=== PATIENT | male | born 1945 | race Caucasian/White ===

== ENCOUNTER 2018-03-27 16:01 | Emergency (ER) | payer MEDICARE ==
[~2018-03-27] VITALS: Ht 177.8 cm; Wt 109.8 kg
[~2018-03-27 16:01] MED LIST: ALDACTONE25 MG PO; CLINDAMYCIN HC300 MG PO; CYCLOBENZAPRINE10 MG PO; FLONASE ALLERG9.9 ML NS; FLUTICASONE PRO15 GM TOP; LEVAQUIN500 MG PO; LEVOTHYROXINE25 MCG PO; LEVOTHYROXINE88 MCG PO; LISINOPRIL10 MG PO; LISINOPRIL5 MG PO; LORATADINE10 MG PO; METOPROLOL SUCC25 MG PO; MULTI VITAMIN1 EACH PO; NORCO 5-325 TA1 EACH PO; PREDNISONE20 MG PO; PROVENTIL HFA6.7 GM INH; SPIRIVA18 MCG INH; ST JOSEPH ASPIR81 MG PO; VITAMIN D5000 UNIT PO; ZITHROMAX500 MG PO
[2018-03-27] MEDS ORDERED: ENTRESTO 24 MG1 EACH PO (16:15)
--- NOTE | 2018-03-28 12:41 | EKG ---
[facility] [address] [place] [address] Signed Atrial-sensed ventricular-paced rhythm Abnormal ECG When compared with ECG of 20-JAN-2017 20:02, Vent. rate has decreased BY 8 BPM Confirmed by HAYDEN COTTON MD ([id number]) on 03/28/2018 12:40:53 PM Electronically Signed By: HAYDEN COTTON MD 03/28/18 1241 PATIENT NAME: EBERFRANCI MICHAEL Electrocardiogram DATE OF : 49 PHYSICIAN: HAYDEN COTTON MD REPORT #: [id number] REPORT IS CONFIDENTIAL AND NOT TO BE RELEASED WITHOUT AUTHORIZATION
== END 2018-03-27 19:14 | disposition home or self-care (01) ==
LOC: ED 16:01
DX: I95.2 Hypotension due to drugs (principal); T50.905A Adverse effect of unspecified drugs, medicaments and biological substances, initial encounter; I10 Essential (primary) hypertension; Z88.5 Allergy status to narcotic agent; Z88.8 Allergy status to other drugs, medicaments and biological substances; Z88.0 Allergy status to penicillin; Z79.899 Other long term (current) drug therapy; Z79.82 Long term (current) use of aspirin
CPT/HCPCS: 71046; 80053; 81001; 84484; 85025; 93005; 93010; 96360; 99285; J7030

== ENCOUNTER 2018-05-13 16:47 | Emergency (ER) | payer MEDICARE, OTHER ==
[~2018-05-13] VITALS: Ht 177.8 cm; Wt 108.5 kg
--- OUTSIDE RECORDS SUMMARY | ~2018-05-13 | XMS | Encounter Summary ---
Demographics + + + | Address | [address] | | | [place] [address] | + + + | Home Phone | | + + + | Preferred Language | Unknown | + + + | Marital Status | | + + + | Hindu Affiliation | Unknown | + + + | Race | Unknown | + + + | Ethnic Group | Unknown | + + + Author + + + | Author | [facility] | + + + | Organization | [facility] | + + + | Address | Unknown | + + + | Phone | Unavailable | + + + Support + + +---------+ + | Name | Relationship | Address | Phone | + + +---------+ + | Champ Abraham | ECON | Unknown | | + + +---------+ + Care Team Providers + +------+ + | Care Test Fixture Designer Name | Role | Phone | + +------+ + | Carla Juarez PA-C | PCP | | + +------+ + Encounter Details +--------+ + + + + | Date | Type | Department | Care Team | Description | +--------+ + + + + | 04/29/ | Documentati | [facility] | Indira Aamro, | | | 2018 | on Only | Neuro[facility] | MD Snatos Patel | | | | | [address] | [place] | | | | | [place] | [address] | | | | | [address] | | | | | | [phone] | | | +--------+ + + + [...] + + + as of this encounter Progress Notes Eugene Susanne N - 04/29/2018 3:30 PM PDTAnna referral- [facility] this enc ounter Plan of Treatment +--------+ + + + + | Date | Type | Specialty | Care Team | Description | +--------+ + + + + | 05/15/ | Documentati | Cardiology | | | | 2017 | on Only | | | | +--------+ + + + + | 05/15/ | Office | Cardiology | Gretchen Joy, | | | 2017 | Visit | | MD Santos [address]zo | | | | | | Dr [address], | | | | | | [place] [address] | | | | | | [phone] | | | | | | | | +--------+ + + + + | 06/05/ | Office | Pulmonology | Khalif Chambers | | | 2017 | Visit | | Joshua Boyle MD [address] | | | [address] | | | | | | [place] [address] | | | | | | [phone] | | | | | | | | +--------+ + + + + | 09/05/ | Office | Neurology | Indira Amaro, | | | 2018 | Visit | | [address] | | | | | | [place] | | | | | | [address] | | | | | | | | +--------+ + + + + as of this encounter Visit Diagnoses Not on filein this encounter"
--- OUTSIDE RECORDS SUMMARY | ~2018-05-13 | XMS | Encounter Summary ---
Demographics + + + | Address | [address] | | | [place] [address] | + + + | Home Phone | | + + + | Preferred Language | Unknown | + + + | Marital Status | | + + + | Spiritism Affiliation | Unknown | + + + | Race | Unknown | + + + | Ethnic Group | Unknown | + + + Author + + + | Author | [facility] | + + + | Organization | [facility] | + + + | Address | Unknown | + + + | Phone | Unavailable | + + + Support + + +---------+ + | Name | Relationship | Address | Phone | + + +---------+ + | Champ Abraham | ECON | Unknown | | + + +---------+ + Care Team Providers + +------+ + | Care Diabetes Clinical Manager Name | Role | Phone | + +------+ + | Carla Juarez PA-C | PCP | | + +------+ + Reason for Visit + + + | Reason | Comments | + + + | Cardiac | remote | | Resynchronization | | | Therapy - | | | Defibrillator | | + + + Encounter Details +--------+ + + + + | Date | Type | Department | Care Team | Description | +--------+ + + + + | 03/06/ | Documentati | [facility] | Fransisca Shoemaker Tamar | Cardiac | | 2018 | on Only | Cardiology [place] | | Resynchronization | | | | [address] | | Therapy - | | | | [place], [place] | | Defibrillator | | | | [address] | | (remote) | | | | [phone] | | | +--------+ + + + [...] + + as of this encounter Progress Fransisca Choi - 03/06/2018 8:00 AM PDTFormatting of this note may be different from tonya graham. ICD REMOTE INTERROGATION REPORT Name: Jared Abraham PCP: Carla Juarez : 1945 Primary cardiology provider: Gretchen Joy Primary electrophysiology provider: Constantin Chavez Device painter helper: [employer] Device type: Biventricular Battery Longevity: 5.5 yrs 2.98V RV Pacin.5% BiV Pacin.9% INTERROGATION RESULTS: Please see the full interrogation report attached Known history of atrial flutter or atrial fibrillation: No Current antithrombotic therapy including: N/A Mode switches: None. VT/VF Detections: None. Lead function: Lead impedance and threshold value trends have been reviewed and are stable. CHF: Congestive heart failure parameters and trends have been reviewed and slight increase, CHF nurse notified. Follow up: The next scheduled interrogation will be in 5 weeks via remote transmission. Additional comments: None. IMPRESSION: 1. Normal ICD function. 2. ATRIAL DEVICE FINDINGS: No atrial fibrillation/flutter noted. 3. No VT/VF therapies have been given since the last interrogation. Testing reviewed by: rough rice grader Fransisca Shoemaker , [facility] Cardiology Associated attestation - Mary Tipton NP - 03/11/2018 9:59 AM PDTAgree with interpretatio MORRO Alcantara in this encounter Plan of Treatment +--------+ [...] 2017 | Visit | | MD Santos Patel | | | | | | Dr [address], | | | | | | [place] [address] | | | | | | [phone] | | | | | | | | +--------+ + + + + | 06/05/ | Office | Pulmonology | Khalif Chambers | | | 2017 | Visit | | Joshua Boyle MD [address] | | | [address] | | | | | | [place] [address] | | | | | | [phone] | | | | | | | | +--------+ + + + + | 09/05/ | Office | Neurology | Indira Amaro, | | | 2018 | Visit | | MD Santos Patel | | | | | | [address] [place] [place] | | | | | | [address] | | | | | | | | +--------+ + + + + as of this encounter Visit Diagnoses + + | Diagnosis | + + | Non-ischemic cardiomyopathy - Primary | + + | Other primary cardiomyopathies | + +"
--- OUTSIDE RECORDS SUMMARY | ~2018-05-13 | XMS | Clinical Summary ---
Demographics + + + | Address | [address] | | | [place] [address] | + + + | Home Phone | | + + + | Preferred Language | Unknown | + + + | Marital Status | | + + + | Quaker Affiliation | Unknown | + + + | Race | Unknown | + + + | Ethnic Group | Unknown | + + + Author + + + | Author | [facility] | | | and [place] | + + + | Organization | [facility] | | | and [place] | + + + | Address | Unknown | + + + | Phone | Unavailable | + + + Support + + +---------+ + | Name | Relationship | Address | Phone | + + +---------+ + | Champ Velázquez | ECON | Unknown | | + + +---------+ + | JaradRadha | ECON | Unknown | | + + +---------+ + Care Team Providers + +------+ + | Care Call Center Supervisor Name | Role | Phone | + +------+ + | Carla Juarez | PP | | | Ondina JARVIS | | | + +------+ + Allergies [...] + + + Current Medications + + +---------+---------+------+------+-------+ | Prescription | Sig. | Disp. | Refills | Star | End | Statu | | | | | | t | Date | s | | | | | | Date | | | + + +---------+---------+------+------+-------+ | fluticasone | 1 spray by Nasal | | | | | Activ | | (FLONASE) 50 | route Daily. | | | | | e | | mcg/nasal spray | | | | | | | + + +---------+---------+------+------+-------+ | spironolactone | Take 25 mg by mouth | | | | | Activ | | (ALDACTONE) 25 mg | Daily. 1/2 tab daily | | | | | e | | tablet | | | | | | | + + +---------+---------+------+------+-------+ | metoprolol | Take 25 mg by mouth | | | | | Activ | | tartrate (LOPRESSOR) | Daily. | | | | | e | | 25 mg tablet | | | | | | | + + +---------+---------+------+------+-------+ | aspirin 81 mg EC | Take 81 mg by mouth | | | | | Activ | | tablet | Daily. | | | | | e | + + +---------+---------+------+------+-------+ | levothyroxine | Take one tablet | | | 02/1 | | Activ | | (SYNTHROID, | daily | | | 5/20 | | e | | LEVOTHROID) 75 MCG | | | | 16 | | | | tablet | | | | | | | + + +---------+---------+------+------+-------+ | tiotropium | Inhale contents of | 30 | 5 | 03/0 | | Activ | | (SPIRIVA HANDIHALER) | one capsule once | capsule | | 4/20 | | e | | 18 mcg inhalation | daily (do not | | | 16 | | | | capsule | swallow capsules) | | | | | | + + +---------+---------+------+------+-------+ | cetirizine | Take one tablet | | | | | Activ | | (ZYRTEC) 10 mg | daily | | | | | e | | tablet | | | | | | | + + +---------+---------+------+------+-------+ | albuterol 90 | Inhale 2 puffs into | | | | | Activ | | mcg/puff inhaler | the lungs every 6 | | | | | e | | | hours as needed for | | | | | | | | Wheezing. | | | | | | + + +---------+---------+------+------+-------+ Active Problems + + + | Problem [...] + + + +---+ | Non-ischemic cardiomyopathy (HCC) | | + +---+ + + | [...] | + + +------+ + | Ulcer Disease | Mother | | | + + [...] | | | | | (#1) | 8 | | | + + + + + Results Not on filefrom Last 3 Months Insurance + +--------+ +--------+ +---------+ | Payer | Benefi | Subscriber | Type | Phone | Address | | | t Plan | ID | | | | | | / | | | | | | | Group | | | | | + +--------+ +--------+ +---------+ | MEDICARE | MEDICA | [id number] | Medica | [phone] | | | RE | | re | [phone] | | | | PART A | | | | | | | AND B | | | | | + +--------+ +--------+ +---------+ | [employer] | TRANSA | [id number] | Indemn | | | | INSURANCE | MERICA | | ity | | | | | LIFE | | | | | | | MS | | | | | + +--------+ +--------+ +---------+ + +--------+ +--------+ + + | Guarantor Name | Accoun | Relation to | Date | Phone | Billing Address | | | t Type | Patient | of | | | | | | | | | | + +--------+ +--------+ + + | FRANCI VELÁQZUEZ | Person | Self [birth year] | Home: | [address] | | MICHAEL | al/Fam | | 1945 | [phone] [place] [address] | | | chas | | | 1964 | | + +--------+ +--------+ + +
--- OUTSIDE RECORDS SUMMARY | ~2018-05-13 | XMS | Clinical Summary ---
Demographics + + + | Address | [address] | | | [place] [address] | + + + | Home Phone | | + + + | Preferred Language | Unknown | + + + | Marital Status | | + + + | Christianity Affiliation | Unknown | + + + | Race | Unknown | + + + | Ethnic Group | Unknown | + + + Author + + + | Author | Bernarda FST21 | + + + | Organization | [facility] | + + + | Address | Unknown | + + + | Phone | Unavailable | + + + Support + + +---------+ + | Name | Relationship | Address | Phone | + + +---------+ + | Champ Velázquez | ECON | Unknown | | + + +---------+ + Care Team Providers + +------+ + | Care Cancer Program Consultant Name | Role | Phone | + +------+ + | Carla Juarez PA-C | PP | | + +------+ + Allergies + + + + + + | Active Allergy | Reactions | Severity | Noted | Comments | | | | | Date | | + + + + + + | Codeine | Anaphylaxis, Other | High | 11/12/19 | Heart stops | | | (See Comments) | | 14 | | + + + + + + | Meperidine | Other (See | High | 11/12/19 | Heart stops | | | Comments), | | 14 | | | | Angioedema | | | | + + + + + + | Nitroglycerin | Other (See Comments) | Medium | 11/12/19 | Liquid nitro Heart | | | | | 14 | stops | + + + + + + | Orphenadrine | Anaphylaxis, Other | High | 11/12/19 | Heart stops | | | (See Comments) | | 14 | | + + + + + + | Penicillins | Rash | Medium | 11/12/19 | | | | | | 14 | | + + + + + + | Oxycodone-Aspirin | Other (See Comments) | High | 09/17/19 | Heart Stops | | | | | 15 | | + + + + + [...] | | | Activ | | (SYNTHROID) 75 MCG | every morning | | | | | e | | tablet | before breakfast. Pt | | | | | | | | taking 88 mcg daily | | | | | | + + +--------+---------+------+------+-------+ | fluticasone | 1 spray by Each Nare | | | | | Activ | | (FLONASE) 50 MCG/ACT | route daily. | | | | | e | | nasal | | | | | | | + + +--------+---------+------+------+-------+ | Cholecalciferol | Take 5,000 Int'l | | | | | Activ | | (VITAMIN D3) [id number] | Units by mouth | | | | | e | | UNITS | daily. | | | | | | | CAPSIndications: | | | | | | | | once a week | | | | | | | + + +--------+---------+------+------+-------+ | loratadine | Take 10 mg by mouth | | | | | Activ | | (CLARITIN) 10 MG | daily. | | | | | e | | tablet | | | | | | | + + +--------+---------+------+------+-------+ | meloxicam (MOBIC) | Take 15 mg by mouth | | | | | Activ | | 15 MG tablet | daily. | | | | | e | + + +--------+---------+------+------+-------+ | lisinopril | TAKE TWO TABLETS BY | 60 | 2 | 04/3 | | Activ | | (ZESTRIL) 2.5 MG | MOUTH ONCE DAILY | tablet | | 0/20 | | e | | tablet | (HOLD FOR 2 | | | 18 | | | | | DAYS-START IF BLOOD | | | | | | | | PRESSURE STABLE | | | | | | | | AFTER THAT) | | | | | | + + +--------+---------+------+------+-------+ | metFORMIN | Take 500 mg by mouth | | | | | Activ | | (GLUCOPHAGE) 500 MG | daily. | | | | | e | | tablet | | | | | | | + + +--------+---------+------+------+-------+ | | Take 1 tablet by | 60 | 3 | 05/1 | | Activ | | sacubitril-valsartan | mouth 2 (two) times | tablet | | 6/20 | | e | | (ENTRESTO) 24-26 MG | daily. | | | 18 | | | | per tablet | | | | | | | + + +--------+---------+------+------+-------+ | metoprolol | TAKE ONE TABLET BY | 60 | 1 | 05/2 | | Activ | | (TOPROL-XL) 25 MG 24 | MOUTH ONCE DAILY | tablet | | 05/09 | | e | | hr tablet | | | | 18 | | | + + +--------+---------+------+------+-------+ | furosemide (LASIX) | TAKE ONE TABLET BY | 60 | 2 | / | | Activ | | 20 MG tablet | MOUTH ONCE DAILY | tablet | | 01/06 | | e | | | NEEDED | | | 18 | | | + + +--------+---------+------+------+-------+ Active Problems + + + | Problem | Noted Date | + + + | Morbid obesity (HCC) | 07/10/2017 | + + + + + | Overview: Weight loss was strongly encouraged. He needs to | | get involved in an exercise program. 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 Chiang in January | | 2009.Generator change by Dr. Delarosa in 2014 viva xt PICKER MACHINE OPERATOR D MDT | | number [id number].Patient has a 5076 atrial lead Medtronic. 6947 | | Sprint Quattro Medtronic RV lead and 4195 Starfix Medtronic LV | | lead. All leads were implanted in January 2010. Excellent chronic | | pacing and sensing thresholds were seen in all leads. | | Nonsustained VT was seen lasting for one second at 207 bpm and 3 | | atrial high rate episodes were also seen. Nothing sustained. | | Appropriate device function was seen. | + + + + + | Non-sustained ventricular tachycardia | 01/21/2017 | + + + | MOISÉS (obstructive [...] concentrator. Definitely needs to lose | | weight. | + + + + + | Nocturnal hypoxemia | 03/24/2016 | + + + | Dyspnea on exertion | 03/24/2016 | + + + | Allergic rhinitis | 03/24/2016 | + + + | Non-ischemic cardiomyopathy | 05/27/2015 | + + + + + | Overview: A cardiac catheterization in October 2008 revealed no | | significant coronary disease and the ejection fraction on the | | left ventriculogram was 15-20%. He had a left bundle branch | | block with a QRS duration of over 160 ms. A PICKER MACHINE OPERATOR defibrillator | | was subsequently placed by Dr. Chiang in 2009.Did not tolerate | | carvedilol because of hypotension. Have recommended increasing | | metoprolol succinate to 50 mg per day. The ejection fraction was | | 35% in April 2015. | + + + + + | S/P AAA repair | 09/24/2014 | + + + Resolved Problems + + + + | Problem | Noted | Resolved | | | Date | Date | + + + + | Hypotension | 01/22/20 | | | | 17 | 8 | + + + + + + | Overview: Has not tolerated much afterload reduction. | + + + + + + | AAA (abdominal aortic aneurysm) | 09/24/19 | | | | 15 | 8 | + + + + Encounters +--------+ + + + + | Date | Type | Specialty | Care Team | Description | +--------+ + + + + | 04/29/ | Documentati | | Indira Amaro, | | | 2017 | on Only | | MD | | +--------+ + + + + | 04/16/ | Ancillary | | Leanne Penaloza MD | Transient cerebral | | 2018 | Orders | | | ischemia, | | | | | | unspecified type | +--------+ + + + + | 04/10/ | Documentati | | Emely Simpson | Cardiac | | 2017 | on Only | | | Resynchronization | | | | | | Therapy - | | | | | | Defibrillator | +--------+ + + + + | 03/26/ | Telephone | | Sydeny Verma | | | 2017 | | | SANCHEZ Torrez | | +--------+ + + + + | 03/13/ | Refill | | Gretchen Joy, | Medication Refill | | 2017 | | | MD | | +--------+ + + + + | 03/13/ | Telephone | | Noreen Cohen | | | 2018 | | | ONI Hooks | | +--------+ + + + + | 03/06/ | Documentati | | Fransisca Shoemaker | Cardiac | | 2018 | on Only | | | Resynchronization | | | | | | Therapy - | | | | | | Defibrillator | | | | | | (remote) | +--------+ + + + + from Last 3 Months Family History + + +------+ + | [...] + | Blood Pressure | 102/50 | 01/02/2018 3:14 PM PDT | + + + + | Pulse | 103 | 01/02/2018 3:14 PM PDT | + + + + | Temperature | 36.4 C (97.6 F) | 06/13/2017 2:57 PM PDT | + + + + | Respiratory Rate | 18 | 03/16/2017 12:22 PM PDT | + + + + | Oxygen Saturation | 92% | 01/02/2018 3:14 PM PDT | + + + + | Inhaled Oxygen | - | - | | Concentration | | | + + + + | Weight | 114.2 kg (251 lb | 01/02/2018 3:14 PM PDT | | | 12.8 oz) | | + + + + | Height | 177.8 cm (5' 10") | 01/02/2018 3:14 PM PDT | + + + + | Body Mass Index | 36.13 | 01/02/2018 3:14 PM PDT | + + + + Plan of Treatment +--------+ + + + + | Date | Type | Specialty | Care Team | Description | +--------+ + + + + | 05/15/ | Documentati | | | | | 2017 | on Only | | | | +--------+ + + + + | 05/15/ | Office | | Gretchen Joy, | | | 2017 | Visit | | [address] | | | | | | Dr [place], | | | | | | [place] [address] | | | | | | [phone] | | | | | | | | +--------+ + + + + | 06/05/ | Office | | Khalif Chambers | | | 2017 | Visit | | Joshua Boyle MD [address] | | | | | | [address] | | | | | | [place] [address] | | | | | | [phone] | | | | | | | | +--------+ + + + + | 09/05/ | Office | | Indira Amaro, | | | 2018 | Visit | | [address] | | | | | | [place] | | | | | | [address] | | | | | | | [...] / Lot | + +--------+------+ +--------+--------+--------+ | Bomb Technician-D-05/17/2015Implanted: | Cardia | | MEDTRONIC - | | | | | 05/17/2015 by Uvaldo Delarosa | norm | | MEDT | | | /[id number] [...] | [id number] / | + +--------+------+ +--------+--------+--------+ Procedures + +--------+ + + + | Procedure Name | Priori | Date/Time | Associated Diagnosis | Comments | | | ty | | | | + +--------+ + + + | ECHO OUTSIDE | Routin | 04/16/2018 | Transient cerebral | Results for this | | INTERPRETATION | e | 8:10 AM | ischemia, | procedure are in the | | STANDARD | | PDT | unspecified type | results section. | + +--------+ + + + from Last 3 Months Results ECHO outside interpretation standard (04/16/2018 8:10 AM) + + + | Impressions | Performed At | + + + | 1. Overall left ventricular systolic function is moderately impaired | [facility] | | with, an EF between 35 - 40%. 2. The diastolic filling pattern | RADIOLOGY | | indicates impaired relaxation consistent with [...] to the previous echocardiographic study, done 09/25/17, there | | | are minor changes noted, as detailed below. | | + + + + + + | Narrative | Performed At | + + + | Patient Name: FRANCI VELÁZQUEZ Date of : 1945 | [facility] | | Performing Physician: LIZBET LYNN, | RADIOLOGY | | MD | | | INDICATIONS tia CONCLUSIONS 1. [...] done 09/25/17, there are minor changes noted, | | | as detailed below. FINDINGS -------- ECG rhythm: Sinus rhythm. | | | ECG rhythm: Ventricularly paced rhythm. Study: A 2-dimensional | | | transthoracic echocardiogram with m-mode, spectral and color flow | | | Doppler was perfomed. Study: This was a technically adequate study. | | | Left Ventricle: Overall left ventricular systolic function is | | | moderately impaired with, an EF between 35 - 40%, not significantly | | | changed from an EF of 30 - 35% on the prior study. Left Ventricle: | | | The left ventricle cavity size is normal, decreased in size (it was | | | mildly enlarged, measured at 6.3 cm at end-diastole) compared to the | | | previous exam. Left Ventricle: Left ventricular wall thickness is | | | normal. Left Ventricle: There is moderate global hypokinesis of LV | | | contractility. Left Ventricle: The diastolic filling pattern | | | indicates impaired relaxation consistent with mild dysfunction (Grade | | | I). Right Ventricle: The RV was not well visualized, but on limited | | | views, it appears to be normal in size, with normal systolic function. | | | Right Ventricle: Pacer/ICD wire seen. Left Atrium: The left atrium | | | is moderately dilated. This is slightly increased in size (4.5 cm, | | | LA volume index 37.88) compared to the previous exam. Right Atrium: | | | The right atrium is moderately enlarged, increased from mild RA | | | enlargement (although no measurements were reported on the prior | | | study). Right Atrium: Pacemaker wire seen in the right atrial | | | cavity. Aortic Valve: The aortic valve is not fully visualized, but | | | on limited views appears to most likely be trileaflet and structurally | | | normal. Aortic Valve: There is no evidence of aortic regurgitation | | | (there was trace AI on the prior study). Aortic Valve: There is no | | | evidence of aortic stenosis. Mitral Valve: The mitral valve is | | | normal. Mitral Valve: No mitral regurgitation (there was trace MR on | | | the prior study). Mitral Valve: No evidence of MVP. Tricuspid | | | Valve: The tricuspid valve appears structurally normal. Tricuspid | | | Valve: Trace tricuspid regurgitation present. Tricuspid Valve: | | | Pulmonary artery systolic pressure could not be assessed due to the | | | absence of adequate TR jet. Pulmonic Valve: The pulmonic valve was | | | not well visualized. Pulmonic Valve: Mild pulmonic regurgitation is | | | present, slightly increased from trace PI on the prior study. | | | Pericardium: There is no pericardial effusion. IVC/Hepatic Veins: The | | | IVC is normal size (1.5-2.5cm) and collapses >50% with sniff, | | | consistent with central venous pressures of 5-10mmHg. Aorta: The | | | aortic root and ascending aorta are normal. The aortic arch was not | | | well visualized. Mass: No mass visualized Thrombus: No clot | | | visualized Thrombus: No vegetation visualized. Septum: No [...] 4.65 cm LA/Ao: 1.21 TAPSE: 2.41 cm | | | AV maxP.90 mmHg AV meanP.40 mmHg AV Vmax: 1.21 | | | m/s AV Vmean: 0.87 m/s AV VTI: 23.83 cm GOPAL Vmax: 3.69 | | | cm2 GOPAL (VTI): 3.60 cm2 AVAI Vmax: 0.00 cm2/m2 AVAI | | | (VTI): 0.00 cm2/m2 LVOT maxP.10 mmHg LVOT meanPG: | | | 1.59 mmHg LVSI Dopp: 37.97 ml/m2 LVSV Dopp: 85.81 ml LVOT | | | Vmax: 0.88 m/s LVOT Vmean: 0.59 m/s LVOT VTI: 16.83 cm | | | MV A Frank: 0.65 m/s MV DecT: 257.92 ms MV E Frank: 0.47 m/s | | | MV E/A Ratio: 0.73 MV PHT: 74.79 ms MVA By PHT: 2.94 | | | cm2 Septal e': 0.04 m/s Septal E/e': 11.67 Lateral e': | | | 0.04 m/s Lateral E/e': 10.11 PV maxP.92 mmHg PV | | | Vmax: 0.99 m/s Button Sawyer: Authenticated by: LIZBET | | | MD SHANE Report Date/Time: -- 94_[id number]_[id number]:9:34 | | + + + + + | Procedure Note | + + | Mike, Rad Results In - 04/16/2018 7:10 PM PDT Patient Name: Silvia VELÁZQUEZ | | of : 1945ccession: [id number] Physician: LIZBET LYNN MD | | INDICATIONS tia | | CONCLUSIONS 1. Overall left ventricular systolic function [...] there are minor changes noted, as detailed below.FINDINGS--------ECG | | rhythm: Sinus rhythm. ECG rhythm: Ventricularly paced rhythm.Study: A 2-dimensional | | transthoracic echocardiogram with m-mode, spectral and color flow Doppler was perfomed. | | Study: This was a technically adequate study.Left Ventricle: Overall left ventricular | | systolic function is moderately impaired with, an EF between 35 - 40%, not significantly | | changed from an EF of 30 - 35% on the prior study. Left Ventricle: The left ventricle | | cavity size is normal, decreased in size (it was mildly enlarged, measured at 6.3 cm at | | end-diastole) compared to the previous exam. Left Ventricle: Left ventricular wall | | thickness is normal. Left Ventricle: There is moderate global hypokinesis of LV | | contractility. Left Ventricle: The diastolic filling pattern indicates impaired | | relaxation consistent with mild dysfunction (Grade I).Right Ventricle: The RV was not | | well visualized, but on limited views, it appears to be normal in size, with normal | | systolic function. Right Ventricle: Pacer/ICD wire seen.Left Atrium: The left atrium is | | moderately dilated. This is slightly increased in size (4.5 cm, LA volume index 37.88) | | compared to the previous exam.Right Atrium: The right atrium is moderately enlarged, | | increased from mild RA enlargement (although no measurements were reported on the prior | | study). Right Atrium: Pacemaker wire seen in the right atrial cavity.Aortic Valve: The | | aortic valve is not fully visualized, but on limited views appears to most likely be | | trileaflet and structurally normal. Aortic Valve: There is no evidence of aortic | | regurgitation (there was trace AI on the prior study). Aortic Valve: There is no | | evidence of aortic stenosis.Mitral Valve: The mitral valve is normal. Mitral Valve: No | | mitral regurgitation (there was trace MR on the prior study). Mitral Valve: No evidence | | of MVP.Tricuspid Valve: The tricuspid valve appears structurally normal. Tricuspid | | Valve: Trace tricuspid regurgitation present. Tricuspid Valve: Pulmonary artery systolic | | pressure could not be assessed due to the absence of adequate TR jet.Pulmonic Valve: | | The pulmonic valve was not well visualized. Pulmonic Valve: Mild pulmonic regurgitation | | is present, slightly increased from trace PI on the prior study.Pericardium: There is no | | pericardial effusion.IVC/Hepatic Veins: The IVC is normal size (1.5-2.5cm) and | | collapses >50% with sniff, consistent with central venous pressures of 5-10mmHg.Aorta: | | The aortic root and ascending aorta are normal. The aortic arch was not well | | visualized.Mass: No mass visualizedThrombus: No clot visualized Thrombus: No vegetation | | visualized.Septum: No ASD observed. Septum: No VSD observed.MEASUREMENTS Ao | | asc: 3.27 cmIVC: 2.44 cmEDV(Teich): 129.10 mlIVSd: 1.16 cmLVIDd: 5.19 cmLVPWd: | | 1.13 cmLVOT Area: 5.09 [id number] Diam: 2.54 cm%FS: 1.72 %EF(Teich): 3.94 | | %ESV(Teich): 124.01 mlLVIDs: 5.10 cmSV(Teich): 5.08 mlLVEF MOD A2C: 36.30 %SV | | MOD A2C: 106.51 mlLVEF MOD A4C: 36.62 %SV MOD A4C: 92.77 mlEF Biplane: 37.21 | | %LVEDV MOD BP: 274.16 mlLVESV MOD BP: 172.13 mlLVEDV MOD A2C: 293.38 mlLVLd A2C: | | 9.16 cmLVEDV MOD A4C: 253.33 mlLVLd A4C: 9.31 cmLVESV MOD A2C: 186.87 mlLVLs A2C: | | 8.32 cmLVESV MOD A4C: 160.55 mlLVLs A4C: 8.32 cmLAESV(A-L): 101.76 mlLAESV | | Index (A-L): 45.03 ml/m2LAAs A2C: 31.66 [id number] A-L A2C: 147.72 mlLALs A2C: | | 5.75 cmLAAs A4C: 21.81 [id number] A-L A4C: 68.38 mlLALs A4C: 5.90 cmRAAs: 25.43 | | [id number] A-L: 100.41 mlRAESV MOD: 92.04 mlRALs: 5.46 cmAo Diam: 3.82 cmLA Diam: | | 4.65 cmLA/Ao: 1.21 TAPSE: 2.41 cmAV maxP.90 mmHgAV meanP.40 mmHgAV | | Vmax: 1.21 m/Fabricio Vmean: 0.87 m/Fabricio VTI: 23.83 cmAVA Vmax: 3.69 cm2AVA (VTI): | | 3.60 [id number] Vmax: 0.00 cm2/m2AVAI (VTI): 0.00 cm2/m2LVOT maxP.10 mmHgLVOT | | meanP.59 mmHgLVSI Dopp: 37.97 ml/m2LVSV Dopp: 85.81 mlLVOT Vmax: 0.88 | | m/sLVOT Vmean: 0.59 m/sLVOT VTI: 16.83 cmMV A Frank: 0.65 m/sMV DecT: 257.92 msMV | | E Frank: 0.47 m/sMV E/A Ratio: 0.73 MV PHT: 74.79 msMVA By PHT: 2.94 [id number] e': | | 0.04 m/sSeptal E/e': 11.67 Lateral e': 0.04 m/sLateral E/e': 10.11 PV maxPG: | | 3.92 mmHgPV Vmax: 0.99 m/sSonographer: Authenticated by: Devan LEE | | Date/Time: -44_[id number]:9:34IMPRESSION:1. Overall left ventricular systolic | | function is moderately impaired with, an EF between 35 - 40%.2. The diastolic filling | | pattern indicates impaired relaxation consistent with mild dysfunction (Grade I).3. The | | RV was not well visualized, but on limited views, it appears to be normal in size, with | | normal systolic function.4. There is moderate bi-atrial enlargement. [...] |PV Vmax: 0.99 m/s | | | |Button Sawyer: | |Authenticated by: LIZBET LYNN MD | |Report Date/Time: -- 81_08-8-8102_97:9:34 | | | |IMPRESSION: | |1. Overall [...] n oted. 7. In comparison to the | |previous echocardiographic study, done 09/25/17, there are minor changes noted, as detailed b tu. | + + + + + + + | Performing | Address | City/State/Zipcode | Phone Number | | Organization | | | | + + + + + | [facility] | [address] | [place] [address] | | + + + + + from Last 3 Months Insurance + +--------+ +------+-------+ + | Payer | Benefi | Subscriber | Type | Phone | Address | | | t Plan | ID | | | | | | / | | | | | | | Group | | | | | + +--------+ +------+-------+ + | MEDICARE | MEDICA | [id number] | | | [address] | | | RE | | | | [place] [phone] | | | IP-OP | | | | | + +--------+ +------+-------+ + | COMMERCIAL OTHER | TRANSA | [id number] | | | | | | MERICA [...] Home: | [address] | | | brinda/Serjio | | 1945 | [phone] | [place] | | | chas | | | 1964 | [phone] | + +--------+ +--------+ + +
--- OUTSIDE RECORDS SUMMARY | ~2018-05-13 | XMS | Clinical Summary ---
Demographics + + + | Address | [address] | | | [place] [address] | + + + | Home Phone | | + + + | Preferred Language | Unknown | + + + | Marital Status | | + + + | Amish Affiliation | Unknown | + + + | Race | Unknown | + + + | Ethnic Group | Unknown | + + + Author + + + | Author | Bernarda Cashsquare | + + + | Organization | [facility] | + + + | Address | Unknown | + + + | Phone | Unavailable | + + + Support + + +---------+ + | Name | Relationship | Address | Phone | + + +---------+ + | Champ Velázquez | ECON | Unknown | | + + +---------+ + Care Team Providers + +------+ + | Care Cashier Credit Name | Role | Phone | + [...] | | Activ | | (VITAMIN D3) [id number] | Units by mouth | | | [...] pickleball, 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 Chiang in January | | 2009.Generator change by Dr. Delarosa in 2014 viva xt RADIOLOGICAL TECHNOLOGIST D MDT | | number [id number].Patient has a 5076 atrial lead Medtronic. 6947 [...] QRS duration of over 160 ms. A RADIOLOGICAL TECHNOLOGIST defibrillator | | was subsequently placed by [...] + | 03/26/ | Telephone | | Sydney Verma | | | 2017 | | [...] [place], | | | | | | [place] [address] | | | | | | [phone] | | | | | | | | +--------+ + + + + | 06/05/ | Office | | Khalif Chambers | | | 2017 | Visit | | Joshua Boyle MD [address] | | | | | | [address] | | | | | | [place] [address] | | | | | | [phone] | | | | | | | | +--------+ + + + + | 09/05/ | Office | | Indira Amaro, | | | 2018 | Visit | | [address] | | | | | | [place] | | | | | | [address] | | | | | | | [...] / Lot | + +--------+------+ +--------+--------+--------+ | Rag Washer-D-05/17/2015Implanted: | Cardia | | MEDTRONIC - | [...] FRANCI VELÁZQUEZ Date of : 1945 | [facility] | | Performing Physician: LIZBET LYNN, [...] PV | | | Vmax: 0.99 m/s Member Certification Manager: Authenticated by: LIZBET | | | MD SHANE Report Date/Time: -- 19_[id number]_37:9:34 | | + + + + + | Procedure Note | + + | Mike, Rad Results In - 04/16/2018 7:10 PM PDT Patient Name: Silvia VELÁZQUEZ | | of : 1945ccession: [id number] Physician: LIZBET LYNN MD | | INDICATIONS [...] cmLVPWd: | | 1.13 cmLVOT Area: 5.09 [id number] Diam: 2.54 cm%FS: 1.72 %EF(Teich): 3.94 | [...] | Index (A-L): 45.03 ml/m2LAAs A2C: 31.66 [id number] A-L A2C: 147.72 mlLALs A2C: | | 5.75 cmLAAs A4C: 21.81 [id number] A-L A4C: 68.38 mlLALs A4C: 5.90 cmRAAs: 25.43 | | [id number] A-L: 100.41 mlRAESV MOD: 92.04 mlRALs: 5.46 cmAo Diam: 3.82 cmLA Diam: | | 4.65 cmLA/Ao: 1.21 TAPSE: 2.41 cmAV maxP.90 mmHgAV meanP.40 mmHgAV | | Vmax: 1.21 m/Fabricio Vmean: 0.87 m/Fabricio VTI: 23.83 cmAVA Vmax: 3.69 cm2AVA (VTI): | | 3.60 [id number] Vmax: 0.00 cm2/m2AVAI (VTI): 0.00 cm2/m2LVOT maxP.10 mmHgLVOT | | meanP.59 mmHgLVSI Dopp: 37.97 ml/m2LVSV Dopp: 85.81 mlLVOT Vmax: 0.88 | | m/sLVOT Vmean: 0.59 m/sLVOT VTI: 16.83 cmMV A Frank: 0.65 m/sMV DecT: 257.92 msMV | | E Frank: 0.47 m/sMV E/A Ratio: 0.73 MV PHT: 74.79 msMVA By PHT: 2.94 [id number] e': | | 0.04 m/sSeptal E/e': 11.67 Lateral e': 0.04 m/sLateral E/e': 10.11 PV maxPG: | | 3.92 mmHgPV Vmax: 0.99 m/sSonographer: Authenticated by: Devan LEE | | Date/Time: -25_[id number]_[id number]:9:34IMPRESSION:1. Overall left ventricular systolic | | function [...] m/s | |AV VTI: 23.83 cm | |GOPLA Vmax: 3.69 cm2 | |GOPAL (VTI): 3.60 [...] |PV Vmax: 0.99 m/s | | | |Member Certification Manager: | |Authenticated by: LIZBET LYNN MD | |Report Date/Time: -- 22_17-8-0621_17:9:34 | | | |IMPRESSION: | |1. Overall [...] [facility] | [address] | [place] [address] | | + + + + + [...] +------+-------+ + | MEDICARE | MEDICA | [id number] | | | [address] | | | RE | | | | [place] [address] | | | IP-OP | | | | | + +--------+ +------+-------+ + | COMMERCIAL OTHER | TRANSA | [id number] | | | | | | MERICA [...] | chas | | | 1964 | [phone] | + +--------+ +--------+ + +
--- OUTSIDE RECORDS SUMMARY | ~2018-05-13 | XMS | Encounter Summary ---
Demographics + + + | Address | [address] | | | [place] [address] | + + + | Home Phone | | + + + | Preferred Language | Unknown | + + + | Marital Status | | + + + | Judaism Affiliation | Unknown | + + + | Race | Unknown | + + + | Ethnic Group | Unknown | + + + Author + + + | Author | [facility] [employer] [facility] | + + + | Organization | [facility] | + + + | Address | Unknown | + + + | Phone | Unavailable | + + + Support + + +---------+ + | Name | Relationship | Address | Phone | + + +---------+ + | Champ Abraham | ECON | Unknown | | + + +---------+ + Care Team Providers + +------+ + | Care Contact Person Name | Role | Phone | + +------+ + | Carla Juarez PA-C | PCP | | + +------+ + Reason for Visit + + + | Reason | Comments | + + + | Cardiac | | | Resynchronization | | | Therapy - | | | Defibrillator | | + + + Encounter Details +--------+ + + + + | Date | Type | Department | Care Team | Description | +--------+ + + + + | 04/10/ | Documentati | [facility] | Emely Simpson | Cardiac | | 2018 | on Only | Cardiology [place] | | Resynchronization | | | | [address] | | Therapy - | | | | [place], [place] | | Defibrillator | | | | [address] | | | | | | [phone] | | | +--------+ + + + [...] [place], | | | | | | [place] [address] | | | | | | [phone] | | | | | | | | +--------+ + + + + | 06/05/ | Office | Pulmonology | Khalif Chambers | | | 2017 | Visit | | MD Santos Mendoza | | | | | | [address] | | | | | | [place] [address] | | | | | | [phone] | | | | | | | | +--------+ + + + + | 09/05/ | Office | Neurology | Indira Amaro, | | | 2018 | Visit | | MD Santos Patel | | | | | | [place] | | | | | | [address] | | | | | | | | +--------+ + + + + as of this encounter Visit Diagnoses + + | Diagnosis | + + | Non-ischemic cardiomyopathy - Primary | + + | Other primary cardiomyopathies | + +"
--- OUTSIDE RECORDS SUMMARY | ~2018-05-13 | XMS | Encounter Summary ---
Demographics + + + | Address | [address] | | | [place] [address] | + + + | Home Phone | | + + + | Preferred Language | Unknown | + + + | Marital Status | | + + + | Islam Affiliation | Unknown | + + + | Race | Unknown | + + + | Ethnic Group | Unknown | + + + Author + + + | Author | [facility] [employer] | + + + | Organization | [facility] | + + + | Address | Unknown | + + + | Phone | Unavailable | + + + Support + + +---------+ + | Name | Relationship | Address | Phone | + + +---------+ + | Champ Abraham | ECON | Unknown | | + + +---------+ + Care Team Providers + +------+ + | Care Sql Tech Name | Role | Phone | + +------+ + | Carla Juarez PA-C | PCP | | + +------+ + Encounter Details +--------+ + + + + | Date | Type | Department | Care Team | Description | +--------+ + + + + | 03/13/ | Telephone | [facility] | Noreen Cohen | | | 2017 | | Cardiology [place] | ONI [facility]s | | | | | [address] | | | | | | [place] | | | | | | [address] | | | | | | [phone] | | | +--------+ + + + [...] Cardiology | Gretchen Joy, | | | 2018 | Visit | | MD Santos Patel | | | | | | Dr [place], | | | | | | [place] [address] | | | | | | [phone] | | | | | | | | +--------+ + + + + | 06/05/ | Office | Pulmonology | Khalif Chambers | | | 2017 | Visit | | MD Santos Mendoza | | | | | | [address] | | | | | | [place] [address] | | | | | | [phone] | | | | | | | | +--------+ + + + + | 09/05/ | Office | Neurology | Indira Amaro, | | | 2018 | Visit | | MD Santos Patel | | | | | | [place] | | | | | | [address] | | | | | | | | +--------+ + + + + as of this encounter Visit Diagnoses Not on filein this encounter"
--- OUTSIDE RECORDS SUMMARY | ~2018-05-13 | XMS | Encounter Summary ---
Demographics + + + | Address | [address] | | | [place] [address] | + + + | Home Phone | | + + + | Preferred Language | Unknown | + + + | Marital Status | | + + + | Yazdanism Affiliation | Unknown | + + + | Race | Unknown | + + + | Ethnic Group | Unknown | + + + Author + + + | Author | [facility] [employer] | + + + | Organization | [facility] | + + + | Address | Unknown | + + + | Phone | Unavailable | + + + Support + + +---------+ + | Name | Relationship | Address | Phone | + + +---------+ + | Champ Abraham | ECON | Unknown | | + + +---------+ + Care Team Providers + +------+ + | Care Director Clinical Research Name | Role | Phone | + +------+ + | Carla Juarez PA-C | PCP | | + +------+ + Encounter Details +--------+ + + + + | Date | Type | Department | Care Team | Description | +--------+ + + + + | 04/29/ | Documentati | [facility] | Indira Amaro, | | | 2018 | on Only | Neuroscience Center | MD Santos Patel | | | | | [address] | [place] | | | | | [place] | [address] | | | | | [address] | | | | | | [phone] | | | +--------+ + + + [...] as of this encounter Progress Notes Eugene Ssuanne N - 04/29/2018 3:30 PM PDTAnna referral- [facility] this enc ounter Plan of [...] [place], | | | | | | [place] [address] | | | | | | [phone] | | | | | | | | +--------+ + + + + | 06/05/ | Office | Pulmonology | Khalif Chambers | | | 2017 | Visit | | Joshua Boyle MD [address] | | | | | | [address] | | | | | | [place] [address] | | | | | | [phone] | | | | | | | | +--------+ + + + + | 09/05/ | Office | Neurology | Indira Amaro, | | | 2018 | Visit | | [address] | | | | | | [place] | | | | | | [address] | | | | | | | | +--------+ + + + + as of this encounter Visit Diagnoses Not on filein this encounter"
--- OUTSIDE RECORDS SUMMARY | ~2018-05-13 | XMS | Encounter Summary ---
Demographics + + + | Address | [address] | | | [place] [address] | + + + | Home Phone | | + + + | Preferred Language | Unknown | + + + | Marital Status | | + + + | Yazidi Affiliation | Unknown | + + + | Race | Unknown | + + + | Ethnic Group | Unknown | + + + Author + + + | Author | [facility] [employer] | + + + | Organization | [facility] | + + + | Address | Unknown | + + + | Phone | Unavailable | + + + Support + + +---------+ + | Name | Relationship | Address | Phone | + + +---------+ + | Champ Velázquez | ECON | Unknown | | + + +---------+ + Care Team Providers + +------+ + | Care Sheet Metal Roofer Name | Role | Phone | + +------+ + | Carla Juarez PA-C | PCP | | + +------+ + Encounter Details +--------+ + + + + | Date | Type | Department | Care Team | Description | +--------+ + + + + | 04/16/ | Ancillary | [facility] | Leanne Penaloza MD | Transient cerebral | | 2018 | Orders | ECHO | [address] | ischemia, | | | | | [place], [place] | unspecified type | | | | | [id number] | | | | | | | [...] 2017 | Visit | | MD Santos [address]arezethals | | | | | | Dr [place], | | | | | | [place] [address] | | | | | | [phone] | | | | | | | | +--------+ + + + + | 06/05/ | Office | Pulmonology | Khalif Chambers | | | 2017 | Visit | | Joshua Boyle MD [address] | | | | | | [address] [place] | | | | | | [place] [address] | | | | | | [phone] | | | | | | | | +--------+ + + + + | 09/05/ | Office | Neurology | Indira Amrao, | | | 2018 | Visit | | [address] | | | | | | [place] | | | | | | [address] | | | | | | | | +--------+ + + + + as of this encounter Results ECHO outside interpretation standard (04/16/2018 8:10 [...] FRANCI VELÁZQUEZ Date of : 1945 | [facility] | | Performing Physician: LIZBET LYNN, | RADIOLOGY | | | | | INDICATIONS tia [...] PV | | | Vmax: 0.99 m/s Haulpak Driver: Authenticated by: LIZBET | | | MD SHANE Report Date/Time: 20_[id number]:9:34 | | + + + + + | Procedure Note | + + | David Mckeon In - 04/16/2018 7:10 PM PDT Patient Name: Silvia VELÁZQUEZ | | of : 7Accession: [id number] Physician: LIZBET LYNN MD | | INDICATIONS [...] cmLVPWd: | | 1.13 cmLVOT Area: 5.09 ux2HZSE Diam: 2.54 cm%FS: 1.72 %EF(Teich): 3.94 | [...] | Index (A-L): 45.03 ml/m2LAAs A2C: 31.66 gg5TTKPC A-L A2C: 147.72 mlLALs A2C: | | 5.75 cmLAAs A4C: 21.81 lk3LAPKN A-L A4C: 68.38 mlLALs A4C: 5.90 cmRAAs: 25.43 | | vl2OITQY A-L: 100.41 mlRAESV MOD: 92.04 mlRALs: 5.46 cmAo Diam: 3.82 cmLA Diam: | | 4.65 cmLA/Ao: 1.21 TAPSE: 2.41 cmAV maxP.90 mmHgAV meanP.40 mmHgAV | | Vmax: 1.21 m/Fabricio Vmean: 0.87 m/Fabricio VTI: 23.83 cmAVA Vmax: 3.69 cm2AVA (VTI): | | 3.60 kf2BFPN Vmax: 0.00 cm2/m2AVAI (VTI): 0.00 cm2/m2LVOT maxP.10 mmHgLVOT | | meanP.59 mmHgLVSI Dopp: 37.97 ml/m2LVSV Dopp: 85.81 mlLVOT Vmax: 0.88 | | m/sLVOT Vmean: 0.59 m/sLVOT VTI: 16.83 cmMV A Frank: 0.65 m/sMV DecT: 257.92 msMV | | E Frank: 0.47 m/sMV E/A Ratio: 0.73 MV PHT: 74.79 msMVA By PHT: 2.94 nl8Qkbxze e': | | 0.04 m/sSeptal E/e': 11.67 Lateral e': 0.04 m/sLateral E/e': 10.11 PV maxPG: | | 3.92 mmHgPV Vmax: 0.99 m/sSonographer: Authenticated by: Devan LEE | | Date/Time: -- 62_[id number]:9:34IMPRESSION:1. Overall left ventricular systolic | | function [...] |PV Vmax: 0.99 m/s | | | |Haulpak Driver: | |Authenticated by: LIZBET LYNN MD | |Report Date/Time: 81_28-7-2019_81:9:34 | | | |IMPRESSION: | |1. Overall [...] | + + + + + | [facility] | [address] | [place] [address] | | + + + + + in this encounter Visit Diagnoses + + | Diagnosis | + + | Transient cerebral ischemia, unspecified type | + +"
--- OUTSIDE RECORDS SUMMARY | ~2018-05-13 | XMS | Encounter Summary ---
Demographics + + + | Address | [address] | | | [place] [address] | + + + | Home Phone | | + + + | Preferred Language | Unknown | + + + | Marital Status | | + + + | Adventism Affiliation | Unknown | + + + | Race | Unknown | + + + | Ethnic Group | Unknown | + + + Author + + + | Author | [facility] [employer] | + + + | Organization | [facility] | + + + | Address | Unknown | + + + | Phone | Unavailable | + + + Support + + +---------+ + | Name | Relationship | Address | Phone | + + +---------+ + | Champ Abraham | ECON | Unknown | | + + +---------+ + Care Team Providers + +------+ + | Care Railways Assistant Name | Role | Phone | [...] [place] | | | | | | [address] | | | | | | [phone] | | | +--------+ + + + [...] | | | | | | [place] [address] | | | | | | [phone] | | | | | | | | +--------+ + + + + | 06/05/ | Office | Pulmonology | Khalif Chambers | | | 2017 | Visit | | MD Santos Mendoza | | | | | | [address] | | | | | | [place] [address] | | | | | | [phone] | | | | | | | | +--------+ + + + + | 09/05/ | Office | Neurology | Indira Amaro, | | | 2018 | Visit | | MD Santos Patel | | | | | | [place] | | | | | | [address] | | | | | | | | +--------+ + + + + as of this encounter Visit Diagnoses Not on filein this encounter"
--- OUTSIDE RECORDS SUMMARY | ~2018-05-13 | XMS | Clinical Summary ---
Demographics + + + | Address | [address] | | | [place] [address] | + + + | Home Phone | | + + + | Preferred Language | Unknown | + + + | Marital Status | | + + + | Methodist Affiliation | Unknown | + + + | Race | Unknown | + + + | Ethnic Group | Unknown | + + + Author + + + | Author | [facility] | | | and [place] | + + + | Organization | [facility] | | | and [place] | [...] Providers + +------+ + | Care Director Payment Name | Role | Phone | + [...] +--------+ +---------+ | MEDICARE | MEDICA | [id number] | Medica | [phone] | | | RE | | re | [phone] | | | | PART A | | | | | | | AND B | | | | | + +--------+ +--------+ +---------+ | [employer] | TRANSA | [id number] | Indemn | | | | INSURANCE [...] MICHAEL | al/Fam | | 1945 | [phone] | [place] [address] | | | chas | | | 1964 | | + +--------+ +--------+ + +
--- OUTSIDE RECORDS SUMMARY | ~2018-05-13 | XMS | Encounter Summary ---
Demographics + + + | Address | [address] | | | [place] [address] | + + + | Home Phone | | + + + | Preferred Language | Unknown | + + + | Marital Status | | + + + | Methodist Affiliation | Unknown | + + + | Race | Unknown | + + + | Ethnic Group | Unknown | + + + Author + + + | Author | [facility] [employer] | + + + | Organization | [facility] | + + + | Address | Unknown | + + + | Phone | Unavailable | + + + Support + + +---------+ + | Name | Relationship | Address | Phone | + + +---------+ + | Champ Abraham | ECON | Unknown | | + + +---------+ + Care Team Providers + +------+ + | Care Car Repairer Apprentice Name | Role | Phone | + +------+ + | Carla Juarez PA-C | PCP | | + +------+ + Reason for Visit + + + | Reason | Comments | + + + | Medication Refill | | + + + Encounter Details +--------+--------+ + + + | Date | Type | Department | Care Team | Description | +--------+--------+ + + + | 03/13/ | Refill | [facility] | Gretchen Joy, | Medication Refill | | 2018 | | Cardiology [place] | MD [address] | | | | | [address] | [address] [place], | | | | | [facility] [address] | [place] [address] | | | | | [place] [address] | [phone] | | | | | [phone] | | | +--------+--------+ + + + [...] | | | | | | [place] [address] | | | | | | [phone] | | | | | | | | +--------+ + + + + | 06/05/ | Office | Pulmonology | Khalif Chambers | | | 2017 | Visit | | Joshua Boyle MD [address] | | | | | | [address] | | | | | | [place] [address] | | | | | | [phone] | | | | | | | | +--------+ + + + + | 09/05/ | Office | Neurology | Indira Amaro, | | | 2018 | Visit | | MD Santos Patel | | | | | | [place] | | | | | | [address] | | | | | | | | +--------+ + + + + as of this encounter Visit Diagnoses Not on filein this encounter"
--- OUTSIDE RECORDS SUMMARY | ~2018-05-13 | XMS | Encounter Summary ---
Demographics + + + | Address | [address] | | | [place] [address] | + + + | Home Phone | | + + + | Preferred Language | Unknown | + + + | Marital Status | | + + + | Quaker Affiliation | Unknown | + + + | Race | Unknown | + + + | Ethnic Group | Unknown | + + + Author + + + | Author | [facility] [employer] | + + + | Organization | [facility] | + + + | Address | Unknown | + + + | Phone | Unavailable | + + + Support + + +---------+ + | Name | Relationship | Address | Phone | + + +---------+ + | Champ Abraham | ECON | Unknown | | + + +---------+ + Care Team Providers + +------+ + | Care Molasses Coloring Operator Name | Role | Phone | [...] | 2018 | on Only | Cardiology [place] | | Resynchronization | | | | [address] | | Therapy - | | | | [place], [place] | | Defibrillator | | | | [address] | | | | | | [phone] | | | +--------+ + + + [...] | | | | | | [place] [address] | | | | | | [phone] | | | | | | | | +--------+ + + + + | 06/05/ | Office | Pulmonology | Khalif Chambers | | | 2017 | Visit | | MD Santos Mendoza | | | | | | [address] | | | | | | [place] [address] | | | | | | [phone] | | | | | | | | +--------+ + + + + | 09/05/ | Office | Neurology | Indira Amaro, | | | 2018 | Visit | | MD Santos Patel | | | | | | [place] | | | | | | [address] | | | | | | | | +--------+ + + + + as of this encounter Visit Diagnoses + + | Diagnosis | + + | Non-ischemic cardiomyopathy - Primary | + + | Other primary cardiomyopathies | + +"
--- OUTSIDE RECORDS SUMMARY | ~2018-05-13 | XMS | Encounter Summary ---
Demographics + + + | Address | [address] | | | [place] [address] | + + + | Home Phone | | + + + | Preferred Language | Unknown | + + + | Marital Status | | + + + | Episcopal Affiliation | Unknown | + + + | Race | Unknown | + + + | Ethnic Group | Unknown | + + + Author + + + | Author | [facility] [employer] | + + + | Organization | [facility] | + + + | Address | Unknown | + + + | Phone | Unavailable | + + + Support + + +---------+ + | Name | Relationship | Address | Phone | + + +---------+ + | Champ Abraham | ECON | Unknown | | + + +---------+ + Care Team Providers + +------+ + | Care Landfill Gas Collection System Operator Name | Role | Phone | [...] | 2018 | on Only | Cardiology [place] | | Resynchronization | | | | [address] | | Therapy - | | | | [place], [place] | | Defibrillator | | | | [address] | | (remote) | | | | [phone] | | | +--------+ + + + [...] Joy Primary electrophysiology provider: Constantin Chavez Device can pusher: Medtronic Device type: Biventricular Battery Longevity: 5.5 [...] since the last interrogation. Testing reviewed by: aircraft ordnance systems mechanic Fransisca Shoemaker , [facility] Associated attestation - Mary Tipton NP [...] [place], | | | | | | [place] [address] | | | | | | [phone] | | | | | | | | +--------+ + + + + | 06/05/ | Office | Pulmonology | Khalif Chambers | | | 2017 | Visit | | Joshua Boyle MD [address] | | | | | | [address] | | | | | | [place] [address] | | | | | | [phone] | | | | | | | | +--------+ + + + + | 09/05/ | Office | Neurology | Indira Amaro, | | | 2018 | Visit | | MD Santos Patel | | | | | | [place] | | | | | | [address] | | | | | | | | +--------+ + + + + as of this encounter Visit Diagnoses + + | Diagnosis | + + | Non-ischemic cardiomyopathy - Primary | + + | Other primary cardiomyopathies | + +"
--- OUTSIDE RECORDS SUMMARY | ~2018-05-13 | XMS | Encounter Summary ---
Demographics + + + | Address | [address] | | | [place] [address] | + + + | Home Phone | | + + + | Preferred Language | Unknown | + + + | Marital Status | | + + + | Christian Affiliation | Unknown | + + + | Race | Unknown | + + + | Ethnic Group | Unknown | + + + Author + + + | Author | [facility] [facility] | + + + | Organization | [facility] | + + + | Address | Unknown | + + + | Phone | Unavailable | + + + Support + + +---------+ + | Name | Relationship | Address | Phone | + + +---------+ + | Champ Abraham | ECON | Unknown | | + + +---------+ + Care Team Providers + +------+ + | Care Cargo Agent Name | Role | Phone | [...] [place], | | | | | [facility] [address] | [place] [address] | | | | | [place] [address] | [phone] | | | | | [phone] | | | +--------+--------+ + + + [...] | | | | | | [place] [address] | | | | | | [phone] | | | | | | | | +--------+ + + + + | 06/05/ | Office | Pulmonology | Khalif Chambers | | | 2017 | Visit | | Joshua Boyle MD [address] | | | | | | [address] | | | | | | [place] [address] | | | | | | [phone] | | | | | | | | +--------+ + + + + | 09/05/ | Office | Neurology | Indira Amaro, | | | 2018 | Visit | | MD Santos Patel | | | | | | [place] | | | | | | [address] | | | | | | | | +--------+ + + + + as of this encounter Visit Diagnoses Not on filein this encounter"
--- OUTSIDE RECORDS SUMMARY | ~2018-05-13 | XMS | Encounter Summary ---
Demographics + + + | Address | [address] | | | [place] [address] | + + + | Home Phone | | + + + | Preferred Language | Unknown | + + + | Marital Status | | + + + | Spiritism Affiliation | Unknown | + + + | Race | Unknown | + + + | Ethnic Group | Unknown | + + + Author + + + | Author | [facility] [employer] | + + + | Organization | [facility] | + + + | Address | Unknown | + + + | Phone | Unavailable | + + + Support + + +---------+ + | Name | Relationship | Address | Phone | + + +---------+ + | Champ Velázquez | ECON | Unknown | | + + +---------+ + Care Team Providers + +------+ + | Care Marksmanship Instructor Name | Role | Phone | [...] unspecified type | | | | | [id number] | | | | | | | [...] [place], | | | | | | [place] [address] | | | | | | [phone] | | | | | | | | +--------+ + + + + | 06/05/ | Office | Pulmonology | Khalif Chambers | | | 2017 | Visit | | Joshua Boyle MD [address] | | | | | | [address] [place] | | | | | | [place] [address] | | | | | | [phone] | | | | | | | | +--------+ + + + + | 09/05/ | Office | Neurology | Indira Amaro, | | | 2018 | Visit | | [address] | | | | | | [place] | | | | | | [address] | | | | | | | [...] FRANCI VELÁZQUEZ Date of : 1945 | [facility] | | Performing Physician: LIZBET [...] PV | | | Vmax: 0.99 m/s Steel Plate Printer: Authenticated by: LIZBET | | | MD SHANE Report Date/Time: [id number]:9:34 | | + + + + + | Procedure Note | + + | David Mckeon In - 04/16/2018 7:10 PM PDT Patient Name: Silvia VELÁZQUEZ | | of : 7Accession: [id number] Physician: LIZBET LYNN MD | | INDICATIONS [...] cmLVPWd: | | 1.13 cmLVOT Area: 5.09 xt7CDEL Diam: 2.54 cm%FS: 1.72 %EF(Teich): 3.94 | [...] | Index (A-L): 45.03 ml/m2LAAs A2C: 31.66 yr0LJOWZ A-L A2C: 147.72 mlLALs A2C: | | 5.75 cmLAAs A4C: 21.81 aj9QWPQA A-L A4C: 68.38 mlLALs A4C: 5.90 cmRAAs: 25.43 | | gi1DXVJQ A-L: 100.41 mlRAESV MOD: 92.04 mlRALs: 5.46 cmAo Diam: 3.82 cmLA Diam: | | 4.65 cmLA/Ao: 1.21 TAPSE: 2.41 cmAV maxP.90 mmHgAV meanP.40 mmHgAV | | Vmax: 1.21 m/Fabricio Vmean: 0.87 m/Fabricio VTI: 23.83 cmAVA Vmax: 3.69 cm2AVA (VTI): | | 3.60 nl3RRAR Vmax: 0.00 cm2/m2AVAI (VTI): 0.00 cm2/m2LVOT maxP.10 mmHgLVOT | | meanP.59 mmHgLVSI Dopp: 37.97 ml/m2LVSV Dopp: 85.81 mlLVOT Vmax: 0.88 | | m/sLVOT Vmean: 0.59 m/sLVOT VTI: 16.83 cmMV A Frank: 0.65 m/sMV DecT: 257.92 msMV | | E Frank: 0.47 m/sMV E/A Ratio: 0.73 MV PHT: 74.79 msMVA By PHT: 2.94 vj2Miqmme e': | | 0.04 m/sSeptal E/e': 11.67 Lateral e': 0.04 m/sLateral E/e': 10.11 PV maxPG: | | 3.92 mmHgPV Vmax: 0.99 m/sSonographer: Authenticated by: Devan LEE | | Date/Time: -- 08_72-2-8703_85:9:34IMPRESSION:1. Overall left ventricular systolic | | function [...] |PV Vmax: 0.99 m/s | | | |Steel Plate Printer: | |Authenticated by: LIZBET LYNN MD | |Report Date/Time: [id number]:9:34 | | | |IMPRESSION: | |1. Overall [...] | [address] | [place] [address] | | + + + + + in this encounter Visit Diagnoses + + | Diagnosis | + + | Transient cerebral ischemia, unspecified type | + +"
--- OUTSIDE RECORDS SUMMARY | ~2018-05-13 | XMS | Encounter Summary ---
Demographics + + + | Address | [address] | | | [place] [address] | + + + | Home Phone | | + + + | Preferred Language | Unknown | + + + | Marital Status | | + + + | Church Affiliation | Unknown | + + + | Race | Unknown | + + + | Ethnic Group | Unknown | + + + Author + + + | Author | [facility] [employer] | + + + | Organization | [facility] | + + + | Address | Unknown | + + + | Phone | Unavailable | + + + Support + + +---------+ + | Name | Relationship | Address | Phone | + + +---------+ + | Champ Abraham | ECON | Unknown | | + + +---------+ + Care Team Providers + +------+ + | Care Winding Inspector And Tester Name | Role | Phone | + +------+ + | Carla Juarez PA-C | PCP | | + +------+ + Encounter Details +--------+ + + + + | Date | Type | Department | Care Team | Description | +--------+ + + + + | 03/26/ | Telephone | [facility] | Sydney Verma | | | 2017 | | Cardiology Jessika Torrez CMA | | | | | [address] | | | | | | [place] | | | | | | [address] | | | | | | [phone] | | | +--------+ + + + [...] | | | | | | [place] [address] | | | | | | [phone] | | | | | | | | +--------+ + + + + | 06/05/ | Office | Pulmonology | Khalif Chambers | | | 2017 | Visit | | MD Santos Mendoza | | | | | | [address] | | | | | | [place] [address] | | | | | | [phone] | | | | | | | | +--------+ + + + + | 09/05/ | Office | Neurology | Indira Amaro, | | | 2018 | Visit | | MD Santos Patel | | | | | | [place] | | | | | | [address] | | | | | | | | +--------+ + + + + as of this encounter Visit Diagnoses Not on filein this encounter"
--- OUTSIDE RECORDS SUMMARY | ~2018-05-13 | XMS | Encounter Summary ---
Demographics + + + | Address | [address] | | | [place] [address] | + + + | Home Phone | | + + + | Preferred Language | Unknown | + + + | Marital Status | | + + + | Samaritan Affiliation | Unknown | + + + | Race | Unknown | + + + | Ethnic Group | Unknown | + + + Author + + + | Author | [employer] | + + + | Organization | [facility] | + + + | Address | Unknown | + + + | Phone | Unavailable | + + + Support + + +---------+ + | Name | Relationship | Address | Phone | + + +---------+ + | Champ Abraham | ECON | Unknown | | + + +---------+ + Care Team Providers + +------+ + | Care Solutions Sales Consultant Name | Role | Phone [...] [place] | | | | | | [address] | | | | | | [phone] | | | +--------+ + + + [...] | | | | | | [place] [address] | | | | | | [phone] | | | | | | | | +--------+ + + + + | 06/05/ | Office | Pulmonology | Khalif Chambers | | | 2017 | Visit | | MD Santos Mendoza | | | | | | [address] | | | | | | [place] [address] | | | | | | [phone] | | | | | | | | +--------+ + + + + | 09/05/ | Office | Neurology | Indira Amaro, | | | 2018 | Visit | | MD Santos Patel | | | | | | [place] | | | | | | [address] | | | | | | | | +--------+ + + + + as of this encounter Visit Diagnoses Not on filein this encounter"
[~2018-05-13 16:47] MED LIST changes: +ENTRESTO 24 MG1 EACH PO; +GLUCOPHAGE500 MG PO; +LASIX20 MG PO; +LIPITOR20 MG PO; +MAGNESIUM500 MG PO; +PLAVIX75 MG PO; +ZESTRIL2.5 MG PO
--- OUTSIDE RECORDS SUMMARY | 2018-05-13 16:52 | XMS ---
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 Josie VISIT COUNT (12 MO.) 3 [facility] TOTAL 3 NOTE: Visits indicate total known visits. ED/UCC VISIT TRACKING (12 MO.) 05/13/2018 16:48 [facility] TYPE: Emergency COMPLAINT: - HEADACHE/SWALLOWING PROBLEM/SPEECH PROBLEM 04/15/2018 16:25 [facility] [place] TYPE: Emergency COMPLAINT: - HEADACHE 03/27/2018 16:01 [facility] [place] TYPE: Emergency COMPLAINT: - BP PROBLEM DIAGNOSES: - Allergy status to narcotic agent status - Other superintendent container terminal (current) drug therapy - termination clerk (current) use of aspirin - Adverse effect of unspecified drugs, medicaments and biological substances, initial encounter - Hypotension due to drugs - Dizziness and giddiness - Allergy status to other drugs, medicaments and biological substances status - Essential (primary) hypertension - Allergy status to penicillin INPATIENT VISIT TRACKING (12 MO.) No inpatient visits to display in this time frame [id number]
--- NOTE | 2018-05-13 21:01 | EKG ---
[facility] [address] [facility] [place] [address] Signed Atrial-sensed ventricular-paced rhythm with frequent premature ventricular complexes Abnormal ECG When compared with ECG of 15-APR-2018 20:36, premature ventricular complexes are now present Vent. rate has increased BY 11 BPM Confirmed by HAYDEN COTTON MD ([id number]) on 05/13/2018 9:01:29 PM Electronically Signed By: HAYDEN COTTON MD 05/13/182100 PATIENT NAME: FRANCI VELÁZQUEZ Electrocardiogram DATE OF : 49 PHYSICIAN: HAYDEN COTTON MD REPORT #: [id number] REPORT IS CONFIDENTIAL AND NOT TO BE RELEASED WITHOUT AUTHORIZATION
== END 2018-05-13 18:30 | disposition home or self-care (01) ==
LOC: ED 16:47
DX: G45.9 Transient cerebral ischemic attack, unspecified (principal); I95.9 Hypotension, unspecified; I10 Essential (primary) hypertension; Z88.5 Allergy status to narcotic agent; Z88.8 Allergy status to other drugs, medicaments and biological substances; Z88.0 Allergy status to penicillin; Z79.01 Long term (current) use of anticoagulants; Z79.899 Other long term (current) drug therapy; Z79.84 Long term (current) use of oral hypoglycemic drugs; Z79.82 Long term (current) use of aspirin
CPT/HCPCS: 70450; 71045; 80053; 85025; 85610; 93005; 93010; 96360; 99285; J7030

== ENCOUNTER 2018-08-17 17:03 | Emergency (ER) | payer MEDICARE, OTHER ==
[~2018-08-17] VITALS: Ht 177.8 cm; Wt 108.5 kg
[2018-08-17] MEDS ORDERED: DIGITEK250 MCG PO (17:22)
--- OUTSIDE RECORDS SUMMARY | 2018-08-17 19:49 | XMS ---
PreManage Notification: FRANCI VELÁZQUEZ Security Remediation Consultant Events No recent Security Events currently on file CRITERIA MET - Group Notification [facility] Physician 04/16/2018-Current PHONE: [phone] [place] has no Care Guidelines for this patient. ETina VISIT COUNT (12 MO.) 4 RANJAN Colin TOTAL 4 NOTE: Visits indicate total known visits. ED/UCC VISIT TRACKING (12 MO.) 08/17/2018 17:04 [facility] [place] TYPE: Emergency COMPLAINT: - CHEST PAINS 05/13/2018 16:48 [facility] [place] TYPE: Emergency COMPLAINT: - STROKE LIKE SYMPTOMS DIAGNOSES: - Slurred speech - termite technician (current) use of anticoagulants - Allergy status to narcotic agent status - Allergy status to penicillin - assisted (current) use of aspirin - termite technician (current) use of oral hypoglycemic drugs - Allergy status to other drugs, medicaments and biological substances status - Transient cerebral ischemic attack, unspecified - Other intermediate (current) drug therapy - Essential (primary) hypertension - Hypotension, unspecified 04/15/2018 16:25 [facility] [place] TYPE: Emergency COMPLAINT: - HEADACHE 03/27/2018 16:01 [facility] [place] TYPE: Emergency COMPLAINT: - BP PROBLEM DIAGNOSES: - Allergy status to narcotic agent status - Other intermediate (current) drug therapy - termite technician (current) use of aspirin - Adverse effect of unspecified drugs, medicaments and biological substances, initial encounter - Hypotension due to drugs - Dizziness and giddiness - Allergy status to other drugs, medicaments and biological substances status - Essential (primary) hypertension - Allergy status to penicillin INPATIENT VISIT TRACKING (12 MO.) No inpatient visits to display in this time frame [email or web address]
--- NOTE | 2018-08-18 06:00 | EKG ---
[facility] [address] [place] [address] Signed Suspect unspecified pacemaker failure Atrial-sensed ventricular-paced rhythm Abnormal ECG When compared with ECG of 13-MAY-2018 17:06, premature ventricular complexes are no longer present Vent. rate has decreased BY 13 BPM Confirmed by KATRIN DELA CRUZ MD ([id number]) on 08/18/2018 6:00:26 AM Electronically Signed By: KATRIN DELA CRUZ MD 08/18/18 0600 PATIENT NAME: FRANCI VELÁZQUEZ Electrocardiogram DATE OF : 49 PHYSICIAN: KATRIN DELA CRUZ MD REPORT #: [id number] REPORT IS CONFIDENTIAL AND NOT TO BE RELEASED WITHOUT AUTHORIZATION
== END 2018-08-17 21:09 | disposition short-term general hospital (02) ==
LOC: ED 17:03
DX: R07.9 Chest pain, unspecified (principal); R55 Syncope and collapse; Z95.0 Presence of cardiac pacemaker; Z88.5 Allergy status to narcotic agent; Z88.0 Allergy status to penicillin; Z88.8 Allergy status to other drugs, medicaments and biological substances; Z79.899 Other long term (current) drug therapy
CPT/HCPCS: 36415; 71045; 80053; 80162; 83690; 83880; 84484; 85025; 85610; 93005; 93010; 96374; 99285-25; J2270

== ENCOUNTER 2019-01-20 03:59 | Emergency (ER) | payer MEDICARE, OTHER ==
[~2019-01-20] VITALS: Ht 177.8 cm; Wt 108.8 kg
--- OUTSIDE RECORDS SUMMARY | ~2019-01-20 | XMS | Encounter Summary ---
Demographics + + + | Address | [address] | | | [place] [address] | + + + | Home Phone | | + + + | Preferred Language | Unknown | + + + | Marital Status | | + + + | Evangelical Affiliation | Unknown | + + + | Race | Unknown | + + + | Ethnic Group | Unknown | + + + Author + + + | Author | [facility] | + + + | Organization | [facility] | + + + | Address | Unknown | + + + | Phone | Unavailable | + + + Support + + +---------+ + | Name | Relationship | Address | Phone | + + +---------+ + | Champ Abraham | ECON | Unknown | | + + +---------+ + Care Team Providers + +------+ + | Care Assistant Finance Director Name | Role | Phone | + +------+ + | Carla Murphy PA-C | PCP | | + +------+ + Reason for Visit + + + | Reason | Comments | + + + | Labs Only | [facility] 11/28/2018 | + + + Encounter Details +--------+ + + + + | Date | Type | Department | Care Team | Description | +--------+ + + + + | 12/03/ | Documentati | KATHLEEN Aranaand | Jessica Spangler MA | Labs Only ([facility] | | 2019 | on Only | Cardiology [place] | | Labs 11/28/2018) | | | | [address] [facility] [address] | [address] | | | | | | [place] [address] | | | | | | [phone] | | | +--------+ + + + [...] + +---------+ + | Alcohol Use | Drinks/We | oz/Week | Comments | | | ek | | | + + +---------+ + | No | | | very rare | + + +---------+ + + + + | Sex Assigned at | Date Recorded | | | | + + + | Not on file | | + + + as of this encounter Plan of Treatment +--------+ + + + + | Date | Type | Specialty | Care Team | Description | +--------+ + + + + | 01/28/ | Documentati | Cardiology | | | | 2018 | on Only | | | | +--------+ + + + + | 01/28/ | Office | Cardiology | Mary Tipton NP | | | 2018 | Visit | | [address] | | | | | | [place] | | | | | | [address] | | | | | | | | +--------+ + + + + | 06/04/ | Office | Cardiology | Nav Foley, | | | 2019 | Visit | | MD [address] | | | | | | [place] [address] | | | | | | [phone] | | | | | | | | +--------+ + + + + as of this encounter Visit Diagnoses Not on filein this encounter"
--- OUTSIDE RECORDS SUMMARY | ~2019-01-20 | XMS | Encounter Summary ---
Demographics + + + | Address | [address] | | | [place] [address] | + + + | Home Phone | | + + + | Preferred Language | Unknown | + + + | Marital Status | | + + + | Jehovah'S Witness Affiliation | Unknown | + + + | Race | Unknown | + + + | Ethnic Group | Unknown | + + + Author + + + | Author | [facility] | + + + | Organization | [facility] | + + + | Address | Unknown | + + + | Phone | Unavailable | + + + Support + + +---------+ + | Name | Relationship | Address | Phone | + + +---------+ + | Champ Abraham | ECON | Unknown | | + + +---------+ + Care Team Providers + +------+ + | Care Core Extruder Name | Role | Phone | + +------+ + | Carla Murphy PA-C | PCP | | + +------+ + Reason for Visit + + + | Reason | Comments | + + + | Labs Only | [facility] 10/22/18 | + + + Encounter Details +--------+ + + + + | Date | Type | Department | Care Team | Description | +--------+ + + + + | 12/12/ | Documentati | KATHLEEN Aranaand | Jessica Spangler MA | Labs Only ([facility] | | 2019 | on Only | Cardiology [place] | | Labs 10/22/18) | | | | [address] | | | [address] | | | | | | [place] [address] | | | | | | [phone] | | | +--------+ + + + [...] Documentati | Cardiology | | | | 2019 | on Only | | | | +--------+ + + + + | 01/28/ | Office | Cardiology | Mary Tipton NP | | | 2018 | Visit | | [address] | | | | | | [place] | | | | | | [address] | | | | | | | | +--------+ + + + + | 06/04/ | Office | Cardiology | Nav Foley, | | | 2018 | Visit | | MD [address] | | | | | | [place] [address] | | | | | | [phone] | | | | | | | | +--------+ + + + + as of this encounter Visit Diagnoses Not on filein this encounter"
--- OUTSIDE RECORDS SUMMARY | ~2019-01-20 | XMS | Encounter Summary ---
Demographics + + + | Address | [address] | | | [place] [address] | + + + | Home Phone | | + + + | Preferred Language | Unknown | + + + | Marital Status | | + + + | Hinduism Affiliation | Unknown | + + + | Race | Unknown | + + + | Ethnic Group | Unknown | + + + Author + + + | Author | [facility] | + + + | Organization | [facility] | + + + | Address | Unknown | + + + | Phone | Unavailable | + + + Support + + +---------+ + | Name | Relationship | Address | Phone | + + +---------+ + | Champ Abraham | ECON | Unknown | | + + +---------+ + Care Team Providers + +------+ + | Care Completion Manager Name | Role | Phone | + +------+ + | Carla Murphy PA-C | PCP | | + +------+ + Reason for Visit + + + | Reason | Comments | + + + | Follow-up | 2 week | + + + Encounter Details +--------+---------+ + + + | Date | Type | Department | Care Team | Description | +--------+---------+ + + + | 10/28/ | Office | [facility] | Poppy Rodriguez | Non-ischemic | | 2019 | Visit | Cardiology [place] | [address] | cardiomyopathy | | | | [address] | [address] | (Primary Dx); | | | | [facility] [address] | [place] [address] | Cardiac | | | | [place] [address] | [phone] | resynchronization | | | | [phone] | | therapy | | | | | | defibrillator | | | | | | (OCEAN FISHING GUIDE-D) in place; | | | | | | Non-sustained | | | | | | ventricular | | | | | | tachycardia; History | | | | | | of ventricular | | | | | | tachycardia; | | | | | | Essential | | | | | | hypertension; | | | | | | Nocturnal hypoxemia; | | | | | | MOISÉS (obstructive | | | | | | sleep apnea); S/P | | | | | | AAA repair; | | | | | | Controlled type 2 | | | | | | diabetes mellitus | | | | | | without | | | | | | complication, | | | | | | without long-term | | | | | | current use of | | | | | | insulin (HCC); | | | | | | Encounter for | | | | | | monitoring diuretic | | | | | | therapy | +--------+---------+ + + + Social History [...] + + + as of this encounter Last Filed Vital Signs + + + + | Vital Sign | Reading | Time Taken | + + + + | Blood Pressure | 98/58 | 10/28/2018 12:31 PM PDT | + + + + | Pulse | 90 | 10/28/2018 12:31 PM PDT | + + + + | Temperature | - | - | + + + + | Respiratory Rate | 18 | 10/28/2018 12:31 PM PDT | + + + + | Oxygen Saturation | 93% | 10/28/2018 12:31 PM PDT | + + + + | Inhaled Oxygen | - | - | | Concentration | | | + + + + | Weight | 108.5 kg (239 lb 3.2 | 10/28/2018 12:31 PM PDT | | | oz) | | + + + + | Height | 177.8 cm (5' 10") | 10/28/2018 12:31 PM PDT | + + + + | Body Mass Index | 34.32 | 10/28/2018 12:31 PM PDT | + + + + in this encounter Instructions Patient Instructions - Poppy Rodriguez ARNP - 10/28/2018 12:30 PM PDTI have increased your furosemide to 40 mg daily as I think you are still fluid overloaded Continue to watch sodium, and about 2000 mg Sodium per day, no more than 700 mg per servi ng , 32-48 0z of water fluid daily. I have ordered a non Fasting labs to done the week before you see Dr. Foley You will follow up with Dr. Foley as scheduled in Novemberin this encounter Progress Notes Poppy Rodriguez ARNP - 10/28/2018 12:30 PM PDTFormatting of this note may be differen t from the original. Date of visit: 10/28/2018 Primary Care Physician: Carla Murphy CHIEF COMPLAINT: Chief Complaint Patient presents with Follow-up 2 week HISTORY OF PRESENT ILLNESS: Mr. Jared Abraham , who goes by [employer], is a 73 year old man who is here today to fol low up on Response to increased diuretic which I had ordered when I saw him last for fluid overload. He has previously been seen by Dr. Reynolds and Dr. Foley and last seen by Dr. Reynolds i n March 2018, and was consulted by Dr. Roldan during his hospital admission on July. He was scheduled to follow-up with Dr. Foley 3 weeks ago, but appointment had to be canceled due to severe weather conditions. He will be seeing Dr. Foley again Today, I reviewed all previous documentation available to me in electronic medical [address] and from external sources. He has a history of Ischemic cardiomyopathy with angiogram performed in October 2008 showin g normal coronaries, history of ventricular tachycardia with insertion of OCEAN FISHING GUIDE-D in January 2010 and most recent generator change in April 2015, hypertension, hyperlipidemia, history o f abdominal aortic aneurysm repair in September 2014, COPD, and obstructive sleep apnea and i ntolerant of CPAP, and uses nocturnal oxygen. He has previously been intolerant of spironolactone, and lisinopril, and carvedilol, and recently amiodarone His current and previous testing and procedures are detailed below He was admitted on August 17, 2018 after an episode of syncope, and his EKG showed frequ ent PVCs, and his ICD had shown one episode of sustained ventricular tachycardia lasting for 27 seconds, and no therapy was delivered. Dr. Roldan switched him to metoprolol succinate 25 mg once daily, stopped his to digoxin, started him on amiodarone 400 mg bid for one week which he then decrease to 400 mg daily and felt there is no need to repeat an echo or stres s test. Since that time he had at least 3 events that I can see of fluid overload per Opti vol monitoring with his OCEAN FISHING GUIDE-D device, on August 30, September 06, September 24, and most recently October 07. When I saw him last light increased his furosemide to 20 mg daily, as he had only been ta pablo furosemide 20 mg every other day, and he was reluctant to be too aggressive with diures is, due to previous problems with hypotension. Today he reports he tolerated furosemide 20 mg daily well, but not much different in his weight, which is still fluctuating 3-5 pounds up and down. He has less pedal edema today, b ut his weight is actually more than one I saw him last. He reports he has been compliant wi th sodium and fluid restriction and drinking about 30-40 ounces of fluid daily. He denies any dizziness or lightheadedness, syncope, chest pain, dyspnea, or signs or sym ptoms of stroke or transient ischemic attack He notices that he still runs out of energy quickly and uses a cane for ambulation due to his poor activity tolerance. He notices palpitations 1-2 times per day. He reports his last sleep study and attempted CPAP was in 2016, and he did try desensitiz ing exercises by wearing CPAP in the day to help get over his claustrophobia, but he was nev er successful. He reports he has had some relief wearing oxygen at night, but still wakes u p gasping and short of breath on occasion. He seems quite knowledgeable about sodium restrictions and fluid restrictions and reports he drinks approximately 32-40 ounces of fluid daily, and has stopped drinking soda on a neno ly basis, and only drinks diet Pepsi very occasionally. He reports he drinks no caffeine, a nd also denies any history of smoking, and denies any use of alcohol, or recreational or ill icit drugs. He was diagnosed with type II diabetes last year 09/2017,, and has made considerable effo rt to improve his diet, lose weight, and his A1c has decreased 5.5 on his recent hospital ad mission and he has maintained a weight loss of 40 pounds as he previously weighed 269 pounds in August 2017. He brought his medication bottles to the clinic today, and personally reviewed by me. REVIEW OF SYSTEMS: Negative except for pertinent items noted in HPI. Constitutional: Denies fatigue or unexplained weight loss. Appetite is good. Intentional weight loss of over 40 pounds, previously weighed 260 pounds 08/2017 Denies night sweats f heber or chills HENT: Denies nosebleeds. Denies hearing problems. Denies dysphagia Eyes: Denies visual disturbance or double vision. Respiratory/Sleep:: Denies cough and shortness of breath. Denies hemoptysis or excessive s putum production. Positive for sleep apnea, intolerant to CPAP, uses nocturnal oxygen.Mervin es orthopnea, occasional PND. Cardiovascular: mild pedal edema, palpitations 1-2 times per day Denies chest pain.Denies history of rheumatic fever. Denies claudication . Gastrointestinal: Denies history of gastroesophageal reflux disease . Denies nausea, vomi ting, abdominal pain and blood in stool. Genitourinary: Denies hematuria. Musculoskeletal: reports left hip pain, uses cane Denies myalgias, back pain Skin: Denies color change. Denies rash or lesions Neurological: Denies history of stroke/Transient ischemic attack.Denies history of seizures . Denies dizziness, syncope and numbness. Hematological/Oncology . [...] due to poor activity tolerance. Lives in [place]. , lost his fiancee in 2001 when she in a car crash after being hit by distracted driver operator on a cell phone Outpatient Medications Prior to Visit Medication Sig Dispense Refill aspirin 81 MG EC tablet Take 81 mg by mouth daily. atorvastatin (LIPITOR) 20 MG tablet Take 20 mg by mouth nightly. Cholecalciferol (VITAMIN D3) 80321 UNITS CAPS Take 5,000 Int'l Units by mouth daily. clopidogrel (PLAVIX) 75 MG tablet Take 75 mg by mouth daily. levothyroxine (SYNTHROID) 88 MCG tablet Take 88 mcg by mouth every morning before break fast. Pt taking 88 mcg daily loratadine (CLARITIN) 10 MG tablet Take 10 mg by mouth daily. Magnesium 250 MG TABS tablet Take 250 mg by mouth daily. metoprolol (TOPROL-XL) 25 MG 24 hr tablet Take 1 tablet by mouth daily for 30 days. 30 tablet 0 furosemide (LASIX) 20 MG tablet Take 1 tablet by mouth daily. 30 tablet 11 metFORMIN (GLUCOPHAGE) 500 MG tablet Take 500 mg by mouth daily. No facility-administered medications prior to visit. PHYSICAL EXAM: Wt Readings from Last 3 Encounters: 10/28/18 108.5 kg (239 lb 3.2 oz) 10/10/18 107.7 kg (237 lb 8 oz) 08/18/18 104.4 kg (230 lb 2.6 oz) Temp Readings from Last 3 Encounters: 08/19/18 97.7 F (36.5 C) (Oral) 06/05/18 97.8 F (36.6 C) (Oral) 06/13/17 97.6 F (36.4 C) (Temporal) BP Readings from Last 3 Encounters: 10/28/18 98/58 10/10/18 106/60 08/19/18 109/60 Pulse Readings from Last 3 Encounters: 10/28/18 90 10/10/18 84 08/19/18 71 GENERAL: Well developed, well nourished, in no distress. Appears approximately stated age . HEENT: Normocephalic, atraumatic. EYES: PERRL, EOM normal. MOUTH: Oral mucosae moist, dentition adequate, no lesions noted NECK: No JVD, lymphadenopathy, thyromegaly, bruits. Carotid pulses are 2+ bilaterally LUNGS/CHEST: Clear bilaterally, with no rales, rhonchi or wheezing noted, respirations unl abored HEART: OCEAN FISHING GUIDE-D site to CHIKA, stable to palpation, well healed. Nondisplaced PMI, regular rate and rhythm all extrasystole , S1, S2 normal. No murmurs, rubs or gallops noted. ABDOMEN: Soft, nontender, no organomegaly, masses or bruits. Bowel sounds are normal in a ll 4 quadrants. The abdominal aortic pulsation is not palpable. EXTREMITIES: No pedal edema. Radial pulses 2+ bilaterally. Femoral pulses are 2+ bilate rally without bruits. DP and PT pulses are 2+ bilaterally. No clubbing. SKIN: Warm and dry, capillary refill is normal, no lesions. NEUROLOGIC: Awake, alert and oriented x 3. No focal motor or sensory deficits. PSYCHIATRIC: Appropriate, affect appears normal DATA: Blood tests: Lab Results Component Value Date WBC 10.67 08/18/2018 RBC 4.27 08/18/2018 HGB 13.0 (L) 08/18/2018 HCT 38.3 (L) 08/18/2018 PLT 160 08/18/2018 Lab Results Component Value Date NA 141 08/18/2018 K 3.9 08/18/2018 CL 101 08/18/2018 CO2 31 08/18/2018 ANIONGAP 13 08/18/2018 GLUF 136 (H) 08/18/2018 BUN 16 08/18/2018 CREATININE 0.9 08/18/2018 BCR 18 08/18/2018 CA 8.2 (L) 08/18/2018 EGFR >60 08/18/2018 Lab Results Component Value Date CHOL 76 08/18/2018 TRIG 102 08/18/2018 LDL 27 08/18/2018 GLUF 136 (H) 08/18/2018 HGBA1C 5.5 08/18/2018 Lab Results Component Value Date BNP 113 (H) 01/21/2017 CKTOTAL 32 (L) 08/18/2018 TSH 2.040 08/18/2018 No results found for: METF, NMETFX, TFNMFX, NHYWSDF14PGF, IVTKPX14LMC, TOTEPI CARDIAC PROCEDURES/IMAGING last angiogram: 11/05/2008: Normal coronaries, consistent with nonischemic cardiomyopathy EF 15-20 percent.. VASCULAR TESTING AND PROCEDURES OCEAN FISHING GUIDE-D Implant : MDT OCEAN FISHING GUIDE-D by Dr. Martinez. in January 2010., Generator change by Dr. Delarosa in viva xt OCEAN FISHING GUIDE D MDT number [id number].Patient has a 5076 atrial lead Medtronic. 6947 Sprin t Quattro Medtronic RV lead and 4195 Starfix Medtronic LV lead. All leads were implanted in January 2010. Last OCEAN FISHING GUIDE-D interrogation: 09/23/2018: Battery longevity( 3.7-5.9y) 4.8 years/2.97V.BLUE LEATHER SETTER 2.73 V RA pacing 30.79 percent, RV pacing 99.04 percent, OCEAN FISHING GUIDE pacing 98.92 percent. Lead impeda nce WNL. Settings DDDR 60-140. Increased fluid noted as well in February 2018, and August 30- 2018 Patient activity 1.3 hours per day. Events since 09/04/2018: Time in 18/AF less than 0.1 hours per day, <0.1 percent . no VT in 167-1 88 bpm range. No VT-and asked greate r than 4 beats, greater than 188 bpm range. No supraventricular tachycardia. No ventricula r oversensing. No pace or shock terminated episode. No shocks. No aborted charges. OCEAN FISHING GUIDE-D interrogation: 09/04/2018: Battery longevity 4.9 years/2.98 V ( BLUE LEATHER SETTER 2.73V) . Lead impe ndence WNL. Thresholds WNL. RA Pacing: <46.3% RV Pacin.6% BiV Pacin.9% ( VSR pace: <0.1%) Events. Mode switches: <0.1% of time in AT/AF.VT/VF Detections: during 018 admission, 1 episode of sustained ventricular tachycardia lasting for 27 seconds, no the rapy delivered. Device settings are ventricular fibrillation zone of 188, treated with 35 J shocks 6, VT zone monitored, no therapy CHF: Congestive heart failure parameters and tren ds have been reviewed and are stable- note 10/07/2018: HF nurse notified he gained 3 pounds o apurva a 24-hour period OCEAN FISHING GUIDE-D Quick Look: 08/17/2018: ( [facility] admission for syncope) : Longevity of 5 years. Sett ings 60-140 18/AF burden <0.1 hours/day, <0.1 percent. Patient activity 1.2 hours per day. EGM's. Dr. Roldan noted settings were ventricular fibrillation zone of 188, treated with 35 J shocks 6, VT zone monitored, no therapy. One episode of sustained ventricular tachy cardia lasting for 27 seconds, no therapy delivered. ECHO Echo: 09/25/2017 ([facility]): Technically adequate study. EF 30-35 percent. Mild LV dilation. M ild septal hypertrophy, septal thickness 13-50 mm. Paradoxical septal motion consistent wit h paced rhythm. RV normal in size and function. Mild biatrial enlargement. Aortic valve t rileaflet, trace AI, no aortic stenosis. Normal mitral valve, trace MR. Normal tricuspid v alve, trace TR. Normal pulmonic valve, trace PI. No pericardial or pleural effusion. IVC WNL, normal CVP. Aortic root, ascending aorta, and [...] valve normal, trace TR. No pericardial effusion. EKG/EVENT MONITOR EK01/21/2017: Dual-chamber atrially sensing pacemaker, PVCs. Rate 87 bpm, QRS 160 ms, QTC 524 ms and tracing personally reviewed by me EK08/18/2018: Sinus rhythm with frequent AV paced complexes him a PVCs. Rate 72 bpm, WA 112 ms, QRS 150 ms, QTC 494 ms tracing personally reviewed by me EK10/10/2018: Atrially paced rhythm, occasional PVC. Rate 84 bpm, WA 178 ms, QRS 174 ms, QTC 531 ms him a tracing personally reviewed by me, and improved rate and less frequent PVC s and EKG performed 07/2018 LABS labs: 08/17/2018: CMP: Sodium 140, potassium [...] 188, BUN 15, creatinine 0.96, GFR 77 ASSESSMENT & PLAN: Lizbeth was here today to follow-up on response to taking furosemide 20 mg daily for fluid o verload. He has problems as detailed below. He did not tolerate furosemide 20 mg daily, but still seems to be somewhat fluid overload ed, though pedal edema has resolved, and otherwise asymptomatic. His BMP performed last we ek showed normal renal function and is detailed above He thinks his stride baseline weight is around 220-224 pounds, and weighs 239 pounds today. I discussed with him today that I thought he would benefit from more aggressive diuresis, and had suggested torsemide 10 mg daily for at least 2 weeks, but he was reluctant to do th is, so we compromised on furosemide 40 mg daily. He has been compliant with fluid and sodium,and lipids have been well controlled on c urrent medications . I have increased his furosemide to 40 mg daily from 20 mg daily and no changes to his cardiac medications otherwise and he should continue Plavix 75 mg daily, metoprolol XL 25 mg daily, magnesium oxide 250 mg daily, atorvastatin 20 mg qhs for hyperlipidemia, and aspirin 81 mg daily . He has previously been intolerant of spironolactone, and lisinopril, and carvedilol, and also had a lot of side effects with amiodarone , feels he is very sensitive to medications. We discussed today that with his cardiomyopathy he would have a lower blood pressure then o ther patients without cardiomyopathy, and as long as he was asymptomatic that okay if blood pressure in the high 90's or low 100's. I was concerned that his episode of syncope could be related to either AICD malfunction, or a possible shock, though not recorded, as Dr. Roldan had noted that he had one episode of sustained ventricular tachycardia lasting for 27 seconds prior to his admission for sync ope on August 17, 2018, and evaluated by Dr. Chavez, who feels he has appropriate device fu nction, but will follow-up with him again in January. He will follow-up with Dr. Foley next on December 04, 2018, and will have a device interrogat ion prior to seeing him. I have ordered a BMP to be done in 3 weeks prior to seeing Dr. Franco john to evaluate his renal function with increased diuretic. 1. Non-ischemic cardiomyopathy 2. Cardiac resynchronization therapy defibrillator (OCEAN FISHING GUIDE-D) in place 3. Non-sustained ventricular tachycardia 4. History of ventricular tachycardia 5. Essential hypertension 6. Nocturnal hypoxemia 7. MOISÉS (obstructive sleep apnea) 8. S/P AAA repair 9. Controlled type 2 diabetes mellitus without complication, without long-term current use of insulin ([facility]) 10. Encounter for monitoring diuretic therapy Orders Placed This Encounter Procedures Basic metabolic panel The following portions of the patient's history [...] social history, past surgical history. Problem list. M[facility] Cardiology 10/28/2018in this encounter Plan of Treatment +--------+ + + + + | Date | Type | Specialty | Care Team | Description | +--------+ + + + + | 01/28/ | Documentati | Cardiology | | | | 2018 | on Only | | | | +--------+ + + + + | 01/28/ | Office | Cardiology | Mary Tipton, INSURANCE COUNSELOR | | | 2018 | Visit | | [address] | | | | | | [facility] [place] | | | | | | [address] | | | | | | | | +--------+ + + + + | 06/04/ | Office | Cardiology | Nav Foley, | | | 2018 | Visit | | MD [address] | | | | | | [place] [address] | | | | | | [phone] | | | | | | | | +--------+ + + + + + +--------+ + + | Name | Priori | Associated Diagnoses | Order Schedule | | | ty | | | + +--------+ + + | Basic metabolic panel | Routin | Controlled type 2 | Expected: | | | e | diabetes mellitus | 11/11/2018, Expires: | | | | without | 10/29/2019 | | | | complication, | | | | | without long-term | | | | | current use of | | | | | insulin (HCC) | | | | | Encounter for | | | | | monitoring diuretic | | | | | therapy | | + +--------+ + + as of this encounter Visit Diagnoses + + | Diagnosis | + + | Non-ischemic cardiomyopathy - Primary | + + | Other primary cardiomyopathies | + + | Cardiac resynchronization therapy defibrillator (OCEAN FISHING GUIDE-D) in place | + + | Non-sustained ventricular tachycardia | + + | Paroxysmal ventricular tachycardia | + + | History of ventricular tachycardia | + + | Personal history of other diseases of circulatory system | + + | Essential hypertension | + + | Unspecified essential hypertension | + + | Nocturnal hypoxemia | + + | Hypoxemia | + + | MOISÉS (obstructive sleep apnea) | + + | Obstructive sleep apnea (adult) (pediatric) | + + | S/P AAA repair | + + | Controlled type 2 diabetes mellitus without complication, without long-term current | | use of insulin (HCC) | + + | Encounter for monitoring diuretic therapy | + + | Encounter for therapeutic drug monitoring | + +
--- OUTSIDE RECORDS SUMMARY | ~2019-01-20 | XMS | Clinical Summary ---
Demographics + + + | Address | [address] | | | [place] [address] | + + + | Home Phone [...] Team Providers + +------+ + | Care Knot Saw Operator Name | Role | Phone | + +------+ + | Carla Murphy | PP | | | PA-C | | | + +------+ + Allergies + + + + + + | Active Allergy | Reactions | Severity | Noted | Comments | | | | | Date | | + + + + + + | Codeine | Anaphylaxis | High | 10/19/19 | | | | | | 16 | | + + + + + + | Meperidine | Anaphylaxis | High | 10/19/19 | [...] Noted Date | + + + | Emphysema of lung | 10/24/2015 | + + + | Elevated left diaphragm | 10/24/2015 | + + + | Dyspnea on exertion | 10/24/2015 | + + + | History of abdominal aortic aneurysm repair | 09/24/2014 | + + + | MOISÉS (obstructive sleep apnea) | | + + + + + | Overview: not formally diagnosed | + + + +---+ | Non-ischemic [...] leukemia | + +------+ + + | Father | | | | + +------+ + + | Mother | | | valvular heart disease, bleeding ulcer | | | | (Age | | | | | 60) | | + +------+ + + | [...] | No | 0 | 0.0 | | | | Standard | | | [...] + | Blood Pressure | 110/74 | 12/14/20151511 PDT | + + + + | Pulse | 92 | 12/14/20151511 PDT | + + + + | Temperature | - | - | + + + + | Respiratory Rate | - | - | + + + + | Oxygen Saturation | 94% | 12/14/20151511 PDT | + + + + | Inhaled Oxygen | - | - | | Concentration | | | + + + + | Weight | 125.1 kg (275 lb | 12/14/20151511 PDT | | | 11.2 oz) | | + + + + | Height | 177.8 cm (5' 10") | 12/14/20151511 PDT | + + + + | Body Mass Index | 39.56 | 12/14/20151511 PDT | + + + + Plan of Treatment + + + + + | Health [...] Vaccine: Influenza | | | | | (Season Ended) | 9 | | | + + [...] +--------+ +---------+--------+ | MEDICARE | [employer] | [id number] | 10/19/19 | [phone] | | Medica | | | RE | | 13-Pre | 5 | | re | | | PART A | | sent | | | | | | AND B | | | | | | + +--------+ +--------+ +---------+--------+ | [employer] | TRANSA | [id number] | 10/19/19 | | | Indemn | [...] [address] | | [place] | al/Serjio | | 1945 | [phone] | [place] | | | chas | | | [address] ([place]) | [phone] | + +--------+ +--------+ + + Advance Directives Patient has advance care planning documents on file. For more information, please contact:[place] [address]
--- OUTSIDE RECORDS SUMMARY | ~2019-01-20 | XMS | Clinical Summary ---
Demographics + + + | Address | [address] | | | [place] [address] | + + + | Home Phone | | + + + | Preferred Language | Unknown | + + + | Marital Status | | + + + | Yarsani Affiliation | Unknown | + + + | Race | Unknown | + + + | Ethnic Group | Unknown | + + + Author + + + | Author | [facility] | | | and [place] | + + + | Organization | [facility] | | [...] Team Providers + +------+ + | Care Food Production Worker Name | Role | Phone | [...] +--------+ +---------+--------+ | MEDICARE | [employer] | [id number] | 10/19/19 | [phone] | | Medica | | | RE | | 13-Pre | 5 | | re | | | PART A | | sent | | | | | | AND B | | | | | | + +--------+ +--------+ +---------+--------+ | [employer] | TRANSA | [id number] | 10/19/19 | | | Indemn | [...] | | chas | | | [address] ([place]) | [phone] | + +--------+ +--------+ + + Advance Directives Patient has advance care planning documents on file. For more information, please contact:[facility] [place] [address]
--- OUTSIDE RECORDS SUMMARY | ~2019-01-20 | XMS | Clinical Summary ---
Demographics + + + | Address | [address] | | | [place] [address] | + + + | Home Phone | | + + + | Preferred Language | Unknown | + + + | Marital Status | | + + + | Lutheran Affiliation | Unknown | + + + | Race | Unknown | + + + | Ethnic Group | Unknown | + + + Author + + + | Author | [facility] | + + + | Organization | [facility] | + + + | Address | Unknown | + + + | Phone | Unavailable | + + + Support + + +---------+ + | Name | Relationship | Address | Phone | + + +---------+ + | Champ Velázquez | ECON | Unknown | | + + +---------+ + Care Team Providers + +------+ + | Care Crackling Press Operator Name | Role | Phone [...] | | Activ | | (VITAMIN D3) 55426 | Units by mouth | | | [...] tablets by | 60 | 11 | 03/1 | | Activ | | 20 MG tablet | mouth daily. 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 Chiang in January | | 2009.Generator change by Dr. Delarosa in 2014 viva xt REGULATORY ANALYST D MDT | | number [id number].Patient has a 5076 atrial lead Medtronic. 6947 | | Sprint Quattro Medtronic RV lead and 4195 Starfix Medtronic LV | | lead. All leads were implanted in January 2010. 07/30/18: | | Appropriate device function seen. The pacing threshold was 0.625 | | V at 0.4 ms in the atrium, 0.5 V at 0.4 ms in the RV, and 0.625 V | | at 0.4 ms in the LV. P waves were 3.4 mV. R waves were 4.6 mV. | | Pacing has occurred in the ventricles 97-99% of time and in the | | atrium 6.1% of the time. Ventricular sensed response has occurred | | 2% of the time. The PAV was changed from 130-150 ms and WAQAS was | | changed from 100-120 ms. The LV offset was changed from -40 ms to | | -30 ms. Four episodes of nonsustained VT seen and 3 other | | episodes of rapid atrial driven rhythm seen, lasting for up to 2 | | seconds with heart rates up to 214 bpm. | + + + + + | Non-sustained ventricular tachycardia | 01/21/2017 | + + + + + | Overview: Increase the beta magda. | + + + + + | [...] QRS duration of over 160 ms. A REGULATORY ANALYST defibrillator | | was subsequently placed by [...] complaining of exertional fatigue and shortness of breath. | + + + + + | [...] | +--------+ + + + + | 01/16/ | Telephone | | Ebony Stein, | | | 2018 | | | MA | | +--------+ + + + + | 12/12/ | Documentati | | Jessica Spangler MA | Labs Only ([facility] | | 2018 | on Only | | | Labs 10/22/18) | +--------+ + + + + | 12/04/ | Office | | Nav Foley, | Non-ischemic | | 2018 | Visit | | MD | cardiomyopathy | | | | | | (Primary Dx) | +--------+ + + + + | 12/03/ | Documentati | | Jessica Spangler MA | Labs Only ([facility] | | 2018 | on Only | | | Labs 11/28/2018) | +--------+ + + + + | 11/13/ | Documentati | | Fransisca Shoemaker | Cardiac | | 2018 | on Only | | | Resynchronization | | | | | | Therapy - | | | | | | Defibrillator | | | | | | (remote) | +--------+ + + + + | 10/28/ | Office | | Poppy Rodriguez | Non-ischemic | | 2019 | Visit | | MORRO Beltran | cardiomyopathy | | | | | | (Primary Dx); | | | | | | Cardiac | | | | | | resynchronization | | | | | | therapy | | | | | | defibrillator | | | | | | (REGULATORY ANALYST-D) in place; | | | | | [...] | | | | | therapy | +--------+ + + + + from [...] + + + | Blood Pressure | 94/60 | 12/04/2018 3:03 PM PDT | + + + + | Pulse | 85 | 12/04/2018 3:03 PM PDT | + + + + | Temperature | 36.5 C (97.7 F) | 08/19/2018 11:24 AM PST | + + + + | Respiratory Rate | 18 | 10/28/2018 12:31 PM PDT | + + + + | Oxygen Saturation | 96% | 12/04/2018 3:03 PM PDT | + + + + | Inhaled Oxygen | - | - | | Concentration | | | + + + + | Weight | 107 kg (236 lb) | 12/04/2018 3:03 PM PDT | + + + + | Height | 177.8 cm (5' 10") | 12/04/2018 3:03 PM PDT | + + + + | Body Mass Index | 33.86 | 12/04/2018 3:03 PM PDT | + + + + Plan of Treatment +--------+ + + + + | Date | Type | Specialty | Care Team | Description | +--------+ + + + + | 01/28/ | Documentati | | | | | 2018 | on Only | | | | +--------+ + + + + | 01/28/ | Office | | Mary Tipton NP | | | 2018 | Visit | | [address] | | | | | | [place], [place] | | | | | | [address] | | | | | | | | +--------+ + + + + | 06/04/ | Office | | Nav Foley, | | | 2018 | Visit | | MD [address] | | | | | | [place] [address] | | | | | | [phone] | | | | | | | [...] / Lot | + +--------+------+ +--------+--------+--------+ | Banker Mason-D-05/17/2015Implanted: | Cardia | | MEDTRONIC - | [...] +------+-------+ + | MEDICARE | MEDICA | [id number] | | | [address] | | | RE | | | | YE, [place] [address] | | | IP-OP | | | | | + +--------+ +------+-------+ + | COMMERCIAL OTHER | TRANSA | [id number] | | | | | | MERICA [...] [address] | | MICHAEL | al/Serjio | | 1945 | [phone] [place] | | | chas | | | 1964 | [phone] | + +--------+ +--------+ + +
--- OUTSIDE RECORDS SUMMARY | ~2019-01-20 | XMS | Encounter Summary ---
Demographics + + + | Address | [address] | | | [place] [address] | + + + | Home Phone | | + + + | Preferred Language | Unknown | + + + | Marital Status | | + + + | Jainism Affiliation | Unknown | + + + | Race | Unknown | + + + | Ethnic Group | Unknown | + + + Author + + + | Author | [facility] | + + + | Organization | [facility] | + + + | Address | Unknown | + + + | Phone | Unavailable | + + + Support + + +---------+ + | Name | Relationship | Address | Phone | + + +---------+ + | Champ Abraham | ECON | Unknown | | + + +---------+ + Care Team Providers + +------+ + | Care Child Welfare Manager Name | Role | Phone | + +------+ + | Carla Murphy PA-C | PCP | | + +------+ + Encounter Details +--------+ + + + + | Date | Type | Department | Care Team | Description | +--------+ + + + + | 01/16/ | Telephone | KATHLEEN Andrews | Ebony Stein, | | | 2018 | | Cardiology Jessika | ONI | | | | | [address] | | | | | | [place] | | | | | | [address] | | | | | | [phone] | | | +--------+ + + + [...] [place] | | | | | | [address] | | | | | | | | +--------+ + + + + | 06/04/ | Office | Cardiology | Nav Foley, | | | 2019 | Visit | | MD [address] | | | | | | [place] [address] | | | | | | [phone] | | | | | | | | +--------+ + + + + as of this encounter Visit Diagnoses Not on filein this encounter"
--- OUTSIDE RECORDS SUMMARY | ~2019-01-20 | XMS | Encounter Summary ---
Demographics + + + | Address | [address] | | | [place] [address] | + + + | Home Phone | | + + + | Preferred Language | Unknown | + + + | Marital Status | | + + + | Zoroastrianism Affiliation | Unknown | + + + | Race | Unknown | + + + | Ethnic Group | Unknown | + + + Author + + + | Author | [facility] | + + + | Organization | [facility] | + + + | Address | Unknown | + + + | Phone | Unavailable | + + + Support + + +---------+ + | Name | Relationship | Address | Phone | + + +---------+ + | Champ Abraham | ECON | Unknown | | + + +---------+ + Care Team Providers + +------+ + | Care Rubber Printing Machine Operator Name | Role | Phone | + +------+ + | Carla Murphy PA-C | PCP | | + +------+ + Reason for Visit + + + | Reason | Comments | + + + | Follow-up | 2 month | + + + Encounter Details +--------+---------+ + + + | Date | Type | Department | Care Team | Description | +--------+---------+ + + + | 12/04/ | Office | KATHLEEN Juliana | Nav Foley, | Non-ischemic | | 2019 | Visit | Cardiology Shannon | [address] | cardiomyopathy | | | | [address] | [place] [address] | (Primary Dx) | | | | [place], [place] | [phone] | | | | | [address] | | | | | | [phone] | | | +--------+---------+ + + + [...] + + + + in this encounter Progress Notes Nav Foley MD - 12/04/2018 3:00 PM PDTFormatting of this note may be different from the original. FOLLOW UP : 1945 DATE OF SERVICE: 12/04/2018 PROVIDER: NAV FOLEY MD PRIMARY CARE: Carla Murphy CHIEF COMPLAINT: Chief Complaint Patient presents with Follow-up 2 month HPI: I am seeing him for the first time since 02/2017. He has also seen Dr. Joy and Oswaldo Gaspar. Main complaint is dyspnea on exertion and poor energy during the day. He do es have untreated sleep apnea. He has been unable to adjust to the CPAP device. His blood pressure tends to run chronically low. HE HAS BEEN INTOLERANT TO ENTRESTO, DIGOXIN, AND AMI ODARONE. He is not having chest pain, orthopnea, or PND. No symptoms of arrhythmia, claudi cation, or TIA-type symptoms. PMH, SH, FH, and meds were reviewed in the chart. CURRENT MEDICATIONS: Outpatient Encounter Prescriptions as of 12/04/2018 Medication Sig Dispense Refill aspirin 81 MG EC tablet Take 81 mg by mouth daily. atorvastatin (LIPITOR) 20 MG tablet Take 20 mg by mouth nightly. Cholecalciferol (VITAMIN D3) 12833 UNITS CAPS Take 5,000 Int'l Units by [...] Systems Constitutional: Positive for fatigue. Negative for chills, fever and unexpected weight thornton ge. HENT: Negative for nosebleeds and trouble swallowing. Eyes: Negative for redness and visual disturbance. Respiratory: Positive for shortness of breath. Negative for cough, chest tightness and whee zing. Cardiovascular: Negative for chest pain, palpitations and leg swelling. Gastrointestinal: Negative for blood in stool, diarrhea, nausea and vomiting. Endocrine: Negative for cold intolerance and heat intolerance. Genitourinary: Negative for dysuria, frequency and hematuria. Musculoskeletal: Negative for gait problem and joint swelling. Skin: Negative for rash and wound. Neurological: Negative for dizziness, tremors, syncope, facial asymmetry, speech difficulty , light-headedness, numbness and headaches. Hematological: Does not bruise/bleed easily. Psychiatric/Behavioral: Positive for sleep disturbance. Negative for dysphoric mood. All other systems reviewed [...] CARDIOVASCULAR - No JVD, no carotid bruit, Carotid upstroke normal bilaterally. Regular rat e and rhythm. No rub. No murmur. No [...] - No pallor, no jaundice, no cyanosis. Prior notes reviewed. IMPRESSION 1. Nonischemic cardiomyopathy. Ejection fraction 30-35% 2. PRINCIPAL EXAMINER in situ. 3. Normal coronary anatomy. 4. Intolerance to carvedilol and doses of lisinopril greater than 5 mg per day. ALSO INTOLE RANT TO ENTRESTO, DIGOXIN, AND AMIODARONE. 5. Obstructive sleep apnea, untreated 6. Obesity. 7. Restrictive lung disease. PLAN He does not appear to be fluid overload, so will take a drug holiday from furosemide. If h is O2 sats drop, his ankles become more swollen, he becomes short of breath, or he gains josr ght steadily, he will restart that drug. I have asked him to get back with his sleep doctor to look at alternatives to his current CPAP device which I think is the main issue. I susp ected his daytime fatigue is in large part related to his sleep apnea, however, would like t o see an improvement in his blood pressure as well. We will see in 6 months or sooner if pr oblems. Continue with the EP service. . Cardiac Medications: Continue as prescribed. Nav Foley MD FACC, FACP, FASNC FOLLOW UP : 1945 DATE OF SERVICE: 12/04/2018 PROVIDER: NAV FOLEY MD PRIMARY CARE: Carla Murphy CHIEF COMPLAINT: Chief Complaint Patient presents with Follow-up 2 month HPI: He was finally tested for sleep apnea and he in fact has it, however he has not been able t o tolerate the CPAP mask. He is looking at alternative treatments for his sleep apnea. He caceres s some shortness of breath and fatigue, but no symptoms of angina, other symptoms of heart f ailure, arrhythmia, claudication, or TIA type symptoms. He is compliant with medicines. PMH, SH, FH, and meds were reviewed in the chart. CURRENT MEDICATIONS: Outpatient Encounter Prescriptions as of 12/04/2018 Medication Sig Dispense Refill aspirin 81 MG EC tablet Take 81 mg by mouth daily. atorvastatin (LIPITOR) 20 MG tablet Take 20 mg by mouth nightly. Cholecalciferol (VITAMIN D3) 14765 UNITS CAPS Take 5,000 Int'l Units by [...] Negative for redness and visual disturbance. Respiratory: Positive for shortness of breath. Negative for cough, chest tightness and whee zing. Cardiovascular: Negative for chest pain, palpitations and [...] - No pallor, no jaundice, no cyanosis. IMPRESSION 1. Nonischemic cardiomyopathy, ejection fraction 35% to 40%. Class II to III symptoms. 2. AICD in situ. 3. Normal coronary anatomy. 4. Intolerance to carvedilol. 5. Strong suspicion for sleep apnea. 6. Obesity. 7. Restrictive lung disease with elevated left hemidiaphragm. PLAN Will stop metoprolol and spirolactone. Will try again carvedilol at 3.125 mg b.i.d. with li sinopril 5 mg once a day between doses. If he again does not tolerate carvedilol, will have to go back to metoprolol. Continue aspirin. Will see in 3 months, or sooner if problems. Cardiac Medications: Continue as prescribed. Nav Foley MD FACC, FACP, EL in this encounter Plan of Treatment +--------+ [...] 2018 | Visit | | [address] | | | | | | [place] | | | | | | [address] | | | | | | | | +--------+ + + + + | 06/04/ | Office | Cardiology | Nav Foley, | | | 2018 | Visit | | MD [address] | | | | | | [place] [address] | | | | | | [phone] | | | | | | | | +--------+ + + + + as of this encounter Visit Diagnoses + + | Diagnosis | + + | Non-ischemic cardiomyopathy - Primary | + + | Other primary cardiomyopathies | + +
--- OUTSIDE RECORDS SUMMARY | ~2019-01-20 | XMS | Encounter Summary ---
Demographics + + + | Address | [address] | | | [place] [address] | + + + | Home Phone | | + + + | Preferred Language | Unknown | + + + | Marital Status | | + + + | Anabaptism Affiliation | Unknown | + + + | Race | Unknown | + + + | Ethnic Group | Unknown | + + + Author + + + | Author | [facility] | + + + | Organization | [facility] | + + + | Address | Unknown | + + + | Phone | Unavailable | + + + Support + + +---------+ + | Name | Relationship | Address | Phone | + + +---------+ + | Champ Abraham | ECON | Unknown | | + + +---------+ + Care Team Providers + +------+ + | Care Light Rail Vehicle Operator Name | Role | Phone | [...] + + | 11/13/ | Documentati | KATHLEEN Andrews | Fransisca Shoemaker | Cardiac | | 2019 | on Only | Cardiology Jessika | | Resynchronization | | | | [address] | | Therapy - | | | | [place], [place] | | Defibrillator | | | | [address] | | (remote) | | | | [phone] | | | +--------+ + + + [...] of this encounter Progress Fransisca Choi - 11/13/2018 8:00 AM PDTFormatting of this note may be different from tonya graham. ICD REMOTE INTERROGATION REPORT Name: Jared Abraham PCP: Carla Murphy : 1945 Primary cardiology provider: Poppy Rodriguez Primary electrophysiology provider: Constantin Chavez Device cager operator: Medtronic Device type: Biventricular Battery Longevity: 4.7 yrs RV Pacin.5% BiV Pacin.9% (1.4% VSR) INTERROGATION RESULTS: Please see the full interrogation report attached Known history of atrial flutter or atrial fibrillation: No Current antithrombotic therapy including: N/A Mode switches: 17 AT/AF episodes <1min. VT/VF Detections: 1 VT NS lasting 3 sec 234 bpm. Lead function: Lead impedance and threshold value trends have been reviewed and are accepta ble based on most recent evaluation. CHF: Congestive heart failure parameters and trends have been reviewed and are stable Follow up: The next scheduled interrogation will be in 5 weeks via remote transmission. Additional comments: None. IMPRESSION: 1. Normal ICD function. 2. AT/AF noted as above. 3. No VT/VF therapies have been given since the last interrogation. Testing reviewed by: Fransisca Shoemaker [facility] Cardiology Associated attestation - Mary Tipton NP - 11/14/2018 12:07 PM PDTAppropriate device funct ion MORRO Lin in this encounter Plan of Treatment +--------+ [...] [place] | | | | | | [address] | | | | | | | | +--------+ + + + + | 06/04/ | Office | Cardiology | Nav Foley, | | | 2018 | Visit | | MD [address] | | | | | | [place] [address] | | | | | | [phone] | | | | | | | | +--------+ + + + + as of this encounter Visit Diagnoses + + | Diagnosis | + + | Non-ischemic cardiomyopathy - Primary | + + | Other primary cardiomyopathies | + + | History of ventricular tachycardia | + + | Personal history of other diseases of circulatory system | + + | Syncope and collapse | + +"
--- OUTSIDE RECORDS SUMMARY | ~2019-01-20 | XMS | Encounter Summary ---
Demographics + + + | Address | [address] | | | [place] [address] | + + + | Home Phone | | + + + | Preferred Language | Unknown | + + + | Marital Status | | + + + | Jainism Affiliation | Unknown | + + + | Race | Unknown | + + + | Ethnic Group | Unknown | + + + Author + + + | Author | [email or web address] | + + + | Organization | [email or web address] | + + + | Address | Unknown | + + + | Phone | Unavailable | + + + Support + + +---------+ + | Name | Relationship | Address | Phone | + + +---------+ + | Champ Abraham | ECON | Unknown | | + + +---------+ + Care Team Providers + +------+ + | Care Marine Railway Operator Name | Role | Phone | [...] [place] | | | | | | [address] | | | | | | [phone] | | | +--------+ + + + [...] [place] | | | | | | [address] | | | | | | | | +--------+ + + + + | 06/04/ | Office | Cardiology | Nav Foley, | | | 2019 | Visit | | MD [address] | | | | | | [place] [address] | | | | | | [phone] | | | | | | | | +--------+ + + + + as of this encounter Visit Diagnoses Not on filein this encounter"
--- OUTSIDE RECORDS SUMMARY | ~2019-01-20 | XMS | Encounter Summary ---
Demographics + + + | Address | [address] | | | [place] [address] | + + + | Home Phone | | + + + | Preferred Language | Unknown | + + + | Marital Status | | + + + | Mormonism Affiliation | Unknown | + + + | Race | Unknown | + + + | Ethnic Group | Unknown | + + + Author + + + | Author | [facility] | + + + | Organization | [facility] | + + + | Address | Unknown | + + + | Phone | Unavailable | + + + Support + + +---------+ + | Name | Relationship | Address | Phone | + + +---------+ + | Champ Abraham | ECON | Unknown | | + + +---------+ + Care Team Providers + +------+ + | Care Screen Vent Binder Name | Role | Phone | + [...] | (Primary Dx); | | | | [facility] [address] | [place] [address] | Cardiac | | | | [place] [address] | [phone] | resynchronization | | | | [phone] | | therapy | | | | | | defibrillator | | | | | | (DRILLER MACHINE-D) in place; | | | | | [...] Mr. Jared Abraham , who goes [facility], is a 73 year old man who [...] He was scheduled to follow-up with Dr. Floey 3 weeks ago, but appointment had to be canceled due to severe weather conditions. He will be seeing Dr. Foley again Today, I reviewed all previous documentation available to me in electronic medical [address] and from external sources. He has a history of Ischemic cardiomyopathy with angiogram performed in October 2008 showin g normal coronaries, history of ventricular tachycardia with insertion of DRILLER MACHINE-D in January 2010 and most recent generator [...] overload per Opti vol monitoring with his DRILLER MACHINE-D device, on August 30, September 06, September [...] due to poor activity tolerance. Lives in [place]. , lost his fiancee in 2001 when she in a car crash after being hit by distracted driver license reviewing officer on a cell phone Outpatient Medications Prior to Visit Medication Sig Dispense Refill aspirin 81 MG EC tablet Take 81 mg by mouth daily. atorvastatin (LIPITOR) 20 MG tablet Take 20 mg by mouth nightly. Cholecalciferol (VITAMIN D3) 05572 UNITS CAPS Take 5,000 Int'l Units by [...] or wheezing noted, respirations unl abored HEART: DRILLER MACHINE-D site to CHIKA, stable to palpation, well [...] No results found for: METF, NMETFX, TFNMFX, [id number], [id number], TOTEPI CARDIAC PROCEDURES/IMAGING last angiogram: 11/05/2008: Normal coronaries, consistent with nonischemic cardiomyopathy EF 15-20 percent.. VASCULAR TESTING AND PROCEDURES DRILLER MACHINE-D Implant : MDT DRILLER MACHINE-D by Dr. Martinez. in January 2010., Generator change by Dr. Delarosa in viva xt DRILLER MACHINE D MDT number [id number].Patient has a 5076 atrial lead Medtronic. 6947 Sprin t Quattro Medtronic RV lead and 4195 Starfix Medtronic LV lead. All leads were implanted in January 2010. Last DRILLER MACHINE-D interrogation: 09/23/2018: Battery longevity( 3.7-5.9y) 4.8 years/2.97V.PROCESSING TECHNICIAN 2.73 V RA pacing 30.79 percent, RV pacing 99.04 percent, DRILLER MACHINE pacing 98.92 percent. Lead impeda nce WNL. [...] terminated episode. No shocks. No aborted charges. DRILLER MACHINE-D interrogation: 09/04/2018: Battery longevity 4.9 years/2.98 V ( PROCESSING TECHNICIAN 2.73V) . Lead impe ndence WNL. Thresholds [...] 3 pounds o apurva a 24-hour period DRILLER MACHINE-D Quick Look: 08/17/2018: ( [facility] admission for syncope) : Longevity of 5 [...] complexes him a PVCs. Rate 72 bpm, WI 112 ms, QRS 150 ms, QTC 494 ms tracing personally reviewed by me EK10/10/2018: Atrially paced rhythm, occasional PVC. Rate 84 bpm, WI 178 ms, QRS 174 ms, QTC 531 [...] Non-ischemic cardiomyopathy 2. Cardiac resynchronization therapy defibrillator (DRILLER MACHINE-D) in place 3. Non-sustained ventricular tachycardia 4. History of ventricular tachycardia 5. Essential hypertension 6. Nocturnal hypoxemia 7. MOISÉS (obstructive sleep apnea) 8. S/P AAA repair 9. Controlled type 2 diabetes mellitus without complication, without long-term current use of insulin ([facility]) 10. Encounter for monitoring diuretic therapy Orders [...] past surgical history. Problem list. MORRO Peterson [facility] Cardiology 10/28/2018in this encounter Plan of Treatment +--------+ + + + + | Date | Type | Specialty | Care Team | Description | +--------+ + + + + | 01/28/ | Documentati | Cardiology | | | | 2018 | on Only | | | | +--------+ + + + + | 01/28/ | Office | Cardiology | Mary Tipton, INSTRUCTOR DRAMATIC ARTS | | | 2018 | Visit | | [address] | | | | | | [facility] [place] | | | | | | [address] | | | | | | | | +--------+ + + + + | 06/04/ | Office | Cardiology | Nav Foley, | | | 2018 | Visit | | MD [address] | | | | | | [place] [address] | | | | | | [phone] | | | | | | | [...] + + | Cardiac resynchronization therapy defibrillator (DRILLER MACHINE-D) in place | + + | Non-sustained [...]
--- OUTSIDE RECORDS SUMMARY | ~2019-01-20 | XMS | Encounter Summary ---
Demographics + + + | Address | [address] | | | [place] [address] | + + + | Home Phone | | + + + | Preferred Language | Unknown | + + + | Marital Status | | + + + | Buddhist Affiliation | Unknown | + + + | Race | Unknown | + + + | Ethnic Group | Unknown | + + + Author + + + | Author | [facility] | + + + | Organization | [facility] | + + + | Address | Unknown | + + + | Phone | Unavailable | + + + Support + + +---------+ + | Name | Relationship | Address | Phone | + + +---------+ + | Champ Abraham | ECON | Unknown | | + + +---------+ + Care Team Providers + +------+ + | Care Automotive Service Director Name | Role | Phone | [...] | | | | | [place] [address] | | | | | | [phone] | | | +--------+ + + + [...] [place] | | | | | | [address] | | | | | | | | +--------+ + + + + | 06/04/ | Office | Cardiology | Nav Foley, | | | 2018 | Visit | | MD [address] | | | | | | [place] [address] | | | | | | [phone] | | | | | | | | +--------+ + + + + as of this encounter Visit Diagnoses Not on filein this encounter"
--- OUTSIDE RECORDS SUMMARY | ~2019-01-20 | XMS | Encounter Summary ---
Demographics + + + | Address | [address] | | | [place] [address] | + + + | Home Phone | | + + + | Preferred Language | Unknown | + + + | Marital Status | | + + + | Mu-Ism Affiliation | Unknown | + + + | Race | Unknown | + + + | Ethnic Group | Unknown | + + + Author + + + | Author | [facility] | + + + | Organization | [facility] | + + + | Address | Unknown | + + + | Phone | Unavailable | + + + Support + + +---------+ + | Name | Relationship | Address | Phone | + + +---------+ + | Champ Abraham | ECON | Unknown | | + + +---------+ + Care Team Providers + +------+ + | Care English Teacher Name | Role | Phone | [...] | Therapy - | | | | [place], [place] | | Defibrillator | | | | [address] | | (remote) | | | | [phone] | | | +--------+ + + + [...] Rodriguez Primary electrophysiology provider: Constantin Chavez Device asset specialist: Medtronic Device type: Biventricular Battery Longevity: 4.7 [...] last interrogation. Testing reviewed by: Fransisca Shoemaker [facility] Associated attestation - Mary Tipton NP [...] [place] | | | | | | [address] | | | | | | | | +--------+ + + + + | 06/04/ | Office | Cardiology | Nav Foley, | | | 2018 | Visit | | MD [address] | | | | | | [place] [address] | | | | | | [phone] | | | | | | | [...]
--- OUTSIDE RECORDS SUMMARY | ~2019-01-20 | XMS | Encounter Summary ---
Demographics + + + | Address | [address] | | | [place] [address] | + + + | Home Phone | | + + + | Preferred Language | Unknown | + + + | Marital Status | | + + + | Sabianism Affiliation | Unknown | + + + | Race | Unknown | + + + | Ethnic Group | Unknown | + + + Author + + + | Author | [facility] | + + + | Organization | [facility] | + + + | Address | Unknown | + + + | Phone | Unavailable | + + + Support + + +---------+ + | Name | Relationship | Address | Phone | + + +---------+ + | Champ Abraham | ECON | Unknown | | + + +---------+ + Care Team Providers + +------+ + | Care Hospice Clinical Manager Name | Role | Phone [...] | 2019 | on Only | [facility] [place] | | Labs 11/28/2018) | | | | [address] [facility] [address] | | | | | [address] | | | | | | [place] [address] | | | | | | [phone] | | | +--------+ + + + [...] [place] | | | | | | [address] | | | | | | | | +--------+ + + + + | 06/04/ | Office | Cardiology | Nav Foley, | | | 2019 | Visit | | MD [address] | | | | | | [place] [address] | | | | | | [phone] | | | | | | | | +--------+ + + + + as of this encounter Visit Diagnoses Not on filein this encounter"
--- OUTSIDE RECORDS SUMMARY | ~2019-01-20 | XMS | Encounter Summary ---
Demographics + + + | Address | [address] | | | [place] [address] | + + + | Home Phone | | + + + | Preferred Language | Unknown | + + + | Marital Status | | + + + | Denominational Affiliation | Unknown | + + + | Race | Unknown | + + + | Ethnic Group | Unknown | + + + Author + + + | Author | [facility] | + + + | Organization | [facility] | + + + | Address | Unknown | + + + | Phone | Unavailable | + + + Support + + +---------+ + | Name | Relationship | Address | Phone | + + +---------+ + | Champ Abraham | ECON | Unknown | | + + +---------+ + Care Team Providers + +------+ + | Care Rheologist Name | Role | Phone | + [...] | | | [address] | [place] [address] | (Primary Dx) | | | | [place], [place] | [phone] | | | | | [address] | | | | | | [phone] | | | +--------+---------+ + + + [...] mg by mouth nightly. Cholecalciferol (VITAMIN D3) 70082 UNITS CAPS Take 5,000 Int'l Units by [...] 1. Nonischemic cardiomyopathy. Ejection fraction 30-35% 2. GREY WASHER in situ. 3. Normal coronary anatomy. 4. [...] . Cardiac Medications: Continue as prescribed. Nav Foely MD FACC, FACP, FASNC FOLLOW UP : [...] mg by mouth nightly. Cholecalciferol (VITAMIN D3) 51928 UNITS CAPS Take 5,000 Int'l Units by [...] | | | | | [place] | | | | | | [address] | | | | | | | | +--------+ + + + + | 06/04/ | Office | Cardiology | Nav Foley, | | | 2018 | Visit | | MD [address] | | | | | | [place] [address] | | | | | | [phone] | | | | | | | | +--------+ + + + + as of this encounter Visit Diagnoses + + | Diagnosis | + + | Non-ischemic cardiomyopathy - Primary | + + | Other primary cardiomyopathies | + +
--- OUTSIDE RECORDS SUMMARY | ~2019-01-20 | XMS | Clinical Summary ---
Demographics + + + | Address | [address] | | | [place] [address] | + + + | Home Phone | | + + + | Preferred Language | Unknown | + + + | Marital Status | | + + + | Restoration Affiliation | Unknown | + + + | Race | Unknown | + + + | Ethnic Group | Unknown | + + + Author + + + | Author | [facility] | + + + | Organization | [facility] | + + + | Address | Unknown | + + + | Phone | Unavailable | + + + Support + + +---------+ + | Name | Relationship | Address | Phone | + + +---------+ + | Champ Velázquez | ECON | Unknown | | + + +---------+ + Care Team Providers + +------+ + | Care Engine Emission Technician Name | Role | Phone | [...] | | Activ | | (VITAMIN D3) 00146 | Units by mouth | | | [...] DM II (diabetes mellitus, type II), controlled ([facility]) | 08/18/2018 | + + [...] pickleball, since he was 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 Chiang in January | | 2009.Generator change by Dr. Delarosa in 2014 viva xt PAY PER CLICK STRATEGIST D MDT | | number [id number].Patient has a 5076 atrial lead Medtronic. 6947 [...] QRS duration of over 160 ms. A PAY PER CLICK STRATEGIST defibrillator | | was subsequently placed by [...] defibrillator | | | | | | (PAY PER CLICK STRATEGIST-D) in place; | | | | | [...] | | | | | | [place], [place] | | | | | | [address] | | | | | | | | +--------+ + + + + | 06/04/ | Office | | Nav Foley, | | | 2018 | Visit | | MD [address] | | | | | | [place] [address] | | | | | | [phone] | | | | | | | [...] / Lot | + +--------+------+ +--------+--------+--------+ | Account Manager Trainee-D-05/17/2015Implanted: | Cardia | | MEDTRONIC - | [...] +------+-------+ + | MEDICARE | MEDICA | [id number] | | | [address] | | | RE | | | | [place], [place] [address] | | | IP-OP | | | | | + +--------+ +------+-------+ + | COMMERCIAL OTHER | TRANSA | [id number] | | | | | | MERICA [...] MICHAEL | al/Serjio | | 1945 | [phone] | [place] | | | chas | | | 1964 | [address] | + +--------+ +--------+ + +
[~2019-01-20 03:59] MED LIST changes: +DIGITEK250 MCG PO
--- OUTSIDE RECORDS SUMMARY | 2019-01-20 04:02 | XMS ---
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 [facility] NOTE: Visits indicate total known visits. ED/C VISIT TRACKING (12 MO.) 01/20/2019 04:00 [facility] [place] TYPE: Emergency COMPLAINT: - BLEEDING OUT OF RIGHT 08/17/2018 22:29 [facility] TYPE: Emergency DIAGNOSES: - Irregular Heart Beat 08/17/2018 17:04 [facility] [place] TYPE: Emergency COMPLAINT: - CHEST PAINS DIAGNOSES: - Allergy status to narcotic agent status - Allergy status to penicillin - Presence of cardiac pacemaker - Other moth exterminator (current) drug therapy - Syncope and collapse - Allergy status to other drugs, medicaments and biological substances status - Chest pain, unspecified 05/13/2018 16:48 [facility] [place] TYPE: Emergency COMPLAINT: - STROKE LIKE SYMPTOMS DIAGNOSES: - Slurred speech - remote computer terminal operator (current) use of anticoagulants - Allergy status to narcotic agent status - Allergy status to penicillin - detention (current) use of aspirin - remote computer terminal operator (current) use of oral hypoglycemic drugs - Allergy status to other drugs, medicaments and biological substances status - Transient cerebral ischemic attack, unspecified - Other half-way (current) drug therapy - Essential (primary) hypertension - Hypotension, unspecified 04/15/2018 16:25 [facility] [place] TYPE: Emergency COMPLAINT: - HEADACHE 03/27/2018 16:01 [facility] [place] TYPE: Emergency COMPLAINT: - BP PROBLEM DIAGNOSES: - Allergy status to narcotic agent status - Other half-way (current) drug therapy - detention (current) use of aspirin - Adverse effect of unspecified drugs, medicaments and biological substances, initial encounter - Hypotension due to drugs - Dizziness and giddiness - Allergy status to other drugs, medicaments and biological substances status - Essential (primary) hypertension - Allergy status to penicillin INPATIENT VISIT TRACKING (12 MO.) 08/17/2018 22:29 [facility] TYPE: General Medicine DIAGNOSES: - Irregular Heart Beat - Syncope and collapse - Ventricular tachycardia 04/15/2018 16:26 [facility] [place] TYPE: Observation COMPLAINT: - TIA DIAGNOSES: - Other allergy status, other than to drugs and biological substances - detention (current) use of aspirin - Transient cerebral ischemic attack, unspecified - Dysphagia, unspecified - Allergy status to penicillin - Idiopathic sleep related nonobstructive alveolar hypoventilation - Type 2 diabetes mellitus without complications - Other chest pain - Allergy status to narcotic agent status - Dysarthria and anarthria - remote computer terminal operator (current) use of oral hypoglycemic drugs - Headache - Hypertensive heart disease with heart failure - Other moth exterminator (current) drug therapy - Fatty (change of) liver, not elsewhere classified - Hypothyroidism, unspecified - Presence of automatic (implantable) cardiac defibrillator - Obstructive sleep apnea (adult) (pediatric) - Ventricular tachycardia - Chronic systolic (congestive) heart failure - Occlusion and stenosis of left vertebral artery [email or web address]
== END 2019-01-20 04:45 | disposition home or self-care (01) ==
LOC: ED 03:59
DX: H72.91 Unspecified perforation of tympanic membrane, right ear (principal); H66.91 Otitis media, unspecified, right ear; I10 Essential (primary) hypertension; Z95.0 Presence of cardiac pacemaker; Z90.49 Acquired absence of other specified parts of digestive tract; Z88.0 Allergy status to penicillin; Z88.5 Allergy status to narcotic agent; Z88.6 Allergy status to analgesic agent; Z88.8 Allergy status to other drugs, medicaments and biological substances; Z79.82 Long term (current) use of aspirin; Z79.899 Other long term (current) drug therapy; Z79.84 Long term (current) use of oral hypoglycemic drugs
CPT/HCPCS: 99282

== ENCOUNTER 2019-05-26 14:12 | Emergency (ER) | payer MEDICARE, OTHER ==
[~2019-05-26] VITALS: Ht 177.8 cm; Wt 108.4 kg
--- OUTSIDE RECORDS SUMMARY | ~2019-05-26 | XMS | Clinical Summary ---
Demographics + + + | Address | [address] | | | [place] [address] | + + + | Home Phone | | + + + | Preferred Language | Unknown | + + + | Marital Status | | + + + | Zoroastrianism Affiliation | Unknown | + + + | Race | Unknown | + + + | Ethnic Group | Unknown | + + + Author + + + | Author | [facility] (Historical as of | | | 04-05-19) | + + + | Organization | [facility] (Historical as of | | | 04-05-19) | + + + | Address | Unknown | + + + | Phone | Unavailable | + + + Support + + +---------+ + | Name | Relationship | Address | Phone | + + +---------+ + | Champ Velázquez | ECON | Unknown | | + + +---------+ + Care Team Providers + +------+ + | Care Furniture Shampooer Name | Role | Phone | + +------+ + | Carla Murphy PA-C | PP | | + +------+ + Allergies + + + + + + | Active Allergy | Reactions | Severity | Noted | Comments | | | | | Date | | + + + + + + | Amiodarone | Other (See Comments) | Medium | 10/10/19 | Blurry vision, | | | | | 19 | stomach pain, | | | | | | constipation | + + + + + + | Codeine | Anaphylaxis, Other | High | 11/12/19 | Heart stops | | | (See Comments) | | 14 | 08/18/18 Patient | | | | | | says he tolerated | | | | | | morphine at st | | | | | | anthonys | + + + + + + | Meperidine | Other (See | High | 11/12/19 | Heart stops | | | Comments), | | 14 | 08/18/18 Patient | | | Angioedema | | | says he tolerated | | | | | | morphine at st | | | | | | anthonys | + + + + + + | Digoxin And Related | Other (See Comments) | Medium | 12/05/19 | Low BP | | | | | 19 | | + + + + + + | Nitroglycerin | Other (See Comments) | Medium | 11/12/19 | Liquid nitro Heart | | | | | 14 | stops | + + + + + + | Orphenadrine | Anaphylaxis, Other | High | 11/12/19 | Heart stops | | | (See Comments) | | 14 | 08/18/18 Patient | | | | | | says he tolerated | | | | | | morphine at st | | | | | | anthonys | + + + + + + | Penicillins | Rash | Medium | 11/12/19 | | | | | | 14 | | + + + + + + | Oxycodone-Aspirin | Other (See Comments) | High | 09/17/19 | Heart Stops | | | | | 15 | 08/18/18 Patient | | | | | | says he tolerated | | | | | | morphine at st | | | | | | anthonys | + + + + + + Current Medications + + +--------+---------+------+------+-------+ | Prescription | Sig. | Disp. | Refills | Star | End | Statu | | | | | | t | Date | s | | | | | | Date | | | + + +--------+---------+------+------+-------+ | aspirin 81 MG EC | Take 81 mg by mouth | | | | | Activ | | tablet | daily. | | | | | e | + + +--------+---------+------+------+-------+ | levothyroxine | Take 88 mcg by mouth | | | | | Activ | | (SYNTHROID) 88 MCG | every morning | | | | | e | | tablet | before breakfast. Pt | | | | | | | | taking 88 mcg daily | | | | | | + + +--------+---------+------+------+-------+ | Cholecalciferol | Take 5,000 Int'l | | | | | Activ | | (VITAMIN D3) 5000 | Units by mouth | | | | | e | | units | daily. | | | | | | | TABSIndications: | | | | | | | | once a week | | | | | | | + + +--------+---------+------+------+-------+ | loratadine | Take 10 mg by mouth | | | | | Activ | | (CLARITIN) 10 MG | daily. | | | | | e | | tablet | | | | | | | + + +--------+---------+------+------+-------+ | atorvastatin | Take 20 mg by mouth | | | | | Activ | | (LIPITOR) 20 MG | nightly. | | | | | e | | tablet | | | | | | | + + +--------+---------+------+------+-------+ | Magnesium 250 MG | Take 250 mg by mouth | | | | | Activ | | TABS tablet | daily. | | | | | e | + + +--------+---------+------+------+-------+ | clopidogrel | Take 75 mg by mouth | | | | | Activ | | (PLAVIX) 75 MG | daily. | | | | | e | | tablet | | | | | | | + + +--------+---------+------+------+-------+ | metoprolol | Take 1 tablet by | 30 | 0 | 01/0 | 02/2 | Activ | | (TOPROL-XL) 25 MG 24 | mouth daily for 30 | tablet | | 1/20 | 1/20 | e | | hr tablet | days. | | | 19 | 20 | | + + +--------+---------+------+------+-------+ | metFORMIN | Take 1 tablet by | | | 03/0 | | Activ | | (GLUCOPHAGE-XR) 500 | mouth daily. | | | 7/20 | | e | | MG 24 hr tablet | | | | 19 | | | + + +--------+---------+------+------+-------+ | furosemide (LASIX) | Take 2 tablets by | 60 | 11 | 10/18 | | Activ | | 20 MG tablet | mouth daily. | tablet | | 09/08 | | e | | | | | | 19 | | | + + +--------+---------+------+------+-------+ Active Problems + + + | Problem | Noted Date | + + + | DM II (diabetes mellitus, type II), controlled ([facility]) | 08/18/2018 | + + + | Syncope and collapse | 08/17/2018 | + + + | History of ventricular tachycardia | 08/17/2018 | + + + | Hypothyroidism | 08/17/2018 | + + + | HTN (hypertension) | 08/17/2018 | + + + | Morbid obesity (HCC) | 07/10/2017 | + + + + + | Overview: Weight loss was strongly encouraged. He needs to | | get involved in an exercise program. 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 Has adjusted his diet. | + + + + + | Posttraumatic stress disorder | 07/10/2017 | + + + + + | Overview: He was buried alive at age 12 and has had | | claustrophobia since then. Hasn't been able to tolerate CPAP as | | a result. I suggested possible psychiatric evaluation and | | treatment but he didn't seem very interested. Other doctors | | have suggested hypnosis and he is not interested in that either. | + + + + + | Cardiac resynchronization therapy defibrillator (FORESTRY CREW CHIEF-D) in place | 01/21/2017 | + + + + + | Overview: History of nonischemic cardiomyopathy, NYHA class | | II, status post implantation of a MDT FORESTRY CREW CHIEF-D by Dr. Chiang in January | | 2009.Generator change by Dr. Delarosa in 2014 viva xt FORESTRY CREW CHIEF D MDT | | number [id number].Patient has a 5076 atrial lead Medtronic. 6947 | | Sprint Quattro Medtronic RV lead and 4195 Starfix Medtronic LV | | lead. All leads were implanted in January 2010.01/28/2019Appropriate | | device function seen. Normal lead thresholds and battery status. | | Device was adjusted to optimize battery length while maintaining | | adequate safety margins. 1 episode NSVT lasting 3 seconds. | + + + + + | Non-sustained ventricular tachycardia | 01/21/2017 | + + + + + | Overview: 01/28/2019Continue beta magda therapy. He could | | not tolerate higher doses of his CHF medications | + + + + + | MOISÉS (obstructive sleep apnea) | 01/21/2017 | + + + + + | Overview: He is obese and has sleep apnea. Did not tolerate | | a CPAP mask. I recommended getting back with a sleep doctor and | | trying nasal pillows. He is currently using nasal cannula oxygen | | but "Medicare won't pay for that anymore". I told him he should | | consider buying his own concentrator. Definitely needs to lose | | weight.01/28/2019He is going to trial alternate mask therapy. | + + + + + | Nocturnal hypoxemia | 03/24/2016 | + + + | Dyspnea on exertion | 03/24/2016 | + + + | Allergic rhinitis | 03/24/2016 | + + + | Emphysema of lung (HCC) | 10/24/2015 | + + + | Non-ischemic cardiomyopathy (HCC) | 05/27/2015 | + + + + + | Overview: A cardiac catheterization in October 2008 revealed no | | significant coronary disease and the ejection fraction on the | | left ventriculogram was 15-20%. He had a left bundle branch | | block with a QRS duration of over 160 ms. A FORESTRY CREW CHIEF defibrillator | | was subsequently placed by Dr. Chiang in 2009.Did not tolerate | | carvedilol because of hypotension. Have recommended increasing | | metoprolol succinate to 12.5 mg bid For 2 weeks, then 37.5 mg per | | day for 2 weeks and then 50 mg per day. He had digoxin 0.25 mg | | per day. The ejection fraction was 35% in April 2015. He is | | still complaining of exertional fatigue and shortness of | | breath.Overview: EF 35-40%, class 2-3 symptoms, s/p | | AICD01/28/2019Euvolemic on exam today. Cont GDMT per Dr. Foley and | | Meli. He has had trouble tolerating uptitration of | | medications in the past. | + + + + + | S/P AAA repair | 09/24/2014 | + + + + + | Overview: History of repair September 24, 2014 | + + Resolved Problems + + + + | Problem | Noted | Resolved | | | Date | Date | + + + + | MOISÉS (obstructive sleep apnea) | 08/18/20 | | | | 18 | 9 | + + + + | Hypotension | 01/22/20 | | | | 17 | 8 | + + + + + + | Overview: Has not tolerated much afterload reduction. | + + + + + + | AAA (abdominal aortic aneurysm) | 09/24/19 | | | | 15 | 8 | + + + + Family History + + +------+ + | Medical History | Relation | Name | Comments | + + +------+ + | Leukemia | Brother | | | + + +------+ + | Gout | Father | | | + + +------+ + | Heart defect | Mother | | | + + +------+ + | Heart disease | Mother | | | + + +------+ + | Bowel Disease | Sister | | | + + +------+ + | CVA | Sister | | | + + +------+ + + +------+ + + | Relation | Name | Status | Comments | + +------+ + + | Brother | | | | + +------+ + + | Father | | | | + +------+ + + | Mother | | | | + +------+ + + | Sister | | | | + +------+ + + Social History + +-------+ +--------+------+ [...] on file | | + + + Last Filed Vital Signs + + + + | Vital Sign | Reading | Time Taken | + + + + | Blood Pressure | 142/70 | 01/28/2019 3:01 PM PDT | + + + + | Pulse | 89 | 01/28/2019 3:01 PM PDT | + + + + | Temperature | 36.5 C (97.7 F) | 08/19/2018 11:24 AM PST | + + + + | Respiratory Rate | 18 | 10/28/2018 12:31 PM PDT | + + + + | Oxygen Saturation | 95% | 01/28/2019 3:01 PM PDT | + + + + | Inhaled Oxygen | - | - | | Concentration | | | + + + + | Weight | 108 kg (238 lb) | 01/28/2019 3:01 PM PDT | + + + + | Height | 177.8 cm (5' 10") | 01/28/2019 3:01 PM PDT | + + + + | Body Mass Index | 34.15 | 01/28/2019 3:01 PM PDT | + + + + Plan of Treatment +--------+ + + + + | Date | Type | Specialty | Care Team | Description | +--------+ + + + + | 06/04/ | Office | | Nav Foley, | | | 2019 | Visit | | MD [address] | | | | | | [place] [address] | | | | | | [phone] | | | | | | | | +--------+ + + + + | 07/30/ | Office | | Mary Tipton NP | | | 2019 | Visit | | [address] | | | | | | [place], [place] | | | | | | [address] | | | | | | | | +--------+ + + + + | 07/30/ | Documentati | | | | | 2018 | on Only | | | | +--------+ + + + + + + + + + | Health Maintenance | Due Date | Last Done | Comments | + + + + + | Diabetic Eye Exam | | | | | | 7 | | | + + + + + | Diabetic Foot Exam | | | | | | 7 | | | + + + + + | Microalbumin | | | | | Screening | 7 | | | + + + + + | Vaccine: | | | | | Dtap/Tdap/Td (1 - | 6 | | | | Tdap) | | | | + + + + + | Colon Cancer | | | | | Screening | 7 | | | | (Colonoscopy) | | | | + + + + + | Vaccine: Zoster (1 | | | | | of 2) | 7 | | | + + + + + | Vaccine: | | | | | Pneumococcal 65+ | 2 | | | | Low/Medium Risk (1 | | | | | of 2 - PCV13) | | | | + + + + + | Hemoglobin A1c | | 08/18/2018 | | | | 9 | | | + + + + + | Vaccine: Influenza | | | | | (#1) | 9 | | | + + + + + Implants + +--------+------+ +--------+--------+--------+ | Implanted | Type | Area | Manufacture | Device | Expira | Model | | | | | r | | tion | / | | | | | | Identi | Date | Serial | | | | | | fier | | / Lot | + +--------+------+ +--------+--------+--------+ | Information Systems Security Developer-D-05/17/2015Implanted: | Cardia | | MEDTRONIC - | | | | | 05/17/2015 by Uvaldo Delarosa | c | | MEDT | | | /[id number] | | MD [place]ita (Quantity not on file) | Rhythm | | | | | [id number] | | | | | | | | / | | | Manage | | | | | | | | ment | | | | | | + +--------+------+ +--------+--------+--------+ | Endurant EndograftImplanted: | Endogr | | MEDTRONIC | | | | | 09/23/2014 by Vincent Fields MD | aft | | | | | /[id number] | | (Quantity not on file) | | | | | | [id number] / | + +--------+------+ +--------+--------+--------+ | Endurant EndograftImplanted: | Endogr | | | | | | | 09/23/2014 by Vincent Fields MD | aft | | | | | /[id number] | | (Quantity not on file) | | | | | | [id number] / | + +--------+------+ +--------+--------+--------+ | Endurant EndograftImplanted: | Endogr | | [employer]TR[employer]IC | | | | | 09/23/2014 by Vincent Fields MD | aft | | | | | /[id number] | | (Quantity not on file) | | | | | | 4047 / | + +--------+------+ +--------+--------+--------+ Results Not on filefrom Last 3 Months Insurance + +--------+ +------+-------+ + | Payer | Benefi | Subscriber | Type | Phone | Address | | | t Plan | ID | | | | | | / | | | | | | | Group | | | | | + +--------+ +------+-------+ + | MEDICARE | MEDICA | [id number] | | | [address] | | | RE | | | | [place] [phone] | | | IP-OP | | | | | + +--------+ +------+-------+ + | COMMERCIAL OTHER | TRANSA | [id number] | | | | | | [place]ICA | | | | | | | LIFE | | | | | + +--------+ +------+-------+ + + +--------+ +--------+ + + | Guarantor Name | Accoun | Relation to | Date | Phone | Billing Address | | | t Type | Patient | of | | | | | | | | | | + +--------+ +--------+ + + | FRANCI VELÁZQUEZ | Person | Self [birth year] | Home: | [address] | | MICHAEL | brinda/Serjio | | 1945 | [phone] | [place] | | | chas | | | 1964 | [phone] | + +--------+ +--------+ + +
--- OUTSIDE RECORDS SUMMARY | ~2019-05-26 | XMS | Clinical Summary ---
Demographics + + + | Address | [address] | | | [place] [address] | + + + | Home Phone | | + + + | Preferred Language | Unknown | + + + | Marital Status | | + + + | Roman Catholic Affiliation | Unknown | + + + | Race | Unknown | + + + | Ethnic Group | Unknown | + + + Author + + + | Author | [facility] | | | and [place] | + + + | Organization | [facility] | | | and [...] Team Providers + +------+ + | Care Service Car Operator Name | Role | Phone | + +------+ + | Carla Murphy | PCP | | | PA-C | | | + +------+ + Allergies + [...] + + + + | Meperidine | Anaphylaxis, Other | High | 11/12/19 [...] + + + + | Penicillins | Hives | | 10/19/19 | | | | | | 16 | | + + + + + + | Oxycodone | Anaphylaxis | High | 10/19/19 | | | | | | 16 | | + + + + + + Medications + + + +---------+------+------+-------+ | Medication | Sig | Dispensed | Refills | Star | End | Statu | | | | | | t | Date | s | | | | | | Date | | | + + + +---------+------+------+-------+ | fluticasone | 1 spray by Nasal | | 0 | | | Activ | | (FLONASE) 50 | route Daily. | | | | | e | | mcg/nasal spray | | | | | | | + + + +---------+------+------+-------+ | spironolactone | Take 25 mg by mouth | | 0 | | | Activ | | (ALDACTONE) 25 mg | Daily. 1/2 tab daily | | | | | e | | tablet | | | | | | | + + + +---------+------+------+-------+ | metoprolol | Take 25 mg by mouth | | 0 | | | Activ | | tartrate (LOPRESSOR) | Daily. | | | | | e | | 25 mg tablet | | | | | | | + + + +---------+------+------+-------+ | aspirin 81 mg EC | Take 81 mg by mouth | | 0 | | | Activ | | tablet | Daily. | | | | | e | + + + +---------+------+------+-------+ | levothyroxine | Take one tablet | | 0 | 02/1 | | Activ | | (SYNTHROID, | daily | | | 5/20 | | e | | LEVOTHROID) 75 MCG | | | | 16 | | | | tablet | | | | | | | + + + +---------+------+------+-------+ | tiotropium | Inhale contents of | 30 | 5 | 03/0 | | Activ | | (SPIRIVA HANDIHALER) | one capsule once | capsule | | 4/20 | | e | | 18 mcg inhalation | daily (do not | | | 16 | | | | capsule | swallow capsules) | | | | | | + + + +---------+------+------+-------+ | cetirizine | Take one tablet | | 0 | | | Activ | | (ZYRTEC) 10 mg | daily | | | | | e | | tablet | | | | | | | + + + +---------+------+------+-------+ | albuterol 90 | Inhale 2 puffs into | | 0 | | | Activ | | mcg/puff inhaler | the lungs every 6 | | | | | e | | | hours as needed for | | | | | | | | Wheezing. | | | | | | + + + +---------+------+------+-------+ | atorvaSTATin | Take 20 mg by mouth | | 0 | | | Activ | | (LIPITOR) 20 mg | nightly. | | | | | e | | tablet | | | | | | | + + + +---------+------+------+-------+ | cholecalciferol | Take 5,000 Int'l | | 0 | | | Activ | | (CHOLECALCIFEROL) | Units by mouth | | | | | e | | 5000 units TABS | daily. | | | | | | + + + +---------+------+------+-------+ | clopidogrel | Take 75 mg by mouth | | 0 | | | Activ | | (PLAVIX) 75 mg | daily. | | | | | e | | tablet | | | | | | | + + + +---------+------+------+-------+ | furosemide (LASIX) | Take 2 tablets by | | 0 | 03/1 | | Activ | | 20 mg tablet | mouth daily. | | | 1/20 | | e | | | | | | 19 | | | + + + +---------+------+------+-------+ | loratadine | Take 10 mg by mouth | | 0 | | | Activ | | (CLARITIN) 10 mg | daily. | | | | | e | | tablet | | | | | | | + + + +---------+------+------+-------+ | MAGNESIUM PO | Take 250 mg by mouth | | 0 | | | Activ | | | daily. | | | | | e | + + + +---------+------+------+-------+ | metFORMIN | Take 1 tablet by | | 0 | 03/0 | | Activ | | (GLUCOPHAGE-XR) 500 | mouth daily. | | | 7/20 | | e | | mg 24 hr tablet | | | | 19 | | | + + + +---------+------+------+-------+ | metoprolol | Take 1 tablet by | | 0 | 01/0 | 02/2 | Activ | | succinate | mouth daily for 30 | | | /20 | 1/20 | e | | (TOPROL-XL) 25 mg 24 | days. | | | 19 | 20 | | | hr tablet | | | | | | | + + + +---------+------+------+-------+ | levothyroxine | Take 88 mcg by mouth | | 0 | | | Activ | | (SYNTHROID) 88 mcg | every morning | | | | | e | | tablet | before breakfast. Pt | | | | | | | | taking 88 mcg daily | | | | | | + + + +---------+------+------+-------+ Active Problems + + + | Problem | Noted Date | + + + | DM II (diabetes mellitus, type II), controlled | 08/18/2018 | + + + | History of ventricular tachycardia | 08/17/2018 | + + + | HTN (hypertension) | 08/17/2018 | + + + | Syncope and collapse | 08/17/2018 | + + + | Morbid obesity | 07/10/2017 | + + + + + | Overview: Weight loss was strongly encouraged. He needs to | | get involved in an exercise program. 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 Chiang in January | | 2009.Generator change by Dr. Delarosa in 2014 viva xt BELL TIER D MDT | | number [id number].Patient has a 5076 atrial lead Medtronic. 6947 [...] | + + + + + | Allergic rhinitis | 03/24/2016 | + + + | Nocturnal hypoxemia | 03/24/2016 | + + + | Emphysema of lung | 10/24/2015 | + + + | Elevated left diaphragm | 10/24/2015 | + + + | Dyspnea on exertion | 10/24/2015 | + + + | History of abdominal aortic aneurysm repair | 09/24/2014 | + + + | S/P AAA repair | 09/24/2014 | + + + + + | Overview: History of repair September 24, 2014 | + + + +---+ | MOISÉS (obstructive sleep apnea) | | + +---+ + + | Overview: not formally diagnosedHe is obese and has sleep | | apnea. Did not tolerate a CPAP mask. I recommended getting back | | with a sleep doctor and trying nasal pillows. He is currently | | using nasal cannula oxygen but "Medicare won't pay for that | | anymore". I told him he should consider buying his own | | concentrator. Definitely needs to lose weight.01/28/2019He is | | going to trial alternate mask therapy. | + + + +---+ | Non-ischemic cardiomyopathy | | + +---+ + + | Overview: EF 35-40%, class 2-3 symptoms, s/p AICD | + + + +---+ | Hypothyroidism | | + +---+ | Inguinal hernia | | + +---+ + + | Overview: now recurrent | + + Encounters +--------+ + + + + | Date | Type | Specialty | Care Team | Description | +--------+ + + + + | 04/10/ | Orders Only | | Leanne Penaloza V, | | | 2018 | | | MD | | +--------+ + + + + | 03/12/ | Orders Only | | Provider, | Type 2 diabetes | | 2019 | | | Historical, MD | mellitus without | | | | | | complications (HCC); | | | | | | Encounter for | | | | | | therapeutic drug | | | | | | level monitoring | +--------+ + + + + from Last 3 Months Immunizations + + + + | Name | Dates Previously Given | Next Due | + + + + | PNEUMOCOCCAL | 06/13/2006 | | | POLYSACCHARIDE | | | | 23-VALENT (PPSV23) | | | + + + + Family History + + +------+ + | Medical History | Relation | Name | Comments | + + +------+ + | Cancer | Brother | | Leukemia | + + +------+ + | Other (see comment) | Brother | | Leukemia | + + +------+ + | Gout | Father | | | + + +------+ + | Tobacco Use | Father | | | + + +------+ + | Heart defect | Mother | | | + + +------+ + | Heart disease | Mother | | | + + +------+ + | Ulcer disease | Mother | | | + + +------+ + | Other (see comment) | Sister | | CVA | + + +------+ + | Other (see comment) | Sister | | Bowel Disease | + + +------+ + | Colon cancer | Sister | | | + + +------+ + | Stroke | Sister | | | + + +------+ + + +------+ + + | Relation | Name | Status | Comments | + +------+ + + | Brother | | | | + +------+ + + | Brother | | | leukemia | + +------+ + + | Brother [...] + + | Sister | | | stroke | + +------+ + + Social History [...] | Tobacco Cessation: Counseling Given: No | | Comments: has second hand smoke exposure | + + + + +---------+ + | Alcohol Use | Drinks/We | oz/Week | Comments | | | ek | | | + + +---------+ + | No | 0 | 0.0 | Alcoholic Drinks/day: very rare | | | Standard | | | | | drinks or | | | | | | | | | | equivalen | | | | | t | | | + + +---------+ + [...] recent travel history available. | + + Last Filed Vital Signs + + + + | Vital Sign | Reading | Time Taken | + + + + | Blood Pressure | 142/70 | 01/28/2019 1502 PDT | + + + + | Pulse | 89 | 01/28/2019 1502 PDT | + + + + | Temperature | 36.5 C (97.7 F) | 08/19/2018 1126 PST | + + + + | Respiratory Rate | 18 | 10/28/2018 1234 PDT | + + + + | Oxygen Saturation | 94% | 12/14/2015 1512 PDT | + + + + | Inhaled Oxygen | - | - | | Concentration | | | + + + + | Weight | 108 kg (238 lb) | 01/28/20191501 PDT | + + + + | Height | 177.8 cm (5' 10") | 01/28/20191501 PDT | + + + + | Body Mass Index | 34.15 | 01/28/20191501 PDT | + + + + Plan of Treatment +--------+ + + + + | Date | Type | Specialty | Care Team | Description | +--------+ + + + + | 06/04/ | Office | Cardiology | Nav Foley, | | | 2018 | Visit | | MD [address] | | | | | | [place] [address] | | | | | | [phone] | | | | | | | | +--------+ + + + + | 07/30/ | Office | Cardiology | Mary Tipton, ANP | | | 2018 | Visit | | [address] | | | | | | [place] | | | | | | [address] | | | | | | | | +--------+ + + + + | 07/30/ | Procedure | Cardiology | | | | 2018 | visit | | | | +--------+ + + + + + + + + + | Health Maintenance | Due Date | Last Done | Comments | + + + + + | Hepatitis C | | | | | Screening | 7 | | | + + + + + | Diabetic Eye Exam | | | | | | 5 | | | + + + + + | Diabetic Foot Exam | | | | | | 5 | | | + + + + + | Vaccine: | | | | | Dtap/Tdap/Td (1 - | 6 | | | | Tdap) | | | | + + + + + | Colorectal Cancer | | | | | Screening | 7 | | | | (Colonoscopy) | | | | + + + + + | Vaccine: Zoster (1 | | | | | of 2) | 7 | | | + + + + + | Vaccine: | | 06/13/2006 | | | Pneumococcal 65+ | 2 | | | | Low/Medium Risk (1 | | | | | of 2 - PCV13) | | | | + + + + + | Hemoglobin A1c | | 08/18/2018 | | | Screening | 9 | | | + + + + + | Adult Annual | | | | | Wellness Visit | 9 | | | + + + + + | Microalbumin | | | | | Screening | 9 | | | + + + + + | Vaccine: Influenza | | | | | (#1) | 9 | | | + + + + + Results Not on filefrom Last 3 Months Insurance + +--------+ +--------+ +---------+--------+ | Payer | Benefi | Subscriber | Effect | Phone | Address | Type | | | t Plan | ID | mark | | | | | | / | | Dates | | | | | | Group | | | | | | + +--------+ +--------+ +---------+--------+ | MEDICARE | MEDICA | [id number] | 10/19/19 | [phone] | | Medica | | | RE | | 13-Pre | 5 | | re | | | PART A | | sent | | | | | | AND B | | | | | | + +--------+ +--------+ +---------+--------+ | [employer] | TRANSA | [id number] | 10/19/19 | | | Indemn | | INSURANCE | MERICA | | 15-Pre | | | ity | | | LIFE | | sent | | | | | | [place] | | | | | | + +--------+ +--------+ +---------+--------+ + +--------+ +--------+ + + | Guarantor Name | Accoun | Relation to | Date | Phone | Billing Address | | | t Type | Patient | of | | | | | | | | | | + +--------+ +--------+ + + | Jared Abraham | Person | Self | [birth year] | [address] | | [place] | brinda/Serjio | | 1945 | [phone] | [place] | | | chas | | | [address] (Home) | [address] | + +--------+ +--------+ + + Advance Directives Patient has advance care planning documents on file. For more information, please contact:[facility] [place] [address]
--- OUTSIDE RECORDS SUMMARY | ~2019-05-26 | XMS | Encounter Summary ---
Demographics + + + | Address | [address] | | | [place] [address] | + + + | Home Phone | | + + + | Preferred Language | Unknown | + + + | Marital Status | | + + + | Mosque Affiliation | Unknown | + + + | Race | Unknown | + + + | Ethnic Group | Unknown | + + + Author + + + | Author | [facility] | | | and [place] | + + + | Organization | [facility] | | | [...] Team Providers + +------+ + | Care Water Tender Name | Role | Phone | + +------+ + | Carla Murphy | PCP | | | PA-C | | | + +------+ + Encounter Details +--------+ + + + + | Date | Type | Department | Care Team | Description | +--------+ + + + + | 03/12/ | Orders Only | [facility] | Provider, | Type 2 diabetes | | 2019 | | SYSTEM GENERIC OP | MD [address] | mellitus without | | | | CONVERSION [address] | [address] | complications (HCC); | | | | [address] [place], [place] | [place] [address] | Encounter for | | | | [address] | | therapeutic drug | | | | [phone] | | level monitoring | +--------+ + + + + Social [...] + + + + | 10/16/ | Office | Cardiology | Nav Foley Anabela, | | | 2018 | Visit | | MD [address] | | | | | | [place] [address] | | | | | | [phone] | | | | | | | | +--------+ + + + + | 07/30/ | Office | Cardiology | Mary Tipton ANP | | | 2018 | Visit | | [address] | | | | | | [place] | | | | | | [address] | | | | | | | | +--------+ + + + + | 07/30/ | Procedure | Cardiology | | | | 2018 | visit | | | | +--------+ + + + + + +--------+ + + | Name | Priori | Associated Diagnoses | Order Schedule | | | ty | | | + +--------+ + + | Basic Metabolic Panel | Routin | Type 2 diabetes | Expected: | | | e | mellitus without | 11/11/2018, Expires: | | | | complications (HCC) | 10/29/2019 | | | | Encounter for | | | | | therapeutic drug | | | | | level monitoring | | + +--------+ + + documented as of this encounter Visit Diagnoses + + | Diagnosis | + + | Type 2 diabetes mellitus without complications (HCC) Type II or unspecified type | | diabetes mellitus without mention of complication, not stated as uncontrolled | + + | Encounter for therapeutic drug level monitoring Encounter for therapeutic drug | | monitoring | + + documented in this encounter"
--- OUTSIDE RECORDS SUMMARY | ~2019-05-26 | XMS | Clinical Summary ---
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 Chiang in January | | 2009.Generator change by Dr. Delarosa in 2014 viva xt RAILROAD FIRER/FIREMAN D MDT | | number [id number].Patient has a 5076 atrial lead Medtronic. 6947 [...] | | | | | [place] [address] | | | | | | [phone] | | | | | | | | +--------+ + + + + | 07/30/ | Office | Cardiology | Mary Tipton, ANP | | | 2018 | Visit | | [address] | | | | | | [place] | | | | | | [address] | | | | | | | [...] +--------+ +---------+--------+ | MEDICARE | MED[employer] | [id number] | 10/19/19 | [phone] | | Medica | | | RE | | 13-Pre | 5 | | re | | | PART A | | sent | | | | | | AND B | | | | | | + +--------+ +--------+ +---------+--------+ | [employer] | TRANSA | [id number] | 10/19/19 | | | Indemn | [...] chas | | | 6 (Home) | [phone] | + +--------+ +--------+ + + Advance Directives Patient has advance care planning documents on file. For more information, please contact:[facility] [address]
--- OUTSIDE RECORDS SUMMARY | ~2019-05-26 | XMS | Encounter Summary ---
Demographics + + + | Address | [address] | | | [place] [address] | + + + | Home Phone | | + + + | Preferred Language | Unknown | + + + | Marital Status | | + + + | Pentecostalism Affiliation | Unknown | + + + [...] Team Providers + +------+ + | Care Electrical Equipment Assembler Name | Role | Phone | + +------+ + | Carla Murphy | PCP | | | PA-C | | | + +------+ + Encounter Details +--------+ + + + + | Date | Type | Department | Care Team | Description | +--------+ + + + + | 04/10/ | Orders Only | [facility] | Leanne Penaloza V, | | | 2018 | | CONVERSION [address] | MD [address] | | | | | [address] | [address] [place] | | | | | [facility] | [address] | | | | | [address] | | | | | | [phone] | | | +--------+ + + + [...] | | | | | [place] [address] | | | | | | [phone] | | | | | | | | +--------+ + + + + | 07/30/ | Office | Cardiology | Mary Tipton ANP | | | 2019 | Visit | | [address] | | | | | | [place] | | | | | | [address] | | | | | | | [...] + | ECHO INTERPRETATION | Routin | 04/16/2018 | | Results for this | | OF OUTSIDE FILMS | e | 19:10 PDT | | procedure are in the | | | | | | results section. | + +--------+ + + + documented in this encounter Results ECHO Interpretation of Outside Films (04/16/2018 19:10 PDT) + + | Specimen | + + | | + + + + + | Impressions | Performed At | + + + | 1. Overall left ventricular systolic function is moderately impaired | | | with, an EF between 35 - 40%. 2. The diastolic filling pattern | | | indicates impaired relaxation consistent with mild dysfunction (Grade | | | I). 3. The RV was not well visualized, but on limited views, it | | | appears to be normal in size, with normal systolic function. 4. There | | | is moderate bi-atrial enlargement. 5. There are no significant | | | valvular abnormalities noted. 6. There is no evidence for an | | | underlying cardiac cause of his neurologic event noted. 7. In | | | comparison to the previous echocardiographic study, done 09/25/17, | | | there are minor changes noted, as detailed below. | | + + + + + + | Narrative | Performed At | + + + | Patient Name: FRANCI VELÁZQUEZ Date of : 1945 | | | Performing Physician: LIZBET LYNN, | | | | | | INDICATIONS tia CONCLUSIONS 1. Overall | | | left ventricular systolic function is moderately impaired with, an EF | | | between 35 - 40%. 2. The diastolic filling pattern indicates | | | impaired relaxation consistent with mild dysfunction (Grade I). 3. | | | The RV was not well visualized, but on limited views, it appears to be | | | normal in size, with normal systolic function. 4. There is moderate | | | bi-atrial enlargement. 5. There are no significant valvular | | | abnormalities noted. 6. There is no evidence for an underlying cardiac | | | cause of his neurologic event noted. 7. In comparison to the previous | | | echocardiographic study, done 09/25/17, there are minor changes | | | noted, as detailed below. FINDINGS -------- ECG rhythm: Sinus | | | rhythm. ECG rhythm: Ventricularly paced rhythm. Study: A | | | 2-dimensional transthoracic echocardiogram with m-mode, spectral and | | | color flow Doppler was perfomed. Study: This was a technically | | | adequate study. Left Ventricle: Overall left ventricular systolic | | | function is moderately impaired with, an EF between 35 - 40%, not | | | significantly changed from an EF of 30 - 35% on the prior study. Left | | | Ventricle: The left ventricle cavity size is normal, decreased in | | | size (it was mildly enlarged, measured at 6.3 cm at end-diastole) | | | compared to the previous exam. Left Ventricle: Left ventricular wall | | | thickness is normal. Left Ventricle: There is moderate global | | | hypokinesis of LV contractility. Left Ventricle: The diastolic | | | filling pattern indicates impaired relaxation consistent with mild | | | dysfunction (Grade I). Right Ventricle: The RV was not well | | | visualized, but on limited views, it appears to be normal in size, | | | with normal systolic function. Right Ventricle: Pacer/ICD wire seen. | | | Left Atrium: The left atrium is moderately dilated. This is | | | slightly increased in size (4.5 cm, LA volume index 37.88) compared to | | | the previous exam. Right Atrium: The right atrium is moderately | | | enlarged, increased from mild RA enlargement (although no measurements | | | were reported on the prior study). Right Atrium: Pacemaker wire seen | | | in the right atrial cavity. Aortic Valve: The aortic valve is not | | | fully visualized, but on limited views appears to most likely be | | | trileaflet and structurally normal. Aortic Valve: There is no | | | evidence of aortic regurgitation (there was trace AI on the prior | | | study). Aortic Valve: There is no evidence of aortic stenosis. | | | Mitral Valve: The mitral valve is normal. Mitral Valve: No mitral | | | regurgitation (there was trace MR on the prior study). Mitral Valve: | | | No evidence of MVP. Tricuspid Valve: The tricuspid valve appears | | | structurally normal. Tricuspid Valve: Trace tricuspid regurgitation | | | present. Tricuspid Valve: Pulmonary artery systolic pressure could | | | not be assessed due to the absence of adequate TR jet. Pulmonic | | | Valve: The pulmonic valve was not well visualized. Pulmonic Valve: | | | Mild pulmonic regurgitation is present, slightly increased from trace | | | PI on the prior study. Pericardium: There is no pericardial effusion. | | | IVC/Hepatic Veins: The IVC is normal size (1.5-2.5cm) and collapses | | | >50% with sniff, consistent with central venous pressures of 5-10mmHg. | | | Aorta: The aortic root and ascending aorta are normal. The aortic | | | arch was not well visualized. Mass: No mass visualized Thrombus: No | | | clot visualized Thrombus: No vegetation visualized. Septum: No ASD | | | observed. Septum: No VSD observed. MEASUREMENTS | | | Ao asc: 3.27 cm IVC: 2.44 cm EDV(Teich): 129.10 ml | | | IVSd: 1.16 cm LVIDd: 5.19 cm LVPWd: 1.13 cm LVOT | | | Area: 5.09 cm2 LVOT Diam: 2.54 cm %FS: 1.72 % | | | EF(Teich): 3.94 % ESV(Teich): 124.01 ml LVIDs: 5.10 cm | | | SV(Teich): 5.08 ml LVEF MOD A2C: 36.30 % SV MOD A2C: | | | 106.51 ml LVEF MOD A4C: 36.62 % SV MOD A4C: 92.77 ml EF | | | Biplane: 37.21 % LVEDV MOD BP: 274.16 ml LVESV MOD BP: | | | 172.13 ml LVEDV MOD A2C: 293.38 ml LVLd A2C: 9.16 cm LVEDV | | | MOD A4C: 253.33 ml LVLd A4C: 9.31 cm LVESV MOD A2C: | | | 186.87 ml LVLs A2C: 8.32 cm LVESV MOD A4C: 160.55 ml LVLs | | | A4C: 8.32 cm LAESV(A-L): 101.76 ml LAESV Index (A-L): | | | 45.03 ml/m2 LAAs A2C: 31.66 cm2 LAESV A-L A2C: 147.72 ml | | | LALs A2C: 5.75 cm LAAs A4C: 21.81 cm2 LAESV A-L A4C: | | | 68.38 ml LALs A4C: 5.90 cm RAAs: 25.43 cm2 RAESV A-L: | | | 100.41 ml RAESV MOD: 92.04 ml RALs: 5.46 cm Ao Diam: | | | 3.82 cm LA Diam: 4.65 cm LA/Ao: 1.21 TAPSE: 2.41 cm AV | | | maxP.90 mmHg AV meanP.40 mmHg AV Vmax: 1.21 m/s | | | AV Vmean: 0.87 m/s AV VTI: 23.83 cm GOPAL Vmax: 3.69 cm2 | | | GOPAL (VTI): 3.60 cm2 AVAI Vmax: 0.00 cm2/m2 AVAI (VTI): | | | 0.00 cm2/m2 LVOT maxP.10 mmHg LVOT meanP.59 mmHg | | | LVSI Dopp: 37.97 ml/m2 LVSV Dopp: 85.81 ml LVOT Vmax: | | | 0.88 m/s LVOT Vmean: 0.59 m/s LVOT VTI: 16.83 cm MV A | | | Frank: 0.65 m/s MV DecT: 257.92 ms MV E Frank: 0.47 m/s MV | | | E/A Ratio: 0.73 MV PHT: 74.79 ms MVA By PHT: 2.94 cm2 | | | Septal e': 0.04 m/s Septal E/e': 11.67 Lateral e': 0.04 | | | m/s Lateral E/e': 10.11 PV maxP.92 mmHg PV Vmax: | | | 0.99 m/s Wire Drawer: Authenticated by: LIZBET LYNN MD | | | Report Date/Time: -- [id number]:34 | | + + + + + | Procedure Note | + + | Mike, Rad Conversion - 04/10/2019 1523 PDT Patient Name: Silvia VELÁZQUEZ of | | : 1945 Performing Physician: LIZBET LYNN, | | MD INDICATIONS t | | ia CONCLUSIONS 1. Overall left ventricular systolic function is moderately | | impaired with, an EF between 35 - 40%.2. The diastolic filling pattern indicates | | impaired relaxation consistent with mild dysfunction (Grade I).3. The RV was not well | | visualized, but on limited views, it appears to be normal in size, with normal systolic | | function.4. There is moderate bi-atrial enlargement. 5. There are no significant | | valvular abnormalities noted. 6. There is no evidence for an underlying cardiac cause of | | his neurologic event noted. 7. In comparison to the previous echocardiographic study, | | done 09/25/17, there are minor changes noted, as detailed below. FINDINGS--------ECG | | rhythm: Sinus rhythm.ECG rhythm: Ventricularly paced rhythm.Study: A 2-dimensional | | transthoracic echocardiogram with m-mode, spectral and color flow Doppler was | | perfomed.Study: This was a technically adequate study.Left Ventricle: Overall left | | ventricular systolic function is moderately impaired with, an EF between 35 - 40%, not | | significantly changed from an EF of 30 - 35% on the prior study.Left Ventricle: The left | | ventricle cavity size is normal, decreased in size (it was mildly enlarged, measured at | | 6.3 cm at end-diastole) compared to the previous exam.Left Ventricle: Left ventricular | | wall thickness is normal.Left Ventricle: There is moderate global hypokinesis of LV | | contractility.Left Ventricle: The diastolic filling pattern indicates impaired | | relaxation consistent with mild dysfunction (Grade I).Right Ventricle: The RV was not | | well visualized, but on limited views, it appears to be normal in size, with normal | | systolic function.Right Ventricle: Pacer/ICD wire seen.Left Atrium: The left atrium is | | moderately dilated. This is slightly increased in size (4.5 cm, LA volume index 37.88) | | compared to the previous exam.Right Atrium: The right atrium is moderately enlarged, | | increased from mild RA enlargement (although no measurements were reported on the prior | | study).Right Atrium: Pacemaker wire seen in the right atrial cavity.Aortic Valve: The | | aortic valve is not fully visualized, but on limited views appears to most likely be | | trileaflet and structurally normal.Aortic Valve: There is no evidence of aortic | | regurgitation (there was trace AI on the prior study).Aortic Valve: There is no evidence | | of aortic stenosis.Mitral Valve: The mitral valve is normal.Mitral Valve: No mitral | | regurgitation (there was trace MR on the prior study).Mitral Valve: No evidence of | | MVP.Tricuspid Valve: The tricuspid valve appears structurally normal.Tricuspid Valve: | | Trace tricuspid regurgitation present.Tricuspid Valve: Pulmonary artery systolic | | pressure could not be assessed due to the absence of adequate TR jet.Pulmonic Valve: The | | pulmonic valve was not well visualized.Pulmonic Valve: Mild pulmonic regurgitation is | | present, slightly increased from trace PI on the prior study.Pericardium: There is no | | pericardial effusion.IVC/Hepatic Veins: The IVC is normal size (1.5-2.5cm) and collapses | | >50% with sniff, consistent with central venous pressures of 5-10mmHg.Aorta: The aortic | | root and ascending aorta are normal. The aortic arch was not well visualized.Mass: No | | mass visualizedThrombus: No clot visualizedThrombus: No vegetation visualized.Septum: No | | ASD observed.Septum: No VSD observed. MEASUREMENTS Ao asc: 3.27 cmIVC: | | 2.44 cmEDV(Teich): 129.10 mlIVSd: 1.16 cmLVIDd: 5.19 cmLVPWd: 1.13 cmLVOT Area: | | 5.09 [id number] Diam: 2.54 cm%FS: 1.72 %EF(Teich): 3.94 %ESV(Teich): 124.01 | | mlLVIDs: 5.10 cmSV(Teich): 5.08 mlLVEF MOD A2C: 36.30 %SV MOD A2C: 106.51 mlLVEF | | MOD A4C: 36.62 %SV MOD A4C: 92.77 mlEF Biplane: 37.21 %LVEDV MOD BP: 274.16 | | mlLVESV MOD BP: 172.13 mlLVEDV MOD A2C: 293.38 mlLVLd A2C: 9.16 cmLVEDV MOD A4C: | | 253.33 mlLVLd A4C: 9.31 cmLVESV MOD A2C: 186.87 mlLVLs A2C: 8.32 cmLVESV MOD A4C: | | 160.55 mlLVLs A4C: 8.32 cmLAESV(A-L): 101.76 mlLAESV Index (A-L): 45.03 | | ml/m2LAAs A2C: 31.66 [id number] A-L A2C: 147.72 mlLALs A2C: 5.75 cmLAAs A4C: 21.81 | | [id number] A-L A4C: 68.38 mlLALs A4C: 5.90 cmRAAs: 25.43 [id number] A-L: 100.41 | | mlRAESV MOD: 92.04 mlRALs: 5.46 cmAo Diam: 3.82 cmLA Diam: 4.65 cmLA/Ao: | | 1.21TAPSE: 2.41 cmAV maxP.90 mmHgAV meanP.40 mmHgAV Vmax: 1.21 m/Fabricio | | Vmean: 0.87 m/Fabricio VTI: 23.83 cmAVA Vmax: 3.69 cm2AVA (VTI): 3.60 [id number] Vmax: | | 0.00 cm2/m2AVAI (VTI): 0.00 cm2/m2LVOT maxP.10 mmHgLVOT meanP.59 mmHgLVSI | | Dopp: 37.97 ml/m2LVSV Dopp: 85.81 mlLVOT Vmax: 0.88 m/sLVOT Vmean: 0.59 m/sLVOT | | VTI: 16.83 cmMV A Frank: 0.65 m/sMV DecT: 257.92 msMV E Frank: 0.47 m/sMV E/A | | Ratio: 0.73MV PHT: 74.79 msMVA By PHT: 2.94 th9Ucfpln e': 0.04 m/sSeptal E/e': | | 11.67Lateral e': 0.04 m/sLateral E/e': 10.11PV maxP.92 mmHgPV Vmax: 0.99 | | m/s Wire Drawer:Authenticated by: Devan LEE Date/Time: -- | | [id number]:34 IMPRESSION: 1. Overall left ventricular systolic function is | | moderately impaired with, an EF between 35 - 40%.2. The diastolic filling pattern | | indicates impaired relaxation consistent with mild dysfunction (Grade I).3. The RV was | | not well visualized, but on limited views, it appears to be normal in size, with normal | | systolic function.4. There is moderate bi-atrial enlargement. 5. There are no | | significant valvular abnormalities noted. 6. There is no evidence for an underlying | | cardiac cause of his neurologic event noted. 7. In comparison to the previous | | echocardiographic study, done 09/25/17, there are minor changes noted, as detailed below. | |ESV(Teich): 124.01 ml | |LVIDs: 5.10 cm | |SV(Teich): 5.08 ml | |LVEF MOD A2C: 36.30 % | |SV MOD A2C: 106.51 ml | |LVEF MOD A4C: 36.62 % | |SV MOD A4C: 92.77 ml | |EF Biplane: 37.21 % | |LVEDV MOD BP: 274.16 ml | |LVESV MOD BP: 172.13 ml | |LVEDV MOD A2C: 293.38 ml | |LVLd A2C: 9.16 cm | |LVEDV MOD A4C: 253.33 ml | |LVLd A4C: 9.31 cm | |LVESV MOD A2C: 186.87 ml | |LVLs A2C: 8.32 cm | |LVESV MOD A4C: 160.55 ml | |LVLs A4C: 8.32 cm | |LAESV(A-L): 101.76 ml | |LAESV Index (A-L): 45.03 ml/m2 | |LAAs A2C: 31.66 cm2 | |LAESV A-L A2C: 147.72 ml | |LALs A2C: 5.75 cm | |LAAs A4C: 21.81 cm2 | |LAESV A-L A4C: 68.38 ml | |LALs A4C: 5.90 cm | |RAAs: 25.43 cm2 | |RAESV A-L: 100.41 ml | |RAESV MOD: 92.04 ml | |RALs: 5.46 cm | |Ao Diam: 3.82 cm | |LA Diam: 4.65 cm | |LA/Ao: 1.21 | |TAPSE: 2.41 cm | |AV maxP.90 mmHg | |AV meanP.40 mmHg | |AV Vmax: 1.21 m/s | |AV Vmean: 0.87 m/s | |AV VTI: 23.83 cm | |GOPAL Vmax: 3.69 cm2 | |GOPAL (VTI): 3.60 cm2 | |AVAI Vmax: 0.00 cm2/m2 | |AVAI (VTI): 0.00 cm2/m2 | |LVOT maxP.10 mmHg | |LVOT meanP.59 mmHg | |LVSI Dopp: 37.97 ml/m2 | |LVSV Dopp: 85.81 ml | |LVOT Vmax: 0.88 m/s | |LVOT Vmean: 0.59 m/s | |LVOT VTI: 16.83 cm | |MV A Frank: 0.65 m/s | |MV DecT: 257.92 ms | |MV E Frank: 0.47 m/s | |MV E/A Ratio: 0.73 | |MV PHT: 74.79 ms | |MVA By PHT: 2.94 cm2 | |Septal e': 0.04 m/s | |Septal E/e': 11.67 | |Lateral e': 0.04 m/s | |Lateral E/e': 10.11 | |PV maxP.92 mmHg | |PV Vmax: 0.99 m/s | | | |Wire Drawer: | |Authenticated by: LIZBET LYNN MD | |Report Date/Time: -- [id number]:9:34 | | | |IMPRESSION: | |1. Overall left ventricular systolic function is moderately impaired with, an EF between 35 - 40%. | |2. The diastolic filling pattern indicates impaired relaxation consistent with mild dysfunc tion (Grade I). | |3. The RV was not well visualized, but on limited views, it appears to be normal in size, w ith normal systolic function. | |4. There is moderate bi-atrial enlargement. 5. There are no significant valvular abnormalit ies noted. 6. There is no evidence for an underlying cardiac cause of his neurologic event n oted. 7. In comparison to the previous echocardiographic study, done | |09/25/17, there are minor changes noted, as detailed below. | + + documented in this encounter Visit Diagnoses Not on filedocumented in this encounter"
--- OUTSIDE RECORDS SUMMARY | ~2019-05-26 | XMS | Encounter Summary ---
Demographics + + + | Address | [address] | | | [place] [address] | + + + | Home Phone [...] Team Providers + +------+ + | Care Nuclear Medicine Technologist Name | Role | Phone | + +------+ + | Carla Murphy | PCP | | | PA-C | | | + +------+ + Encounter Details +--------+ + + + + | Date | Type | Department | Care Team | Description | +--------+ + + + + | 03/12/ | Orders Only | [facility] | Provider, | Type 2 diabetes | | 2019 | | [facility] OP | MD [address] | mellitus without | | | | CONVERSION [address] | [address] | complications (HCC); | | | | [address] [place], [place] | [place] [address] | Encounter for | | | | [address] | | therapeutic drug | | | | [phone] | | level monitoring | +--------+ + [...] | | | | | [place] [address] | | | | | | [phone] | | | | | | | | +--------+ + + + + | 07/30/ | Office | Cardiology | Mary Tipton ANP | | | 2018 | Visit | | [address] | | | | | | [place] | | | | | | [address] | | | | | | | [...]
--- OUTSIDE RECORDS SUMMARY | ~2019-05-26 | XMS | Encounter Summary ---
Demographics + + + | Address | [address] | | | [place] [address] | + + + | Home Phone [...] Team Providers + +------+ + | Care Section Leader Screen Printing Name | Role | Phone | [...] [place] | | | | | [facility] [place] | [address] | | | | | [address] | | | | | | [phone] | | | +--------+ + + + [...] | | | | | [place] [address] | | | | | | [phone] | | | | | | | | +--------+ + + + + | 07/30/ | Office | Cardiology | Mary Tipton ANP | | | 2019 | Visit | | [address] | | | | | | [place] | | | | | | [address] | | | | | | | [...] PV Vmax: | | | 0.99 m/s Do All Operator: Authenticated by: LIZBET LYNN MD | | | Report Date/Time: -- [id number]:9:34 | | + + + + + [...] cmLVPWd: 1.13 cmLVOT Area: | | 5.09 [id number] Diam: 2.54 cm%FS: 1.72 %EF(Teich): 3.94 %ESV(Teich): [...] (A-L): 45.03 | | ml/m2LAAs A2C: 31.66 gj7DMPIA A-L A2C: 147.72 mlLALs A2C: 5.75 cmLAAs A4C: 21.81 | | [id number] A-L A4C: 68.38 mlLALs A4C: 5.90 cmRAAs: 25.43 ah8MAMYR A-L: 100.41 | | mlRAESV MOD: 92.04 mlRALs: 5.46 cmAo Diam: 3.82 cmLA Diam: 4.65 cmLA/Ao: | | 1.21TAPSE: 2.41 cmAV maxP.90 mmHgAV meanP.40 mmHgAV Vmax: 1.21 m/Fabricio | | Vmean: 0.87 m/Fabricio VTI: 23.83 cmAVA Vmax: 3.69 cm2AVA (VTI): 3.60 pd5SXYC Vmax: | | 0.00 cm2/m2AVAI (VTI): 0.00 cm2/m2LVOT maxP.10 mmHgLVOT meanP.59 mmHgLVSI | | Dopp: 37.97 ml/m2LVSV Dopp: 85.81 mlLVOT Vmax: 0.88 m/sLVOT Vmean: 0.59 m/sLVOT | | VTI: 16.83 cmMV A Frank: 0.65 m/sMV DecT: 257.92 msMV E Frank: 0.47 m/sMV E/A | | Ratio: 0.73MV PHT: 74.79 msMVA By PHT: 2.94 sk2Mbizrp e': 0.04 m/sSeptal E/e': | | 11.67Lateral e': 0.04 m/sLateral E/e': 10.11PV maxP.92 mmHgPV Vmax: 0.99 | | m/s Do All Operator:Authenticated by: Devan LEE Date/Time: -- | | [id number]:9:34 IMPRESSION: 1. Overall left ventricular systolic function [...] |PV Vmax: 0.99 m/s | | | |Do All Operator: | |Authenticated by: LIZBET LYNN MD | |Report Date/Time: -- [id number]:9:34 | | | |IMPRESSION: | |1. Overall [...]
--- OUTSIDE RECORDS SUMMARY | ~2019-05-26 | XMS | Clinical Summary ---
Demographics + + + | Address | [address] | | | [place] [address] | + + + | Home Phone | | + + + | Preferred Language | Unknown | + + + | Marital Status | | + + + | Christian Affiliation | Unknown | + + + | Race | Unknown | + + + | Ethnic Group | Unknown | + + + Author + + + | Author | [facility] (Historical as of | | | 04-05-19) | + + + | Organization | [facility] (Historical as of | | | 04-05-19) [...] Team Providers + +------+ + | Care Package Collector Name | Role | Phone | [...] DM II (diabetes mellitus, type II), controlled ([facility]) | 08/18/2018 | + + [...] 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 Chiang in January | | 2009.Generator change by Dr. Delarosa in 2014 viva xt STUDENT CAREER DEVELOPMENT SPECIALIST D MDT | | number [id number].Patient has a 5076 atrial lead [employer]. 6947 [...] QRS duration of over 160 ms. A STUDENT CAREER DEVELOPMENT SPECIALIST defibrillator | | was subsequently placed [...] | | | | | [place] [address] | | | | | | [phone] | | | | | | | | +--------+ + + + + | 07/30/ | Office | | Mary Tipton NP | | | 2019 | Visit | | [address] | | | | | | [place], [place] | | | | | | [address] | | | | | | | [...] / Lot | + +--------+------+ +--------+--------+--------+ | Cupboard Builder-D-05/17/2015Implanted: | Cardia | | [employer] - | [...] +------+-------+ + | MEDICARE | MEDICA | [id number] | | | [address] | | | RE | | | | [place] [phone] | | | IP-OP | | | | | + +--------+ +------+-------+ + | COMMERCIAL OTHER | TRANSA | [id number] | | | | | | MERICA [...] MICHAEL | brinda/Serjio | | 1945 | [phone] | [place] | | | chas | | | 1964 | [phone] | + +--------+ +--------+ + +
--- OUTSIDE RECORDS SUMMARY | 2019-05-26 14:16 | XMS ---
PreManage Notification: FRANCI VELÁZQUEZ Security Trader Events No recent Security Events currently on file CRITERIA MET - Group Notification CARE PROVIDERS SEN COLINDRES Physician 04/16/2018-Current PHONE: [phone] [place] has no Care Guidelines for this patient. E.[place] [facility] (12 MO.) [facility] TOTAL 4 NOTE: Visits indicate total known visits. ED/C VISIT TRACKING (12 MO.) 05/26/2019 14:13 RANJAN Miranda TYPE: Emergency COMPLAINT: - DIABETIC PROBLEM 01/20/2019 04:00 RANJAN Miranda TYPE: Emergency COMPLAINT: - BLEEDING OUT OF RIGHT DIAGNOSES: - retirement (current) use of oral hypoglycemic drugs - Unspecified perforation of tympanic membrane, right ear - Presence of cardiac pacemaker - Other long-term (current) drug therapy - retirement (current) use of aspirin - Essential (primary) hypertension - Allergy status to other drugs, medicaments and biological substances status - Allergy status to analgesic agent status - Allergy status to narcotic agent status - Allergy status to penicillin - Acquired absence of other specified parts of digestive tract - Otitis media, unspecified, right ear [facility]17/2018 22:[facility] DIAGNOSES: - Irregular Heart Beat 08/17/2018 17:04 RANJAN Miranda TYPE: Emergency COMPLAINT: - CHEST PAINS DIAGNOSES: - Allergy status to narcotic agent status - Allergy status to penicillin - Presence of cardiac pacemaker - Other watermaster (current) drug therapy - Syncope and collapse - Allergy status to other drugs, medicaments and biological substances status - Chest pain, unspecified INPATIENT VISIT TRACKING (12 MO.) 08/17/2018 22:29 [facility] Don BATES TYPE: General Medicine DIAGNOSES: - Irregular Heart Beat - Syncope and collapse - Ventricular tachycardia [email or web address]
--- NOTE | 2019-05-26 16:50 | EKG ---
[facility] [address] [facility] [place] [address] Signed Atrial-sensed ventricular-paced rhythm with premature supraventricular complexes and with occasional premature ventricular complexes Abnormal ECG When compared with ECG of 17-AUG-2018 17:08, premature ventricular complexes are now present premature supraventricular complexes are now present Vent. rate has decreased BY 3 BPM Confirmed by ARIANA NOVA DO ([id number]) on 05/26/2019 4:50:24 PM Electronically Signed By: ARIANA NOVA DO 05/26/19 1650 PATIENT NAME: FRANCI VELÁZQUEZ Electrocardiogram DATE OF : 49 PHYSICIAN: ARIANA NOVA DO REPORT #: [id number] REPORT IS CONFIDENTIAL AND NOT TO BE RELEASED WITHOUT AUTHORIZATION
== END 2019-05-26 19:10 | disposition home or self-care (01) ==
LOC: ED 14:12
DX: I95.9 Hypotension, unspecified (principal); I10 Essential (primary) hypertension; Z95.0 Presence of cardiac pacemaker; Z88.5 Allergy status to narcotic agent; Z88.6 Allergy status to analgesic agent; Z88.0 Allergy status to penicillin; Z79.82 Long term (current) use of aspirin; Z79.899 Other long term (current) drug therapy
CPT/HCPCS: 71045; 71260; 80053; 83605; 83735; 84484; 85025; 85379; 93005; 93010; 96361; 99285-25; J2405; J7030; Q9967

== ENCOUNTER 2019-07-23 15:43 | Inpatient (IN) | payer MEDICARE, OTHER ==
[~2019-07-23] VITALS: Ht 177.8 cm; Wt 107.4 kg
--- OUTSIDE RECORDS SUMMARY | ~2019-07-23 | XMS | Encounter Summary ---
Demographics + + + | Address | [address] | | | [place] [address] | + + + | Home Phone | | + + + | Preferred Language | Unknown | + + + | Marital Status | | + + + | Faith Affiliation | Unknown | + + + | Race | Unknown | + + + | Ethnic Group | Unknown | + + + Author + + + | Author | [facility] | | | and [place] | + + + | Organization | [facility] | | | and [place] | + + + | Address | Unknown | + + + | Phone | Unavailable | + + + Support + + +---------+ + | Name | Relationship | Address | Phone | + + +---------+ + | Champ Abraham | ECON | Unknown | | + + +---------+ + Care Team Providers + +------+ + | Care Register Of Wills Name | Role | Phone | + +------+ + PCP | Unavailable | + +------+ + Encounter Details +--------+ + + + + | Date | Type | Department | Care Team | Description | +--------+ + + + + | 10/16/ | Hospital | [facility] | Conversion | Pain | | 2015 | Encounter | CONVERSION DEP [address] | Transaction, | | | | | ANGÉLICA WOLFE | Provider Unknown | | | | | [place] | [phone] | | | | | [phone] | | | | | | [phone] | | | +--------+ + + + + Social History + +-------+ +--------+------+ | Tobacco Use | Types | Packs/Day | Years | Date | | | | | Used | | + +-------+ +--------+------+ | Never Assessed | | | | | + +-------+ +--------+------+ + + + | Sex Assigned at | Date Recorded | | | | + + + | Not on file | | + + + + + + + | Job Start Date | Occupation | Industry | + + + + | Not on file | Not on file | Not on file | + + + + + + + + | Travel History | Travel Start | Travel End | + + + + + + | No recent travel history available. | + + documented as of this encounter Plan of Treatment +--------+ + + + + | Date | Type | Specialty | Care Team | Description | +--------+ + + + + | 07/30/ | Office | Cardiology | Mary Tipton ANP | | | 2019 | Visit | | [address] | | | | | | [place] | | | | | | [address] | | | | | | | | +--------+ + + + + | 07/30/ | Procedure | Cardiology | | | | 2018 | visit | | | | +--------+ + + + + | 09/01/ | Office | Cardiology | Poppy Rodriguez | | | 2019 | Visit | | [address] | | | | | | [address] | | | | | | [place] [address] | | | | | | [phone] | | | | | | | | +--------+ + + + + | 10/21/ | Office | Cardiology | Nav Foley, | | | 2019 | Visit | | [address] | | | | | | [place] [address] | | | | | | [phone] | | | | | | | | +--------+ + + + + documented as of this encounter Procedures + +--------+ + + + | Procedure Name | Priori | Date/Time | Associated Diagnosis | Comments | | | ty | | | | + +--------+ + + + | CT ANGIOGRAM ABDOMEN | Routin | 10/06/2014 | | Results for this | | PELVIS W CONTRAST | e | 11:31 PM | | procedure are in the | | | | PST | | results section. | + +--------+ + + + documented in this encounter Results CT Angiogram Abdomen Pelvis w Contrast (10/06/2014 11:31 PM PST) + + | Specimen | + + | | + + + + + | Narrative | Performed At | + + + | This is a non-reportable procedure without a radiologist report and | | | is used for image storage only | | + + + + + | Procedure Note | + + | David Mckeon - 04/03/2019 11:51 PM PDT This is a non-reportable procedure | | without a radiologist report and isused for image storage only | + + documented in this encounter Visit Diagnoses + + | Diagnosis | + + | Pain Generalized pain | + + documented in this encounter"
--- OUTSIDE RECORDS SUMMARY | ~2019-07-23 | XMS | Encounter Summary ---
Demographics + + + | Address | [address] | | | [place] [address] | + + + | Home Phone | | + + + | Preferred Language | Unknown | + + + | Marital Status | | + + + | Muslim Affiliation | Unknown | + + + | Race | Unknown | + + + | Ethnic Group | Unknown | + + + Author + + + | Author | [facility] | | | and [place] | + + + | Organization | [facility] | | | [...] Team Providers + +------+ + | Care Organ Pipe Voicer Name | Role | Phone | + +------+ + | Carla Murphy | PCP | | | PA-C | | | + +------+ + Reason for Referral Diagnostic/Screening (Routine) +--------+--------+ + + + + | Status | Reason | Specialty | Diagnoses / | Referred By | Referred To | | | | | Procedures | Contact | Contact | +--------+--------+ + + + + | Closed | | | Diagnoses | | OP ST | | | | | Elevated | Lyn, | SH[facility] | | | | | diaphragm | Sailaja Chiang, | HOSP[facility] | | | | | Procedures | MD [address] | | | | | [place] [address]iff | [address] | [address] | | | | | Test | [place], | [place], [place] | | | | | | [place] [address] | [address] | | | | | | | Phone: | | | | | | | [phone] | | | | | | | Fax: | | | | | | | [phone] | +--------+--------+ + + + + Reason for Visit +--------+ + | Reason | Comments | +--------+ + | COPD | Consult | +--------+ + Evaluate & Treat (Routine) +--------+--------+ + + + + | Status | Reason | Specialty | Diagnoses / | Referred By | Referred To | | | | | Procedures | Contact | Contact | +--------+--------+ + + + + | Closed | | Pulmonology | Diagnoses | Brown, | Lyn, | | | | | Chronic | Carla | Sailjaa Chiang, | | | | | obstructive | Ondina | [address] | | | | | pulmonary | PA-C [address] | | | | | disease, | [address] | [place], | | | | | unspecified | Ave | [place] [address] | | | | | ([facility]) | [place], | | | | | | Procedures | [place] | | | | | | [place] | [address] | | | | | | CONSULT | Phone: | | | | | | | [phone] | | | | | | | Fax: | | | | | | | [phone] | | +--------+--------+ + + + + Encounter Details +--------+---------+ + + + | Date | Type | Department | Care Team | Description | +--------+---------+ + + + | 10/18/ | [facility] | Lyn, | Dyspnea on exertion; | | 2015 | Visit | PULMONARY [address] | Sailaja Chiang MD | Elevated left | | | | [place], | | diaphragm; | | | | [place] [address] | | Panlobular emphysema | | | | [phone] | | ([facility]); Non-ischemic | | | | | | cardiomyopathy | | | | | | (HCC); MOISÉS | | | | | | (obstructive sleep | | | | | | apnea) | +--------+---------+ + + + Social History [...] | | + +---+---+---+ + + | Tobacco Cessation: Counseling Given: No | + + + + +---------+ + | Alcohol Use | Drinks/Week | oz/Week | Comments | + + +---------+ + | No | 0 Standard drinks | 0.0 | 1 every 5 years or | | | or equivalent | | so | + + +---------+ + + + [...] + + + | Blood Pressure | 104/70 | 10/19/2015 3:24 PM | | | | | PST | | + + + + + | Pulse | 100 | 10/19/2015 3:24 PM | | | | | PST | | + + + + + | Temperature | - | - | | + + + + + | Respiratory Rate | - | - | | + + + + + | Oxygen Saturation | 92% | 10/19/2015 3:24 PM | | | | | PST | | + + + + + | Inhaled Oxygen | - | - | | | Concentration | | | | + + + + + | Weight | 126 kg (277 lb 11.2 | 10/19/2015 3:24 PM | | | | oz) | PST | | + + + + + | Height | 177.8 cm (5' 10") | 10/19/2015 3:24 PM | | | | | PST | | + + + + + | Body Mass Index | 39.85 | 10/19/2015 3:24 PM | | | | | PST | | + + + + + documented in this encounter Patient Instructions Patient Instructions Sailaja Nicholson MD - 10/19/2015 4:57 PM PSTStart on Incruse 1 inhalation daily, every day. If this is not covered by your insurance, let me know and we ca n order something else to replace it. Yes, I do think you should walk, starting with 5 minutes daily, to the point where you can speak a few words at a time. Set up the video x-ray to check the function of your diaphragm to see if it works. Schedule this at [facility]. Do an overnight oxygen test through [employer]. Call the [employer] before yo u pick it up to make sure they have a box available. You will shrimp picker a box at the [employer] [facility] [email or web address]. Do the test on room air. Wear the finger probe through the night and then return the box for a download the next day. I really want you to think about the sleep study given all of your issues, as this may real ly help you. documented in this encounter Progress Notes Sailaja Nicholson MD - 10/19/2015 3:34 PM PSTFormatting of this note might be differe nt from the original. Pulmonary Consult Referring Provider: Carla Juarez* HPI Jared Abraham is a 70 y.o. male patient of Carla Juarez PA-C here today for evaluation of COPD. He notes that he first started having troubles with their breathing 7-8 years ago. He kinsey mbcriss going to [facility] ER years ago for pneumonia, a COPD exacerbation. He was given a ntibiotics, and saw Dr. Diez in follow up and he notes he was not started on any long t erm medications. He was given a rescue inhaler. He did not notice any difference using the r escue inhaler. 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 In the midst here, he has a significant history of cardiac disease, for which he has been f ollowed by Dr. Delarosa and more recently Dr. Foley. He notes that more recently, he went off work for a hip issue, and while off work for this, he was found to have an abdominal aneurysm. He then had to have this addressed more urgentl y, and by the time he had this dealt with, he was past his FMLA period, and so he was termin ated from his job. He is somewhat confused about the time course of some of these events amanda t transpired. It would seem that the AAA repair (stenting) was done in September 2014. Dr. Foley saw him in follow up, at which point he complained about fatigue. Dr. Foley noted strong suspicion for MOISÉS, and the patient declined a sleep study (and again at another follow up). He saw the [facility] TESTER from [facility]ology in March 2015, and was noted to require a generator prescott e for his pacemaker defibrillator. This was performed in April. At his last note, in [facility] low up after his generator change, Dr. Foley mentions that he feels that his shortness of carol ath is related to his COPD. His most recent EF is 35-40% on echo in April. He was then seen in the ER at [facility] a total of 4 times. In April he is seen for pain at the defibrillator sire. In June he is seen for cough, in July he is seen fo r cough and chest pain, and in August for weakness, a fall, and reported low oxygen saturat ions. By his report, he was seen in the ER years ago for pneumonia and a COPD exacerbation, and went in feeling just sick. He then went in more recently after falling down the stairs ( he notes it was dark and he was visiting a friend's house), and was given and inhaler and di agnosed with pneumonia, given oxygen for 2 weeks, and given antibiotics. He notes he did not qualify to keep the oxygen and it was discontinued. He notes he is only dyspneic if he gets up and walks very far. Currently he is able to walk 1 block at his own pace on level ground.The distance walked is predominately limited by his breathing, and feeling exhausted. He also notes he gets a pain in his stomach and lower abd omen, similar to stomach cramps he would get exercising years ago. One year ago, he feels th at he could walk about 2 blocks. He went off work about 1 year ago, and at that time he cou ld walk in from the parking lot, which could be fairly far, sometimes 2-3 blocks. He has a [employer] tair climber at home, but has not used it much lately. He used to go on regular walks, up to a few miles, but when he started having heart problems, he has not been doing this. He does cough at times, but no particular time. He does go to the [place] at times, and when he does, he will cough more. He occasionally does expectorate mucous, and then it is creamy yellow color. He has not had hemoptysis. Triggers for his shortness of breath include exertion only (walking, doing dishes, going up stairs, cleaning his apartment). Treatments that he has tried to this point include albuterol as needed. He has not felt lik e it helped him. He has been evaluated for nocturnal oxygen and was told he quit breathing during the night. He did not want to do a sleep study. He has been told he snores by his friends, and he has woken up gasping. He does toss and turn in his sleep and wakes up frequently to use the bath room. He is willing to think about having a sleep study. Past Medical History Past Medical History Diagnosis Date COPD (chronic obstructive pulmonary disease) ([facility]) Allergic rhinitis seeing Dr. Hedrick 10/2015 MOISÉS (obstructive sleep apnea) not formally diagnosed Anxiety AAA (abdominal aortic aneurysm) ([facility]) 2014 Non-ischemic cardiomyopathy ([facility]) EF 35-40%, class 2-3 symptoms, s/p AICD Lipoma Hypothyroidism Inguinal hernia 1980 now recurrent Appendicitis 1957 Hard of hearing Past Surgical History Past Surgical History Procedure Laterality Date Appendectomy 1957 Inguinal hernia repair Right 1980 Lipoma resection 1994 x2 Inflamed hair folicle 1998 Abdominal aortic aneurysm repair, endovascular 2014 Kadlec, stent x 3 Cardiac defibrillator placement 2009 battery replaced 2014 Family History: Family History Problem Relation Age of Onset Cancer Brother Leukemia Colon cancer Sister Stroke Sister Heart disease Mother valvular Ulcer Disease Mother Gout Father Tobacco Use Father Social History: History Social History Marital Status: Spouse Name: N/A Number of Children: N/A Years of Education: N/A Occupational History Retired [employer] Social History Main Topics Smoking status: Never Smoker Smokeless tobacco: Never Used Alcohol Use: No Comment: 1 every 5 years or so Drug Use: No Sexual Activity: None Other Topics Concern None Social History Narrative Lives: [place] With: Self Grew up: [place] Has previously lived in: [place] Exposure to toxic chemicals: No Exposure to asbestos: No Exposure to tuberculosis: No Has had a PPD or Quantiferon before: Not that he knows of. Has pets at home: Cat Has ever owned birds: Yes an owl back in the s. Other animal exposures: Rabbits, lots of cats and dogs. Hobbies: Going to the [email or web address]. Allergies: Allergies Allergen Reactions Codeine Anaphylaxis Meperidine Anaphylaxis Oxycodone Anaphylaxis Penicillins Hives Medications: Outpatient Encounter Prescriptions as of 10/19/2015 Medication Sig Dispense Refill aspirin 81 mg EC tablet Take 81 mg by mouth Daily. fluticasone (FLONASE) 50 mcg/nasal spray 1 spray by Nasal route Daily. [DISCONTINUED] levothyroxine (SYNTHROID, LEVOTHROID) 50 mcg tablet Take 50 mcg by mouth every morning (before breakfast). levothyroxine (SYNTHROID, LEVOTHROID) 75 MCG tablet Take one tablet daily metoprolol tartrate (LOPRESSOR) 25 mg tablet Take 25 mg by mouth Daily. spironolactone (ALDACTONE) 25 mg tablet Take 12.5 mg by mouth Daily. 1/2 tab daily Facility-Administered Encounter Medications as of 10/19/2015 Medication Dose Route Frequency Provider Last Rate Last Dose [COMPLETED] albuterol 2.5 mg/3 mL nebulizer solution 2.5 mg 2.5 mg Nebulization RT Onc e Sailaja Nicholson MD 2.5 mg at 10/19/15 1440 Review of Systems: General: []Weight loss/gain (over 10 lbs) []Fever/chills/sweats []Night sweats Hematologic: []Bleeding/bruising tendencies []History of blood transfusion []Anemia []Enlarged lymph no elizabet EENT: []Hearing loss []Vision loss/change [x]Sinus congestion/nasal drainage []Nosebleeds [ ]Hoarseness Cardiac: []Chest pain []Palpitations/heart racing []Swelling of legs/ankles []Waking up at night s hort of breath [x]Difficulty sleeping flat Gastrointestinal: []Nausea/vomiting []Difficulty swallowing []Heartburn/acid reflux []Loss of appetite []Abd ominal pain Musculoskeletal: [x]Joint stiffness/swelling []Joint pain [x]Back pain [x]Arthritis []Gout Urologic: []Blood in urine [x]Frequent urination at night []Burning/painful urination []Difficulty wi th urination Neurological: []Headaches []Seizures []Memory loss or confusion []Numbness or tingling in feet or hands Psychiatric: [x]Depression []Anxiety/panic attacks []Suicidal ideation Sleep: []Difficulty falling asleep [x]Waking up at night frequently [x]Snoring [x]Stop breathing in their sleep []Fall asleep frequently, or excessively tired Objective BP 104/70 mmHg | Pulse 100 | Ht 1.778 m (5' 10") | Wt 125.964 kg (277 lb 11.2 oz) | BMI 39. 85 kg/m2 | SpO2 92% RA General Appearance: Alert, cooperative, no distress, appears stated age Head: Normocephalic, without obvious abnormality, atraumatic Eyes: PERRL, conjunctiva clear, no scleral icterus, EOM's intact Ears: Normal TM's, external auditory canals, diminished acuity Nose: Nares normal, septum midline, mucosa normal Mouth: No oral lesions or exudate Neck: Supple, symmetrical, no adenopathy Lungs: No accessory muscle use, breath sounds are slightly diminished bilaterally with so me prolongation of the expiratory phase, no wheezes, crackles or rhonchi Chest Wall: No deformity Heart: Regular rate and rhythm, no murmur, rub or gallop Abdomen: Soft, non-tender, non-distended, obese Extremities: No cyanosis, clubbing, or edema Pulses: Radial pulses 2+ and symmetric Skin: Warm and dry Lymph nodes: Cervical and supraclavicular nodes normal Data: Chest x-ray done May 19, 2015 was reviewed and interpreted in clinic today. It shows elevation of the left an diaphragm, and an indwelling pacemaker. Single view chest x-ray in August then shows possible pulmonary venous congestion. Chest CT scan done August 13, 2015 was reviewed and interpreted in clinic today. It shows left lung base atelectasis in the area of the diaphragm elevation, no evidence of a PE and resolution of a previous right sided effusion. Lung architecture is difficult to appreciate as it is not a great inspiratory film, but some emphysema seems possible (this is a big poss ible). Pulmonary function tests were performed prior to clinic today and were reviewed and interpr eted in clinic today. They show moderate restrictive physiology on spirometry without a sig nificant response to inhaled bronchodilator, and a mildly reduced diffusion capacity. Echocardiogram was performed on May 17, 2015 and results were reviewed in clinic drake garcía. 1. Undetermined rhythm. 2. A limited 2-dimensional transthoracic echocardiogram with limited spectral and color cammie w Doppler was performed. 3. This was a technically adequate study. 4. Overall left ventricular systolic function is moderately impaired with, an EF between 35 - 40 %. 5. The left ventricle cavity size is normal. 6. Left ventricular wall thickness is normal. 7. The right ventricle is normal in size. 8. The right ventricular systolic function is mildly impaired. 9. The left atrium is mildly dilated. 10. The right atrium was not well visualized. 11. The mitral valve is normal. 12. Trace tricuspid regurgitation present. Left heart cath with LV gram was performed on November 05, 2008 and results were reviewed in norm mitchell today. CORONARY ANGIOGRAPHY 1. The left main is a large-caliber vessel that trifurcates giving rise to the left anterior descending (LAD) and left circumflex artery as well as the ramus intermedius branch. The left main is free of disease. The LAD is a large-caliber vessel that gives rise to 4 diagonal branches and multiple septal branches. The LAD and its branches are free of disease. 2. The left circumflex is a large-caliber vessel that gives rise to 2 obtuse marginal branches. The left circumflex system is free of disease. The ramus intermedius branch is a large-caliber vessel that appears to be free of disease. 3. The RCA is a large-caliber dominant vessel that gives rise to the right posterior descending artery (PDA), posterolateral artery (ELLIE) and 1 right ventricular (RV) marginal branch. The RCA and its branches are free of disease. ESTIMATED BLOOD LOSS Less than 50 mL. CONCLUSION 1. Severe nonischemic cardiomyopathy with left ventricular ejection fraction estimated at 15% to 20/ 2. Normal epicardial coronary arteries. 3. Normal left ventricular pressures. Labs: Ref. Range 08/13/2015 00:00 WBC, External Latest Ref Range: 4.5-11 9.0 RBC, External Latest Ref Range: 4.3-5.7 5.07 HGB, External Latest Ref Range: 13.5-18 15 HCT, External Latest Ref Range: 41-50 46.8 MCV, External Latest Ref Range: 81-99 92 MCH Latest Ref Range: 26.0-33.0 pg 30.0 MCHC Latest Ref Range: 31.0-37.0 % 32.0 RDW, External Latest Ref Range: 10.5-15 13.1 PLT, External Latest Ref Range: 140-440 197 Neutrophils %, External Latest Ref Range: 39-80 78.8 Lymphocytes %, External Latest Ref Range: 24-44 9.1 (A) Monocytes %, External Latest Ref Range: 0-12 8.5 Eosinophils %, External Latest Ref Range: 0-6 1.6 BASOPHILS % Latest Ref Range: 0.0-2.0 % 2.0 D-DIMER, QUANTITATIVE Latest Ref Range: 100 D-DU ng/ml 697 (A) Sodium, External Latest Ref Range: 132-143 136 Potassium, External Latest Ref Range: 3.6-5.1 4.1 Carbon Dioxide, External Latest Ref Range: 19-31 29 Chloride, External Latest Ref Range: 95-112 100 ANION GAP Latest Ref Range: 7-21 mmol/L 11 Glucose, External Latest Ref Range: 70-100 135 (A) BUN, External Latest Ref Range: 6-23 15 Bun/Creatinine Latest Ref Range: 6.0-28.6 16.5 Creatinine, External Latest Ref Range: 0.7-1.25 0.91 Albumin, External Latest Ref Range: 3.5-5 3.8 Calcium, External Latest Ref Range: 8.4-10.2 9.0 ALP, External Latest Ref Range: 30-128 56 ALT, External Latest Ref Range: 7-52 20 AST, External Latest Ref Range: 13-39 16 Bilirubin, Total, External Latest Ref Range: 0-1.2 1.8 (A) Protein, Total, External Latest Ref Range: 6-8 6.0 Albumin/Globulin Ratio Latest Ref Range: 1.1-2.4 1.7 eGFR, External Unknown 83 Lactic Acid Latest Ref Range: 0.5-2.2 mmol/L 1.3 Troponin T, External Latest Ref Range: 0.01 <0.010 Globulin Latest Ref Range: 1.8-3.5 2.2 Ref. Range 08/26/2015 00:00 B-Type Naturetic Peptide, External Latest Ref Range: 0-100 30 Troponin T, External Latest Ref Range: 0.01 <0.010 Carla Juarez PA-C's notes were reviewed in clinic today. Immunization History Administered Date(s) Administered PNEUMOCOCCAL, UNSPECIFIED FORMULATION 09/19/2005 Assessment ICD-10-CM ICD-9-CM 1. Dyspnea on exertion R06.09 786.09 I suspect that this is multi factorial, but related in large part to his deconditioning from multi recent events, being off work for a year, under lying severe cardiac disease, left diaphragm elevation (possibly paralysis) and general decl ine in activity. He may have some underlying obstructive disease, but his PFTs don't show obstructive diseas e, and his CT is difficult to interpret and may show mild emphysema. I think a large part of this is he needs to increase his activity and spend less time sitti ng down. 2. 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 If paralyze d, unclear how, though it has been this way for several years. Possibly relates to pacemaker placement, though uncommon without having to do an open lead placement. Possibly due to occ ult childhood polio (just based on age). FL Sniff Test 3. Panlobular emphysema (HCC) J43.1 492.8 Possible, on CT, though poor quality. No history of tobacco use, so would be due to second hand smoke exposure. We will try a long acting inh aler. Overnight oximetry, room air 4. Non-ischemic cardiomyopathy (HCC) I42.9 425.4 This is significant, though BNP in August suggests fluid overload is not an issue, though notably, given BMI this may not be a reliab le marker of his fluid status. 5. MOISÉS (obstructive sleep apnea) G47.33 327.23 This is a presumptive diagnosis. I have enco uraged a sleep study as if this is significant, treatement would likely improve all of his i ssues and symptoms. Plan 1.Start on Incruse 1 inhalation daily, every day. 2. I recommended walking 5 minutes daily. 3. Check a sniff test to see if left an diaphragm is paralyzed. 4. Check overnight oximetry on room air. 5. I again brought up and recommended a sleep study and he said he would consider it. 6. Sleep paperwork at next appointment. He was advised to call if new pulmonary symptoms were to develop. Return to clinic in 8 weeks, or sooner with concerns. CC: Carla Juarez PA-C Portions of this report were transcribed using voice recognition software. Every effort wa s made to ensure accuracy; however, inadvertent computerized intelligence specialist errors may be pre sent. Electronically signed by: Sailaja Nicholson MD documented in t his encounter Plan of Treatment +--------+ + + + + | Date | Type | Specialty | Care Team | Description | +--------+ + + + + | 07/30/ | Office | Cardiology | Mary Tipton ANP | | | 2018 | Visit | | [address] | | | | | | [place] | | | | | | [id number] | | | | | | | [...] | | | | | [place] [address] | | | | | | [phone] | | | | | | | | +--------+ + + + + | 10/21/ | Office | Cardiology | Nav Foley, | | | 2019 | Visit | | MD [address] | | | | | | [place] [address] | | | | | | [phone] | | | | | | | | +--------+ + + + + + + +--------+ + + | Name | Type | Priori | Associated Diagnoses | Order Schedule | | | | ty | | | + + +--------+ + + | Overnight oximetry, | Respiratory | Routin | Panlobular | Expected: | | room air | Care | e | emphysema (HCC) | 10/19/2015, Expires: | | | | | | 10/18/2016 | + + +--------+ + + | FL Sniff Test | Imaging | Routin | Elevated left | Expected: | | | | e | diaphragm | 10/19/2015, Expires: | | | | | | 10/18/2016 | + + +--------+ + + documented as of this encounter Visit Diagnoses + + | Diagnosis | + + | Dyspnea on exertion Other dyspnea and respiratory abnormality | + + | Elevated left diaphragm Disorders of diaphragm | + + | Panlobular emphysema (HCC) Other emphysema | + + | Non-ischemic cardiomyopathy (HCC) Other primary cardiomyopathies | + + | MOISÉS (obstructive sleep apnea) Obstructive sleep apnea (adult) (pediatric) | + + documented in this encounter
--- OUTSIDE RECORDS SUMMARY | ~2019-07-23 | XMS | Encounter Summary ---
Demographics + + + | Address | [address] | | | [place] [address] | + + + | Home Phone | | + + + | Preferred Language | Unknown | + + + | Marital Status | | + + + | Confucianist Affiliation | Unknown | + + + | Race | Unknown | + + + | Ethnic Group | Unknown | + + + Author + + + | Author | [facility] | | | and [place] | + + + | Organization | [facility] | | [...] Team Providers + +------+ + | Care Copy Supervisor Name | Role | Phone | + +------+ + PCP | Unavailable | + +------+ + Encounter Details +--------+ + + + + | Date | Type | Department | Care Team | Description | +--------+ + + + + | 05/11/ | Hospital | [facility] | Conversion | Pain | | 2015 | Encounter | CONVERSION DEP [address] | Transaction, | | | | | ANGÉLICA WOLFE | Provider Unknown | | | | | [address]TEGA | [phone] | | | | | [phone] | | | | | | [phone] | | | +--------+ + + + [...] [address] | | | | | | [phone] | | | | | | | [...] ELIAS | | | | | | [place] [address] | | | | | | [phone] | | | | | | | | +--------+ + + + + | 10/21/ | Office | Cardiology | Nav Foley, | | | 2019 | Visit | | MD [address] | | | | | | [place] [address] | | | | | | [phone] | | | | | | | | +--------+ + + + + documented as of this encounter Procedures + +--------+ + + + | Procedure Name | Priori | Date/Time | Associated Diagnosis | Comments | | | ty | | | | + +--------+ + + + | CT ANGIOGRAM ABDOMEN | Routin | 03/30/2015 | | Results for this | | PELVIS W CONTRAST | e | 1:05 AM | | procedure are in the | | | | PDT | | results section. | + +--------+ + + + documented in this encounter Results CT Angiogram Abdomen Pelvis w Contrast (03/30/2015 1:05 AM PDT) + + | Specimen | + + [...]
--- OUTSIDE RECORDS SUMMARY | ~2019-07-23 | XMS | Encounter Summary ---
Demographics + + + | Address | [address] | | | [place] [address] | + + + | Home Phone | | + + + | Preferred Language | Unknown | + + + | Marital Status | | + + + | Presybeterian Affiliation | Unknown | + + + | Race | Unknown | + + + | Ethnic Group | Unknown | + + + Author + + + | Author | [facility] | | | and [place] | + + + | Organization | [facility] | | | [...] Team Providers + +------+ + | Care Esthetician Spa Name | Role | Phone | + +------+ + | Carla Murphy | PCP | | | PA-C | | | + +------+ + Encounter Details +--------+ + + + + | Date | Type | Department | Care Team | Description | +--------+ + + + + | 01/20/ | Hospital | [facility] | Therese Sarabia DO | Hypotension due to | | 2017 - | Encounter | MEDICAL CENTER | [address] | drugs; Non-sustained | | | | CLINICAL DECISION | [place] [address] | ventricular | | 01/21/ | | [address] | [phone] | tachycardia (HCC) | | 2017 | | [place], [place] | | | | | | [address] | | | | | | [phone] | | | +--------+ + + + [...] | | | + +---+---+---+ + + +---------+ + | Alcohol Use | Drinks/Week | oz/Week | Comments | + + +---------+ + | No | 0 Standard drinks | 0.0 | | | | or equivalent | | | + + +---------+ + + + [...] + + + | Blood Pressure | 90/55 | 01/21/2017 8:15 AM | | | | | PDT | | + + + + + | Pulse | 71 | 01/21/2017 8:15 AM | | | | | PDT | | + + + + + | Temperature | 36.7 C (98 F) | 01/21/2017 8:15 AM | | | | | PDT | | + + + + + | Respiratory Rate | 18 | 01/21/2017 8:15 AM | | | | | PDT | | + + + + + | Oxygen Saturation | - | - | | + + + + + | Inhaled Oxygen | - | - | | | Concentration | | | | + + + + + | Weight | 123.4 kg (272 lb) | 01/21/2017 8:15 AM | | | | | PDT | | + + + + + | Height | 177.8 cm (5' 10") | 01/21/2017 8:15 AM | | | | | PDT | | + + + + + | Body Mass Index | 39.03 | 01/21/2017 8:15 AM | | | | | PDT | | + + + + + documented in this encounter Discharge Summaries Beau Rudolph MD - 01/21/2017 8:52 AM PDTFormatting of this note might be different from tonya graham. Discharge Summaries by Beau Rudolph MD at 01/21/17851 Author: Beau Rudolph MD Service: (none) Author Type: Physician Filed: 01/21/17 0856 Date of Service: 01/21/17851 Status: Signed Analytical Clerk: Beau Rudolph MD (Physician) [facility] Service: Hospitalist Physician Discharge Summary Patient ID: Jared Abraham [id number] y.o. 1945 Admit date: 01/20/2017 Discharge date and time: 01/21/2017 Admitting Physician: Therese Sarabia DO Discharge Physician: Beau Rudolph MD Consultants: Treatment Team: Consulting Physician: Therese Sarabia DO Admitting Provider: Therese Sarabia DO Discharge Diagnoses: Principal Problem: Hypotension Active Problems: Non-ischemic cardiomyopathy (HCC) AICD (automatic cardioverter/defibrillator) present Non-sustained ventricular tachycardia (HCC) MOISÉS (obstructive sleep apnea) The first problem in the assessment and plan below is a primary discharge diagnosis unless specifically stated otherwise. HPI and Hospital Course: * 71 y.o.male past medical history of significant sleep apnea, obesity, nonischemic myopathy EF 35 percent status post AICD follows with cardiology as an outpatient. Who presented with dizziness and hypotension to 80 systolic. Patient has been taking Toprol 25 and Aldactone for some time but recently a month back was changed to Coreg 3.125 and lisinopril 5 mg daily. But patient did not feel well on Coreg so he was changed back to Toprol 25 daily and continued on lisinopril 5 mg daily on which she did fine for a week or more. The 2 weeks back he increased lisinopril to 10 mg daily and then since then has been having dizziness on and off lightheadedness and yesterday was found to have a blood pressure of 80 systolic. We are. Blood pressure has been stable after IV fluids no other signs of infectio n sepsis or other acute changes. Troponins have been negative 3 cardiac catheter was negat mark in 2008. Discussed with patient current plan of care. Recommended patient to resume Toprol 25 g benny y which has been done already. Advised patient to wait for today and tomorrow and resume lis inopril at 5 mg as before and monitor symptoms from thereon - if stable continue with this r egimen only and not to increase her lisinopril to 10 mg. But if has any blood pressure prescott es with lisinopril 5 to stop that also. And follow up with PCP and cardiology as an outpatie nt. Patient was understanding of plan of care. Condition at discharge: stable as dictated above Primary discharge diagnosis: Hypotension medication induced Disposition: *Home Follow up: Carla Juarez PA-C [address] [place] [address] Nav Foley MD [facility] [place] [id number] Dictation and weight trainer or software, [employer], used which may contain error for similar s ounding words even after review. Personal communication requested for any clarification. Discharge Vitals: Filed Vitals: 01/21/17 0126 01/21/17 0150 01/21/17 0252 01/21/17 0813 BP: 123/66 123/72 112/76 90/55 Pulse: 80 78 87 71 Temp: 98.2 F (36.8 C) 98 F (36.7 C) TempSrc: Oral Oral Resp: 20 18 Height: 1.778 m (5' 10") Weight: 123.378 kg (272 lb) SpO2: 96% 97% 93% 96% Discharge Exam: General: Well nourished. Psych: Alert and oriented x 3. Calm, cooperative. Cardiovascular: Regular rate and rhythm, no murmurs, no thrills. Normal PMI. Respiratory: Clear to auscultation, no wheezing or crackles, breathing non labored. Gastrointestinal: Soft, non-tender, non-distended, positive bowel sounds. No HSM. Musculoskeletal: Mild edema in bilateral lower extremities. No joint swelling. Skin: Warm and dry, no rashes. Neck: No JVD, Trachea midline. Neurological: Non focal. Motor grossly intact. Secondary Discharge Diagnoses AND Other Medical History: Past Medical History Diagnosis Date Enlarged heart COPD (chronic obstructive pulmonary disease) (HCC) Pacemaker [place] (hard of hearing) Hypertension Hyperlipidemia AAA (abdominal aortic aneurysm) (HCC) MOISÉS (obstructive sleep apnea) 01/21/2017 Past Surgical History Procedure Laterality Date Pacemaker insertion 01/22/2014 Appendectomy Hernia repair Tumor removal head and neck Hand surgery tube put in to drain infection. Was put out for it as a child Aortic endograft N/A 09/23/2014 Procedure: AORTIC - ENDOGRAFT; Surgeon: Vincent Fields MD; Location: [facility] OR/MANAGER TREASURY; Ser vice: Vascular; Laterality: N/A; Significant Diagnostic Studies: No results found. LABS: CBC: Lab Results Component Value Date WBC 10.73 01/21/2017 RBC 4.85 01/21/2017 HGB 14.7 01/21/2017 HCT 44.4 01/21/2017 MCV 91.4 01/21/2017 MCH 30.3 01/21/2017 MCHC 33.2 01/21/2017 RDW 47.7 01/21/2017 PLT 192 01/21/2017 MPV 8.7 01/21/2017 DIFFTYPE AUTOMATED 01/21/2017 CMP: Lab Results Component Value Date NA 141 01/21/2017 K 4.0 01/21/2017 CL 105 01/21/2017 CO2 29 01/21/2017 ANIONGAP 10 01/21/2017 GLUF 144* 01/21/2017 BUN 11 01/21/2017 CREATININE 0.85 01/21/2017 BCR 13 01/21/2017 CA 7.9* 01/21/2017 PROT 6.1* 01/21/2017 ALB 3.2* 01/21/2017 GLOB 2.9 01/21/2017 BILITOT 0.7 01/21/2017 ALP 57 01/21/2017 AST 14 01/21/2017 ALT 21 01/21/2017 EGFR >60 01/21/2017 Albumin: Lab Results Component Value Date ALB 3.2* 01/21/2017 Magnesium: Lab Results Component Value Date MG 2.3 01/21/2017 Phosphorus: Lab Results Component Value Date PHOS 3.4 01/21/2017 PT/INR: Lab Results Component Value Date PROTIME 13.6 11/02/2015 INR 1.1 01/21/2017 Troponin: Lab Results Component Value Date TROPONINI <0.020 01/21/2017 Last 3 Troponin: Lab Results Component Value Date TROPONINI <0.020 01/21/2017 TROPONINI <0.020 01/21/2017 TROPONINI <0.020 01/21/2017 TSH: No results found for: TSH, TSHNEO Patient Instructions: Medication List START taking these medications metoprolol 25 MG 24 hr tablet QTY: 30 tablet Refills: 0 Commonly known as: TOPROL-XL Take 1 tablet by mouth daily. CHANGE how you take these medications lisinopril 5 MG tablet QTY: 30 tablet Refills: 0 Doctor's comments: Hold for 2 days - start if BP stable after that. Commonly known as: ZESTRIL Take 1 tablet by mouth daily. What changed: - medication strength - how much to take CONTINUE taking these medications aspirin 81 MG EC tablet Refills: 0 fluticasone 50 MCG/ACT nasal Refills: 0 Commonly known as: FLONASE levothyroxine 75 MCG tablet Refills: 0 Commonly known as: SYNTHROID loratadine 10 MG tablet Refills: 0 Commonly known as: CLARITIN triamcinolone 55 MCG/ACT nasal inhaler Refills: 0 Commonly known as: NASACORT AQ Vitamin D3 03594 units Caps Refills: 0 STOP taking these medications metoprolol 25 MG tablet Commonly known as: LOPRESSOR Where to Get Your Medications You can get these medications from any pharmacy Bring a paper prescription for each of these medications - lisinopril 5 MG tablet - metoprolol 25 MG 24 hr tablet Activity: activity as tolerated Diet: Cardiac Diet Discharge took more than 35 minutes, to include final examination, discussion of admission, and preparation of prescriptions, instructions for ongoing care, follow up and dictation of summary. There are no Patient Instructions on file for this visit. Follow-up with PMD and other physicians as directed. Signed: Beau Rudolph 01/21/2017 8:52 AM documented in this encou nter Medications at Time of Discharge + + + +---------+ + + | Medication | Sig | Dispensed | Refills | Start | End Date | | | | | | Date | | + + + +---------+ + + | aspirin 81 mg EC | Take 81 mg by mouth | | 0 | | | | tablet | Daily. | | | | | + + + +---------+ + + | levothyroxine | Take one tablet | | 0 | 02/15/20 | | | (SYNTHROID) 88 mcg | daily | | | 16 | | | tablet | | | | | | + + + +---------+ + + | albuterol 90 | Inhale 2 puffs into | | 0 | | | | mcg/puff inhaler | the lungs every 6 | | | | 9 | | | hours as needed for | | | | | | | Wheezing. | | | | | + + + +---------+ + + | cetirizine | Take one tablet | | 0 | | | | (ZYRTEC) 10 mg | daily | | | | 9 | | tablet | | | | | | + + + +---------+ + + | fluticasone | 1 spray by Nasal | | 0 | | | | (FLONASE) 50 | route Daily. | | | | 9 | | mcg/nasal spray | | | | | | + + + +---------+ + + | metoprolol | Take 25 mg by mouth | | 0 | | | | tartrate (LOPRESSOR) | Daily. | | | | 9 | | 25 mg tablet | | | | | | + + + +---------+ + + | spironolactone | Take 25 mg by mouth | | 0 | | | | (ALDACTONE) 25 mg | Daily. 08/21 tab daily | | | | 9 | | tablet | | | | | | + + + +---------+ + + | tiotropium | Inhale contents of | 30 | 5 | 10/22/19 | | | (SPIRIVA HANDIHALER) | one capsule once | capsule | | 16 | 9 | | 18 mcg inhalation | daily (do not | | | | | | capsule | swallow capsules) | | | | | + + + +---------+ + + documented as of this encounter Progress Notes Conversion Transaction, Provider Unknown - 01/21/2017 9:44 AM PDTFormatting of this note m ight be different from the original. Nurse Progress Note by Kalpana Bell RN at 01/21/17943 Author: Kalpana Bell RN Service: (none) Author Type: Registered Nurse Filed: 01/21/1749 Date of Service: 01/21/17943 Status: Addendum Analytical Clerk: Kalpana Bell RN (Registered Nurse) Related Notes: Original Note by Kalpana Bell RN (Registered Nurse) filed at 01/21/17 0 944 Discharge instructions given, all questions answered, patient expresses understanding. IV removed. Pt waiting ride home with family. onver chetna Transaction, Provider Unknown - 01/21/2017 3:38 AM PDT Progress Notes by Stanford Camarillo RPH at 01/21/17337 Author: Stanford Camarillo RPH Service: (none) Author Type: Pharmacist Filed: 01/21/17337 Date of Service: 01/21/17337 Status: Signed Analytical Clerk: Stanford Camarillo RPH (Pharmacist) Note ccl 103.3ml/min meds reviewed Pharmacy will follow [id number] [id number] docume nted in this encounter Plan of Treatment +--------+ + + + + | Date | Type | Specialty | Care Team | Description | +--------+ + + + + | 07/30/ | Office | Cardiology | Mary Tipton, ANP | | | 2018 | Visit | | [address] | | | | | | [place] | | | | | | [address] | | | | | | | [...] | | | | | [place] [address] | | | | | | [phone] | | | | | | | | +--------+ + + + + | 10/21/ | Office | Cardiology | Nav Foley, | | | 2019 | Visit | | [address] | | | | | | [place] [address] | | | | | | [phone] | | | | | | | | +--------+ + + + + documented as of this encounter Procedures + +--------+ + + + | Procedure Name | Priori | Date/Time | Associated Diagnosis | Comments | | | ty | | | | + +--------+ + + + | TROPONIN I | Routin | 01/21/2017 | | Results for this | | | e | 7:31 AM | | procedure are in the | | | | PDT | | results section. | + +--------+ + + + | CK-MB | Routin | 01/21/2017 | | Results for this | | | e | 7:31 AM | | procedure are in the | | | | PDT | | results section. | + +--------+ + + + | CK TOTAL | Routin | 01/21/2017 | | Results for this | | | e | 7:31 AM | | procedure are in the | | | | PDT | | results section. | + +--------+ + + + | TROPONIN I | Routin | 01/21/2017 | | Results for this | | | e | 4:10 AM | | procedure are in the | | | | PDT | | results section. | + +--------+ + + + | CK-MB | Routin | 01/21/2017 | | Results for this | | | e | 4:10 AM | | procedure are in the | | | | PDT | | results section. | + +--------+ + + + | PROTIME INR | Routin | 01/21/2017 | | Results for this | | | e | 4:10 AM | | procedure are in the | | | | PDT | | results section. | + +--------+ + + + | CK TOTAL | Routin | 01/21/2017 | | Results for this | | | e | 4:10 AM | | procedure are in the | | | | PDT | | results section. | + +--------+ + + + | EXTERNAL LAB: CBC | Routin | 01/21/2017 | | Results for this | | | e | 3:00 AM | | procedure are in the | | | | PDT | | results section. | + +--------+ + + + | LIPID PANEL | Routin | 01/21/2017 | | Results for this | | | e | 3:00 AM | | procedure are in the | | | | PDT | | results section. | + +--------+ + + + | TROPONIN I | Routin | 01/21/2017 | | Results for this | | | e | 3:00 AM | | procedure are in the | | | | PDT | | results section. | + +--------+ + + + | CK-MB | Routin | 01/21/2017 | | Results for this | | | e | 3:00 AM | | procedure are in the | | | | PDT | | results section. | + +--------+ + + + | PHOSPHORUS | Routin | 01/21/2017 | | Results for this | | | e | 3:00 AM | | procedure are in the | | | | PDT | | results section. | + +--------+ + + + | MAGNESIUM | Routin | 01/21/2017 | | Results for this | | | e | 3:00 AM | | procedure are in the | | | | PDT | | results section. | + +--------+ + + + | CK TOTAL | Routin | 01/21/2017 | | Results for this | | | e | 3:00 AM | | procedure are in the | | | | PDT | | results section. | + +--------+ + + + | BASIC METABOLIC | Routin | 01/21/2017 | | Results for this | | PANEL | e | 3:00 AM | | procedure are in the | | | | PDT | | results section. | + +--------+ + + + | EXTERNAL LAB: CBC | Routin | 01/21/2017 | | Results for this | | | e | 12:22 AM | | procedure are in the | | | | PDT | | results section. | + +--------+ + + + | PROTIME INR | Routin | 01/21/2017 | | Results for this | | | e | 12:22 AM | | procedure are in the | | | | PDT | | results section. | + +--------+ + + + | PHOSPHORUS | Routin | 01/21/2017 | | Results for this | | | e | 12:22 AM | | procedure are in the | | | | PDT | | results section. | + +--------+ + + + | B TYPE NATRIURETIC | Routin | 01/21/2017 | | Results for this | | PEPTIDE | e | 12:22 AM | | procedure are in the | | | | PDT | | results section. | + +--------+ + + + | MAGNESIUM | Routin | 01/21/2017 | | Results for this | | | e | 12:22 AM | | procedure are in the | | | | PDT | | results section. | + +--------+ + + + | COMPREHENSIVE | Routin | 01/21/2017 | | Results for this | | METABOLIC PANEL | e | 12:22 AM | | procedure are in the | | | | PDT | | results section. | + +--------+ + + + documented in this encounter Results CK-MB (01/21/2017 7:31 AM PDT) + + + + + -+ | Component | Value | Ref Range | Performed | Pathologist | | | | | At | Signature | + + + + + -+ | CK-MB | 2.4 | 0.5 - 3.6 ng/mL | EXTERNAL | | | | | | LAB | | + + + + + -+ | CK-MB Index | 4.1Comment: CK INDEX | | EXTERNAL | | | | INTERPRETATION: | | LAB | | | | MMB ng/mL | | | | | | | | | | | |CK INDEX INTERPRETATION: | | | | | | MMB ng/mL | | | | | | | | | | + + + + + -+ + + | Specimen | + + | | + + + +---------+ + + | Performing | Address | City/State/Zipcode | Phone Number | | Organization | | | | + +---------+ + + | EXTERNAL LAB | | | | + +---------+ + + Troponin I (01/21/2017 7:31 AM PDT) + + + + + + | Component | Value | Ref Range | Performed | Pathologist | | | | | At | Signature | + + + + + + | Troponin I, | <0.020Comment: 0.00 to | 0.00 - 0.10 | EXTERNAL | | | Qual | 0.10 CONSISTENT WITH | ng/mL | LAB | | | | NORMAL POPULATION0.11 | | | | | | to 0.60 CONSISTENT | | | | | | WITH INCREASED RISK FOR | | | | | | ADVERSE OUTCOMES> 0.60 | | | | | | CONSISTENT | | | | | | WITH WHO CRITERIA FOR | | | | | | ACUTE PR Testing | | | | | | performed at [facility] | | | | | | [facility];[place], [place] | | | | | | [address] | | | | + + + + + + + + | Specimen | + + | Blood specimen | | (specimen) | + + + +---------+ + + | Performing | Address | City/State/Zipcode | Phone Number | | Organization | | | | + +---------+ + + | EXTERNAL LAB | | | | + +---------+ + + CK Total (01/21/2017 7:31 AM PDT) + + + + + + | Component | Value | Ref Range | Performed | Pathologist | | | | | At | Signature | + + + + + + | CK, Total | 58Comment: Testing | 55 - 400 U/L | EXTERNAL | | | | performed at [facility] | | [address] | | | | [address];[place], [place] | | | | | | [address] | | | | + + + + + + + + | Specimen | + + | Blood specimen | | (specimen) | + + + +---------+ + + | Performing | Address | City/State/Zipcode | Phone Number | | Organization | | | | + +---------+ + + | EXTERNAL LAB | | | | + +---------+ + + CK-MB (01/21/2017 4:10 AM PDT) + + + + + -+ | Component | Value | Ref Range | Performed | Pathologist | | | | | At | Signature | + + + + + -+ | CK-MB | 1.8 | 0.5 - 3.6 ng/mL | EXTERNAL | | | | | | LAB | | + + + + + -+ | CK-MB Index | 3.5Comment: CK INDEX | | EXTERNAL | | | | INTERPRETATION: | | LAB | | | | MMB ng/mL | | | | | | | | | | | |CK INDEX INTERPRETATION: | | | | | | MMB ng/mL | | | | | | | | | | + + + + + -+ + + | Specimen | + + | | + + + +---------+ + + | Performing | Address | City/State/Zipcode | Phone Number | | Organization | | | | + +---------+ + + | EXTERNAL LAB | | | | + +---------+ + + Troponin I (01/21/2017 4:10 AM PDT) + + + + + + | Component | Value | Ref Range | Performed | Pathologist | | | | | At | Signature | + + + + + + | Troponin I, | <0.020Comment: 0.00 to | 0.00 - 0.10 | EXTERNAL | | | Qual | 0.10 CONSISTENT WITH | ng/mL | LAB | | | | NORMAL POPULATION0.11 | | | | | | to 0.60 CONSISTENT | | | | | | WITH INCREASED RISK FOR | | | | | | ADVERSE OUTCOMES> 0.60 | | | | | | CONSISTENT | | | | | | WITH WHO CRITERIA FOR | | | | | | ACUTE PR Testing | | | | | | performed at [facility] | | | | | | [address];[place], [place] | | | | | | [address] | | | | + + + + + + + + | Specimen | + + | Blood specimen | | (specimen) | + + + +---------+ + + | Performing | Address | City/State/Zipcode | Phone Number | | Organization | | | | + +---------+ + + | EXTERNAL LAB | | | | + +---------+ + + Protime INR (01/21/2017 4:10 AM PDT) + + + + + + | Component | Value | Ref Range | Performed | Pathologist | | | | | At | Signature | + + + + + + | INR | 1.1Comment: REFERENCE | | EXTERNAL | | | | RANGE:0.9 - 1.2 | | LAB | | | | NON-ANTICOAGULATED2.0 | | | | | | - 3.0 ALL OTHER | | | | | | THERAPEUTIC | | | | | | INDICATIONS2.5 - 3.5 | | | | | | MECHANICAL HEART VALVES, | | | | | | RECURRENT OR SYSTEMIC | | | | | | EMBOLISMTesting | | | | | | performed at [facility] | | | | | | [address];[place], [place] | | | | | | [address] | | | | + + + + + + + + | Specimen | + + | Blood specimen | | (specimen) | + + + +---------+ + + | Performing | Address | City/State/Zipcode | Phone Number | | Organization | | | | + +---------+ + + | EXTERNAL LAB | | | | + +---------+ + + CK Total (01/21/2017 4:10 AM PDT) + + + + + + | Component | Value | Ref Range | Performed | Pathologist | | | | | At | Signature | + + + + + + | CK, Total | 52 (L)Comment: Testing | 55 - 400 U/L | EXTERNAL | | | | performed at [facility] | | LAB | | | | [address];[place] | | | | | | [address] | | | | + + + + + + + + | Specimen | + + | Blood specimen | | (specimen) | + + + +---------+ + + | Performing | Address | City/State/Zipcode | Phone Number | | Organization | | | | + +---------+ + + | EXTERNAL LAB | | | | + +---------+ + + CK-MB (01/21/2017 3:00 AM PDT) + + + + + -+ | Component | Value | Ref Range | Performed | Pathologist | | | | | At | Signature | + + + + + -+ | CK-MB | 1.7 | 0.5 - 3.6 ng/mL | EXTERNAL | | | | | | LAB | | + + + + + -+ | CK-MB Index | 3.2Comment: CK INDEX | | EXTERNAL | | | | INTERPRETATION: | | LAB | | | | MMB ng/mL | | | | | | | | | | | |CK INDEX INTERPRETATION: | | | | | | MMB ng/mL | | | | | | | | | | + + + + + -+ + + | Specimen | + + | | + + + +---------+ + + | Performing | Address | City/State/Zipcode | Phone Number | | Organization | | | | + +---------+ + + | EXTERNAL LAB | | | | + +---------+ + + Troponin I (01/21/2017 3:00 AM PDT) + + + + + + | Component | Value | Ref Range | Performed | Pathologist | | | | | At | Signature | + + + + + + | Troponin I, | <0.020Comment: 0.00 to | 0.00 - 0.10 | EXTERNAL | | | Qual | 0.10 CONSISTENT WITH | ng/mL | LAB | | | | NORMAL POPULATION0.11 | | | | | | to 0.60 CONSISTENT | | | | | | WITH INCREASED RISK FOR | | | | | | ADVERSE OUTCOMES> 0.60 | | | | | | CONSISTENT | | | | | | WITH WHO CRITERIA FOR | | | | | | ACUTE PR Testing | | | | | | performed at [facility] | | | | | | [address];[place], [place] | | | | | | [address] | | | | + + + + + + + + | Specimen | + + | Blood specimen | | (specimen) | + + + +---------+ + + | Performing | Address | City/State/Zipcode | Phone Number | | Organization | | | | + +---------+ + + | EXTERNAL LAB | | | | + +---------+ + + External Lab: CBC (01/21/2017 3:00 AM PDT) + + + + + + | Component | Value | Ref Range | Performed | Pathologist | | | | | At | Signature | + + + + + + | WBC | 10.73 | 3.80 - 11.00 | EXTERNAL | | | | | K/uL | LAB | | + + + + + + | RED CELL | 4.85 | 4.20 - 5.70 | EXTERNAL | | | COUNT | | M/uL | LAB | | + + + + + + | Hgb | 14.7 | 13.2 - 17.0 | EXTERNAL | | | | | g/dL | LAB | | + + + + + + | Hematocrit, | 44.4 | 39.0 - 50.0 % | EXTERNAL | | | POC | | | LAB | | + + + + + + | MCV | 91.4 | 80.0 - 100.0 fl | EXTERNAL | | | | | | LAB | | + + + + + + | MCH | 30.3 | 27.0 - 34.0 pg | EXTERNAL | | | | | | LAB | | + + + + + + | MCHC | 33.2 | 32.0 - 35.5 | EXTERNAL | | | | | g/dL | LAB | | + + + + + + | RDW-CV | 47.7 | 37 - 53 fl | EXTERNAL | | | | | | LAB | | + + + + + + | Platelet | 192 | 150 - 400 K/uL | EXTERNAL | | | Count | | | LAB | | | Plasma | | | | | + + + + + + | MPV | 8.7 | fl | EXTERNAL | | | | | | LAB | | + + + + + + | Differentia | AUTOMATED | | EXTERNAL | | | l Type | | | LAB | | + + + + + + | % Segmented | 74.62 | % | EXTERNAL | | | | | | LAB | | | Neutrophils | | | | | + + + + + + | % | 17.58 | % | EXTERNAL | | | Lymphocytes | | | LAB | | + + + + + + | % Monocytes | 6.02 | % | EXTERNAL | | | | | | LAB | | + + + + + + | % | 1.12 | % | EXTERNAL | | | Eosinophils | | | LAB | | + + + + + + | % Basophils | 0.66 | % | EXTERNAL | | | | | | LAB | | + + + + + + | Absolute | 8.01 (H) | 1.90 - 7.40 | EXTERNAL | | | Segmented | | K/uL | LAB | | | Neutrophils | | | | | + + + + + + | Absolute | 1.89 | 1.00 - 3.90 | EXTERNAL | | | Lymphocytes | | K/uL | LAB | | + + + + + + | Absolute | 0.65 | 0.00 - 0.80 | EXTERNAL | | | Monocytes | | K/uL | LAB | | + + + + + + | Absolute | 0.12 | 0.00 - 0.50 | EXTERNAL | | | Eosinophils | | K/uL | LAB | | + + + + + + | Absolute | 0.07Comment: Testing | 0.00 - 0.10 | EXTERNAL | | | Basophils | performed at [facility], [address] | K[address]uL | LAB | | | | [address], | | | | | | [place] [address] | | | | + + + + + + + + | Specimen | + + | Blood specimen | | (specimen) | + + + +---------+ + + | Performing | Address | City/State/Zipcode | Phone Number | | Organization | | | | + +---------+ + + | EXTERNAL LAB | | | | + +---------+ + + Phosphorus (01/21/2017 3:00 AM PDT) + + + + + + | Component | Value | Ref Range | Performed | Pathologist | | | | | At | Signature | + + + + + + | PHOSPHORUS | 3.4Comment: Testing | 2.3 - 4.8 mg/dL | EXTERNAL | | | | performed at [facility] | | LAB | | | | [facility];[place], [place] | | | | | | [address] | | | | + + + + + + + + | Specimen | + + | Blood specimen | | (specimen) | + + + +---------+ + + | Performing | Address | City/State/Zipcode | Phone Number | | Organization | | | | + +---------+ + + | EXTERNAL LAB | | | | + +---------+ + + Magnesium (01/21/2017 3:00 AM PDT) + + + + + + | Component | Value | Ref Range | Performed | Pathologist | | | | | At | Signature | + + + + + + | Magnesium | 2.3Comment: Testing | 1.7 - 2.4 mg/dL | EXTERNAL | | | | performed at [facility] | | LAB | | | | [address];[place] | | | | | | [address] | | | | + + + + + + + + | Specimen | + + | Blood specimen | | (specimen) | + + + +---------+ + + | Performing | Address | City/State/Zipcode | Phone Number | | Organization | | | | + +---------+ + + | EXTERNAL LAB | | | | + +---------+ + + CK Total (01/21/2017 3:00 AM PDT) + + + + + + | Component | Value | Ref Range | Performed | Pathologist | | | | | At | Signature | + + + + + + | CK, Total | 53 (L)Comment: Testing | 55 - 400 U/L | EXTERNAL | | | | performed at [facility] | | LAB | | | | [address];[place], [place] | | | | | | [address] | | | | + + + + + + + + | Specimen | + + | Blood specimen | | (specimen) | + + + +---------+ + + | Performing | Address | City/State/Zipcode | Phone Number | | Organization | | | | + +---------+ + + | EXTERNAL LAB | | | | + +---------+ + + Lipid Panel (01/21/2017 3:00 AM PDT) + + + + + + | Component | Value | Ref Range | Performed | Pathologist | | | | | At | Signature | + + + + + + | Cholesterol | 156 | mg/dL | EXTERNAL | | | | | | LAB | | + + + + + + | Triglycerid | 161 (H) | mg/dL | EXTERNAL | | | es | | | LAB | | + + + + + + | HDL | 34 (L) | mg/dL | EXTERNAL | | | | | | LAB | | + + + + + + | LDL | 90Comment: Testing | mg/dL | EXTERNAL | | | Cholesterol | performed at [facility], [address] | | LAB | | | , | [address], | | | | | Calculated, | [place] [address] | | | | | External | | | | | + + + + + + + + | Specimen | + + | Blood specimen | | (specimen) | + + + +---------+ + + | Performing | Address | City/State/Zipcode | Phone Number | | Organization | | | | + +---------+ + + | EXTERNAL LAB | | | | + +---------+ + + Basic Metabolic Panel (01/21/2017 3:00 AM PDT) + + + + + + | Component | Value | Ref Range | Performed | Pathologist | | | | | At | Signature | + + + + + + | Na | 141 | 135 - 145 | EXTERNAL | | | | | mmol/L | LAB | | + + + + + + | K | 4.0 | 3.5 - 4.9 | EXTERNAL | | | | | mmol/L | LAB | | + + + + + + | Cl | 105 | 99 - 109 mmol/L | EXTERNAL | | | | | | LAB | | + + + + + + | CO2 | 29 | 23 - 32 mmol/L | EXTERNAL | | | | | | LAB | | + + + + + + | Anion Gap | 10 | 5 - 20 mmol/L | EXTERNAL | | | | | | LAB | | + + + + + + | Glucose, | 144 (H) | 65 - 99 mg/dL | EXTERNAL | | | Fasting | | | LAB | | + + + + + + | BUN | 11 | 8 - 25 mg/dL | EXTERNAL | | | | | | LAB | | + + + + + + | Creatinine | 0.85 | 0.70 - 1.30 | EXTERNAL | | | | | mg/dL | LAB | | + + + + + + | BUN/Creatin | 13 | | EXTERNAL | | | ine Ratio | | | LAB | | + + + + + + | Calcium | 7.9 (L) | 8.5 - 10.5 | EXTERNAL | | | | | mg/dL | LAB | | + + + + + + | Estimated | >60Comment: GFR <60: | mL/min/1.73m2 | EXTERNAL | | | GFR | CHRONIC KIDNEY DISEASE, | | LAB | | | | IF FOUND OVER A 3 MONTH | | | | | | PERIOD.GFR <15: KIDNEY | | | | | | FAILURE.FOR | | | | | | AMERICANS, MULTIPLY THE | | | | | | CALCULATED GFR BY | | | | | | 1.210.Testing performed | | | | | | at [facility] [place] [address] | | | | | | [facility];[place] [address] | | | | + + + + + + + + | Specimen | + + | Blood specimen | | (specimen) | + + + +---------+ + + | Performing | Address | City/State/Zipcode | Phone Number | | Organization | | | | + +---------+ + + | EXTERNAL LAB | | | | + +---------+ + + Protime INR (01/21/2017 12:22 AM PDT) + + + + + + | Component | Value | Ref Range | Performed | Pathologist | | | | | At | Signature | + + + + + + | INR | 1.1Comment: REFERENCE | | EXTERNAL | | | | RANGE:0.9 - 1.2 | | LAB | | | | NON-ANTICOAGULATED2.0 | | | | | | - 3.0 ALL OTHER | | | | | | THERAPEUTIC | | | | | | INDICATIONS2.5 - 3.5 | | | | | | MECHANICAL HEART VALVES, | | | | | | RECURRENT OR SYSTEMIC | | | | | | EMBOLISMTesting | | | | | | performed at [facility] | | | | | | [address];[place], [place] | | | | | | [address] | | | | + + + + + + + + | Specimen | + + | Blood specimen | | (specimen) | + + + +---------+ + + | Performing | Address | City/State/Zipcode | Phone Number | | Organization | | | | + +---------+ + + | EXTERNAL LAB | | | | + +---------+ + + External Lab: DENYS (01/21/2017 12:22 AM PDT) + + + + + + | Component | Value | Ref Range | Performed | Pathologist | | | | | At | Signature | + + + + + + | WBC | 11.31 (H) | 3.80 - 11.00 | EXTERNAL | | | | | K/uL | LAB | | + + + + + + | RED CELL | 4.63 | 4.20 - 5.70 | EXTERNAL | | | COUNT | | M/uL | LAB | | + + + + + + | Hgb | 14.1 | 13.2 - 17.0 | EXTERNAL | | | | | g/dL | LAB | | + + + + + + | Hematocrit, | 41.3 | 39.0 - 50.0 % | EXTERNAL | | | POC | | | LAB | | + + + + + + | MCV | 89.2 | 80.0 - 100.0 fl | EXTERNAL | | | | | | LAB | | + + + + + + | MCH | 30.4 | 27.0 - 34.0 pg | EXTERNAL | | | | | | LAB | | + + + + + + | MCHC | 34.1 | 32.0 - 35.5 | EXTERNAL | | | | | g/dL | LAB | | + + + + + + | RDW-CV | 45.1 | 37 - 53 fl | EXTERNAL | | | | | | LAB | | + + + + + + | Platelet | 179 | 150 - 400 K/uL | EXTERNAL | | | Count | | | LAB | | | Plasma | | | | | + + + + + + | MPV | 7.8 | fl | EXTERNAL | | | | | | LAB | | + + + + + + | Differentia | AUTOMATED | | EXTERNAL | | | l Type | | | LAB | | + + + + + + | % Segmented | 75.29 | % | EXTERNAL | | | | | | LAB | | | Neutrophils | | | | | + + + + + + | % | 16.76 | % | EXTERNAL | | | Lymphocytes | | | LAB | | + + + + + + | % Monocytes | 5.91 | % | EXTERNAL | | | | | | LAB | | + + + + + + | % | 1.25 | % | EXTERNAL | | | Eosinophils | | | LAB | | + + + + + + | % Basophils | 0.79 | % | EXTERNAL | | | | | | LAB | | + + + + + + | Absolute | 8.51 (H) | 1.90 - 7.40 | EXTERNAL | | | Segmented | | K/uL | LAB | | | Neutrophils | | | | | + + + + + + | Absolute | 1.90 | 1.00 - 3.90 | EXTERNAL | | | Lymphocytes | | K/uL | LAB | | + + + + + + | Absolute | 0.67 | 0.00 - 0.80 | EXTERNAL | | | Monocytes | | K/uL | LAB | | + + + + + + | Absolute | 0.14 | 0.00 - 0.50 | EXTERNAL | | | Eosinophils | | K/uL | LAB | | + + + + + + | Absolute | 0.09Comment: Testing | 0.00 - 0.10 | EXTERNAL | | | Basophils | performed at [facility] | LAB | | | | [address];[place] | | | | | | [address] | | | | + + + + + + + + | Specimen | + + | Blood specimen | | (specimen) | + + + +---------+ + + | Performing | Address | City/State/Zipcode | Phone Number | | Organization | | | | + +---------+ + + | EXTERNAL LAB | | | | + +---------+ + + Phosphorus (01/21/2017 12:22 AM PDT) + + + + + + | Component | Value | Ref Range | Performed | Pathologist | | | | | At | Signature | + + + + + + | PHOSPHORUS | 3.6Comment: Testing | 2.3 - 4.8 mg/dL | EXTERNAL | | | | performed at [facility] | | LAB | | | | [address];[place], [place] | | | | | | [address] | | | | + + + + + + + + | Specimen | + + | Blood specimen | | (specimen) | + + + +---------+ + + | Performing | Address | City/State/Zipcode | Phone Number | | Organization | | | | + +---------+ + + | EXTERNAL LAB | | | | + +---------+ + + B Type Natriuretic Peptide (01/21/2017 12:22 AM PDT) + + + + + + | Component | Value | Ref Range | Performed | Pathologist | | | | | At | Signature | + + + + + + | BNP | 113 (H)Comment: Testing | 0 - 100 pg/mL | EXTERNAL | | | | performed at [facility] | | LAB | | | | [address];[place], [place] | | | | | | [address] | | | | + + + + + + + + | Specimen | + + | Blood specimen | | (specimen) | + + + +---------+ + + | Performing | Address | City/State/Zipcode | Phone Number | | Organization | | | | + +---------+ + + | EXTERNAL LAB | | | | + +---------+ + + Magnesium (01/21/2017 12:22 AM PDT) + + + + + + | Component | Value | Ref Range | Performed | Pathologist | | | | | At | Signature | + + + + + + | Magnesium | 2.0Comment: Testing | 1.7 - 2.4 mg/dL | EXTERNAL | | | | performed at [facility] | | LAB | | | | [address];[place] | | | | | | [address] | | | | + + + + + + + + | Specimen | + + | Blood specimen | | (specimen) | + + + +---------+ + + | Performing | Address | City/State/Zipcode | Phone Number | | Organization | | | | + +---------+ + + | EXTERNAL LAB | | | | + +---------+ + + Comprehensive Metabolic Panel (01/21/2017 12:22 AM PDT) + + + + + + | Component | Value | Ref Range | Performed | Pathologist | | | | | At | Signature | + + + + + + | Na | 141 | 135 - 145 | EXTERNAL | | | | | mmol/L | LAB | | + + + + + + | K | 4.2 | 3.5 - 4.9 | EXTERNAL | | | | | mmol/L | LAB | | + + + + + + | Cl | 108 | 99 - 109 mmol/L | EXTERNAL | | | | | | LAB | | + + + + + + | CO2 | 31 | 23 - 32 mmol/L | EXTERNAL | | | | | | LAB | | + + + + + + | Anion Gap | 7 | 5 - 20 mmol/L | EXTERNAL | | | | | | LAB | | + + + + + + | Glucose, | 118 (H) | 65 - 99 mg/dL | EXTERNAL | | | Fasting | | | LAB | | + + + + + + | BUN | 12 | 8 - 25 mg/dL | EXTERNAL | | | | | | LAB | | + + + + + + | Creatinine | 0.89 | 0.70 - 1.30 | EXTERNAL | | | | | mg/dL | LAB | | + + + + + + | BUN/Creatin | 13 | | EXTERNAL | | | ine Ratio | | | LAB | | + + + + + + | Calcium | 7.9 (L) | 8.5 - 10.5 | EXTERNAL | | | | | mg/dL | LAB | | + + + + + + | Protein, | 6.1 (L) | 6.3 - 8.2 g/dL | EXTERNAL | | | Total | | | LAB | | + + + + + + | Albumin | 3.2 (L) | 3.3 - 4.8 g/dL | EXTERNAL | | | | | | LAB | | + + + + + + | Globulin | 2.9 | 1.3 - 4.9 g/dL | EXTERNAL | | | | | | LAB | | + + + + + + | A/G Ratio | 1.1 | 1.0 - 2.4 | EXTERNAL | | | | | | LAB | | + + + + + + | Bilirubin | 0.7 | 0.1 - 1.5 mg/dL | EXTERNAL | | | Total | | | LAB | | + + + + + + | ALP, | 57 | 35 - 115 U/L | EXTERNAL | | | External | | | LAB | | + + + + + + | AST | 14 | 10 - 45 U/L | EXTERNAL | | | | | | LAB | | + + + + + + | ALT | 21 | 10 - 65 U/L | EXTERNAL | | | | | | LAB | | + + + + + + | Estimated | >60Comment: GFR <60: | mL/min/1.73m2 | EXTERNAL | | | GFR | CHRONIC KIDNEY DISEASE, | | LAB | | | | IF FOUND OVER A 3 MONTH | | | | | | PERIOD.GFR <15: KIDNEY | | | | | | FAILURE.FOR | | | | | | AMERICANS, MULTIPLY THE | | | | | | CALCULATED GFR BY | | | | | | 1.210.Testing performed | | | | | | at [facility] [place] [address] | | | | | | Blvd;[place] [address] | | | | + + + + + + + + | Specimen | + + | Blood specimen | | (specimen) | + + + +---------+ + + | Performing | Address | City/State/Zipcode | Phone Number | | Organization | | | | + +---------+ + + | EXTERNAL LAB | | | | + +---------+ + + documented in this encounter Visit Diagnoses + + | Diagnosis | + + | Hypotension due to drugs Other iatrogenic hypotension | + + | Non-sustained ventricular tachycardia (HCC) Paroxysmal ventricular tachycardia | + + documented in this encounter
--- OUTSIDE RECORDS SUMMARY | ~2019-07-23 | XMS | Encounter Summary ---
Demographics + + + | Address | [address] | | | [place] [address] | + + + | Home Phone | | + + + | Preferred Language | Unknown | + + + | Marital Status | | + + + | Holiness Affiliation | Unknown | + + + | Race | Unknown | + + + | Ethnic Group | Unknown | + + + Author + + + | Author | [facility] | | | and [place] | + + + | Organization | [facility] | | | and [place] | + + + | Address | Unknown | + + + | Phone | Unavailable | + + + Support + + +---------+ + | Name | Relationship | Address | Phone | + + +---------+ + | Champ Velázquez | ECON | Unknown | | + + +---------+ + Care Team Providers + +------+ + | Care Dye Mixer Name | Role | Phone | + +------+ + PCP | Unavailable | + +------+ + Encounter Details +--------+ + + + + | Date | Type | Department | Care Team | Description | +--------+ + + + + | 01/27/ | Hospital | [facility] | Raiza Cote, | Cardiac pacemaker in | | 2009 - | Encounter | MEDICAL [facility]ENTER | MD [address] | situ | | | | CLINICAL DECISION | [address] [place] | | | 01/28/ | | [address] | [address] | | | 2009 | | [place], [place] | [phone] | | | | | [address] | | | | | | [phone] | | | +--------+ + + + [...] [address] | | | | | | [address] [place] | | | | | | [address] | | | | | | | [...] | | | | | [place] [address] | | | | | | [phone] | | | | | | | | +--------+ + + + + | 10/21/ | Office | Cardiology | Nav Foley, | | | 2019 | Visit | | MD [address] | | | | | | [place] [address] | | | | | | [phone] | | | | | | | | +--------+ + + + + documented as of this encounter Procedures + +--------+ + + + | Procedure Name | Priori | Date/Time | Associated Diagnosis | Comments | | | ty | | | | + +--------+ + + + | XR CHEST 2 VIEWS | Routin | 01/27/2010 | | Results for this | | | e | 7:03 PM | | procedure are in the | | | | PDT | | results section. | + +--------+ + + + | XR CHEST 1 VIEW | Routin | 01/27/2010 | | Results for this | | | e | 3:06 PM | | procedure are in the | | | | PDT | | results section. | + +--------+ + + + | CV EP PROCEDURE | Routin | 01/27/2010 | | Results for this | | | e | 2:17 PM | | procedure are in the | | | | PDT | | results section. | + +--------+ + + + documented in this encounter Results XR Chest 2 Vws (01/27/2010 7:03 PM PDT) + + | Specimen | + + | | + + + + + | Narrative | Performed At | + + + | [facility] [id number] Ph: | | | Patient Name: FRANCI VELÁZQUEZ Date of : | | | 1945 Medical Record: [id number] Account: [id number] | | | Exam Date/Time: 01/27/2010 17:00 Ordering | | | Physician: RAIZA COTE Order Detail: [id number] Exam Description: | | | XR CHEST 2 VIEW | | | | | | HISTORY: Status post ICD placement TECHNIQUE: PA and lateral | | | view of the chest dual energy technique. COMPARISON: Portable | | | view of the chest 1502 hrs same date. FINDINGS: The implanted to | | | cardiac fibrillator in the left pectoral region is unchanged. | | | Cardiac size appears mildly generous. Elevation of the left | | | hemidiaphragm with some adjacent atelectasis. No pneumothorax. No | | | obvious hilar or mediastinal adenopathy. Mild thoracic spondylosis | | | noted. IMPRESSION: 1. Postoperative changes of implanted for | | | later as previously reported. 2. No acute pulmonary disease 3. | | | chronic findings as described above. | | + + + + + | Procedure Note | + + | David Mckeon Conversion - 04/13/2019 7:29 PM PDT | | [facility] | | [facility] [address] | | | | | | Patient Name: FRANCI VELÁZQUEZ | | Date of : 1945 | | Medical Record: [id number] | | Account: [id number] | | | | | | Exam Date/Time: 01/27/2010 17:00 | | Ordering Physician: RAIZA COTE | | Order Detail: [id number] | | Exam Description: XR CHEST 2 VIEW | | | | HISTORY: | | Status post ICD placement | | | | TECHNIQUE: | | PA and lateral view of the chest dual energy technique. | | | | COMPARISON: | | Portable view of the chest 1502 hrs same date. | | | | FINDINGS: | | The implanted to cardiac fibrillator in the left pectoral region is | | unchanged. Cardiac size appears mildly generous. Elevation of the left | | hemidiaphragm with some adjacent atelectasis. No pneumothorax. No obvious | | hilar or mediastinal adenopathy. Mild thoracic spondylosis noted. | | | | IMPRESSION: | | 1. Postoperative changes of implanted for later as previously reported. | | 2. No acute pulmonary disease | | 3. chronic findings as described above. | | | | | + + XR Chest 1 Vw (01/27/2010 3:06 PM PDT) + + | Specimen | + + | | + + + + + | Narrative | Performed At | + + + | [facility] [address] Ph: | | | Patient Name: FRANCI VELÁZQUEZ Date of : | | | 1945 Medical Record: [id number] Account: [id number] | | | Exam Date/Time: 01/27/2010 14:54 Ordering | | | Physician: RAIZA COTE Order Detail: [id number] Exam Description: | | | XR CHEST 1 VIEW | | | | | | HISTORY: Confirmation of AICD TECHNIQUE: A single portable view | | | of the chest is obtained. COMPARISON: None. FINDINGS: | | | Endotracheal tube: Pacemaker: Is been placement of a the dual lead | | | pacemaker the generator is in the left pectoral region. The leads | | | appear intact there is no pneumothorax or pneumomediastinum. | | | Vascular catheter:: None heart size appears generous partially due to | | | the AP lordotic projection. The lungs are normally expanded. No | | | acute airspace disease, parenchymal nodule, mass, pleural effusion or | | | pneumothorax is noted. No hilar adenopathy is seen. Mild prominence | | | of the pulmonary vascular pattern likely due to the supine | | | positioning. The osseous structures are intact. IMPRESSION: | | | Transvenous pacemaker as described. Other less acute findings as | | | described above, it is clinically suspect upright PA and lateral view | | | of the chest would be recommended. These findings were relayed to | | | the referring at 1525 hrs . | | + + + + + | Procedure Note | + + | David Mckeon Conversion - 04/13/2019 7:29 PM PDT | | [facility] | | [facility] [address] | | | | | | Patient Name: FRANCI VELÁZQUEZ | | Date of : 1945 | | Medical Record: [id number] | | Account: [id number] | | | | | | Exam Date/Time: 01/27/2010 14:54 | | Ordering Physician: RAIZA COTE | | Order Detail: [id number] | | Exam Description: XR CHEST 1 VIEW | | | | HISTORY: | | Confirmation of AICD | | | | TECHNIQUE: | | A single portable view of the chest is obtained. | | | | COMPARISON: | | None. | | | | FINDINGS: | | Endotracheal tube: | | Pacemaker: Is been placement of a the dual lead pacemaker the generator is | | in the left pectoral region. The leads appear intact there is no | | pneumothorax or pneumomediastinum. | | Vascular catheter:: None | | heart size appears generous partially due to the AP lordotic projection. | | The lungs are normally expanded. | | No acute airspace disease, parenchymal nodule, mass, pleural effusion or | | pneumothorax is noted. No hilar adenopathy is seen. Mild prominence of the | | pulmonary vascular pattern likely due to the supine positioning. | | The osseous structures are intact. | | | | IMPRESSION: | | Transvenous pacemaker as described. | | Other less acute findings as described above, it is clinically suspect | | upright PA and lateral view of the chest would be recommended. These | | findings were relayed to the referring at 1525 hrs | | . | | | | | + + CV EP PROCEDURE (01/27/2010 2:17 PM PDT) + + | Specimen | + + | | + + + + + | Narrative | Performed At | + + + | [id number] [facility] | | | [facility] [address] | | | , | | | CARDIOLOGY Patient Name: FRANCI VELÁZQUEZ Date of : | | | 1945 Medical Record: [id number] Account: [id number] | | | [facility] [id number]/ Exam Date/Time: 01/27/2010 | | | 01:00 P Ordering Provider: RAIZA COTE Order Detail: [id number] | | | / / HCL Exam Description: CCL INSERTION ICD LEAD(S)+GENERAT | | | | | | PROCEDURES 1. Implantation of implantable cardioverter/defibrillator. | | | 2. Defibrillation threshold testing. I would like thank | | | Thelma Suresh for allowing me to participate in the care of this | | | gentleman. INDICATIONS 1. Nonischemic cardiomyopathy with | | | ejection fraction of 35% ( indication). 2. Left bundle | | | branch block. 3. 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 | | | DESCRIPTION OF PROCEDURE Implantation of DINKEY DISPATCHER/ICD was recommended. | | | Informed consent was obtained. The procedure was performed in the | | | fasting state. Sedation was administered by anesthesia. A skin | | | incision was made, and a subcutaneous pocket was formed. We then | | | performed 2 axillary punctures over the first rib guided by | | | venogram. Leads were placed under fluoroscopy. The right | | | ventricular lead is a Medtronic 6947, length is 65 cm, serial number | | | is [id number]. We found a suitable position in the right ventricular | | | apex and extended the helix. In that location, R wave was at 10 to 15 | | | mV, electrogram was wide, pacing impedance was 1300 ohms and came | | | down to 1000 ohms. Pacing threshold was 1.2 V and came down to 0.8 V. | | | There was no phrenic stimulation at 10 V. We then cannulated the | | | coronary sinus using a combination of extended hook catheter and a | | | Glidewire. We then performed nonocclusive venograms of the vessel. We | | | saw only one mid lateral branch. It had a shallow takeoff. We | | | cannulated this branch with an angioplasty wire. This branch was | | | quite straight, so we chose to use a StarFix lead for better | | | fixation. We advanced this into the vessel to the point of resistance | | | and extended the lobes. In that location, there was no phrenic | | | stimulation at 10 V, and pacing threshold was 0.5 V at 0.5 msec. | | | Pacing impedance was 660 ohms. We sutured the fixation mechanism. | | | The left ventricular lead is a Medtronic 4195, serial number | | | [id number]. The right atrial lead is a Medtronic 5076, length | | | is 52 cm, serial number is [id number]. We found a suitable position | | | in the right atrial appendage and extended the helix. In that | | | location, sensed P wave was 2 mV, electrogram was wide, pacing | | | impedance was 600 ohms and stable, pacing threshold was 1.1 V and | | | came down to 0.8 V. There was no phrenic stimulation at maximal | | | output. We sutured the lead in place. We then removed the LV | | | delivery system using the [employer] universal slitter. | | | Fluoroscopically, lead position remained stable. In [place] projection, | | | we adjusted the amount of redundancy on the lead and sutured it in | | | place. We then removed wires and stylets. We irrigated the pocket. | | | We then took the device which is a [employer] F558MVA, serial number | | | [id number]. We connected all 3 leads to the device and verified | | | appropriate connections. We then proceeded with DFT testing. | | | Additional sedation was administered by anesthesia. Ventricular | | | fibrillation was induced by shock on T. With ventricular sensitivity | | | programmed to the least sensitive setting, it was promptly | | | recognized. A 25 J shock was delivered in B to AX polarity and | | | terminated it. We then closed the pocket in 3 layers. We | | | programmed the device with 2 zones, VT between 176 and 214 beats per | | | minute. Therapies: There are 4 ATPs followed by cardioversion. | | | Therapies in the VF zone are ATP during charging followed by 35 J | | | shocks. Programmed juancho mode to DDD with nominal AV delays in V to | | | V, LV to RV delays of 20 msec. Read by RAIZA COTE MD | | | 01/27/2010 02:25 P Electronically Signed by RAIZA COTE MD | | | 02/08/2010 09:43 A P P | | | EDMUND/[id number]/[id number]/cg | | + + + + + | Procedure Note | + + | David Mckeon Conversion - 04/13/2019 7:29 PM PDT | | [id number] | | [facility] | | [facility] [address] | | , | | CARDIOLOGY | | | | Patient Name: FRANCI VELÁZQUEZ | | Date of : 1945 | | Medical Record: [id number] | | Account: [id number] | | OPS/CDU [address]/ | | | | | | Exam Date/Time: 01/27/2010 01:00 P | | Ordering Provider: RAIZA COTE | | Order Detail: [id number] / / HCL | | Exam Description: CCL INSERTION ICD LEAD(S)+GENERAT | | | | PROCEDURES | | 1. Implantation of implantable cardioverter/defibrillator. | | 2. Defibrillation threshold testing. | | | | I would like thank Dr. Thelma Suresh for allowing me to participate in the | | care of this gentleman. | | | | INDICATIONS | | 1. Nonischemic cardiomyopathy with ejection fraction of 35% ( | | indication). | | 2. Left bundle branch block. | | 3. Symptoms of fatigue and dyspnea on exertion consistent with class 2 | | to 3 congestive heart failure. | | | | DESCRIPTION OF PROCEDURE | | Implantation of DINKEY DISPATCHER/ICD was recommended. Informed consent was obtained. | | The procedure was performed in the fasting state. Sedation was | | administered by anesthesia. | | | | A skin incision was made, and a subcutaneous pocket was formed. We then | | performed 2 axillary punctures over the first rib guided by venogram. | | Leads were placed under fluoroscopy. | | | | The right ventricular lead is a Medtronic 6947, length is 65 cm, serial | | number is [id number]. We found a suitable position in the right | | ventricular apex and extended the helix. In that location, R wave was at | | 10 to 15 mV, electrogram was wide, pacing impedance was 1300 ohms and | | came down to 1000 ohms. Pacing threshold was 1.2 V and came down to 0.8 | | V. There was no phrenic stimulation at 10 V. | | | | We then cannulated the coronary sinus using a combination of extended | | hook catheter and a Glidewire. We then performed nonocclusive venograms | | of the vessel. We saw only one mid lateral branch. It had a shallow | | takeoff. We cannulated this branch with an angioplasty wire. This branch | | was quite straight, so we chose to use a StarFix lead for better | | fixation. We advanced this into the vessel to the point of resistance | | and extended the lobes. In that location, there was no phrenic | | stimulation at 10 V, and pacing threshold was 0.5 V at 0.5 msec. Pacing | | impedance was 660 ohms. We sutured the fixation mechanism. | | | | The left ventricular lead is a Medtronic 4195, serial number [id number]. | | | | | | The right atrial lead is a Medtronic 5076, length is 52 cm, serial | | number is [id number]. We found a suitable position in the right atrial | | appendage and extended the helix. In that location, sensed P wave was 2 | | mV, electrogram was wide, pacing impedance was 600 ohms and stable, | | pacing threshold was 1.1 V and came down to 0.8 V. There was no phrenic | | stimulation at maximal output. We sutured the lead in place. | | | | We then removed the LV delivery system using the Medtronic universal | | slitter. Fluoroscopically, lead position remained stable. In [place] | | projection, we adjusted the amount of redundancy on the lead and sutured | | it in place. | | | | We then removed wires and stylets. We irrigated the pocket. We then took | | the device which is a [employer] [id number], serial number [id number]. We | | connected all 3 leads to the device and verified appropriate | | connections. | | | | We then proceeded with DFT testing. Additional sedation was administered | | by anesthesia. Ventricular fibrillation was induced by shock on T. With | | ventricular sensitivity programmed to the least sensitive setting, it | | was promptly recognized. A 25 J shock was delivered in B to AX polarity | | and terminated it. | | | | We then closed the pocket in 3 layers. We programmed the device with 2 | | zones, VT between 176 and 214 beats per minute. Therapies: There are 4 | | ATPs followed by cardioversion. Therapies in the VF zone are ATP during | | charging followed by 35 J shocks. Programmed juancho mode to DDD with | | nominal AV delays in V to V, LV to RV delays of 20 msec. | | | | Read by | | RAIZA COTE MD 01/27/2010 02:25 P | | Electronically Signed by | | RAIZA COTE MD 02/08/2010 09:43 A | | P | | P | | EDMUND/mehul/[id number]/cg | + + documented in this encounter Visit Diagnoses + + | Diagnosis | + + | Cardiac pacemaker in situ | + + documented in this encounter"
--- OUTSIDE RECORDS SUMMARY | ~2019-07-23 | XMS | Encounter Summary ---
Demographics + + + | Address | [address] | | | [place] [address] | + + + | Home Phone | | + + + | Preferred Language | Unknown | + + + | Marital Status | | + + + | Church Affiliation | Unknown | + + + | Race | Unknown | + + + | Ethnic Group | Unknown | + + + Author + + + | Author | [facility] | | | and [place] | + + + | Organization | [facility] | | | and [...] Team Providers + +------+ + | Care Desizing Pad Operator Name | Role | Phone | + +------+ + | Carla Murphy | PCP | | | PA-C | | | + +------+ + Encounter Details +--------+ + + + + | Date | Type | Department | Care Team | Description | +--------+ + + + + | 03/25/ | Hospital | [facility] | Conversion | Unknown cause of | | 2016 | Encounter | CONVERSION [address] | Transaction, | injury | | | | [address] | Provider Unknown | | | | | [place], [place] | [phone] | | | | | [phone] | (Fax) | | | | | [phone] | | | +--------+ + + + [...] + + documented as of this encounter Medications at Time of Discharge + + [...] + + + +---------+ + + | Respiratory | Mr. Abraham has | 1 each | 99 | 12/14/19 | | | Therapy Supplies | been advised to walk | | | 16 | 7 | | MISC | to improve his | | | | | | | fitness and help | | | | | | | with his lung | | | | | | | disease by his | | | | | | | pulmonary physician. | | | | | + + + +---------+ + + | spironolactone | Take 25 mg by mouth | | 0 | | | | (ALDACTONE) 25 mg | Daily. 1/2 tab daily | | | | 9 | | tablet | | | | | | + + + +---------+ + + | tiotropium | Inhale contents of | 30 | 5 | 10/22/19 | | | (SKIP GILBERTALER) | one capsule once | capsule | [...] [place] | | | | | | [address] | | | | | | | | +--------+ + + + + | 07/30/ | Procedure | Cardiology | | | | 2018 | visit | | | | +--------+ + + + + | 09/01/ | Office | Cardiology | Poppy Rodriguez | | | 2019 | Visit | | [address] | | | | | | [address] | | | | | | [place] [address] | | | | | | [phone] | | | | | | | | +--------+ + + + + | 10/21/ | Office | Cardiology | Nav Foley, | | | 2019 | Visit | | [address] | | | | | | [place] [address] | | | | | | [phone] | | | | | | | | +--------+ + + + + documented as of this encounter Procedures + +--------+ + + + | Procedure Name | Priori | Date/Time | Associated Diagnosis | Comments | | | ty | | | | + +--------+ + + + | XR CHEST 1 VIEW | Routin | 08/26/2015 | | Results for this | | | e | 8:01 AM | | procedure are in the | | | | PST | | results section. | + +--------+ + + + documented in this encounter Results XR Chest 1 Vw (08/26/2015 8:01 AM PST) + + | Specimen | + + | | + + + + + | Narrative | Performed At | + + + | This is a non-reportable procedure without a radiologist report and | | | is used for image storage only | | + + + + + | Procedure Note | + + | David Mckeon Conversion - 04/03/2019 1:22 PM PDT This is a non-reportable procedure | | without a radiologist report and isused for image storage only | + + documented in this encounter Visit Diagnoses + + | Diagnosis | + + | Unknown cause of injury Unspecified accident | + + documented in this encounter"
--- OUTSIDE RECORDS SUMMARY | ~2019-07-23 | XMS | Encounter Summary ---
Demographics + + + | Address | [address] | | | [place] [address] | + + + | Home Phone | | + + + | Preferred Language | Unknown | + + + | Marital Status | | + + + | Buddhism Affiliation | Unknown | + + + [...] Team Providers + +------+ + | Care Manager Cardiovascular Name | Role | Phone | + +------+ + | Carla Murphy | PCP | | | PA-C | | | + +------+ + Reason for Visit + + + | Reason | Comments | + + + | Cardiac Problem | | + + + Encounter Details +--------+ + + + + | Date | Type | Department | Care Team | Description | +--------+ + + + + | 07/02/ | Telephone | [facility] | Constantin Chavez, | Cardiac Problem | | 2019 | | CARDIOLOGY [place] | [address] | | | | | [address] | [place], [place] | | | | | [place], [place] | [address] | | | | | [address] | | | | | | [phone] | | | +--------+ + + + [...] | 2018 | Visit | | [address] | | | | | | [place] | | | | | | [address] | | | | | | | | +--------+ + + + + | 07/30/ | Procedure | Cardiology | | | | 2018 | visit | | | | +--------+ + + + + | 09/01/ | Office | Cardiology | Poppy Rodriguez | | | 2019 | Visit | | [address] | | | | | | [address] | | | | | | [place] [address] | | | | | | [phone] | | | | | | | | +--------+ + + + + | 10/21/ | Office | Cardiology | Nav Foley, | | | 2019 | Visit | | [address] | | | | | | [place] [address] | | | | | | [phone] | | | | | | | | +--------+ + + + + documented as of this encounter Visit Diagnoses Not on filedocumented in this encounter"
--- OUTSIDE RECORDS SUMMARY | ~2019-07-23 | XMS | Encounter Summary ---
Demographics + + + | Address | [address] | | | [place] [address] | + + + | Home Phone | | + + + | Preferred Language | Unknown | + + + | Marital Status | | + + + | Catholic Affiliation | Unknown | + + [...] Team Providers + +------+ + | Care Annealer Name | Role | Phone | + +------+ + | Carla Murphy | PCP | | | PA-C | | | + +------+ + Encounter Details +--------+ + + + + | Date | Type | Department | Care Team | Description | +--------+ + + + + | 06/18/ | Procedure | [facility] | Nav Foley, | Palpitations | | 2019 | visit | CARDIOLOGY [place] | [address] | | | | | [address] | [place] [address] | | | | | [place], [place] | [phone] | | | | | [address] | | | | | | [phone] | | | +--------+ + + + [...] + documented as of this encounter Progress Sharron Keating, Technologist - 06/18/2019 3:00 PM PDT30 day telemetry 36394 cardiac monit or placed on patient. EOB/Billing information discussed. Instructions given and understood. [facility] or [facility] questions. documented in this encounter Plan of Treatment [...] [place] | | | | | | [address] | | | | | | | [...] | | | | | [place] [address] | | | | | | [phone] | | | | | | | | +--------+ + + + + | 10/21/ | Office | Cardiology | Nav Foley, | | | 2019 | Visit | | MD [address] | | | | | | [place] [address] | | | | | | [phone] | | | | | | | | +--------+ + + + + documented as of this encounter Visit Diagnoses + + | Diagnosis | + + | Palpitations | + + documented in this encounter"
--- OUTSIDE RECORDS SUMMARY | ~2019-07-23 | XMS | Encounter Summary ---
Demographics + + + | Address | [address] | | | [place] [address] | + + + | Home Phone | | + + + | Preferred Language | Unknown | + + + | Marital Status | | + + + | Quaker Affiliation | Unknown | + + + | Race | Unknown | + + + | Ethnic Group | Unknown | + + + Author + + + | Author | [facility] | | | and [place] | + + + | Organization | [facility] | | | [...] Providers + +------+ + | Care Manager Battery Name | Role | Phone | + +------+ + | Carla Murphy | PCP | | | PA-C | | | + +------+ + Reason for Visit +---------+ + | Reason | Comments | +---------+ + | Results | Sniff test | +---------+ + Encounter Details +--------+ + + + + | Date | Type | Department | Care Team | Description | +--------+ + + + + | 11/07/ | Telephone | [facility] | Adon[place]stein, | Results (Sniff test) | | 2016 | | PULMONARY [address] | Sailaja Chiang MD | | | | | [place], | | | | | | [place] [address] | | | | | | [phone] | | | +--------+ + + + [...] [place] | | | | | | [address] | | | | | | | [...] | | | | | | [place] [address] | | | | | | [phone] | | | | | | | | +--------+ + + + + | 10/21/ | Office | Cardiology | Nav Foley, | | | 2019 | Visit | | [address] | | | | | | [place] [address] | | | | | | [phone] | | | | | | | | +--------+ + + + + documented as of this encounter Visit Diagnoses Not on filedocumented in this encounter"
--- OUTSIDE RECORDS SUMMARY | ~2019-07-23 | XMS | Encounter Summary ---
Demographics + + + | Address | [address] | | | [place] [address] | + + + | Home Phone [...] | + + +---------+ + | Champ Abrhaam | ECON | Unknown | | + + +---------+ + Care Team Providers + +------+ + | Care Livestock Counter Name | Role | Phone | + [...] | PULMONARY [address] | RN | ([facility]) | | | | [place], | | | | | | [place] [address] | | | | | | [phone] | | | +--------+ + + + [...] | | | | | | [address] | | | | | | [id number] | | | | | | | [...] F | | | | | | [place] [address] | | | | | | [phone] | | | | | | | | +--------+ + + + + | 10/21/ | Office | Cardiology | Nav Foley, | | | 2019 | Visit | | [address] | | | | | | [place] [address] | | | | | | [phone] | | | | | | | | +--------+ + + + + documented as of this encounter Visit Diagnoses + + | Diagnosis | + + | Panlobular emphysema (HCC) Other emphysema | + + documented in this encounter"
--- OUTSIDE RECORDS SUMMARY | ~2019-07-23 | XMS | Encounter Summary ---
Demographics + + + | Address | [address] | | | [place] [address] | + + + | Home Phone | | + + + | Preferred Language | Unknown | + + + | Marital Status | | + + + | Scientologist Affiliation | Unknown | + + + | Race | Unknown | + + + | Ethnic Group | Unknown | + + + Author + + + | Author | [facility] | | | and [place] | + + + | Organization | [facility] | | | [...] Team Providers + +------+ + | Care Crm Technical Lead Name | Role | Phone | + +------+ + | Carla Murphy | PCP | | | PA-Felipa | | | + +------+ + Encounter Details +--------+ + + + + | Date | Type | Department | Care Team | Description | +--------+ + + + + | 09/15/ | Abstract | [facility] | Lyn, | | | 2015 | | PULMONARY [address] | Sailaja Chiang MD | | | | | [place], | | | | | | [place] [address] | | | | | | [phone] | | | +--------+ + + + [...] | | | | | [place] | | | | | | [address] | | | | | | | | +--------+ + + + + | 07/30/ | Procedure | Cardiology | | | | 2018 | visit | | | | +--------+ + + + + | 09/01/ | Office | Cardiology | Poppy Rodriguez | | | 2019 | Visit | | [address] | | | | | | [address] | | | | | | [place] [address] | | | | | | [phone] | | | | | | | | +--------+ + + + + | 10/21/ | Office | Cardiology | NormaNav moreno, | | | 2019 | Visit | | [address] | | | | | | [place] [address] | | | | | | [phone] | | | | | | | | +--------+ + + + + documented as of this encounter Procedures + +--------+ + + + | Procedure Name | Priori | Date/Time | Associated Diagnosis | Comments | | | ty | | | | + +--------+ + + + | EXTERNAL LAB: | Routin | 08/26/2015 | | Results for this | | TROPONIN T | e | | | procedure are in the | | | | | | results section. | + +--------+ + + + | EXTERNAL LAB: B TYPE | Routin | 08/26/2015 | | Results for this | | NATURETIC PEPTIDE | e | | | procedure are in the | | | | | | results section. | + +--------+ + + + | EXTERNAL LAB: BUN | Routin | 08/13/2015 | | Results for this | | | e | | | procedure are in the | | | | | | results section. | + +--------+ + + + | EXTERNAL LAB: | Routin | 08/13/2015 | | Results for this | | GLUCOSE | e | | | procedure are in the | | | | | | results section. | + +--------+ + + + | EXTERNAL LAB: | Routin | 08/13/2015 | | Results for this | | TROPONIN T | e | | | procedure are in the | | | | | | results section. | + +--------+ + + + | EXTERNAL LAB: ALT | Routin | 08/13/2015 | | Results for this | | | e | | | procedure are in the | | | | | | results section. | + +--------+ + + + | EXTERNAL LAB: AST | Routin | 08/13/2015 | | Results for this | | | e | | | procedure are in the | | | | | | results section. | + +--------+ + + + | EXTERNAL LAB: | Routin | 08/13/2015 | | Results for this | | ALKALINE PHOSPHATASE | e | | | procedure are in the | | | | | | results section. | + +--------+ + + + | EXTERNAL LAB: | Routin | 08/13/2015 | | Results for this | | BILIRUBIN, TOTAL | e | | | procedure are in the | | | | | | results section. | + +--------+ + + + | EXTERNAL LAB: | Routin | 08/13/2015 | | Results for this | | ALBUMIN | e | | | procedure are in the | | | | | | results section. | + +--------+ + + + | EXTERNAL LAB: | Routin | 08/13/2015 | | Results for this | | PROTEIN, TOTAL | e | | | procedure are in the | | | | | | results section. | + +--------+ + + + | EXTERNAL LAB: | Routin | 08/13/2015 | | Results for this | | CALCIUM | e | | | procedure are in the | | | | | | results section. | + +--------+ + + + | EXTERNAL LAB: CARBON | Routin | 08/13/2015 | | Results for this | | DIOXIDE | e | | | procedure are in the | | | | | | results section. | + +--------+ + + + | EXTERNAL LAB: | Routin | 08/13/2015 | | Results for this | | CHLORIDE | e | | | procedure are in the | | | | | | results section. | + +--------+ + + + | EXTERNAL LAB: | Routin | 08/13/2015 | | Results for this | | POTASSIUM | e | | | procedure are in the | | | | | | results section. | + +--------+ + + + | EXTERNAL LAB: SODIUM | Routin | 08/13/2015 | | Results for this | | | e | | | procedure are in the | | | | | | results section. | + +--------+ + + + | EXTERNAL LAB: CBC | Routin | 08/13/2015 | | Results for this | | | e | | | procedure are in the | | | | | | results section. | + +--------+ + + + | EXTERNAL LAB: EGFR | Routin | 08/13/2015 | | Results for this | | | e | | | procedure are in the | | | | | | results section. | + +--------+ + + + | EXTERNAL LAB: | Routin | 08/13/2015 | | Results for this | | CREATININE | e | | | procedure are in the | | | | | | results section. | + +--------+ + + + | D-DIMER | Routin | 08/13/2015 | | Results for this | | | e | | | procedure are in the | | | | | | results section. | + +--------+ + + + | CBC WITH | Routin | 08/13/2015 | | Results for this | | DIFFERENTIAL | e | | | procedure are in the | | | | | | results section. | + +--------+ + + + | LACTIC ACID | Routin | 08/13/2015 | | Results for this | | | e | | | procedure are in the | | | | | | results section. | + +--------+ + + + | COMPREHENSIVE | Routin | 08/13/2015 | | Results for this | | METABOLIC PANEL | e | | | procedure are in the | | | | | | results section. | + +--------+ + + + documented in this encounter Results External Lab: Troponin T (08/26/2015) + +--------+ + + + | Component | Value | Ref Range | Performed | Pathologist | | | | | At | Signature | + +--------+ + + + | Troponin T, | <0.010 | 0.01 | EXTERNAL | | | External | | | LAB | | + +--------+ + + + + + | Resulting Agency Comment | + + | [facility] | + + + +---------+ + + | Performing | Address | City/State/Zipcode | Phone Number | | Organization | | | | + +---------+ + + | EXTERNAL LAB | | | | + +---------+ + + External Lab: B Type Naturetic Peptide (08/26/2015) + +-------+ + + + | Component | Value | Ref Range | Performed | Pathologist | | | | | At | Signature | + +-------+ + + + | B-Type | 30 | 0 - 100 | EXTERNAL | | | Naturetic | | | LAB | | | Peptide, | | | | | | External | | | | | + +-------+ + + + + + | Specimen | + + | Blood specimen | | (specimen) | + + + + | Resulting Agency Comment | + + | [facility] | + + + +---------+ + + | Performing | Address | City/State/Zipcode | Phone Number | | Organization | | | | + +---------+ + + | EXTERNAL LAB | | | | + +---------+ + + Lactic Acid (08/13/2015) + +-------+ + + + | Component | Value | Ref Range | Performed | Pathologist | | | | | At | Signature | + +-------+ + + + | Lactate, | 1.3 | 0.5 - 2.2 | [facility] | | | Serum | | mmol/L | [facility] | | | | | | [facility] | | | | | | C[facility] - | | | | | | LABORATORY | | + +-------+ + + + + + | Specimen | + + | Blood specimen | | (specimen) | + + + + + + + | Performing | Address | City/State/Zipcode | Phone Number | | Organization | | | | + + + + + | [facility] | [address] | [place] | [phone] | | [facility] | | [address] | | | - LABORATORY | | | | + + + + + Comprehensive Metabolic Panel (08/13/2015) + +-------+ + + + | Component | Value | Ref Range | Performed | Pathologist | | | | | At | Signature | + +-------+ + + + | Anion Gap | 11 | 7 - 21 mmol/L | [facility] | | | | | | [facility] | | | | | | [facility]ICAL | | | | | | CENTER - | | | | | | LABORATORY | | + +-------+ + + + | Bun/Creatin | 16.5 | 6.0 - 28.6 | [facility] | | | ine | | | [facility] | | | | | | [facility]ICAL | | | | | | CENTER - | | | | | | LABORATORY | | + +-------+ + + + | Globulin | 2.2 | 1.8 - 3.5 | [facility] | | | | | | [facility] | | | | | | [facility]ICAL | | | | | | CENTER - | | | | | | LABORATORY | | + +-------+ + + + | Albumin/Jenni | 1.7 | 1.1 - 2.4 | [facility] | | | bulin Ratio | | | [facility] | | | | | | MEDICAL | | | | | | CENTER - | | | | | | LABORATORY | | + +-------+ + + + + + | Specimen | + + | Blood specimen | | (specimen) | + + + + + + + | Performing | Address | City/State/Zipcode | Phone Number | | Organization | | | | + + + + + | [facility] | [address] | [place] | [phone] | | [facility] | | [address] | | | - LABORATORY | | | | + + + + + CBC with Differential (08/13/2015) + +-------+ + + + | Component | Value | Ref Range | Performed | Pathologist | | | | | At | Signature | + +-------+ + + + | MCH | 30.0 | 26.0 - 33.0 pg | | | + +-------+ + + + | MCHC | 32.0 | 31.0 - 37.0 % | | | + +-------+ + + + | % Basophils | 2.0 | 0.0 - 2.0 % | | | + +-------+ + + + + + | Specimen | + + | Blood specimen | | (specimen) | + + D-Dimer (08/13/2015) + +---------+ + + + | Component | Value | Ref Range | Performed | Pathologist | | | | | At | Signature | + +---------+ + + + | D-DIMER, | 697 (A) | 100 D-DU ng/ml | [facility] | | | QUANTIT[facility] | | | [facility] | | | E | | | MEDICAL | | | | | | CENTER - | | | | | | LABORATORY | | + +---------+ + + + + + | Specimen | + + | Blood specimen | | (specimen) | + + + + + + + | Performing | Address | City/State/Zipcode | Phone Number | | Organization | | | | + + + + + | [facility] | [address] | [place] | [phone] | | [facility] | | [address] | | | - LABORATORY | | | | + + + + + External Lab: Troponin T (08/13/2015) + +--------+ + + + | Component | Value | Ref Range | Performed | Pathologist | | | | | At | Signature | + +--------+ + + + | Troponin T, | <0.010 | 0.01 | EXTERNAL | | | External | | | LAB | | + +--------+ + + + + + | Resulting Agency Comment | + + | [facility] | + + + +---------+ + + | Performing | Address | City/State/Zipcode | Phone Number | | Organization | | | | + +---------+ + + | EXTERNAL LAB | | | | + +---------+ + + External Lab: CBC (08/13/2015) + +---------+ + + + | Component | Value | Ref Range | Performed | Pathologist | | | | | At | Signature | + +---------+ + + + | WBC, | 9.0 | 4.5 - 11 | EXTERNAL | | | External | | | LAB | | + +---------+ + + + | HGB, | 15 | 13.5 - 18 | EXTERNAL | | | External | | | LAB | | + +---------+ + + + | HCT, | 46.8 | 41 - 50 | EXTERNAL | | | External | | | LAB | | + +---------+ + + + | PLT, | 197 | 140 - 440 | EXTERNAL | | | External | | | LAB | | + +---------+ + + + | Neutrophils | 78.8 | 39 - 80 | EXTERNAL | | | %, | | | LAB | | | External | | | | | + +---------+ + + + | Lymphocytes | 9.1 (A) | 24 - 44 | EXTERNAL | | | %, | | | LAB | | | External | | | | | + +---------+ + + + | Monocytes | 8.5 | 0 - 12 | EXTERNAL | | | %, External | | | LAB | | + +---------+ + + + | Eosinophils | 1.6 | 0 - 6 | EXTERNAL | | | %, | | | LAB | | | External | | | | | + +---------+ + + + | RBC, | 5.07 | 4.3 - 5.7 | EXTERNAL | | | External | | | LAB | | + +---------+ + + + | MCV, | 92 | 81 - 99 | EXTERNAL | | | External | | | LAB | | + +---------+ + + + | RDW, | 13.1 | 10.5 - 15 | EXTERNAL | | | External | | | LAB | | + +---------+ + + + + + | Resulting Agency Comment | + + | [facility] | + + + +---------+ + + | Performing | Address | City/State/Zipcode | Phone Number | | Organization | | | | + +---------+ + + | EXTERNAL LAB | | | | + +---------+ + + External Lab: BUN (08/13/2015) + +-------+ + + + | Component | Value | Ref Range | Performed | Pathologist | | | | | At | Signature | + +-------+ + + + | BUN, | 15 | 6 - 23 | EXTERNAL | | | External | | | LAB | | + +-------+ + + + + + | Resulting Agency Comment | + + | [facility] | + + + +---------+ + + | Performing | Address | City/State/Zipcode | Phone Number | | Organization | | | | + +---------+ + + | EXTERNAL LAB | | | | + +---------+ + + External Lab: Glucose (08/13/2015) + +---------+ + + + | Component | Value | Ref Range | Performed | Pathologist | | | | | At | Signature | + +---------+ + + + | Glucose, | 135 (A) | 70 - 100 | EXTERNAL | | | External | | | LAB | | + +---------+ + + + + + | Resulting Agency Comment | + + | [facility] | + + + +---------+ + + | Performing | Address | City/State/Zipcode | Phone Number | | Organization | | | | + +---------+ + + | EXTERNAL LAB | | | | + +---------+ + + External Lab: ALT (08/13/2015) + +-------+ + + + | Component | Value | Ref Range | Performed | Pathologist | | | | | At | Signature | + +-------+ + + + | ALT, | 20 | 7 - 52 | EXTERNAL | | | External | | | LAB | | + +-------+ + + + + + | Resulting Agency Comment | + + | [facility] | + + + +---------+ + + | Performing | Address | City/State/Zipcode | Phone Number | | Organization | | | | + +---------+ + + | EXTERNAL LAB | | | | + +---------+ + + External Lab: AST (08/13/2015) + +-------+ + + + | Component | Value | Ref Range | Performed | Pathologist | | | | | At | Signature | + +-------+ + + + | AST, | 16 | 13 - 39 | EXTERNAL | | | External | | | LAB | | + +-------+ + + + + + | Resulting Agency Comment | + + | [facility] | + + + +---------+ + + | Performing | Address | City/State/Zipcode | Phone Number | | Organization | | | | + +---------+ + + | EXTERNAL LAB | | | | + +---------+ + + External Lab: Alkaline Phosphatase (08/13/2015) + +-------+ + + + | Component | Value | Ref Range | Performed | Pathologist | | | | | At | Signature | + +-------+ + + + | ALP, | 56 | 30 - 128 | EXTERNAL | | | External | | | LAB | | + +-------+ + + + + + | Resulting Agency Comment | + + | [facility] | + + + +---------+ + + | Performing | Address | City/State/Zipcode | Phone Number | | Organization | | | | + +---------+ + + | EXTERNAL LAB | | | | + +---------+ + + External Lab: Bilirubin, Total (08/13/2015) + +---------+ + + + | Component | Value | Ref Range | Performed | Pathologist | | | | | At | Signature | + +---------+ + + + | Bilirubin, | 1.8 (A) | 0 - 1.2 | EXTERNAL | | | Total, | | | LAB | | | External | | | | | + +---------+ + + + + + | Resulting Agency Comment | + + | [facility] | + + + +---------+ + + | Performing | Address | City/State/Zipcode | Phone Number | | Organization | | | | + +---------+ + + | EXTERNAL LAB | | | | + +---------+ + + External Lab: Albumin (08/13/2015) + +-------+ + + + | Component | Value | Ref Range | Performed | Pathologist | | | | | At | Signature | + +-------+ + + + | Albumin, | 3.8 | 3.5 - 5 | EXTERNAL | | | External | | | LAB | | + +-------+ + + + + + | Resulting Agency Comment | + + | [facility] | + + + +---------+ + + | Performing | Address | City/State/Zipcode | Phone Number | | Organization | | | | + +---------+ + + | EXTERNAL LAB | | | | + +---------+ + + External Lab: Protein, Total (08/13/2015) + +-------+ + + + | Component | Value | Ref Range | Performed | Pathologist | | | | | At | Signature | + +-------+ + + + | Protein, | 6.0 | 6 - 8 | EXTERNAL | | | Total, | | | LAB | | | External | | | | | + +-------+ + + + + + | Resulting Agency Comment | + + | [facility] | + + + +---------+ + + | Performing | Address | City/State/Zipcode | Phone Number | | Organization | | | | + +---------+ + + | EXTERNAL LAB | | | | + +---------+ + + External Lab: Calcium (08/13/2015) + +-------+ + + + | Component | Value | Ref Range | Performed | Pathologist | | | | | At | Signature | + +-------+ + + + | Calcium, | 9.0 | 8.4 - 10.2 | EXTERNAL | | | External | | | LAB | | + +-------+ + + + + + | Resulting Agency Comment | + + | [facility] | + + + +---------+ + + | Performing | Address | City/State/Zipcode | Phone Number | | Organization | | | | + +---------+ + + | EXTERNAL LAB | | | | + +---------+ + + External Lab: Carbon Dioxide (08/13/2015) + +-------+ + + + | Component | Value | Ref Range | Performed | Pathologist | | | | | At | Signature | + +-------+ + + + | Carbon | 29 | 19 - 31 | EXTERNAL | | | Dioxide, | | | LAB | | | External | | | | | + +-------+ + + + + + | Resulting Agency Comment | + + | [facility] | + + + +---------+ + + | Performing | Address | City/State/Zipcode | Phone Number | | Organization | | | | + +---------+ + + | EXTERNAL LAB | | | | + +---------+ + + External Lab: Chloride (08/13/2015) + +-------+ + + + | Component | Value | Ref Range | Performed | Pathologist | | | | | At | Signature | + +-------+ + + + | Chloride, | 100 | 95 - 112 | EXTERNAL | | | External | | | LAB | | + +-------+ + + + + + | Resulting Agency Comment | + + | [facility] | + + + +---------+ + + | Performing | Address | City/State/Zipcode | Phone Number | | Organization | | | | + +---------+ + + | EXTERNAL LAB | | | | + +---------+ + + External Lab: Potassium (08/13/2015) + +-------+ + + + | Component | Value | Ref Range | Performed | Pathologist | | | | | At | Signature | + +-------+ + + + | Potassium, | 4.1 | 3.6 - 5.1 | EXTERNAL | | | External | | | LAB | | + +-------+ + + + + + | Resulting Agency Comment | + + | [facility] | + + + +---------+ + + | Performing | Address | City/State/Zipcode | Phone Number | | Organization | | | | + +---------+ + + | EXTERNAL LAB | | | | + +---------+ + + External Lab: Sodium (08/13/2015) + +-------+ + + + | Component | Value | Ref Range | Performed | Pathologist | | | | | At | Signature | + +-------+ + + + | Sodium, | 136 | 132 - 143 | EXTERNAL | | | External | | | LAB | | + +-------+ + + + + + | Resulting Agency Comment | + + | [facility] | + + + +---------+ + + | Performing | Address | City/State/Zipcode | Phone Number | | Organization | | | | + +---------+ + + | EXTERNAL LAB | | | | + +---------+ + + External Lab: eGFR (08/13/2015) + +-------+ + + + | Component | Value | Ref Range | Performed | Pathologist | | | | | At | Signature | + +-------+ + + + | eGFR, | 83 | | EXTERNAL | | | External | | | LAB | | + +-------+ + + + + + | Specimen | + + | Blood specimen | | (specimen) | + + + + | Resulting Agency Comment | + + | [facility] | + + + +---------+ + + | Performing | Address | City/State/Zipcode | Phone Number | | Organization | | | | + +---------+ + + | EXTERNAL LAB | | | | + +---------+ + + External Lab: Creatinine (08/13/2015) + +-------+ + + + | Component | Value | Ref Range | Performed | Pathologist | | | | | At | Signature | + +-------+ + + + | Creatinine, | 0.91 | 0.7 - 1.25 | EXTERNAL | | | External | | | LAB | | + +-------+ + + + + + | Specimen | + + | Blood specimen | | (specimen) | + + + + | Resulting Agency Comment | + + | [facility] | + + + +---------+ + + | Performing | Address | City/State/Zipcode | Phone Number | | Organization | | | | + +---------+ + + | EXTERNAL LAB | | | | + +---------+ + + documented in this encounter Visit Diagnoses Not on filedocumented in this encounter"
--- OUTSIDE RECORDS SUMMARY | ~2019-07-23 | XMS | Encounter Summary ---
Demographics + + + | Address | [address] | | | [place] [address] | + + + | Home Phone | | + + + | Preferred Language | Unknown | + + + | Marital Status | | + + + | Rastafari Affiliation | Unknown | + + + [...] Team Providers + +------+ + | Care Squeezer Operator Name | Role | Phone | [...] + + | 07/02/ | Telephone | [facility] | Constantin Chavez, | Cardiac Problem | | 2019 | | CARDIOLOGY [place] | [address] | | | | | [address] | [place], [place] | | | | | [place], [place] | [address] | | | | | [address] | | | | | | [phone] | | | +--------+ + + + [...] [place] | | | | | | [address] | | | | | | | [...] | | | | | [place] [address] | | | | | | [phone] | | | | | | | | +--------+ + + + + | 10/21/ | Office | Cardiology | Nav Foley, | | | 2019 | Visit | | [address] | | | | | | [place] [address] | | | | | | [phone] | | | | | | | | +--------+ + + + + documented as of this encounter Visit Diagnoses Not on filedocumented in this encounter"
--- OUTSIDE RECORDS SUMMARY | ~2019-07-23 | XMS | Encounter Summary ---
Demographics + + + | Address | [address] | | | [place] [address] | + + + | Home Phone [...] Team Providers + +------+ + | Care Stator Tester Name | Role | Phone | + +------+ + | Carla Murphy | PCP | | | PA-C | | | + +------+ + Reason for Visit +--------+ + | Reason | Comments | +--------+ + | Other | Incruse | +--------+ + Encounter Details +--------+ + + + + | Date | Type | Department | Care Team | Description | +--------+ + + + + | 10/21/ | Telephone | [facility] | [place], | Other (Incr[facility]) | | 2016 | | PULMONARY [address] | Sailaja Chiang MD | | | | | [place], | | | | | | [place] [address] | | | | | | [phone] | | | +--------+ + + + [...] [place] | | | | | | [address] | | | | | | | [...] | | | | | [place] [address] | | | | | | [phone] | | | | | | | | +--------+ + + + + | 10/21/ | Office | Cardiology | Nav Foley, | | | 2019 | Visit | | [address] | | | | | | [place] [address] | | | | | | [phone] | | | | | | | | +--------+ + + + + documented as of this encounter Visit Diagnoses Not on filedocumented in this encounter"
--- OUTSIDE RECORDS SUMMARY | ~2019-07-23 | XMS | Encounter Summary ---
Demographics + + + | Address | [address] | | | [place] [address] | + + + | Home Phone | | + + + | Preferred Language | Unknown | + + + | Marital Status | | + + + | Congregational Affiliation | Unknown | + + + | Race | Unknown | + + + | Ethnic Group | Unknown | + + + Author + + + | Author | [facility] | | | and [place] | + + + | Organization | [facility] | | | and [...] Team Providers + +------+ + | Care Positive Printer Operator Name | Role | Phone | + +------+ + PCP | Unavailable | + +------+ + Encounter Details +--------+ + + + + | Date | Type | Department | Care Team | Description | +--------+ + + + + | 09/17/ | Hospital | [facility] | Conversion | | | 2014 | Encounter | [facility] | Transaction, | | | | | CLINIC [address] | Provider Unknown | | | | | [place], [place] | [phone] | | | | | [address] | | | | | | [phone] | | | +--------+ + + + [...] [place] | | | | | | [address] | | | | | | | [...] ELIAS | | | | | | [place] [address] | | | | | | [phone] | | | | | | | | +--------+ + + + + | 10/21/ | Office | Cardiology | Nav Foley, | | | 2019 | Visit | | MD [address] | | | | | | [place] [address] | | | | | | [phone] | | | | | | | [...] | EXTERNAL LAB: CBC | Routin | 09/17/2014 | | Results [...] | + + + | FRANCI VELÁZQUEZ XR CHEST 2 VIEW FRONTAL AND LATERAL [...] + | David Mckeon Conversion - 04/03/2019 11:51 PM PDT FRANCI [...] EXTERNAL LAB | | Testing performed at [address];[place] [address] MRSA PCR | | | NEGATIVE Testing performed at | | | [address];[place] [address] | | + + + + +---------+ [...] | | EXTERNAL | | | | [facility];[address] | | LAB | | | | Blvd;[place] [address] | | | | + + + + + + | Antibody | NEGATIVE | | EXTERNAL | | | Screen | | | LAB | | + + + + + + | Antibody | Testing performed at | | EXTERNAL | | | Screen | [facility];[address] [place] [address] | | LAB | | | | Blvd;[place] [address] | | | | + + + [...] | | | Patient | performed at [facility];[address] | | LAB | | | | [address];[place], [place] | | | | | | [address] | | | | + + + [...] | | | | | performed at [facility];[address] | | | | | | [address];[place], [place] | | | | | | [address] | | | | + + + [...] + +---------+ + + External Lab: DENYS (09/17/2014 12:00 PM PST) + + + [...] | | | | | [place] [address] | | | | + + + + + + | RED CELL | 5.03Comment: Testing | 4.20 - 5.70 | EXTERNAL | | | COUNT | performed at [facility], [address] | M/uL | LAB | | | | [address], | | | | | | [place] [address] | | | | + + + + + + | Hgb | 15.5Comment: Testing | 13.2 - 17.0 | EXTERNAL | | | | performed at [facility], [address] | g/dL | LAB | | | | [address], | | | | | | [place] [address] | | | | + + + + + + | Hematocrit, | 45.4Comment: Testing | 39.0 - 50.0 % | EXTERNAL | | | POC | performed at [facility], [address] | | LAB | | | | [address], | | | | | | [place] [address] | | | | + + + + + + | MCV | 90.1Comment: Testing | 80.0 - 100.0 fl | EXTERNAL | | | | performed at [facility], [address] | | LAB | | | | [address], | | | | | | [place] [address] | | | | + + + + + + | MCH | 30.8Comment: Testing | 27.0 - 34.0 pg | EXTERNAL | | | | performed at [facility], [address] | | LAB | | | | [address], | | | | | | [place] [address] | | | | + + + + + + | MCHC | 34.2Comment: Testing | 32.0 - 35.5 | EXTERNAL | | | | performed at [facility], [address] | g/dL | LAB | | | | [address], | | | | | | [place] [address] | | | | + + + + + + | RDW-CV | 43.3Comment: Testing | 37 - 53 fl | EXTERNAL | | | | performed at [facility], [address] | | LAB | | | | [address], | | | | | | [place] [address] | | | | + + + + + + | Platelet | 227Comment: Testing | 150 - 400 K/uL | EXTERNAL | | | Count | performed at [facility], [address] | | LAB | | | Plasma | [address], | | | | | | [place] [address] | | | | + + + + + + | MPV | 8.6Comment: Testing | fl | EXTERNAL | | | | performed at [facility], [address] | | LAB | | | | [address], | | | | | | [place], [place] [address] | | | | + + + + + + | Differentia | MANUALComment: Testing | | EXTERNAL | | | l Type | performed at [facility], [address] | | LAB | | | | [address], | | | | | | [place], [place] [address] | | | | + + + + + + | Segmented | 83Comment: Testing | % | EXTERNAL | | | Neutrophils | performed at [facility], [address] | | LAB | | | Manual | [address], | | | | | | [place] [address] | | | | + + + + + + | Lymphocytes | 11Comment: Testing | % | EXTERNAL | | | Manual | performed at [facility], [address] | | LAB | | | | [address], | | | | | | [place] [address] | | | | + + + + + + | Monocytes | 5Comment: Testing | % | EXTERNAL | | | Manual | performed at [facility], [address] | | LAB | | | | [address], | | | | | | [place] [address] | | | | + + + + + + | Eosinophils | 1Comment: Testing | % | EXTERNAL | | | Manual | performed at [facility], [address] | | LAB | | | | [address], | | | | | | [place] [address] | | | | + + + + + + | Absolute | 12.2 (H)Comment: Testing | 1.9 - 7.4 K/uL | EXTERNAL | | | Neutrophils | performed at [facility], [address] | | LAB | | | | [address], | | | | | | [place] [address] | | | | + + + + + + | Absolute | 1.6Comment: Testing | 1.0 - 3.9 K/uL | EXTERNAL | | | Lymphocytes | performed at [facility], [address] | | LAB | | | | [address], | | | | | | [place] [address] | | | | + + + + + + | Absolute | 0.7Comment: Testing | 0 - 0.8 K/uL | EXTERNAL | | | Monocytes | performed at [facility], [address] | | LAB | | | | [address], | | | | | | [place] [address] | | | | + + + + + + | Absolute | 0.1Comment: Testing | 0 - 0.5 K/uL | EXTERNAL | | | Eosinophils | performed at [facility], [address] | | LAB | | | | [address], | | | | | | [place] [address] | | | | + + + + + + | RBC | RBC AND PLT MORPHOLOGY | | EXTERNAL | | | Morphology | APPEAR NORMALComment: | | LAB | | | | Testing performed at | | | | | | [facility], [address] [facility] | | | | | | [place], [place] | | | | | | [address] | | | | + + + [...] | | | | | [place] [address] | | | | + + + + + + | K | 4.2Comment: Testing | 3.5 - 4.9 | EXTERNAL | | | | performed at [facility], [address] | mmol/L | LAB | | | | [address], | | | | | | [place] [address] | | | | + + + + + + | Cl | 98 (L)Comment: Testing | 99 - 109 mmol/L | EXTERNAL | | | | performed at [facility], [address] | | LAB | | | | [address], | | | | | | [place] [address] | | | | + + + + + + | CO2 | 31Comment: Testing | 23 - 32 mmol/L | EXTERNAL | | | | performed at [facility], [address] | | LAB | | | | [address], | | | | | | [place] [address] | | | | + + + + + + | Anion Gap | 9Comment: Testing | 5 - 20 mmol/L | EXTERNAL | | | | performed at [facility], [address] | | LAB | | | | [address], | | | | | | [place] [address] | | | | + + + + + + | Glucose, | 115 (H)Comment: Testing | 65 - 99 mg/dL | EXTERNAL | | | Fasting | performed at [facility], [address] | | LAB | | | | [address], | | | | | | [place] [address] | | | | + + + + + + | BUN | 16Comment: Testing | 8 - 25 mg/dL | EXTERNAL | | | | performed at [facility], [address] | | LAB | | | | [address], | | | | | | [place] [address] | | | | + + + + + + | Creatinine | 0.98Comment: Testing | 0.70 - 1.30 | EXTERNAL | | | | performed at [facility], [address] | mg/dL | LAB | | | | [address], | | | | | | [place] [address] | | | | + + + + + + | BUN/Creatin | 16Comment: Testing | | EXTERNAL | | | ine Ratio | performed at [facility], [address] | | LAB | | | | [address], | | | | | | [place] [address] | | | | + + + + + + | Calcium | 9.9Comment: NOTE NEW | 8.5 - 10.5 | EXTERNAL | | | | REFERENCE RANGETesting | mg/dL | LAB | | | | performed at [facility], [address] | | | | | | [facility], | | | | | | [place] [address] | | | | + + + [...] | | | | | | at [facility], [address] | | | | | | [facility], | | | | | | [place] [address] | | | | + + + [...]
--- OUTSIDE RECORDS SUMMARY | ~2019-07-23 | XMS | Encounter Summary ---
Demographics + + + | Address | [address] | | | [place] [address] | + + + | Home Phone | | + + + | Preferred Language | Unknown | + + + | Marital Status | | + + + | Oriental Orthodox Affiliation | Unknown | + + + | Race | Unknown | + + + | Ethnic Group | Unknown | + + + Author + + + | Author | [facility] | | | and [place] | + + + | Organization | [facility] | | | [...] Team Providers + +------+ + | Care Bioanalyst Name | Role | Phone | + +------+ + | Carla Murphy | PCP | | | PA-C | | | + +------+ + Encounter Details +--------+ + + + + | Date | Type | Department | Care Team | Description | +--------+ + + + + | 03/25/ | Hospital | [facility] | Conversion | Unknown cause of | | 2016 | Encounter | CONVERSION [address] | Transaction, | injury | | | | [address] | Provider Unknown | | | | | [place], [place] | [phone] | | | | | [phone] | (Fax) | | | | | [phone] | | | +--------+ + + + [...] [place] | | | | | | [address] | | | | | | | [...] F | | | | | | [place] [address] | | | | | | [phone] | | | | | | | | +--------+ + + + + | 10/21/ | Office | Cardiology | Nav Foley, | | | 2019 | Visit | | [address] | | | | | | [place] [address] | | | | | | [phone] | | | | | | | [...]
--- OUTSIDE RECORDS SUMMARY | ~2019-07-23 | XMS | Encounter Summary ---
Demographics + + + | Address | [address] | | | [place] [address] | + + + | Home Phone | | + + + | Preferred Language | Unknown | + + + | Marital Status | | + + + | Church Affiliation | Unknown | + + + | Race | Unknown | + + + | Ethnic Group | Unknown | + + + Author + + + | Author | [facility] | | | and [place] | + + + | Organization | [facility] | | [...] Team Providers + +------+ + | Care Mailroom Courier Name | Role | Phone | + [...] Chiang MD | | | | | [place], | | | | | | [place] [address] | | | | | | [phone] | | | +--------+ + + + [...] | | | | | [place] | | | | | | [address] | | | | | | | [...] F | | | | | | [place] [address] | | | | | | [phone] | | | | | | | | +--------+ + + + + | 10/21/ | Office | Cardiology | NormaNav moreno, | | | 2019 | Visit | | [address] | | | | | | [place] [address] | | | | | | [phone] | | | | | | | [...] [address] | [place] | [phone] | | [facility] | | [address] | | | - LABORATORY | | [...] ST. | [address] | [place] | [phone] | | [facility] | | [address] | | | - LABORATORY | | [...] | [address] | [place] | [phone] | | [facility] | | [address] | | | - LABORATORY | | [...]
--- OUTSIDE RECORDS SUMMARY | ~2019-07-23 | XMS | Encounter Summary ---
Demographics + + + | Address | [address] | | | [place] [address] | + + + | Home Phone | | + + + | Preferred Language | Unknown | + + + | Marital Status | | + + + | Orthodox Affiliation | Unknown | + + + | Race | Unknown | + + + | Ethnic Group | Unknown | + + + Author + + + | Author | [facility] | | | and [place] | + + + | Organization | [facility] | | [...] Team Providers + +------+ + | Care Apprentice Electrician Name | Role | Phone | + +------+ + | Carla Murphy | PCP | | | PA-C | | | + +------+ + Reason for Visit + + + | Reason | Comments | + + + | Sleep Apnea | 2 month follow up | | (Evaluation) | | + + + Encounter Details +--------+---------+ + + + | Date | Type | Department | Care Team | Description | +--------+---------+ + + + | 12/13/ | Office | [facility] [place] | [place], | Dyspnea on exertion; | | 2015 | Visit | PULMONARY [address] | Sailaja Chiang MD | Panlobular | | | | [place], | | emphysema (HCC); | | | | [place] [address] | | Elevated left | | | | [phone] | | diaphragm; Sleep | | | | | | related hypoxia; MOISÉS | | | | | | [...] + + + | Blood Pressure | 110/74 | 12/14/2015 3:12 PM | | | | | PDT | | + + + + + | Pulse | 92 | 12/14/2015 3:12 PM | | | | | PDT | | + + + + + | Temperature | - | - | | + + + + + | Respiratory Rate | - | - | | + + + + + | Oxygen Saturation | 94% | 12/14/2015 3:12 PM | | | | | PDT | | + + + + + | Inhaled Oxygen | - | - | | | Concentration | | | | + + + + + | Weight | 125.1 kg (275 lb | 12/14/2015 3:12 PM | | | | 11.2 oz) | PDT | | + + + + + | Height | 177.8 cm (5' 10") | 12/14/2015 3:12 PM | | | | | PDT | | + + + + + | Body Mass Index | 39.56 | 12/14/2015 3:12 PM | | | | | PDT | | + + + + + documented in this encounter Patient Instructions Patient Instructions Sailaja Nicholson MD - 12/14/2015 4:04 PM PDTI would think very seriously about doing the sleep study. Call if you continue to have issues with the Spiriva capsules and we will switch you to the Respimat. Continue to walk as you are. Stay on the oxygen at night at 3.5L. documented in this encounter Progress Notes Sailaja Nicholson MD - 12/14/2015 3:23 PM PDTFormatting of this note might be differe nt from the original. Pulmonary Follow Up HPI Jared Abraham is a 70 y.o. male patient of Carla Juarez PA-C here today for follow up of COPD. At their last visit, we had ordered him Incruse, and he was switched to Spiriva. Since thei r last visit he feels like he has been doing okay. He is not certain if this has helped him a lot. He did have his pacemaker adjusted at [facility], so that when he exerts himself, his hea rt rate increases. He did notice a difference the first day this was done. Per notes "Attem pted CHILD PSYCHOMETRIST optimization today; however, any time LV offset was changed, patient became dizzy a nd felt near-syncopal. BP throughout was stable. Ultimately, reverted back to LV offset -40, as this was the only setting he felt well. Even AdaptiveCRT made him profoundly symptomatic . Unfortunately, given these symptoms, patient did not tolerate CHILD PSYCHOMETRIST optimization. I did thornton ge him from DDD to DDDR, even though HR histograms showed good distribution of HRs, in hopes that this may give him improved activity tolerance." He is currently on a regimen of Spiriva one capsule inhaled daily. He notes he has run acro ss a couple of these that are empty. He contacted the manager technical support, and he did get 10 capsul es sent to him. He does not use the albuterol at all, as he generally gets too tired before he is gasping for air, so he stops and rests. He returns today for routine follow up. Currently he is able to walk at most for about 5 minutes at his own pace on level ground. Billie berry is exercising regularly. He goes out and walks a trail every day, doing a couple hundred y ards depending on how he is feeling. He does not cough very much. He does not bring up mucous, but feels like he has stuff caugh t in the base of his throat he cannot get out. If it does come out it is yellowish greenish in color. He has been evaluated for nocturnal oxygen and does use it. He is currently on 3.5 LPM at [facility]. He reports good compliance. He remains very hesitant to do a sleep study. He goes to bed at 3-4 pm. He wakes up a coupl e of times to use the bathroom. He sleeps for 10-11 hour a night generally. He also wakes up because he feels his sinuses are plugged up and he cannot breathe and he gives up. He is so metimes tired during the day and will take a nap. Past Medical History Past Medical History Diagnosis Date COPD (chronic obstructive pulmonary disease) ([facility]) Allergic rhinitis seeing Dr. Hedrick 10/2015 MOISÉS (obstructive sleep apnea) not formally diagnosed Anxiety AAA (abdominal aortic aneurysm) ([facility]) 2014 Non-ischemic cardiomyopathy ([facility]) EF 35-40%, class 2-3 symptoms, s/p AICD Lipoma Hypothyroidism Inguinal hernia 1980 now recurrent Appendicitis 1957 Hard of hearing Past Surgical History Past Surgical History Procedure Laterality Date Appendectomy 1957 Inguinal hernia repair Right 1980 Lipoma resection 1994 x2 Inflamed hair folicle 1998 Abdominal aortic aneurysm repair, endovascular 2014 Kadlec, stent x 3 Cardiac defibrillator placement 2009 battery replaced 2014 Cardiac catherization 11/05/2008 left heart with LV gram showing no significant coronary disease, and an EF of 15-20% Social History: History Social History Marital Status: Spouse Name: N/A Number of Children: N/A Years of Education: N/A 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 Has pets at home: Cat Has ever owned birds: Yes an owl back in the s. Other animal exposures: Rabbits, lots of cats and dogs. Hobbies: Going to the [employer]. Allergies: Allergies Allergen Reactions Codeine Anaphylaxis Meperidine Anaphylaxis Oxycodone Anaphylaxis Penicillins Hives Medications: Outpatient Encounter Prescriptions as of 12/14/2015 Medication Sig Dispense Refill aspirin 81 mg EC tablet Take 81 mg by mouth Daily. cetirizine (ZYRTEC) 10 mg tablet Take one tablet daily fluticasone (FLONASE) 50 mcg/nasal spray 1 spray by Nasal route Daily. levothyroxine (SYNTHROID, LEVOTHROID) 75 MCG tablet Take one tablet daily metoprolol tartrate (LOPRESSOR) 25 mg tablet Take 25 mg by mouth Daily. spironolactone (ALDACTONE) 25 mg tablet Take 25 mg by mouth Daily. 1/2 tab daily tiotropium (SPIRIVA HANDIHALER) 18 mcg inhalation capsule Inhale contents of one capsul e once daily (do not swallow capsules) 30 capsule 5 [DISCONTINUED] triamcinolone (NASACORT) 55 mcg/nasal spray Instill 2 sprays in each nos tril daily No facility-administered encounter medications on file as of 12/14/2015. Review of Systems: General: []Weight loss/gain (over 10 lbs) []Fever/chills/sweats []Night sweats EENT: []Hearing loss []Vision loss/change []Sinus congestion/nasal drainage []Nosebleeds [] Hoarseness Cardiac: []Chest pain []Palpitations/heart racing []Swelling of legs/ankles []Waking up at night s hort of breath []Difficulty sleeping flat Gastrointestinal: []Nausea/vomiting []Difficulty swallowing []Heartburn/acid reflux []Loss of appetite []Abd ominal pain Urologic: []Blood in urine []Frequent urination at night []Burning/painful urination []Difficulty wit h urination Objective BP 110/74 mmHg | Pulse 92 | Ht 1.778 m (5' 10") | Wt 125.057 kg (275 lb 11.2 oz) | BMI 39.5 6 kg/m2 | SpO2 94% General Appearance: Alert, cooperative, no distress, appears stated age Head: Normocephalic, without obvious abnormality, atraumatic Eyes: PERRL, conjunctiva clear, no scleral icterus, EOM's intact Ears: Hearing aides in place and not reomved, diminished acuity Nose: Nares normal, septum midline, mucosa normal Mouth: No oral lesions or exudate Neck: Supple, symmetrical, no adenopathy Lungs: No accessory muscle use, breath sounds are slightly diminished bilaterally with pr olongation of the expiratory phase, no wheezes, crackles or rhonchi Chest Wall: No deformity Heart: Regular rate and rhythm, slightly distant, faint murmur, no rub or gallop Abdomen: Soft, non-tender, non-distended, obese Extremities: No cyanosis, clubbing, 1+ bilateral lower extremity edema Pulses: Radial pulses 2+ and symmetric Skin: Warm and dry Lymph nodes: Cervical and supraclavicular nodes normal Data: Chest x-ray under fluoroscopy was done November 01, 2015 was reviewed and interpreted in clini c today. It shows decreased movement of the left hemidiaphragm. There is no paradoxical move ment to suggest paralysis. It moves downward to a diminished degree on inspiration. Overnight oximetry was done on October 21, 2015 on room air and was reviewed and interpreted i n clinic today. It shows he spent 469 minutes with a saturation less than 88 %. Overnight oximetry was done on October 28, 2015 on 2L and was reviewed and interpreted in cli darline today. It shows he spent 90 minutes with a saturation less than 88 %. Overnight oximetry was done on November 04, 2015 on 3L and was reviewed and interpreted in cli darline today. It shows he spent 20 minutes with a saturation less than 88 %. Immunization History Administered Date(s) Administered PNEUMOCOCCAL POLYSACCHARIDE 23-VALENT (PPSV23) 06/13/2006 Assessment ICD-10-CM ICD-9-CM 1. Dyspnea on exertion R06.09 786.09 Likely multi factorial. He is a bit better, possibly f rom pacemaker change, inhaler use, and from increased walking. 2. Panlobular emphysema (HCC) J43.1 492.8 Questionable. The PFTs show restriction, likely f rom obesity and surgeries. His CT scan may show emphysema, but was blurry. He may be better on Spiriva, so we will try continuing this. 3. 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 4. Sleep related hypoxia G47.34 327.24 On oxygen, requiring 3.5L with sleep. 5. MOISÉS (obstructive sleep apnea) G47.33 327.23 Presumptive diagnosis. He refused a sleep st udy again today, but noted he would think about it and let me know. Plan 1.Discussed, and we will continue on Spiriva once daily. Call if he wants to change to Resp imat form. 2.Continue to walk as he is doing. 3.Continue oxygen at night at 3.5L. 4. I strongly recommended a sleep study. 5. Continued cardiology follow up and management. He was advised to call if new pulmonary symptoms were to develop. Return to clinic in 6 weeks, or sooner with concerns. CC: Carla Juarez PA-C Portions of this report were transcribed using voice recognition software. Every effort wa s made to ensure accuracy; however, inadvertent computerized english instructor errors may be pre sent. 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
--- OUTSIDE RECORDS SUMMARY | ~2019-07-23 | XMS | Encounter Summary ---
Demographics + + + | Address | [address] | | | [place] [address] | + + + | Home Phone | | + + + | Preferred Language | Unknown | + + + | Marital Status | | + + + | Rastafarian Affiliation | Unknown | + + + | Race | Unknown | + + + | Ethnic Group | Unknown | + + + Author + + + | Author | [facility] | | | and [place] | + + + | Organization | [facility] | | [...] Team Providers + +------+ + | Care Coin Machine Collector Supervisor Name | Role | Phone | [...] MD | diaphragm | | | | [place], | | | | | | [place] [address] | | | | | | [phone] | | | +--------+ + + + [...] | | | | | [place] | | | | | | [address] | | | | | | | [...] ELIAS | | | | | | [place] [address] | | | | | | [phone] | | | | | | | | +--------+ + + + + | 10/21/ | Office | Cardiology | Nav Foley, | | | 2019 | Visit | | [address] | | | | | | [place] [address] | | | | | | [phone] | | | | | | | | +--------+ + + + + documented as of this encounter Visit Diagnoses + + | Diagnosis | + + | Elevated left diaphragm Disorders of diaphragm | + + documented in this encounter"
--- OUTSIDE RECORDS SUMMARY | ~2019-07-23 | XMS | Encounter Summary ---
Demographics + + + | Address | [address] | | | [place] [address] | + + + | Home Phone | | + + + | Preferred Language | Unknown | + + + | Marital Status | | + + + | Scientology Affiliation | Unknown | + + + | Race | Unknown | + + + | Ethnic Group | Unknown | + + + Author + + + | Author | [facility] | | | and [place] | + + + | Organization | [facility] | | | and [...] Team Providers + +------+ + | Care Tool And Production Planner Name | Role | Phone | + +------+ + | Carla Murphy | PCP | | | PA-C | | | + +------+ + Reason for Visit +--------+ + | Reason | Comments | +--------+ + | Other | end of study | +--------+ + Encounter Details +--------+ + + + + | Date | Type | Department | Care Team | Description | +--------+ + + + + | 06/18/ | Documentati | [facility] | Erin Sharron Floresita, | Other (end of study) | | 2019 | on | [facility] | Technologist | | | | | [address] | | | | | | [place] | | | | | | [address] | | | | | | [phone] | | | +--------+ + + + [...] documented as of this encounter Progress Notes Shraron Khan, Technologist - 06/18/2019 11:59 PM PDTTELEMETRY MONITOR Date of Event Monitor: 06/18/19 Referring Physician: No INDICATIONS: The patient is a 73 y.o. male with Palpitations Underlying rhythm is sinus with minimum rate 49 maximum rate 128 average 82 there is freque nt of ventricular pacing there are periods of wide-complex tachycardia up to 175 bpm. Frequ ent PVCs. Rare PACs. Triggered events correlate with isolated ventricular ectopy Conclusion Abnormal event monitor study Sinus rhythm with ventricular pacing Frequent PVCs and rare PACs Periods of wide-complex tachycardia up to 14 beats in length up to 175 bpm Triggered events correlate with isolated ventricular ectopy Nav Foley MD, FACC, FACP, FASNC documented in this en counter Plan of Treatment +--------+ + + + + | Date | Type | Specialty | Care Team | Description | +--------+ + + + + | 07/30/ | Office | Cardiology | Mary Tipton ANP | | | 2018 | Visit | | [address] | | | | | | [place] | | | | | | [id number] | | | | | | | [...] F | | | | | | [place] [address] | | | | | | [phone] | | | | | | | | +--------+ + + + + | 10/21/ | Office | Cardiology | Nav Foley, | | | 2019 | Visit | | [address] | | | | | | [place] [address] | | | | | | [phone] | | | | | | | | +--------+ + + + + documented as of this encounter Visit Diagnoses + + | Diagnosis | + + | Palpitations | + + documented in this encounter"
--- OUTSIDE RECORDS SUMMARY | ~2019-07-23 | XMS | Encounter Summary ---
Demographics + + + | Address | [address] | | | [place] [address] | + + + | Home Phone | | + + + | Preferred Language | Unknown | + + + | Marital Status | | + + + | Faith Affiliation | Unknown | + + + | Race | Unknown | + + + | Ethnic Group | Unknown | + + + Author + + + | Author | [facility] | | | and [place] | + + + | Organization | [facility] | | | [...] Team Providers + +------+ + | Care Gun Mechanic Name | Role | Phone | + +------+ + | Carla Murphy | PCP | | | PA-C | | | + +------+ + Encounter Details +--------+ + + + + | Date | Type | Department | Care Team | Description | +--------+ + + + + | 09/07/ | Orders Only | [facility] | [place], | Chronic obstructive | | 2016 | | PULMONARY [address] | Sailaja Chiang MD | pulmonary disease, | | | | [place], | | unspecified COPD | | | | [place] [address] | | type (HCC) (Primary | | | | [phone] | | Dx) | +--------+ + + + + Social [...] [place] | | | | | | [address] | | | | | | | [...] | | | | | [place] [address] | | | | | | [phone] | | | | | | | | +--------+ + + + + | 10/21/ | Office | Cardiology | Nav Foley, | | | 2019 | Visit | | MD [address] | | | | | | [place] [address] | | | | | | [phone] | | | | | | | | +--------+ + + + + documented as of this encounter Results PFT PULMONARY FUNCTION TESTING ORDERS Full PFT (Taylor w/BD, lung volumes, diffusion)?: Yes (10/24/2015 3:47 PM PST) + + + | Narrative | Performed At | + + + | Sailaja Nicholson MD 10/24/2015 15:47 PULMONARY | | | FUNCTION TESTING METHOD: Spirometry was obtained pre and post | | | administration of inhaled bronchodilator. Lung volumes were not | | | obtained due to claustrophobia. Diffusion capacity was obtained by | | | single breath method and was not corrected for a measured | | | hemoglobin. ATS standards were met. SPIROMETRY: Prior to | | | administration of inhaled bronchodilator, FVC was moderately reduced | | | at 2.34 L or 52% of predicted. FEV1 was moderately reduced at 1.68 | | | L or 48% of predicted. FEV1/FVC ratio was normal at 72%. After | | | administration of inhaled bronchodilator, FVC increased by 7 % to | | | 2.50 L or 55% of predicted. FEV1 increased by 9 % to 1.82 L or 52% | | | of predicted. FEV1/FVC ratio was normal at 73%. DIFFUSION | | | CAPACITY: Diffusion capacity was mildly reduced at 21.2 mL/mmHg per | | | minute or 65% of predicted and was not corrected for a measured | | | hemoglobin. IMPRESSION: Spirometry is consistent with moderate | | | restrictive physiology. There was not a significant response to | | | inhaled bronchodilator. Diffusion capacity is mildly reduced and is | | | not corrected for measured hemoglobin. Electronically signed by: | | | Sailaja Nicholson MD 10/24/2015 15:44 [facility] | | | [facility] CC: Carla Juarez PA-C | | + + + documented in this encounter Visit Diagnoses + + | Diagnosis | + + | Chronic obstructive pulmonary disease, unspecified COPD type (HCC) - Primary | + + documented in this encounter"
--- OUTSIDE RECORDS SUMMARY | ~2019-07-23 | XMS | Encounter Summary ---
Demographics + + + | Address | [address] | | | [place] [address] | + + + | Home Phone | | + + + | Preferred Language | Unknown | + + + | Marital Status | | + + + | Denominational Affiliation | Unknown | + + + | Race | Unknown | + + + | Ethnic Group | Unknown | + + + Author + + + | Author | [facility] | | | and [place] | + + + | Organization | [facility] | | [...] Team Providers + +------+ + | Care Salesperson Yard Goods Name | Role | Phone | + +------+ + | Carla Murphy | PCP | | | PA-C | | | + +------+ + Encounter Details +--------+ + + + + | Date | Type | Department | Care Team | Description | +--------+ + + + + | 03/25/ | Hospital | [facility] | Conversion | Unknown cause of | | 2016 | Encounter | CONVERSION [address] | Transaction, | injury | | | | [address] | Provider Unknown | | | | | [place], [place] | [phone] | | | | | [address] | (Fax) | | | | | [phone] | | | +--------+ + + + [...] [address] | | | | | | [address] | | | | | | | [...] F | | | | | | [place] [address] | | | | | | [phone] | | | | | | | | +--------+ + + + + | 10/21/ | Office | Cardiology | Nav Foley, | | | 2019 | Visit | | [address] | | | | | | [place] [address] | | | | | | [phone] | | | | | | | [...]
--- OUTSIDE RECORDS SUMMARY | ~2019-07-23 | XMS | Encounter Summary ---
Demographics + + + | Address | [address] | | | [place] [address] | + + + | Home Phone | | + + + | Preferred Language | Unknown | + + + | Marital Status | | + + + | Taoist Affiliation | Unknown | + + + | Race | Unknown | + + + | Ethnic Group | Unknown | + + + Author + + + | Author | [facility] | | | and [place] | + + + | Organization | [facility] | | | and [place] | + + + | Address | Unknown | + + + | Phone | Unavailable | + + + Support + + +---------+ + | Name | Relationship | Address | Phone | + + +---------+ + | Champ Veláqzuez | ECON | Unknown | | + + +---------+ + Care Team Providers + +------+ + | Care Apiculture Teacher Name | Role | Phone | + +------+ + PCP | Unavailable | + +------+ + Encounter Details +--------+ + + + + | Date | Type | Department | Care Team | Description | +--------+ + + + + | 05/17/ | Hospital | [facility] | Conversion | Cardiomyopathy | | 2014 - | Encounter | MEDICAL CENTER | Transaction, | ([facility]ERLY [facility] S/P AAA | | | | CLINICAL DECISION | Provider Unknown | repair | | 05/18/ | | [address] | [phone] | | | 2014 | | [place], [place] | | | | | | [address] | Terrance Martinez MD | | | | | [phone] | PhD [address] [facility] | | | | | | [address] | | | | | | [place] [address] | | | | | | [phone] | | | | | | | [...] 1103 Date of Service: 05/18/15830 Status: Signed Director Center: MORRO Lin (Nurse Practitioner) [facility] PATIENT NAME: Franci Velázquez : 1945: AGE: [...] (36.7 C) Heart Rate: [56-104] 90 Resp: [9-26] 16 BP: (94-124)/(48-78) 114/55 mmHg FiO2 : [51 %-100 %] 100 % SpO2 Av.9 % Min: 91 % Max: 100 % could not be evaluated. This SmartLink does not work with rows of the type: 05/16 1900 - 05/18 0659 In: 850 [P.O.:100; I.V.:750] Out: 500 [...] Note by Cyndee Warner RN at 05/18/15 1137 Author: Cyndee Warner RN Service: (none) Author Type: Registered Nurse Filed: 05/18/15 1138 Date of Service: 05/18/15 1137 Status: Signed Director Center: Cyndee Warner RN (Registered Nurse) Patient discharge instructions were reviewed with patient at bedside. Patient states they u nderstand instructions.No concerns or questions voiced at this time. IV removed. Patient emmanuel eugene be discharging home to [place] with a ride from his friend. onver chetna Transaction, Provider Unknown - 05/18/2015 10:29 AM PDT Nurse Progress Note by Cyndee Warner RN at 05/18/15 1029 Author: Cyndee Warner RN Service: (none) Author Type: Registered Nurse Filed: 05/18/15 1030 Date of Service: 05/18/15 1029 Status: Signed Director Center: Cyndee Warner RN (Registered Nurse) Patient c/o [...] Date of Service: 05/18/15 1018 Status: Signed Director Center: Mackenzie Caballero RN (Registered Nurse) 05/18/15 1017 [...] y.o., male who lives alone in a [facility] apartment. Pt did not identify [...] home, friend Mili to transport home to [place] CABALLERO onver chetna Transaction, Provider Unknown - 05/17/2015 10:51 PM PDT Nurse Progress Note by Melva Harper RN at 05/17/152250 Author: Melva Harper RN Service: (none) Author Type: Registered Nurse Filed: 05/17/152252 Date of Service: 05/17/152250 Status: Signed Director Center: Melva Harper RN (Registered Nurse) Called Dr Martinez EKG *suspect unspecified pacemaker failure. Dr Martinez notified and he wi ll see patient in the morning. Melva Harper RN docume nted in this encounter Plan of Treatment +--------+ + + + + | Date | Type | Specialty | Care Team | Description | +--------+ + + + + | 07/30/ | Office | Cardiology | Mary Tipton ANP | | | 2018 | Visit | | [address] | | | | | | [place], [place] | | | | | | [address] [...] F | | | | | | [place] [address] | | | | | | [phone] | | | | | | | | +--------+ + + + + | 10/21/ | Office | Cardiology | Nav Foley, | | | 2019 | Visit | | [address] | | | | | | [place] [address] | | | | | | [phone] | | | | | | | [...] | EXTERNAL LAB: [facility] | Routin | 05/17/2015 | | Results [...] + + documented in this encounter Results CV EP PROCEDURE (05/17/2015 8:39 PM PDT) + + | Specimen | + + | | + + + + + | Narrative | Performed At | + + + | | | | | | | DATE OF PROCEDURE May 17, 2015 PREPROCEDURE DIAGNOSIS | | | Nonischemic cardiomyopathy, SALES PROMOTION OFFICER-D system at elective replacement | | | indicator. PROCEDURES PERFORMED 1. Periprocedural SALES PROMOTION OFFICER evaluation, | | | programming and optimization. 2. Removal of a SALES PROMOTION OFFICER pulse generator. | | | 3. Implantation of a SALES PROMOTION OFFICER pulse generator. 4. Fluoroscopic lead | | | evaluation without revision or replacement (50555). PHYSICIAN | | | Terrance Martinez MD [...] by echocardiogram April 2015, | | | [place] [employer] functional Class II, status severe sleep | | | apnea, recent triple aneurysm, prepare SALES PROMOTION OFFICER system presently at [facility] | | | underlying the patient's left bundle branch block with ongoing | | | depressed LV ejection fraction for which ongoing ICD protection and | | | SALES PROMOTION OFFICER therapy is indicated. The patient is referred [...] ICD, serial number | | | [id number], implanted January 27, 2010. IMPLANTED MATERIALS | | | Medtronic Viva XT SALES PROMOTION OFFICER-D, serial number [id number]. PREVIOUSLY | | | IMPLANTED LEADS Medtronic right atrial lead, 5076, 52 cm, serial | | | number [id number], implanted January 27, 2010, 4 mV P waves, impedance | | | 399 ohms, threshold 0.5 V at 0.5 msec. RV lead is a Medtronic | | | 6947, 65 cm, serial number [id number], implanted January 27, 2010, 5.5 | | | mV R waves, impedance 988 ohms, threshold 0.5 V at 0.4 msec. LV | | | lead is a Medtronic 4195, 88 cm, serial number [id number], implanted | | | January 27, 2010. We know that this is a Medtronic StarFix lead, | | | impedance 456 ohms, threshold 0.75 V at 0.4 msec. Periprocedure, | | | the patient's ICD was assessed with stored fluoroscopy in both the | | | PORTUGUESE and VILLALPANDO fluoroscopic views demonstrating satisfactory lead | | | positioning and no observable mechanical disruption. Vinh | | | programming is DDD 60 to 120, sleep hysteresis 50 beats per minute. | | | ECG-guided SALES PROMOTION OFFICER optimization was performed noting the prior LV offset | | | was -20. This was assessed at unpaced, 0, -20, -40. Unpaced there | | | was left bundle branch block, QRS 138, MD 178 msec. At 0 offset, QRS | [...] | the patient's equivocal clinical response to SALES PROMOTION OFFICER therapies in 2009. | | | IMPRESSION Successful replacement of a SALES PROMOTION OFFICER-D pulse generator with | | | successful SALES PROMOTION OFFICER optimization selecting an LV offset of -40 [...] | PREPROCEDURE DIAGNOSIS | | Nonischemic cardiomyopathy, SALES PROMOTION OFFICER-D system at elective replacement | | indicator. | | | | PROCEDURES PERFORMED | | 1. Periprocedural SALES PROMOTION OFFICER evaluation, programming and optimization. | | 2. Removal of a SALES PROMOTION OFFICER pulse generator. | | 3. Implantation of a SALES PROMOTION OFFICER pulse generator. | | 4. Fluoroscopic lead evaluation without revision or replacement (05747). | | | | PHYSICIAN | | [...] 35% by echocardiogram April | | 2014, [place] [employer] functional Class II, status severe sleep | | apnea, recent triple aneurysm, prepare SALES PROMOTION OFFICER system presently at [facility] | | underlying the patient's left bundle branch block with ongoing depressed | | LV ejection fraction for which ongoing ICD protection and SALES PROMOTION OFFICER therapy is | | indicated. The patient [...] | Medtronic Bi-V ICD, serial number [id number], implanted January 27, 2010. | | | | IMPLANTED MATERIALS | | Medtronic Viva XT SALES PROMOTION OFFICER-D, serial number [id number]. | | | | PREVIOUSLY IMPLANTED LEADS | | Medtronic right atrial lead, 5076, 52 cm, serial number [id number], | | implanted January 27, 2010, 4 mV P waves, impedance 399 ohms, threshold 0.5 V | | at 0.5 msec. | | | | RV lead is a Medtronic 6947, 65 cm, serial number [id number], implanted | | January 27, 2010, 5.5 mV R waves, impedance 988 ohms, threshold 0.5 V at 0.4 | | msec. | | | | LV lead is a Medtronic 4195, 88 cm, serial number [id number], implanted | | January 27, 2010. We know that this is a Medtronic StarFix lead, impedance | | 456 ohms, threshold 0.75 V at 0.4 msec. | | | | Periprocedure, the patient's ICD was assessed with stored fluoroscopy in | | both the PORTUGUESE and VILLALPANDO fluoroscopic views demonstrating satisfactory lead | | positioning and no observable mechanical disruption. | | | | Vinh programming is DDD 60 to 120, sleep hysteresis 50 beats per minute. | | | | ECG-guided SALES PROMOTION OFFICER optimization was performed noting the prior LV offset was | | -20. This was assessed at unpaced, 0, -20, -40. Unpaced there was left | | bundle branch block, QRS 138, MD 178 msec. At 0 offset, QRS was [...] patient's equivocal clinical | | response to SALES PROMOTION OFFICER therapies in 2009. | | | | IMPRESSION | | Successful replacement of a SALES PROMOTION OFFICER-D pulse generator with successful SALES PROMOTION OFFICER | | optimization selecting an LV offset [...] | | | 0.43 m/s TV Dec Haskell: 1.33 m/s2 TV Dec Time: 204.41 ms TV E | | | Frank: 0.27 m/s TV E/A Ratio: 0.62 Custom Ski Maker: PEDRITO | | | Authenticated by: Terrance Martinez MD Report Date/Time: 05-30-2015 | | | 15:21:28 | | + + + + + | Procedure Note | + + | Mike, Rad Conversion - 04/03/2019 11:51 PM PDT Patient Name: Silvia VELÁZQUEZ | | of : 1945 Performing Physician: Terrance Martinez | | INDICATIONS C | | ardiomyopathy ( Eval [...] 148.95 mlLVLs A4C: 7.54 cmLAAs A4C: 13.83 [id number] A-L | | A4C: 39.99 mlLALs A4C: 4.06 cmAo Diam: 3.85 cmAV Cusp: 2.04 cmLA Diam: 4.15 | | cmLA/Ao: 1.07HR: 81.35 BPMAV maxP.24 mmHgAV meanP.14 mmHgAV Vmax: 0.90 | | m/Fabricio Vmean: 0.71 m/Fabricio VTI: 14.68 cmAVA Vmax: 3.26 cm2AVA (VTI): 3.58 pr8GPSQ | | Dopp: 1.79 l/apox2IKJT Dopp: 4.25 l/minHR: 80.74 BPMLVOT maxP.51 mmHgLVOT [...] A Frank: 0.43 m/sTV Dec | | Haskell: 1.33 m/s2TV Dec Time: 204.41 msTV E Frank: 0.27 m/sTV E/A Ratio: 0.62 | | Custom Ski Maker: MIKAuthenticated by: Terrance Martinez [facility] Date/Time: 05-30-2015 15:21:28 | | IMPRESSION: 1. [...] A Frank: 0.43 m/s | |TV Dec Haskell: 1.33 m/s2 | |TV Dec Time: 204.41 ms | |TV E Frank: 0.27 m/s | |TV E/A Ratio: 0.62 | | | |Custom Ski Maker: PEDRITO | |Authenticated by: Terrance Martinez MD [...] EXTERNAL LAB | | Testing performed at [facility];[address] [place] [address];[place] [address] MRSA PCR | | | NEGATIVE Testing performed at | | | [facility];[address] [place] [address];[place] [address] | | + + + + +---------+ [...] K/uL | LAB | | | | [facility];[address] | | [address];[place] [address] | | | | + + + + + + | RED CELL | 5.14Comment: Testing | 4.20 - 5.70 | EXTERNAL | | | COUNT | performed at [facility];[address] | M/uL | LAB | | | | [address];[place] | | | | | | [address] | | | | + + + + + + | Hgb | 15.7Comment: Testing | 13.2 - 17.0 | EXTERNAL | | | | performed at [facility];[address] | g/dL | LAB | | | | [address];[place] | | | | | | [address] | | | | + + + + + + | Hematocrit, | 47.0Comment: Testing | 39.0 - 50.0 % | EXTERNAL | | | POC | performed at [facility];[address] | | LAB | | | [address];[place] | | | | | | [address] | | | | + + + + + + | MCV | 91.3Comment: Testing | 80.0 - 100.0 fl | EXTERNAL | | | | performed at [facility];[address] | | LAB | | | [address];[place] | | | | | | [address] | | | | + + + + + + | MCH | 30.5Comment: Testing | 27.0 - 34.0 pg | EXTERNAL | | | | performed at [facility];[address] | | LAB | | | [address];[place] | | | | | | [address] | | | | + + + + + + | MCHC | 33.4Comment: Testing | 32.0 - 35.5 | EXTERNAL | | | | performed at [facility];[address] | g/dL | LAB | | | [address];[place] | | | | | | [address] | | | | + + + + + + | RDW-CV | 45.9Comment: Testing | 37 - 53 fl | EXTERNAL | | | | performed at [facility];[address] | | LAB | | | [address];[place] | | | | | | [address] | | | | + + + + + + | Platelet | 226Comment: Testing | 150 - 400 K/uL | EXTERNAL | | | Count | performed at [facility];[address] | | LAB | | | Plasma | [address];[place] | | | | | | [address] | | | | + + + + + + | MPV | 7.9Comment: Testing | fl | EXTERNAL | | | | performed at [facility];[address] | | LAB | | | [address];[place] | | | | | | [address] | | | | + + + + + + | Differentia | MANUALComment: Testing | | EXTERNAL | | | l Type | performed at [facility];[address] | | LAB | | | [address];[place] | | | | | | [address] | | | | + + + + + + | Segmented | 79Comment: Testing | % | EXTERNAL | | | Neutrophils | performed at [facility];[address] | | LAB | | | Manual | [address];[place] | | | | | | [address] | | | | + + + + + + | Lymphocytes | 10Comment: Testing | % | EXTERNAL | | | Manual | performed at [facility];[address] | | LAB | | | [address];[place] | | | | | | [address] | | | | + + + + + + | Monocytes | 11Comment: Testing | % | EXTERNAL | | | Manual | performed at [facility];[address] | | LAB | | | [address];[place] | | | | | | [address] | | | | + + + + + + | Absolute | 10.23 (H)Comment: | 1.90 - 7.40 | EXTERNAL | | | Neutrophils | Testing performed at | K/uL | LAB | | | | [facility];[address];[place] [address] | | | | + + + + + + | Absolute | 1.30Comment: Testing | 1.00 - 3.90 | EXTERNAL | | | Lymphocytes | performed at [facility];[address] | K/uL | LAB | | | | [address];[place] | | | | | | [address] | | | | + + + + + + | Absolute | 1.43 (H)Comment: Testing | 0.00 - 0.80 | EXTERNAL | | | Monocytes | performed at [facility];[address] | K/uL | LAB | | | | [address];[place] | | | | | | [address] | | | | + + + + + + | RBC | RBC AND PLT MORPHOLOGY | | EXTERNAL | | | Morphology | APPEAR NORMALComment: | | LAB | | | | Testing performed at | | | | | | [facility];[address];[place] [address] | | | | + + + [...] EXTERNAL | | | | performed at [facility];[address] | mmol/L | LAB | | | | [address];[place] | | | | | | [address] | | | | + + + + + + | K | 4.2Comment: SLT | 3.5 - 4.9 | EXTERNAL | | | | HEMOLYSISTesting | mmol/L | LAB | | | | performed at [facility];[address] | | | | | [address];[place] | | | | | | [address] | | | | + + + + + + | Cl | 101Comment: Testing | 99 - 109 mmol/L | EXTERNAL | | | | performed at [facility];[address] | | LAB | | | [address];[place] | | | | | | [address] | | | | + + + + + + | CO2 | 30Comment: Testing | 23 - 32 mmol/L | EXTERNAL | | | | performed at [facility];[address] | | LAB | | | [address];[place] | | | | | | [address] | | | | + + + + + + | Anion Gap | 11Comment: Testing | 5 - 20 mmol/L | EXTERNAL | | | | performed at [facility];[address] | | LAB | | | | [address];[place] | | | | | | [address] | | | | + + + + + + | Glucose, | 123 (H)Comment: Testing | 65 - 99 mg/dL | EXTERNAL | | | Fasting | performed at [facility];[address] | | LAB | | | [address];[place] | | | | | | [address] | | | | + + + + + + | BUN | 14Comment: Testing | 8 - 25 mg/dL | EXTERNAL | | | | performed at [facility];[address] | | LAB | | | [address];[place] | | | | | | [address] | | | | + + + + + + | Creatinine | 0.94Comment: Testing | 0.70 - 1.30 | EXTERNAL | | | | performed at [facility];888 | mg/dL | LAB | | | | [address];[place] | | | | | | [address] | | | | + + + + + + | BUN/Creatin | 15Comment: Testing | | EXTERNAL | | | ine Ratio | performed at [facility];[address] | | LAB | | | | [address];[place] | | | | | | [address] | | | | + + + + + + | Calcium | 8.9Comment: Testing | 8.5 - 10.5 | EXTERNAL | | | | performed at [facility];[address] | mg/dL | LAB | | | | [address];[place], [place] | | | | | | [address] | | | | + + + [...] | | | | | | at [facility];[address];[place] [address] | | | | + + + [...]
--- OUTSIDE RECORDS SUMMARY | ~2019-07-23 | XMS | Encounter Summary ---
Demographics + + + | Address | [address] | | | [place] [address] | + + + | Home Phone | | + + + | Preferred Language | Unknown | + + + | Marital Status | | + + + | Tenriism Affiliation | Unknown | + + + [...] Team Providers + +------+ + | Care Carton Catcher Name | Role | Phone | + +------+ + | Carla Murphy | PCP | | | PA-C | | | + +------+ + Encounter Details +--------+ + + + + | Date | Type | Department | Care Team | Description | +--------+ + + + + | 03/25/ | Hospital | [facility] | Conversion | Unknown cause of | | 2016 | Encounter | CONVERSION [address] | Transaction, | injury | | | | [address] | Provider Unknown | | | | | [place], [place] | [phone] | | | | | [phone] | (Fax) | | | | | [phone] | | | +--------+ + + + [...] [place] | | | | | | [address] | | | | | | | [...] F | | | | | | [place] [address] | | | | | | [phone] | | | | | | | | +--------+ + + + + | 10/21/ | Office | Cardiology | Nav Foley, | | | 2019 | Visit | | [address] | | | | | | [place] [address] | | | | | | [phone] | | | | | | | [...]
--- OUTSIDE RECORDS SUMMARY | ~2019-07-23 | XMS | Encounter Summary ---
Demographics + + + | Address | [address] | | | [place] [address] | + + + | Home Phone | | + + + | Preferred Language | Unknown | + + + | Marital Status | | + + + | Holiness Affiliation | Unknown | + + + | Race | Unknown | + + + | Ethnic Group | Unknown | + + + Author + + + | Author | [facility] | | | and [place] | + + + | Organization | [facility] | | [...] Providers + +------+ + | Care Senior Data Integration Developer Name | Role | Phone | + +------+ + | Carla Murphy | PCP | | | PA-C | | | + +------+ + Reason for Visit + + + | Reason | Comments | + + + | Device Check | Medtronic ELECTRIC REPAIR SUPERVISOR-D remote | | (Remote) | | + + + Encounter Details +--------+ + + + + | Date | Type | Department | Care Team | Description | +--------+ + + + + | 06/02/ | Procedure | [facility] | | 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) | | | | [address] | | (Primary Dx); | | | | [place], [place] | | Non-sustained | | | | [address] | | ventricular | | | | [phone] | | tachycardia (HCC); | | | | | | Syncope and collapse | +--------+ + + + + Social [...] [place] | | | | | | [address] | | | | | | | [...] | | | | | | [place] [address] | | | | | | [phone] | | | | | | | | +--------+ + + + + | 10/21/ | Office | Cardiology | Kev Foleyjoni Peñaloza, | | | 2020 | Visit | | [address] | | | | | | [place] [address] | | | | | | [phone] | | | | | | | | +--------+ + + + + documented as of this encounter Procedures + +--------+ + + + | Procedure Name | Priori | Date/Time | Associated Diagnosis | Comments | | | ty | | | | + +--------+ + + + | DEVICE | Routin | 06/02/2019 | Non-ischemic | Results for this | | INTERROGATION- | e | 8:55 AM | cardiomyopathy (HCC) | procedure are in the | | REMOTE | | PDT | Non-sustained | results section. | | | | | ventricular | | | | | | tachycardia (HCC) | | | | | | Syncope and collapse | | + +--------+ + + + documented in this encounter Results Device Interrogation - Remote (06/02/2019 8:55 AM PDT) + + + | Narrative | Performed At | + + + | Germain Boyle | [facility] | | Navid Technologist 06/02/2019 9:10ICD REMOTE INTERROGATION | | | REPORT Name: Jared Abraham PCP: Carla Murphy PA-C | | | : 1945MRN: [id number] Primary cardiology provider: Poppy | | | Ruby Rodriguez Primary electrophysiology provider: Constantin Chavez | | | Device wound care physician: Medtronic Device type: Biventricular Battery | | | Longevity: 3yrs 11 mo RA Pacin% RV Pacin.0%BiV Pacin.6% | | | INTERROGATION RESULTS:Please see the full interrogation report | | | attached Known history of atrial flutter or atrial fibrillation: | | | NoCurrent antithrombotic therapy including: N/A Mode switches: AT/AF | | | <0.1%. Episodes appear to be farfield oversensing.AT/AF Durations1 | | | min to 10 min 1<1 min 118 VT/VF Detections: 3 VT-NS episodes, 1-3 sec | | | din duration, V rates 199-214 bpm. Lead function: Lead impedance and | | | threshold value trends have been reviewed and are acceptable based on | | | most recent evaluation. CHF: Congestive heart failure parameters and | | | trends have been reviewed and are stable Follow up: The next scheduled | | | interrogation will be in 3 months in the cardiac device clinic. | | | Additional comments: None. IMPRESSION:1. Normal ICD function.2. AT/AF | | | episodes noted as above.3. No VT/VF therapies have been given since | | | the last interrogation. Testing reviewed by: LucidEra Fransisca Shoemaker | | | | | | | | |INTERROGATION RESULTS:Please see the full interrogation report | | |attached | | | | | |Known history of atrial flutter or atrial fibrillation: No | | |Current antithrombotic therapy including: N/A | | | | | |Mode switches: AT/AF <0.1%. Episodes appear to be farfield | | |oversensing. | | |AT/AF Durations | | |1 min to 10 min 1 | | |<1 min 118 | | | | | |VT/VF Detections: 3 VT-NS episodes, 1-3 sec din duration, V | | |rates 199-214 bpm. | | | | | |Lead function: Lead impedance and threshold value trends have | | |been reviewed and are acceptable based on most recent evaluation. | | | | | |CHF: Congestive heart failure parameters and trends have been | | |reviewed and are stable | | | | | |Follow up: The next scheduled interrogation will be in 3 months | | |in the cardiac device clinic. | | | | | |Additional comments: None. | | | | | |IMPRESSION: | | |1. Normal ICD function. | | |2. AT/AF episodes noted as above. | | |3. No VT/VF therapies have been given since the last | | |interrogation. | | | | | |Testing reviewed by: LucidEra Fransisca Shoemaker | | | | | | | [...] Paroxysmal ventricular tachycardia | + + | Syncope and collapse | + + documented in this encounter"
--- OUTSIDE RECORDS SUMMARY | ~2019-07-23 | XMS | Encounter Summary ---
Demographics + + + | Address | [address] | | | [place] [address] | + + + | Home Phone [...] Providers + +------+ + | Care Dye Worker Name | Role | Phone | [...] | +--------+ + + + + | 10/24/ | Telephone | [facility] [place] | [place], | Results (nocturnal | | 2016 | | PULMONARY [address] | Sailaja Chiang MD | oximetry) | | | | [place], | | | | | | [place] [address] | | | | | | [phone] | | | +--------+ + + + [...] [place] | | | | | | [address] | | | | | | | [...] ELIAS | | | | | | [place] [address] | | | | | | [phone] | | | | | | | | +--------+ + + + + | 10/21/ | Office | Cardiology | Nav Foley, | | | 2019 | Visit | | [address] | | | | | | [place] [address] | | | | | | [phone] | | | | | | | [...] | e | emphysema (HCC) | starting 10/25/2015 | | | | | | until 10/24/2016 | + + +--------+ + + | Pulse oximetry, | Respiratory | Routin | Panlobular | 1 Occurrences | | overnight study | Care | e | emphysema (HCC) | starting 10/25/2015 | | | | | | until 10/24/2016 | + + +--------+ + + documented as of this encounter Visit Diagnoses + + | Diagnosis | + + | Panlobular emphysema (HCC) - Primary Other emphysema | + + documented in this encounter"
--- OUTSIDE RECORDS SUMMARY | ~2019-07-23 | XMS | Encounter Summary ---
Demographics + + + | Address | [address] | | | [place] [address] | + + + | Home Phone | | + + + | Preferred Language | Unknown | + + + | Marital Status | | + + + | Quaker Affiliation | Unknown | + + + | Race | Unknown | + + + | Ethnic Group | Unknown | + + + Author + + + | Author | [facility] | | | and [place] | + + + | Organization | [facility] | | | [...] Team Providers + +------+ + | Care Oil Rigger Name | Role | Phone | + +------+ + | Carla Murphy | PCP | | | PA-C | | | + +------+ + Encounter Details +--------+ + + + + | Date | Type | Department | Care Team | Description | +--------+ + + + + | 08/17/ | Hospital | [facility] | Therese Sarabia | Syncope, unspecified | | 2018 - | Encounter | [facility] | [address] | syncope type; | | | | CARE FLOOR [address] | [place] [address] | V-tach ([facility]) | | 08/19/ | | [address] | [phone] | | | 2017 | | [place], [place] | | | | | | [address] | | | | | | [phone] | | | +--------+ + + + [...] Summaries by Poli Christine MD at 08/19/18 2945 Author: Poli Christine MD Service: (none) Author Type: Physician Filed: 08/19/18 7796 Date of Service: 08/19/18 5529 Status: Signed Fence Rider: Poli Christine MD (Physician) [facility] Service: Hospitalist Discharge Summary Date of Admission: [...] No discharge procedures on file. Follow up: [facility] [address] [facility] [address] Go to If symptoms worsen Carla Murphy PA-C [address] [place] [address] Schedule an appointment [...] 0 Commonly known as: GLUCOPHAGE Vitamin D3 70157 units Caps Refills: 0 You might also [...] (none) Author Type: Registered Nurse Filed: 08/19/18 1450 Date of Service: 08/19/181445 Status: Signed Fence Rider: Milagros Kirkland RN (Registered Nurse) Discharge paperwork [...] Progress Note by Naveen Caldwell RN at 08/19/18613 Author: Naveen Caldwell RN Service: (none) Author Type: Registered Nurse Filed: 08/19/18614 Date of Service: 08/19/18613 Status: Signed Fence Rider: Naveen Caldwell RN (Registered Nurse) Pt having gas pains [...] 08/18/182054 Date of Service: 08/18/182045 Status: Signed Fence Rider: Poli Christine MD (Physician) [facility] Service: Hospitalist Progress Note Hospital Day: LOS: [...] failure with depressed EF, sta tus post ICD/MEDICAL RECORDS TECHNICIAN insertion. Had been on digoxin outpatient. Digoxin [...] Note by Milagros Kirkland RN at 08/18/18 1554 Author: Milagros Kirkland RN Service: (none) Author Type: Registered Nurse Filed: 08/18/18 1609 Date of Service: 08/18/18 1554 Status: Addendum Fence Rider: Milagros Kirkland RN (Registered Nurse) Related Notes: [...] Filed: 08/18/18 1501 Date of Service: 08/18/18 1501 Status: Signed Fence Rider: Milagros Kirkland RN (Registered Nurse) Assumed care. Report from KEEGAN Colvin. onver chetna Transaction, Provider Unknown - 08/18/2018 2:28 PM PST Nurse Progress Note by Marii Garza RN at 08/18/18 1428 Author: Marii Garza RN Service: (none) Author Type: Registered Nurse Filed: 08/18/18 1428 Date of Service: 08/18/181427 Status: Signed Fence Rider: Marii Garza RN (Registered Nurse) Patients pain [...] Date of Service: 08/18/18 1306 Status: Signed Fence Rider: Malena Ferro RPH (Pharmacist) Renal Dosing Monitoring: Franci Hooks Jarad 73 y.o. male Pharmacy dosing for renal function per Dr. Sarabia Crcl~89.7ml/min Plan per protocol: Medication / Dose: no medications need renal adjustments at this time. Pharmacy will continue monitoring patient for appropriate dosing per renal function. 08/18/2018 1:06 PM Pharmacist: Malena Ferro onver chetna Transaction, Provider Unknown - 08/18/2018 10:59 AM PST Case Management by Yoon Michele RN at 08/18/18 1051 Author: Yoon Michele RN Service: (none) Author Type: Registered Nurse Filed: 08/18/18 1113 Date of Service: 08/18/18 1059 Status: Signed Fence Rider: Yoon Michele RN (Registered Nurse) 08/18/18 1000 [...] discussed discharge planning. Pt resides alone in [place] but is indep wi th all his ADL's. No use of home O2, no dme,no HD. Pt on plavix. Plans to return home Patient's PCP is: Nely Murphy Patient's insurance: medicare/[employer] life Coverage concerns: Medication coverage/concerns: Rx Bedside Delivery: Community resources utilized / needed: Assistance in transportation: family Identification of any specific education / training: Barriers to Discharge / Alternative housing needed: Anticipated DCP: home Sabra Michele RN CM onver chetna Transaction, Provider Unknown - 08/18/2018 7:02 AM PST Nurse Progress Note by Alize Rosas RN at 08/18/18701 Author: Alize Rosas RN Service: (none) Author Type: Registered Nurse Filed: 08/18/18705 Date of Service: 08/18/18701 Status: Signed Fence Rider: Alize Rosas RN (Registered Nurse) Patient arrived [...] uneventful. Chart check complete. Alize Rosas RN herese Sarabia DO - 08/18/2018 6:09 AM PSTFormatting of this note might be different from the orig inal. Progress Notes by Therese Sarabia DO at 08/18/18608 Author: Therese Sarabia DO Service: Hospitalist Author Type: Physician Filed: 08/18/18608 Date of Service: 08/18/18608 Status: Signed Fence Rider: Therese Sarabia DO (Physician) Dr. Roldan consulted documented in this enco unter Plan of [...] [place] | | | | | | [address] | | | | | | | [...] | | | | | [place] [address] | | | | | | [phone] | | | | | | | | +--------+ + + + + | 10/21/ | Office | Cardiology | Nav Foley, | | | 2019 | Visit | | MD [address] | | | | | | [place] [address] | | | | | | [phone] | | | | | | | [...] | Procedure Note | + + | Mike Rad Conversion - 04/02/2019 4:53 AM PDT [...] | | | Fingerstick | performed at [facility];[address] | | LAB | | | | [address];[place], [place] | | | | | | [address] | | | | + + + [...] | | | Fingerstick | performed at [facility];[address] | | LAB | | | | [address];[place] | | | | | | [address] | | | | + + + [...] | | | Fingerstick | performed at [facility];[address] | | LAB | | | | [address];[place], [place] | | | | | | [address] | | | | + + + [...] | | | Fingerstick | performed at [facility] | | LAB | | | | [address];[place], [place] | | | | | | [address] | | | | + + + [...] PDT FRANCI HOLT CAROTID DOPPLER, | | [id number]/30/2018 10:53 AM HISTORY:73 years. Male. Syncope. Ventricular [...] | | | Fingerstick | performed at [facility];[address] | | LAB | | | | [address];[place], [place] | | | | | | [address] | | | | + + + [...] | | | | | | ACUTE ND Testing | | | | | | performed at [facility];[address] | | | | | | [address];[place], [place] | | | | | | [address] | | | | + + + [...] + + + | RED CELL | 4.27 | 4.20 - 5.70 | EXTERNAL | | | COUNT | | M/uL | LAB | | + + + + + + | Hgb | 13.0 (L) | 13.2 - 17.0 [...] | | | Basophils | performed at [facility], [address] | K/uL | LAB | | | | [address], | | | | | | [place] [address] | | | | + + + [...] EXTERNAL | | | | performed at [facility], [address] | uIU/mL | LAB | | | | [address], | | | | | | [place] [address] | | | | + + + [...] | | | | | [place] [address] | | | | + + + [...] EXTERNAL | | | | performed at [facility], [address] | | LAB | | | | [address], | | | | | | [place] [address] | | | | + + + [...] + + | Hemoglobin | 5.5Comment: [place] | 4.0 - 6.0 % | EXTERNAL [...] | | | | | performed at [facility], [address] | | | | | | [facility], | | | | | | [place] [address] | | | | + + + [...] EXTERNAL | | | | performed at [facility];[address] | | LAB | | | | [address];[place], [place] | | | | | | [address] | | | | + + + [...] | | | level | performed at [facility];[address] | ng/mL | LAB | | | | [address];[place], [place] | | | | | | [address] | | | | + + + [...] + + + + | LDL | 27Comment: Testing | mg/dL | EXTERNAL | | | Cholesterol | performed at [facility], [address] | | LAB | | | , | [address], | | | | | Calculated, | [place] [address] | | | | | External | [...] | | | | | performed at [facility], [address] | | | | | | [facility], | | | | | | [place], [place] [address] | | | | + + + [...] | | | Fingerstick | performed at [facility];[address] | | LAB | | | | [address];[place], [place] | | | | | | [address] | | | | + + + [...] | | | | | | ACUTE ND Testing | | | | | | performed at [facility];[address] | | | | | | [facility];[place], [place] | | | | | | [address] | | | | + + + [...] LAB | | | | performed at [facility];[address] | | | | | | [address];[place], [place] | | | | | | [address] | | | | + + + [...]
--- OUTSIDE RECORDS SUMMARY | ~2019-07-23 | XMS | Encounter Summary ---
Demographics + + + | Address | [address] | | | [place] [address] | + + + | Home Phone | | + + + | Preferred Language | Unknown | + + + | Marital Status | | + + + | Quaker Affiliation | Unknown | + + + | Race | Unknown | + + + | Ethnic Group | Unknown | + + + Author + + + | Author | [facility] | | | and [place] | + + + | Organization | [facility] | | [...] Providers + +------+ + | Care Rubber Liner Name | Role | Phone | + +------+ + | Carla Murphy | PCP | | | PA-C | | | + +------+ + Encounter Details +--------+ + + + + | Date | Type | Department | Care Team | Description | +--------+ + + + + | 06/18/ | Procedure | [facility] | Nav Foley, | Palpitations | | 2019 | visit | CARDIOLOGY [place] | [address] | | | | | [address] | [place] [address] | | | | | [place], [place] | [phone] | | | | | [address] | | | | | | [phone] | | | +--------+ + + + [...] - 06/18/2019 3:00 PM PDT30 day telemetry 47[address] cardiac monit or placed on patient. EOB/Billing information discussed. Instructions given and understood. [facility] or [facility] questions. documented [...] [place] | | | | | | [address] | | | | | | | [...] | | | | | [place] [address] | | | | | | [phone] | | | | | | | | +--------+ + + + + | 10/21/ | Office | Cardiology | Nav Foley, | | | 2019 | Visit | | MD [address] | | | | | | [place] [address] | | | | | | [phone] | | | | | | | | +--------+ + + + + documented as of this encounter Visit Diagnoses + + | Diagnosis | + + | Palpitations | + + documented in this encounter"
--- OUTSIDE RECORDS SUMMARY | ~2019-07-23 | XMS | Encounter Summary ---
Demographics + + + | Address | [address] | | | [place] [address] | + + + | Home Phone | | + + + | Preferred Language | Unknown | + + + | Marital Status | | + + + | Uatsdin Affiliation | Unknown | + + + | Race | Unknown | + + + | Ethnic Group | Unknown | + + + Author + + + | Author | [facility] | | | and [place] | + + + | Organization | [facility] | | [...] Team Providers + +------+ + | Care Horticulture Supervisor Name | Role | Phone | + +------+ + | Carla Murphy | PCP | | | PA-C | | | + +------+ + Encounter Details +--------+ + + + + | Date | Type | Department | Care Team | Description | +--------+ + + + + | 03/26/ | Hospital | [facility] | Conversion | Unknown cause of | | 2016 | Encounter | CONVERSION [address] | Transaction, | injury | | | | [address] | Provider Unknown | | | | | [place], [place] | [phone] | | | | | [address] | (Fax) | | | | | [phone] | | | +--------+ + + + [...] [place] | | | | | | [address] | | | | | | | [...] F | | | | | | [place] [address] | | | | | | [phone] | | | | | | | | +--------+ + + + + | 10/21/ | Office | Cardiology | Nav Foley, | | | 2019 | Visit | | [address] | | | | | | [place] [address] | | | | | | [phone] | | | | | | | [...]
--- OUTSIDE RECORDS SUMMARY | ~2019-07-23 | XMS | Encounter Summary ---
Demographics + + + | Address | [address] | | | [place] [address] | + + + | Home Phone | | + + + | Preferred Language | Unknown | + + + | Marital Status | | + + + | Faith Affiliation | Unknown | + + + | Race | Unknown | + + + | Ethnic Group | Unknown | + + + Author + + + | Author | [facility] | | | and [place] | + + + | Organization | [facility] | | [...] Providers + +------+ + | Care Senior Advisor Name | Role | Phone | + +------+ + | Carla Murphy | PCP | | | PA-C | | | + +------+ + Encounter Details +--------+ + + + + | Date | Type | Department | Care Team | Description | +--------+ + + + + | 03/26/ | Hospital | [facility] | Conversion | Unknown cause of | | 2016 | Encounter | CONVERSION [address] | Transaction, | injury | | | | [address] | Provider Unknown | | | | | [place], [place] | [phone] | | | | | [phone] | (Fax) | | | | | [phone] | | | +--------+ + + + [...] [place] | | | | | | [address] | | | | | | | [...] F | | | | | | [place] [address] | | | | | | [phone] | | | | | | | | +--------+ + + + + | 10/21/ | Office | Cardiology | Nav Foley, | | | 2019 | Visit | | [address] | | | | | | [place] [address] | | | | | | [phone] | | | | | | | | +--------+ + + + + documented as of this encounter Procedures + +--------+ + + + | Procedure Name | Priori | Date/Time | Associated Diagnosis | Comments | | | ty | | | | + +--------+ + + + | XR CHEST 1 VIEW | Routin | 08/13/2015 | | Results for this | | | e | 1:57 PM | | procedure are in the | | | | PST | | results section. | + +--------+ + + + documented in this encounter Results XR Chest 1 Vw (08/13/2015 1:57 PM PST) + + | Specimen | [...]
--- OUTSIDE RECORDS SUMMARY | ~2019-07-23 | XMS | Encounter Summary ---
Demographics + + + | Address | [address] | | | [place] [address] | + + + | Home Phone | | + + + | Preferred Language | Unknown | + + + | Marital Status | | + + + | Worship Affiliation | Unknown | + + + [...] Team Providers + +------+ + | Care Elementary Education Tutor Name | Role | Phone | + +------+ + | Carla Murphy | PCP | | | PA-C | | | + +------+ + Encounter Details +--------+ + + + + | Date | Type | Department | Care Team | Description | +--------+ + + + + | 03/25/ | Hospital | [facility] | Conversion | Unknown cause of | | 2016 | Encounter | CONVERSION [address] | Transaction, | injury | | | | [address] | Provider Unknown | | | | | [place], [place] | [phone] | | | | | [phone] | (Fax) | | | | | [phone] | | | +--------+ + + + [...] [place] | | | | | | [address] | | | | | | | [...] F | | | | | | [place] [address] | | | | | | [phone] | | | | | | | | +--------+ + + + + | 10/21/ | Office | Cardiology | Nav Foley, | | | 2019 | Visit | | [address] | | | | | | [place] [address] | | | | | | [phone] | | | | | | | [...]
--- OUTSIDE RECORDS SUMMARY | ~2019-07-23 | XMS | Encounter Summary ---
Demographics + + + | Address | [address] | | | [place] [address] | + + + | Home Phone | | + + + | Preferred Language | Unknown | + + + | Marital Status | | + + + | Restoration Affiliation | Unknown | + + + [...] Team Providers + +------+ + | Care Coverage Specialist Rn Name | Role | Phone | + +------+ + PCP | Unavailable | + +------+ + Encounter Details +--------+ + + + + | Date | Type | Department | Care Team | Description | +--------+ + + + + | 09/15/ | Hospital | [facility] | Conversion | Pain | | 2015 | Encounter | CONVERSION [address] | Transaction, | | | | | [address] | Provider Unknown | | | | | [place] | [phone] | | | | | [address] | | | | | | [phone] | | | +--------+ + + + [...] [place] | | | | | | [address] | | | | | | | [...] ELIAS | | | | | | [place] [address] | | | | | | [phone] | | | | | | | | +--------+ + + + + | 10/21/ | Office | Cardiology | Nav Foley, | | | 2019 | Visit | | MD [address] | | | | | | [place] [address] | | | | | | [phone] | | | | | | | | +--------+ + + + + documented as of this encounter Procedures + +--------+ + + + | Procedure Name | Priori | Date/Time | Associated Diagnosis | Comments | | | ty | | | | + +--------+ + + + | CT PELVIS WO | Routin | 09/03/2014 | | Results for this | | CONTRAST | e | 8:34 PM | | procedure are in the | | | | PST | | results section. | + +--------+ + + + documented in this encounter Results CT Pelvis wo Contrast (09/03/2014 8:34 PM PST) + + | Specimen | [...]
--- OUTSIDE RECORDS SUMMARY | ~2019-07-23 | XMS | Encounter Summary ---
Demographics + + + | Address | [address] | | | [place] [address] | + + + | Home Phone | | + + + | Preferred Language | Unknown | + + + | Marital Status | | + + + | Restorationism Affiliation | Unknown | + + + | Race | Unknown | + + + | Ethnic Group | Unknown | + + + Author + + + | Author | [facility] | | | and [place] | + + + | Organization | [facility] | | | [...] Team Providers + +------+ + | Care Belly Roller Name | Role | Phone | + [...] MD | oximetry) | | | | [place], | | | | | | [place] [address] | | | | | | [phone] | | | +--------+ + + + [...] [place] | | | | | | [address] | | | | | | | [...] ELIAS | | | | | | [place] [address] | | | | | | [phone] | | | | | | | | +--------+ + + + + | 10/21/ | Office | Cardiology | Nav Foley, | | | 2019 | Visit | | [address] | | | | | | [place] [address] | | | | | | [phone] | | | | | | | [...]
--- OUTSIDE RECORDS SUMMARY | ~2019-07-23 | XMS | Encounter Summary ---
Demographics + + + | Address | [address] | | | [place] [address] | + + + | Home Phone | | + + + | Preferred Language | Unknown | + + + | Marital Status | | + + + | Buddhism Affiliation | Unknown | + + + | Race | Unknown | + + + | Ethnic Group | Unknown | + + + Author + + + | Author | [facility] | | | and [place] | + + + | Organization | [facility] | | [...] Team Providers + +------+ + | Care Card Cleaner Name | Role | Phone | + +------+ + | Carla Murphy | PCP | | | PA-C | | | + +------+ + Encounter Details +--------+ + + + + | Date | Type | Department | Care Team | Description | +--------+ + + + + | 03/26/ | Hospital | [facility] | Conversion | Unknown cause of | | 2016 | Encounter | CONVERSION [address] | Transaction, | injury | | | | [address] | Provider Unknown | | | | | [place], [place] | [phone] | | | | | [phone] | (Fax) | | | | | [phone] | | | +--------+ + + + [...] [place] | | | | | | [address] | | | | | | | [...] F | | | | | | [place] [address] | | | | | | [phone] | | | | | | | | +--------+ + + + + | 10/21/ | Office | Cardiology | Nav Foley, | | | 2019 | Visit | | [address] | | | | | | [place] [address] | | | | | | [phone] | | | | | | | [...] Procedure Note | + + | Mike David Conversion - 04/03/2019 1:22 PM PDT This is a non-reportable procedure | | without a radiologist report and isused for image storage only | + + documented in this encounter Visit Diagnoses + + | Diagnosis | + + | Unknown cause of injury Unspecified accident | + + documented in this encounter"
--- OUTSIDE RECORDS SUMMARY | ~2019-07-23 | XMS | Encounter Summary ---
Demographics + + + | Address | [address] | | | [place] [address] | + + + | Home Phone [...] Team Providers + +------+ + | Care Produce Inspector Name | Role | Phone | + [...] | PULMONARY [address] | RN | ([facility]) | | | | [place], | | | | | | [place] [address] | | | | | | [phone] | | | +--------+ + + + [...] | | | | | [address] [place] | | | | | | [address] | | | | | | | [...] F | | | | | | [place] [address] | | | | | | [phone] | | | | | | | | +--------+ + + + + | 10/21/ | Office | Cardiology | Nav Foley, | | | 2019 | Visit | | [address] | | | | | | [place] [address] | | | | | | [phone] | | | | | | | | +--------+ + + + + documented as of this encounter Visit Diagnoses + + | Diagnosis | + + | Panlobular emphysema (HCC) Other emphysema | + + documented in this encounter"
--- OUTSIDE RECORDS SUMMARY | ~2019-07-23 | XMS | Encounter Summary ---
Demographics + + + | Address | [address] | | | [place] [address] | + + + | Home Phone | | + + + | Preferred Language | Unknown | + + + | Marital Status | | + + + | Baptism Affiliation | Unknown | + + + [...] Team Providers + +------+ + | Care Personal Finance Instructor Name | Role | Phone | + [...] Chiang MD | | | | | [place], | | | | | | [place] [address] | | | | | | [phone] | | | +--------+ + + + [...] [place] | | | | | | [address] | | | | | | | [...] | | | | | [place] [address] | | | | | | [phone] | | | | | | | | +--------+ + + + + | 10/21/ | Office | Cardiology | Nav Foley, | | | 2019 | Visit | | [address] | | | | | | [place] [address] | | | | | | [phone] | | | | | | | | +--------+ + + + + documented as of this encounter Visit Diagnoses Not on filedocumented in this encounter"
--- OUTSIDE RECORDS SUMMARY | ~2019-07-23 | XMS | Encounter Summary ---
Demographics + + + | Address | [address] | | | [place] [address] | + + + | Home Phone [...] | +--------+ + + + + | 11/01/ | Telephone | [facility] [place] | [place], | Results (nocturnal | | 2016 | | PULMONARY [address] | Sailaja Chiang MD | oximetry) | | | | [place], | | | | | | [place] [address] | | | | | | [phone] | | | +--------+ + + + [...] [place] | | | | | | [address] | | | | | | | [...] ELIAS | | | | | | [place] [address] | | | | | | [phone] | | | | | | | | +--------+ + + + + | 10/21/ | Office | Cardiology | Nav Foley, | | | 2019 | Visit | | [address] | | | | | | [place] [address] | | | | | | [phone] | | | | | | | [...] | e | emphysema (HCC) | starting 11/02/2015 | | | | | | until 11/01/2016 | + + +--------+ + + | Pulse oximetry, | Respiratory | Routin | Panlobular | 1 Occurrences | | overnight study | Care | e | emphysema (HCC) | starting 11/02/2015 | | | | | | until 11/01/2016 | + + +--------+ + + documented as of this encounter Visit Diagnoses + + | Diagnosis | + + | Panlobular emphysema (HCC) - Primary Other emphysema | + + documented in this encounter"
--- OUTSIDE RECORDS SUMMARY | ~2019-07-23 | XMS | Encounter Summary ---
Demographics + + + | Address | [address] | | | [place] [address] | + + + | Home Phone [...] Team Providers + +------+ + | Care Automotive Technician Name | Role | Phone | + +------+ + PCP | Unavailable | + +------+ + Encounter Details +--------+ + + + + | Date | Type | Department | Care Team | Description | +--------+ + + + + | 05/17/ | Hospital | [facility] | Conversion | Cardiomyopathy | | 2014 - | Encounter | [facility] | Transaction, | (FORMERLY [facility]); S/P AAA | | | | CLINICAL DECISION | Provider Unknown | repair | | 05/18/ | | [address] | [phone] | | | 2014 | | [place], [place] | | | | | | [address] | Terrance Martinez MD | | | | | [phone] | PhD [address] [facility] | | | | | | [address] | | | | | | [place] [address] | | | | | | [phone] | | | | | | | [...] 1103 Date of Service: 05/18/15830 Status: Signed Stringing Machine Tender: MORRO Lin (Nurse Practitioner) [facility] PATIENT NAME: Franci Velázquez : 1945: AGE: [...] Date of Service: 05/18/15 1137 Status: Signed Stringing Machine Tender: Cyndee Warner RN (Registered Nurse) Patient discharge instructions were reviewed with patient at bedside. Patient states they u nderstand instructions.No concerns or questions voiced at this time. IV removed. Patient emmanuel eugene be discharging home to [place] with a ride from his friend. onver chetna Transaction, Provider Unknown - 05/18/2015 10:29 AM PDT Nurse Progress Note by Cyndee Warner RN at 05/18/15 1029 Author: Cyndee Warner RN Service: (none) Author Type: Registered Nurse Filed: 05/18/15 1030 Date of Service: 05/18/15 1029 Status: Signed Stringing Machine Tender: Cyndee Warner RN (Registered Nurse) Patient c/o [...] Date of Service: 05/18/15 1018 Status: Signed Stringing Machine Tender: Mackenzie Caballero RN (Registered Nurse) 05/18/15 1017 [...] y.o., male who lives alone in a [facility] apartment. Pt did not identify financial, [...] 05/17/152252 Date of Service: 05/17/152250 Status: Signed Stringing Machine Tender: Melva Harper RN (Registered Nurse) Called Dr [...] | | | | | [place], [place] | | | | | | [...] F | | | | | | [place] [address] | | | | | | [phone] | | | | | | | | +--------+ + + + + | 10/21/ | Office | Cardiology | Nav Foley, | | | 2019 | Visit | | [address] | | | | | | [place] [address] | | | | | | [phone] | | | | | | | [...] PREPROCEDURE DIAGNOSIS | | | Nonischemic cardiomyopathy, LINE WELDER-D system at elective replacement | | | indicator. PROCEDURES PERFORMED 1. Periprocedural LINE WELDER evaluation, | | | programming and optimization. 2. Removal of a LINE WELDER pulse generator. | | | 3. Implantation of a LINE WELDER pulse generator. 4. Fluoroscopic lead | | | evaluation without revision or replacement ([id number]). PHYSICIAN | | | Terrance Martinez MD [...] by echocardiogram April 2015, | | | [place] [employer] functional Class II, status severe sleep | | | apnea, recent triple aneurysm, prepare LINE WELDER system presently at [facility] | | | underlying the patient's left bundle branch block with ongoing | | | depressed LV ejection fraction for which ongoing ICD protection and | | | LINE WELDER therapy is indicated. The patient is referred [...] ICD, serial number | | | PUD [id number], implanted January 27, 2010. IMPLANTED MATERIALS | | | Medtronic Viva XT LINE WELDER-D, serial number [id number]. PREVIOUSLY | | | IMPLANTED LEADS Medtronic right atrial lead, 5076, 52 cm, serial | | | number [id number], implanted January 27, 2010, 4 mV P waves, impedance | | | 399 ohms, threshold 0.5 V at 0.5 msec. RV lead is a Medtronic | | | 6947, 65 cm, serial number [id number], implanted January 27, 2010, 5.5 | | | mV R waves, impedance 988 ohms, threshold 0.5 V at 0.4 msec. LV | | | lead is a Medtronic 4195, 88 cm, serial number [id number], implanted | | | January 27, 2010. We know that this is a Medtronic StarFix lead, | | | impedance 456 ohms, threshold 0.75 V at 0.4 msec. Periprocedure, | | | the patient's ICD was assessed with stored fluoroscopy in both the | | | NIGERIEN and VILLALPANDO fluoroscopic views demonstrating satisfactory lead | | | positioning and no observable mechanical disruption. Vinh | | | programming is DDD 60 to 120, sleep hysteresis 50 beats per minute. | | | ECG-guided LINE WELDER optimization was performed noting the prior LV offset | | | was -20. This was assessed at unpaced, 0, -20, -40. Unpaced there | | | was left bundle branch block, QRS 138, CA 178 msec. At 0 offset, QRS | [...] | the patient's equivocal clinical response to LINE WELDER therapies in 2009. | | | IMPRESSION Successful replacement of a LINE WELDER-D pulse generator with | | | successful LINE WELDER optimization selecting an LV offset of -40 [...] | PREPROCEDURE DIAGNOSIS | | Nonischemic cardiomyopathy, LINE WELDER-D system at elective replacement | | indicator. | | | | PROCEDURES PERFORMED | | 1. Periprocedural LINE WELDER evaluation, programming and optimization. | | 2. Removal of a LINE WELDER pulse generator. | | 3. Implantation of a LINE WELDER pulse generator. | | 4. Fluoroscopic lead evaluation without revision or replacement (95074). | | | | PHYSICIAN | | [...] 35% by echocardiogram April | | 2014, [place] [employer] functional Class II, status severe sleep | | apnea, recent triple aneurysm, prepare LINE WELDER system presently at [facility] | | underlying the patient's left bundle branch block with ongoing depressed | | LV ejection fraction for which ongoing ICD protection and LINE WELDER therapy is | | indicated. The patient [...] | Medtronic Bi-V ICD, serial number PUD [id number], implanted January 27, 2010. | | | | IMPLANTED MATERIALS | | Medtronic Viva XT LINE WELDER-D, serial number [id number]. | | | | PREVIOUSLY IMPLANTED LEADS | | Medtronic right atrial lead, 5076, 52 cm, serial number [id number], | | implanted January 27, 2010, 4 mV P waves, impedance 399 ohms, threshold 0.5 V | | at 0.5 msec. | | | | RV lead is a Medtronic 6947, 65 cm, serial number [id number], implanted | | January 27, 2010, 5.5 mV R waves, impedance 988 ohms, threshold 0.5 V at 0.4 | | msec. | | | | LV lead is a Medtronic 4195, 88 cm, serial number [id number], implanted | | January 27, 2010. We know that this is a Medtronic StarFix lead, impedance | | 456 ohms, threshold 0.75 V at 0.4 msec. | | | | Periprocedure, the patient's ICD was assessed with stored fluoroscopy in | | both the NIGERIEN and VILLALPANDO fluoroscopic views demonstrating satisfactory lead | | positioning and no observable mechanical disruption. | | | | Vinh programming is DDD 60 to 120, sleep hysteresis 50 beats per minute. | | | | ECG-guided LINE WELDER optimization was performed noting the prior LV offset was | | -20. This was assessed at unpaced, 0, -20, -40. Unpaced there was left | | bundle branch block, QRS 138, CA 178 msec. At 0 offset, QRS was [...] patient's equivocal clinical | | response to LINE WELDER therapies in 2009. | | | | IMPRESSION | | Successful replacement of a LINE WELDER-D pulse generator with successful LINE WELDER | | optimization selecting an LV offset [...] | | | 0.43 m/s TV Dec [place]: 1.33 m/s2 TV Dec Time: 204.41 ms TV E | | | Frank: 0.27 m/s TV E/A Ratio: 0.62 Dynamite Packing Machine Feeder: [id number] | | | Authenticated by: Terrance [...] 148.95 mlLVLs A4C: 7.54 cmLAAs A4C: 13.83 [id number] A-L | | A4C: 39.99 mlLALs A4C: 4.06 cmAo Diam: 3.85 cmAV Cusp: 2.04 cmLA Diam: 4.15 | | cmLA/Ao: 1.07HR: 81.35 BPMAV maxP.24 mmHgAV meanP.14 mmHgAV Vmax: 0.90 | | m/Fabricio Vmean: 0.71 m/Fabricio VTI: 14.68 cmAVA Vmax: 3.26 cm2AVA (VTI): 3.58 [id number] | | Dopp: 1.79 l/[id number] Dopp: 4.25 l/minHR: 80.74 BPMLVOT maxP.51 mmHgLVOT [...] A Frank: 0.43 m/sTV Dec | | [place]: 1.33 m/s2TV Dec Time: 204.41 msTV E Frank: 0.27 m/sTV E/A Ratio: 0.62 | | Dynamite Packing Machine Feeder: MIKAuthenticated by: Terrance Martinez [facility] Date/Time: 05-30-2015 15:21:28 | | IMPRESSION: 1. [...] A Frank: 0.43 m/s | |TV Dec [place]: 1.33 m/s2 | |TV Dec Time: 204.41 ms | |TV E Frank: 0.27 m/s | |TV E/A Ratio: 0.62 | | | |Dynamite Packing Machine Feeder: PEDRITO | |Authenticated by: Terrance Martinez MD [...] EXTERNAL LAB | | Testing performed at [facility];[address] [place] [address];[place] [address] MRSA PCR | | | NEGATIVE Testing performed at | | | [facility];[address] [place] [address];[place] [address] | | + + + + +---------+ [...] K/uL | LAB | | | | [facility];[address] | | [address];[place] [address] | | | | + + + + + + | RED CELL | 5.14Comment: Testing | 4.20 - 5.70 | EXTERNAL | | | COUNT | performed at [facility];[address] | M/uL | LAB | | | | [address];[place] | | | | | | [address] | | | | + + + + + + | Hgb | 15.7Comment: Testing | 13.2 - 17.0 | EXTERNAL | | | | performed at [facility];[address] | g/dL | LAB | | | | [address];[place] | | | | | | [address] | | | | + + + + + + | Hematocrit, | 47.0Comment: Testing | 39.0 - 50.0 % | EXTERNAL | | | POC | performed at [facility];[address] | | LAB | | | [address];[place] | | | | | | [address] | | | | + + + + + + | MCV | 91.3Comment: Testing | 80.0 - 100.0 fl | EXTERNAL | | | | performed at [facility];[address] | | LAB | | | [address];[place] | | | | | | [address] | | | | + + + + + + | MCH | 30.5Comment: Testing | 27.0 - 34.0 pg | EXTERNAL | | | | performed at [facility];[address] | | LAB | | | [address];[place] | | | | | | [address] | | | | + + + + + + | MCHC | 33.4Comment: Testing | 32.0 - 35.5 | EXTERNAL | | | | performed at [facility];[address] | g/dL | LAB | | | | [address];[place] | | | | | | [address] | | | | + + + + + + | RDW-CV | 45.9Comment: Testing | 37 - 53 fl | EXTERNAL | | | | performed at [facility];[address] | | LAB | | | [address];[place] | | | | | | [address] | | | | + + + + + + | Platelet | 226Comment: Testing | 150 - 400 K/uL | EXTERNAL | | | Count | performed at [facility];[address] | | LAB | | | Plasma | [address];[place] | | | | | | [address] | | | | + + + + + + | MPV | 7.9Comment: Testing | fl | EXTERNAL | | | | performed at [facility];[address] | | LAB | | | [address];[place] | | | | | | [address] | | | | + + + + + + | Differentia | MANUALComment: Testing | | EXTERNAL | | | l Type | performed at [facility];[address] | | LAB | | | [address];[place] | | | | | | [address] | | | | + + + + + + | Segmented | 79Comment: Testing | % | EXTERNAL | | | Neutrophils | performed at [facility];[address] | | LAB | | | Manual | [address];[place] | | | | | | [address] | | | | + + + + + + | Lymphocytes | 10Comment: Testing | % | EXTERNAL | | | Manual | performed at [facility];[address] | | LAB | | | [address];[place] | | | | | | [address] | | | | + + + + + + | Monocytes | 11Comment: Testing | % | EXTERNAL | | | Manual | performed at [facility];[address] | | LAB | | | [address];[place] | | | | | | [address] | | | | + + + + + + | Absolute | 10.23 (H)Comment: | 1.90 - 7.40 | EXTERNAL | | | Neutrophils | Testing performed at | K/uL | LAB | | | | [facility];[address];[place] [address] | | | | + + + + + + | Absolute | 1.30Comment: Testing | 1.00 - 3.90 | EXTERNAL | | | Lymphocytes | performed at [facility];[address] | K/uL | LAB | | | | [address];[place] | | | | | | [address] | | | | + + + + + + | Absolute | 1.43 (H)Comment: Testing | 0.00 - 0.80 | EXTERNAL | | | Monocytes | performed at [facility];[address] | K/uL | LAB | | | | [address];[place] | | | | | | [address] | | | | + + + + + + | RBC | RBC AND PLT MORPHOLOGY | | EXTERNAL | | | Morphology | APPEAR NORMALComment: | | LAB | | | | Testing performed at | | | | | | [facility];[address];[place] [address] | | | | + + + [...] EXTERNAL | | | | performed at [facility];[address] | mmol/L | LAB | | | | [address];[place] | | | | | | [address] | | | | + + + + + + | K | 4.2Comment: SLT | 3.5 - 4.9 | EXTERNAL | | | | HEMOLYSISTesting | mmol/L | LAB | | | | performed at [facility];[address] | | | | | | [address];[place] | | | | | | [address] | | | | + + + + + + | Cl | 101Comment: Testing | 99 - 109 mmol/L | EXTERNAL | | | | performed at [facility];[address] | | LAB | | | | [address];[place] | | | | | | [address] | | | | + + + + + + | CO2 | 30Comment: Testing | 23 - 32 mmol/L | EXTERNAL | | | | performed at [facility];[address] | | LAB | | | | [address];[place] | | | | | | [address] | | | | + + + + + + | Anion Gap | 11Comment: Testing | 5 - 20 mmol/L | EXTERNAL | | | | performed at [facility];[address] | | LAB | | | | [address];[place] | | | | | | [address] | | | | + + + + + + | Glucose, | 123 (H)Comment: Testing | 65 - 99 mg/dL | EXTERNAL | | | Fasting | performed at [facility];[address] | | LAB | | | [address];[place] | | | | | | [address] | | | | + + + + + + | BUN | 14Comment: Testing | 8 - 25 mg/dL | EXTERNAL | | | | performed at [facility];[address] | | LAB | | | | [address];[place] | | | | | | [address] | | | | + + + + + + | Creatinine | 0.94Comment: Testing | 0.70 - 1.30 | EXTERNAL | | | | performed at [facility];888 | mg/dL | LAB | | | | [address];[place] | | | | | | [address] | | | | + + + + + + | BUN/Creatin | 15Comment: Testing | | EXTERNAL | | | ine Ratio | performed at [facility];[address] | | LAB | | | | [address];[place] | | | | | | [address] | | | | + + + + + + | Calcium | 8.9Comment: Testing | 8.5 - 10.5 | EXTERNAL | | | | performed at [facility];[address] | mg/dL | LAB | | | | [address];[place], [place] | | | | | | [address] | | | | + + + [...] | | | | | | at [facility];[address];[place] [address] | | | | + + + [...]
--- OUTSIDE RECORDS SUMMARY | ~2019-07-23 | XMS | Encounter Summary ---
Demographics + + + | Address | [address] | | | [place] [address] | + + + | Home Phone | | + + + | Preferred Language | Unknown | + + + | Marital Status | | + + + | Sikh Affiliation | Unknown | + + + | Race | Unknown | + + + | Ethnic Group | Unknown | + + + Author + + + | Author | [facility] | | | and [place] | + + + | Organization | [facility] | | | and [...] Team Providers + +------+ + | Care Air Drill Operator Name | Role | Phone | [...] + + | 06/04/ | Office | [facility] | Nav Foley, | Palpitations | | 2019 | Visit | CARDIOLOGY [place] | [address] | (Primary Dx) | | | | [address] | [place] [address] | | | | | [place] | [phone] | | | | | [address] | | | | | | [phone] | | | +--------+---------+ + + + [...] 12/06/18 1040 Encounter Date: 12/04/2018 Status: Signed Laboratory Manager: Nav Foley MD (Physician) Related Notes: [...] mg by mouth nightly. Cholecalciferol (VITAMIN D3) 35177 UNITS CAPS Take 5,000 Int'l Units by [...] [place] | | | | | | [address] | | | | | | | [...] | | | | | [place] [address] | | | | | | [phone] | | | | | | | | +--------+ + + + + | 10/21/ | Office | Cardiology | Alaina Nav N, | | | 2019 | Visit | | MD [address] | | | | | | [place] [address] | | | | | | [phone] | | | | | | | [...]
--- OUTSIDE RECORDS SUMMARY | ~2019-07-23 | XMS | Encounter Summary ---
Demographics + + + | Address | [address] | | | [place] [address] | + + + | Home Phone [...] Team Providers + +------+ + | Care Command And Control Specialist Name | Role | Phone | + +------+ + PCP | Unavailable | + +------+ + Encounter Details +--------+ + + + + | Date | Type | Department | Care Team | Description | +--------+ + + + + | 09/17/ | Hospital | [facility] | Conversion | | | 2015 | Encounter | [facility] | Transaction, | | | | | [address] | Provider Unknown | | | | | [place] | [phone] | | | | | [address] | | | | | | [phone] | | | +--------+ + + + [...] [place] | | | | | | [address] | | | | | | | [...] [place] | | | | | | [place] [address] | | | | | | [phone] | | | | | | | | +--------+ + + + + | 10/21/ | Office | Cardiology | Nav Foley, | | | 2019 | Visit | | [address] | | | | | | [place] [id number] | | | | | | [phone] | | | | | | | | +--------+ + + + + documented as of this encounter Visit Diagnoses Not on filedocumented in this encounter"
--- OUTSIDE RECORDS SUMMARY | ~2019-07-23 | XMS | Encounter Summary ---
Demographics + + + | Address | [address] | | | [place] [address] | + + + | Home Phone | | + + + | Preferred Language | Unknown | + + + | Marital Status | | + + + | Nondenominational Affiliation | Unknown | + + + | Race | Unknown | + + + | Ethnic Group | Unknown | + + + Author + + + | Author | [facility] | | | and [place] | + + + | Organization | [facility] | | [...] Providers + +------+ + | Care Mold Dumper Name | Role | Phone | + [...] Chiang MD | | | | | [place], | | | | | | [place] [address] | | | | | | [phone] | | | +--------+ + + + [...] | 2019 | Visit | | [address] | | | | | | [place] | | | | | | [address] | | | | | | | [...] | | | | | [place] [address] | | | | | | [phone] | | | | | | | | +--------+ + + + + | 10/21/ | Office | Cardiology | Nav Foley, | | | 2019 | Visit | | [address] | | | | | | [place] [address] | | | | | | [phone] | | | | | | | | +--------+ + + + + documented as of this encounter Visit Diagnoses Not on filedocumented in this encounter"
--- OUTSIDE RECORDS SUMMARY | ~2019-07-23 | XMS | Encounter Summary ---
Demographics + + + | Address | [address] | | | [place] [address] | + + + | Home Phone | | + + + | Preferred Language | Unknown | + + + | Marital Status | | + + + | Sikhism Affiliation | Unknown | + + + | Race | Unknown | + + + | Ethnic Group | Unknown | + + + Author + + + | Author | [facility] | | | and [place] | + + + | Organization | [facility] | | | [...] Team Providers + +------+ + | Care Bulk Sealer Name | Role | Phone | + +------+ + | Carla Murphy | PCP | | | PA-C | | | + +------+ + Encounter Details +--------+ + + + + | Date | Type | Department | Care Team | Description | +--------+ + + + + | 03/26/ | Hospital | [facility] | Conversion | Unknown cause of | | 2016 | Encounter | CONVERSION [address] | Transaction, | injury | | | | [address] | Provider Unknown | | | | | [place], [place] | [phone] | | | | | [address] | (Fax) | | | | | [phone] | | | +--------+ + + + [...] [place] | | | | | | [address] | | | | | | | [...] F | | | | | | [place] [address] | | | | | | [phone] | | | | | | | | +--------+ + + + + | 10/21/ | Office | Cardiology | Nav Foley, | | | 2019 | Visit | | [address] | | | | | | [place] [address] | | | | | | [phone] | | | | | | | [...]
--- OUTSIDE RECORDS SUMMARY | ~2019-07-23 | XMS | Encounter Summary ---
Demographics + + + | Address | [address] | | | [place] [address] | + + + | Home Phone [...] Team Providers + +------+ + | Care Supervisor Blood Name | Role | Phone | + +------+ + | Crala Murphy | PCP | | | PA-C [...] MD | oximetry) | | | | [place], | | | | | | [place] [address] | | | | | | [phone] | | | +--------+ + + + [...] [place] | | | | | | [address] | | | | | | | [...] [place] | | | | | | [place] [address] | | | | | | [phone] | | | | | | | | +--------+ + + + + | 10/21/ | Office | Cardiology | Nav Foley, | | | 2019 | Visit | | [address] | | | | | | [place] [address] | | | | | | [phone] | | | | | | | [...]
--- OUTSIDE RECORDS SUMMARY | ~2019-07-23 | XMS | Encounter Summary ---
Demographics + + + | Address | [address] | | | [place] [address] | + + + | Home Phone | | + + + | Preferred Language | Unknown | + + + | Marital Status | | + + + | Confucianism Affiliation | Unknown | + + + | Race | Unknown | + + + | Ethnic Group | Unknown | + + + Author + + + | Author | [facility] | | | and [place] | + + + | Organization | [facility] | | | and [...] Team Providers + +------+ + | Care Plumber Gasfitter Name | Role | Phone | + +------+ + | Carla Murphy | PCP | | | PA-C | | | + +------+ + Encounter Details +--------+ + + + + | Date | Type | Department | Care Team | Description | +--------+ + + + + | 05// | Orders Only | [facility] | Gretchen Joy, | | | 2017 | | CARDIOLOGY [place] Donato MD [address] | | | | | [address] | [place], [place] | | | | | [place], [place] | [address] | | | | | [address] | | | | | | [phone] | | | +--------+ + + + [...] [place] | | | | | | [address] | | | | | | | [...] F | | | | | | [place] [address] | | | | | | [phone] | | | | | | | | +--------+ + + + + | 10/21/ | Office | Cardiology | Nav Foley, | | | 2019 | Visit | | [address] | | | | | | [place] [address] | | | | | | [phone] | | | | | | | [...]
--- OUTSIDE RECORDS SUMMARY | ~2019-07-23 | XMS | Encounter Summary ---
Demographics + + + | Address | [address] | | | [place] [address] | + + + | Home Phone [...] Team Providers + +------+ + | Care Master [employer]acht Name | Role | Phone | + [...] + + | 07/02/ | Telephone | [facility] | Constantin Chavez, | Cardiac Problem | | 2019 | | CARDIOLOGY [place] | [address] | | | | | [address] | [place], [place] | | | | | [place], [place] | [address] | | | | | [address] | | | | | | [phone] | | | +--------+ + + + [...] [place] | | | | | | [address] | | | | | | | [...] | | | | | [place] [address] | | | | | | [phone] | | | | | | | | +--------+ + + + + | 10/21/ | Office | Cardiology | Nav Foley, | | | 2019 | Visit | | [address] | | | | | | [place] [address] | | | | | | [phone] | | | | | | | | +--------+ + + + + documented as of this encounter Visit Diagnoses Not on filedocumented in this encounter"
--- OUTSIDE RECORDS SUMMARY | ~2019-07-23 | XMS | Encounter Summary ---
Demographics + + + | Address | [address] | | | [place] [address] | + + + | Home Phone [...] Providers + +------+ + | Care Core Manager Name | Role | Phone | + +------+ + PCP | Unavailable | + +------+ + Encounter Details +--------+ + + + + | Date | Type | Department | Care Team | Description | +--------+ + + + + | 09/17/ | Hospital | [facility] | Conversion | | | 2014 | Encounter | [facility] | Transaction, | | | | | CLINIC [address] | Provider Unknown | | | | | [place], [place] | [phone] | | | | | [address] | | | | | | [phone] | | | +--------+ + + + [...] [place] | | | | | | [address] | | | | | | | [...] [place] | | | | | | [place] [address] | | | | | | [phone] | | | | | | | | +--------+ + + + + | 10/21/ | Office | Cardiology | Nav Foley, | | | 2019 | Visit | | MD [address] | | | | | | [place] [address] | | | | | | [phone] | | | | | | | [...] EXTERNAL LAB | | Testing performed at [address];[place] [address] MRSA PCR | | | NEGATIVE Testing performed at | | | [address];[place] [address] | | + + + + +---------+ [...] LAB | | | | Blvd;[place] [address] | | | | + + + + + + | Antibody | NEGATIVE | | EXTERNAL | | | Screen | | | LAB | | + + + + + + | Antibody | Testing performed at | | EXTERNAL | | | Screen | [facility];[address] [place] [address] | | LAB | | | | Blvd;[place] [address] | | | | + + + [...] | | | Patient | performed at [facility];[address] | | LAB | | | | [address];[place], [place] | | | | | | [address] | | | | + + + [...] | | | | | performed at [facility];[address] | | | | | | [address]ann[address];[place], [place] | | | | | | [address] | | | | + + + [...] | | | | | [place] [address] | | | | + + + + + + | RED CELL | 5.03Comment: Testing | 4.20 - 5.70 | EXTERNAL | | | COUNT | performed at [facility], [address] | M/uL | LAB | | | | [address], | | | | | | [place] [address] | | | | + + + + + + | Hgb | 15.5Comment: Testing | 13.2 - 17.0 | EXTERNAL | | | | performed at [facility], [address] | g/dL | LAB | | | | [address], | | | | | | [place] [address] | | | | + + + + + + | Hematocrit, | 45.4Comment: Testing | 39.0 - 50.0 % | EXTERNAL | | | POC | performed at [facility], [address] | | LAB | | | | [address], | | | | | | [place] [address] | | | | + + + + + + | MCV | 90.1Comment: Testing | 80.0 - 100.0 fl | EXTERNAL | | | | performed at [facility], [address] | | LAB | | | | [address], | | | | | | [place] [address] | | | | + + + + + + | MCH | 30.8Comment: Testing | 27.0 - 34.0 pg | EXTERNAL | | | | performed at [facility], [address] | | LAB | | | | [address], | | | | | | [place] [address] | | | | + + + + + + | MCHC | 34.2Comment: Testing | 32.0 - 35.5 | EXTERNAL | | | | performed at [facility], [address] | g/dL | LAB | | | | [address], | | | | | | [place] [address] | | | | + + + + + + | RDW-CV | 43.3Comment: Testing | 37 - 53 fl | EXTERNAL | | | | performed at [facility], [address] | | LAB | | | | [address], | | | | | | [place] [address] | | | | + + + + + + | Platelet | 227Comment: Testing | 150 - 400 K/uL | EXTERNAL | | | Count | performed at [facility], [address] | | LAB | | | Plasma | [address], | | | | | | [place] [address] | | | | + + + + + + | MPV | 8.6Comment: Testing | fl | EXTERNAL | | | | performed at [facility], [address] | | LAB | | | | [address], | | | | | | [place], [place] [address] | | | | + + + + + + | Differentia | MANUALComment: Testing | | EXTERNAL | | | l Type | performed at [facility], [address] | | LAB | | | | [address], | | | | | | [place], [place] [address] | | | | + + + + + + | Segmented | 83Comment: Testing | % | EXTERNAL | | | Neutrophils | performed at [facility], [address] | | LAB | | | Manual | [address], | | | | | | [place] [address] | | | | + + + + + + | Lymphocytes | 11Comment: Testing | % | EXTERNAL | | | Manual | performed at [facility], [address] | | LAB | | | | [address], | | | | | | [place] [address] | | | | + + + + + + | Monocytes | 5Comment: Testing | % | EXTERNAL | | | Manual | performed at [facility], [address] | | LAB | | | | [address], | | | | | | [place] [address] | | | | + + + + + + | Eosinophils | 1Comment: Testing | % | EXTERNAL | | | Manual | performed at [facility], [address] | | LAB | | | | [address], | | | | | | [place] [address] | | | | + + + + + + | Absolute | 12.2 (H)Comment: Testing | 1.9 - 7.4 K/uL | EXTERNAL | | | Neutrophils | performed at [facility], [address] | | LAB | | | | [address], | | | | | | [place] [address] | | | | + + + + + + | Absolute | 1.6Comment: Testing | 1.0 - 3.9 K/uL | EXTERNAL | | | Lymphocytes | performed at [facility], [address] | | LAB | | | | [address], | | | | | | [place] [address] | | | | + + + + + + | Absolute | 0.7Comment: Testing | 0 - 0.8 K/uL | EXTERNAL | | | Monocytes | performed at [facility], [address] | | LAB | | | | [address], | | | | | | [place] [address] | | | | + + + + + + | Absolute | 0.1Comment: Testing | 0 - 0.5 K/uL | EXTERNAL | | | Eosinophils | performed at [facility], [address] | | LAB | | | | [address], | | | | | | [place] [address] | | | | + + + + + + | RBC | RBC AND PLT MORPHOLOGY | | EXTERNAL | | | Morphology | APPEAR NORMALComment: | | LAB | | | | Testing performed at | | | | | | [facility], [address] [facility] | | | | | | [place], [place] | | | | | | [address] | | | | + + + [...] | | | | | [place] [address] | | | | + + + + + + | K | 4.2Comment: Testing | 3.5 - 4.9 | EXTERNAL | | | | performed at [facility], [address] | mmol/L | LAB | | | | [address], | | | | | | [place] [address] | | | | + + + + + + | Cl | 98 (L)Comment: Testing | 99 - 109 mmol/L | EXTERNAL | | | | performed at [facility], [address] | | LAB | | | | [address], | | | | | | [place] [address] | | | | + + + + + + | CO2 | 31Comment: Testing | 23 - 32 mmol/L | EXTERNAL | | | | performed at [facility], [address] | | LAB | | | | [address], | | | | | | [place] [address] | | | | + + + + + + | Anion Gap | 9Comment: Testing | 5 - 20 mmol/L | EXTERNAL | | | | performed at [facility], [address] | | LAB | | | | [address], | | | | | | [place] [address] | | | | + + + + + + | Glucose, | 115 (H)Comment: Testing | 65 - 99 mg/dL | EXTERNAL | | | Fasting | performed at [facility], [address] | | LAB | | | | [address], | | | | | | [place] [address] | | | | + + + + + + | BUN | 16Comment: Testing | 8 - 25 mg/dL | EXTERNAL | | | | performed at [facility], [address] | | LAB | | | | [address], | | | | | | [place] [address] | | | | + + + + + + | Creatinine | 0.98Comment: Testing | 0.70 - 1.30 | EXTERNAL | | | | performed at [facility], [address] | mg/dL | LAB | | | | [address], | | | | | | [place] [address] | | | | + + + + + + | BUN/Creatin | 16Comment: Testing | | EXTERNAL | | | ine Ratio | performed at [facility], [address] | | LAB | | | | [address], | | | | | | [place] [address] | | | | + + + + + + | Calcium | 9.9Comment: NOTE NEW | 8.5 - 10.5 | EXTERNAL | | | | REFERENCE RANGETesting | mg/dL | LAB | | | | performed at [facility], [address] | | | | | | [facility], | | | | | | [place] [address] | | | | + + + [...] | | | | | | at [facility], [address] | | | | | | [facility], | | | | | | [place] [address] | | | | + + + [...]
--- OUTSIDE RECORDS SUMMARY | ~2019-07-23 | XMS | Encounter Summary ---
Demographics + + + | Address | [address] | | | [place] [address] | + + + | Home Phone [...] Author | [facility] [...] Team Providers + +------+ + | Care Export Agent Name | Role | Phone | + [...] MD | diaphragm | | | | [place], | | | | | | [place] [address] | | | | | | [phone] | | | +--------+ + + + [...] | | | | | [place] | | | | | | [address] | | | | | | | [...] ELIAS | | | | | | [place] [address] | | | | | | [phone] | | | | | | | | +--------+ + + + + | 10/21/ | Office | Cardiology | Nav Foley, | | | 2019 | Visit | | [address] | | | | | | [place] [address] | | | | | | [phone] | | | | | | | | +--------+ + + + + documented as of this encounter Visit Diagnoses + + | Diagnosis | + + | Elevated left diaphragm Disorders of diaphragm | + + documented in this encounter"
--- OUTSIDE RECORDS SUMMARY | ~2019-07-23 | XMS | Encounter Summary ---
Demographics + + + | Address | [address] | | | [place] [address] | + + + | Home Phone | | + + + | Preferred Language | Unknown | + + + | Marital Status | | + + + | Caodaism Affiliation | Unknown | + + + | Race | Unknown | + + + | Ethnic Group | Unknown | + + + Author + + + | Author | [facility] | | | and [place] | + + + | Organization | [facility] | | [...] Team Providers + +------+ + | Care Surveyor Helper Name | Role | Phone | + +------+ + PCP | Unavailable | + +------+ + Encounter Details +--------+ + + + + | Date | Type | Department | Care Team | Description | +--------+ + + + + | 11/05/ | Hospital | [facility] | Elder Cooper MD | Unspecified Chest | | 2008 | Encounter | [facility] | [address] | Pain | | | | CLINICAL DECISION | [address] | | | | | [address] | [place], [place] | | | | | [place], [place] | [address] | | | | | [address] | [phone] | | | | | [phone] | | | +--------+ + + + [...] | 07/30/ | Office | Cardiology | Bird, Mary C, ANP | | | 2018 | Visit | | [address] | | | | | | [place] | | | | | | [address] | | | | | | | | +--------+ + + + + | 07/30/ | Procedure | Cardiology | | | | 2018 | visit | | | | +--------+ + + + + | 09/01/ | Office | Cardiology | Poppy Rodriguez | | | 2019 | Visit | | [address] | | | | | | [address] [place] | | | | | | [place] [address] | | | | | | [phone] | | | | | | | | +--------+ + + + + | 10/21/ | Office | Cardiology | Nav Foley, | | | 2019 | Visit | | MD [address] | | | | | | [place] [address] | | | | | | [phone] | | | | | | | [...] Performed At | + + + | [id number] | | | Page 1 CARDIOLOGY | | | [facility] [address]/ | | | [facility] | | | CENTER NAME: [place]BER [place], [place] | | | [address] | | | | | | DATE OF : 1945 | | | ORDER NUMBER: [id number] EXAM DATE/TIME: 11/05/2008 08:22 A | | [...] | | | 1% lidocaine solution. A 6-Portuguese arterial sheath was inserted into | | | the right common femoral artery using a modified Seldinger technique. | | | A 6-Portuguese pigtail catheter was advanced over the guidewire [...] was exchanged over the guidewire by a 6-Portuguese JL4 catheter that was | | | [...] a | | | guidewire by a 6-Portuguese right coronary artery (RCA) Waqar catheter | [...] 01:39 P A | | | P VT//[id number]/ cc: ELDER COOPER MD | | | RYAN FREY MD | | + + + + + | Procedure Note | + + | David Mckeon - 04/14/2019 4:31 AM PDT | | [id number] Page 1 | | CARDIOLOGY CD 11640/ | | OPS | | [facility] NAME: FRANCI VELÁZQUEZ | | [place] [address] | | | | DATE OF : 1945 | | | | ORDER NUMBER: [id number] | | EXAM DATE/TIME: 11/05/2008 08:22 A [...] 10 mL of 1% lidocaine solution. A 6-Portuguese arterial | | sheath was inserted into the right common femoral artery using a | | modified Seldinger technique. A 6-Portuguese pigtail catheter was advanced | | over [...] was exchanged over the guidewire by a 6-Portuguese JL4 | | catheter that was advanced over the guidewire under fluoroscopy and | | engaged to the left main artery. Dye was injected into the left coronary | | system, and multiple angiographic pictures of the left coronary system | | were taken in multiple projections. The JL4 catheter was exchanged over | | a guidewire by a 6-Portuguese right coronary artery (RCA) Waqar catheter | [...] | A | | P | | ONI/dolly/[id number]/ | | cc: ELDER COOPER MD | | RYAN FREY MD | + + documented in this encounter Visit Diagnoses + + | Diagnosis | + + | Chest pain, unspecified | + + documented in this encounter"
--- OUTSIDE RECORDS SUMMARY | ~2019-07-23 | XMS | Encounter Summary ---
Demographics + + + | Address | [address] | | | [place] [address] | + + + | Home Phone | | + + + | Preferred Language | Unknown | + + + | Marital Status | | + + + | Muslim Affiliation | Unknown | + + + | Race | Unknown | + + + | Ethnic Group | Unknown | + + + Author + + + | Author | [facility] | | | and [place] | + + + | Organization | [facility] | | [...] Team Providers + +------+ + | Care Internal Revenue Agent Name | Role | Phone | + +------+ + PCP | Unavailable | + +------+ + Encounter Details +--------+ + + + + | Date | Type | Department | Care Team | Description | +--------+ + + + + | 01/27/ | Hospital | [facility] | Raiza Cote, | Cardiac pacemaker in | | 2009 - | Encounter | MEDICAL CENTER | MD [address] | situ | | | | CLINICAL DECISION | [address] [place] | | | 01/28/ | | [address] | [address] | | | 2009 | | [place], [place] | [phone] | | | | | [address] | | | | | | [phone] | | | +--------+ + + + [...] [place] | | | | | | [address] | | | | | | | [...] | | | | | [place] [address] | | | | | | [phone] | | | | | | | | +--------+ + + + + | 10/21/ | Office | Cardiology | Nav Foley, | | | 2019 | Visit | | MD [address] | | | | | | [place] [address] | | | | | | [phone] | | | | | | | [...] Performed At | + + + | [facility] [address] Ph: | | | Patient Name: FRANCI VELÁZQUEZ Date of : | | | 1945 Medical Record: [id number] Account: [id number] | | | Exam Date/Time: 01/27/2010 17:00 [...] - 04/13/2019 7:29 PM PDT | | [facility] | | [facility] [address] | | | | | | Patient Name: FRANCI VELÁZQUEZ | | Date of : 1945 | | Medical Record: [id number] | | Account: [id number] | | | | | | Exam [...] Performed At | + + + | [facility] [address] Ph: | | | Patient Name: FRANCI VELÁZQUEZ Date of : | | | 1945 Medical Record: [id number] Account: [id number] | | | Exam Date/Time: 01/27/2010 14:54 [...] - 04/13/2019 7:29 PM PDT | | [facility] | | [facility] [address] | | | | | | Patient Name: FRANCI VELÁZQUEZ | | Date of : 1945 | | Medical Record: [id number] | | Account: [id number] | | | | | | Exam [...] Performed At | + + + | [id number] [facility] | | | [facility] [address] | | | , | | | CARDIOLOGY Patient Name: FRANCI VELÁZQUEZ Date of : | | | 1945 Medical Record: [id number] Account: [id number] | | | [facility] [address]/ Exam Date/Time: 01/27/2010 | | | 01:00 [...] | | DESCRIPTION OF PROCEDURE Implantation of LIBRARY HELPER/ICD was recommended. | | | Informed consent [...] cm, serial number | | | is [id number]. We found a suitable position in the [...] Medtronic 4195, serial number | | | [id number]. The right atrial lead is a Medtronic 5076, length | | | is 52 cm, serial number is [id number]. We found a suitable position | | [...] | | | delivery system using the RecordSled universal slitter. | | | Fluoroscopically, lead position remained stable. In VINCENTIAN projection, | | | we adjusted the amount of redundancy on the lead and sutured it in | | | place. We then removed wires and stylets. We irrigated the pocket. | | | We then took the device which is a RecordSled [id number], serial number | | | [id number]. We connected all 3 leads to the [...] 09:43 A P P | | | EDMUND/mehul/[id number]/cg | | + + + + + | Procedure Note | + + | David Mckeon Conversion - 04/13/2019 7:29 PM PDT | | [id number] | | [facility] | | [facility] [address] | | , | | CARDIOLOGY | | | | Patient Name: FRANCI VELÁZQUEZ | | Date of : 1945 | | Medical Record: [id number] | | Account: [id number] | | OPS/CDU [address]/ | | | | | | Exam [...] DESCRIPTION OF PROCEDURE | | Implantation of LIBRARY HELPER/ICD was recommended. Informed consent was obtained. | [...] 65 cm, serial | | number is [id number]. We found a suitable position in the [...] lead is a Medtronic 4195, serial number [id number]. | | | | | | The right atrial lead is a Medtronic 5076, length is 52 cm, serial | | number is [id number]. We found a suitable position in the [...] slitter. Fluoroscopically, lead position remained stable. In VINCENTIAN | | projection, we adjusted the amount of redundancy on the lead and sutured | | it in place. | | | | We then removed wires and stylets. We irrigated the pocket. We then took | | the device which is a RecordSled [id number], serial number [id number]. We | | connected all 3 leads [...] | Electronically Signed by | | RAIZA CTOE MD 02/08/2010 09:43 A | | P | | P | | EDMUND/mehul/[id number]/cg | + + documented in this encounter Visit Diagnoses + + | Diagnosis | + + | Cardiac pacemaker in situ | + + documented in this encounter"
--- OUTSIDE RECORDS SUMMARY | ~2019-07-23 | XMS | Encounter Summary ---
Demographics + + + | Address | [address] | | | [place] [address] | + + + | Home Phone [...] Team Providers + +------+ + | Care Enterprise Infrastructure Architect Name | Role | Phone | + +------+ + PCP | Unavailable | + +------+ + Encounter Details +--------+ + + + + | Date | Type | Department | Care Team | Description | +--------+ + + + + | 09/17/ | Hospital | [facility] | Conversion | | | 2015 | Encounter | [facility] X[facility] | Transaction, | | | | | [address] | Provider Unknown | | | | | [place] | [phone] | | | | | [address] | | | | | | [phone] | | | +--------+ + + + [...] [place] | | | | | | [address] | | | | | | | [...] [place] | | | | | | [place] [address] | | | | | | [phone] | | | | | | | | +--------+ + + + + | 10/21/ | Office | Cardiology | Nav Foley, | | | 2019 | Visit | | [address] | | | | | | [place] [address] | | | | | | [phone] | | | | | | | | +--------+ + + + + documented as of this encounter Visit Diagnoses Not on filedocumented in this encounter"
--- OUTSIDE RECORDS SUMMARY | ~2019-07-23 | XMS | Encounter Summary ---
Demographics + + + | Address | [address] | | | [place] [address] | + + + | Home Phone | | + + + | Preferred Language | Unknown | + + + | Marital Status | | + + + | Rastafari Affiliation | Unknown | + + + | Race | Unknown | + + + | Ethnic Group | Unknown | + + + Author + + + | Author | [facility] | | | and [place] | + + + | Organization | [facility] | | [...] Providers + +------+ + | Care Coin Teller Name | Role | Phone | + +------+ + PCP | Unavailable | + +------+ + Encounter Details +--------+ + + + + | Date | Type | Department | Care Team | Description | +--------+ + + + + | 11/05/ | Hospital | [facility] | Elder Cooper MD | Unspecified Chest | | 2008 | Encounter | [facility] | [address] | Pain | | | | CLINICAL DECISION | [address] | | | | | [address] | [place], [place] | | | | | [place], [place] | [address] | | | | | [address] | [phone] | | | | | [phone] | | | +--------+ + + + [...] [place] | | | | | | [address] | | | | | | | [...] | | | | | [place] [address] | | | | | | [phone] | | | | | | | | +--------+ + + + + | 10/21/ | Office | Cardiology | Nav Foley, | | | 2019 | Visit | | MD [address] | | | | | | [place] [address] | | | | | | [phone] | | | | | | | [...] Performed At | + + + | [id number] | | | Page 1 CARDIOLOGY | | | [facility] [address]/ | | | O[facility] | | | CENTER NAME: EBER [place]CI [place], [place] | | | [address] | | | | | | DATE OF : 1945 | | | ORDER NUMBER: [id number] EXAM DATE/TIME: 11/05/2008 08:22 A | | [...] | | | 1% lidocaine solution. A 6-Comoran arterial sheath was inserted into | | | the right common femoral artery using a modified Seldinger technique. | | | A 6-Comoran pigtail catheter was advanced over the guidewire [...] was exchanged over the guidewire by a 6-Comoran JL4 catheter that was | | | [...] a | | | guidewire by a 6-Comoran right coronary artery (RCA) Waqar catheter | [...] 01:39 P A | | | P NH//[id number]/ cc: ELDER COOPER MD | | | RYAN FREY MD | | + + + + + | Procedure Note | + + | David Mckeon - 04/14/2019 4:31 AM PDT | | [id number] Page 1 | | CARDIOLOGY CD [address]/ | | OPS | | [facility] NAME: FRANCI VELÁZQUEZ | | [place] [address] | | | | DATE OF : 1945 | | | | ORDER NUMBER: [id number] | | EXAM DATE/TIME: 11/05/2008 08:22 A [...] 10 mL of 1% lidocaine solution. A 6-Comoran arterial | | sheath was inserted into the right common femoral artery using a | | modified Seldinger technique. A 6-Comoran pigtail catheter was advanced | | over [...] was exchanged over the guidewire by a 6-Comoran JL4 | | catheter that was advanced over the guidewire under fluoroscopy and | | engaged to the left main artery. Dye was injected into the left coronary | | system, and multiple angiographic pictures of the left coronary system | | were taken in multiple projections. The JL4 catheter was exchanged over | | a guidewire by a 6-Comoran right coronary artery (RCA) Waqar catheter | [...] right posterior descending artery (PDA), posterolateral artery (ELILE) | | and 1 right ventricular (RV) [...] | A | | P | | ONI/dolly/[id number]/ | | cc: ELDER COOPER MD | | RYAN FREY MD | + + documented in this encounter Visit Diagnoses + + | Diagnosis | + + | Chest pain, unspecified | + + documented in this encounter"
--- OUTSIDE RECORDS SUMMARY | ~2019-07-23 | XMS | Encounter Summary ---
Demographics + + + | Address | [address] | | | [place] [address] | + + + | Home Phone [...] Team Providers + +------+ + | Care Stapler Hand Name | Role | Phone | + [...] | PULMONARY [address] RN | ([facility]) | | | | [place], | | | | | | [place] [address] | | | | | | [phone] | | | +--------+ + + + [...] | | | | | [address] [place] | | | | | | [address] | | | | | | | [...] F | | | | | | [place] [address] | | | | | | [phone] | | | | | | | | +--------+ + + + + | 10/21/ | Office | Cardiology | Nav Foley, | | | 2019 | Visit | | [address] | | | | | | [place] [address] | | | | | | [phone] | | | | | | | | +--------+ + + + + documented as of this encounter Visit Diagnoses + + | Diagnosis | + + | Panlobular emphysema (HCC) Other emphysema | + + documented in this encounter"
--- OUTSIDE RECORDS SUMMARY | ~2019-07-23 | XMS | Encounter Summary ---
Demographics + + + | Address | [address] | | | [place] [address] | + + + | Home Phone | | + + + | Preferred Language | Unknown | + + + | Marital Status | | + + + | Gnosticist Affiliation | Unknown | + + + | Race | Unknown | + + + | Ethnic Group | Unknown | + + + Author + + + | Author | [facility] | | | and [place] | + + + | Organization | [facility] | | [...] Team Providers + +------+ + | Care Machine Heel Seat Fitter Name | Role | Phone | + +------+ + PCP | Unavailable | + +------+ + Encounter Details +--------+ + + + + | Date | Type | Department | Care Team | Description | +--------+ + + + + | 09/23/ | Hospital | [facility] | Vincent Fields MD | AAA (abdominal | | 2015 - | Encounter | [facility] | [address] | aortic aneurysm) | | | | CARE FLOOR [address] | [place], [place] | ([facility]) | | 09/24/ | | [address] | [address] | | | 2014 | | [place] | [phone] | | | | | [address] | | | | | | [phone] | | | +--------+ + + + [...] documented as of this encounter Discharge Summaries Ingrid Morris ARNP - 09/24/2014 9:19 AM PSTFormatting of this note might be different f rom the original. Discharge Summaries by MORRO Arboleda at 09/24/14918 Author: MORRO Arboleda Service: Vascular Surgery Author Type: Advanced Registered N simin Practitioner Filed: 09/24/14 1537 Date of Service: 09/24/14918 Status: Signed Director Maternal Child: MORRO Arboleda (Mario Registered Nurse Practitioner) [facility] Service: Vascular Surgery Discharge Summary Date of Admission: 09/23/2014 Date of Discharge: 09/24/2014 Discharge Provider: MORRO Arboleda Treatment Team: Admitting Provider: Vincent Fields MD Discharge Diagnoses: Active Problems: AAA (abdominal aortic aneurysm) S/P AAA repair Resolved Problems: * No resolved hospital problems. * Final Diagnoses: S/P AAA repair, COPD Procedures: Procedure(s): AORTIC - ENDOGRAFT Significant Diagnostic Studies: N/A BRIEF HISTORY OF PRESENTATION: Mr. Abraham is a pleasant 69 y.o. male with PMH of COPD who is referred to me for a n AAA. Patient had received a CTA abdomen pelvis on 09/16/2014 which showed an aneurysm measu ring 6.8 cm. We have discussed endovascular repair with stent graft and patient would like t o proceed. HOSPITAL COURSE: Stent graft placed- stable intraop and immed post op and to CU post inter vention POD 1 stable H/H, VSS will DC home Past Medical History Diagnosis Date Enlarged heart COPD (chronic obstructive pulmonary disease) Pacemaker [place] (hard of hearing) Past Surgical History Procedure Laterality Date Pacemaker insertion 01/22/2014 Appendectomy Hernia repair Tumor removal head and neck Hand surgery tube put in to drain infection. Was put out for it as a child Allergies Allergen Reactions Codeine Anaphylaxis and Other (See Comments) Heart stops Demerol [Meperidine] Other (See Comments) and Angioedema Heart stops Norflex [Orphenadrine] Anaphylaxis and Other (See Comments) Heart stops Nitroglycerin Other (See Comments) Liquid nitro Heart stops Penicillins Rash Percodan [Oxycodone-Aspirin] Other (See Comments) Heart Stops Prescriptions prior to admission Medication Sig Dispense Refill aspirin 81 MG EC tablet Take 81 mg by mouth daily. lisinopril (ZESTRIL) 5 MG tablet Take 1 tablet by mouth daily. 90 tablet 2 metoprolol (TOPROL-XL) 25 MG 24 hr tablet Take 12.5 mg by mouth daily. spironolactone (ALDACTONE) 25 MG tablet Take 1 tablet by mouth daily. 90 tablet 2 DISCHARGE EXAM Vital Signs: BP 146/69 | Pulse 72 | Temp(Src) 98.2 F (36.8 C) (Oral) | Resp 18 | Ht 1.778 m (5' 10") | Wt 123.9 kg (273 lb 2.4 oz) | BMI 39.19 kg/m2 | SpO2 94% Temp: [97.4 F (36.3 C)-98.2 F (36.8 C)] 98.2 F (36.8 C) (09/24 856) BP: (65-146)/(32-83) 146/69 mmHg (09/24 856) Heart Rate: [64-110] 72 (09/24 856) Resp: [6-26] 18 (09/24 856) SpO2: [92 %-98 %] 94 % (09/24 856) Height: [177.8 cm (5' 10")] 177.8 cm (5' 10") (09/23 1122) Weight: [117.935 kg (260 lb)-123.9 kg (273 lb 2.4 oz)] 123.9 kg (273 lb 2.4 oz) (09/24 6) BMI (Calculated): [37.4] 37.4 (09/23 1122) FiO2 : [95 %-100 %] 99 % (09/23 144) I&O Last 3 Shifts: 09/22 1900 - 09/24 0659 In: 2655 [P.O.:100; I.V.:2555] Out: 2450 [Urine:2450] Physical Exam Vitals reviewed. Constitutional: Patient appears well-developed and well-nourished. HENT: Head: Normocephalic and atraumatic. Mouth/Throat: Oropharynx is clear and moist. Cardiovascular: Normal rate and regular rhythm. Pulmonary/Chest: Effort normal and breath sounds normal. Abdominal: Soft. Bowel sounds are normal. Musculoskeletal: Normal range of motion. Neurological: Patient is alert and oriented to person, place, and time. Skin: Skin is warm and dry. Vascular: Palp femoral pulses and DP pulses DATA CBC: Lab Results Component Value Date WBC 23.6* 09/24/2014 RBC 4.36 09/24/2014 HGB 13.4 09/24/2014 HCT 39.7 09/24/2014 MCV 91.0 09/24/2014 MCH 30.8 09/24/2014 MCHC 33.9 09/24/2014 RDW 44.6 09/24/2014 PLT 227 09/24/2014 MPV 8.8 09/24/2014 DIFFTYPE MANUAL 09/24/2014 BMP: Lab Results Component Value Date NA 133* 09/24/2014 K 4.2 09/24/2014 CL 101 09/24/2014 CO2 28 09/24/2014 ANIONGAP 8 09/24/2014 GLUF 183* 09/24/2014 BUN 12 09/24/2014 CREATININE 0.81 09/24/2014 BCR 15 09/24/2014 CA 8.3* 09/24/2014 EGFR >60 09/24/2014 PLAN CTA in 2 weeks Post op appt 2 weeks F/U with primary 1 week Disposition: Home Condition: Stable Code Status: Full Code No discharge procedures on file. Follow up: Eloy Diez MD [address] [address] Vincent Fields MD [address] [place] [address] In 2 weeks post op appointment and review ct scan Medication List START taking these medications HYDROcodone-acetaminophen 5-325 MG per tablet QTY: 30 tablet Refills: 0 Commonly known as: NORCO Take 1-2 tablets by mouth every 6 (six) hours as needed for Pain. CONTINUE taking these medications aspirin 81 MG EC tablet Refills: 0 lisinopril 5 MG tablet QTY: 90 tablet Refills: 2 Commonly known as: ZESTRIL Take 1 tablet by mouth daily. metoprolol 25 MG 24 hr tablet Refills: 0 Commonly known as: TOPROL-XL spironolactone 25 MG tablet QTY: 90 tablet Refills: 2 Commonly known as: ALDACTONE Take 1 tablet by mouth daily. Where to Get Your Medications These are the prescriptions that you need to rock picker. You may get the following medications from any pharmacy - HYDROcodone-acetaminophen 5-325 MG per tablet Discharge took 35 minutes, to include final examination, discussion of admission, and preparation of prescrip tions, instructions for on-going care, follow-up and documentation of discharge summary. MORRO Arboleda 09/24/2014 documented in this encounter Progress Notes Conversion Transaction, Provider Unknown - 09/24/2014 3:17 PM PSTFormatting of this note m ight be different from the original. Nurse Progress Note by Mirna Donato RN at 09/24/14 1517 Author: Mirna Donato RN Service: (none) Author Type: Registered Nurse Filed: 09/24/14 1518 Date of Service: 09/24/14 1517 Status: Signed Director Maternal Child: Mirna Donato RN (Registered Nurse) Pt and family received dc instruct verbal and written. They stated understanding. onver chetna Transaction, Provider Unknown - 09/24/2014 10:48 AM PST Therapy Progress Note by Waldemar Floyd PT at 09/24/14 1048 Author: Waldemar Floyd PT Service: (none) Author Type: Physical Therapist Filed: 09/24/14 1146 Date of Service: 09/24/14 1048 Status: Signed Director Maternal Child: Waldemar Floyd PT (Physical Therapist) 09/24/14 1048 PT Last Visit PT Received On 09/24/14 Reason for Treatment Other (comment) (AAA repair) Requires PT Follow Up No Follow up PT Only? No PT Eval/Reassessment Date 09/24/14 Assistance Required 1 person Nuclear Station Operator Needed No Home Environment Type of Home Apartment upper level Home Exterior Layout Flight one;Rail bilateral Home Interior Layout Lives on main level with bedroom/bathroom Home Equipment Cane single point Additional Comments Pt does live alone in an apartment on the 2nd floor (notes that he has KELSEY railings he can use.) Pt has been indep with all mobility and was employed until recentl y at the [employer] in [place]. States that he has friends and neighbors that can assist if he would need it. Prior Function Level of [place] Independent with functional mobility;Independent with ADLs;Independe nt with IADLs Lives With Alone Employment Medical leave (Pt notes he may be leaving his job) Comments Pt intended to receive injections for his orthopedic condition of the hip, CT note d that he an aneurysm. Pt indep prior to this hospitalization and living alone. RLE Assessment RLE Assessment X (Arthritis of the L hip, good strength) LLE Assessment LLE Assessment X (Pain in the R LE with resistant; good strength) Cognition Overall Cognitive Status WFL Orientation Level Oriented Sensation Light Touch No apparent deficits Additional Comments Able to detect light touch sensation KELSEY Perception Inattention/Neglect Appears intact Proprioception Proprioception Not tested Assessment of Patient Status Assessment of Patient Status Pain;Decreased endurance Prognosis Should progress with skilled therapy intervention Safety Devices Safety Devices in Place Yes Type of Devices (Supine in bed w/ call light provided; RN aware) Restraints Initially in Place No Plan Treatment/Interventions Discharge skilled PT services PT Frequency Evaluation only Care Duration (# of days) 1 # of days Recommendation Recommendations Prior Setting PT Ready for Discharge Yes Recommendation Comments Pt demonstrated that he was able to complete all functional mobilit y tasks that he would need to complete following discharge. This including completing bed mo bility, transfers, gait, and a flight of stairs without requiring PT assistance physically. Pt educated on safe mobility techniques to improve safety. At this time, pt likely able to D C home safely. 09/24/14 1048 PT Last Visit PT Received On 09/24/14 Reason for Treatment Other (comment) (AAA repair) Requires PT Follow Up No Follow up PT Only? No PT Eval/Reassessment Date 09/24/14 Assistance Required 1 person Nuclear Station Operator Needed No Other Comments Comments Chart reviewed, evaluation completed. Mr. Abraham is a pleasant 69 y.o. male wi th PMH of COPD that had an AAA. Patient had received a CTA abdomen pelvis on 09/16/2014 which showed an aneurysm measuring 6.8 cm. Underwent vascular repair on 09/23. Pt supine in bed; ag reeable to evaluation. Pt notes that he has pain at the moment, but that it is tolerable. V itals at rest in supine: HR 70, BP 131/76. Pt does have a history of L hip pain (arthritic) that he was looking to receive cortisone injections for. Pt demonstrated excellent mobility skills even with the discomfort from the surgery. pt completed bed mobility/transfers/gait a nd a flight of stairs (which he will have to complete to get home) safely with verbal instru ction from PT regarding safe mobility techniques (especially with step-to on the stairs). Pt assisted back into supine at the end of session, with no new complaints. Pt likely able to return home safely at this time. Vitals after activity: HR 85, BP Cognition Overall Cognitive Status WFL Orientation Level Oriented Bed Mobility Rolling Supervison Supine to Sit Supervision Sit to Supine Supervision Transfers Sit to/from Stand Standby assist Mobility Ambulation Assistance Standby assist Maximal Ambulation Distance (feet) 150 ft Total Ambulation Distance (feet) 150 ft Distance limited by? Therapist/staff discretion Pattern Decreased adrian;Antalgic Assistive Device Cane single point Stairs Assistance Verbal instruction (CGA for safety) Number of Stairs 12 Number of stairs limited by? Therapist/staff discretion Stair Management Technique Step-to;Rail on left ascending;With cane (Verbal instruct for safety) Balance Balance Yes (Stable in standing; no loss of balance) Modalities Modalities Other therapy Other Therapy Ed on safe mobility techniques; techniques to reduce pain (splinting with pil low), and breathing techniques during mobility to improve tolerance Activity Tolerance Activity Tolerance Patient tolerated treatment without report of fatigue Nurse Made Aware RN Mirna Safety Devices Safety Devices in Place Yes Type of Devices (Supine in bed w/ call light provided; RN aware) Restraints Initially in Place No Plan Treatment/Interventions Discharge skilled PT services PT Frequency Evaluation only Care Duration (# of days) 1 # of days Recommendation Recommendations Prior Setting PT Ready for Discharge Yes Recommendation Comments Pt demonstrated that he was able to complete all functional mobilit y tasks that he would need to complete following discharge. This including completing bed mo bility, transfers, gait, and a flight of stairs without requiring PT assistance physically. Pt educated on safe mobility techniques to improve safety. At this time, pt likely able to D C home safely. Kristen Garcia Provider Unknown - 09/23/2014 7:09 PM PST Progress Notes by Yoon Michele RN at 09/23/141908 Author: Yoon Michele RN Service: (none) Author Type: Registered Nurse Filed: 09/23/141913 Date of Service: 09/23/141908 Status: Signed Director Maternal Child: Yoon Michele RN (Registered Nurse) Pt still complaining off and on of abdominal pain on RLQ. Pain level was at 5/10, then pt f ell asleep briefly, woke up and pain was 1/10, And then it increased to 3/10. Pt's BP up to 120's, gave 25 mcg fentanyl. Stabbing pain still localized to RLQ only, does not radiate t o back. Will continue to monitor. onver chetna Transaction, Provider Unknown - 09/23/2014 5:11 PM PST Progress Notes by Louise Herrera RPH at 09/23/141710 Author: Louise Herrera RPH Service: (none) Author Type: Pharmacist Filed: 09/23/141710 Date of Service: 09/23/141710 Status: Signed Director Maternal Child: Louise Herrera RPH (Pharmacist) Clinical Pharmacy Note: Renal Monitoring Jared Abraham 69 y.o. male Ht Readings from Last 1 Encounters: 09/23/14 1.778 m (5' 10") Wt Readings from Last 1 Encounters: 09/23/14 117.935 kg (260 lb) Creatinine clearance cannot be calculated (Patient's most recent sCr result is older than t he maximum 3 days allowed.) Pharmacy dosing for renal function per Dr. Fields. Currently, there are no labs. Pharmacy will adjust medications, if necessary, in AM when la bs are reported. Louise Herrera RPh 09/23/2014 5:11 PM onver chetna Transaction, Provider Unknown - 09/23/2014 5:00 PM PST Progress Notes by Yoon Michele RN at 09/23/141699 Author: Yoon Michele RN Service: (none) Author Type: Registered Nurse Filed: 09/23/14 1746 Date of Service: 09/23/141699 Status: Signed Director Maternal Child: Yoon Michele RN (Registered Nurse) Upon arrival to floor, pt was A&O, on 2L . Pt complaining of abdominal pain 11/27. Pt stat es this pain not radiating to lower back, and localizes it to RLQ only. Pt's BP 90-100-'s. P acu RN, [place], called Dr Fields and was informed to give pt po pain meds due to low BP's. Will co ntinue to monitor. onver chetna Transaction, Provider Unknown - 09/23/2014 5:00 PM PST Nurse Progress Note by Juana Hayes at 09/23/141699 Author: Juana Hayes Service: (none) Author Type: Registered Nurse Filed: 09/23/141727 Date of Service: 09/23/141699 Status: Signed Director Maternal Child: Juana Hayes Pt transferred to Cardiac Unit and bedside report given to Sabra ALLISON. In PACU repeat ACT was completed by Refinery Operator Reforming Unit RN prior to transport:. Current result 110. At 1622 pt began to c/o abdominal pain on RLQ. Pain rated 3/10. Patient given 25mcg fenta nyl IVP. SBP high 90s low 100s. Bilateral groin sites soft with small amount of bloody hussain inage on dressing. Patient dozes off after fentanyl administration and is woken to reassess pain. Patient states pain unchanged 3/10. Patient transported to room 4455 and reports increased pain in RLQ. Rates as 5/10 with occ asional stabbing pain. Patient denies pain radiates to back and is able to localize small ar ea on RLQ where pain is present. Groin sites again checked with Sabra RN and they are unchan ged. SBP low 100s. Dr. Fielsd notified of patients increase in pain via telephone: Given current SBP, groin site assessments and patients description of pain. Dr. Fields instructs to give PO medications for pain as ordered and has no further orders at this time. Dr. Fields's verbal instructions pass ed on to Sabra ALLISON. Abdominal site is marked by Mahendra ALLISON to visualize patients localization of pain. Care transferred to Cardiac Unit RN for further assessments, interventions. Juana Hayes RN docu nted in this encounter Plan of Treatment [...] [place] | | | | | | [address] | | | | | | | [...] | | | | | [place] [address] | | | | | | [phone] | | | | | | | | +--------+ + + + + | 10/21/ | Office | Cardiology | Nav Foley, | | | 2019 | Visit | | MD [address] | | | | | | [place] [address] | | | | | | [phone] | | | | | | | | +--------+ + + + + documented as of this encounter Procedures + +--------+ + + + | Procedure Name | Priori | Date/Time | Associated Diagnosis | Comments | | | ty | | | | + +--------+ + + + | EXTERNAL LAB: CBC | Routin | 09/24/2014 | | Results for this | | | e | 4:50 AM | | procedure are in the | | | | PST | | results section. | + +--------+ + + + | BASIC METABOLIC | Routin | 09/24/2014 | | Results for this | | PANEL | e | 4:50 AM | | procedure are in the | | | | PST | | results section. | + +--------+ + + + | ACTIVATED CLOTTING | Routin | 09/23/2014 | | Results for this | | TIME | e | 4:23 PM | | procedure are in the | | | | PST | | results section. | + +--------+ + + + | IR ENDOGRAFT | Routin | 09/23/2014 | | Results for this | | | e | 2:33 PM | | procedure are in the | | | | PST | | results section. | + +--------+ + + + | US GUIDED VASCULAR | Routin | 09/23/2014 | | Results for this | | ACCESS | e | 2:33 PM | | procedure are in the | | | | PST | | results section. | + +--------+ + + + | ACTIVATED CLOTTING | Routin | 09/23/2014 | | Results for this | | TIME | e | 2:23 PM | | procedure are in the | | | | PST | | results section. | + +--------+ + + + | ACTIVATED CLOTTING | Routin | 09/23/2014 | | Results for this | | TIME | e | 2:14 PM | | procedure are in the | | | | PST | | results section. | + +--------+ + + + | ACTIVATED CLOTTING | Routin | 09/23/2014 | | Results for this | | TIME | e | 1:48 PM | | procedure are in the | | | | PST | | results section. | + +--------+ + + + documented in this encounter Results External Lab: [facility] (09/24/2014 4:50 AM PST) + + + + + + | Component | Value | Ref Range | Performed | Pathologist | | | | | At | Signature | + + + + + + | WBC | 23.6 (H)Comment: Testing | 3.8 - 11.0 K/uL | EXTERNAL | | | | performed at [facility], [address] | | LAB | | | | [address], | | | | | | [place] [address] | | | | + + + + + + | RED CELL | 4.36Comment: Testing | 4.20 - 5.70 | EXTERNAL | | | COUNT | performed at [facility], [address] | M/uL | LAB | | | | [address], | | | | | | [place] [address] | | | | + + + + + + | Hgb | 13.4Comment: Testing | 13.2 - 17.0 | EXTERNAL | | | | performed at [facility], [address] | g/dL | LAB | | | | [address], | | | | | | [place] [address] | | | | + + + + + + | Hematocrit, | 39.7Comment: Testing | 39.0 - 50.0 % | EXTERNAL | | | POC | performed at [facility], [address] | | LAB | | | | [address], | | | | | | [place] [address] | | | | + + + + + + | MCV | 91.0Comment: Testing | 80.0 - 100.0 fl | EXTERNAL | | | | performed at [facility], [address] | | LAB | | | | [address], | | | | | | [place] [address] | | | | + + + + + + | MCH | 30.8Comment: Testing | 27.0 - 34.0 pg | EXTERNAL | | | | performed at [facility], [address] | | LAB | | | | [address], | | | | | | [place] [address] | | | | + + + + + + | MCHC | 33.9Comment: Testing | 32.0 - 35.5 | EXTERNAL | | | | performed at [facility], [address] | g/dL | LAB | | | | [address], | | | | | | [place] [address] | | | | + + + + + + | RDW-CV | 44.6Comment: Testing | 37 - 53 fl | EXTERNAL | | | | performed at [facility], [address] | | LAB | | | | [address], | | | | | | [place] [address] | | | | + + + + + + | Platelet | 227Comment: Testing | 150 - 400 K/uL | EXTERNAL | | | Count | performed at [facility], [address] | | LAB | | | Plasma | [address], | | | | | | [place] [address] | | | | + + + + + + | MPV | 8.8Comment: Testing | fl | EXTERNAL | | | | performed at [facility], [address] | | LAB | | | | [address], | | | | | | [place], [place] [address] | | | | + + + + + + | Differentia | MANUALComment: Testing | | EXTERNAL | | | l Type | performed at [facility], [address] | | LAB | | | | [address], | | | | | | [place] [address] | | | | + + + + + + | Segmented | 80Comment: Testing | % | EXTERNAL | | | Neutrophils | performed at [facility], [address] | | LAB | | | Manual | [address], | | | | | | [place] [address] | | | | + + + + + + | % Bands | 12Comment: Testing | % | EXTERNAL | | | | performed at [facility], [address] | | LAB | | | | [address], | | | | | | [place] [address] | | | | + + + + + + | Lymphocytes | 6Comment: Testing | % | EXTERNAL | | | Manual | performed at [facility], [address] | | LAB | | | | [address], | | | | | | [place] [address] | | | | + + + + + + | Monocytes | 2Comment: Testing | % | EXTERNAL | | | Manual | performed at [facility], [address] | | LAB | | | | [address], | | | | | | [place] [address] | | | | + + + + + + | Absolute | 18.9 (H)Comment: Testing | 1.9 - 7.4 K/uL | EXTERNAL | | | Neutrophils | performed at [facility], [address] | | LAB | | | | [address], | | | | | | [place] [address] | | | | + + + + + + | Bands | 2.8 (H)Comment: Testing | 0 - 0.2 K/uL | EXTERNAL | | | Manual | performed at [facility], [address] | | LAB | | | | [address], | | | | | | [place] [address] | | | | + + + + + + | Absolute | 1.4Comment: Testing | 1.0 - 3.9 K/uL | EXTERNAL | | | Lymphocytes | performed at [facility], [address] | | LAB | | | | [address], | | | | | | [place] [address] | | | | + + + + + + | Absolute | 0.5Comment: Testing | 0 - 0.8 K/uL | EXTERNAL | | | Monocytes | performed at [facility], [address] | | LAB | | | | [address], | | | | | | [place] [address] | | | | + + + + + + | RBC | RBC AND PLT MORPHOLOGY | | EXTERNAL | | | Morphology | APPEAR NORMALComment: | | LAB | | | | Testing performed at | | | | | | [facility], [address] | | | | | | [place] | | | | | | [address] | | | | + + + [...] + +---------+ + + Basic Metabolic Panel (09/24/2014 4:50 AM PST) + + + + + + | Component | Value | Ref Range | Performed | Pathologist | | | | | At | Signature | + + + + + + | Na | 133 (L)Comment: Testing | 135 - 143 | EXTERNAL | | | | performed at [facility], [address] | mmol/L | LAB | | | | [address], | | | | | | [place] [address] | | | | + + + + + + | K | 4.2Comment: Testing | 3.5 - 4.9 | EXTERNAL | | | | performed at [facility], [address] | mmol/L | LAB | | | | [address], | | | | | | [place] [address] | | | | + + + + + + | Cl | 101Comment: Testing | 99 - 109 mmol/L | EXTERNAL | | | | performed at [facility], [address] | | LAB | | | | [address], | | | | | | [place] [address] | | | | + + + + + + | CO2 | 28Comment: Testing | 23 - 32 mmol/L | EXTERNAL | | | | performed at [facility], [address] | | LAB | | | | [address], | | | | | | [place] [address] | | | | + + + + + + | Anion Gap | 8Comment: Testing | 5 - 20 mmol/L | EXTERNAL | | | | performed at [facility], [address] | | LAB | | | | [address], | | | | | | [place] [address] | | | | + + + + + + | Glucose, | 183 (H)Comment: Testing | 65 - 99 mg/dL | EXTERNAL | | | Fasting | performed at [facility], [address] | | LAB | | | | [address], | | | | | | [place] [address] | | | | + + + + + + | BUN | 12Comment: Testing | 8 - 25 mg/dL | EXTERNAL | | | | performed at [facility], [address] | | LAB | | | | [address], | | | | | | [place] [address] | | | | + + + + + + | Creatinine | 0.81Comment: Testing | 0.70 - 1.30 | EXTERNAL | | | | performed at [facility], [address] | mg/dL | LAB | | | | [address], | | | | | | [place] [address] | | | | + + + + + + | BUN/Creatin | 15Comment: Testing | | EXTERNAL | | | ine Ratio | performed at [facility], [address] | LAB | | | | [address], | | | | | | [place] [address] | | | | + + + + + + | Calcium | 8.3 (L)Comment: NOTE NEW | 8.5 - 10.5 | EXTERNAL | | | | REFERENCE RANGETesting | mg/dL | LAB | | | | performed at [facility], [address] | | | | | [facility], | | | | | | [place] [address] | | | | + + + [...] | | | | | | at [facility], [address] | | | | | | [facility], | | | | | | [place] [address] | | | | + + + + + + + + | Specimen | + + | Blood specimen | | (specimen) | + + + +---------+ + + | Performing | Address | City/State/Zipcode | Phone Number | | Organization | | | | + +---------+ + + | EXTERNAL LAB | | | | + +---------+ + + Activated clotting time (09/23/2014 4:23 PM PST) + + + + + + | Component | Value | Ref Range | Performed | Pathologist | | | | | At | Signature | + + + + + + | Activated | 110Comment: Testing | 74 - 137 | EXTERNAL | | | Clotting | performed at [facility];888 | seconds | LAB | | | time, POC | [address];[place], [place] | | | | | | [address] | | | | + + + + + + + + | Specimen | + + | | + + + +---------+ + + | Performing | Address | City/State/Zipcode | Phone Number | | Organization | | | | + +---------+ + + | EXTERNAL LAB | | | | + +---------+ + + IR Endograft (09/23/2014 2:33 PM PST) + + | Specimen | + + | | + + + + + | Impressions | Performed At | + + + | 1. Large 6.8 cm infrarenal abdominal aortic aneurysm excluded | | | using Endurant stent graft. 2. No endoleak seen in this case. 3. | | | Good filling of bilateral renal arteries and hypogastric arteries at | | | end of case. | | | 5:25 PM | | + + + + + + | Narrative | Performed At | + + + | Abdominal Arteriogram and Endovascular Aneurysm Repair | | | PREOPERATIVE DIAGNOSIS: 6.8 cm infrarenal abdominal aortic aneurysm | | | POSTOPERATIVE DIAGNOSIS: 6.8 cm infrarenal abdominal aortic | | | aneurysm PROCEDURE: 1. Ultrasound guided access of bilateral | | | common femoral arteries 2. Endovascular Aneurysm Repair using | | | bifurcated graft with 2 docking limbs 3. Percutaneous closure of | | | bilateral common femoral artery using the Perclose device SURGEON: | | | Vincent Fields MD SERVICE STATION OPERATOR: MORRO Arboleda ANESTHESIA: General | | | endotracheal anesthesia ESTIMATED BLOOD LOSS: Less than 100 mL | | | FLUIDS: 1500 ml crystalloids CONTRAST: 85 mL of Isovue 250 | | | INDICATIONS: Mr. Abraham is a pleasant 69-year-old male who | | | was incidentally found to have a large aneurysm on CT scan performed | | | for hip pain. Due to large size of aneurysm, he was referred to me on | | | an urgent basis for aneurysm repair. Patient elected to undergo | | | endovascular repair. FINDINGS: Large infrarenal abdominal aortic | | | aneurysm. Aneurysm excluded using 28 x 14 x 103 mm main body, 16 x 20 | | | x 156 mm ipsilateral extension, and 16 x 16 by a 156 mm contralateral | | | limb. After repair, no endoleak was seen. Good filling of bilateral | | | renal arteries and hypogastric arteries. Patient had palpable pedal | | | signals at end of case. DESCRIPTION OF PROCEDURE: The patient was | | | properly identified and brought to the [facility]forming [facility]. The patient was | | | placed supine on the [facility] table and the patient underwent general | | | endotracheal anesthesia. The patient's abdomen and bilateral groins | | | were then prepped and draped in the usual sterile fashion. First, a | | | micropuncture needle was used to access the right common femoral | | | artery. A micropuncture sheath was then inserted over wire and this | | | was upsized to a 7 Nepalese sheath. Next, a perclose device was deployed | | | at the 10:00 and 2:00 position in the right common femoral artery. | | | The 7 Nepalese sheath was then reinserted over the wire. A pigtail | | | catheter was then placed through the right sheath into the mid aorta. | | | Next, a micropuncture needle was used to access the left common | | | femoral artery. A micropuncture sheath was then inserted over wire and | | | this was upsized to a 7 Nepalese sheath. Again, a perclose device was | | | deployed at the 10:00 and 2:00 position in the left common femoral | | | artery. An Amplatz wire was then placed to the left 7 Nepalese sheath | | | with the tip of the wire in the aortic arch. Once the wire was in | | | place, the 7-Nepalese sheath was removed from the left common femoral | | | artery and a 28 x 14 x 103 mm main body was then positioned in the | | | aorta at the level of the renal arteries. Next, aortogram was then | | | performed through the pigtail catheter. Once the aortogram was | | | performed, the location of the renal arteries were identified and | | | marked. The main body was then deployed below the level of the renal | | | arteries. Next, deployment of the main body was continued to the level | | | of the flow divider and suprarenal stents were then released and | | | therefore setting the main body in place. Next the contralateral limb | | | was then accessed using a Glidewire and a Berenstein catheter. Once | | | the contralateral limb was accessed, a pigtail catheter was then | | | used to verify position within the graft. An Amplatz wire was then | | | placed into the right 7 honduran sheath with the tip at the aortic arch. | | | The 7 honduran sheath was then removed and upsized to a 16 honduran | | | sheath. Next, a right iliac artery arteriogram was performed | | | noting the location of the hypogastric artery and a 16 x 16 x 156 mm | | | contralateral limb was then deployed in the graft with the distal | | | landing zone in the right common iliac artery. Once the contralateral | | | limb was deployed, the deployment device was removed. Next, the | | | main body was then fully deployed in the left common iliac artery. The | | | deployment device was then removed and a 16 honduran sheath was | | | inserted over the wire. A left iliac arteriogram was then performed | | | through the 16 Nepalese sheath and the location of the left | | | hypogastric artery was noted. A 16 x 20 x 156 mm ipsilateral limb was | | | deployed with the distal landing zone in the left common iliac artery. | | | Next, noncompliant balloons were then used to angioplasty the | | | neck, the contralateral and ipsilateral limbs together and both the | | | distal landing zones. Once the ballooning was performed, the pigtail | | | catheter was then inserted at the level the renal arteries and | | | another aortogram was performed. Both renal and hypogastric arteries | | | showed good flow with no type I or 3 endoleaks seen. Therefore, the | | | right sheath was removed and a Perclose device was used to obtain | | | hemostasis. The left sheath was then removed and the Perclose | | | device was also used to obtain hemostasis. A hand-held Doppler was | | | used to verify good flow in both pedal arteries. Dermabond was then | | | placed on the skin. At the end of the case, sponge, needle and | | | instrument counts were correct x2. There were no apparent | | | complications. | | + + + + + | Procedure Note | + + | Mike, Rad Conversion - 04/03/2019 11:51 PM PDT Abdominal Arteriogram and Endovascular | | Aneurysm Repair PREOPERATIVE DIAGNOSIS: 6.8 cm infrarenal abdominal aortic aneurysm | | POSTOPERATIVE DIAGNOSIS: 6.8 cm infrarenal abdominal aortic aneurysm PROCEDURE:1. | | Ultrasound guided access of bilateral common femoral arteries2. Endovascular Aneurysm | | Repair using bifurcated graft with 2 docking limbs3. Percutaneous closure of bilateral | | common femoral artery using the Perclose device SURGEON: Vincent Fields MD SERVICE STATION OPERATOR: Ingrid | | MORRO Morris ANESTHESIA: General endotracheal anesthesia ESTIMATED BLOOD LOSS: Less than | | 100 mL FLUIDS: 1500 ml crystalloids CONTRAST: 85 mL of Isovue 250 INDICATIONS: | | Jarad is a pleasant 69-year-old male who was incidentally found to have a large | | aneurysm on CT scan performed for hip pain. Due to large size of aneurysm, he was | | referred to me on an urgent basis for aneurysm repair. Patient elected to undergo | | endovascular repair. FINDINGS: Large infrarenal abdominal aortic aneurysm. Aneurysm | | excluded using 28 x 14 x 103 mm main body, 16 x 20 x 156 mm ipsilateral extension, and | | 16 x 16 by a 156 mm contralateral limb. After repair, no endoleak was seen. Good filling | | of bilateral renal arteries and hypogastric arteries. Patient had palpable pedal | | signals at end of case. DESCRIPTION OF PROCEDURE:The patient was properly identified and | | brought to the [facility] Unit. The patient was placed supine on the [facility] table and the | | patient underwent general endotracheal anesthesia. The patient's abdomen and bilateral | | groins were then prepped and draped in the usual sterile fashion. First, a micropuncture | | needle was used to access the right common femoral artery. A micropuncture sheath was | | then inserted over wire and this was upsized to a 7 Nepalese sheath. Next, a perclose | | device was deployed at the 10:00 and 2:00 position in the right common femoral artery. | | The 7 Nepalese sheath was then reinserted over the wire. A pigtail catheter was then | | placed through the right sheath into the mid aorta. Next, a micropuncture needle was | | used to access the left common femoral artery. A micropuncture sheath was then inserted | | over wire and this was upsized to a 7 Nepalese sheath. Again, a perclose device was | | deployed at the 10:00 and 2:00 position in the left common femoral artery. An Amplatz | | wire was then placed to the left 7 Nepalese sheath with the tip of the wire in the aortic | | arch. Once the wire was in place, the 7-Nepalese sheath was removed from the left common | | femoral artery and a 28 x 14 x 103 mm main body was then positioned in the aorta at the | | level of the renal arteries. Next, aortogram was then performed through the pigtail | | catheter. Once the aortogram was performed, the location of the renal arteries were | | identified and marked. The main body was then deployed below the level of the renal | | arteries. Next, deployment of the main body was continued to the level of the flow | | divider and suprarenal stents were then released and therefore setting the main body in | | place. Next the contralateral limb was then accessed using a Glidewire and a Berenstein | | catheter. Once the contralateral limb was accessed, a pigtail catheter was then used to | | verify position within the graft. An Amplatz wire was then placed into the right 7 | | honduran sheath with the tip at the aortic arch. The 7 honduran sheath was then removed and | | upsized to a 16 honduran sheath. Next, a right iliac artery arteriogram was performed | | noting the location of the hypogastric artery and a 16 x 16 x 156 mm contralateral limb | | was then deployed in the graft with the distal landing zone in the right common iliac | | artery. Once the contralateral limb was deployed, the deployment device was removed. | | Next, the main body was then fully deployed in the left common iliac artery. The | | deployment device was then removed and a 16 honduran sheath was inserted over the wire. A | | left iliac arteriogram was then performed through the 16 Nepalese sheath and the location | | of the left hypogastric artery was noted. A 16 x 20 x 156 mm ipsilateral limb was | | deployed with the distal landing zone in the left common iliac artery. Next, | | noncompliant balloons were then used to angioplasty the neck, the contralateral and | | ipsilateral limbs together and both the distal landing zones. Once the ballooning was | | performed, the pigtail catheter was then inserted at the level the renal arteries and | | another aortogram was performed. Both renal and hypogastric arteries showed good flow | | with no type I or 3 endoleaks seen. Therefore, the right sheath was removed and a | | Perclose device was used to obtain hemostasis. The left sheath was then removed and the | | Perclose device was also used to obtain hemostasis. A hand-held Doppler was used to | | verify good flow in both pedal arteries. Dermabond was then placed on the skin. At the | | end of the case, sponge, needle and instrument counts were correct x2. There were no | | apparent complications. IMPRESSION: 1. Large 6.8 cm infrarenal abdominal aortic | | aneurysm excluded using Endurant stent graft.2. No endoleak seen in this case.3. Good | | filling of bilateral renal arteries and hypogastric arteries at end of case. | | | |3. Good filling of bilateral renal arteries and hypogastric arteries at end of case. | | | | | + + US Guided Vascular Access (09/23/2014 2:33 PM PST) + + | Specimen | + + | | + + + + + | Impressions | Performed At | + + + | 1. Large 6.8 cm infrarenal abdominal aortic aneurysm excluded | | | using Endurant stent graft. 2. No endoleak seen in this case. 3. | | | Good filling of bilateral renal arteries and hypogastric arteries at | | | end of case. | | | 5:25 PM | | + + + + + + | Narrative | Performed At | + + + | Abdominal Arteriogram and Endovascular Aneurysm Repair | | | PREOPERATIVE DIAGNOSIS: 6.8 cm infrarenal abdominal aortic aneurysm | | | POSTOPERATIVE DIAGNOSIS: 6.8 cm infrarenal abdominal aortic | | | aneurysm PROCEDURE: 1. Ultrasound guided access of bilateral | | | common femoral arteries 2. Endovascular Aneurysm Repair using | | | bifurcated graft with 2 docking limbs 3. Percutaneous closure of | | | bilateral common femoral artery using the Perclose device SURGEON: | | | Vincent Fields MD SERVICE STATION OPERATOR: MORRO Arboleda ANESTHESIA: General | | | endotracheal anesthesia ESTIMATED BLOOD LOSS: Less than 100 mL | | | FLUIDS: 1500 ml crystalloids CONTRAST: 85 mL of Isovue 250 | | | INDICATIONS: Mr. Abraham is a pleasant 69-year-old male who | | | was incidentally found to have a large aneurysm on CT scan performed | | | for hip pain. Due to large size of aneurysm, he was referred to me on | | | an urgent basis for aneurysm repair. Patient elected to undergo | | | endovascular repair. FINDINGS: Large infrarenal abdominal aortic | | | aneurysm. Aneurysm excluded using 28 x 14 x 103 mm main body, 16 x 20 | | | x 156 mm ipsilateral extension, and 16 x 16 by a 156 mm contralateral | | | limb. After repair, no endoleak was seen. Good filling of bilateral | | | renal arteries and hypogastric arteries. Patient had palpable pedal | | | signals at end of case. DESCRIPTION OF PROCEDURE: The patient was | | | properly identified and brought to the [facility]forming Unit. The patient was | | | placed supine on the [facility] table and the patient underwent general | | | endotracheal anesthesia. The patient's abdomen and bilateral groins | | | were then prepped and draped in the usual sterile fashion. First, a | | | micropuncture needle was used to access the right common femoral | | | artery. A micropuncture sheath was then inserted over wire and this | | | was upsized to a 7 Nepalese sheath. Next, a perclose device was deployed | | | at the 10:00 and 2:00 position in the right common femoral artery. | | | The 7 Nepalese sheath was then reinserted over the wire. A pigtail | | | catheter was then placed through the right sheath into the mid aorta. | | | Next, a micropuncture needle was used to access the left common | | | femoral artery. A micropuncture sheath was then inserted over wire and | | | this was upsized to a 7 Nepalese sheath. Again, a perclose device was | | | deployed at the 10:00 and 2:00 position in the left common femoral | | | artery. An Amplatz wire was then placed to the left 7 Nepalese sheath | | | with the tip of the wire in the aortic arch. Once the wire was in | | | place, the 7-Nepalese sheath was removed from the left common femoral | | | artery and a 28 x 14 x 103 mm main body was then positioned in the | | | aorta at the level of the renal arteries. Next, aortogram was then | | | performed through the pigtail catheter. Once the aortogram was | | | performed, the location of the renal arteries were identified and | | | marked. The main body was then deployed below the level of the renal | | | arteries. Next, deployment of the main body was continued to the level | | | of the flow divider and suprarenal stents were then released and | | | therefore setting the main body in place. Next the contralateral limb | | | was then accessed using a Glidewire and a Berenstein catheter. Once | | | the contralateral limb was accessed, a pigtail catheter was then | | | used to verify position within the graft. An Amplatz wire was then | | | placed into the right 7 honduran sheath with the tip at the aortic arch. | | | The 7 honduran sheath was then removed and upsized to a 16 honduran | | | sheath. Next, a right iliac artery arteriogram was performed | | | noting the location of the hypogastric artery and a 16 x 16 x 156 mm | | | contralateral limb was then deployed in the graft with the distal | | | landing zone in the right common iliac artery. Once the contralateral | | | limb was deployed, the deployment device was removed. Next, the | | | main body was then fully deployed in the left common iliac artery. The | | | deployment device was then removed and a 16 honduran sheath was | | | inserted over the wire. A left iliac arteriogram was then performed | | | through the 16 Nepalese sheath and the location of the left | | | hypogastric artery was noted. A 16 x 20 x 156 mm ipsilateral limb was | | | deployed with the distal landing zone in the left common iliac artery. | | | Next, noncompliant balloons were then used to angioplasty the | | | neck, the contralateral and ipsilateral limbs together and both the | | | distal landing zones. Once the ballooning was performed, the pigtail | | | catheter was then inserted at the level the renal arteries and | | | another aortogram was performed. Both renal and hypogastric arteries | | | showed good flow with no type I or 3 endoleaks seen. Therefore, the | | | right sheath was removed and a Perclose device was used to obtain | | | hemostasis. The left sheath was then removed and the Perclose | | | device was also used to obtain hemostasis. A hand-held Doppler was | | | used to verify good flow in both pedal arteries. Dermabond was then | | | placed on the skin. At the end of the case, sponge, needle and | | | instrument counts were correct x2. There were no apparent | | | complications. | | + + + + + | Procedure Note | + + | Mike, David Conversion - 04/03/2019 11:51 PM PDT Abdominal Arteriogram and Endovascular | | Aneurysm Repair PREOPERATIVE DIAGNOSIS: 6.8 cm infrarenal abdominal aortic aneurysm | | POSTOPERATIVE DIAGNOSIS: 6.8 cm infrarenal abdominal aortic aneurysm PROCEDURE:1. | | Ultrasound guided access of bilateral common femoral arteries2. Endovascular Aneurysm | | Repair using bifurcated graft with 2 docking limbs3. Percutaneous closure of bilateral | | common femoral artery using the Perclose device SURGEON: Vincent Fields MD SERVICE STATION OPERATOR: Ingrid | | MORRO Morris ANESTHESIA: General endotracheal anesthesia ESTIMATED BLOOD LOSS: Less than | | 100 mL FLUIDS: 1500 ml crystalloids CONTRAST: 85 mL of Isovue 250 INDICATIONS: | | Jarad is a pleasant 69-year-old male who was incidentally found to have a large | | aneurysm on CT scan performed for hip pain. Due to large size of aneurysm, he was | | referred to me on an urgent basis for aneurysm repair. Patient elected to undergo | | endovascular repair. FINDINGS: Large infrarenal abdominal aortic aneurysm. Aneurysm | | excluded using 28 x 14 x 103 mm main body, 16 x 20 x 156 mm ipsilateral extension, and | | 16 x 16 by a 156 mm contralateral limb. After repair, no endoleak was seen. Good filling | | of bilateral renal arteries and hypogastric arteries. Patient had palpable pedal | | signals at end of case. DESCRIPTION OF PROCEDURE:The patient was properly identified and | | brought to the [facility] Unit. The patient was placed supine on the [facility]forming Unit table and the | | patient underwent general endotracheal anesthesia. The patient's abdomen and bilateral | | groins were then prepped and draped in the usual sterile fashion. First, a micropuncture | | needle was used to access the right common femoral artery. A micropuncture sheath was | | then inserted over wire and this was upsized to a 7 Nepalese sheath. Next, a perclose | | device was deployed at the 10:00 and 2:00 position in the right common femoral artery. | | The 7 Nepalese sheath was then reinserted over the wire. A pigtail catheter was then | | placed through the right sheath into the mid aorta. Next, a micropuncture needle was | | used to access the left common femoral artery. A micropuncture sheath was then inserted | | over wire and this was upsized to a 7 Nepalese sheath. Again, a perclose device was | | deployed at the 10:00 and 2:00 position in the left common femoral artery. An Amplatz | | wire was then placed to the left 7 Nepalese sheath with the tip of the wire in the aortic | | arch. Once the wire was in place, the 7-Nepalese sheath was removed from the left common | | femoral artery and a 28 x 14 x 103 mm main body was then positioned in the aorta at the | | level of the renal arteries. Next, aortogram was then performed through the pigtail | | catheter. Once the aortogram was performed, the location of the renal arteries were | | identified and marked. The main body was then deployed below the level of the renal | | arteries. Next, deployment of the main body was continued to the level of the flow | | divider and suprarenal stents were then released and therefore setting the main body in | | place. Next the contralateral limb was then accessed using a Glidewire and a Berenstein | | catheter. Once the contralateral limb was accessed, a pigtail catheter was then used to | | verify position within the graft. An Amplatz wire was then placed into the right 7 | | honduran sheath with the tip at the aortic arch. The 7 honduran sheath was then removed and | | upsized to a 16 honduran sheath. Next, a right iliac artery arteriogram was performed | | noting the location of the hypogastric artery and a 16 x 16 x 156 mm contralateral limb | | was then deployed in the graft with the distal landing zone in the right common iliac | | artery. Once the contralateral limb was deployed, the deployment device was removed. | | Next, the main body was then fully deployed in the left common iliac artery. The | | deployment device was then removed and a 16 honduran sheath was inserted over the wire. A | | left iliac arteriogram was then performed through the 16 Nepalese sheath and the location | | of the left hypogastric artery was noted. A 16 x 20 x 156 mm ipsilateral limb was | | deployed with the distal landing zone in the left common iliac artery. Next, | | noncompliant balloons were then used to angioplasty the neck, the contralateral and | | ipsilateral limbs together and both the distal landing zones. Once the ballooning was | | performed, the pigtail catheter was then inserted at the level the renal arteries and | | another aortogram was performed. Both renal and hypogastric arteries showed good flow | | with no type I or 3 endoleaks seen. Therefore, the right sheath was removed and a | | Perclose device was used to obtain hemostasis. The left sheath was then removed and the | | Perclose device was also used to obtain hemostasis. A hand-held Doppler was used to | | verify good flow in both pedal arteries. Dermabond was then placed on the skin. At the | | end of the case, sponge, needle and instrument counts were correct x2. There were no | | apparent complications. IMPRESSION: 1. Large 6.8 cm infrarenal abdominal aortic | | aneurysm excluded using Endurant stent graft.2. No endoleak seen in this case.3. Good | | filling of bilateral renal arteries and hypogastric arteries at end of case. | | | |3. Good filling of bilateral renal arteries and hypogastric arteries at end of case. | | | | | + + Activated clotting time (09/23/2014 2:23 PM PST) + + + + + + | Component | Value | Ref Range | Performed | Pathologist | | | | | At | Signature | + + + + + + | Activated | 365 (H)Comment: Testing | 74 - 137 | EXTERNAL | | | Clotting | performed at [facility];888 | seconds | LAB | | | time, POC | Shannan Viera;[place], [place] | | | | | | [address] | | | | + + + + + + + + | Specimen | + + | | + + + +---------+ + + | Performing | Address | City/State/Zipcode | Phone Number | | Organization | | | | + +---------+ + + | EXTERNAL LAB | | | | + +---------+ + + Activated clotting time (09/23/2014 2:14 PM PST) + + + + + + | Component | Value | Ref Range | Performed | Pathologist | | | | | At | Signature | + + + + + + | Activated | 309 (H)Comment: Testing | 74 - 137 | EXTERNAL | | | Clotting | performed at [facility];888 | seconds | LAB | | | time, POC | Shannan Viera;[place], [place] | | | | | | [address] | | | | + + + + + + + + | Specimen | + + | | + + + +---------+ + + | Performing | Address | City/State/Zipcode | Phone Number | | Organization | | | | + +---------+ + + | EXTERNAL LAB | | | | + +---------+ + + Activated clotting time (09/23/2014 1:48 PM PST) + + + + + + | Component | Value | Ref Range | Performed | Pathologist | | | | | At | Signature | + + + + + + | Activated | 160 (H)Comment: Testing | 74 - 137 | EXTERNAL | | | Clotting | performed at [facility];888 | seconds | LAB | | | time, POC | Shannan Viera;[place], [place] | | | | | | [address] | | | | + + + [...] + | Diagnosis | + + | AAA (abdominal aortic aneurysm) (HCC) Abdominal aneurysm without mention of rupture | + + documented in this encounter
--- OUTSIDE RECORDS SUMMARY | ~2019-07-23 | XMS | Encounter Summary ---
Demographics + + + | Address | [address] | | | [place] [address] | + + + | Home Phone [...] Team Providers + +------+ + | Care City Route Driver Name | Role | Phone | + +------+ + PCP | Unavailable | + +------+ + Encounter Details +--------+ + + + + | Date | Type | Department | Care Team | Description | +--------+ + + + + | 09/16/ | Hospital | [facility] GENER[facility] IP | Conversion | Pain | | 2015 | Encounter | CONVERSION DEP [address] | Transaction, | | | | | [address] | Provider Unknown | | | | | [place] | [phone] | | | | | [address] | | | | | | [phone] | | | +--------+ + + + [...] [place] | | | | | | [address] | | | | | | | [...] ELIAS | | | | | | [place] [address] | | | | | | [phone] | | | | | | | | +--------+ + + + + | 10/21/ | Office | Cardiology | Nav Foley, | | | 2019 | Visit | | MD [address] | | | | | | [place] [address] | | | | | | [phone] | | | | | | | [...]
--- OUTSIDE RECORDS SUMMARY | ~2019-07-23 | XMS | Encounter Summary ---
Demographics + + + | Address | [address] | | | [place] [address] | + + + | Home Phone [...] Team Providers + +------+ + | Care Supervisory Training Specialist Name | Role | Phone | + +------+ + PCP | Unavailable | + +------+ + Encounter Details +--------+ + + + + | Date | Type | Department | Care Team | Description | +--------+ + + + + | 09/15/ | Hospital | [facility] GENERIC IP | Conversion | Pain | | 2015 | Encounter | CONVERSION DEP [address] | Transaction, | | | | | [address] | Provider Unknown | | | | | [place] | [phone] | | | | | [address] | | | | | | [phone] | | | +--------+ + + + [...] [place] | | | | | | [address] | | | | | | | [...] ELIAS | | | | | | [place] [address] | | | | | | [phone] | | | | | | | | +--------+ + + + + | 10/21/ | Office | Cardiology | Nav Foley, | | | 2019 | Visit | | MD [address] | | | | | | [place] [address] | | | | | | [phone] | | | | | | | [...]
--- OUTSIDE RECORDS SUMMARY | ~2019-07-23 | XMS | Encounter Summary ---
Demographics + + + | Address | [address] | | | [place] [address] | + + + | Home Phone [...] Team Providers + +------+ + | Care Filenet Developer Name | Role | Phone | + +------+ + PCP | Unavailable | + +------+ + Encounter Details +--------+ + + + + | Date | Type | Department | Care Team | Description | +--------+ + + + + | 11/05/ | Hospital | [facility] | Elder Cooper MD | Unspecified Chest | | 2008 | Encounter | [facility] | [address] | Pain | | | | CLINICAL DECISION | [address] | | | | | [address] | [place], [place] | | | | | [place], [place] | [address] | | | | | [address] | [phone] | | | | | [phone] | | | +--------+ + + + [...] [place] | | | | | | [address] | | | | | | | [...] | | | | | [place] [address] | | | | | | [phone] | | | | | | | | +--------+ + + + + | 10/21/ | Office | Cardiology | Nav Foley, | | | 2019 | Visit | | MD [address] | | | | | | [place] [address] | | | | | | [phone] | | | | | | | [...] Performed At | + + + | [id number] | | | Page [address] | | | [facility] [address]/ | | | OPS [facility] | | | CENTER NAME: EBER FR[place], [place] | | | [address] | | | | | | DATE OF : 1945 | | | ORDER NUMBER: [id number] EXAM DATE/TIME: 11/05/2008 08:22 A | | [...] | | | 1% lidocaine solution. A 6-Mozambican arterial sheath was inserted into | | | the right common femoral artery using a modified Seldinger technique. | | | A 6-Mozambican pigtail catheter was advanced over the guidewire [...] was exchanged over the guidewire by a 6-Mozambican JL4 catheter that was | | | [...] a | | | guidewire by a 6-Mozambican right coronary artery (RCA) Waqar catheter | [...] 01:39 P A | | | P NH//[id number]/ cc: ELDER COOPER MD | | | RYAN FREY MD | | + + + + + | Procedure Note | + + | David Mckeon - 04/14/2019 4:31 AM PDT | | [id number] Page 1 | | CARDIOLOGY CD [address]/ | | OPS | | [facility] NAME: FRANCI VELÁZQUEZ | | [place] [address] | | | | DATE OF : 1945 | | | | ORDER NUMBER: [id number] | | EXAM DATE/TIME: 11/05/2008 08:22 A [...] 10 mL of 1% lidocaine solution. A 6-Mozambican arterial | | sheath was inserted into the right common femoral artery using a | | modified Seldinger technique. A 6-Mozambican pigtail catheter was advanced | | over [...] was exchanged over the guidewire by a 6-Mozambican JL4 | | catheter that was advanced over the guidewire under fluoroscopy and | | engaged to the left main artery. Dye was injected into the left coronary | | system, and multiple angiographic pictures of the left coronary system | | were taken in multiple projections. The JL4 catheter was exchanged over | | a guidewire by a 6-Mozambican right coronary artery (RCA) Waqar catheter | [...] | A | | P | | ONI/dolly/[id number]/ | | cc: ELDER COOPER MD | | RYAN FREY MD | + + documented in this encounter Visit Diagnoses + + | Diagnosis | + + | Chest pain, unspecified | + + documented in this encounter"
--- OUTSIDE RECORDS SUMMARY | ~2019-07-23 | XMS | Encounter Summary ---
Demographics + + + | Address | [address] | | | [place] [address] | + + + | Home Phone | | + + + | Preferred Language | Unknown | + + + | Marital Status | | + + + | Yazdanism Affiliation | Unknown | + + + | Race | Unknown | + + + | Ethnic Group | Unknown | + + + Author + + + | Author | [facility] | | | and [place] | + + + | Organization | [facility] | | [...] Team Providers + +------+ + | Care Branch Lending Manager Name | Role | Phone | + +------+ + | Carla Murphy | PCP | | | PA-C | | | + +------+ + Encounter Details +--------+ + + + + | Date | Type | Department | Care Team | Description | +--------+ + + + + | 03/25/ | Hospital | [facility] GENER[facility] IP | Conversion | Unknown cause of | | 2016 | Encounter | CONVERSION DEP [address] | Transaction, | injury | | | | [address] | Provider Unknown | | | | | [place], [place] | [phone] | | | | | [phone] | (Fax) | | | | | [phone] | | | +--------+ + + + [...] [place] | | | | | | [address] | | | | | | | [...] F | | | | | | [place] [address] | | | | | | [phone] | | | | | | | | +--------+ + + + + | 10/21/ | Office | Cardiology | Nav Foley, | | | 2019 | Visit | | [address] | | | | | | [place] [address] | | | | | | [phone] | | | | | | | [...]
--- OUTSIDE RECORDS SUMMARY | ~2019-07-23 | XMS | Encounter Summary ---
Demographics + + + | Address | [address] | | | [place] [address] | + + + | Home Phone [...] Team Providers + +------+ + | Care Awning Frame Maker Name | Role | Phone | [...] | | | 2015 | Coordinatio | [facility] | Sailaja Chiang MD | | | | n | INFORMATION | | | | | | MANAGEMENT | | | | | | [phone] | | | +--------+ + + + [...] [place] | | | | | | [address] | | | | | | | | +--------+ + + + + | 07/30/ | Procedure | Cardiology | | | | 2018 | visit | | | | +--------+ + + + + | 09/01/ | Office | Cardiology | Poppy Rodriguez | | | 2019 | Visit | | [address] | | | | | | [address] | | | | | | [place] [address] | | | | | | [phone] | | | | | | | | +--------+ + + + + | 10/21/ | Office | Cardiology | Nav Foley, | | | 2019 | Visit | | [address] | | | | | | [place] [address] | | | | | | [phone] | | | | | | | | +--------+ + + + + documented as of this encounter Visit Diagnoses Not on filedocumented in this encounter"
--- OUTSIDE RECORDS SUMMARY | ~2019-07-23 | XMS | Encounter Summary ---
Demographics + + + | Address | [address] | | | [place] [address] | + + + | Home Phone [...] Team Providers + +------+ + | Care Steamboat Pilot Name | Role | Phone | + +------+ + PCP | Unavailable | + +------+ + Encounter Details +--------+ + + + + | Date | Type | Department | Care Team | Description | +--------+ + + + + | 05/17/ | Hospital | [facility] | Conversion | Cardiomyopathy | | 2014 - | Encounter | [facility]ICAL [facility]ENTER | Transaction, | ([facility]); S/P AAA | | | | CLINICAL DECISION | Provider Unknown | repair | | 05/18/ | | [address] | [phone] | | | 2014 | | [place], [place] | | | | | | [address] | Terrance Martinez MD | | | | | [phone] | PhD [address] [facility] | | | | | | [address] | | | | | | [place] [address] | | | | | | [phone] | | | | | | | [...] 1103 Date of Service: 05/18/15830 Status: Signed Geophysical Computer: MORRO Lin (Nurse Practitioner) [facility] PATIENT NAME: Franci Velázquez : 1945: AGE: [...] Date of Service: 05/18/15 1137 Status: Signed Geophysical Computer: Cyndee Warner RN (Registered Nurse) Patient discharge instructions were reviewed with patient at bedside. Patient states they u nderstand instructions.No concerns or questions voiced at this time. IV removed. Patient emmanuel eugene be discharging home to [place] with a ride from his friend. onver chetna Transaction, Provider Unknown - 05/18/2015 10:29 AM PDT Nurse Progress Note by Cyndee Warner RN at 05/18/15 1029 Author: Cyndee Warner RN Service: (none) Author Type: Registered Nurse Filed: 05/18/15 1030 Date of Service: 05/18/15 1029 Status: Signed Geophysical Computer: Cyndee Warner RN (Registered Nurse) Patient c/o [...] Date of Service: 05/18/15 1018 Status: Signed Geophysical Computer: Mackenzie Caballero RN (Registered Nurse) 05/18/15 1017 [...] male who lives alone in a [place] [facility] apartment. Pt did not identify financial, transportation, [...] 05/17/152252 Date of Service: 05/17/152250 Status: Signed Geophysical Computer: Melva Harper RN (Registered Nurse) Called Dr [...] | | | | | [place], [place] | | | | | | [...] F | | | | | | [place] [address] | | | | | | [phone] | | | | | | | | +--------+ + + + + | 10/21/ | Office | Cardiology | Nav Foley, | | | 2019 | Visit | | [address] | | | | | | [place] [address] | | | | | | [phone] | | | | | | | [...] PREPROCEDURE DIAGNOSIS | | | Nonischemic cardiomyopathy, JOURNEYMAN MILLWRIGHT-D system at elective replacement | | | indicator. PROCEDURES PERFORMED 1. Periprocedural JOURNEYMAN MILLWRIGHT evaluation, | | | programming and optimization. 2. Removal of a JOURNEYMAN MILLWRIGHT pulse generator. | | | 3. Implantation of a JOURNEYMAN MILLWRIGHT pulse generator. 4. Fluoroscopic lead | | | evaluation without revision or replacement (70059). PHYSICIAN | | | Terrance Martinez MD [...] by echocardiogram April 2015, | | | [place] [employer] functional Class II, status severe sleep | | | apnea, recent triple aneurysm, prepare JOURNEYMAN MILLWRIGHT system presently at [facility] | | | underlying the patient's left bundle branch block with ongoing | | | depressed LV ejection fraction for which ongoing ICD protection and | | | JOURNEYMAN MILLWRIGHT therapy is indicated. The patient is referred [...] ICD, serial number | | | [id number], implanted January 27, 2010. IMPLANTED MATERIALS | | | Medtronic Viva XT JOURNEYMAN MILLWRIGHT-D, serial number [id number]. PREVIOUSLY | | | IMPLANTED LEADS Medtronic right atrial lead, 5076, 52 cm, serial | | | number [id number], implanted January 27, 2010, 4 mV P waves, impedance | | | 399 ohms, threshold 0.5 V at 0.5 msec. RV lead is a Medtronic | | | 6947, 65 cm, serial number [id number], implanted January 27, 2010, 5.5 | | | mV R waves, impedance 988 ohms, threshold 0.5 V at 0.4 msec. LV | | | lead is a Medtronic 4195, 88 cm, serial number [id number], implanted | | | January 27, 2010. We know that this is a Medtronic StarFix lead, | | | impedance 456 ohms, threshold 0.75 V at 0.4 msec. Periprocedure, | | | the patient's ICD was assessed with stored fluoroscopy in both the | | | BAHRAINI and VILLALPANDO fluoroscopic views demonstrating satisfactory lead | | | positioning and no observable mechanical disruption. Vinh | | | programming is DDD 60 to 120, sleep hysteresis 50 beats per minute. | | | ECG-guided JOURNEYMAN MILLWRIGHT optimization was performed noting the prior LV offset | | | was -20. This was assessed at unpaced, 0, -20, -40. Unpaced there | | | was left bundle branch block, QRS 138, MI 178 msec. At 0 offset, QRS | [...] | the patient's equivocal clinical response to JOURNEYMAN MILLWRIGHT therapies in 2009. | | | IMPRESSION Successful replacement of a JOURNEYMAN MILLWRIGHT-D pulse generator with | | | successful JOURNEYMAN MILLWRIGHT optimization selecting an LV offset of -40 [...] | PREPROCEDURE DIAGNOSIS | | Nonischemic cardiomyopathy, JOURNEYMAN MILLWRIGHT-D system at elective replacement | | indicator. | | | | PROCEDURES PERFORMED | | 1. Periprocedural JOURNEYMAN MILLWRIGHT evaluation, programming and optimization. | | 2. Removal of a JOURNEYMAN MILLWRIGHT pulse generator. | | 3. Implantation of a JOURNEYMAN MILLWRIGHT pulse generator. | | 4. Fluoroscopic lead evaluation without revision or replacement (54564). | | | | PHYSICIAN | | [...] 35% by echocardiogram April | | 2014, [place] [employer] functional Class II, status severe sleep | | apnea, recent triple aneurysm, prepare JOURNEYMAN MILLWRIGHT system presently at [facility] | | underlying the patient's left bundle branch block with ongoing depressed | | LV ejection fraction for which ongoing ICD protection and JOURNEYMAN MILLWRIGHT therapy is | | indicated. The patient [...] | Medtronic Bi-V ICD, serial number [id number], implanted January 27, 2010. | | | | IMPLANTED MATERIALS | | Medtronic Viva XT JOURNEYMAN MILLWRIGHT-D, serial number [id number]. | | | | PREVIOUSLY IMPLANTED LEADS | | Medtronic right atrial lead, 5076, 52 cm, serial number [id number], | | implanted January 27, 2010, 4 mV P waves, impedance 399 ohms, threshold 0.5 V | | at 0.5 msec. | | | | RV lead is a Medtronic 6947, 65 cm, serial number [id number], implanted | | January 27, 2010, 5.5 mV R waves, impedance 988 ohms, threshold 0.5 V at 0.4 | | msec. | | | | LV lead is a Medtronic 4195, 88 cm, serial number [id number], implanted | | January 27, 2010. We know that this is a Medtronic StarFix lead, impedance | | 456 ohms, threshold 0.75 V at 0.4 msec. | | | | Periprocedure, the patient's ICD was assessed with stored fluoroscopy in | | both the BAHRAINI and VILLALPANDO fluoroscopic views demonstrating satisfactory lead | | positioning and no observable mechanical disruption. | | | | Vinh programming is DDD 60 to 120, sleep hysteresis 50 beats per minute. | | | | ECG-guided JOURNEYMAN MILLWRIGHT optimization was performed noting the prior LV offset was | | -20. This was assessed at unpaced, 0, -20, -40. Unpaced there was left | | bundle branch block, QRS 138, MI 178 msec. At 0 offset, QRS was [...] patient's equivocal clinical | | response to JOURNEYMAN MILLWRIGHT therapies in 2009. | | | | IMPRESSION | | Successful replacement of a JOURNEYMAN MILLWRIGHT-D pulse generator with successful JOURNEYMAN MILLWRIGHT | | optimization selecting an LV offset [...] | | | 0.43 m/s TV Dec [place]: 1.33 m/s2 TV Dec Time: 204.41 ms TV E | | | Frank: 0.27 m/s TV E/A Ratio: 0.62 Roof Bolter Operator: PEDRITO | | | Authenticated by: [...] 148.95 mlLVLs A4C: 7.54 cmLAAs A4C: 13.83 rv4HABPW A-L | | A4C: 39.99 mlLALs A4C: 4.06 cmAo Diam: 3.85 cmAV Cusp: 2.04 cmLA Diam: 4.15 | | cmLA/Ao: 1.07HR: 81.35 BPMAV maxP.24 mmHgAV meanP.14 mmHgAV Vmax: 0.90 | | m/Fabricio Vmean: 0.71 m/Fabricio VTI: 14.68 cmAVA Vmax: 3.26 cm2AVA (VTI): 3.58 of1OIMT | | Dopp: 1.79 l/tzbo8YZAL Dopp: 4.25 l/minHR: 80.74 BPMLVOT maxP.51 mmHgLVOT [...] A Frank: 0.43 m/sTV Dec | | [place]: 1.33 m/s2TV Dec Time: 204.41 msTV E Frank: 0.27 m/sTV E/A Ratio: 0.62 | | Roof Bolter Operator: MIKAuthenticated by: Terrance Martinez [facility] Date/Time: 05-30-2015 15:21:28 | | IMPRESSION: [...] A Frank: 0.43 m/s | |TV Dec [place]: 1.33 m/s2 | |TV Dec Time: 204.41 ms | |TV E Frank: 0.27 m/s | |TV E/A Ratio: 0.62 | | | |Roof Bolter Operator: PEDRITO | |Authenticated by: Terrance Martinez [...] EXTERNAL LAB | | Testing performed at [facility];[address] [place] [address];[place] [address] MRSA PCR | | | NEGATIVE Testing performed at | | | [facility];[address] [place] [address];[place] [address] | | + + + + +---------+ [...] K/uL | LAB | | | | [facility];[address] | | [address];[place] [address] | | | | + + + + + + | RED CELL | 5.14Comment: Testing | 4.20 - 5.70 | EXTERNAL | | | COUNT | performed at [facility];[address] | M/uL | LAB | | | | [address];[place] | | | | | | [address] | | | | + + + + + + | Hgb | 15.7Comment: Testing | 13.2 - 17.0 | EXTERNAL | | | | performed at [facility];888 | g/dL | LAB | | | | [address];[place] | | | | | | [address] | | | | + + + + + + | Hematocrit, | 47.0Comment: Testing | 39.0 - 50.0 % | EXTERNAL | | | POC | performed at [facility];[address] | | LAB | | | [address];[place] | | | | | | [address] | | | | + + + + + + | MCV | 91.3Comment: Testing | 80.0 - 100.0 fl | EXTERNAL | | | | performed at [facility];[address] | | LAB | | | [address];[place] | | | | | | [address] | | | | + + + + + + | MCH | 30.5Comment: Testing | 27.0 - 34.0 pg | EXTERNAL | | | | performed at [facility];[address] | | LAB | | | [address];[place] | | | | | | [address] | | | | + + + + + + | MCHC | 33.4Comment: Testing | 32.0 - 35.5 | EXTERNAL | | | | performed at [facility];888 | g/dL | LAB | | | | [address];[place] | | | | | | [address] | | | | + + + + + + | RDW-CV | 45.9Comment: Testing | 37 - 53 fl | EXTERNAL | | | | performed at [facility];[address] | | LAB | | | [address];[place] | | | | | | [address] | | | | + + + + + + | Platelet | 226Comment: Testing | 150 - 400 K/uL | EXTERNAL | | | Count | performed at [facility];[address] | | LAB | | | Plasma | [address];[place] | | | | | | [address] | | | | + + + + + + | MPV | 7.9Comment: Testing | fl | EXTERNAL | | | | performed at [facility];[address] | | LAB | | | [address];[place] | | | | | | [address] | | | | + + + + + + | Differentia | MANUALComment: Testing | | EXTERNAL | | | l Type | performed at [facility];[address] | | LAB | | | [address];[place] | | | | | | [address] | | | | + + + + + + | Segmented | 79Comment: Testing | % | EXTERNAL | | | Neutrophils | performed at [facility];[address] | | LAB | | | Manual | [address];[place] | | | | | | [address] | | | | + + + + + + | Lymphocytes | 10Comment: Testing | % | EXTERNAL | | | Manual | performed at [facility];[address] | | LAB | | | [address];[place] | | | | | | [address] | | | | + + + + + + | Monocytes | 11Comment: Testing | % | EXTERNAL | | | Manual | performed at [facility];[address] | | LAB | | | | [address];[place] | | | | | | [address] | | | | + + + + + + | Absolute | 10.23 (H)Comment: | 1.90 - 7.40 | EXTERNAL | | | Neutrophils | Testing performed at | K/uL | LAB | | | | [facility];[address];[place] [address] | | | | + + + + + + | Absolute | 1.30Comment: Testing | 1.00 - 3.90 | EXTERNAL | | | Lymphocytes | performed at [facility];[address] | K/uL | LAB | | | | [address];[place] | | | | | | [address] | | | | + + + + + + | Absolute | 1.43 (H)Comment: Testing | 0.00 - 0.80 | EXTERNAL | | | Monocytes | performed at [facility];[address] | K/uL | LAB | | | | [address];[place] | | | | | | [address] | | | | + + + + + + | RBC | RBC AND PLT MORPHOLOGY | | EXTERNAL | | | Morphology | APPEAR NORMALComment: | | LAB | | | | Testing performed at | | | | | | [facility];[address];[place] [address] | | | | + + + [...] EXTERNAL | | | | performed at [facility];888 | mmol/L | LAB | | | | [address];[place] | | | | | | [address] | | | | + + + + + + | K | 4.2Comment: SLT | 3.5 - 4.9 | EXTERNAL | | | | HEMOLYSISTesting | mmol/L | LAB | | | | performed at [facility];[address] | | | | | [address];[place] | | | | | | [address] | | | | + + + + + + | Cl | 101Comment: Testing | 99 - 109 mmol/L | EXTERNAL | | | | performed at [facility];[address] | | LAB | | | | [address];[place] | | | | | | [address] | | | | + + + + + + | CO2 | 30Comment: Testing | 23 - 32 mmol/L | EXTERNAL | | | | performed at [facility];[address] | | LAB | | | [address];[place] | | | | | | [address] | | | | + + + + + + | Anion Gap | 11Comment: Testing | 5 - 20 mmol/L | EXTERNAL | | | | performed at [facility];[address] | | LAB | | | | [address];[place] | | | | | | [address] | | | | + + + + + + | Glucose, | 123 (H)Comment: Testing | 65 - 99 mg/dL | EXTERNAL | | | Fasting | performed at [facility];[address] | | LAB | | | | [address];[place] | | | | | | [address] | | | | + + + + + + | BUN | 14Comment: Testing | 8 - 25 mg/dL | EXTERNAL | | | | performed at [facility];[address] | | LAB | | | | [address];[place] | | | | | | [address] | | | | + + + + + + | Creatinine | 0.94Comment: Testing | 0.70 - 1.30 | EXTERNAL | | | | performed at [facility];888 | mg/dL | LAB | | | | [address];[place] | | | | | | [address] | | | | + + + + + + | BUN/Creatin | 15Comment: Testing | | EXTERNAL | | | ine Ratio | performed at [facility];[address] | | LAB | | | | [address];[place] | | | | | | [id number] | | | | + + + + + + | Calcium | 8.9Comment: Testing | 8.5 - 10.5 | EXTERNAL | | | | performed at [facility];888 | mg/dL | LAB | | | | [address];[place], [place] | | | | | | [id number] | | | | + + + [...] | | | | | | at [facility];[address];[place] [address] | | | | + + + [...]
--- OUTSIDE RECORDS SUMMARY | ~2019-07-23 | XMS | Encounter Summary ---
Demographics + + + | Address | [address] | | | [place] [address] | + + + | Home Phone [...] Team Providers + +------+ + | Care Market Research Specialist Name | Role | Phone | + +------+ + | Carla Murphy | PCP | | | PA-C | | | + +------+ + Encounter Details +--------+ + + + + | Date | Type | Department | Care Team | Description | +--------+ + + + + | 03/12/ | Orders Only | [facility] | Provider, | Type 2 diabetes | | 2019 | | SYSTEM GENERIC OP | MD Aga [address] | mellitus without | | | | CONVERSION [address] | [address] | complications (HCC); | | | | [address] [place], [place] | [place] [address] | Encounter for | | | | [address] | | therapeutic drug | | | | [phone] | | level monitoring | +--------+ + [...] [place] | | | | | | [address] | | | | | | | [...] | | | | | [place] [address] | | | | | | [phone] | | | | | | | | +--------+ + + + + | 10/21/ | Office | Cardiology | Nav Foley, | | | 2019 | Visit | | [address] | | | | | | [place] [address] | | | | | | [phone] | | | | | | | [...]
--- OUTSIDE RECORDS SUMMARY | ~2019-07-23 | XMS | Encounter Summary ---
Demographics + + + | Address | [address] | | | [place] [address] | + + + | Home Phone | | + + + | Preferred Language | Unknown | + + + | Marital Status | | + + + | Orthodoxy Affiliation | Unknown | + + + [...] Providers + +------+ + | Care Air Valve Mechanic Name | Role | Phone | + +------+ + PCP | Unavailable | + +------+ + Encounter Details +--------+ + + + + | Date | Type | Department | Care Team | Description | +--------+ + + + + | 09/17/ | Hospital | [facility] | Conversion | | | 2014 | Encounter | [facility] | Transaction, | | | | | CLINIC [address] | Provider Unknown | | | | | [place], [place] | [phone] | | | | | [address] | | | | | | [phone] | | | +--------+ + + + [...] [place] | | | | | | [address] | | | | | | | [...] [place] | | | | | | [place] [address] | | | | | | [phone] | | | | | | | | +--------+ + + + + | 10/21/ | Office | Cardiology | Nav Foley, | | | 2019 | Visit | | MD [address] | | | | | | [place] [address] | | | | | | [phone] | | | | | | | [...] LAB | | Testing performed at [address];[place] [address] MRSA PCR | | | NEGATIVE Testing performed at | | | [address];[place] [address] | | + + + + +---------+ [...] LAB | | | | Blvd;[place] [address] | | | | + + + + + + | Antibody | NEGATIVE | | EXTERNAL | | | Screen | | | LAB | | + + + + + + | Antibody | Testing performed at | | EXTERNAL | | | Screen | [facility];[address] [place] [address] | | LAB | | | | Blvd;[place] [address] | | | | + + + [...] | | | Patient | performed at [facility];[address] | | LAB | | | | [address];[place], [place] | | | | | | [address] | | | | + + + [...] | | | | | performed at [facility];[address] | | | | | | [address];[place], [place] | | | | | | [address] | | | | + + + [...] | | | | | [place] [address] | | | | + + + + + + | RED CELL | 5.03Comment: Testing | 4.20 - 5.70 | EXTERNAL | | | COUNT | performed at [facility], [address] | M/uL | LAB | | | | [address], | | | | | | [place] [address] | | | | + + + + + + | Hgb | 15.5Comment: Testing | 13.2 - 17.0 | EXTERNAL | | | | performed at [facility], [address] | g/dL | LAB | | | | [address], | | | | | | [place] [address] | | | | + + + + + + | Hematocrit, | 45.4Comment: Testing | 39.0 - 50.0 % | EXTERNAL | | | POC | performed at [facility], [address] | | LAB | | | | [address], | | | | | | [place] [address] | | | | + + + + + + | MCV | 90.1Comment: Testing | 80.0 - 100.0 fl | EXTERNAL | | | | performed at [facility], [address] | | LAB | | | | [address], | | | | | | [place] [address] | | | | + + + + + + | MCH | 30.8Comment: Testing | 27.0 - 34.0 pg | EXTERNAL | | | | performed at [facility], [address] | | LAB | | | | [address], | | | | | | [place] [address] | | | | + + + + + + | MCHC | 34.2Comment: Testing | 32.0 - 35.5 | EXTERNAL | | | | performed at [facility], [address] | g/dL | LAB | | | | [address], | | | | | | [place] [address] | | | | + + + + + + | RDW-CV | 43.3Comment: Testing | 37 - 53 fl | EXTERNAL | | | | performed at [facility], [address] | | LAB | | | | [address], | | | | | | [place] [address] | | | | + + + + + + | Platelet | 227Comment: Testing | 150 - 400 K/uL | EXTERNAL | | | Count | performed at [facility], [address] | | LAB | | | Plasma | [address], | | | | | | [place] [address] | | | | + + + + + + | MPV | 8.6Comment: Testing | fl | EXTERNAL | | | | performed at [facility], [address] | | LAB | | | | [address], | | | | | | [place], [place] [address] | | | | + + + + + + | Differentia | MANUALComment: Testing | | EXTERNAL | | | l Type | performed at [facility], [address] | | LAB | | | | [address], | | | | | | [place], [place] [address] | | | | + + + + + + | Segmented | 83Comment: Testing | % | EXTERNAL | | | Neutrophils | performed at [facility], [address] | | LAB | | | Manual | [address], | | | | | | [place] [address] | | | | + + + + + + | Lymphocytes | 11Comment: Testing | % | EXTERNAL | | | Manual | performed at [facility], [address] | | LAB | | | | [address], | | | | | | [place] [address] | | | | + + + + + + | Monocytes | 5Comment: Testing | % | EXTERNAL | | | Manual | performed at [facility], [address] | | LAB | | | | [address], | | | | | | [place] [address] | | | | + + + + + + | Eosinophils | 1Comment: Testing | % | EXTERNAL | | | Manual | performed at [facility], [address] | | LAB | | | | [address], | | | | | | [place] [address] | | | | + + + + + + | Absolute | 12.2 (H)Comment: Testing | 1.9 - 7.4 K/uL | EXTERNAL | | | Neutrophils | performed at [facility], [address] | | LAB | | | | [address], | | | | | | [place] [address] | | | | + + + + + + | Absolute | 1.6Comment: Testing | 1.0 - 3.9 K/uL | EXTERNAL | | | Lymphocytes | performed at [facility], [address] | | LAB | | | | [address], | | | | | | [place] [address] | | | | + + + + + + | Absolute | 0.7Comment: Testing | 0 - 0.8 K/uL | EXTERNAL | | | Monocytes | performed at [facility], [address] | | LAB | | | | [address], | | | | | | [place] [address] | | | | + + + + + + | Absolute | 0.1Comment: Testing | 0 - 0.5 K/uL | EXTERNAL | | | Eosinophils | performed at [facility], [address] | | LAB | | | | [address], | | | | | | [place] [address] | | | | + + + + + + | RBC | RBC AND PLT MORPHOLOGY | | EXTERNAL | | | Morphology | APPEAR NORMALComment: | | LAB | | | | Testing performed at | | | | | | [facility], [address] [facility] [place] | | | | | | [place], [place] | | | | | | [address] | | | | + + + [...] | | | | | [place] [address] | | | | + + + + + + | K | 4.2Comment: Testing | 3.5 - 4.9 | EXTERNAL | | | | performed at [facility], [address] | mmol/L | LAB | | | | [address], | | | | | | [place] [address] | | | | + + + + + + | Cl | 98 (L)Comment: Testing | 99 - 109 mmol/L | EXTERNAL | | | | performed at [facility], [address] | | LAB | | | | [address], | | | | | | [place] [address] | | | | + + + + + + | CO2 | 31Comment: Testing | 23 - 32 mmol/L | EXTERNAL | | | | performed at [facility], [address] | | LAB | | | | [address], | | | | | | [place] [address] | | | | + + + + + + | Anion Gap | 9Comment: Testing | 5 - 20 mmol/L | EXTERNAL | | | | performed at [facility], [address] | | LAB | | | | [address], | | | | | | [place] [address] | | | | + + + + + + | Glucose, | 115 (H)Comment: Testing | 65 - 99 mg/dL | EXTERNAL | | | Fasting | performed at [facility], [address] | | LAB | | | | [address], | | | | | | [place] [address] | | | | + + + + + + | BUN | 16Comment: Testing | 8 - 25 mg/dL | EXTERNAL | | | | performed at [facility], [address] | | LAB | | | | [address], | | | | | | [place] [address] | | | | + + + + + + | Creatinine | 0.98Comment: Testing | 0.70 - 1.30 | EXTERNAL | | | | performed at [facility], [address] | mg/dL | LAB | | | | [address], | | | | | | [place] [address] | | | | + + + + + + | BUN/Creatin | 16Comment: Testing | | EXTERNAL | | | ine Ratio | performed at [facility], [address] | | LAB | | | | [address], | | | | | | [place] [address] | | | | + + + + + + | Calcium | 9.9Comment: NOTE NEW | 8.5 - 10.5 | EXTERNAL | | | | REFERENCE RANGETesting | mg/dL | LAB | | | | performed at [facility], [address] | | | | | | [facility], | | | | | | [place] [address] | | | | + + + [...] | | | | | | at [facility], [address] | | | | | | [facility], | | | | | | [place] [address] | | | | + + + [...]
--- OUTSIDE RECORDS SUMMARY | ~2019-07-23 | XMS | Encounter Summary ---
Demographics + + + | Address | [address] | | | [place] [address] | + + + | Home Phone [...] Team Providers + +------+ + | Care Freight Car Builder Name | Role | Phone | [...] [address] | RN | ([facility]) | | | | [place], | | | | | | [place] [address] | | | | | | [phone] | | | +--------+ + + + [...] | | | | | [address]INDER Torres [place] | | | | | | [address] | | | | | | | [...] F | | | | | | [place] [address] | | | | | | [phone] | | | | | | | | +--------+ + + + + | 10/21/ | Office | Cardiology | Nav Foley, | | | 2019 | Visit | | [address] | | | | | | [place] [address] | | | | | | [phone] | | | | | | | | +--------+ + + + + documented as of this encounter Visit Diagnoses + + | Diagnosis | + + | Panlobular emphysema (HCC) Other emphysema | + + documented in this encounter"
--- OUTSIDE RECORDS SUMMARY | ~2019-07-23 | XMS | Encounter Summary ---
Demographics + + + | Address | [address] | | | [place] [address] | + + + | Home Phone [...] + + | Author | [facility] | | | and [place] | + + + | Organization | [facility] | | | and [...] Team Providers + +------+ + | Care Advertising Clerk Name | Role | Phone | [...] [place] | | | | | [facility] [place] | [address] | | | | | [address] | | | | | | [phone] | | | +--------+ + + + [...] [place] | | | | | | [address] | | | | | | | [...] [place] | | | | | | [place] [address] | | | | | | [phone] | | | | | | | | +--------+ + + + + | 10/21/ | Office | Cardiology | Nav Foley, | | | 2019 | Visit | | MD [address] | | | | | | [place] [address] | | | | | | [phone] | | | | | | | [...] PV maxP.92 mmHg PV Vmax: 0.99 m/s Radio Television Announcer: | | | Authenticated by: LIZBET LYNN MD Report Date/Time: -- | | | [id number]:34 | | + + + + + [...] cmLVPWd: 1.13 cmLVOT Area: | | 5.09 [id number] Diam: 2.54 cm%FS: 1.72 %EF(Teich): 3.94 %ESV(Teich): [...] (A-L): 45.03 | | ml/m2LAAs A2C: 31.66 [id number] A-L A2C: 147.72 mlLALs A2C: 5.75 cmLAAs A4C: 21.81 | | io3EADQW A-L A4C: 68.38 mlLALs A4C: 5.90 cmRAAs: 25.43 vy4ZZBNC A-L: 100.41 | | mlRAESV MOD: 92.04 mlRALs: 5.46 cmAo Diam: 3.82 cmLA Diam: 4.65 cmLA/Ao: | | 1.21TAPSE: 2.41 cmAV maxP.90 mmHgAV meanP.40 mmHgAV Vmax: 1.21 m/Fabricio | | Vmean: 0.87 m/Fabricio VTI: 23.83 cmAVA Vmax: 3.69 cm2AVA (VTI): 3.60 kd2ZHOY Vmax: | | 0.00 cm2/m2AVAI (VTI): 0.00 cm2/m2LVOT maxP.10 mmHgLVOT meanP.59 mmHgLVSI | | Dopp: 37.97 ml/m2LVSV Dopp: 85.81 mlLVOT Vmax: 0.88 m/sLVOT Vmean: 0.59 m/sLVOT | | VTI: 16.83 cmMV A Frank: 0.65 m/sMV DecT: 257.92 msMV E Frank: 0.47 m/sMV E/A | | Ratio: 0.73MV PHT: 74.79 msMVA By PHT: 2.94 an9Vfnopq e': 0.04 m/sSeptal E/e': | | 11.67Lateral e': 0.04 m/sLateral E/e': 10.11PV maxP.92 mmHgPV Vmax: 0.99 | | m/s Radio Television Announcer:Authenticated by: Devan LEE Date/Time: -- | | [id number]:9:34 IMPRESSION: 1. Overall left ventricular systolic function [...] |PV Vmax: 0.99 m/s | | | |Radio Television Announcer: | |Authenticated by: LIZBET LYNN MD | |Report Date/Time: [id number]:9:34 | | | |IMPRESSION: | |1. Overall [...]
--- OUTSIDE RECORDS SUMMARY | ~2019-07-23 | XMS | Encounter Summary ---
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 | complications (HCC); | | | | [address] [place], [place] | [place] [address] | Encounter for | | | | [address] | | therapeutic drug | | | | [phone] | | level monitoring | +--------+ + [...] [place] | | | | | | [address] | | | | | | | [...] | | | | | [place] [address] | | | | | | [phone] | | | | | | | | +--------+ + + + + | 10/21/ | Office | Cardiology | Nav Foley, | | | 2019 | Visit | | [address] | | | | | | [place] [address] | | | | | | [phone] | | | | | | | [...]
--- OUTSIDE RECORDS SUMMARY | ~2019-07-23 | XMS | Encounter Summary ---
Demographics + + + | Address | [address] | | | [place] [address] | + + + | Home Phone [...] + + + | Author | [facility] | | | and [place] | + + + | Organization | [facility] [...] Providers + +------+ + | Care Manufacturing Chief Engineer Name | Role | Phone | [...] | | | | diaphragm | Sailaja Chiagn, | HOSPITAL | | | | | Procedures | MD [address] | [address] | | | | | [place] [address]iff | [address] | AVE | | | | | Test | [place], | [place], [place] | | | | | | [place] [address] | [address] | | | | | | | Phone: | | | | | | | [phone] | | | | | | | Fax: | | | | | | | [phone] | +--------+--------+ + + + + Reason [...] | | pulmonary | PA-C [address] | | | | | disease, | [address] | [place], | | | | | unspecified | Ave | [place] [address] | | | | | ([facility]) | [place], | | | | | | Procedures | [place] | | | | | | NEW PT | [address] | | | | | | CONSULT | Phone: | | | | | | | [phone] | | | | | | | Fax: | | | | | | | [phone] | | +--------+--------+ + + + + Encounter Details +--------+---------+ + + + | Date | Type | Department | Care Team | Description | +--------+---------+ + + + | 10/18/ | Office | [facility] | Lyn, | Dyspnea on exertion; | | 2015 | Visit | PULMONARY [address] | Sailaja Chiang MD | Elevated left | | | | [place], | | diaphragm; | | | | [place] [address] | | Panlobular emphysema | | | | [phone] | | ([facility]); Non-ischemic | | | | | | [...] see if it works. Schedule this at [facility]. Do an overnight oxygen test through [facility]. Call the [facility] before yo u pick it up to make sure they have a box available. You will machine pecan picker a box at the [facility] [employer]. Do the test on room air. Wear [...] years ago. He kinsey mbcriss going to [facility] ER years ago for pneumonia, a COPD [...] mentioned something about being sen t to [facility] at the time). In the midst here, [...] at another follow up). He saw the COMMERCIAL ROOFING ESTIMATOR from [facility] cardiology in March 2015, and was noted to require a generator prescott e for his pacemaker defibrillator. This was performed in April. At his last note, [facility] his generator change, Dr. Foley mentions that he feels that his shortness of carol ath is related to his COPD. His most recent EF is 35-40% on echo in April. He was then seen in the ER at [facility] a total of 4 times. In April [...] far, sometimes 2-3 blocks. He has a Fair Observer tair climber at home, but has not [...] Years of Education: N/A Occupational History Retired [employer] Social History Main Topics Smoking status: Never Smoker Smokeless tobacco: Never Used Alcohol Use: No Comment: 1 every 5 years or so Drug Use: No Sexual Activity: None Other Topics Concern None Social History Narrative Lives: [place] With: Self Grew up: [place] Has previously lived in: [place] Exposure to toxic chemicals: No Exposure to asbestos: No Exposure to tuberculosis: No Has had a PPD or Quantiferon before: Not that he knows of. Has pets at home: Cat Has ever owned birds: Yes an owl back in the s. Other animal exposures: Rabbits, lots of cats and dogs. Hobbies: Going to the [employer]. Allergies: Allergies Allergen Reactions Codeine Anaphylaxis Meperidine [...] made to ensure accuracy; however, inadvertent computerized director of global talent errors may be pre sent. Electronically signed [...] [place] | | | | | | [id number] | | | | | | | [...] | | | | | [place] [address] | | | | | | [phone] | | | | | | | | +--------+ + + + + | 10/21/ | Office | Cardiology | Nav Foley, | | | 2019 | Visit | | MD [address] | | | | | | [place] [address] | | | | | | [phone] | | | | | | | [...]
--- OUTSIDE RECORDS SUMMARY | ~2019-07-23 | XMS | Clinical Summary ---
Demographics + + + | Address | [address] | | | [place] [address] | + + + | Home Phone | | + + + | Preferred Language | Unknown | + + + | Marital Status | | + + + | Hindu Affiliation | Unknown | + + + | Race | Unknown | + + + | Ethnic Group | Unknown | + + + Author + + + | Author | [facility] | | | and [place] | + + + | Organization | [facility] | [...] Team Providers + +------+ + | Care Regulatory Consultant Name | Role | Phone | [...] + +---------+------+------+-------+ | furosemide (LASIX) | Take 20 mg by mouth | | 0 | 03/1 | | Activ | | 20 mg tablet | Daily. | | | 1/20 | | e [...] | | + + + +---------+------+------+-------+ | bisoprolol | Take 1 tablet by | 30 | 11 | 12/0 | | Activ | | (ZEBETA) 5 mg tablet | mouth Daily. Start | tablet | | 2/20 | | e | | | with 2.5 mg prior to | | | 19 | | | | | bedtime and | | | | | | | | increase to 5 mg in | | | | | | | | 2 weeks | | | | | | + + + +---------+------+------+-------+ | metoprolol | Take 12.5 mg by | | 0 | 01/0 | 12/0 | Disco | | succinate | mouth Daily. | | | 09/08 | 10/09 | ntinu | | (TOPROL-XL) 25 mg 24 | | | | 19 | 19 | ed | | hr tablet | | | | | | (Alte | | | | | | | | rnate | | | | | | | | | | | | | | | | thera | | | | | | | | py) | + + + +---------+------+------+-------+ Active Problems + + + | Problem | Noted Date | + + + | Encounter for monitoring diuretic therapy | 07/21/2019 | + + + | History of TIA (transient ischemic attack) | 07/21/2019 | + + + + + | Overview: 04/15/2018: Ad[facility] and [facility] with consult form stroke team at [facility]. 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 Chiang in January | | 2009.Generator change by Dr. Delarosa in 2014 viva xt VALLEZ FILTER OPERATOR D MDT | | number [id number].Patient has a 5076 atrial lead Medtronic. 6947 [...] | +--------+ + + + + | 07/21/ | Office | Cardiology | Poppy Rodriguez | Non-ischemic | | 2019 | Visit | | GÓMEZ Beltran | cardiomyopathy (HCC) | | | | | | (Primary Dx); | | | | | | Cardiac | | | | | | resynchronization | | | | | | therapy | | | | | | defibrillator | | | | | | (VALLEZ FILTER OPERATOR-D) in place; | | | | [...] | | | | secondhand smoke | +--------+ + + + + | 07/02/ | Telephone | Cardiology | Constantin Chavez, | Cardiac Problem | | 2019 | | | MD | | +--------+ + + + + | 06/18/ | Procedure | Cardiology | Nav Foley, | Palpitations | | 2019 | visit | | MD | | +--------+ + + + + | 06/18/ | Documentati | Cardiology | Sharron Khan, | Other (end of study) | | 2019 | on | | Technologist | | +--------+ + + + + | 06/04/ | Office | Cardiology | Alaina Nav N, | Palpitations | | 2018 | Visit | | MD | (Primary Dx) | +--------+ + + + + | 06/02/ | Procedure | Cardiology | | Non-ischemic | | 2018 | visit | | | cardiomyopathy (HCC) | | | | | | (Primary Dx); | | | | | | Non-sustained | | | | | | ventricular | | | | | | tachycardia (HCC); | | | | | | Syncope and collapse | +--------+ + + + + from [...] | Respiratory Rate | 18 | 10/28/2018 12:34 PM | | | | | PDT [...] [place] | | | | | | [address] | | | | | | | [...] F | | | | | | [place] [address] | | | | | | [phone] | | | | | | | | +--------+ + + + + | 10/21/ | Office | Cardiology | Nav Foley, | | | 2019 | Visit | | [address] | | | | | | [place] [address] | | | | | | [phone] | | | | | | | [...] | 06/13/2006 | | | Pneumococcal 65+ (1 | 2 | | | | of 2 - [...] + + | Vaccine: Influenza | | 05/09/2011 | | | (#1) | 9 | | | + + + + + Procedures + +--------+ + + + | [...] defibrillator | | | | | | (VALLEZ FILTER OPERATOR-D) in place | | | | | [...] | | + +--------+ + + + from Last 3 Months Results ECG 12 lead (07/21/2019 3:35 PM [...] | | | | | by [facility] Read Only, | | | | | | [facility] ([id number]), | | | | | | medical transcription editor Darwin Bob | | | | | | (152) on 07/21/2019 | | | | | [...] | | | + +---------+ + + Device Interrogation - Remote (06/02/2019 8:55 AM PDT) + + + | Narrative | Performed At | + + + | Germain Boyle | [facility] | | Navid, Technologist 06/02/2019 9:10ICD REMOTE INTERROGATION | | | REPORT Name: Jared Blake Jarad PCP: Carla Murphy PA-C | | | : 1945MRN: [id number] Primary cardiology provider: Poppy | | | Ruby Rodriguez Primary electrophysiology provider: Constantin Chavez | | | Device copying machine repairer: Medtronic Device type: Biventricular Battery | | [...] | the last interrogation. Testing reviewed by: Clarivoy Fransisca Shoemaker | | | | | [...] | | | | |Testing reviewed by: Clarivoy Fransisca Shoemaker | | | | | | | | | | | | | | + + + + +---------+ + + | Performing | Address | City/State/Zipcode | Phone Number | | Organization | | | | + +---------+ + + | [facility] | | | | + +---------+ + + from Last 3 Months Insurance + +--------+ +--------+ +---------+--------+ | Payer | Benefi | Subscriber | Effect | Phone | Address | Type | | | t Plan | ID | mark | | | | | | / | | Dates | | | | | | Group | | | | | | + +--------+ +--------+ +---------+--------+ | MEDICARE | MEDICA | [id number] | 10/19/19 | [phone] | | Medica | | | RE | | 13-Pre | 5 | | re | | | PART A | | sent | | | | | | AND B | | | | | | + +--------+ +--------+ +---------+--------+ | MEDICARE | MEDICA | [id number] | 05/31/ | [phone] | | Medica | | | RE | | 2019-P | 5 | | re | | | PART A | | resent | | | | | | AND B | | | | | | + +--------+ +--------+ +---------+--------+ | [employer] | TRANSA | [id number] | 10/19/19 | | | Indemn | | INSURANCE | [employer] | | 15-Pre | | | ity | | | LIFE | | sent | | | | | | [place] | | | | | | + +--------+ +--------+ +---------+--------+ | [employer] | TRANSA | [id number] | 10/19/19 | | | Indemn | | INSURANCE | [employer] | [id number] | 15-Pre | | | ity | [...] [place] | al/Fam | | 1945 | [phone] | [place], [place] | | | chas | | | 6 (Home) | [phone] | + +--------+ +--------+ + + | Jared Abraham | Person | Self | 08/06/ | | 2015 [address] | | [place] | al/Fam | | 1945 | [phone] | [place], [place] | | | chas | | | 6 (Home) | [phone] | + +--------+ +--------+ + + Advance Directives + + + + + | Type | Date Recorded | Patient | Explanation | | | | Maintenance Engineer | | + + + + + | Power of | | | | | Lithopress Operator | | | | + + + + + | Advance | 10/19/2015 1:30 | | | | Directive | PM | | | + + + + +
--- OUTSIDE RECORDS SUMMARY | ~2019-07-23 | XMS | Encounter Summary ---
Demographics + + + | Address | [address] | | | [place] [address] | + + + | Home Phone | | + + + | Preferred Language | Unknown | + + + | Marital Status | | + + + | Baptist Affiliation | Unknown | + + + | Race | Unknown | + + + | Ethnic Group | Unknown | + + + Author + + + | Author | [facility] | | | and [place] | + + + | Organization | [facility] | | [...] Team Providers + +------+ + | Care Ocularist Name | Role | Phone | + +------+ + | Carla Murphy | PCP | | | PA-C | | | + +------+ + Encounter Details +--------+ + + + + | Date | Type | Department | Care Team | Description | +--------+ + + + + | 01/31/ | Documentati | [facility] | Offenstein, | | | 2016 | on | [facility] | Sailaja Chiang MD | | | | | INFORMATION | | | | | | MANAGEMENT | | | | | | [phone] | | | +--------+ + + + [...] f rom the original. Referral Referral # [id number] Referral Information Referral # Creation Date Referral Status Status Update [id number] 01/21/2016 Authorized 01/24/2016:Status History. Status Reason Referral Type Referral Reasons Referral Class No Approval Necessary - Patient Tracking Evaluate & Treat none Outgoing To Specialty To Provider To Location/POS To Department none none [facility] PULMONOLOG[facility] none Vendor Referred By By Location/POS By Department none Sailaja B Offenstein none [facility] Priority Start Date Expiration Date Referral Entered By Routine 01/21/2016 07/19/2016 LYNDSAY LYNN Visits Requested Visits Authorized Visits Completed Visits Scheduled 1 1 Procedure Information Procedure Modifiers Provider Requested Approved [id number] (CPT) - [place] OFFICE OUTPATIENT VISIT 25 MINUTES 1 1 Authorizing Provider Authorizing Provider Diagnosis Information Diagnosis J44.9 (ICD-10-CM) - 496 (ICD-9-CM) - COPD (chronic obstructive pulmonary disease) ([facility]) Active Insurance as of 02/01/2016 MEDICARE - MEDICARE PART A AND B Payor Plan Insurance Group Employer/Plan Group MEDICARE MEDICARE PART A AND B Payor Plan Address Payor Plan Phone Number Effective From Effective To [address] 10/18/2012 BENJA BELCHER [address] Subscriber Name Subscriber Date Member ID FRANCI VELÁZQUEZ 1945 [id number] Guarantor Name (ID) Guarantor Date Guarantor Address Guarantor Type FRANCI VELÁZQUEZ ([id number]) 1945 [address] [place] Personal/[place] [address] [employer] [place] Payor Plan Insurance Group Employer/Plan Group [employer] PLAN G Payor Plan Address Payor Plan Phone Number Effective From Effective To [address] 10/18/2014 Tacho ChaparroGIA [address] Subscriber Name Subscriber Date Member ID FRANCI VELÁZQUEZ 1945 [id number] Guarantor Name (ID) Guarantor Date Guarantor Address Guarantor Type FRANCI VELÁZQUEZ ([id number]) 1945 [address] [place] [address] Referral Notes Type Date User General 01/31/2016 2435 LYNDSAY LYNN Note Please send the following information for referral purposes. Status (Emergent/Urgent/Routine): routine External Referral Form ([facility]/Other):no Referred to Provider: [facility] Pulmonary Include: Patient Demographics Chart Notes (Provider Name/Date): Offenstein Referral Letter: no Procedure(s): if any Pathology: if any Imaging: yes Labs: most recent Other: any other pertinent pulmonary records Type Date User General 01/24/2016 1035 ASHOK DUARTE Summary ??> APPROVED> OFFENSTEIN> CONTINUITY OF CARE> [facility] PULMONOLOG[facility] Note APPROVED New - Scheduling Minimum Data Set | Provider Notes: | Payer: AND DEBORAH SUPP PLAN G | Subscriber Name: Self | & [id number] | Auth ID: Not required by payer | CPT Provided? Yes | Dx Code Provided? | Additional Contact Info: - NO ABN REQUIRED PER MED ASSETS [facility] - NO PA REQUIRED. FOLLOWS GUIDELINES PER CALL TO BRITTNEE. [phone] Type Date User General 01/21/2016 164LYNDSAY POOLE Note Referral to [facility] for continued care documented [...] [place] | | | | | | [address] | | | | | | | [...] | | | | | [place] [address] | | | | | | [phone] | | | | | | | | +--------+ + + + + | 10/21/ | Office | Cardiology | Nav Foley, | | | 2019 | Visit | | MD Santos [address] | | | | | | [facility] [address] | | | | | | [phone] | | | | | | | | +--------+ + + + + documented as of this encounter Visit Diagnoses Not on filedocumented in this encounter"
--- OUTSIDE RECORDS SUMMARY | ~2019-07-23 | XMS | Encounter Summary ---
Demographics + + + | Address | [address] | | | [place] [address] | + + + | Home Phone | | + + + | Preferred Language | Unknown | + + + | Marital Status | | + + + | Adventist Affiliation | Unknown | + + + | Race | Unknown | + + + | Ethnic Group | Unknown | + + + Author + + + | Author | [facility] | | | and [place] | + + + | Organization | [facility] | | | [...] Team Providers + +------+ + | Care Toilet Attendant Name | Role | Phone | [...] | PULMONARY [address] | RN | ([facility]) | | | | [place], | | | | | | [place] [address] | | | | | | [phone] | | | +--------+ + + + [...] | | | | | [address]ER Torres [place] | | | | | | [id number] | | | | | | | [...] F | | | | | | [place] [address] | | | | | | [phone] | | | | | | | | +--------+ + + + + | 10/21/ | Office | Cardiology | Nav Foley, | | | 2019 | Visit | | [address] | | | | | | [place] [address] | | | | | | [phone] | | | | | | | | +--------+ + + + + documented as of this encounter Visit Diagnoses + + | Diagnosis | + + | Panlobular emphysema (HCC) Other emphysema | + + documented in this encounter"
--- OUTSIDE RECORDS SUMMARY | ~2019-07-23 | XMS | Encounter Summary ---
Demographics + + + | Address | [address] | | | [place] [address] | + + + | Home Phone [...] Team Providers + +------+ + | Care Cook Larder Name | Role | Phone | + [...] [address] | RN | ([facility]) | | | | [place], | | | | | | [place] [address] | | | | | | [phone] | | | +--------+ + + + [...] | | | | | [address]INDER Torres [place] | | | | | | [address] | | | | | | | [...] F | | | | | | [place] [address] | | | | | | [phone] | | | | | | | | +--------+ + + + + | 10/21/ | Office | Cardiology | Nav Foley, | | | 2019 | Visit | | [address] | | | | | | [place] [address] | | | | | | [phone] | | | | | | | | +--------+ + + + + documented as of this encounter Visit Diagnoses + + | Diagnosis | + + | Panlobular emphysema (HCC) Other emphysema | + + documented in this encounter"
--- OUTSIDE RECORDS SUMMARY | ~2019-07-23 | XMS | Encounter Summary ---
Demographics + + + | Address | [address] | | | [place] [address] | + + + | Home Phone [...] Team Providers + +------+ + | Care Telephone Lines Repairer Name | Role | Phone | + +------+ + | Carla Murphy | PCP | | | PA-C | | | + +------+ + Encounter Details +--------+ + + + + | Date | Type | Department | Care Team | Description | +--------+ + + + + | 03/15/ | Orders Only | [facility] | Conversion | | | 2016 | | CARDIOLOGY DAVIS | Transaction, | | | | | [address] | Provider Unknown | | | | | [place], [place] | [phone] | | | | | [address] | (Fax) | | | | | [phone] | | | +--------+ + + + [...] | | | | | [place]ER [place], [place] | | | | | | [address] | | | | | | | [...] F | | | | | | [place] [address] | | | | | | [phone] | | | | | | | | +--------+ + + + + | 10/21/ | Office | Cardiology | Nav Foley, | | | 2019 | Visit | | [address] | | | | | | [place] [address] | | | | | | [phone] | | | | | | | [...] | + +--------+ + + + | RED CELL | 5.24 | 4.3 - 5.7 10 | EXTERNAL | | | COUNT | | | LAB | | + +--------+ + + + | Hgb | 15.7 | 13.5 - 18.0 | [...]
--- OUTSIDE RECORDS SUMMARY | ~2019-07-23 | XMS | Encounter Summary ---
Demographics + + + | Address | [address] | | | [place] [address] | + + + | Home Phone [...] | Author | [facility] | | | and [place] | + [...] Team Providers + +------+ + | Care Dural Mechanic Name | Role | Phone | [...] | PULMONARY [address] | RN | ([facility]) | | | | [place], | | | | | | [place] [address] | | | | | | [phone] | | | +--------+ + + + [...] | | | | | [address]INDER Torres [place] | | | | | | [id number] | | | | | | | [...] F | | | | | | [place] [address] | | | | | | [phone] | | | | | | | | +--------+ + + + + | 10/21/ | Office | Cardiology | Nav Foley, | | | 2019 | Visit | | [address] | | | | | | [place] [address] | | | | | | [phone] | | | | | | | | +--------+ + + + + documented as of this encounter Visit Diagnoses + + | Diagnosis | + + | Panlobular emphysema (HCC) Other emphysema | + + documented in this encounter"
--- OUTSIDE RECORDS SUMMARY | ~2019-07-23 | XMS | Encounter Summary ---
Demographics + + + | Address | [address] | | | [place] [address] | + + + | Home Phone [...] Team Providers + +------+ + | Care Seamless Hosiery Knitter Name | Role | Phone | + +------+ + | Carla Murphy | PCP | | | PA-C | | | + +------+ + Encounter Details +--------+ + + + + | Date | Type | Department | Care Team | Description | +--------+ + + + + | 05// | Orders Only | [facility] | Gretchen Joy, | | | 2017 | | CARDIOLOGY [place] Donato MD [address] | | | | | [address] | [place], [place] | | | | | [place], [place] | [address] | | | | | [address] | | | | | | [phone] | | | +--------+ + + + [...] [place] | | | | | | [address] | | | | | | | [...] F | | | | | | [place] [address] | | | | | | [phone] | | | | | | | | +--------+ + + + + | 10/21/ | Office | Cardiology | Nav Foley, | | | 2019 | Visit | | [address] | | | | | | [place] [address] | | | | | | [phone] | | | | | | | [...]
--- OUTSIDE RECORDS SUMMARY | ~2019-07-23 | XMS | Encounter Summary ---
Demographics + + + | Address | [address] | | | [place] [address] | + + + | Home Phone [...] Team Providers + +------+ + | Care Auto Collision Repair Instructor Name | Role | Phone | [...] | | [address] | [place], [place] | | | | | [place], [place] | [address] | | | | | [address] | | | | | | [phone] | | | +--------+ + + + [...] [place] | | | | | | [address] | | | | | | | [...] F | | | | | | [place] [address] | | | | | | [phone] | | | | | | | | +--------+ + + + + | 10/21/ | Office | Cardiology | Nav Foley, | | | 2019 | Visit | | [address] | | | | | | [place] [address] | | | | | | [phone] | | | | | | | [...] 9.77 RAP: 3 mmHg | | | Programming Equipment Operator: NIGEL Authenticated by: Gretchen Joy Report | | | Date/Time: 09-26-2017 7:40:19 | | + + + + ---+ | Procedure Note | + ---+ | Mike Rad Conversion - 04/10/2019 3:23 PM PDT [...] mlLAESV Index (A-L): 37.87 ml/m2LAAs A2C: 22.69 [id number] | | A-L A2C: 93.63 mlLALs A2C: 4.66 cmLAAs A4C: 19.88 [id number] A-L A4C: 77.98 mlLALs | | A4C: 4.30 cmRAAd: 23.19 [id number] A-L: 97.65 mlRAEDV MOD: 89.83 mlRALd: 4.67 | | cmTAPSE: 2.19 cmAV maxP.27 mmHgAV meanP.41 mmHgAV Vmax: 1.03 m/Fabricio | | Vmean: 0.73 m/Fabricio VTI: 19.23 cmAVA Vmax: 4.21 cm2AVA (VTI): 4.42 [id number] Vmax: | | 0.00 cm2/m2AVAI (VTI): 0.00 cm2/m2LVOT maxP.13 mmHgLVOT meanP.63 mmHgLVSI | | Dopp: 36.18 ml/m2LVSV Dopp: 85.04 mlLVOT Vmax: 0.88 m/sLVOT Vmean: 0.61 m/sLVOT | | VTI: 17.26 cmMV E Frank: 0.83 m/sMV DecT: 110.72 msSeptal e': 0.09 m/sSeptal | | E/e': 8.70Lateral e': 0.08 m/sLateral E/e': 9.77RAP: 3 mmHg Programming Equipment Operator: | | DBSAuthenticated by: Gretchen [facility] Date/Time: 09-26-2017 7:40:19 IMPRESSION: 1. | | [...] | |RAP: 3 mmHg | | | |Programming Equipment Operator: DBS | |Authenticated by: Gretchen Joy | [...]
--- OUTSIDE RECORDS SUMMARY | ~2019-07-23 | XMS | Encounter Summary ---
Demographics + + + | Address | [address] | | | [place] [address] | + + + | Home Phone [...] Team Providers + +------+ + | Care Right Of Way Worker Name | Role | Phone | + +------+ + | Carla Murphy | PCP | | | PA-C | | | + +------+ + Encounter Details +--------+ + + + + | Date | Type | Department | Care Team | Description | +--------+ + + + + | 06/18/ | Procedure | [facility] | Nav Foley, | Palpitations | | 2019 | visit | CARDIOLOGY [place] | [address] | | | | | [address] | [place] [address] | | | | | [place], [place] | [phone] | | | | | [address] | | | | | | [phone] | | | +--------+ + + + [...] - 06/18/2019 3:00 PM PDT30 day telemetry [id number] cardiac monit or placed on patient. EOB/Billing information discussed. Instructions given and understood. [facility] or monitor questions. documented [...] [place] | | | | | | [address] | | | | | | | [...] | | | | | [place] [address] | | | | | | [phone] | | | | | | | | +--------+ + + + + | 10/21/ | Office | Cardiology | Nav Foley, | | | 2019 | Visit | | MD [address] | | | | | | [place] [address] | | | | | | [phone] | | | | | | | | +--------+ + + + + documented as of this encounter Visit Diagnoses + + | Diagnosis | + + | Palpitations | + + documented in this encounter"
--- OUTSIDE RECORDS SUMMARY | ~2019-07-23 | XMS | Encounter Summary ---
Demographics + + + | Address | [address] | | | [place] [address] | + + + | Home Phone [...] Providers + +------+ + | Care Manager Process Improvement Name | Role | Phone | + [...] MANAGEMENT | | | | | | [phone] | | | +--------+ + + + [...] f rom the original. Referral Referral # [id number] Referral Information Referral # Creation Date Referral Status Status Update [id number] 01/21/2016 Authorized 01/24/2016:Status History. Status Reason Referral Type Referral Reasons Referral Class No Approval Necessary - Patient Tracking Evaluate & Treat none Outgoing To Specialty To Provider To Location/POS To Department none none [facility] PULMONOLOG[facility] none Vendor Referred By By Location/POS By Department none Sailaja B Offenstein none [facility] Priority Start Date Expiration Date Referral Entered By Routine 01/21/2016 07/19/2016 LYNDSAY LYNN Visits Requested Visits Authorized Visits Completed Visits Scheduled 1 1 Procedure Information Procedure Modifiers Provider Requested Approved [id number] (CPT) - [place] OFF[place]PAT[place]ISIT 25 MINUTES 1 1 Authorizing Provider Authorizing Provider Diagnosis Information Diagnosis J44.9 (ICD-10-CM) - 496 (ICD-9-CM) - COPD (chronic obstructive pulmonary disease) ([facility]) Active Insurance as of 02/01/2016 MEDICARE - MEDICARE PART A AND B Payor Plan Insurance Group Employer/Plan Group MEDICARE MEDICARE PART A AND B Payor Plan Address Payor Plan Phone Number Effective From Effective To [address] 10/18/2012 BENJA BELCHER [address] Subscriber Name Subscriber Date Member ID FRANCI VELÁZQUEZ 1945 [id number] Guarantor Name (ID) Guarantor Date Guarantor Address Guarantor Type FRANCI VELÁZQUEZ ([id number]) 1945 [address] [place] Personal/[place] [id number] [employer] [place] Payor Plan Insurance Group Employer/Plan Group [employer] PLAN G Payor Plan Address Payor Plan Phone Number Effective From Effective To [address] 10/18/2014 Tacho ChaparroG[place] [address] Subscriber Name Subscriber Date Member ID FRANCI VELÁZQUEZ 1945 [id number] Guarantor Name (ID) Guarantor Date Guarantor Address Guarantor Type FRANCI VELÁZQUEZ ([id number]) 1945 [address] [place] Personal/[place] [address] Referral Notes Type Date User General 01/31/2016 8600 LYNDSAY LYNN Note Please send the following information for referral purposes. Status (Emergent/Urgent/Routine): routine External Referral Form ([facility]/Other):no Referred to Provider: [facility] Pulmonary Include: Patient Demographics Chart Notes (Provider Name/Date): Offenstein Referral Letter: no Procedure(s): if any Pathology: if any Imaging: yes Labs: most recent Other: any other pertinent pulmonary records Type Date User General 01/24/2016 1035 ASHOK DUARTE Summary ??> APPROVED> OFFENSTEIN> CONTINUITY OF CARE> [facility] PULMONOLOGY Note APPROVED New - Scheduling Minimum Data Set | Provider Notes: | Payer: AND DEBORAH SUPP PLAN G | Subscriber Name: Self | & [id number] | Auth ID: Not required by payer | CPT Provided? Yes | Dx Code Provided? | Additional Contact Info: - NO ABN REQUIRED PER MED ASSETS CODE COM[facility]IANCE [facility] SUPP - NO PA REQUIRED. FOLLOWS GUIDELINES PER CALL TO BRITTNEE. [phone] Type Date User General 01/21/2016 164LYNDSAY POOLE Note Referral to [facility] [...] [place] | | | | | | [address] | | | | | | | [...] | | | | | [place] [address] | | | | | | [phone] | | | | | | | | +--------+ + + + + | 10/21/ | Office | Cardiology | Nav Foley, | | | 2019 | Visit | | MD Santos [address] | | | | | | [facility] [address] | | | | | | [phone] | | | | | | | | +--------+ + + + + documented as of this encounter Visit Diagnoses Not on filedocumented in this encounter"
--- OUTSIDE RECORDS SUMMARY | ~2019-07-23 | XMS | Encounter Summary ---
Demographics + + + | Address | [address] | | | [place] [address] | + + + | Home Phone [...] Providers + +------+ + | Care Wool Hat Hydraulicker Name | Role | Phone | + +------+ + PCP | Unavailable | + +------+ + Encounter Details +--------+ + + + + | Date | Type | Department | Care Team | Description | +--------+ + + + + | 09/17/ | Hospital | [facility] | Conversion | | | 2015 | Encounter | [facility] | Transaction, | | | | | [address] | Provider Unknown | | | | | [place] | [phone] | | | | | [address] | | | | | | [phone] | | | +--------+ + + + [...] [place] | | | | | | [address] | | | | | | | [...] [place] | | | | | | [place] [address] | | | | | | [phone] | | | | | | | | +--------+ + + + + | 10/21/ | Office | Cardiology | Nav Foley, | | | 2019 | Visit | | [address] | | | | | | [place] [address] | | | | | | [phone] | | | | | | | | +--------+ + + + + documented as of this encounter Visit Diagnoses Not on filedocumented in this encounter"
--- OUTSIDE RECORDS SUMMARY | ~2019-07-23 | XMS | Encounter Summary ---
Demographics + + + | Address | [address] | | | [place] [address] | + + + | Home Phone [...] Team Providers + +------+ + | Care Parimutuel Clerk Name | Role | Phone | [...] | PULMONARY [address] | RN | ([facility]) | | | | [place], | | | | | | [place] [address] | | | | | | [phone] | | | +--------+ + + + [...] | | | | | [address] [place] | | | | | | [address] | | | | | | | [...] F | | | | | | [place] [address] | | | | | | [phone] | | | | | | | | +--------+ + + + + | 10/21/ | Office | Cardiology | Nav Foley, | | | 2019 | Visit | | [address] | | | | | | [place] [address] | | | | | | [phone] | | | | | | | | +--------+ + + + + documented as of this encounter Visit Diagnoses + + | Diagnosis | + + | Panlobular emphysema (HCC) Other emphysema | + + documented in this encounter"
--- OUTSIDE RECORDS SUMMARY | ~2019-07-23 | XMS | Encounter Summary ---
Demographics + + + | Address | [address] | | | [place] [address] | + + + | Home Phone [...] Team Providers + +------+ + | Care Wax Room Supervisor Name | Role | Phone | [...] [address] | RN | ([facility]) | | | | [place], | | | | | | [place] [address] | | | | | | [phone] | | | +--------+ + + + [...] | | | | | [address] [place] | | | | | | [address] | | | | | | | [...] F | | | | | | [place] [address] | | | | | | [phone] | | | | | | | | +--------+ + + + + | 10/21/ | Office | Cardiology | Nav Foley, | | | 2019 | Visit | | [address] | | | | | | [place] [address] | | | | | | [phone] | | | | | | | | +--------+ + + + + documented as of this encounter Visit Diagnoses + + | Diagnosis | + + | Panlobular emphysema (HCC) Other emphysema | + + documented in this encounter"
--- OUTSIDE RECORDS SUMMARY | ~2019-07-23 | XMS | Encounter Summary ---
Demographics + + + | Address | [address] | | | [place] [address] | + + + | Home Phone [...] Team Providers + +------+ + | Care Plate Mill Mill Hand Name | Role | Phone | [...] + + | 06/18/ | Documentati | [facility] | Erin Sharron Floresita, | Other (end of study) | | 2019 | on | [facility] | Technologist | | | | | [address] | | | | | | [place] | | | | | | [address] | | | | | | [phone] | | | +--------+ + + + [...] [place] | | | | | | [address] | | | | | | | [...] | | | | | [place] [address] | | | | | | [phone] | | | | | | | | +--------+ + + + + | 10/21/ | Office | Cardiology | Nav Foley, | | | 2019 | Visit | | [address] | | | | | | [place] [address] | | | | | | [phone] | | | | | | | | +--------+ + + + + documented as of this encounter Visit Diagnoses + + | Diagnosis | + + | Palpitations | + + documented in this encounter"
--- OUTSIDE RECORDS SUMMARY | ~2019-07-23 | XMS | Encounter Summary ---
Demographics + + + | Address | [address] | | | [place] [address] | + + + | Home Phone [...] Team Providers + +------+ + | Care Flight Teacher Name | Role | Phone | + +------+ + PCP | Unavailable | + +------+ + Encounter Details +--------+ + + + + | Date | Type | Department | Care Team | Description | +--------+ + + + + | 10/16/ | Hospital | [facility] | Conversion | Pain | | 2015 | Encounter | CONVERSION [address] | Transaction, | | | | | [address] | Provider Unknown | | | | | [place] | [phone] | | | | | [address] | | | | | | [phone] | | | +--------+ + + + [...] [place] | | | | | | [address] | | | | | | | [...] [place] | | | | | | [place] [address] | | | | | | [phone] | | | | | | | | +--------+ + + + + | 10/21/ | Office | Cardiology | Nav Foley, | | | 2019 | Visit | | MD Santos [address] | | | | | | [place] [address] | | | | | | [phone] | | | | | | | [...]
--- OUTSIDE RECORDS SUMMARY | ~2019-07-23 | XMS | Clinical Summary ---
Demographics + + + | Address | [address] | | | [place] [address] | + + + | Home Phone | | + + + | Preferred Language | Unknown | + + + | Marital Status | | + + + | Taoist Affiliation | Unknown | + + + | Race | Unknown | + + + | Ethnic Group | Unknown | + + + Author + + + | Author | [employer] [facility] [employer] (Historical as of | | | 04-05-19) | + + + | Organization | [facility] [employer] [facility] (Historical as of | | | 04-05-19) [...] Team Providers + +------+ + | Care Realtime Reporter Name | Role | Phone | [...] DM II (diabetes mellitus, type II), controlled ([facility]) | 08/18/2018 | + + [...] 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 Chiang in January | | 2009.Generator change by Dr. Delarosa in 2014 viva xt SERVICES ENGINEER D MDT | | number [id number].Patient has a 5076 atrial lead Medtronic. 6947 [...] QRS duration of over 160 ms. A SERVICES ENGINEER defibrillator | | was subsequently placed by [...] [place] | | | | | | [address] | | | | | | | [...] / Lot | + +--------+------+ +--------+--------+--------+ | Casting Assistant-D-05/17/2015Implanted: | Cardia | | [employer] - | [...] +------+-------+ + | MEDICARE | MEDICA | [id number] | | | [address] | | | RE | | | | [place] [address] | | | IP-OP | | | | | + +--------+ +------+-------+ + | COMMERCIAL OTHER | TRANSA | [id number] | | | | | | MERICA [...] MICHAEL | brinda/Serjio | | 1945 | [phone] | [place] | | | chas | | | 1964 | [address] | + +--------+ +--------+ + +
--- OUTSIDE RECORDS SUMMARY | ~2019-07-23 | XMS | Encounter Summary ---
Demographics + + + | Address | [address] | | | [place] [address] | + + + | Home Phone [...] Team Providers + +------+ + | Care Biostatistician Name | Role | Phone | + [...] + + | 06/04/ | Office | [facility] | Nav Foley, | Palpitations | | 2019 | Visit | CARDIOLOGY [place] | [address] | (Primary Dx) | | | | [address] | [place] [address] | | | | | [place] | [phone] | | | | | [address] | | | | | | [phone] | | | +--------+---------+ + + + [...] 12/06/18 1040 Encounter Date: 12/04/2018 Status: Signed Warehouse Shipping Receiving Clerk: Nav Foley MD (Physician) Related Notes: [...] mg by mouth nightly. Cholecalciferol (VITAMIN D3) 21344 UNITS CAPS Take 5,000 Int'l Units by [...] [place] | | | | | | [address] | | | | | | | [...] | | | | | | [place] [address] | | | | | | [phone] | | | | | | | | +--------+ + + + + | 10/21/ | Office | Cardiology | Alaina Nav N, | | | 2019 | Visit | | MD [address] | | | | | | [place] [address] | | | | | | [phone] | | | | | | | [...]
--- OUTSIDE RECORDS SUMMARY | ~2019-07-23 | XMS | Encounter Summary ---
Demographics + + + | Address | [address] | | | [place] [address] | + + + | Home Phone | | + + + | Preferred Language | Unknown | + + + | Marital Status | | + + + | Bahai Affiliation | Unknown | + + + [...] Team Providers + +------+ + | Care Can Tester Name | Role | Phone | [...] + + | 06/18/ | Documentati | [facility] | Erin Sharron Floresita, | Other (end of study) | | 2019 | on | [facility] | Technologist | | | | | [address] | | | | | | [place] | | | | | | [address] | | | | | | [phone] | | | +--------+ + + + [...] [place] | | | | | | [address] | | | | | | | [...] | | | | | | [place] [address] | | | | | | [phone] | | | | | | | | +--------+ + + + + | 10/21/ | Office | Cardiology | Nva Foley, | | | 2019 | Visit | | [address] | | | | | | [place] [address] | | | | | | [phone] | | | | | | | | +--------+ + + + + documented as of this encounter Visit Diagnoses + + | Diagnosis | + + | Palpitations | + + documented in this encounter"
--- OUTSIDE RECORDS SUMMARY | ~2019-07-23 | XMS | Encounter Summary ---
Demographics + + + | Address | [address] | | | [place] [address] | + + + | Home Phone [...] Team Providers + +------+ + | Care National Business Director Name | Role | Phone | [...] MD | oximetry) | | | | [place], | | | | | | [place] [address] | | | | | | [phone] | | | +--------+ + + + [...] [place] | | | | | | [address] | | | | | | | [...] [place] | | | | | | [place] [address] | | | | | | [phone] | | | | | | | | +--------+ + + + + | 10/21/ | Office | Cardiology | Nav Foley, | | | 2019 | Visit | | [address] | | | | | | [place] [address] | | | | | | [phone] | | | | | | | [...]
--- OUTSIDE RECORDS SUMMARY | ~2019-07-23 | XMS | Encounter Summary ---
Demographics + + + | Address | [address] | | | [place] [address] | + + + | Home Phone [...] Team Providers + +------+ + | Care Burner Shaft Name | Role | Phone | + +------+ + | Carla Murphy | PCP | | | PA-C | | | + +------+ + Encounter Details +--------+ + + + + | Date | Type | Department | Care Team | Description | +--------+ + + + + | 08/17/ | Hospital | [facility] | Therese Sarabia | Syncope, unspecified | | 2018 - | Encounter | [facility] | [address] | syncope type; | | | | CARE FLOOR [address] | [place] [address] | V-tach ([facility]) | | 08/19/ | | [address] | [phone] | | | 2017 | | [place], [place] | | | | | | [address] | | | | | | [phone] | | | +--------+ + + + [...] fro m the original. Discharge Summaries by Poil Christine MD at 08/19/18 0638 Author: Poli Christine MD Service: (none) Author Type: Physician Filed: 08/19/18 4186 Date of Service: 08/19/18 4353 Status: Signed Rehab Consultant: Poli Christine MD (Physician) [facility] Service: Hospitalist Discharge Summary Date [...] No discharge procedures on file. Follow up: [facility] [address] [facility] [address] Go to If symptoms worsen Carla Murphy PA-C [address] [place] [address] Schedule an [...] 0 Commonly known as: GLUCOPHAGE Vitamin D3 17188 units Caps Refills: 0 You might also [...] 1450 Date of Service: 08/19/181445 Status: Signed Rehab Consultant: Milagros Kirkland RN (Registered Nurse) Discharge paperwork [...] 08/19/18614 Date of Service: 08/19/18613 Status: Signed Rehab Consultant: Naveen Cadlwell RN (Registered Nurse) Pt having gas pains [...] 08/18/182054 Date of Service: 08/18/182045 Status: Signed Rehab Consultant: Poli Christine MD (Physician) [facility] Service: Hospitalist Progress Note Hospital [...] failure with depressed EF, sta tus post ICD/CERTIFIED OPHTHALMIC SURGICAL ASSISTANT insertion. Had been on digoxin outpatient. Digoxin [...] Date of Service: 08/18/18 1554 Status: Addendum Rehab Consultant: Milagros Kirkland RN (Registered Nurse) Related Notes: [...] Date of Service: 08/18/18 1501 Status: Signed Rehab Consultant: Milagros Kirkland RN (Registered Nurse) Assumed care. Report from KEEGAN Colvin. onver chetna Transaction, Provider Unknown - 08/18/2018 2:28 PM PST Nurse Progress Note by Marii Garza RN at 08/18/18 1428 Author: Marii Garza RN Service: (none) Author Type: Registered Nurse Filed: 08/18/18 1428 Date of Service: 08/18/181427 Status: Signed Rehab Consultant: Marii Garza RN (Registered Nurse) Patients pain [...] Date of Service: 08/18/18 1306 Status: Signed Rehab Consultant: Malena Ferro RPH (Pharmacist) Renal Dosing Monitoring: [...] Management by Yoon Michele RN at 08/18/18 1056 Author: Yoon Michele RN Service: (none) Author Type: Registered Nurse Filed: 08/18/18 1113 Date of Service: 08/18/18 1059 Status: Signed Rehab Consultant: Yoon Michele RN (Registered Nurse) 08/18/18 1000 [...] discussed discharge planning. Pt resides alone in [place] but is indep wi th all his [...] 08/18/18705 Date of Service: 08/18/18701 Status: Signed Rehab Consultant: Alize Rosas RN (Registered Nurse) Patient arrived [...] 08/18/18608 Date of Service: 08/18/18608 Status: Signed Rehab Consultant: Therese Sarabia DO (Physician) Dr. Roldan consulted [...] [place] | | | | | | [address] | | | | | | | [...] | | | | | [place] [address] | | | | | | [phone] | | | | | | | | +--------+ + + + + | 10/21/ | Office | Cardiology | Nav Foley, | | | 2019 | Visit | | MD [address] | | | | | | [place] [address] | | | | | | [phone] | | | | | | | [...] | | | Fingerstick | performed at [facility];[address] | | LAB | | | [address];[place], [place] | | | | | | [address] | | | | + + + [...] | | | Fingerstick | performed at [facility];[address] | | LAB | | | | [address];[place] | | | | | | [address] | | | | + + + [...] | | | Fingerstick | performed at [facility];[address] | | LAB | | | | [address];[place], [place] | | | | | | [address] | | | | + + + [...] | | | Fingerstick | performed at [facility] | | LAB | | | | [address];[place], [place] | | | | | | [address] | | | | + + + [...] PDT FRANCI HOLT CAROTID DOPPLER, | | [id number]/30/2018 10:53 AM HISTORY:73 years. Male. Syncope. Ventricular [...] | | | Fingerstick | performed at [facility];[address] | | LAB | | | [address];[place], [place] | | | | | | [address] | | | | + + + [...] | | | | | | ACUTE SC Testing | | | | | | performed at [facility];[address] | | | | | | [address];[place], [place] | | | | | | [address] | | | | + + + [...] | | | Basophils | performed at [facility], [address] | K/uL | LAB | | | | [address], | | | | | | [place] [address] | | | | + + + [...] | | | performed at [facility], [address] | uIU/mL | LAB | | | | [address], | | | | | | [place] [address] | | | | + + + [...] | | | | | [place] [address] | | | | + + + [...] | | | performed at [facility], [address] | | LAB | | | | [address], | | | | | | [place] [address] | | | | + + + [...] + + | Hemoglobin | 5.5Comment: The Taiwanese | 4.0 - 6.0 % | EXTERNAL [...] | | | | | performed at [facility], [address] | | | | | | [facility], | | | | | | [place] [address] | | | | + + + [...] EXTERNAL | | | | performed at [facility];[address] | | LAB | | | | [address];[place], [place] | | | | | | [address] | | | | + + + [...] | | | level | performed at [facility];[address] | ng/mL | LAB | | | | [address];[place], [place] | | | | | | [address] | | | | + + + [...] | | | Cholesterol | performed at [facility], [address] | | LAB | | | , | [place] [address], | | | | | Calculated, | [place] [address] | | | | | External | [...] | | | | | performed at [facility], [address] | | | | | | [facility], | | | | | | [place], [place] [address] | | | | + + + [...] | | | Fingerstick | performed at [facility];[address] | | LAB | | | | [address];[place], [place] | | | | | | [address] | | | | + + + [...] | | | | | | ACUTE SC Testing | | | | | | performed at [facility];[address] | | | | | | [facility];[place], [place] | | | | | | [address] | | | | + + + [...] LAB | | | | performed at [facility];[address] | | | | | | [address];[place], [place] | | | | | | [address] | | | | + + + [...]
--- OUTSIDE RECORDS SUMMARY | ~2019-07-23 | XMS | Encounter Summary ---
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 He did notice a difference the first day this was done. Per notes "Attem pted ASSISTANT PROFESSOR OF RADIOLOGY optimization today; however, any time LV offset was changed, patient became dizzy a nd felt near-syncopal. BP throughout was stable. Ultimately, reverted back to LV offset -40, as this was the only setting he felt well. Even AdaptiveCRT made him profoundly symptomatic . Unfortunately, given these symptoms, patient did not tolerate ASSISTANT PROFESSOR OF RADIOLOGY optimization. I did thornton ge him from DDD to DDDR, even though HR histograms showed good distribution of HRs, in hopes that this may give him improved activity tolerance." He is currently on a regimen of Spiriva one capsule inhaled daily. He notes he has run acro ss a couple of these that are empty. He contacted the oil gauger, and he did get 10 capsul es [...] [facility] He reports good compliance. He remains [...] Diagnosis Date COPD (chronic obstructive pulmonary disease) ([facility]) Allergic rhinitis seeing Dr. 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 Has pets at home: Cat Has ever owned birds: Yes an owl back in the s. Other animal exposures: Rabbits, lots of cats and dogs. Hobbies: Going to the [employer]. Allergies: Allergies Allergen Reactions Codeine Anaphylaxis Meperidine [...] made to ensure accuracy; however, inadvertent computerized palletizer errors may be pre sent. Electronically signed [...] F | | | | | | [place] [address] | | | | | | [phone] | | | | | | | | +--------+ + + + + | 10/21/ | Office | Cardiology | Nav Foley, | | | 2019 | Visit | | [address] | | | | | | [place] [address] | | | | | | [phone] | | | | | | | [...]
--- OUTSIDE RECORDS SUMMARY | ~2019-07-23 | XMS | Encounter Summary ---
Demographics + + + | Address | [address] | | | [place] [address] | + + + | Home Phone [...] Team Providers + +------+ + | Care Tip Banding Machine Operator Name | Role | Phone | + +------+ + | Carla Murphy | PCP | | | PA-C | | | + +------+ + Encounter Details +--------+ + + + + | Date | Type | Department | Care Team | Description | +--------+ + + + + | 03/01/ | Hospital | [facility] | [place], | Chronic obstructive | | 2016 | Encounter | [facility] | Sailaja Chiang MD | pulmonary disease, | | | | FUNCTION [address] | | unspecified COPD | | | | [place], | | type (HCC) | | | | [place] [address] | | | | | | [phone] | | | +--------+ + + + [...] | | | | | | [place] | | | | | | [address] | | | | | | | [...] | | | | | [place] [address] | | | | | | [phone] | | | | | | | | +--------+ + + + + | 10/21/ | Office | Cardiology | Nav Foley, | | | 2019 | Visit | | [address] | | | | | | [place] [address] | | | | | | [phone] | | | | | | | [...] PFT PULMONARY FUNCTION TESTING ORDERS Full PFT ([place] w/BD, lung volumes, diffusion)?: Yes (10/24/2015 3:47 [...] | | Sailaja Nicholson MD 10/24/2015 15:44 [facility] | | | [facility] CC: Carla Juarez PA-C | | [...] | | | | Nebulization, RT Once, Polina 10/19/15 | | PM PST | | | | | at 1500, For 1 dose, RT will | | | | | | | administer., | | | | | | + +--------+ +--------+------+------+ +---+---+ | | | +---+---+ documented in this encounter"
--- OUTSIDE RECORDS SUMMARY | ~2019-07-23 | XMS | Encounter Summary ---
Demographics + + + | Address | [address] | | | [place] [address] | + + + | Home Phone [...] Team Providers + +------+ + | Care Modern And Contemporary Art Curator Name | Role | Phone | + +------+ + | Carla Murphy | PCP | | | PA-C | | | + +------+ + Encounter Details +--------+ + + + + | Date | Type | Department | Care Team | Description | +--------+ + + + + | 08/17/ | Hospital | [facility] | Therese Sarabia | Syncope, unspecified | | 2018 - | Encounter | [facility] | [address] | syncope type; | | | | CARE FLOOR [address] | [place] [address] | V-tach ([facility]) | | 08/19/ | [address] | [phone] | | | 2017 | | [place], [place] | | | | | | [address] | | | | | | [phone] | | | +--------+ + + + [...] m the original. Discharge Summaries by Poli Chritsine MD at 08/19/18 0147 Author: Poli Christine MD Service: (none) Author Type: Physician Filed: 08/19/18 6397 Date of Service: 08/19/18 1933 Status: Signed Automobile Racer: Poli Christine MD (Physician) [facility] Service: Hospitalist Discharge Summary Date of [...] No discharge procedures on file. Follow up: [facility] [address] [facility] [address] Go to If symptoms worsen Carla Murphy PA-C [address] [place] [address] Schedule an [...] 0 Commonly known as: GLUCOPHAGE Vitamin D3 77548 units Caps Refills: 0 You might also [...] 1450 Date of Service: 08/19/181445 Status: Signed Automobile Racer: Milagros Kirkland RN (Registered Nurse) Discharge paperwork [...] 08/19/18614 Date of Service: 08/19/18613 Status: Signed Automobile Racer: Naveen Caldwell RN (Registered Nurse) Pt having [...] 08/18/182054 Date of Service: 08/18/182045 Status: Signed Automobile Racer: Poli Christine MD (Physician) [facility] Service: Hospitalist Progress Note Hospital Day: [...] failure with depressed EF, sta tus post ICD/CHIEF OPTOMETRY SERVICE insertion. Had been on digoxin outpatient. Digoxin [...] Date of Service: 08/18/18 1554 Status: Addendum Automobile Racer: Milagros Kirkland RN (Registered Nurse) Related Notes: [...] Date of Service: 08/18/18 1501 Status: Signed Automobile Racer: Milagros Kirkland RN (Registered Nurse) Assumed care. Report from KEEGAN Colvin. onver chetna Transaction, Provider Unknown - 08/18/2018 2:28 PM PST Nurse Progress Note by Marii Garza RN at 08/18/18 1428 Author: Marii Garza RN Service: (none) Author Type: Registered Nurse Filed: 08/18/18 1428 Date of Service: 08/18/181427 Status: Signed Automobile Racer: Mairi Garza RN (Registered Nurse) Patients pain went [...] Date of Service: 08/18/18 1306 Status: Signed Automobile Racer: Malena Ferro RPH (Pharmacist) Renal Dosing Monitoring: [...] Date of Service: 08/18/18 1059 Status: Signed Automobile Racer: Yoon Michele RN (Registered Nurse) 08/18/18 1000 [...] discussed discharge planning. Pt resides alone in [place] but is indep wi th all his [...] 08/18/18705 Date of Service: 08/18/18701 Status: Signed Automobile Racer: Alize Rosas RN (Registered Nurse) Patient arrived [...] 08/18/18608 Date of Service: 08/18/18608 Status: Signed Automobile Racer: Therese Sarabia DO (Physician) Dr. Roldan consulted [...] [place] | | | | | | [address] | | | | | | | [...] | | | | | [place] [address] | | | | | | [phone] | | | | | | | | +--------+ + + + + | 10/21/ | Office | Cardiology | Nav Foley, | | | 2019 | Visit | | MD [address] | | | | | | [place] [address] | | | | | | [phone] | | | | | | | [...] | | | Fingerstick | performed at [facility];[address] | | LAB | | | [address];[place], [place] | | | | | | [address] | | | | + + + [...] | | | Fingerstick | performed at [facility];[address] | | LAB | | | | [address];[place] | | | | | | [address] | | | | + + + [...] | | | Fingerstick | performed at [facility];[address] | | LAB | | | | [address];[place], [place] | | | | | | [address] | | | | + + + [...] | | | Fingerstick | performed at [facility] | | LAB | | | | [address];[place], [place] | | | | | | [address] | | | | + + + [...] PDT FRANCI HOLT CAROTID DOPPLER, | | [id number]/30/2018 10:53 AM HISTORY:73 years. Male. Syncope. Ventricular [...] | | | Fingerstick | performed at [facility];[address] | | LAB | | | [address];[place], [place] | | | | | | [address] | | | | + + + [...] | | | | | performed at [facility];[address] | | | | | | [address];[place], [place] | | | | | | [address] [...] | | | Basophils | performed at [facility], [address] | K/uL | LAB | | | | [address], | | | | | | [place] [address] | | | | + + + [...] | | performed at [facility], [address] | uIU/mL | LAB | | | | [address], | | | | | | [place] [address] | | | | + + + [...] | | | | | [place] [address] | | | | + + + [...] | | performed at [facility], [address] | | LAB | | | | [address], | | | | | | [place] [address] | | | | + + + [...] + + | Hemoglobin | 5.5Comment: The [place] Ca[place] Islander | 4.0 - 6.0 % | EXTERNAL [...] | | | | | performed at [facility], [address] | | | | | | [facility], | | | | | | [place] [address] | | | | + + + [...] EXTERNAL | | | | performed at [facility];[address] | | LAB | | | | [address];[place], [place] | | | | | | [address] | | | | + + + [...] | | | level | performed at [facility];[address] | ng/mL | LAB | | | | [address];[place], [place] | | | | | | [address] | | | | + + + [...] | | | Cholesterol | performed at [facility], [address] | | LAB | | | , | [place], | | | | | Calculated, | [place] [address] | | | | | External | [...] | | | | | performed at [facility], [address] | | | | | | [facility], | | | | | | [place], [place] [address] | | | | + + + [...] | | | Fingerstick | performed at [facility];[address] | | LAB | | | [address];[place], [place] | | | | | | [address] | | | | + + + [...] | | | | | performed at [facility];[address] | | | | | | [facility], [place] | | | | | | [address] | | | | + + + [...] LAB | | | | performed at [facility];[address] | | | | | | [address];[place], [place] | | | | | | [address] | | | | + + + [...]
--- OUTSIDE RECORDS SUMMARY | ~2019-07-23 | XMS | Encounter Summary ---
Demographics + + + | Address | [address] | | | [place] [address] | + + + | Home Phone [...] Team Providers + +------+ + | Care Bottom Stop Attacher Name | Role | Phone | + +------+ + PCP | Unavailable | + +------+ + Encounter Details +--------+ + + + + | Date | Type | Department | Care Team | Description | +--------+ + + + + | 05/11/ | Hospital | [facility] | Conversion | Pain | | 2015 | Encounter | CONVERSION DEP [address] | Transaction, | | | | | [address] | Provider Unknown | | | | | [place] | [phone] | | | | | [address] | | | | | | [phone] | | | +--------+ + + + [...] [place] | | | | | | [address] | | | | | | | [...] [place] | | | | | | [place] [address] | | | | | | [phone] | | | | | | | | +--------+ + + + + | 10/21/ | Office | Cardiology | Nav Foley, | | | 2019 | Visit | | MD [address] | | | | | | [place] [address] | | | | | | [phone] | | | | | | | [...]
--- OUTSIDE RECORDS SUMMARY | ~2019-07-23 | XMS | Encounter Summary ---
Demographics + + + | Address | [address] | | | [place] [address] | + + + | Home Phone [...] Team Providers + +------+ + | Care Legal Nurse Consultant Name | Role | Phone | [...] Chiang MD | | | | | [place], | | | | | | [place] [address] | | | | | | [phone] | | | +--------+ + + + [...] [place] | | | | | | [address] | | | | | | | [...] | | | | | | [place] [address] | | | | | | [phone] | | | | | | | | +--------+ + + + + | 10/21/ | Office | Cardiology | Nav Foley, | | | 2019 | Visit | | [address] | | | | | | [place] [address] | | | | | | [phone] | | | | | | | | +--------+ + + + + documented as of this encounter Visit Diagnoses Not on filedocumented in this encounter"
--- OUTSIDE RECORDS SUMMARY | ~2019-07-23 | XMS | Encounter Summary ---
Demographics + + + | Address | [address] | | | [place] [address] | + + + | Home Phone [...] [facility] | | | and [...] + + | 01/27/ | Hospital | [facility] | Raiza Cote, | Cardiac pacemaker in | | 2009 - | Encounter | MEDICAL [facility]ENTER | MD [address] | situ | | | | CLINICAL DECISION | [address] [place] | | | 01/28/ | | [address] | [address] | | | 2009 | | [place], [place] | [phone] | | | | | [address] | | | | | | [phone] | | | +--------+ + + + [...] [place] | | | | | | [address] | | | | | | | [...] | | | | | [place] [address] | | | | | | [phone] | | | | | | | | +--------+ + + + + | 10/21/ | Office | Cardiology | Nav Foley, | | | 2019 | Visit | | MD [address] | | | | | | [place] [address] | | | | | | [phone] | | | | | | | [...] Performed At | + + + | [facility] [address] Ph: | | | Patient Name: FRANCI VELÁZQUEZ Date of : | | | 1945 Medical Record: [id number] Account: [id number] | | | Exam Date/Time: 01/27/2010 17:00 [...] - 04/13/2019 7:29 PM PDT | | [facility] | | [facility] [address] | | | | | | Patient Name: FRANCI VELÁZQUEZ | | Date of : 1945 | | Medical Record: [id number] | | Account: [id number] | | | | | | Exam [...] Performed At | + + + | [facility] [address] Ph: | | | Patient Name: FRANCI VELÁZQUEZ Date of : | | | 1945 Medical Record: [id number] Account: [id number] | | | Exam Date/Time: 01/27/2010 14:54 [...] - 04/13/2019 7:29 PM PDT | | [facility] | | [facility] [address] | | | | | | Patient Name: FRANCI VELÁZQUEZ | | Date of : 1945 | | Medical Record: [id number] | | Account: [id number] | | | | | | Exam [...] Performed At | + + + | [id number] [facility] | | | [facility] [address] | | | , | | | CARDIOLOGY Patient Name: FRANCI VELÁZQUEZ Date of : | | | 1945 Medical Record: [id number] Account: [id number] | | | [facility] [address]/ Exam Date/Time: 01/27/2010 | | | 01:00 [...] | | DESCRIPTION OF PROCEDURE Implantation of HEEL SLICKER/ICD was recommended. | | | Informed consent [...] cm, serial number | | | is [id number]. We found a suitable position in the [...] Medtronic 4195, serial number | | | [id number]. The right atrial lead is a Medtronic 5076, length | | | is 52 cm, serial number is [id number]. We found a suitable position | | [...] | | | delivery system using the [employer] universal slitter. | | | Fluoroscopically, lead position remained stable. In [place] projection, | | | we adjusted the amount of redundancy on the lead and sutured it in | | | place. We then removed wires and stylets. We irrigated the pocket. | | | We then took the device which is a [employer] [id number], serial number | | | [id number]. We connected all 3 leads to the [...] 09:43 A P P | | | EDMUND/mehul/[id number]/cg | | + + + + + | Procedure Note | + + | David Mckeon Conversion - 04/13/2019 7:29 PM PDT | | [id number] | | [facility] | | [facility] [address] | | , | | CARDIOLOGY | | | | Patient Name: FRANCI VELÁZQUEZ | | Date of : 1945 | | Medical Record: [id number] | | Account: [id number] | | OPS/CDU 77568/ | | | | | | Exam [...] DESCRIPTION OF PROCEDURE | | Implantation of HEEL SLICKER/ICD was recommended. Informed consent was obtained. | [...] 65 cm, serial | | number is [id number]. We found a suitable position in the [...] lead is a Medtronic 4195, serial number [id number]. | | | | | | The right atrial lead is a Medtronic 5076, length is 52 cm, serial | | number is [id number]. We found a suitable position in the [...] slitter. Fluoroscopically, lead position remained stable. In [place] | | projection, we adjusted the amount of redundancy on the lead and sutured | | it in place. | | | | We then removed wires and stylets. We irrigated the pocket. We then took | | the device which is a [employer] [id number], serial number [id number]. We | | connected all 3 leads [...] | P | | P | | EDMUND/mehul/[id number]/cg | + + documented in this encounter Visit Diagnoses + + | Diagnosis | + + | Cardiac pacemaker in situ | + + documented in this encounter"
--- OUTSIDE RECORDS SUMMARY | ~2019-07-23 | XMS | Encounter Summary ---
Demographics + + + | Address | [address] | | | [place] [address] | + + + | Home Phone [...] Team Providers + +------+ + | Care Teletypewriter Installer Name | Role | Phone | + +------+ + | Carla Murphy | PCP | | | PA-C | | | + +------+ + Encounter Details +--------+ + + + + | Date | Type | Department | Care Team | Description | +--------+ + + + + | 03/12/ | Orders Only | [facility] | Provider, | Type 2 diabetes | | 2019 | | SYSTEM GENERIC OP | MD [address] | mellitus without | | | | CONVERSION [address] | [address] | complications (HCC); | | | | [address] [place], [place] | [place] [address] | Encounter for | | | | [address] | | therapeutic drug | | | | [phone] | | level monitoring | +--------+ + [...] [place] | | | | | | [address] | | | | | | | [...] | | | | | [place] [address] | | | | | | [phone] | | | | | | | | +--------+ + + + + | 10/21/ | Office | Cardiology | Nav Foley, | | | 2019 | Visit | | [address] | | | | | | [place] [address] | | | | | | [phone] | | | | | | | [...]
--- OUTSIDE RECORDS SUMMARY | ~2019-07-23 | XMS | Encounter Summary ---
Demographics + + + | Address | [address] | | | [place] [address] | + + + | Home Phone [...] Team Providers + +------+ + | Care Diamond Die Maker Name | Role | Phone | [...] | | | | [place] [address] | [address] | [address]VE | | | | | Test | [place], | [place], [place] | | | | | | [place] [address] | [address] | | | | | | | Phone: | | | | | | | [phone] | | | | | | | Fax: | | | | | | | [phone] | +--------+--------+ + + + + Reason [...] | | pulmonary | PA-C [address] | | | | | disease, | [address] | [place], | | | | | unspecified | Ave | [place] [address] | | | | | ([facility]) | [place], | | | | | | Procedures | [place] | | | | | | [place] | [address] | | | | | | CONSULT | Phone: | | | | | | | [phone] | | | | | | | Fax: | | | | | | | [phone] | | +--------+--------+ + + + + Encounter Details +--------+---------+ + + + | Date | Type | Department | Care Team | Description | +--------+---------+ + + + | 10/18/ | Office | [facility] | Lyn, | Dyspnea on exertion; | | 2015 | Visit | PULMONARY [address] | Sailaja Chiang MD | Elevated left | | | | [place], | | diaphragm; | | | | [place] [address] | | Panlobular emphysema | | | | [phone] | | ([facility]); Non-ischemic | | | | [...] see if it works. Schedule this at [facility]. Do an overnight oxygen test through [facility] [employer]. Call the [employer] before yo u pick it up to make sure they have a box available. You will fiber locking supervisor a box at the [employer] [employer]. Do the test on room air. Wear [...] years ago. He kinsey mbcriss going to [facility] ER years ago for pneumonia, a [...] mentioned something about being sen t to [facility] at the time). In the midst [...] at another follow up). He saw the MEDICAL DIRECTOR OF HOSPICE from EP cardiology in March 2015, and was noted to require a generator prescott e for his pacemaker defibrillator. This was performed in April. At his last note, in [facility] low up after his generator change, Dr. Foley mentions that he feels that his shortness of carol ath is related to his COPD. His most recent EF is 35-40% on echo in April. He was then seen in the ER at [facility] a total of 4 times. In [...] far, sometimes 2-3 blocks. He has a Keepio tair climber at home, but has not [...] Diagnosis Date COPD (chronic obstructive pulmonary disease) ([facility]) Allergic rhinitis seeing Dr. 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 Has pets at home: Cat Has ever owned birds: Yes an owl back in the s. Other animal exposures: Rabbits, lots of cats and dogs. Hobbies: Going to the [employer]. Allergies: Allergies Allergen Reactions Codeine Anaphylaxis Meperidine [...] made to ensure accuracy; however, inadvertent computerized drug inspector errors may be pre sent. Electronically [...] [place] | | | | | | [id number] | | | | | | | [...] | | | | | [place] [address] | | | | | | [phone] | | | | | | | | +--------+ + + + + | 10/21/ | Office | Cardiology | Nav Foley, | | | 2019 | Visit | | MD [address] | | | | | | [place] [address] | | | | | | [phone] | | | | | | | [...]
--- OUTSIDE RECORDS SUMMARY | ~2019-07-23 | XMS | Encounter Summary ---
Demographics + + + | Address | [address] | | | [place] [address] | + + + | Home Phone [...] Team Providers + +------+ + | Care Liquor Runner Name | Role | Phone | [...] MD | oximetry) | | | | [place], | | | | | | [place] [address] | | | | | | [phone] | | | +--------+ + + + [...] [place] | | | | | | [address] | | | | | | | [...] [place] | | | | | | [place] [address] | | | | | | [phone] | | | | | | | | +--------+ + + + + | 10/21/ | Office | Cardiology | Nva Foley, | | | 2019 | Visit | | [address] | | | | | | [place] [address] | | | | | | [phone] | | | | | | | [...]
--- OUTSIDE RECORDS SUMMARY | ~2019-07-23 | XMS | Encounter Summary ---
Demographics + + + | Address | [address] | | | [place] [address] | + + + | Home Phone [...] Team Providers + +------+ + | Care Shop Assistant Name | Role | Phone | [...] | pulmonary disease, | | | | [place], | | unspecified COPD | | | | [place] [address] | | type (HCC) (Primary | | | | [phone] | | Dx) | +--------+ + + [...] [place] | | | | | | [address] | | | | | | | [...] | | | | | [place] [address] | | | | | | [phone] | | | | | | | | +--------+ + + + + | 10/21/ | Office | Cardiology | Nav Foley, | | | 2019 | Visit | | MD [address] | | | | | | [place] [address] | | | | | | [phone] | | | | | | | | +--------+ + + + + documented as of this encounter Results PFT PULMONARY FUNCTION TESTING ORDERS Full PFT ([place] w/BD, lung volumes, diffusion)?: Yes (10/24/2015 3:47 [...] | | Sailaja Nicholson MD 10/24/2015 15:44 [facility] | | | [facility] CC: Carla Juarez PA-C | | + + + documented in this encounter Visit Diagnoses + + | Diagnosis | + + | Chronic obstructive pulmonary disease, unspecified COPD type (HCC) - Primary | + + documented in this encounter"
--- OUTSIDE RECORDS SUMMARY | ~2019-07-23 | XMS | Encounter Summary ---
Demographics + + + | Address | [address] | | | [place] [address] | + + + | Home Phone [...] Providers + +------+ + | Care Caramel Candy Maker Helper Name | Role | Phone | + +------+ + | Carla Murphy | PCP | | | PA-C | | | + +------+ + Encounter Details +--------+ + + + + | Date | Type | Department | Care Team | Description | +--------+ + + + + | 03/26/ | Hospital | [facility] | Conversion | Unknown cause of | | 2016 | Encounter | CONVERSION [address] | Transaction, | injury | | | | [address] | Provider Unknown | | | | | [place], [place] | [phone] | | | | | [address] | (Fax) | | | | | [phone] | | | +--------+ + + + [...] [place] | | | | | | [address] | | | | | | | [...] F | | | | | | [place] [address] | | | | | | [phone] | | | | | | | | +--------+ + + + + | 10/21/ | Office | Cardiology | Nav Foley, | | | 2019 | Visit | | [address] | | | | | | [place] [address] | | | | | | [phone] | | | | | | | [...]
--- OUTSIDE RECORDS SUMMARY | ~2019-07-23 | XMS | Encounter Summary ---
Demographics + + + | Address | [address] | | | [place] [address] | + + + | Home Phone [...] Team Providers + +------+ + | Care Gravity Meter Operator Name | Role | Phone | [...] MD | oximetry) | | | | [place], | | | | | | [place] [address] | | | | | | [phone] | | | +--------+ + + + [...] | 07/30/ | Office | Cardiology | Mayr Tipton ANP | | | 2019 | Visit | | [address] | | | | | | [place] | | | | | | [address] | | | | | | | [...] [place] | | | | | | [place] [address] | | | | | | [phone] | | | | | | | | +--------+ + + + + | 10/21/ | Office | Cardiology | Nav Foley, | | | 2019 | Visit | | [address] | | | | | | [place] [address] | | | | | | [phone] | | | | | | | [...]
--- OUTSIDE RECORDS SUMMARY | ~2019-07-23 | XMS | Encounter Summary ---
Demographics + + + | Address | [address] | | | [place] [address] | + + + | Home Phone [...] Providers + +------+ + | Care Machine Farmworker Name | Role | Phone | + +------+ + PCP | Unavailable | + +------+ + Encounter Details +--------+ + + + + | Date | Type | Department | Care Team | Description | +--------+ + + + + | 09/15/ | Hospital | [facility] | Conversion | Pain | | 2015 | Encounter | CONVERSION [address] | Transaction, | | | | | [address] | Provider Unknown | | | | | [place] | [phone] | | | | | [address] | | | | | | [phone] | | | +--------+ + + + [...] [place] | | | | | | [address] | | | | | | | [...] [place] | | | | | | [place] [address] | | | | | | [phone] | | | | | | | | +--------+ + + + + | 10/21/ | Office | Cardiology | Nav Foley, | | | 2019 | Visit | | MD [address] | | | | | | [place] [address] | | | | | | [phone] | | | | | | | [...]
--- OUTSIDE RECORDS SUMMARY | ~2019-07-23 | XMS | Encounter Summary ---
Demographics + + + | Address | [address] | | | [place] [address] | + + + | Home Phone [...] Providers + +------+ + | Care Fur Glosser Name | Role | Phone | + +------+ + PCP | Unavailable | + +------+ + Encounter Details +--------+ + + + + | Date | Type | Department | Care Team | Description | +--------+ + + + + | 05/11/ | Hospital | [facility] | Conversion | Pain | | 2015 | Encounter | CONVERSION [address] | Transaction, | | | | | [address] | Provider Unknown | | | | | [place] | [phone] | | | | | [address] | | | | | | [phone] | | | +--------+ + + + [...] [place] | | | | | | [address] | | | | | | | [...] [place] | | | | | | [place] [address] | | | | | | [phone] | | | | | | | | +--------+ + + + + | 10/21/ | Office | Cardiology | Nav Foley, | | | 2019 | Visit | | MD [address] | | | | | | [place] [address] | | | | | | [phone] | | | | | | | [...]
--- OUTSIDE RECORDS SUMMARY | ~2019-07-23 | XMS | Clinical Summary ---
Demographics + + + | Address | [address] | | | [place] [address] | + + + | Home Phone [...] Providers + +------+ + | Care Marine Drafter Name | Role | Phone | + [...] Danis's with consult form stroke team at [facility]. 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 Chiang in January | | 2009.Generator change by Dr. Delarosa in 2014 viva xt LOGISTICS ASSISTANT D MDT | | number [id number].Patient has a 5076 atrial lead Medtronic. 6947 [...] defibrillator | | | | | | (LOGISTICS ASSISTANT-D) in place; | | | | | [...] [place] | | | | | | [address] | | | | | | | [...] F | | | | | | [place] [address] | | | | | | [phone] | | | | | | | | +--------+ + + + + | 10/21/ | Office | Cardiology | Nav Foley, | | | 2019 | Visit | | [address] | | | | | | [place] [address] | | | | | | [phone] | | | | | | | [...] defibrillator | | | | | | (LOGISTICS ASSISTANT-D) in place | | | | [...] | | | | | by [employer] Gunlock Read Only, | | | | | | ICA Pam ([id number]), | | | | | | news copy editor Darwin Bob | | | | | | ([id number]) on 07/21/2019 | | | | | [...] | Germain Boyle | [facility] | | Naivd, Technologist 06/02/2019 9:10ICD REMOTE INTERROGATION | | | REPORT Name: Jared Blake Jarad PCP: Carla Murphy PA-C | | | : 1945MRN: [id number] Primary cardiology provider: Poppy | | | Ruby Rodriguez Primary electrophysiology provider: Constantin Chavez | | | Device rn resource nurse: Medtronic Device type: Biventricular Battery | | [...] | the last interrogation. Testing reviewed by: [employer] Fransisca Shoemaker | | | | | [...] | | | | |Testing reviewed by: [employer] Fransisca Shoemaker | | | | | [...] +--------+ +---------+--------+ | MEDICARE | MEDICA | [id number] | 10/19/19 | [phone] | | Medica | | | RE | | 13-Pre | 5 | | re | | | PART A | | sent | | | | | | AND B | | | | | | + +--------+ +--------+ +---------+--------+ | MEDICARE | MEDICA | [id number] | 05/31/ | [phone] | | Medica | | | RE | | 2019-P | 5 | | re | | | PART A | | resent | | | | | | AND B | | | | | | + +--------+ +--------+ +---------+--------+ | [employer] | TRANSA | [id number] | 10/19/19 | | | Indemn | | INSURANCE | MERICA | | 15-Pre | | | ity | | | LIFE | | sent | | | | | | MS | | | | | | + +--------+ +--------+ +---------+--------+ | [employer] | TRANSA | [id number] | 10/19/19 | | | Indemn | | INSURANCE | MERICA | [id number] | 15-Pre | | | ity | [...] Self | [birth year] | [address] | | [place] | al/Fam | | 1945 | [phone] | [place], [place] | | | chas | | | 6 (Home) | [address] | + +--------+ +--------+ + + | Jared Abraham | Person | Self | [birth year] | | [address] | | [place] | al/Fam | | 1945 | [phone] | [place], [place] | | | chas | | | 6 (Home) | [address] | + +--------+ +--------+ + + Advance Directives + + + + + | Type | Date Recorded | Patient | Explanation | | | | Steelworker | | + + + + + | Power of | | | | | Customer Business Manager | | | | + + + + + | Advance | 10/19/2015 1:30 | | | | Directive | PM | | | + + + + +
--- OUTSIDE RECORDS SUMMARY | ~2019-07-23 | XMS | Encounter Summary ---
Demographics + + + | Address | [address] | | | [place] [address] | + + + | Home Phone | | + + + | Preferred Language | Unknown | + + + | Marital Status | | + + + | Gnosticist Affiliation | Unknown | + + + | Race | Unknown | + + + | Ethnic Group | Unknown | + + + Author + + + | Author | [facility] | | | and [place] | + + + | Organization | [facility] | | | [...] Team Providers + +------+ + | Care Vet Assistant Name | Role | Phone | + +------+ + | Carla Murphy | PCP | | | PA-C | | | + +------+ + Encounter Details +--------+ + + + + | Date | Type | Department | Care Team | Description | +--------+ + + + + | 03/15/ | Orders Only | [facility] | Conversion | | | 2016 | | CARDIOLOGY [place] | Transaction, | | | | | [address] | Provider Unknown | | | | | [place], [place] | [phone] | | | | | [address] | (Fax) | | | | | [phone] | | | +--------+ + + + [...] | | | | | [address] [place], [place] | | | | | | [address] | | | | | | | [...] F | | | | | | [place] [address] | | | | | | [phone] | | | | | | | | +--------+ + + + + | 10/21/ | Office | Cardiology | Nav Foley, | | | 2019 | Visit | | [address] | | | | | | [place] [address] | | | | | | [phone] | | | | | | | [...]
--- OUTSIDE RECORDS SUMMARY | ~2019-07-23 | XMS | Encounter Summary ---
Demographics + + + | Address | [address] | | | [place] [address] | + + + | Home Phone [...] | Author | [facility] | | | and [...] Team Providers + +------+ + | Care Passenger Tire Builder Name | Role | Phone | [...] + + | 06/04/ | Office | [facility] | Nav Foley, | Palpitations | | 2019 | Visit | CARDIOLOGY [place] | [address] | (Primary Dx) | | | | [address] | [place] [address] | | | | | [place] | [phone] | | | | | [address] | | | | | | [phone] | | | +--------+---------+ + + + [...] 12/06/18 1040 Encounter Date: 12/04/2018 Status: Signed Energy Efficiency Engineer: Nav Foley MD (Physician) Related Notes: [...] mg by mouth nightly. Cholecalciferol (VITAMIN D3) 57646 UNITS CAPS Take 5,000 Int'l Units by [...] [place] | | | | | | [address] | | | | | | | [...] | | | | | [place] [address] | | | | | | [phone] | | | | | | | | +--------+ + + + + | 10/21/ | Office | Cardiology | Alaina Nav N, | | | 2019 | Visit | | MD [address] | | | | | | [place] [address] | | | | | | [phone] | | | | | | | [...]
--- OUTSIDE RECORDS SUMMARY | ~2019-07-23 | XMS | Encounter Summary ---
Demographics + + + | Address | [address] | | | [place] [address] | + + + | Home Phone [...] Team Providers + +------+ + | Care Refrigerating Oiler Name | Role | Phone | + [...] | | [address] | [place], [place] | | | | | [place], [place] | [address] | | | | | [address] | | | | | | [phone] | | | +--------+ + + + [...] [place] | | | | | | [address] | | | | | | | [...] F | | | | | | [place] [address] | | | | | | [phone] | | | | | | | | +--------+ + + + + | 10/21/ | Office | Cardiology | Nav Foley, | | | 2019 | Visit | | [address] | | | | | | [place] [address] | | | | | | [phone] | | | | | | | [...] 9.77 RAP: 3 mmHg | | | Diesel Fitter Mechanic: NIGEL Authenticated by: Gretchen Joy Report [...] mlLAESV Index (A-L): 37.87 ml/m2LAAs A2C: 22.69 [id number] | | A-L A2C: 93.63 mlLALs A2C: 4.66 cmLAAs A4C: 19.88 [id number] A-L A4C: 77.98 mlLALs | | A4C: 4.30 cmRAAd: 23.19 [id number] A-L: 97.65 mlRAEDV MOD: 89.83 mlRALd: 4.67 | | cmTAPSE: 2.19 cmAV maxP.27 mmHgAV meanP.41 mmHgAV Vmax: 1.03 m/Fabricio | | Vmean: 0.73 m/Fabricio VTI: 19.23 cmAVA Vmax: 4.21 cm2AVA (VTI): 4.42 lp7PHWD Vmax: | | 0.00 cm2/m2AVAI (VTI): 0.00 cm2/m2LVOT maxP.13 mmHgLVOT meanP.63 mmHgLVSI | | Dopp: 36.18 ml/m2LVSV Dopp: 85.04 mlLVOT Vmax: 0.88 m/sLVOT Vmean: 0.61 m/sLVOT | | VTI: 17.26 cmMV E Frank: 0.83 m/sMV DecT: 110.72 msSeptal e': 0.09 m/sSeptal | | E/e': 8.70Lateral e': 0.08 m/sLateral E/e': 9.77RAP: 3 mmHg Diesel Fitter Mechanic: | | DBSAuthenticated by: [facility] EnterpriseraReport Date/Time: 09-26-2017 7:40:19 IMPRESSION: 1. | | [...] | |RAP: 3 mmHg | | | |Diesel Fitter Mechanic: DBS | |Authenticated by: Gretchen Joy | [...]
--- OUTSIDE RECORDS SUMMARY | ~2019-07-23 | XMS | Encounter Summary ---
Demographics + + + | Address | [address] | | | [place] [address] | + + + | Home Phone [...] Team Providers + +------+ + | Care Yard Operator Name | Role | Phone | + +------+ + | Carla Murphy | PCP | | | PA-C | | | + +------+ + Encounter Details +--------+ + + + + | Date | Type | Department | Care Team | Description | +--------+ + + + + | 03/01/ | Hospital | [facility] | [place], | Chronic obstructive | | 2016 | Encounter | MED [facility] | Sailaja Chiang MD | pulmonary disease, | | | | FUNCTION [address] | | unspecified COPD | | | | [place], | | type (HCC) | | | | [place] [address] | | | | | | [phone] | | | +--------+ + + + [...] | | | | | [place] | | | | | | [address] | | | | | | | [...] | | | | | [place] [address] | | | | | | [phone] | | | | | | | | +--------+ + + + + | 10/21/ | Office | Cardiology | Nav Foley, | | | 2019 | Visit | | [address] | | | | | | [place] [address] | | | | | | [phone] | | | | | | | [...] PFT PULMONARY FUNCTION TESTING ORDERS Full PFT ([place] w/BD, lung volumes, diffusion)?: Yes (10/24/2015 3:47 [...] | | Sailaja Nicholson MD 10/24/2015 15:44 [facility] | | | [facility] CC: Carla Juarez PA-C | [...]
--- OUTSIDE RECORDS SUMMARY | ~2019-07-23 | XMS | Clinical Summary ---
Demographics + + + | Address | [address] | | | [place] [address] | + + + | Home Phone | | + + + | Preferred Language | Unknown | + + + | Marital Status | | + + + | Bahai Affiliation | Unknown | + + + | Race | Unknown | + + + | Ethnic Group | Unknown | + + + Author + + + | Author | [facility] (Historical as of | | | 04-05-19) | + + + | Organization | [facility] (Historical as of | | | 04-05-19) [...] Providers + +------+ + | Care Crm Marketing Analyst Name | Role | Phone | [...] (diabetes mellitus, type II), controlled ([facility]) | 08/18/2018 | + + + | [...] 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 Chiang in January | | 2009.Generator change by Dr. Delarosa in 2014 viva xt LOSS PREVENTION SPECIALIST D MDT | | number [id number].Patient has a 5076 atrial lead Medtronic. 6947 [...] QRS duration of over 160 ms. A LOSS PREVENTION SPECIALIST defibrillator | | was subsequently placed by [...] [place] | | | | | | [address] | | | | | | | [...] / Lot | + +--------+------+ +--------+--------+--------+ | Nuclear Medicine Tech-D-05/17/2015Implanted: | Cardia | | MEDTRONIC - | [...] +------+-------+ + | MEDICARE | MEDICA | [id number] | | | [address] | | | RE | | | | [place] [address] | | | IP-OP | | | | | + +--------+ +------+-------+ + | COMMERCIAL OTHER | TRANSA | [id number] | | | | | | MERICA [...] | chas | | | 1964 | [address] | + +--------+ +--------+ + +
--- OUTSIDE RECORDS SUMMARY | ~2019-07-23 | XMS | Encounter Summary ---
Demographics + + + | Address | [address] | | | [place] [address] | + + + | Home Phone [...] Team Providers + +------+ + | Care Cfo Controller Name | Role | Phone | [...] | | | | Poppy Beltran, | [facility] | | | | | Non-ischemic | [address] | [address] | | | | | | [address] | [place] | | | | | cardiomyopat | [place] F | [place], [place] | | | | | hy (HCC) | [place], [place] | [address] | | | | | Cardiac | [address] | Phone: | | | | | resynchroniz | Phone: | [phone] | | | | | ation | [phone] | Fax: | | | | | therapy | Fax: | [phone] | | | | | defibrillato | [phone] | | | | | | r (LANDSCAPING MANAGER-D) in | | | | | [...] + + | 07/21/ | Office | [facility] | Poppy Rodriguez | Non-ischemic | | 2019 | Visit | CARDIOLOGY [place] | [address] | cardiomyopathy (HCC) | | | | [address] | [address] | (Primary Dx); | | | | [address] | [place] [address] | Cardiac | | | | [place] | [phone] | resynchronization | | | | [address] | | therapy | | | | [phone] | | defibrillator | | | | | | (LANDSCAPING MANAGER-D) in place; | | | | [...] you an Echo to be performed at [facility] in September I made these changes [...] ust 2017, and was consulted by Dr. Roldna during his hospital admission on August 17. He has now established again with Dr. Foley is his primary termite technician, and last seen by him 06/04/2019 when [...] history of ventricular tachycardia with insertion of LANDSCAPING MANAGER-D in January 2010 and most recent [...] he had several Events noted from his LANDSCAPING MANAGER-D device on August 30, , September [...] seen emergency room on May 26 at [facility], and note reviewed and documen patricia symptoms [...] habits, as he usually goes to the [employer] most nights at around midnight, and will [...] PND. Poor sleep habits: Goes to the [employer] from midn ight-3 AM, usually goes to [...] due to poor activity tolerance. Lives in [place]. , lost his fiancee in 2001 when she in a car crash after being hit by distracted high lift driver on a cell phone Outpatient Medications [...] or wheezing noted, respirations unl abored HEART: LANDSCAPING MANAGER-D site to CHIKA, stable to palpation, [...] No intracranial saccular aneurysms are identifie d LANDSCAPING MANAGER-D Implant : MDT LANDSCAPING MANAGER-D by Dr. Martinez. in January 2010., Generator change by Dr. Delarosa in viva xt LANDSCAPING MANAGER D MDT number [id number].Patient has a 5076 atrial lead Medtronic. 6947 Sprin t Quattro Medtronic RV lead and 4195 Starfix Medtronic LV lead. All leads were implanted in January 2010. LANDSCAPING MANAGER-D interrogation: 06/02/2019: Battery longevity( 3 yrs, 11 months ) .DAIRY TESTER 2.73 V RA pac ing 14% , [...] Congestive heart failure parameters and trends stable. LANDSCAPING MANAGER-D interrogation: 09/23/2018: Battery longevity( 3.7-5.9y) 4.8 years/2.97V.DAIRY TESTER 2.73 V R A pacing 30.79 percent, RV pacing 99.04 percent, LANDSCAPING MANAGER pacing 98.92 percent. Lead impedance W [...] terminated episode. No shocks. No aborted charges. LANDSCAPING MANAGER-D interrogation: 09/04/2018: Battery longevity 4.9 years/2.98 V ( DAIRY TESTER 2.73V) . Lead impe ndence WNL. Thresholds [...] gained 3 pounds over a 24-hour period LANDSCAPING MANAGER-D Quick Look: 08/17/2018: ( [facility] admission for syncope) : Longevity of 5 years. Sett ings 60-140 18/AF burden <0.1 hours/day, <0.1 percent. Patient activity 1.2 hours per day. EGM's. Dr. Roldan noted settings were ventricular fibrillation zone of 188, treated with 35 J shocks 6, VT zone monitored, no therapy. One episode of sustained ventricular tachy cardia lasting for 27 seconds, no therapy delivered. ECHO Echo: 09/25/2017 ([facility]): Technically adequate study. EF 30-35 percent. Mild [...] pericardial effusion. NON CARDIAC TESTING: PFT: 10/19/2015:( [facility]): Spirometry: Prior to administration of inhaled bronchodilator, [...] complexes him a PVCs. Rate 72 bpm, MT 112 ms, QRS 150 ms, QTC 494 ms tracing personally reviewed by me EK10/10/2018: Atrially paced rhythm, occasional PVC. Rate 84 bpm, MT 178 ms, QRS 174 ms, QTC 531 ms him a tracing personally reviewed by me, and improved rate and less frequent PVC s and EKG performed 07/2018 EK01/28/2019: Atrially sensed by V paced rhythm. Rate 77 bpm, MT 162 ms, QRS 184 ms, QTC 506 ms, tracing personally reviewed by me. 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 Rate 104 bpm, MT 154 ms, QRS 174 ms, QTC 539 [...] evaluate his cardiomyopathy to be performed at [facility] in September. He will follow-up next with electrophysiology nurse practitioner, eliezer Grijalva april updated device interrogation on that visit. He will follow up with Dr. Foley for primar y cardiology in October. 1. Non-ischemic cardiomyopathy (HCC) 2. Cardiac resynchronization therapy defibrillator (LANDSCAPING MANAGER-D) in place 3. Non-sustained ventricular tachycardia [...] contain inadvertent rec ognition errors. Chan HOOKER [facility] 07/21/2019 ELDAdocarlos alberto mullins in this encounter Plan of Treatment [...] [place] | | | | | | [id number] | | | | | | | | +--------+ + + + + | 07/30/ | Procedure | Cardiology | | | 2018 | visit | | | | +--------+ + + + + | 09/01/ | Office | Cardiology | Poppy Rodriguez | | | 2019 | Visit | | [address] | | | | | | [address] | | | | | | [place] [address] | | | | | | [phone] | | | | | | | | +--------+ + + + + | 10/21/ | Office | Cardiology | Nav Foley, | | | 2019 | Visit | | [address] | | | | | | [place] [address] | | | | | | [phone] | | | | | | | [...] defibrillator | | | | | | (LANDSCAPING MANAGER-D) in place | | | | [...] defibrillator | | | | | | (LANDSCAPING MANAGER-D) in place | | | | [...] | | | | | by [employer] [place] Read Only, | | | | | | [employer] Pam ([id number]), | | | | | | editor trade journal Darwin Bob | | | | | | ([phone]) on 07/21/2019 | | | | | [...] + + | Cardiac resynchronization therapy defibrillator (LANDSCAPING MANAGER-D) in place | + + | [...]
--- OUTSIDE RECORDS SUMMARY | ~2019-07-23 | XMS | Encounter Summary ---
Demographics + + + | Address | [address] | | | [place] [address] | + + + | Home Phone [...] Team Providers + +------+ + | Care Interior Wirer Name | Role | Phone | + +------+ + PCP | Unavailable | + +------+ + Encounter Details +--------+ + + + + | Date | Type | Department | Care Team | Description | +--------+ + + + + | 09/23/ | Hospital | [facility] | Vincent Fields MD | AAA (abdominal | | 2015 - | Encounter | [facility] | [address] | aortic aneurysm) | | | | CARE FLOOR 4 [phone] | [place], [place] | ([facility]) | | 09/24/ | | [address] | [address] | | | 2014 | | [place] | [phone] | | | | | [address] | | | | | | [phone] | | | +--------+ + + + [...] 1537 Date of Service: 09/24/14918 Status: Signed Pigs Feet Cleaner: MORRO Arboleda (Mario Registered Nurse Practitioner) [facility] Service: Vascular Surgery Discharge Summary Date [...] heart COPD (chronic obstructive pulmonary disease) Pacemaker PASCUA YAQUI (hard of hearing) Past Surgical History Procedure [...] file. 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 You may get the following medications [...] Date of Service: 09/24/14 1517 Status: Signed Pigs Feet Cleaner: Mirna Donato RN (Registered Nurse) Pt and family received dc instruct verbal and written. They stated understanding. onver chetna Transaction, Provider Unknown - 09/24/2014 10:48 AM PST Therapy Progress Note by Waldemar Floyd PT at 09/24/14 1048 Author: Waldemar Floyd PT Service: (none) Author Type: Physical Therapist Filed: 09/24/14 1146 Date of Service: 09/24/14 1048 Status: Signed Pigs Feet Cleaner: Waldemar Floyd PT (Physical Therapist) 09/24/14 1048 PT Last Visit PT Received On 09/24/14 Reason for Treatment Other (comment) (AAA repair) Requires PT Follow Up No Follow up PT Only? No PT Eval/Reassessment Date 09/24/14 Assistance Required 1 person Rock Worker Needed No Home Environment Type of Home [...] was employed until recentl y at the [employer] in [place]. States that he has friends and neighbors that can assist if he would need it. Prior Function Level of [place] Independent with functional mobility;Independent with ADLs;Independe nt [...] Eval/Reassessment Date 09/24/14 Assistance Required 1 person Rock Worker Needed No Other Comments Comments Chart reviewed, [...] 09/23/141913 Date of Service: 09/23/141908 Status: Signed Pigs Feet Cleaner: Yoon Michele RN (Registered Nurse) Pt still [...] 09/23/141710 Date of Service: 09/23/141710 Status: Signed Pigs Feet Cleaner: Louise Herrera RPH (Pharmacist) Clinical Pharmacy Note: [...] 1746 Date of Service: 09/23/141699 Status: Signed Pigs Feet Cleaner: Yoon Michele RN (Registered Nurse) Upon arrival [...] 09/23/141727 Date of Service: 09/23/141699 Status: Signed Pigs Feet Cleaner: Juana Hayes Pt transferred to Cardiac Unit and bedside report given to Sabra ALLISON. In PACU repeat ACT was completed by Stringed Instrument Repairer RN prior to transport:. Current result 110. [...] [place] | | | | | | [address] | | | | | | | [...] | | | | | [place] [address] | | | | | | [phone] | | | | | | | | +--------+ + + + + | 10/21/ | Office | Cardiology | Nav Foley, | | | 2019 | Visit | | MD [address] | | | | | | [place] [address] | | | | | | [phone] | | | | | | | [...] | LAB | | | | [address], | | | | | | [place] [address] | | | | + + + + + + | RED CELL | 4.36Comment: Testing | 4.20 - 5.70 | EXTERNAL | | | COUNT | performed at [facility], [address] | M/uL | LAB | | | | [address], | | | | | | [place] [address] | | | | + + + + + + | Hgb | 13.4Comment: Testing | 13.2 - 17.0 | EXTERNAL | | | | performed at [facility], [address] | g/dL | LAB | | | | [address], | | | | | | [place] [address] | | | | + + + + + + | Hematocrit, | 39.7Comment: Testing | 39.0 - 50.0 % | EXTERNAL | | | POC | performed at [facility], [address] | | LAB | | | | [address], | | | | | | [place] [address] | | | | + + + + + + | MCV | 91.0Comment: Testing | 80.0 - 100.0 fl | EXTERNAL | | | | performed at [facility], [address] | | LAB | | | | [address], | | | | | | [place] [address] | | | | + + + + + + | MCH | 30.8Comment: Testing | 27.0 - 34.0 pg | EXTERNAL | | | | performed at [facility], [address] | | LAB | | | | [address], | | | | | | [place] [address] | | | | + + + + + + | MCHC | 33.9Comment: Testing | 32.0 - 35.5 | EXTERNAL | | | | performed at [facility], [address] | g/dL | LAB | | | | [address], | | | | | | [place] [address] | | | | + + + + + + | RDW-CV | 44.6Comment: Testing | 37 - 53 fl | EXTERNAL | | | | performed at [facility], [address] | | LAB | | | | [address], | | | | | | [place] [address] | | | | + + + + + + | Platelet | 227Comment: Testing | 150 - 400 K/uL | EXTERNAL | | | Count | performed at [facility], [address] | | LAB | | | Plasma | [address], | | | | | | [place] [address] | | | | + + + + + + | MPV | 8.8Comment: Testing | fl | EXTERNAL | | | | performed at [facility], [address] | | LAB | | | | [address], | | | | | | [place], [place] [address] | | | | + + + + + + | Differentia | MANUALComment: Testing | | EXTERNAL | | | l Type | performed at [facility], [address] | | LAB | | | | [address], | | | | | | [place] [address] | | | | + + + + + + | Segmented | 80Comment: Testing | % | EXTERNAL | | | Neutrophils | performed at [facility], [address] | | LAB | | | Manual | [address], | | | | | | [place] [address] | | | | + + + + + + | % Bands | 12Comment: Testing | % | EXTERNAL | | | | performed at [facility], [address] | | LAB | | | | [address], | | | | | | [place] [address] | | | | + + + + + + | Lymphocytes | 6Comment: Testing | % | EXTERNAL | | | Manual | performed at [facility], [address] | | LAB | | | | [address], | | | | | | [place] [address] | | | | + + + + + + | Monocytes | 2Comment: Testing | % | EXTERNAL | | | Manual | performed at [facility], [address] | | LAB | | | | [address], | | | | | | [place] [address] | | | | + + + + + + | Absolute | 18.9 (H)Comment: Testing | 1.9 - 7.4 K/uL | EXTERNAL | | | Neutrophils | performed at [facility], [address] | | LAB | | | | [address], | | | | | | [place] [address] | | | | + + + + + + | Bands | 2.8 (H)Comment: Testing | 0 - 0.2 K/uL | EXTERNAL | | | Manual | performed at [facility], [address] | | LAB | | | | [address], | | | | | | [place] [address] | | | | + + + + + + | Absolute | 1.4Comment: Testing | 1.0 - 3.9 K/uL | EXTERNAL | | | Lymphocytes | performed at [facility], [address] | | LAB | | | | [address], | | | | | | [place] [address] | | | | + + + + + + | Absolute | 0.5Comment: Testing | 0 - 0.8 K/uL | EXTERNAL | | | Monocytes | performed at [facility], [address] | | LAB | | | | [address], | | | | | | [place] [address] | | | | + + + + + + | RBC | RBC AND PLT MORPHOLOGY | | EXTERNAL | | | Morphology | APPEAR NORMALComment: | | LAB | | | | Testing performed at | | | | | | [facility], [address] | | | | | | [place] | | | | | | [address] | | | | + + + [...] | | | | | [place] [address] | | | | + + + + + + | K | 4.2Comment: Testing | 3.5 - 4.9 | EXTERNAL | | | | performed at [facility], [address] | mmol/L | LAB | | | | [address], | | | | | | [place] [address] | | | | + + + + + + | Cl | 101Comment: Testing | 99 - 109 mmol/L | EXTERNAL | | | | performed at [facility], [address] | | LAB | | | | [address], | | | | | | [place] [address] | | | | + + + + + + | CO2 | 28Comment: Testing | 23 - 32 mmol/L | EXTERNAL | | | | performed at [facility], [address] | | LAB | | | | [address], | | | | | | [place] [address] | | | | + + + + + + | Anion Gap | 8Comment: Testing | 5 - 20 mmol/L | EXTERNAL | | | | performed at [facility], [address] | | LAB | | | | [address], | | | | | | [place] [address] | | | | + + + + + + | Glucose, | 183 (H)Comment: Testing | 65 - 99 mg/dL | EXTERNAL | | | Fasting | performed at [facility], [address] | | LAB | | | | [address], | | | | | | [place] [address] | | | | + + + + + + | BUN | 12Comment: Testing | 8 - 25 mg/dL | EXTERNAL | | | | performed at [facility], [address] | | LAB | | | | [address], | | | | | | [place] [address] | | | | + + + + + + | Creatinine | 0.81Comment: Testing | 0.70 - 1.30 | EXTERNAL | | | | performed at [facility], [address] | mg/dL | LAB | | | | [address], | | | | | | [place] [address] | | | | + + + + + + | BUN/Creatin | 15Comment: Testing | | EXTERNAL | | | ine Ratio | performed at [facility], [address] | | LAB | | | | [address], | | | | | | [place] [address] | | | | + + + + + + | Calcium | 8.3 (L)Comment: NOTE NEW | 8.5 - 10.5 | EXTERNAL | | | | REFERENCE RANGETesting | mg/dL | LAB | | | | performed at [facility], [address] | | | | | | [facility], | | | | | | [place] [address] | | | | + + + [...] W | | | | | | [facility], | | | | | | [place] [address] | | | | + + + [...] | | | Clotting | performed at [facility];888 | seconds | LAB | | | time, POC | [address];[place], [place] | | | | | | [address] | | | | + + + [...] SURGEON: | | | Vincent Fields MD MAINTENANCE ANALYST: MORRO Arboleda ANESTHESIA: General | | | [...] | properly identified and brought to the Stringed Instrument Repairer. The patient was | | | placed supine on the Stringed Instrument Repairer table and the patient underwent general | [...] | | was upsized to a 7 Central African sheath. Next, a perclose device was deployed | | | at the 10:00 and 2:00 position in the right common femoral artery. | | | The 7 [place] sheath was then reinserted over the wire. A pigtail | | | catheter was then placed through the right sheath into the mid aorta. | | | Next, a micropuncture needle was used to access the left common | | | femoral artery. A micropuncture sheath was then inserted over wire and | | | this was upsized to a 7 [place] sheath. Again, a perclose device was | | | deployed at the 10:00 and 2:00 position in the left common femoral | | | artery. An Amplatz wire was then placed to the left 7 [place] African sheath | | | with the tip of the wire in the aortic arch. Once the wire was in | | | place, the 7-Central African sheath was removed from the left common [...] | | placed into the right 7 norwegian sheath with the tip at the aortic arch. | | | The 7 norwegian sheath was then removed and upsized to a 16 norwegian | | | sheath. Next, a right [...] device was then removed and a 16 norwegian sheath was | | | inserted over the wire. A left iliac arteriogram was then performed | | | through the 16 [place] sheath and the location of the left [...] the Perclose device SURGEON: Vincent Fields MD MAINTENANCE ANALYST: Ingrid | | MORRO Morris ANESTHESIA: General [...] identified and | | brought to the Stringed Instrument Repairer. The patient was placed supine on the Stringed Instrument Repairer table and the | | patient underwent general endotracheal anesthesia. The patient's abdomen and bilateral | | groins were then prepped and draped in the usual sterile fashion. First, a micropuncture | | needle was used to access the right common femoral artery. A micropuncture sheath was | | then inserted over wire and this was upsized to a 7 [place] sheath. Next, a perclose | | device was deployed at the 10:00 and 2:00 position in the right common femoral artery. | | The 7 [place] African sheath was then reinserted over the wire. A pigtail catheter was then | | placed through the right sheath into the mid aorta. Next, a micropuncture needle was | | used to access the left common femoral artery. A micropuncture sheath was then inserted | | over wire and this was upsized to a 7 [place] African sheath. Again, a perclose device was | | deployed at the 10:00 and 2:00 position in the left common femoral artery. An Amplatz | | wire was then placed to the left 7 [place] African sheath with the tip of the wire in the aortic | | arch. Once the wire was in place, the 7-Central African sheath was removed from the left common [...] placed into the right 7 | | norwegian sheath with the tip at the aortic arch. The 7 norwegian sheath was then removed and | | upsized to a 16 norwegian sheath. Next, a right iliac artery arteriogram [...] device was then removed and a 16 norwegian sheath was inserted over the wire. A | | left iliac arteriogram was then performed through the 16 Central African sheath and the location | | of [...] SURGEON: | | | Vincent Fields MD MAINTENANCE ANALYST: MORRO Arboleda ANESTHESIA: General | | | [...] | properly identified and brought to the Stringed Instrument Repairer. The patient was | | | placed supine on the Stringed Instrument Repairer table and the patient underwent general | [...] | | was upsized to a 7 Central African sheath. Next, a perclose device was deployed | | | at the 10:00 and 2:00 position in the right common femoral artery. | | | The 7 [place] African sheath was then reinserted over the wire. A pigtail | | | catheter was then placed through the right sheath into the mid aorta. | | | Next, a micropuncture needle was used to access the left common | | | femoral artery. A micropuncture sheath was then inserted over wire and | | | this was upsized to a 7 [place] African sheath. Again, a perclose device was | | | deployed at the 10:00 and 2:00 position in the left common femoral | | | artery. An Amplatz wire was then placed to the left 7 Central African sheath | | | with the tip of the wire in the aortic arch. Once the wire was in | | | place, the 7-Central African sheath was removed from the left common [...] | | placed into the right 7 norwegian sheath with the tip at the aortic arch. | | | The 7 norwegian sheath was then removed and upsized to a 16 norwegian | | | sheath. Next, a right [...] device was then removed and a 16 norwegian sheath was | | | inserted over the wire. A left iliac arteriogram was then performed | | | through the 16 Central African sheath and the location of the left [...] the Perclose device SURGEON: Vincent Fields MD MAINTENANCE ANALYST: Ingrid | | MORRO Morris ANESTHESIA: General [...] identified and | | brought to the Stringed Instrument Repairer. The patient was placed supine on the Stringed Instrument Repairer table and the | | patient underwent general endotracheal anesthesia. The patient's abdomen and bilateral | | groins were then prepped and draped in the usual sterile fashion. First, a micropuncture | | needle was used to access the right common femoral artery. A micropuncture sheath was | | then inserted over wire and this was upsized to a 7 [place] African sheath. Next, a perclose | | device was deployed at the 10:00 and 2:00 position in the right common femoral artery. | | The 7 Central African sheath was then reinserted over the wire. A pigtail catheter was then | | placed through the right sheath into the mid aorta. Next, a micropuncture needle was | | used to access the left common femoral artery. A micropuncture sheath was then inserted | | over wire and this was upsized to a 7 [place] African sheath. Again, a perclose device was | | deployed at the 10:00 and 2:00 position in the left common femoral artery. An Amplatz | | wire was then placed to the left 7 [place] African sheath with the tip of the wire in the aortic | | arch. Once the wire was in place, the 7-Central African sheath was removed from the left common [...] placed into the right 7 | | norwegian sheath with the tip at the aortic arch. The 7 norwegian sheath was then removed and | | upsized to a 16 norwegian sheath. Next, a right iliac artery arteriogram [...] device was then removed and a 16 norwegian sheath was inserted over the wire. A | | left iliac arteriogram was then performed through the 16 Central African sheath and the location | | of [...] | | | Clotting | performed at [facility];888 | seconds | LAB | | | time, POC | [address];[place], [place] | | | | | | [address] | | | | + + + [...] | | | Clotting | performed at [facility];888 | seconds | LAB | | | time, POC | [address];[place], [place] | | | | | | [address] | | | | + + + [...] | | | Clotting | performed at [facility];888 | seconds | LAB | | | time, POC | [address];[place], [place] | | | | | | [address] | | | | + + + [...]
--- OUTSIDE RECORDS SUMMARY | ~2019-07-23 | XMS | Encounter Summary ---
Demographics + + + | Address | [address] | | | [place] [address] | + + + | Home Phone [...] Team Providers + +------+ + | Care Football Pad Repairer Name | Role | Phone | + +------+ + PCP | Unavailable | + +------+ + Encounter Details +--------+ + + + + | Date | Type | Department | Care Team | Description | +--------+ + + + + | 09/16/ | Hospital | [facility] | Conversion | Pain | | 2015 | Encounter | CONVERSION DEP [address] | Transaction, | | | | | [address] | Provider Unknown | | | | | [place] | [phone] | | | | | [address] | | | | | | [phone] | | | +--------+ + + + [...] [place] | | | | | | [address] | | | | | | | [...] ELIAS | | | | | | [place] [address] | | | | | | [phone] | | | | | | | | +--------+ + + + + | 10/21/ | Office | Cardiology | Nav Foley, | | | 2019 | Visit | | MD [address] | | | | | | [place] [address] | | | | | | [phone] | | | | | | | [...]
--- OUTSIDE RECORDS SUMMARY | ~2019-07-23 | XMS | Encounter Summary ---
Demographics + + + | Address | [address] | | | [place] [address] | + + + | Home Phone [...] Team Providers + +------+ + | Care Batch Unloader Name | Role | Phone | + +------+ + | Carla Murphy | PCP | | | PA-C | | | + +------+ + Encounter Details +--------+ + + + + | Date | Type | Department | Care Team | Description | +--------+ + + + + | 03/26/ | Hospital | [facility] | Conversion | Unknown cause of | | 2016 | Encounter | CONVERSION [address]P [address] | Transaction, | injury | | | | [address] | Provider Unknown | | | | | [place], [place] | [phone] | | | | | [address] | (Fax) | | | | | [phone] | | | +--------+ + + + [...] [place] | | | | | | [address] | | | | | | | [...] F | | | | | | [place] [address] | | | | | | [phone] | | | | | | | | +--------+ + + + + | 10/21/ | Office | Cardiology | Nav Foley, | | | 2019 | Visit | | [address] | | | | | | [place] [address] | | | | | | [phone] | | | | | | | [...]
--- OUTSIDE RECORDS SUMMARY | ~2019-07-23 | XMS | Encounter Summary ---
Demographics + + + | Address | [address] | | | [place] [address] | + + + | Home Phone [...] Team Providers + +------+ + | Care Evaluation Manager Name | Role | Phone | + +------+ + | Carla Murphy | PCP | | | PA-C | | | + +------+ + Encounter Details +--------+ + + + + | Date | Type | Department | Care Team | Description | +--------+ + + + + | 03/01/ | Hospital | [facility] | Off[place], | Chronic obstructive | | 2016 | Encounter | [facility] | Sailaja Chiang MD | pulmonary disease, | | | | FUNCTION [address] | | unspecified COPD | | | | [place], | | type (HCC) | | | | [place] [address] | | | | | | [phone] | | | +--------+ + + + [...] | | | | | [place] | | | | | | [address] | | | | | | | [...] | | | | | [place] [address] | | | | | | [phone] | | | | | | | | +--------+ + + + + | 10/21/ | Office | Cardiology | Nav Foley, | | | 2019 | Visit | | [address] | | | | | | [place] [address] | | | | | | [phone] | | | | | | | [...] PFT PULMONARY FUNCTION TESTING ORDERS Full PFT ([place] w/BD, lung volumes, diffusion)?: Yes (10/24/2015 3:47 [...] | | Sailaja Nicholson MD 10/24/2015 15:44 [facility] | | | [facility] CC: Carla Juarez PA-C | | [...]
--- OUTSIDE RECORDS SUMMARY | ~2019-07-23 | XMS | Encounter Summary ---
Demographics + + + | Address | [address] | | | [place] [address] | + + + | Home Phone [...] Team Providers + +------+ + | Care Calender Machine Operator Helper Name | Role | [...] MANAGEMENT | | | | | | [phone] | | | +--------+ + + + [...] f rom the original. Referral Referral # [id number] Referral Information Referral # Creation Date Referral Status Status Update [id number] 01/21/2016 Authorized 01/24/2016:Status History. Status Reason Referral Type Referral Reasons Referral Class No Approval Necessary - Patient Tracking Evaluate & Treat none Outgoing To Specialty To Provider To Location/POS To Department none none [facility] none Vendor Referred By By Location/POS By Department none Sailaja B [place] none [facility] Priority Start Date Expiration Date Referral Entered By Routine 01/21/2016 07/19/2016 LYNDSAY LYNN Visits Requested Visits Authorized Visits Completed Visits Scheduled 1 1 Procedure Information Procedure Modifiers Provider Requested Approved 83333 (CPT) - [place] OFFICE OUTPATIENT VISIT 25 MINUTES 1 1 Authorizing Provider Authorizing Provider Diagnosis Information Diagnosis J44.9 (ICD-10-CM) - 496 (ICD-9-CM) - COPD (chronic obstructive pulmonary disease) ([facility]) Active Insurance as of 02/01/2016 MEDICARE - MEDICARE PART A AND B Payor Plan Insurance Group Employer/Plan Group MEDICARE MEDICARE PART A AND B Payor Plan Address Payor Plan Phone Number Effective From Effective To [address] 10/18/2012 BENJA BELCHER [address] Subscriber Name Subscriber Date Member ID FRANCI VELÁZQUEZ 1945 [id number] Guarantor Name (ID) Guarantor Date Guarantor Address Guarantor Type FRANCI VELÁZQUEZ ([id number]) 1945 [address] [place] [address] [employer] Payor Plan Insurance Group Employer/Plan Group [employer] PLAN G Payor Plan Address Payor Plan Phone Number Effective From Effective To [address] 10/18/2014 [place] [address] Subscriber Name Subscriber Date Member ID FRANCI VELÁZQUEZ 1945 [id number] Guarantor Name (ID) Guarantor Date Guarantor Address Guarantor Type FRANCI VELÁZQUEZ ([id number]) 1945 [address] [place] [id number] Referral Notes Type Date User General 01/31/2016 8790 LYNDSAY LYNN Note Please send the following information for referral purposes. Status (Emergent/Urgent/Routine): routine External Referral Form ([facility]/Other):no Referred to Provider: [facility] Pulmonary Include: Patient Demographics Chart Notes (Provider Name/Date): Off[place] Referral Letter: no Procedure(s): if any Pathology: if any Imaging: yes Labs: most recent Other: any other pertinent pulmonary records Type Date User General 01/24/2016 1035 ASHOK DUARTE Summary ??> APPROVED> [place]> CONTINUITY OF CARE> [facility] Note APPROVED New - Scheduling Minimum Data Set | Provider Notes: | Payer: [employer] SU[employer] PLAN G | Subscriber Name: Self | & [id number] | Auth ID: Not required by payer | CPT Provided? Yes | Dx Code Provided? | Additional Contact Info: - NO ABN REQUIRED PER MED ASSETS CODE [facility] NO PA REQUIRED. FOLLOWS GUIDELINES PER CALL TO BRIT[facility]. [phone] Type Date User General 01/21/2016 164LYNDSAY POOLE Note Referral to [facility] for continued care documented [...] [place] | | | | | | [address] | | | | | | | [...] | | | | | [place] [address] | | | | | | [phone] | | | | | | | | +--------+ + + + + | 10/21/ | Office | Cardiology | Nav Foley, | | | 2019 | Visit | | MD [address] | | | | | | [facility] [address] | | | | | | [phone] | | | | | | | | +--------+ + + + + documented as of this encounter Visit Diagnoses Not on filedocumented in this encounter"
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
--- OUTSIDE RECORDS SUMMARY | ~2019-07-23 | XMS | Encounter Summary ---
Demographics + + + | Address | [address] | | | [place] [address] | + + + | Home Phone [...] Team Providers + +------+ + | Care Gluing Machine Operator Electronic Name | Role | Phone | + [...] Chiang MD | | | | | [place], | | | | | | [place] [address] | | | | | | [phone] | | | +--------+ + + + [...] [place] | | | | | | [address] | | | | | | | [...] | | | | | | [place] [address] | | | | | | [phone] | | | | | | | | +--------+ + + + + | 10/21/ | Office | Cardiology | Nav Foley, | | | 2019 | Visit | | [address] | | | | | | [place] [address] | | | | | | [phone] | | | | | | | | +--------+ + + + + documented as of this encounter Visit Diagnoses Not on filedocumented in this encounter"
--- OUTSIDE RECORDS SUMMARY | ~2019-07-23 | XMS | Encounter Summary ---
Demographics + + + | Address | [address] | | | [place] [address] | + + + | Home Phone [...] Team Providers + +------+ + | Care Children'S Minister Name | Role | Phone | + +------+ + | Carla Murphy | PCP | | | PA-C | | | + +------+ + Reason for Visit + + + | Reason | Comments | + + + | Device Check | Medtronic DEPUTY SHERIFF LIEUTENANT-D remote | | (Remote) | | + + + Encounter Details +--------+ + + + + | Date | Type | Department | Care Team | Description | +--------+ + + + + | 06/02/ | Procedure | [facility] | | Non-ischemic | | 2019 | visit | CARDIOLOGY [place] | | cardiomyopathy (HCC) | | | | [address] | | (Primary Dx); | | | | [place], [place] | | Non-sustained | | | | [address] | | ventricular | | | | [phone] | | tachycardia (HCC); | | | [...] [place] | | | | | | [address] | | | | | | | [...] | | | | | [place] [address] | | | | | | [phone] | | | | | | | | +--------+ + + + + | 10/21/ | Office | Cardiology | Kev Foleyjoni Peñaloza, | | | 2020 | Visit | | MD [address] | | | | | | [place] [address] | | | | | | [phone] | | | | | | | [...] Murphy PA-C | | | : 1945MRN: [id number] Primary cardiology provider: Poppy | | | Ruby Rodriguez Primary electrophysiology provider: Constantin Chavez | | | Device hotel desk clerk: Medtronic Device type: Biventricular Battery | | [...] | the last interrogation. Testing reviewed by: [employer] Fransisca Shoemaker | | | | | [...] | | | | |Testing reviewed by: [employer] Fransisca Shoemaker | | | | | [...]
--- OUTSIDE RECORDS SUMMARY | ~2019-07-23 | XMS | Encounter Summary ---
Demographics + + + | Address | [address] | | | [place] [address] | + + + | Home Phone [...] Providers + +------+ + | Care Branch Coordinator Name | Role | Phone | + +------+ + PCP | Unavailable | + +------+ + Encounter Details +--------+ + + + + | Date | Type | Department | Care Team | Description | +--------+ + + + + | 10/16/ | Hospital | [facility] | Conversion | Pain | | 2015 | Encounter | CONVERSION DEP [address] | Transaction, | | | | | [address]LICA [address]OLFE | Provider Unknown | | | | | [place] | [phone] | | | | | [address] | | | | | | [phone] | | | +--------+ + + + [...] [place] | | | | | | [address] | | | | | | | [...] [place]IAS | | | | | | [place] [address] | | | | | | [phone] | | | | | | | | +--------+ + + + + | 10/21/ | Office | Cardiology | Nav Foley, | | | 2019 | Visit | | MD [address] | | | | | | [place] [address] | | | | | | [phone] | | | | | | | [...]
--- OUTSIDE RECORDS SUMMARY | ~2019-07-23 | XMS | Encounter Summary ---
Demographics + + + | Address | [address] | | | [place] [address] | + + + | Home Phone [...] Team Providers + +------+ + | Care Criminology Teacher Name | Role | Phone | + +------+ + | Carla Murphy | PCP | | | PA-C | | | + +------+ + Reason for Visit + + + | Reason | Comments | + + + | Device Check | Medtronic SAP BW DEVELOPER-D remote | | (Remote) | | + + + Encounter Details +--------+ + + + + | Date | Type | Department | Care Team | Description | +--------+ + + + + | 06/02/ | Procedure | [facility] | | Non-ischemic | | 2019 | visit | CARDIOLOGY [place] | | cardiomyopathy (HCC) | | | | [address] | | (Primary Dx); | | | | [place], [place] | | Non-sustained | | | | [address] | | ventricular | | | | [phone] | | tachycardia (HCC); | | | [...] [place] | | | | | | [address] | | | | | | | [...] | | | | | | [place] [address] | | | | | | [phone] | | | | | | | | +--------+ + + + + | 10/21/ | Office | Cardiology | Kev Foleyjoni Peñaloza, | | | 2020 | Visit | | MD [address] | | | | | | [place] [address] | | | | | | [phone] | | | | | | | [...] Murphy PA-C | | | : 1945MRN: [id number] Primary cardiology provider: Poppy | | | Ruby Rodriguez Primary electrophysiology provider: Constantin Chavez | | | Device ranger aide: Medtronic Device type: Biventricular Battery | | [...] | the last interrogation. Testing reviewed by: [employer] Fransisca Shoemaker | | | | | [...] | | | | |Testing reviewed by: [employer] Fransisca Shoemaker | | | | | [...]
--- OUTSIDE RECORDS SUMMARY | ~2019-07-23 | XMS | Encounter Summary ---
Demographics + + + | Address | [address] | | | [place] [address] | + + + | Home Phone [...] Providers + +------+ + | Care Sheet Rock Nailer Name | Role | Phone | + +------+ + | Carla Murpyh | PCP | | | PA-C | [...] MD | diaphragm | | | | [place], | | | | | | [place] [address] | | | | | | [phone] | | | +--------+ + + + [...] | | | | | [place] | | | | | | [address] | | | | | | | [...] ELIAS | | | | | | [place] [address] | | | | | | [phone] | | | | | | | | +--------+ + + + + | 10/21/ | Office | Cardiology | Nav Foley, | | | 2019 | Visit | | [address] | | | | | | [place] [address] | | | | | | [phone] | | | | | | | | +--------+ + + + + documented as of this encounter Visit Diagnoses + + | Diagnosis | + + | Elevated left diaphragm Disorders of diaphragm | + + documented in this encounter"
--- OUTSIDE RECORDS SUMMARY | ~2019-07-23 | XMS | Encounter Summary ---
Demographics + + + | Address | [address] | | | [place] [address] | + + + | Home Phone [...] Team Providers + +------+ + | Care Donkey Engine Firer/Fireman Name | Role | Phone | + +------+ + | Carla Murphy | PCP | | | PA-C | | | + +------+ + Encounter Details +--------+ + + + + | Date | Type | Department | Care Team | Description | +--------+ + + + + | 03/15/ | Orders Only | [facility] | Conversion | | | 2016 | | CARDIOLOGY [place] | Transaction, | | | | | [address] | Provider Unknown | | | | | [place], [place] | [phone] | | | | | [phone] | (Fax) | | | | | [phone] | | | +--------+ + + + [...] | | | | | [address] [place], [place] | | | | | | [address] | | | | | | | [...] F | | | | | | [place] [address] | | | | | | [phone] | | | | | | | | +--------+ + + + + | 10/21/ | Office | Cardiology | Nav Foley, | | | 2019 | Visit | | [address] | | | | | | [place] [address] | | | | | | [phone] | | | | | | | [...]
--- OUTSIDE RECORDS SUMMARY | ~2019-07-23 | XMS | Encounter Summary ---
Demographics + + + | Address | [address] | | | [place] [address] | + + + | Home Phone | | + + + | Preferred Language | Unknown | + + + | Marital Status | | + + + | Moravian Affiliation | Unknown | + + + [...] Team Providers + +------+ + | Care Mussel Opener Name | Role | Phone | + [...] MANAGEMENT | | | | | | [phone] | | | +--------+ + + + [...] [place] | | | | | | [address] | | | | | | | [...] | | | | | | [place] [address] | | | | | | [phone] | | | | | | | | +--------+ + + + + | 10/21/ | Office | Cardiology | Nav Folye, | | | 2019 | Visit | | [address] | | | | | | [place] [address] | | | | | | [phone] | | | | | | | | +--------+ + + + + documented as of this encounter Visit Diagnoses Not on filedocumented in this encounter"
--- OUTSIDE RECORDS SUMMARY | ~2019-07-23 | XMS | Encounter Summary ---
Demographics + + + | Address | [address] | | | [place] [address] | + + + | Home Phone [...] Team Providers + +------+ + | Care Gas Pipe Layer Name | Role | Phone | [...] MD | oximetry) | | | | [place], | | | | | | [place] [address] | | | | | | [phone] | | | +--------+ + + + [...] [place] | | | | | | [address] | | | | | | | [...] ELIAS | | | | | | [place] [address] | | | | | | [phone] | | | | | | | | +--------+ + + + + | 10/21/ | Office | Cardiology | Nav Foley, | | | 2019 | Visit | | [address] | | | | | | [place] [address] | | | | | | [phone] | | | | | | | [...]
--- OUTSIDE RECORDS SUMMARY | ~2019-07-23 | XMS | Encounter Summary ---
Demographics + + + | Address | [address] | | | [place] [address] | + + + | Home Phone [...] Team Providers + +------+ + | Care Hand Method Lasting Machine Operator Name | Role | Phone [...] | | | | Poppy Beltran, | [facility] | | | | | Non-ischemic | SR. STRATEGIC SOURCING MANAGER [address] | [address] | | | | | | [address] | [place] | | | | | cardiomyopat | SATINDER F | [place], [place] | | | | | hy (HCC) | [place], [place] | [address] | | | | | Cardiac | [address] | Phone: | | | | | resynchroniz | Phone: | [phone] | | | | | ation | [phone] | Fax: | | | | | therapy | Fax: | [phone] | | | | | defibrillato | [phone] | | | | | | r (MODULAR SET CREW MEMBER-D) in | | | | | | [...] + + | 07/21/ | Office | [facility] | Poppy Rodriguez | Non-ischemic | | 2019 | Visit | CARDIOLOGY [place] | [address]tr[address] | cardiomyopathy (HCC) | | | | [address] | [address] [place] | (Primary Dx); | | | | [address] | [place] [address] | Cardiac | | | | [place] | [phone] | resynchronization | | | | [address] | | therapy | | | | [phone] | | defibrillator | | | | | | (MODULAR SET CREW MEMBER-D) in place; | | | | [...] you an Echo to be performed at [facility] in September I made these [...] again with Dr. Foley is his primary auto clutch rebuilder, and last seen by him 06/04/2019 when [...] history of ventricular tachycardia with insertion of MODULAR SET CREW MEMBER-D in January 2010 and most recent generator [...] he had several Events noted from his MODULAR SET CREW MEMBER-D device on August 30, , September 24 [...] seen emergency room on May 26 at [facility], and note reviewed and documen patricia [...] habits, as he usually goes to the [employer] most nights at around midnight, and will [...] PND. Poor sleep habits: Goes to the [employer] from midn ight-3 AM, usually goes to [...] due to poor activity tolerance. Lives in [place]. , lost his fiancee in 2001 when she in a car crash after being hit by distracted delivery driver/supervisor on a cell phone Outpatient Medications Prior [...] or wheezing noted, respirations unl abored HEART: MODULAR SET CREW MEMBER-D site to CHIKA, stable to palpation, well [...] No intracranial saccular aneurysms are identifie d MODULAR SET CREW MEMBER-D Implant : MDT MODULAR SET CREW MEMBER-D by Dr. Martinez. in January 2010., Generator change by Dr. Delarosa in viva xt MODULAR SET CREW MEMBER D MDT number [id number].Patient has a 5076 atrial lead Medtronic. 6947 Sprin t Quattro Medtronic RV lead and 4195 Starfix Medtronic LV lead. All leads were implanted in January 2010. MODULAR SET CREW MEMBER-D interrogation: 06/02/2019: Battery longevity( 3 yrs, 11 months ) .TETRYL BOILING TUB OPERATOR 2.73 V RA pac ing 14% [...] Congestive heart failure parameters and trends stable. MODULAR SET CREW MEMBER-D interrogation: 09/23/2018: Battery longevity( 3.7-5.9y) 4.8 years/2.97V.TETRYL BOILING TUB OPERATOR 2.73 V R A pacing 30.79 percent, RV pacing 99.04 percent, MODULAR SET CREW MEMBER pacing 98.92 percent. Lead impedance W NL. [...] terminated episode. No shocks. No aborted charges. MODULAR SET CREW MEMBER-D interrogation: 09/04/2018: Battery longevity 4.9 years/2.98 V ( TETRYL BOILING TUB OPERATOR 2.73V) . Lead impe ndence WNL. [...] gained 3 pounds over a 24-hour period MODULAR SET CREW MEMBER-D Quick Look: 08/17/2018: ( [facility] admission for syncope) : Longevity [...] seconds, no therapy delivered. ECHO Echo: 09/25/2017 ([facility]): Technically adequate study. EF 30-35 percent. Mild [...] effusion. NON CARDIAC TESTING: PFT: 10/19/2015:( [facility]): Spirometry: Prior to administration of inhaled bronchodilator, [...] complexes him a PVCs. Rate 72 bpm, VA 112 ms, QRS 150 ms, QTC 494 ms tracing personally reviewed by me EK10/10/2018: Atrially paced rhythm, occasional PVC. Rate 84 bpm, VA 178 ms, QRS 174 ms, QTC 531 ms him a tracing personally reviewed by me, and improved rate and less frequent PVC s and EKG performed 07/2018 EK01/28/2019: Atrially sensed by V paced rhythm. Rate 77 bpm, VA 162 ms, QRS 184 ms, QTC 506 ms, tracing personally reviewed by me. 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 Rate 104 bpm, VA 154 ms, QRS 174 ms, QTC 539 [...] evaluate his cardiomyopathy to be performed at [facility] in September. He will follow-up next with electrophysiology nurse practitioner, eliezer Grijalva april updated device interrogation on that visit. He will follow up with Dr. Foley for primar y cardiology in October. 1. Non-ischemic cardiomyopathy (HCC) 2. Cardiac resynchronization therapy defibrillator (MODULAR SET CREW MEMBER-D) in place 3. Non-sustained ventricular tachycardia (HCC) [...] inadvertent rec ognition errors. Chan HOOKER [facility] 07/21/2019 ELDAdocarlos alberto mullins in this [...] [place] | | | | | | [id number] | | | | | | | [...] F | | | | | | [place] [address] | | | | | | [phone] | | | | | | | | +--------+ + + + + | 10/21/ | Office | Cardiology | Nav Foley, | | | 2019 | Visit | | [address] | | | | | | [place] [address] | | | | | | [phone] | | | | | | | [...] defibrillator | | | | | | (MODULAR SET CREW MEMBER-D) in place | | | | [...] defibrillator | | | | | | (MODULAR SET CREW MEMBER-D) in place | | | | [...] | | | | | by [employer]CA Winthrop Read Only, | | | | | | ICA Pam ([id number]), | | | | | | editor managing newspaper Darwin Bob | | | | | | (180) on 07/21/2019 | | | | | [...] + + | Cardiac resynchronization therapy defibrillator (MODULAR SET CREW MEMBER-D) in place | + + | [...]
--- OUTSIDE RECORDS SUMMARY | ~2019-07-23 | XMS | Encounter Summary ---
Demographics + + + | Address | [address] | | | [place] [address] | + + + | Home Phone | | + + + | Preferred Language | Unknown | + + + | Marital Status | | + + + | Anabaptism Affiliation | Unknown | + + + | Race | Unknown | + + + | Ethnic Group | Unknown | + + + Author + + + | Author | [facility] | | | and [place] | + + + | Organization | [facility] | | | [...] Team Providers + +------+ + | Care Pediatric Audiologist Name | Role | Phone | + [...] | PULMONARY [address] | RN | ([facility]) | | | | [place], | | | | | | [place] [address] | | | | | | [phone] | | | +--------+ + + + [...] | | | | | [address] [place] | | | | | | [address] | | | | | | | [...] F | | | | | | [place] [address] | | | | | | [phone] | | | | | | | | +--------+ + + + + | 10/21/ | Office | Cardiology | Nav Foley, | | | 2019 | Visit | | [address] | | | | | | [place] [address] | | | | | | [phone] | | | | | | | | +--------+ + + + + documented as of this encounter Visit Diagnoses + + | Diagnosis | + + | Panlobular emphysema (HCC) Other emphysema | + + documented in this encounter"
--- OUTSIDE RECORDS SUMMARY | ~2019-07-23 | XMS | Encounter Summary ---
Demographics + + + | Address | [address] | | | [place] [address] | + + + | Home Phone [...] Team Providers + +------+ + | Care Physical Therapist Name | Role | Phone | [...] | | | 2015 | Coordinatio | [facility] | Sailaja Chiang MD | | | | n | INFORMATION | | | | | | MANAGEMENT | | | | | | [phone] | | | +--------+ + + + [...] [place] | | | | | | [address] | | | | | | | [...] | | | | | [place] [address] | | | | | | [phone] | | | | | | | | +--------+ + + + + | 10/21/ | Office | Cardiology | Nav Foley, | | | 2019 | Visit | | [address] | | | | | | [place] [address] | | | | | | [phone] | | | | | | | | +--------+ + + + + documented as of this encounter Visit Diagnoses Not on filedocumented in this encounter"
--- OUTSIDE RECORDS SUMMARY | ~2019-07-23 | XMS | Encounter Summary ---
Demographics + + + | Address | [address] | | | [place] [address] | + + + | Home Phone [...] Team Providers + +------+ + | Care Log Driver Name | Role | Phone | [...] [place] | | | | | [facility] [place] | [address] | | | | | [address] | | | | | | [phone] | | | +--------+ + + + [...] [place] | | | | | | [address] | | | | | | | [...] [place] | | | | | | [place] [address] | | | | | | [phone] | | | | | | | | +--------+ + + + + | 10/21/ | Office | Cardiology | Nav Foley, | | | 2019 | Visit | | MD [address] | | | | | | [place] [address] | | | | | | [phone] | | | | | | | [...] PV maxP.92 mmHg PV Vmax: 0.99 m/s Integrated Circuit Ic Layout Designer: | | | Authenticated by: LIZBET LYNN MD Report Date/Time: -- | | | [id number]:9:34 | | + + + + + [...] cmLVPWd: 1.13 cmLVOT Area: | | 5.09 [id number] Diam: 2.54 cm%FS: 1.72 %EF(Teich): 3.94 %ESV(Teich): [...] (A-L): 45.03 | | ml/m2LAAs A2C: 31.66 [id number] A-L A2C: 147.72 mlLALs A2C: 5.75 cmLAAs A4C: 21.81 | | [id number] A-L A4C: 68.38 mlLALs A4C: 5.90 cmRAAs: 25.43 dl4QMJPB A-L: 100.41 | | mlRAESV MOD: 92.04 mlRALs: 5.46 cmAo Diam: 3.82 cmLA Diam: 4.65 cmLA/Ao: | | 1.21TAPSE: 2.41 cmAV maxP.90 mmHgAV meanP.40 mmHgAV Vmax: 1.21 m/Fabricio | | Vmean: 0.87 m/Fabricio VTI: 23.83 cmAVA Vmax: 3.69 cm2AVA (VTI): 3.60 ga3PUSA Vmax: | | 0.00 cm2/m2AVAI (VTI): 0.00 cm2/m2LVOT maxP.10 mmHgLVOT meanP.59 mmHgLVSI | | Dopp: 37.97 ml/m2LVSV Dopp: 85.81 mlLVOT Vmax: 0.88 m/sLVOT Vmean: 0.59 m/sLVOT | | VTI: 16.83 cmMV A Frank: 0.65 m/sMV DecT: 257.92 msMV E Frank: 0.47 m/sMV E/A | | Ratio: 0.73MV PHT: 74.79 msMVA By PHT: 2.94 cl2Dwuncb e': 0.04 m/sSeptal E/e': | | 11.67Lateral e': 0.04 m/sLateral E/e': 10.11PV maxP.92 mmHgPV Vmax: 0.99 | | m/s Integrated Circuit Ic Layout Designer:Authenticated by: Devan LEE Date/Time: -- | | [id number]:34 IMPRESSION: 1. Overall left ventricular systolic function [...] |PV Vmax: 0.99 m/s | | | |Integrated Circuit Ic Layout Designer: | |Authenticated by: LIZBET LYNN MD | |Report Date/Time: [id number]:34 | | | |IMPRESSION: | |1. Overall [...]
--- OUTSIDE RECORDS SUMMARY | ~2019-07-23 | XMS | Encounter Summary ---
Demographics + + + | Address | [address] | | | [place] [address] | + + + | Home Phone [...] Team Providers + +------+ + | Care Customer Engagement Representative Name | Role | Phone | + +------+ + | Carla Murphy | PCP | | | PA-C | | | + +------+ + Encounter Details +--------+ + + + + | Date | Type | Department | Care Team | Description | +--------+ + + + + | 03/26/ | Hospital | [facility] | Conversion | Unknown cause of | | 2016 | Encounter | CONVERSION DEP [address] | Transaction, | injury | | | | [address] | Provider Unknown | | | | | [place], [place] | [phone] | | | | | [phone] | (Fax) | | | | | [phone] | | | +--------+ + + + [...] [place] | | | | | | [address] | | | | | | | [...] F | | | | | | [place] [address] | | | | | | [phone] | | | | | | | | +--------+ + + + + | 10/21/ | Office | Cardiology | Nav Foley, | | | 2019 | Visit | | [address] | | | | | | [place] [address] | | | | | | [phone] | | | | | | | [...]
--- OUTSIDE RECORDS SUMMARY | ~2019-07-23 | XMS | Encounter Summary ---
Demographics + + + | Address | [address] | | | [place] [address] | + + + | Home Phone [...] Team Providers + +------+ + | Care Short Order Fry Cook Name | Role | Phone | [...] | PULMONARY [address] | RN | ([facility]) | | | | [address], | | | | | | [place] [address] | | | | | | [phone] | | | +--------+ + + + [...] | | | | | [place] [address] [place] | | | | | | [address] | | | | | | | [...] F | | | | | | [place] [address] | | | | | | [phone] | | | | | | | | +--------+ + + + + | 10/21/ | Office | Cardiology | Nav Foley, | | | 2019 | Visit | | [address] | | | | | | [place] [address] | | | | | | [phone] | | | | | | | | +--------+ + + + + documented as of this encounter Visit Diagnoses + + | Diagnosis | + + | Panlobular emphysema (HCC) Other emphysema | + + documented in this encounter"
--- OUTSIDE RECORDS SUMMARY | ~2019-07-23 | XMS | Encounter Summary ---
Demographics + + + | Address | [address] | | | [place] [address] | + + + | Home Phone [...] Team Providers + +------+ + | Care Quality Project Manager Name | Role | Phone | + +------+ + | Carla Murphy | PCP | | | PA-C | | | + +------+ + Encounter Details +--------+ + + + + | Date | Type | Department | Care Team | Description | +--------+ + + + + | 03/26/ | Hospital | [facility] | Conversion | Unknown cause of | | 2016 | Encounter | CONVERSION DEP [address] | Transaction, | injury | | | | [address] | Provider Unknown | | | | | [place], [place] | [phone] | | | | | [phone] | (Fax) | | | | | [phone] | | | +--------+ + + + [...] [place] | | | | | | [address] | | | | | | | [...] F | | | | | | [place] [address] | | | | | | [phone] | | | | | | | | +--------+ + + + + | 10/21/ | Office | Cardiology | Nav Foley, | | | 2019 | Visit | | [address] | | | | | | [place] [address] | | | | | | [phone] | | | | | | | [...]
--- OUTSIDE RECORDS SUMMARY | ~2019-07-23 | XMS | Encounter Summary ---
Demographics + + + | Address | [address] | | | [place] [address] | + + + | Home Phone [...] Team Providers + +------+ + | Care Kiln Car Repairer Name | Role | Phone | + +------+ + PCP | Unavailable | + +------+ + Encounter Details +--------+ + + + + | Date | Type | Department | Care Team | Description | +--------+ + + + + | 09/16/ | Hospital | [facility] | Conversion | Pain | | 2015 | Encounter | CONVERSION DEP [address] | Transaction, | | | | | [address] | Provider Unknown | | | | | [place] | [phone] | | | | | [address] | | | | | | [phone] | | | +--------+ + + + [...] [place] | | | | | | [address] | | | | | | | [...] ELIAS | | | | | | [place] [address] | | | | | | [phone] | | | | | | | | +--------+ + + + + | 10/21/ | Office | Cardiology | Nav Foley, | | | 2019 | Visit | | MD [address] | | | | | | [place] [address] | | | | | | [phone] | | | | | | | [...]
--- OUTSIDE RECORDS SUMMARY | ~2019-07-23 | XMS | Encounter Summary ---
Demographics + + + | Address | [address] | | | [place] [address] | + + + | Home Phone [...] Team Providers + +------+ + | Care Rock Splitter Name | Role | Phone | + +------+ + | Carla Murphy | PCP | | | PA-C | | | + +------+ + Encounter Details +--------+ + + + + | Date | Type | Department | Care Team | Description | +--------+ + + + + | 01/20/ | Hospital | [facility] | Therese Sarabia DO | Hypotension due to | | 2017 - | Encounter | MEDICAL [facility]ENTER | [address] | drugs; Non-sustained | | | | CLINICAL DECISION | [place] [address] | ventricular | | 01/21/ | | [address] | [phone] | tachycardia (HCC) | | 2017 | | [place], [place] | | | | | | [address] | | | | | | [phone] | | | +--------+ + + + [...] 0856 Date of Service: 01/21/17851 Status: Signed Bakery Supervisor: Beau Rudolph MD (Physician) [facility] Service: Hospitalist Physician Discharge Summary Patient ID: Jared [id number] y.o. 1945 Admit date: 01/20/2017 Discharge [...] Disposition: *Home Follow up: Carla Juarez PA-C [address] [place] [address] Nav Foley MD [facility][note 3] [place] [id number] Dictation and kettleman or software, Citilog, used which may contain error for similar [...] COPD (chronic obstructive pulmonary disease) (HCC) Pacemaker [place] (hard of hearing) Hypertension Hyperlipidemia AAA (abdominal aortic aneurysm) (HCC) MOISÉS (obstructive sleep apnea) 01/21/2017 Past Surgical History Procedure Laterality Date Pacemaker insertion 01/22/2014 Appendectomy Hernia repair Tumor removal head and neck Hand surgery tube put in to drain infection. Was put out for it as a child Aortic endograft N/A 09/23/2014 Procedure: AORTIC - ENDOGRAFT; Surgeon: Vincent Fields MD; Location: [facility] OR/HEAT TREAT WORKER; Ser vice: Vascular; Laterality: N/A; Significant Diagnostic [...] Commonly known as: NASACORT AQ Vitamin D3 05564 units Caps Refills: 0 STOP taking these [...] 01/21/1749 Date of Service: 01/21/17943 Status: Addendum Bakery Supervisor: Kalpana Bell RN (Registered Nurse) Related [...] 01/21/17337 Date of Service: 01/21/17337 Status: Signed Bakery Supervisor: Stanford Camarillo RPH (Pharmacist) Note ccl [...] [place] | | | | | | [address] | | | | | | | [...] | | | | | [place] [address] | | | | | | [phone] | | | | | | | | +--------+ + + + + | 10/21/ | Office | Cardiology | Nav Foley, | | | 2019 | Visit | | [address] | | | | | | [place] [address] | | | | | | [phone] | | | | | | | [...] | | | | | | ACUTE NM Testing | | | | | | performed at [facility];8 | | | | | | [facility];[place], [place] | | | | | | [address] | | | | + + + [...] EXTERNAL | | | | performed at [facility];[address] | | LAB | | | | [address];[place], [place] | | | | | | [address] | | | | + + + [...] | | | | | | ACUTE NM Testing | | | | | | performed at [facility];[address] | | | | | | [address];[place], [place] | | | | | | [address] | | | | + + + [...] | | | | | performed at [facility];[address] | | | | | | [address];[place], [place] | | | | | | [address] | | | | + + + [...] EXTERNAL | | | | performed at [facility];[address] | | LAB | | | | [address];[place] | | | | | | [address] | | | | + + + [...] | | | | | | ACUTE NM Testing | | | | | | performed at [facility] | | | | | | [address];[place], [place] | | | | | | [address] | | | | + + + [...] | | | Basophils | performed at [facility], [address] | K/uL | LAB | | | | [address], | | | | | | [place] [address] | | | | + + + [...] EXTERNAL | | | | performed at [facility] | | LAB | | | | [facility];[place], [place] | | | | | | [address] | | | | + + + [...] EXTERNAL | | | | performed at [facility];[address] | | LAB | | | | [address];[place] | | | | | | [address] | | | | + + + [...] EXTERNAL | | | | performed at [facility];[address] | | LAB | | | | [address];[place], [place] | | | | | | [address] | | | | + + + [...] | | | Cholesterol | performed at [facility], [address] | | LAB | | | , | [address], | | | | | Calculated, | [place] [address] | | | | | External | [...] | | | | | | at [facility];[address] [place] [address] | | | | | | [facility];[place] [address] | | | | + + + [...] | | | | | performed at [facility];[address] | | | | | | [address];[place], [place] | | | | | | [address] | | | | + + + [...] | | | Basophils | performed at [facility];[address] | K/uL | LAB | | | | [address];[place] | | | | | | [address] | | | | + + + [...] EXTERNAL | | | | performed at [facility];[address] | | LAB | | | | [address];[place], [place] | | | | | | [address] | | | | + + + [...] EXTERNAL | | | | performed at [facility] | | LAB | | | | [address];[place], [place] | | | | | | [address] | | | | + + + [...] EXTERNAL | | | | performed at [facility] | | LAB | | | | [address];[place] | | | | | | [address] | | | | + + + [...] | | | | | | at [facility];[address] [place] [address] | | | | | | Blvd;[place] [address] | | | | + + + [...]
--- OUTSIDE RECORDS SUMMARY | ~2019-07-23 | XMS | Encounter Summary ---
Demographics + + + | Address | [address] | | | [place] [address] | + + + | Home Phone [...] Providers + +------+ + | Care Digital Marketing Specialist Name | Role | Phone [...] | | [address] | [place], [place] | | | | | [place], [place] | [address] | | | | | [address] | | | | | | [phone] | | | +--------+ + + + [...] [place] | | | | | | [address] | | | | | | | [...] F | | | | | | [place] [address] | | | | | | [phone] | | | | | | | | +--------+ + + + + | 10/21/ | Office | Cardiology | Nav Foley, | | | 2019 | Visit | | [address] | | | | | | [place] [address] | | | | | | [phone] | | | | | | | [...] 9.77 RAP: 3 mmHg | | | Car Dumper Operator Helper: NIGEL Authenticated by: Gretchen Joy Report | [...] mlLAESV Index (A-L): 37.87 ml/m2LAAs A2C: 22.69 [id number] | | A-L A2C: 93.63 mlLALs A2C: 4.66 cmLAAs A4C: 19.88 ed5MJHPV A-L A4C: 77.98 mlLALs | | A4C: 4.30 cmRAAd: 23.19 sm3VTQFY A-L: 97.65 mlRAEDV MOD: 89.83 mlRALd: 4.67 | | cmTAPSE: 2.19 cmAV maxP.27 mmHgAV meanP.41 mmHgAV Vmax: 1.03 m/Fabricio | | Vmean: 0.73 m/Fabricio VTI: 19.23 cmAVA Vmax: 4.21 cm2AVA (VTI): 4.42 cy3IHPH Vmax: | | 0.00 cm2/m2AVAI (VTI): 0.00 cm2/m2LVOT maxP.13 mmHgLVOT meanP.63 mmHgLVSI | | Dopp: 36.18 ml/m2LVSV Dopp: 85.04 mlLVOT Vmax: 0.88 m/sLVOT Vmean: 0.61 m/sLVOT | | VTI: 17.26 cmMV E Frank: 0.83 m/sMV DecT: 110.72 msSeptal e': 0.09 m/sSeptal | | E/e': 8.70Lateral e': 0.08 m/sLateral E/e': 9.77RAP: 3 mmHg Car Dumper Operator Helper: | | DBSAuthenticated by: Gretchen [facility] HospitalraReport Date/Time: 09-26-2017 7:40:19 IMPRESSION: 1. | [...] | |RAP: 3 mmHg | | | |Car Dumper Operator Helper: DBS | |Authenticated by: Gretchen Joy | [...]
--- OUTSIDE RECORDS SUMMARY | ~2019-07-23 | XMS | Clinical Summary ---
Demographics + + + | Address | [address] | | | [place] [address] | + + + | Home Phone | | + + + | Preferred Language | Unknown | + + + | Marital Status | | + + + | Hinduism Affiliation | Unknown | + + + | Race | Unknown | + + + | Ethnic Group | Unknown | + + + Author + + + | Author | [facility] (Historical as of | | | 04-05-19) | + + + | Organization | [facility] (Historical as of | | | 04-05-19) [...] Team Providers + +------+ + | Care Stores Clerk Name | Role | Phone | [...] DM II (diabetes mellitus, type II), controlled ([facility]) | 08/18/2018 | + + + | [...] pickleball, since he 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 Chiang in January | | 2009.Generator change by Dr. Delarosa in 2014 viva xt MEDICAL RESEARCHER D MDT | | number [id number].Patient has a 5076 atrial lead Medtronic. 6947 [...] QRS duration of over 160 ms. A MEDICAL RESEARCHER defibrillator | | was subsequently placed by [...] | 2019 | Visit | | [address] | | | | | | [place] | | | | | | [address] | | | | | | | [...] / Lot | + +--------+------+ +--------+--------+--------+ | Mold Hoister-D-05/17/2015Implanted: | Cardia | | [employer] - | [...] +------+-------+ + | MEDICARE | MEDICA | [id number] | | | [address] | | | RE | | | | [place] [address] | | | IP-OP | | | | | + +--------+ +------+-------+ + | COMMERCIAL OTHER | TRANSA | [id number] | | | | | | MERICA [...] | chas | | | 1964 | [address] | + +--------+ +--------+ + +
--- OUTSIDE RECORDS SUMMARY | ~2019-07-23 | XMS | Encounter Summary ---
Demographics + + + | Address | [address] | | | [place] [address] | + + + | Home Phone [...] Team Providers + +------+ + | Care Deckhand Tuna Boat Name | Role | Phone | + [...] MD | Panlobular | | | | [place], | | emphysema (HCC); | | | | [place] [address] | | Elevated left | | | | [phone] | | diaphragm; Sleep | | | [...] He did have his pacemaker adjusted at [facility], so that when he exerts himself, his hea rt rate increases. He did notice a difference the first day this was done. Per notes "Attem pted BLUE LEATHER SETTER optimization today; however, any time LV offset was changed, patient became dizzy a nd felt near-syncopal. BP throughout was stable. Ultimately, reverted back to LV offset -40, as this was the only setting he felt well. Even AdaptiveCRT made him profoundly symptomatic . Unfortunately, given these symptoms, patient did not tolerate BLUE LEATHER SETTER optimization. I did thornton ge him from DDD to DDDR, even though HR histograms showed good distribution of HRs, in hopes that this may give him improved activity tolerance." He is currently on a regimen of Spiriva one capsule inhaled daily. He notes he has run acro ss a couple of these that are empty. He contacted the program manager rn, and he did get 10 capsul es [...] He is currently on 3.5 LPM at [facility]. He reports good compliance. He remains very [...] Date COPD (chronic obstructive pulmonary disease) ([facility]) Allergic rhinitis seeing Dr. 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 Has pets at home: Cat Has ever owned birds: Yes an owl back in the s. Other animal exposures: Rabbits, lots of cats and dogs. Hobbies: Going to the [employer]. Allergies: Allergies Allergen Reactions Codeine Anaphylaxis Meperidine [...] made to ensure accuracy; however, inadvertent computerized manager asset management errors may be pre sent. Electronically signed [...] F | | | | | | [place] [address] | | | | | | [phone] | | | | | | | | +--------+ + + + + | 10/21/ | Office | Cardiology | Nav Foley, | | | 2019 | Visit | | [address] | | | | | | [place] [address] | | | | | | [phone] | | | | | | | [...]
--- OUTSIDE RECORDS SUMMARY | ~2019-07-23 | XMS | Encounter Summary ---
Demographics + + + | Address | [address] | | | [place] [address] | + + + | Home Phone [...] Team Providers + +------+ + | Care Host Hostess Name | Role | Phone | + [...] MD | oximetry) | | | | [place], | | | | | | [place] [address] | | | | | | [phone] | | | +--------+ + + + [...] [place] | | | | | | [address] | | | | | | | [...] [place] | | | | | | [place] [address] | | | | | | [phone] | | | | | | | | +--------+ + + + + | 10/21/ | Office | Cardiology | Nav Foley, | | | 2019 | Visit | | [address] | | | | | | [place] [address] | | | | | | [phone] | | | | | | | [...]
--- OUTSIDE RECORDS SUMMARY | ~2019-07-23 | XMS | Encounter Summary ---
Demographics + + + | Address | [address] | | | [place] [address] | + + + | Home Phone [...] Team Providers + +------+ + | Care Fund Controller Name | Role | Phone | + +------+ + | Carla Murphy | PCP | | | PA-C | | | + +------+ + Encounter Details +--------+ + + + + | Date | Type | Department | Care Team | Description | +--------+ + + + + | 03/26/ | Hospital | [facility] | Conversion | Unknown cause of | | 2016 | Encounter | CONVERSION DEP [address] | Transaction, | injury | | | | [address] | Provider Unknown | | | | | [place], [place] | [phone] | | | | | [address] | (Fax) | | | | | [phone] | | | +--------+ + + + [...] 2019 | Visit | | [address] | | | | | | [place] | | | | | | [address] | | | | | | | [...] | | | | | | [place] [address] | | | | | | [phone] | | | | | | | | +--------+ + + + + | 10/21/ | Office | Cardiology | Nav Foley, | | | 2019 | Visit | | [address] | | | | | | [place] [address] | | | | | | [phone] | | | | | | | [...]
--- OUTSIDE RECORDS SUMMARY | ~2019-07-23 | XMS | Encounter Summary ---
Demographics + + + | Address | [address] | | | [place] [address] | + + + | Home Phone [...] Providers + +------+ + | Care Talent Associate Name | Role | Phone | + +------+ + | Carla Murphy | PCP | | | PA-C | | | + +------+ + Encounter Details +--------+ + + + + | Date | Type | Department | Care Team | Description | +--------+ + + + + | 03/26/ | Hospital | [facility] | Conversion | Unknown cause of | | 2016 | Encounter | CONVERSION [address] | Transaction, | injury | | | | [address] | Provider Unknown | | | | | [place], [place] | [phone] | | | | | [address] | (Fax) | | | | | [phone] | | | +--------+ + + + [...] [place] | | | | | | [address] | | | | | | | [...] F | | | | | | [place] [address] | | | | | | [phone] | | | | | | | | +--------+ + + + + | 10/21/ | Office | Cardiology | Nav Foley, | | | 2019 | Visit | | [address] | | | | | | [place] [address] | | | | | | [phone] | | | | | | | [...]
--- OUTSIDE RECORDS SUMMARY | ~2019-07-23 | XMS | Encounter Summary ---
Demographics + + + | Address | [address] | | | [place] [address] | + + + | Home Phone [...] Providers + +------+ + | Care Soft Tile Setter Name | Role | Phone | + +------+ + | Carla Murphy | PCP | | | PA-C | | | + +------+ + Encounter Details +--------+ + + + + | Date | Type | Department | Care Team | Description | +--------+ + + + + | 01/20/ | Hospital | [facility] | Therese Sarabia DO | Hypotension due to | | 2017 - | Encounter | [facility] | [address] | drugs; Non-sustained | | | | CLINICAL DECISION | [place] [address] | ventricular | | 01/21/ | | [address] | [phone] | tachycardia (HCC) | | 2017 | | [place], [place] | | | | | | [address] | | | | | | [phone] | | | +--------+ + + + [...] 0856 Date of Service: 01/21/17851 Status: Signed Web Developer Programmer: Beau Rudolph MD (Physician) [facility] Service: Hospitalist Physician Discharge Summary Patient ID: Jared Abraham [id number] y.o. 1945 Admit date: 01/20/2017 Discharge [...] Disposition: *Home Follow up: Carla Juarez PA-C [address] [place] [address] Nav Foley MD [facility] [place] [id number] Dictation and substance abuse specialist or software, Property [employer], used which may contain error for similar [...] COPD (chronic obstructive pulmonary disease) (HCC) Pacemaker [place] (hard of hearing) Hypertension Hyperlipidemia AAA (abdominal aortic aneurysm) (HCC) MOISÉS (obstructive sleep apnea) 01/21/2017 Past Surgical History Procedure Laterality Date Pacemaker insertion 01/22/2014 Appendectomy Hernia repair Tumor removal head and neck Hand surgery tube put in to drain infection. Was put out for it as a child Aortic endograft N/A 09/23/2014 Procedure: AORTIC - ENDOGRAFT; Surgeon: Vincent Fields MD; Location: [facility] OR/SOUND DESIGNER; Ser vice: Vascular; Laterality: N/A; Significant Diagnostic [...] Commonly known as: NASACORT AQ Vitamin D3 21082 units Caps Refills: 0 STOP taking these [...] 01/21/1749 Date of Service: 01/21/17943 Status: Addendum Web Developer Programmer: Kalpana Bell RN (Registered Nurse) Related Notes: [...] 01/21/17337 Date of Service: 01/21/17337 Status: Signed Web Developer Programmer: Stanford Camarillo RPH (Pharmacist) Note ccl 103.3ml/min [...] [place] | | | | | | [address] | | | | | | | [...] | | | | | [place] [address] | | | | | | [phone] | | | | | | | | +--------+ + + + + | 10/21/ | Office | Cardiology | Nav Foley, | | | 2019 | Visit | | [address] | | | | | | [place] [address] | | | | | | [phone] | | | | | | | [...] | | | | | | ACUTE [place] Testing | | | | | | performed at [facility];[address] | | | | | | [facility];[place], [place] | | | | | | [address] | | | | + + + [...] EXTERNAL | | | | performed at [facility];[address] | | LAB | | | | [address];[place], [place] | | | | | | [address] | | | | + + + [...] | | | | | | ACUTE [place] Testing | | | | | | performed at [facility];[address] | | | | | | [address];[place], [place] | | | | | | [address] | | | | + + + [...] | | | | | performed at [facility];[address] | | | | | | [address];[place], [place] | | | | | | [address] | | | | + + + [...] EXTERNAL | | | | performed at [facility];[address] | | LAB | | | | [address];[place] | | | | | | [address] | | | | + + + [...] | | | | | | ACUTE [place] Testing | | | | | | performed at [facility] | | | | | | [address];[place], [place] | | | | | | [address] | | | | + + + [...] | | | Basophils | performed at [facility], [address] | [address] | LAB | | | | [address], | | | | | | [place] [address] | | | | + + + [...] EXTERNAL | | | | performed at [facility] | | LAB | | | | [address] [facility];[place], [place] | | | | | | [address] | | | | + + + [...] EXTERNAL | | | | performed at [facility];[address] | | LAB | | | | [address];[place] | | | | | | [address] | | | | + + + [...] EXTERNAL | | | | performed at [facility];[address] | | LAB | | | | [address];[place], [place] | | | | | | [address] | | | | + + + [...] | | | Cholesterol | performed at [facility], [address] | | LAB | | | , | [address], | | | | | Calculated, | [place] [address] | | | | | External | [...] | | | | | | at [facility];[address] [place] [address] | | | | | | [facility];[place] [address] | | | | + + + [...] | | | | | performed at [facility];[address] | | | | | | [address];[place], [place] | | | | | | [address] | | | | + + + [...] | | | Basophils | performed at [facility];[address] | [address] | LAB | | | | [address];[place] | | | | | | [address] | | | | + + + [...] EXTERNAL | | | | performed at [facility];[address] | | LAB | | | | [address];[place], [place] | | | | | | [address] | | | | + + + [...] EXTERNAL | | | | performed at [facility] | | LAB | | | | [address];[place], [place] | | | | | | [address] | | | | + + + [...] EXTERNAL | | | | performed at [facility] | | LAB | | | | [address];[place] | | | | | | [address] | | | | + + + [...] | | | | | | at [facility];[address] [place] [address] | | | | | | Blvd;[place] [address] | | | | + + + [...]
--- OUTSIDE RECORDS SUMMARY | ~2019-07-23 | XMS | Encounter Summary ---
Demographics + + + | Address | [address] | | | [place] [address] | + + + | Home Phone [...] Team Providers + +------+ + | Care Fruit Or Nut Farmworker Name | Role | Phone | + +------+ + | Carla Murphy | PCP | | | PA-C | | | + +------+ + Encounter Details +--------+ + + + + | Date | Type | Department | Care Team | Description | +--------+ + + + + | 03/26/ | Hospital | [facility] IP | Conversion | Unknown cause of | | 2016 | Encounter | [address]VERSION [address] | Transaction, | injury | | | | [address] | Provider Unknown | | | | | [place], [place] | [phone] | | | | | [phone] | (Fax) | | | | | [phone] | | | +--------+ + + + [...] [place] | | | | | | [address] | | | | | | | [...] F | | | | | | [place] [address] | | | | | | [phone] | | | | | | | | +--------+ + + + + | 10/21/ | Office | Cardiology | Nav Foley, | | | 2019 | Visit | | [address] | | | | | | [place] [address] | | | | | | [phone] | | | | | | | [...]
--- OUTSIDE RECORDS SUMMARY | ~2019-07-23 | XMS | Encounter Summary ---
Demographics + + + | Address | [address] | | | [place] [address] | + + + | Home Phone [...] Team Providers + +------+ + | Care Acute Care Assistant Name | Role | Phone | [...] [place] | | | | | [facility] [address] [place] | [address] | | | | | [address] | | | | | | [phone] | | | +--------+ + + + [...] [place] | | | | | | [address] | | | | | | | [...] | | | | | [place] [address] | | | | | | [phone] | | | | | | | | +--------+ + + + + | 10/21/ | Office | Cardiology | Nav Foley, | | | 2019 | Visit | | MD [address] | | | | | | [place] [address] | | | | | | [phone] | | | | | | | [...] PV maxP.92 mmHg PV Vmax: 0.99 m/s Apparel Sales Leader: | | | Authenticated by: LIZBET LYNN MD Report Date/Time: -- | | | [id number]:34 | | + + + + + [...] cmLVPWd: 1.13 cmLVOT Area: | | 5.09 [id number] Diam: 2.54 cm%FS: 1.72 %EF(Teich): 3.94 %ESV(Teich): [...] (A-L): 45.03 | | ml/m2LAAs A2C: 31.66 vy0DARCN A-L A2C: 147.72 mlLALs A2C: 5.75 cmLAAs A4C: 21.81 | | hm0CZRON A-L A4C: 68.38 mlLALs A4C: 5.90 cmRAAs: 25.43 pj2ZDKNX A-L: 100.41 | | mlRAESV MOD: 92.04 mlRALs: 5.46 cmAo Diam: 3.82 cmLA Diam: 4.65 cmLA/Ao: | | 1.21TAPSE: 2.41 cmAV maxP.90 mmHgAV meanP.40 mmHgAV Vmax: 1.21 m/Fabricio | | Vmean: 0.87 m/Fabricio VTI: 23.83 cmAVA Vmax: 3.69 cm2AVA (VTI): 3.60 gn2ATJG Vmax: | | 0.00 cm2/m2AVAI (VTI): 0.00 cm2/m2LVOT maxP.10 mmHgLVOT meanP.59 mmHgLVSI | | Dopp: 37.97 ml/m2LVSV Dopp: 85.81 mlLVOT Vmax: 0.88 m/sLVOT Vmean: 0.59 m/sLVOT | | VTI: 16.83 cmMV A Frank: 0.65 m/sMV DecT: 257.92 msMV E Frank: 0.47 m/sMV E/A | | Ratio: 0.73MV PHT: 74.79 msMVA By PHT: 2.94 xl7Twscei e': 0.04 m/sSeptal E/e': | | 11.67Lateral e': 0.04 m/sLateral E/e': 10.11PV maxP.92 mmHgPV Vmax: 0.99 | | m/s Apparel Sales Leader:Authenticated by: Devan LEE Date/Time: -- | | [id number]:9:34 IMPRESSION: 1. Overall left ventricular systolic function [...] |PV Vmax: 0.99 m/s | | | |Apparel Sales Leader: | |Authenticated by: LIZBET LYNN MD | |Report Date/Time: [id number]:9:34 | | | |IMPRESSION: | |1. Overall [...]
--- OUTSIDE RECORDS SUMMARY | ~2019-07-23 | XMS | Encounter Summary ---
Demographics + + + | Address | [address] | | | [place] [address] | + + + | Home Phone [...] Team Providers + +------+ + | Care Circuit Design Engineer Name | Role | Phone | + +------+ + | Carla Murphy | PCP | | | PA-C | | | + +------+ + Encounter Details +--------+ + + + + | Date | Type | Department | Care Team | Description | +--------+ + + + + | 03/26/ | Hospital | [facility] IP | Conversion | Unknown cause of | | 2016 | Encounter | CONVERSION [address] | Transaction, | injury | | | | [address] | Provider Unknown | | | | | [place], [place] | [phone] | | | | | [phone] | (Fax) | | | | | [phone] | | | +--------+ + + + [...] [place] | | | | | | [address] | | | | | | | [...] F | | | | | | [place] [address] | | | | | | [phone] | | | | | | | | +--------+ + + + + | 10/21/ | Office | Cardiology | Nav Foley, | | | 2019 | Visit | | [address] | | | | | | [place] [address] | | | | | | [phone] | | | | | | | [...]
--- OUTSIDE RECORDS SUMMARY | ~2019-07-23 | XMS | Clinical Summary ---
Demographics + + + | Address | [address] | | | [place] [address] | + + + | Home Phone [...] Team Providers + +------+ + | Care Impression Printer Name | Role | Phone | [...] Danis's with consult form stroke team at [facility]. 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 Chiang in January | | 2009.Generator change by Dr. Delarosa in 2014 viva xt CREDENTIALING COORDINATOR D MDT | | number [id number].Patient has a 5076 atrial lead Medtronic. 6947 [...] defibrillator | | | | | | (CREDENTIALING COORDINATOR-D) in place; | | | | [...] [place] | | | | | | [address] | | | | | | | [...] F | | | | | | [place] [address] | | | | | | [phone] | | | | | | | | +--------+ + + + + | 10/21/ | Office | Cardiology | Nav Foley, | | | 2019 | Visit | | [address] | | | | | | [place] [address] | | | | | | [phone] | | | | | | | [...] defibrillator | | | | | | (CREDENTIALING COORDINATOR-D) in place | | | | | [...] | | | | | by [facility] [place] Read Only, | | | | | | [employer] (810), | | | | | | film and video editor Darwin Bob | | | | | | (506) on 07/21/2019 | | | | | [...] Murphy PA-C | | | : 1945MRN: [id number] Primary cardiology provider: Poppy | | | Ruby Rodriguez Primary electrophysiology provider: Constantin Chavez | | | Device demand generation manager: Medtronic Device type: Biventricular Battery | | [...] | the last interrogation. Testing reviewed by: Subway Fransisca Shoemaker | | | | | [...] | | | | |Testing reviewed by: [employer] Fransisca Shoemaker | | | | | [...] +--------+ +---------+--------+ | MEDICARE | MEDICA | [id number] | 10/19/19 | [phone] | | Medica | | | RE | | 13-Pre | 5 | | re | | | PART A | | sent | | | | | | AND B | | | | | | + +--------+ +--------+ +---------+--------+ | MEDICARE | MEDICA | [id number] | 05/31/ | [phone] | | Medica | | | RE | | 2019-P | 5 | | re | | | PART A | | resent | | | | | | AND B | | | | | | + +--------+ +--------+ +---------+--------+ | [employer] | TRANSA | [id number] | 10/19/19 | | | Indemn | | INSURANCE | MERICA | | 15-Pre | | | ity | | | LIFE | | sent | | | | | | MS | | | | | | + +--------+ +--------+ +---------+--------+ | [employer] | TRANSA | [id number] | 10/19/19 | | | Indemn | | INSURANCE | MERICA | [id number] | 15-Pre | | | ity | [...] chas | | | 6 (Home) | [phone] | + +--------+ +--------+ + + | Jared Abraham | Person | Self | [birth year] | [address] | | [place] | al/Fam | | 1945 | [phone] | [place], [place] | | | chas | | | 6 (Home) | [address] | + +--------+ +--------+ + + Advance Directives + + + + + | Type | Date Recorded | Patient | Explanation | | | | Wire Cutter | | + + + + + | Power of | | | | | Policy Adviser | | | | + + + + + | Advance | 10/19/2015 1:30 | | | | Directive | PM | | | + + + + +
--- OUTSIDE RECORDS SUMMARY | ~2019-07-23 | XMS | Encounter Summary ---
Demographics + + + | Address | [address] | | | [place] [address] | + + + | Home Phone [...] Team Providers + +------+ + | Care Shell Maker Lockstitch Name | Role | Phone | + [...] | pulmonary disease, | | | | [place], | | unspecified COPD | | | | [place] [address] | | type (HCC) (Primary | | | | [phone] | | Dx) | +--------+ + + [...] [place] | | | | | | [address] | | | | | | | [...] | | | | | [place] [address] | | | | | | [phone] | | | | | | | | +--------+ + + + + | 10/21/ | Office | Cardiology | Nav Foley, | | | 2019 | Visit | | MD [address] | | | | | | [place] [address] | | | | | | [phone] | | | | | | | | +--------+ + + + + documented as of this encounter Results PFT PULMONARY FUNCTION TESTING ORDERS Full PFT ([place] w/BD, lung volumes, diffusion)?: Yes (10/24/2015 3:47 [...] | | Sailaja Nicholson MD 10/24/2015 15:44 [facility] | | | [facility] CC: Carla Juarez PA-C | | + + + documented in this encounter Visit Diagnoses + + | Diagnosis | + + | Chronic obstructive pulmonary disease, unspecified COPD type (HCC) - Primary | + + documented in this encounter"
--- OUTSIDE RECORDS SUMMARY | ~2019-07-23 | XMS | Encounter Summary ---
Demographics + + + | Address | [address] | | | [place] [address] | + + + | Home Phone [...] Team Providers + +------+ + | Care Enrollment Coordinator Name | Role | Phone | [...] [facility]) | | | | [place], | | | | | | [place] [address] | | | | | | [phone] | | | +--------+ + + + [...] | | | | | [place] | | | | | | [address] | | | | | | | [...] F | | | | | | [place] [address] | | | | | | [phone] | | | | | | | | +--------+ + + + + | 10/21/ | Office | Cardiology | Nav Foley, | | | 2019 | Visit | | [address] | | | | | | [place] [address] | | | | | | [phone] | | | | | | | | +--------+ + + + + documented as of this encounter Visit Diagnoses + + | Diagnosis | + + | Panlobular emphysema (HCC) Other emphysema | + + documented in this encounter"
--- OUTSIDE RECORDS SUMMARY | ~2019-07-23 | XMS | Encounter Summary ---
Demographics + + + | Address | [address] | | | [place] [address] | + + + | Home Phone [...] Team Providers + +------+ + | Care Artificial Limb Fitter Name | Role | Phone | + +------+ + PCP | Unavailable | + +------+ + Encounter Details +--------+ + + + + | Date | Type | Department | Care Team | Description | +--------+ + + + + | 09/23/ | Hospital | [facility] | Vincent Fields MD | AAA (abdominal | | 2015 - | Encounter | [facility] | [address] | aortic aneurysm) | | | | CARE FLOOR [address] | [place], [place] | ([facility]) | | 09/24/ | | [address] | [address] | | | 2014 | | [place] | [phone] | | | | | [address] | | | | | | [phone] | | | +--------+ + + + [...] 1537 Date of Service: 09/24/14918 Status: Signed Teller Vault: MORRO Arboleda (Mario Registered Nurse Practitioner) [facility] Service: Vascular Surgery Discharge Summary Date of [...] heart COPD (chronic obstructive pulmonary disease) Pacemaker CHEFORNAK (hard of hearing) Past Surgical History Procedure [...] file. 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 You may get the following medications from [...] Date of Service: 09/24/14 1517 Status: Signed Teller Vault: Mirna Donato RN (Registered Nurse) Pt and family received dc instruct verbal and written. They stated understanding. onver chetna Transaction, Provider Unknown - 09/24/2014 10:48 AM PST Therapy Progress Note by Waldemar Floyd PT at 09/24/14 1048 Author: Waldemar Floyd PT Service: (none) Author Type: Physical Therapist Filed: 09/24/14 1146 Date of Service: 09/24/14 1048 Status: Signed Teller Vault: Waldemar Floyd PT (Physical Therapist) 09/24/14 1048 PT Last Visit PT Received On 09/24/14 Reason for Treatment Other (comment) (AAA repair) Requires PT Follow Up No Follow up PT Only? No PT Eval/Reassessment Date 09/24/14 Assistance Required 1 person Filler Shaker Needed No Home Environment Type of Home [...] was employed until recentl y at the [employer] in [place]. States that he has friends and neighbors that can assist if he would need it. Prior Function Level of [place] Independent with functional mobility;Independent with ADLs;Independe nt [...] Eval/Reassessment Date 09/24/14 Assistance Required 1 person Filler Shaker Needed No Other Comments Comments Chart reviewed, [...] 09/23/141913 Date of Service: 09/23/141908 Status: Signed Teller Vault: Yoon Michele RN (Registered Nurse) Pt still [...] 09/23/141710 Date of Service: 09/23/141710 Status: Signed Teller Vault: Louise Herrera RPH (Pharmacist) Clinical Pharmacy Note: [...] 1746 Date of Service: 09/23/141699 Status: Signed Teller Vault: Yoon Michele RN (Registered Nurse) Upon arrival [...] 09/23/141727 Date of Service: 09/23/141699 Status: Signed Teller Vault: Juana Hayes Pt transferred to Cardiac Unit and bedside report given to Sabra ALLISON. In PACU repeat ACT was completed by Photo Mask Inspector RN prior to transport:. Current result 110. [...] [place] | | | | | | [address] | | | | | | | [...] | | | | | [place] [address] | | | | | | [phone] | | | | | | | | +--------+ + + + + | 10/21/ | Office | Cardiology | Nav Foley, | | | 2019 | Visit | | MD [address] | | | | | | [place] [address] | | | | | | [phone] | | | | | | | [...] | LAB | | | | [address], | | | | | | [place] [address] | | | | + + + + + + | RED CELL | 4.36Comment: Testing | 4.20 - 5.70 | EXTERNAL | | | COUNT | performed at [facility], [address] | M/uL | LAB | | | | [address], | | | | | | [place] [address] | | | | + + + + + + | Hgb | 13.4Comment: Testing | 13.2 - 17.0 | EXTERNAL | | | | performed at [facility], [address] | g/dL | LAB | | | | [address], | | | | | | [place] [address] | | | | + + + + + + | Hematocrit, | 39.7Comment: Testing | 39.0 - 50.0 % | EXTERNAL | | | POC | performed at [facility], [address] | | LAB | | | | [address], | | | | | | [place] [address] | | | | + + + + + + | MCV | 91.0Comment: Testing | 80.0 - 100.0 fl | EXTERNAL | | | | performed at [facility], [address] | | LAB | | | | [address], | | | | | | [place] [address] | | | | + + + + + + | MCH | 30.8Comment: Testing | 27.0 - 34.0 pg | EXTERNAL | | | | performed at [facility], [address] | | LAB | | | | [address], | | | | | | [place] [address] | | | | + + + + + + | MCHC | 33.9Comment: Testing | 32.0 - 35.5 | EXTERNAL | | | | performed at [facility], [address] | g/dL | LAB | | | | [address], | | | | | | [place] [address] | | | | + + + + + + | RDW-CV | 44.6Comment: Testing | 37 - 53 fl | EXTERNAL | | | | performed at [facility], [address] | | LAB | | | | [address], | | | | | | [place] [address] | | | | + + + + + + | Platelet | 227Comment: Testing | 150 - 400 K/uL | EXTERNAL | | | Count | performed at [facility], [address] | | LAB | | | Plasma | [address], | | | | | | [place] [address] | | | | + + + + + + | MPV | 8.8Comment: Testing | fl | EXTERNAL | | | | performed at [facility], [address] | | LAB | | | | [address], | | | | | | [place], [place] [address] | | | | + + + + + + | Differentia | MANUALComment: Testing | | EXTERNAL | | | l Type | performed at [facility], [address] | | LAB | | | | [address], | | | | | | [place] [address] | | | | + + + + + + | Segmented | 80Comment: Testing | % | EXTERNAL | | | Neutrophils | performed at [facility], [address] | | LAB | | | Manual | [address], | | | | | | [place] [address] | | | | + + + + + + | % Bands | 12Comment: Testing | % | EXTERNAL | | | | performed at [facility], [address] | | LAB | | | | [address], | | | | | | [place] [address] | | | | + + + + + + | Lymphocytes | 6Comment: Testing | % | EXTERNAL | | | Manual | performed at [facility], [address] | | LAB | | | | [address], | | | | | | [place] [address] | | | | + + + + + + | Monocytes | 2Comment: Testing | % | EXTERNAL | | | Manual | performed at [facility], [address] | | LAB | | | | [address], | | | | | | [place] [address] | | | | + + + + + + | Absolute | 18.9 (H)Comment: Testing | 1.9 - 7.4 K/uL | EXTERNAL | | | Neutrophils | performed at [facility], [address] | | LAB | | | | [address], | | | | | | [place] [address] | | | | + + + + + + | Bands | 2.8 (H)Comment: Testing | 0 - 0.2 K/uL | EXTERNAL | | | Manual | performed at [facility], [address] | | LAB | | | | [address], | | | | | | [place] [address] | | | | + + + + + + | Absolute | 1.4Comment: Testing | 1.0 - 3.9 K/uL | EXTERNAL | | | Lymphocytes | performed at [facility], [address] | | LAB | | | | [address], | | | | | | [place] [address] | | | | + + + + + + | Absolute | 0.5Comment: Testing | 0 - 0.8 K/uL | EXTERNAL | | | Monocytes | performed at [facility], [address] | | LAB | | | | [address], | | | | | | [place] [address] | | | | + + + + + + | RBC | RBC AND PLT MORPHOLOGY | | EXTERNAL | | | Morphology | APPEAR NORMALComment: | | LAB | | | | Testing performed at | | | | | | [facility], [address] | | | | | | [place] | | | | | | [address] | | | | + + + [...] | | | | | [place] [address] | | | | + + + + + + | K | 4.2Comment: Testing | 3.5 - 4.9 | EXTERNAL | | | | performed at [facility], [address] | mmol/L | LAB | | | | [address], | | | | | | [place] [address] | | | | + + + + + + | Cl | 101Comment: Testing | 99 - 109 mmol/L | EXTERNAL | | | | performed at [facility], [address] | | LAB | | | | [address], | | | | | | [place] [address] | | | | + + + + + + | CO2 | 28Comment: Testing | 23 - 32 mmol/L | EXTERNAL | | | | performed at [facility], [address] | | LAB | | | | [address], | | | | | | [place] [address] | | | | + + + + + + | Anion Gap | 8Comment: Testing | 5 - 20 mmol/L | EXTERNAL | | | | performed at [facility], [address] | | LAB | | | | [address], | | | | | | [place] [address] | | | | + + + + + + | Glucose, | 183 (H)Comment: Testing | 65 - 99 mg/dL | EXTERNAL | | | Fasting | performed at [facility], [address] | | LAB | | | | [address], | | | | | | [place] [address] | | | | + + + + + + | BUN | 12Comment: Testing | 8 - 25 mg/dL | EXTERNAL | | | | performed at [facility], [address] | | LAB | | | | [address], | | | | | | [place] [address] | | | | + + + + + + | Creatinine | 0.81Comment: Testing | 0.70 - 1.30 | EXTERNAL | | | | performed at [facility], [address] | mg/dL | LAB | | | | [address], | | | | | | [place] [address] | | | | + + + + + + | BUN/Creatin | 15Comment: Testing | | EXTERNAL | | | ine Ratio | performed at [facility], [address] | | LAB | | | | [address], | | | | | | [place] [address] | | | | + + + + + + | Calcium | 8.3 (L)Comment: NOTE NEW | 8.5 - 10.5 | EXTERNAL | | | | REFERENCE RANGETesting | mg/dL | LAB | | | | performed at [facility], [address] | | | | | | [facility], | | | | | | [place] [address] | | | | + + + [...] | | | | | | at [facility], [address] | | | | | | [facility], | | | | | | [place] [address] | | | | + + + [...] | | | Clotting | performed at [facility];888 | seconds | LAB | | | time, POC | [address];[place], [place] | | | | | | [address] | | | | + + + [...] SURGEON: | | | Vincent Fields MD TESTER ELECTRONIC SCALE: MORRO Arboleda ANESTHESIA: General | | | [...] | properly identified and brought to the Photo Mask Inspector. The patient was | | | placed supine on the Photo Mask Inspector table and the patient underwent general | [...] | | was upsized to a 7 Italian sheath. Next, a perclose device was deployed | | | at the 10:00 and 2:00 position in the right common femoral artery. | | | The 7 Italian sheath was then reinserted over the wire. A pigtail | | | catheter was then placed through the right sheath into the mid aorta. | | | Next, a micropuncture needle was used to access the left common | | | femoral artery. A micropuncture sheath was then inserted over wire and | | | this was upsized to a 7 Italian sheath. Again, a perclose device was | | | deployed at the 10:00 and 2:00 position in the left common femoral | | | artery. An Amplatz wire was then placed to the left 7 Italian sheath | | | with the tip of the wire in the aortic arch. Once the wire was in | | | place, the 7-Italian sheath was removed from the left common [...] | | placed into the right 7 moldovan sheath with the tip at the aortic arch. | | | The 7 moldovan sheath was then removed and upsized to a 16 moldovan | | | sheath. Next, a right [...] device was then removed and a 16 moldovan sheath was | | | inserted over the wire. A left iliac arteriogram was then performed | | | through the 16 Italian sheath and the location of the left [...] the Perclose device SURGEON: Vincent Fields MD TESTER ELECTRONIC SCALE: Ingrid | | MORRO Morris ANESTHESIA: General [...] identified and | | brought to the Photo Mask Inspector. The patient was placed supine on the Photo Mask Inspector table and the | | patient underwent general endotracheal anesthesia. The patient's abdomen and bilateral | | groins were then prepped and draped in the usual sterile fashion. First, a micropuncture | | needle was used to access the right common femoral artery. A micropuncture sheath was | | then inserted over wire and this was upsized to a 7 Italian sheath. Next, a perclose | | device was deployed at the 10:00 and 2:00 position in the right common femoral artery. | | The 7 Italian sheath was then reinserted over the wire. A pigtail catheter was then | | placed through the right sheath into the mid aorta. Next, a micropuncture needle was | | used to access the left common femoral artery. A micropuncture sheath was then inserted | | over wire and this was upsized to a 7 Italian sheath. Again, a perclose device was | | deployed at the 10:00 and 2:00 position in the left common femoral artery. An Amplatz | | wire was then placed to the left 7 Italian sheath with the tip of the wire in the aortic | | arch. Once the wire was in place, the 7-Italian sheath was removed from the left common [...] placed into the right 7 | | moldovan sheath with the tip at the aortic arch. The 7 moldovan sheath was then removed and | | upsized to a 16 moldovan sheath. Next, a right iliac artery arteriogram [...] device was then removed and a 16 moldovan sheath was inserted over the wire. A | | left iliac arteriogram was then performed through the 16 Italian sheath and the location | | of [...] SURGEON: | | | Vincent Fields MD TESTER ELECTRONIC SCALE: MORRO Arboleda ANESTHESIA: General | | | [...] | properly identified and brought to the Photo Mask Inspector. The patient was | | | placed supine on the Photo Mask Inspector table and the patient underwent general | [...] | | was upsized to a 7 Italian sheath. Next, a perclose device was deployed | | | at the 10:00 and 2:00 position in the right common femoral artery. | | | The 7 Italian sheath was then reinserted over the wire. A pigtail | | | catheter was then placed through the right sheath into the mid aorta. | | | Next, a micropuncture needle was used to access the left common | | | femoral artery. A micropuncture sheath was then inserted over wire and | | | this was upsized to a 7 Italian sheath. Again, a perclose device was | | | deployed at the 10:00 and 2:00 position in the left common femoral | | | artery. An Amplatz wire was then placed to the left 7 Italian sheath | | | with the tip of the wire in the aortic arch. Once the wire was in | | | place, the 7-Italian sheath was removed from the left common [...] | | placed into the right 7 moldovan sheath with the tip at the aortic arch. | | | The 7 moldovan sheath was then removed and upsized to a 16 moldovan | | | sheath. Next, a right [...] device was then removed and a 16 moldovan sheath was | | | inserted over the wire. A left iliac arteriogram was then performed | | | through the 16 Italian sheath and the location of the left [...] the Perclose device SURGEON: Vincent Fields MD TESTER ELECTRONIC SCALE: Ingrid | | MORRO Morris ANESTHESIA: General [...] identified and | | brought to the Photo Mask Inspector. The patient was placed supine on the Photo Mask Inspector table and the | | patient underwent general endotracheal anesthesia. The patient's abdomen and bilateral | | groins were then prepped and draped in the usual sterile fashion. First, a micropuncture | | needle was used to access the right common femoral artery. A micropuncture sheath was | | then inserted over wire and this was upsized to a 7 Italian sheath. Next, a perclose | | device was deployed at the 10:00 and 2:00 position in the right common femoral artery. | | The 7 Italian sheath was then reinserted over the wire. A pigtail catheter was then | | placed through the right sheath into the mid aorta. Next, a micropuncture needle was | | used to access the left common femoral artery. A micropuncture sheath was then inserted | | over wire and this was upsized to a 7 Italian sheath. Again, a perclose device was | | deployed at the 10:00 and 2:00 position in the left common femoral artery. An Amplatz | | wire was then placed to the left 7 Italian sheath with the tip of the wire in the aortic | | arch. Once the wire was in place, the 7-Italian sheath was removed from the left common [...] placed into the right 7 | | moldovan sheath with the tip at the aortic arch. The 7 moldovan sheath was then removed and | | upsized to a 16 moldovan sheath. Next, a right iliac artery arteriogram [...] device was then removed and a 16 moldovan sheath was inserted over the wire. A | | left iliac arteriogram was then performed through the 16 Italian sheath and the location | | of [...] | | | Clotting | performed at [facility];888 | seconds | LAB | | | time, POC | [address];[place], [place] | | | | | | [address] | | | | + + + [...] | | | Clotting | performed at [facility];888 | seconds | LAB | | | time, POC | [address];[place], [place] | | | | | | [address] | | | | + + + [...] | | | Clotting | performed at [facility];888 | seconds | LAB | | | time, POC | [address];[place], [place] | | | | | | [address] | | | | + + + [...]
--- OUTSIDE RECORDS SUMMARY | ~2019-07-23 | XMS | Encounter Summary ---
Demographics + + + | Address | [address] | | | [place] [address] | + + + | Home Phone [...] Team Providers + +------+ + | Care Integrated Circuit Fabricator Name | Role | Phone | + +------+ + | Carla Murphy | PCP | | | PA-C | | | + +------+ + Encounter Details +--------+ + + + + | Date | Type | Department | Care Team | Description | +--------+ + + + + | 05// | Orders Only | [facility] | Gretchen Joy, | | | 2017 | | CARDIOLOGY SHANNON Donato MD [address] | | | | | [address] | [place], [place] | | | | | [place], [place] | [address] | | | | | [address] | | | | | | [phone] | | | +--------+ + + + [...] [place] | | | | | | [address] | | | | | | | [...] F | | | | | | [place] [address] | | | | | | [phone] | | | | | | | | +--------+ + + + + | 10/21/ | Office | Cardiology | Nav Foley, | | | 2019 | Visit | | [address] | | | | | | [place] [address] | | | | | | [phone] | | | | | | | [...]
--- OUTSIDE RECORDS SUMMARY | ~2019-07-23 | XMS | Encounter Summary ---
Demographics + + + | Address | [address] | | | [place] [address] | + + + | Home Phone [...] Team Providers + +------+ + | Care Acquisition Lead Name | Role | Phone | [...] Chiang MD | | | | | [place], | | | | | | [place] [address] | | | | | | [phone] | | | +--------+ + + + [...] | | | | | [place] | | | | | | [address] | | | | | | | [...] F | | | | | | [place] [address] | | | | | | [phone] | | | | | | | | +--------+ + + + + | 10/21/ | Office | Cardiology | NormaNav moreno, | | | 2019 | Visit | | [address] | | | | | | [place] [address] | | | | | | [phone] | | | | | | | [...] [address] | [place] | [phone] | | [facility] | | [address] | | | - LABORATORY | | [...] ST. | [address] | [place] | [phone] | | [facility] | | [address] | | | - LABORATORY | | [...] [address] | [place] | [phone] | | [facility] | | [address] | | | - LABORATORY | | [...]
--- OUTSIDE RECORDS SUMMARY | 2019-07-23 15:46 | XMS ---
PreManage Notification: FRANCI VELÁZQUEZ Security Fertilizer Applicator Events No recent Security Events currently on file CRITERIA MET - Group Notification - [facility] - Has Care Guidelines CARE PROVIDERS SEN COLINDRES Physician Woodwork Teacher 04/16/2018-Current PHONE: [phone] [place] has no Care Guidelines for this patient. Care History Medical/Surgical 05/27/2019 [facility] - PATIENT HAS A PHARMACY BILLING ADJUDICATOR DR BAZAN AT [facility]. Josie VISIT COUNT (12 MO.) 1 [facility] 4 [facility] TOTAL 5 NOTE: Visits indicate total known visits. ED/UCC VISIT TRACKING (12 MO.) 07/23/2019 15:43 [facility] TYPE: Emergency COMPLAINT: - BLOOD PRESSURE PROBLEM, DIZZINESS 05/26/2019 14:13 [facility] TYPE: Emergency COMPLAINT: - DIABETIC PROBLEM DIAGNOSES: - Allergy status to penicillin - Essential (primary) hypertension - nursing home (current) use of aspirin - Hypotension, unspecified - Presence of cardiac pacemaker - Weakness - Allergy status to narcotic agent status - Allergy status to analgesic agent status - Other fci (current) drug therapy 01/20/2019 04:00 [facility] [place] TYPE: Emergency COMPLAINT: - BLEEDING OUT OF RIGHT DIAGNOSES: - nursing home (current) use of oral hypoglycemic drugs - Unspecified perforation of tympanic membrane, right ear - Presence of cardiac pacemaker - Other fci (current) drug therapy - nursing home (current) use of aspirin - Essential (primary) hypertension - Allergy status to oth drug/meds/biol subst status - Allergy status to analgesic agent status - Allergy status to narcotic agent status - Allergy status to penicillin - Acquired absence of other specified parts of digestive tract - Otitis media, unspecified, right ear 08[facility]17/2018 22:[facility] DIAGNOSES: - Irregular Heart Beat 08/17/2018 17:04 RANJAN Miranda TYPE: Emergency COMPLAINT: - CHEST PAINS DIAGNOSES: - Allergy status to narcotic agent status - Allergy status to penicillin - Presence of cardiac pacemaker - Other fci (current) drug therapy - Syncope and collapse - Allergy status to oth drug/meds/biol subst status - Chest pain, unspecified INPATIENT VISIT TRACKING (12 MO.) 08/17/2018 22:29 [facility] [place] TYPE: General Medicine DIAGNOSES: - Irregular Heart Beat - Syncope and collapse - Ventricular tachycardia [email or web address]
[2019-07-23] MEDS ORDERED: BISOPROLOL FUMAR5 MG PO (16:20)
--- NOTE | 2019-07-23 17:52 | EKG ---
[facility] [address] [facility] [place] [address] Signed Atrial-sensed ventricular-paced rhythm with frequent premature ventricular complexes Abnormal ECG When compared with ECG of 26-MAY-2019 14:28, premature supraventricular complexes are no longer present Vent. rate has increased BY 3 BPM Confirmed by ARIANA NOVA DO ([id number]) on 07/23/2019 5:52:37 PM Electronically Signed By: ARIANA NOVA DO 07/23/19 1752 PATIENT NAME: FRANCI VELÁZQUEZ Electrocardiogram DATE OF : 49 PHYSICIAN: ARIANA NOVA DO REPORT #: [id number] REPORT IS CONFIDENTIAL AND NOT TO BE RELEASED WITHOUT AUTHORIZATION
--- NOTE | 2019-07-23 19:30 | NUR ---
ADMIT TO RM126 PER STRETCHER FROM ED. IS ALERT AND ORIENTED X3, ABLE TO TRANSFER SELF FROM STRETCHER TO BED. C/O BED BEING UNCOMFORTABLE TO BACK AND IS SITTING AT EDGE OF BED. IS WORRIED ABOUT BEING ABLE TO SLEEP, HAS DIFFICULTY WITH STUFFY NOSE AND SINUSES, USUALLY USES AFRIN. OFFERED RECLINER FOR COMFORT. CALL LIGHT IN PLACE AND INSTRUCTED NOT TO GET UP WITHOUT CALLING.
--- NOTE | 2019-07-23 21:45 | NUR ---
PT SITTING AT EDGE OF BED. HEART RHYTHM IS AV PACED WITH PVCS'. BP TAKEN THEN HAD PT STAND. BP AT ONE MIN DID DEC SEE VS PAGE AND PER OXYMETER HR TO 30, PT AFFIRMS IS DYZZY. STATES HE GETS DIZZY WHEN HE STANDS FOR ANY LENGTH OF TIME WITHOUT BEING ABLE TO LEAN ON SOMETHING. WHEN JUANITA GERARDO REVIEWED RHYTHM WAS IN 70'S, PACED WITH VENT TRIGEMINY, WHEN PULSE WAS PALPATED DURING THIS EPISODE COULD FEEL 2 STRONG BEATS THEN PAUSE, THIS RHYTHM WAS REPEATED. HAD PT SIT DOWN, DR NOVA NOTIFIED.
--- NOTE | 2019-07-23 22:55 | NUR ---
PT CALLED NURSE. PT EXPRESSES FRUSTRATION AND STATES HE DOESN'T WANT TO BE HERE. "HOW AM I GOING TO GET ANY SLEEP?" ASKED IF IT WOULD BE POSSABLE TO GO HOME. WAS TOLD HE COULD IF SIGNED OUT AMA. PT TALKED ABOUT BEING UPSET THAT HIS SON DIDN'T COME IN AND SEE HIM. ALSO SPOKE OF FRUSTRATIONS WITH HIS MEDICAL MANAGEMENT OUTSIDE THE HOSPITAL. ALSO STATES HE IS SCARED. EXPLAINED TO PT PLAN TO KEEP OVERNIGHT AND GIVEN IVF WHICH ARE NOW COMPLETED, MONITOR PT AND PROBABLE DISCHARGE IN AM. PT ALSO STILL WANTING AFRIN FOR NASAL CONGESTION. . AFRIN ORDERED. PT CALMER, HAS WALKER IN ROOM WHICH PT USES, DID AMB TO BR TO HAVE BM.
--- NOTE | 2019-07-24 00:15 | NUR ---
PT USED AFRIN, C/O BEING COLD AND THAT THERE IS A COLD BREEZE IN ROOM. [employer] AND PT GIVEN WARM BLANKET.
--- NOTE | 2019-07-24 01:41 | NUR ---
SLEPPING A LITTLE. AWAKE TO VOID. NOTED THAT WHEN SLEEPING DID NOT HAVE ECTOPY BUT WHEN AWAKE AND STANDING AT BEDSIDE DID HAV PVC'S. GIVEN PUDDING AND CRACKERS.
--- NOTE | 2019-07-24 03:58 | NUR ---
AWAKE, STATES HAS NOT REALLY SLEPT. VOIDED TO URINAL. IN SOMEWHAT BETTER SPIRITS. HEART RHYTHM UNCHANGED.
--- NOTE | 2019-07-24 03:59 | NUR ---
DID AMB IN UNIT USING WALKER.
--- NOTE | 2019-07-24 05:23 | NUR ---
SLEEPING. WHEN SLEEPING THE AMT OF ECTOPY IS MUCH LESS THAN WHEN ACTIVE. DID C/O FLUTTERY FEELING IN CHEST EARLIER, NO CHANGES NOTED ON MONITOR.
--- NOTE | 2019-07-24 06:31 | NUR ---
AWAKENED FOR LAB DRAW. IS FEELING BETTER THIS AM.
--- NOTE | 2019-07-24 07:59 | NUR ---
Report recieved from family consumer scientist RN. Patient sitting up on side of bed. Breakfast just arrived. Patient talking about how he doesn't really want to be here.
--- NOTE | 2019-07-24 08:15 | NUR ---
Spoke with Hayden and he lives alone in an apartment. Friend lives in the apartment below and assists him. He states he has two adult children that are not involved. Pt drives self. Plans on going home to apartment and friend, Mili, will pick him up and drive him when he is discharged.
--- NOTE | 2019-07-24 09:07 | NUR ---
STATES SLEEPY, HELPED HIM LAY DOWN IN BED.
--- NOTE | 2019-07-24 09:12 | NUR ---
DR NOVA NOTIFIED OF LOWER BP. NO NEW ORDERS CURRENTLY.
--- NOTE | 2019-07-24 11:30 | NUR ---
visitors in room. orthostatic vital signs completed.
[2019-07-24] MEDS ORDERED: BISOPROLOL FUMAR5 MG PO (12:19)
--- NOTE | 2019-07-24 12:39 | NUR ---
DR NOVA JUST SEEING PATIENT.
--- NOTE | 2019-07-24 12:56 | NUR ---
patient was sitting on side of bed and became nauseated while trying to eat. also some dizzyness/lightheaded. BP 91/33, hr 75 on telemetry and spo2 94% on RA.
[2019-07-24] MEDS ORDERED: GLUCOPHAGE500 MG PO (13:41)
[2019-07-24] MEDS ORDERED: MAGNESIUM250 M1 PO (13:42)
--- NOTE | 2019-07-24 13:43 | NUR ---
MED REC COMPLETE
--- NOTE | 2019-07-24 15:03 | NUR ---
Sleeping in bed now. Visitors left.
--- NOTE | 2019-07-24 16:24 | NUR ---
UP SITTING ON SIDE OF BED TALKING WITH VISITOR. USED URINAL ON HIS OWN, TOLERATED WELL.
--- NOTE | 2019-07-24 16:26 | NUR ---
ORTHOSTATIC VITALS WERE NEGATIVE, BUT DID HAVE A COUPLE EPISODES OF SYMPTOMATIC LOW BP 90'S/40'S, CAUSING DIZZYNESS AND NAUSEA. MINIMAL APPETITE TODAY. STATES USED TO SWING SHIFT SCHEDULE.
--- NOTE | 2019-07-24 16:51 | NUR ---
DR Otto made aware of urine output on patient. No new orders. Also updated MD on how patient has been doing today.
--- NOTE | 2019-07-24 19:25 | NUR ---
PT REPORT RECIEVED FROM CCU RN. CARE ASSUMED AT THIS TIME.
--- NOTE | 2019-07-24 20:59 | NUR ---
IN ROOM FOR MEDICATION ADMINISTRATION. PT STATES THAT HE REALLY WOULD LIKE TO LEAVE. TALKED TO PATIENT ABOUT HIS FRUSTRATIONS WITH MEDICATION MANAGEMENT. PT STATES HE IS FRUSTRATED AND WOULD BE MORE COMFORTABLE AT HOME.
--- NOTE | 2019-07-24 22:40 | NUR ---
RESPONDED TO PATIENT CALL LIGHT. PT AGAIN STATES WANTING TO LEAVE, THERAPUTIC COMMUNICATION. AGREES TO STAY FOR NOW. CALL LIGHT WITHIN REACH. NO FURTHER NEEDS AT THIS TIME.
--- NOTE | 2019-07-24 23:07 | NUR ---
PT AMBULATING IN THE HALLWAY. ASKING IF TAXI SERVICE IS STILL RUNNING AT THIS TIME. THERAPEUTIC COMMUNICATION ATTEMPTED.
--- NOTE | 2019-07-25 00:14 | NUR ---
SPOKE WITH pt FOR AN HOUR DISCUSSING HIS HEART CONDITION, MEDICATIONS, AND GENERAL THERAPEUTIC COMMUNICATION. VITALS AND I&O RECORDED. PRIMARY RN UPDATED.
--- NOTE | 2019-07-25 00:30 | NUR ---
MIDNIGHT ASSESSMENT COMPLETED. PT DENIES ANY DIZZY SPELLS OR DISCOMFORT. CALL LIGHT WITHIN REACH.
--- NOTE | 2019-07-25 01:00 | NUR ---
PT LAYING DOWN TO SLEEP AT THIS TIME. PLACED ON 4 L NC. CALL LIGHT AND PERSONAL ITEMS WITHIN REACH. NO FURTHER NEEDS AT THIS TIME
--- NOTE | 2019-07-25 02:45 | NUR ---
PT UP TO USE URINAL. BACK IN BED NO FURTHER NEEDS AT THIS TIME.
--- NOTE | 2019-07-25 03:30 | NUR ---
PT RESTING WITH EYES CLOSED, BREATHING EVEN AND UNLABORED R=18. CALL LIGHT AND PRESONAL ITEMS WITHIN REACH.
--- NOTE | 2019-07-25 04:30 | NUR ---
PT RESTING WITH EYES CLOSED, BREATHING EVEN AND UNLABORED. R=14
--- NOTE | 2019-07-25 05:45 | NUR ---
LAB IN ROOM AT THIS TIME.
--- NOTE | 2019-07-25 06:30 | NUR ---
RESPONDED TO PATIENT CALL LIGHT. ASSESSMENT COMPLETED AT THIS TIME. PT VOIDED. DENIES ANY ISSUES WITH SHORTNESS OF BREATH OR DIZZINESS. CALL LIGHT WITH REACH. NO FURTHER NEEDS AT THIS TIME
--- NOTE | 2019-07-25 08:32 | NUR ---
PATIENT SLEEPING AT THIS TIME. WILL NOT DISTURB PATIENT FOR ASSESSMENT YET PATIENT NORMALLY DOES NOT GO TO BED UNTIL 3-4 AM. HR IN THE 60s, PACED ON TELE #7. RR EVEN AND UNLABORED. 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
[2019-07-25] MEDS ORDERED: METOPROLOL TART25 MG PO (09:43)
--- NOTE | 2019-07-25 09:43 | NUR ---
PATIENT AWOKEN AROUND 0915 FOR ASSESSMENT AND TO SEE DR. NOVA. DR. NOVA IN CONTACT WITH PT'S ANTIQUE JEWELRY REPAIRER AND RECOMMENDS PATIENT STAYS ON A BETA GEORGE. BREAKFAST ORDERED FOR PATIENT. PT DENIES ANY NAUSEA OR PRESYNCOPE FEELINGS. ASSESSMENT COMPLETE. PLAN IS FOR PATIENT TO D/C HOME AFTER BREAKFAST AND AFTER RECEIVING A DOSE OF HIS METOPROLOL.
--- NOTE | 2019-07-25 10:03 | NUR ---
PATIENT TO D/C HOME.
--- NOTE | 2019-07-25 10:27 | NUR ---
AT 1010, WHILE PATIENT WAS DISCUSSING D/C HOME MEDICATIONS WITH THE PHARMACIST, PATIENT STARTED TO FEEL PRE-SYNCOPAL AGAIN. PATIENT STATES HE NOTED THIS WHEN HE WAS ATTEMPTING TO GET DRESSED. PHARMACIST USES CALL LIGHT AND BLOOD PRESSURE TAKEN - NOTED TO BE 100/49 (55), AND 94/44 (58). PULSE IN WRIST PALPATED FOR 50 BPM. PT NOW BACK INTO BED TO REST. DR. NOVA MADE AWARE OF THIS AND PATIENT IS GOING TO BE ON HOLD GOING HOME AT THIS TIME. PT STATES, "I FEEL LIKE I NEED TO SLEEP NOW, AND THIS IS HOW I WAS FEELING ON SUNDAY WHEN ALL THIS STARTED." SP02 ALSO NOTED TO BE DROPPING TO 85% WHILE PT RESTING IN BED. PT ABLE TO TAKE DEEP BREATHS BUT SP02 DOES NOT STAY >90%. 3 L OXYGEN APPLIED TO PATIENT AT THIS TIME. SERIAL BPs TO BE TAKEN. PT PLACED BACK ON TELE WELL. WILL CONTINUE TO MONITOR CLOSELY.
--- NOTE | 2019-07-25 10:40 | NUR ---
NOTED ON REGIONAL ENVIRONMENTAL MANAGER THAT PT'S PULSE OX HR SHOWIN 29-30s, WHILE HIS TELEMETRY HR SHOWING MID 80s.
--- NOTE | 2019-07-25 11:20 | NUR ---
PATIENT REMAINS RESTING IN BED AT THIS TIME AND STATES HE IS STILL FEELING OVERALL JUST VERY TIRED. CONTINUING TO WATCH TELEMETRY AND HR ON THE PULSE OX THESE TWO DO NOT CORRELATE WITH EACH OTHER VERY WELL.
--- NOTE | 2019-07-25 11:39 | NUR ---
PATIENT USES CALL LIGHT AND IS NOTED TO BE NOW SITTING AT EDGE OF BED. PT NOT VERY TALKATIVE UPON ENTERING ROOM. ASKED PATIENT IF HE IS FEELING BETTER, AND HE STATES, "WELL I THOUGHT I WAS, BUT NOW THAT I'M SITTING UP, I FEEL BAD AGAIN." PATIENT HELPED TO LAY BACK DOWN, AND PATIENT THEN BECOMES NAUSEOUS. PT NOTED TO ALSO HAVE HR ON PULSE OX DOWN TO LOW 25 BUT IS NOW 60s. HR ON TELE IS 70s. PT IS OVERALL PALE, AND HAS BEEN PALE ENTIRE HOSPITALIZATION. ZOFRAN GIVEN FOR NAUSEA. DR. NOVA CALLED TO UPDATE AGAIN ABOUT THESE CONCERNS AND FINDINGS. DR. 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
--- NOTE | 2019-07-25 12:41 | NUR ---
PATIENT IS NOT A CCU PATIENT, AND DISCHARGE WILL NOT BE HAPPENING TODAY. WHEN ASKING PATIENT HOW HE FEELS AT THIS TIME, HE STATES, "I JUST FEEL LIKE I'M GOING TO GO TO SLEEP AND NOT WAKE UP." LAST BP 90/51 (61). CONTINUE TO MONITOR CLOSELY.
--- NOTE | 2019-07-25 13:10 | NUR ---
PLAN IS FOR PATIENT TO STAY IN HOSPITAL, AND HAS BEEN CHANGED TO INPATIENT IN CCU. HR MARCOS IN THE 60s. PT STILL STATES HE FEELS NOT WELL, AND NAUSEOUS, AND THAT HE IS STILL WORRIED, "IF I GO TO SLEEP, I'M WORRIED I WOULDN'T WAKE UP."
--- NOTE | 2019-07-25 14:36 | NUR ---
PATIENT GETTING ECHO DONE. HR HAS BEEN MORE CONSISTENT AND ALIGNING WITH PULSE OX HEART RATE IN THE LAST HOUR OR SO, SINCE AROUND 1340. WILL CONTINUE TO MONITOR. LAST BP 96/52 (62).
--- NOTE | 2019-07-25 15:13 | NUR ---
PATIENT RESTING AT THIS TIME. HR IN THE 60s AND IS REGULARLY PACED NOW, VENTRICULAR PACED. PULSE OX HR IS MATCHING EXACTLY NOW. SP02 IS 97% ON 1 L NC. WILL CONTINUE TO MONITOR AND ALLOWING PATIENT TO REST.
--- NOTE | 2019-07-25 18:01 | NUR ---
PATIENT ABLE TO EAT DINNER AND OVERALL STATES HE'S BEEN FEELING BETTER. HR AND PULSE OX HR HAS CONTINUED TO TREND BETTER TOGETHER. PT UP TO COMMODE TO ATTEMPT TO HAVE A BM, BUT UNABLE TO. PT REQUESTING SOMETHING TO HELP HIM GO. MIRALAX ORDERED, WELL STOOL SOFTENERS. PT'S COLOR OVERALL IS BETTER THIS EVENING. PLAN IS TO GIVE PATIENT HIS NEXT DOSE OF A BETA GEORGE TOMORROW MORNING.
--- NOTE | 2019-07-25 21:24 | NUR ---
0730: CALL LIGHT ON. pt REQUESTED WATER, PROVIDED. DISCUSSED HEART CONDITION AND MEDICATIONS. DISCUSSED MEDICATION SIDE EFFECTS AT LENGTH. pt REPORTED HIS QUALITY OF LIFE WAS DETERMINED BY "GOING TO THE [place] AND GOING ON DRIVES. IF I LOSE MY FREEDOM I'LL ." STATED "I UNDERSTAND I'M GOING TO SOME DAY. IF I DROP AT THE [place] AT LEAST I'LL HAPPY." pt REQUESTED THAT HE GET GENERIC MEDICATIONS "I CAN'T AFFORD TO PAY $200 FOR A FEW PILLS LIKE LAST TIME." MEDICATIONS GIVEN (SEE MAR). TITRATED TO ROOM AIR, SATS 93%. ASSESSMENT DONE. DR NOVA VISITED WITH pt, ANSWERED SOME QUESTIONS. OKAY FOR pt TO AMBULATE. pt STOOD FOR A FEW MINUTES AT BEDSIDE. DENIES LIGHTHEADEDNESS, RHYTHM AND RATE DID NOT CHANGE SIGNIFICANTLY. MOVED pt TO TELEMETRY UNIT #7. pt UP TO VOID, STATED "I FEEL JUST FINE" ASKED THAT HE NOTIFY STAFF PRIOR TO AMBULATING. pt AGREED. PROVIDED MORE WATER. ANOTHER MEDICATION GIVEN (SEE MAR). NO FURTHER REQUESTS AT THIS TIME. CALL LIGHT WITHIN REACH.
--- NOTE | 2019-07-25 22:17 | NUR ---
CALL LIGHT ON. EMPTIED URINAL NO FURTHER REQUESTS AT THIS TIME. CALL LIGHT WITHIIN REACH.
--- NOTE | 2019-07-25 23:17 | NUR ---
CALL LIGHT ON. KEEGAN POSEY IN ROOM URINAL EMPTIED. pt REPORTED BEING HUNGRY, FOOD TO BE PROVIDED. CALL LIGHT WITHIN REACH.
--- NOTE | 2019-07-26 00:10 | NUR ---
pt AMBULATED IN THE [facility], INDEPENDENT WITH FWW. DENIES BEING LIGHTHEADED OR DIZZY. ASSESSMENT DONE. pt READY FOR BED, O2 AT 4L AVAILABLE. NO FURTHER REQUESTS AT THIS TIME. CALL LIGHT WITHIN REACH.
--- NOTE | 2019-07-26 01:20 | NUR ---
ROUNDED ON pt. RESTING IN BED, EYES CLOSED, RESPIRATIONS REGULAR AND UNLABORED. CALL LIGHT WITHIN REACH.
--- NOTE | 2019-07-26 03:00 | NUR ---
ROUNDED ON pt. RESTING WITH EYES CLOSED, RESPIRATIONS REGULAR AND UNLABORED. CALL LIGHT WITHIN REACH.
--- NOTE | 2019-07-26 04:14 | NUR ---
RESPONDED TO PT CALL LIGHT. EMPTIED URINAL AND PROVIDED PT WITH WARM BLANKET. NO FURTHER NEEDS AT THIS TIME.
--- NOTE | 2019-07-26 04:45 | NUR ---
TELE BATTERY REPLACED, pt DID NOT WAKE. RESPIRATIONS REGULAR AND UNLABORED. CALL LIGHT WITHIN REACH.
--- NOTE | 2019-07-26 06:24 | NUR ---
LAB INTO DRAW. VITALS AND I&O RECORDED. ASSESSMENT DONE. pt DENIES LIGHTHEADEDNESS STATED "I FEEL FINE". DROWSY. NO FURTHER REQUESTS AT THIS TIME. CALL LIGHT WITHIN REACH
--- NOTE | 2019-07-26 08:30 | NUR ---
SHIFT ASSESSMENT COMPLETED, SEE DOCUMENTATION. DENIES PAIN, DENIES DIZZINESS OR LIGHT HEADEDNESS. MORNING MEDICATIONS GIVEN. PT HAS FINISHED HIS BREAKFAST. TOOTHBRUSH AND TOOTHPASTE PROVIDED. ON TELE #7, AV PACED. URINAL EMPTIED OF 150ML URINE. CALL LIGHT WITHIN REACH, PT DENIES FURTHER REQUESTS AT THIS TIME.
--- NOTE | 2019-07-26 10:02 | NUR ---
DR. NOVA AT BEDSIDE.
--- NOTE | 2019-07-26 10:49 | NUR ---
PT AMBULATED LENGTH OF CCU HALLWAY X3 WITH FWW. BY THE LAST LAP, PT STARTED FEELING "WINDED" AND WE RETURNED TO ROOM. VITAL SIGNS STABLE, HR: 70 AT REST, 91 WHILE WALKING. BP: 124/55(68), SPO2: 98%. PT STATES THAT HE WANTS TO GO HOME BUT HAS SOME CONCERNS ABOUT FEELING DECONDITIONED. DR. NOVA UPDATED ON PT'S ACTIVITY, STATES HE WILL COME SPEAK WITH PT SOON.
--- NOTE | 2019-07-26 12:30 | NUR ---
ASSESSMENT COMPLETED, SEE DOCUMENTATION. PT REPORTS LACK OF APPETITE, REPORTS MILD STOMACH ACHE, DR. NOVA BACK IN TO SEE PT, SUPPOSITORY ORDERED. PLAN TO TRANSFER TO MED SURG TODAY.
--- NOTE | 2019-07-26 12:55 | NUR ---
PT REFUSED SUPPOSITORY AND LOVENOX. STATED "I'LL THINK ABOUT IT.." WHEN CONSIDERING THE SUPPOSITORY LATER. EDUCATION PROVIDED ABOUT MEDICATIONS.
--- NOTE | 2019-07-26 13:53 | NUR ---
PT APPEARS TO BE SLEEPING AT THIS TIME, 4L NC IN PLACE. HR: 63 PER TELE.
--- NOTE | 2019-07-26 14:50 | NUR ---
REPORT GIVEN TO KEEGAN JENNINGS. PT AND HIS BELONGINGS TRANSFERRED TO [facility].
--- NOTE | 2019-07-26 15:30 | NUR ---
Patient arrives to the unit ambulating with FWW and 1 person SBA. Oriented to room. Vital signs taken, assessment complete. Denies further needs at this time, call light within reach.
--- NOTE | 2019-07-26 17:30 | NUR ---
Patient sitting up at edge of bed with feet on ground. Dinner delivered. Patient denies needs at this time, call light within reach.
--- NOTE | 2019-07-26 18:30 | NUR ---
Patient reports feeling "cold," warm blankets provided.
--- NOTE | 2019-07-26 19:54 | NUR ---
APPLIANCE SERVICER ROUNDING NOTE. PT SITTING ON THE TOILTET IN THE BATHROOM, STATES HE WOULD LIKE MORE TIME. AGREES TO USE THE CALL LIGHT WHEN FINISHED, CALL LIGHT IN REACH. WHITE BOARD UPDATED.
--- NOTE | 2019-07-26 20:05 | NUR ---
PATIENT WAS ON THE PHONE NOT WANTING TO BE DISTURBED AT REPORT TIME AND IS NOW CALL FOR A SUPPOSITORY AND COMPLAINING THE ROOM IS TOO COLD EVEN THOUGH HE HAS BEEN GIVEN MULTIPLE WARM BLANKETS WHICH HE WON'T KEEP ON AND THE HEAT IS TURNED ALL THE WAY UP IN HIS ROOM. CALL LIGHT IN REACH. GOING TO DISCUSS SUPPOSITORY ADMINISTRATION.
--- NOTE | 2019-07-26 20:37 | NUR ---
CAME IN AND EDUCATED PATIENT ON ALL THE MEDS HE IS GETTING AND FOR NOW HE IS NOT GOING TO TAKE THE SUPPOSITORY, BECAUSE HE HAS HAD ONE SMALL BM FINALLY AND THINKS HE IS GOING TO GO AGAIN AND IS CURRENTLY IN THE BATHROOM.
--- NOTE | 2019-07-26 20:50 | NUR ---
Pt used call light to go back to bed from the restroom. He did not result in a BM, KEEGAN Spann in room with pt. Pt needed nothing from me at this time.
--- NOTE | 2019-07-26 21:15 | NUR ---
CALLED ABOUT PATIENT'S CONCERNS WITH HIS CARDIAC MEDICATIONS. SAID THAT ALL ORDERS FOR HIS CARDIAC MEDS ARE COMING FROM HIS CERAMIC COATER IN THE [facility] AND THESE ARE LODING DOSES NOT PERMENANT DOSES. PATIENT DECIDED HE WILL TAKE ALL HIS MEDS EXCEPT DOES NOT FEEL HE NEEDS THE SUPPOSITORY RIGHT NOW.
--- NOTE | 2019-07-26 22:44 | NUR ---
PATIENT RESTING ON HIS RIGHT SIDE. NO NEEDS AT THIS TIME. CALL LIGHT IN REACH.
--- NOTE | 2019-07-27 01:20 | NUR ---
PATIENT CAN'T SLEEP AND FEELS A LITTLE RESTLESS. TELE LEADS FIXED SINCE HE WAS AWAKE, PATIENT FEELING OK EXCEPT A LITTLE TIRED, PATIENT JUST WANTED TO TALK A LITTLE AND ASK SOME QUESTIONS. PATIENT JUST RELAXING NOW. SAYS HE DOESN'T USUALLY GO TO SLEEP UNTIL ABOUT 3AM.
--- NOTE | 2019-07-27 03:24 | NUR ---
PT REPORTS TRANSIENT CHEST PAIN WHEN TURNING THAT RESOLVED WITHIN SECONDS. VS COMPLETED. NO CHANGES ON TELEMETRY. HR RATE AT PT BASELINE. NO SHORTNESS OF BREATH, DIZZINESS, OR NAUSEA. CCU NURSE AND PRIMARY NURSE NOTIFIED. PT INSTRUCTED TO CALL IF HE HAS ANOTHER EPISODE. WILL CONTINUE TO MONITOR.
--- NOTE | 2019-07-27 03:29 | NUR ---
PT REQUESTED ICECREAM. HE WAS PLEASED, NOTHING FURTHER WAS NEEDED AT THIS TIME.
--- NOTE | 2019-07-27 04:07 | NUR ---
PATIENT GOT UP TO THE BATHROOM WITH FWW AND 1PSBA AND HAD AN EXTRA LARGE BROWN BM AND VOIDED. PATIENT'S ORTHOSTATICS WERE DONE AFTER THIS AND ARE RECORDED IN THE CHART. PATIENT HAD NO DIZZINESS OR LIGHT HEADEDNESS WHILE THIS WAS DONE. PATIENT BACK IN BED AND CALL LIGHT IN REACH.
--- NOTE | 2019-07-27 05:03 | NUR ---
PATIENT HAS ONLY HAD CAT NAPS TONIGHT, HAD A BREIF EPISODE OF CHEST PAIN WHICH SUBSIDED QUICKLY, VS WERE STABLE. PATIENT WAS NOT ORTHOSTATIC EITHER WHEN THOSE VITALS WERE DONE. PATIENT BEEN VOIDING PER URINAL AND HAD 2 BMS THIS SHIFT. RESTING QUIETLY AT THIS TIME.
--- NOTE | 2019-07-27 07:30 | NUR ---
Report received, orders acknowledged. Patient sleeping in bed, respirations even and unlabored. Call light within reach.
--- NOTE | 2019-07-27 09:15 | NUR ---
Dr. Patel in room to discuss POC with patient
[2019-07-27] MEDS ORDERED: METOPROLOL TART25 MG PO (09:41)
[2019-07-27] MEDS ORDERED: AMIODARONE HCL200 MG PO (09:41)
--- NOTE | 2019-07-27 10:02 | NUR ---
Patient sitting up at bedside. AM medications given, assessment complete. PT in room working with patient, ambulated with FWW and 1 person SBA to PT room. Discussed POC with patient.
--- NOTE | 2019-07-27 12:00 | NUR ---
Patient reports feeling "lightheaded and fuzzy" after returning to bed from the toilet. Patient had "strained trying to have a bowel movement." Vital signs taken: BP of 105/74 (79), pulse of 74, SpO2 of 93% with even respirations of 16, and a temp of 98.0 degrees. Patient laying in bed with head elevated. Charge nurse and MD notified of patient status. Orders acknowledged. Patient educated on importance of not bearing down while having a bowel movement. Patient reports feeling "less fuzzy and lightheaded" after laying in bed for several moments. Will continue to monitor.
--- NOTE | 2019-07-27 13:55 | NUR ---
Discharge instructions given. Questions and concerns answered as best as possible. Patient verbalizes understanding of follow up appointment. All personal belongings collected. Patient leaves unit via wheelchair with family and nursing staff.
== END 2019-07-27 13:55 | disposition home or self-care (01) | DRG 315 ==
LOC: ED 15:43 → CCU 15:44 → MS 07-26 14:53
PROVIDERS: ADMIT Student in an Organized Health Care Education/Training Program
DX: R00.8 Other abnormalities of heart beat (principal); I50.22 Chronic systolic (congestive) heart failure; I11.0 Hypertensive heart disease with heart failure; E11.9 Type 2 diabetes mellitus without complications; G47.33 Obstructive sleep apnea (adult) (pediatric); E03.9 Hypothyroidism, unspecified; I25.10 Atherosclerotic heart disease of native coronary artery without angina pectoris; Z95.810 Presence of automatic (implantable) cardiac defibrillator; Z88.5 Allergy status to narcotic agent; Z88.8 Allergy status to other drugs, medicaments and biological substances; Z95.820 Peripheral vascular angioplasty status with implants and grafts; Z79.84 Long term (current) use of oral hypoglycemic drugs; Z79.02 Long term (current) use of antithrombotics/antiplatelets; Z79.82 Long term (current) use of aspirin; Z79.899 Other long term (current) drug therapy
CPT/HCPCS: 36415; 71045; 80048; 80053; 81001; 83735; 83880; 84484; 85025; 93005; 93010; 93306; 94760; 96360; 97161; 99285-25; J1650; J1815; J2405; J7040; J7121

== ENCOUNTER 2019-09-02 14:24 | Emergency (ER) | payer MEDICARE, OTHER ==
[~2019-09-02] VITALS: Ht 177.8 cm; Wt 107.0 kg
--- OUTSIDE RECORDS SUMMARY | ~2019-09-02 | XMS | Encounter Summary ---
Demographics + + + | Address | [address] | | | [place] [address] | + + + | Home Phone | | + + + | Preferred Language | Unknown | + + + | Marital Status | | + + + | Anglican Affiliation | Unknown | + + + | Race | Unknown | + + + | Ethnic Group | Unknown | + + + Author + + + | Author | [facility] | | | and [place] | + + + | Organization | [facility] | | | and [...] Team Providers + +------+ + | Care Substance Abuse Nurse Name | Role | Phone | + +------+ + | Carla Murphy | PCP | | | PA-C | | | + +------+ + Reason for Visit + + + | Reason | Comments | + + + | Follow-up, Office | 6 week/ Echo/Stress test | | Visit | | + + + Encounter Details +--------+---------+ + + + | Date | Type | Department | Care Team | Description | +--------+---------+ + + + | 09/01/ | Office | [facility] | Poppy Rodriguez | Non-ischemic | | 2020 | Visit | CARDIOLOGY [place] | [address] | cardiomyopathy (HCC) | | | | [address] | [address] | (Primary Dx); | | | | [address] | [place] [address] | Cardiac | | | | [place] | [phone] | resynchronization | | | | [id number] | | therapy | | | | [phone] | | defibrillator | | | | | | (CLINIC RECEPTIONIST-D) in place; | | | | | | Non-sustained | | | | | | ventricular | | | | | | tachycardia (HCC); | | | | | | Orthostatic | | | | | | hypotension; | | | | | | Essential | | | | | | hypertension; | | | | | | Syncope and | | | | | | collapse; Dyspnea on | | | | | | exertion; Pulmonary | | | | | | emphysema, | | | | | | unspecified | | | | | | emphysema type | | | | | | (HCC); MOISÉS | | | | | | (obstructive sleep | | | | | | apnea); Encounter | | | | | | for monitoring | | | | | | diuretic therapy; | | | | | | Exposure to | | | | | | secondhand smoke; | | | | | | Chronic restrictive | | | | | | lung disease; | | | | | | History of abdominal | | | | | | aortic aneurysm | | | | | | repair; History of | | | | | | TIA (transient | | | | | | ischemic attack); | | | | | | Abnormal nuclear | | | | | | stress test; History | | | | | | of ventricular | | | | | | tachycardia | +--------+---------+ + + + Social History + +-------+ +--------+------+ | Tobacco Use | Types | Packs/Day | Years | Date | | | | | Used | | + +-------+ +--------+------+ | Never Smoker | | | | | + +-------+ +--------+------+ + +---+---+---+ | Smokeless Tobacco: | | | | | Never Used | | | | + +---+---+---+ + + | Comments: has second hand smoke exposure | + + + + +---------+ + | Alcohol Use | Drinks/Week | oz/Week | Comments | + + +---------+ + | No | 0 Standard drinks | 0.0 | Alcoholic | | | or equivalent | | Drinks/day: very | | | | | rare | + + +---------+ + + + + | Sex Assigned at [...] + + documented as of this encounter Last Filed Vital Signs + + + + + | Vital Sign | Reading | Time Taken | Comments | + + + + + | Blood Pressure | 82/44 | 09/01/2019 2:03 PM | | | | | PST | | + + + + + | Pulse | 60 | 09/01/2019 2:03 PM | | | | | PST | | + + + + + | Temperature | - | - | | + + + + + | Respiratory Rate | - | - | | + + + + + | Oxygen Saturation | 93% | 09/01/2019 2:03 PM | | | | | PST | | + + + + + | Inhaled Oxygen | - | - | | | Concentration | | | | + + + + + | Weight | 108 kg (238 lb 3.2 | 09/01/2019 2:03 PM | | | | oz) | PST | | + + + + + | Height | 177.8 cm (5' 10") | 09/01/2019 2:03 PM | | | | | PST | | + + + + + | Body Mass Index | 34.18 | 09/01/2019 2:03 PM | | | | | PST | | + + + + + documented in this encounter Patient Instructions Patient Instructions Poppy Rodriguez, GÓMEZ - 09/01/2019 2:00 PM PST I have ordered you angiogram to be performed on Sep [address] Wills, and need to arrive at 9 a,m, do not take your metformin for 24 hrs before or 48 hrs afterwards , and nothing to eat or drink from Midnight on Either stay in [place] overnight the night before, or start getting up up earlier by one h our each day the week before procedure as we discussed. Your Echo done in July showed improved pumping function of 40 % but your heart wall no t moving well, and also not moving well on your stress test, which was abnormal and why I am ordering you an angiogram, which Dr. Foley also thinks you need to have done I made No changes to medications but will let you know what Mary and Dr. Chavez say about t rying lower dose of Amidarone, and will order for you , and call and let you know as well See me back in 7-10 days after angiogram to follow up Coronary Angiography The catheter can be placed into the groin, arm, or wrist. Angiography is a special type of X-ray that lets your doctor view your coronary arteries to see if the blood vessels to your heart are narrowed or blocked. Before the procedure Tell your doctor what medicines you take and any allergies you may have. Tell your doctor if you've had a reaction to contrast dye or have had any kidney problem s. Don t eat or drink anything for at least 6 to 8 hours before the procedure. You will l ikely be told not to have anything after midnight, the night before the procedure. A nurse will place an IV catheter in your vein to give fluids, and medicine to relieve p ain and help you feel less anxious. He or she will clean your skin and, if necessary, shave the area where the catheter will be inserted. During the procedure Your doctor will place a long, thin tube called a catheter inside an artery in your groi n or arm and guide it into your heart. He or she will inject a contrast dye through the catheter into your blood vessels or hea rt chambers. X-rays are taken to show images of the inside of your heart and coronary arteries. After the procedure Your doctor or nurse will tell you how long to lie down and keep the insertion site stil l. If the insertion site was in your groin, you may need to lie down with your leg still fo r several hours. If bleeding occurs, a nurse will apply pressure to the area to control it. A nurse will check your blood pressure and the insertion site frequently to make sure yo u remain stable after the procedure. You may be asked to drink fluid to help flush the contrast liquid out of your system. Have someone drive you home from the hospital. If your doctor uses angioplasty to treat a blocked artery, you will stay the night in [facility]. It s normal to find a small bruise or lump at the insertion site. The lump may be the collagen plug or stitch that you feel, or a small bruise. These common side effects should d isappear within a few weeks. When to call your healthcare provider Contact your healthcare provider right away if you have any of these: Chest pain Pain, swelling, redness, bleeding, or drainage at the insertion site Severe pain, coldness, or a bluish color in the leg or arm that held the catheter Fever over 100.4F (38C) Date Last Reviewed: 01/19/201619998725-4432 [employer]. [address] [place] [address]. All righ ts reserved. This information is not intended as a substitute for professional medical care. Always follow your healthcare professional's instructions. documented in this encounter Progress Notes Poppy Rodriguez FNP - 09/01/2019 3:00 PM PSTFormatting of this note might be differe nt from the original. Date of visit: 09/01/2019 Primary Care Physician: Carla Murphy PA-C CHIEF COMPLAINT: Chief Complaint Patient presents with Follow-up, Office Visit 6 week/ Echo/Stress test HISTORY OF PRESENT ILLNESS: Mr. Jared Abraham , who goes by Lizbeth, is a 74 year old man who is here today to foll ow up on his stress test and Echo results. He Is a patient of Dr. Foley, who is his primary qual research manager,and last seen by him 2018. He has an AICD with CLINIC RECEPTIONIST-D for history of ventricular tachycardia, allowed by electrophysiol ogist Dr. Constantin Chavez, as well as electrophysiology nurse practitioner, Mary Tipton, seen by her on July 30, 2019 and she had ordered a stress test for concerns of increased ischemic h eart disease. She as been working with him on amiodarone for recurrent VT, and also metoprolol tartrate for heart rate control. He has been extremely challenging due to his reports of multiple m edication intolerance . Dr. Chavez have recommended total abstinence from caffeine and alcohol, and to stay well-hyd rated, and use compression socks. Mary's last instructions were to continue amiodarone taper started on July 30 with 40 0 mg twice a day for 1 week and then 400 mg daily for 1 week and then 200 mg daily for suppr ession of NSVT. He called on August 07 saying he could not tolerate amiodarone,though has only been o n it for one week , and did not get to less than 400 mg daily. She advised him to increase metoprolol tartrate to 12.5 mg in the morning and 6.25 mg in the evening, and advised him o f high risk of VT with stopping Amiodarone Today, I reviewed all previous documentation available to me in electronic medical michael [address] and from external sources. He has a history of Ischemic cardiomyopathy with angiogram performed in October 2008 showin g normal coronaries, history of ventricular tachycardia with insertion of CLINIC RECEPTIONIST-D in January 2010 and most recent generator change in April 2015, hypertension, hyperlipidemia, history o f abdominal aortic aneurysm repair in September 2014, TIA 03/2018, COPD, and obstructive sleep apnea and intolerant of CPAP, and uses nocturnal oxygen. He has previously been intolerant of spironolactone, and lisinopril, and carvedilol, Digo sonja,and Amiodarone, Entresto, Bisoprolol. Mostly due to hypotension. His current and previous testing and procedures are detailed below. I saw him last on July 21, 2019 when I had started him on bisoprolol as recommended by Dr. Chavez for increased ventricular rate and episodes of VT. Unfortunately he ended up in the emergency room and hospitalized from July 23 until July 25 at [facility] for li ghtheadedness and presyncope, with hypotension. He was taken off the bisoprolol for 48 jose rs but then developed significant multiple PVC's, and noted that the desk monitor with heart rate in the 80's when he had a pulse of 30-60 due to frequency of Ventricular Ectopy . Dr. Chavez put him back on metoprolol which was started at 12.5 mg twice daily and then w as to increase to 25 mg twice daily ,and Dr. Foley had also recommended stopping his Lasix du e to dehydration. He followed up with Mary Tipton on July 30 as discussed, and started on metoprolol ta rtrate, and amiodarone taper though reportedly did not tolerate amiodarone, though reported blood pressure when he called 08/07/2019 was SBP 100-110, with heart rate 75-95 daily, whic h is good for him He had previously been seen in May in the emergency room for weakness and nausea and pr esyncope with low blood pressures Today he reports he has remained off Amiodarone , and is taking 12.5 mg Metoprolol an d 6.25 mg at night and tolerating , though blood pressure low today, he denies any dizziness or lightheadedness, and reports it has been in 100-112 mmHg systolic at home. He reports his weight has been stable, with only mild pedal edema since off lasix. He cont inues to have dyspnea with exertion, and ambulates with walker. He also continues to have o ngoing palpitations, and mild transient orthostatic hypotension when first gets up, but less frequent lately. He denies any chest pain or syncope, or any signs or symptoms of stroke or TIA. He notices that he runs out of energy quickly, and has poor balance, and uses a walker for ambulation. He reports he has been compliant with sodium and fluid restriction and drinking about 30- 40 ounces of fluid daily. He has very erratic sleep habits, as [place] at around m idnight, and will stay to 2 or 3 in the morning, and then go to bed. He continues to go to bed between 2-4 am, so "morning " dose of medications is around 130 0h , which is when he usually gets up. His sleep apnea continues not to be corrected, and he is not interested in pursuing CPAP a ny further. He reports his last sleep study and attempted CPAP was in 2016, and he did try desensitizing exercises by wearing CPAP in the day to help get over his claustrophobia, but he was never successful. He reports he has had some relief wearing oxygen at night, but sti ll wakes up gasping and short of breath on occasion. He still drinks diet Pepsi but rarely. He reports he drinks no caffeine, and also carol es any history of smoking, and denies any use of alcohol, or recreational or illicit drugs. He was diagnosed with type II diabetes last year 09/2017,, and has made considerable effo rt to improve his diet, lose weight, and his A1c and he has maintained a weight loss of 40 pounds as he previously weighed 269 pounds in August 2017. He brought his medication bottles to the clinic today, and personally reviewed by me. I again had a long discussion with him about his increased risk of with VT , and amanda t though he felt tired on amiodarone, his vitals signs were good, and that side effects decr ease with time ,and lower dose of Amiodarone, as he only completed first week of taper. He is wondering if could try Amiodarone 100 mg BID, or 200 mg daily. REVIEW OF SYSTEMS: Negative except for pertinent items noted in HPI. Constitutional: Decreased activity tolerance. Denies or unexplained weight loss. Appetit e is good. Intentional weight loss of over 40 pounds, previously weighed 269 pounds 08/2017 , and weight stable since last seen. Denies night sweats fevers or chills HENT: Denies nosebleeds. Denies, hearing problems, but mild hearing deficit. Denies dyspha carl Eyes: Denies visual disturbance or double vision. Respiratory/Sleep::Restrictive lung disease .elevated left hemidiaphragm and had a sniff te st which did not show paralysis Denies cough and shortness of breath. Denies hemoptysis or excessive sputum production. Positive for sleep apnea, intolerant to CPAP, uses nocturnal oxygen.Denies orthopnea, occasional PND. Poor sleep habits: [place]es [place] [facility] [employer] from midn ight-3 AM, usually goes to bed at 4 AM, and gets up at 1 PM. Cardiovascular: mild pedal edema, palpitations 1-2 times per day Denies chest pain.Denies history of rheumatic fever. Denies claudication . Gastrointestinal: Denies GERD. Denies nausea, vomiting, abdominal pain and blood in stool . Genitourinary: Denies hematuria. Musculoskeletal: reports left hip pain, poor balance uses cane /walker Denies myalgias, b ack pain Skin: Denies color change. Denies rash or lesions Neurological: hx TIA 04/15/2018 [facility]: moderate stenosis of left vertebral artery at V1 and V2 segments, dysarthria, residual speech and swallowing deficits. Denies history of stroke..D enies history of seizures. Denies dizziness, syncope and numbness. Hematological/Oncology . Bruises easily. Denies bleeding Denies history of cancer Endocrine: Type II diabetes, on oral agents. Hypothyroidism . Denies excessive thirst or h jaden. Psychiatric/Behavioral: denies any history of depression or anxiety or other psychiatric il lness. Vaccines: Current on flu vaccine-no . Current on pneumonia vaccine- no .( Refuses all vacc derrick as believes it makes him ill ) Habits/Social : Denies history of smoking. Denies EtOH use. . Denies recreational or ill icit drug use.Drinking About 30- 40 0z of water, seldom drinks soda now, No coffee or tea. Exercises rarely due to poor activity tolerance. Lives in [place]. , lost his fiancee in 2001 when she in a car crash after being hit by distracted bellman driver on a cell phone Outpatient Medications Prior to Visit Medication Sig Dispense Refill amiodarone (PACERONE) 200 mg tablet Take 200 mg by mouth Daily. aspirin 81 mg EC tablet Take 81 mg by mouth Daily. atorvaSTATin (LIPITOR) 20 mg tablet Take 20 mg by mouth nightly. cholecalciferol (CHOLECALCIFEROL) 5000 units TABS Take 5,000 Int'l Units by mouth daily . clopidogrel (PLAVIX) 75 mg tablet Take 75 mg by mouth daily. levothyroxine (SYNTHROID) 88 mcg tablet Take one tablet daily loratadine (CLARITIN) 10 mg tablet Take 10 mg by mouth daily. MAGNESIUM PO every 48 hours. metFORMIN (GLUCOPHAGE-XR) 500 mg 24 hr tablet Take 1 tablet by mouth daily. metoprolol tartrate (LOPRESSOR) 25 mg tablet Take 25 mg by mouth 2 times daily. Take on e half tablet 12.5 mg and take one quarter 6.25 mg at night No facility-administered medications prior to visit. PHYSICAL EXAM: Wt Readings from Last 3 Encounters: 09/01/19 108 kg (238 lb 3.2 oz) 07/30/19 108.1 kg (238 lb 6.4 oz) 07/21/19 108.5 kg (239 lb 4.8 oz) Temp Readings from Last 3 Encounters: No data found for Temp BP Readings from Last 3 Encounters: 09/01/19 (!) 82/44 07/30/19 100/60 07/21/19 98/52 Pulse Readings from Last 3 Encounters: 09/01/19 60 07/30/19 73 07/21/19 108 Vital signs: 10/28/2018: WT: 239 LB: BP: 98/58. Pulse 90 Vital signs: 06/09/2019: WT: 237 LB. BP: 106/60. Pulse 84. Vital signs: 08/18/2018: WT 230 LB. BP: 109/60: Pulse 71 GENERAL: Well developed, well nourished, in no distress. Appears approximately stated age . HEENT: Normocephalic, atraumatic. Some difficulties with speech EYES: PERRL, EOM normal. MOUTH: Oral mucosae moist, dentition adequate, no lesions noted NECK: No JVD, lymphadenopathy, thyromegaly, bruits. Carotid pulses are 2+ bilaterally LUNGS/CHEST: Clear bilaterally, with no rales, rhonchi or wheezing noted, respirations unl abored HEART: CLINIC RECEPTIONIST-D site to CHIKA, stable to palpation, well healed. Nondisplaced PMI, regular rate and rhythm all extrasystole , S1, S2 normal. No murmurs, rubs or gallops noted. ABDOMEN: Soft, obese,nontender, no organomegaly, masses or bruits. Bowel sounds are norm al in all 4 quadrants. The abdominal aortic pulsation is not palpable. EXTREMITIES: 1+ pedal edema bilaterally, worse on right foot. Radial pulses 2+ bilateral ly. Femoral pulses are 2+ bilaterally without bruits. DP and PT pulses are 2+ bilaterally. No clubbing. SKIN: Warm and dry, capillary refill is normal, no lesions. NEUROLOGIC: Awake, alert and oriented x 3. No focal motor or sensory deficits. PSYCHIATRIC: Appropriate, affect appears normal DATA: Blood tests: Lab Results Component Value Date WBC 10.67 08/18/2018 RBC 4.27 08/18/2018 HGB 13.0 (L) 08/18/2018 Lab Results Component Value Date NA 141 08/18/2018 K 3.9 08/18/2018 CL 101 08/18/2018 CO2 31 08/18/2018 ANIONGAP 13 08/18/2018 GLUF 136 (H) 08/18/2018 BUN 16 08/18/2018 EGFR >60 08/18/2018 Lab Results Component Value Date CHOL 76 08/18/2018 TRIG 102 08/18/2018 GLUF 136 (H) 08/18/2018 Lab Results Component Value Date BNP 113 (H) 01/21/2017 TSH 2.040 08/18/2018 No results found for: TOTEPI CARDIAC PROCEDURES/IMAGING Last angiogram: 11/05/2008: Normal coronaries, consistent with nonischemic cardiomyopathy E F 15-20 percent.. Stress test: 08/29/2019 ([facility]): SPECT study showing large fixed apical defect and a small f ixed basal lateral defect, mild RV uptake of tracer. EF 18%. Potentially high risk study. Ordered dizziness nausea and shortness of breath during the stress test. Heart rate 74 bpm, baseline blood pressure 117/83. Peak heart rate 100 bpm, peak blood pressure 117/83. Base line EKG shows ventricular paced rhythm , EKG showed paced rhythm with PVC's. stress EKG sam wed a paced rhythm with PVC's VASCULAR TESTING AND PROCEDURES Carotid ultrasound 08/18/2018: Right ICA: Grade 2,<50%. Intimal common carotid artery thi ckening and plaque in the bulb. Left ICA: Grade 2, l<50%. Intimal common carotid artery thi ckening and minimal plaque at the bulb. Vertebral arteries:normal antegrade flow and veloci ties bilaterally Admitted 04/15/2018 TIA with moderate stenosis of left vertebral artery at V1 and V2 segmen ts, dysarthria, CTA head and neck contrast 04/15/2018: No intracranial proximal arterial stenosis/occlusion , aneurysm, or AV malformation. Distal left vertebral artery is small and essentially termi nates in left PICA. Distal segment are difficult to evaluate small distal branch high-grade stenosis or occlusion cannot be excluded. No intracranial saccular aneurysms are identifie d CLINIC RECEPTIONIST-D Implant : MDT CLINIC RECEPTIONIST-D by Dr. Martinez. in January 2010., Generator change by Dr. Delarosa in 20 15 viva xt CLINIC RECEPTIONIST D MDT number [id number].Patient has a 5076 atrial lead Medtronic. 6947 Sprin t Quattro Medtronic RV lead and 4195 Starfix Medtronic LV lead. All leads were implanted in January 2010. Last CLINIC RECEPTIONIST-D interrogation : 07/30/2019: ( Mary Tipton): Battery longeviity 3.6 yrs. Bi V pace d 99.6%. RA paced 32.9 %. DDR 60-140 Bpm. Events: none but cleared on 07/23/[address] [facility] CLINIC RECEPTIONIST-D interrogation: 06/02/2019: Battery longevity( 3 yrs, 11 months ) .TOWER ERECTOR 2.73 V RA pac ing 14% , RV pacing 95% , BiV pacing 99.6% Lead impedance WNL. Settings DDDR 60-140. Events : Per Dr. Chavez to 2-3 episodes of nonsustained VT T actually appeared to be rapid atrial ar rhythmia with very good ventricular conduction up to 200 bpm or more. 3 VT-NS episodes, 1-3 seconds in duration, ventricular rate 199-214 bpm. Which is <0.1%. Lead impedance and thr eshold values acceptable. Congestive heart failure parameters and trends stable. CLINIC RECEPTIONIST-D interrogation: 09/23/2018: Battery longevity( 3.7-5.9y) 4.8 years/2.97V.TOWER ERECTOR 2.73 V R A pacing 30.79 percent, RV pacing 99.04 percent, CLINIC RECEPTIONIST pacing 98.92 percent. Lead impedance W NL. Settings DDDR 60-140. Increased fluid noted as well in February 2018, and August 30-2018 Patient activity 1.3 hours per day. Events since 09/04/2018: Time in 18/AF less than 0.1 hours per day, <0.1 percent . no VT in 167-1 88 bpm range. No VT-and asked greater amanda n 4 beats, greater than 188 bpm range. No supraventricular tachycardia. No ventricular ove rsensing. No pace or shock terminated episode. No shocks. No aborted charges. CLINIC RECEPTIONIST-D interrogation: 09/04/2018: Battery longevity 4.9 years/2.98 V ( TOWER ERECTOR 2.73V) . Lead impe ndence WNL. Thresholds WNL. RA Pacing:<46.3% RV Pacin.6% BiV Pacin.9% ( VSR pa ce: <0.1%) Events. Mode switches:<0.1% of time in AT/AF.VT/VF Detections: during Dece admission, 1 episode of sustained ventricular tachycardia lasting for 27 seconds, no therapy delivered. Device settings are ventricular fibrillation zone of 188, treated wit h 35 J shocks 6, VT zone monitored, no therapy CHF: Congestive heart failure parameters an dtrends have been reviewed andare stable- note 10/07/2018: HF nurse notified he gained 3 pounds over a 24-hour period CLINIC RECEPTIONIST-D Quick Look: 08/17/2018: ( [facility] admission for syncope) : Longevity of 5 years. Sett ings 60-140 18/AF burden <0.1 hours/day, <0.1 percent. Patient activity 1.2 hours per day. EGM's. Dr. Roldan noted settings were ventricular fibrillation zone of 188, treated with 35 J shocks 6, VT zone monitored, no therapy. One episode of sustained ventricular tachy cardia lasting for 27 seconds, no therapy delivered. ECHO Echo: 07/25/2019: [facility]: Mildly dilated LV, mild LVH, EF 40%, basal to mid inferior and infer ior lateral wall hypokinesis. RV normal in size and systolic function. Mild MARIANGEL, normal LA . Sinus of Valsalva through ascending aorta normal caliber. IVC WNL. No pericardial or p leural effusion. Mitral valve normal without stenosis, physiologic MR aortic valve not well visualized no evidence of stenosis or regurgitation. Tricuspid valve mild TR with velocity 2.3 m/s with estimated PASP 22 mmHg. No pulmonary hypertension, RVSP 30 mmHg. Pulmonic va lve not well visualized, mild to moderate NJ. Echo: 09/25/2017 ([facility]): Technically adequate study. EF 30-35 percent. Mild LV dilation. Mi ld septal hypertrophy, septal thickness 13-50 mm. Paradoxical septal motion consistent with paced rhythm. RV normal in size and function. Mild biatrial enlargement. Aortic valve tr ileaflet, trace AI, no aortic stenosis. Normal mitral valve, trace MR. Normal tricuspid va lve, trace TR. Normal pulmonic valve, trace PI. No pericardial or pleural effusion. IVC W NL, normal CVP. Aortic root, ascending aorta, and aortic arch are normal Echo: 05/17/2015: Technically adequate study. EF 35-40 percent. LV normal in size and wall thickness. RV normal in size with mildly impaired systolic function. Mild left atrial enl argement, RA not well visualized. Aortic valve trileaflet, without regurgitation or stenosi s. Mitral valve normal, no MR, mild MAC. Tricuspid valve normal, trace TR. No pericardial effusion. NON CARDIAC TESTING: PFT: 10/19/2015:( [facility]'): Spirometry: Prior to administration of inhaled bronchodilator, FVC was moderately reduced at 2.34 L or 52% of predicted. FEV1 was moderately reduced at 1.6 8 L or 48% of predicted. FEV1/FVC ratio was normal at 72%. After administration of inhaled b ronchodilator, FVC increased by 7 % to 2.50 L or 55% of predicted. FEV1 increased by 9 % to 1.82 L or 52% of predicted. FEV1/FVC ratio was normal at 73%.Diffusion. Diffusion capacity w as mildly reduced at 21.2 mL/mmHg per minute or 65% of predicted and was not corrected for a measured hemoglobin.NOTE: Lung volumes were not obtained due to claustrophobia. Diffusion c apacity was obtained by single breath method and was not corrected for a measured hemoglobin . Impression: Spirometry consistent with moderate restrictive physiology, no significant br onchodilator response. Diffusion capacity mildly reduced and is not corrected for measured hemoglobin EKG/EVENT MONITOR 30-day event monitor: 06/18/2019: Underlying rhythm sinus rhythm, average 82 bpm, range 49- 128. Frequent ventricular pacing, periods of wide-complex tachycardia up to 175bpm and up t o 14 beats in length.. Frequent PVC's. Rare PACs. Triggered events correlate with isolate d ventricular ectopy. EK01/21/2017: Dual-chamber atrially sensing pacemaker, PVC's. Rate 87 bpm, QRS 160 ms, QT C 524 ms and tracing personally reviewed by me EK08/18/2018: Sinus rhythm with frequent AV paced complexes him a PVC's. Rate 72 bpm, NJ 112 ms, QRS 150 ms, QTC 494 ms tracing personally reviewed by me EK10/10/2018: Atrially paced rhythm, occasional PVC. Rate 84 bpm, NJ 178 ms, QRS 174 ms, QTC 531 ms him a tracing personally reviewed by me, and improved rate and less frequent PVC 's and EKG performed 07/2018 EK01/28/2019: Atrially sensed by V paced rhythm. Rate 77 bpm, NJ 162 ms, QRS 184 ms, QTC 506 ms, tracing personally reviewed by me. EKG 07/21/2019:Atrially sensed by V paced rhythm With PVC's, right bundle branch block, old septal infarct. Rate 104 bpm, NJ 154 ms, QRS 174 ms, QTC 539 mL, Tracing personally reviewe d by me EK07/23/2019: ([facility]). Atrially sensed V paced rhythm with frequent PVC's. Rate 87 bpm , NJ 166 ms, QRS 178 ms, QTC 555 ms, tracing personally reviewed by me EK09/01/2019 Atrial sensed V paced rhythm right bundle branch block. Occasional PVC's. Rate 76 bpm, NJ 124 ms, QRS 184 ms, QTC 524 ms tracing personally reviewed by il LABS labs: 08/17/2018: CMP: Sodium 140, potassium 3.8, chloride 101, glucose 94, BUN 18, creati nine 0.92, AST 14, ALT 20, alk phos 62 total bilirubin 1.6, GFR 81, albumin 3.8. Troponin T <0.010. CBC: WBC 12.5, hemoglobin 14.7, hematocrit 44.1, platelets 176 read lipase 24, BNP 150, digoxin 1.01 Labs: 08/18/2018: Hemoglobin A1c 5.5 . digoxin 0.9, TSH 2.04, Lipids:( atorvastatin 20 mg) Cholesterol 76, triglycerides 102, HDL 29, LDL 27 Labs: 10/22/2018: BMP: (Lasix 20 mg daily). Sodium 142, potassium 3.9, chloride 101, glucose 188, BUN 15, creatinine 0.96, GFR 77 Labs: : 05/26/2019: [facility]: CBC: WBC 9.5, RBC 4.92, hemoglobin 14.7, hematocrit 43.5, platel ets 181. D-dimer 1170. CMP: Glucose 207, BUN 13, creatinine 0.94, GFR 79, sodium 138, pota ssium 4.2, chloride 98, calcium 9.1, magnesium 1.8, albumin 3.9, total bili 2.2, AST 15, ALT 15, alk phos 72, troponin T <0.010 Labs: 07/25/2019: CBC: WBC 0.3, hemoglobin 13.5, hematocrit 2.4, platelets 177. CMP: Glucos e 232 BUN 15 creatinine 1.07 GFR 68, sodium 141, potassium 3.9 chloride 102, anion gap 9, ma gnesium 2.1, albumin 3.8, total bili 2.1 AST 13, AL T 16, alk phos 67, troponin T <0.010 Labs: 08/18/2019: Lipids:( atorvastatin 20 mg) Cholesterol 90, triglycerides 73, HDL 31.5, LDL 44.CMP: Sodium 142, potassium 4.2, chloride 103, glucose 117, BUN 19, creatinine 0.99, AST 12, ALT 13, alk phos 60, total bili 1.9, GFR 74, albumin 3.9. Hemoglobin A1c 5.8. Thyr oid: TSH 3.87. PSA: 0.884. CBC: WBC 8.4, RBC 4.69, hemoglobin 14, hematocrit 42, platelets 160 ASSESSMENT & PLAN: Lizbeth was here today to follow-up Echo and stress test results He has problems as detailed below. His labs performed at the end of July are detailed above, and show lipids well contro lled on Atorvastatin 20 mg, and CMP normal except mildly elevated glucose of 117, diabetes w ell controlled with A1C 5.8,and normal thyroid function His stress test performed at [facility] on August 29 is detailed above and was reported as a high risk study due reduced EF of 18%, though higher on Echo at 40%, and he had a large fixe d inferoapical defect and a small fixed basal lateral defect with mild RV uptake of tracer. His Echo performed July [address] [facility] is day also detailed above and showed a n improved EF of 40% , but basal mid inferior and inferolateral comer are newly hypokinet ic, and LV was mildly dilated with mild LVH and diastolic dysfunction, RV was normal in size and function. His left atrium was normal size, but his right atrium was mildly enlarged. His aortic valve not well visualized but no stenosis or regurgitation mild TR, and physiolo gic MR, with no stenosis to any valves to moderate pulmonic regurgitation, but no pulmonary hypertension I reviewed the results of his testing in detail with him, and discussed with him that I h ad spoken to Dr. Foley prior to our clinic visit today, and he recommended strongly that he g et an angiogram to evaluate him for new ischemic disease. He is agreeable to this, and is aware he needs a ride to and from procedure, and I have in structed him to hold Metformin 24 hrs before and 48 hrs after procedure. He is scheduled for Sep 17 for 10:30 am procedure, and advised him he needed to be ther e at 9 am . I have advised him to either spend the night in [place], or spend a week getting up nicholas ier prior to the procedure, as used to getting up at 1 pm. Given his complicated history, I think he would be better with earlier procedures. His ongoing intolerance of many medications may be secondary to his very small left verte bral artery, which had contributed to his TIA in 2018, and why he is so symptomatic when he decreases his blood pressure.. I again had a long discussion with him about his increased risk of with VT , and th at though he felt tired on amiodarone, his vitals signs were good, and I discussed with him that side effects decrease with time ,and lower dose of Amiodarone, as he only completed fi rst week of taper. He is wondering if could try Amiodarone 100 mg BID, or 200 mg daily, and I have sent epic message to electrophysiology nurse practitioner, Mary Tipton , to see if she thought this was a good idea, and if he does try amiodarone again, if I should decrease his metoprolol. I advised Lizbeth that when I heard from her, that I would call him with her recommendations and send in prescriptions. For his cardiac medications, I have left his furosemide 20 mg daily as PRN, and told him to take it only if his weight is up by more than 3 pounds in 1 day, or 5 pounds in 2 days, Plavix 75 mg daily, and aspirin 81 mg daily for history of TIA with small vertebral artery a nd abdominal aortic aneurysm repair, atorvastatin 20 mg nightly for hyperlipidemia, and magn esium 500 mg every other day alternating with 250, and Metoprolol Tartrate 12.5 mg in the morning, and 6.25 mg in the evening which he has been tolerating, blood pressure low in the clinic today, as he just took his' morning' this of metoprolol at 1 PM when he got up. He has ongoing dyspnea with exertion, likely due to exacerbation of his lung disease by secondhand smoke exposure as he goes to the [employer] almost nightly. I will see him back 09/29/2019. He will follow up with Dr. Foley for primary cardiology in October. 1. Non-ischemic cardiomyopathy (HCC) 2. Cardiac resynchronization therapy defibrillator (CLINIC RECEPTIONIST-D) in place 3. Non-sustained ventricular tachycardia (HCC) 4. Orthostatic hypotension 5. Essential hypertension 6. Syncope and collapse 7. Dyspnea on exertion 8. Pulmonary emphysema, unspecified emphysema type (HCC) 9. MOISÉS (obstructive sleep apnea) 10. Encounter for monitoring diuretic therapy 11. Exposure to secondhand smoke 12. Chronic restrictive lung disease 13. History of abdominal aortic aneurysm repair 14. History of TIA (transient ischemic attack) 15. Abnormal nuclear stress test 16. History of ventricular tachycardia Orders Placed This Encounter Procedures ECG 12 lead Case Request - CV/EP LAB: CV [facility] The following portions of the patient's history were personally reviewed by me and updated as appropriate: EKG tracings, other specialty provider and PCP notes,any Hospital admission and discharge summaries, any ER records , current and previous cardiac testing and procedure reports and d saran, medication bottles brought to visit today personally reviewed by me. Allergies, current medications.labs Family history, past medical history, past social history, past surgical history. Problem list. This encounter was dictated with voice recognition software and may contain inadvertent rec ognition errors. Chan HOOKER [facility] Cardiology 09/01/2019 Brandon mullins in this encounter Plan of Treatment +--------+ + + + + | Date | Type | Specialty | Care Team | Description | +--------+ + + + + | 09/17/ | Hospital | Radiology | Kimmie Wills | Essential | | 2019 | Encounter | | MD [address] | hypertension; | | | | | [place] | Abnormal nuclear | | | | | [id number] | stress test; Cardiac | | | | | | resynchronization | | | | | | therapy | | | | | | defibrillator | | | | | | (CLINIC RECEPTIONIST-D) in place; | | | | | | Non-ischemic | | | | | | cardiomyopathy | | | | | | (HCC); Non-sustained | | | | | | ventricular | | | | | | tachycardia (HCC); | | | | | | Orthostatic | | | | | | hypotension; Dyspnea | | | | | | on exertion; | | | | | | Essential | | | | | | hypertension | +--------+ + + + + | 09/17/ | Surgery | Radiology | Kimmie Wills | [facility] | | 2019 | | | MD [address] | | | | | | [place] | | | | | | [id number] | | | | | | | | +--------+ + + + + | 09/29/ | Office | Cardiology | Poppy Rodriguez | | 2019 | Visit | | [address] | | | | | | [address] | | | | | | [place] [address] | | | | | | [phone] | | | | | | | | +--------+ + + + + | 10/21/ | Office | Cardiology | Nav Foley | | | 2019 | Visit | | MD [address] | | | | | | [place] [address] | | | | | | [phone] | | | | | | | | +--------+ + + + + | 11/04/ | Procedure | Cardiology | | | | 2019 | visit | | | | +--------+ + + + + documented as of this encounter Procedures + +--------+ + + + | Procedure Name | Priori | Date/Time | Associated Diagnosis | Comments | | | ty | | | | + +--------+ + + + | ECG 12 LEAD | Routin | 09/01/2019 | Non-ischemic | Results for this | | | e | 2:15 PM | cardiomyopathy (HCC) | procedure are in the | | | | PST | Non-sustained | results section. | | | | | ventricular | | | | | | tachycardia (HCC) | | | | | | Orthostatic | | | | | | hypotension | | | | | | Essential | | | | | | hypertension | | | | | | Syncope and collapse | | | | | | Dyspnea on | | | | | | exertion Pulmonary | | | | | | emphysema, | | | | | | unspecified | | | | | | emphysema type (HCC) | | | | | | Chronic | | | | | | restrictive lung | | | | | | disease MOISÉS | | | | | | (obstructive sleep | | | | | | apnea) Cardiac | | | | | | resynchronization | | | | | | therapy | | | | | | defibrillator | | | | | | (CLINIC RECEPTIONIST-D) in place | | | | | | Encounter for | | | | | | monitoring diuretic | | | | | | therapy Exposure to | | | | | | secondhand smoke | | | | | | History of abdominal | | | | | | aortic aneurysm | | | | | | repair History of | | | | | | TIA (transient | | | | | | ischemic attack) | | | | | | History of | | | | | | ventricular | | | | | | tachycardia | | | | | | Abnormal nuclear | | | | | | stress test | | + +--------+ + + + documented in this encounter Results ECG 12 lead (09/01/2019 2:15 PM PST) + + + + + + | Component | Value | Ref Range | Performed | Pathologist | | | | | At | Signature | + + + + + + | VENTRICULAR | 76 | BPM | [facility] | | | RATE EKG | | | | | + + + + + + | ATRIAL RATE | 76 | BPM | [facility] | | + + + + + + | P-R | 124 | ms | [facility] | | | INTERVAL | | | | | + + + + + + | QRS | 184 | ms | [facility] | | | DURATION | | | | | + + + + + + | Q-T | 466 | ms | [facility] | | | INTERVAL | | | | | + + + + + + | Q-T | 524 | ms | [facility] | | | INTERVAL | | | | | | (CORRECTED) | | | | | + + + + + + | P WAVE AXIS | 22 | degrees | [facility] | | + + + + + + | QRS AXIS | -115 | degrees | [facility] | | + + + + + + | T AXIS | 60 | degrees | [facility] | | + + + + + + | INTERPRETAT | Please refer to | | [facility] | | | ION TEXT | Providers office visit | | | | | | note for Providers | | | | | | Interpretation.Confirmed | | | | | | by [facility] Read Only, | | | | | | [facility] ([id number]), | | | | | | desk editor Victorialacey Darwin | | | | | | ([id number]) on 09/01/2019 | | | | | | 3:46:11 PM | | | | + + + + + + + + | Specimen | + + | | + + + + + | Narrative | Performed At | + + + | | | + + + + +---------+ + + | Performing | Address | City/State/Zipcode | Phone Number | | Organization | | | | + +---------+ + + | [facility] | | | | + +---------+ + + documented in this encounter Visit Diagnoses + + | Diagnosis | + + | Non-ischemic cardiomyopathy (HCC) - Primary Other primary cardiomyopathies | + + | Cardiac resynchronization therapy defibrillator (CLINIC RECEPTIONIST-D) in place | + + | Non-sustained ventricular tachycardia (HCC) Paroxysmal ventricular tachycardia | + + | Orthostatic hypotension | + + | Essential hypertension Unspecified essential hypertension | + + | Syncope and collapse | + + | Dyspnea on exertion Other dyspnea and respiratory abnormality | + + | Pulmonary emphysema, unspecified emphysema type (HCC) | + + | MOISÉS (obstructive sleep apnea) Obstructive sleep apnea (adult) (pediatric) | + + | Encounter for monitoring diuretic therapy Encounter for therapeutic drug monitoring | + + | Exposure to secondhand smoke Other specified personal history presenting hazards to | | health | + + | Chronic restrictive lung disease Other diseases of lung, not elsewhere classified | + + | History of abdominal aortic aneurysm repair Other postprocedural status | + + | History of TIA (transient ischemic attack) Transient ischemic attack (TIA), and | | cerebral infarction without residual deficits | + + | Abnormal nuclear stress test Other nonspecific abnormal cardiovascular system | | function study | + + | History of ventricular tachycardia Personal history of other diseases of circulatory | | system | + + documented in this encounter
--- OUTSIDE RECORDS SUMMARY | ~2019-09-02 | XMS | Encounter Summary ---
Demographics + + + | Address | [address] | | | [place] [address] | + + + | Home Phone | | + + + | Preferred Language | Unknown | + + + | Marital Status | | + + + | Denominational Affiliation | Unknown | + + + | Race | Unknown | + + + | Ethnic Group | Unknown | + + + Author + + + | Author | [facility] | | | and [place] | + + + | Organization | [facility] | | | [...] Team Providers + +------+ + | Care Event Organizer Name | Role | Phone | + +------+ + | Carla Murphy | PCP | | | PA-C | | | + +------+ + Reason for Visit + + + | Reason | Comments | + + + | Follow-up | | + + + Encounter Details +--------+---------+ + + + | Date | Type | Department | Care Team | Description | +--------+---------+ + + + | 07/30/ | Office | [facility] EP | Mary Tipton ANP | Non-ischemic | | 2019 | Visit | [facility] [place] | [address] | cardiomyopathy (HCC) | | | | [address] | [place], [place] | (Primary Dx); | | | | [place], [place] | [address] | Non-sustained | | | | [address] | | ventricular | | | | [phone] | | tachycardia (HCC); | | | | | | Cardiac | | | | | | resynchronization | | | | | | therapy | | | | | | defibrillator | | | | | | (METAL MACHINE SETTER-D) in place; | | | | | | Orthostatic | | | | | | hypotension | +--------+---------+ + + + Social History [...] + + + | Blood Pressure | 100/60 | 07/30/2019 2:56 PM | | | | | PST | | + + + + + | Pulse | 73 | 07/30/2019 2:56 PM | | | | | PST | | + + + + + | Temperature | - | - | | + + + + + | Respiratory Rate | - | - | | + + + + + | Oxygen Saturation | 97% | 07/30/2019 2:56 PM | | | | | PST | | + + + + + | Inhaled Oxygen | - | - | | | Concentration | | | | + + + + + | Weight | 108.1 kg (238 lb 6.4 | 07/30/2019 2:56 PM | | | | oz) | PST | | + + + + + | Height | 177.8 cm (5' 10") | 07/30/2019 2:56 PM | | | | | PST | | + + + + + | Body Mass Index | 34.21 | 07/30/2019 2:56 PM | | | | | PST | | + + + + + documented in this encounter Patient Instructions Patient Instructions Mary Tipton ANP - 07/30/2019 3:15 PM PSTSTAY ON AMIODARONE TAPER DIRECTED CONTINUE METOPROLOL TARTRATE 6.25MG TWICE DAILY. DO NOT INCREASE THIS MEDICATION UNTIL YOU HEAR DIRECTLY FROM ME. I WILL CALL YOU TOMORROW AFTERNOON TO DISCUSS NEXT STEPS AFTER I TALK YOUR CASE OVER WITH Kim SANTIAGO ONCE WE HAVE THE RECORDS FROM [facility] documented in this encounter Progress Notes Mary Tipton ANP - 07/30/2019 3:15 PM PST ELECTROPHYSIOLOGY OUTPATIENT FOLLOW UP PATIENT NAME: Jared Abraham : 1945: AGE: 73 y.o. (home) : PRIMARY CARE: Carla Murphy PA-C Requesting Physician: No referring provider defined for this encounter. Plan SUMMARY OF EP RECOMMENDATIONS Continue current device settings, as appropriate device function Request records from [facility] for hospital stay 07/23/2019-07/28/2019 and TTE from that h ospital stay I will discuss his case with Dr. Santiago tomorrow and we will formulate a plan for next steps and consideration for stress testing. Options are very limited given his hypotension and sy ncope Amiodarone is our only option for AAD given his history of nonischemic cardiomyopathy Increase hydration. Total caffeine and ETOH abstinence recommended. Compression stockings. EK07/30/2019 personally reviewed and interpreted reveals -BiV pacing HR 83, IA 172, QR SD 154, QTC 509 Greater than 45 minutes spent with patient and/or family. Greater than 25 minutes spent in counseling and education on cardiomyopathy, NSVT, amiodarone. EP PROBLEMS ADDRESSED AT TODAY'S VISIT Problem List Cardiac resynchronization therapy defibrillator (METAL MACHINE SETTER-D) in place Overview History of nonischemic cardiomyopathy, NYHA class II, status post implantation of a MDT C RT-D by Dr. Chiang in January 2010. Generator change by Dr. Delarosa in 2014 viva xt METAL MACHINE SETTER D MDT number [id number].Patient has a 5076 atrial lead Medtronic. 6947 Sprint Quattro Medtronic RV lead and 4195 Starfix Medtronic LV lead. All leads were implanted in January 2010. 01/28/2019 Appropriate device function seen. Normal lead thresholds and battery status. Device was adj usted to optimize battery length while maintaining adequate safety margins. Atrial threshol d 1 V at 0.4 ms, P waves 2.3 mV impedance of 399 ohms. Right ventricular threshold 0.5 V at 0.4 ms with R waves of 4.6 mV impedance of 760 ohms shock impedance is 55 ohms. Left ventr icular threshold 0.75 V at 0.4 ms with impedance of 456 ohms. Julien pacing 32.9%, RV pac ing 91.2%, LV pacing 92.4%, BSR 1.2%, by V pacing 99.6%. DDDR 60-140 bpm with a paced AV de lay 150 ms and a sensed AV delay 120 ms with LV offset of -30. There were no events however the device was cleared on July 23, 2019 at the time of his hospitalization at [facility]. Non-ischemic cardiomyopathy Overview EF 35-40%, class 2-3 symptoms, s/p AICD 07/30/2019 He did not tolerate PATTY or ARB or Entresto secondary to hypotension. He cannot tolerate Top rol XL, Bisoprolol or Coreg due to hypotension. Off furosemide given hypotension since 2018. No edema or orthopnea. Non-sustained ventricular tachycardia Overview 07/30/2019 Continue beta magda therapy. He is only able to tolerate metoprolol tartrate 6.25 mg twi ce daily and is still having symptomatic blood pressures in the 80s systolic at times. We c annot advance this further or change to metoprolol succinate given his hypotension with mult iple syncopal and near syncopal events over the last year necessitating ER presentation. Ami odarone taper was recommended by Dr. Santiago 400mg BID x 1 week, 400mg daily x 1 week, then 20 0mg daily for suppression of NSVT. Consideration for Stress MPI. He denies any recent stress testing. Request echo results from [facility]. Will discuss next steps with Dr. Santiago and call the patient back with instructions. He is not to change any medications until he hears back from me. He verbalized understanding. Orthostatic hypotension Overview 07/30/2019 Increase hydration to at least 80 ounces of non-caffeinated fluids per day. Total caffeine and ETOH abstinence recommended. Compression stockings recommended. COMPREHENSIVE PROBLEM LIST Patient Active Problem List Diagnosis Date Noted Orthostatic hypotension 07/30/2019 Note Last Updated: 07/30/2019 07/30/2019 Increase hydration to at least 80 ounces of non-caffeinated fluids per day. Total caffeine and ETOH abstinence recommended. Compression stockings recommended. Encounter for monitoring diuretic therapy 07/21/2019 History of TIA (transient ischemic attack) 07/21/2019 Note Last Updated: 07/21/2019 04/15/2018: Admitted and treated for TIA at [facility] with consult form stroke team at [facility]. noted moderate stenosis of left vertebral artery at V1 and V2 segments, dysarthria, Exposure to secondhand smoke 07/21/2019 Note Last Updated: 07/21/2019 Goes to [employer] almost nightly. Chronic restrictive lung disease 07/21/2019 DM II (diabetes mellitus, type II), controlled (HCC) 08/18/2018 History of ventricular tachycardia 08/17/2018 HTN (hypertension) 08/17/2018 Syncope and collapse 08/17/2018 Morbid obesity (HCC) 07/10/2017 Note Last Updated: 03/12/2019 Weight loss was strongly encouraged. He needs to get involved in an exercise program. 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 Has adjusted his diet. Posttraumatic stress disorder 07/10/2017 Note Last Updated: 03/12/2019 He was buried alive at age 12 and has had claustrophobia since then. Hasn't been able to tolerate CPAP as a result. I suggested possible psychiatric evaluation and treatment but kathy berry didn't seem very interested. Other doctors have suggested hypnosis and he is not interes patricia in that either. Cardiac resynchronization therapy defibrillator (METAL MACHINE SETTER-D) in place 01/21/2017 Note Last Updated: 07/30/2019 History of nonischemic cardiomyopathy, NYHA class II, status post implantation of a MDT C RT-D by Dr. Chiang in January 2010. Generator change by Dr. Delarosa in 2014 viva xt METAL MACHINE SETTER D MDT number [id number].Patient has a 5076 atrial lead Medtronic. 6947 Sprint Quattro Medtronic RV lead and 4195 Starfix Medtronic LV lead. All leads were implanted in January 2010. 01/28/2019 Appropriate device function seen. Normal lead thresholds and battery status. Device was adj usted to optimize battery length while maintaining adequate safety margins. Atrial threshol d 1 V at 0.4 ms, P waves 2.3 mV impedance of 399 ohms. Right ventricular threshold 0.5 V at 0.4 ms with R waves of 4.6 mV impedance of 760 ohms shock impedance is 55 ohms. Left ventr icular threshold 0.75 V at 0.4 ms with impedance of 456 ohms. Julien pacing 32.9%, RV pac ing 91.2%, LV pacing 92.4%, BSR 1.2%, by V pacing 99.6%. DDDR 60-140 bpm with a paced AV de lay 150 ms and a sensed AV delay 120 ms with LV offset of -30. There were no events however the device was cleared on July 23, 2019 at the time of his hospitalization at [facility]. Non-sustained ventricular tachycardia (HCC) 01/21/2017 Note Last Updated: 07/30/2019 07/30/2019 Continue beta magda therapy. He is only able to tolerate metoprolol tartrate 6.25 mg twi ce daily and is still having symptomatic blood pressures in the 80s systolic at times. We c annot advance this further or change to metoprolol succinate given his hypotension with mult iple syncopal and near syncopal events over the last year necessitating ER presentation. Ami odarone taper was recommended by Dr. Santiago 400mg BID x 1 week, 400mg daily x 1 week, then 20 0mg daily for suppression of NSVT. Consideration for Stress MPI. He denies any recent stress testing. [facility]. Will discuss next steps with Dr. Santiago and call the patient back with instructions. He is not to change any medications until he hears back from me. He verbalized understanding. 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 Did not tolerate a CPAP mask. I recommended getting back with a sleep doctor and trying nasal pillows. He is currently using nasal cannula oxygen b ut "Medicare won't pay for that anymore". I told him he should consider buying his own conc entrator. Definitely needs to lose weight. 01/28/2019 He is going to trial alternate mask therapy. Non-ischemic cardiomyopathy (HCC) Note Last Updated: 07/30/2019 EF 35-40%, class 2-3 symptoms, s/p AICD 07/30/2019 He did not tolerate PATTY or ARB or Entresto secondary to hypotension. He cannot tolerate Top rol XL, Bisoprolol or Coreg due to hypotension. Off furosemide given hypotension since 2018. No edema or orthopnea. Hypothyroidism Inguinal hernia Note Last Updated: 10/24/2015 now recurrent History of abdominal aortic aneurysm repair 09/24/2014 S/P AAA repair 09/24/2014 Note Last Updated: 03/12/2019 History of repair September 24, 2014 HISTORY OF PRESENT ILLNESS This patient presents 07/30/2019 reporting that he is doing okay. The patient reports that he saw Poppy Beltran on July 21, 2019 and she recommended changing his metoprolol to bisopro lol to see if he would better tolerate this medication. Approximately 24 hours after he too k his first dose, he presented to the emergency room with near syncope and systolic blood pr essure in the 70s. He did pass out in the emergency room abruptly when he went to stand out of the wheelchair and he underwent IV fluid resuscitation. Will request records from [facility] for further evaluation. He denies any infectious process, anemia or vika ts assess that he of blood transfusion. He was given IV fluids and medications were adjuste d over the course of his stay and was discharged on July 28, 2019. He reports an echocar diogram was completed at that time. His medications were changed to metoprolol tartrate 6.2 5 mg twice daily with a plan to advance in the near future. He was also started on amiodaro ne taper of 400 mg twice daily for 1 week then 400 mg daily for 1 week then 200 mg daily the reafter for nonsustained ventricular tachycardia. He denies any recent stress testing. He denies any recent angina. He does have multiple cardiac risk factors including hypertension, diabetes, history of con gestive heart failure, obesity, sedentary lifestyle, exposure to secondhand smoke daily. Allergies Allergen Reactions Codeine Anaphylaxis and Other (See Comments) Heart stops 08/18/18 Patient says he tolerated morphine at [facility] Meperidine Anaphylaxis and Other (See Comments) Heart stops 08/18/18 Patient says he tolerated morphine at [facility] Orphenadrine Anaphylaxis and Other (See Comments) Heart stops 08/18/18 Patient says he tolerated morphine at [facility] Percodan [Oxycodone] Anaphylaxis Amiodarone Other (See Comments) Blurry vision, stomach pain, constipation Digoxin And Related Other (See Comments) Low BP Penicillins Hives Current Medications Current Outpatient Medications: amiodarone (PACERONE) 200 mg tablet, Take 200 mg by mouth Daily., Disp: , Rfl: aspirin 81 mg EC tablet, Take 81 mg by mouth Daily., Disp: , Rfl: atorvaSTATin (LIPITOR) 20 mg tablet, Take 20 mg by mouth nightly., Disp: , Rfl: cholecalciferol (CHOLECALCIFEROL) 5000 units TABS, Take 5,000 Int'l Units by mouth neno ly., Disp: , Rfl: clopidogrel (PLAVIX) 75 mg tablet, Take 75 mg by mouth daily., Disp: , Rfl: levothyroxine (SYNTHROID) 88 mcg tablet, Take one tablet daily , Disp: , Rfl: loratadine (CLARITIN) 10 mg tablet, Take 10 mg by mouth daily., Disp: , Rfl: MAGNESIUM PO, Take 250 mg by mouth daily., Disp: , Rfl: metFORMIN (GLUCOPHAGE-XR) 500 mg 24 hr tablet, Take 1 tablet by mouth daily., Disp: , Rfl: metoprolol tartrate (LOPRESSOR) 25 mg tablet, Take 25 mg by mouth 2 times daily., Disp : , Rfl: The past history, social history, family history and problem list were reviewed and update d with changes of any significance. DATA Laboratory values which I reviewed 07/30/2019 are as follows: Lab Results Component Value Date WBC 10.67 08/18/2018 RBC 4.27 08/18/2018 HGB 13.0 (L) 08/18/2018 Lab Results Component Value Date NA 141 08/18/2018 K 3.9 08/18/2018 CL 101 08/18/2018 CO2 31 08/18/2018 ANIONGAP 13 08/18/2018 GLUF 136 (H) 08/18/2018 BUN 16 08/18/2018 BCR 18 08/18/2018 EGFR >60 08/18/2018 Lab Results Component Value Date CHOL 76 08/18/2018 TRIG 102 08/18/2018 GLUF 136 (H) 08/18/2018 Lab Results Component Value Date BNP 113 (H) 01/21/2017 TSH 2.040 08/18/2018 ROS I have personally reviewed and agree with ROS listed by ONI christine. All other systems are reviewed and negative. PHYSICAL EXAM BP 100/60 | Pulse 73 | Ht 1.778 m (5' 10") | Wt 108.1 kg (238 lb 6.4 oz) | SpO2 97% | BMI 34.21 kg/m Physical Exam Constitutional: He is oriented to person, place, and time. He appears well-developed and we ll-nourished. HENT: Head: Normocephalic and atraumatic. Eyes: Pupils are equal, round, and reactive to light. Neck: No JVD present. No thyromegaly present. Cardiovascular: Normal rate and regular rhythm. No murmur heard. Pulmonary/Chest: Effort normal and breath sounds normal. He has no rales. Abdominal: Soft. Bowel sounds are normal. There is no tenderness. Musculoskeletal: General: No edema. Neurological: He is alert and oriented to person, place, and time. Skin: Skin is warm and dry. Device incision line is well approximated with no e/o infection or complication. Psychiatric: He has a normal mood and affect. Vitals reviewed. ERNIE Deal 07/30/2019 4:24 PM *This report has been prepared using a voice recognition system. The report was reviewed f or accuracy, however, sound-alike word errors, addition and/or deletions may occur. If there is any question about this report please contact me. Patient Instructions STAY ON AMIODARONE TAPER DIRECTED CONTINUE METOPROLOL TARTRATE 6.25MG TWICE DAILY. DO NOT INCREASE THIS MEDICATION UNTIL YOU HEAR DIRECTLY FROM ME. I WILL CALL YOU TOMORROW AFTERNOON TO DISCUSS NEXT STEPS AFTER I TALK YOUR CASE OVER WITH Kim SANTIAGO ONCE WE HAVE THE RECORDS FROM [facility] Elisha Chakraborty CMA - 07/30/2019 3:15 PM PSTAncyanet BUNN Note- Electrophysiology Patient ID: Jared Abraham is a 73 y.o. male. Review of Systems Constitutional: Positive for chills and malaise/fatigue. Respiratory: Positive for shortness of breath. Cardiovascular: Positive for chest pain, palpitations and leg swelling. Have you ever had a sleep study? (YES) Do you use oxygen? (YES) Do you use CPAP? (NO) Do you snore? (YES) Do you fall asleep for no reason during the day? (NO) Do you stop breathing at night? (YES) Do you feel excessively tired during the day? (YES) documented in this encounter Plan of Treatment +--------+ + + + + | Date | Type | Specialty | Care Team | Description | +--------+ + + + + | 09/17/ | Hospital | Radiology | Kimmie Wills | Essential | | 2019 | Encounter | | MD [address] | hypertension; | | | | | [place] | Abnormal nuclear | | | | | [id number] | stress test; Cardiac | | | | | | resynchronization | | | | | | therapy | | | | | | defibrillator | | | | | | (METAL MACHINE SETTER-D) in place; | | | | | [...] Surgery | Radiology | Kimmie Wills | [facility] | | 2019 | | | MD Saravanan [address] | | | | | | [place] | | | | | | [address] | | | | | | | | +--------+ + + + + | 09/29/ | Office | Cardiology | Poppy Rodriguez | | | 2019 | Visit | | [address] | | | | | | [address] | | | | | | [place] [address] | | | | | | [phone] | | | | | | | | +--------+ + + + + | 10/21/ | Office | Cardiology | Nav Foley, | | | 2019 | Visit | | [address] | | | | | | [place] [address] | | | | | | [phone] | | | | | | | [...] | ECG 12 LEAD | Routin | 07/30/2019 | Non-ischemic | Results for this | | | e | 3:01 PM | cardiomyopathy (HCC) | procedure are in the | | | | PST | Non-sustained | results section. | | | | | ventricular | | | | | | tachycardia (HCC) | | + +--------+ + + + documented in this encounter Results ECG 12 lead (07/30/2019 3:01 PM PST) + + + + + + | Component | Value | Ref Range | Performed | Pathologist | | | | | At | Signature | + + + + + + | VENTRICULAR | 83 | BPM | [facility] | | | RATE EKG | | | | | + + + + + + | ATRIAL RATE | 83 | BPM | [facility] | | + + + + + + | P-R | 172 | ms | [facility] | | | INTERVAL | | | | | + + + + + + | QRS | 154 | ms | [facility] | | | DURATION | | | | | + + + + + + | Q-T | 434 | ms | [facility] | | | INTERVAL | | | | | + + + + + + | Q-T | 509 | ms | [facility] | | | INTERVAL | | | | | | (CORRECTED) | | | | | + + + + + + | P WAVE AXIS | 23 | degrees | [facility] | | + + + + + + | QRS AXIS | -83 | degrees | [facility] | | + + + + + + | T AXIS | 75 | degrees | [facility] | | + + + + + + | INTERPRETAT | Please refer to | | [facility] | | | ION TEXT | Providers office visit | | | | | | note for Providers | | | | | | Interpretation.Confirmed | | | | | | by [facility] [place] Read Only, | | | | | | [facility] Pam ([id number]), | | | | | | editorial clerk Darwin Bob | | | | | | ([phone]) on 07/30/2019 | | | | | | 3:43:40 PM | | | | + + [...] Other primary cardiomyopathies | + + | Non-sustained ventricular tachycardia (HCC) Paroxysmal ventricular tachycardia | + + | Cardiac resynchronization therapy defibrillator (METAL MACHINE SETTER-D) in place | + + | Orthostatic hypotension | + + documented in this encounter
--- OUTSIDE RECORDS SUMMARY | ~2019-09-02 | XMS | Encounter Summary ---
Demographics + + + | Address | [address] | | | [place] [address] | + + + | Home Phone | | + + + | Preferred Language | Unknown | + + + | Marital Status | | + + + | Alevism Affiliation | Unknown | + + + [...] Team Providers + +------+ + | Care Lease Purchase Driver Name | Role | Phone | + +------+ + | Carla Murphy | PCP | | | PA-C | | | + +------+ + Encounter Details +--------+ + + + + | Date | Type | Department | Care Team | Description | +--------+ + + + + | 11/03/ | Orders Only | [facility] [place] | Soila Rudd, | Panlobular emphysema | | 2015 | | PULMONARY [address] | RN | ([facility]) | | | | [place], | | | | | | [place] [address] | | | | | | [phone] | | | +--------+ + + + [...] | Kimmie Wills | Essential | | 2020 | Encounter | | MD [address] Coe | hypertension; | | | | | [place] | Abnormal nuclear | | | | | [id number] | stress test; Cardiac | | | | | | resynchronization | | | | | | therapy | | | | | | defibrillator | | | | | | (AMALGAMATOR-D) in place; | | | | | [...] | Radiology | Kimmie Wills | [facility] | | 2019 | | | MD Saravanan [address] | | | | | | [place] | | | | | | [address] | | | | | | | | +--------+ + + + + | 09/29/ | Office | Cardiology | Poppy Rodriguez | | 2019 | Visit | | [address] | | | | | | [address] | | | | | | [place] [address] | | | | | | [phone] | | | | | | | | +--------+ + + + + | 10/21/ | Office | Cardiology | Nav Foley Anabela, | | | 2019 | Visit | | MD [address] | | | | | | [facility] [place] [address] | | | | | | [phone] | | | | | | | | +--------+ + + + + | 11/04/ | Procedure | Cardiology | | | | 2019 | visit | | | | +--------+ + + + + documented as of this encounter Visit Diagnoses + + | Diagnosis | + + | Panlobular emphysema (HCC) Other emphysema | + + documented in this encounter"
--- OUTSIDE RECORDS SUMMARY | ~2019-09-02 | XMS | Encounter Summary ---
Demographics + + + | Address | [address] | | | [place] [address] | + + + | Home Phone | | + + + | Preferred Language | Unknown | + + + | Marital Status | | + + + | Mu-Ism Affiliation | Unknown | + + + | Race | Unknown | + + + | Ethnic Group | Unknown | + + + Author + + + | Author | [facility] | | | and [place] | + + + | Organization | [facility] | | | [...] Team Providers + +------+ + | Care Ecommerce Merchandising Manager Name | Role | Phone | + +------+ + | Carla Murphy | PCP | | | PA-C | | | + +------+ + Encounter Details +--------+ + + + + | Date | Type | Department | Care Team | Description | +--------+ + + + + | 03/25/ | Hospital | [facility] | Conversion | Unknown cause of | | 2016 | Encounter | CONVERSION [address] | Transaction, | injury | | | | [address] | Provider Unknown | | | | | [place], [place] | [phone] | | | | | [phone] | (Fax) | | | | | [phone] | | | +--------+ + + + [...] | 2020 | Encounter | | MD Saravanan [address] | hypertension; | | | | | [place] | Abnormal nuclear | | | | | [id number] | stress test; Cardiac | | | | | | resynchronization | | | | | | therapy | | | | | | defibrillator | | | | | | (RIG MECHANIC-D) in place; | | | | | [...] | Radiology | Kimmie Wills | [facility] | 2019 | | | MD Saravanan [address] | | | | | | [place] | | | | | | [address] | | | | | | | | +--------+ + + + + | 09/29/ | Office | Cardiology | Poppy Rodriguez | | 2019 | Visit | | [address] | | | | | | [address] | | | | | | [place] [address] | | | | | | [phone] | | | | | | | | +--------+ + + + + | 10/21/ | Office | Cardiology | Nav Foley, | | | 2019 | Visit | | [address] | | | | | | [place] [address] | | | | | | [phone] | | | | | | | [...] XR CHEST 1 VIEW | Routin | 03/25/2016 | | Results for this | | | e | 7:58 AM | | procedure are in the | | | | PDT | | results section. | + +--------+ + + + documented in this encounter Results XR Chest 1 Vw (03/25/2016 7:58 AM PDT) + + | Specimen | [...]
--- OUTSIDE RECORDS SUMMARY | ~2019-09-02 | XMS | Encounter Summary ---
Demographics + + + | Address | [address] | | | [place] [address] | + + + | Home Phone | | + + + | Preferred Language | Unknown | + + + | Marital Status | | + + + | Jainism Affiliation | Unknown | + + + | Race | Unknown | + + + | Ethnic Group | Unknown | + + + Author + + + | Author | [facility] | | | and [place] | + + + | Organization | [facility] | | | [...] Team Providers + +------+ + | Care Stopping Builder Name | Role | Phone | + +------+ + | Carla Murphy | PCP | | | PA-C | | | + +------+ + Reason for Referral Diagnostic/Screening (Routine) + +--------+ + + + + | Status | Reason | Specialty | Diagnoses / | Referred By | Referred To | | | | | Procedures | Contact | Contact | + +--------+ + + + + | Authorized | | Radiology | Diagnoses | Mary Tipton | Rufus | | | | | Abnormal | C ANP | Cardiology | | | | | stress test | [address] | [place] Nuc | | | | | Procedures | [address] | Med [address] | | | | | [place] Nuclear | [address] | [address] | | | | | Stress Test | [place], [place] | [place] | | | | | (Vasodilator | [address] | [address] | | | | | ) | Phone: | Phone: | | | | | | [phone] | [phone] | | | | | | Fax: | Fax: | | | | | | [phone] | [phone] | + +--------+ + + + + Encounter Details +--------+ + + + + | Date | Type | Department | Care Team | Description | +--------+ + + + + | 08/05/ | Orders Only | [facility] | Mary Tipton, ANP | Abnormal stress test | | 2019 | | CARDIOLOGY [place] | [address] | (Primary Dx) | | | | [address] | [place] | | | | | [place] | [address] | | | | | [address] | | | | | | [phone] | | | +--------+ + + + [...] Abnormal nuclear | | | | | [address] | stress test; Cardiac | | | | | | resynchronization | | | | | | therapy | | | | | | defibrillator | | | | | | (GENERAL MANAGER FOOD-D) in place; | | | | | [...] | Radiology | Kimmie Wills | CV C | | 2019 | | | MD Saravan[address] | | | | | | [place] | | | | | | [address] | | | | | | | | +--------+ + + + + | 09/29/ | Office | Cardiology | Poppy Rodriguez | | | 2019 | Visit | | [address] | | | | | | [address] | | | | | | [place] [address] | | | | | | [phone] | | | | | | | | +--------+ + + + + | 10/21/ | Office | Cardiology | Nav Foley, | | | 2019 | Visit | | MD [address] | | | | | | [facility] [address] | | | | | | [phone] | | | | | | | | +--------+ + + + + | 11/04/ | Procedure | Cardiology | | | | 2019 | visit | | | | +--------+ + + + + documented as of this encounter Results NM Nuclear Stress Test (Vasodilator) (08/29/2019 11:19 AM PST) + +--------+ + + + | Component | Value | Ref Range | Performed | Pathologist | | | | | At | Signature | + +--------+ + + + | BASELINE | 74 | bpm | [facility] | | | HEART RATE | | | | | + +--------+ + + + | BASELINE | 117/83 | mmHg | [facility] | | | BLOOD | | | | | | PRESSURE | | | | | + +--------+ + + + | PEAK HEART | 100 | | [facility] | | | RATE | | | | | + +--------+ + + + | PEAK BLOOD | 117/83 | mmHG | [facility] | | | PRESSURE | | | | | + +--------+ + + + | Target HR | 126 | | [facility] | | + +--------+ + + + | Percent HR | 68 | | [facility] | | + +--------+ + + + | Max | 148 | | [facility] | | | Predicted | | | | | | HR | | | | | + +--------+ + + + | LVEF-SPECT | 18 | % | [facility] | | | NUCLEAR | | | | | | STRESS/VIAB | | | | | | ILITY | | | | | + +--------+ + + + | NM stress | 311 | | [facility] | | | end | | | | | | diastolic | | | | | | volume | | | | | + +--------+ + + + | NM stress | 256 | | [facility] | | | end | | | | | | systolic | | | | | | volume | | | | | + +--------+ + + + | NM rest end | 327 | | [facility] | | | diastolic | | | | | | volume | | | | | + +--------+ + + + | NM rest end | 265 | | [facility] | | | systolic | | | | | | volume | | | | | + +--------+ + + + | TID VALUE | 0.92 | | [facility] | | + +--------+ + + + + + | Specimen | + + | | + + + + + | Narrative | Performed At | + + + | Uneventful | [facility] | | chemical stress infusionAbnormal SPECT study showing large fixed | | | inferoapical defect and a small fixed basal lateral defectThere is | | | mild RV uptake of tracerSevere LV dysfunction with calculated | | | post-rest ejection fraction of 18%This is a potentially high risk | | | study | | + + + + + | Procedure Note | + + | Nav Foley MD - 08/28/2019 3:26 PM PST [facility] chemical stress | | infusionAbnormal SPECT study showing large fixed inferoapical defect and a small fixed | | basal lateral defectThere is mild RV uptake of tracerSevere LV dysfunction with | | calculated post-rest ejection fraction of 18%This is a potentially high risk study | |This is a potentially high risk study | + + + +---------+ + + | Performing | Address | City/State/Zipcode | Phone Number | | Organization | | | | + +---------+ + + | [facility] | | | | + +---------+ + + documented in this encounter Visit Diagnoses + + | Diagnosis | + + | Abnormal stress test - Primary Other nonspecific abnormal cardiovascular system | | function study | + + documented in this encounter"
--- OUTSIDE RECORDS SUMMARY | ~2019-09-02 | XMS | Encounter Summary ---
Demographics + + + | Address | [address] | | | [place] [address] | + + + | Home Phone | | + + + | Preferred Language | Unknown | + + + | Marital Status | | + + + | Jain Affiliation | Unknown | + + + [...] Team Providers + +------+ + | Care Oracle Hrms Consultant Name | Role | Phone | + +------+ + PCP | Unavailable | + +------+ + Encounter Details +--------+ + + + + | Date | Type | Department | Care Team | Description | +--------+ + + + + | 09/17/ | Hospital | [facility] | Conversion | | | 2014 | Encounter | [facility] | Transaction, | | | | | CLINIC [address] | Provider Unknown | | | | | [place], [place] | [phone] | | | | | [address] | | | | | | [phone] | | | +--------+ + + + [...] | 2020 | Encounter | | MD aSntos Coe | hypertension; | | | | | [place] | Abnormal nuclear | | | | | [address] | stress test; Cardiac | | | | | | resynchronization | | | | | | therapy | | | | | | defibrillator | | | | | | (ALLERGIST/IMMUNOLOGIST PHYSICIAN-D) in place; | | | | | [...] | Radiology | Kimmie Wills | CV [facility] | | 2019 | | | MD Saravan[address] | | | | | | [place] | | | | | | [address] | | | | | | | | +--------+ + + + + | 09/29/ | Office | Cardiology | Poppy Rodriguez | | | 2019 | Visit | | [address] | | | | | | [address] | | | | | | [place] [address] | | | | | | [phone] | | | | | | | | +--------+ + + + + | 10/21/ | Office | Cardiology | Nav Foley, | | | 2019 | Visit | | MD Santos [address] | | | | | | [place] [address] | | | | | | [phone] | | | | | | | [...] XR CHEST 2 VIEWS | Routin | 09/17/2014 | | Results for this | | | e | 12:25 PM | | procedure are in the | | | | PST | | results section. | + +--------+ + + + | MRSA NAAT | Timed | 09/17/2014 | | Results for this | | | | 12:01 PM | | procedure are in the | | | | PST | | results section. | + +--------+ + + + | EXTERNAL LAB: [facility] | Routin | 09/17/2014 | | Results for this | | | e | 12:00 PM | | procedure are in the | | | | PST | | results section. | + +--------+ + + + | PTT | Routin | 09/17/2014 | | Results for this | | | e | 12:00 PM | | procedure are in the | | | | PST | | results section. | + +--------+ + + + | PROTIME INR | Routin | 09/17/2014 | | Results for this | | | e | 12:00 PM | | procedure are in the | | | | PST | | results section. | + +--------+ + + + | TYPE AND SCREEN | Routin | 09/17/2014 | | Results for this | | | e | 12:00 PM | | procedure are in the | | | | PST | | results section. | + +--------+ + + + | BASIC METABOLIC | Routin | 09/17/2014 | | Results for this | | PANEL | e | 12:00 PM | | procedure are in the | | | | PST | | results section. | + +--------+ + + + | ECG 12 LEAD | Routin | 09/17/2014 | | Results for this | | | e | 11:45 AM | | procedure are in the | | | | PST | | results section. | + +--------+ + + + documented in this encounter Results XR Chest 2 Vws (09/17/2014 12:25 PM PST) + + | Specimen | + + | | + + + + + | Impressions | Performed At | + + + | 1. 3-lead ICD seen over the left chest with intact leads in proper | | | position. 2. No acute findings in the chest. 3. Thoracic | | | spondylosis noted. Electronically signed by Erasmo Cornejo DO on | | | 09/17/2014 5:44 PM | | + + + + + + | Narrative | Performed At | + + + | [facility] [employer] XR CHEST 2 VIEW FRONTAL AND LATERAL 09/17/2014 | | | 12:25 PM HISTORY: 69 years. Male. Preoperative evaluation of | | | the chest. TECHNIQUE: 2 views obtained. COMPARISON: | | | 01/27/2010. FINDINGS: A 3-lead ICD seen over the left chest with | | | intact leads in proper position. The heart is normal in size. The | | | lungs are normally expanded. Chronic elevation left hemidiaphragm is | | | noted unchanged from the prior exam. The pulmonary vascular pattern | | | is normal. No acute airspace disease, parenchymal nodule, mass, | | | pleural effusion or pneumothorax is noted. No hilar adenopathy is | | | seen. Thoracic spondylosis is noted. | | + + + + + | Procedure Note | + + | Mike, Rad Conversion - 04/03/2019 11:51 PM PDT [facility] WILL[facility] CHEST 2 VIEW | | FRONTAL AND LATERAL09/17/2014 12:25 PM HISTORY:69 years. Male. Preoperative evaluation | | of the chest. TECHNIQUE:2 views obtained. COMPARISON:01/27/2010. FINDINGS:A 3-lead ICD | | seen over the left chest with intact leads in proper position.The heart is normal in | | size. The lungs are normally expanded. Chronic elevation left hemidiaphragm is noted | | unchanged from the prior exam. The pulmonary vascular pattern is normal. No acute | | airspace disease, parenchymal nodule, mass, pleural effusion or pneumothorax is noted. | | No hilar adenopathy is seen. Thoracic spondylosis is noted. IMPRESSION: 1. 3-lead ICD | | seen over the left chest with intact leads in proper position.2. No acute findings in | | the chest.3. Thoracic spondylosis noted. Electronically signed by Erasmo Cornejo DO on | | 09/17/2014 5:44 PM | |01/27/2010. | | | |FINDINGS: | |A 3-lead ICD seen over the left chest with intact leads in proper position. | |The heart is normal in size. The lungs are normally expanded. Chronic elevation left an diaphragm is noted unchanged from the prior exam. The pulmonary vascular pattern is normal. No acute airspace disease, | |parenchymal nodule, mass, pleural effusion | | or pneumothorax is noted. No hilar adenopathy is seen. Thoracic spondylosis is noted. | | | |IMPRESSION: | |1. 3-lead ICD seen over the left chest with intact leads in proper position. | |2. No acute findings in the chest. | |3. Thoracic spondylosis noted. | | | | | + + MRSA NAAT (09/17/2014 12:01 PM PST) + + | Specimen | + + | | + + + + + | Narrative | Performed At | + + + | SOURCE NARES(NOSE) | EXTERNAL LAB | | Testing performed at [facility];[address] [place] [address];[place] [address] MRSA PCR | | | NEGATIVE Testing performed at | | | [address];[place] [address] | | + + + + +---------+ + + | Performing | Address | City/State/Zipcode | Phone Number | | Organization | | | | + +---------+ + + | EXTERNAL LAB | | | | + +---------+ + + Type and Screen (09/17/2014 12:00 PM PST) + + + + + + | Component | Value | Ref Range | Performed | Pathologist | | | | | At | Signature | + + + + + + | ABO Rh | O POSITIVE | | EXTERNAL | | | | | | LAB | | + + + + + + | ABO Rh | Testing performed at | | EXTERNAL | | | | [address] | | LAB | | | | Blvd;[place] [address] | | | | + + + + + + | Antibody | NEGATIVE | | EXTERNAL | | | Screen | | | LAB | | + + + + + + | Antibody | Testing performed at | | EXTERNAL | | | Screen | [facility];[address] | | LAB | | | | Blvd;[place] [address] | | | | + + + + + + + + | Specimen | + + | Blood specimen | | (specimen) | + + + +---------+ + + | Performing | Address | City/State/Zipcode | Phone Number | | Organization | | | | + +---------+ + + | EXTERNAL LAB | | | | + +---------+ + + PTT (09/17/2014 12:00 PM PST) + + + + + + | Component | Value | Ref Range | Performed | Pathologist | | | | | At | Signature | + + + + + + | aPTT, | 25Comment: Testing | 23 - 32 seconds | EXTERNAL | | | Patient | performed at [facility];[address] | | LAB | | | | [address];[place] | | | | | | [address] | | | | + + + + + + + + | Specimen | + + | Blood specimen | | (specimen) | + + + +---------+ + + | Performing | Address | City/State/Zipcode | Phone Number | | Organization | | | | + +---------+ + + | EXTERNAL LAB | | | | + +---------+ + + Protime INR (09/17/2014 12:00 PM PST) + + + + + [...] | | | | | performed at [facility] | | | | | | [facility];[place], [place] | | | | | | [address] | | | | + + + [...] + +---------+ + + External Lab: CBC (09/17/2014 12:00 PM PST) + + + + + + | Component | Value | Ref Range | Performed | Pathologist | | | | | At | Signature | + + + + + + | WBC | 14.6 (H)Comment: Testing | 3.8 - 11.0 K/uL | EXTERNAL | | | | performed at [facility], [address] | | LAB | | | | [address], | | | | | | [place] [address] | | | | + + + + + + | RED CELL | 5.03Comment: Testing | 4.20 - 5.70 | EXTERNAL | | | COUNT | performed at [facility], [address] | M/uL | LAB | | | | [address], | | | | | | [place] [address] | | | | + + + + + + | Hgb | 15.5Comment: Testing | 13.2 - 17.0 | EXTERNAL | | | | performed at [facility], [address] | g/dL | LAB | | | | [address], | | | | | | [place] [address] | | | | + + + + + + | Hematocrit, | 45.4Comment: Testing | 39.0 - 50.0 % | EXTERNAL | | | POC | performed at [facility], [address] | | LAB | | | | [address], | | | | | | [place] [address] | | | | + + + + + + | MCV | 90.1Comment: Testing | 80.0 - 100.0 fl | EXTERNAL | | | | performed at [facility], [address] | | LAB | | | | [address], | | | | | | [place] [address] | | | | + + + + + + | MCH | 30.8Comment: Testing | 27.0 - 34.0 pg | EXTERNAL | | | | performed at [facility], [address] | | LAB | | | | [address], | | | | | | [place] [address] | | | | + + + + + + | MCHC | 34.2Comment: Testing | 32.0 - 35.5 | EXTERNAL | | | | performed at [facility], [address] | g/dL | LAB | | | | [address], | | | | | | [place] [address] | | | | + + + + + + | RDW-CV | 43.3Comment: Testing | 37 - 53 fl | EXTERNAL | | | | performed at [facility], [address] | | LAB | | | | [address], | | | | | | [place] [address] | | | | + + + + + + | Platelet | 227Comment: Testing | 150 - 400 K/uL | EXTERNAL | | | Count | performed at [facility], [address] | | LAB | | | Plasma | [address], | | | | | | [place] [address] | | | | + + + + + + | MPV | 8.6Comment: Testing | fl | EXTERNAL | | | | performed at [facility], [address] | | LAB | | | | [address], | | | | | | [place], [place] [address] | | | | + + + + + + | Differentia | MANUALComment: Testing | | EXTERNAL | | | l Type | performed at [facility], [address] | | LAB | | | | [address], | | | | | | [place], [place] [address] | | | | + + + + + + | Segmented | 83Comment: Testing | % | EXTERNAL | | | Neutrophils | performed at [facility], [address] | | LAB | | | Manual | [address], | | | | | | [place], [place] [address] | | | | + + + + + + | Lymphocytes | 11Comment: Testing | % | EXTERNAL | | | Manual | performed at [facility], [address] | | LAB | | | | [address], | | | | | | [place], [place] [address] | | | | + + + + + + | Monocytes | 5Comment: Testing | % | EXTERNAL | | | Manual | performed at [facility], [address] | | LAB | | | | [address], | | | | | | [place] [address] | | | | + + + + + + | Eosinophils | 1Comment: Testing | % | EXTERNAL | | | Manual | performed at [facility], [address] | | LAB | | | | [address], | | | | | | [place] [address] | | | | + + + + + + | Absolute | 12.2 (H)Comment: Testing | 1.9 - 7.4 K/uL | EXTERNAL | | | Neutrophils | performed at [facility], [address] | | LAB | | | | [address], | | | | | | [place] [address] | | | | + + + + + + | Absolute | 1.6Comment: Testing | 1.0 - 3.9 K/uL | EXTERNAL | | | Lymphocytes | performed at [facility], [address] | | LAB | | | | [address], | | | | | | [place] [address] | | | | + + + + + + | Absolute | 0.7Comment: Testing | 0 - 0.8 K/uL | EXTERNAL | | | Monocytes | performed at [facility], [address] | | LAB | | | | [address], | | | | | | [place] [address] | | | | + + + + + + | Absolute | 0.1Comment: Testing | 0 - 0.5 K/uL | EXTERNAL | | | Eosinophils | performed at [facility], [address] | | LAB | | | | [address], | | | | | | [place] [address] | | | | + + + + + + | RBC | RBC AND PLT MORPHOLOGY | | EXTERNAL | | | Morphology | APPEAR NORMALComment: | | LAB | | | | Testing performed at | | | | | | [facility], [address] | | | | | | [place] | | | | | | [address] | | | | + + + [...] + +---------+ + + Basic Metabolic Panel (09/17/2014 12:00 PM PST) + + + + + + | Component | Value | Ref Range | Performed | Pathologist | | | | | At | Signature | + + + + + + | Na | 134 (L)Comment: Testing | 135 - 143 | EXTERNAL | | | | performed at [facility], [address] | mmol/L | LAB | | | | [address], | | | | | | [place] [address] | | | | + + + + + + | K | 4.2Comment: Testing | 3.5 - 4.9 | EXTERNAL | | | | performed at [facility], [address] | mmol/L | LAB | | | | [address], | | | | | | [place] [address] | | | | + + + + + + | Cl | 98 (L)Comment: Testing | 99 - 109 mmol/L | EXTERNAL | | | | performed at [facility], [address] | | LAB | | | | [address], | | | | | | [place] [address] | | | | + + + + + + | CO2 | 31Comment: Testing | 23 - 32 mmol/L | EXTERNAL | | | | performed at [facility], [address] | | LAB | | | | [address], | | | | | | [place] [address] | | | | + + + + + + | Anion Gap | 9Comment: Testing | 5 - 20 mmol/L | EXTERNAL | | | | performed at [facility], [address] | | LAB | | | | [address], | | | | | | [place] [address] | | | | + + + + + + | Glucose, | 115 (H)Comment: Testing | 65 - 99 mg/dL | EXTERNAL | | | Fasting | performed at [facility], [address] | | LAB | | | | [address], | | | | | | [place] [address] | | | | + + + + + + | BUN | 16Comment: Testing | 8 - 25 mg/dL | EXTERNAL | | | | performed at [facility], [address] | | LAB | | | | [address], | | | | | | [place] [address] | | | | + + + + + + | Creatinine | 0.98Comment: Testing | 0.70 - 1.30 | EXTERNAL | | | | performed at [facility], [address] | mg/dL | LAB | | | | [address], | | | | | | [place] [address] | | | | + + + + + + | BUN/Creatin | 16Comment: Testing | | EXTERNAL | | | ine Ratio | performed at [facility], [address] | | LAB | | | | [address], | | | | | | [place] [address] | | | | + + + + + + | Calcium | 9.9Comment: NOTE NEW | 8.5 - 10.5 | EXTERNAL | | | | REFERENCE RANGETesting | mg/dL | LAB | | | | performed at [facility], [address] | | | | | | [facility], | | | | | | [place] [address] | | | | + + + [...] | | | | | | at [facility], [address] | | | | | | [facility], | | | | | | [place] [address] | | | | + + + + + + + + | Specimen | + + | Blood specimen | | (specimen) | + + + +---------+ + + | Performing | Address | City/State/Zipcode | Phone Number | | Organization | | | | + +---------+ + + | EXTERNAL LAB | | | | + +---------+ + + ECG 12 lead (09/17/2014 11:45 AM PST) + + + + + + | Component | Value | Ref Range | Performed | Pathologist | | | | | At | Signature | + + + + + + | DIAGNOSIS: | Atrial-sensed | | EXTERNAL | | | | ventricular-paced | | LAB | | | | rhythmBiventricular | | | | | | pacemaker | | | | | | detectedAbnormal ECGNo | | | | | | previous ECGs | | | | | | availableConfirmed by | | | | | | Dereck Norman ([id number]) | | | | | | on 09/17/2014 9:52:50 PM | | | | + + + + + + + + | Specimen | + + | | + + + + + | Narrative | Performed At | + + + | Historically converted procedure from [facility] Epic environment | EXTERNAL LAB | + + + + +---------+ + + | Performing | Address | City/State/Zipcode | Phone Number | | Organization | | | | + +---------+ + + | EXTERNAL LAB | | | | + +---------+ + + documented in this encounter Visit Diagnoses Not on filedocumented in this encounter"
--- OUTSIDE RECORDS SUMMARY | ~2019-09-02 | XMS | Encounter Summary ---
Demographics + + + | Address | [address] | | | [place] [address] | + + + | Home Phone | | + + + | Preferred Language | Unknown | + + + | Marital Status | | + + + | Latter Day Affiliation | Unknown | + + + | Race | Unknown | + + + | Ethnic Group | Unknown | + + + Author + + + | Author | [facility] | | | and [place] | + + + | Organization | [facility] | | [...] Team Providers + +------+ + | Care Sharepoint Consultant Name | Role | Phone | + +------+ + | Carla Murphy | PCP | | | PA-C | | | + +------+ + Encounter Details +--------+ + + + + | Date | Type | Department | Care Team | Description | +--------+ + + + + | 11/24/ | Orders Only | [facility] [place] | Soila Rudd, | Panlobular emphysema | | 2015 | | PULMONARY [address] | RN | ([facility]) | | | | [place], | | | | | | [place] [address] | | | | | | [phone] | | | +--------+ + + + [...] Abnormal nuclear | | | | | [address] | stress test; Cardiac | | | | | | resynchronization | | | | | | therapy | | | | | | defibrillator | | | | | | (LIQUOR MERCHANT-D) in place; | | | | | [...] | Radiology | Kimmie Wills | CV [facility] | | 2019 | | | MD [address] | | | | | | [place] | | | | | | [address] | | | | | | | | +--------+ + + + + | 09/29/ | Office | Cardiology | Poppy Rodriguez | | 2019 | Visit | | [address] | | | | | | [address] | | | | | | [place] [address] | | | | | | [phone] | | | | | | | | +--------+ + + + + | 10/21/ | Office | Cardiology | Nav Foley Anabela, | | | 2019 | Visit | | MD [address] | | | | | | [facility] [address] | | | | | | [phone] | | | | | | | [...]
--- OUTSIDE RECORDS SUMMARY | ~2019-09-02 | XMS | Encounter Summary ---
Demographics + + + | Address | [address] | | | [place] [address] | + + + | Home Phone | | + + + | Preferred Language | Unknown | + + + | Marital Status | | + + + | Holiness Affiliation | Unknown | + + + | Race | Unknown | + + + | Ethnic Group | Unknown | + + + Author + + + | Author | [facility] | | | and [place] | + + + | Organization | [facility] | | | and [...] Team Providers + +------+ + | Care Genetic Supervisor Name | Role | Phone | + +------+ + | Carla Murphy | PCP | | | PA-C | | | + +------+ + Reason for Visit +---------+ + | Reason | Comments | +---------+ + | Results | nocturnal oximetry | +---------+ + Encounter Details +--------+ + + + + | Date | Type | Department | Care Team | Description | +--------+ + + + + | // | Telephone | [facility] | [place], | Results (nocturnal | | 2016 | | PULMONARY [address] | Sailaja Chiang MD | oximetry) | | | | [place], | | | | | | [place] [address] | | | | | | [phone] | | | +--------+ + + + [...] Abnormal nuclear | | | | | [address] | stress test; Cardiac | | | | | | resynchronization | | | | | | therapy | | | | | | defibrillator | | | | | | (TEST LEAD-D) in place; | | | | | [...] [place] | | | | | | [address] | | | | | | | | +--------+ + + + + | 09/29/ | Office | Cardiology | Poppy Rodriguez | | | 2019 | Visit | | [address] | | | | | | [address] | | | | | | [place] [address] | | | | | | [phone] | | | | | | | | +--------+ + + + + | 10/21/ | Office | Cardiology | Nav Foley, | | | 2019 | Visit | | MD [address] | | | | | | [place] [address] | | | | | | [phone] | | | | | | | [...] | + + +--------+ + + | Oxygen Therapy | Respiratory | Routin | Panlobular | 1 Occurrences | | | Care | e | emphysema (HCC) | starting 11/23/2015 | | | | | | until 11/22/2016 | + + +--------+ + + documented as of this encounter Visit Diagnoses + + | Diagnosis | + + | Panlobular emphysema (HCC) - Primary Other emphysema | + + documented in this encounter"
--- OUTSIDE RECORDS SUMMARY | ~2019-09-02 | XMS | Encounter Summary ---
Demographics + + + | Address | [address] | | | [place] [address] | + + + | Home Phone | | + + + | Preferred Language | Unknown | + + + | Marital Status | | + + + | Yarsani Affiliation | Unknown | + + + | Race | Unknown | + + + | Ethnic Group | Unknown | + + + Author + + + | Author | [facility] | | | and [place] | + + + | Organization | [facility] | | [...] Team Providers + +------+ + | Care Home Health Clinician Name | Role | Phone | + +------+ + | Carla Murphy | PCP | | | PA-C | | | + +------+ + Encounter Details +--------+ + + + + | Date | Type | Department | Care Team | Description | +--------+ + + + + | 01/31/ | Care | [facility] | [place], | | | 2015 | Coordinatio | [facility] | Sailaja Chiang MD | | | | n | INFORMATION | | | | | | MANAGEMENT | | | | | | [phone] | | | +--------+ + + + [...] | hypertension; | | | | | [address] [place] | Abnormal nuclear | | | | | [id number] | stress test; Cardiac | | | | | | resynchronization | | | | | | therapy | | | | | | defibrillator | | | | | | (BOTTLE CAPPER-D) in place; | | | | | [...] | Radiology | Kimmie Wills | [facility] | | 2019 | | | MD [address] | | | | | | [place] | | | | | | [address] | | | | | | | | +--------+ + + + + | 09/29/ | Office | Cardiology | Poppy Rodriguez | | | 2019 | Visit | | [address] | | | | | | [address] | | | | | | [place] [address] | | | | | | [phone] | | | | | | | | +--------+ + + + + | 10/21/ | Office | Cardiology | Nav Foley, | | | 2019 | Visit | | [address] | | | | | | [place] [address] | | | | | | [phone] | | | | | | | | +--------+ + + + + | 18/ | Procedure | Cardiology | | | | 2020 | visit | | | | +--------+ + + + + documented as of this encounter Visit Diagnoses Not on filedocumented in this encounter"
--- OUTSIDE RECORDS SUMMARY | ~2019-09-02 | XMS | Encounter Summary ---
Demographics + + + | Address | [address] | | | [place] [address] | + + + | Home Phone [...] + + + | Author | [facility] | | | and [place] | + + + | Organization | [facility] | | | [...] Team Providers + +------+ + | Care Senior Systems Developer Name | Role | Phone | [...] + + | 07/30/ | Office | [facility] EP | Mary Tipton ANP | Non-ischemic | | 2019 | Visit | CARDIOLOGY SALINE | [address] | cardiomyopathy (HCC) | | | | [address] | [place], [place] | (Primary Dx); | | | | [place], [place] | [address] | Non-sustained | | | | [address] | | ventricular | | | | [phone] | | tachycardia (HCC); | | | | | | Cardiac | | | | | | resynchronization | | | | | | therapy | | | | | | defibrillator | | | | | | (COIN MACHINE SERVICER REPAIRER-D) in place; | | | | | [...] SANTIAGO ONCE WE HAVE THE RECORDS FROM [facility] documented in this encounter Progress Notes Mary Tipton ANP - 07/30/2019 3:15 PM PST ELECTROPHYSIOLOGY OUTPATIENT FOLLOW UP PATIENT NAME: Jared Abraham : 1945: AGE: 73 y.o. (home) : PRIMARY CARE: Carla Murphy PA-C Requesting Physician: No referring provider defined for this encounter. Plan SUMMARY OF EP RECOMMENDATIONS Continue current device settings, as appropriate device function Request records from [facility] for hospital stay 07/23/2019-07/28/2019 and [...] and interpreted reveals -BiV pacing HR 83, CT 172, QR SD 154, QTC 509 Greater than 45 minutes spent with patient and/or family. Greater than 25 minutes spent in counseling and education on cardiomyopathy, NSVT, amiodarone. EP PROBLEMS ADDRESSED AT TODAY'S VISIT Problem List Cardiac resynchronization therapy defibrillator (COIN MACHINE SERVICER REPAIRER-D) in place Overview History of nonischemic cardiomyopathy, NYHA class II, status post implantation of a MDT C RT-D by Dr. Chiang in January 2010. Generator change by Dr. Delarosa in 2014 viva xt COIN MACHINE SERVICER REPAIRER D MDT number [id number].Patient has a 5076 atrial lead Medtronic. 6947 [...] at the time of his hospitalization at [facility]. Non-ischemic cardiomyopathy Overview EF 35-40%, class [...] recent stress testing. Request echo results from [facility]. Will discuss next steps with [...] 04/15/2018: Admitted and treated for TIA at [facility] with consult form stroke team at [facility]. noted moderate stenosis of left vertebral artery at V1 and V2 segments, dysarthria, Exposure to secondhand smoke 07/21/2019 Note Last Updated: 07/21/2019 Goes to [place] almost nightly. Chronic restrictive lung disease 07/21/2019 DM II (diabetes mellitus, type II), controlled (HCC) 08/18/2018 History of ventricular tachycardia 08/17/2018 HTN (hypertension) 08/17/2018 Syncope and collapse 08/17/2018 Morbid obesity (HCC) 07/10/2017 Note Last Updated: 03/12/2019 Weight loss was strongly encouraged. He needs to get involved in an exercise program. 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 Cardiac resynchronization therapy defibrillator (COIN MACHINE SERVICER REPAIRER-D) in place 01/21/2017 Note Last Updated: 07/30/2019 History of nonischemic cardiomyopathy, NYHA class II, status post implantation of a MDT C RT-D by Dr. Chiang in January 2010. Generator change by Dr. Delarosa in 2014 viva xt COIN MACHINE SERVICER REPAIRER D MDT number [id number].Patient has a 5076 atrial lead Medtronic. 6947 [...] at the time of his hospitalization at [facility]. Non-sustained ventricular tachycardia (HCC) 01/21/2017 Note Last [...] stress testing. Request echo [facility]. Will discuss next steps with Dr. [...] IV fluid resuscitation. Will request records from [facility] for further evaluation. He denies any infectious [...] Patient says he tolerated morphine at [facility] Meperidine Anaphylaxis and Other (See Comments) Heart stops 08/18/18 Patient says he tolerated morphine [facility] Orphenadrine Anaphylaxis and Other (See Comments) Heart stops 08/18/18 Patient says he tolerated morphine at [facility] Percodan [Oxycodone] Anaphylaxis Amiodarone Other (See Comments) [...] SANTIAGO ONCE WE HAVE THE RECORDS FROM [facility] Elisha Chakraborty CMA - 07/30/2019 3:15 PM [...] Abnormal nuclear | | | | | [address] | stress test; Cardiac | | | | | | resynchronization | | | | | | therapy | | | | | | defibrillator | | | | | | (COIN MACHINE SERVICER REPAIRER-D) in place; | | | | | [...] | Radiology | Kimmie Wills | [facility] | | 2019 | | | MD [address] | | | | | | [place] | | | | | | [address] | | | | | | | | +--------+ + + + + | 09/29/ | Office | Cardiology | Poppy Rodriguez | | | 2019 | Visit | | [address] | | | | | | [address] | | | | | | [place] [address] | | | | | | [phone] | | | | | | | | +--------+ + + + + | 10/21/ | Office | Cardiology | Nav Foley, | | | 2019 | Visit | | [address] | | | | | | [place] [address] | | | | | | [phone] | | | | | | | [...] | | | | | by [employer] [place] Read Only, | | | | | | [employer]CA Pam ([id number]), | | | | | | international editorial producer Darwin Bob | | | | | | ([id number]) on 07/30/2019 | | | | | [...] + + | Cardiac resynchronization therapy defibrillator (COIN MACHINE SERVICER REPAIRER-D) in place | + + | Orthostatic hypotension | + + documented in this encounter
--- OUTSIDE RECORDS SUMMARY | ~2019-09-02 | XMS | Encounter Summary ---
Demographics + + + | Address | [address] | | | [place] [address] | + + + | Home Phone | | + + + | Preferred Language | Unknown | + + + | Marital Status | | + + + | Episcopal Affiliation | Unknown | + + + | Race | Unknown | + + + | Ethnic Group | Unknown | + + + Author + + + | Author | [facility] | | | and [place] | + + + | Organization | [facility] | | | [...] Team Providers + +------+ + | Care Digital Sales Manager Name | Role | Phone | + +------+ + | Carla Murphy | PCP | | | PA-C | | | + +------+ + Encounter Details +--------+ + + + + | Date | Type | Department | Care Team | Description | +--------+ + + + + | 03/25/ | Hospital | [facility] GENER[facility] IP | Conversion | Unknown cause of | | 2016 | Encounter | CONVERSION [address] | Transaction, | injury | | | | [address] | Provider Unknown | | | | | [place], [place] | [phone] | | | | | [phone] | (Fax) | | | | | [phone] | | | +--------+ + + + [...] Abnormal nuclear | | | | | [address] | stress test; Cardiac | | | | | | resynchronization | | | | | | therapy | | | | | | defibrillator | | | | | | (TRACK SURFACING MACHINE OPERATOR-D) in place; | | | | | [...] | Radiology | Kimmie Wills | [facility] | 2019 | | | MD [address] | | | | | | [place] | | | | | | [address] | | | | | | | | +--------+ + + + + | 09/29/ | Office | Cardiology | Poppy Rodriguez | | 2019 | Visit | | [address] | | | | | | [address] | | | | | | [place] [address] | | | | | | [phone] | | | | | | | | +--------+ + + + + | 10/21/ | Office | Cardiology | Nav Foley, | | | 2019 | Visit | | [address] | | | | | | [place] [address] | | | | | | [phone] | | | | | | | [...]
--- OUTSIDE RECORDS SUMMARY | ~2019-09-02 | XMS | Encounter Summary ---
Demographics + + + | Address | [address] | | | [place] [address] | + + + | Home Phone [...] Team Providers + +------+ + | Care Ships Or Barges Loader Name | Role | Phone | + +------+ + | Carla Murphy | PCP | | | PA-C | | | + +------+ + Encounter Details +--------+ + + + + | Date | Type | Department | Care Team | Description | +--------+ + + + + | 03/12/ | Orders Only | [facility] | Provider, | Type 2 diabetes | | 2019 | | SYSTEM GENERIC OP | MD [address] | mellitus without | | | | CONVERSION [address] | [address] | complications (HCC); | | | | [address] [place], [place] | [place] [address] | Encounter for | | | | [address] | | therapeutic drug | | | | [phone] | | level monitoring | +--------+ + [...] Abnormal nuclear | | | | | [address] | stress test; Cardiac | | | | | | resynchronization | | | | | | therapy | | | | | | defibrillator | | | | | | (DERRICK BOAT CAPTAIN-D) in place; | | | | | [...] | Radiology | Kimmie Wills | [facility] | | 2020 | | | MD [address] | | | | | | [place] | | | | | | [address] | | | | | | | | +--------+ + + + + | 09/29/ | Office | Cardiology | Poppy Rodriguez | | | 2019 | Visit | | [address] | | | | | | [address] | | | | | | [place] [address] | | | | | | | | | | | | (Fax) | | +--------+ + + + + | 10/21/ | Office | Cardiology | Nav Foley, | | | 2019 | Visit | | MD [address] | | | | | | [place] [address] | | | | | | [phone] | | | | | | (Fax) | | +--------+ + + + + | 11/04/ | Procedure | Cardiology | | | | 2019 | visit | | | | +--------+ + + + + + +------+--------+ + + | Name | Type | Priori | Associated Diagnoses | Order Schedule | | | | ty | | | + +------+--------+ + + | Basic Metabolic | Lab | Routin | Type 2 diabetes | Expected: | | Panel | | e | mellitus without | 11/11/2018, Expires: | | | | | complications (HCC) | 10/29/2019 | | | | | Encounter for | | | | | | therapeutic drug | | | | | | level monitoring | | + +------+--------+ + + documented as [...]
--- OUTSIDE RECORDS SUMMARY | ~2019-09-02 | XMS | Encounter Summary ---
Demographics + + + | Address | [address] | | | [place] [address] | + + + | Home Phone | | + + + | Preferred Language | Unknown | + + + | Marital Status | | + + + | Lutheran Affiliation | Unknown | + + + | Race | Unknown | + + + | Ethnic Group | Unknown | + + + Author + + + | Author | [facility] | | | and [place] | + + + | Organization | [facility] | | | [...] Team Providers + +------+ + | Care Capital Campaign Fundraiser Name | Role | Phone | + [...] MD | diaphragm | | | | [place], | | | | | | [place] [address] | | | | | | [phone] | | | +--------+ + + + [...] | Encounter | | MD [address] | hypertension; | | | | | [place] | Abnormal nuclear | | | | | [address] | stress test; Cardiac | | | | | | resynchronization | | | | | | therapy | | | | | | defibrillator | | | | | | (SUPERVISOR MONEY ROOM-D) in place; | | | | | [...] | Radiology | Kimmie Wills | [facility] | | 2019 | | | MD [address] | | | | | | [place] | | | | | | [address] | | | | | | | | +--------+ + + + + | 09/29/ | Office | Cardiology | Poppy Rodriguez | | 2019 | Visit | | [address] | | | | | | [address] | | | | | | [place] [address] | | | | | | [phone] | | | | | | | | +--------+ + + + + | 10/21/ | Office | Cardiology | Nav Foley, | | 2019 | Visit | [address] | | | | | | [place] [address] | | | | | | [phone] | | | | | | | | +--------+ + + + + | 03/18/ | Procedure | Cardiology | | | | 2020 | visit | | | | +--------+ + + + + documented as of this encounter Visit Diagnoses + + | Diagnosis | + + | Elevated left diaphragm Disorders of diaphragm | + + documented in this encounter"
--- OUTSIDE RECORDS SUMMARY | ~2019-09-02 | XMS | Encounter Summary ---
Demographics + + + | Address | [address] | | | [place] [address] | + + + | Home Phone | | + + + | Preferred Language | Unknown | + + + | Marital Status | | + + + | Religion Affiliation | Unknown | + + + | Race | Unknown | + + + | Ethnic Group | Unknown | + + + Author + + + | Author | [facility] | | | and [place] | + + + | Organization | [facility] | | [...] Team Providers + +------+ + | Care Medical Appointment Clerk Name | Role | Phone | + +------+ + | Carla Murphy | PCP | | | PA-C | | | + +------+ + Encounter Details +--------+ + + + + | Date | Type | Department | Care Team | Description | +--------+ + + + + | 05// | Orders Only | [facility] | Gretchen Joy, | | | 2017 | | CARDIOLOGY [place] Donato MD [address] | | | | | [address] | [place], [place] | | | | | [place], [place] | [address] | | | | | [address] | | | | | | [phone] | | | +--------+ + + + [...] Abnormal nuclear | | | | | [id number] | stress test; Cardiac | | | | | | resynchronization | | | | | | therapy | | | | | | defibrillator | | | | | | (LEAD PONY RIDER-D) in place; | | | | | [...] | Radiology | Kimmie Wills | [facility] | | 2019 | | | MD [address] | | | | | | [place] | | | | | | [address] | | | | | | | | +--------+ + + + + | 09/29/ | Office | Cardiology | Poppy Rodriguez | | 2019 | Visit | | [address] | | | | | | [address] | | | | | | [place] [address] | | | | | | [phone] | | | | | | | | +--------+ + + + + | 10/21/ | Office | Cardiology | Nav Foley, | | 2019 | Visit | | [address] | | | | | | [place] [address] | | | | | | [phone] | | | | | | | [...] + | BASIC METABOLIC | Routin | 01/11/2018 | | Results for this | | PANEL | e | 2:05 PM | | procedure are in the | | | | PDT | | results section. | + +--------+ + + + documented in this encounter Results Basic Metabolic Panel (01/11/2018 2:05 PM PDT) + +---------+ + + + | Component | Value | Ref Range | Performed | Pathologist | | | | | At | Signature | + +---------+ + + + | Glucose, | 167 (A) | 70 - 100 mg/dL | EXTERNAL | | | Fasting | | | LAB | | + +---------+ + + + | BUN | 17.3 | 6.0 - 28.6 | EXTERNAL | | | | | mg/dL | LAB | | + +---------+ + + + | Creatinine | 1.04 | 0.70 - 1.18 | EXTERNAL | | | | | mg/dL | LAB | | + +---------+ + + + | BUN/Creatin | 17.3 | 6.0 - 28.6 | EXTERNAL | | | ine Ratio | | | LAB | | + +---------+ + + + | Calcium | 9.0 | 8.4 - 10.2 | EXTERNAL | | | | | mg/dL | LAB | | + +---------+ + + + | Na | 142 | 132 - 143 | EXTERNAL | | | | | mmol/L | LAB | | + +---------+ + + + | K | 4.4 | 3.6 - 5.1 | EXTERNAL | | | | | mmol/L | LAB | | + +---------+ + + + | Cl | 103 | 95 - 112 mmol/L | EXTERNAL | | | | | | LAB | | + +---------+ + + + | CO2 | 29 | 19 - 31 mmol/L | EXTERNAL | | | | | | LAB | | + +---------+ + + + | Anion Gap | 14.4 | 7 - 21 mmol/L | EXTERNAL | | | | | | LAB | | + +---------+ + + + | Estimated | 71 | mg/dL | EXTERNAL | | | GFR | | | LAB | | + [...]
--- OUTSIDE RECORDS SUMMARY | ~2019-09-02 | XMS | Encounter Summary ---
Demographics + + + | Address | [address] | | | [place] [address] | + + + | Home Phone | | + + + | Preferred Language | Unknown | + + + | Marital Status | | + + + | Anabaptism Affiliation | Unknown | + + + | Race | Unknown | + + + | Ethnic Group | Unknown | + + + Author + + + | Author | [facility] | | | and [place] | + + + | Organization | [facility] | | | [...] Team Providers + +------+ + | Care Aviation Project Engineer Name | Role | Phone | + +------+ + | Carla Murphy | PCP | | | PA-C | | | + +------+ + Reason for Visit +---------+ + | Reason | Comments | +---------+ + | Testing | schedule testing | +---------+ + Encounter Details +--------+ + + + + | Date | Type | Department | Care Team | Description | +--------+ + + + + | 08/21/ | Telephone | [facility] | Mary Tipton ANP | Testing (schedule | | 2019 | | CARDIOLOGY [place] | [address] | testing) | | | | [address] | [place], [place] | | | | | [place], [place] | [address] | | | | | [address] | | | | | | [phone] | | | +--------+ + + + [...] Abnormal nuclear | | | | | [address] | stress test; Cardiac | | | | | | resynchronization | | | | | | therapy | | | | | | defibrillator | | | | | | (LOCK FITTER-D) in place; | | | | | [...] Kimmie Wills | [facility] | | 2019 | | | MD [address] | | | | | | [place] | | | | | | [address] | | | | | | | | +--------+ + + + + | 09/29/ | Office | Cardiology | Poppy Rodriguez | | | 2019 | Visit | | [address] | | | | | | [address] | | | | | | [place] [address] | | | | | | [phone] | | | | | | | | +--------+ + + + + | 10/21/ | Office | Cardiology | Nav Foley, | | | 2019 | Visit | | [address] | | | | | | [place] [address] | | | | | | [phone] | | | | | | | | +--------+ + + + + | 11/04/ | Procedure | Cardiology | | | | 2019 | visit | | | | +--------+ + + + + documented as of this encounter Visit Diagnoses Not on filedocumented in this encounter"
--- OUTSIDE RECORDS SUMMARY | ~2019-09-02 | XMS | Encounter Summary ---
Demographics + + + | Address | [address] | | | [place] [address] | + + + | Home Phone | | + + + | Preferred Language | Unknown | + + + | Marital Status | | + + + | Orthodox Affiliation | Unknown | + + + | Race | Unknown | + + + | Ethnic Group | Unknown | + + + Author + + + | Author | [facility] | | | and [place] | + + + | Organization | [facility] | | | [...] Team Providers + +------+ + | Care Caramel Maker Name | Role | Phone | [...] | | stress test | [address] | [place] [facility] | | | | | Procedures | [address] | [address] | | | | | [place] Nuclear | [place] [address] | [address] | | | | | Stress Test | [place], [place] | [place], [place] | | | | | (Vasodilator | [address] | [address] | | | | | ) | Phone: | Phone: | | | | | | [phone] | [phone] | | | | | | Fax: | Fax: | | | | | | [phone] | [phone] | + +--------+ + + + + Reason for Visit Diagnostic/Screening (Routine) + +--------+ + + + [...] | | stress test | [address] | [place] [facility] | | | | | Procedures | [address] | [address] | | | | | [place] Nuclear | [address] [address] | [address] | | | | | Stress Test | [place], [place] | [place], [place] | | | | | (Vasodilator | [address] | [address] | | | | | ) | Phone: | Phone: | | | | | | [phone] | [phone] | | | | | | Fax: | Fax: | | | | | | [phone] | [phone] | + +--------+ + + + + Encounter Details +--------+ + + + + | Date | Type | Department | Care Team | Description | +--------+ + + + + | 08/26/ | Hospital | [facility] | Mary Tipton ANP | Abnormal stress test | | 2020 | Encounter | CARDIOLOGY [place] | [address] | | | | | NUC [address] | [place], [place] | | | | | [address] | [address] | | | | | [place], [place] | | | | | | [address] | | | | | | [phone] | | | +--------+ + + + [...] +---------+ + + | MAGNESIUM PO | every 48 hours. | | 0 | | | + + + +---------+ [...] times daily. Take | | | | | | 25 mg tablet | one [...] Abnormal nuclear | | | | | [address] | stress test; Cardiac | | | | | | resynchronization | | | | | | therapy | | | | | | defibrillator | | | | | | (IT PROFESSIONAL-D) in place; | | | | | [...] [place] | | | | | | [address] | | | | | | | | +--------+ + + + + | 09/29/ | Office | Cardiology | Poppy Rodriguez | | | 2019 | Visit | | [address] | | | | | | [address] | | | | | | [place] [address] | | | | | [phone] | | | | | | | | +--------+ + + + + | 10/21/ | Office | Cardiology | Nav Foley, | | | 2019 | Visit | | MD [address] | | | | | | [place] [address] | | | | | | [phone] | | | | | | | [...]
--- OUTSIDE RECORDS SUMMARY | ~2019-09-02 | XMS | Encounter Summary ---
Demographics + + + | Address | [address] | | | [place] [address] | + + + | Home Phone | | + + + | Preferred Language | Unknown | + + + | Marital Status | | + + + | Lutheran Affiliation | Unknown | + + + | Race | Unknown | + + + | Ethnic Group | Unknown | + + + Author + + + | Author | [facility] | | | and [place] | + + + | Organization | [facility] | | | [...] Team Providers + +------+ + | Care Orthopedic Podiatrist Name | Role | Phone | + +------+ + PCP | Unavailable | + +------+ + Encounter Details +--------+ + + + + | Date | Type | Department | Care Team | Description | +--------+ + + + + | 09/16/ | Hospital | [facility] | Conversion | Pain | | 2015 | Encounter | CONVERSION DEP [address] | Transaction, | | | | | [address] | Provider Unknown | | | | | [place] | [phone] | | | | | [address] | | | | | | [phone] | | | +--------+ + + + [...] Abnormal nuclear | | | | | [address] | stress test; Cardiac | | | | | | resynchronization | | | | | | therapy | | | | | | defibrillator | | | | | | (PET WALKER-D) in place; | | | | | [...] | Radiology | Kimmie Wills | [facility] | | 2019 | | | MD Saravan[address] | | | | | | [place] | | | | | | [address] | | | | | | | | +--------+ + + + + | 09/29/ | Office | Cardiology | Poppy Rodriguez | | | 2019 | Visit | | [address] | | | | | | [address] | | | | | | [place] [address] | | | | | | [phone] | | | | | | | | +--------+ + + + + | 10/21/ | Office | Cardiology | Nav Foley, | | | 2019 | Visit | | MD [address] | | | | | | [place] [address] | | | | | | [phone] | | | | | | | [...] | CT ANGIOGRAM ABDOMEN | Routin | 09/16/2014 | | Results for this | | PELVIS W CONTRAST | e | 1:32 PM | | procedure are in the | | | | PST | | results section. | + +--------+ + + + documented in this encounter Results CT Angiogram Abdomen Pelvis w Contrast (09/16/2014 1:32 PM PST) + + | Specimen | [...]
--- OUTSIDE RECORDS SUMMARY | ~2019-09-02 | XMS | Encounter Summary ---
Demographics + + + | Address | [address] | | | [place] [address] | + + + | Home Phone | | + + + | Preferred Language | Unknown | + + + | Marital Status | | + + + | Yazdanism Affiliation | Unknown | + + + | Race | Unknown | + + + | Ethnic Group | Unknown | + + + Author + + + | Author | [facility] | | | and [place] | + + + | Organization | [facility] | | | [...] Team Providers + +------+ + | Care Drophammer Operator Name | Role | Phone | + +------+ + PCP | Unavailable | + +------+ + Encounter Details +--------+ + + + + | Date | Type | Department | Care Team | Description | +--------+ + + + + | 11/05/ | Hospital | [facility] | Elder Cooper MD | Unspecified Chest | | 2008 | Encounter | [facility] | [address] | Pain | | | | CLINICAL DECISION | [address] | | | | | [address] | [place], [place] | | | | | [place], [place] | [address] | | | | | [address] | [phone] | | | | | [phone] | | | +--------+ + + + [...] Abnormal nuclear | | | | | [address] | stress test; Cardiac | | | | | | resynchronization | | | | | | therapy | | | | | | defibrillator | | | | | | (EMAIL PRODUCER-D) in place; | | | | | [...] 2019 | | | MD Saravanan [address] | | | | | | [place] | | | | | | [address] | | | | | | | | +--------+ + + + + | 09/29/ | Office | Cardiology | Poppy Rodriguez | | | 2019 | Visit | | [address] | | | | | | [address] | | | | | | [place] [address] | | | | | | [phone] | | | | | | | | +--------+ + + + + | 10/21/ | Office | Cardiology | Nav Foley, | | | 2019 | Visit | | MD [address] | | | | | | [place] [address] | | | | | | [phone] | | | | | | | [...] + +--------+ + + + | CV CARDIAC PROCEDURE | Routin | 11/05/2008 | | Results for this | | | e | 11:03 AM | | procedure are in the | | | | PDT | | results section. | + +--------+ + + + documented in this encounter Results CV CARDIAC PROCEDURE (11/05/2008 11:03 AM PDT) + + | Specimen | + + | | + + + + + | Narrative | Performed At | + + + | [id number] | | | Page 1 CARDIOLOGY | | | CDU 23985/ | | | OPS [facility] | | [facility] NAME: FRANCI VEL[address]ZQUEZ [place] | | | [address] | | | | | | DATE OF : 1945 | | | ORDER NUMBER: [id number] EXAM DATE/TIME: 11/05/2008 08:22 A | | | ORDERING PHYSICIAN: ELDER COOPER ORDER DETAIL: [id number] / / HCL | | | EXAM DESCRIPTION: CCL HEART CATH LT RETRO PERC | | | | | | PROCEDURES 1. Left heart catheterization. 2. Left ventriculogram. | | | 3. Left and right selective coronary angiography. 4. Angiography of | | | the right common femoral artery for possible closure device | | | deployment. 5. Angio-Seal closure device deployment. INDICATIONS | | | This is a 63-year-old gentleman with past medical history of new | | | onset congestive heart failure. He was found to have cardiomyopathy | | | on echocardiogram. A stress test performed recently confirmed severe | | | cardiomyopathy and left ventricular (LV) dysfunction. The patient was | | | advised to undergo left heart catheterization and coronary | | | angiography to rule out significant obstructive disease and rule out | | | ischemic cardiomyopathy. The patient was informed about the risks, | | | benefits, and alternatives of the procedure, and informed consent was | | | obtained. DESCRIPTION OF PROCEDURE The patient was brought to | | | the cardiac catheterization laboratory. He was prepped and sedated in | | | the usual manner. The right groin was prepped and draped in the | | | usual sterile fashion. The right groin was anesthetized with 10 mL of | | | 1% lidocaine solution. A 6-Macanese arterial sheath was inserted into | | | the right common femoral artery using a modified Seldinger technique. | | | A 6-Macanese pigtail catheter was advanced over the guidewire under | | | fluoroscopy into the proximal aorta, and the opening aortic pressure | | | was obtained. The pigtail catheter was advanced under fluoroscopy to | | | the left ventricular cavity, and the pressures in the LV cavity were | | | measured. Dye was injected into the LV and left ventriculogram in the | | | right anterior oblique (VILLALPANDO) projection was obtained. The pigtail | | | catheter was then pulled back across the aortic valve, and the | | | pressure gradient across the valve was recorded. The pigtail catheter | | | was exchanged over the guidewire by a 6-Macanese JL4 catheter that was | | | advanced over the guidewire under fluoroscopy and engaged to the | | | left main artery. Dye was injected into the left coronary system, and | | | multiple angiographic pictures of the left coronary system were | | | taken in multiple projections. The JL4 catheter was exchanged over a | | | guidewire by a 6-Macanese right coronary artery (RCA) Waqar catheter | | | that was advanced over the guidewire under fluoroscopy and engaged | | | with the RCA. Dye was injected into the RCA, and multiple | | | angiographic pictures of the RCA were taken in multiple projections. | | | Then, the RCA catheter was taken out. Angiography of the right common | | | femoral artery was performed injecting dye through the side port of | | | the arterial sheath in the right groin for possible closure device | | | deployment. AngioSeal closure device was deployed. However, the | | | deployment was unsuccessful. Manual pressure was held on the groin | | | for 50 minutes, and successful hemostasis was obtained. The patient | | | tolerated the procedure well. He was hemodynamically stable at the | | | end of the procedure and had no immediate complications. FINDINGS | | | HEMODYNAMICS The opening aortic pressure was 105/67. The LV | | | pressure was 104/6, with the left ventricular end diastolic pressure | | | (LVEDP) calculated at 60 mmHg. There was on significant pressure | | | gradient recorded across the aortic valve upon pulling back the | | | pigtail catheter across the valve. The closing aortic pressure was | | | 99/58. LEFT VENTRICULOGRAM Revealed a severely-enlarged left | | | ventricle with severe global hypokinesis of the left ventricle. The | | | LV systolic function is severely decreased. The LV ejection fraction | | | is estimated at 15% to 20%. No significant mitral regurgitation was | | | seen. CORONARY ANGIOGRAPHY 1. The left main is a large-caliber | | | vessel that trifurcates giving rise to the left anterior | | | descending (LAD) and left circumflex artery as well as the ramus | | | intermedius branch. The left main is free of disease. The LAD is | | | a large-caliber vessel that gives rise to 4 diagonal branches and | | | multiple septal branches. The LAD and its branches are free of | | | disease. 2. The left circumflex is a large-caliber vessel that gives | | | rise to 2 obtuse marginal branches. The left circumflex system is | | | free of disease. The ramus intermedius branch is a large-caliber | | | vessel that appears to be free of disease. 3. The RCA is a | | | large-caliber dominant vessel that gives rise to the right | | | posterior descending artery (PDA), posterolateral artery (ELLIE) | | | and 1 right ventricular (RV) marginal branch. The RCA and its | | | branches are free of disease. ESTIMATED BLOOD LOSS Less than 50 | | | mL. CONCLUSION 1. Severe nonischemic cardiomyopathy with left | | | ventricular ejection fraction estimated at 15% to 20/ 2. | | | Normal epicardial coronary arteries. 3. Normal left ventricular | | | pressures. PLAN The patient will be continued on medical | | | treatment for congestive heart failure and cardiomyopathy. We will | | | reassess his LV function by echocardiogram in 3 months. If there is | | | no improvement of the LV systolic function, he will be a candidate | | | for automatic implantable cardioverter defibrillator (AICD) | | | implantation. Otherwise, he was instructed not to lift any heavy | | | weight, not to perform any strenuous activities for the next 5 days. | | | He was also instructed to follow up with me in the office in 2 weeks. | | | Read by ELDER COOPER MD 11/05/2008 10:40 A Electronically Signed | | | by ELDER COOPER MD 11/06/2008 01:39 P A | | | P ONI/dolly/[id number]/ cc: ELDER COOPER MD | | | RYAN FREY MD | | + + + + + | Procedure Note | + + | David Mckeon - 04/14/2019 4:31 AM PDT | | [id number] Page 1 | | CARDIOLOGY CDU 673[address]/ | | OPS | | [facility] NAME: FRANCI VELÁZQUEZ | | [place] [address] | | | | DATE OF : 1945 | | | | ORDER NUMBER: [id number] | | EXAM DATE/TIME: 11/05/2008 08:22 A | | ORDERING PHYSICIAN: ELDER COOPER | | ORDER DETAIL: [id number] / / HCL | | EXAM DESCRIPTION: CCL HEART CATH LT RETRO PERC | | | | PROCEDURES | | 1. Left heart catheterization. | | 2. Left ventriculogram. | | 3. Left and right selective coronary angiography. | | 4. Angiography of the right common femoral artery for possible closure | | device deployment. | | 5. Angio-Seal closure device deployment. | | | | INDICATIONS | | This is a 63-year-old gentleman with past medical history of new onset | | congestive heart failure. He was found to have cardiomyopathy on | | echocardiogram. A stress test performed recently confirmed severe | | cardiomyopathy and left ventricular (LV) dysfunction. The patient was | | advised to undergo left heart catheterization and coronary angiography | | to rule out significant obstructive disease and rule out ischemic | | cardiomyopathy. The patient was informed about the risks, benefits, and | | alternatives of the procedure, and informed consent was obtained. | | | | DESCRIPTION OF PROCEDURE | | The patient was brought to the cardiac catheterization laboratory. He | | was prepped and sedated in the usual manner. The right groin was prepped | | and draped in the usual sterile fashion. The right groin was | | anesthetized with 10 mL of 1% lidocaine solution. A 6-Macanese arterial | | sheath was inserted into the right common femoral artery using a | | modified Seldinger technique. A 6-Macanese pigtail catheter was advanced | | over the guidewire under fluoroscopy into the proximal aorta, and the | | opening aortic pressure was obtained. The pigtail catheter was advanced | | under fluoroscopy to the left ventricular cavity, and the pressures in | | the LV cavity were measured. Dye was injected into the LV and left | | ventriculogram in the right anterior oblique (VILLALPANDO) projection was | | obtained. The pigtail catheter was then pulled back across the aortic | | valve, and the pressure gradient across the valve was recorded. The | | pigtail catheter was exchanged over the guidewire by a 6-Macanese JL4 | | catheter that was advanced over the guidewire under fluoroscopy and | | engaged to the left main artery. Dye was injected into the left coronary | | system, and multiple angiographic pictures of the left coronary system | | were taken in multiple projections. The JL4 catheter was exchanged over | | a guidewire by a 6-Macanese right coronary artery (RCA) Waqar catheter | | that was advanced over the guidewire under fluoroscopy and engaged with | | the RCA. Dye was injected into the RCA, and multiple angiographic | | pictures of the RCA were taken in multiple projections. Then, the RCA | | catheter was taken out. Angiography of the right common femoral artery | | was performed injecting dye through the side port of the arterial sheath | | in the right groin for possible closure device deployment. AngioSeal | | closure device was deployed. However, the deployment was unsuccessful. | | Manual pressure was held on the groin for 50 minutes, and successful | | hemostasis was obtained. The patient tolerated the procedure well. He | | was hemodynamically stable at the end of the procedure and had no | | immediate complications. | | | | FINDINGS | | | | HEMODYNAMICS | | The opening aortic pressure was 105/67. The LV pressure was 104/6, with | | the left ventricular end diastolic pressure (LVEDP) calculated at 60 | | mmHg. There was on significant pressure gradient recorded across the | | aortic valve upon pulling back the pigtail catheter across the valve. | | The closing aortic pressure was 99/58. | | | | LEFT VENTRICULOGRAM | | Revealed a severely-enlarged left ventricle with severe global | | hypokinesis of the left ventricle. The LV systolic function is severely | | decreased. The LV ejection fraction is estimated at 15% to 20%. No | | significant mitral regurgitation was seen. | | | | CORONARY ANGIOGRAPHY | | 1. The left main is a large-caliber vessel that trifurcates giving rise | | to the left anterior descending (LAD) and left circumflex artery as | | well as the ramus intermedius branch. The left main is free of | | disease. The LAD is a large-caliber vessel that gives rise to 4 | | diagonal branches and multiple septal branches. The LAD and its | | branches are free of disease. | | 2. The left circumflex is a large-caliber vessel that gives rise to 2 | | obtuse marginal branches. The left circumflex system is free of | | disease. The ramus intermedius branch is a large-caliber vessel that | | appears to be free of disease. | | 3. The RCA is a large-caliber dominant vessel that gives rise to the | | right posterior descending artery (PDA), posterolateral artery (ELLIE) | | and 1 right ventricular (RV) marginal branch. The RCA and its | | branches are free of disease. | | | | ESTIMATED BLOOD LOSS | | Less than 50 mL. | | | | CONCLUSION | | 1. Severe nonischemic cardiomyopathy with left ventricular ejection | | fraction estimated at 15% to 20/ | | 2. Normal epicardial coronary arteries. | | 3. Normal left ventricular pressures. | | | | PLAN | | The patient will be continued on medical treatment for congestive heart | | failure and cardiomyopathy. We will reassess his LV function by | | echocardiogram in 3 months. If there is no improvement of the LV | | systolic function, he will be a candidate for automatic implantable | | cardioverter defibrillator (AICD) implantation. Otherwise, he was | | instructed not to lift any heavy weight, not to perform any strenuous | | activities for the next 5 days. He was also instructed to follow up with | | me in the office in 2 weeks. | | | | Read by | | ELDER COOPER MD 11/05/2008 10:40 A | | Electronically Signed by | | ELDER COOPER MD 11/06/2008 01:39 P | | | | A | | P | | ONI/dolly/[id number]/ | | cc: ELDER COOPER MD | | RYAN FREY MD | + + documented in this encounter Visit Diagnoses + + | Diagnosis | + + | Chest pain, unspecified | + + documented in this encounter"
--- OUTSIDE RECORDS SUMMARY | ~2019-09-02 | XMS | Encounter Summary ---
Demographics + + + | Address | [address] | | | [place] [address] | + + + | Home Phone | | + + + | Preferred Language | Unknown | + + + | Marital Status | | + + + | Confucianist Affiliation | Unknown | + + + | Race | Unknown | + + + | Ethnic Group | Unknown | + + + Author + + + | Author | [facility] | | | and [place] | + + + | Organization | [facility] | | | [...] Team Providers + +------+ + | Care Amusement Park Entertainer Name | Role | Phone | + +------+ + PCP | Unavailable | + +------+ + Encounter Details +--------+ + + + + | Date | Type | Department | Care Team | Description | +--------+ + + + + | 01/27/ | Hospital | [facility] | Raiza Cote, | Cardiac pacemaker in | | 2009 - | Encounter | MEDICAL CENTER | MD [address] | situ | | | | CLINICAL DECISION | [address] [place] | | | 01/28/ | | [address] | [address] | | | 2009 | | [place], [place] | [phone] | | | | | [address] | | | | | | [phone] | | | +--------+ + + + [...] 2020 | Encounter | | MD Saravanan [address] | hypertension; | | | | | [place] | Abnormal nuclear | | | | | [address] | stress test; Cardiac | | | | | | resynchronization | | | | | | therapy | | | | | | defibrillator | | | | | | (TEMPLE MEAT CUTTER-D) in place; | | | | | [...] [place] | | | | | | [address] | | | | | | | | +--------+ + + + + | 09/29/ | Office | Cardiology | Poppy Rodriguez | | | 2019 | Visit | | [address] | | | | | | [address] | | | | | | [place] [address] | | | | | | [phone] | | | | | | | | +--------+ + + + + | 10/21/ | Office | Cardiology | Nav Foley, | | | 2019 | Visit | | [address] | | | | | | [place] [address] | | | | | | [phone] | | | | | | | [...] Performed At | + + + | [facility] [address] Ph: | | | Patient Name: FRANCI VELÁZQUEZ Date of : | | | 1945 Medical Record: [id number] Account: [id number] | | | Exam Date/Time: 01/27/2010 17:00 [...] - 04/13/2019 7:29 PM PDT | | [facility] | | [facility] [address] | | | | | | Patient Name: FRANCI VELÁZQUEZ | | Date of : 1945 | | Medical Record: [id number] | | Account: [id number] | | | | | | Exam Date/Time: 01/27/2010 17:00 | | Ordering Physician: ARIZA COTE | | Order Detail: [id number] | [...] Performed At | + + + | [facility] [address] Ph: | | | Patient Name: FRANCI VELÁZQUEZ Date of : | | | 1945 Medical Record: [id number] Account: [id number] | | | Exam Date/Time: 01/27/2010 14:54 [...] - 04/13/2019 7:29 PM PDT | | [facility] | | [facility] [address] | | | | | | Patient Name: FRANCI VELZÁQUEZ | | Date of : 1945 | | Medical Record: [id number] | | Account: [id number] | | | | | | Exam [...] Performed At | + + + | [id number] [facility] | | | [facility] [address] | | | , | | | CARDIOLOGY Patient Name: FRANCI VELÁZQUEZ Date of : | | | 1945 Medical Record: Account: [id number] | | | OPS/IRAMU 13[address]/ Exam Date/Time: 01/27/2010 | | | 01:00 [...] | | DESCRIPTION OF PROCEDURE Implantation of TEMPLE MEAT CUTTER/ICD was recommended. | | | Informed consent [...] cm, serial number | | | is [id number]. We found a suitable position in the [...] Medtronic 4195, serial number | | | [id number]. The right atrial lead is a Medtronic 5076, length | | | is 52 cm, serial number is [id number]. We found a suitable position | | [...] | | | delivery system using the Medtronic universal slitter. | | | Fluoroscopically, lead position remained stable. In LAWANDA projection, | | | we adjusted the amount of redundancy on the lead and sutured it in | | | place. We then removed wires and stylets. We irrigated the pocket. | | | We then took the device which is a [employer]or[employer] [id number], serial number | | | [id number]. We connected all 3 leads to the [...] 09:43 A P P | | | EDMUND/mehul/[id number]/cg | | + + + + + | Procedure Note | + + | David Mckeon Conversion - 04/13/2019 7:29 PM PDT | | [id number] | | [facility] | | [facility] [address] | | , | | CARDIOLOGY | | | | Patient Name: FRANCI VELÁZQUEZ | | Date of : 1945 | | Medical Record: [id number] | | Account: [id number] | | OPS/CDU 34906/ | | | | | | Exam [...] DESCRIPTION OF PROCEDURE | | Implantation of TEMPLE MEAT CUTTER/ICD was recommended. Informed consent was obtained. | [...] | The right ventricular lead is a [employer] 6947, length is 65 cm, serial | | number is [id number]. We found a suitable position in the [...] lead is a Medtronic 4195, serial number [id number]. | | | | | | The right atrial lead is a Medtronic 5076, length is 52 cm, serial | | number is [id number]. We found a suitable position in the [...] slitter. Fluoroscopically, lead position remained stable. In LAWANDA | | projection, we adjusted the amount of redundancy on the lead and sutured | | it in place. | | | | We then removed wires and stylets. We irrigated the pocket. We then took | | the device which is a MedTalkray [id number], serial number [id number]. We | | connected all 3 leads [...] | P | | P | | EDMUND/mehul/[id number]/cg | + + documented in this encounter Visit Diagnoses + + | Diagnosis | + + | Cardiac pacemaker in situ | + + documented in this encounter"
--- OUTSIDE RECORDS SUMMARY | ~2019-09-02 | XMS | Encounter Summary ---
Demographics + + + | Address | [address] | | | [place] [address] | + + + | Home Phone | | + + + | Preferred Language | Unknown | + + + | Marital Status | | + + + | Episcopalian Affiliation | Unknown | + + + | Race | Unknown | + + + | Ethnic Group | Unknown | + + + Author + + + | Author | [facility] | | | and [place] | + + + | Organization | [facility] | | | and [...] Team Providers + +------+ + | Care Marketing Communications Leader Name | Role | Phone | + [...] MD | oximetry) | | | | [place], | | | | | | [place] [address] | | | | | | [phone] | | | +--------+ + + + [...] Abnormal nuclear | | | | | [address] | stress test; Cardiac | | | | | | resynchronization | | | | | | therapy | | | | | | defibrillator | | | | | | (SLIP OPERATOR-D) in place; | | | | [...] [place] | | | | | | [address] | | | | | | | | +--------+ + + + + | 09/29/ | Office | Cardiology | Poppy Rodriguez | | | 2019 | Visit | | [address] | | | | | | [address] | | | | | | [place] [address] | | | | | | [phone] | | | | | | | | +--------+ + + + + | 10/21/ | Office | Cardiology | Nav Foley, | | | 2019 | Visit | | MD [address] | | | | | | [place] [address] | | | | | | [phone] | | | | | | | [...]
--- OUTSIDE RECORDS SUMMARY | ~2019-09-02 | XMS | Encounter Summary ---
Demographics + + + | Address | [address] | | | [place] [address] | + + + | Home Phone | | + + + | Preferred Language | Unknown | + + + | Marital Status | | + + + | Anglican Affiliation | Unknown | + + + | Race | Unknown | + + + | Ethnic Group | Unknown | + + + Author + + + | Author | [facility] | | | and [place] | + + + | Organization | [facility] | | [...] Team Providers + +------+ + | Care Door Framer Name | Role | Phone | + +------+ + PCP | Unavailable | + +------+ + Encounter Details +--------+ + + + + | Date | Type | Department | Care Team | Description | +--------+ + + + + | 05/17/ | Hospital | [facility] | Conversion | Cardiomyopathy | | 2014 - | Encounter | [facility]ENTER | Transaction, | ([facility]); S/P AAA | | | | CLINICAL DECISION | Provider Unknown | repair | | 05/18/ | | [address] | [phone] | | | 2014 | | [place], [place] | | | | | | [address] | Terrance Martinez MD | | | | | [phone] | PhD [address] [facility] | | | | | | [address] | | | | | | [place] [address] | | | | | | [phone] | | | | | | | [...] 1103 Date of Service: 05/18/15830 Status: Signed Building Construction Teacher: MORRO Lin (Nurse Practitioner) [facility] PATIENT NAME: Franci Velázquez : 1945: AGE: [...] Date of Service: 05/18/15 1137 Status: Signed Building Construction Teacher: Cyndee Warner RN (Registered Nurse) Patient discharge instructions were reviewed with patient at bedside. Patient states they u nderstand instructions.No concerns or questions voiced at this time. IV removed. Patient emmanuel eugene be discharging home to [place] with a ride from his friend. onver chetna Transaction, Provider Unknown - 05/18/2015 10:29 AM PDT Nurse Progress Note by Cyndee Warner RN at 05/18/15 1029 Author: Cyndee Warner RN Service: (none) Author Type: Registered Nurse Filed: 05/18/15 1030 Date of Service: 05/18/15 1029 Status: Signed Building Construction Teacher: Cyndee Warner RN (Registered Nurse) Patient c/o [...] Date of Service: 05/18/15 1018 Status: Signed Building Construction Teacher: Mackenzie Caballero RN (Registered Nurse) 05/18/15 1017 [...] y.o., male who lives alone in a [place] [facility] apartment. Pt did not identify financial, transportation, [...] 05/17/152252 Date of Service: 05/17/152250 Status: Signed Building Construction Teacher: Melva Harper RN (Registered Nurse) Called Dr [...] Abnormal nuclear | | | | | [address] | stress test; Cardiac | | | | | | resynchronization | | | | | | therapy | | | | | | defibrillator | | | | | | (INVESTIGATIVE AGENT-D) in place; | | | | | [...] | Radiology | Kimmie Wills | CV [facility] | | 2019 | | | [address] | | | | | | [place] | | | | | | [address] | | | | | | | | +--------+ + + + + | 09/29/ | Office | Cardiology | Poppy Rodriguez | | 2019 | Visit | | [address] | | | | | | [address] | | | | | | [place] [address] | | | | | | [phone] | | | | | | | | +--------+ + + + + | 10/21/ | Office | Cardiology | Nav Foley, | | 2019 | Visit | | MD [address] | | | | | | [place] [address] | | | | | | [phone] | | | | | | | [...] + + | Historically converted procedure from [facility] | EXTERNAL LAB | + + + [...] PREPROCEDURE DIAGNOSIS | | | Nonischemic cardiomyopathy, INVESTIGATIVE AGENT-D system at elective replacement | | | indicator. PROCEDURES PERFORMED 1. Periprocedural INVESTIGATIVE AGENT evaluation, | | | programming and optimization. 2. Removal of a INVESTIGATIVE AGENT pulse generator. | | | 3. Implantation of a INVESTIGATIVE AGENT pulse generator. 4. Fluoroscopic lead | | | evaluation without revision or replacement (72630). PHYSICIAN | | | Terrance Martinez MD [...] by echocardiogram April 2015, | | | Oliver Heart Association functional Class II, status severe sleep | | | apnea, recent triple aneurysm, prepare INVESTIGATIVE AGENT system presently at [facility] | | | underlying the patient's left bundle branch block with ongoing | | | depressed LV ejection fraction for which ongoing ICD protection and | | | INVESTIGATIVE AGENT therapy is indicated. The patient is referred [...] ICD, serial number | | | [id number] [id number], implanted January 27, 2010. IMPLANTED MATERIALS | | | Medtronic Viva XT INVESTIGATIVE AGENT-D, serial number [id number]. PREVIOUSLY | | | IMPLANTED LEADS Medtronic right atrial lead, 5076, 52 cm, serial | | | number [id number], implanted January 27, 2010, 4 mV P waves, impedance | | | 399 ohms, threshold 0.5 V at 0.5 msec. RV lead is a Medtronic | | | 6947, 65 cm, serial number [id number], implanted January 27, 2010, 5.5 | | | mV R waves, impedance 988 ohms, threshold 0.5 V at 0.4 msec. LV | | | lead is a Medtronic 4195, 88 cm, serial number [id number], implanted | | | January 27, 2010. We know that this is a Medtronic StarFix lead, | | | impedance 456 ohms, threshold 0.75 V at 0.4 msec. Periprocedure, | | | the patient's ICD was assessed with stored fluoroscopy in both the | | | PALAUAN and VILLALPANDO fluoroscopic views demonstrating satisfactory lead | | | positioning and no observable mechanical disruption. Vinh | | | programming is DDD 60 to 120, sleep hysteresis 50 beats per minute. | | | ECG-guided INVESTIGATIVE AGENT optimization was performed noting the prior LV offset | | | was -20. This was assessed at unpaced, 0, -20, -40. Unpaced there | | | was left bundle branch block, QRS 138, UT 178 msec. At 0 offset, QRS | [...] | the patient's equivocal clinical response to INVESTIGATIVE AGENT therapies in 2009. | | | IMPRESSION Successful replacement of a INVESTIGATIVE AGENT-D pulse generator with | | | successful INVESTIGATIVE AGENT optimization selecting an LV offset of -40 [...] | PREPROCEDURE DIAGNOSIS | | Nonischemic cardiomyopathy, INVESTIGATIVE AGENT-D system at elective replacement | | indicator. | | | | PROCEDURES PERFORMED | | 1. Periprocedural INVESTIGATIVE AGENT evaluation, programming and optimization. | | 2. Removal of a INVESTIGATIVE AGENT pulse generator. | | 3. Implantation of a INVESTIGATIVE AGENT pulse generator. | | 4. Fluoroscopic lead evaluation without revision or replacement (40281). | | | | PHYSICIAN | | [...] 35% by echocardiogram April | | 2014, Oliver Heart Association functional Class II, status severe sleep | | apnea, recent triple aneurysm, prepare INVESTIGATIVE AGENT system presently at [place] | | underlying the patient's left bundle branch block with ongoing depressed | | LV ejection fraction for which ongoing ICD protection and INVESTIGATIVE AGENT therapy is | | indicated. The patient [...] | Medtronic Bi-V ICD, serial number [id number], implanted January 27, 2010. | | | | IMPLANTED MATERIALS | | Medtronic Viva XT INVESTIGATIVE AGENT-D, serial number [id number]. | | | | PREVIOUSLY IMPLANTED LEADS | | Medtronic right atrial lead, 5076, 52 cm, serial number [id number], | | implanted January 27, 2010, 4 mV P waves, impedance 399 ohms, threshold 0.5 V | | at 0.5 msec. | | | | RV lead is a Medtronic 6947, 65 cm, serial number [id number], implanted | | January 27, 2010, 5.5 mV R waves, impedance 988 ohms, threshold 0.5 V at 0.4 | | msec. | | | | LV lead is a Medtronic 4195, 88 cm, serial number [id number], implanted | | January 27, 2010. We know that this is a Medtronic StarFix lead, impedance | | 456 ohms, threshold 0.75 V at 0.4 msec. | | | | Periprocedure, the patient's ICD was assessed with stored fluoroscopy in | | both the PALAUAN and VILLALPANDO fluoroscopic views demonstrating satisfactory lead | | positioning and no observable mechanical disruption. | | | | Vnih programming is DDD 60 to 120, sleep hysteresis 50 beats per minute. | | | | ECG-guided INVESTIGATIVE AGENT optimization was performed noting the prior LV offset was | | -20. This was assessed at unpaced, 0, -20, -40. Unpaced there was left | | bundle branch block, QRS 138, UT 178 msec. At 0 offset, QRS was [...] patient's equivocal clinical | | response to INVESTIGATIVE AGENT therapies in 2009. | | | | IMPRESSION | | Successful replacement of a INVESTIGATIVE AGENT-D pulse generator with successful INVESTIGATIVE AGENT | | optimization selecting an LV offset [...] | | | 0.43 m/s TV Dec [place]: 1.33 m/s2 TV Dec Time: 204.41 ms TV E | | | Frank: 0.27 m/s TV E/A Ratio: 0.62 Ironworker Machine Operator: PEDRITO | | | Authenticated by: Terrance [...] 148.95 mlLVLs A4C: 7.54 cmLAAs A4C: 13.83 [id number] A-L | | A4C: 39.99 mlLALs A4C: 4.06 cmAo Diam: 3.85 cmAV Cusp: 2.04 cmLA Diam: 4.15 | | cmLA/Ao: 1.07HR: 81.35 BPMAV maxP.24 mmHgAV meanP.14 mmHgAV Vmax: 0.90 | | m/Fabricio Vmean: 0.71 m/Fabricio VTI: 14.68 cmAVA Vmax: 3.26 cm2AVA (VTI): 3.58 gs7GOPH | | Dopp: 1.79 l/wdlq1AVJR Dopp: 4.25 l/minHR: 80.74 BPMLVOT maxP.51 mmHgLVOT [...] A Frank: 0.43 m/sTV Dec | | [place]: 1.33 m/s2TV Dec Time: 204.41 msTV E [place]: 0.27 m/sTV E/A Ratio: 0.62 | | Ironworker Machine Operator: PEDRITOAuthenticated by: Terrance Martinez [facility] ([place], [place]) Date/Time: 05-30-2015 15:21:28 | | IMPRESSION: 1. [...] A Frank: 0.43 m/s | |TV Dec [place]: 1.33 m/s2 | |TV Dec Time: 204.41 ms | |TV E Frank: 0.27 m/s | |TV E/A Ratio: 0.62 | | | |Ironworker Machine Operator: PEDRITO | |Authenticated by: Terrance Martinez MD [...] EXTERNAL LAB | | Testing performed at [facility];[address] [place] [address];[place] [address] MRSA PCR | | | NEGATIVE Testing performed at | | | [address];[place] [address] | | + + + + +---------+ [...] K/uL | LAB | | | | [facility];[address] | | | | [address];[place] [address] | | | | + + + + + + | RED CELL | 5.14Comment: Testing | 4.20 - 5.70 | EXTERNAL | | | COUNT | performed at [facility];[address] | M/uL | LAB | | | | [address];[place] | | | | | | [address] | | | | + + + + + + | Hgb | 15.7Comment: Testing | 13.2 - 17.0 | EXTERNAL | | | | performed at [facility];[address] | g/dL | LAB | | | | [address];[place] | | | | | | [address] | | | | + + + + + + | Hematocrit, | 47.0Comment: Testing | 39.0 - 50.0 % | EXTERNAL | | | POC | performed at [facility];[address] | | LAB | | | [address];[place] | | | | | | [address] | | | | + + + + + + | MCV | 91.3Comment: Testing | 80.0 - 100.0 fl | EXTERNAL | | | | performed at [facility];[address] | | LAB | | | [address];[place] | | | | | | [address] | | | | + + + + + + | MCH | 30.5Comment: Testing | 27.0 - 34.0 pg | EXTERNAL | | | | performed at [facility];[address] | | LAB | | | [address];[place] | | | | | | [address] | | | | + + + + + + | MCHC | 33.4Comment: Testing | 32.0 - 35.5 | EXTERNAL | | | | performed at [facility];[address] | g/dL | LAB | | | [address];[place] | | | | | | [address] | | | | + + + + + + | RDW-CV | 45.9Comment: Testing | 37 - 53 fl | EXTERNAL | | | | performed at [facility];[address] | | LAB | | | [address];[place] | | | | | | [address] | | | | + + + + + + | Platelet | 226Comment: Testing | 150 - 400 K/uL | EXTERNAL | | | Count | performed at [facility];[address] | | LAB | | | Plasma | [address];[place] | | | | | | [address] | | | | + + + + + + | MPV | 7.9Comment: Testing | fl | EXTERNAL | | | | performed at [facility];[address] | | LAB | | | [address];[place] | | | | | | [address] | | | | + + + + + + | Differentia | MANUALComment: Testing | | EXTERNAL | | | l Type | performed at [facility];[address] | | LAB | | | [address];[place] | | | | | | [address] | | | | + + + + + + | Segmented | 79Comment: Testing | % | EXTERNAL | | | Neutrophils | performed at [facility];[address] | | LAB | | | Manual | [address];[place] | | | | | | [address] | | | | + + + + + + | Lymphocytes | 10Comment: Testing | % | EXTERNAL | | | Manual | performed at [facility];[address] | | LAB | | | [address];[place] | | | | | | [address] | | | | + + + + + + | Monocytes | 11Comment: Testing | % | EXTERNAL | | | Manual | performed at [facility];[address] | | LAB | | | [address];[place] | | | | | | [address] | | | | + + + + + + | Absolute | 10.23 (H)Comment: | 1.90 - 7.40 | EXTERNAL | | | Neutrophils | Testing performed at | K/uL | LAB | | | | [facility];[address];[place] [address] | | | | + + + + + + | Absolute | 1.30Comment: Testing | 1.00 - 3.90 | EXTERNAL | | | Lymphocytes | performed at [facility];[address] | K/uL | LAB | | | | [address];[place] | | | | | | [address] | | | | + + + + + + | Absolute | 1.43 (H)Comment: Testing | 0.00 - 0.80 | EXTERNAL | | | Monocytes | performed at [facility];[address] | K/uL | LAB | | | | [address];[place] | | | | | | [address] | | | | + + + + + + | RBC | RBC AND PLT MORPHOLOGY | | EXTERNAL | | | Morphology | APPEAR NORMALComment: | | LAB | | | | Testing performed at | | | | | | [facility];[address] [place] [address] | | | | | | [facility];[place] [address] | | | | + + + [...] | | | | performed at [facility];[address] | mmol/L | LAB | | | | [address];[place] | | | | | | [address] | | | | + + + + + + | K | 4.2Comment: SLT | 3.5 - 4.9 | EXTERNAL | | | | HEMOLYSISTesting | mmol/L | LAB | | | | performed at [facility];[address] | | | | | | [address];[place] | | | | | | [address] | | | | + + + + + + | Cl | 101Comment: Testing | 99 - 109 mmol/L | EXTERNAL | | | | performed at [facility];[address] | | LAB | | | | [address];[place] | | | | | | [address] | | | | + + + + + + | CO2 | 30Comment: Testing | 23 - 32 mmol/L | EXTERNAL | | | | performed at [facility];[address] | | LAB | | | | [address];[place] | | | | | | [address] | | | | + + + + + + | Anion Gap | 11Comment: Testing | 5 - 20 mmol/L | EXTERNAL | | | | performed at [facility];[address] | | LAB | | | | [address];[place] | | | | | | [address] | | | | + + + + + + | Glucose, | 123 (H)Comment: Testing | 65 - 99 mg/dL | EXTERNAL | | | Fasting | performed at [facility];[address] | | LAB | | | | [address];[place] | | | | | | [address] | | | | + + + + + + | BUN | 14Comment: Testing | 8 - 25 mg/dL | EXTERNAL | | | | performed at [facility];[address] | | LAB | | | | [address];[place] | | | | | | [address] | | | | + + + + + + | Creatinine | 0.94Comment: Testing | 0.70 - 1.30 | EXTERNAL | | | | performed at [facility];[address] | mg/dL | LAB | | | | [address];[place] | | | | | | [address] | | | | + + + + + + | BUN/Creatin | 15Comment: Testing | | EXTERNAL | | | ine Ratio | performed at [facility];[address] | | LAB | | | | [address];[place] | | | | | | [address] | | | | + + + + + + | Calcium | 8.9Comment: Testing | 8.5 - 10.5 | EXTERNAL | | | | performed at [facility];[address] | mg/dL | LAB | | | | [address];[place], [place] | | | | | | [address] | | | | + + + [...] | | | | | at [facility];[address];[place] [address] | | | | + + + [...]
--- OUTSIDE RECORDS SUMMARY | ~2019-09-02 | XMS | Encounter Summary ---
Demographics + + + | Address | [address] | | | [place] [address] | + + + | Home Phone | | + + + | Preferred Language | Unknown | + + + | Marital Status | | + + + | Buddhism Affiliation | Unknown | + + + | Race | Unknown | + + + | Ethnic Group | Unknown | + + + Author + + + | Author | [facility] | | | and [place] | + + + | Organization | [facility] | [...] Team Providers + +------+ + | Care Equine Breeder Name | Role | Phone | + +------+ + | Carla Murphy | PCP | | | PA-C | | | + +------+ + Encounter Details +--------+ + + + + | Date | Type | Department | Care Team | Description | +--------+ + + + + | 03/12/ | Orders Only | [facility] | Provider, | Type 2 diabetes | | 2019 | | SYSTEM GENERIC OP | MD [address] | mellitus without | | | | CONVERSION [address] | [address] | complications (HCC); | | | | [address] [place], [place] | [place] [address] | Encounter for | | | | [address] | | therapeutic drug | | | | [phone] | | level monitoring | +--------+ + [...] Abnormal nuclear | | | | | [address] | stress test; Cardiac | | | | | | resynchronization | | | | | | therapy | | | | | | defibrillator | | | | | | (REFUGE WORKER-D) in place; | | | | | [...] [place] | | | | | | [address] | | | | | | | | +--------+ + + + + | 09/29/ | Office | Cardiology | Poppy Rodriguez | | | 2019 | Visit | | [address] | | | | | | [address] | | | | | | [place] [address] | | | | | | | | | | | | (Fax) | | +--------+ + + + + | 10/21/ | Office | Cardiology | Nav Foley, | | | 2019 | Visit | | MD [address] | | | | | | [place] [address] | | | | | | [phone] | | | | | | (Fax) [...]
--- OUTSIDE RECORDS SUMMARY | ~2019-09-02 | XMS | Encounter Summary ---
Demographics + + + | Address | [address] | | | [place] [address] | + + + | Home Phone [...] Team Providers + +------+ + | Care Acid Bath Mixer Name | Role | Phone | + +------+ + | Carla Murphy | PCP | | | PA-C | | | + +------+ + Reason for Visit + + + | Reason | Comments | + + + | Patient Education | | + + + Encounter Details +--------+ + + + + | Date | Type | Department | Care Team | Description | +--------+ + + + + | 07/31/ | Telephone | [facility] | Mary Tipton ANP | Patient Education | | 2019 | | CARDIOLOGY [place] | [address] | | | | | [address] | [place], [place] | | | | | [place], [place] | [address] | | | | | [address] | | | | | | [phone] | | | +--------+ + + + [...] | Encounter | | MD [address] | hypertension; | | | | | [place] | Abnormal nuclear | | | | | [address] | stress test; Cardiac | | | | | | resynchronization | | | | | | therapy | | | | | | defibrillator | | | | | | (NECK CUTTER-D) in place; | | | | [...] [place] | | | | | | [address] | | | | | | | | +--------+ + + + + | 09/29/ | Office | Cardiology | Poppy Rodriguez | | | 2019 | Visit | | [address] | | | | | | [address] | | | | | | [place] [address] | | | | | | [phone] | | | | | | | | +--------+ + + + + | 10/21/ | Office | Cardiology | Nav Foley, | | | 2019 | Visit | | [address] | | | | | | [facility] [place] [address] | | | | | | [phone] | | | | | | | | +--------+ + + + + | 11/04/ | Procedure | Cardiology | | | | 2019 | visit | | | | +--------+ + + + + documented as of this encounter Visit Diagnoses Not on filedocumented in this encounter"
--- OUTSIDE RECORDS SUMMARY | ~2019-09-02 | XMS | Encounter Summary ---
Demographics + + + | Address | [address] | | | [place] [address] | + + + | Home Phone [...] | Author | [facility] | | | and [place] | + + + | Organization | [facility] | | | and [...] Providers + +------+ + | Care Test Engine Evaluator Name | Role | Phone | + +------+ + | Carla Murphy | PCP | | | PA-C | | | + +------+ + Reason for Visit + + + | Reason | Comments | + + + | Device Check | Medtronic SACK FILLER-D remote | | (Remote) | | + + + Encounter Details +--------+ + + + + | Date | Type | Department | Care Team | Description | +--------+ + + + + | 06/02/ | Procedure | [facility] | | Non-ischemic | | 2019 | visit | CARDIOLOGY [place] | | cardiomyopathy (HCC) | | | | [address] | | (Primary Dx); | | | | [place], [place] | | Non-sustained | | | | [address] | | ventricular | | | | [phone] | | tachycardia (HCC); | | | [...] Abnormal nuclear | | | | | [address] | stress test; Cardiac | | | | | | resynchronization | | | | | | therapy | | | | | | defibrillator | | | | | | (SACK FILLER-D) in place; | | | | | [...] [place] | | | | | | [address] | | | | | | | | +--------+ + + + + | 09/29/ | Office | Cardiology | Poppy Rodriguez | | | 2019 | Visit | | [address] | | | | | | [address] | | | | | | [place] [address] | | | | | | [phone] | | | | | | | | +--------+ + + + + | 10/21/ | Office | Cardiology | Nav Foley, | | | 2019 | Visit | | [address] | | | | | | [place] [address] | | | | | | [phone] | | | | | | | [...] [place] | [place] | | Navid, Technologist 06/02/2019 9:10ICD REMOTE INTERROGATION | | | REPORT Name: Jared Blake Jarad PCP: Carla Murphy PA-C | | | : 1945MRN: [id number] Primary cardiology provider: Poppy | | | Ruby Rodriguez Primary electrophysiology provider: Constantin Chavez | | | Device financial engineer: T2 System[employer] Device type: Biventricular Battery | | | [...] | the last interrogation. Testing reviewed by: chefRossy Shoemaker | | | | | | [...] | | | | |Testing reviewed by: LYNN Shoemaker | | | | | | [...]
--- OUTSIDE RECORDS SUMMARY | ~2019-09-02 | XMS | Encounter Summary ---
Demographics + + + | Address | [address] | | | [place] [address] | + + + | Home Phone | | + + + | Preferred Language | Unknown | + + + | Marital Status | | + + + | Yazidism Affiliation | Unknown | + + + | Race | Unknown | + + + | Ethnic Group | Unknown | + + + Author + + + | Author | [facility] | | | and [place] | + + + | Organization | [facility] | | | and [...] Providers + +------+ + | Care Senior Electrical Engineer Name | Role | Phone | + +------+ + | Carla Murphy | PCP | | | PA-C | | | + +------+ + Encounter Details +--------+ + + + + | Date | Type | Department | Care Team | Description | +--------+ + + + + | 03/26/ | Hospital | [facility] | Conversion | Unknown cause of | | 2016 | Encounter | CONVERSION [address] | Transaction, | injury | | | | [address] | Provider Unknown | | | | | [place], [place] | [phone] | | | | | [address] | (Fax) | | | | | [phone] | | | +--------+ + + + [...] Abnormal nuclear | | | | | [address] | stress test; Cardiac | | | | | | resynchronization | | | | | | therapy | | | | | | defibrillator | | | | | | (RELAY MAN-D) in place; | | | | | [...] | Radiology | Kimmie Wills | [facility] | 2019 | | | MD [address] | | | | | | [place] | | | | | | [address] | | | | | | | | +--------+ + + + + | 09/29/ | Office | Cardiology | Poppy Rodriguez | | 2019 | Visit | | [address] | | | | | | [address] | | | | | | [place] [address] | | | | | | [phone] | | | | | | | | +--------+ + + + + | 10/21/ | Office | Cardiology | Nav Foley, | | | 2019 | Visit | | [address] | | | | | | [place] [address] | | | | | | [phone] | | | | | | | [...] XR CHEST 2 VIEWS | Routin | 07/12/2015 | | Results for this | | | e | 1:57 PM | | procedure are in the | | | | PST | | results section. | + +--------+ + + + documented in this encounter Results XR Chest 2 Vws (07/12/2015 1:57 PM PST) + + | Specimen | + + | | + + + + + | Narrative | Performed At | + + + | This is a non-reportable procedure without a radiologist report and | | | is used for image storage only | | + + + + + | Procedure Note | + + | David Mckeon Sameera - 04/03/2019 1:22 PM PDT This is a non-reportable procedure | | without a radiologist report and isused for image storage only | + + documented in this encounter Visit Diagnoses + + | Diagnosis | + + | Unknown cause of injury Unspecified accident | + + documented in this encounter"
--- OUTSIDE RECORDS SUMMARY | ~2019-09-02 | XMS | Encounter Summary ---
Demographics + + + | Address | [address] | | | [place] [address] | + + + | Home Phone | | + + + | Preferred Language | Unknown | + + + | Marital Status | | + + + | Jewish Affiliation | Unknown | + + + | Race | Unknown | + + + | Ethnic Group | Unknown | + + + Author + + + | Author | [facility] | | | and [place] | + + + | Organization | [facility] | | [...] Team Providers + +------+ + | Care Mercury Purifier Name | Role | Phone | + [...] + + | 07/02/ | Telephone | [facility] | Constantin Chavez, | Cardiac Problem | | 2019 | | CARDIOLOGY [place] | [address] | | | | | [address] | [place], [place] | | | | | [place], [place] | [address] | | | | | [address] | | | | | | [phone] | | | +--------+ + + + [...] Abnormal nuclear | | | | | [address] | stress test; Cardiac | | | | | | resynchronization | | | | | | therapy | | | | | | defibrillator | | | | | | (NURSE ASSESSOR-D) in place; | | | | | [...] [place] | | | | | | [address] | | | | | | | | +--------+ + + + + | 09/29/ | Office | Cardiology | Jennifer Poppy | | | 2019 | Visit | | [address] | | | | | | [address] | | | | | | [place] [address] | | | | | | [phone] | | | | | | | | +--------+ + + + + | 10/21/ | Office | Cardiology | Nav Foley, | | | 2019 | Visit | | [address] | | | | | | [place] [address] | | | | | | [phone] | | | | | | | | +--------+ + + + + | 11/04/ | Procedure | Cardiology | | | | 2019 | visit | | | | +--------+ + + + + documented as of this encounter Visit Diagnoses Not on filedocumented in this encounter"
--- OUTSIDE RECORDS SUMMARY | ~2019-09-02 | XMS | Encounter Summary ---
Demographics + + + | Address | [address] | | | [place] [address] | + + + | Home Phone [...] Team Providers + +------+ + | Care Cloth Piecer Name | Role | Phone | + +------+ + | Carla Murphy | PCP | | | PA-C | | | + +------+ + Encounter Details +--------+ + + + + | Date | Type | Department | Care Team | Description | +--------+ + + + + | 03/26/ | Hospital | [facility] | Conversion | Unknown cause of | | 2016 | Encounter | CONVERSION [address] | Transaction, | injury | | | | [address] | Provider Unknown | | | | | [place], [place] | [phone] | | | | | [address] | (Fax) | | | | | [phone] | | | +--------+ + + + [...] Abnormal nuclear | | | | | [address] | stress test; Cardiac | | | | | | resynchronization | | | | | | therapy | | | | | | defibrillator | | | | | | (REGISTERED PUBLIC SURVEYOR-D) in place; | | | | | [...] | Radiology | Kimmie Wills | [facility] | 2019 | | | MD Saravanan [address] | | | | | | [place] | | | | | | [address] | | | | | | | | +--------+ + + + + | 09/29/ | Office | Cardiology | Poppy Rodriguez | | 2019 | Visit | | [address] | | | | | | [address] | | | | | | [place] [address] | | | | | | [phone] | | | | | | | | +--------+ + + + + | 10/21/ | Office | Cardiology | Nav Foley, | | | 2019 | Visit | | [address] | | | | | | [place] [address] | | | | | | [phone] | | | | | | | [...]
--- OUTSIDE RECORDS SUMMARY | ~2019-09-02 | XMS | Encounter Summary ---
Demographics + + + | Address | [address] | | | [place] [address] | + + + | Home Phone | | + + + | Preferred Language | Unknown | + + + | Marital Status | | + + + | Jehovah'S Witness Affiliation | Unknown | + + + | Race | Unknown | + + + | Ethnic Group | Unknown | + + + Author + + + | Author | [facility] | | | and [place] | + + + | Organization | [facility] | | | [...] Providers + +------+ + | Care Manager Of Tax Name | Role | Phone | + +------+ + | Carla Murphy | PCP | | | PA-C | | | + +------+ + Encounter Details +--------+ + + + + | Date | Type | Department | Care Team | Description | +--------+ + + + + | 09/25/ | Orders Only | [facility] | Gretchen Joy, | | | 2018 | | [address] | MD [address] | | | | | [address] | [place], [place] | | | | | [place], [place] | [address] | | | | | [address] | | | | | | [phone] | | | +--------+ + + + [...] Abnormal nuclear | | | | | [address] | stress test; Cardiac | | | | | | resynchronization | | | | | | therapy | | | | | | defibrillator | | | | | | (TEXTILE TECHNOLOGIST-D) in place; | | | | | [...] | Radiology | Kimmie Wills | [facility] | | 2019 | | | MD [address] | | | | | | [place] | | | | | | [address] | | | | | | | | +--------+ + + + + | 09/29/ | Office | Cardiology | Poppy Rodriguez | | 2019 | Visit | | [address] | | | | | | [address] | | | | | | [place] [address] | | | | | | [phone] | | | | | | | | +--------+ + + + + | 10/21/ | Office | Cardiology | Nav Foley, | | 2019 | Visit | | [address] | | | | | | [place] [address] | | | | | | [phone] | | | | | | | [...] 9.77 RAP: 3 mmHg | | | Floor Mechanic: NIGEL Authenticated by: Gretchen Joy Report | | | Date/Time: 09-26-2017 7:40:19 | | + + + + ---+ | Procedure Note | + ---+ | David Mckeon Conversion - 04/10/2019 3:23 PM PDT Patient Name: Silvia VELÁZQUEZ | | of : 1945 Performing Physician: Gretchen | | Graceplatter INDICATIONS------ | | -----cardiomyopathy, aicd, beulah CONCLUSIONS [...] mlLAESV Index (A-L): 37.87 ml/m2LAAs A2C: 22.69 [id number] | | A-L A2C: 93.63 mlLALs A2C: 4.66 cmLAAs A4C: 19.88 [id number] A-L A4C: 77.98 mlLALs | | A4C: 4.30 cmRAAd: 23.19 [id number] A-L: 97.65 mlRAEDV MOD: 89.83 mlRALd: 4.67 | | cmTAPSE: 2.19 cmAV maxP.27 mmHgAV meanP.41 mmHgAV Vmax: 1.03 m/Fabricio | | Vmean: 0.73 m/Fabricio VTI: 19.23 cmAVA Vmax: 4.21 cm2AVA (VTI): 4.42 ft8BFTU Vmax: | | 0.00 cm2/m2AVAI (VTI): 0.00 cm2/m2LVOT maxP.13 mmHgLVOT meanP.63 mmHgLVSI | | Dopp: 36.18 ml/m2LVSV Dopp: 85.04 mlLVOT Vmax: 0.88 m/sLVOT Vmean: 0.61 m/sLVOT | | VTI: 17.26 cmMV E Frank: 0.83 m/sMV DecT: 110.72 msSeptal e': 0.09 m/sSeptal | | E/e': 8.70Lateral e': 0.08 m/sLateral E/e': 9.77RAP: 3 mmHg Floor Mechanic: | | DBSAuthenticated by: Gretchen [facility] Center[facility] Date/Time: 09-26-2017 7:40:19 IMPRESSION: 1. | | [...] | |RAP: 3 mmHg | | | |Floor Mechanic: NIGEL | |Authenticated by: Gretchen Joy | |Report [...]
--- OUTSIDE RECORDS SUMMARY | ~2019-09-02 | XMS | Encounter Summary ---
Demographics + + + | Address | [address] | | | [place] [address] | + + + | Home Phone [...] Providers + +------+ + | Care Classified Copy Control Clerk Name | Role | Phone | + +------+ + | Carla Murphy | PCP | | | PA-C | | | + +------+ + Encounter Details +--------+ + + + + | Date | Type | Department | Care Team | Description | +--------+ + + + + | 06/18/ | Procedure | [facility] | Nav Foley, | Palpitations | | 2019 | visit | CARDIOLOGY [place] | [address] | | | | | [address] | [place] [address] | | | | | [place], [place] | [phone] | | | | | [address] | | | | | | [phone] | | | +--------+ + + + [...] - 06/18/2019 3:00 PM PDT30 day telemetry 52503 cardiac monit or placed on patient. EOB/Billing information discussed. Instructions given and understood. Patient instructed to call [facility] for any billing or monitor questions. documented in this encounter Plan of Treatment +--------+ + + + + | Date | Type | Specialty | Care Team | Description | +--------+ + + + + | 09/17/ | Hospital | Radiology | Kimmie Wills | Essential | | 2019 | Encounter | | MD [address] | hypertension; | | | | | [place] | Abnormal nuclear | | | | | [address] | stress test; Cardiac | | | | | | resynchronization | | | | | | therapy | | | | | | defibrillator | | | | | | (MASTER RIGGER-D) in place; | | | | | [...] [place] | | | | | | [address] | | | | | | | | +--------+ + + + + | 09/29/ | Office | Cardiology | Poppy Rodriguez | | | 2019 | Visit | | [address] | | | | | | [address] | | | | | | [place] [address] | | | | | | [phone] | | | | | | | | +--------+ + + + + | 10/21/ | Office | Cardiology | Nav Foley, | | | 2019 | Visit | | [address] | | | | | | [place] [address] | | | | | | [phone] | | | | | | | [...]
--- OUTSIDE RECORDS SUMMARY | ~2019-09-02 | XMS | Encounter Summary ---
Demographics + + + | Address | [address] | | | [place] [address] | + + + | Home Phone | | + + + | Preferred Language | Unknown | + + + | Marital Status | | + + + | Zoroastrian Affiliation | Unknown | + + + | Race | Unknown | + + + | Ethnic Group | Unknown | + + + Author + + + | Author | [facility] | | | and [place] | + + + | Organization | [facility] | | [...] Team Providers + +------+ + | Care Paint Pourer Name | Role | Phone | + [...] Chiang MD | | | | | [place], | | | | | | [place] [address] | | | | | | [phone] | | | +--------+ + + + [...] Abnormal nuclear | | | | | [address] | stress test; Cardiac | | | | | | resynchronization | | | | | | therapy | | | | | | defibrillator | | | | | | (SCIENTIST PROPAGATOR-D) in place; | | | | | [...] | Radiology | Kimmie Wills | [facility] | | 2019 | | | MD [address] | | | | | | [place] | | | | | | [address] | | | | | | | | +--------+ + + + + | 09/29/ | Office | Cardiology | Poppy Rodriguez | | 2019 | Visit | | [address] | | | | | | [address] | | | | | | [place] [address] | | | | | | [phone] | | | | | | | | +--------+ + + + + | 10/21/ | Office | Cardiology | Nav Foley, | | | 2019 | Visit | | MD [address] | | | | | | [place] [address] | | | | | | [phone] | | | | | | | | +--------+ + + + + | 11/04/ | Procedure | Cardiology | | | | 2019 | visit | | | | +--------+ + + + + documented as of this encounter Visit Diagnoses Not on filedocumented in this encounter"
--- OUTSIDE RECORDS SUMMARY | ~2019-09-02 | XMS | Encounter Summary ---
Demographics + + + | Address | [address] | | | [place] [address] | + + + | Home Phone [...] Team Providers + +------+ + | Care Transmission Inspector Name | Role | Phone | [...] MD | oximetry) | | | | [place], | | | | | | [place] [address] | | | | | | [phone] | | | +--------+ + + + [...] Abnormal nuclear | | | | | [address] | stress test; Cardiac | | | | | | resynchronization | | | | | | therapy | | | | | | defibrillator | | | | | | ([employer] ADVISOR-D) in place; | | | | | [...] [place] | | | | | | [address] | | | | | | | | +--------+ + + + + | 09/29/ | Office | Cardiology | Poppy Rodriguez | | | 2019 | Visit | | [address] | | | | | | [address] | | | | | | [place] [address] | | | | | | [phone] | | | | | | | | +--------+ + + + + | 10/21/ | Office | Cardiology | Nav Foley, | | | 2019 | Visit | | MD [address] | | | | | | [place] [address] | | | | | | [phone] | | | | | | | [...]
--- OUTSIDE RECORDS SUMMARY | ~2019-09-02 | XMS | Encounter Summary ---
Demographics + + + | Address | [address] | | | [place] [address] | + + + | Home Phone | | + + + | Preferred Language | Unknown | + + + | Marital Status | | + + + | Yazidi Affiliation | Unknown | + + + [...] Team Providers + +------+ + | Care Ceramic Products Sales Engineer Name | Role | Phone | + +------+ + | Carla Murphy | PCP | | | PA-C | | | + +------+ + Encounter Details +--------+ + + + + | Date | Type | Department | Care Team | Description | +--------+ + + + + | 03/01/ | Hospital | [facility] | Off[place], | Chronic obstructive | | 2016 | Encounter | MED CTR PULMONARY | Sailaja Chiang MD | pulmonary disease, | | | | FUN[address] | | unspecified COPD | | | | [place], | | type (HCC) | | | | [place] [address] | | | | | | [phone] | | | +--------+ + + + [...] + + + +---------+ + + | umeclidinium | Inhale 1 puff into | 1 | 5 | 10/19/19 | | | (INCRUSE ELLIPTA) | the lungs Daily. | Inhaler | | 16 | 6 | | 62.5 mcg/puff | | | | | | | inhaler | | | | | | + + + +---------+ + + documented as of this encounter Plan of Treatment +--------+ + + + + | Date | Type | Specialty | Care Team | Description | +--------+ + + + + | 09/17/ | Hospital | Radiology | Kimmie Wills | Essential | | 2020 | Encounter | | MD [address] | hypertension; | | | | | [place] | Abnormal nuclear | | | | | [id number] | stress test; Cardiac | | | | | | resynchronization | | | | | | therapy | | | | | | defibrillator | | | | | | (DIPPER FISH-D) in place; | | | | | [...] | Radiology | Kimmie Wills | [facility] | | 2019 | | | MD [address]avan[address] | | | | | | [place] | | | | | | [address] | | | | | | | | +--------+ + + + + | 09/29/ | Office | Cardiology | Poppy Rodriguez | | 2019 | Visit | | [address] | | | | | | [address] | | | | | | [place] [address] | | | | | | [phone] | | | | | | | | +--------+ + + + + | 10/21/ | Office | Cardiology | Alaina Nav Anabela, | | | 2019 | Visit | | MD [address] | | | | | | [place] [address] | | | | | | [phone] | | | | | | | [...] | + +--------+ + + + | PFT PULMONARY | [facility] | 10/24/2015 | Chronic | Results for this | | FUNCTION TESTING | | 3:47 PM | obstructive | procedure are in the | | ORDERS | | PST | pulmonary disease, | results section. | | | | | unspecified COPD | | | | | | type (HCC) | | + +--------+ + + + | PFT PULMONARY | [facility] | 10/24/2015 | Chronic | Results for this | | FUNCTION TESTING | | 3:47 PM | obstructive | procedure are in the | | ORDERS | | PST | pulmonary disease, | results section. | | | | | unspecified COPD | | | | | | type (HCC) | | + +--------+ + + + | PFT PULMONARY | [facility] | 10/24/2015 | Chronic | Results for this | | FUNCTION TESTING | | 3:47 PM | obstructive | procedure are in the | | ORDERS | | PST | pulmonary disease, | results section. | | | | | unspecified COPD | | | | | | type (HCC) | | + +--------+ + + + | DIAGNOSTIC REPORT - | | 10/19/2015 | | | | EXTERNAL SCAN | | 12:00 AM | | | | | | PST | | | + +--------+ + + + documented in this encounter Results PFT PULMONARY FUNCTION TESTING ORDERS Full PFT (Matthew w/BD, lung volumes, diffusion)?: Yes (10/24/2015 3:47 [...] | | Sailaja Nicholson MD [facility]24/2015 15:44 [facility] | | [facility] CC: Carla Juarez PA-C | | + + + documented in this encounter Visit Diagnoses + + | Diagnosis | + + | Chronic obstructive pulmonary disease, unspecified COPD type (HCC) | + + documented in this encounter Administered Medications + +--------+ +--------+------+------+ | Medication Order | MAR | Action | Dose | Rate | Site | | | Action | Date | | | | + +--------+ +--------+------+------+ | albuterol 2.5 mg/3 mL nebulizer | Given | 10/19/19 | 2.5 mg | | | | solution 2.5 mg 2.5 mg, | | 16 2:40 | | | | | Nebulization, RT Once, 10/19/15 | | PM PST | | | | | at 1500, For 1 dose, RT will | | | | | | | administer., | | | | | | + +--------+ +--------+------+------+ +---+---+ | | | +---+---+ documented in this encounter"
--- OUTSIDE RECORDS SUMMARY | ~2019-09-02 | XMS | Encounter Summary ---
Demographics + + + | Address | [address] | | | [place] [address] | + + + | Home Phone | | + + + | Preferred Language | Unknown | + + + | Marital Status | | + + + | Shinto Affiliation | Unknown | + + + | Race | Unknown | + + + | Ethnic Group | Unknown | + + + Author + + + | Author | [facility] | | | and [place] | + + + | Organization | [facility] | | | [...] Team Providers + +------+ + | Care Teaching Manager Name | Role | Phone | [...] | PULMONARY [address] | RN | ([facility]) | | | | [place], | | | | | | [place] [address] | | | | | | [phone] | | | +--------+ + + + [...] Abnormal nuclear | | | | | [address] | stress test; Cardiac | | | | | | resynchronization | | | | | | therapy | | | | | | defibrillator | | | | | | (HEALTH AND WELLNESS ADVISOR-D) in place; | | | | [...] | Radiology | Kimmie Wills | [facility] | | 2019 | | | MD Saravan[address] | | | | | | [place] | | | | | | [address] | | | | | | | | +--------+ + + + + | 09/29/ | Office | Cardiology | Poppy Rodriguez | | 2019 | Visit | | [address] | | | | | | [address] | | | | | | [place] [address] | | | | | | [phone] | | | | | | | | +--------+ + + + + | 10/21/ | Office | Cardiology | Nav Foley Anabela, | | | 2019 | Visit | | MD [address] | | | | | | [facility] [address] | | | | | | [phone] | | | | | | | [...]
--- OUTSIDE RECORDS SUMMARY | ~2019-09-02 | XMS | Encounter Summary ---
Demographics + + + | Address | [address] | | | [place] [address] | + + + | Home Phone [...] + + | Author | [facility] | | | and [place] | + + + | Organization | [facility] | | | [...] Providers + +------+ + | Care Digital Court Reporter Name | Role | Phone | + +------+ + PCP | Unavailable | + +------+ + Encounter Details +--------+ + + + + | Date | Type | Department | Care Team | Description | +--------+ + + + + | 09/17/ | Hospital | [facility] | Conversion | | | 2015 | Encounter | [facility] XRAY | Transaction, | | | | | [address] | Provider Unknown | | | | | [place] | [phone] | | | | | [address] | | | | | | [phone] | | | +--------+ + + + [...] Abnormal nuclear | | | | | [address] | stress test; Cardiac | | | | | | resynchronization | | | | | | therapy | | | | | | defibrillator | | | | | | (DATA ANALYST ETL DEVELOPER-D) in place; | | | | | [...] | Radiology | Kimmie Wills | [facility] | | 2019 | | | MD [address] | | | | | | [place] | | | | | | [address] | | | | | | | | +--------+ + + + + | 09/29/ | Office | Cardiology | Poppy Rodriguez | | | 2019 | Visit | | [address] | | | | | | [address] | | | | | | [place] [address] | | | | | | [phone] | | | | | | | | +--------+ + + + + | 10/21/ | Office | Cardiology | Nav Foley, | | | 2019 | Visit | | MD [address] | | | | | | [place] [address] | | | | | | [phone] | | | | | | | | +--------+ + + + + | 11/04/ | Procedure | Cardiology | | | | 2019 | visit | | | | +--------+ + + + + documented as of this encounter Visit Diagnoses Not on filedocumented in this encounter"
--- OUTSIDE RECORDS SUMMARY | ~2019-09-02 | XMS | Encounter Summary ---
Demographics + + + | Address | [address] | | | [place] [address] | + + + | Home Phone [...] Team Providers + +------+ + | Care Chief Of Anesthesiology Name | Role | Phone | + [...] [place] | | | | | [facility] [place] | [address] | | | | | [address] | | | | | | [phone] | | | +--------+ + + + [...] Abnormal nuclear | | | | | [address] | stress test; Cardiac | | | | | | resynchronization | | | | | | therapy | | | | | | defibrillator | | | | | | (ROCKET MOTOR TESTER-D) in place; | | | | | [...] | Kimmie Wills | [facility] | | 2019 | | | MD [address]avan[address] | | | | | | [place] | | | | | | [address] | | | | | | | | +--------+ + + + + | 09/29/ | Office | Cardiology | Poppy Rodriguez | | | 2019 | Visit | | [address] | | | | | | [address] | | | | | | [place] [address] | | | | | | [phone] | | | | | | | | +--------+ + + + + | 10/21/ | Office | Cardiology | Nav Foley, | | | 2019 | Visit | | MD [address] | | | | | | [place] [address] | | | | | | [phone] | | | | | | | [...] | OF OUTSIDE FILMS | e | 7:10 PM | | procedure are in the | | | | PDT | | results section. | + +--------+ + + + documented in this encounter Results ECHO Interpretation of Outside Films (04/16/2018 7:10 PM PDT) + + | Specimen | [...] 1945 | | | Performing Physician: LIZBET LYNN MD | | | | | | [...] cm IVC: 2.44 cm EDV(Teich): 129.10 ml IVSd: | | | 1.16 cm LVIDd: 5.19 cm LVPWd: 1.13 cm LVOT Area: 5.09 | | | cm2 LVOT Diam: 2.54 cm %FS: 1.72 % EF(Teich): 3.94 % | | | ESV(Teich): 124.01 ml LVIDs: 5.10 cm SV(Teich): 5.08 ml | | | LVEF MOD A2C: 36.30 % SV MOD A2C: 106.51 ml LVEF MOD A4C: | | | 36.62 % SV MOD A4C: 92.77 ml EF Biplane: 37.21 % LVEDV MOD | | | BP: 274.16 ml LVESV MOD BP: 172.13 ml LVEDV MOD A2C: 293.38 | | | ml LVLd A2C: 9.16 cm LVEDV MOD A4C: 253.33 ml LVLd A4C: | | | 9.31 cm LVESV MOD A2C: 186.87 ml LVLs A2C: 8.32 cm LVESV MOD | | | A4C: 160.55 ml LVLs A4C: 8.32 cm LAESV(A-L): 101.76 ml | | | LAESV Index (A-L): 45.03 ml/m2 LAAs A2C: 31.66 cm2 LAESV A-L | | | A2C: 147.72 ml LALs A2C: 5.75 cm LAAs A4C: 21.81 cm2 LAESV | | | A-L A4C: 68.38 ml LALs A4C: 5.90 cm RAAs: 25.43 cm2 RAESV | | | A-L: 100.41 ml RAESV MOD: 92.04 ml RALs: [...] (VTI): 0.00 | | | cm2/m2 LVOT maxP.10 mmHg LVOT meanP.59 mmHg LVSI | | | Dopp: 37.97 ml/m2 LVSV Dopp: 85.81 ml LVOT Vmax: 0.88 m/s | | | LVOT Vmean: 0.59 m/s LVOT VTI: 16.83 cm MV A Frank: 0.65 m/s | | | MV DecT: 257.92 ms MV E Frank: 0.47 m/s MV E/A Ratio: 0.73 | | | MV PHT: 74.79 ms MVA By PHT: 2.94 cm2 Septal e': 0.04 m/s | | | Septal E/e': 11.67 Lateral e': 0.04 m/s Lateral E/e': 10.11 | | | PV maxP.92 mmHg PV Vmax: 0.99 m/s Music Copyist: | | | Authenticated by: LIZBET LYNN MD Report Date/Time: -- | | | [id number] | | + + + + + | Procedure Note | + + | Mike, Rad Conversion - 04/10/2019 3:23 PM PDT Patient Name: Silvia VELÁZQUEZ | | of : 1945 Performing Physician: LIZBET LYNN, | [...] cmLVPWd: 1.13 cmLVOT Area: | | 5.09 [id number] Diam: 2.54 cm%FS: 1.72 %EF(Teich): 3.94 %ESV(Teich): [...] (A-L): 45.03 | | ml/m2LAAs A2C: 31.66 [id number] A-L A2C: 147.72 mlLALs A2C: 5.75 cmLAAs A4C: 21.81 | | [id number] A-L A4C: 68.38 mlLALs A4C: 5.90 cmRAAs: 25.43 [id number] A-L: 100.41 | | mlRAESV MOD: 92.04 mlRALs: 5.46 cmAo Diam: 3.82 cmLA Diam: 4.65 cmLA/Ao: | | 1.21TAPSE: 2.41 cmAV maxP.90 mmHgAV meanP.40 mmHgAV Vmax: 1.21 m/Fabricio | | Vmean: 0.87 m/Fabricio VTI: 23.83 cmAVA Vmax: 3.69 cm2AVA (VTI): 3.60 va0TONC Vmax: | | 0.00 cm2/m2AVAI (VTI): 0.00 cm2/m2LVOT maxP.10 mmHgLVOT meanP.59 mmHgLVSI | | Dopp: 37.97 ml/m2LVSV Dopp: 85.81 mlLVOT Vmax: 0.88 m/sLVOT Vmean: 0.59 m/sLVOT | | VTI: 16.83 cmMV A Frank: 0.65 m/sMV DecT: 257.92 msMV E Frank: 0.47 m/sMV E/A | | Ratio: 0.73MV PHT: 74.79 msMVA By PHT: 2.94 gg0Auithn e': 0.04 m/sSeptal E/e': | | 11.67Lateral e': 0.04 m/sLateral E/e': 10.11PV maxP.92 mmHgPV Vmax: 0.99 | | m/s Music Copyist:Authenticated by: Devan LEE Date/Time: -- | | [id number]:[id number] IMPRESSION: 1. Overall left ventricular systolic function [...] |PV Vmax: 0.99 m/s | | | |Music Copyist: | |Authenticated by: LIZBET LYNN MD | |Report Date/Time: -- [id number]:34 | | | |IMPRESSION: | |1. Overall [...]
--- OUTSIDE RECORDS SUMMARY | ~2019-09-02 | XMS | Encounter Summary ---
Demographics + + + | Address | [address] | | | [place] [address] | + + + | Home Phone [...] Team Providers + +------+ + | Care External Relations Manager Name | Role | Phone | + +------+ + PCP | Unavailable | + +------+ + Encounter Details +--------+ + + + + | Date | Type | Department | Care Team | Description | +--------+ + + + + | 01/27/ | Hospital | [facility] | Raiza Cote, | Cardiac pacemaker in | | 2009 - | Encounter | MEDICAL CENTER | MD [address] | situ | | | | CLINICAL DECISION | [address] | | | 01/28/ | | [address] | [address] | | | 2009 | | [place], [place] | [phone] | | | | | [address] | | | | | | [phone] | | | +--------+ + + + [...] Abnormal nuclear | | | | | 6[address] | stress test; Cardiac | | | | | | resynchronization | | | | | | therapy | | | | | | defibrillator | | | | | | (CINDER PIT CRANE OPERATOR-D) in place; | | | | [...] [place] | | | | | | [address] | | | | | | | | +--------+ + + + + | 09/29/ | Office | Cardiology | Poppy Rodriguez | | | 2019 | Visit | | [address] | | | | | | [address] | | | | | | [place] [address] | | | | | | [phone] | | | | | | | | +--------+ + + + + | 10/21/ | Office | Cardiology | Nav Foley, | | | 2019 | Visit | | [address] | | | | | | [place] [address] | | | | | | [phone] | | | | | | | [...] Performed At | + + + | [facility] [address] Ph: | | | Patient Name: FRANCI VELÁZQUEZ Date of : | | | 1945 Medical Record: [id number] Account: [id number] | | | Exam Date/Time: 01/27/2010 17:00 [...] - 04/13/2019 7:29 PM PDT | | [facility] | | [facility] [address] | | | | | | Patient Name: FRANCI VELÁZQUEZ | | Date of : 1945 | | Medical Record: [id number] | | Account: [id number] | | | | | | Exam [...] Performed At | + + + | [facility] [address] Ph: | | | Patient Name: FRANCI VELÁZQUEZ Date of : | | | 1945 Medical Record: [id number] Account: [id number] | | | Exam Date/Time: 01/27/2010 14:54 [...] - 04/13/2019 7:29 PM PDT | | [facility] | | [facility] [address] | | | | | | Patient Name: FRANCI VELÁZQUEZ | | Date of : 1945 | | Medical Record: [id number] | | Account: [id number] | | | | | | Exam [...] Performed At | + + + | [id number] [facility] | | | [facility] [address] | | | , | | | CARDIOLOGY Patient Name: FRANCI VELÁZQUEZ Date of : | | | 1945 Medical Record: Account: [id number] | | | OPS/IRAMU [id number]/ Exam Date/Time: 01/27/2010 | | | 01:00 [...] | | DESCRIPTION OF PROCEDURE Implantation of CINDER PIT CRANE OPERATOR/ICD was recommended. | | | Informed consent [...] cm, serial number | | | is [id number]. We found a suitable position in the [...] Medtronic 4195, serial number | | | [id number]. The right atrial lead is a Medtronic 5076, length | | | is 52 cm, serial number is [id number]. We found a suitable position | | [...] then took the device which is a Deade[employer] Marksmanship [id number], serial number | | | [id number]. We connected all 3 leads to the [...] 09:43 A P P | | | EDMUND/mehul/[id number]/cg | | + + + + + | Procedure Note | + + | David Mckeon Conversion - 04/13/2019 7:29 PM PDT | | [id number] | | [facility] | | [facility] [address] | | , | | CARDIOLOGY | | | | Patient Name: FRANCI VELÁZQUEZ | | Date of : 1945 | | Medical Record: [id number] | | Account: [id number] | | OPS/CDU 09605/ | | | | | | Exam [...] DESCRIPTION OF PROCEDURE | | Implantation of CINDER PIT CRANE OPERATOR/ICD was recommended. Informed consent was obtained. | [...] | The right ventricular lead is a PredictionIOtronic 6947, length is 65 cm, serial | | number is [id number]. We found a suitable position in the [...] lead is a Medtronic 4195, serial number [id number]. | | | | | | The right atrial lead is a Medtronic 5076, length is 52 cm, serial | | number is [id number]. We found a suitable position in the [...] | | the device which is a MedConnect HQ [id number], serial number [id number]. We | | connected all 3 leads [...] | P | | P | | EDMUND/mehul/[id number]/cg | + + documented in this encounter Visit Diagnoses + + | Diagnosis | + + | Cardiac pacemaker in situ | + + documented in this encounter"
--- OUTSIDE RECORDS SUMMARY | ~2019-09-02 | XMS | Encounter Summary ---
Demographics + + + | Address | [address] | | | [place] [address] | + + + | Home Phone | | + + + | Preferred Language | Unknown | + + + | Marital Status | | + + + | Evangelical Affiliation | Unknown | + + + | Race | Unknown | + + + | Ethnic Group | Unknown | + + + Author + + + | Author | [facility] | | | and [place] | + + + | Organization | [facility] | [...] Providers + +------+ + | Care Supervisor Electronics Assembly Name | Role | Phone | + [...] | | stress test | [address] | [place] [facility] | | | | | Procedures | [address] | Med [address] | | | | | [place] Nuclear | [address] [address] | [address] | | | | | Stress Test | [place], [place] | [place] | | | | | (Vasodilator | [address] | [address] | | | | | ) | Phone: | Phone: | | | | | | [phone] | [phone] | | | | | | Fax: | Fax: | | | | | | [phone] | [phone] | + +--------+ + + + + [...] | | stress test | [address] | [place] [facility] | | | | | Procedures | [address] | Med [address] | | | | | [place] Nuclear | [address] | [address] | | | | | Stress Test | [place] | [place] | | | | | (Vasodilator | [address] | [address] | | | | | ) | Phone: | Phone: | | | | | | [phone] | [phone] | | | | | | Fax: | Fax: | | | | | | [phone] | [phone] | + +--------+ + + + + Encounter Details +--------+ + + + + | Date | Type | Department | Care Team | Description | +--------+ + + + + | 08/26/ | Hospital | [facility] | Mary Tipton ANP | Abnormal stress test | | 2020 | Encounter | CARDIOLOGY [place] | [address] | | | | | NUC MED [address] | [address], [place] | | | | | [address] | [address] | | | | | [place], [place] | | | | | | [address] | | | | | | [phone] | | | +--------+ + + + [...] Abnormal nuclear | | | | | [address] | stress test; Cardiac | | | | | | resynchronization | | | | | | therapy | | | | | | defibrillator | | | | | | (YARN WRAPPER-D) in place; | | | | | [...] [place] | | | | | | [address] | | | | | | | | +--------+ + + + + | 09/29/ | Office | Cardiology | Poppy Rodriguez | | | 2019 | Visit | | [address] | | | | | | [address] | | | | | | [place] [address] | | | | | | [phone] | | | | | | | | +--------+ + + + + | 10/21/ | Office | Cardiology | Nav Foley, | | | 2019 | Visit | | MD [address] | | | | | | [place] [address] | | | | | | [phone] | | | | | | | [...]
--- OUTSIDE RECORDS SUMMARY | ~2019-09-02 | XMS | Encounter Summary ---
Demographics + + + | Address | [address] | | | [place] [address] | + + + | Home Phone [...] | Author | [facility] | | | and [place] | + + + | Organization | [facility] | | [...] Team Providers + +------+ + | Care Motor Hotel Manager Name | Role | Phone | [...] | PULMONARY [address] | RN | ([facility]) | | | | [place], | | | | | | [place] [address] | | | | | | [phone] | | | +--------+ + + + [...] Abnormal nuclear | | | | | [address] | stress test; Cardiac | | | | | | resynchronization | | | | | | therapy | | | | | | defibrillator | | | | | | (BI ARCHITECT-D) in place; | | | | | [...] | Radiology | Kimmie Wills | [facility] | | 2019 | | | MD [address] | | | | | | [place] | | | | | | [address] | | | | | | | | +--------+ + + + + | 09/29/ | Office | Cardiology | Poppy Rodriguez | | 2019 | Visit | | [address] | | | | | | [address] | | | | | | [place] [address] | | | | | | [phone] | | | | | | | | +--------+ + + + + | 10/21/ | Office | Cardiology | Nav Foley Anabela, | | | 2019 | Visit | | MD [address] | | | | | | [facility] [address] | | | | | | [phone] | | | | | | | [...]
--- OUTSIDE RECORDS SUMMARY | ~2019-09-02 | XMS | Encounter Summary ---
Demographics + + + | Address | [address] | | | [place] [address] | + + + | Home Phone [...] Team Providers + +------+ + | Care Traditional Chinese Herbalist Name | Role | Phone | + +------+ + | Carla Murphy | PCP | | | PA-C | | | + +------+ + Reason for Visit + + + | Reason | Comments | + + + | Patient Concerns | | + + + Encounter Details +--------+ + + + + | Date | Type | Department | Care Team | Description | +--------+ + + + + | 08/07/ | Telephone | [facility] | Mary Tipton ANP | Patient Concerns | | 2019 | | CARDIOLOGY [place] | [address] | | | | | [address] | [address] [place], [place] | | | | | [place], [place] | [address] | | | | | [address] | | | | | | [phone] | | | +--------+ + + + [...] Abnormal nuclear | | | | | [address] | stress test; Cardiac | | | | | | resynchronization | | | | | | therapy | | | | | | defibrillator | | | | | | (ADJUNCT PROFESSOR OF U.S. HISTORY-D) in place; | | | | | [...] [place] | | | | | | [address] | | | | | | | | +--------+ + + + + | 09/29/ | Office | Cardiology | JenniferPoppy | | | 2019 | Visit | | [address] | | | | | | [address] | | | | | | [place] [address] | | | | | | [phone] | | | | | | | | +--------+ + + + + | 10/21/ | Office | Cardiology | Nav Foley, | | | 2019 | Visit | | [address] | | | | | | [place] [address] | | | | | | [phone] | | | | | | | | +--------+ + + + + | 11/04/ | Procedure | Cardiology | | | | 2019 | visit | | | | +--------+ + + + + documented as of this encounter Visit Diagnoses Not on filedocumented in this encounter"
--- OUTSIDE RECORDS SUMMARY | ~2019-09-02 | XMS | Encounter Summary ---
Demographics + + + | Address | [address] | | | [place] [address] | + + + | Home Phone [...] Team Providers + +------+ + | Care Marble Setter Helper Name | Role | Phone | [...] MD | oximetry) | | | | [place], | | | | | | [place] [address] | | | | | | [phone] | | | +--------+ + + + [...] Abnormal nuclear | | | | | [address] | stress test; Cardiac | | | | | | resynchronization | | | | | | therapy | | | | | | defibrillator | | | | | | (RECREATION ACTIVITIES COORDINATOR-D) in place; | | | | | [...] [place] | | | | | | [address] | | | | | | | | +--------+ + + + + | 09/29/ | Office | Cardiology | Poppy Rodriguez | | | 2019 | Visit | | [address] | | | | | | [address] | | | | | | [place] [address] | | | | | | [phone] | | | | | | | | +--------+ + + + + | 10/21/ | Office | Cardiology | Nav Foley, | | | 2019 | Visit | | MD [address] | | | | | | [place] [address] | | | | | | [phone] | | | | | | | [...]
--- OUTSIDE RECORDS SUMMARY | ~2019-09-02 | XMS | Encounter Summary ---
Demographics + + + | Address | [address] | | | [place] [address] | + + + | Home Phone | | + + + | Preferred Language | Unknown | + + + | Marital Status | | + + + | Taoism Affiliation | Unknown | + + + [...] Team Providers + +------+ + | Care Dredge Mechanic Name | Role | Phone | + +------+ + | Carla Murphy | PCP | | | PA-C | | | + +------+ + Encounter Details +--------+ + + + + | Date | Type | Department | Care Team | Description | +--------+ + + + + | 03/26/ | Hospital | [facility] | Conversion | Unknown cause of | | 2016 | Encounter | CONVERSION [address] | Transaction, | injury | | | | [address] | Provider Unknown | | | | | [place], [place] | [phone] | | | | | [address] | (Fax) | | | | | [phone] | | | +--------+ + + + [...] Abnormal nuclear | | | | | [address] | stress test; Cardiac | | | | | | resynchronization | | | | | | therapy | | | | | | defibrillator | | | | | | (VIOLIN TUTOR-D) in place; | | | | [...] | Radiology | Kimmie Wills | [facility] | 2019 | | | MD [address] | | | | | | [place] | | | | | | [address] | | | | | | | | +--------+ + + + + | 09/29/ | Office | Cardiology | Poppy Rodriguez | | 2019 | Visit | | [address] | | | | | | [address] | | | | | | [place] [address] | | | | | | [phone] | | | | | | | | +--------+ + + + + | 10/21/ | Office | Cardiology | Nav Foley, | | | 2019 | Visit | | [address] | | | | | | [place] [address] | | | | | | [phone] | | | | | | | [...]
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
--- OUTSIDE RECORDS SUMMARY | ~2019-09-02 | XMS | Encounter Summary ---
Demographics + + + | Address | [address] | | | [place] [address] | + + + | Home Phone [...] Team Providers + +------+ + | Care Wagon Person Name | Role | Phone | + +------+ + | Carla Murphy | PCP | | | PA-C | | | + +------+ + Encounter Details +--------+ + + + + | Date | Type | Department | Care Team | Description | +--------+ + + + + | 05// | Orders Only | [facility] | Gretchen Joy, | | | 2017 | | CARDIOLOGY [place] Donato MD [address] | | | | | [address] | [place], [place] | | | | | [place], [place] | [address] | | | | | [address] | | | | | | [phone] | | | +--------+ + + + [...] Abnormal nuclear | | | | | [id number] | stress test; Cardiac | | | | | | resynchronization | | | | | | therapy | | | | | | defibrillator | | | | | | (SILVER MINER-D) in place; | | | | | [...] | Radiology | Kimmie Wills | [facility] | | 2019 | | | [address] | | | | | | [place] | | | | | | [address] | | | | | | | | +--------+ + + + + | 09/29/ | Office | Cardiology | Poppy Rodriguez | | 2019 | Visit | | [address] | | | | | | [address] | | | | | | [place] [address] | | | | | | [phone] | | | | | | | | +--------+ + + + + | 10/21/ | Office | Cardiology | Nav Foley, | | 2019 | Visit | | [address] | | | | | | [place] [address] | | | | | | [phone] | | | | | | | [...]
--- OUTSIDE RECORDS SUMMARY | ~2019-09-02 | XMS | Encounter Summary ---
Demographics + + + | Address | [address] | | | [place] [address] | + + + | Home Phone [...] Providers + +------+ + | Care Manager Name | Role | Phone | + +------+ + PCP | Unavailable | + +------+ + Encounter Details +--------+ + + + + | Date | Type | Department | Care Team | Description | +--------+ + + + + | 11/05/ | Hospital | [facility] | Elder Cooper MD | Unspecified Chest | | 2008 | Encounter | [facility] | [address] | Pain | | | | CLINICAL DECISION | [address] | | | | | [address] | [place], [place] | | | | | [place], [place] | [address] | | | | | [address] | [phone] | | | | | [phone] | | | +--------+ + + + [...] Abnormal nuclear | | | | | [address] | stress test; Cardiac | | | | | | resynchronization | | | | | | therapy | | | | | | defibrillator | | | | | | (CHEMIST WATER PURIFICATION-D) in place; | | | | | [...] [place] | | | | | | [address] | | | | | | | | +--------+ + + + + | 09/29/ | Office | Cardiology | Poppy Rodriguez | | | 2019 | Visit | | [address] | | | | | | [address] | | | | | | [place] [address] | | | | | | [phone] | | | | | | | | +--------+ + + + + | 10/21/ | Office | Cardiology | Nav Foley, | | | 2019 | Visit | | MD [address] | | | | | | [place] [address] | | | | | | [phone] | | | | | | | [...] Performed At | + + + | [id number] | | | Page 1 CARDIOLOGY | | | CDU 08506/ | | | OPS [facility] | | | CENTER NAME: [facility] [place] | | | [address] | | | | | | DATE OF : 1945 | | | ORDER NUMBER: [id number] EXAM DATE/TIME: 11/05/2008 08:22 A | | [...] | | | 1% lidocaine solution. A 6-Peruvian arterial sheath was inserted into | | | the right common femoral artery using a modified Seldinger technique. | | | A 6-Peruvian pigtail catheter was advanced over the guidewire [...] was exchanged over the guidewire by a 6-Peruvian JL4 catheter that was | | | [...] a | | | guidewire by a 6-Peruvian right coronary artery (RCA) Waqar catheter | [...] 01:39 P A | | | P ONI/dolly/[id number]/ cc: ELDER COOPER MD | | | RYAN FREY MD | | + + + + + | Procedure Note | + + | David Mckeon - 04/14/2019 4:31 AM PDT | | [id number] Page 1 | | CARDIOLOGY CDU 74774/ | | OPS | | [facility] NAME: [address] | | [place] [address] | | | | DATE OF : 1945 | | | | ORDER NUMBER: [id number] | | EXAM DATE/TIME: 11/05/2008 08:22 A [...] 10 mL of 1% lidocaine solution. A 6-Peruvian arterial | | sheath was inserted into the right common femoral artery using a | | modified Seldinger technique. A 6-Peruvian pigtail catheter was advanced | | over [...] was exchanged over the guidewire by a 6-Peruvian JL4 | | catheter that was advanced over the guidewire under fluoroscopy and | | engaged to the left main artery. Dye was injected into the left coronary | | system, and multiple angiographic pictures of the left coronary system | | were taken in multiple projections. The JL4 catheter was exchanged over | | a guidewire by a 6-Peruvian right coronary artery (RCA) Waqar catheter | [...] | A | | P | | ONI/dolly/[id number]/ | | cc: ELDER COOPER MD | | RYAN FREY MD | + + documented in this encounter Visit Diagnoses + + | Diagnosis | + + | Chest pain, unspecified | + + documented in this encounter"
--- OUTSIDE RECORDS SUMMARY | ~2019-09-02 | XMS | Encounter Summary ---
Demographics + + + | Address | [address] | | | [place] [address] | + + + | Home Phone [...] Team Providers + +------+ + | Care Employment Law Attorney Name | Role | Phone | + +------+ + PCP | Unavailable | + +------+ + Encounter Details +--------+ + + + + | Date | Type | Department | Care Team | Description | +--------+ + + + + | 05/17/ | Hospital | [facility] | Conversion | Cardiomyopathy | | 2014 - | Encounter | MEDICAL CENTER | Transaction, | ([facility]); S/P AAA | | | | CLINICAL DECISION | Provider Unknown | repair | | 05/18/ | | [address] | [phone] | | | 2014 | | [place], [place] | | | | | | [address] | Terrance Martinez MD | | | | | [phone] | PhD [address] [facility] | | | | | | [address] | | | | | | [place] [address] | | | | | | [phone] | | | | | | | [...] 1103 Date of Service: 05/18/15830 Status: Signed Site Director: MORRO Lin (Nurse Practitioner) [facility] PATIENT NAME: Franci Velázquez : [...] Date of Service: 05/18/15 1137 Status: Signed Site Director: Cynede Warner RN (Registered Nurse) Patient discharge instructions were reviewed with patient at bedside. Patient states they u nderstand instructions.No concerns or questions voiced at this time. IV removed. Patient emmanuel eugene be discharging home to [place] with a ride from his friend. onver chetna Transaction, Provider Unknown - 05/18/2015 10:29 AM PDT Nurse Progress Note by Cyndee Warner RN at 05/18/15 1029 Author: Cyndee Warner RN Service: (none) Author Type: Registered Nurse Filed: 05/18/15 1030 Date of Service: 05/18/15 1029 Status: Signed Site Director: Cyndee Warner RN (Registered Nurse) Patient c/o [...] Date of Service: 05/18/15 1018 Status: Signed Site Director: Mackenzie Caballero RN (Registered Nurse) 05/18/15 1017 [...] y.o., male who lives alone in a [facility] apartment. Pt did not identify financial, [...] 05/17/152252 Date of Service: 05/17/152250 Status: Signed Site Director: Melva Harper RN (Registered Nurse) Called Dr [...] Abnormal nuclear | | | | | 5[address] | stress test; Cardiac | | | | | | resynchronization | | | | | | therapy | | | | | | defibrillator | | | | | | (RABBET OPERATOR-D) in place; | | | | [...] | Kimmie Wills | CV [facility] | | 2019 | | | [address] | | | | | | [place] | | | | | | [address] | | | | | | | | +--------+ + + + + | 09/29/ | Office | Cardiology | Poppy Rodriguez | | 2019 | Visit | | [address] | | | | | | [address] | | | | | | [place] [address] | | | | | | [phone] | | | | | | | | +--------+ + + + + | 10/21/ | Office | Cardiology | Nav Foley, | | 2019 | Visit | | MD [address] | | | | | | [place] [address] | | | | | | [phone] | | | | | | | [...] + + | Historically converted procedure from [facility] | EXTERNAL LAB | + + + [...] PREPROCEDURE DIAGNOSIS | | | Nonischemic cardiomyopathy, RABBET OPERATOR-D system at elective replacement | | | indicator. PROCEDURES PERFORMED 1. Periprocedural RABBET OPERATOR evaluation, | | | programming and optimization. 2. Removal of a RABBET OPERATOR pulse generator. | | | 3. Implantation of a RABBET OPERATOR pulse generator. 4. Fluoroscopic lead | | | evaluation without revision or replacement (54160). PHYSICIAN | | | Terrance Martinez MD [...] by echocardiogram April 2015, | | | [place] [employer] functional Class II, status severe sleep | | | apnea, recent triple aneurysm, prepare RABBET OPERATOR system presently at [facility] | | | underlying the patient's left bundle branch block with ongoing | | | depressed LV ejection fraction for which ongoing ICD protection and | | | RABBET OPERATOR therapy is indicated. The patient is referred [...] ICD, serial number | | | PUD [id number], implanted January 27, 2010. IMPLANTED MATERIALS | | | Medtronic Viva XT RABBET OPERATOR-D, serial number [id number]. PREVIOUSLY | | | IMPLANTED LEADS Medtronic right atrial lead, 5076, 52 cm, serial | | | number [id number], implanted January 27, 2010, 4 mV P waves, impedance | | | 399 ohms, threshold 0.5 V at 0.5 msec. RV lead is a Medtronic | | | 6947, 65 cm, serial number [id number], implanted January 27, 2010, 5.5 | | | mV R waves, impedance 988 ohms, threshold 0.5 V at 0.4 msec. LV | | | lead is a Medtronic 4195, 88 cm, serial number [id number], implanted | | | January 27, 2010. We know that this is a Medtronic StarFix lead, | | | impedance 456 ohms, threshold 0.75 V at 0.4 msec. Periprocedure, | | | the patient's ICD was assessed with stored fluoroscopy in both the | | | EG[place] and [place] fluoroscopic views demonstrating satisfactory lead | | | positioning and no observable mechanical disruption. Vinh | | | programming is DDD 60 to 120, sleep hysteresis 50 beats per minute. | | | ECG-guided RABBET OPERATOR optimization was performed noting the prior LV offset | | | was -20. This was assessed at unpaced, 0, -20, -40. Unpaced there | | | was left bundle branch block, QRS 138, AK 178 msec. At 0 offset, QRS | [...] | the patient's equivocal clinical response to RABBET OPERATOR therapies in 2009. | | | IMPRESSION Successful replacement of a RABBET OPERATOR-D pulse generator with | | | successful RABBET OPERATOR optimization selecting an LV offset of -40 [...] | PREPROCEDURE DIAGNOSIS | | Nonischemic cardiomyopathy, RABBET OPERATOR-D system at elective replacement | | indicator. | | | | PROCEDURES PERFORMED | | 1. Periprocedural RABBET OPERATOR evaluation, programming and optimization. | | 2. Removal of a RABBET OPERATOR pulse generator. | | 3. Implantation of a RABBET OPERATOR pulse generator. | | 4. Fluoroscopic lead evaluation without revision or replacement (69801). | | | | PHYSICIAN | | [...] 35% by echocardiogram April | | 2014, [place] [employer] functional Class II, status severe sleep | | apnea, recent triple aneurysm, prepare RABBET OPERATOR system presently at [facility] | | underlying the patient's left bundle branch block with ongoing depressed | | LV ejection fraction for which ongoing ICD protection and RABBET OPERATOR therapy is | | indicated. The patient [...] | Medtronic Bi-V ICD, serial number PUD [id number], implanted January 27, 2010. | | | | IMPLANTED MATERIALS | | Medtronic Viva XT RABBET OPERATOR-D, serial number [id number]. | | | | PREVIOUSLY IMPLANTED LEADS | | Medtronic right atrial lead, 5076, 52 cm, serial number [id number], | | implanted January 27, 2010, 4 mV P waves, impedance 399 ohms, threshold 0.5 V | | at 0.5 msec. | | | | RV lead is a Medtronic 6947, 65 cm, serial number [id number], implanted | | January 27, 2010, 5.5 mV R waves, impedance 988 ohms, threshold 0.5 V at 0.4 | | msec. | | | | LV lead is a Medtronic 4195, 88 cm, serial number [id number], implanted | | January 27, 2010. We know that this is a Medtronic StarFix lead, impedance | | 456 ohms, threshold 0.75 V at 0.4 msec. | | | | Periprocedure, the patient's ICD was assessed with stored fluoroscopy in | | both the EGYPTIAN and [place] fluoroscopic views demonstrating satisfactory lead | | positioning and no observable mechanical disruption. | | | | Vinh programming is DDD 60 to 120, sleep hysteresis 50 beats per minute. | | | | ECG-guided RABBET OPERATOR optimization was performed noting the prior LV offset was | | -20. This was assessed at unpaced, 0, -20, -40. Unpaced there was left | | bundle branch block, QRS 138, AK 178 msec. At 0 offset, QRS was [...] patient's equivocal clinical | | response to RABBET OPERATOR therapies in 2009. | | | | IMPRESSION | | Successful replacement of a RABBET OPERATOR-D pulse generator with successful RABBET OPERATOR | | optimization selecting an LV offset [...] | | | 0.43 m/s TV Dec [place]: 1.33 m/s2 TV Dec Time: 204.41 ms TV E | | | Frank: 0.27 m/s TV E/A Ratio: 0.62 Gate Services Supervisor: PEDRITO | | | Authenticated by: [...] 148.95 mlLVLs A4C: 7.54 cmLAAs A4C: 13.83 [id number] A-L | | A4C: 39.99 mlLALs A4C: 4.06 cmAo Diam: 3.85 cmAV Cusp: 2.04 cmLA Diam: 4.15 | | cmLA/Ao: 1.07HR: 81.35 BPMAV maxP.24 mmHgAV meanP.14 mmHgAV Vmax: 0.90 | | m/Fabricio Vmean: 0.71 m/Fabricio VTI: 14.68 cmAVA Vmax: 3.26 cm2AVA (VTI): 3.58 rd6AOEG | | Dopp: 1.79 l/spat4TYMC Dopp: 4.25 l/minHR: 80.74 BPMLVOT maxP.51 mmHgLVOT [...] A Frank: 0.43 m/sTV Dec | | [place]: 1.33 m/s2TV Dec Time: 204.41 msTV E Frank: 0.27 m/sTV E/A Ratio: 0.62 | | Gate Services Supervisor: PEDRITOAuthenticated by: Terrance Martinez [facility] Date/Time: 05-30-2015 15:21:28 | | IMPRESSION: [...] A Frank: 0.43 m/s | |TV Dec [place]: 1.33 m/s2 | |TV Dec Time: 204.41 ms | |TV E Frank: 0.27 m/s | |TV E/A Ratio: 0.62 | | | |Gate Services Supervisor: PEDRITO | |Authenticated by: Terrance Martinez [...] LAB | | Testing performed at [facility];[address] [place] [address];[place] [address] MRSA PCR | | | NEGATIVE Testing performed at | | | [address];[place] [address] | | + + + + +---------+ [...] | LAB | | | | [facility];[address];[place] [address] | | | | + + + + + + | RED CELL | 5.14Comment: Testing | 4.20 - 5.70 | EXTERNAL | | | COUNT | performed at [facility];[address] | M/uL | LAB | | | | [address];[place] | | | | | | [address] | | | | + + + + + + | Hgb | 15.7Comment: Testing | 13.2 - 17.0 | EXTERNAL | | | | performed at [facility];[address] | g/dL | LAB | | | | [address];[place] | | | | | | [address] | | | | + + + + + + | Hematocrit, | 47.0Comment: Testing | 39.0 - 50.0 % | EXTERNAL | | | POC | performed at [facility];[address] | | LAB | | | [address];[place] | | | | | | [address] | | | | + + + + + + | MCV | 91.3Comment: Testing | 80.0 - 100.0 fl | EXTERNAL | | | | performed at [facility];[address] | | LAB | | | [address];[place] | | | | | | [address] | | | | + + + + + + | MCH | 30.5Comment: Testing | 27.0 - 34.0 pg | EXTERNAL | | | | performed at [facility];[address] | | LAB | | | [address];[place] | | | | | | [address] | | | | + + + + + + | MCHC | 33.4Comment: Testing | 32.0 - 35.5 | EXTERNAL | | | | performed at [facility];[address] | g/dL | LAB | | | [address];[place] | | | | | | [address] | | | | + + + + + + | RDW-CV | 45.9Comment: Testing | 37 - 53 fl | EXTERNAL | | | | performed at [facility];[address] | | LAB | | | [address];[place] | | | | | | [address] | | | | + + + + + + | Platelet | 226Comment: Testing | 150 - 400 K/uL | EXTERNAL | | | Count | performed at [facility];[address] | | LAB | | | Plasma | [address];[place] | | | | | | [address] | | | | + + + + + + | MPV | 7.9Comment: Testing | fl | EXTERNAL | | | | performed at [facility];[address] | | LAB | | | [address];[place] | | | | | | [address] | | | | + + + + + + | Differentia | MANUALComment: Testing | | EXTERNAL | | | l Type | performed at [facility];[address] | | LAB | | | [address];[place] | | | | | | [address] | | | | + + + + + + | Segmented | 79Comment: Testing | % | EXTERNAL | | | Neutrophils | performed at [facility];[address] | | LAB | | | Manual | [address];[place] | | | | | | [address] | | | | + + + + + + | Lymphocytes | 10Comment: Testing | % | EXTERNAL | | | Manual | performed at [facility];[address] | | LAB | | | [address];[place] | | | | | | [address] | | | | + + + + + + | Monocytes | 11Comment: Testing | % | EXTERNAL | | | Manual | performed at [facility];[address] | | LAB | | | [address];[place] | | | | | | [address] | | | | + + + + + + | Absolute | 10.23 (H)Comment: | 1.90 - 7.40 | EXTERNAL | | | Neutrophils | Testing performed at | K/uL | LAB | | | | [facility];[address];[place] [address] | | | | + + + + + + | Absolute | 1.30Comment: Testing | 1.00 - 3.90 | EXTERNAL | | | Lymphocytes | performed at [facility];[address] | K/uL | LAB | | | | [address];[place] | | | | | | [address] | | | | + + + + + + | Absolute | 1.43 (H)Comment: Testing | 0.00 - 0.80 | EXTERNAL | | | Monocytes | performed at [facility];[address] | K/uL | LAB | | | | [address];[place] | | | | | | [address] | | | | + + + + + + | RBC | RBC AND PLT MORPHOLOGY | | EXTERNAL | | | Morphology | APPEAR NORMALComment: | | LAB | | | | Testing performed at | | | | | | [facility];[address] [place] [address] | | | | | | [facility];[place] [address] | | | | + + + [...] [facility];[address] | mmol/L | LAB | | | | [address];[place] | | | | | | [address] | | | | + + + + + + | K | 4.2Comment: SLT | 3.5 - 4.9 | EXTERNAL | | | | HEMOLYSISTesting | mmol/L | LAB | | | | performed at [facility];[address] | | | | | | [address];[place] | | | | | | [address] | | | | + + + + + + | Cl | 101Comment: Testing | 99 - 109 mmol/L | EXTERNAL | | | | performed at [facility];[address] | | LAB | | | | [address];[place] | | | | | | [address] | | | | + + + + + + | CO2 | 30Comment: Testing | 23 - 32 mmol/L | EXTERNAL | | | | performed at [facility];[address] | | LAB | | | | [address];[place] | | | | | | [address] | | | | + + + + + + | Anion Gap | 11Comment: Testing | 5 - 20 mmol/L | EXTERNAL | | | | performed at [facility];[address] | | LAB | | | | [address];[place] | | | | | | [address] | | | | + + + + + + | Glucose, | 123 (H)Comment: Testing | 65 - 99 mg/dL | EXTERNAL | | | Fasting | performed at [facility];[address] | | LAB | | | | [address];[place] | | | | | | [address] | | | | + + + + + + | BUN | 14Comment: Testing | 8 - 25 mg/dL | EXTERNAL | | | | performed at [facility];[address] | | LAB | | | [address];[place] | | | | | | [address] | | | | + + + + + + | Creatinine | 0.94Comment: Testing | 0.70 - 1.30 | EXTERNAL | | | | performed at [facility];[address] | mg/dL | LAB | | | | [address];[place] | | | | | | [address] | | | | + + + + + + | BUN/Creatin | 15Comment: Testing | | EXTERNAL | | | ine Ratio | performed at [facility];[address] | | LAB | | | | [address];[place] | | | | | | [address] | | | | + + + + + + | Calcium | 8.9Comment: Testing | 8.5 - 10.5 | EXTERNAL | | | | performed at [facility];[address] | mg/dL | LAB | | | | [address];[place], [place] | | | | | | [address] | | | | + + + [...] | | | | | at [facility];[address];[place] [address] | | | | + + + [...]
--- OUTSIDE RECORDS SUMMARY | ~2019-09-02 | XMS | Encounter Summary ---
Demographics + + + | Address | [address] | | | [place] [address] | + + + | Home Phone [...] Team Providers + +------+ + | Care Business Objects Name | Role | Phone | + +------+ + PCP | Unavailable | + +------+ + Encounter Details +--------+ + + + + | Date | Type | Department | Care Team | Description | +--------+ + + + + | 09/23/ | Hospital | [facility] | Vincent Fields MD | AAA (abdominal | | 2015 - | Encounter | [facility] | [address] | aortic aneurysm) | | | | CARE FLOOR [address] | [place], [place] | ([facility]) | | 09/24/ | | [address] | [address] | | | 2014 | | [place] | [phone] | | | | | [address] | | | | | | [phone] | | | +--------+ + + + [...] 1537 Date of Service: 09/24/14918 Status: Signed Highway Worker: MORRO Arboleda (Mario Registered Nurse Practitioner) [facility]ly [facility] Service: Vascular Surgery Discharge Summary Date of [...] heart COPD (chronic obstructive pulmonary disease) Pacemaker SOLOMON (hard of hearing) Past Surgical History Procedure [...] file. Follow up: Eloy Diez MD [address] [address] Vicnent Fields MD [address] [address] In 2 weeks post op appointment and [...] are the prescriptions that you need to peanut picker. You may get the following medications [...] Date of Service: 09/24/14 1517 Status: Signed Highway Worker: Mirna Donato RN (Registered Nurse) Pt and family received dc instruct verbal and written. They stated understanding. onver chetna Transaction, Provider Unknown - 09/24/2014 10:48 AM PST Therapy Progress Note by Waldemar Floyd PT at 09/24/14 1048 Author: Waldemar Floyd PT Service: (none) Author Type: Physical Therapist Filed: 09/24/14 1146 Date of Service: 09/24/14 1048 Status: Signed Highway Worker: Waldemar Floyd PT (Physical Therapist) 09/24/14 1048 PT Last Visit PT Received On 09/24/14 Reason for Treatment Other (comment) (AAA repair) Requires PT Follow Up No Follow up PT Only? No PT Eval/Reassessment Date 09/24/14 Assistance Required 1 person Edge Grinder Machine Needed No Home Environment Type of Home [...] was employed until recentl y at the [employer] in [place]. States that he has friends and neighbors that can assist if he would need it. Prior Function Level of [place] Independent with functional mobility;Independent with ADLs;Independe nt [...] Eval/Reassessment Date 09/24/14 Assistance Required 1 person Edge Grinder Machine Needed No Other Comments Comments Chart reviewed, [...] 09/23/141913 Date of Service: 09/23/141908 Status: Signed Highway Worker: Yoon Michele RN (Registered Nurse) Pt still [...] 09/23/141710 Date of Service: 09/23/141710 Status: Signed Highway Worker: Louise Herrera RPH (Pharmacist) Clinical Pharmacy Note: [...] 1746 Date of Service: 09/23/141699 Status: Signed Highway Worker: Yoon Michele RN (Registered Nurse) Upon arrival [...] 09/23/141727 Date of Service: 09/23/141699 Status: Signed Highway Worker: Juana Hayes Pt transferred to Cardiac Unit and bedside report given to Sabra ALLISON. In PACU repeat ACT was completed by Installer Technician RN prior to transport:. Current result 110. [...] are unchan ged. SBP low 100s. Dr. Fields notified of patients increase in pain via [...] for further assessments, interventions. Juana Hayes RN docume nted in this encounter Plan of Treatment +--------+ + + + + | Date | Type | Specialty | Care Team | Description | +--------+ + + + + | 09/17/ | Hospital | Radiology | Kimmie Wills | Essential | | 2020 | Encounter | | MD Santos CoeETHALChad | hypertension; | | | | | [place] | Abnormal nuclear | | | | | [address] | stress test; Cardiac | | | | | | resynchronization | | | | | | therapy | | | | | | defibrillator | | | | | | (BEAD PREPARER-D) in place; | | | | | [...] [place] | | | | | | [address] | | | | | | | | +--------+ + + + + | 09/29/ | Office | Cardiology | Poppy Rodriguez | | | 2019 | Visit | | [address] | | | | | | [address] | | | | | | [place] [address] | | | | | | [phone] | | | | | | | | +--------+ + + + + | 10/21/ | Office | Cardiology | Nav Foley, | | | 2019 | Visit | | [address] | | | | | | [place] [address] | | | | | | [phone] | | | | | | | [...] documented in this encounter Results External Lab: CBC (09/24/2014 4:50 AM PST) + + + + + + | Component | Value | Ref Range | Performed | Pathologist | | | | | At | Signature | + + + + + + | WBC | 23.6 (H)Comment: Testing | 3.8 - 11.0 K/uL | EXTERNAL | | | | performed at [facility], [address] | | LAB | | | | [address], | | | | | | [place] [address] | | | | + + + + + + | RED CELL | 4.36Comment: Testing | 4.20 - 5.70 | EXTERNAL | | | COUNT | performed at [facility], [address] | M/uL | LAB | | | | [address], | | | | | | [place] [address] | | | | + + + + + + | Hgb | 13.4Comment: Testing | 13.2 - 17.0 | EXTERNAL | | | | performed at [facility], [address] | g/dL | LAB | | | | [address], | | | | | | [place] [address] | | | | + + + + + + | Hematocrit, | 39.7Comment: Testing | 39.0 - 50.0 % | EXTERNAL | | | POC | performed at [facility], [address] | | LAB | | | | [address], | | | | | | [place] [address] | | | | + + + + + + | MCV | 91.0Comment: Testing | 80.0 - 100.0 fl | EXTERNAL | | | | performed at [facility], [address] | | LAB | | | | [address], | | | | | | [place] [address] | | | | + + + + + + | MCH | 30.8Comment: Testing | 27.0 - 34.0 pg | EXTERNAL | | | | performed at [facility], [address] | | LAB | | | | [address], | | | | | | [place] [address] | | | | + + + + + + | MCHC | 33.9Comment: Testing | 32.0 - 35.5 | EXTERNAL | | | | performed at [facility], [address] | g/dL | LAB | | | | [address], | | | | | | [place] [address] | | | | + + + + + + | RDW-CV | 44.6Comment: Testing | 37 - 53 fl | EXTERNAL | | | | performed at [facility], [address] | | LAB | | | | [address], | | | | | | [place] [address] | | | | + + + + + + | Platelet | 227Comment: Testing | 150 - 400 K/uL | EXTERNAL | | | Count | performed at [facility], [address] | | LAB | | | Plasma | [address], | | | | | | [place] [address] | | | | + + + + + + | MPV | 8.8Comment: Testing | fl | EXTERNAL | | | | performed at [facility], [address] | | LAB | | | | [address], | | | | | | [place] [address] | | | | + + + + + + | Differentia | MANUALComment: Testing | | EXTERNAL | | | l Type | performed at [facility], [address] | | LAB | | | | [address], | | | | | | [place], [place] [address] | | | | + + + + + + | Segmented | 80Comment: Testing | % | EXTERNAL | | | Neutrophils | performed at [facility], [address] | | LAB | | | Manual | [address], | | | | | | [place], [place] [address] | | | | + + + + + + | % Bands | 12Comment: Testing | % | EXTERNAL | | | | performed at [facility], [address] | | LAB | | | | [address], | | | | | | [place] [address] | | | | + + + + + + | Lymphocytes | 6Comment: Testing | % | EXTERNAL | | | Manual | performed at [facility], [address] | | LAB | | | | [address], | | | | | | [place] [address] | | | | + + + + + + | Monocytes | 2Comment: Testing | % | EXTERNAL | | | Manual | performed at [facility], [address] | | LAB | | | | [address], | | | | | | [place] [address] | | | | + + + + + + | Absolute | 18.9 (H)Comment: Testing | 1.9 - 7.4 K/uL | EXTERNAL | | | Neutrophils | performed at [facility], [address] | | LAB | | | | [address], | | | | | | [place] [address] | | | | + + + + + + | Bands | 2.8 (H)Comment: Testing | 0 - 0.2 K/uL | EXTERNAL | | | Manual | performed at [facility], [address] | | LAB | | | | [address], | | | | | | [place] [address] | | | | + + + + + + | Absolute | 1.4Comment: Testing | 1.0 - 3.9 K/uL | EXTERNAL | | | Lymphocytes | performed at [facility], [address] | | LAB | | | | [address], | | | | | | [place] [address] | | | | + + + + + + | Absolute | 0.5Comment: Testing | 0 - 0.8 K/uL | EXTERNAL | | | Monocytes | performed at [facility], [address] | | LAB | | | | [address], | | | | | | [place] [address] | | | | + + + + + + | RBC | RBC AND PLT MORPHOLOGY | | EXTERNAL | | | Morphology | APPEAR NORMALComment: | | LAB | | | | Testing performed at | | | | | | [facility], [address] | | | | | | [place] | | | | | | [address] | | | | + + + [...] | | | | | [place] [address] | | | | + + + + + + | K | 4.2Comment: Testing | 3.5 - 4.9 | EXTERNAL | | | | performed at [facility], [address] | mmol/L | LAB | | | | [address], | | | | | | [place] [address] | | | | + + + + + + | Cl | 101Comment: Testing | 99 - 109 mmol/L | EXTERNAL | | | | performed at [facility], [address] | | LAB | | | | [address], | | | | | | [place] [address] | | | | + + + + + + | CO2 | 28Comment: Testing | 23 - 32 mmol/L | EXTERNAL | | | | performed at [facility], [address] | | LAB | | | | [address], | | | | | | [place] [address] | | | | + + + + + + | Anion Gap | 8Comment: Testing | 5 - 20 mmol/L | EXTERNAL | | | | performed at [facility], [address] | | LAB | | | | [address], | | | | | | [place] [address] | | | | + + + + + + | Glucose, | 183 (H)Comment: Testing | 65 - 99 mg/dL | EXTERNAL | | | Fasting | performed at [facility], [address] | | LAB | | | | [address], | | | | | | [place] [address] | | | | + + + + + + | BUN | 12Comment: Testing | 8 - 25 mg/dL | EXTERNAL | | | | performed at [facility], [address] | | LAB | | | | [address], | | | | | | [place] [address] | | | | + + + + + + | Creatinine | 0.81Comment: Testing | 0.70 - 1.30 | EXTERNAL | | | | performed at [facility], [address] | mg/dL | LAB | | | | [address], | | | | | | [place] [address] | | | | + + + + + + | BUN/Creatin | 15Comment: Testing | | EXTERNAL | | | ine Ratio | performed at [facility], [address] | | LAB | | | | [address], | | | | | | [place] [address] | | | | + + + + + + | Calcium | 8.3 (L)Comment: NOTE NEW | 8.5 - 10.5 | EXTERNAL | | | | REFERENCE RANGETesting | mg/dL | LAB | | | | performed at [facility], [address] | | | | | | [address], | | | | | | [place] [address] | | | | + + + [...] | | | | | | at [facility], [address] | | | | | | [address], | | | | | | [place] [address] | | | | + + + [...] | | | Clotting | performed at [facility];888 | seconds | LAB | | | time, POC | [address];[place], [place] | | | | | | [address] | | | | + + + [...] SURGEON: | | | Vincent Fields MD PASSPORT APPLICATION EXAMINER: MORRO Arboleda ANESTHESIA: General | | | [...] | properly identified and brought to the Installer Technician. The patient was | | | placed supine on the Installer Technician table and the patient underwent general | [...] | | was upsized to a 7 Belarusian sheath. Next, a perclose device was deployed | | | at the 10:00 and 2:00 position in the right common femoral artery. | | | The 7 Belarusian sheath was then reinserted over the wire. A pigtail | | | catheter was then placed through the right sheath into the mid aorta. | | | Next, a micropuncture needle was used to access the left common | | | femoral artery. A micropuncture sheath was then inserted over wire and | | | this was upsized to a 7 Belarusian sheath. Again, a perclose device was | | | deployed at the 10:00 and 2:00 position in the left common femoral | | | artery. An Amplatz wire was then placed to the left 7 Belarusian sheath | | | with the tip of the wire in the aortic arch. Once the wire was in | | | place, the 7-Belarusian sheath was removed from the left common [...] | | placed into the right 7 haitian sheath with the tip at the aortic arch. | | | The 7 haitian sheath was then removed and upsized to a 16 haitian | | | sheath. Next, a right [...] device was then removed and a 16 haitian sheath was | | | inserted over the wire. A left iliac arteriogram was then performed | | | through the 16 Belarusian sheath and the location of the left [...] the Perclose device SURGEON: Vincent Fields MD PASSPORT APPLICATION EXAMINER: Ingrid | | MORRO Morris ANESTHESIA: General [...] identified and | | brought to the Installer Technician. The patient was placed supine on the Installer Technician table and the | | patient underwent general endotracheal anesthesia. The patient's abdomen and bilateral | | groins were then prepped and draped in the usual sterile fashion. First, a micropuncture | | needle was used to access the right common femoral artery. A micropuncture sheath was | | then inserted over wire and this was upsized to a 7 Belarusian sheath. Next, a perclose | | device was deployed at the 10:00 and 2:00 position in the right common femoral artery. | | The 7 Belarusian sheath was then reinserted over the wire. A pigtail catheter was then | | placed through the right sheath into the mid aorta. Next, a micropuncture needle was | | used to access the left common femoral artery. A micropuncture sheath was then inserted | | over wire and this was upsized to a 7 Belarusian sheath. Again, a perclose device was | | deployed at the 10:00 and 2:00 position in the left common femoral artery. An Amplatz | | wire was then placed to the left 7 Belarusian sheath with the tip of the wire in the aortic | | arch. Once the wire was in place, the 7-Belarusian sheath was removed from the left common [...] placed into the right 7 | | haitian sheath with the tip at the aortic arch. The 7 haitian sheath was then removed and | | upsized to a 16 haitian sheath. Next, a right iliac artery arteriogram [...] device was then removed and a 16 haitian sheath was inserted over the wire. A | | left iliac arteriogram was then performed through the 16 Belarusian sheath and the location | | of [...] SURGEON: | | | Vincent Fields MD PASSPORT APPLICATION EXAMINER: MORRO Arboleda ANESTHESIA: General | | | [...] | properly identified and brought to the Installer Technician. The patient was | | | placed supine on the Installer Technician table and the patient underwent general | [...] | | was upsized to a 7 Belarusian sheath. Next, a perclose device was deployed | | | at the 10:00 and 2:00 position in the right common femoral artery. | | | The 7 Belarusian sheath was then reinserted over the wire. A pigtail | | | catheter was then placed through the right sheath into the mid aorta. | | | Next, a micropuncture needle was used to access the left common | | | femoral artery. A micropuncture sheath was then inserted over wire and | | | this was upsized to a 7 Belarusian sheath. Again, a perclose device was | | | deployed at the 10:00 and 2:00 position in the left common femoral | | | artery. An Amplatz wire was then placed to the left 7 Belarusian sheath | | | with the tip of the wire in the aortic arch. Once the wire was in | | | place, the 7-Belarusian sheath was removed from the left common [...] | | placed into the right 7 haitian sheath with the tip at the aortic arch. | | | The 7 haitian sheath was then removed and upsized to a 16 haitian | | | sheath. Next, a right [...] device was then removed and a 16 haitian sheath was | | | inserted over the wire. A left iliac arteriogram was then performed | | | through the 16 Belarusian sheath and the location of the left [...] the Perclose device SURGEON: Vincent Fields MD PASSPORT APPLICATION EXAMINER: Ingrid | | MORRO Morris ANESTHESIA: General endotracheal anesthesia ESTIMATED BLOOD LOSS: Less than | | 100 mL FLUIDS: 1500 ml crystalloids CONTRAST: 85 mL of Isovue 250 INDICATIONS: MrIdris | | Jarad is a pleasant 69-year-old [...] identified and | | brought to the Installer Technician. The patient was placed supine on the Installer Technician table and the | | patient underwent general endotracheal anesthesia. The patient's abdomen and bilateral | | groins were then prepped and draped in the usual sterile fashion. First, a micropuncture | | needle was used to access the right common femoral artery. A micropuncture sheath was | | then inserted over wire and this was upsized to a 7 Belarusian sheath. Next, a perclose | | device was deployed at the 10:00 and 2:00 position in the right common femoral artery. | | The 7 Belarusian sheath was then reinserted over the wire. A pigtail catheter was then | | placed through the right sheath into the mid aorta. Next, a micropuncture needle was | | used to access the left common femoral artery. A micropuncture sheath was then inserted | | over wire and this was upsized to a 7 Belarusian sheath. Again, a perclose device was | | deployed at the 10:00 and 2:00 position in the left common femoral artery. An Amplatz | | wire was then placed to the left 7 Belarusian sheath with the tip of the wire in the aortic | | arch. Once the wire was in place, the 7-Belarusian sheath was removed from the left common [...] placed into the right 7 | | haitian sheath with the tip at the aortic arch. The 7 haitian sheath was then removed and | | upsized to a 16 haitian sheath. Next, a right iliac artery arteriogram [...] device was then removed and a 16 haitian sheath was inserted over the wire. A | | left iliac arteriogram was then performed through the 16 Belarusian sheath and the location | | of [...] | | | Clotting | performed at [facility];888 | seconds | LAB | | | time, POC | [address];[place], [place] | | | | | | [address] | | | | + + + [...] | | | Clotting | performed at [facility];888 | seconds | LAB | | | time, POC | [address];[place], [place] | | | | | | [address] | | | | + + + [...] | | | Clotting | performed at [facility];888 | seconds | LAB | | | time, POC | [address];[place] | | | | | | [address] | | | | + + + [...]
--- OUTSIDE RECORDS SUMMARY | ~2019-09-02 | XMS | Encounter Summary ---
Demographics + + + | Address | [address] | | | [place] [address] | + + + | Home Phone [...] Team Providers + +------+ + | Care Road Boss Name | Role | Phone | + [...] | | | 2015 | Coordinatio | [facility] | Sailaja Chiang MD | | | | n | INFORMATION | | | | | | MANAGEMENT | | | | | | [phone] | | | +--------+ + + + [...] | | | | | DR [place] | Abnormal nuclear | | | | | [id number] | stress test; Cardiac | | | | | | resynchronization | | | | | | therapy | | | | | | defibrillator | | | | | | (MANAGEMENT SCIENTIST-D) in place; | | | | | [...] | Radiology | Kimmie Wills | [facility] | | 2019 | | | MD Santos Coe | | | | | | [place] | | | | | | [address] | | | | | | | | +--------+ + + + + | 09/29/ | Office | Cardiology | Poppy Rodriguez | | | 2019 | Visit | | [address] | | | | | | [address] | | | | | | [place] [address] | | | | | | [phone] | | | | | | | | +--------+ + + + + | 10/21/ | Office | Cardiology | Nav Foley, | | | 2019 | Visit | | [address] | | | | | | [place] [address] | | | | | | [phone] | | | | | | | | +--------+ + + + + | 18/ | Procedure | Cardiology | | | | 2020 | visit | | | | +--------+ + + + + documented as of this encounter Visit Diagnoses Not on filedocumented in this encounter"
--- OUTSIDE RECORDS SUMMARY | ~2019-09-02 | XMS | Encounter Summary ---
Demographics + + + | Address | [address] | | | [place] [address] | + + + | Home Phone [...] Team Providers + +------+ + | Care Clinical Aide Name | Role | Phone | + [...] Chiang MD | | | | | [place], | | | | | | [place] [address] | | | | | | [phone] | | | +--------+ + + + [...] | Encounter | | MD Saravan[address] | hypertension; | | | | | [place], [place] | Abnormal nuclear | | | | | [id number] | stress test; Cardiac | | | | | | resynchronization | | | | | | therapy | | | | | | defibrillator | | | | | | (HOISTER-D) in place; | | | | | [...] | 09/17/ | Surgery | Radiology | Darindavis Roulafariba | [facility] | | 2019 | | | MD Santos Coe | | | | | | [place] | | | | | | [address] | | | | | | | | +--------+ + + + + | 09/29/ | Office | Cardiology | Poppy Rodriguez | | 2019 | Visit | | [address] | | | | | | [address] | | | | | | [place] [address] | | | | | | [phone] | | | | | | | | +--------+ + + + + | 10/21/ | Office | Cardiology | Nav Foley, | | | 2019 | Visit | | [address] | | | | | | [place] [address] | | | | | | [phone] | | | | | | | [...] + | [facility] | [address] | [place] | [phone] | | [facility] | | [address] | | | - LABORATORY | | [...] [facility] | | | | | | [facility] | | | | | | [facility] | | | | | | [facility] - | | | | | | LABORATORY | | + +-------+ + + + | Bun/Creatin | 16.5 | 6.0 - 28.6 | [facility] | | | ine | | | [facility] | | | | | | [facility]ICAL | | | | | | C[facility] - | | | | | | LABORATORY | | + +-------+ + + + | Globulin | 2.2 | 1.8 - 3.5 | [facility] | | | | | | [facility] | | | | | | [facility]ICAL | | | | | | CENTER - | | | | | | LABORATORY | | + +-------+ + + + | Albumin/Jenni | 1.7 | 1.1 - 2.4 | [facility] | | | bulin Ratio | | | [facility] | | | | | | MEDICAL [...] | + + + + + | [facility] | [address] | [place] | [phone] | | [facility] | | [address] | | | - LABORATORY | | [...] + + + + + | [facility] | [address] | [place] | [phone] | | [facility] | | [address] | | | - LABORATORY | | [...]
--- OUTSIDE RECORDS SUMMARY | ~2019-09-02 | XMS | Encounter Summary ---
Demographics + + + | Address | [address] | | | [place] [address] | + + + | Home Phone [...] Team Providers + +------+ + | Care [employer] Leak Tester Name | Role | Phone | [...] PULMONARY [address] | RN | ([facility]) | | | | [place], | | | | | | [place] [address] | | | | | | [phone] | | | +--------+ + + + [...] Abnormal nuclear | | | | | [address] | stress test; Cardiac | | | | | | resynchronization | | | | | | therapy | | | | | | defibrillator | | | | | | (SUBSTATION ENGINEER-D) in place; | | | | | [...] | Radiology | Kimmie Wills | [facility] | | 2019 | | | MD [address] | | | | | | [place] | | | | | | [address] | | | | | | | | +--------+ + + + + | 09/29/ | Office | Cardiology | Poppy Rodriguez | | 2019 | Visit | | [address] | | | | | | [address] | | | | | | [place] [address] | | | | | | [phone] | | | | | | | | +--------+ + + + + | 10/21/ | Office | Cardiology | Nav Foley Anabel[place], | | | 2019 | Visit | | MD [address] | | | | | | [facility] [place] [address] | | | | | | [phone] | | | | | | | [...]
--- OUTSIDE RECORDS SUMMARY | ~2019-09-02 | XMS | Encounter Summary ---
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) | | | | [address] | | (Primary Dx); | | | | [place], [place] | | Non-sustained | | | | [address] | | ventricular | | | | [phone] | | tachycardia (HCC); | | | [...] Abnormal nuclear | | | | | [address] | stress test; Cardiac | | | | | | resynchronization | | | | | | therapy | | | | | | defibrillator | | | | | | (CAMPUS SECURITY OFFICER-D) in place; | | | | | [...] [place] | | | | | | [address] | | | | | | | | +--------+ + + + + | 09/29/ | Office | Cardiology | Poppy Rodriguez | | | 2019 | Visit | | [address] | | | | | | [address] | | | | | | [place] [address] | | | | | | [phone] | | | | | | | | +--------+ + + + + | 10/21/ | Office | Cardiology | Nav Foley, | | | 2019 | Visit | | [address] | | | | | | [place] [address] | | | | | | [phone] | | | | | | | [...] Murphy PA-C | | | : 1945MRN: [id number] Primary cardiology provider: Poppy | | | Ruby Rodriguez Primary electrophysiology provider: Constantin Chavez | | | Device machine filler: Qwilttronic Device type: Biventricular Battery | | | [...] | the last interrogation. Testing reviewed by: furnace roasterRossy Shoemaker | | | | | | [...]
--- OUTSIDE RECORDS SUMMARY | ~2019-09-02 | XMS | Encounter Summary ---
Demographics + + + | Address | [address] | | | [place] [address] | + + + | Home Phone [...] Team Providers + +------+ + | Care Print Press Operator Name | Role | Phone | + +------+ + | Carla Murphy | PCP | | | PA-C | | | + +------+ + Encounter Details +--------+ + + + + | Date | Type | Department | Care Team | Description | +--------+ + + + + | 03/26/ | Hospital | [facility] | Conversion | Unknown cause of | | 2016 | Encounter | CONVERSION [address] | Transaction, | injury | | | | [address] | Provider Unknown | | | | | [place], [place] | [phone] | | | | | [phone] | (Fax) | | | | | [phone] | | | +--------+ + + + [...] Abnormal nuclear | | | | | [address] | stress test; Cardiac | | | | | | resynchronization | | | | | | therapy | | | | | | defibrillator | | | | | | (VEGETABLE WASHING MACHINE OPERATOR-D) in place; | | | [...] | Radiology | Kimmie Wills | [facility] | 2019 | | | MD [address] | | | | | | [place] | | | | | | [address] | | | | | | | | +--------+ + + + + | 09/29/ | Office | Cardiology | Poppy Rodriguez | | 2019 | Visit | | [address] | | | | | | [address] | | | | | | [place] [address] | | | | | | [phone] | | | | | | | | +--------+ + + + + | 10/21/ | Office | Cardiology | Nav Foley, | | | 2019 | Visit | | [address] | | | | | | [place] [address] | | | | | | [phone] | | | | | | | [...]
--- OUTSIDE RECORDS SUMMARY | ~2019-09-02 | XMS | Encounter Summary ---
Demographics + + + | Address | [address] | | | [place] [address] | + + + | Home Phone [...] Team Providers + +------+ + | Care Traffic Workforce Representative Name | Role | Phone | + [...] | | | | Poppy Beltran, | [facility] | | | | | Non-ischemic | MEDICAL OFFICE TECHNOLOGIST [address] | [address] | | | | | | [address] | [place] | | | | | cardiomyopat | [address] [address] | [place], [place] | | | | | hy (HCC) | [place], [place] | [address] | | | | | Cardiac | [address] | Phone: | | | | | resynchroniz | Phone: | [phone] | | | | | ation | [phone] | Fax: | | | | | therapy | Fax: | [phone] | | | | | defibrillato | [phone] | | | | | | r (EXECUTIVE MEETING MANAGER-D) in | | | | | | [...] + + | 07/21/ | Office | [facility] | Poppy Rodriguez | Non-ischemic | | 2019 | Visit | CARDIOLOGY [place] | [address] | cardiomyopathy (HCC) | | | | [address] | [address] | (Primary Dx); | | | | [address] | [place] [address] | Cardiac | | | | [place] | [phone] | resynchronization | | | | [address] | | therapy | | | | [phone] | | defibrillator | | | | | | (EXECUTIVE MEETING MANAGER-D) in place; | | | | [...] you an Echo to be performed at [facility] in September I made these changes [...] again with Dr. Foley is his primary net development manager, and last seen by him 06/04/2019 when [...] history of ventricular tachycardia with insertion of EXECUTIVE MEETING MANAGER-D in January 2010 and most recent generator [...] he had several Events noted from his EXECUTIVE MEETING MANAGER-D device on August 30, , September 24 [...] seen emergency room on May 26 at [facility], and note reviewed and documen [...] habits, as he usually goes to the [employer] most nights at around midnight, and will [...] PND. Poor sleep habits: Goes to the [employer] from midn ight-3 AM, usually goes to [...] due to poor activity tolerance. Lives in [place]. , lost his fiancee in 2001 when she in a car crash after being hit by distracted port c[place] a driver on a cell phone Outpatient Medications [...] or wheezing noted, respirations unl abored HEART: EXECUTIVE MEETING MANAGER-D site to CHIKA, stable to palpation, well [...] No intracranial saccular aneurysms are identifie d EXECUTIVE MEETING MANAGER-D Implant : MDT EXECUTIVE MEETING MANAGER-D by Dr. Martinez. in January 2010., Generator change by Dr. Delarosa in viva xt EXECUTIVE MEETING MANAGER D MDT number [id number].Patient has a 5076 atrial lead Medtronic. 6947 Sprin t Quattro Medtronic RV lead and 4195 Starfix Medtronic LV lead. All leads were implanted in January 2010. EXECUTIVE MEETING MANAGER-D interrogation: 06/02/2019: Battery longevity( 3 yrs, 11 months ) .DYNAMICS AX DEVELOPER 2.73 V RA pac ing 14% , [...] Congestive heart failure parameters and trends stable. EXECUTIVE MEETING MANAGER-D interrogation: 09/23/2018: Battery longevity( 3.7-5.9y) 4.8 years/2.97V.DYNAMICS AX DEVELOPER 2.73 V R A pacing 30.79 percent, RV pacing 99.04 percent, EXECUTIVE MEETING MANAGER pacing 98.92 percent. Lead impedance W NL. [...] terminated episode. No shocks. No aborted charges. EXECUTIVE MEETING MANAGER-D interrogation: 09/04/2018: Battery longevity 4.9 years/2.98 V ( DYNAMICS AX DEVELOPER 2.73V) . Lead impe ndence WNL. Thresholds [...] gained 3 pounds over a 24-hour period EXECUTIVE MEETING MANAGER-D Quick Look: 08/17/2018: ( [facility] admission for syncope) : Longevity of [...] valve not well visualized, mild to moderate FL. Echo: 09/25/2017 ([facility]): Technically adequate study. EF [...] pericardial effusion. NON CARDIAC TESTING: PFT: 10/19/2015:( [facility]'s): Spirometry: Prior to administration of inhaled bronchodilator, [...] complexes him a PVCs. Rate 72 bpm, FL 112 ms, QRS 150 ms, QTC 494 ms tracing personally reviewed by me EK10/10/2018: Atrially paced rhythm, occasional PVC. Rate 84 bpm, FL 178 ms, QRS 174 ms, QTC 531 ms him a tracing personally reviewed by me, and improved rate and less frequent PVC s and EKG performed 07/2018 EK01/28/2019: Atrially sensed by V paced rhythm. Rate 77 bpm, FL 162 ms, QRS 184 ms, QTC 506 ms, tracing personally reviewed by me. 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 Rate 104 bpm, FL 154 ms, QRS 174 ms, QTC 539 [...] evaluate his cardiomyopathy to be performed at [facility] in September. He will follow-up next with electrophysiology nurse practitioner, eliezer Grijalva april updated device interrogation on that visit. He will follow up with Dr. Foley for primar y cardiology in October. 1. Non-ischemic cardiomyopathy (HCC) 2. Cardiac resynchronization therapy defibrillator (EXECUTIVE MEETING MANAGER-D) in place 3. Non-sustained ventricular tachycardia (HCC) [...] Abnormal nuclear | | | | | [address] | stress test; Cardiac | | | | | | resynchronization | | | | | | therapy | | | | | | defibrillator | | | | | | (EXECUTIVE MEETING MANAGER-D) in place; | | | | [...] | Radiology | Kimmie Wills | [facility] | 2019 | | | MD [address] | | | | | | [place] | | | | | | [address] | | | | | | | | +--------+ + + + + | 09/29/ | Office | Cardiology | Poppy Rodriguez | 2019 | Visit | | [address] | | | | | | [address] | | | | | | [place] [address] | | | | | | [phone] | | | | | | | | +--------+ + + + + | 10/21/ | Office | Cardiology | Nav Foley, | | | 2019 | Visit | | [address] | | | | | | [place] [address] | | | | | | [phone] | | | | | | | [...] defibrillator | | | | | | (EXECUTIVE MEETING MANAGER-D) in place | | | | [...] defibrillator | | | | | | (EXECUTIVE MEETING MANAGER-D) in place | | | | [...] | | | | | by [employer] Mohler Read Only, | | | | | | ICA Pam ([id number]), | | | | | | purchase request editor Darwin Bob | | | | | | ([phone]) on 07/21/2019 | | | | | [...] + + | Cardiac resynchronization therapy defibrillator (EXECUTIVE MEETING MANAGER-D) in place | + + | [...]
--- OUTSIDE RECORDS SUMMARY | ~2019-09-02 | XMS | Encounter Summary ---
Demographics + + + | Address | [address] | | | [place] [address] | + + + | Home Phone [...] Providers + +------+ + | Care Sheet Layer Name | Role | Phone | + [...] + + | 08/07/ | Telephone | [facility] | Mary Tipton ANP | Patient Concerns | | 2019 | | CARDIOLOGY [place] | [address] | | | | | [address] | [place], [place] | | | | | [place], [place] | [address] | | | | | [address] | | | | | | [phone] | | | +--------+ + + + [...] Abnormal nuclear | | | | | [address] | stress test; Cardiac | | | | | | resynchronization | | | | | | therapy | | | | | | defibrillator | | | | | | (LICENSED SALES PRODUCER-D) in place; | | | | [...] [place] | | | | | | [address] | | | | | | | | +--------+ + + + + | 09/29/ | Office | Cardiology | JenniferPoppy | | | 2019 | Visit | | [address] | | | | | | [address] | | | | | | [place] [address] | | | | | | [phone] | | | | | | | | +--------+ + + + + | 10/21/ | Office | Cardiology | Nav Foley, | | | 2019 | Visit | | [address] | | | | | | [place] [address] | | | | | | [phone] | | | | | | | | +--------+ + + + + | 11/04/ | Procedure | Cardiology | | | | 2019 | visit | | | | +--------+ + + + + documented as of this encounter Visit Diagnoses Not on filedocumented in this encounter"
--- OUTSIDE RECORDS SUMMARY | ~2019-09-02 | XMS | Encounter Summary ---
Demographics + + + | Address | [address] | | | [place] [address] | + + + | Home Phone [...] Team Providers + +------+ + | Care Electromechanical Inspector Name | Role | Phone | + +------+ + PCP | Unavailable | + +------+ + Encounter Details +--------+ + + + + | Date | Type | Department | Care Team | Description | +--------+ + + + + | 09/17/ | Hospital | [facility] | Conversion | | | 2014 | Encounter | [facility] | Transaction, | | | | | CLINIC [address] | Provider Unknown | | | | | [place], [place] | [phone] | | | | | [address] | | | | | | [phone] | | | +--------+ + + + [...] Abnormal nuclear | | | | | [address] | stress test; Cardiac | | | | | | resynchronization | | | | | | therapy | | | | | | defibrillator | | | | | | (TURN OUT-D) in place; | | | | | [...] | Radiology | Kimmie Wills | [facility] | | 2019 | | | MD [address] | | | | | | [place] | | | | | | [address] | | | | | | | | +--------+ + + + + | 09/29/ | Office | Cardiology | Poppy Rodriguez | | | 2019 | Visit | | [address] | | | | | | [address] | | | | | | [place] [address] | | | | | | [phone] | | | | | | | | +--------+ + + + + | 10/21/ | Office | Cardiology | Nav Foley, | | | 2019 | Visit | | MD [address] | | | | | | [place] [address] | | | | | | [phone] | | | | | | | [...] Performed At | + + + | FARNCI Hooks eParachuteS XR CHEST 2 VIEW FRONTAL AND LATERAL [...] Conversion - 04/03/2019 11:51 PM PDT FRANCI WILLASM CHEST 2 VIEW | | FRONTAL AND [...] EXTERNAL LAB | | Testing performed at [facility];[address] [place] [address];[place] [address] MRSA PCR | | | NEGATIVE Testing performed at | | | [address];[place] [address] | | + + + + +---------+ [...] | | LAB | | | | Blvd;[place] [address] | | | | + + + + + + | Antibody | NEGATIVE | | EXTERNAL | | | Screen | | | LAB | | + + + + + + | Antibody | Testing performed at | | EXTERNAL | | | Screen | [facility];[address] | | LAB | | | | Blvd;[place] [address] | | | | + + + [...] | | | Patient | performed at [facility];[address] | | LAB | | | | [address];[place] | | | | | | [address] | | | | + + + [...] | | | | | performed at [facility] | | | | | | [facility];[place], [place] | | | | | | [address] | | | | + + + [...] | LAB | | | | [address], | | | | | | [place] [address] | | | | + + + + + + | RED CELL | 5.03Comment: Testing | 4.20 - 5.70 | EXTERNAL | | | COUNT | performed at [facility], [address] | M/uL | LAB | | | | [address], | | | | | | [place] [address] | | | | + + + + + + | Hgb | 15.5Comment: Testing | 13.2 - 17.0 | EXTERNAL | | | | performed at [facility], [address] | g/dL | LAB | | | | [address], | | | | | | [place] [address] | | | | + + + + + + | Hematocrit, | 45.4Comment: Testing | 39.0 - 50.0 % | EXTERNAL | | | POC | performed at [facility], [address] | | LAB | | | | [address], | | | | | | [place] [address] | | | | + + + + + + | MCV | 90.1Comment: Testing | 80.0 - 100.0 fl | EXTERNAL | | | | performed at [facility], [address] | | LAB | | | | [address], | | | | | | [place] [address] | | | | + + + + + + | MCH | 30.8Comment: Testing | 27.0 - 34.0 pg | EXTERNAL | | | | performed at [facility], [address] | | LAB | | | | [address], | | | | | | [place] [address] | | | | + + + + + + | MCHC | 34.2Comment: Testing | 32.0 - 35.5 | EXTERNAL | | | | performed at [facility], [address] | g/dL | LAB | | | | [address], | | | | | | [place] [address] | | | | + + + + + + | RDW-CV | 43.3Comment: Testing | 37 - 53 fl | EXTERNAL | | | | performed at [facility], [address] | | LAB | | | | [address], | | | | | | [place] [address] | | | | + + + + + + | Platelet | 227Comment: Testing | 150 - 400 K/uL | EXTERNAL | | | Count | performed at [facility], [address] | | LAB | | | Plasma | [address], | | | | | | [place] [address] | | | | + + + + + + | MPV | 8.6Comment: Testing | fl | EXTERNAL | | | | performed at [facility], [address] | | LAB | | | | [address], | | | | | | [place], [place] [address] | | | | + + + + + + | Differentia | MANUALComment: Testing | | EXTERNAL | | | l Type | performed at [facility], [address] | | LAB | | | | [address], | | | | | | [place], [place] [address] | | | | + + + + + + | Segmented | 83Comment: Testing | % | EXTERNAL | | | Neutrophils | performed at [facility], [address] | | LAB | | | Manual | [address], | | | | | | [place], [place] [address] | | | | + + + + + + | Lymphocytes | 11Comment: Testing | % | EXTERNAL | | | Manual | performed at [facility], [address] | | LAB | | | | [address], | | | | | | [place], [place] [address] | | | | + + + + + + | Monocytes | 5Comment: Testing | % | EXTERNAL | | | Manual | performed at [facility], [address] | | LAB | | | | [address], | | | | | | [place] [address] | | | | + + + + + + | Eosinophils | 1Comment: Testing | % | EXTERNAL | | | Manual | performed at [facility], [address] | | LAB | | | | [address], | | | | | | [place] [address] | | | | + + + + + + | Absolute | 12.2 (H)Comment: Testing | 1.9 - 7.4 K/uL | EXTERNAL | | | Neutrophils | performed at [facility], [address] | | LAB | | | | [address], | | | | | | [place] [address] | | | | + + + + + + | Absolute | 1.6Comment: Testing | 1.0 - 3.9 K/uL | EXTERNAL | | | Lymphocytes | performed at [facility], [address] | | LAB | | | | [address], | | | | | | [place] [address] | | | | + + + + + + | Absolute | 0.7Comment: Testing | 0 - 0.8 K/uL | EXTERNAL | | | Monocytes | performed at [facility], [address] | | LAB | | | | [address], | | | | | | [place] [address] | | | | + + + + + + | Absolute | 0.1Comment: Testing | 0 - 0.5 K/uL | EXTERNAL | | | Eosinophils | performed at [facility], [address] | | LAB | | | | [address], | | | | | | [place] [address] | | | | + + + + + + | RBC | RBC AND PLT MORPHOLOGY | | EXTERNAL | | | Morphology | APPEAR NORMALComment: | | LAB | | | | Testing performed at | | | | | | [facility], [address] | | | | | | [place] | | | | | | [address] | | | | + + + [...] | | | | | [place] [address] | | | | + + + + + + | K | 4.2Comment: Testing | 3.5 - 4.9 | EXTERNAL | | | | performed at [facility], [address] | mmol/L | LAB | | | | [address], | | | | | | [place] [address] | | | | + + + + + + | Cl | 98 (L)Comment: Testing | 99 - 109 mmol/L | EXTERNAL | | | | performed at [facility], [address] | | LAB | | | | [address], | | | | | | [place] [address] | | | | + + + + + + | CO2 | 31Comment: Testing | 23 - 32 mmol/L | EXTERNAL | | | | performed at [facility], [address] | | LAB | | | | [address], | | | | | | [place] [address] | | | | + + + + + + | Anion Gap | 9Comment: Testing | 5 - 20 mmol/L | EXTERNAL | | | | performed at [facility], [address] | | LAB | | | | [address], | | | | | | [place] [address] | | | | + + + + + + | Glucose, | 115 (H)Comment: Testing | 65 - 99 mg/dL | EXTERNAL | | | Fasting | performed at [facility], [address] | | LAB | | | | [address], | | | | | | [place] [address] | | | | + + + + + + | BUN | 16Comment: Testing | 8 - 25 mg/dL | EXTERNAL | | | | performed at [facility], [address] | | LAB | | | | [address], | | | | | | [place] [address] | | | | + + + + + + | Creatinine | 0.98Comment: Testing | 0.70 - 1.30 | EXTERNAL | | | | performed at [facility], [address] | mg/dL | LAB | | | | [address], | | | | | | [place] [address] | | | | + + + + + + | BUN/Creatin | 16Comment: Testing | | EXTERNAL | | | ine Ratio | performed at [facility], [address] | | LAB | | | | [address], | | | | | | [place] [address] | | | | + + + + + + | Calcium | 9.9Comment: NOTE NEW | 8.5 - 10.5 | EXTERNAL | | | | REFERENCE RANGETesting | mg/dL | LAB | | | | performed at [facility], [address] | | | | | | [facility], | | | | | | [place] [address] | | | | + + + [...] | | | | | | at [facility], [address] | | | | | | [facility], | | | | | | [place] [address] | | | | + + + [...] + + | Historically converted procedure from [facility] Epic environment | EXTERNAL LAB [...]
--- OUTSIDE RECORDS SUMMARY | ~2019-09-02 | XMS | Encounter Summary ---
Demographics + + + | Address | [address] | | | [place] [address] | + + + | Home Phone [...] Team Providers + +------+ + | Care Rn Diabetes Name | Role | Phone | + +------+ + PCP | Unavailable | + +------+ + Encounter Details +--------+ + + + + | Date | Type | Department | Care Team | Description | +--------+ + + + + | 09/23/ | Hospital | [facility] | Vincent Fields MD | AAA (abdominal | | 2015 - | Encounter | [facility] | [address] | aortic aneurysm) | | | | CARE FLOOR [address] | [place] [address] [place], [place] | ([facility]) | | 09/24/ | | [address] | [address] | | | 2014 | | [place] | [phone] | | | | | [address] | | | | | | [phone] | | | +--------+ + + + [...] 1537 Date of Service: 09/24/14918 Status: Signed Fabrication Inspector: MORRO Arboleda (Mario Registered Nurse Practitioner) [facility] Service: Vascular Surgery Discharge Summary Date [...] heart COPD (chronic obstructive pulmonary disease) Pacemaker [place] (hard of hearing) Past Surgical History Procedure [...] file. Follow up: Eloy Diez MD [address] [address] Vincent Fields MD [address] [place] [address] In 2 weeks post op appointment and [...] are the prescriptions that you need to miner pick. You may get the following medications from [...] Date of Service: 09/24/14 1517 Status: Signed Fabrication Inspector: Mirna Donato RN (Registered Nurse) Pt and family received dc instruct verbal and written. They stated understanding. onver chetna Transaction, Provider Unknown - 09/24/2014 10:48 AM PST Therapy Progress Note by Waldemar Floyd PT at 09/24/14 1048 Author: Waldemar Floyd PT Service: (none) Author Type: Physical Therapist Filed: 09/24/14 1146 Date of Service: 09/24/14 1048 Status: Signed Fabrication Inspector: Waldemar Floyd PT (Physical Therapist) 09/24/14 1048 PT Last Visit PT Received On 09/24/14 Reason for Treatment Other (comment) (AAA repair) Requires PT Follow Up No Follow up PT Only? No PT Eval/Reassessment Date 09/24/14 Assistance Required 1 person Bridal Consultant Needed No Home Environment Type of Home [...] was employed until recentl y at the [employer] in [place]. States that he has friends and neighbors that can assist if he would need it. Prior Function Level of [place] Independent with functional mobility;Independent with ADLs;Independe nt [...] Eval/Reassessment Date 09/24/14 Assistance Required 1 person Bridal Consultant Needed No Other Comments Comments Chart reviewed, [...] 09/23/141913 Date of Service: 09/23/141908 Status: Signed Fabrication Inspector: Yoon Michele RN (Registered Nurse) Pt still [...] 09/23/141710 Date of Service: 09/23/141710 Status: Signed Fabrication Inspector: Louise Herrera RPH (Pharmacist) Clinical Pharmacy Note: [...] 1746 Date of Service: 09/23/141699 Status: Signed Fabrication Inspector: Yoon Michele RN (Registered Nurse) Upon arrival [...] 09/23/141727 Date of Service: 09/23/141699 Status: Signed Fabrication Inspector: Juana Hayes Pt transferred to Cardiac Unit and bedside report given to Sabra ALLISON. In PACU repeat ACT was completed by Videotape Editor RN prior to transport:. Current result 110. [...] Abnormal nuclear | | | | | [address] | stress test; Cardiac | | | | | | resynchronization | | | | | | therapy | | | | | | defibrillator | | | | | | (FISHERIES MANAGEMENT BIOLOGIST-D) in place; | | | | | [...] [place] | | | | | | [address] | | | | | | | | +--------+ + + + + | 09/29/ | Office | Cardiology | Poppy Rodriguez | | | 2019 | Visit | | [address] | | | | | | [address] | | | | | | [place] [address] | | | | | | [phone] | | | | | | | | +--------+ + + + + | 10/21/ | Office | Cardiology | Nav Foley, | | | 2019 | Visit | | [address] | | | | | | [place] [address] | | | | | | [phone] | | | | | | | [...] EXTERNAL | | | | performed at [facility], [address] | | LAB | | | | [address], | | | | | | [place] [address] | | | | + + + + + + | RED CELL | 4.36Comment: Testing | 4.20 - 5.70 | EXTERNAL | | | COUNT | performed at [facility], [address] | M/uL | LAB | | | | [address], | | | | | | [place] [address] | | | | + + + + + + | Hgb | 13.4Comment: Testing | 13.2 - 17.0 | EXTERNAL | | | | performed at [facility], [address] | g/dL | LAB | | | | [address], | | | | | | [place] [address] | | | | + + + + + + | Hematocrit, | 39.7Comment: Testing | 39.0 - 50.0 % | EXTERNAL | | | POC | performed at [facility], [address] | | LAB | | | | [address], | | | | | | [place] [address] | | | | + + + + + + | MCV | 91.0Comment: Testing | 80.0 - 100.0 fl | EXTERNAL | | | | performed at [facility], [address] | | LAB | | | | [address], | | | | | | [place] [address] | | | | + + + + + + | MCH | 30.8Comment: Testing | 27.0 - 34.0 pg | EXTERNAL | | | | performed at [facility], [address] | | LAB | | | | [address], | | | | | | [place] [address] | | | | + + + + + + | MCHC | 33.9Comment: Testing | 32.0 - 35.5 | EXTERNAL | | | | performed at [facility], [address] | g/dL | LAB | | | | [address], | | | | | | [place] [address] | | | | + + + + + + | RDW-CV | 44.6Comment: Testing | 37 - 53 fl | EXTERNAL | | | | performed at [facility], [address] | | LAB | | | | [address], | | | | | | [place] [address] | | | | + + + + + + | Platelet | 227Comment: Testing | 150 - 400 K/uL | EXTERNAL | | | Count | performed at [facility], [address] | | LAB | | | Plasma | [address], | | | | | | [place] [address] | | | | + + + + + + | MPV | 8.8Comment: Testing | fl | EXTERNAL | | | | performed at [facility], [address] | | LAB | | | | [address], | | | | | | [place] [address] | | | | + + + + + + | Differentia | MANUALComment: Testing | | EXTERNAL | | | l Type | performed at [facility], [address] | | LAB | | | | [address], | | | | | | [place], [place] [address] | | | | + + + + + + | Segmented | 80Comment: Testing | % | EXTERNAL | | | Neutrophils | performed at [facility], [address] | | LAB | | | Manual | [address], | | | | | | [place], [place] [address] | | | | + + + + + + | % Bands | 12Comment: Testing | % | EXTERNAL | | | | performed at [facility], [address] | | LAB | | | | [address], | | | | | | [place] [address] | | | | + + + + + + | Lymphocytes | 6Comment: Testing | % | EXTERNAL | | | Manual | performed at [facility], [address] | | LAB | | | | [address], | | | | | | [place] [address] | | | | + + + + + + | Monocytes | 2Comment: Testing | % | EXTERNAL | | | Manual | performed at [facility], [address] | | LAB | | | | [address], | | | | | | [place] [address] | | | | + + + + + + | Absolute | 18.9 (H)Comment: Testing | 1.9 - 7.4 K/uL | EXTERNAL | | | Neutrophils | performed at [facility], [address] | | LAB | | | | [address], | | | | | | [place] [address] | | | | + + + + + + | Bands | 2.8 (H)Comment: Testing | 0 - 0.2 K/uL | EXTERNAL | | | Manual | performed at [facility], [address] | | LAB | | | | [address], | | | | | | [place] [address] | | | | + + + + + + | Absolute | 1.4Comment: Testing | 1.0 - 3.9 K/uL | EXTERNAL | | | Lymphocytes | performed at [facility], [address] | | LAB | | | | [address], | | | | | | [place] [address] | | | | + + + + + + | Absolute | 0.5Comment: Testing | 0 - 0.8 K/uL | EXTERNAL | | | Monocytes | performed at [facility], [address] | | LAB | | | | [address], | | | | | | [place] [address] | | | | + + + + + + | RBC | RBC AND PLT MORPHOLOGY | | EXTERNAL | | | Morphology | APPEAR NORMALComment: | | LAB | | | | Testing performed at | | | | | | [facility], [address] | | | | | | [place] | | | | | | [address] | | | | + + + [...] | | | | | [place] [address] | | | | + + + + + + | K | 4.2Comment: Testing | 3.5 - 4.9 | EXTERNAL | | | | performed at [facility], [address] | mmol/L | LAB | | | | [address], | | | | | | [place] [address] | | | | + + + + + + | Cl | 101Comment: Testing | 99 - 109 mmol/L | EXTERNAL | | | | performed at [facility], [address] | | LAB | | | | [address], | | | | | | [place] [address] | | | | + + + + + + | CO2 | 28Comment: Testing | 23 - 32 mmol/L | EXTERNAL | | | | performed at [facility], [address] | | LAB | | | | [address], | | | | | | [place] [address] | | | | + + + + + + | Anion Gap | 8Comment: Testing | 5 - 20 mmol/L | EXTERNAL | | | | performed at [facility], [address] | | LAB | | | | [address], | | | | | | [place] [address] | | | | + + + + + + | Glucose, | 183 (H)Comment: Testing | 65 - 99 mg/dL | EXTERNAL | | | Fasting | performed at [facility], [address] | | LAB | | | | [address], | | | | | | [place] [address] | | | | + + + + + + | BUN | 12Comment: Testing | 8 - 25 mg/dL | EXTERNAL | | | | performed at [facility], [address] | | LAB | | | | [address], | | | | | | [place] [address] | | | | + + + + + + | Creatinine | 0.81Comment: Testing | 0.70 - 1.30 | EXTERNAL | | | | performed at [facility], [address] | mg/dL | LAB | | | | [address], | | | | | | [place] [address] | | | | + + + + + + | BUN/Creatin | 15Comment: Testing | | EXTERNAL | | | ine Ratio | performed at [facility], [address] | | LAB | | | | [address], | | | | | | [place] [address] | | | | + + + + + + | Calcium | 8.3 (L)Comment: NOTE NEW | 8.5 - 10.5 | EXTERNAL | | | | REFERENCE RANGETesting | mg/dL | LAB | | | | performed at [facility], [address] | | | | | | [address], | | | | | | [place] [address] | | | | + + + [...] W | | | | | | [address], | | | | | | [place] [address] | | | | + + + [...] | | | Clotting | performed at [facility];888 | seconds | LAB | | | time, POC | [address];[place], [place] | | | | | | [address] | | | | + + + [...] SURGEON: | | | Vincent Fields MD PROPERTY VALUER: MORRO Arboleda ANESTHESIA: General | | | [...] | properly identified and brought to the Videotape Editor. The patient was | | | placed supine on the Videotape Editor table and the patient underwent general | [...] | | was upsized to a 7 Scottish sheath. Next, a perclose device was deployed | | | at the 10:00 and 2:00 position in the right common femoral artery. | | | The 7 Scottish sheath was then reinserted over the wire. A pigtail | | | catheter was then placed through the right sheath into the mid aorta. | | | Next, a micropuncture needle was used to access the left common | | | femoral artery. A micropuncture sheath was then inserted over wire and | | | this was upsized to a 7 Scottish sheath. Again, a perclose device was | | | deployed at the 10:00 and 2:00 position in the left common femoral | | | artery. An Amplatz wire was then placed to the left 7 Scottish sheath | | | with the tip of the wire in the aortic arch. Once the wire was in | | | place, the 7-Scottish sheath was removed from the left common [...] | | placed into the right 7 filipino sheath with the tip at the aortic arch. | | | The 7 filipino sheath was then removed and upsized to a 16 filipino | | | sheath. Next, a right [...] device was then removed and a 16 filipino sheath was | | | inserted over the wire. A left iliac arteriogram was then performed | | | through the 16 Scottish sheath and the location of the left [...] the Perclose device SURGEON: Vincent Fields MD PROPERTY VALUER: Ingrid | | MORRO Morris ANESTHESIA: General [...] identified and | | brought to the Videotape Editor. The patient was placed supine on the Videotape Editor table and the | | patient underwent general endotracheal anesthesia. The patient's abdomen and bilateral | | groins were then prepped and draped in the usual sterile fashion. First, a micropuncture | | needle was used to access the right common femoral artery. A micropuncture sheath was | | then inserted over wire and this was upsized to a 7 Scottish sheath. Next, a perclose | | device was deployed at the 10:00 and 2:00 position in the right common femoral artery. | | The 7 Scottish sheath was then reinserted over the wire. A pigtail catheter was then | | placed through the right sheath into the mid aorta. Next, a micropuncture needle was | | used to access the left common femoral artery. A micropuncture sheath was then inserted | | over wire and this was upsized to a 7 Scottish sheath. Again, a perclose device was | | deployed at the 10:00 and 2:00 position in the left common femoral artery. An Amplatz | | wire was then placed to the left 7 Scottish sheath with the tip of the wire in the aortic | | arch. Once the wire was in place, the 7-Scottish sheath was removed from the left common [...] placed into the right 7 | | filipino sheath with the tip at the aortic arch. The 7 filipino sheath was then removed and | | upsized to a 16 filipino sheath. Next, a right iliac artery arteriogram [...] device was then removed and a 16 filipino sheath was inserted over the wire. A | | left iliac arteriogram was then performed through the 16 Scottish sheath and the location | | of [...] SURGEON: | | | Vincent Fields MD PROPERTY VALUER: MORRO Arboleda ANESTHESIA: General | | | [...] | properly identified and brought to the Videotape Editor. The patient was | | | placed supine on the Videotape Editor table and the patient underwent general | [...] | | was upsized to a 7 Scottish sheath. Next, a perclose device was deployed | | | at the 10:00 and 2:00 position in the right common femoral artery. | | | The 7 Scottish sheath was then reinserted over the wire. A pigtail | | | catheter was then placed through the right sheath into the mid aorta. | | | Next, a micropuncture needle was used to access the left common | | | femoral artery. A micropuncture sheath was then inserted over wire and | | | this was upsized to a 7 Scottish sheath. Again, a perclose device was | | | deployed at the 10:00 and 2:00 position in the left common femoral | | | artery. An Amplatz wire was then placed to the left 7 Scottish sheath | | | with the tip of the wire in the aortic arch. Once the wire was in | | | place, the 7-Scottish sheath was removed from the left common [...] | | placed into the right 7 filipino sheath with the tip at the aortic arch. | | | The 7 filipino sheath was then removed and upsized to a 16 filipino | | | sheath. Next, a right [...] device was then removed and a 16 filipino sheath was | | | inserted over the wire. A left iliac arteriogram was then performed | | | through the 16 Scottish sheath and the location of the left [...] the Perclose device SURGEON: Vincent Fields MD PROPERTY VALUER: Ingrid | | MORRO Morris ANESTHESIA: General [...] identified and | | brought to the Videotape Editor. The patient was placed supine on the Videotape Editor table and the | | patient underwent general endotracheal anesthesia. The patient's abdomen and bilateral | | groins were then prepped and draped in the usual sterile fashion. First, a micropuncture | | needle was used to access the right common femoral artery. A micropuncture sheath was | | then inserted over wire and this was upsized to a 7 Scottish sheath. Next, a perclose | | device was deployed at the 10:00 and 2:00 position in the right common femoral artery. | | The 7 Scottish sheath was then reinserted over the wire. A pigtail catheter was then | | placed through the right sheath into the mid aorta. Next, a micropuncture needle was | | used to access the left common femoral artery. A micropuncture sheath was then inserted | | over wire and this was upsized to a 7 Scottish sheath. Again, a perclose device was | | deployed at the 10:00 and 2:00 position in the left common femoral artery. An Amplatz | | wire was then placed to the left 7 Scottish sheath with the tip of the wire in the aortic | | arch. Once the wire was in place, the 7-Scottish sheath was removed from the left common [...] placed into the right 7 | | filipino sheath with the tip at the aortic arch. The 7 filipino sheath was then removed and | | upsized to a 16 filipino sheath. Next, a right iliac artery arteriogram [...] device was then removed and a 16 filipino sheath was inserted over the wire. A | | left iliac arteriogram was then performed through the 16 Scottish sheath and the location | | of [...] | | | Clotting | performed at [facility];888 | seconds | LAB | | | time, POC | [address];[place], [place] | | | | | | [address] | | | | + + + [...] | | | Clotting | performed at [facility];888 | seconds | LAB | | | time, POC | [address];[place], [place] | | | | | | [address] | | | | + + + [...] | | | Clotting | performed at [facility];888 | seconds | LAB | | | time, POC | [address];[place] | | | | | | [address] | | | | + + + [...]
--- OUTSIDE RECORDS SUMMARY | ~2019-09-02 | XMS | Encounter Summary ---
Demographics + + + | Address | [address] | | | [place] [address] | + + + | Home Phone [...] Team Providers + +------+ + | Care Wood Bucker Name | Role | Phone | + +------+ + PCP | Unavailable | + +------+ + Encounter Details +--------+ + + + + | Date | Type | Department | Care Team | Description | +--------+ + + + + | 05/11/ | Hospital | [facility] | Conversion | Pain | | 2015 | Encounter | CONVERSION DEP [address] | Transaction, | | | | | ANGÉLICA WOLFE | Provider Unknown | | | | | [place] | [phone] | | | | | [address] | | | | | | [phone] | | | +--------+ + + + [...] Abnormal nuclear | | | | | [address] | stress test; Cardiac | | | | | | resynchronization | | | | | | therapy | | | | | | defibrillator | | | | | | (MANAGER BUDGET-D) in place; | | | | | [...] | Radiology | Kimmie Wills | CV [facility] | | 2019 | | | MD [address] | | | | | | [place] | | | | | | [address] | | | | | | | | +--------+ + + + + | 09/29/ | Office | Cardiology | Poppy Rodriguez | | | 2019 | Visit | | [address] | | | | | | [address] | | | | | | [place] [address] | | | | | | [phone] | | | | | | | | +--------+ + + + + | 10/21/ | Office | Cardiology | Nav Foley, | | | 2019 | Visit | | MD [address] | | | | | | [place] [address] | | | | | | [phone] | | | | | | | [...]
--- OUTSIDE RECORDS SUMMARY | ~2019-09-02 | XMS | Encounter Summary ---
Demographics + + + | Address | [address] | | | [place] [address] | + + + | Home Phone | | + + + | Preferred Language | Unknown | + + + | Marital Status | | + + + | Mosque Affiliation | Unknown | + + + | Race | Unknown | + + + | Ethnic Group | Unknown | + + + Author + + + | Author | [facility] | | | and [place] | + + + | Organization | [facility] | | [...] Team Providers + +------+ + | Care Soft Work Wrapper Layer And Examiner Name | Role | Phone | [...] + + | 06/04/ | Office | [facility] | Nav Foley, | Palpitations | | 2019 | Visit | CARDIOLOGY [facility] | [address] | (Primary Dx) | | | | [address] | [place] [address] | | | | | [place] | [phone] | | | | | [address] | | | | | | [phone] | | | +--------+---------+ + + + [...] 12/06/18 1040 Encounter Date: 12/04/2018 Status: Signed Purchasing Department Clerk: Nav Foley MD (Physician) Related Notes: Original [...] mg by mouth nightly. Cholecalciferol (VITAMIN D3) 31418 UNITS CAPS Take 5,000 Int'l Units by [...] Abnormal nuclear | | | | | [address] | stress test; Cardiac | | | | | | resynchronization | | | | | | therapy | | | | | | defibrillator | | | | | | (RAW STOCK MACHINE LOADER-D) in place; | | | | | [...] [place] | | | | | | [address] | | | | | | | | +--------+ + + + + | 09/29/ | Office | Cardiology | Poppy Rodriguez | | | 2019 | Visit | | [address] | | | | | | [address] | | | | | | [place] [address] | | | | | | [phone] | | | | | | | | +--------+ + + + + | 10/21/ | Office | Cardiology | Nav Foley, | | | 2019 | Visit | | [address] | | | | | | [place] [address] | | | | | | [phone] | | | | | | | [...]
--- OUTSIDE RECORDS SUMMARY | ~2019-09-02 | XMS | Encounter Summary ---
Demographics + + + | Address | [address] | | | [place] [address] | + + + | Home Phone [...] Team Providers + +------+ + | Care Evidence Specialist Name | Role | Phone | [...] + + | 08/07/ | Telephone | [facility] | Mary Tipton ANP | Patient Concerns | | 2019 | | CARDIOLOGY [place] | [address] | | | | | [address] | [place], [place] | | | | | [place], [place] | [address] | | | | | [address] | | | | | | [phone] | | | +--------+ + + + [...] Abnormal nuclear | | | | | [address] | stress test; Cardiac | | | | | | resynchronization | | | | | | therapy | | | | | | defibrillator | | | | | | (PRODUCTION LINE SOLDERER-D) in place; | | | | | [...] [place] | | | | | | [address] | | | | | | | | +--------+ + + + + | 09/29/ | Office | Cardiology | JenniferPoppy | | | 2019 | Visit | | [address] | | | | | | [address] | | | | | | [place] [address] | | | | | | [phone] | | | | | | | | +--------+ + + + + | 10/21/ | Office | Cardiology | Nav Foley, | | | 2019 | Visit | | [address] | | | | | | [place] [address] | | | | | | [phone] | | | | | | | | +--------+ + + + + | 11/04/ | Procedure | Cardiology | | | | 2019 | visit | | | | +--------+ + + + + documented as of this encounter Visit Diagnoses Not on filedocumented in this encounter"
--- OUTSIDE RECORDS SUMMARY | ~2019-09-02 | XMS | Encounter Summary ---
Demographics + + + | Address | [address] | | | [place] [address] | + + + | Home Phone [...] Team Providers + +------+ + | Care Respiratory Assistant Name | Role | Phone | [...] MANAGEMENT | | | | | | [phone] | | | +--------+ + + + [...] f rom the original. Referral Referral # [id number] Referral Information Referral # Creation Date Referral Status Status Update [id number] 01/21/2016 Authorized 01/24/2016:Status History. Status Reason Referral Type Referral Reasons Referral Class No Approval Necessary - Patient Tracking Evaluate & Treat none Outgoing To Specialty To Provider To Location/POS To Department none none [facility] none Vendor Referred By By Location/POS By Department none Sailaja B Offenstein none [facility] Priority Start Date Expiration Date Referral Entered By Routine 01/21/2016 07/19/2016 LYNDSAY LYNN Visits Requested Visits Authorized Visits Completed Visits Scheduled 1 1 Procedure Information Procedure Modifiers Provider Requested Approved [id number] (CPT) - [place] OFFICE OUTPATIENT VISIT 25 MINUTES 1 1 Authorizing Provider Authorizing Provider Diagnosis Information Diagnosis J44.9 (ICD-10-CM) - 496 (ICD-9-CM) - COPD (chronic obstructive pulmonary disease) ([facility]) Active Insurance as of 02/01/2016 MEDICARE - MEDICARE PART A AND B Payor Plan Insurance Group Employer/Plan Group MEDICARE MEDICARE PART A AND B Payor Plan Address Payor Plan Phone Number Effective From Effective To [address] 10/18/2012 BENJA BELCHER [address] Subscriber Name Subscriber Date Member ID FRANCI VELÁZQUEZ 1945 [id number] Guarantor Name (ID) Guarantor Date Guarantor Address Guarantor Type FRANCI VELÁZQUEZ ([id number]) 1945 [address] [place] Personal/[place] [address] [employer] Payor Plan Insurance Group Employer/Plan Group [employer] PLAN G Payor Plan Address Payor Plan Phone Number Effective From Effective To [address] 10/18/2014 Tacho ChaparroGIA [address] Subscriber Name Subscriber Date Member ID FRANCI VELÁZQUEZ 1945 [id number] Guarantor Name (ID) Guarantor Date Guarantor Address Guarantor Type FRANCI VELÁZQUEZ ([id number]) 1945 [address] [place] [id number] Referral Notes Type Date User General 01/31/2016 5555 LYNDSAY LYNN Note Please send the following information for referral purposes. Status (Emergent/Urgent/Routine): routine External Referral Form ([facility]/Other):no Referred to Provider: [facility] Include: Patient Demographics Chart Notes (Provider Name/Date): Offenstein Referral Letter: no Procedure(s): if any Pathology: if any Imaging: yes Labs: most recent Other: any other pertinent pulmonary records Type Date User General 01/24/2016 1035 ASHOK DUARTE Summary ??> APPROVED> OFFENSTEIN> CONTINUITY OF CARE> [facility] Note APPROVED New - Scheduling Minimum Data Set | Provider Notes: | Payer: [employer] SUPP PLAN G | Subscriber Name: Self | & [id number] | Auth ID: Not required by payer | CPT Provided? Yes | Dx Code Provided? | Additional Contact Info: - NO ABN REQUIRED PER MED ASSETS CODE COMPLIANCE [facility] - NO PA REQUIRED. FOLLOWS GUIDELINES PER CALL TO BRITTNEE. [phone] Type Date User General 01/21/2016 164LYNDSAY POOLE Note Referral to [facility] for continued care documented [...] Abnormal nuclear | | | | | [address] | stress test; Cardiac | | | | | | resynchronization | | | | | | therapy | | | | | | defibrillator | | | | | | (STOCK BLENDER-D) in place; | | | | | [...] [place] | | | | | | [address] | | | | | | | | +--------+ + + + + | 09/29/ | Office | Cardiology | TonmanaPoppy | | | 2019 | Visit | | [address] | | | | | | [address] | | | | | | [place] [address] | | | | | | [phone] | | | | | | | | +--------+ + + + + | 10/21/ | Office | Cardiology | Nav Foley, | | | 2019 | Visit | | [address] | | | | | | [place] [address] | | | | | | [phone] | | | | | | | | +--------+ + + + + | 11/04/ | Procedure | Cardiology | | | | 2019 | visit | | | | +--------+ + + + + documented as of this encounter Visit Diagnoses Not on filedocumented in this encounter"
--- OUTSIDE RECORDS SUMMARY | ~2019-09-02 | XMS | Encounter Summary ---
Demographics + + + | Address | [address] | | | [place] [address] | + + + | Home Phone [...] Team Providers + +------+ + | Care Raw Sampler Name | Role | Phone | + [...] Chiang MD | | | | | [place], | | | | | | [place] [address] | | | | | | [phone] | | | +--------+ + + + [...] Abnormal nuclear | | | | | [address] | stress test; Cardiac | | | | | | resynchronization | | | | | | therapy | | | | | | defibrillator | | | | | | (ORACLE ARCHITECT-D) in place; | | | | [...] | Radiology | Kimmie Wills | [facility] | | 2019 | | | MD Saravanan [address] | | | | | | [place] | | | | | | [address] | | | | | | | | +--------+ + + + + | 09/29/ | Office | Cardiology | Poppy Rodriguez | | 2019 | Visit | | [address] | | | | | | [address] | | | | | | [place] [address] | | | | | | [phone] | | | | | | | | +--------+ + + + + | 10/21/ | Office | Cardiology | Nav Foley, | | | 2019 | Visit | | MD [address] | | | | | | [place] [address] | | | | | | [phone] | | | | | | | | +--------+ + + + + | 11/04/ | Procedure | Cardiology | | | | 2019 | visit | | | | +--------+ + + + + documented as of this encounter Visit Diagnoses Not on filedocumented in this encounter"
--- OUTSIDE RECORDS SUMMARY | ~2019-09-02 | XMS | Encounter Summary ---
Demographics + + + | Address | [address] | | | [place] [address] | + + + | Home Phone [...] Providers + +------+ + | Care Genetic Coordinator Name | Role | Phone | [...] | PULMONARY [address] | RN | ([facility]) | | | | [place], | | | | | | [place] [address] | | | | | | [phone] | | | +--------+ + + + [...] Abnormal nuclear | | | | | [address] | stress test; Cardiac | | | | | | resynchronization | | | | | | therapy | | | | | | defibrillator | | | | | | (PREPARER-D) in place; | | | | | [...] | Radiology | Kimmie Wills | [facility] | | 2019 | | | MD Saravanan [address] | | | | | | [place] | | | | | | [address] | | | | | | | | +--------+ + + + + | 09/29/ | Office | Cardiology | Poppy Rodriguez | | 2019 | Visit | | [address] | | | | | | [address] | | | | | | [place] [address] | | | | | | [phone] | | | | | | | | +--------+ + + + + | 10/21/ | Office | Cardiology | Nav Foley Anabela, | | | 2019 | Visit | | MD [address] | | | | | | [facility] [address] | | | | | | [phone] | | | | | | | [...]
--- OUTSIDE RECORDS SUMMARY | ~2019-09-02 | XMS | Encounter Summary ---
Demographics + + + | Address | [address] | | | [place] [address] | + + + | Home Phone [...] Team Providers + +------+ + | Care Community Living Coach Name | Role | Phone | + [...] + + | 07/31/ | Telephone | [facility] | Mary Tipton ANP | Patient Education | | 2019 | | CARDIOLOGY [place] | [address] | | | | | [address] | [place], [place] | | | | | [place], [place] | [address] | | | | | [address] | | | | | | [phone] | | | +--------+ + + + [...] Abnormal nuclear | | | | | [address] | stress test; Cardiac | | | | | | resynchronization | | | | | | therapy | | | | | | defibrillator | | | | | | (RECEPTION MANAGER-D) in place; | | | | [...] [place] | | | | | | [address] | | | | | | | | +--------+ + + + + | 09/29/ | Office | Cardiology | Poppy Rodriguez | | | 2019 | Visit | | [address] | | | | | | [address] | | | | | | [place] [address] | | | | | | [phone] | | | | | | | | +--------+ + + + + | 10/21/ | Office | Cardiology | Nav Foley, | | | 2019 | Visit | | [address] | | | | | | [facility] [place] [address] | | | | | | [phone] | | | | | | | | +--------+ + + + + | 11/04/ | Procedure | Cardiology | | | | 2019 | visit | | | | +--------+ + + + + documented as of this encounter Visit Diagnoses Not on filedocumented in this encounter"
--- OUTSIDE RECORDS SUMMARY | ~2019-09-02 | XMS | Encounter Summary ---
Demographics + + + | Address | [address] | | | [place] [address] | + + + | Home Phone [...] Team Providers + +------+ + | Care Liner Machine Operator Helper Name | Role | Phone | + +------+ + PCP | Unavailable | + +------+ + Encounter Details +--------+ + + + + | Date | Type | Department | Care Team | Description | +--------+ + + + + | 09/15/ | Hospital | [facility] | Conversion | Pain | | 2015 | Encounter | CONVERSION DEP [address] | Transaction, | | | | | ANGÉLICA WOLFE | Provider Unknown | | | | | [place] | [phone] | | | | | [address] | | | | | | [phone] | | | +--------+ + + + [...] Abnormal nuclear | | | | | [address] | stress test; Cardiac | | | | | | resynchronization | | | | | | therapy | | | | | | defibrillator | | | | | | (SENIOR PAYROLL ADMINISTRATOR-D) in place; | | | | | [...] | Radiology | Kimmie Wills | CV [facility] | | 2019 | | | MD Saravan[address] | | | | | | [place] | | | | | | [address] | | | | | | | | +--------+ + + + + | 09/29/ | Office | Cardiology | Poppy Rodriguez | | | 2019 | Visit | | [address] | | | | | | [address] | | | | | | [place] [address] | | | | | | [phone] | | | | | | | | +--------+ + + + + | 10/21/ | Office | Cardiology | Nav Foley, | | | 2019 | Visit | | MD [address] | | | | | | [place] [address] | | | | | | [phone] | | | | | | | [...]
--- OUTSIDE RECORDS SUMMARY | ~2019-09-02 | XMS | Encounter Summary ---
Demographics + + + | Address | [address] | | | [place] [address] | + + + | Home Phone [...] Team Providers + +------+ + | Care Cooker Mechanic Name | Role | Phone | [...] + + | 07/24/ | Procedure | [facility] | | Non-sustained | | 2019 | visit | CARDIOLOGY [place] | | ventricular | | | | [address] | | tachycardia (HCC) | | | | [place], [place] | | (Primary Dx); | | | | [address] | | Cardiac | | | | [phone] | | resynchronization | | | | | | therapy | | | | | | defibrillator | | | | | | (GANG SAW OPERATOR-D) in place; | | | | [...] Abnormal nuclear | | | | | [address] | stress test; Cardiac | | | | | | resynchronization | | | | | | therapy | | | | | | defibrillator | | | | | | (GANG SAW OPERATOR-D) in place; | | | | [...] [place] | | | | | | [address] | | | | | | | | +--------+ + + + + | 09/29/ | Office | Cardiology | Poppy Rodriguez | | | 2019 | Visit | | [address] | | | | | | [address] | | | | | | [place] [address] | | | | | | [phone] | | | | | | | | +--------+ + + + + | 10/21/ | Office | Cardiology | Nav Foley, | | | 2019 | Visit | | MD [address] | | | | | | [place] [address] | | | | | | [phone] | | | | | | | [...] defibrillator | | | | | | (GANG SAW OPERATOR-D) in place | | | | [...] Boyle | [facility] | | Navid, Technologist 07/24/2019 2:12 PMCL [...] + + | Cardiac resynchronization therapy defibrillator (GANG SAW OPERATOR-D) in place | + + | Syncope and collapse | + + | Non-ischemic cardiomyopathy (HCC) Other primary cardiomyopathies | + + documented in this encounter"
--- OUTSIDE RECORDS SUMMARY | ~2019-09-02 | XMS | Encounter Summary ---
Demographics + + + | Address | [address] | | | [place] [address] | + + + | Home Phone [...] Team Providers + +------+ + | Care Hvac Technician Residential Name | Role | Phone | + +------+ + PCP | Unavailable | + +------+ + Encounter Details +--------+ + + + + | Date | Type | Department | Care Team | Description | +--------+ + + + + | 10/16/ | Hospital | [facility] | Conversion | Pain | | 2015 | Encounter | CONVERSION DEP [address] | Transaction, | | | | | ANGÉLICA WOLFE | Provider Unknown | | | | | [place] | [phone] | | | | | [address] | | | | | | [phone] | | | +--------+ + + + [...] Abnormal nuclear | | | | | [address] | stress test; Cardiac | | | | | | resynchronization | | | | | | therapy | | | | | | defibrillator | | | | | | (WORD PROCESSING SUPERVISOR-D) in place; | | | | | [...] | Radiology | Kimmie Wills | CV [facility] | | 2019 | | | MD Saravan[address] | | | | | | [place] | | | | | | [address] | | | | | | | | +--------+ + + + + | 09/29/ | Office | Cardiology | Poppy Rodriguez | | | 2019 | Visit | | [address] | | | | | | [address] | | | | | | [place] [address] | | | | | | [phone] | | | | | | | | +--------+ + + + + | 10/21/ | Office | Cardiology | Nav Foley, | | | 2019 | Visit | | MD [address] | | | | | | [place] [address] | | | | | | [phone] | | | | | | | [...]
--- OUTSIDE RECORDS SUMMARY | ~2019-09-02 | XMS | Encounter Summary ---
Demographics + + + | Address | [address] | | | [place] [address] | + + + | Home Phone [...] Team Providers + +------+ + | Care Laborer Vegetable Farm Name | Role | Phone | + +------+ + | Carla Murphy | PCP | | | PA-C | | | + +------+ + Reason for Visit + + + | Reason | Comments | + + + | Spoke With Patient | | + + + Encounter Details +--------+ + + + + | Date | Type | Department | Care Team | Description | +--------+ + + + + | 08/05/ | Telephone | [facility] | Mary Tipton ANP | Spoke With Patient | | 2019 | | CARDIOLOGY [place] | [address] | | | | | [address] | [place], [place] | | | | | [place], [place] | [address] | | | | | [address] | | | | | | [phone] | | | +--------+ + + + [...] Abnormal nuclear | | | | | [address] | stress test; Cardiac | | | | | | resynchronization | | | | | | therapy | | | | | | defibrillator | | | | | | (PRODUCE FIELD MERCHANDISER-D) in place; | | | | | [...] [place] | | | | | | [address] | | | | | | | | +--------+ + + + + | 09/29/ | Office | Cardiology | Poppy Rodriguez | | | 2020 | Visit | | [address] | | | | | | [address] | | | | | | [place] [address] | | | | | | [phone] | | | | | | | | +--------+ + + + + | 10/21/ | Office | Cardiology | Nav Foley, | | | 2019 | Visit | | [address] | | | | | | [place] [address] | | | | | | [phone] | | | | | | | | +--------+ + + + + | 11/04/ | Procedure | Cardiology | | | | 2019 | visit | | | | +--------+ + + + + documented as of this encounter Visit Diagnoses Not on filedocumented in this encounter"
--- OUTSIDE RECORDS SUMMARY | ~2019-09-02 | XMS | Encounter Summary ---
Demographics + + + | Address | [address] | | | [place] [address] | + + + | Home Phone | | + + + | Preferred Language | Unknown | + + + | Marital Status | | + + + | Amish Affiliation | Unknown | + + + | Race | Unknown | + + + | Ethnic Group | Unknown | + + + Author + + + | Author | [facility] | | | and [place] | + + + | Organization | [facility] | | | [...] Team Providers + +------+ + | Care Hide Salter Name | Role | Phone | + [...] | | | | [address] | [address] | [address]VE | | | | | Test | [place], | [place], [place] | | | | | | [place] [address] | [address] | | | | | | | Phone: | | | | | | | [phone] | | | | | | | Fax: | | | | | | | [phone] | +--------+--------+ + + + + Reason [...] | | pulmonary | PA-C [address] | | | | | disease, | [address] | [place], | | | | | unspecified | Ave | [place] [address] | | | | | ([facility]) | [place], | | | | | | Procedures | [place] | | | | | | [place] | [address] | | | | | | CONSULT | Phone: | | | | | | | [phone] | | | | | | | Fax: | | | | | | | [phone] | | +--------+--------+ + + + + Encounter Details +--------+---------+ + + + | Date | Type | Department | Care Team | Description | +--------+---------+ + + + | 10/18/ | Office | [facility] | Lyn, | Dyspnea on exertion; | | 2015 | Visit | PULMONARY [address] | Sailaja Chiang MD | Elevated left | | | | [place], | | diaphragm; | | | | [place] [address] | | Panlobular emphysema | | | | [phone] | | ([facility]); Non-ischemic | | | | | [...] see if it works. Schedule this at [facility]. Do an overnight oxygen test through [facility] [employer]. Call the [employer] before yo u pick it up to make sure they have a box available. You will garbage pick up worker a box at the [facility]. Do the test on room air. Wear [...] years ago. He kinsey mbcriss going to [facility] ER years ago for pneumonia, a [...] mentioned something about being sen t to [facility] at the time). In the midst here, [...] at another follow up). He saw the MANAGER RN from EP cardiology in March 2015, and was noted to require a generator prescott e for his pacemaker defibrillator. This was performed in April. At his last note, in [facility] low up after his generator change, Dr. Foley mentions that he feels that his shortness of carol ath is related to his COPD. His most recent EF is 35-40% on echo in April. He was then seen in the ER at [facility] a total of 4 times. In [...] far, sometimes 2-3 blocks. He has a [employer] tair climber at home, but has not [...] Diagnosis Date COPD (chronic obstructive pulmonary disease) ([facility]) Allergic rhinitis seeing Dr. Hedrick 10/2015 MOISÉS (obstructive sleep apnea) not formally diagnosed Anxiety AAA (abdominal aortic aneurysm) ([facility]) 2014 Non-ischemic cardiomyopathy ([facility]) EF 35-40%, class 2-3 symptoms, s/p [...] Years of Education: N/A Occupational History Retired [employer] Social History Main Topics Smoking status: Never Smoker Smokeless tobacco: Never Used Alcohol Use: No Comment: 1 every 5 years or so Drug Use: No Sexual Activity: None Other Topics Concern None Social History Narrative Lives: [place] With: Self Grew up: [place] Has previously lived in: [place] Exposure to toxic chemicals: No Exposure to asbestos: No Exposure to tuberculosis: No Has had a PPD or Quantiferon before: Not that he knows of. Has pets at home: Cat Has ever owned birds: Yes an owl back in the s. Other animal exposures: Rabbits, lots of cats and dogs. Hobbies: Going to the [employer]. Allergies: Allergies Allergen Reactions Codeine Anaphylaxis Meperidine [...] made to ensure accuracy; however, inadvertent computerized wrist hemmer errors may be pre sent. Electronically signed [...] Abnormal nuclear | | | | | [address] | stress test; Cardiac | | | | | | resynchronization | | | | | | therapy | | | | | | defibrillator | | | | | | (WASHER AND CAPPER MACHINE OPERATOR-D) in place; | | | [...] | 09/17/ | Surgery | Radiology | Kimime Wills | [facility] | | 2019 | | | MD Saravanan [address] | | | | | | [place] | | | | | | [address] | | | | | | | | +--------+ + + + + | 09/29/ | Office | Cardiology | Poppy Rodriguez | | | 2019 | Visit | | [address] | | | | | | [address] | | | | | | [place] [address] | | | | | | [phone] | | | | | | | | +--------+ + + + + | 10/21/ | Office | Cardiology | Nav Foley, | | | 2019 | Visit | | [address] | | | | | | [place] [address] | | | | | | [phone] | | | | | | | [...]
--- OUTSIDE RECORDS SUMMARY | ~2019-09-02 | XMS | Encounter Summary ---
Demographics + + + | Address | [address] | | | [place] [address] | + + + | Home Phone [...] Team Providers + +------+ + | Care Link Fabric Machine Operator Name | Role | Phone | + +------+ + | Carla Murphy | PCP | | | PA-C | | | + +------+ + Encounter Details +--------+ + + + + | Date | Type | Department | Care Team | Description | +--------+ + + + + | 06/18/ | Procedure | [facility] | Nav Foley, | Palpitations | | 2019 | visit | CARDIOLOGY [place] | [address] | | | | | [address] | [place] [address] | | | | | [place], [place] | [phone] | | | | | [address] | | | | | | [phone] | | | +--------+ + + + [...] - 06/18/2019 3:00 PM PDT30 day telemetry 56859 cardiac monit or placed on patient. EOB/Billing information discussed. Instructions given and understood. Patient instructed to call [facility] for any billing or monitor questions. [...] Abnormal nuclear | | | | | [address] | stress test; Cardiac | | | | | | resynchronization | | | | | | therapy | | | | | | defibrillator | | | | | | (POCKET CLOSER-D) in place; | | | | | [...] [place] | | | | | | [address] | | | | | | | | +--------+ + + + + | 09/29/ | Office | Cardiology | Poppy Rodriguez | | | 2019 | Visit | | [address] | | | | | | [address] | | | | | | [place] [address] | | | | | | [phone] | | | | | | | | +--------+ + + + + | 10/21/ | Office | Cardiology | Nav Foley, | | | 2019 | Visit | | [address] | | | | | | [place] [address] | | | | | | [phone] | | | | | | | [...]
--- OUTSIDE RECORDS SUMMARY | ~2019-09-02 | XMS | Encounter Summary ---
Demographics + + + | Address | [address] | | | [place] [address] | + + + | Home Phone [...] Team Providers + +------+ + | Care Specimen Transporter Name | Role | Phone | + +------+ + | Carla Murphy | PCP | | | PA-C | | | + +------+ + Reason for Visit + + + | Reason | Comments | + + + | Appointment | | + + + Encounter Details +--------+ + + + + | Date | Type | Department | Care Team | Description | +--------+ + + + + | 08/25/ | Telephone | [facility] | Mary Tipton ANP | Appointment | | 2020 | | CARDIOLOGY [place] | [address] | | | | | [address] | [place], [place] | | | | | [place], [place] | [address] | | | | | [address] | | | | | | [phone] | | | +--------+ + + + [...] Abnormal nuclear | | | | | [address] | stress test; Cardiac | | | | | | resynchronization | | | | | | therapy | | | | | | defibrillator | | | | | | (ESTHETICS INSTRUCTOR-D) in place; | | | | | [...] [place] | | | | | | [address] | | | | | | | | +--------+ + + + + | 09/29/ | Office | Cardiology | Poppy Rodriguez | | | 2019 | Visit | | [address] | | | | | | [address] | | | | | | [place] [address] | | | | | | [phone] | | | | | | | | +--------+ + + + + | 10/21/ | Office | Cardiology | Nav Foely, | | | 2019 | Visit | | [address] | | | | | | [facility] [address] | | | | | | [phone] | | | | | | | | +--------+ + + + + | 11/04/ | Procedure | Cardiology | | | | 2019 | visit | | | | +--------+ + + + + documented as of this encounter Visit Diagnoses Not on filedocumented in this encounter"
--- OUTSIDE RECORDS SUMMARY | ~2019-09-02 | XMS | Encounter Summary ---
Demographics + + + | Address | [address] | | | [place] [address] | + + + | Home Phone [...] Providers + +------+ + | Care Business Assistant Name | Role | Phone | [...] [facility]) | | | | [place], | | | | | | [place] [address] | | | | | | [phone] | | | +--------+ + + + [...] Abnormal nuclear | | | | | [address] | stress test; Cardiac | | | | | | resynchronization | | | | | | therapy | | | | | | defibrillator | | | | | | (SURVEY INSTRUMENT OPERATOR-D) in place; | | | | [...] | Radiology | Kimmie Wills | [facility] | | 2019 | | | MD [address]avan[address] | | | | | | [place] | | | | | | [address] | | | | | | | | +--------+ + + + + | 09/29/ | Office | Cardiology | Poppy Rodriguez | | 2019 | Visit | | [address] | | | | | | [address] | | | | | | [place] [address] | | | | | | [phone] | | | | | | | | +--------+ + + + + | 10/21/ | Office | Cardiology | Nav Foley Anabela, | | | 2019 | Visit | | MD [address] | | | | | | [facility] [address] | | | | | | [phone] | | | | | | | [...]
--- OUTSIDE RECORDS SUMMARY | ~2019-09-02 | XMS | Encounter Summary ---
Demographics + + + | Address | [address] | | | [place] [address] | + + + | Home Phone [...] Team Providers + +------+ + | Care Floriculturist Name | Role | Phone | + [...] + + | 06/04/ | Office | [facility] | Nav Foley, | Palpitations | | 2019 | Visit | CARDIOLOGY [place] | [address] | (Primary Dx) | | | | [address] | [place] [address] | | | | | [place] | [phone] | | | | | [address] | | | | | | [phone] | | | +--------+---------+ + + + [...] 12/06/18 1040 Encounter Date: 12/04/2018 Status: Signed Composition Tile Layer: Nav Foley MD (Physician) Related Notes: Original [...] mg by mouth nightly. Cholecalciferol (VITAMIN D3) 39888 UNITS CAPS Take 5,000 Int'l Units by [...] Abnormal nuclear | | | | | [address] | stress test; Cardiac | | | | | | resynchronization | | | | | | therapy | | | | | | defibrillator | | | | | | (ELECTROMECHANISMS DESIGN DRAFTER-D) in place; | | | | | [...] [place] | | | | | | [address] | | | | | | | | +--------+ + + + + | 09/29/ | Office | Cardiology | Poppy Rodriguez | | | 2019 | Visit | | [address] | | | | | | [address] | | | | | | [place] [address] | | | | | | [phone] | | | | | | | | +--------+ + + + + | 10/21/ | Office | Cardiology | Nav Foley, | | | 2019 | Visit | | [address] | | | | | | [place] [address] | | | | | | [phone] | | | | | | | [...]
--- OUTSIDE RECORDS SUMMARY | ~2019-09-02 | XMS | Encounter Summary ---
Demographics + + + | Address | [address] | | | [place] [address] | + + + | Home Phone [...] Team Providers + +------+ + | Care Make Up Artist Name | Role | Phone | + [...] + + | 08/07/ | Telephone | [facility] | Mary Tipton ANP | Patient Concerns | | 2019 | | CARDIOLOGY [place] | [address] | | | | | [address] | [place], [place] | | | | | [place], [place] | [address] | | | | | [address] | | | | | | [phone] | | | +--------+ + + + [...] Abnormal nuclear | | | | | [address] | stress test; Cardiac | | | | | | resynchronization | | | | | | therapy | | | | | | defibrillator | | | | | | (ROUNDER HAND-D) in place; | | | | [...] [place] | | | | | | [address] | | | | | | | | +--------+ + + + + | 09/29/ | Office | Cardiology | JenniferPoppy | | | 2019 | Visit | | [address] | | | | | | [address] | | | | | | [place] [address] | | | | | | [phone] | | | | | | | | +--------+ + + + + | 10/21/ | Office | Cardiology | Nav Foley, | | | 2019 | Visit | | [address] | | | | | | [place] [address] | | | | | | [phone] | | | | | | | | +--------+ + + + + | 11/04/ | Procedure | Cardiology | | | | 2019 | visit | | | | +--------+ + + + + documented as of this encounter Visit Diagnoses Not on filedocumented in this encounter"
--- OUTSIDE RECORDS SUMMARY | ~2019-09-02 | XMS | Encounter Summary ---
Demographics + + + | Address | [address] | | | [place] [address] | + + + | Home Phone | | + + + | Preferred Language | Unknown | + + + | Marital Status | | + + + | Latter-Day Affiliation | Unknown | + + + [...] Team Providers + +------+ + | Care Brand Sales Consultant Name | Role | Phone | [...] + + | 08/05/ | Telephone | [facility] | Mary Tipton ANP | Spoke With Patient | | 2019 | | CARDIOLOGY [place] | [address] | | | | | [address] | [place], [place] | | | | | [place], [place] | [address] | | | | | [address] | | | | | | [phone] | | | +--------+ + + + [...] Abnormal nuclear | | | | | [address] | stress test; Cardiac | | | | | | resynchronization | | | | | | therapy | | | | | | defibrillator | | | | | | (LINEN MANAGER-D) in place; | | | | [...] [place] | | | | | | [address] | | | | | | | | +--------+ + + + + | 09/29/ | Office | Cardiology | Poppy Rodriguez | | | 2020 | Visit | | [address] | | | | | | [address] | | | | | | [place] [address] | | | | | | [phone] | | | | | | | | +--------+ + + + + | 10/21/ | Office | Cardiology | Nav Foley, | | | 2019 | Visit | | [address] | | | | | | [place] [address] | | | | | | [phone] | | | | | | | | +--------+ + + + + | 11/04/ | Procedure | Cardiology | | | | 2019 | visit | | | | +--------+ + + + + documented as of this encounter Visit Diagnoses Not on filedocumented in this encounter"
--- OUTSIDE RECORDS SUMMARY | ~2019-09-02 | XMS | Encounter Summary ---
Demographics + + + | Address | [address] | | | [place] [address] | + + + | Home Phone | | + + + | Preferred Language | Unknown | + + + | Marital Status | | + + + | Sabianism Affiliation | Unknown | + + + [...] Team Providers + +------+ + | Care Hydraulic Pile Hammer Operator Name | Role | Phone | [...] + + | 07/30/ | Procedure | [facility] | | Syncope and collapse | | 2019 | visit | [facility]ARDIOLOGY [place] | | (Primary Dx); | | | | [address] | | Cardiac | | | | [place], [place] | | resynchronization | | | | [address] | | therapy | | | | [phone] | | defibrillator | | | | | | (FELT STRIP FINISHER-D) in place; | | | | | [...] | Encounter | | MD [address]avan[address] | hypertension; | | | | | [place] | Abnormal nuclear | | | | | [address] | stress test; Cardiac | | | | | | resynchronization | | | | | | therapy | | | | | | defibrillator | | | | | | (FELT STRIP FINISHER-D) in place; | | | | | [...] [place] | | | | | | [address] | | | | | | | | +--------+ + + + + | 09/29/ | Office | Cardiology | Poppy Rodriguez | | | 2019 | Visit | | [address] | | | | | | [address] | | | | | | [place] [address] | | | | | | [phone] | | | | | | | | +--------+ + + + + | 10/21/ | Office | Cardiology | Nav Foley, | | | 2019 | Visit | | [address] | | | | | | [place] [address] | | | | | | [phone] | | | | | | | [...] defibrillator | | | | | | (FELT STRIP FINISHER-D) in place | | | | | [...] encounter for additional details. | | | cumulative effects analyst: Orin Shoemaker, cumulative effects analyst [facility] | | |See device data attached to scheduled encounter for additional | | |details. | | | | | |cumulative effects analyst: Orin Shoemaker, cumulative effects analyst [facility] | | | | | | [...] + + | Cardiac resynchronization therapy defibrillator (FELT STRIP FINISHER-D) in place | + + | Non-sustained ventricular tachycardia (HCC) Paroxysmal ventricular tachycardia | + + | Non-ischemic cardiomyopathy (HCC) Other primary cardiomyopathies | + + documented in this encounter"
--- OUTSIDE RECORDS SUMMARY | ~2019-09-02 | XMS | Encounter Summary ---
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 Per notes "Attem pted FLOOR SCRAPER optimization today; however, any time LV offset was changed, patient became dizzy a nd felt near-syncopal. BP throughout was stable. Ultimately, reverted back to LV offset -40, as this was the only setting he felt well. Even AdaptiveCRT made him profoundly symptomatic . Unfortunately, given these symptoms, patient did not tolerate FLOOR SCRAPER optimization. I did thornton ge him from DDD to DDDR, even though HR histograms showed good distribution of HRs, in hopes that this may give him improved activity tolerance." He is currently on a regimen of Spiriva one capsule inhaled daily. He notes he has run acro ss a couple of these that are empty. He contacted the occ med physician, and he did get 10 capsul es [...] He is currently on [facility].5 L[facility]. He reports good compliance. He remains very [...] Date COPD (chronic obstructive pulmonary disease) ([facility]) Allergic rhinitis seeing Dr. 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 Has pets at home: Cat Has ever owned birds: Yes an owl back in the s. Other animal exposures: Rabbits, lots of cats and dogs. Hobbies: Going to the [employer]. Allergies: Allergies Allergen Reactions Codeine Anaphylaxis Meperidine [...] made to ensure accuracy; however, inadvertent computerized financial services director errors may be pre sent. Electronically signed [...] Abnormal nuclear | | | | | [address] | stress test; Cardiac | | | | | | resynchronization | | | | | | therapy | | | | | | defibrillator | | | | | | (FLOOR SCRAPER-D) in place; | | | | | [...] | Radiology | Kimmie Wills | [facility] | 2019 | | | MD [address] | | | | | | [place] | | | | | | [address] | | | | | | | | +--------+ + + + + | 09/29/ | Office | Cardiology | Poppy Rodriguez | | 2019 | Visit | | [address] | | | | | | [address] | | | | | | [place] [address] | | | | | | [phone] | | | | | | | | +--------+ + + + + | 10/21/ | Office | Cardiology | Nav Foley, | | | 2019 | Visit | | MD [address] | | | | | | [place] [address] | | | | | | [phone] | | | | | | | [...]
--- OUTSIDE RECORDS SUMMARY | ~2019-09-02 | XMS | Encounter Summary ---
Demographics + + + | Address | [address] | | | [place] [address] | + + + | Home Phone [...] Providers + +------+ + | Care Talent Development Consultant Name | Role | Phone | [...] [place] | | | | | [facility] [place] | [address] | | | | | [address] | | | | | | [phone] | | | +--------+ + + + [...] Abnormal nuclear | | | | | [address] | stress test; Cardiac | | | | | | resynchronization | | | | | | therapy | | | | | | defibrillator | | | | | | (VP & GENERAL COUNSEL-D) in place; | | | | | [...] | Radiology | Kimmie Wills | [facility] | | 2019 | | | MD [address] | | | | | | [place] | | | | | | [address] | | | | | | | | +--------+ + + + + | 09/29/ | Office | Cardiology | Poppy Rodriguez | | | 2019 | Visit | | [address] | | | | | | [address] | | | | | | [place] [address] | | | | | | [phone] | | | | | | | | +--------+ + + + + | 10/21/ | Office | Cardiology | Nav Foley, | | | 2019 | Visit | | MD [address] | | | | | | [place] [address] | | | | | | [phone] | | | | | | | [...] PV maxP.92 mmHg PV Vmax: 0.99 m/s Board Of Directors: | | | Authenticated by: LIZBET LYNN MD Report Date/Time: -- | | | [id number]:34 | | + + + + + [...] cmLVPWd: 1.13 cmLVOT Area: | | 5.09 [id number] Diam: 2.54 cm%FS: 1.72 %EF(Teich): 3.94 %ESV(Teich): [...] (A-L): 45.03 | | ml/m2LAAs A2C: 31.66 [id number] A-L A2C: 147.72 mlLALs A2C: 5.75 cmLAAs A4C: 21.81 | | qh2ZWFWU A-L A4C: 68.38 mlLALs A4C: 5.90 cmRAAs: 25.43 ja7GGERB A-L: 100.41 | | mlRAESV MOD: 92.04 mlRALs: 5.46 cmAo Diam: 3.82 cmLA Diam: 4.65 cmLA/Ao: | | 1.21TAPSE: 2.41 cmAV maxP.90 mmHgAV meanP.40 mmHgAV Vmax: 1.21 m/Fabricio | | Vmean: 0.87 m/Fabricio VTI: 23.83 cmAVA Vmax: 3.69 cm2AVA (VTI): 3.60 wp3QLFV Vmax: | | 0.00 cm2/m2AVAI (VTI): 0.00 cm2/m2LVOT maxP.10 mmHgLVOT meanP.59 mmHgLVSI | | Dopp: 37.97 ml/m2LVSV Dopp: 85.81 mlLVOT Vmax: 0.88 m/sLVOT Vmean: 0.59 m/sLVOT | | VTI: 16.83 cmMV A Frank: 0.65 m/sMV DecT: 257.92 msMV E Frank: 0.47 m/sMV E/A | | Ratio: 0.73MV PHT: 74.79 msMVA By PHT: 2.94 hq2Ugsbdx e': 0.04 m/sSeptal E/e': | | 11.67Lateral e': 0.04 m/sLateral E/e': 10.11PV maxP.92 mmHgPV Vmax: 0.99 | | m/s Board Of Directors:Authenticated by: Devan LEE Date/Time: -- | | [id number]:34 IMPRESSION: 1. Overall left ventricular systolic function [...] |PV Vmax: 0.99 m/s | | | |Board Of Directors: | |Authenticated by: LIZBET LYNN MD | |Report Date/Time: -- [id number]:9:34 | | | |IMPRESSION: | |1. Overall [...]
--- OUTSIDE RECORDS SUMMARY | ~2019-09-02 | XMS | Encounter Summary ---
Demographics + + + | Address | [address] | | | [place] [address] | + + + | Home Phone [...] Providers + +------+ + | Care Sales Process Manager Name | Role | Phone | [...] Chiang MD | | | | | [place], | | | | | | [place] [address] | | | | | | [phone] | | | +--------+ + + + [...] Abnormal nuclear | | | | | [address] | stress test; Cardiac | | | | | | resynchronization | | | | | | therapy | | | | | | defibrillator | | | | | | (JUVENILE DETENTION OFFICER-D) in place; | | | | [...] | Radiology | Kimmie Wills | CV [facility] | | 2019 | | | MD [address] | | | | | | [place] | | | | | | [address] | | | | | | | | +--------+ + + + + | 09/29/ | Office | Cardiology | Poppy Rodriguez | | 2019 | Visit | | [address] | | | | | | [address] | | | | | | [place] [address] | | | | | | [phone] | | | | | | | | +--------+ + + + + | 10/21/ | Office | Cardiology | Nav Foley, | | | 2019 | Visit | | MD [address] | | | | | | [place] [address] | | | | | | [phone] | | | | | | | | +--------+ + + + + | 11/04/ | Procedure | Cardiology | | | | 2019 | visit | | | | +--------+ + + + + documented as of this encounter Visit Diagnoses Not on filedocumented in this encounter"
--- OUTSIDE RECORDS SUMMARY | ~2019-09-02 | XMS | Encounter Summary ---
Demographics + + + | Address | [address] | | | [place] [address] | + + + | Home Phone [...] Team Providers + +------+ + | Care Grocery Manager Name | Role | Phone | + +------+ + | Carla Murphy | PCP | | | PA-C | | | + +------+ + Encounter Details +--------+ + + + + | Date | Type | Department | Care Team | Description | +--------+ + + + + | 01/20/ | Hospital | [facility] | Therese Sarabia DO | Hypotension due to | | 2017 - | Encounter | [facility] | [address] | drugs; Non-sustained | | | | CLINICAL DECISION | [place] [address] | ventricular | | 01/21/ | | [address] | [phone] | tachycardia (HCC) | | 2017 | | [place], [place] | | | | | | [address] | | | | | | [phone] | | | +--------+ + + + [...] 0856 Date of Service: 01/21/17851 Status: Signed Wine And Spirits Clerk: Beau Rudolph MD (Physician) [facility] Service: Hospitalist Physician Discharge Summary Patient ID: Jared Abraham [id number] y.o. 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 Was put out for it as a child Aortic endograft N/A 09/23/2014 Procedure: AORTIC - ENDOGRAFT; Surgeon: Vincent Fields MD; Location: [facility] OR/MANAGER OF COMPLIANCE; Ser vice: Vascular; Laterality: N/A; Significant Diagnostic [...] Commonly known as: NASACORT AQ Vitamin D3 04576 units Caps Refills: 0 STOP taking these [...] 01/21/1749 Date of Service: 01/21/17943 Status: Addendum Wine And Spirits Clerk: Kalpana Bell RN (Registered Nurse) Related [...] 01/21/17337 Date of Service: 01/21/17337 Status: Signed Wine And Spirits Clerk: Stanford Camarillo RPH (Pharmacist) Note ccl 103.3ml/min meds reviewed Pharmacy will follow rdc 0338 docume nted in this encounter Plan of Treatment +--------+ + + + + | Date | Type | Specialty | Care Team | Description | +--------+ + + + + | 01/29/ | Hospital | Radiology | Kimmie Wills | Essential | | 2020 | Encounter | | MD [address] | hypertension; | | | | | [place] | Abnormal nuclear | | | | | [address] | stress test; Cardiac | | | | | | resynchronization | | | | | | therapy | | | | | | defibrillator | | | | | | (PLUG OVERWRAP MACHINE TENDER-D) in place; | | | | | [...] [place] | | | | | | [address] | | | | | | | | +--------+ + + + + | 09/29/ | Office | Cardiology | Poppy Rodriguez | | | 2020 | Visit | | [address] | | | | | | [address] | | | | | | [place] [address] | | | | | | [phone] | | | | | | | | +--------+ + + + + | 10/21/ | Office | Cardiology | Nav Foley, | | | 2019 | Visit | | MD [address] | | | | | | [place] [address] | | | | | | [phone] | | | | | | | [...] | ECG 12 LEAD | Routin | 01/21/2017 | | Results for this | | | e | 6:33 AM | | procedure are in the [...] | ECG 12 LEAD | Routin | 01/20/2017 | | Results for this | | | e | 11:23 PM | | procedure are in the [...] | | | | | performed at [facility] | | | | | | [facility];[place], [place] | | | | | | [address] | | | | + + + [...] EXTERNAL | | | | performed at [facility] | | LAB | | | | [address];[place] | | | | | | [address] | | | | + + + [...] + +---------+ + + ECG 12 lead (01/21/2017 6:33 AM PDT) + + + + + + | Component | Value | Ref Range | Performed | Pathologist | | | | | At | Signature | + + + + + + | DIAGNOSIS: | Baseline ArtifactDual | | EXTERNAL | | | | chamber, atrial sensing | | LAB | | | | pacemakerBiventricular | | | | | | pacemaker | | | | | | detectedPremature | | | | | | ventricular | | | | | | complexesAbnormal | | | | | | ECGWhen compared with | | | | | | ECG of 30-NOV-2015 | | | | | | 15:16,No significant | | | | | | change since previous | | | | | | ECG Confirmed by | | | | | | DRE SOSA ([id number]) on | | | | | | 01/21/2017 9:48:37 AM | | | | + + + + + + + + | Specimen | + + | | + + + + + | Narrative | Performed At | + + + | Historically converted procedure from [facility] environment | EXTERNAL LAB | + + [...] | | | | | performed at [facility];[address] | | | | | | [address];[place], [place] | | | | | | [address] | | | | + + + [...] | | | | | performed at [facility];[address] | | | | | | [facility];[place], [place] | | | | | | [address] | | | | + + + [...] EXTERNAL | | | | performed at [facility];[address] | | LAB | | | [address];[place], [place] | | | | | | [address] | | | | + + + [...] | | | | | performed at [facility];[address] | | | | | | [address];[place], [place] | | | | | | [address] | | | | + + + [...] | | | Basophils | performed at [facility], [address] | [address] | LAB | | | | [address], | | | | | | [place] [address] | | | | + + + [...] EXTERNAL | | | | performed at [facility];[address] | | LAB | | | | [address];[place], [place] | | | | | | [address] | | | | + + + [...] EXTERNAL | | | | performed at [facility];[address] | | LAB | | | | [address];[place], [place] | | | | | | [address] | | | | + + + [...] EXTERNAL | | | | performed at [facility];[address] | | LAB | | | | [address];[place], [place] | | | | | | [address] | | | | + + + [...] | | | Cholesterol | performed at [facility], [address] | | LAB | | | , | [address], | | | | | Calculated, | [place] [address] | | | | | External | [...] | | | | | | at [facility];[address] | | | | | | [address];[place] [address] | | | | + + + [...] | | | | | performed at [facility];[address] | | | | | | [facility];[place], [place] | | | | | | [address] | | | | + + + [...] +---------+ + + External Lab: CBC (01/21/2017 12:22 AM PDT) + + + [...] | | | Basophils | performed at [facility];[address] | [address] | LAB | | | | [address];[place], [place] | | | | | | [address] | | | | + + + [...] EXTERNAL | | | | performed at [facility];[address] | | LAB | | | | [address];[place], [place] | | | | | | [address] | | | | + + + [...] EXTERNAL | | | | performed at [facility];[address] | | LAB | | | | [address];[place], [place] | | | | | | [address] | | | | + + + [...] EXTERNAL | | | | performed at [facility] | | LAB | | | | [address];[place], [place] | | | | | | [address] | | | | + + + [...] | | | | | | at [facility];[address] [place] [address] | | | | | | [facility];[place] [address] | | | | + + + [...] + +---------+ + + ECG 12 lead (01/20/2017 11:23 PM PDT) + + + + + + | Component | Value | Ref Range | Performed | Pathologist | | | | | At | Signature | + + + + + + | DIAGNOSIS: | Ventricular-paced | | EXTERNAL | | | | rhythmAbnormal ECGWhen | | LAB | | | | compared with ECG of | | | | | | -NOV-2015 | | | | | | 15:16,Previous ECG has | | | | | [...] | | | | | ONLY, -COMPUTER (500), | | | | | | subeditor Desiree Gutierres | | | | | | ([id number]) on 01/23/2017 8:15:00 | | | | | | AM | | | | + + + + + + + + | Specimen | + + | | + + + + + | Narrative | Performed At | + + + | [facility] | EXTERNAL LAB | + [...]
--- OUTSIDE RECORDS SUMMARY | ~2019-09-02 | XMS | Clinical Summary ---
Demographics + + + | Address | [address] | | | [place] [address] | + + + | Home Phone [...] Team Providers + +------+ + | Care Ore Miner Blasting Name | Role | Phone [...] + + +---------+------+------+-------+ | MAGNESIUM PO | every 48 hours. | | 0 | | | Activ | | | | | | | | e | + + + +---------+------+------+-------+ | metFORMIN | Take 1 tablet by | | 0 | 03/0 | | Activ | | (GLUCOPHAGE-XR) 500 | mouth daily. | | | 03/08 | | e | | mg 24 hr tablet | | | | 19 | | | + + + +---------+------+------+-------+ | metoprolol | Take 25 mg by mouth | | 0 | | | Activ | | tartrate (LOPRESSOR) | 2 times daily. Take | | | | | e | | 25 mg tablet | one half tablet 12.5 | | | | | | | | mg and take one | | | | | | | | quarter 6.25 mg at | | | | | | | | night | | | | | | + + + +---------+------+------+-------+ | amiodarone | Take 200 mg by mouth | | 0 | | 01/ | Disco | | (PACERONE) 200 mg | Daily. | | | | 11/06 | ntinu | | tablet | | | | | 20 | ed | | | | | | | | (Radha | | | | | | | | ent | | | | | | | | Not | | | | | | | | Takin | | | | | | | | g) | + + + +---------+------+------+-------+ Active Problems + + + | Problem | Noted Date | + + + | Abnormal nuclear stress test | 09/01/2019 | + + + | Essential hypertension | 09/01/2019 | + + + + + | Overview: Added automatically from request for surgery | | [id number] | + + + + + | [...] [facility] | [facility] with consult form stroke team at [facility]. 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 Has adjusted his diet. | + + [...] + + | Cardiac resynchronization therapy defibrillator (TERRAZZO WORKER APPRENTICE-D) in place | 01/21/2017 | + + + + + | Overview: History of nonischemic cardiomyopathy, NYHA class | | II, status post implantation of a MDT TERRAZZO WORKER APPRENTICE-D by Dr. Chiang in January | | 2009.Generator change by Dr. Delarosa in 2014 viva xt TERRAZZO WORKER APPRENTICE D MDT | | number [id number].Patient has a 5076 atrial lead Medtronic. 6947 [...] time of his | | hospitalization at [facility]. | + + + + + | [...] | | testing. Request echo results from [facility]. Will discuss | | next steps with [...] | 09/01/ | Office | Cardiology | Jennifer Poppy | Non-ischemic | | 2020 | Visit | | [address] | cardiomyopathy (HCC) | | | | | | (Primary Dx); | | | | | | Cardiac | | | | | | resynchronization | | | | | | therapy | | | | | | defibrillator | | | | | | (TERRAZZO WORKER APPRENTICE-D) in place; | | | | | [...] | | | | | tachycardia | +--------+ + + + + | 08/26/ | Hospital | Radiology | Mary Tipton ANP | Abnormal stress test | | 2019 | Encounter | | | | +--------+ + + + + | 08/25/ | Telephone | Cardiology | Mary Tipton ANP | Appointment | | 2019 | | | | | +--------+ + + + + | 08/21/ | Telephone | Cardiology Mary Henriquez ANP | Testing (schedule | | 2019 | | | | testing) | +--------+ + + + + | 08/07/ | Telephone | Cardiology Mary Henriquez ANP | Patient Concerns | | 2018 | | | | | +--------+ + + + + | 08/07/ | Telephone | Cardiology | Mary Tipton ANP | Patient Concerns | | 2018 | | | | | +--------+ + + + + | 08/06/ | Telephone | Cardiology | Mary Tipton ANP | Other ([facility] for | | 2018 | | | | patient to call | | | | | | back) | +--------+ + + + + | 08/05/ | Telephone | Cardiology | Mary Tipton ANP | Spoke With Patient | | 2018 | | | | | +--------+ + + + + | 08/05/ | Orders Only | Cardiology | Mary Tipton ANP | Abnormal stress test | | 2018 | | | | (Primary Dx) | +--------+ + + + + | 07/31/ | Telephone | Cardiology | Mary Tipton ANP | Patient Education | | 2019 | | | | | +--------+ + + + + | 07/30/ | Procedure | Cardiology | | Syncope and collapse | | 2019 | visit | | | (Primary Dx); | | | | | | Cardiac | | | | | | resynchronization | | | | | | therapy | | | | | | defibrillator | | | | | | (TERRAZZO WORKER APPRENTICE-D) in place; | | | | | | Non-sustained | | | | | | ventricular | | | | | | tachycardia (HCC); | | | | | | Non-ischemic | | | | | | cardiomyopathy (HCC) | +--------+ + + + + | 07/30/ | Office | Cardiology | Mary Tipton ANP | Non-ischemic | | 2019 | Visit | | | cardiomyopathy (HCC) | | [...] defibrillator | | | | | | (TERRAZZO WORKER APPRENTICE-D) in place; | | | | | | Orthostatic | | | | | | hypotension | +--------+ + + + + | 07/24/ | Procedure | Cardiology | | Non-sustained | | 2019 | visit | | | ventricular | | | | | | tachycardia (HCC) | | | | | | (Primary Dx); | | | | | | Cardiac | | | | | | resynchronization | | | | | | therapy | | | | | | defibrillator | | | | | | (TERRAZZO WORKER APPRENTICE-D) in place; | | | | | | Syncope and | | | | | | collapse; | | | | | | Non-ischemic | | | | | | cardiomyopathy (HCC) | +--------+ + + + + | [...] defibrillator | | | | | | (TERRAZZO WORKER APPRENTICE-D) in place; | | | | | [...] Cardiac Problem | | 2018 | | | MD | | +--------+ + + + + | 06/18/ | Procedure | Cardiology | Nav Foley, | Palpitations | | 2018 | visit | | MD | | +--------+ + + + + | 06/18/ | Documentati | Cardiology | Sharron Khan, | Other (end of study) | | 2019 | on | | Technologist | | +--------+ + + + + | 06/04/ | Office | Cardiology | Nav Foley, | Palpitations | | 2018 | Visit | | MD | (Primary Dx) | +--------+ + + + + | 06/02/ Procedure | Cardiology | | Non-ischemic | [...] | | | | | DR ORTEGA MS | Abnormal nuclear | | | | | [address] | stress test; Cardiac | | | | | | resynchronization | | | | | | therapy | | | | | | defibrillator | | | | | | (TERRAZZO WORKER APPRENTICE-D) in place; | | | | | [...] | Radiology | Kimmie Wills | [facility] | | 2019 | | | MD [place] | | | | | | [place] | | | | | | [address] | | | | | | | | +--------+ + + + + | 09/29/ | Office | Cardiology | Poppy Rodriguez | | | 2019 | Visit | | [address] | | | | | | [address] | | | | | | [place] [address] | | | | | | [phone] | | | | | | | | +--------+ + + + + | 10/21/ | Office | Cardiology | Nav Foley, | | | 2019 | Visit | | [address] | | | | | | [place] [address] | | | | | | [phone] | | | | | | | [...] | | | Dtap/Tdap/Td (1 - | 8 | | | | Tdap) | | | | + + + + + | Diabetic Eye Exam | | | | | | 5 | | | + + + + + | Diabetic Foot Exam | 12/18/196 | | | | | 5 | [...] | + +--------+------+ +--------+--------+--------+ | Implant Id: [id number] - | Cardia | | MEDTRONIC - | | | | | Stock Driver-D-05/17/2015Implanted: | c | | MEDT | | | /[id number] | | 05/17/2015 by Uvaldo Delarosa, | Rhythm | | | | | [id number] | | PhD (Quantity not on | | | | | | / | | file) | Manage | | | | | | | | ment | | | | | | + +--------+------+ +--------+--------+--------+ | Implant Id: [id number] - Endurant | Endogr | | MEDTRONIC - | | | | | EndograftImplanted: | aft | | MEDT | | | /[id number] | | 09/23/2014 by Vincent Fields MD | | | | | | [id number] / | | (Quantity not on file) | | | | | | | + +--------+------+ +--------+--------+--------+ | Implant Id: [id number] - Endurant | Endogr | | MEDTRONIC - | | | | | EndograftImplanted: | aft | | MEDT | | | /[id number] | | 09/23/2014 by Vincent Fields MD | | | | | | [id number] / | | (Quantity not on file) | | | | | | | + +--------+------+ +--------+--------+--------+ | Implant Id: [id number] - Endurant | Endogr | | | | | | | EndograftImplanted: | aft | | | | | /[id number] | | 09/23/2014 by Vincent Fields MD | | | | | | [id number] / | | (Quantity not on file) | | | | | | | + +--------+------+ +--------+--------+--------+ Procedures + +--------+ [...] defibrillator | | | | | | (TERRAZZO WORKER APPRENTICE-D) in place | | | | | [...] | LABS - EXTERNAL SCAN | | 08/18/2019 | | Results [...] defibrillator | | | | | | (TERRAZZO WORKER APPRENTICE-D) in place | | | | | [...] defibrillator | | | | | | (TERRAZZO WORKER APPRENTICE-D) in place | | | | | [...] defibrillator | | | | | | (TERRAZZO WORKER APPRENTICE-D) in place | | | | | [...] Last 3 Months Results ECG 12 lead (09/01/2019 2:15 PM PST)Only the most recent of 3 results within the time mychal od is included. + + + + + + | [...] | | | | | by [facility] Rudyard Read Only, | | | | | | ICA Pam ([id number]), | | | | | | content editor Darwin Bob | | | | | | ([id number]) on 09/01/2019 | | | | | [...] | | | + +---------+ + + NM Nuclear Stress Test (Vasodilator) (08/29/2019 11:19 [...] +---------+ + + LABS - EXTERNAL SCAN (08/18/2019 12:00 AM PST) + + + | Narrative | Performed At | + + + | Ordered by an | | | unspecified provider. | | + + + ECHO-EXTERNAL SCAN (08/18/2019 12:00 AM PST) + + + | Narrative | Performed At | + + + | Ordered by an | | | unspecified provider. | | + + + Device Interrogation (07/30/2019 3:15 PM PST) + + + | Narrative | Performed At | + + + | Germain Boyle | [facility] | | Navid, Technologist 07/30/2019 3:45 PMDevice interrogation | | | done by Mary Tipton Any events or changes listed in office note. See | | | device data attached to scheduled encounter for additional details. | | | telegraph editor: Orin Shoemaker, telegraph editor [facility] | | |See device data attached to scheduled encounter for additional | | |details. | | | | | |telegraph editor: Orin Shoemaker, telegraph editor [facility] | | | | | | | | + + + + +---------+ + + | Performing | Address | City/State/Zipcode | Phone Number | | Organization | | | | + +---------+ + + | [facility] | | | | + +---------+ + + Device Interrogation - Remote (07/24/2019 8:55 AM PST)Only the most recent of 2 results wi thin the time period is included. + + + | Narrative | Performed At | + + + | Germain Boyle | [place] | | Navid Technologist 07/24/2019 2:12 PMCL [facility] | [...] +--------+ +---------+--------+ | MEDICARE | MEDICA | [id number] | 10/19/19 | [phone] | | Medica | | | RE | | 13-Pre | 5 | | re | | | PART A | | sent | | | | | | AND B | | | | | | + +--------+ +--------+ +---------+--------+ | MEDICARE | MEDICA | [id number] | 05/31/ | [phone] | | Medica | | | RE | | 2019-P | 5 | | re | | | PART A | | resent | | | | | | AND B | | | | | | + +--------+ +--------+ +---------+--------+ | [employer] | TRANSA | [id number] | 10/19/19 | | | Indemn | | INSURANCE | MERICA | | 15-Pre | | | ity | | | LIFE | | sent | | | | | | [place] | | | | | | + +--------+ +--------+ +---------+--------+ | [employer] | TRANSA | [id number] | 10/19/19 | | | Indemn | [...] brinda/Serjio | | 1945 | [phone] | [place] | | | chas | | | 6 (Home) | [address] | + +--------+ +--------+ + + | Jared Abraham | Person | Self | [birth year] | [address] | | [place] | brinda/Serjio | | 1945 | [phone] | [place] | | | chas | | | 6 (Home) | [address] | + +--------+ +--------+ + + Advance Directives + + + + + | Type | Date Recorded | Patient | Explanation | | | | Slubber Runner | | + + + + + | Power of | | | | | Compensation And Benefits Administrator | | | | + + + + + | Advance | 10/19/2015 1:30 | | | | Directive | PM | | | + + + + +
--- OUTSIDE RECORDS SUMMARY | ~2019-09-02 | XMS | Encounter Summary ---
Demographics + + + | Address | [address] | | | [place] [address] | + + + | Home Phone [...] Providers + +------+ + | Care Surface Water Technician Name | Role | Phone | [...] | pulmonary disease, | | | | [place], | | unspecified COPD | | | | [place] [address] | | type (HCC) (Primary | | | | [phone] | | Dx) | +--------+ + + [...] Abnormal nuclear | | | | | [address] | stress test; Cardiac | | | | | | resynchronization | | | | | | therapy | | | | | | defibrillator | | | | | | (SHIP LINER-D) in place; | | | | | [...] [place] | | | | | | [address] | | | | | | | | +--------+ + + + + | 09/29/ | Office | Cardiology | Poppy Rodriguez | | | 2019 | Visit | | [address] | | | | | | [address] | | | | | | [place] [address] | | | | | | [phone] | | | | | | | | +--------+ + + + + | 10/21/ | Office | Cardiology | Nav Folye, | | | 2019 | Visit | | [address] | | | | | | [place] [address] | | | | | | [phone] | | | | | | | | +--------+ + + + + | 11/04/ | Procedure | Cardiology | | | | 2019 | visit | | | | +--------+ + + + + documented as of this encounter Results PFT PULMONARY FUNCTION TESTING ORDERS Full PFT ([facility] w/BD, lung volumes, diffusion)?: Yes (10/24/2015 3:47 [...] | | Sailaja Nicholson MD 10/24/2015 15:44 [facility] | | | [facility] CC: Carla Juarez PA-C | | + + + documented in this encounter Visit Diagnoses + + | Diagnosis | + + | Chronic obstructive pulmonary disease, unspecified COPD type (HCC) - Primary | + + documented in this encounter"
--- OUTSIDE RECORDS SUMMARY | ~2019-09-02 | XMS | Encounter Summary ---
Demographics + + + | Address | [address] | | | [place] [address] | + + + | Home Phone [...] Team Providers + +------+ + | Care Sign Shop Supervisor Name | Role | Phone | [...] | | | | [place] | [address] | [address] | | | | | Test | [place], | [place], [place] | | | | | | [place] [address] | [address] | | | | | | | Phone: | | | | | | | [phone] | | | | | | | Fax: | | | | | | | [phone] | +--------+--------+ + + + + Reason [...] | | pulmonary | PA-C [address] | | | | | disease, | [address] | [place], | | | | | unspecified | Ave | [place] [address] | | | | | ([facility]) | [place], | | | | | | Procedures | [place] | | | | | | [place] | [address] | | | | | | CONSULT | Phone: | | | | | | | [phone] | | | | | | | Fax: | | | | | | | [phone] | | +--------+--------+ + + + + Encounter Details +--------+---------+ + + + | Date | Type | Department | Care Team | Description | +--------+---------+ + + + | 10/18/ | [facility] | Lyn, | Dyspnea on exertion; | | 2015 | Visit | PULMONARY [address] | Sailaja Chiang MD | Elevated left | | | | [address] [place], | | diaphragm; | | | | [place] [address] | | Panlobular emphysema | | | | [phone] | | ([facility]); Non-ischemic | | | | | | [...] see if it works. Schedule this at [facility]. Do an overnight oxygen test through [facility] [employer]. Call the [employer] before yo u pick it up to make sure they have a box available. You will parts picker a box at the [facility] [employer]. Do the test on room air. Wear [...] years ago. He kinsey mbcriss going to [facility] ER years ago for pneumonia, a [...] mentioned something about being sen t to [facility] at the time). In the [...] at another follow up). He saw the SOLAR MAINTENANCE TECHNICIAN from [facility] cardiology in March 2015, and was noted to require a generator prescott e for his pacemaker defibrillator. This was performed in April. At his last note, in [facility] low up after his generator change, Dr. Foley mentions that he feels that his shortness of carol ath is related to his COPD. His most recent EF is 35-40% on echo in April. He was then seen in the ER at [facility] a total of 4 times. In [...] far, sometimes 2-3 blocks. He has a [employer] tair climber at home, but has not [...] Diagnosis Date COPD (chronic obstructive pulmonary disease) ([facility]) Allergic rhinitis seeing Dr. 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 Has pets at home: Cat Has ever owned birds: Yes an owl back in the s. Other animal exposures: Rabbits, lots of cats and dogs. Hobbies: Going to the [employer]. Allergies: Allergies Allergen Reactions Codeine Anaphylaxis Meperidine [...] made to ensure accuracy; however, inadvertent computerized stamping die maker bench errors may be pre sent. Electronically signed [...] Abnormal nuclear | | | | | [address] | stress test; Cardiac | | | | | | resynchronization | | | | | | therapy | | | | | | defibrillator | | | | | | (HEALTH CLUB ATTENDANT-D) in place; | | | | | [...] [place] | | | | | | [address] | | | | | | | | +--------+ + + + + | 09/29/ | Office | Cardiology | Poppy Rodriguez | | | 2019 | Visit | | [address] | | | | | | [address] | | | | | | [place] [address] | | | | | | [phone] | | | | | | | | +--------+ + + + + | 10/21/ | Office | Cardiology | Nav Foley, | | | 2019 | Visit | | [address] | | | | | | [place] [address] | | | | | | [phone] | | | | | | | [...]
--- OUTSIDE RECORDS SUMMARY | ~2019-09-02 | XMS | Encounter Summary ---
Demographics + + + | Address | [address] | | | [place] [address] | + + + | Home Phone | | + + + | Preferred Language | Unknown | + + + | Marital Status | | + + + | Judaism Affiliation | Unknown | + + + | Race | Unknown | + + + | Ethnic Group | Unknown | + + + Author + + + | Author | [facility] | | | and [place] | + + + | Organization | [facility] | | [...] Team Providers + +------+ + | Care Principal System Software Engineer Name | Role | Phone | + +------+ + | Carla Murphy | PCP | | | PA-C | | | + +------+ + Encounter Details +--------+ + + + + | Date | Type | Department | Care Team | Description | +--------+ + + + + | 08/17/ | Hospital | [facility] | Therese Sarabia | Syncope, unspecified | | 2018 - | Encounter | [facility] | [address] | syncope type; | | | | CARE FLOOR [address] | [place] [address] | V-tach ([facility]) | | 08/19/ | | [address] | [phone] | | | 2017 | | [place], [place] | | | | | | [address] | | | | | | [phone] | | | +--------+ + + + [...] Summaries by Poli Christine MD at 08/19/18 3420 Author: Poli Christine MD Service: (none) Author Type: Physician Filed: 08/19/18 4024 Date of Service: 08/19/18 1719 Status: Signed Merchandise Supervisor: Poli Christine MD (Physician) [facility] Service: Hospitalist Discharge Summary Date of Admission: [...] No discharge procedures on file. Follow up: [facility] Emergency Department [address] [facility] [address] Go to If symptoms worsen Carla Murphy PA-C [address] [place] [address] Schedule an [...] 0 Commonly known as: GLUCOPHAGE Vitamin D3 76193 units Caps Refills: 0 You might also [...] 1450 Date of Service: 08/19/181445 Status: Signed Merchandise Supervisor: Milagros Kirkland RN (Registered Nurse) Discharge paperwork [...] 08/19/18614 Date of Service: 08/19/18613 Status: Signed Merchandise Supervisor: Naveen Caldwell RN (Registered Nurse) Pt having [...] 08/18/182054 Date of Service: 08/18/182045 Status: Signed Merchandise Supervisor: Poli Christine MD (Physician) [facility] Service: Hospitalist Progress Note Hospital Day: LOS: [...] failure with depressed EF, sta tus post ICD/DIRECTOR OF STUDENT FINANCIAL SERVICES insertion. Had been on digoxin outpatient. Digoxin [...] Date of Service: 08/18/18 1554 Status: Addendum Merchandise Supervisor: Milagros Kirkland RN (Registered Nurse) Related Notes: [...] Date of Service: 08/18/18 1501 Status: Signed Merchandise Supervisor: Milagros Kirkland RN (Registered Nurse) Assumed care. Report from KEEGAN Colvin. onver chetna Transaction, Provider Unknown - 08/18/2018 2:28 PM PST Nurse Progress Note by Marii Garza RN at 08/18/18 1428 Author: Marii Garza RN Service: (none) Author Type: Registered Nurse Filed: 08/18/18 1428 Date of Service: 08/18/181427 Status: Signed Merchandise Supervisor: Marii Garza RN (Registered Nurse) Patients pain went from a 3 to a 1. He does not want morphine at this time. Will continue t o monitor. onver chetna Transaction, Provider Unknown - 08/18/2018 1:06 PM PST Progress Notes by Malena Ferro RPH at 08/18/18 1306 Author: Mlaena Ferro RPH Service: Pharmacy Author Type: Pharmacist Filed: 08/18/18 1306 Date of Service: 08/18/18 1306 Status: Signed Merchandise Supervisor: Malena Ferro RPH (Pharmacist) Renal Dosing Monitoring: [...] Date of Service: 08/18/18 1059 Status: Signed Merchandise Supervisor: Yoon Michele RN (Registered Nurse) 08/18/18 1000 [...] discussed discharge planning. Pt resides alone in [place] but is indep wi th all his [...] home Sabra Michele RN CM onver chetna Han[place], Provider Unknown - 08/18/2018 7:02 AM PST Nurse Progress Note by Alize Rosas RN at 08/18/18701 Author: Alize Rosas RN Service: (none) Author Type: Registered Nurse Filed: 08/18/18705 Date of Service: 08/18/18701 Status: Signed Merchandise Supervisor: Alize Rosas RN (Registered Nurse) Patient arrived [...] 08/18/18608 Date of Service: 08/18/18608 Status: Signed Merchandise Supervisor: Therese Sarabia DO (Physician) Dr. Roldan consulted [...] Abnormal nuclear | | | | | [address] | stress test; Cardiac | | | | | | resynchronization | | | | | | therapy | | | | | | defibrillator | | | | | | (DIRECTOR OF STUDENT FINANCIAL SERVICES-D) in place; | | | | | [...] [place] | | | | | | [address] | | | | | | | | +--------+ + + + + | 09/29/ | Office | Cardiology | Jennifer Poppy | | | 2019 | Visit | | [address] | | | | | | [address] | | | | | | [place] [address] | | | | | | [phone] | | | | | | | | +--------+ + + + + | 10/21/ | Office | Cardiology | Nav Foley, | | | 2019 | Visit | | [address] | | | | | | [place] [address] | | | | | | [phone] | | | | | | | [...] + + | David Mckeon Conversion - 04/02/2019 4:53 AM PDT HISTORY:Chest [...] | | | Fingerstick | performed at [facility];[address] | | LAB | | | | [address];[place] | | | | | | [address] | | | | + + + [...] | | | Fingerstick | performed at [facility];[address] | | LAB | | | | [address];[place], [place] | | | | | | [address] | | | | + + + [...] | | | Fingerstick | performed at [facility] | | LAB | | | | [address]iera;[place], [place] | | | | | | [address] | | | | + + + [...] | | | Fingerstick | performed at [facility];[address] | | LAB | | | | [address]iera;[place] | | | | | | [address] | | | | + + [...] At | + + + | FRANCI Jessee VELÁZQUEZ US CAROTID DOPPLER, BILATERAL 08/18/2018 10:53 [...] PDT FRANCI HOLT CAROTID DOPPLER, | | [id number]/30/2018 10:53 AM HISTORY:73 years. Male. Syncope. Ventricular [...] | | | Fingerstick | performed at [facility];[address] | | LAB | | | | [address]iera;[place] | | | | | | [address] | | | | + + + [...] | | | | | | ACUTE AK Testing | | | | | | performed at [facility];[address] | | | | | | [place];[place] | | | | | | [address] | | | | + + + [...] | | | Basophils | performed at [facility], [address] | K/uL | LAB | | | | [place], | | | | | | [place] [address] | | | | + + [...] | | | | | [place] [address] | | | | + + + [...] EXTERNAL | | | | performed at [facility], [address] | | LAB | | | | [place], | | | | | | [place] [address] | | | | + + + [...] EXTERNAL | | | | performed at [facility], [address] | | LAB | | | | [place] [address], | | | | | | [place] [address] | | | | + + + [...] + + | Hemoglobin | 5.5Comment: The Portuguese | 4.0 - 6.0 % | EXTERNAL [...] | | | | | performed at [facility], [address] | | | | | | [facility], | | | | | | [place] [address] | | | | + + + [...] EXTERNAL | | | | performed at [facility];[address] | | LAB | | | | [address]iera;[place] | | | | | | [address] | | | | + + + [...] | | | level | performed at [facility];888 | ng/mL | LAB | | | | [address];[place], [place] | | | | | | [address] | | | | + + + [...] | | | Cholesterol | performed at [facility], [address] | | LAB | | | , | [place], | | | | | Calculated, | [place] [address] | | | | | External | [...] | | | | | performed at [facility], [address] | | | | | | [place] [address], | | | | | | [place] [address] | | | | + + + [...] + + | [facility] | EXTERNAL LAB | + [...] | | | Fingerstick | performed at [facility];[address] | | LAB | | | | [address]iera;[place], [place] | | | | | | [address] | | | | + + + [...] | | | | | | ACUTE [place] Testing | | | | | | performed at [facility] | | | | | | [facility];[place], [place] | | | | | | [address] | | | | + + + [...] LAB | | | | performed at [facility];[address] | | | | | | [address] She[address];[place], [place] | | | | | | [address] | | | | + + + [...] | | | | | ONLY, -COMPUTER (025), | | | | | | electronic news gathering editor Alyson Booth | | | | | | (79) on 08/19/2018 | | | | | | 2:27:53 AM | | | | + + + + + + + + | Specimen | + + | | + + + + + | Narrative | Performed At | + + + | [facility] | EXTERNAL LAB | + + [...]
--- OUTSIDE RECORDS SUMMARY | ~2019-09-02 | XMS | Encounter Summary ---
Demographics + + + | Address | [address] | | | [place] [address] | + + + | Home Phone [...] Team Providers + +------+ + | Care Campaign Developer Name | Role | Phone | [...] + + | 07/02/ | Telephone | [facility] | Constantin Chavez, | Cardiac Problem | | 2019 | | CARDIOLOGY [place] | [address] | | | | | [address] | [place], [place] | | | | | [place], [place] | [address] | | | | | [address] | | | | | | [phone] | | | +--------+ + + + [...] Abnormal nuclear | | | | | [address] | stress test; Cardiac | | | | | | resynchronization | | | | | | therapy | | | | | | defibrillator | | | | | | (SHIFT SUPERVISOR-D) in place; | | | | [...] [place] | | | | | | [address] | | | | | | | | +--------+ + + + + | 09/29/ | Office | Cardiology | Jennifer Poppy | | | 2019 | Visit | | [address] | | | | [address] | | | | | | [place] [address] | | | | | | [phone] | | | | | | | | +--------+ + + + + | 10/21/ | Office | Cardiology | Nav Foley, | | | 2019 | Visit | | [address] | | | | | | [place] [address] | | | | | | [phone] | | | | | | | | +--------+ + + + + | 11/04/ | Procedure | Cardiology | | | | 2019 | visit | | | | +--------+ + + + + documented as of this encounter Visit Diagnoses Not on filedocumented in this encounter"
--- OUTSIDE RECORDS SUMMARY | ~2019-09-02 | XMS | Encounter Summary ---
Demographics + + + | Address | [address] | | | [place] [address] | + + + | Home Phone [...] Team Providers + +------+ + | Care Concrete Pipe Making Machine Operator Name | Role | Phone | + +------+ + | Carla Murphy | PCP | | | PA-C | | | + +------+ + Reason for Visit +--------+ + | Reason | Comments | +--------+ + | Other | left msg for patient to call back | +--------+ + Encounter Details +--------+ + + + + | Date | Type | Department | Care Team | Description | +--------+ + + + + | 08/06/ | Telephone | [facility] | Mary Tipton ANP | Other (left msg for | | 2018 | | CARDIOLOGY [place] | [address] | patient to call | | | | [address] | [place], [place] | back) | | | | [place], [place] | [id number] | | | | | [address] | | | | | | [phone] | | | +--------+ + + + [...] Abnormal nuclear | | | | | [address] | stress test; Cardiac | | | | | | resynchronization | | | | | | therapy | | | | | | defibrillator | | | | | | (SECURITY EXPERT-D) in place; | | | | | [...] [place] | | | | | | [address] | | | | | | | | +--------+ + + + + | 09/29/ | Office | Cardiology | JenniferPoppy | | | 2019 | Visit | | [address] | | | | | | [address] | | | | | | [place] [address] | | | | | | [phone] | | | | | | | | +--------+ + + + + | 10/21/ | Office | Cardiology | Nav Foley, | | | 2019 | Visit | | [address] | | | | | | [place] [address] | | | | | | [phone] | | | | | | | | +--------+ + + + + | 11/04/ | Procedure | Cardiology | | | | 2019 | visit | | | | +--------+ + + + + documented as of this encounter Visit Diagnoses Not on filedocumented in this encounter"
--- OUTSIDE RECORDS SUMMARY | ~2019-09-02 | XMS | Encounter Summary ---
Demographics + + + | Address | [address] | | | [place] [address] | + + + | Home Phone [...] Providers + +------+ + | Care Supervisor Lace Tearing Name | Role | Phone | + [...] + + | 06/18/ | Documentati | [facility] | Erin Sharron Floresita, | Other (end of study) | | 2019 | on | [facility] | Technologist | | | | | [address] | | | | | | [place] | | | | | | [address] | | | | | | [phone] | | | +--------+ + + + [...] 2020 | Encounter | | MD Saravanan [address] [place] [address] | hypertension; | | | | | [place] | Abnormal nuclear | | | | | [address] | stress test; Cardiac | | | | | | resynchronization | | | | | | therapy | | | | | | defibrillator | | | | | | (TECHNICAL COMMUNICATION TEACHER-D) in place; | | | | | | Non-ischemic | | | | | | cardiomyopathy | | | | | | (HCC); Non-sustained | | | | | | ventricular | | | | | | tachycardia ([facility]); | | | | | | Orthostatic | | | | | | hypotension; Dyspnea | | | | | | on exertion; | | | | | | Essential | | | | | | hypertension | +--------+ + + + + | 09/17/ | Surgery | Radiology | Kimmie Wills | [facility] | | 2019 | | | MD [address] | | | | | | [place] | | | | | | [address] | | | | | | | | +--------+ + + + + | 09/29/ | Office | Cardiology | Poppy Rodriguez | | 2019 | Visit | | [address] | | | | | | [address] | | | | | | [place] [address] | | | | | | [phone] | | | | | | | | +--------+ + + + + | 10/21/ | Office | Cardiology | Nav Foley, | | 2019 | Visit | | [address] | | | | | | [place] [address] | | | | | | [phone] | | | | | | | [...]
--- OUTSIDE RECORDS SUMMARY | ~2019-09-02 | XMS | Encounter Summary ---
Demographics + + + | Address | [address] | | | [place] [address] | + + + | Home Phone [...] Providers + +------+ + | Care Balance Recesser Name | Role | Phone | + [...] + + | 07/24/ | Procedure | [facility] | | Non-sustained | | 2019 | visit | CARDIOLOGY [place] | | ventricular | | | | [address] | | tachycardia (HCC) | | | | [place], [place] | | (Primary Dx); | | | | [address] | | Cardiac | | | | [phone] | | resynchronization | | | | | | therapy | | | | | | defibrillator | | | | | | (PLISSE MACHINE OPERATOR HELPER-D) in place; | | | | | [...] hypertension; | | | | | [place] | Abnormal nuclear | | | | | [address] | stress test; Cardiac | | | | | | resynchronization | | | | | | therapy | | | | | | defibrillator | | | | | | (PLISSE MACHINE OPERATOR HELPER-D) in place; | | | | | [...] [place] | | | | | | [address] | | | | | | | | +--------+ + + + + | 09/29/ | Office | Cardiology | Poppy Rodriguez | | | 2019 | Visit | | [address] | | | | | | [address] | | | | | | [place] [address] | | | | | | [phone] | | | | | | | | +--------+ + + + + | 10/21/ | Office | Cardiology | Nav Foley, | | | 2019 | Visit | | MD [address] | | | | | | [place] [address] | | | | | | [phone] | | | | | | | [...] defibrillator | | | | | | (PLISSE MACHINE OPERATOR HELPER-D) in place | | | | | [...] + + | Cardiac resynchronization therapy defibrillator (PLISSE MACHINE OPERATOR HELPER-D) in place | + + | Syncope and collapse | + + | Non-ischemic cardiomyopathy (HCC) Other primary cardiomyopathies | + + documented in this encounter"
--- OUTSIDE RECORDS SUMMARY | ~2019-09-02 | XMS | Encounter Summary ---
Demographics + + + | Address | [address] | | | [place] [address] | + + + | Home Phone [...] Team Providers + +------+ + | Care Educational Advisor Name | Role | Phone | [...] MD | oximetry) | | | | [place], | | | | | | [place] [address] | | | | | | [phone] | | | +--------+ + + + [...] Abnormal nuclear | | | | | [address] | stress test; Cardiac | | | | | | resynchronization | | | | | | therapy | | | | | | defibrillator | | | | | | (MANAGING PARTNER DIGITAL CONTENT MARKET[employer] [place]-D) in place; | | | | | [...] [place] | | | | | | [address] | | | | | | | | +--------+ + + + + | 09/29/ | Office | Cardiology | Poppy Rodriguez | | | 2019 | Visit | | [address] | | | | | | [address] | | | | | | [place] [address] | | | | | | [phone] | | | | | | | | +--------+ + + + + | 10/21/ | Office | Cardiology | Nav Foley, | | | 2019 | Visit | | MD [address] | | | | | | [place] [address] | | | | | | [phone] | | | | | | | [...]
--- OUTSIDE RECORDS SUMMARY | ~2019-09-02 | XMS | Encounter Summary ---
Demographics + + + | Address | [address] | | | [place] [address] | + + + | Home Phone [...] Providers + +------+ + | Care Sales Planning Analyst Name | Role | Phone | [...] | pulmonary disease, | | | | [place], | | unspecified COPD | | | | [place] [address] | | type (HCC) (Primary | | | | [phone] | | Dx) | +--------+ + + [...] Abnormal nuclear | | | | | [address] | stress test; Cardiac | | | | | | resynchronization | | | | | | therapy | | | | | | defibrillator | | | | | | (CPHT-D) in place; | | | | | [...] [place] | | | | | | [address] | | | | | | | | +--------+ + + + + | 09/29/ | Office | Cardiology | Poppy Rodriguez | | | 2019 | Visit | | [address] | | | | | | [address] | | | | | | [place] [address] | | | | | | [phone] | | | | | | | | +--------+ + + + + | 10/21/ | Office | Cardiology | Nav Floey, | | | 2019 | Visit | | [address] | | | | | | [place] [address] | | | | | | [phone] | | | | | | | | +--------+ + + + + | 11/04/ | Procedure | Cardiology | | | | 2019 | visit | | | | +--------+ + + + + documented as of this encounter Results PFT PULMONARY FUNCTION TESTING ORDERS Full PFT ([place] w/BD, lung volumes, diffusion)?: Yes (10/24/2015 3:47 [...] | | Sailaja Nicholson MD 10/24/2015 15:44 [facility] | | | [facility] CC: Carla Juarez PA-C | | + + + documented in this encounter Visit Diagnoses + + | Diagnosis | + + | Chronic obstructive pulmonary disease, unspecified COPD type (HCC) - Primary | + + documented in this encounter"
--- OUTSIDE RECORDS SUMMARY | ~2019-09-02 | XMS | Encounter Summary ---
Demographics + + + | Address | [address] | | | [place] [address] | + + + | Home Phone [...] Team Providers + +------+ + | Care Progressive Care Nurse Name | Role | Phone | + +------+ + | Carla Murphy | PCP | | | PA-C | | | + +------+ + Encounter Details +--------+ + + + + | Date | Type | Department | Care Team | Description | +--------+ + + + + | 01/20/ | Hospital | [facility] | Therese Sarabia DO | Hypotension due to | | 2017 - | Encounter | MEDICAL CENTER | [address] | drugs; Non-sustained | | | | CLINICAL DECISION | [place] [address] | ventricular | | 01/21/ | | [address] | [phone] | tachycardia (HCC) | | 2017 | | [place], [place] | | | | | | [address] | | | | | | [phone] | | | +--------+ + + + [...] 0856 Date of Service: 01/21/17851 Status: Signed Lehr Operator: Beau Rudolph MD (Physician) [facility] Service: Hospitalist Physician Discharge Summary Patient ID: Jared [id number] y.o. 1945 Admit date: 01/20/2017 Discharge [...] Disposition: *Home Follow up: Carla Juarez PA-C [address] [place] [address] Nav Foley MD [facility] [place] [id number] Dictation and weeder thinner or software, Mo-DV, used which may contain error for similar [...] COPD (chronic obstructive pulmonary disease) (HCC) Pacemaker KAKTOVIK (hard of hearing) Hypertension Hyperlipidemia AAA (abdominal aortic aneurysm) (HCC) MOISÉS (obstructive sleep apnea) 01/21/2017 Past Surgical History Procedure Laterality Date Pacemaker insertion 01/22/2014 Appendectomy Hernia repair Tumor removal head and neck Hand surgery tube put in to drain infection. Was put out for it as a child Aortic endograft N/A 09/23/2014 Procedure: AORTIC - ENDOGRAFT; Surgeon: Vincent Fields MD; Location: [facility] OR/ADVERTISING DISPLAY ROTATOR; Ser vice: Vascular; Laterality: N/A; Significant Diagnostic [...] Commonly known as: NASACORT AQ Vitamin D3 53267 units Caps Refills: 0 STOP taking these [...] 01/21/1749 Date of Service: 01/21/17943 Status: Addendum Lehr Operator: Kalpana Bell RN (Registered Nurse) Related Notes: [...] 01/21/17337 Date of Service: 01/21/17337 Status: Signed Lehr Operator: Stanford Camarillo RPH (Pharmacist) Note ccl 103.3ml/min [...] Abnormal nuclear | | | | | [address] | stress test; Cardiac | | | | | | resynchronization | | | | | | therapy | | | | | | defibrillator | | | | | | (PUNCH PRESS OPERATOR-D) in place; | | | | [...] [place] | | | | | | [address] | | | | | | | | +--------+ + + + + | 09/29/ | Office | Cardiology | Poppy Rodriguez | | | 2020 | Visit | | [address] | | | | | | [address] | | | | | | [place] [address] | | | | | | [phone] | | | | | | | | +--------+ + + + + | 10/21/ | Office | Cardiology | Nav Foley, | | | 2019 | Visit | | MD [address] | | | | | | [place] [address] | | | | | | [phone] | | | | | | | [...] | | | | | performed at [facility] | | | | | | [facility];[place], [place] | | | | | | [address] | | | | + + + [...] EXTERNAL | | | | performed at [facility] | | LAB | | | | [address];[place] | | | | | | [address] | | | | + + + [...] + + | Historically converted procedure from [facility] environment | EXTERNAL LAB | + + [...] | | | | | performed at [facility];[address] | | | | | | [address];[place], [place] | | | | | | [address] | | | | + + + [...] | | | | | performed at [facility];[address] | | | | | | [facility];[place], [place] | | | | | | [address] | | | | + + + [...] EXTERNAL | | | | performed at [facility];[address] | | LAB | | | [address];[place], [place] | | | | | | [address] | | | | + + [...] | | | | | performed at [facility];[address] | | | | | | [address];[place], [place] | | | | | | [address] | | | | + + + [...] | | | Basophils | performed at [facility], [address] | K/uL | LAB | | | | [address], | | | | | | [place] [address] | | | | + + + [...] EXTERNAL | | | | performed at [facility];[address] | | LAB | | | | [address];[place], [place] | | | | | | [address] | | | | + + + [...] EXTERNAL | | | | performed at [facility];[address] | | LAB | | | | [address];[place], [place] | | | | | | [address] | | | | + + + [...] EXTERNAL | | | | performed at [facility];[address] | | LAB | | | | [address];[place], [place] | | | | | | [address] | | | | + + + [...] | | | Cholesterol | performed at [facility], [address] | | LAB | | | , | [address], | | | | | Calculated, | [place] [address] | | | | | External | [...] | | | | | | at [facility];[address] | | | | | | [address];[place] [address] | | | | + + + [...] | | | | | performed at [facility];[address] | | | | | | [facility];[place], [place] | | | | | | [address] | | | | + + + [...] | | | Basophils | performed at [facility];[address] | [address] | LAB | | | | [address];[place], [place] | | | | | | [address] | | | | + + + [...] EXTERNAL | | | | performed at [facility];[address] | | LAB | | | | [address];[place], [place] | | | | | | [address] | | | | + + + [...] EXTERNAL | | | | performed at [facility];[address] | | LAB | | | | [address];[place], [place] | | | | | | [address] | | | | + + + [...] EXTERNAL | | | | performed at [facility] | | LAB | | | | [address];[place], [place] | | | | | | [address] | | | | + + + [...] | | | | | | at [facility];[address] [place] [address] | | | | | | [facility];[place] [address] | | | | + + + [...] (500), | | | | | | editor in chief newspaper Desiree Gutierres | | | | | | (18) on 01/23/2017 8:15:00 | | | | | | AM | | | | + + + + + + + + | Specimen | + + | | + + + + + | Narrative | Performed At | + + + | Historically converted procedure from [facility] Epic environment | EXTERNAL LAB | + [...]
--- OUTSIDE RECORDS SUMMARY | ~2019-09-02 | XMS | Encounter Summary ---
Demographics + + + | Address | [address] | | | [place] [address] | + + + | Home Phone [...] Team Providers + +------+ + | Care Resin Mixer Name | Role | Phone | [...] | PULMONARY [address] | RN | ([facility]) | | | | [place], | | | | | | [place] [address] | | | | | | [phone] | | | +--------+ + + + [...] Abnormal nuclear | | | | | [address] | stress test; Cardiac | | | | | | resynchronization | | | | | | therapy | | | | | | defibrillator | | | | | | (CREDIT RESOLUTION REPRESENTATIVE-D) in place; | | | | | [...] | Radiology | Kimmie Wills | CV [facility] | | 2019 | | | MD [address] | | | | | | [place] | | | | | | [address] | | | | | | | | +--------+ + + + + | 09/29/ | Office | Cardiology | Poppy Rodriguez | | 2019 | Visit | | [address] | | | | | | [address] | | | | | | [place] [address] | | | | | | [phone] | | | | | | | | +--------+ + + + + | 10/21/ | Office | Cardiology | Nav Foley Anabela, | | | 2019 | Visit | | MD [address] | | | | | | [facility] [address] | | | | | | [phone] | | | | | | | [...]
--- OUTSIDE RECORDS SUMMARY | ~2019-09-02 | XMS | Encounter Summary ---
Demographics + + + | Address | [address] | | | [place] [address] | + + + | Home Phone [...] Team Providers + +------+ + | Care Composition Weatherboard Installer Name | Role | Phone | [...] + + | 08/21/ | Telephone | [facility] | Mary Tipton ANP | Testing (schedule | | 2019 | | CARDIOLOGY [place] | [address] | testing) | | | | [address] | [place], [place] | | | | | [place], [place] | [address] | | | | | [address] | | | | | | [phone] | | | +--------+ + + + [...] Abnormal nuclear | | | | | [address] | stress test; Cardiac | | | | | | resynchronization | | | | | | therapy | | | | | | defibrillator | | | | | | (RETAIL SALES MANAGER-D) in place; | | | | [...] [place] | | | | | | [address] | | | | | | | | +--------+ + + + + | 09/29/ | Office | Cardiology | Poppy Rodriguez | | | 2019 | Visit | | [address] | | | | | | [address] | | | | | | [place] [address] | | | | | | [phone] | | | | | | | | +--------+ + + + + | 10/21/ | Office | Cardiology | Nav Foley, | | | 2019 | Visit | | [address] | | | | | | [place] [address] | | | | | | [phone] | | | | | | | | +--------+ + + + + | 11/04/ | Procedure | Cardiology | | | | 2019 | visit | | | | +--------+ + + + + documented as of this encounter Visit Diagnoses Not on filedocumented in this encounter"
--- OUTSIDE RECORDS SUMMARY | ~2019-09-02 | XMS | Encounter Summary ---
Demographics + + + | Address | [address] | | | [place] [address] | + + + | Home Phone [...] Providers + +------+ + | Care Director Service Name | Role | Phone | + +------+ + | Carla Murphy | PCP | | | PA-C | | | + +------+ + Encounter Details +--------+ + + + + | Date | Type | Department | Care Team | Description | +--------+ + + + + | 03/15/ | Orders Only | [facility] | Conversion | | | 2016 | | CARDIOLOGY [place] | Transaction, | | | | | [address] | Provider Unknown | | | | | [place], [place] | [phone] | | | | | [address] | (Fax) | | | | | [phone] | | | +--------+ + + + [...] Abnormal nuclear | | | | | [address] | stress test; Cardiac | | | | | | resynchronization | | | | | | therapy | | | | | | defibrillator | | | | | | (MANUAL QA TESTER-D) in place; | | | | [...] | Kimmie Wills | CV [facility] | | 2019 | | | MD [address] | | | | | | [place] | | | | | | [address] | | | | | | | | +--------+ + + + + | 09/29/ | Office | Cardiology | Poppy Rodriguez | | 2019 | Visit | | [address] | | | | | | [address] | | | | | | [place] [address] | | | | | | [phone] | | | | | | | | +--------+ + + + + | 10/21/ | Office | Cardiology | Nav Foley, | | 2019 | Visit | | MD [address] | | | | | | [place] [address] | | | | | | [phone] | | | | | | | [...] | EXTERNAL LAB: DEN[place] | Routin | 11/02/2015 | | Results [...]
--- OUTSIDE RECORDS SUMMARY | ~2019-09-02 | XMS | Encounter Summary ---
Demographics + + + | Address | [address] | | | [place] [address] | + + + | Home Phone [...] Providers + +------+ + | Care Clinical Field Specialist Name | Role | Phone | + +------+ + | Carla Murphy | PCP | | | PA-C | | | + +------+ + Encounter Details +--------+ + + + + | Date | Type | Department | Care Team | Description | +--------+ + + + + | 03/01/ | Hospital | [facility] | Offenstein, | Chronic obstructive | | 2016 | Encounter | MED CTR PULMONARY | Sailaja Chiang MD | pulmonary disease, | | | | FUN[address] | | unspecified COPD | | | | [place], | | type (HCC) | | | | [place] [address] | | | | | | [phone] | | | +--------+ + + + [...] Abnormal nuclear | | | | | 269422 | stress test; Cardiac | | | | | | resynchronization | | | | | | therapy | | | | | | defibrillator | | | | | | (CLINICAL LABORATORY SCIENCE PROFESSOR-D) in place; | | | [...] Radiology | Kimmie Wills | [facility] | | 2019 | | | MD [address] | | | | | | [place] | | | | | | [address] | | | | | | | | +--------+ + + + + | 09/29/ | Office | Cardiology | Poppy Rodriguez | | 2019 | Visit | | [address] | | | | | | [address] | | | | | | [place] [address] | | | | | | [phone] | | | | | | | | +--------+ + + + + | 10/21/ | Office | Cardiology | Alaina Nav Anabela, | | | 2019 | Visit | | MD [address] | | | | | | [place] [address] | | | | | | [phone] | | | | | | | [...] | | Sailaja Nicholson MD 10/24/2015 15:44 [facility] | | [facility] CC: Carla Juarez PA-C | | + [...]
--- OUTSIDE RECORDS SUMMARY | ~2019-09-02 | XMS | Encounter Summary ---
Demographics + + + | Address | [address] | | | [place] [address] | + + + | Home Phone | | + + + | Preferred Language | Unknown | + + + | Marital Status | | + + + | Buddhism Affiliation | Unknown | + + + | Race | Unknown | + + + | Ethnic Group | Unknown | + + + Author + + + | Author | [facility] | | | and [place] | + + + | Organization | [facility] | | [...] Team Providers + +------+ + | Care Fur Examiner Name | Role | Phone | [...] Chiang MD | | | | | [place], | | | | | | [place] [address] | | | | | | [phone] | | | +--------+ + + + [...] Abnormal nuclear | | | | | [address] | stress test; Cardiac | | | | | | resynchronization | | | | | | therapy | | | | | | defibrillator | | | | | | (FACILITY SERVICE ASSOCIATE-D) in place; | | | | | [...] [place] | | | | | | [address] | | | | | | | | +--------+ + + + + | 09/29/ | Office | Cardiology | Poppy Rodriguez | | 2019 | Visit | | [address] | | | | | | [address] | | | | | | [place] [address] | | | | | | [phone] | | | | | | | | +--------+ + + + + | 10/21/ | Office | Cardiology | Nav Foley, | | | 2019 | Visit | | MD [address] | | | | | | [place] [address] | | | | | | [phone] | | | | | | | | +--------+ + + + + | 11/04/ | Procedure | Cardiology | | | | 2019 | visit | | | | +--------+ + + + + documented as of this encounter Visit Diagnoses Not on filedocumented in this encounter"
--- OUTSIDE RECORDS SUMMARY | ~2019-09-02 | XMS | Encounter Summary ---
Demographics + + + | Address | [address] | | | [place] [address] | + + + | Home Phone [...] Providers + +------+ + | Care Supervisor Fishing Name | Role | Phone | + +------+ + | Carla Murphy | PCP | | | PA-C | | | + +------+ + Encounter Details +--------+ + + + + | Date | Type | Department | Care Team | Description | +--------+ + + + + | 03/26/ | Hospital | [facility] | Conversion | Unknown cause of | | 2016 | Encounter | [address] | Transaction, | injury | | | | [address] | Provider Unknown | | | | | [place], [place] | [phone] | | | | | [address] | (Fax) | | | | | [phone] | | | +--------+ + + + [...] Abnormal nuclear | | | | | [address] | stress test; Cardiac | | | | | | resynchronization | | | | | | therapy | | | | | | defibrillator | | | | | | (TRAFFIC RATE COMPUTER-D) in place; | | | | | [...] | Radiology | Kimmie Wills | [facility] | 2019 | | | MD [address] | | | | | | [place] | | | | | | [address] | | | | | | | | +--------+ + + + + | 09/29/ | Office | Cardiology | Poppy Rodriguez | | 2019 | Visit | | [address] | | | | | | [address] | | | | | | [place] [address] | | | | | | [phone] | | | | | | | | +--------+ + + + + | 10/21/ | Office | Cardiology | Nav Foley, | | | 2019 | Visit | | MD [address] | | | | | | [place] [address] | | | | | | [phone] | | | | | | | [...]
--- OUTSIDE RECORDS SUMMARY | ~2019-09-02 | XMS | Encounter Summary ---
Demographics + + + | Address | [address] | | | [place] [address] | + + + | Home Phone [...] Team Providers + +------+ + | Care Cutting And Splicing Supervisor Name | Role | Phone | + +------+ + | Carla Murphy | PCP | | | PA-C | | | + +------+ + Encounter Details +--------+ + + + + | Date | Type | Department | Care Team | Description | +--------+ + + + + | 03/26/ | Hospital | [facility] | Conversion | Unknown cause of | | 2016 | Encounter | CONVERSION [address] | Transaction, | injury | | | | [address] | Provider Unknown | | | | | [place], [place] | [phone] | | | | | [address] | (Fax) | | | | | [phone] | | | +--------+ + + + [...] Abnormal nuclear | | | | | [address] | stress test; Cardiac | | | | | | resynchronization | | | | | | therapy | | | | | | defibrillator | | | | | | (BANQUET SET UP PERSON-D) in place; | | | | | [...] | Radiology | Kimmie Wills | [facility] | 2019 | | | MD [address] | | | | | | [place] | | | | | | [address] | | | | | | | | +--------+ + + + + | 09/29/ | Office | Cardiology | Poppy Rodriguez | | 2019 | Visit | | [address] | | | | | | [address] | | | | | | [place] [address] | | | | | | [phone] | | | | | | | | +--------+ + + + + | 10/21/ | Office | Cardiology | Nav Foley, | | | 2019 | Visit | | [address] | | | | | | [place] [address] | | | | | | [phone] | | | | | | | [...]
--- OUTSIDE RECORDS SUMMARY | ~2019-09-02 | XMS | Encounter Summary ---
Demographics + + + | Address | [address] | | | [place] [address] | + + + | Home Phone [...] Providers + +------+ + | Care Teacher Vocational Training Name | Role | Phone | + +------+ + PCP | Unavailable | + +------+ + Encounter Details +--------+ + + + + | Date | Type | Department | Care Team | Description | +--------+ + + + + | 10/16/ | Hospital | [facility] | Conversion | Pain | | 2015 | Encounter | [address] | Transaction, | | | | | [address] | Provider Unknown | | | | | [place] | [phone] | | | | | [address] | | | | | | [phone] | | | +--------+ + + + [...] Abnormal nuclear | | | | | [address] | stress test; Cardiac | | | | | | resynchronization | | | | | | therapy | | | | | | defibrillator | | | | | | (CHARGE LPN-D) in place; | | | | | [...] Radiology | Kimmie Wills | [facility] | | 2019 | | | MD [address] | | | | | | [place] | | | | | | [address] | | | | | | | | +--------+ + + + + | 09/29/ | Office | Cardiology | Poppy Rodriguez | | | 2019 | Visit | | [address] | | | | | | [address] | | | | | | [place] [address] | | | | | | [phone] | | | | | | | | +--------+ + + + + | 10/21/ | Office | Cardiology | Nav Foley, | | | 2019 | Visit | | MD [address] | | | | | | [place] [address] | | | | | | [phone] | | | | | | | [...]
--- OUTSIDE RECORDS SUMMARY | ~2019-09-02 | XMS | Encounter Summary ---
Demographics + + + | Address | [address] | | | [place] [address] | + + + | Home Phone [...] Team Providers + +------+ + | Care Stock Blender Name | Role | Phone | + [...] + + | 08/06/ | Telephone | [facility] | Mary Tipton ANP | Other (left msg for | | 2018 | | CARDIOLOGY [place] | [address] | patient to call | | | | [address] | [place], [place] | back) | | | | [place], [place] | [id number] | | | | | [address] | | | | | | [phone] | | | +--------+ + + + [...] Abnormal nuclear | | | | | [address] | stress test; Cardiac | | | | | | resynchronization | | | | | | therapy | | | | | | defibrillator | | | | | | (VAUDEVILLE ACTOR-D) in place; | | | | | [...] [place] | | | | | | [address] | | | | | | | | +--------+ + + + + | 09/29/ | Office | Cardiology | JenniferPoppy | | | 2019 | Visit | | [address] | | | | | | [address] | | | | | | [place] [address] | | | | | | [phone] | | | | | | | | +--------+ + + + + | 10/21/ | Office | Cardiology | Nav Foley, | | | 2019 | Visit | | [address] | | | | | | [place] [address] | | | | | | [phone] | | | | | | | | +--------+ + + + + | 11/04/ | Procedure | Cardiology | | | | 2019 | visit | | | | +--------+ + + + + documented as of this encounter Visit Diagnoses Not on filedocumented in this encounter"
--- OUTSIDE RECORDS SUMMARY | ~2019-09-02 | XMS | Encounter Summary ---
Demographics + + + | Address | [address] | | | [place] [address] | + + + | Home Phone [...] Team Providers + +------+ + | Care Imaging Account Manager Name | Role | Phone | [...] + + | 08/25/ | Telephone | [facility] | Mary Tipton ANP | Appointment | | 2020 | | CARDIOLOGY [place] | [address] | | | | | [address] | [place], [place] | | | | | [place], [place] | [address] | | | | | [address] | | | | | | [phone] | | | +--------+ + + + [...] Abnormal nuclear | | | | | [address] | stress test; Cardiac | | | | | | resynchronization | | | | | | therapy | | | | | | defibrillator | | | | | | (LEATHER CARTRIDGE BELT MAKER-D) in place; | | | | | [...] [place] | | | | | | [address] | | | | | | | | +--------+ + + + + | 09/29/ | Office | Cardiology | Poppy Rodriguez | | | 2019 | Visit | | [address] | | | | | | [address] | | | | | | [place] [address] | | | | | | [phone] | | | | | | | | +--------+ + + + + | 10/21/ | Office | Cardiology | Nav Foley, | | | 2019 | Visit | | [address] | | | | | | [facility] [place] [address] | | | | | | [phone] | | | | | | | | +--------+ + + + + | 11/04/ | Procedure | Cardiology | | | | 2019 | visit | | | | +--------+ + + + + documented as of this encounter Visit Diagnoses Not on filedocumented in this encounter"
--- OUTSIDE RECORDS SUMMARY | ~2019-09-02 | XMS | Encounter Summary ---
Demographics + + + | Address | [address] | | | [place] [address] | + + + | Home Phone | | + + + | Preferred Language | Unknown | + + + | Marital Status | | + + + | Druze Affiliation | Unknown | + + + [...] Team Providers + +------+ + | Care Violin Teacher Name | Role | Phone | [...] | | stress test | [address] [place] [address] | | | | | Procedures | [address] | Med [address] | | | | | [place] Nuclear | [address] [address] | [address] | | | | | Stress Test | [place], [place] | [place], [place] | | | | | (Vasodilator | [address] | [address] | | | | | ) | Phone: | Phone: | | | | | | [phone] | [phone] | | | | | | Fax: | Fax: | | | | | | [phone] | [phone] | + +--------+ + + + + Encounter Details +--------+ + + + + | Date | Type | Department | Care Team | Description | +--------+ + + + + | 08/05/ | Orders Only | [facility] | Mary Tipton, ANP | Abnormal stress test | | 2019 | | CARDIOLOGY [place] | [address] | (Primary Dx) | | | | [address] | [place] | | | | | [place] | [address] | | | | | [address] | | | | | | [phone] | | | +--------+ + + + [...] Abnormal nuclear | | | | | [address] | stress test; Cardiac | | | | | | resynchronization | | | | | | therapy | | | | | | defibrillator | | | | | | (PUMP PRESS OPERATOR-D) in place; | | | [...] [place] | | | | | | [address] | | | | | | | | +--------+ + + + + | 09/29/ | Office | Cardiology | Poppy Rodriguez | | | 2019 | Visit | | [address] | | | | | | [address] | | | | | | [place] [address] | | | | | | [phone] | | | | | | | | +--------+ + + + + | 10/21/ | Office | Cardiology | Nav Foley, | | | 2019 | Visit | | MD [address] | | | | | | [facility] [address] | | | | | | [phone] | | | | | | | [...]
--- OUTSIDE RECORDS SUMMARY | ~2019-09-02 | XMS | Clinical Summary ---
Demographics + + + | Address | [address] | | | [place] [address] | + + + | Home Phone | | + + + | Preferred Language | Unknown | + + + | Marital Status | | + + + | Rastafari Affiliation | Unknown | + + + | Race | Unknown | + + + | Ethnic Group | Unknown | + + + Author + + + | Author | [employer] [facility] ([email or web address]) (Historical as of | | | 04-05-19) | + + + | Organization | [facility] ([email or web address]) (Historical as of | | | 04-05-19) [...] Providers + +------+ + | Care Process Eng Name | Role | Phone | + [...] (diabetes mellitus, type II), controlled ([facility]) | 08/18/2018 | + + + [...] 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 Chiang in January | | 2009.Generator change by Dr. Delarosa in 2014 viva xt MUSKRAT TRAPPER D MDT | | number [id number].Patient has a 5076 atrial lead Medtronic. 6947 [...] QRS duration of over 160 ms. A MUSKRAT TRAPPER defibrillator | | was subsequently placed by [...] / Lot | + +--------+------+ +--------+--------+--------+ | Senior Training And Development Rep-D-05/17/2015Implanted: | Cardia | | [employer] - | [...] +------+-------+ + | MEDICARE | MEDICA | [id number] | | | [address] | | | RE | | | | [place] [address] | | | IP-OP | | | | | + +--------+ +------+-------+ + | COMMERCIAL OTHER | TRANSA | [id number] | | | | | | MERICA [...] | chas | | | 1964 | [address] | + +--------+ +--------+ + +
--- OUTSIDE RECORDS SUMMARY | ~2019-09-02 | XMS | Encounter Summary ---
Demographics + + + | Address | [address] | | | [place] [address] | + + + | Home Phone [...] Team Providers + +------+ + | Care Commissary Production Supervisor Name | Role | Phone | [...] MD | oximetry) | | | | [place], | | | | | | [place] [address] | | | | | | [phone] | | | +--------+ + + + [...] Abnormal nuclear | | | | | [address] | stress test; Cardiac | | | | | | resynchronization | | | | | | therapy | | | | | | defibrillator | | | | | | (IMPLEMENTATION CONSULTANT-D) in place; | | | | | [...] [place] | | | | | | [address] | | | | | | | | +--------+ + + + + | 09/29/ | Office | Cardiology | Poppy Rodriguez | | | 2019 | Visit | | [address] | | | | | | [address] | | | | | | [place] [address] | | | | | | [phone] | | | | | | | | +--------+ + + + + | 10/21/ | Office | Cardiology | Nav Foley, | | | 2019 | Visit | | MD Santos [address] | | | | | | [place] [address] | | | | | | [phone] | | | | | | | [...]
--- OUTSIDE RECORDS SUMMARY | ~2019-09-02 | XMS | Encounter Summary ---
Demographics + + + | Address | [address] | | | [place] [address] | + + + | Home Phone | | + + + | Preferred Language | Unknown | + + + | Marital Status | | + + + | Advent Affiliation | Unknown | + + + [...] Team Providers + +------+ + | Care Traveling Passenger Agent Name | Role | Phone | [...] | | [address] | [place], [place] | | | | | [place], [place] | [address] | | | | | [address] | | | | | | [phone] | | | +--------+ + + + [...] Abnormal nuclear | | | | | [address] | stress test; Cardiac | | | | | | resynchronization | | | | | | therapy | | | | | | defibrillator | | | | | | (INSTRUCTION LIBRARIAN-D) in place; | | | | | [...] | Radiology | Kimmie Wills | [facility] | | 2019 | | | MD Saravanan [address] | | | | | | [place] | | | | | | [address] | | | | | | | | +--------+ + + + + | 09/29/ | Office | Cardiology | Poppy Rodriguez | | 2019 | Visit | | [address] | | | | | | [address] | | | | | | [place] [address] | | | | | | [phone] | | | | | | | | +--------+ + + + + | 10/21/ | Office | Cardiology | Nav Foley, | | 2019 | Visit | | [address] | | | | | | [place] [address] | | | | | | [phone] | | | | | | | [...] 9.77 RAP: 3 mmHg | | | Engineering Assistant: NIGEL Authenticated by: Gretchen Joy Report | | | Date/Time: 09-26-2017 7:40:19 | | + + + + ---+ | Procedure Note | + ---+ | David Mckeon Conversion - 04/10/2019 3:23 PM PDT Patient Name: Silvia VELÁZQUEZ | | of : 1945 Performing Physician: Gretchen | | Gracevichy INDICATIONS------ | | -----cardiomyopathy, aicd, beulah CONCLUSIONS [...] mlLAESV Index (A-L): 37.87 ml/m2LAAs A2C: 22.69 [id number] | | A-L A2C: 93.63 mlLALs A2C: 4.66 cmLAAs A4C: 19.88 [id number] A-L A4C: 77.98 mlLALs | | A4C: 4.30 cmRAAd: 23.19 [id number] A-L: 97.65 mlRAEDV MOD: 89.83 mlRALd: 4.67 | | cmTAPSE: 2.19 cmAV maxP.27 mmHgAV meanP.41 mmHgAV Vmax: 1.03 m/Fabricio | | Vmean: 0.73 m/Fabricio VTI: 19.23 cmAVA Vmax: 4.21 cm2AVA (VTI): 4.42 [id number] Vmax: | | 0.00 cm2/m2AVAI (VTI): 0.00 cm2/m2LVOT maxP.13 mmHgLVOT meanP.63 mmHgLVSI | | Dopp: 36.18 ml/m2LVSV Dopp: 85.04 mlLVOT Vmax: 0.88 m/sLVOT Vmean: 0.61 m/sLVOT | | VTI: 17.26 cmMV E Frank: 0.83 m/sMV DecT: 110.72 msSeptal e': 0.09 m/sSeptal | | E/e': 8.70Lateral e': 0.08 m/sLateral E/e': 9.77RAP: 3 mmHg Engineering Assistant: | | DBSAuthenticated by: Gretchen [facility] Date/Time: 09-26-2017 7:40:19 IMPRESSION: 1. [...] | |RAP: 3 mmHg | | | |Engineering Assistant: NIGEL | |Authenticated by: Gretchen Joy | [...]
--- OUTSIDE RECORDS SUMMARY | ~2019-09-02 | XMS | Encounter Summary ---
Demographics + + + | Address | [address] | | | [place] [address] | + + + | Home Phone [...] Team Providers + +------+ + | Care Electronic Imager Name | Role | Phone | + +------+ + PCP | Unavailable | + +------+ + Encounter Details +--------+ + + + + | Date | Type | Department | Care Team | Description | +--------+ + + + + | 09/16/ | Hospital | [facility] | Conversion | Pain | | 2015 | Encounter | CONVERSION DEP [address] | Transaction, | | | | | [address] | Provider Unknown | | | | | [place] | [phone] | | | | | [address] | | | | | | [phone] | | | +--------+ + + + [...] Abnormal nuclear | | | | | [address] | stress test; Cardiac | | | | | | resynchronization | | | | | | therapy | | | | | | defibrillator | | | | | | (QUALITY ANALYST-D) in place; | | | | [...] | Radiology | Kimmie Wills | [facility] | | 2019 | | | MD Saravan[address] | | | | | | [place] | | | | | | [address] | | | | | | | | +--------+ + + + + | 09/29/ | Office | Cardiology | Poppy Rodriguez | | | 2019 | Visit | | [address] | | | | | | [address] | | | | | | [place] [address] | | | | | | [phone] | | | | | | | | +--------+ + + + + | 10/21/ | Office | Cardiology | Nav Foley, | | | 2019 | Visit | | MD Santos [address] | | | | | | [place] [address] | | | | | | [phone] | | | | | | | [...]
--- OUTSIDE RECORDS SUMMARY | ~2019-09-02 | XMS | Encounter Summary ---
Demographics + + + | Address | [address] | | | [place] [address] | + + + | Home Phone [...] Team Providers + +------+ + | Care Tv News Director Name | Role | Phone | [...] MANAGEMENT | | | | | | [phone] | | | +--------+ + + + [...] f rom the original. Referral Referral # [id number] Referral Information Referral # Creation Date Referral Status Status Update [id number] 01/21/2016 Authorized 01/24/2016:Status History. Status Reason Referral Type Referral Reasons Referral Class No Approval Necessary - Patient Tracking Evaluate & Treat none Outgoing To Specialty To Provider To Location/POS To Department none none [facility] none Vendor Referred By By Location/POS By Department none Sailaja B Offenstein none [facility] Priority Start Date Expiration Date Referral Entered By Routine 01/21/2016 07/19/2016 LYNDSAY LYNN Visits Requested Visits Authorized Visits Completed Visits Scheduled 1 1 Procedure Information Procedure Modifiers Provider Requested Approved [id number] (CPT) - OR OFFICE OUTPATIENT VISIT 25 MINUTES 1 1 Authorizing Provider Authorizing Provider Diagnosis Information Diagnosis J44.9 (ICD-10-CM) - 496 (ICD-9-CM) - COPD (chronic obstructive pulmonary disease) ([facility]) Active Insurance as of 02/01/2016 MEDICARE - MEDICARE PART A AND B Payor Plan Insurance Group Employer/Plan Group MEDICARE MEDICARE PART A AND B Payor Plan Address Payor Plan Phone Number Effective From Effective To [address] 10/18/2012 [place] [address] Subscriber Name Subscriber Date Member ID FRANCI VELÁZQUEZ 1945 [id number] Guarantor Name (ID) Guarantor Date Guarantor Address Guarantor Type FRANCI VELÁZQUEZ ([id number]) 1945 [address] [place] [address] [employer] Payor Plan Insurance Group Employer/Plan Group [employer] PLAN G Payor Plan Address Payor Plan Phone Number Effective From Effective To [address] 10/18/2014 [place] [address] Subscriber Name Subscriber Date Member ID FRANCI VELÁZQUEZ 1945 [id number] Guarantor Name (ID) Guarantor Date Guarantor Address Guarantor Type FRANCI VELÁZQUEZ ([id number]) 1945 [address] [place] [address] Referral Notes Type Date User General 01/31/2016 8235 LYNDSAY LYNN Note Please send the following information for referral purposes. Status (Emergent/Urgent/Routine): routine External Referral Form ([facility]/Other):no Referred to Provider: [facility] Include: Patient Demographics Chart Notes (Provider Name/Date): Offenstein Referral Letter: no Procedure(s): if any Pathology: if any Imaging: yes Labs: most recent Other: any other pertinent pulmonary records Type Date User General 01/24/2016 1035 ASHOK DUARTE Summary ??> APPROVED> OFFENSTEIN> CONTINUITY OF CARE> [facility] Note APPROVED New - Scheduling Minimum Data Set | Provider Notes: | Payer: [employer] SUPP PLAN G | Subscriber Name: Self | & [id number] | Auth ID: Not required by payer | CPT Provided? Yes | Dx Code Provided? | Additional Contact Info: - NO ABN REQUIRED PER MED ASSETS CODE COMPLIANCE [facility] SU[facility] - NO PA REQUIRED. FOLLOWS GUIDELINES PER CALL TO BRITTNEE. [phone] Type Date User General 01/21/2016 164LYNDSAY POOLE Note Referral to [facility] for continued care documented [...] Abnormal nuclear | | | | | [address] | stress test; Cardiac | | | | | | resynchronization | | | | | | therapy | | | | | | defibrillator | | | | | | (PRODUCE SERVICE TEAM MEMBER-D) in place; | | | [...] [place] | | | | | | [address] | | | | | | | | +--------+ + + + + | 09/29/ | Office | Cardiology | TonmanaPoppy | | | 2019 | Visit | | [address] | | | | | | [address] | | | | | | [place] [address] | | | | | | [phone] | | | | | | | | +--------+ + + + + | 10/21/ | Office | Cardiology | Nav Foley, | | | 2019 | Visit | | [address] | | | | | | [place] [address] | | | | | | [phone] | | | | | | | | +--------+ + + + + | 11/04/ | Procedure | Cardiology | | | | 2019 | visit | | | | +--------+ + + + + documented as of this encounter Visit Diagnoses Not on filedocumented in this encounter"
--- OUTSIDE RECORDS SUMMARY | ~2019-09-02 | XMS | Encounter Summary ---
Demographics + + + | Address | [address] | | | [place] [address] | + + + | Home Phone [...] Providers + +------+ + | Care Director Industrial Relations Name | Role | Phone | + [...] | | 2019 | on | [facility] | Technologist | | | | | [address] | | | | | | [place] | | | | | | [address] | | | | | | [phone] | | | +--------+ + + + [...] 2020 | Encounter | | MD Saravanan [address] [place] [address] | hypertension; | | | | | [place] | Abnormal nuclear | | | | | [address] | stress test; Cardiac | | | | | | resynchronization | | | | | | therapy | | | | | | defibrillator | | | | | | (PASSENGER LOCOMOTIVE ENGINEER-D) in place; | | | | | | Non-ischemic | | | | | | cardiomyopathy | | | | | | (HCC); Non-sustained | | | | | | ventricular | | | | | | tachycardia ([facility]); | | | | | | Orthostatic | | | | | | hypotension; Dyspnea | | | | | | on exertion; | | | | | | Essential | | | | | | hypertension | +--------+ + + + + | 09/17/ | Surgery | Radiology | Kimmie Wills | [facility] | | 2019 | | | MD [address] | | | | | | [place] | | | | | | [address] | | | | | | | | +--------+ + + + + | 09/29/ | Office | Cardiology | Poppy Rodriguez | | 2019 | Visit | | [address] | | | | | | [address] | | | | | | [place] [address] | | | | | | [phone] | | | | | | | | +--------+ + + + + | 10/21/ | Office | Cardiology | Nav Foley, | | 2019 | Visit | | [address] | | | | | | [place] [address] | | | | | | [phone] | | | | | | | [...]
--- OUTSIDE RECORDS SUMMARY | ~2019-09-02 | XMS | Encounter Summary ---
Demographics + + + | Address | [address] | | | [place] [address] | + + + | Home Phone [...] Team Providers + +------+ + | Care Ware Finisher Name | Role | Phone | + +------+ + | Carla Murphy | PCP | | | PA-C | | | + +------+ + Encounter Details +--------+ + + + + | Date | Type | Department | Care Team | Description | +--------+ + + + + | 03/26/ | Hospital | [facility] | Conversion | Unknown cause of | | 2016 | Encounter | CONVERSION [address]P [address] | Transaction, | injury | | | | [address] | Provider Unknown | | | | | [place], [place] | [phone] | | | | | [phone] | (Fax) | | | | | [phone] | | | +--------+ + + + [...] Abnormal nuclear | | | | | [address] | stress test; Cardiac | | | | | | resynchronization | | | | | | therapy | | | | | | defibrillator | | | | | | (TOOL AND DIE MANAGER-D) in place; | | | | [...] Radiology | Kimmie Wills | [facility] | 2019 | | | MD [address]avan[address] | | | | | | [place] | | | | | | [address] | | | | | | | | +--------+ + + + + | 09/29/ | Office | Cardiology | Poppy Rodriguez | | 2019 | Visit | | [address] | | | | | | [address] | | | | | | [place] [address] | | | | | | [phone] | | | | | | | | +--------+ + + + + | 10/21/ | Office | Cardiology | Nav Foley, | | | 2019 | Visit | | [address] | | | | | | [place] [address] | | | | | | [phone] | | | | | | | [...]
--- OUTSIDE RECORDS SUMMARY | ~2019-09-02 | XMS | Encounter Summary ---
Demographics + + + | Address | [address] | | | [place] [address] | + + + | Home Phone [...] Team Providers + +------+ + | Care Dedicated Local Truck Driver Name | Role | Phone | + +------+ + | Carla Murphy | PCP | | | PA-C | | | + +------+ + Encounter Details +--------+ + + + + | Date | Type | Department | Care Team | Description | +--------+ + + + + | 03/26/ | Hospital | [facility] | Conversion | Unknown cause of | | 2016 | Encounter | CONVERSION DEP [address] | Transaction, | injury | | | | [address] | Provider Unknown | | | | | [place] | [phone] | | | | | [phone] | (Fax) | | | | | [phone] | | | +--------+ + + + [...] Abnormal nuclear | | | | | [address] | stress test; Cardiac | | | | | | resynchronization | | | | | | therapy | | | | | | defibrillator | | | | | | (KEY BED INSTALLER-D) in place; | | | | | [...] | Radiology | Kimmie Wills | [facility] | 2019 | | | MD [address] | | | | | | [place] | | | | | | [address] | | | | | | | | +--------+ + + + + | 09/29/ | Office | Cardiology | Poppy Rodriguez | | 2019 | Visit | | [address] | | | | | | [address] | | | | | | [place] [address] | | | | | | [phone] | | | | | | | | +--------+ + + + + | 10/21/ | Office | Cardiology | Nav Foley, | | | 2019 | Visit | | MD [address] | | | | | | [place] [address] | | | | | | [phone] | | | | | | | [...]
--- OUTSIDE RECORDS SUMMARY | ~2019-09-02 | XMS | Encounter Summary ---
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 He did notice a difference the first day this was done. Per notes "Attem pted FELT CUTTER optimization today; however, any time LV offset was changed, patient became dizzy a nd felt near-syncopal. BP throughout was stable. Ultimately, reverted back to LV offset -40, as this was the only setting he felt well. Even AdaptiveCRT made him profoundly symptomatic . Unfortunately, given these symptoms, patient did not tolerate FELT CUTTER optimization. I did thornton ge him from DDD to DDDR, even though HR histograms showed good distribution of HRs, in hopes that this may give him improved activity tolerance." He is currently on a regimen of Spiriva one capsule inhaled daily. He notes he has run acro ss a couple of these that are empty. He contacted the vine pruner, and he did get 10 capsul es [...] He is currently on 3.5 LPM at [facility]. He reports good compliance. He remains very [...] Diagnosis Date COPD (chronic obstructive pulmonary disease) ([facility]) Allergic rhinitis seeing Dr. 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 Has pets at home: Cat Has ever owned birds: Yes an owl back in the s. Other animal exposures: Rabbits, lots of cats and dogs. Hobbies: Going to the [employer]. Allergies: Allergies Allergen Reactions Codeine Anaphylaxis Meperidine [...] made to ensure accuracy; however, inadvertent computerized bank messenger errors may be pre sent. Electronically signed [...] Abnormal nuclear | | | | | [address] | stress test; Cardiac | | | | | | resynchronization | | | | | | therapy | | | | | | defibrillator | | | | | | (FELT CUTTER-D) in place; | | | | [...] | Radiology | Kimmie Wills | [facility] | 2019 | | | MD Saravanan [address] | | | | | | [place] | | | | | | [address] | | | | | | | | +--------+ + + + + | 09/29/ | Office | Cardiology | Poppy Rodriguez | | 2019 | Visit | | [address] | | | | | | [address] | | | | | | [place] [address] | | | | | | [phone] | | | | | | | | +--------+ + + + + | 10/21/ | Office | Cardiology | Nav Foley, | | | 2019 | Visit | | MD [address] | | | | | | [place] [address] | | | | | | [phone] | | | | | | | [...]
--- OUTSIDE RECORDS SUMMARY | ~2019-09-02 | XMS | Encounter Summary ---
Demographics + + + | Address | [address] | | | [place] [address] | + + + | Home Phone [...] Phone | + + +---------+ + | Chapm Abraham | ECON | Unknown | | + + +---------+ + Care Team Providers + +------+ + | Care Nickel Operator Name | Role | Phone | + +------+ + PCP | Unavailable | + +------+ + Encounter Details +--------+ + + + + | Date | Type | Department | Care Team | Description | +--------+ + + + + | 09/15/ | Hospital | [facility] | Conversion | Pain | | 2015 | Encounter | CONVERSION DEP [address] | Transaction, | | | | | [address] | Provider Unknown | | | | | [place] | [phone] | | | | | [address] | | | | | | [phone] | | | +--------+ + + + [...] Abnormal nuclear | | | | | [address] | stress test; Cardiac | | | | | | resynchronization | | | | | | therapy | | | | | | defibrillator | | | | | | (REFINING SUPERVISOR-D) in place; | | | | [...] | Kimmie Wills | [facility] | | 2019 | | | MD Saravanan [address] | | | | | | [place] | | | | | | [address] | | | | | | | | +--------+ + + + + | 09/29/ | Office | Cardiology | Poppy Rodriguez | | | 2019 | Visit | | [address] | | | | | | [address] | | | | | | [place] [address] | | | | | | [phone] | | | | | | | | +--------+ + + + + | 10/21/ | Office | Cardiology | Nav Foley, | | | 2019 | Visit | | MD Santos [address] | | | | | | [place] [address] | | | | | | [phone] | | | | | | | [...]
--- OUTSIDE RECORDS SUMMARY | ~2019-09-02 | XMS | Clinical Summary ---
Demographics + + + | Address | [address] | | | [place] [address] | + + + | Home Phone | | + + + | Preferred Language | Unknown | + + + | Marital Status | | + + + | Gnosticist Affiliation | Unknown | + + + | Race | Unknown | + + + | Ethnic Group | Unknown | + + + Author + + + | Author | [employer] (Historical as of | | | 04-05-19) | + + + | Organization | [facility] [employer] (Historical as of | | | 04-05-19) [...] + +------+ + | Care Sales Promotion Officer Name | Role | Phone | [...] DM II (diabetes mellitus, type II), controlled ([facility]) | 08/18/2018 | + + [...] assistant in | | the 70s and 80s." [...] + + | Cardiac resynchronization therapy defibrillator (TALENT SCOUT-D) in place | 01/21/2017 | + + + + + | Overview: History of nonischemic cardiomyopathy, NYHA class | | II, status post implantation of a MDT TALENT SCOUT-D by Dr. Chiang in January | | 2009.Generator change by Dr. Delarosa in 2014 viva xt TALENT SCOUT D MDT | | number [id number].Patient has a 5076 atrial lead Medtronic. 6947 [...] QRS duration of over 160 ms. A TALENT SCOUT defibrillator | | was subsequently placed by [...] / Lot | + +--------+------+ +--------+--------+--------+ | Revenue Stamp Cutter-D-05/17/2015Implanted: | Cardia | | [employer] - | [...] +------+-------+ + | MEDICARE | MEDICA | [id number] | | | [address] | | | RE | | | | [place] [address] | | | IP-OP | | | | | + +--------+ +------+-------+ + | COMMERCIAL OTHER | TRANSA | [id number] | | | | | | [place] [...] | chas | | | 1964 | [address] | + +--------+ +--------+ + +
--- OUTSIDE RECORDS SUMMARY | ~2019-09-02 | XMS | Encounter Summary ---
Demographics + + + | Address | [address] | | | [place] [address] | + + + | Home Phone [...] Team Providers + +------+ + | Care Sap Portal Consultant Name | Role | Phone | + +------+ + PCP | Unavailable | + +------+ + Encounter Details +--------+ + + + + | Date | Type | Department | Care Team | Description | +--------+ + + + + | 05/11/ | Hospital | [facility] | Conversion | Pain | | 2015 | Encounter | CONVERSION DEP [address] | Transaction, | | | | | [address] | Provider Unknown | | | | | [place] | [phone] | | | | | [address] | | | | | | [phone] | | | +--------+ + + + [...] Abnormal nuclear | | | | | [address] | stress test; Cardiac | | | | | | resynchronization | | | | | | therapy | | | | | | defibrillator | | | | | | (CONTRACT CLERK-D) in place; | | | | [...] | Radiology | Kimmie Wills | [facility] | | 2019 | | | MD Saravan[address] | | | | | | [place] | | | | | | [address] | | | | | | | | +--------+ + + + + | 09/29/ | Office | Cardiology | Poppy Rodriguez | | | 2019 | Visit | | [address] | | | | | | [address] | | | | | | [place] [address] | | | | | | [phone] | | | | | | | | +--------+ + + + + | 10/21/ | Office | Cardiology | Nav Foley, | | | 2019 | Visit | | MD [address] | | | | | | [place] [address] | | | | | | [phone] | | | | | | | [...]
--- OUTSIDE RECORDS SUMMARY | ~2019-09-02 | XMS | Encounter Summary ---
Demographics + + + | Address | [address] | | | [place] [address] | + + + | Home Phone [...] Team Providers + +------+ + | Care Ophthalmic Pathologist Name | Role | Phone | + [...] Chiang MD | | | | | [place], | | | | | | [place] [address] | | | | | | [phone] | | | +--------+ + + + [...] hypertension; | | | | | DR [place], [place] | Abnormal nuclear | | | | | [id number] | stress test; Cardiac | | | | | | resynchronization | | | | | | therapy | | | | | | defibrillator | | | | | | (HUMAN RESOURCES COORDINATOR-D) in place; | | | | [...] | Radiology | Darindavis Roulafariba | [facility] | | 2019 | | | MD [address] Coe | | | | | | [place] | | | | | | [address] | | | | | | | | +--------+ + + + + | 09/29/ | Office | Cardiology | Poppy Rodriguez | | 2019 | Visit | | [address] | | | | | | [address] | | | | | | [place] [address] | | | | | | [phone] | | | | | | | | +--------+ + + + + | 10/21/ | Office | Cardiology | Nav Foley, | | | 2019 | Visit | | [address] | | | | | | [place] [address] | | | | | | [phone] | | | | | | | [...] + | [facility] | [address] | [place] | [phone] | | [facility] | | [address] | | | - LABORATORY | | [...] [address] | [place] | [phone] | | [facility] | | [address] | | | - LABORATORY | | [...] [address] | [place] | [phone] | | [facility] | | [address] | | | - LABORATORY | | [...]
--- OUTSIDE RECORDS SUMMARY | ~2019-09-02 | XMS | Encounter Summary ---
Demographics + + + | Address | [address] | | | [place] [address] | + + + | Home Phone [...] Providers + +------+ + | Care Environmental Geologist Name | Role | Phone | + [...] MD | diaphragm | | | | [place], | | | | | | [place] [address] | | | | | | [phone] | | | +--------+ + + + [...] Abnormal nuclear | | | | | [address] | stress test; Cardiac | | | | | | resynchronization | | | | | | therapy | | | | | | defibrillator | | | | | | (CORROSION CONTROL SPECIALIST-D) in place; | | | | [...] Radiology | Kimmie Wills | [facility] | | 2019 | | | MD [address]e | | | | | | [place] | | | | | | [address] | | | | | | | | +--------+ + + + + | 09/29/ | Office | Cardiology | Poppy Rodriguez | | 2019 | Visit | | [address] | | | | | | [address] | | | | | | [place] [address] | | | | | | [phone] | | | | | | | | +--------+ + + + + | 10/21/ | Office | Cardiology | Nav Foley, | | 2019 | Visit | [address] | | | | | | [place] [address] | | | | | | [phone] | | | | | | | [...]
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
--- OUTSIDE RECORDS SUMMARY | ~2019-09-02 | XMS | Encounter Summary ---
Demographics + + + | Address | [address] | | | [place] [address] | + + + | Home Phone [...] Team Providers + +------+ + | Care Taxicab Dispatcher Name | Role | Phone | + +------+ + | Carla Murphy | PCP | | | PA-C | | | + +------+ + Encounter Details +--------+ + + + + | Date | Type | Department | Care Team | Description | +--------+ + + + + | 08/17/ | Hospital | [facility] | Therese Sarabia | Syncope, unspecified | | 2018 - | Encounter | [facility] ACUTE | [address] | syncope type; | | | | CARE FLOOR [address] | [place] [address] | V-tach ([facility]) | | 08/19/ | | [address] | [phone] | | | 2017 | | [place], [place] | | | | | | [address] | | | | | | [phone] | | | +--------+ + + + [...] Summaries by Poli Christine MD at 08/19/18 5398 Author: Poli Christine MD Service: (none) Author Type: Physician Filed: 08/19/18 1150 Date of Service: 08/19/18 9537 Status: Signed Sodium Chlorite Operator: Poli Christine MD (Physician) [facility] Service: Hospitalist Discharge Summary Date of [...] No discharge procedures on file. Follow up: [facility] Emergency Department [address] [address] Go to If symptoms worsen Carla Murphy PA-C [address] [place] [address] Schedule an [...] 0 Commonly known as: GLUCOPHAGE Vitamin D3 18106 units Caps Refills: 0 You might also [...] 1450 Date of Service: 08/19/181445 Status: Signed Sodium Chlorite Operator: Milagros Kirkland RN (Registered Nurse) Discharge paperwork [...] 08/19/18614 Date of Service: 08/19/18613 Status: Signed Sodium Chlorite Operator: Naveen Caldwell RN (Registered Nurse) Pt having [...] 08/18/182054 Date of Service: 08/18/182045 Status: Signed Sodium Chlorite Operator: Poli Christine MD (Physician) [facility] Service: Hospitalist Progress Note Hospital Day: [...] failure with depressed EF, sta tus post ICD/BALLISTICS EXPERT insertion. Had been on digoxin outpatient. Digoxin [...] Date of Service: 08/18/18 1554 Status: Addendum Sodium Chlorite Operator: Milagros Kirkland RN (Registered Nurse) Related Notes: [...] Date of Service: 08/18/18 1501 Status: Signed Sodium Chlorite Operator: Milagros Kirkland RN (Registered Nurse) Assumed care. Report from KEEGAN Colvin. onver chetna Transaction, Provider Unknown - 08/18/2018 2:28 PM PST Nurse Progress Note by Marii Garza RN at 08/18/18 1428 Author: Marii Garza RN Service: (none) Author Type: Registered Nurse Filed: 08/18/18 1428 Date of Service: 08/18/181427 Status: Signed Sodium Chlorite Operator: Marii Garza RN (Registered Nurse) Patients pain [...] Date of Service: 08/18/18 1306 Status: Signed Sodium Chlorite Operator: Malena Ferro RPH (Pharmacist) Renal Dosing Monitoring: [...] Management by Yoon Michele RN at 08/18/18 1058 Author: Yoon Michele RN Service: (none) Author Type: Registered Nurse Filed: 08/18/18 1113 Date of Service: 08/18/18 1059 Status: Signed Sodium Chlorite Operator: Yoon Michele RN (Registered Nurse) 08/18/18 1000 [...] discussed discharge planning. Pt resides alone in [place] but is indep wi th all his [...] 08/18/18705 Date of Service: 08/18/18701 Status: Signed Sodium Chlorite Operator: Alize Rosas RN (Registered Nurse) Patient arrived [...] 08/18/18608 Date of Service: 08/18/18608 Status: Signed Sodium Chlorite Operator: Therese Sarabia DO (Physician) Dr. Roldan consulted [...] Abnormal nuclear | | | | | [address] | stress test; Cardiac | | | | | | resynchronization | | | | | | therapy | | | | | | defibrillator | | | | | | (BALLISTICS EXPERT-D) in place; | | | | [...] [place] | | | | | | [address] | | | | | | | | +--------+ + + + + | 09/29/ | Office | Cardiology | Jennifer Poppy | | | 2019 | Visit | | [address] | | | | | | [address] | | | | | | [place] [address] | | | | | | [phone] | | | | | | | | +--------+ + + + + | 10/21/ | Office | Cardiology | Nav Foley, | | | 2019 | Visit | | [address] | | | | | | [place] [address] | | | | | | [phone] | | | | | | | [...] | | | Fingerstick | performed at [facility];[address] | | LAB | | | | [address];[place] | | | | | | [address] | | | | + + + [...] | | | Fingerstick | performed at [facility];[address] | | LAB | | | | [address];[place], [place] | | | | | | [address] | | | | + + + [...] | | | Fingerstick | performed at [facility] | | LAB | | | | [address];[place], [place] | | | | | | [address] | | | | + + + [...] | | | Fingerstick | performed at [facility];[address] | | LAB | | | | [address];[place] | | | | | | [address] | | | | + + + [...] PDT FRANCI HOLT CAROTID DOPPLER, | | [id number]/30/2018 10:53 AM HISTORY:73 years. Male. Syncope. Ventricular [...] | | | Fingerstick | performed at [facility];[address] | | LAB | | | | [address];[place] | | | | | | [address] | | | | + + + [...] | | | | | | ACUTE HI Testing | | | | | | performed at [facility];[address] | | | | | | [address];[place] | | | | | | [address] | | | | + + + [...] | | Basophils | performed at [facility], [address] | K/uL | LAB | | | | [address] [place], | | | | | | [place] [address] | | | | + + + [...] | | | | | [place] [address] | | | | + + + [...] | | | | performed at [facility], [address] | | LAB | | | | [place] [address], | | | | | | [place] [address] | | | | + + + [...] | | | | performed at [facility], [address] | | LAB | | | | [address], | | | | | | [place] [address] | | | | + + + [...] + + | Hemoglobin | 5.5Comment: The Dutch | 4.0 - 6.0 % | EXTERNAL [...] | | | | performed at [facility], [address] | | | | | | [facility], | | | | | | [place] [address] | | | | + + + [...] EXTERNAL | | | | performed at [facility];[address] | | LAB | | | | [address];[place] | | | | | | [address] | | | | + + + [...] | | | level | performed at [facility];888 | ng/mL | LAB | | | | [address];[place], [place] | | | | | | [address] | | | | + + + [...] | | Cholesterol | performed at [facility], [address] | | LAB | | | , | [place] [address], | | | | | Calculated, | [place] [address] | | | | | External | [...] | | | | performed at [facility], [address] | | | | | | [address], | | | | | | [place] [address] | | | | + + + [...] + + | Historically [facility] environment | EXTERNAL LAB | [...] | | | Fingerstick | performed at [facility];[address] | | LAB | | | | [address];[place], [place] | | | | | | [address] | | | | + + + [...] | | | | | | ACUTE HI Testing | | | | | | performed at [facility] | | | | | | [facility];[place], [place] | | | | | | [address] | | | | + + + [...] LAB | | | | performed at [facility];[address] | | | | | | [address];[place], [place] | | | | | | [address] | | | | + + + [...] | | | | | ONLY, -COMPUTER ([id number]), | | | | | | publication editor Alyson Booth | | | | | | (79) on 08/19/2018 | | | | | | 2:27:53 AM | | | | + + + + + + + + | Specimen | + + | | + + + + + | Narrative | Performed At | + + + | [facility] | EXTERNAL LAB | + + [...]
--- OUTSIDE RECORDS SUMMARY | ~2019-09-02 | XMS | Encounter Summary ---
Demographics + + + | Address | [address] | | | [place] [address] | + + + | Home Phone [...] Providers + +------+ + | Care Marketing Intelligence Manager Name | Role | Phone | + +------+ + PCP | Unavailable | + +------+ + Encounter Details +--------+ + + + + | Date | Type | Department | Care Team | Description | +--------+ + + + + | 09/17/ | Hospital | [facility] | Conversion | | | 2015 | Encounter | [facility] | Transaction, | | | | | [address] | Provider Unknown | | | | | [place] | [phone] | | | | | [address] | | | | | | [phone] | | | +--------+ + + + [...] Abnormal nuclear | | | | | [address] | stress test; Cardiac | | | | | | resynchronization | | | | | | therapy | | | | | | defibrillator | | | | | | (WARP KNITTER HELPER-D) in place; | | | | [...] | Radiology | Kimmie Wills | CV [facility] | | 2019 | | | MD [address] | | | | | | [place] | | | | | | [address] | | | | | | | | +--------+ + + + + | 09/29/ | Office | Cardiology | Poppy Rodriguez | | | 2019 | Visit | | [address] | | | | | | [address] | | | | | | [place] [address] | | | | | | [phone] | | | | | | | | +--------+ + + + + | 10/21/ | Office | Cardiology | Nav Foley, | | | 2019 | Visit | | MD [address] | | | | | | [place] [address] | | | | | | [phone] | | | | | | | | +--------+ + + + + | 11/04/ | Procedure | Cardiology | | | | 2019 | visit | | | | +--------+ + + + + documented as of this encounter Visit Diagnoses Not on filedocumented in this encounter"
--- OUTSIDE RECORDS SUMMARY | ~2019-09-02 | XMS | Encounter Summary ---
Demographics + + + | Address | [address] | | | [place] [address] | + + + | Home Phone [...] Team Providers + +------+ + | Care Metal Forger'S Assistant Name | Role | Phone | [...] Provider Unknown | | | | | [place], [place] | [phone] | | | | | [address] | (Fax) | | | | | [phone] | | | +--------+ + + + [...] Abnormal nuclear | | | | | [address] | stress test; Cardiac | | | | | | resynchronization | | | | | | therapy | | | | | | defibrillator | | | | | | (SHUTTLE CAR OPERATOR-D) in place; | | | | [...] | Radiology | Kimmie Wills | [facility] | 2019 | | | MD [address] | | | | | | [place] | | | | | | [address] | | | | | | | | +--------+ + + + + | 09/29/ | Office | Cardiology | Poppy Rodriguez | | 2019 | Visit | | [address] | | | | | | [address] | | | | | | [place] [address] | | | | | | [phone] | | | | | | | | +--------+ + + + + | 10/21/ | Office | Cardiology | Nav Foley, | | | 2019 | Visit | | [address] | | | | | | [place] [address] | | | | | | [phone] | | | | | | | [...]
--- OUTSIDE RECORDS SUMMARY | ~2019-09-02 | XMS | Encounter Summary ---
Demographics + + + | Address | [address] | | | [place] [address] | + + + | Home Phone [...] Team Providers + +------+ + | Care Phototypesetter Operator Name | Role | Phone | + +------+ + | Carla Murphy | PCP | | | PA-C | | | + +------+ + Encounter Details +--------+ + + + + | Date | Type | Department | Care Team | Description | +--------+ + + + + | 03/15/ | Orders Only | [facility] | Conversion | | | 2016 | | CARDIOLOGY [place] | Transaction, | | | | | [address] | Provider Unknown | | | | | [place], [place] | [phone] | | | | | [address] | (Fax) | | | | | [phone] | | | +--------+ + + + [...] defibrillator | | | | | | (AUTO PARTS MANAGER-D) in place; | | | | [...] | Radiology | Kimmie Wills | [facility] | | 2019 | | | MD [address] | | | | | | [place] | | | | | | [address] | | | | | | | | +--------+ + + + + | 09/29/ | Office | Cardiology | Poppy Rodriguez | | 2019 | Visit | | [address] | | | | | | [address] | | | | | | [place] [address] | | | | | | [phone] | | | | | | | | +--------+ + + + + | 10/21/ | Office | Cardiology | Nav Foley, | | 2019 | Visit | | MD [address] | | | | | | [place] [address] | | | | | | [phone] | | | | | | | [...]
--- OUTSIDE RECORDS SUMMARY | ~2019-09-02 | XMS | Encounter Summary ---
Demographics + + + | Address | [address] | | | [place] [address] | + + + | Home Phone [...] Team Providers + +------+ + | Care Antichecking Iron Worker Name | Role | Phone | + +------+ + | Carla uMrphy | PCP | | | PA-C | | | + +------+ + Encounter Details +--------+ + + + + | Date | Type | Department | Care Team | Description | +--------+ + + + + | 03/25/ | Hospital | [facility] | Conversion | Unknown cause of | | 2016 | Encounter | CONVERSION DEP [address] | Transaction, | injury | | | | [address] | Provider Unknown | | | | | [place], [place] | [phone] | | | | | [address] | (Fax) | | | | | [phone] | | | +--------+ + + + [...] Abnormal nuclear | | | | | [address] | stress test; Cardiac | | | | | | resynchronization | | | | | | therapy | | | | | | defibrillator | | | | | | (LOG MANAGER-D) in place; | | | | [...] | Radiology | Kimmie Wills | [facility] | 2019 | | | MD [address] | | | | | | [place] | | | | | | [address] | | | | | | | | +--------+ + + + + | 09/29/ | Office | Cardiology | Poppy Rodriguez | | 2019 | Visit | | [address] | | | | | | [address] | | | | | | [place] [address] | | | | | | [phone] | | | | | | | | +--------+ + + + + | 10/21/ | Office | Cardiology | Nav Foley, | | | 2019 | Visit | | [address] | | | | | | [place] [address] | | | | | | [phone] | | | | | | | [...]
--- OUTSIDE RECORDS SUMMARY | ~2019-09-02 | XMS | Encounter Summary ---
Demographics + + + | Address | [address] | | | [place] [address] | + + + | Home Phone [...] Team Providers + +------+ + | Care Residential Green Building Designer Name | Role | Phone | [...] + + | 07/30/ | Procedure | [facility] | | Syncope and collapse | | 2019 | visit | [facility] | | (Primary Dx); | | | | [address] | | Cardiac | | | | [place], [place] | | resynchronization | | | | [address] | | therapy | | | | [phone] | | defibrillator | | | | | | (TUNNEL KILN REPAIRER-D) in place; | | | | [...] Abnormal nuclear | | | | | [address] | stress test; Cardiac | | | | | | resynchronization | | | | | | therapy | | | | | | defibrillator | | | | | | (TUNNEL KILN REPAIRER-D) in place; | | | | [...] [place] | | | | | | [address] | | | | | | | | +--------+ + + + + | 09/29/ | Office | Cardiology | Poppy Rodriguez | | | 2019 | Visit | | [address] | | | | | | [address] | | | | | | [place] [address] | | | | | | [phone] | | | | | | | | +--------+ + + + + | 10/21/ | Office | Cardiology | Nav Foley, | | | 2019 | Visit | | [address] | | | | | | [place] [address] | | | | | | [phone] | | | | | | | [...] defibrillator | | | | | | (TUNNEL KILN REPAIRER-D) in place | | | | | [...] encounter for additional details. | | | dispensing optician apprentice: Orin Shoemaker, dispensing optician apprentice [facility] | | |See device data attached to scheduled encounter for additional | | |details. | | | | | |dispensing optician apprentice: Orin Shoemaker, dispensing optician apprentice [facility] | | | | | | [...] + + | Cardiac resynchronization therapy defibrillator (TUNNEL KILN REPAIRER-D) in place | + + | Non-sustained ventricular tachycardia (HCC) Paroxysmal ventricular tachycardia | + + | Non-ischemic cardiomyopathy (HCC) Other primary cardiomyopathies | + + documented in this encounter"
--- OUTSIDE RECORDS SUMMARY | ~2019-09-02 | XMS | Clinical Summary ---
Demographics + + + | Address | [address] | | | [place] [address] | + + + | Home Phone [...] Team Providers + +------+ + | Care Cut Off Operator Scorer Name | Role | Phone | + [...] automatically from request for surgery | | [id number] | + + + + + | [...] Sarais with consult form stroke team at [facility]. 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 Chiang in January | | 2009.Generator change by Dr. Delarosa in 2014 viva xt TIME LOCK EXPERT D MDT | | number [id number].Patient has a 5076 atrial lead Medtronic. 6947 [...] time of his | | hospitalization at [facility]. | + + + + + | [...] | | testing. Request echo results from [facility]. Will discuss | | next steps [...] defibrillator | | | | | | (TIME LOCK EXPERT-D) in place; | | | | [...] Cardiology | Mary Tipton ANP | Other ([facility] for | | 2018 | | | [...] defibrillator | | | | | | (TIME LOCK EXPERT-D) in place; | | | | [...] defibrillator | | | | | | (TIME LOCK EXPERT-D) in place; | | | | [...] defibrillator | | | | | | (TIME LOCK EXPERT-D) in place; | | | | [...] defibrillator | | | | | | (TIME LOCK EXPERT-D) in place; | | | | [...] | | | | | DR [place]TEGA [place] | Abnormal nuclear | | | | | [address] | stress test; Cardiac | | | | | | resynchronization | | | | | | therapy | | | | | | defibrillator | | | | | | (TIME LOCK EXPERT-D) in place; | | | | [...] | Radiology | Kimmie Wills | [facility] | | 2019 | | | MD Saravanan [address] | | | | | | [place] | | | | | | [address] | | | | | | | | +--------+ + + + + | 09/29/ | Office | Cardiology | Poppy Rodriguez | | | 2019 | Visit | | [address] | | | | | | [address] | | | | | | [place] [address] | | | | | | [phone] | | | | | | | | +--------+ + + + + | 10/21/ | Office | Cardiology | Nav Foley, | | | 2019 | Visit | | [address] | | | | | | [place] [address] | | | | | | [phone] | | | | | | | [...] | + +--------+------+ +--------+--------+--------+ | Implant Id: [id number] - | Cardia | | MEDTRONIC - | | | | | Clinic Lead-D-05/17/2015Implanted: | c | | MEDT | | | /[id number] | | 05/17/2015 by Uvaldo Delarosa, | Rhythm | | | | | [id number] | | PhD (Quantity not on | | | | | | / | | file) | Manage | | | | | | | | ment | | | | | | + +--------+------+ +--------+--------+--------+ | Implant Id: [id number] - Endurant | Endogr | | MEDTRONIC - | | | | | EndograftImplanted: | aft | | MEDT | | | /[id number] | | 09/23/2014 by Vincent Fields MD | | | | | | [id number] / | | (Quantity not on file) | | | | | | | + +--------+------+ +--------+--------+--------+ | Implant Id: [id number] - Endurant | Endogr | | MEDTRONIC - | | | | | EndograftImplanted: | aft | | MEDT | | | /[id number] | | 09/23/2014 by Vincent Fields MD | | | | | | [id number] / | | (Quantity not on file) | | | | | | | + +--------+------+ +--------+--------+--------+ | Implant Id: [id number] - Endurant | Endogr | | | [...] defibrillator | | | | | | (TIME LOCK EXPERT-D) in place | | | | | [...] defibrillator | | | | | | (TIME LOCK EXPERT-D) in place | | | | | [...] defibrillator | | | | | | (TIME LOCK EXPERT-D) in place | | | | | [...] defibrillator | | | | | | (TIME LOCK EXPERT-D) in place | | | | | [...] | | | | | by [employer] [place] Read Only, | | | | | | ICA Pam ([id number]), | | | | | | editor sound Darwin Bob | | | | | | (972) on 09/01/2019 | | | | | [...] encounter for additional details. | | | proprietary trader: Orin Shoemaker, proprietary trader [facility] | | |See device data attached to scheduled encounter for additional | | |details. | | | | | |proprietary trader: Orin Shoemaker, proprietary trader [facility] | | | | | | [...] +--------+ +---------+--------+ | MEDICARE | MEDICA | [id number] | 10/19/19 | [phone] | | Medica | | | RE | | 13-Pre | 5 | | re | | | PART A | | sent | | | | | | AND B | | | | | | + +--------+ +--------+ +---------+--------+ | MEDICARE | MEDICA | [id number] | 05/31/ | [phone] | | Medica | | | RE | | 2019-P | 5 | | re | | | PART A | | resent | | | | | | AND B | | | | | | + +--------+ +--------+ +---------+--------+ | [employer] | TRANSA | [id number] | 10/19/19 | | | Indemn | | INSURANCE | MERICA | | 15-Pre | | | ity | | | LIFE | | sent | | | | | | MS | | | | | | + +--------+ +--------+ +---------+--------+ | [employer] | TRANSA | [id number] | 10/19/19 | | | Indemn | [...] chas | | | 6 (Home) | [phone] | + +--------+ +--------+ + + | Jared Abraham | Person | Self | [birth year] | [address] | | [place] | brinda/Serjio | | 1945 | [phone] | [place] | | | chas | | | 6 (Home) | [address] | + +--------+ +--------+ + + Advance Directives + + + + + | Type | Date Recorded | Patient | Explanation | | | | Financial Services Auditor | | + + + + + | Power of | | | | | Commissioner Of Relocation Services | | | | + + + + + | Advance | 10/19/2015 1:30 | | | | Directive | PM | | | + + + + +
[~2019-09-02 14:24] MED LIST changes: +AMIODARONE HCL200 MG PO; +BISOPROLOL FUMAR5 MG PO; +MAGNESIUM250 M1 PO; +METOPROLOL TART25 MG PO
--- OUTSIDE RECORDS SUMMARY | 2019-09-02 14:26 | XMS ---
PreManage Notification: FRANCI VELÁZQUEZ Security Community Support Specialist Events No recent Security Events currently on file CRITERIA MET - Group Notification - [facility] - Has Care Guidelines CARE PROVIDERS SEN COLINDRES Physician Rn Testing 04/16/2018-Current PHONE: [phone] [place] has no Care Guidelines for this patient. 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 Josie VISIT COUNT (12 MO.) 4 [facility]. TOTAL 4 NOTE: Visits indicate total known visits. ED/UCC VISIT TRACKING (12 MO.) 09/02/2019 14:24 [facility] TYPE: Emergency COMPLAINT: - SOB 07/23/2019 15:43 [facility] TYPE: Emergency COMPLAINT: - BLOOD PRESSURE PROBLEM, DIZZINESS 05/26/2019 14:13 [facility] TYPE: Emergency COMPLAINT: - DIABETIC PROBLEM DIAGNOSES: - Allergy status to penicillin - Essential (primary) hypertension - USP (current) use of aspirin - Hypotension, unspecified - Presence of cardiac pacemaker - Weakness - Allergy status to narcotic agent status - Allergy status to analgesic agent status - Other barrel washer machine (current) drug therapy 01/20/2019 04:00 [facility] TYPE: Emergency COMPLAINT: - BLEEDING OUT OF RIGHT DIAGNOSES: - tutorial laboratory supervisor (current) use of oral hypoglycemic drugs - Unspecified perforation of tympanic membrane, right ear - Presence of cardiac pacemaker - Other assisted (current) drug therapy - USP (current) use of aspirin - Essential (primary) hypertension - Allergy status to oth drug/meds/biol subst status - Allergy status to analgesic agent status - Allergy status to narcotic agent status - Allergy status to penicillin - Acquired absence of other specified parts of digestive tract - Otitis media, unspecified, right ear INPATIENT VISIT TRACKING (12 MO.) 07/25/2019 12:20 [facility] TYPE: Medical Surgical COMPLAINT: - SYNCOPE DIAGNOSES: - tutorial laboratory supervisor (current) use of antithrombotics/antiplatelets - tutorial laboratory supervisor (current) use of oral hypoglycemic drugs - Peripheral vascular angioplasty status w implants and grafts - Presence of automatic (implantable) cardiac defibrillator - Hypertensive heart disease with heart failure - Allergy status to oth drug/meds/biol subst status - Obstructive sleep apnea (adult) (pediatric) - 1 Type 2 diabetes mellitus without complications - Presence of automatic (implantable) cardiac defibrillator - 1 Type 2 diabetes mellitus without complications - USP (current) use of aspirin - tutorial laboratory supervisor (current) use of aspirin - Other abnormalities of heart beat - Hypothyroidism, unspecified - Chronic systolic (congestive) heart failure - Obstructive sleep apnea (adult) (pediatric) - Allergy status to narcotic agent status - Other barrel washer machine (current) drug therapy - Hypothyroidism, unspecified - Peripheral vascular angioplasty status w implants and grafts - Athscl heart disease of [place] coronary artery w/o ang pctrs - tutorial laboratory supervisor (current) use of antithrombotics/antiplatelets - Allergy status to narcotic agent status - Other abnormalities of heart beat - USP (current) use of oral hypoglycemic drugs - Hypertensive heart disease with heart failure - Athscl heart disease of [place] coronary artery w/o ang pctrs - Chronic systolic (congestive) heart failure - Allergy status to oth drug/meds/biol subst status - Other assisted (current) drug therapy - Syncope and collapse [email or web address]
--- NOTE | 2019-09-03 19:27 | EKG ---
[facility] [address] [place] [address] Signed Ventricular-paced rhythm with premature supraventricular complexes Abnormal ECG When compared with ECG of 23-JUL-2019 15:55, premature ventricular complexes are no longer present premature supraventricular complexes are now present Vent. rate has decreased BY 7 BPM Confirmed by HAYDEN COTTON MD ([id number]) on 09/03/2019 7:27:42 PM Electronically Signed By: HAYDEN COTTON MD 09/03/19 1927 PATIENT NAME: FRANCI VELÁZQUEZ Electrocardiogram DATE OF : 49 PHYSICIAN: HAYDEN COTTON MD REPORT #: [id number] REPORT IS CONFIDENTIAL AND NOT TO BE RELEASED WITHOUT AUTHORIZATION
== END 2019-09-02 18:03 | disposition home or self-care (01) ==
LOC: ED 14:24
DX: M94.0 Chondrocostal junction syndrome [Tietze] (principal); I10 Essential (primary) hypertension; G47.30 Sleep apnea, unspecified; Z99.89 Dependence on other enabling machines and devices; Z88.5 Allergy status to narcotic agent; Z88.8 Allergy status to other drugs, medicaments and biological substances; Z88.0 Allergy status to penicillin; Z79.899 Other long term (current) drug therapy; Z79.84 Long term (current) use of oral hypoglycemic drugs; Z79.82 Long term (current) use of aspirin
CPT/HCPCS: 71045; 80053; 83735; 83880; 84484; 85025; 93005; 93010; 96374; 99285-25; J1885

== ENCOUNTER 2019-11-16 08:01 | Emergency (ER) | payer MEDICARE, OTHER ==
[~2019-11-16] VITALS: Ht 177.8 cm; Wt 107.1 kg
--- OUTSIDE RECORDS SUMMARY | 2019-11-16 08:04 | XMS ---
PreManage Notification: FRANCI VELÁZQUEZ Security Face Boss Events No recent Security Events currently on file CRITERIA MET - Group Notification - [facility] - Has Care Guidelines CARE PROVIDERS SEN COLINDRES Physician Oracle Architect 04/16/2018-Current PHONE: [phone] [place] has no Care Guidelines for this patient. Care History Medical/Surgical 05/27/2019 [facility] - PATIENT HAS A C D STRIPPER DR BAZAN AT [facility]. Josie VISIT COUNT ([address] 5 [facility]. TOTAL 5 NOTE: Visits indicate total known visits. ED/UCC VISIT TRACKING (12 MO.) 11/16/2019 08:02 [facility] [place] TYPE: Emergency COMPLAINT: - FLU SYMPTOMS 09/02/2019 14:24 [facility] [place] TYPE: Emergency COMPLAINT: - SOB DIAGNOSES: - Sleep apnea, unspecified - Dependence on other enabling machines and devices - regional branch manager (current) use of oral hypoglycemic drugs - Other alf (current) drug therapy - Essential (primary) hypertension - Precordial pain - Allergy status to narcotic agent status - regional branch manager (current) use of aspirin - Allergy status to other drugs, medicaments and biological sub - Chondrocostal junction syndrome [Tietze] - Allergy status to penicillin 07/23/2019 15:43 [facility] [place] TYPE: Emergency COMPLAINT: - BLOOD PRESSURE PROBLEM, DIZZINESS 05/26/2019 14:13 [facility] [place] TYPE: Emergency COMPLAINT: - DIABETIC PROBLEM DIAGNOSES: - Allergy status to penicillin - Essential (primary) hypertension - MCFP (current) use of aspirin - Hypotension, unspecified - Presence of cardiac pacemaker - Weakness - Allergy status to narcotic agent status - Allergy status to analgesic agent status - Other alf (current) drug therapy 01/20/2019 04:00 [facility] [place] TYPE: Emergency COMPLAINT: - BLEEDING OUT OF RIGHT DIAGNOSES: - MCFP (current) use of oral hypoglycemic drugs - Unspecified perforation of tympanic membrane, right ear - Presence of cardiac pacemaker - Other alf (current) drug therapy - MCFP (current) use of aspirin - Essential (primary) hypertension - Allergy status to other drugs, medicaments and biological sub - Allergy status to analgesic agent status - Allergy status to narcotic agent status - Allergy status to penicillin - Acquired absence of other specified parts of digestive tract - Otitis media, unspecified, right ear INPATIENT VISIT TRACKING (12 MO.) 07/25/2019 12:20 [facility] [place] TYPE: Medical Surgical COMPLAINT: - SYNCOPE DIAGNOSES: - regional branch manager (current) use of antithrombotics/antiplatelets - MCFP (current) use of oral hypoglycemic drugs - Peripheral vascular angioplasty status with implants and valarie - Presence of automatic (implantable) cardiac defibrillator - Hypertensive heart disease with heart failure - Allergy status to other drugs, medicaments and biological sub - Obstructive sleep apnea (adult) (pediatric) - Type 2 diabetes mellitus without complications - Presence of automatic (implantable) cardiac defibrillator - Type 2 diabetes mellitus without complications - MCFP (current) use of aspirin - MCFP (current) use of aspirin - Other abnormalities of heart beat - Hypothyroidism, unspecified - Chronic systolic (congestive) heart failure - Obstructive sleep apnea (adult) (pediatric) - Allergy status to narcotic agent status - Other alf (current) drug therapy - Hypothyroidism, unspecified - Peripheral vascular angioplasty status with implants and valarie - Atherosclerotic heart disease of [place] coronary artery witho - MCFP (current) use of antithrombotics/antiplatelets - Allergy status to narcotic agent status - Other abnormalities of heart beat - MCFP (current) use of oral hypoglycemic drugs - Hypertensive heart disease with heart failure - Atherosclerotic heart disease of [place] coronary artery witho - Chronic systolic (congestive) heart failure - Allergy status to other drugs, medicaments and biological sub - Other alf (current) drug therapy - Syncope and collapse [email or web address]
== END 2019-11-16 08:47 | disposition home or self-care (01) ==
LOC: ED 08:01
DX: B34.9 Viral infection, unspecified (principal); I10 Essential (primary) hypertension; Z95.810 Presence of automatic (implantable) cardiac defibrillator; Z90.49 Acquired absence of other specified parts of digestive tract; Z88.5 Allergy status to narcotic agent; Z88.0 Allergy status to penicillin; Z88.8 Allergy status to other drugs, medicaments and biological substances; Z79.899 Other long term (current) drug therapy; Z79.82 Long term (current) use of aspirin
CPT/HCPCS: 99282

== ENCOUNTER 2020-02-19 13:21 | Emergency (ER) | payer MEDICARE, OTHER ==
[~2020-02-19] VITALS: Ht 177.8 cm; Wt 97.5 kg
--- OUTSIDE RECORDS SUMMARY | ~2020-02-19 | XMS | Encounter Summary ---
Demographics + + + | Address | [address] | | | [place] [address] | + + + | Home Phone | | + + + | Preferred Language | Unknown | + + + | Marital Status | | + + + | Church Affiliation | Unknown | + + + | Race | Unknown | + + + | Ethnic Group | Unknown | + + + Author + + + | Author | [facility] | | | and [place] | + + + | Organization | [facility] | | | and [place] | + + + | Address | Unknown | + + + | Phone | Unavailable | + + + Support + + +---------+ + | Name | Relationship | Address | Phone | + + +---------+ + | Champ Abraham | ECON | Unknown | | + + +---------+ + | Mili Villavicencio | ECON | Unknown | | + + +---------+ + Care Team Providers + +------+ + | Care Rubber Tire Curer Name | Role | Phone | + +------+ + | Carla Murphy | PCP | | | PA-C | | | + +------+ + Reason for Visit + + + | Reason | Comments | + + + | Follow-up | 6 month, ER in [place] for Low BP 88/55, weak nausea, sweating | + + + | Chest Pain | last night under left breast | + + + Encounter Details +--------+---------+ + + + | Date | Type | Department | Care Team | Description | +--------+---------+ + + + | 06/04/ | Office | [facility] | Nav Foley, | Palpitations | | 2019 | Visit | [facility]ARDIOLOGY [place] | MD [address] | (Primary Dx) | | | | [address] | [place] [address] | | | | | [place], [place] | [phone] | | | | | [address] | | | | | | [phone] | | | +--------+---------+ + + + Social History [...] on file | | + + + documented as of this encounter Last Filed Vital Signs + + + + + | Vital Sign | Reading | Time Taken | Comments | + + + + + | Blood Pressure | 102/50 | 06/04/2019 2:33 PM | right | | | | PDT | | + + + + + | Pulse | 31 | 06/04/2019 2:33 PM | | | | | PDT | | + + + + + | Temperature | - | - | | + + + + + | Respiratory Rate | - | - | | + + + + + | Oxygen Saturation | 94% | 06/04/2019 2:33 PM | | | | | PDT | | + + + + + | Inhaled Oxygen | - | - | | | Concentration | | | | + + + + + | Weight | 109.5 kg (241 lb 6.4 | 06/04/2019 2:33 PM | | | | oz) | PDT | | + + + + + | Height | 177.8 cm (5' 10") | 06/04/2019 2:33 PM | | | | | PDT | | + + + + + | Body Mass Index | 34.64 | 06/04/2019 2:33 PM | | | | | PDT | | + + + + + documented in this encounter Progress Notes Nav Foley MD - 06/04/2019 2:30 PM PDTFormatting of this note might be different fro m the original. Progress Notes by Nav Foley MD at 12/04/18 1500 Author: Nav Foley MD Service: (none) Author Type: Physician Filed: 12/06/18 1040 Encounter Date: 12/04/2018 Status: Signed Skidder Operator: Nav Foley MD (Physician) Related Notes: Original Note by Nav Foley MD (Physician) filed at 12/04/18 1604 FOLLOW UP : 1945 DATE OF SERVICE: 12/04/2018 PROVIDER: NAV FOLEY MD PRIMARY CARE: Carla Murphy CHIEF COMPLAINT: Chief Complaint Patient presents with Follow-up 2 month HPI: He is here for the first time in 6 months. He has had problems with low blood pressure as w ell as intermittent symptoms of weakness, fatigue, sweating, and nausea for the last couple of months. His Metoprolol has been discontinued. Two days ago, he had an ICD interrogation w hich was unremarkable. No real shortness of breath. He is not using the CPAP device for his sleep apnea because of sinus congestion. No chest pain. His main symptom is palpitations and tachycardia. PMH, SH, FH, and meds were reviewed in the chart. CURRENT MEDICATIONS: Outpatient Encounter Prescriptions as of 12/04/2018 Medication Sig Dispense Refill aspirin 81 MG EC tablet Take 81 mg by mouth daily. atorvastatin (LIPITOR) 20 MG tablet Take 20 mg by mouth nightly. Cholecalciferol (VITAMIN D3) 92792 UNITS CAPS Take 5,000 Int'l Units by mouth daily. clopidogrel (PLAVIX) 75 MG tablet Take 75 mg by mouth daily. furosemide (LASIX) 20 MG tablet Take 2 tablets by mouth daily. 60 tablet 11 levothyroxine (SYNTHROID) 88 MCG tablet Take 88 mcg by mouth every morning before break fast. Pt taking 88 mcg daily loratadine (CLARITIN) 10 MG tablet Take 10 mg by mouth daily. Magnesium 250 MG TABS tablet Take 250 mg by mouth daily. metFORMIN (GLUCOPHAGE-XR) 500 MG 24 hr tablet Take 1 tablet by mouth daily. metoprolol (TOPROL-XL) 25 MG 24 hr tablet Take 1 tablet by mouth daily for 30 days. 30 tablet 0 No facility-administered encounter medications on file as of 12/04/2018. ALLERGIES: Codeine; Demerol [meperidine]; Norflex [orphenadrine]; Percodan [oxycodone-aspir in]; Amiodarone; Digoxin and related; Nitroglycerin; and Penicillins REVIEW OF SYSTEMS: Review of Systems Constitutional: Positive for fatigue. Negative for fever, chills and unexpected weight thornton ge. HENT: Negative for nosebleeds and trouble swallowing. Eyes: Negative for redness and visual disturbance. Respiratory: Negative for shortness of breath, cough, chest tightness and wheezing. Cardiovascular: Negative for chest pain, palpitations and leg swelling. Gastrointestinal: Negative for nausea, vomiting, diarrhea and blood in stool. Endocrine: Negative for cold intolerance and heat intolerance. Genitourinary: Negative for dysuria, frequency and hematuria. Musculoskeletal: Negative for joint swelling and gait problem. Skin: Negative for rash and wound. Neurological: Negative for dizziness, tremors, syncope, facial asymmetry, speech difficulty , light-headedness, numbness and headaches. Hematological: Does not bruise/bleed easily. Psychiatric/Behavioral: Positive for dysphoric mood. All other systems reviewed and negative. PHYSICAL EXAM: VITAL SIGNS: BP 94/60 (BP Location: Left upper arm, Patient Position: Sitting) | Pulse 85 | Ht 1.778 m (5' 10") | Wt 107 kg (236 lb) | SpO2 96% | BMI 33.86 kg/m GENERAL - Well developed, well-nourished, appears stated age, in no acute distress. HEENT - Normocephalic, atraumatic. No arcus senillis, no scleral icterus. NECK - Supple. No thyromegaly. CARDIOVASCULAR - No JVD, no carotid bruit, no abdominal bruit. Carotid upstroke normal bila terally. Regular rate and rhythm. No rub. No murmur. No gallop. Normal S1 and S2. CHEST - Nontender. LUNGS - no wheezing, no crackles, no rales, no rhonchi and normal respiratory rate and rhyt hm. ABDOMEN - Soft, obese EXTREMITIES - tr edema, clubbing or cyanosis. No deformities, no tenderness, and no discolo ration or ulceration. NEURO/PSYCH - Alert and oriented x3, mood and affect appropriate. No obvious focal motor or sensory deficits. Cranial nerves are grossly intact. MUSCULOSKELETAL - No muscle spasms, no muscle atrophy and no joint deformities. SKIN - No pallor, no jaundice, no cyanosis. Assessment DATA: Recent ICD interrogation reviewed. IMPRESSION 1. Nonischemic cardiomyopathy, ejection fraction 35% to 40%. Class II to III symptoms. 2. AICD in situ. 3. Normal coronary anatomy. 4. Intolerance to carvedilol. 5. Strong suspicion for sleep apnea. 6. Obesity. 7. Restrictive lung disease with elevated left hemidiaphragm. PLAN: A 30-day event monitor study. Restart Metoprolol 12.5 mg a day. I have encouraged treatment for his sleep apnea. He will also continue with ICD checks. Documented by Magdalena. Cardiac Medications: Continue as prescribed. Nav Foley MD FACC, FACP, FASNC documented in this en counter Plan of Treatment +--------+ + + + + | Date | Type | Specialty | Care Team | Description | +--------+ + + + + | 04/28/ Office | Cardiology | Nav Foley, | | | 2019 | Visit | | MD [address] | | | | | | [place] [address] | | | | | | [phone] | | | | | | | | +--------+ + + + + | 09/09/ | Procedure | Cardiology | | | | 2019 | visit | | | | +--------+ + + + + + +------+--------+ + + | Name | Type | Priori | Associated Diagnoses | Order Schedule | | | | ty | | | + +------+--------+ + + | Holter monitor - 30 | ECG | Routin | Palpitations | Expected: | | days | | e | | 06/11/2019, Expires: | | | | | | 06/04/2020 | + +------+--------+ + + documented as of this encounter Visit Diagnoses + + | Diagnosis | + + | Palpitations - Primary | + + documented in this encounter
--- OUTSIDE RECORDS SUMMARY | ~2020-02-19 | XMS | Encounter Summary ---
Demographics + + + | Address | [address] | | | [place] [address] | + + + | Home Phone | | + + + | Preferred Language | Unknown | + + + | Marital Status | | + + + | Protestant Affiliation | Unknown | + + + | Race | Unknown | + + + | Ethnic Group | Unknown | + + + Author + + + | Author | [facility] | | | and [place] | + + + | Organization | [facility] | | | [...] Team Providers + +------+ + | Care Skip Miner Blasting Name | Role | Phone | + +------+ + | Carla Murphy | PCP | | | PA-C | | | + +------+ + Encounter Details +--------+ + + + + | Date | Type | Department | Care Team | Description | +--------+ + + + + | 01/31/ | Documentati | [facility] | [place], | | | 2015 | on | [facility] | Sailaja Chiang MD | | | | | INFORMATION | | | | | | MANAGEMENT [address] | | | | | | [address] [place], [place] | | | | | | [address] | | | | | | [phone] | | | +--------+ + + + [...] documented as of this encounter Progress Notes Pamela Jo - 02/01/2016 8:49 AM PDTFormatting of this note might be different f rom the original. Referral Referral # [id number] Referral Information Referral # Creation Date Referral Status Status Update [id number] 01/21/2016 Authorized 01/24/2016:Status History. Status Reason Referral Type Referral Reasons Referral Class No Approval Necessary - Patient Tracking Evaluate & Treat none Outgoing To Specialty To Provider To Location/POS To Department none none [facility] none Vendor Referred By By Location/POS By Department none Sailaja Nicholson none [facility] Priority Start Date Expiration Date Referral Entered By Routine 01/21/2016 07/19/2016 LYNDSAY LYNN Visits Requested Visits Authorized Visits Completed Visits Scheduled 1 1 Procedure Information Procedure Modifiers Provider Requested Approved 93050 (CPT) - [place] OFFICE OUTPATIENT VISIT 25 MINUTES 1 1 Authorizing Provider Authorizing Provider Diagnosis Information Diagnosis J44.9 (ICD-10-CM) - 496 (ICD-9-CM) - COPD (chronic obstructive pulmonary disease) (HCC) Active Insurance as of 02/01/2016 MEDICARE - MEDICARE PART A AND B Payor Plan Insurance Group Employer/Plan Group MEDICARE MEDICARE PART A AND B Payor Plan Address Payor Plan Phone Number Effective From Effective To [address] 10/18/2012 BENJA BELCHER [address] Subscriber Name Subscriber Date Member ID FRANCI VELÁZQUEZ 1945 [id number] Guarantor Name (ID) Guarantor Date Guarantor Address Guarantor Type FRANCI VELÁZQUEZ ([id number]) 1945 [address] Personal/[place] [address] [employer] LIFE [employer] - [employer] [place] Payor Plan Insurance Group Employer/Plan Group [place] [employer] [place] PLAN G Payor Plan Address Payor Plan Phone Number Effective From Effective To [address] 10/18/2014 GIA Parker [address] Subscriber Name Subscriber Date Member ID FRANCI VELÁZQUEZ 1945 [id number] Guarantor Name (ID) Guarantor Date Guarantor Address Guarantor Type FRANCI VELÁZQUEZ ([id number]) 1945 [address] Personal/[place] [address] Referral Notes Type Date User General 01/31/2016 1645 LYNDSAY LYNN Note Please send the following information for referral purposes. Status (Emergent/Urgent/Routine): routine External Referral Form (WWC/Other):no Referred to Provider: [facility] Include: Patient Demographics Chart Notes (Provider Name/Date): [facility] Referral Letter: no Procedure(s): if any Pathology: if any Imaging: yes Labs: most recent Other: any other pertinent pulmonary records Type Date User General 01/24/2016 1035 ASHOK DUARTE Lore Summary 2015-01/23??> APPROVED> [place]> CONTINUITY OF CARE> [facility] Note APPROVED New - Scheduling Minimum Data Set | Provider Notes: | Payer: [facility] SUPP PLAN G | Subscriber Name: Self | & [id number] | Auth ID: Not required by payer | CPT Provided? Yes | Dx Code Provided? | Additional Contact Info: - NO ABN REQUIRED PER MED ASSETS CODE COMPLIANCE [facility] SUPP - NO PA REQUIRED. FOLLOWS GUIDELINES PER CALL TO BR[facility]. [phone] Type Date User General 01/21/2016 1645 LYNDSAY LYNN Note Referral to [facility] for continued care documented in this encounter Plan of Treatment +--------+ + + + + | Date | Type | Specialty | Care Team | Description | +--------+ + + + + | 04/28/ | Office | Cardiology | Nav Foley, | | | 2019 | Visit | | MD [address] | | | | | | [place] [address] | | | | | | [phone] | | | | | | | | +--------+ + + + + | 04/28/ | Procedure | Cardiology | | | | 2020 | visit | | | | +--------+ + + + + documented as of this encounter Visit Diagnoses Not on filedocumented in this encounter"
--- OUTSIDE RECORDS SUMMARY | ~2020-02-19 | XMS | Encounter Summary ---
Demographics + + + | Address | [address] | | | [place] [address] | + + + | Home Phone | | + + + | Preferred Language | Unknown | + + + | Marital Status | | + + + | Orthodox Affiliation | Unknown | + + + | Race | Unknown | + + + | Ethnic Group | Unknown | + + + Author + + + | Author | [facility] | | | and [place] | + + + | Organization | [facility] | | [...] Team Providers + +------+ + | Care Insurance Claims Examiner Name | Role | Phone | + +------+ + | Carla Murphy | PCP | | | PA-C | | | + +------+ + Reason for Visit + +--------+ + | Reason | Onset | Comments | | | Date | | + +--------+ + | Appointment | 09/30/ | | | | 2020 | | + +--------+ + Encounter Details +--------+ + + + + | Date | Type | Department | Care Team | Description | +--------+ + + + + | 09/30/ | Telephone | [facility] | Mary Tipton ANP | Appointment | | 2020 | | CARDIOLOGY [place] | [address] | | | | | [address] | [place], [place] | | | | | [place], [place] | [address] | | | | | [address] | | | | | | [phone] | | | +--------+ + + + [...] + + documented as of this encounter Miscellaneous Notes Telephone Encounter - Elif Aj - 09/30/2019 1:51 PM PSTReturning patients call. Left msg for pt to call back. Elif Aj documented in this enc ounter Plan of Treatment +--------+ + + + + | Date | Type | Specialty | Care Team | Description | +--------+ + + + + | 04/28/ | Office | Cardiology | Nav Foley, | | | 2019 | Visit | | MD [address] | | | | | | [place] [address] | | | | | | [phone] | | | | | | | | +--------+ + + + + | 04/28/ | Procedure | Cardiology | | | | 2020 | visit | | | | +--------+ + + + + documented as of this encounter Visit Diagnoses Not on filedocumented in this encounter"
--- OUTSIDE RECORDS SUMMARY | ~2020-02-19 | XMS | Encounter Summary ---
Demographics + + + | Address | [address] | | | [place] [address] | + + + | Home Phone | | + + + | Preferred Language | Unknown | + + + | Marital Status | | + + + | Scientologist Affiliation | Unknown | + + + | Race | Unknown | + + + | Ethnic Group | Unknown | + + + Author + + + | Author | [facility] | | | and [place] | + + + | Organization | [facility] | | | [...] Team Providers + +------+ + | Care Windows Infrastructure Engineer Name | Role | Phone | + +------+ + | Carla Murphy | PCP | | | PA-C | | | + +------+ + Reason for Visit + + + | Reason | Comments | + + + | Device Check | [facility] | | (Remote) | | + + + Encounter Details +--------+ + + + + | Date | Type | Department | Care Team | Description | +--------+ + + + + | 07/24/ | Procedure | [facility] | | Non-sustained | | 2019 | visit | CARDIOLOGY [place] | | ventricular | | | | [address] | | tachycardia (HCC) | | | | [place], [place] | | (Primary Dx); | | | | [address] | | Cardiac | | | | [phone] | | resynchronization | | | | | | therapy | | | | | | defibrillator | | | | | | (FRENCH TUTOR-D) in place; | | | | | | Syncope and | | | | | | collapse; | | | | | | Non-ischemic | | | | | | cardiomyopathy (HCC) | +--------+ + + + + Social [...] + + documented as of this encounter Procedure Notes Germain Shoemaker Technologist - 07/24/2019 8:55 AM PSTAssociated Order(s): DEVICE INTE RROGATION- REMOTEProcedure(s): DEVICE INTERROGATION- REMOTEPre-Procedure Diagnose(s): Cardia c resynchronization therapy defibrillator (FRENCH TUTOR-D) in place; Syncope and collapse; Non-ischem ic cardiomyopathy (HCC); Non-sustained ventricular tachycardia (HCC)[facility] Rate > 85 bpm ?79 V. Sensing Episodes ?5 VT-NS - most recent 07/20/19 1:1 retrograde lasting 1 sec V rate 197bpm. ?7 minutes in AT/AF Since Last Session Patient is scheduled for in office device check 07/30/19 Associated attestation - Mary Tipton ANP - 07/28/2019 4:10 PM GRICELDAWibrigid discuss AT/AF at i n office appointment 07/30/2019. Consider increasing Metoprolol if will tolerate. Device follow up Device data was personally reviewed by me. Device function is nominal. There is adequate remaining battery life. For additional details regarding device information, data and rhythm strips, please see osmin se/boiler/chiller technician entry in the notes section and device download information in scanned document s. ERNIE Deal 07/28/2019 documented in this encounter Plan of Treatment +--------+ + + + + | Date | Type | Specialty | Care Team | Description | +--------+ + + + + | 04/28/ | Office | Cardiology | Nav Foley, | | | 2019 | Visit | | MD [address] | | | | | | [place] [address] | | | | | | [phone] | | | | | | | [...] | + +--------+ + + + | DEVICE | Routin | 07/24/2019 | Cardiac | Results for this | | INTERROGATION- | e | 8:55 AM | resynchronization | procedure are in the | | REMOTE | | PST | therapy | results section. | | | | | defibrillator | | | | | | (FRENCH TUTOR-D) in place | | | | | | Syncope and collapse | | | | | | Non-ischemic | | | | | | cardiomyopathy (HCC) | | | | | | Non-sustained | | | | | | ventricular | | | | | | tachycardia (HCC) | | + +--------+ + + + documented in this encounter Results Device Interrogation - Remote (07/24/2019 8:55 AM PST) + + + | Narrative | Performed At | + + + | Germain Boyle | [facility] | | Navid, Technologist 07/24/2019 2:12 [facility] | | | Rate > 85 bpm ?79 V. Sensing Episodes ?5 VT-NS - most recent 07/20/19 | | | 1:1 retrograde lasting 1 sec V rate 197bpm.?7 minutes in AT/AF Since | | | Last SessionPatient is scheduled for in office device check 07/30/19 | | |rate 197bpm. | | |?7 minutes in AT/AF Since Last Session | | |Patient is scheduled for in office device check 07/30/19 | | | | | + + + + +---------+ + + | Performing | Address | City/State/Zipcode | Phone Number | | Organization | | | | + +---------+ + + | [facility] | | | | + +---------+ + + documented in this encounter Visit Diagnoses + + | Diagnosis | + + | Non-sustained ventricular tachycardia (HCC) - Primary Paroxysmal ventricular | | tachycardia | + + | Cardiac resynchronization therapy defibrillator (FRENCH TUTOR-D) in place | + + | Syncope and collapse | + + | Non-ischemic cardiomyopathy (HCC) Other primary cardiomyopathies | + + documented in this encounter"
--- OUTSIDE RECORDS SUMMARY | ~2020-02-19 | XMS | Encounter Summary ---
Demographics + + + | Address | [address] | | | [place] [address] | + + + | Home Phone | | + + + | Preferred Language | Unknown | + + + | Marital Status | | + + + | Confucianist Affiliation | Unknown | + + + | Race | Unknown | + + + | Ethnic Group | Unknown | + + + Author + + + | Author | [facility] | | | and [place] | + + + | Organization | [facility] | | | [...] Team Providers + +------+ + | Care Proposal Engineer Name | Role | Phone | + +------+ + | Carla Murphy | PCP | | | PA-C | | | + +------+ + Encounter Details +--------+ + + + + | Date | Type | Department | Care Team | Description | +--------+ + + + + | 03/26/ | Hospital | C GENERIC IP | Conversion | Unknown cause of | | 2016 | Encounter | CONVERSION [address] | Transaction, | injury | | | | [address] | Provider Unknown | | | | | [place], [place] | | | | | | [phone] | (Fax) | | | | | | | [...] Take one tablet | | 0 | 10/04/19 | | | (SYNTHROID) 88 mcg | [...] 5 | 10/22/19 | | | (SPIRIVA HANDGARRETALER) | one capsule once | capsule | [...] DR | | | | | | [place] [address] | | | | | | [phone] | | | | | | | [...] XR CHEST 2 VIEWS | Routin | 05/19/2015 | | Results for this | | | e | 1:56 PM | | procedure are in the | | | | PDT | | results section. | + +--------+ + + + documented in this encounter Results XR Chest 2 Vws (05/19/2015 1:56 PM PDT) + + | Specimen | [...]
--- OUTSIDE RECORDS SUMMARY | ~2020-02-19 | XMS | Encounter Summary ---
Demographics + + + | Address | [address] | | | [place] [address] | + + + | Home Phone [...] | + + +---------+ + | Champ Enriquezzo | ECON | Unknown | | + + +---------+ + | iMli Villavicencio | ECON | Unknown | | + + +---------+ + Care Team Providers + +------+ + | Care Shrink Pit Operator Name | Role | Phone | + +------+ + PCP | Unavailable | + +------+ + Encounter Details +--------+ + + + + | Date | Type | Department | Care Team | Description | +--------+ + + + + | 05/17/ | Hospital | [facility] | Conversion | Cardiomyopathy | | 2015 - | Encounter | [facility] | Transaction, | ([facility]); S/P AAA | | | | CLINICAL DECISION | Provider Unknown | repair | | 05/18/ | | [address] [facility] | [phone] | | | 2015 | | [place], [place] | | | | | | [address] | Terrance Martinez MD | | | | | [phone] | PhD [address] [facility] | | | | | | [address] | | | | | | [place] [address] | | | | | | [phone] | | | | | | | [...] + + documented as of this encounter Discharge Summaries Mary Tipton - 05/18/2015 8:31 AM PDTFormatting of this note might be different from the o suzanne. Discharge Summaries by MORRO Lin at 05/18/15830 Author: MORRO Lin Service: Cardiology Author Type: Nurse Practitioner Filed: 05/18/15 1103 Date of Service: 05/18/15830 Status: Signed Card Placer: MORRO Lin (Nurse Practitioner) [facility] PATIENT NAME: Franci Velázquez : 1945: AGE: 69 y.o. ADMISSION DATE: 05/17/2015 Hospital Day # 1 Date of Service: 05/18/2015 Principal Hospital Problem: <principal problem not specified> Code Status: Full Code PRIMARY CARE: MORRO Gilbert ELECTROPHYSIOLOGY HOSPITAL PROGRESS NOTE ASSESSMENT AND PLAN: 69 y.o. year old male POD1 s/p Generator Change. Incision line CDI with no signs of infection, oozing or hematoma. CXR WNL. Device interrogation WNL. Follow up in 1 week with RN. Active Problems: * No active hospital problems. * SCHEDULED MEDS: aspirin 81 mg Oral Daily co-enzyme Q-10 400 mg Oral TID levothyroxine 25 mcg Oral Daily lisinopril 5 mg Oral Daily metoprolol 25 mg Oral Daily spironolactone 25 mg Oral Daily IV INFUSIONS: OUTPATIENT MEDICATIONS: Prescriptions prior to admission Medication Sig Dispense Refill Last Dose aspirin 81 MG EC tablet Take 81 mg by mouth daily. 05/17/2015 at 0130 levothyroxine (SYNTHROID) 25 MCG tablet Take 50 mcg by mouth daily. 05/17/2015 at 0115 lisinopril (ZESTRIL) 5 MG tablet Take 1 tablet by mouth daily. 90 tablet 2 05/17/2015 at 0130 metoprolol (TOPROL-XL) 25 MG 24 hr tablet TAKE ONE TABLET BY MOUTH ONCE DAILY 90 tablet 3 05/17/2015 at 0130 spironolactone (ALDACTONE) 25 MG tablet Take 1 tablet by mouth daily. 90 tablet 2 2014 at 0130 Laboratory values which I reviewed 05/18/2015 are as follows: LABS: Recent Labs Lab 05/17/15 1516 WBC 12.96* RBC 5.14 HGB 15.7 HCT 47.0 MCV 91.3 MCH 30.5 MCHC 33.4 RDW 45.9 PLT 226 MPV 7.9 DIFFTYPE MANUAL Recent Labs Lab 05/17/15 1516 WBC 12.96* HGB 15.7 HCT 47.0 NA 137 K 4.2 CL 101 CO2 30 BUN 14 No results for input(s): INR in the last 168 hours. No results for input(s): PTT in the last 168 hours. No results found for: CHOL, LDLCALC, HDL, TRIG OBJECTIVE LATEST VITALS: BP 114/55 mmHg | Pulse 90 | Temp(Src) 98.1 F (36.7 C) (Oral) | Resp 16 | Ht 1.778 m (5' 10") | Wt 122.471 kg (270 lb) | BMI 38.74 kg/m2 | SpO2 92% I/O s (this shift): Vital sign ranges for last 24hrs: Input and output for last 24hrs: Temp: [98 F (36.7 C)-98.7 F (37.1 C)] 98.1 F (36.7 C) Heart Rate: [56-104] 90 Resp: [9-] 16 BP: (94-124)/(48-78) 114/55 mmHg FiO2 : [51 %-100 %] 100 % SpO2 Av.9 % Min: 91 % Max: 100 % could not be evaluated. This SmartLink does not work with rows of the type: 05/16 0659 In: 850 [P.O.:100; I.V.:750] Out: 500 [Urine:500] Body mass index is 38.74 kg/(m^2).; Body surface area is 2.37 meters squared. REVIEW OF SYSTEMS A 10-point review of systems was performed and is negative except for there pertinent posit deysi noted in the HPI. PHYSICAL EXAM: Admit Weight: Weight: 122.471 kg (270 lb) Current weight: Weight: 122.471 kg (270 lb) BP 114/55 mmHg | Pulse 90 | Temp(Src) 98.1 F (36.7 C) (Oral) | Resp 16 | Ht 1.778 m (5' 10") | Wt 122.471 kg (270 lb) | BMI 38.74 kg/m2 | SpO2 92% General Appearance: Alert, oriented, cooperative, no distress, appears stated age HEENT: Extraocular movements intact. Pupiles round and reactive. No xanthelasmas. No jaundi ce. NECK: No JVD, No lymphadenopathy. Trachea is at midline. CARDIAC: Normal S1 and S2 heart sounds. No murmurs, rubs, or gallops. Non-displaced, non-johnson stained apical impulse. CHEST: Normal symmetrical chest excursion. Good bilateral air entry with no crackles or whe ezing. No percussion dullness. ABDOMEN: Non tender, non distended, bowl sounds present, no organomegaly. EXTREMITIES: 2+ pulses radial and pedal, symmetric. NEURO: No focal deficits. Normal bulk, power, and tone. SKIN: No bruises or rash. Warm and dry. Signed by: MORRO Lin 05/18/2015, 8:31 AM documented in this encounte r Progress Notes Conversion Transaction, Provider Unknown - 05/18/2015 11:37 AM PDTFormatting of this note m ight be different from the original. Nurse Progress Note by Cyndee Warner RN at 05/18/15 1733 Author: Cyndee Warner RN Service: (none) Author Type: Registered Nurse Filed: 05/18/15 3128 Date of Service: 09/29/15 1137 Status: Signed Card Placer: Cyndee Warner RN (Registered Nurse) Patient discharge instructions were reviewed with patient at bedside. Patient states they u nderstand instructions.No concerns or questions voiced at this time. IV removed. Patient emmanuel eugene be discharging home to [place] with a ride from his friend. onver chetna Transaction, Provider Unknown - 05/18/2015 10:29 AM PDT Nurse Progress Note by Cyndee Warner RN at 05/18/15 1029 Author: Cyndee Warner RN Service: (none) Author Type: Registered Nurse Filed: 05/18/15 1030 Date of Service: 05/18/15 1029 Status: Signed Card Placer: Cyndee Warner RN (Registered Nurse) Patient c/o dizziness when standing to get dressed. We went and assessed the patient. He caceres s a BP of 84/49. I put the patient in trendelenburg and O2 at 2L applied. Will re-assess in 15 minutes. onver chetna Transaction, Provider Unknown - 05/18/2015 10:18 AM PDT Case Management by Mackenzie Caballero RN at 05/18/15 1018 Author: Mackenzie Caballero RN Service: (none) Author Type: Registered Nurse Filed: 05/18/15 1019 Date of Service: 05/18/15 1018 Status: Signed Card Placer: Mackenzie Caballero RN (Registered Nurse) 05/18/15 1017 Discharge Planning Evaluation Admitting Diagnosis PM generator change Readmission No Living Arrangements Alone Support Systems Family members;Spouse/significant other Type of Residence Private residence House type Apartment Elevator available No Steps to enter Other (comment) (15) Bathrooms on 1st Floor 1-Full Independent with ADL's Yes Independent with Mobility Yes Home Care Services No Caregiver after Discharge No Mental Status Oriented Anticipated Discharge Plan Post Acute Care Needs None at this time Resources Financial concerns No Transportation issues No Patient/Family concerns No Prescription Plan Yes Previous home health equipment No Vascular access device No Ostomy/Drains/Appliances No Anticipated Disposition Facility Type Home Medicare Important Message (LIBIA) Not applicable Met with: Pt and discussed discharge planning, Pt is a 69 y.o., male who lives alone in a [facility] apartment. Pt did not identify financial, transportation, support, or home safe ty needs. Pt does not use antiplatelet therapy, home O2, or other outpatient programs. CM e ncouraged them to request a CM consult as needs or questions arise. Patient's PCP is: RYAN FREY Patient's insurance: Medicare, supplement Coverage concerns: no Medication coverage/concerns: no Community resources utilized / needed: no Assistance in transportation: no Identification of any specific education / training: no Barriers to Discharge / Alternative housing needed: no Anticipated DCP: home, friend Mili to transport [place] to [place] MACKENZIE CABALLERO onver chetna Transaction, Provider Unknown - 05/17/2015 10:51 PM PDT Nurse Progress Note by Melva Harper RN at 05/17/152250 Author: Melva Harper RN Service: (none) Author Type: Registered Nurse Filed: 05/17/152252 Date of Service: 05/17/152250 Status: Signed Card Placer: Melva Harper RN (Registered Nurse) Called Dr Martinez EKG *suspect unspecified pacemaker failure. Dr Martinez notified and he wi ll see patient in the morning. Melva Harper RN docume nted in this encounter H&P Notes Terrance Martinez MD PhD - 05/17/2015 7:42 AM PDT H&P by Terrance Martinez MD at 05/17/15741 Author: Terrance Martinez MD Service: Cardiology Author Type: Physician Filed: 05/17/15741 Date of Service: 05/17/15741 Status: Signed Card Placer: Terrance Martinez MD (Physician) [facility] Service: Cardiology Pre-Operative History & Physical There have been no significant clinical changes since the completion of the H&P below. Moderate Sedation Presedation Assessment completed. ASA Classification: ASA 3: Patient with a severe systemic disease Mallampati Classification: III: Soft and hard palate and base of the uvula are visible Terrance Martinez MD 05/17/2015 7:42 AM *CORE MEASURES REMINDER: If the patient has a known or suspected infection prior to surger y, please add diagnosis to the problem list (consider: Infection 136.9). REFERRING PROVIDER: This patient is graciously referred to electrophysiology by Nav romano Md [address] [place] [address] [place] [address] REASON FOR CONSULTATION: Chief Complaint Patient presents with Establish Care ICD at [facility] in January- bygonzalez pt ASSESSMENT & PLAN: 69-year-old male with history of nonischemic cardiomyopathy, NYHA class II, status post imp lantation of a MDT PROCESS DEVELOPMENT ASSOCIATE-D by Dr. Chiang in January 2010, obesity and strong suspicion for sleep apnea , recent AAA repair (09/2014). Device is now at [facility]. 1. MDT PROCESS DEVELOPMENT ASSOCIATE-D: Tripped [facility] on March 15, 2015. BiV pacing 99.6%. Patient has a Medtronic Consu lta PROCESS DEVELOPMENT ASSOCIATE-D [id number]. 5076 atrial lead Medtronic. 6947 Sprint Quattro Medtronic RV lead and 419 5 Starfix Medtronic LV lead. All leads were implanted at time of original implant in February 06. Impedance and threshold of all leads was stable. RV lead does show 1197 ohms impedance, which is chronic. 2. NICM: LVEF pending read by Dr. Foley from recent echo 03/2015. Euvolemic on exam. 3. HTN: BP at goal. Continue guideline directed medical therapy per Dr. Foley. DISPO: Arrange for MDT BiV Generator Change at next available slot. Patient has a strong pr eference for anesthesia assistance given severe anxiety. 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 He also requests that he stay one night overnight as he has no one to assist him at home after the generator change. REVIEW OF RELEVANT MEDICAL HISTORY AND DATA: TTE: Pending 03/2015 CORONARY ANGIOGRAPHY: 10/2008 1. The left main is a large-caliber [...] and its branches are free of disease. LEFT VENTRICULOGRAM Revealed a severely-enlarged left ventricle with severe global hypokinesis of the left ventricle. The LV systolic function is severely decreased. The LV ejection fraction is estimated at 15% to 20%. No significant mitral regurgitation was seen. HISTORY OF PRESENT ILLNESS: 69 y.o. year old male presents 04/05/2015 reporting that overall he feels well. He denies an y symptoms of chest pain or shortness of breath. He had no volume overload. He enjoys going to the [employer] where he plays the slot machines. He is very anxious about his generator prescott e. EK04/05/2015 personally reviewed and interpreted reveals BiVpacing HR 91, MA 160 , QRSD 1 60, QTC 523 OUTPATIENT MEDICATIONS Current Outpatient Prescriptions on File Prior to Visit Medication Sig Dispense Refill aspirin 81 MG EC tablet Take 81 mg by mouth daily. levothyroxine (SYNTHROID) 25 MCG tablet Take 25 mcg by mouth daily. lisinopril (ZESTRIL) 5 MG tablet Take 1 tablet by mouth daily. 90 tablet 2 metoprolol (TOPROL-XL) 25 MG 24 hr tablet TAKE ONE TABLET BY MOUTH ONCE DAILY 90 tab let 3 spironolactone (ALDACTONE) 25 MG tablet Take 1 tablet by mouth daily. 90 tablet 2 No current facility-administered medications on file prior to visit. DATA: Laboratory values which I reviewed 04/05/2015 are as follows: Blood tests: Lab Results Component Value Date WBC 23.6* 09/24/2014 RBC 4.36 09/24/2014 HGB 13.4 09/24/2014 HCT 39.7 09/24/2014 PLT 227 09/24/2014 Lab Results Component Value Date NA 133* 09/24/2014 K 4.2 09/24/2014 CL 101 09/24/2014 CO2 28 09/24/2014 ANIONGAP 8 09/24/2014 GLUF 183* 09/24/2014 BUN 12 09/24/2014 CREATININE 0.81 09/24/2014 BCR 15 09/24/2014 CA 8.3* 09/24/2014 EGFR >60 09/24/2014 Lab Results Component Value Date GLUF 183* 09/24/2014 No results found for: BNP, CKTOTAL, TSH, CRP No results found for: METF, NMETFX, TFNMFX, SXSXQZK58CLR, CNXKUH86IFD, TOTEPI REVIEW OF SYSTEMS: Constitutional: Negative for fatigue. HENT: Negative for nosebleeds. Eyes: Negative for visual disturbance. Respiratory: Negative for cough and shortness of breath. Cardiovascular: Negative for chest pain, palpitations and leg swelling. Gastrointestinal: Negative for nausea, vomiting, abdominal pain and blood in stool. Genitourinary: Negative for hematuria. Musculoskeletal: Negative for myalgias, back pain and arthralgias. Skin: Negative for color change. Neurological: Negative for dizziness, syncope and numbness. Hematological: Does not bruise/bleed easily. Psychiatric/Behavioral: The patient is not nervous/anxious. Otherwise an 11-point ROS was performed and is negative. PHYSICAL EXAM: BP 130/70 mmHg | Pulse 75 | Resp 20 | Ht 1.778 m (5' 10") | Wt 125.193 kg (276 lb) | BMI 39 .60 kg/m2 | SpO2 96% General Appearance: Alert, oriented, cooperative, no distress, appears stated age HEENT: Extraocular movements intact. Pupiles round and reactive. No xanthelasmas. No jaundi ce. NECK: No JVD, No lymphadenopathy. Trachea is at midline. CARDIAC: Normal S1 and S2 heart sounds. No murmurs, rubs, or gallops. Non-displaced, non-johnson stained apical impulse. CHEST: Normal symmetrical chest excursion. Good bilateral air entry with no crackles or whe ezing. ABDOMEN: Non tender, non distended, bowel sounds present, no organomegaly. EXTREMITIES: 2+ pulses radial and pedal, symmetric. NEURO: No focal deficits. Normal bulk, power, and tone. SKIN: No bruises or rash. Warm and dry. The following portions of the patient's history were reviewed and updated as appropriate: Allergies, current medications, family history, past medical history, past social history, past surgical history, problem list. Thank you for allowing me to participate in the care of this patient. Please, do not hesitate to contact me for any further questions. MORRO Lin documented in thi s encounter Miscellaneous Notes Plan of Care - Conversion Transaction, Provider Unknown - 05/18/2015 1:02 AM PDT Plan of Care by Melva Harper RN at 05/18/15101 Author: Melva Harper RN Service: (none) Author Type: Registered Nurse Filed: 05/18/15101 Date of Service: 05/18/15101 Status: Signed Card Placer: Melva Harper RN (Registered Nurse) Problem: Pain Goal: Patient s pain/discomfort is manageable Assess and monitor patient s pain using appropriate pain scale. Collaborate with interdis ciplinary team and initiate plan and interventions as ordered. Re-assess patient s pain le frank approximately 1-2 hours after pain management intervention. Premedicate as needed. Outcome: Progressing Patient using 0-10 pain scale appropriately. Problem: Safety Goal: Patient will be injury free during hospitalization Assess and monitor vitals signs, neurological status including level of consciousness and o rientation. Assess patient s risk for falls and implement fall prevention plan of care and interventions per hospital policy. Ensure arm band on, uncluttered walking paths in room, adequate room lighting, call light a nd overbed table within reach, bed in low position, wheels locked, side rails up per policy, and non-skid footwear provided. Outcome: Progressing Patient call light within reach, bed in lowest position, wheels locked and non-skid footwea r on patient Cora mullins in this encounter Plan of Treatment +--------+ + + + + | Date | Type | Specialty | Care Team | Description | +--------+ + + + + | 04/28/ | Office | Cardiology | Nav Foley, | | | 2019 | Visit | | MD [address] | | | | | | [place] [address] | | | | | | [phone] | | | | | | | [...] | ECG 12 LEAD | Routin | 05/17/2015 | | Results for this | | | e | 10:38 PM | | procedure are in the | | | | PDT | | results section. | + +--------+ + + + | CV EP PROCEDURE | Routin | 05/17/2015 | | Results for this | | | e | 8:39 PM | | procedure are in the | | | | PDT | | results section. | + +--------+ + + + | ECHO LIMITED | Routin | 05/17/2015 | | Results for this | | | e | 5:40 PM | | procedure are in the | | | | PDT | | results section. | + +--------+ + + + | MRSA NAAT | Timed | 05/17/2015 | | Results for this | | | | 3:17 PM | | procedure are in the | | | | PDT | | results section. | + +--------+ + + + | EXTERNAL LAB: CBC | Routin | 05/17/2015 | | Results for this | | | e | 3:16 PM | | procedure are in the | | | | PDT | | results section. | + +--------+ + + + | BASIC METABOLIC | Routin | 05/17/2015 | | Results for this | | PANEL | e | 3:16 PM | | procedure are in the | | | | PDT | | results section. | + +--------+ + + + documented in this encounter Results ECG 12 lead (05/17/2015 10:38 PM PDT) + + + + + + [...] ventricular | | | | | | complexesBiventricular | | | | | | pacemaker | | | | | | detectedAbnormal ECGWhen | | | | | | compared with ECG of | | | | | | 05-APR-2015 | | | | | | 15:54,Biventricular | | | | | | pacemaker detected new | | | | | | or more evident since | | | | | | previous ECG Confirmed | | | | | | by DRE SOSA ([id number]) | | | | | | on 05/18/2015 7:46:36 AM | | | | + + + + + + + + | Specimen | + + | | + + + + + | Narrative | Performed At | + + + | Historically converted procedure from [facility] environment | EXTERNAL LAB | + + + + +---------+ + + | Performing | Address | City/State/Zipcode | Phone Number | | Organization | | | | + +---------+ + + | EXTERNAL LAB | | | | + +---------+ + + CV EP PROCEDURE (05/17/2015 8:39 PM PDT) + + | Specimen | + + | | + + + + + | Narrative | Performed At | + + + | | | | | | | DATE OF PROCEDURE May 17, 2015 PREPROCEDURE DIAGNOSIS | | | Nonischemic cardiomyopathy, PROCESS DEVELOPMENT ASSOCIATE-D system at elective replacement | | | indicator. PROCEDURES PERFORMED 1. Periprocedural PROCESS DEVELOPMENT ASSOCIATE evaluation, | | | programming and optimization. 2. Removal of a PROCESS DEVELOPMENT ASSOCIATE pulse generator. | | | 3. Implantation of a PROCESS DEVELOPMENT ASSOCIATE pulse generator. 4. Fluoroscopic lead | | | evaluation without revision or replacement (33315). PHYSICIAN | | | Terrance Martinez MD ANESTHESIA General anesthesia by the | | | anesthesiology service throughout due to the patient's severe sleep | | | apnea and inability to lay flat. CLINICAL HISTORY A 69-year-old | | | male with nonischemic cardiomyopathy, LV ejection fraction 15% to 20% | | | in 2008, increased to 30% to 35% by echocardiogram April 2015, | | | [employer] functional Class II, status severe sleep | | | apnea, recent triple aneurysm, prepare PROCESS DEVELOPMENT ASSOCIATE system presently at [facility] | | | underlying the patient's left bundle branch block with ongoing | | | depressed LV ejection fraction for which ongoing ICD protection and | | | PROCESS DEVELOPMENT ASSOCIATE therapy is indicated. The patient is referred for replacement of | | | his ICD pulse generator, anticipated to live in excess of 1 year. | | | PROCEDURE IN DETAIL Informed consent for the procedure was obtained | | | in the outpatient setting. The patient was taken to the | | | electrophysiology suite in the nonsedated fasting state. A timeout | | | was performed to confirm the patient's identity and nature and | | | location of the planned procedure. The patient was then prepped and | | | draped in the usual sterile fashion for ICD replacement in the left | | | upper chest. Prior to the sterile prep, the patient's pacer device | | | was interrogated. He was found to be nondependent, non paced, ECG | | | showed left bundle branch block, QRS 138 msec unpaced, LV offset at | | | baseline had been -20 msec. Lidocaine 1% was used for local | | | anesthesia and a 4 cm incision was then made adjacent to the prior | | | surgical scar. This was extended down to the ICD capsule with cautery | | | plasma blade which was incised and expanded digitally in the medial | | | and lateral directions which allowed removal of the ICD from the | | | tissue capsule. As the patient was not dependent, all leads were | | | removed from the ICD pulse generator. Additional capsular dissection | | | was performed at the base of the pocket to facilitate wound healing | | | and drainage of any serosanguineous material. Pocket was flushed with | | | vancomycin-impregnated sterile saline and hemostasis was confirmed. | | | Additional cautery was used to achieve hemostasis along the wound | | | margins. All leads were positioned within the new device and these | | | were confirmed to be accurate with device interrogation from the PSA. | | | Nonresorbable anchoring suture tie was placed to maintain the ICD in | | | a sufficiently medial position. Wound closure was then completed | | | with 2-0 Vicryl for the capsular layer in a continuously running | | | fashion with 2-0 Vicryl in duplicate for subcutaneous closure, and | | | 4-0 for subcuticular closure. The incision was protected with | | | Steri-Strips, gauze, and a clear adhesive dressing was applied. | | | The patient was awakened from procedural sedation, was alert and | | | oriented in the EP lab, and transferred to the recovery area in | | | satisfactory condition. COMPLICATIONS None. ESTIMATED BLOOD | | | LOSS 5 mL. REMOVED MATERIAL Medtronic Bi-V ICD, serial number | | | [id number], implanted January 27, 2010. IMPLANTED MATERIALS | | | Medtronic Viva XT PROCESS DEVELOPMENT ASSOCIATE-D, serial number [id number]. PREVIOUSLY | | | IMPLANTED LEADS Medtronic right atrial lead, 5076, 52 cm, serial | | | number [id number], implanted January 27, 2010, 4 mV P waves, impedance | | | 399 ohms, threshold 0.5 V at 0.5 msec. RV lead is a Medtronic | | | 6947, 65 cm, serial number [id number], implanted January 27, 2010, 5.5 | | | mV R waves, impedance 988 ohms, threshold 0.5 V at 0.4 msec. LV | | | lead is a Medtronic 4195, 88 cm, serial number [id number], implanted | | | January 27, 2010. We know that this is a Medtronic StarFix lead, | | | impedance 456 ohms, threshold 0.75 V at 0.4 msec. Periprocedure, | | | the patient's ICD was assessed with stored fluoroscopy in both the | | | ANDORRAN and VILLALPANDO fluoroscopic views demonstrating satisfactory lead | | | positioning and no observable mechanical disruption. Vinh | | | programming is DDD 60 to 120, sleep hysteresis 50 beats per minute. | | | ECG-guided PROCESS DEVELOPMENT ASSOCIATE optimization was performed noting the prior LV offset | | | was -20. This was assessed at unpaced, 0, -20, -40. Unpaced there | | | was left bundle branch block, QRS 138, MA 178 msec. At 0 offset, QRS | | | was 149, isoelectric in lead I, mildly negative in V1. At -20, QRS | | | duration was 163, still isoelectric in lead I, mild positivity in V1. | | | At -40, QRS is 174 with more jorge alberto negativity in lead I and | | | positivity in lead V1. -40 was selected for final programming given | | | the patient's equivocal clinical response to PROCESS DEVELOPMENT ASSOCIATE therapies in 2009. | | | IMPRESSION Successful replacement of a PROCESS DEVELOPMENT ASSOCIATE-D pulse generator with | | | successful PROCESS DEVELOPMENT ASSOCIATE optimization selecting an LV offset of -40 over a | | | previous value of -20. PLAN 1. The patient to be sent to the PACU | | | and then observed overnight. 2. Plan for device interrogation and | | | discharge tomorrow. 3. Additional dose of vancomycin. 4. | | | Interrogation prior to discharge. 5. Follow up with incision check in | | | 7 days and device clinic in 3 months. Thank you to Dr. Chopra | | | Alaina for referring this patient for electrophysiology management. | | | Read by TERRANCE MARTINEZ MD 05/17/2015 08:18 P | | | | | + + + + + | Procedure Note | + + | David Mckeon Conversion - 04/09/2019 2:35 PM PDT | | | | DATE OF PROCEDURE | | May 17, 2015 | | | | PREPROCEDURE DIAGNOSIS | | Nonischemic cardiomyopathy, PROCESS DEVELOPMENT ASSOCIATE-D system at elective replacement | | indicator. | | | | PROCEDURES PERFORMED | | 1. Periprocedural PROCESS DEVELOPMENT ASSOCIATE evaluation, programming and optimization. | | 2. Removal of a PROCESS DEVELOPMENT ASSOCIATE pulse generator. | | 3. Implantation of a PROCESS DEVELOPMENT ASSOCIATE pulse generator. | | 4. Fluoroscopic lead evaluation without revision or replacement ([id number]). | | | | PHYSICIAN | | Terrance Martinez MD | | | | ANESTHESIA | | General anesthesia by the anesthesiology service throughout due to the | | patient's severe sleep apnea and inability to lay flat. | | | | CLINICAL HISTORY | | A 69-year-old male with nonischemic cardiomyopathy, LV ejection fraction | | 15% to 20% in 2008, increased to 30% to 35% by echocardiogram April | | 2014, [employer] functional Class II, status severe sleep | | apnea, recent triple aneurysm, prepare PROCESS DEVELOPMENT ASSOCIATE system presently at [facility] | | underlying the patient's left bundle branch block with ongoing depressed | | LV ejection fraction for which ongoing ICD protection and PROCESS DEVELOPMENT ASSOCIATE therapy is | | indicated. The patient is referred for replacement of his ICD pulse | | generator, anticipated to live in excess of 1 year. | | | | PROCEDURE IN DETAIL | | Informed consent for the procedure was obtained in the outpatient setting. | | The patient was taken to the electrophysiology suite in the nonsedated | | fasting state. A timeout was performed to confirm the patient's identity | | and nature and location of the planned procedure. The patient was then | | prepped and draped in the usual sterile fashion for ICD replacement in the | | left upper chest. | | | | Prior to the sterile prep, the patient's pacer device was interrogated. He | | was found to be nondependent, non paced, ECG showed left bundle branch | | block, QRS 138 msec unpaced, LV offset at baseline had been -20 msec. | | | | Lidocaine 1% was used for local anesthesia and a 4 cm incision was then | | made adjacent to the prior surgical scar. This was extended down to the | | ICD capsule with cautery plasma blade which was incised and expanded | | digitally in the medial and lateral directions which allowed removal of | | the ICD from the tissue capsule. As the patient was not dependent, all | | leads were removed from the ICD pulse generator. Additional capsular | | dissection was performed at the base of the pocket to facilitate wound | | healing and drainage of any serosanguineous material. Pocket was flushed | | with vancomycin-impregnated sterile saline and hemostasis was confirmed. | | Additional cautery was used to achieve hemostasis along the wound margins. | | All leads were positioned within the new device and these were confirmed | | to be accurate with device interrogation from the PSA. Nonresorbable | | anchoring suture tie was placed to maintain the ICD in a sufficiently | | medial position. | | | | Wound closure was then completed with 2-0 Vicryl for the capsular layer in | | a continuously running fashion with 2-0 Vicryl in duplicate for | | subcutaneous closure, and 4-0 for subcuticular closure. The incision was | | protected with Steri-Strips, gauze, and a clear adhesive dressing was | | applied. | | | | The patient was awakened from procedural sedation, was alert and oriented | | in the EP lab, and transferred to the recovery area in satisfactory | | condition. | | | | COMPLICATIONS | | None. | | | | ESTIMATED BLOOD LOSS | | 5 mL. | | | | REMOVED MATERIAL | | Medtronic Bi-V ICD, serial number [id number], implanted January 27, 2010. | | | | IMPLANTED MATERIALS | | Medtronic Viva XT PROCESS DEVELOPMENT ASSOCIATE-D, serial number [id number]. | | | | PREVIOUSLY IMPLANTED LEADS | | Medtronic right atrial lead, 5076, 52 cm, serial number [id number], | | implanted January 27, 2010, 4 mV P waves, impedance 399 ohms, threshold 0.5 V | | at 0.5 msec. | | | | RV lead is a Medtronic 6947, 65 cm, serial number [id number], implanted | | January 27, 2010, 5.5 mV R waves, impedance 988 ohms, threshold 0.5 V at 0.4 | | msec. | | | | LV lead is a Medtronic 4195, 88 cm, serial number [id number], implanted | | January 27, 2010. We know that this is a Medtronic StarFix lead, impedance | | 456 ohms, threshold 0.75 V at 0.4 msec. | | | | Periprocedure, the patient's ICD was assessed with stored fluoroscopy in | | both the ANDORRAN and VILLALPANDO fluoroscopic views demonstrating satisfactory lead | | positioning and no observable mechanical disruption. | | | | Vinh programming is DDD 60 to 120, sleep hysteresis 50 beats per minute. | | | | ECG-guided PROCESS DEVELOPMENT ASSOCIATE optimization was performed noting the prior LV offset was | | -20. This was assessed at unpaced, 0, -20, -40. Unpaced there was left | | bundle branch block, QRS 138, MA 178 msec. At 0 offset, QRS was 149, | | isoelectric in lead I, mildly negative in V1. At -20, QRS duration was | | 163, still isoelectric in lead I, mild positivity in V1. At -40, QRS is | | 174 with more jorge alberto negativity in lead I and positivity in lead V1. -40 | | was selected for final programming given the patient's equivocal clinical | | response to PROCESS DEVELOPMENT ASSOCIATE therapies in 2009. | | | | IMPRESSION | | Successful replacement of a PROCESS DEVELOPMENT ASSOCIATE-D pulse generator with successful PROCESS DEVELOPMENT ASSOCIATE | | optimization selecting an LV offset of -40 over a previous value of -20. | | | | PLAN | | 1. The patient to be sent to the PACU and then observed overnight. | | 2. Plan for device interrogation and discharge tomorrow. | | 3. Additional dose of vancomycin. | | 4. Interrogation prior to discharge. | | 5. Follow up with incision check in 7 days and device clinic in 3 months. | | | | | | Thank you to Dr. Nav Foley for referring this patient for | | electrophysiology management. | | | | | | | | | | | | | | Read by TERRANCE MARTINEZ MD 05/17/2015 08:18 P | | | | | + + Echo Limited (05/17/2015 5:40 PM PDT) + + | Specimen | + + | | + + + + + | Impressions | Performed At | + + + | 1. Undetermined rhythm. 2. A limited 2-dimensional transthoracic | | | echocardiogram with limited spectral and color flow Doppler was | | | performed. 3. This was a technically adequate study. 4. Overall left | | | ventricular systolic function is moderately impaired with, an EF | | | between 35 - 40 %. 5. The left ventricle cavity size is normal. 6. | | | Left ventricular wall thickness is normal. 7. The right ventricle is | | | normal in size. 8. The right ventricular systolic function is mildly | | | impaired. 9. The left atrium is mildly dilated. 10. The right atrium | | | was not well visualized. 11. The mitral valve is normal. 12. Trace | | | tricuspid regurgitation present. | | + + + + + + | Narrative | Performed At | + + + | Patient Name: FRANCI VELÁZQUEZ Date of : 1945 | | | Performing Physician: Terrance Martinez MD | | | | | | INDICATIONS Cardiomyopathy ( Eval LVEF ). | | | CONCLUSIONS 1. Undetermined rhythm. 2. A limited | | | 2-dimensional transthoracic echocardiogram with limited spectral and | | | color flow Doppler was performed. 3. This was a technically adequate | | | study. 4. Overall left ventricular systolic function is moderately | | | impaired with, an EF between 35 - 40 %. 5. The left ventricle cavity | | | size is normal. 6. Left ventricular wall thickness is normal. 7. The | | | right ventricle is normal in size. 8. The right ventricular systolic | | | function is mildly impaired. 9. The left atrium is mildly dilated. | | | 10. The right atrium was not well visualized. 11. The mitral valve is | | | normal. 12. Trace tricuspid regurgitation present. FINDINGS | | | -------- ECG rhythm: Undetermined rhythm. Study: A limited | | | 2-dimensional transthoracic echocardiogram with limited spectral and | | | color flow Doppler was performed. Study: This was a technically | | | adequate study. Left Ventricle: Overall left ventricular systolic | | | function is moderately impaired with, an EF between 35 - 40 %. Left | | | Ventricle: Left Ventricle ejection fraction by m-mode measures | | | {EF(Teich)}. Left Ventricle: The left ventricle cavity size is | | | normal. Left Ventricle: Left ventricular wall thickness is normal. | | | Right Ventricle: The right ventricle is normal in size. Right | | | Ventricle: The right ventricular systolic function is mildly impaired. | | | Left Atrium: The left atrium is mildly dilated Left Atrium: , and | | | the LA measures 4.2cm. Right Atrium: The right atrium was not well | | | visualized. Aortic Valve: The aortic valve is trileaflet and appears | | | structurally normal. Aortic Valve: There is no evidence of aortic | | | regurgitation. Mitral Valve: The mitral valve is normal. Mitral | | | Valve: No mitral regurgitation. Mitral Valve: Mild mitral annular | | | calcification present. Tricuspid Valve: The tricuspid valve appears | | | structurally normal. Tricuspid Valve: Trace tricuspid regurgitation | | | present. Pulmonic Valve: The pulmonic valve was not well visualized. | | | Pericardium: There is no pericardial effusion. Mass: No mass | | | visualized MEASUREMENTS EDV(Teich): 137.11 ml | | | IVSd: 0.78 cm LVIDd: 5.32 cm LVPWd: 1.01 cm LVOT Diam: | | | 2.17 cm %FS: 14.22 % EF(Teich): 30.02 % ESV(Teich): 95.94 | | | ml IVSs: 0.94 cm LVIDs: 4.57 cm LVPWs: 1.20 cm SV(Teich): | | | 41.17 ml LVEF MOD A2C: 39.64 % SV MOD A2C: 82.87 ml LVEF | | | MOD A4C: 44.41 % SV MOD A4C: 119.03 ml EF Biplane: 42.92 % | | | LVEDV MOD BP: 237.32 ml LVESV MOD BP: 135.45 ml LVEDV MOD | | | A2C: 209.03 ml LVLd A2C: 8.71 cm LVEDV MOD A4C: 267.98 ml | | | LVLd A4C: 8.82 cm LVESV MOD A2C: 126.16 ml LVLs A2C: 8.11 | | | cm LVESV MOD A4C: 148.95 ml LVLs A4C: 7.54 cm LAAs A4C: | | | 13.83 cm2 LAESV A-L A4C: 39.99 ml LALs A4C: 4.06 cm Ao Diam: | | | 3.85 cm AV Cusp: 2.04 cm LA Diam: 4.15 cm LA/Ao: 1.07 | | | HR: 81.35 BPM AV maxP.24 mmHg AV meanP.14 mmHg AV | | | Vmax: 0.90 m/s AV Vmean: 0.71 m/s AV VTI: 14.68 cm GOPAL | | | Vmax: 3.26 cm2 GOPAL (VTI): 3.58 cm2 LVCI Dopp: 1.79 l/minm2 | | | LVCO Dopp: 4.25 l/min HR: 80.74 BPM LVOT maxP.51 mmHg | | | LVOT meanP.40 mmHg LVSI Dopp: 22.22 ml/m2 LVSV Dopp: | | | 52.66 ml LVOT Vmax: 0.79 m/s LVOT Vmean: 0.55 m/s LVOT VTI: | | | 14.20 cm MCO: 499.07 ms MV A Frank: 0.62 m/s MV DecT: | | | 165.84 ms MV E Frank: 0.32 m/s MV E/A Ratio: 0.51 MV PHT: | | | 60.22 ms MVA By PHT: 3.65 cm2 MV A Dur: 121.99 ms HR: | | | 76.19 BPM PV maxP.30 mmHg PV meanP.51 mmHg PV Vmax: | | | 0.75 m/s PV Vmean: 0.60 m/s PV VTI: 11.79 cm TV A Frank: | | | 0.43 m/s TV Dec [place]: 1.33 m/s2 TV Dec Time: 204.41 ms TV E | | | Frank: 0.27 m/s TV E/A Ratio: 0.62 Hearse Driver: PEDRITO | | | Authenticated by: Terrance Martinez MD Report Date/Time: 05-30-2015 | | | 15:21:28 | | + + + + + | Procedure Note | + + | David Mckeon Conversion - 04/03/2019 11:51 PM PDT Patient Name: Silvia VELÁZQUEZ | | of : 1945 Performing Physician: Terrance Martinez | | MD INDICATIONS C | | ardiomyopathy ( Eval LVEF ). CONCLUSIONS 1. Undetermined rhythm.2. A limited | | 2-dimensional transthoracic echocardiogram with limited spectral and color flow Doppler | | was performed.3. This was a technically adequate study.4. Overall left ventricular | | systolic function is moderately impaired with, an EF between 35 - 40 %.5. The left | | ventricle cavity size is normal.6. Left ventricular wall thickness is normal.7. The | | right ventricle is normal in size.8. The right ventricular systolic function is mildly | | impaired.9. The left atrium is mildly dilated.10. The right atrium was not well | | visualized.11. The mitral valve is normal.12. Trace tricuspid regurgitation present. | | FINDINGS--------ECG rhythm: Undetermined rhythm.Study: A limited 2-dimensional | | transthoracic echocardiogram with limited spectral and color flow Doppler was | | performed.Study: This was a technically adequate study.Left Ventricle: Overall left | | ventricular systolic function is moderately impaired with, an EF between 35 - 40 %.Left | | Ventricle: Left Ventricle ejection fraction by m-mode measures {EF(Teich)}.Left | | Ventricle: The left ventricle cavity size is normal.Left Ventricle: Left ventricular | | wall thickness is normal.Right Ventricle: The right ventricle is normal in size.Right | | Ventricle: The right ventricular systolic function is mildly impaired.Left Atrium: The | | left atrium is mildly dilatedLeft Atrium: , and the LA measures 4.2cm.Right Atrium: The | | right atrium was not well visualized.Aortic Valve: The aortic valve is trileaflet and | | appears structurally normal.Aortic Valve: There is no evidence of aortic | | regurgitation.Mitral Valve: The mitral valve is normal.Mitral Valve: No mitral | | regurgitation.Mitral Valve: Mild mitral annular calcification present.Tricuspid Valve: | | The tricuspid valve appears structurally normal.Tricuspid Valve: Trace tricuspid | | regurgitation present.Pulmonic Valve: The pulmonic valve was not well | | visualized.Pericardium: There is no pericardial effusion.Mass: No mass visualized | | MEASUREMENTS EDV(Teich): 137.11 mlIVSd: 0.78 cmLVIDd: 5.32 cmLVPWd: | | 1.01 cmLVOT Diam: 2.17 cm%FS: 14.22 %EF(Teich): 30.02 %ESV(Teich): 95.94 mlIVSs: | | 0.94 cmLVIDs: 4.57 cmLVPWs: 1.20 cmSV(Teich): 41.17 mlLVEF MOD A2C: 39.64 %SV | | MOD A2C: 82.87 mlLVEF MOD A4C: 44.41 %SV MOD A4C: 119.03 mlEF Biplane: 42.92 | | %LVEDV MOD BP: 237.32 mlLVESV MOD BP: 135.45 mlLVEDV MOD A2C: 209.03 mlLVLd A2C: | | 8.71 cmLVEDV MOD A4C: 267.98 mlLVLd A4C: 8.82 cmLVESV MOD A2C: 126.16 mlLVLs A2C: | | 8.11 cmLVESV MOD A4C: 148.95 mlLVLs A4C: 7.54 cmLAAs A4C: 13.83 [id number] A-L | | A4C: 39.99 mlLALs A4C: 4.06 cmAo Diam: 3.85 cmAV Cusp: 2.04 cmLA Diam: 4.15 | | cmLA/Ao: 1.07HR: 81.35 BPMAV maxP.24 mmHgAV meanP.14 mmHgAV Vmax: 0.90 | | m/Fabricio Vmean: 0.71 m/Fabricio VTI: 14.68 cmAVA Vmax: 3.26 cm2AVA (VTI): 3.58 [id number] | | Dopp: 1.79 l/[id number] Dopp: 4.25 l/minHR: 80.74 BPMLVOT maxP.51 mmHgLVOT | | meanP.40 mmHgLVSI Dopp: 22.22 ml/m2LVSV Dopp: 52.66 mlLVOT Vmax: 0.79 | | m/sLVOT Vmean: 0.55 m/sLVOT VTI: 14.20 cmMCO: 499.07 msMV A Frank: 0.62 m/sMV | | DecT: 165.84 msMV E Frank: 0.32 m/sMV E/A Ratio: 0.51MV PHT: 60.22 msMVA By PHT: | | 3.65 cm2MV A Dur: 121.99 msHR: 76.19 BPMPV maxP.30 mmHgPV meanP.51 | | mmHgPV Vmax: 0.75 m/sPV Vmean: 0.60 m/sPV VTI: 11.79 cmTV A Frank: 0.43 m/sTV Dec | | [place]: 1.33 m/s2TV Dec Time: 204.41 msTV E Frank: 0.27 m/sTV E/A Ratio: 0.62 | | Hearse Driver: PEDRITOAutjoniticated by: Terrance Martinez [facility] Date/Time: 05-30-2015 15:21:28 | | IMPRESSION: 1. Undetermined rhythm.2. A limited 2-dimensional transthoracic | | echocardiogram with limited spectral and color flow Doppler was performed.3. This was a | | technically adequate study.4. Overall left ventricular systolic function is moderately | | impaired with, an EF between 35 - 40 %.5. The left ventricle cavity size is normal.6. | | Left ventricular wall thickness is normal.7. The right ventricle is normal in size.8. | | The right ventricular systolic function is mildly impaired.9. The left atrium is mildly | | dilated.10. The right atrium was not well visualized.11. The mitral valve is normal.12. | | Trace tricuspid regurgitation present. | | | |EDV(Teich): 137.11 ml | |IVSd: 0.78 cm | |LVIDd: 5.32 cm | |LVPWd: 1.01 cm | |LVOT Diam: 2.17 cm | |%FS: 14.22 % | |EF(Teich): 30.02 % | |ESV(Teich): 95.94 ml | |IVSs: 0.94 cm | |LVIDs: 4.57 cm | |LVPWs: 1.20 cm | |SV(Teich): 41.17 ml | |LVEF MOD A2C: 39.64 % | |SV MOD A2C: 82.87 ml | |LVEF MOD A4C: 44.41 % | |SV MOD A4C: 119.03 ml | |EF Biplane: 42.92 % | |LVEDV MOD BP: 237.32 ml | |LVESV MOD BP: 135.45 ml | |LVEDV MOD A2C: 209.03 ml | |LVLd A2C: 8.71 cm | |LVEDV MOD A4C: 267.98 ml | |LVLd A4C: 8.82 cm | |LVESV MOD A2C: 126.16 ml | |LVLs A2C: 8.11 cm | |LVESV MOD A4C: 148.95 ml | |LVLs A4C: 7.54 cm | |LAAs A4C: 13.83 cm2 | |LAESV A-L A4C: 39.99 ml | |LALs A4C: 4.06 cm | |Ao Diam: 3.85 cm | |AV Cusp: 2.04 cm | |LA Diam: 4.15 cm | |LA/Ao: 1.07 | |HR: 81.35 BPM | |AV maxP.24 mmHg | |AV meanP.14 mmHg | |AV Vmax: 0.90 m/s | |AV Vmean: 0.71 m/s | |AV VTI: 14.68 cm | |GOPAL Vmax: 3.26 cm2 | |GOPAL (VTI): 3.58 cm2 | |LVCI Dopp: 1.79 l/minm2 | |LVCO Dopp: 4.25 l/min | |HR: 80.74 BPM | |LVOT maxP.51 mmHg | |LVOT meanP.40 mmHg | |LVSI Dopp: 22.22 ml/m2 | |LVSV Dopp: 52.66 ml | |LVOT Vmax: 0.79 m/s | |LVOT Vmean: 0.55 m/s | |LVOT VTI: 14.20 cm | |MCO: 499.07 ms | |MV A Frank: 0.62 m/s | |MV DecT: 165.84 ms | |MV E Frank: 0.32 m/s | |MV E/A Ratio: 0.51 | |MV PHT: 60.22 ms | |MVA By PHT: 3.65 cm2 | |MV A Dur: 121.99 ms | |HR: 76.19 BPM | |PV maxP.30 mmHg | |PV meanP.51 mmHg | |PV Vmax: 0.75 m/s | |PV Vmean: 0.60 m/s | |PV VTI: 11.79 cm | |TV A Frank: 0.43 m/s | |TV Dec [place]: 1.33 m/s2 | |TV Dec Time: 204.41 ms | |TV E Frank: 0.27 m/s | |TV E/A Ratio: 0.62 | | | |Hearse Driver: PEDRITO | |Authenticated by: Terrance Martinez MD | |Report Date/Time: 05-30-2015 15:21:28 | | | |IMPRESSION: | |1. Undetermined rhythm. | |2. A limited 2-dimensional transthoracic echocardiogram with limited spectral and color cammie w Doppler was performed. | |3. This was a technically adequate study. | |4. Overall left ventricular systolic function is moderately impaired with, an EF between 35 - 40 %. | |5. The left ventricle cavity size is normal. | |6. Left ventricular wall thickness is normal. | |7. The right ventricle is normal in size. | |8. The right ventricular systolic function is mildly impaired. | |9. The left atrium is mildly dilated. | |10. The right atrium was not well visualized. | |11. The mitral valve is normal. | |12. Trace tricuspid regurgitation present. | + + MRSA NAAT (05/17/2015 3:17 PM PDT) + + | Specimen | + + | | + + + + + | Narrative | Performed At | + + + | SOURCE NARES(NOSE) | EXTERNAL LAB | | Testing performed at [facility] [place] [place] [address];[place] [address] MRSA PCR | | | NEGATIVE Testing performed at | | | [address];[place] [address] | | + + + + +---------+ + + | Performing | Address | City/State/Zipcode | Phone Number | | Organization | | | | + +---------+ + + | EXTERNAL LAB | | | | + +---------+ + + External Lab: CBC (05/17/2015 3:16 PM PDT) + + + + + + | Component | Value | Ref Range | Performed | Pathologist | | | | | At | Signature | + + + + + + | WBC | 12.96 (H)Comment: | 3.80 - 11.00 | EXTERNAL | | | | Testing performed at | K/uL | LAB | | | | [facility] [place];[place] [address] | | | | + + + + + + | Red Blood | 5.14Comment: Testing | 4.20 - 5.70 | EXTERNAL | | | Cells | performed at [facility] [place] | M/uL | LAB | | | Counted | [address];[place] | | | | | | [phone] | | | | + + + + + + | Hemoglobin | 15.7Comment: Testing | 13.2 - 17.0 | EXTERNAL | | | | performed at [facility] [place] | g/dL | LAB | | | | [address];[place] | | | | | | [address] | | | | + + + + + + | Hematocrit, | 47.0Comment: Testing | 39.0 - 50.0 % | EXTERNAL | | | POC | performed at [facility] [place] | | LAB | | | [address];[place] | | | | | | [address] | | | | + + + + + + | MCV | 91.3Comment: Testing | 80.0 - 100.0 fl | EXTERNAL | | | | performed at [facility] [place] | | LAB | | | [address];[place] | | | | | | [address] | | | | + + + + + + | MCH | 30.5Comment: Testing | 27.0 - 34.0 pg | EXTERNAL | | | | performed at [facility] [place] | | LAB | | | [address];[place] | | | | | | [address] | | | | + + + + + + | MCHC | 33.4Comment: Testing | 32.0 - 35.5 | EXTERNAL | | | | performed at [facility] [place] | g/dL | LAB | | | [address];[place] | | | | | | [address] | | | | + + + + + + | RDW-CV | 45.9Comment: Testing | 37 - 53 fl | EXTERNAL | | | | performed at [facility] [place];[address] | | LAB | | | [address];[place] | | | | | | [address] | | | | + + + + + + | Platelet | 226Comment: Testing | 150 - 400 K/uL | EXTERNAL | | | Count | performed at [facility] [place];[address] | | LAB | | | Plasma | [address];[place] | | | | | | [address] | | | | + + + + + + | MPV | 7.9Comment: Testing | fl | EXTERNAL | | | | performed at [facility] [place] | | LAB | | | [address];[place] | | | | | | [address] | | | | + + + + + + | Differentia | MANUALComment: Testing | | EXTERNAL | | | l Type | performed at [facility] [place] | | LAB | | | [address];[place] | | | | | | [address] | | | | + + + + + + | Segmented | 79Comment: Testing | % | EXTERNAL | | | Neutrophils | performed at [facility] [place];[address] | | LAB | | | Manual | [address];[place] | | | | | | [address] | | | | + + + + + + | Lymphocytes | 10Comment: Testing | % | EXTERNAL | | | Manual | performed at [facility] [place];[address] | | LAB | | | [address];[place] | | | | | | [address] | | | | + + + + + + | Monocytes | 11Comment: Testing | % | EXTERNAL | | | Manual | performed at [facility] [place];[address] | | LAB | | | | [address];[place] | | | | | | [address] | | | | + + + + + + | Absolute | 10.23 (H)Comment: | 1.90 - 7.40 | EXTERNAL | | | Neutrophils | Testing performed at | K/uL | LAB | | | | [facility] [place];[place] [address] | | | | + + + + + + | Absolute | 1.30Comment: Testing | 1.00 - 3.90 | EXTERNAL | | | Lymphocytes | performed at [facility] [place] | K/uL | LAB | | | | [address];[place] | | | | | | [address] | | | | + + + + + + | Absolute | 1.43 (H)Comment: Testing | 0.00 - 0.80 | EXTERNAL | | | Monocytes | performed at [facility] [place] | K/uL | LAB | | | | [address];[place] | | | | | | [address] | | | | + + + + + + | RBC | RBC AND PLT MORPHOLOGY | | EXTERNAL | | | Morphology | APPEAR NORMALComment: | | LAB | | | | Testing performed at | | | | | | [facility] [place];[address];[place] [address] | | | | + + + [...] + +---------+ + + Basic Metabolic Panel (05/17/2015 3:16 PM PDT) + + + + + + | Component | Value | Ref Range | Performed | Pathologist | | | | | At | Signature | + + + + + + | Na | 137Comment: Testing | 135 - 143 | EXTERNAL | | | | performed at [facility] [place] | mmol/L | LAB | | | | [address];[place] | | | | | | [address] | | | | + + + + + + | K | 4.2Comment: SLT | 3.5 - 4.9 | EXTERNAL | | | | HEMOLYSISTesting | mmol/L | LAB | | | | performed at [facility] [place];[address] | | | | | [address];[place] | | | | | | [address] | | | | + + + + + + | Cl | 101Comment: Testing | 99 - 109 mmol/L | EXTERNAL | | | | performed at [facility] [place] [place];[address] | | LAB | | | | [address];[place] | | | | | | [address] | | | | + + + + + + | CO2 | 30Comment: Testing | 23 - 32 mmol/L | EXTERNAL | | | | performed at [facility] [place] | | LAB | | | | [address];[place] | | | | | | [address] | | | | + + + + + + | Anion Gap | 11Comment: Testing | 5 - 20 mmol/L | EXTERNAL | | | | performed at [facility] [place] | | LAB | | | | [address];[place] | | | | | | [address] | | | | + + + + + + | Glucose, | 123 (H)Comment: Testing | 65 - 99 mg/dL | EXTERNAL | | | Fasting | performed at [facility] [place] | | LAB | | | | [address];[place] | | | | | | [address] | | | | + + + + + + | BUN | 14Comment: Testing | 8 - 25 mg/dL | EXTERNAL | | | | performed at [facility] [place] | | LAB | | | | [address];[place] | | | | | | [address] | | | | + + + + + + | Creatinine | 0.94Comment: Testing | 0.70 - 1.30 | EXTERNAL | | | | performed at [facility] [place] | mg/dL | LAB | | | | [address];[place] | | | | | | [address] | | | | + + + + + + | BUN/Creatin | 15Comment: Testing | | EXTERNAL | | | ine Ratio | performed at [facility] [place] | | LAB | | | | [address];[place] | | | | | | [address] | | | | + + + + + + | Calcium | 8.9Comment: Testing | 8.5 - 10.5 | EXTERNAL | | | | performed at [facility] [place] | mg/dL | LAB | | | | [address];[place] | | | | | | [address] | | | | + + + [...] | | | | | | at [facility] [place] | | | [address];[place] [address] | | | | + + + [...] + | Diagnosis | + + | Cardiomyopathy (HCC) Other primary cardiomyopathies | + + | S/P AAA repair Other postprocedural status | + + documented in this encounter
--- OUTSIDE RECORDS SUMMARY | ~2020-02-19 | XMS | Encounter Summary ---
Demographics + + + | Address | [address] | | | [place] [address] | + + + | Home Phone [...] Team Providers + +------+ + | Care Hatchery Laborer Name | Role | Phone | + +------+ + | Carla Murphy | PCP | | | PA-C | | | + +------+ + Encounter Details +--------+ + + + + | Date | Type | Department | Care Team | Description | +--------+ + + + + | 03/12/ | Orders Only | [facility] | Provider, | Type 2 diabetes | | 2019 | | SYSTEM GENERIC OP | MD [address] | mellitus without | | | | CONVERSION [address] | [address] | complications (HCC); | | | | [address] [place], [place] | [place] [address] | Encounter for | | | | [address] | | therapeutic drug | | | | [phone] | | level monitoring | +--------+ + [...] DR | | | | | | [place] [address] | | | | | | [phone] | | | | | | | [...]
--- OUTSIDE RECORDS SUMMARY | ~2020-02-19 | XMS | Encounter Summary ---
Demographics + + + | Address | [address] | | | [place] [address] | + + + | Home Phone | | + + + | Preferred Language | Unknown | + + + | Marital Status | | + + + | Cheondoism Affiliation | Unknown | + + + [...] Team Providers + +------+ + | Care Sales Representative Education Courses Name | Role | Phone | + [...] + + | 07/30/ | Procedure | [facility] | | Syncope and collapse | | 2019 | visit | CARDIOLOGY TRADE | | (Primary Dx); | | | | [address] | | Cardiac | | | | [place], [place] | | resynchronization | | | | [address] | | therapy | | | | [phone] | | defibrillator | | | | | | (ESCROW MANAGER-D) in place; | | | | | [...] Syncope and collapse; Cardiac resynchronization therapy defibrillator (ESCROW MANAGER-D) in place; Non-sustained ventricular tachycardia (HCC); Non-ischemic cardiomyopathy (HCC)Device interrogation done by Mary Tipton Any events or changes listed in office note. See device data attached to scheduled encounter for additional details. study manager: Orin Shoemakre, study manager [facility] Associated attestation - Mary Tipton ANP - 07/30/2019 4:43 PM PST Problem List Cardiac resynchronization therapy defibrillator (ESCROW MANAGER-D) in place Overview History of nonischemic cardiomyopathy, NYHA class II, status post implantation of a MDT C RT-D by Dr. Chiang in January 2010. Generator change by Dr. Delarosa in 2014 viva xt ESCROW MANAGER D MDT number [id number].Patient has a 5076 atrial lead [employer]tr[employer]. 6947 [...] at the time of his hospitalization at [facility]. Non-ischemic cardiomyopathy Overview EF 35-40%, class [...] recent stress testing. Request echo results from [facility]. Will discuss next steps with Dr. Chavez [...] data and rhythm strips, please see osmin se/organic preparation technician entry in the notes section and [...] DR | | | | | | [place] [address] | | | | | | [phone] | | | | | | | [...] defibrillator | | | | | | (ESCROW MANAGER-D) in place | | | | | [...] encounter for additional details. | | | study manager: Orin Shoemaker, study manager [facility] | | |See device data attached to scheduled encounter for additional | | |details. | | | | | |study manager: Orin Shoemaker, study manager [facility] | | | | | | | | + + + + +---------+ + + | Performing | Address | City/State/[place] [facility] | Phone Number | | Organization | | | | + +---------+ + + | [facility] | | | | + +---------+ + + documented in this encounter Visit Diagnoses + + | Diagnosis | + + | Syncope and collapse - Primary | + + | Cardiac resynchronization therapy defibrillator (ESCROW MANAGER-D) in place | + + | Non-sustained ventricular tachycardia (HCC) Paroxysmal ventricular tachycardia | + + | Non-ischemic cardiomyopathy (HCC) Other primary cardiomyopathies | + + documented in this encounter"
--- OUTSIDE RECORDS SUMMARY | ~2020-02-19 | XMS | Encounter Summary ---
Demographics + + + | Address | [address] | | | [place] [address] | + + + | Home Phone | | + + + | Preferred Language | Unknown | + + + | Marital Status | | + + + | Judaism Affiliation | Unknown | + + + [...] Team Providers + +------+ + | Care Boatswains Mate Name | Role | Phone | + +------+ + | Carla Murphy | PCP | | | PA-C | | | + +------+ + Encounter Details +--------+ + + + + | Date | Type | Department | Care Team | Description | +--------+ + + + + | 01/11/ | Orders Only | [facility] | Gretchen Joy, | | | 2018 | | [place] | [address] | | | | | [address] | [place], [place] | | | | | [place], [place] | [address] | | | | | [address] | | | | | | [phone] | | | +--------+ + + + [...] 04/28/ | Office | Cardiology | Nav Foley Anabela, | | | 2019 | Visit | | [address] | | | | | | [place] [address] | | | | | | [phone] | | | | | | | [...]
--- OUTSIDE RECORDS SUMMARY | ~2020-02-19 | XMS | Encounter Summary ---
Demographics + + + | Address | [address] | | | [place] [address] | + + + | Home Phone [...] Team Providers + +------+ + | Care Outpatient Coordinator Name | Role | Phone | + [...] | PULMONARY [address] | RN | ([facility]) | | | | [place], | | | | | | [place] [address] | | | | | | [phone] | | | +--------+ + + + [...] DR | | | | | | [place] [address] | | | | | | [phone] | | | | | | | [...]
--- OUTSIDE RECORDS SUMMARY | ~2020-02-19 | XMS | Encounter Summary ---
Demographics + + + | Address | [address] | | | [place] [address] | + + + | Home Phone | | + + + | Preferred Language | Unknown | + + + | Marital Status | | + + + | Baptist Affiliation | Unknown | + + + | Race | Unknown | + + + | Ethnic Group | Unknown | + + + Author + + + | Author | [facility] | | | and [place] | + + + | Organization | [facility] | | [...] Team Providers + +------+ + | Care Keypunch Operators Supervisor Name | Role | Phone | [...] | | stress test | [address] [facility] | | | | | Procedures | [address] | Med [address] | | | | | [place] Nuclear | [place] | [address] | | | | | Stress Test | [place], [place] | [place], [place] | | | | | (Vasodilator | [address] | [address] | | | | | ) | Phone: | Phone: | | | | | | [phone] | [phone] | | | | | | Fax: | Fax: | | | | | | [phone] | [phone] | +--------+--------+ + + + + Encounter Details +--------+ + + + + | Date | Type | Department | Care Team | Description | +--------+ + + + + | 08/05/ | Orders Only | [facility] | Mary Tipton ANP | Abnormal stress test | | 2019 | | CARDIOLOGY [place] | [address] | (Primary Dx) | | | | [address] | [place], [place] | | | | | [place], [place] | [address] | | | | | [address] | | | | | | [phone] | | | +--------+ + + + [...] DR | | | | | | [place] [address] | | | | | | [phone] | | | | | | | [...]
--- OUTSIDE RECORDS SUMMARY | ~2020-02-19 | XMS | Encounter Summary ---
Demographics + + + | Address | [address] | | | [place] [address] | + + + | Home Phone | | + + + | Preferred Language | Unknown | + + + | Marital Status | | + + + | Mandaen Affiliation | Unknown | + + + [...] Team Providers + +------+ + | Care Commis Chef Name | Role | Phone | + +------+ + | Carla Murphy | PCP | | | PA-C | | | + +------+ + Reason for Visit +---------+--------+ + | Reason | Onset | Comments | | | Date | | +---------+--------+ + | Results | 11/07/ | Sniff test | | | 2015 | | +---------+--------+ + Encounter Details +--------+ + + + + | Date | Type | Department | Care Team | Description | +--------+ + + + + | 11/07/ | Telephone | [facility] | Lyn, | Results (Sniff test) | | 2015 | | PULMONARY [address] | Sailaja Chiang MD | | | | | [place], | | | | | | [place] [address] | | | | | | [phone] | | | +--------+ + + + [...] encounter Miscellaneous Notes Telephone Encounter - Soila Rudd RN - 11/08/2015 12:57 PM PDTCalled Jared and advi sed per Dr Nicholson that the sniff test that he had performed at [facility] on 11/01/15 sam ws no diaphragm paralysis. Okay per patient. documented in this encounter Plan of Treatment +--------+ + + + + | Date | Type | Specialty | Care Team | Description | +--------+ + + + + | 04/28/ | Office | Cardiology | Nav Foley, | | | 2019 | Visit | | MD [address] | | | | | | [place] [address] | | | | | | [phone] | | | | | | | | +--------+ + + + + | 04/28/ | Procedure | Cardiology | | | | 2019 | visit | | | | +--------+ + + + + documented as of this encounter Visit Diagnoses Not on filedocumented in this encounter"
--- OUTSIDE RECORDS SUMMARY | ~2020-02-19 | XMS | Encounter Summary ---
Demographics + + + | Address | [address] | | | [place] [address] | + + + | Home Phone [...] Team Providers + +------+ + | Care Donor Recruitment Manager Name | Role | Phone | [...] Provider Unknown | | | | | [place], [place] | | | | | | [address] | (Fax) | | | | | [...] DR | | | | | | [place] [address] | | | | | | [phone] | | | | | | | [...]
--- OUTSIDE RECORDS SUMMARY | ~2020-02-19 | XMS | Encounter Summary ---
Demographics + + + | Address | [address] | | | [place] [address] | + + + | Home Phone | | + + + | Preferred Language | Unknown | + + + | Marital Status | | + + + | Gnosticism Affiliation | Unknown | + + + | Race | Unknown | + + + | Ethnic Group | Unknown | + + + Author + + + | Author | [facility] | | | and [place] | + + + | Organization | [facility] | | | [...] Team Providers + +------+ + | Care Special Programs Director Name | Role | Phone | + +------+ + | Carla Murphy | PCP | | | PA-C | | | + +------+ + Reason for Visit +---------+--------+ + | Reason | Onset | Comments | | | Date | | +---------+--------+ + | Results | 11/22/ | nocturnal oximetry | | | 2015 | | +---------+--------+ + Encounter Details +--------+ + + + + | Date | Type | Department | Care Team | Description | +--------+ + + + + | 11/22/ | Telephone | [facility] [place] | [place], | Results (nocturnal | | 2015 | | PULMONARY [address] | Sailaja Chiang MD | oximetry) | | | | [place], | | | | | | [place] [address] | | | | | | [phone] | | | +--------+ + + + [...] Telephone Encounter - Soila Rudd, KEEGAN - 11/23/2015 1:33 PM PDTErnest called back. Ad vised that Dr Nicholson is recommending that he increase his nocturnal O2 to 3.5 l/m as his O2 sat was below 88% for 20.9 minutes while on O2 at 3 l/m. Okay per patient. Order sent to [facility] umented in this encounter Plan of Treatment +--------+ + + + + | Date | Type | Specialty | Care Team | Description | +--------+ + + + + | 04/28/ | Office | Cardiology | Nav Foley, | | 2019 | Visit | | MD [address] | | | | | | [place] [address] | | | | | | [phone] | | | | | | | [...]
--- OUTSIDE RECORDS SUMMARY | ~2020-02-19 | XMS | Encounter Summary ---
Demographics + + + | Address | [address] | | | [place] [address] | + + + | Home Phone | | + + + | Preferred Language | Unknown | + + + | Marital Status | | + + + | Religion Affiliation | Unknown | + + + | Race | Unknown | + + + | Ethnic Group | Unknown | + + + Author + + + | Author | [facility] | | | and [place] | + + + | Organization | [facility] | | | and [...] Team Providers + +------+ + | Care Psychologist Social Name | Role | Phone | + +------+ + PCP | Unavailable | + +------+ + Encounter Details +--------+ + + + + | Date | Type | Department | Care Team | Description | +--------+ + + + + | 09/16/ | Hospital | [facility] | Conversion | Pain | | 2015 | Encounter | CONVERSION [address] | Transaction, | | | | | [address] | Provider Unknown | | | | | [place], [place] | [phone] | | | | | [address] | | | | | | [phone] | | | +--------+ + + + [...] | | | | | | [facility] [place] [address] | | | | | | [phone] | | | | | | | [...] + | David Mckeon Sameera - 04/03/2019 11:51 PM PDT This is a non-reportable procedure | | without a radiologist report and isused for image storage only | + + documented in this encounter Visit Diagnoses + + | Diagnosis | + + | Pain Generalized pain | + + documented in this encounter"
--- OUTSIDE RECORDS SUMMARY | ~2020-02-19 | XMS | Encounter Summary ---
Demographics + + + | Address | [address] | | | [place] [address] | + + + | Home Phone [...] Team Providers + +------+ + | Care Machines Technician Name | Role | Phone | [...] | | CONVERSION [address] | [address] | | | | | [address] | [address] [place], [place] | | | | | [place], [place] | [address] | | | | | [address] | | | | | | [phone] | | | +--------+ + + + [...] | [facility] [place] [address] | | | | | | [phone] | | | | | | | [...] PV maxP.92 mmHg PV Vmax: 0.99 m/s Pipeline Operator: | | | Authenticated by: LIZBET LYNN MD Report Date/Time: -- | | | [id number] | | + + + + + | Procedure Note | + + | Mike, David Conversion - 04/10/2019 3:23 PM PDT Patient [...] cmLVPWd: 1.13 cmLVOT Area: | | 5.09 [id number] Diam: 2.54 cm%FS: 1.72 %EF(Teich): 3.94 %ESV(Teich): [...] (A-L): 45.03 | | ml/m2LAAs A2C: 31.66 [id number] A-L A2C: 147.72 mlLALs A2C: 5.75 cmLAAs A4C: 21.81 | | wa4SLUPL A-L A4C: 68.38 mlLALs A4C: 5.90 cmRAAs: 25.43 [id number] A-L: 100.41 | | mlRAESV MOD: 92.04 mlRALs: 5.46 cmAo Diam: 3.82 cmLA Diam: 4.65 cmLA/Ao: | | 1.21TAPSE: 2.41 cmAV maxP.90 mmHgAV meanP.40 mmHgAV Vmax: 1.21 m/Fabricio | | Vmean: 0.87 m/Fabricio VTI: 23.83 cmAVA Vmax: 3.69 cm2AVA (VTI): 3.60 lx1HOYQ Vmax: | | 0.00 cm2/m2AVAI (VTI): 0.00 cm2/m2LVOT maxP.10 mmHgLVOT meanP.59 mmHgLVSI | | Dopp: 37.97 ml/m2LVSV Dopp: 85.81 mlLVOT Vmax: 0.88 m/sLVOT Vmean: 0.59 m/sLVOT | | VTI: 16.83 cmMV A Frank: 0.65 m/sMV DecT: 257.92 msMV E Frank: 0.47 m/sMV E/A | | Ratio: 0.73MV PHT: 74.79 msMVA By PHT: 2.94 ae9Vbjiml e': 0.04 m/sSeptal E/e': | | 11.67Lateral e': 0.04 m/sLateral E/e': 10.11PV maxP.92 mmHgPV Vmax: 0.99 | | m/s Pipeline Operator:Authenticated by: Devan LEE Date/Time: -- | | [id number]:34 IMPRESSION: 1. Overall left ventricular systolic function [...] |PV Vmax: 0.99 m/s | | | |Pipeline Operator: | |Authenticated by: LIZBET LYNN MD | |Report Date/Time: [id number] | | | |IMPRESSION: | |1. Overall [...]
--- OUTSIDE RECORDS SUMMARY | ~2020-02-19 | XMS | Encounter Summary ---
Demographics + + + | Address | [address] | | | [place] [address] | + + + | Home Phone [...] Team Providers + +------+ + | Care Radiation Therapist Name | Role | Phone | + [...] + + | [facility]/13/ | [facility] | [place], | Dyspnea on exertion; | | 2015 | Visit | PULMONARY [address] | Sailaja Chiang MD | Panlobular | | | | [place], | | emphysema (HCC); | | | | [place] [address] | | Elevated left | | | | [phone] | | diaphragm; Sleep | | | [...] He did have his pacemaker adjusted at [facility], so that when he exerts himself, his hea rt rate increases. He did notice a difference the first day this was done. Per notes "Attem pted CANDY SPREADER optimization today; however, any time LV offset was changed, patient became dizzy a nd felt near-syncopal. BP throughout was stable. Ultimately, reverted back to LV offset -40, as this was the only setting he felt well. Even AdaptiveCRT made him profoundly symptomatic . Unfortunately, given these symptoms, patient did not tolerate CANDY SPREADER optimization. I did thornton ge him from DDD to DDDR, even though HR histograms showed good distribution of HRs, in hopes that this may give him improved activity tolerance." He is currently on a regimen of Spiriva one capsule inhaled daily. He notes he has run [employer] ss a couple of these that are empty. He contacted the material control associate, and he did get 10 capsul es [...] [facility] is [facility]. He reports good compliance. He remains [...] Diagnosis Date COPD (chronic obstructive pulmonary disease) ([facility]) Allergic rhinitis seeing Dr. Hedrick 10/2015 MOISÉS (obstructive sleep apnea) not formally diagnosed Anxiety AAA (abdominal aortic aneurysm) ([facility]) 2014 Non-ischemic cardiomyopathy ([facility]) EF 35-40%, class 2-3 symptoms, s/p AICD Lipoma Hypothyroidism Inguinal hernia 1980 now recurrent Appendicitis 1957 Hard of hearing Past Surgical History Past Surgical History Procedure Laterality Date Appendectomy 1957 Inguinal hernia repair Right 1980 Lipoma resection 1994 x2 Inflamed hair folicle 1997 Abdominal aortic aneurysm repair, endovascular 2014 Kadle, stent x 3 Cardiac defibrillator placement 2009 battery replaced 2015 Cardiac catherization 11/05/2008 left heart with LV gram showing no significant coronary disease, and an EF of 15-20% Social History: History Social History Marital Status: Spouse Name: N/A Number of Children: N/A Years of Education: N/A 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 Has pets at home: Cat Has ever owned birds: Yes an owl back in the s. Other animal exposures: Rabbits, lots of cats and dogs. Hobbies: Going to the [employer]. Allergies: Allergies Allergen Reactions Codeine Anaphylaxis Meperidine [...] made to ensure accuracy; however, inadvertent computerized expediter service order errors may be pre sent. Electronically signed [...] DR | | | | | | [place] [address] | | | | | | [phone] | | | | | | | [...]
--- OUTSIDE RECORDS SUMMARY | ~2020-02-19 | XMS | Encounter Summary ---
Demographics + + + | Address | [address] | | | [place] [address] | + + + | Home Phone [...] Team Providers + +------+ + | Care Industrial Twisting Machine Operator Name | Role | Phone | + +------+ + | Carla Murphy | PCP | | | PA-C | | | + +------+ + Encounter Details +--------+ + + + + | Date | Type | Department | Care Team | Description | +--------+ + + + + | 11/01/ | Orders Only | [facility] | Conversion | | | 2016 | | CARDIOLOGY [place] | Transaction, | | | | | [address] | Provider Unknown | | | | | [place], [place] | [phone] | | | | | [address] | | | | | | [phone] | | | +--------+ + + + [...] DR | | | | | | [place] [address] | | | | | | [phone] | | | | | | | [...]
--- OUTSIDE RECORDS SUMMARY | ~2020-02-19 | XMS | Encounter Summary ---
Demographics + + + | Address | [address] | | | [place] [address] | + + + | Home Phone | | + + + | Preferred Language | Unknown | + + + | Marital Status | | + + + | Anabaptism Affiliation | Unknown | + + + | Race | Unknown | + + + | Ethnic Group | Unknown | + + + Author + + + | Author | [facility] | | | and [place] | + + + | Organization | [facility] | | | [...] Team Providers + +------+ + | Care Wool And Pelt Grader Name | Role | Phone | + [...] | pulmonary disease, | | | | [place], | | unspecified COPD | | | | [place] [address] | | type (HCC) (Primary | | | | [phone] | | Dx) | +--------+ + + [...] DR | | | | | | [place] [address] | | | | | | [phone] | | | | | | | | +--------+ + + + + | 04/28/ | Procedure | Cardiology | | | | 2019 | visit | | | | +--------+ + + + + documented as of this encounter Results PFT PULMONARY FUNCTION TESTING ORDERS Full PFT ([place] w/BD, lung volumes, diffusion)?: Yes (10/24/2015 3:47 [...] | | Sailaja Nicholson MD 10/24/2015 15:44 [facility] | | | [facility] CC: Carla Juarez PA-C | | + + + documented in this encounter Visit Diagnoses + + | Diagnosis | + + | Chronic obstructive pulmonary disease, unspecified COPD type (HCC) - Primary | + + documented in this encounter"
--- OUTSIDE RECORDS SUMMARY | ~2020-02-19 | XMS | Encounter Summary ---
Demographics + + + | Address | [address] | | | [place] [address] | + + + | Home Phone [...] Providers + +------+ + | Care Cutter Aluminum Sheet Name | Role | Phone | + [...] | | | | | Elevated | Offviraj, | [facility] | | | | | diaphragm | Sailaja B, | HOSPITAL | | | | | Procedures | MD [address] | | | | | [place] Sniff | [address] | AVE | | | | | Test | PATRICK NGUYEN, | [place] | | | | | | [place] [address] | [address] | | | | | | | Phone: | | | | | | | [phone] | | | | | | | Fax: | | | | | | | [phone] | +--------+--------+ + + + + Reason [...] | | | Chronic | Carla | Sailaja Chiang, | | | | | obstructive | Ondina, | [address] | | | | | pulmonary | PA-C [address] | [address] | | | | | disease, | [address] | [place], | | | | | unspecified | Ave | [place] [address] | | | | | (HCC) | [place], | | | | | | Procedures | [place] | | | | | | [place] | [address] | | | | | | CONSULT | Phone: | | | | | | | [phone] | | | | | | | Fax: | | | | | | | [phone] | | +--------+--------+ + + + + Encounter Details +--------+---------+ + + + | Date | Type | Department | Care Team | Description | +--------+---------+ + + + | 10/18/ | Office | [facility] [place] | Offenstein, | Dyspnea on exertion; | | 2015 | Visit | PULMONARY [address] | Sailaja Chiang MD | Elevated left | | | | [address] [place], | | diaphragm; | | | | [place] [address] | | Panlobular emphysema | | | | [phone] | | ([facility]); Non-ischemic | | | | | | cardiomyopathy | | | | | | ([facility]); OMISÉS | | | | | | (obstructive [...] see if it works. Schedule this at [facility]. Do an overnight oxygen test through [facility]. Call the [employer] before yo u pick it up to make sure they have a box available. You will cigar packer and picker a box at the [employer]. Do the test on room air. Wear [...] their breathing 7-8 years ago. He kinsey mbers going to [facility] ER years ago for pneumonia, a [...] mentioned something about being sen t to [facility] at the time). In the midst here, [...] at another follow up). He saw the [employer] from cardiology in March 2015, and was noted to require a generator prescott e for his pacemaker defibrillator. This was performed in April. At his last note, in fol low up after his generator change, Dr. Foley mentions that he feels that his shortness of carol ath is related to his COPD. His most recent EF is 35-40% on echo in April. He was then seen in the ER at [facility] a total of 4 times. In [...] far, sometimes 2-3 blocks. He has a s tair climber at home, but has not [...] Diagnosis Date COPD (chronic obstructive pulmonary disease) ([facility]) Allergic rhinitis seeing Dr. 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 Has pets at home: Cat Has ever owned birds: Yes an owl back in the s. Other animal exposures: Rabbits, lots of cats and dogs. Hobbies: Going to the [employer]. Allergies: Allergies Allergen Reactions Codeine Anaphylaxis Meperidine [...] 05, 2008 and results were reviewed in [facility] today. CORONARY ANGIOGRAPHY 1. The left main [...] made to ensure accuracy; however, inadvertent computerized chief of police errors may be pre sent. Electronically signed [...] DR | | | | | | [place] [address] | | | | | | [phone] | | | | | | | [...]
--- OUTSIDE RECORDS SUMMARY | ~2020-02-19 | XMS | Encounter Summary ---
Demographics + + + | Address | [address] | | | [place] [address] | + + + | Home Phone | | + + + | Preferred Language | Unknown | + + + | Marital Status | | + + + | Catholic Affiliation | Unknown | + + + | Race | Unknown | + + + | Ethnic Group | Unknown | + + + Author + + + | Author | [facility] | | | and [place] | + + + | Organization | [facility] | | | [...] Team Providers + +------+ + | Care Framing Machine Tender Name | Role | Phone | [...] [address] | RN | ([facility]) | | | | [place], | | | | | | [place] [address] | | | | | | [phone] | | | +--------+ + + + [...] DR | | | | | | [place] [address] | | | | | | [phone] | | | | | | | [...]
--- OUTSIDE RECORDS SUMMARY | ~2020-02-19 | XMS | Encounter Summary ---
Demographics + + + | Address | [address] | | | [place] [address] | + + + | Home Phone [...] Team Providers + +------+ + | Care Rug Cleaner Helper Name | Role | Phone | [...] + + | 08/25/ | Telephone | [facility] | Mary Tipton ANP | Appointment | | 2019 | | CARDIOLOGY [place] | [address] | | | | | [address] | [place], [place] | | | | | [place], [place] | [address] | | | | | [address] | | | | | | [phone] | | | +--------+ + + + [...] Miscellaneous Notes Telephone Encounter - Ebony Stein, Clip On Sunglasses Inspector - 08/25/2019 2:53 PM PSTPatient called in [...] DR | | | | | | [place] [address] | | | | | | [phone] | | | | | | | | +--------+ + + + + | 04/28/ | Procedure | Cardiology | | | | 2019 | visit | | | | +--------+ + + + + documented as of this encounter Visit Diagnoses Not on filedocumented in this encounter"
--- OUTSIDE RECORDS SUMMARY | ~2020-02-19 | XMS | Encounter Summary ---
Demographics + + + | Address | [address] | | | [place] [address] | + + + | Home Phone [...] Team Providers + +------+ + | Care Certified Prosthetist Vice President Name | Role | Phone | + [...] + + | 08/05/ | Telephone | [facility] | Mary Tipton, ANP | Spoke With Patient | 2018 | | CARDIOLOGY [place] | [address] | | | | | [address] | [place], [place] | | | | | [place], [place] | [address] | | | | | [address] | | | | | | [phone] | | | +--------+ + + + [...] [address] | | | | | | [facility] [place] [address] | | | | | | [phone] | | | | | | | | +--------+ + + + + | 04/28/ | Procedure | Cardiology | | | | 2019 | visit | | | | +--------+ + + + + documented as of this encounter Visit Diagnoses Not on filedocumented in this encounter"
--- OUTSIDE RECORDS SUMMARY | ~2020-02-19 | XMS | Encounter Summary ---
Demographics + + + | Address | [address] | | | [place] [address] | + + + | Home Phone [...] Team Providers + +------+ + | Care Manufacturing Technology Analyst Name | Role | Phone | + [...] | | | 2015 | Coordinatio | [facility] | Sailaja Chiang MD | | | | n | INFORMATION | | | | | | MANAGEMENT [address] | | | | | | [address] [place], [place] | | | | | | [address] | | | | | | [phone] | | | +--------+ + + + [...] 04/28/ | Office | Cardiology | Nav Folye, | | | 2019 | Visit | | MD [address] | | | | | | [facility] [place] [place] [address] | | | | | | [phone] | | | | | | | | +--------+ + + + + | 04/28/ | Procedure | Cardiology | | | | 2019 | visit | | | | +--------+ + + + + documented as of this encounter Visit Diagnoses Not on filedocumented in this encounter"
--- OUTSIDE RECORDS SUMMARY | ~2020-02-19 | XMS | Encounter Summary ---
Demographics + + + | Address | [address] | | | [place] [address] | + + + | Home Phone [...] [facility] | | | and [...] Team Providers + +------+ + | Care Pump And Blower Operator Name | Role | Phone | [...] | [address] | [place], [place] | | | | | [place], [place] | [address] | | | | | [address] | | | | | | [phone] | | | +--------+ + + + [...] DR | | | | | | [place] [address] | | | | | | [phone] | | | | | | | [...] 9.77 RAP: 3 mmHg | | | Dobie Man: NIGEL Authenticated by: Gretchen Joy Report | | | Date/Time: 09-26-2017 7:40:19 | | + + + + ---+ | Procedure Note | + ---+ | Mike, Rad Conversion - 04/10/2019 3:23 PM PDT Patient Name: Silvia VELÁZQUEZ | | of : 1945 Performing Physician: Gretchen | | Alsamara INDICATIONS------ | | -----cardiomyopathy, aicd, beulah CONCLUSIONS [...] mlLAESV Index (A-L): 37.87 ml/m2LAAs A2C: 22.69 [id number] | | A-L A2C: 93.63 mlLALs A2C: 4.66 cmLAAs A4C: 19.88 [id number] A-L A4C: 77.98 mlLALs | | A4C: 4.30 cmRAAd: 23.19 [id number] A-L: 97.65 mlRAEDV MOD: 89.83 mlRALd: 4.67 | | cmTAPSE: 2.19 cmAV maxP.27 mmHgAV meanP.41 mmHgAV Vmax: 1.03 m/Fabricio | | Vmean: 0.73 m/Fabricio VTI: 19.23 cmAVA Vmax: 4.21 cm2AVA (VTI): 4.42 ks9POGH Vmax: | | 0.00 cm2/m2AVAI (VTI): 0.00 cm2/m2LVOT maxP.13 mmHgLVOT meanP.63 mmHgLVSI | | Dopp: 36.18 ml/m2LVSV Dopp: 85.04 mlLVOT Vmax: 0.88 m/sLVOT Vmean: 0.61 m/sLVOT | | VTI: 17.26 cmMV E Frank: 0.83 m/sMV DecT: 110.72 msSeptal e': 0.09 m/sSeptal | | E/e': 8.70Lateral e': 0.08 m/sLateral E/e': 9.77RAP: 3 mmHg Dobie Man: | | DBSAuthenticated by: Gretchen Salgado Date/Time: 09-26-2017 7:40:19 IMPRESSION: 1. | | [...] | |RAP: 3 mmHg | | | |Dobie Man: NIGEL | |Authenticated by: Gretchen Joy | [...]
--- OUTSIDE RECORDS SUMMARY | ~2020-02-19 | XMS | Encounter Summary ---
Demographics + + + | Address | [address] | | | [place] [address] | + + + | Home Phone [...] + + + | Author | [facility] | | | and [place] | + + + | Organization | [facility] | | | and [...] Providers + +------+ + | Care Manager Advanced Name | Role | Phone | + +------+ + | Carla Murphy | PCP | | | PA-C | | | + +------+ + Encounter Details +--------+ + + + + | Date | Type | Department | Care Team | Description | +--------+ + + + + | 09/16/ | Telephone | [facility] | Kimmie Wills | | | 2020 | | CENTER CV INTRA OP | MD Saravan[address] | | | | | [address] | [place] [place], [place] | | | | | [place], [place] | [address] | | | | | [address] | | | | | | [phone] | | | +--------+ + + + [...] DR | | | | | | [place] [address] | | | | | | [phone] | | | | | | | | +--------+ + + + + | 04/28/ | Procedure | Cardiology | | | | 2019 | visit | | | | +--------+ + + + + documented as of this encounter Visit Diagnoses Not on filedocumented in this encounter"
--- OUTSIDE RECORDS SUMMARY | ~2020-02-19 | XMS | Encounter Summary ---
Demographics + + + | Address | [address] | | | [place] [address] | + + + | Home Phone | | + + + | Preferred Language | Unknown | + + + | Marital Status | | + + + | Mandaen Affiliation | Unknown | + + + | Race | Unknown | + + + | Ethnic Group | Unknown | + + + Author + + + | Author | [facility] | | | and [place] | + + + | Organization | [facility] | | | and [...] Team Providers + +------+ + | Care Preanalytics Team Lead Name | Role | Phone | + +------+ + | Carla Murphy | PCP | | | PA-C | | | + +------+ + Reason for Visit + +--------+ + | Reason | Onset | Comments | | | Date | | + +--------+ + | Patient Education | 07/31/ | | | | 2019 | | + +--------+ + Encounter Details +--------+ + + + + | Date | Type | Department | Care Team | Description | +--------+ + + + + | 07/31/ | Telephone | [facility] | Mary Tipton ANP | Patient Education | | 2019 | | CARDIOLOGY [place] | [address] | | | | | [address] | [place], [place] | | | | | [place], [place] | [address] | | | | | [address] | | | | | | [phone] | | | +--------+ + + + [...] Telephone Encounter - Mary Tipton ANP - 07/31/2019 4:20 PM PSTCalled patient with PLAN, left VM - Stay On Amiodarone taper - Stay On Metoprolol tartate 6.25mg BID - Arrange Stress test - Return to EP in 1 month ERNIE Deal documented in this enco unter Plan of Treatment +--------+ + + + + | Date | Type | Specialty | Care Team | Description | +--------+ + + + + | 04/28/ | Office | Cardiology | Nav Foley, | | | 2020 | Visit | | MD [address] | | | | | | [place] [address] | | | | | | [phone] | | | | | | | | +--------+ + + + + | 04/28/ | Procedure | Cardiology | | | | 2020 | visit | | | | +--------+ + + + + documented as of this encounter Visit Diagnoses Not on filedocumented in this encounter"
--- OUTSIDE RECORDS SUMMARY | ~2020-02-19 | XMS | Encounter Summary ---
Demographics + + + | Address | [address] | | | [place] [address] | + + + | Home Phone [...] Team Providers + +------+ + | Care Sheet Metal Duct Worker Supervisor Name | Role | Phone | [...] + + | 08/07/ | Telephone | [facility] | Mary Tipton ANP | Patient Concerns | | 2018 | | CARDIOLOGY [place] | [address] | | | | | [address] | [place], [place] | | | | | [place], [place] | [address] | | | | | [address] | | | | | | [phone] | | | +--------+ + + + [...] DR | | | | | | [place] [address] | | | | | | [phone] | | | | | | | | +--------+ + + + + | 04/28/ | Procedure | Cardiology | | | | 2020 | visit | | | | +--------+ + + + + documented as of this encounter Visit Diagnoses Not on filedocumented in this encounter"
--- OUTSIDE RECORDS SUMMARY | ~2020-02-19 | XMS | Encounter Summary ---
Demographics + + + | Address | [address] | | | [place] [address] | + + + | Home Phone | | + + + | Preferred Language | Unknown | + + + | Marital Status | | + + + | Methodist Affiliation | Unknown | + + + [...] Team Providers + +------+ + | Care Chaser Apprentice Name | Role | Phone | [...] | | | | | | [place] [address] | | | | | | [phone] | | | +--------+ + + + [...] DR | | | | | | [place] [address] | | | | | | [phone] | | | | | | | [...]
--- OUTSIDE RECORDS SUMMARY | ~2020-02-19 | XMS | Encounter Summary ---
Demographics + + + | Address | [address] | | | [place] [address] | + + + | Home Phone [...] + | Author | [facility] | | | and [place] | + + + | Organization | [facility] | | | and [...] Team Providers + +------+ + | Care Economic Adviser Name | Role | Phone | [...] + + | 07/02/ | Telephone | [facility] | Constantin Chavez, | Cardiac Problem | | 2018 | | CARDIOLOGY [place] | [address] | | | | | [address] | [facility], | | | | | [place], [place] | [place] [address] | | | | | [address] | [phone] | | | | | [phone] | | | +--------+ + + + [...] + + + + | 09/09/ | Office | Cardiology | Nav Foley, | | | 2019 | Visit | | MD [address] | | | | | | [place] [address] | | | | | | [phone] | | | | | | | | +--------+ + + + + | 04/28/ | Procedure | Cardiology | | | | 2019 | visit | | | | +--------+ + + + + documented as of this encounter Visit Diagnoses Not on filedocumented in this encounter
--- OUTSIDE RECORDS SUMMARY | ~2020-02-19 | XMS | Encounter Summary ---
Demographics + + + | Address | [address] | | | [place] [address] | + + + | Home Phone | | + + + | Preferred Language | Unknown | + + + | Marital Status | | + + + | Taoist Affiliation | Unknown | + + + | Race | Unknown | + + + | Ethnic Group | Unknown | + + + Author + + + | Author | [facility] | | | and [place] | + + + | Organization | [facility] | | [...] Team Providers + +------+ + | Care Budget Assistant Name | Role | Phone | + +------+ + PCP | Unavailable | + +------+ + Encounter Details +--------+ + + + + | Date | Type | Department | Care Team | Description | +--------+ + + + + | 01/27/ | Hospital | [facility] | Raiza Cote, | Cardiac pacemaker in | | 2009 - | Encounter | MEDICAL CENTER | [address] | situ | | | | CLINICAL DECISION | [address] [place], [place] | | | 01/28/ | | [address] | [address] | | | 2009 | | [place], [place] | [phone] | | | | | [address] | | | | | | [phone] | | | +--------+ + + + [...] DR | | | | | | [place] [address] | | | | | | [phone] | | | | | | | [...] Performed At | + + + | [facility] [address] Ph: | | | Patient Name: FRANCI VELÁZQUEZ Date of : | | | 1945 Medical Record: [id number] Account: [id number] | | | Exam Date/Time: 01/27/2010 17:00 Ordering | | | Physician: RAIZA COTE Order Detail: [id number] Exam Description: | | | XR CHEST [...] - 04/13/2019 7:29 PM PDT | | [facility] | | [facility] [address] | | | | | | Patient Name: FRANCI VELÁZQUEZ | | Date of : 1945 | | Medical Record: [id number] | | Account: [id number] | | | | | | Exam [...] Performed At | + + + | [facility] [address] Ph: | | | Patient Name: FRANCI VELÁZQUEZ Date of : | | | 1945 Medical Record: [id number] Account: [id number] | | | Exam Date/Time: 01/27/2010 14:54 [...] - 04/13/2019 7:29 PM PDT | | [facility] | | [facility] [address] | | | | | | Patient Name: FRANCI VELÁZQUEZ | | Date of : 1945 | | Medical Record: [id number] | | Account: [id number] | | | | | | Exam [...] Performed At | + + + | [id number] [facility] | | | [facility] [address] | | | , | | | CARDIOLOGY Patient Name: FRANCI VELÁZQUEZ Date of : | | | 1945 Medical Record: [id number] Account: [id number] | | | OPS/SANDY [id number]/ Exam Date/Time: 01/27/2010 | | | 01:00 [...] | | DESCRIPTION OF PROCEDURE Implantation of LUBRICATION WORKER/ICD was recommended. | | | Informed consent [...] cm, serial number | | | is [id number]. We found a suitable position in the [...] Medtronic 4195, serial number | | | [id number]. The right atrial lead is a Medtronic 5076, length | | | is 52 cm, serial number is [id number]. We found a suitable position | | [...] | | | delivery system using the tomoguidestronic universal slitter. | | | Fluoroscopically, lead position remained stable. In SETS[place]NA projection, | | | we adjusted the amount of redundancy on the lead and sutured it in | | | place. We then removed wires and stylets. We irrigated the pocket. | | | We then took the device which is a [employer] [id number], serial number | | | [id number]. We connected all 3 leads to the [...] 09:43 A P P | | | EDMUND/mehul/[id number]/cg | | + + + + + | Procedure Note | + + | David Mckeon - 04/13/2019 7:29 PM PDT | | [id number] | | [facility] | | [facility] [address] | | , | | CARDIOLOGY | | | | Patient Name: FRANCI VELÁZQUEZ | | Date of : 1945 | | Medical Record: [id number] | | Account: [id number] | | OPS/CDU [id number]/ | | | | | | Exam [...] DESCRIPTION OF PROCEDURE | | Implantation of LUBRICATION WORKER/ICD was recommended. Informed consent was obtained. | [...] 65 cm, serial | | number is [id number]. We found a suitable position in the [...] lead is a Medtronic 4195, serial number [id number]. | | | | | | The right atrial lead is a Medtronic 5076, length is 52 cm, serial | | number is [id number]. We found a suitable position in the [...] removed the LV delivery system using the [employer] universal | | slitter. Fluoroscopically, lead position remained stable. In [place] | | projection, we adjusted the amount of redundancy on the lead and sutured | | it in place. | | | | We then removed wires and stylets. We irrigated the pocket. We then took | | the device which is a [employer] [id number], serial number [id number]. We | | connected all 3 leads [...] | P | | P | | EDMUND/mehul/[id number]/cg | + + documented in this encounter Visit Diagnoses + + | Diagnosis | + + | Cardiac pacemaker in situ | + + documented in this encounter"
--- OUTSIDE RECORDS SUMMARY | ~2020-02-19 | XMS | Encounter Summary ---
Demographics + + + | Address | [address] | | | [place] [address] | + + + | Home Phone [...] Providers + +------+ + | Care Care Mgr Name | Role | Phone | + [...] | | stress test | [address] | | | | | Procedures | [address] | [address] | | | | | [place] Nuclear | [place] | [address] | | | | | Stress Test | [place], [place] | [place], [place] | | | | | (Vasodilator | [address] | [address] | | | | | ) | Phone: | Phone: | | | | | | [phone] | [phone] | | | | | | Fax: | Fax: | | | | | | [phone] | [phone] | +--------+--------+ + + + + Reason for Visit Diagnostic/Screening (Routine) +--------+--------+ + + + + | Status | Reason | Specialty | Diagnoses / | Referred By | Referred To | | | | | Procedures | Contact | Contact | +--------+--------+ + + + + | Closed | | Radiology | Diagnoses | Mary Tipton | Rufsu | | | | | Abnormal | C ANP | Cardiology | | | | | stress test | [address] | | | | | Procedures | [address] | [address] | | | | | [place] Nuclear | [place] | [address] | | | | | Stress Test | [place], [place] | [place], [place] | | | | | (Vasodilator | [address] | [address] | | | | | ) | Phone: | Phone: | | | | | | [phone] | [phone] | | | | | | Fax: | Fax: | | | | | | [phone] | [phone] | +--------+--------+ + + + + Encounter Details +--------+ + + + + | Date | Type | Department | Care Team | Description | +--------+ + + + + | 08/26/ | Hospital | [facility] | Bird, Mary C, ANP | Abnormal stress test | | 2020 | Encounter | CARDIOLOGY [place] | [address] | | | | | [address] | [place], [place] | | | | | [address] | [address] | | | | | [place], [place] | | | | | | [address] | | | | | | [phone] | | | +--------+ + + + [...] DR | | | | | | [place] [address] | | | | | | [phone] | | | | | | | [...]
--- OUTSIDE RECORDS SUMMARY | ~2020-02-19 | XMS | Encounter Summary ---
Demographics + + + | Address | [address] | | | [place] [address] | + + + | Home Phone | | + + + | Preferred Language | Unknown | + + + | Marital Status | | + + + | Sabianist Affiliation | Unknown | + + + [...] Team Providers + +------+ + | Care Spiral Runner Name | Role | Phone | + [...] Provider Unknown | | | | | [place], [place] | | | | | | [address] | (Fax) | | | | | [...] DR | | | | | | [place] [address] | | | | | | [phone] | | | | | | | [...]
--- OUTSIDE RECORDS SUMMARY | ~2020-02-19 | XMS | Encounter Summary ---
Demographics + + + | Address | [address] | | | [place] [address] | + + + | Home Phone | | + + + | Preferred Language | Unknown | + + + | Marital Status | | + + + | Anglican Affiliation | Unknown | + + + | Race | Unknown | + + + | Ethnic Group | Unknown | + + + Author + + + | Author | [facility] | | | and [place] | + + + | Organization | [facility] | | | and [...] Team Providers + +------+ + | Care Copper Roller Handler Printing Name | Role | Phone | + +------+ + | Carla Murphy | PCP | | | PA-C | | | + +------+ + Reason for Visit +---------+--------+ + | Reason | Onset | Comments | | | Date | | +---------+--------+ + | Testing | 01/02/ | schedule testing | | | 2019 | | +---------+--------+ + Encounter Details +--------+ + + + + | Date | Type | Department | Care Team | Description | +--------+ + + + + | 08/21/ | Telephone | [facility] | Mary Tipton ANP | Testing (schedule | | 2019 | | [facility] | [address] | testing) | | | | [address] | [place], [place] | | | | | [place], [place] | [address] | | | | | [address] | | | | | | [phone] | | | +--------+ + + + [...] Notes Telephone Encounter - Elif Aj - 08/21/2019 8:54 AM PSTLeft msg for pt to call b k to schedule stress test. Elif Aj documented in this enc ounter Plan of Treatment +--------+ + + + + | Date | Type | Specialty | Care Team | Description | +--------+ + + + + | 04/28/ | Office | Cardiology | Nav Foley, | | | 2019 | Visit | | MD [address] | | | | | | [place] [address] | | | | | | [phone] | | | | | | | | +--------+ + + + + | 04/28/ | Procedure | Cardiology | | | | 2020 | visit | | | | +--------+ + + + + documented as of this encounter Visit Diagnoses Not on filedocumented in this encounter"
--- OUTSIDE RECORDS SUMMARY | ~2020-02-19 | XMS | Encounter Summary ---
Demographics + + + | Address | [address] | | | [place] [address] | + + + | Home Phone [...] + + | 09/23/ | Hospital | [facility] | Vincent Fields MD | AAA (abdominal | | 2015 - | Encounter | [facility] | [address] | aortic aneurysm) | | | | CARE FLOOR [address] | [place], [place] | ([facility]) | | 09/24/ | | [address] | [address] | | | 2015 | | [place], [place] | [phone] | | | | | [address] | | | | | | [phone] | | | +--------+ + + + [...] by MORRO Arboleda at 09/24/14918 Author: MORRO Arboelda Service: Vascular Surgery Author Type: Advanced Registered N ryleee Practitioner Filed: 09/24/14 1537 Date of Service: 09/24/14918 Status: Signed Petrol Tanker Driver: MORRO Arboleda (Advanced Registered Nurse Practitioner) [facility] Service: Vascular Surgery Discharge Summary Date [...] heart COPD (chronic obstructive pulmonary disease) Pacemaker [place] (hard of hearing) Past Surgical History Procedure [...] on file. Follow up: Eloy Diez MD [address] [place] [id number] Vincent Fields MD [address] [facility] [address] In 2 weeks post op appointment and [...] are the prescriptions that you need to pickling operator. You may get the following medications from [...] Date of Service: 09/24/14 1517 Status: Signed Petrol Tanker Driver: Mirna Donato RN (Registered Nurse) Pt and family received dc instruct verbal and written. They stated understanding. onver chetna Transaction, Provider Unknown - 09/24/2014 10:48 AM PST Therapy Progress Note by Waldemar Floyd PT at 09/24/14 1048 Author: Waldemar Floyd PT Service: (none) Author Type: Physical Therapist Filed: 09/24/14 1146 Date of Service: 09/24/14 1048 Status: Signed Petrol Tanker Driver: Waldemar Floyd PT (Physical Therapist) 09/24/14 1048 PT Last Visit PT Received On 09/24/14 Reason for Treatment Other (comment) (AAA repair) Requires PT Follow Up No Follow up PT Only? No PT Eval/Reassessment Date 09/24/14 Assistance Required 1 person Manager Global Needed No Home Environment Type of Home [...] was employed until recentl y at the [employer] in [place]. States that he has friends and neighbors that can assist if he would need it. Prior Function Level of Ray Independent with functional mobility;Independent with ADLs;Independe nt [...] Eval/Reassessment Date 09/24/14 Assistance Required 1 person Manager Global Needed No Other Comments Comments Chart reviewed, [...] Distance limited by? Therapist/staff discretion Pattern Decreased ardian;Antalgic Assistive Device Cane single point Stairs Assistance [...] 09/23/141913 Date of Service: 09/23/141908 Status: Signed Petrol Tanker Driver: Yoon Michele RN (Registered Nurse) Pt still [...] 09/23/141710 Date of Service: 09/23/141710 Status: Signed Petrol Tanker Driver: Louise Herrera RPH (Pharmacist) Clinical Pharmacy Note: [...] (none) Author Type: Registered Nurse Filed: 09/23/14 7451 Date of Service: 09/23/141699 Status: Signed Petrol Tanker Driver: Yoon Michele RN (Registered Nurse) Upon arrival [...] (none) Author Type: Registered Nurse Filed: 09/23/14 0428 Date of Service: 09/23/141699 Status: Signed Petrol Tanker Driver: Juana Hayes Pt transferred to Cardiac Unit and bedside report given to Sabra ALLISON. In PACU repeat ACT was completed by Silviculture Professor RN prior to transport:. Current result 110. [...] 09/23/14810 Date of Service: 09/23/14810 Status: Signed Petrol Tanker Driver: MORRO Arboleda (Advanced Registered Nurse Practitioner) [facility] Service: Vascular Surgery Pre-Operative History & Physical [...] heart COPD (chronic obstructive pulmonary disease) Pacemaker [place] (hard of hearing) Past Surgical History Procedure [...] 142 Date of Service: 09/23/141421 Status: Signed Petrol Tanker Driver: Vincent Fields MD (Physician) [facility] Service: Vascular Surgery Brief Op Note Pre-operative Diagnosis: 6.8 cm infrarenal abdominal aortic aneurysm Post-operative Diagnosis: Same Procedure(s): Ultrasound guided access of bilateral common femoral arteries Endovascular aneurysm repair using bifurcated graft with two docking limbs Percutaneous closure of bilateral common femoral arteries using Perclose device Surgeon: Vincent Fields MD Shrinking Machine Operator(s): MORRO Arboleda Anesthesia: General endotrachial anesthesia Estimated Blood Loss: Less Than 100 ml Other: IV Fluids: 1500 ml Contrast - 85 ml of isoview 250 Indications: See pre-operative history and physical. Findings: Large infrarenal abdominal aortic aneurysm. Aneurysm excluded using [id number] m m main body, [id number] mm ipsilateral extension, and [id number] mm contralateral limb. After repair, no endoleak [...] DR | | | | | | [place] [address] | | | | | | [phone] | | | | | | | [...] EXTERNAL | | | | performed at [facility], [address] | | LAB | | | | [address], | | | | | | [place] [address] | | | | + + + + + + | Red Blood | 4.36Comment: Testing | 4.20 - 5.70 | EXTERNAL | | | Cells | performed at [facility], [address] | M/uL | LAB | | | Counted | [address], | | | | | | [place] [address] | | | | + + + + + + | Hemoglobin | 13.4Comment: Testing | 13.2 - 17.0 | EXTERNAL | | | | performed at [facility], [address] | g/dL | LAB | | | | [address], | | | | | | [place] [address] | | | | + + + + + + | Hematocrit, | 39.7Comment: Testing | 39.0 - 50.0 % | EXTERNAL | | | POC | performed at [facility], [address] | | LAB | | | | [address], | | | | | | [place] [address] | | | | + + + + + + | MCV | 91.0Comment: Testing | 80.0 - 100.0 fl | EXTERNAL | | | | performed at [facility], [address] | | LAB | | | | [address], | | | | | | [place], [place] [address] | | | | + + + + + + | MCH | 30.8Comment: Testing | 27.0 - 34.0 pg | EXTERNAL | | | | performed at [facility], [address] | | LAB | | | | [address], | | | | | | [place] [address] | | | | + + + + + + | MCHC | 33.9Comment: Testing | 32.0 - 35.5 | EXTERNAL | | | | performed at [facility], [address] | g/dL | LAB | | | | [address], | | | | | | [place] [address] | | | | + + + + + + | RDW-CV | 44.6Comment: Testing | 37 - 53 fl | EXTERNAL | | | | performed at [facility], [address] | | LAB | | | | [address], | | | | | | [place] [address] | | | | + + + + + + | Platelet | 227Comment: Testing | 150 - 400 K/uL | EXTERNAL | | | Count | performed at [facility], [address] | | LAB | | | Plasma | [address], | | | | | | [place] [address] | | | | + + + + + + | MPV | 8.8Comment: Testing | fl | EXTERNAL | | | | performed at [facility], [address] | | LAB | | | | [address], | | | | | | [place] [address] | | | | + + + + + + | Differentia | MANUALComment: Testing | | EXTERNAL | | | l Type | performed at [facility], [address] | | LAB | | | | [address], | | | | | | [place] [address] | | | | + + + + + + | Segmented | 80Comment: Testing | % | EXTERNAL | | | Neutrophils | performed at [facility], [address] | | LAB | | | Manual | [address], | | | | | | [place] [address] | | | | + + + + + + | % Bands | 12Comment: Testing | % | EXTERNAL | | | | performed at [facility], [address] | | LAB | | | | [address], | | | | | | [place] [address] | | | | + + + + + + | Lymphocytes | 6Comment: Testing | % | EXTERNAL | | | Manual | performed at [facility], [address] | | LAB | | | | [address], | | | | | | [place] [address] | | | | + + + + + + | Monocytes | 2Comment: Testing | % | EXTERNAL | | | Manual | performed at [facility], [address] | | LAB | | | | [address], | | | | | | [place] [address] | | | | + + + + + + | Absolute | 18.9 (H)Comment: Testing | 1.9 - 7.4 K/uL | EXTERNAL | | | Neutrophils | performed at [facility], [address] | | LAB | | | | [address], | | | | | | [place] [address] | | | | + + + + + + | Bands | 2.8 (H)Comment: Testing | 0 - 0.2 K/uL | EXTERNAL | | | Manual | performed at [facility], [address] | | LAB | | | | [address], | | | | | | [place] [address] | | | | + + + + + + | Absolute | 1.4Comment: Testing | 1.0 - 3.9 K/uL | EXTERNAL | | | Lymphocytes | performed at [facility], [address] | | LAB | | | | [address], | | | | | | [place] [address] | | | | + + + + + + | Absolute | 0.5Comment: Testing | 0 - 0.8 K/uL | EXTERNAL | | | Monocytes | performed at [facility], [address] | | LAB | | | | [address], | | | | | | [place] [address] | | | | + + + + + + | RBC | RBC AND PLT MORPHOLOGY | | EXTERNAL | | | Morphology | APPEAR NORMALComment: | | LAB | | | | Testing performed at | | | | | | [facility], [address] | | | | | | [place] | | | | | | [address] | | | | + + + [...] | | | | | [place] [address] | | | | + + + + + + | K | 4.2Comment: Testing | 3.5 - 4.9 | EXTERNAL | | | | performed at [facility], [address] | mmol/L | LAB | | | | [address], | | | | | | [place] [address] | | | | + + + + + + | Cl | 101Comment: Testing | 99 - 109 mmol/L | EXTERNAL | | | | performed at [facility], [address] | | LAB | | | | [address], | | | | | | [place] [address] | | | | + + + + + + | CO2 | 28Comment: Testing | 23 - 32 mmol/L | EXTERNAL | | | | performed at [facility], [address] | | LAB | | | | [address], | | | | | | [place] [address] | | | | + + + + + + | Anion Gap | 8Comment: Testing | 5 - 20 mmol/L | EXTERNAL | | | | performed at [facility], [address] | | LAB | | | | [address], | | | | | | [place] [address] | | | | + + + + + + | Glucose, | 183 (H)Comment: Testing | 65 - 99 mg/dL | EXTERNAL | | | Fasting | performed at [facility], [address] | | LAB | | | | [address], | | | | | | [place] [address] | | | | + + + + + + | BUN | 12Comment: Testing | 8 - 25 mg/dL | EXTERNAL | | | | performed at [facility], [address] | | LAB | | | | [address], | | | | | | [place] [address] | | | | + + + + + + | Creatinine | 0.81Comment: Testing | 0.70 - 1.30 | EXTERNAL | | | | performed at [facility], [address] | mg/dL | LAB | | | | [address], | | | | | | [place] [address] | | | | + + + + + + | BUN/Creatin | 15Comment: Testing | | EXTERNAL | | | ine Ratio | performed at [facility], [address] | | LAB | | | [address], | | | | | | [place] [address] | | | | + + + + + + | Calcium | 8.3 (L)Comment: NOTE NEW | 8.5 - 10.5 | EXTERNAL | | | | REFERENCE RANGETesting | mg/dL | LAB | | | | performed at [facility], [address] | | | | | | [address], | | | | | | [place] [address] | | | | + + + [...] | | | | | | at [facility], [address] | | | | | | [address], | | | | | | [place] [address] | | | | + + + [...] | | | Clotting | performed at [facility];888 | seconds | LAB | | | time, POC | [address];[place] | | | | | | [address] | | | | + + + [...] SURGEON: | | | Vincent Fields MD ROUGH RICE GRADER: MORRO Arboleda ANESTHESIA: General | | | [...] | properly identified and brought to the Silviculture Professor. The patient was | | | placed supine on the Silviculture Professor table and the patient underwent general | [...] | | was upsized to a 7 Turkmen sheath. Next, a perclose device was deployed | | | at the 10:00 and 2:00 position in the right common femoral artery. | | | The 7 Turkmen sheath was then reinserted over the wire. A pigtail | | | catheter was then placed through the right sheath into the mid aorta. | | | Next, a micropuncture needle was used to access the left common | | | femoral artery. A micropuncture sheath was then inserted over wire and | | | this was upsized to a 7 Turkmen sheath. Again, a perclose device was | | | deployed at the 10:00 and 2:00 position in the left common femoral | | | artery. An Amplatz wire was then placed to the left 7 Turkmen sheath | | | with the tip of the wire in the aortic arch. Once the wire was in | | | place, the 7-Turkmen sheath was removed from the left common [...] | | placed into the right 7 comoran sheath with the tip at the aortic arch. | | | The 7 comoran sheath was then removed and upsized to a 16 comoran | | | sheath. Next, a right [...] device was then removed and a 16 comoran sheath was | | | inserted over the wire. A left iliac arteriogram was then performed | | | through the 16 Turkmen sheath and the location of the left [...] Mckeon Conversion - 04/03/2019 11:51 PM PDT Abdominal [...] the Perclose device SURGEON: Vincent Fields MD ROUGH RICE GRADER: Ingrid | | MORRO Morris ANESTHESIA: General endotracheal anesthesia ESTIMATED BLOOD LOSS: Less than | | 100 mL FLUIDS: 1500 ml crystalloids CONTRAST: 85 mL of Isovue 250 INDICATIONS: Mr. | | Jarad is a pleasant 69-year-old [...] identified and | | brought to the Silviculture Professor. The patient was placed supine on the Silviculture Professor table and the | | patient underwent general endotracheal anesthesia. The patient's abdomen and bilateral | | groins were then prepped and draped in the usual sterile fashion. First, a micropuncture | | needle was used to access the right common femoral artery. A micropuncture sheath was | | then inserted over wire and this was upsized to a 7 Turkmen sheath. Next, a perclose | | device was deployed at the 10:00 and 2:00 position in the right common femoral artery. | | The 7 Turkmen sheath was then reinserted over the wire. A pigtail catheter was then | | placed through the right sheath into the mid aorta. Next, a micropuncture needle was | | used to access the left common femoral artery. A micropuncture sheath was then inserted | | over wire and this was upsized to a 7 Turkmen sheath. Again, a perclose device was | | deployed at the 10:00 and 2:00 position in the left common femoral artery. An Amplatz | | wire was then placed to the left 7 Turkmen sheath with the tip of the wire in the aortic | | arch. Once the wire was in place, the 7-Turkmen sheath was removed from the left common [...] placed into the right 7 | | comoran sheath with the tip at the aortic arch. The 7 comoran sheath was then removed and | | upsized to a 16 comoran sheath. Next, a right iliac artery arteriogram [...] device was then removed and a 16 comoran sheath was inserted over the wire. A | | left iliac arteriogram was then performed through the 16 Turkmen sheath and the location | | of [...] SURGEON: | | | Vincent Fields MD ROUGH RICE GRADER: MORRO Arboleda ANESTHESIA: General | | | [...] | properly identified and brought to the Silviculture Professor. The patient was | | | placed supine on the Silviculture Professor table and the patient underwent general | [...] | | was upsized to a 7 Turkmen sheath. Next, a perclose device was deployed | | | at the 10:00 and 2:00 position in the right common femoral artery. | | | The 7 Turkmen sheath was then reinserted over the wire. A pigtail | | | catheter was then placed through the right sheath into the mid aorta. | | | Next, a micropuncture needle was used to access the left common | | | femoral artery. A micropuncture sheath was then inserted over wire and | | | this was upsized to a 7 Turkmen sheath. Again, a perclose device was | | | deployed at the 10:00 and 2:00 position in the left common femoral | | | artery. An Amplatz wire was then placed to the left 7 Turkmen sheath | | | with the tip of the wire in the aortic arch. Once the wire was in | | | place, the 7-Turkmen sheath was removed from the left common [...] | | placed into the right 7 comoran sheath with the tip at the aortic arch. | | | The 7 comoran sheath was then removed and upsized to a 16 comoran | | | sheath. Next, a right [...] device was then removed and a 16 comoran sheath was | | | inserted over the wire. A left iliac arteriogram was then performed | | | through the 16 Turkmen sheath and the location of the left [...] the Perclose device SURGEON: Vincent Fields MD ROUGH RICE GRADER: Ingrid | | MORRO Morris ANESTHESIA: General endotracheal anesthesia ESTIMATED BLOOD LOSS: Less than | | 100 mL FLUIDS: 1500 ml crystalloids CONTRAST: 85 mL of Isovue 250 INDICATIONS: Mr. | | Jarad is a pleasant 69-year-old [...] identified and | | brought to the Silviculture Professor. The patient was placed supine on the Silviculture Professor table and the | | patient underwent general endotracheal anesthesia. The patient's abdomen and bilateral | | groins were then prepped and draped in the usual sterile fashion. First, a micropuncture | | needle was used to access the right common femoral artery. A micropuncture sheath was | | then inserted over wire and this was upsized to a 7 Turkmen sheath. Next, a perclose | | device was deployed at the 10:00 and 2:00 position in the right common femoral artery. | | The 7 Turkmen sheath was then reinserted over the wire. A pigtail catheter was then | | placed through the right sheath into the mid aorta. Next, a micropuncture needle was | | used to access the left common femoral artery. A micropuncture sheath was then inserted | | over wire and this was upsized to a 7 Turkmen sheath. Again, a perclose device was | | deployed at the 10:00 and 2:00 position in the left common femoral artery. An Amplatz | | wire was then placed to the left 7 Turkmen sheath with the tip of the wire in the aortic | | arch. Once the wire was in place, the 7-Turkmen sheath was removed from the left common [...] placed into the right 7 | | comoran sheath with the tip at the aortic arch. The 7 comoran sheath was then removed and | | upsized to a 16 comoran sheath. Next, a right iliac artery arteriogram [...] device was then removed and a 16 comoran sheath was inserted over the wire. A | | left iliac arteriogram was then performed through the 16 Turkmen sheath and the location | | of [...] | | | Clotting | performed at [facility];[address] | seconds | LAB | | | time, POC | [address];[place], [place] | | | | | | [address] | | | | + + + [...] | | | Clotting | performed at [facility];[address] | seconds | LAB | | | time, POC | [address];[place] | | | | | | [address] | | | | + + + [...] | | | Clotting | performed at [facility];[address] | seconds | LAB | | | time, POC | [address];[place], [place] | | | | | | [address] | | | | + + + [...]
--- OUTSIDE RECORDS SUMMARY | ~2020-02-19 | XMS | Encounter Summary ---
Demographics + + + | Address | [address] | | | [place] [address] | + + + | Home Phone [...] Team Providers + +------+ + | Care Maintenance Shop Laborer Name | Role | Phone | [...] | | | | | nuclear | PRIVATE SECTOR EXECUTIVE [address] | MD [address] | | | | | stress test | [address] | BLVD | | | | | Cardiac | [place] | [place] | | | | | resynchroniz | [facility] [place] | [address] Phone: | | | | | ation | [phone] | [phone] | | | | | therapy | Phone: | Fax: | | | | | defibrillato | [phone] | [phone] | | | | | r (COCOA BUTTER FILTER OPERATOR-D) in | Fax: | | | | | | place | [phone] | | | | | | Non-ischemic [...] | | | | | | | [place] [facility] | | | | | [...] + + | 09/17/ | Hospital | [facility] | Kimmie Wills | Essential | | 2020 | Encounter | CENTER CV INTRA OP | MD Saravanan [address] | hypertension; | | | | [address] | BLVD [place], [place] | Abnormal nuclear | | | | [place], [place] | [address] | stress test; Cardiac | | | | [address] | | resynchronization | | | | [phone] | | therapy | | | | | | defibrillator | | | | | | (COCOA BUTTER FILTER OPERATOR-D) in place; | | | [...] - 09/17/2019 5:19 PM PSTAbout 1650 contacted finishing lab technician regarding mine kidd feeling better and when could patient go. Instructed to have patient ambulate and see how he did. Patient able to ambulate in the room with what he says he normal feels when he s tands up too quickly. Resolved quickly. Patient able to dress with assist. Called back to [facility] and agreeable to have patient go home. Reviewed discharge instructions with patient. Patient discharged with all belongings to [facility]. esús Caballero RN - 09/17/2019 4:12 [...] DR | | | | | | [place] [address] | | | | | | [phone] | | | | | | | [...] defibrillator | | | | | | (COCOA BUTTER FILTER OPERATOR-D) in place | | | [...] defibrillator | | | | | | (COCOA BUTTER FILTER OPERATOR-D) in place | | | [...] | | | POC | performed at [facility];[address] | | LABORATORY | | | | [address];[place], [place] | | | | | | [address] | | | | + + + + + + + + | Specimen | + + | | + + + + + + + | Performing | Address | City/State/Zipcode | Phone Number | | Organization | | | | + + + + + | [facility] | [address] [facility] | [place] [address] | [phone] | + + + + + CV [...] with left heart | | | cath ([id number]) Procedure Summary Access site: right radial | [...] | >60Comment: GFR <60: | >60 | [facility] | | | GFR | CHRONIC KIDNEY [...] | | | | | | MDRD IDMO traceable | | | | | | equation.Testing | | | | | | performed at [facility] | | | | | | [facility];[place], [place] | | | | | | [address] | | | | + + + + + + + + | Specimen | + + | | + + + + + + + | Performing | Address | City/State/Zipcode | Phone Number | | Organization | | | | + + + + + | [facility] | [address] | [place] [address] | [phone] | + + + + + CBC [...] [facility] | | | | performed at [facility];[address] | | LABORATORY | | | | [address];[place] | | | | | | [address] | | | | + + + + + + + + | Specimen | + + | Blood | + + + + + + + | Performing | Address | City/State/Zipcode | Phone Number | | Organization | | | | + + + + + | [facility] | [address] | [place] [address] | [phone] | + + + + + POC Glucose (09/17/2019 9:38 AM PST) + + + + + + | Component | Value | Ref Range | Performed | Pathologist | | | | | At | Signature | + + + + + + | Glucose, | 127 (H)Comment: Testing | 65 - 99 mg/dL | [facility] | | | POC | performed at [facility];[address] | | LABORATORY | | | | [address];[place], [place] | | | | | | [address] | | | | + + + + + + + + | Specimen | + + | | + + + + + + + | Performing | Address | City/State/Zipcode | Phone Number | | Organization | | | | + + + + + | [facility] | [address] | [place] [address] | [phone] | + + + + + documented in this encounter Visit Diagnoses + + | Diagnosis | + + | Essential hypertension Unspecified essential hypertension | + + | Abnormal nuclear stress test Other nonspecific abnormal cardiovascular system | | function study | + + | Cardiac resynchronization therapy defibrillator (COCOA BUTTER FILTER OPERATOR-D) in place | + + | Non-ischemic [...] + + | Cardiac resynchronization therapy defibrillator (COCOA BUTTER FILTER OPERATOR-D) in place | + + | Non-ischemic [...] | | | Administer over 1 Hours, PRESSROOM SUPERVISOR, | | AM PST | | | [...]
--- OUTSIDE RECORDS SUMMARY | ~2020-02-19 | XMS | Encounter Summary ---
Demographics + + + | Address | [address] | | | [place] [address] | + + + | Home Phone | | + + + | Preferred Language | Unknown | + + + | Marital Status | | + + + | Mormon Affiliation | Unknown | + + + [...] Providers + +------+ + | Care Sales Promotion Manager Name | Role | Phone | + +------+ + | Carla Murphy | PCP | | | PA-C | | | + +------+ + Reason for Visit +---------+--------+ + | Reason | Onset | Comments | | | Date | | +---------+--------+ + | Results | 11/01/ | nocturnal oximetry | | | 2015 [...] | | | | | | [place] [address] | | | | | | [phone] | | | +--------+ + + + [...] Telephone Encounter - Soila Rudd RN - 11/02/2015 4:06 PM PDTCalled Jared and advi sed that Dr Nicohlson is recommending that he increase his nocturnal O2 to 3 l/m and have a repeat nocturnal pulse oximetry as his O2 sat was below 88% for 90.3 minutes on O2 at 2 l/m . Okay per patient. Orders sent to [facility]. documented in this encounter Plan of Treatment +--------+ + + + + | Date | Type | Specialty | Care Team | Description | +--------+ + + + + | 04/28/ | Office | Cardiology | Nav Foley, | | | 2019 | Visit | | MD [address] | | | | | | [place] [address] | | | | | | [phone] | | | | | | | [...]
--- OUTSIDE RECORDS SUMMARY | ~2020-02-19 | XMS | Encounter Summary ---
Demographics + + + | Address | [address] | | | [place] [address] | + + + | Home Phone | | + + + | Preferred Language | Unknown | + + + | Marital Status | | + + + | Scientology Affiliation | Unknown | + + + | Race | Unknown | + + + | Ethnic Group | Unknown | + + + Author + + + | Author | [facility] | | | and [place] | + + + | Organization | [facility] | | | [...] Team Providers + +------+ + | Care Screw Machine Set Up Operator Tool Name | Role | Phone | + +------+ + | Carla Murphy | PCP | | | PA-C | | | + +------+ + Reason for Visit +--------+--------+ + | Reason | Onset | Comments | | | Date | | +--------+--------+ + | Other | 08/06/ | left msg for patient to call back | | | 2018 | | +--------+--------+ + Encounter Details +--------+ + + + + | Date | Type | Department | Care Team | Description | +--------+ + + + + | 08/06/ | Telephone | [facility] | Mary Tipton, ERNIE | Other (left msg for | | 2018 | | [facility] | [address] | patient to call | | | | [address] | [facility] | back) | | | | [place], [place] | [address] | | | | | [address] | | | | | | [phone] | | | +--------+ + + + [...] Notes Telephone Encounter - Elif Aj - 2019 8:37 AM PSTLeft message for patient to call back and schedule stress test. Electronically signed by Elif Aj at 019 8:37 AM PSTdocumented in this encounter Plan of Treatment +--------+ + + + + | Date | Type | Specialty | Care Team | Description | +--------+ + + + + | 04/28/ | Office | Cardiology | Nav Foley, | | | 2019 | Visit | | MD [address] | | | | | | [place] [address] | | | | | | [phone] | | | | | | | | +--------+ + + + + | 04/28/ | Procedure | Cardiology | | | | 2019 | visit | | | | +--------+ + + + + documented as of this encounter Visit Diagnoses Not on filedocumented in this encounter"
--- OUTSIDE RECORDS SUMMARY | ~2020-02-19 | XMS | Encounter Summary ---
Demographics + + + | Address | [address] | | | [place] [address] | + + + | Home Phone | | + + + | Preferred Language | Unknown | + + + | Marital Status | | + + + | Yarsani Affiliation | Unknown | + + + | Race | Unknown | + + + | Ethnic Group | Unknown | + + + Author + + + | Author | [facility] | | | and [place] | + + + | Organization | [facility] | | [...] Team Providers + +------+ + | Care Flame Channeler Name | Role | Phone | + +------+ + PCP | Unavailable | + +------+ + Encounter Details +--------+ + + + + | Date | Type | Department | Care Team | Description | +--------+ + + + + | 09/17/ | Hospital | [facility] | Conversion | | | 2015 | Encounter | [facility] | Transaction, | | | | | [address] | Provider Unknown | | | | | [place], [place] | | | | | | [address] | (Fax) | | | | | [phone] | | | +--------+ + + + [...] | | | | | [place] [address] | | | | | | [phone] | | | | | | | | +--------+ + + + + | 04/28/ | Procedure | Cardiology | | | | 2019 | visit | | | | +--------+ + + + + documented as of this encounter Visit Diagnoses Not on filedocumented in this encounter"
--- OUTSIDE RECORDS SUMMARY | ~2020-02-19 | XMS | Encounter Summary ---
Demographics + + + | Address | [address] | | | [place] [address] | + + + | Home Phone [...] Team Providers + +------+ + | Care Hydroelectric Powerplant Supervisor Name | Role | Phone | + +------+ + | Carla Murphy | PCP | | | PA-C | | | + +------+ + Encounter Details +--------+ + + + + | Date | Type | Department | Care Team | Description | +--------+ + + + + | 09/04/ | Documentati | [facility] | Mary Tipton ANP | | | 2020 | on | CARDIOLOGY [place] | [address] | | | | | [address] | [place], [place] | | | | | [place], [place] | [address] | | | | | [address] | | | | | | [phone] | | | +--------+ + + + [...] | | | | | [place] [address] | | | | | | [phone] | | | | | | | | +--------+ + + + + | 04/28/ | Procedure | Cardiology | | | | 2019 | visit | | | | +--------+ + + + + documented as of this encounter Visit Diagnoses Not on filedocumented in this encounter"
--- OUTSIDE RECORDS SUMMARY | ~2020-02-19 | XMS | Encounter Summary ---
Demographics + + + | Address | [address] | | | [place] [address] | + + + | Home Phone [...] Team Providers + +------+ + | Care Bilingual Loan Processor Name | Role | Phone | + +------+ + | Carla Murphy | PCP | | | PA-C | | | + +------+ + Encounter Details +--------+ + + + + | Date | Type | Department | Care Team | Description | +--------+ + + + + | 06/18/ | Procedure | [facility] | Nav Foley, | Palpitations | | 2019 | visit | CARDIOLOGY [place] | [address] | | | | | [address] | [place] [address] | | | | | [place], [place] | [phone] | | | | | [address] | | | | | | [phone] | | | +--------+ + + + [...] - 06/18/2019 3:00 PM PDT30 day telemetry 76391 cardiac monit or placed on patient. EOB/Billing information discussed. Instructions given and understood. Patient instructed to call [employer] for any billing or monitor questions. documented in this encounter Plan of Treatment +--------+ + + + + | Date | Type | Specialty | Care Team | Description | +--------+ + + + + | 04/28/ | Office | Cardiology | Nav Foley, | | | 2019 | Visit | | MD [address] | | | | | | [place] [address] | | | | | | [phone] | | | | | | | [...]
--- OUTSIDE RECORDS SUMMARY | ~2020-02-19 | XMS | Encounter Summary ---
Demographics + + + | Address | [address] | | | [place] [address] | + + + | Home Phone [...] Team Providers + +------+ + | Care Quick Print Operator Name | Role | Phone | [...] | PULMONARY [address] | RN | ([facility]) | | | | [place], | | | | | | [place] [address] | | | | | | [phone] | | | +--------+ + + + [...] DR | | | | | | [place] [address] | | | | | | [phone] | | | | | | | [...]
--- OUTSIDE RECORDS SUMMARY | ~2020-02-19 | XMS | Encounter Summary ---
Demographics + + + | Address | [address] | | | [place] [address] | + + + | Home Phone [...] Providers + +------+ + | Care Sales Floor Manager Name | Role | Phone | [...] + + | 07/30/ | Office | [facility] | Mary Tipton ANP | Non-ischemic | | 2019 | Visit | CARDIOLOGY [place] | [address] | cardiomyopathy (HCC) | | | | [address] | [place], [place] | (Primary Dx); | | | | [place], [place] | [id number] | Non-sustained | | | | [address] | | ventricular | | | | [phone] | | tachycardia (HCC); | | | | | | Cardiac | | | | | | resynchronization | | | | | | therapy | | | | | | defibrillator | | | | | | (SERVER SECURITY ADMINISTRATOR-D) in place; | | | | [...] [place] ONCE WE HAVE THE RECORDS FROM [facility] documented in this encounter Progress Notes Mary Tipton ANP - 07/30/2019 3:15 PM PST ELECTROPHYSIOLOGY OUTPATIENT FOLLOW UP PATIENT NAME: Jared Abraham : 1945: AGE: 73 y.o. (home) : PRIMARY CARE: Carla Murphy PA-C Requesting Physician: No referring provider defined for this encounter. Plan SUMMARY OF EP RECOMMENDATIONS Continue current device settings, as appropriate device function Request records from [facility] for hospital stay 07/23/2019-07/28/2019 and TTE [...] and interpreted reveals -BiV pacing HR 83, LA 172, QR SD 154, QTC 509 Greater than 45 minutes spent with patient and/or family. Greater than 25 minutes spent in counseling and education on cardiomyopathy, NSVT, amiodarone. EP PROBLEMS ADDRESSED AT TODAY'S VISIT Problem List Cardiac resynchronization therapy defibrillator (SERVER SECURITY ADMINISTRATOR-D) in place Overview History of nonischemic cardiomyopathy, NYHA class II, status post implantation of a MDT C RT-D by Dr. Chiang in January 2010. Generator change by Dr. Delarosa in 2014 viva xt SERVER SECURITY ADMINISTRATOR D MDT number [id number].Patient has a 5076 atrial lead Medtronic. 6947 [...] at the time of his hospitalization at [facility]. Non-ischemic cardiomyopathy Overview EF 35-40%, class [...] recent stress testing. Request echo results from [facility]. Will discuss next steps with Dr. [...] 04/15/2018: Admitted and treated for TIA at [facility] with consult form stroke team at [facility]. noted moderate stenosis of left vertebral artery at V1 and V2 segments, dysarthria, Exposure to secondhand smoke 07/21/2019 Note Last Updated: 07/21/2019 Goes to [place] almost nightly. Chronic restrictive lung disease 07/21/2019 DM II (diabetes mellitus, type II), controlled (HCC) 08/18/2018 History of ventricular tachycardia 08/17/2018 HTN (hypertension) 08/17/2018 Syncope and collapse 08/17/2018 Morbid obesity (HCC) 07/10/2017 Note Last Updated: 03/12/2019 Weight loss was strongly encouraged. He needs to get involved in an exercise program. 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 Cardiac resynchronization therapy defibrillator (SERVER SECURITY ADMINISTRATOR-D) in place 01/21/2017 Note Last Updated: 07/30/2019 History of nonischemic cardiomyopathy, NYHA class II, status post implantation of a MDT C RT-D by Dr. Chiang in January 2010. Generator change by Dr. Delarosa in 2014 viva xt SERVER SECURITY ADMINISTRATOR D MDT number [id number].Patient has a 5076 atrial lead [employer]tr[employer]. 6947 [...] at the time of his hospitalization at [facility]. Non-sustained ventricular tachycardia (HCC) 01/21/2017 Note [...] stress testing. [facility]. Will discuss next steps with Dr. Santiago [...] IV fluid resuscitation. Will request records from [facility] for further evaluation. He [...] [facility] Meperidine Anaphylaxis and Other (See Comments) Heart stops 08/18/18 Patient says [facility] Orphenadrine Anaphylaxis and Other (See Comments) Heart stops 08/18/18 Patient says [facility] Percodan [Oxycodone] Anaphylaxis Amiodarone Other (See Comments) [...] [place] ONCE WE HAVE THE RECORDS FROM [facility] Elisha Chakraborty CMA - 07/30/2019 3:15 PM [...] DR | | | | | | [place] [address] | | | | | | [phone] | | | | | | | [...] | | | | | by [employer] [place] [employer], | | | | | | [employer] Pam ([id number]), | | | | | | editor department Darwin Bob | | | | | | ([phone]) on 07/30/2019 | | | | | [...] + + | Cardiac resynchronization therapy defibrillator (SERVER SECURITY ADMINISTRATOR-D) in place | + + | Orthostatic hypotension | + + documented in this encounter
--- OUTSIDE RECORDS SUMMARY | ~2020-02-19 | XMS | Encounter Summary ---
Demographics + + + | Address | [address] | | | [place] [address] | + + + | Home Phone [...] Team Providers + +------+ + | Care Team Leader/Research Psychologist Name | Role | Phone | + +------+ + | Carla Murphy | PCP | | | PA-C | | | + +------+ + Reason for Visit +--------+--------+ + | Reason | Onset | Comments | | | Date | | +--------+--------+ + | Pre-Op | 09/16/ | confirmed arrival time for 09/17 procedure with patient | | | 2019 | | +--------+--------+ + Encounter Details +--------+ + + + + | Date | Type | Department | Care Team | Description | +--------+ + + + + | 09/16/ | Telephone | [facility] | Kimmie Wills | Pre-Op (confirmed | | 2019 | | CENTER CV INTRA OP | MD Saravanan [address] | arrival time for | | | | [address] | [address]VD [place], [place] | 09/17 procedure with | | | | [place], [place] | [address] | patient ) | | | | [address] | | | | | | [phone] | | | +--------+ + + + [...] this encounter Miscellaneous Notes Telephone Encounter - Tita George CNA - 09/16/2019 2:56 PM PSTconfirmed arrival time f or 09/17 procedure with patient 2: 56 PM PSTdocumented in this encounter Plan of Treatment +--------+ + + + + | Date | Type | Specialty | Care Team | Description | +--------+ + + + + | 04/28/ | Office | Cardiology | Nav Foley, | | | 2019 | Visit | | MD [address] | | | | | | [place] [address] | | | | | | [phone] | | | | | | | | +--------+ + + + + | 04/28/ | Procedure | Cardiology | | | 2019 | visit | | | | +--------+ + + + + documented as of this encounter Visit Diagnoses Not on filedocumented in this encounter"
--- OUTSIDE RECORDS SUMMARY | ~2020-02-19 | XMS | Encounter Summary ---
Demographics + + + | Address | [address] | | | [place] [address] | + + + | Home Phone [...] Team Providers + +------+ + | Care Geologic Technician Name | Role | Phone | + +------+ + | Carla Murphy | PCP | | | PA-C | | | + +------+ + Reason for Visit + + + | Reason | Comments | + + + | Follow-up, Office | Post angiogram | | Visit | | + + + Encounter Details +--------+---------+ + + + | Date | Type | Department | Care Team | Description | +--------+---------+ + + + | 10/09/ | Office | [facility] | Poppy Rodriguez | Non-ischemic | | 2020 | Visit | CARDIOLOGY DEANNE | [address] | cardiomyopathy (HCC) | | | | [address] | [address]JAN [address] | (Primary Dx); | | | | [address] | [place] [address] | Cardiac | | | | [place] | [phone] | resynchronization | | | | [address] | | therapy | | | | [phone] | | defibrillator | | | | | | (LIBRARY SCIENCE PROFESSOR-D) in place; | | | | | | Non-sustained | | | | | | ventricular | | | | | | tachycardia (HCC); | | | | | | False positive | | | | | | cardiac stress test; | | | | | | Orthostatic | | | | | | hypotension; Syncope | | | | | | and collapse; | | | | | | Essential | | | | | | hypertension; | | | | | | Chronic restrictive | | | | | | lung disease; | | | | | | Pulmonary emphysema, | | | | | | unspecified | | | | | | emphysema type | | | | | | ([facility]); Dyspnea on | | | | | | exertion; Exposure | | | | | | to secondhand smoke; | | | | | | History of | | | | | | abdominal aortic | | | | | | aneurysm repair; | | | | | | History of TIA | | | | | | (transient ischemic | | | | | | attack) | +--------+---------+ + + + Social History [...] + + + | Blood Pressure | 98/46 | 10/09/2019 3:09 PM | | | | | PST | | + + + + + | Pulse | 66 | 10/09/2019 3:09 PM | | | | | PST | | + + + + + | Temperature | - | - | | + + + + + | Respiratory Rate | - | - | | + + + + + | Oxygen Saturation | 95% | 10/09/2019 3:09 PM | | | | | PST | | + + + + + | Inhaled Oxygen | - | - | | | Concentration | | | | + + + + + | Weight | 109.5 kg (241 lb 4.8 | 10/09/2019 3:09 PM | | | | oz) | PST | | + + + + + | Height | 177.8 cm (5' 10") | 10/09/2019 3:09 PM | | | | | PST | | + + + + + | Body Mass Index | 34.62 | 10/09/2019 3:09 PM | | | | | PST | | + + + + + documented in this encounter Patient Instructions Patient Instructions Jennifer Darlene, FNP - 10/09/2019 3:30 PM PSTYour angiogram show ed no blockages to your coronary arteries, but your EKG today continues to show a lot of je tricular ectopy, which can be dangerous as we discussed. I made changes to medications and have started you on Amiodarone 100 mg twice a day ,and de crease Metoprolol Tartrate to 6.25 mg twice a day See Dr. Foley next month as planned, and he can follow up on how you respond to Amiodarone documented in this encounter Progress Notes Jennifer Darlene, FNP - 10/09/2019 3:30 PM PSTFormatting of this note might be differe nt from the original. Date of visit: 10/10/2019 Primary Care Physician: Carla Murphy PA-C CHIEF COMPLAINT: Chief Complaint Patient presents with Follow-up, Office Visit Post angiogram HISTORY OF PRESENT ILLNESS: Mr. Jared Abraham , who goes by Lizbeth, is a 74 year old man who is here today to foll ow up on his angiogram He Is a patient of Dr. Foley, who is his primary senior clinical research scientist,and last seen by him 2018. He has an AICD with LIBRARY SCIENCE PROFESSOR-D for history of ventricular tachycardia, allowed by [...] cardiomyopathy with angiogram performed in October 2008 royain g normal coronaries, history of ventricular tachycardia with insertion of LIBRARY SCIENCE PROFESSOR-D in January 2010 and most recent generator [...] detailed below. I saw him last on September 01, 2019 when I followed up with him about his stress test and echo results detailed below, and due to concerns of worsening ischemic heart disease with i ncreased VT, he was scheduled for an angiogram. I also again had a long discussion with him about his increased risk of with VT , an d that though he felt tired on amiodarone, his vitals signs were good, and that side effects decrease with time ,and lower dose of Amiodarone, as he only completed first week of taper. He wondered if could try Amiodarone 100 mg BID, or 200 mg daily., which I had asked EP abo me, and they suggested amiodarone 100 mg twice daily and decrease metoprolol back to 6.25 mg twice daily. His angiogram was performed 09/17/[address] Wills via right radial artery , and xi echeverria below., but all of his coronary arteries were angiographically normal with only his RCA sh owing minimal luminal irregularities and no intervention required. He was also seen in the emergency room at [facility] in [place] on September 02 chest pain pressure was 109-118 systolic with a pulse of 71-87 per ER record and his CMP was normal except for mildly elevated glucose of 131, and elevated total bili of 2 with norm al magnesium, troponin negative, and normal CBC been treated with IV Toradol, and his BNP n ormal , and thought to be costochondritis and treated with Toradol with resolution of sympto ms. He reports today that he has not had any episodes of chest pain since then, and has not not iced any palpitations. He has not had any problems with his right radial artery site, which is well-healed today with adequate the CWMS and pulse to right hand He denies any dizziness or lightheadedness, and reports blood pressure has been in 100- 112 mmHg systolic at home. He reports his weight has been stable, but ongoing mild pedal edema since off lasix. He c ontinues to have dyspnea with exertion, and ambulates with walker. He continues to have mi ld transient orthostatic hypotension when first gets up, [...] 30- 40 ounces of fluid daily. He continues to have very erratic sleep habits, as he usually goes to the [facility] at around midnight, and will stay to [...] PND. Poor sleep habits: Goes to the [facility] from midn ight-3 AM, usually goes to bed at 4 AM, and gets up at 1 PM. Cardiovascular: mild pedal edema, palpitations less frequent. Denies chest pain.Denies his tory of rheumatic fever. Denies claudication . Gastrointestinal: [...] due to poor activity tolerance. Lives in [place]. , lost his fiancee in 2001 when she in a car crash after being hit by distracted minibus driver on a cell phone Outpatient Medications [...] 10 mg by mouth daily. MAGNESIUM PO 500 mg every 48 hours. metFORMIN (GLUCOPHAGE-XR) 500 mg 24 hr tablet Take 1 tablet by mouth daily. metoprolol tartrate (LOPRESSOR) 25 mg tablet Take 25 mg by mouth 2 times daily. Take on e half tablet 12.5 mg and take one quarter 6.25 mg at night No facility-administered medications prior to visit. PHYSICAL EXAM: Wt Readings from Last 3 Encounters: 10/09/19 109.5 kg (241 lb 4.8 oz) 09/17/19 108.3 kg (238 lb 12.1 oz) 09/01/19 108 kg (238 lb 3.2 oz) Temp Readings from Last 3 Encounters: 09/17/19 36.8 C (98.2 F) (Oral) BP Readings from Last 3 Encounters: 10/09/19 98/46 09/17/19 120/73 09/01/19 (!) 82/44 Pulse Readings from Last 3 Encounters: 10/09/19 66 09/17/19 75 09/01/19 60 Vital signs: 10/28/2018: WT: 239 LB: BP: 98/58. Pulse 90 Vital signs: 06/09/2019: WT: 237 LB. BP: 106/60. Pulse 84. Vital signs: 08/18/2018: WT 230 LB. BP: 109/60: Pulse 71 GENERAL: Well developed, well nourished, Older man in no distress. Appears approximately stated age. HEENT: Normocephalic, atraumatic. Some difficulties with speech EYES: PERRL, EOM normal. MOUTH: Oral mucosae moist, dentition adequate, no lesions noted NECK: No JVD, lymphadenopathy, thyromegaly, bruits. Carotid pulses are 2+ bilaterally LUNGS/CHEST: Clear bilaterally, with no rales, rhonchi or wheezing noted, respirations unl abored HEART: LIBRARY SCIENCE PROFESSOR-D site to CHIKA, stable to palpation, well [...] tests: Lab Results Component Value Date WBC 11.39 (H) 09/17/2019 RBC 4.68 09/17/2019 RBC 4.27 08/18/2018 HGB 14.1 09/17/2019 HCT 41.0 09/17/2019 PLT 158 09/17/2019 Lab Results Component Value Date NA 141 09/17/2019 K 4.2 09/17/2019 CL 103 09/17/2019 CO2 32 09/17/2019 ANIONGAP 10 09/17/2019 GLUF 136 (H) 08/18/2018 BUN 12 09/17/2019 EGFR >60 09/17/2019 Lab Results Component Value Date CHOL 76 08/18/2018 TRIG 102 08/18/2018 LDL 27 08/18/2018 GLUF 136 (H) 08/18/2018 Lab Results Component Value Date BNP 113 (H) 01/21/2017 TSH 2.040 08/18/2018 No results found for: TOTEPI CARDIAC PROCEDURES/IMAGING Last Angiogram: 09/17/2019 ( [facility]) : All coronary arteries angiographically normal except RC A which has minimal luminal irregularities. LVEDP mildly elevated Angiogram: 11/05/2008: Normal coronaries, consistent with nonischemic cardiomyopathy EF 15- 20 percent.. Stress test: 08/29/2019 ([facility]): SPECT study showing large fixed apical defect [...] No intracranial saccular aneurysms are identifie d LIBRARY SCIENCE PROFESSOR-D Implant : MDT LIBRARY SCIENCE PROFESSOR-D by Dr. Martinez. in January 2010., Generator change by Dr. Delarosa in 15 viva xt LIBRARY SCIENCE PROFESSOR D MDT number [id number].Patient has a 5076 atrial lead Medtronic. 6947 Sprin t Quattro Medtronic RV lead and 4195 Starfix Medtronic LV lead. All leads were implanted in January 2010. Last LIBRARY SCIENCE PROFESSOR-D interrogation : 07/30/2019: ( [facility]): Battery longeviity 3.6 yrs. Bi V pace d 99.6%. RA paced 32.9 %. DDR 60-140 Bpm. Events: none but cleared on 07/23/[address] [facility] LIBRARY SCIENCE PROFESSOR-D interrogation: 06/02/2019: Battery longevity( 3 yrs, 11 months ) .PUPPET MAKER 2.73 V RA pac ing 14% , [...] Congestive heart failure parameters and trends stable. LIBRARY SCIENCE PROFESSOR-D interrogation: 09/23/2018: Battery longevity( 3.7-5.9y) 4.8 years/2.97V.PUPPET MAKER 2.73 V R A pacing 30.79 percent, RV pacing 99.04 percent, LIBRARY SCIENCE PROFESSOR pacing 98.92 percent. Lead impedance W NL. [...] terminated episode. No shocks. No aborted charges. LIBRARY SCIENCE PROFESSOR-D interrogation: 09/04/2018: Battery longevity 4.9 years/2.98 V ( PUPPET MAKER 2.73V) . Lead impe ndence WNL. Thresholds [...] gained 3 pounds over a 24-hour period LIBRARY SCIENCE PROFESSOR-D Quick Look: 08/17/2018: ( [facility] admission for syncope) : Longevity of [...] lve not well visualized, mild to moderate WA. Echo: 09/25/2017 ([facility]): Technically adequate study. EF 30-35 percent. Mild [...] pericardial effusion. NON CARDIAC TESTING: PFT: 10/19/2015:( [facility] [place]'): Spirometry: Prior to administration of inhaled bronchodilator, [...] complexes him a PVC's. Rate 72 bpm, WA 112 ms, QRS [...] by V paced rhythm. Rate 77 bpm, WA 162 ms, QRS 184 ms, QTC 506 ms, tracing personally reviewed by me. EKG 07/21/2019:Atrially sensed by V paced rhythm With PVC's, right bundle branch block, old septal infarct. Rate 104 bpm, WA 154 ms, QRS 174 ms, QTC 539 mL, Tracing personally reviewe d by me EK07/23/2019: ([facility]). Atrially sensed V paced rhythm with frequent PVC's. Rate 87 bpm , WA 166 ms, QRS 178 ms, QTC 555 ms, tracing personally reviewed by me EK09/01/2019 Atrial sensed V paced rhythm right bundle branch block. Occasional PVC's. Rate 76 bpm, WA 124 ms, QRS 184 ms, QTC 524 ms tracing personally reviewed by me EK10/09/2019: Atrially sensed V paced rhythm with frequent PVCs and fusion complexes. Ra te 83 bpm, WA 168 ms, QRS 178 ms, QTC 528 ms, tracing personally by me, and compared to EKG performed in August, he has increased burden of PVCs LABS labs: 08/17/2018: CMP: Sodium 140, potassium [...] creatinine 0.96, GFR 77 Labs: : 05/26/2019: [facility] ER: CBC: WBC 9.5, RBC 4.92, hemoglobin [...] 4.69, hemoglobin 14, hematocrit 42, platelets 160 Labs: : 09/02/2019: CMP: Sodium 139, potassium 4.6, chloride 101, CO2 32, glucose 131, BUN 1 4, creatinine 0.99, GFR 74, AST 26, ALT 20, alk phos 58, total bili 2, albumin 3.8. Magnesi um: 2.1. Troponin T <0.010. CBC: WBC 9, RBC 4.77, hemoglobin 14, hematocrit 41.6, platelet s 186. BNP 118 ASSESSMENT & PLAN: Lizbeth was here today to follow-up his Angiogram performed on September 17 as detailed above He has problems as detailed below. His angiogram showed no coronary artery disease except for mild luminal irregularities on h is RCA. I discussed the results with him in detail. His EKG performed in the clinic today showed increased PVCs, and I again discussed with kathy im his increased risk of with VT , and that though he felt tired on amiodarone, his vi tals signs were good, and I discussed with him that side effects decrease with time ,and lo wer dose of Amiodarone, as he only completed first week of taper. He is willing to try amiodarone 100 mg twice daily with decreased dose of metoprolol tar trate of 6.25 mg twice daily as recommended by electrophysiology. I have encouraged him to really give it a good trial, and not stop it after 2-3 days For his cardiac medications, I have left [...] day alternating with 250, and Metoprolol Tartrate 6.25 mg BID, a nd now around 100 mg twice daily as discussed. His ongoing intolerance of many medications may be secondary to his very small left apurva tebral artery, which had contributed to his TIA in 2018, and why he is so symptomatic when h e decreases his blood pressure.. He has ongoing dyspnea with exertion, likely due to exacerbation of his lung disease by se condhand smoke exposure as he goes to the [facility] almost nightly. He will follow up with Dr. Foley for primary cardiology in October, and Dr. Foley can evaluat e his response to amiodarone. 1. Non-ischemic cardiomyopathy (HCC) 2. Cardiac resynchronization therapy defibrillator (LIBRARY SCIENCE PROFESSOR-D) in place 3. Non-sustained ventricular tachycardia (HCC) 4. False positive cardiac stress test 5. Orthostatic hypotension 6. Syncope and collapse 7. Essential hypertension 8. Chronic restrictive lung disease 9. Pulmonary emphysema, unspecified emphysema type (HCC) 10. Dyspnea on exertion 11. Exposure to secondhand smoke 12. History of abdominal aortic aneurysm repair 13. History of TIA (transient ischemic attack) Orders Placed This Encounter Procedures ECG 12 lead The following portions of the patient's history [...] contain inadvertent rec ognition errors. Chan HOOKER [facility] 10/10/2019 Brandon mullins in this encounter Plan of Treatment +--------+ + + + + | Date | Type | Specialty | Care Team | Description | +--------+ + + + + | 04/28/ | Office | Cardiology | Nav Foley, | | | 2019 | Visit | | MD [address] | | | | | | [place] [address] | | | | | | [phone] | | | | | | | [...] | ECG 12 LEAD | Routin | 10/09/2019 | Non-ischemic | Results for this | | | e | 3:23 PM | cardiomyopathy (HCC) | procedure are in the | | | | PST | Cardiac | results section. | | | | | resynchronization | | | | | | therapy | | | | | | defibrillator | | | | | | (LIBRARY SCIENCE PROFESSOR-D) in place | | | | | | Non-sustained | | | | | | ventricular | | | | | | tachycardia (HCC) | | | | | | False positive | | | | | | cardiac stress test | | | | | | Orthostatic | | | | | | hypotension Syncope | | | | | | and collapse | | | | | | Essential | | | | | | hypertension | | | | | | Chronic restrictive | | | | | | lung disease | | | | | | Pulmonary emphysema, | | | | | | unspecified | | | | | | emphysema type (HCC) | | | | | | Dyspnea on | | | | | | exertion Exposure | | | | | | to secondhand smoke | | | | | | History of | | | | | | abdominal aortic | | | | | | aneurysm repair | | | | | | History of TIA | | | | | | (transient ischemic | | | | | | attack) | | + +--------+ + + + | LABS - EXTERNAL SCAN | | 09/02/2019 | | Results for this | | | | 12:00 AM | | procedure are in the | | | | PST | | results section. | + +--------+ + + + documented in this encounter Results ECG 12 lead (10/09/2019 3:23 PM PST) + + + + + + | Component | Value | Ref Range | Performed | Pathologist | | | | | At | Signature | + + + + + + | VENTRICULAR | 83 | BPM | [facility] | | | RATE EKG | | | | | + + + + + + | ATRIAL RATE | 82 | BPM | [facility] | | + + + + + + | P-R | 168 | ms | [facility] | | | INTERVAL | | | | | + + + + + + | QRS | 178 | ms | [facility] | | | DURATION | | | | | + + + + + + | Q-T | 450 | ms | [facility] | | | INTERVAL | | | | | + + + + + + | Q-T | 528 | ms | [facility] | | | INTERVAL | | | | | | (CORRECTED) | | | | | + + + + + + | P WAVE AXIS | 45 | degrees | [facility] | | + + + + + + | QRS AXIS | -114 | degrees | [facility] | | + + + + + + | T AXIS | 58 | degrees | [facility] | | + + + + + + | INTERPRETAT | Atrial-sensed | | [facility] | | | ION TEXT | ventricular-paced rhythm | | | | | | with frequent AV | | | | | | dual-paced complexes and | | | | | | with frequent Premature | | | | | | ventricular complexes | | | | | | and Fusion | | | | | | complexesAbnormal | | | | | | ECGWhen compared with | | | | | | ECG of 01-SEP-2019 | | | | | | 14:15,much more | | | | | | ventricular | | | | | | ectopyConfirmed by | | | | | | Poppy Rodriguez | | | | | | Ondina ([id number]) on | | | | | | 10/09/2019 4:16:47 PM | | | | + + [...] | | | + +---------+ + + LABS - EXTERNAL SCAN (09/02/2019 12:00 AM PST) + + + | Narrative | Performed At | + + + | Ordered by an | | | unspecified provider. | | + + + documented in this encounter Visit Diagnoses + + | Diagnosis | + + | Non-ischemic cardiomyopathy (HCC) - Primary Other primary cardiomyopathies | + + | Cardiac resynchronization therapy defibrillator (LIBRARY SCIENCE PROFESSOR-D) in place | + + | Non-sustained ventricular tachycardia (HCC) Paroxysmal ventricular tachycardia | + + | False positive cardiac stress test Person with feared complaint in whom no diagnosis | | was made | + + | Orthostatic hypotension | + + | Syncope and collapse | + + | Essential hypertension Unspecified essential hypertension | + + | Chronic restrictive lung disease Other diseases of lung, not elsewhere classified | + + | Pulmonary emphysema, unspecified emphysema type (HCC) | + + | Dyspnea on exertion Other dyspnea and respiratory abnormality | + + | Exposure to secondhand smoke Other specified personal history presenting hazards to | | health | + + | History of abdominal aortic aneurysm repair Other postprocedural status | + + | History of TIA (transient ischemic attack) Transient ischemic attack (TIA), and | | cerebral infarction without residual deficits | + + documented in this encounter
--- OUTSIDE RECORDS SUMMARY | ~2020-02-19 | XMS | Encounter Summary ---
Demographics + + + | Address | [address] | | | [place] [address] | + + + | Home Phone [...] Team Providers + +------+ + | Care Packer Denture Name | Role | Phone | + [...] + + | 09/15/ | Telephone | [facility] | Janet, | Intake Questions | | 2019 | | [facility] | Nanci Hooks RN | | | | | [address] | | | | | | [place] | | | | | | [address] | | | | | | [phone] | | | +--------+ + + + [...] Pt would like to speak to Dr. Elma bruno. I have given him the pt's [...] DR | | | | | | [place] [address] | | | | | | [phone] | | | | | | | | +--------+ + + + + | 04/28/ | Procedure | Cardiology | | | | 2020 | visit | | | | +--------+ + + + + documented as of this encounter Visit Diagnoses Not on filedocumented in this encounter"
--- OUTSIDE RECORDS SUMMARY | ~2020-02-19 | XMS | Encounter Summary ---
Demographics + + + | Address | [address] | | | [place] [address] | + + + | Home Phone [...] Providers + +------+ + | Care Marketing Development Manager Name | Role | Phone | [...] MD | diaphragm | | | | [place], | | | | | | [place] [address] | | | | | | [phone] | | | +--------+ + + + [...] | | | | | [place] [address] | | | | | | [phone] | | | | | | | [...]
--- OUTSIDE RECORDS SUMMARY | ~2020-02-19 | XMS | Encounter Summary ---
Demographics + + + | Address | [address] | | | [place] [address] | + + + | Home Phone [...] Providers + +------+ + | Care Medical Billing And Coding Specialist Name | Role | Phone | + +------+ + | Carla Murphy | PCP | | | PA-C | | | + +------+ + Reason for Visit + + + | Reason | Comments | + + + | Device Check | Medtronic HIRE CAR DRIVER-D remote | | (Remote) | | + + + Encounter Details +--------+ + + + + | Date | Type | Department | Care Team | Description | +--------+ + + + + | 06/02/ | Procedure | [facility] | | Non-ischemic | | 2019 | visit | [facility] [place] | | cardiomyopathy (HCC) | | | | [address] | | (Primary Dx); | | | | [place], [place] | | Non-sustained | | | | [address] | | ventricular | | | | [phone] | | tachycardia (HCC); | | | [...] Rodriguez Primary electrophysiology provider: Constantin Chavez Device floral designer: Medtronic Device type: Biventricular Battery Longevity: 3yrs [...] since the last interrogation. Testing reviewed by: mycology teacherRossy Shoemaker Associated attestation - Constantin Chavez MD [...] DR | | | | | | [place] [address] | | | | | | [phone] | | | | | | | [...] + + + | Germain Boyle | [facility] | | Navid Technologist 06/02/2019 9:10ICD REMOTE INTERROGATION | | | REPORT Name: Jared Blake Jarad PCP: Carla Murphy PA-C | | | : 1945MRN: [id number] Primary cardiology provider: Poppy | | | Ruby Rodriguez Primary electrophysiology provider: Constantin Chavez | | | Device floral designer: Medtronic Device type: Biventricular Battery | | [...] | the last interrogation. Testing reviewed by: mycology teacher Fransisca Shoemaker | | | | | [...] | | | | |Testing reviewed by: [facility] Fransisca Shoemaker | | | | | [...]
--- OUTSIDE RECORDS SUMMARY | ~2020-02-19 | XMS | Encounter Summary ---
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 It s normal to find a small [...] Fever over 100.4F (38C) Date Last Reviewed: 01/19/201619996301-2881 [employer] [address] [place] [address]. All [facility] reserved. This information is not intended [...] of Dr. Foley, who is his primary branch mechanic,and last seen by him 2018. He has an AICD with MONOMER RECOVERY SUPERVISOR-D for history of ventricular tachycardia, allowed by [...] history of ventricular tachycardia with insertion of MONOMER RECOVERY SUPERVISOR-D in January 2010 and most recent generator [...] from July 23 until July 25 at [facility] for li ghtheadedness and presyncope, with hypotension. He was taken off the bisoprolol for 48 jose rs but then developed significant multiple PVC's, and noted that the monitoring analyst with heart rate in the 80's when [...] PND. Poor sleep habits: Goes to the [facility] from midn ight-3 AM, usually goes [...] due to poor activity tolerance. Lives in [place]. , lost his fiancee in 2001 when she in a car crash after being hit by distracted assembly line driver on a cell phone Outpatient Medications [...] or wheezing noted, respirations unl abored HEART: MONOMER RECOVERY SUPERVISOR-D site to CHIKA, stable to palpation, well [...] E F 15-20 percent.. Stress test: 08/29/2019 ([facility]): SPECT study showing large fixed [...] No intracranial saccular aneurysms are identifie d MONOMER RECOVERY SUPERVISOR-D Implant : MDT MONOMER RECOVERY SUPERVISOR-D by Dr. Martinez. in January 2010., Generator change by Dr. Delarosa in 15 viva xt MONOMER RECOVERY SUPERVISOR D MDT number [id number].Patient has a 5076 atrial lead Medtronic. 6947 Sprin t Quattro Medtronic RV lead and 4195 Starfix Medtronic LV lead. All leads were implanted in January 2010. Last MONOMER RECOVERY SUPERVISOR-D interrogation : 07/30/2019: ( Mary Tipton): Battery longeviity 3.6 yrs. Bi V pace d 99.6%. RA paced 32.9 %. DDR 60-140 Bpm. Events: none but cleared on 07/23/[address] [facility] MONOMER RECOVERY SUPERVISOR-D interrogation: 06/02/2019: Battery longevity( 3 yrs, 11 months ) .CLINICAL RESEARCH MANAGER 2.73 V RA pac ing 14% , [...] Congestive heart failure parameters and trends stable. MONOMER RECOVERY SUPERVISOR-D interrogation: 09/23/2018: Battery longevity( 3.7-5.9y) 4.8 years/2.97V.CLINICAL RESEARCH MANAGER 2.73 V R A pacing 30.79 percent, RV pacing 99.04 percent, MONOMER RECOVERY SUPERVISOR pacing 98.92 percent. Lead impedance W NL. [...] terminated episode. No shocks. No aborted charges. MONOMER RECOVERY SUPERVISOR-D interrogation: 09/04/2018: Battery longevity 4.9 years/2.98 V ( CLINICAL RESEARCH MANAGER 2.73V) . Lead impe ndence WNL. Thresholds [...] gained 3 pounds over a 24-hour period MONOMER RECOVERY SUPERVISOR-D Quick Look: 08/17/2018: ( [facility] admission for syncope) : Longevity of [...] lve not well visualized, mild to moderate IL. Echo: 09/25/2017 ([facility]): Technically adequate study. EF 30-35 percent. [...] complexes him a PVC's. Rate 72 bpm, IL 112 ms, QRS 150 ms, QTC 494 ms tracing personally reviewed by me EK10/10/2018: Atrially paced rhythm, occasional PVC. Rate 84 bpm, IL 178 ms, QRS 174 ms, QTC 531 ms him a tracing personally reviewed by me, and improved rate and less frequent PVC 's and EKG performed 07/2018 EK01/28/2019: Atrially sensed by V paced rhythm. Rate 77 bpm, IL 162 ms, QRS 184 ms, QTC 506 ms, tracing personally reviewed by me. EKG 07/21/2019:Atrially sensed by V paced rhythm With PVC's, right bundle branch block, old septal infarct. Rate 104 bpm, IL 154 ms, QRS 174 ms, QTC 539 mL, Tracing personally reviewe d by id EK07/23/2019: ([facility] ER). Atrially sensed V paced rhythm with frequent PVC's. Rate 87 bpm , IL 166 ms, QRS 178 ms, QTC 555 ms, tracing personally reviewed by id EK09/01/2019 Atrial sensed V paced rhythm right bundle branch block. Occasional PVC's. Rate 76 bpm, IL 124 ms, QRS 184 ms, QTC 524 [...] creatinine 0.96, GFR 77 Labs: : 05/26/2019: [facility] ER: CBC: WBC 9.5, RBC 4.92, [...] thyroid function His stress test performed at [facility] on August 29 is detailed above and was reported as a high risk study due reduced EF of 18%, though higher on Echo at 40%, and he had a large fixe d inferoapical defect and a small fixed basal lateral defect with mild RV uptake of tracer. His Echo performed July [address] [facility] [place] [facility] is day also detailed above and showed [...] no stenosis or regurgitation mild TR, [facility], with no stenosis to any [...] him to either spend the night in [place], or spend a week getting up nicholas [...] cardiomyopathy (HCC) 2. Cardiac resynchronization therapy defibrillator (MONOMER RECOVERY SUPERVISOR-D) in place 3. Non-sustained ventricular tachycardia (HCC) [...] lead Case Request - CV/EP LAB: CV [facility] The following portions of the patient's [...] contain inadvertent rec ognition errors. Chan HOOKER [facility] Cardiology 09/01/2019 Brandon mullins in this encounter Plan of Treatment +--------+ + + + + | Date | Type | Specialty | Care Team | Description | +--------+ + + + + | 04/28/ | Office | Cardiology | Nav Foley, | | | 2019 | Visit | | MD [address] | | | | | | [place] [address] | | | | | | [phone] | | | | | | | [...] defibrillator | | | | | | (MONOMER RECOVERY SUPERVISOR-D) in place | | | | | [...] | | | | | by [employer] Coplay Read Only, | | | | | | ICA Pam ([id number]), | | | | | | newspaper or periodical editor Darwin Bbo | | | | | | ([id number]) on 09/01/2019 | | | | | [...] + + | Cardiac resynchronization therapy defibrillator (MONOMER RECOVERY SUPERVISOR-D) in place | + + | Non-sustained [...]
--- OUTSIDE RECORDS SUMMARY | ~2020-02-19 | XMS | Encounter Summary ---
Demographics + + + | Address | [address] | | | [place] [address] | + + + | Home Phone [...] Organization | [facility] | | | and [...] Team Providers + +------+ + | Care Casino Cage Supervisor Name | Role | Phone | [...] Chiang MD | | | | | [place], | | | | | | [place] [address] | | | | | | [phone] | | | +--------+ + + + [...] | 04/28/ | Office | Cardiology | Ewer, Nav Anabela, | | | 2019 | Visit | | MD [address] | | | | | | [place] [address] | | | | | | [phone] | | | | | | | [...] + + + | EXTERNAL LAB: Mariia TYPE | Routin | 08/26/2015 | | Results for this | | NATURETIC PEPTIDE | e | | | procedure are in the | | | | | | results section. | + +--------+ + + + | EXTERNAL LAB: JAY | Routin | 08/13/2015 | | Results [...] | Serum | | mmol/L | [facility] | | | | [...] ST. | [address] | [place] | [phone] | | [facility] | | [id number] | | | - LABORATORY [...] + | [facility] | [address] | [place], [place] | [phone] | | [facility] | | [id number] | | | - LABORATORY [...] ST. | [address] | [place] | [phone] | | [facility] | | [id number] | | | - LABORATORY [...]
--- OUTSIDE RECORDS SUMMARY | ~2020-02-19 | XMS | Clinical Summary ---
Demographics + + + | Address | [address] | | | [place] [address] | + + + | Home Phone [...] Providers + +------+ + | Care Community Service Officer Coordinator Name | Role | Phone | [...] automatically from request for surgery | | [id number] | + + + + + | [...] Danis's with consult form stroke team at [facility]. 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 Chiang in January | | 2009.Generator change by Dr. Delarosa in 2014 viva xt DIRECTOR OF COMMUNITY SERVICES D MDT | | number [id number].Patient has a 5076 atrial lead Medtronic. 6947 [...] time of his | | hospitalization at [facility]. | + + + + + | [...] | | testing. Request echo results from [facility]. Will discuss | | next steps with [...] DR | | | | | | [facility] [place] [address] | | | | | | [phone] | | | | | | | [...] | + +--------+------+ +--------+--------+--------+ | Implant Id: [id number] - | Cardia | | MEDTRONIC - | | | | | Necktie Stitcher-D-05/17/2015Implanted: | c | | MEDT | | | /[id number] | | 05/17/2015 by Uvaldo Delarosa, | Rhythm | | | | | [id number] | | PhD (Quantity not on | | | | | | / | | file) | Manage | | | | | | | | ment | | | | | | + +--------+------+ +--------+--------+--------+ | Implant Id: [id number] - Endurant | Endogr | | MEDTRONIC - | | | | | EndograftImplanted: | aft | | MEDT | | | /[id number] | | 09/23/2014 by Vincent Fields, | | | | | | [id number] / | | (Quantity not on file) | | | | | | | + +--------+------+ +--------+--------+--------+ | Implant Id: [id number] - Endurant | Endogr | | MEDTRONIC - | | | | | EndograftImplanted: | aft | | MEDT | | | /[id number] | | 09/23/2014 by Vincent Fields, | | | | | | [id number] / | | MD (Quantity not on file) | | | | | | | + +--------+------+ +--------+--------+--------+ | Implant Id: [id number] - Endurant | Endogr | | | [...] +--------+ +---------+--------+ | MEDICARE | MEDICA | [id number] | 10/19/19 | [phone] | | Medica | | | RE | | 13-Pre | 5 | | re | | | PART A | | sent | | | | | | AND B | | | | | | + +--------+ +--------+ +---------+--------+ | MEDICARE | MEDICA | [id number] | 05/31/ | [phone] | | Medica | | | RE | | 2019-P | 5 | | re | | | PART A | | resent | | | | | | AND B | | | | | | + +--------+ +--------+ +---------+--------+ | [employer] | TRANSA | [id number] | 10/19/19 | | | Indemn | | INSURANCE | MERICA | | 15-Pre | | | ity | | | LIFE | | sent | | | | | | MS | | | | | | + +--------+ +--------+ +---------+--------+ | [employer] | TRANSA | [id number] | 10/19/19 | | | Indemn | [...] [address] | | [place] | al/Fam | | 1945 | [phone] | [place] | | | chas | | | 6 (Home) | [address] | + +--------+ +--------+ + + | Jared Abraham | Person | Self | [birth year] | | [address] | | [place] | brinda/Serjio | | 1945 | [phone] | [place] | | | chas | | | 6 (Home) | [address] | + +--------+ +--------+ + + Advance Directives + + + + + | Type | Date Recorded | Patient | Explanation | | | | Art History Professor | | + + + + + | Power of | | | | | Log Skidder | | | | + + + + + | Advance | 09/17/2019 8:31 | | | | Directive | AM | | | + + + + +
--- OUTSIDE RECORDS SUMMARY | ~2020-02-19 | XMS | Encounter Summary ---
Demographics + + + | Address | [address] | | | [place] [address] | + + + | Home Phone [...] Providers + +------+ + | Care Electrical Engineering Designer Name | Role | Phone | + +------+ + PCP | Unavailable | + +------+ + Encounter Details +--------+ + + + + | Date | Type | Department | Care Team | Description | +--------+ + + + + | 11/05/ | Hospital | [facility] | Elder Suresh MD | Unspecified Chest | | 2008 | Encounter | [facility] | [address] | Pain | | | | CLINICAL DECISION | Jose [address] Ceballos | | | | | [address] | [place], [place] | | | | | [place], [place] | [address] | | | | | [address] | [phone] | | | | | [phone] | | | +--------+ + + + [...] DR | | | | | | [place] [address] | | | | | | [phone] | | | | | | | [...] Performed At | + + + | [id number] | | | Page 1 CARDIOLOGY | | | CD [address]/ | | | [facility] | | | CENTER NAME: [facility] [place], [place] | | | [address] | | | | | | DATE OF : 1945 | | | ORDER NUMBER: [id number] EXAM DATE/TIME: 11/05/2008 08:22 A | | [...] | | | 1% lidocaine solution. A 6-Faroese arterial sheath was inserted into | | | the right common femoral artery using a modified Seldinger technique. | | | A 6-Faroese pigtail catheter was advanced over the guidewire [...] was exchanged over the guidewire by a 6-Faroese JL4 catheter that was | | | [...] a | | | guidewire by a 6-Faroese right coronary artery (RCA) Waqar catheter | [...] 01:39 P A | | | P ONI/dolly/[id number]/ cc: ELDER SURESH MD | | | RYAN FREY MD | | + + + + + | Procedure Note | + + | David Mckeon - 04/14/2019 4:31 AM PDT | | [id number] Page 1 | | CARDIOLOGY CDU [address]/ | | OPS | | [facility] NAME: [facility] | | [place] [address] | | | | DATE OF : 1945 | | | | ORDER NUMBER: [id number] | | EXAM DATE/TIME: 11/05/2008 08:22 A [...] 10 mL of 1% lidocaine solution. A 6-Faroese arterial | | sheath was inserted into the right common femoral artery using a | | modified Seldinger technique. A 6-Faroese pigtail catheter was advanced | | over [...] was exchanged over the guidewire by a 6-Faroese JL4 | | catheter that was advanced over the guidewire under fluoroscopy and | | engaged to the left main artery. Dye was injected into the left coronary | | system, and multiple angiographic pictures of the left coronary system | | were taken in multiple projections. The JL4 catheter was exchanged over | | a guidewire by a 6-Faroese right coronary artery (RCA) Waqar catheter | [...] | A | | P | | ONI/dolly/[id number]/ | | cc: ELDER SURESH MD | | RYAN FREY MD | + + documented in this encounter Visit Diagnoses + + | Diagnosis | + + | Chest pain, unspecified | + + documented in this encounter"
--- OUTSIDE RECORDS SUMMARY | ~2020-02-19 | XMS | Encounter Summary ---
Demographics + + + | Address | [address] | | | [place] [address] | + + + | Home Phone [...] Team Providers + +------+ + | Care Communication Manager Name | Role | Phone | [...] + + | 11/04/ | Procedure | [facility] | | Cardiac | | 2019 | visit | [place] [place] | | resynchronization | | | | [address] | | therapy | | | | [place], [place] | | defibrillator | | | | [address] | | (SYSTEM DEVELOPMENT ENGINEER-D) in place | | | | [phone] | | (Primary Dx) | +--------+ + [...] REMOTEPre-Procedure Diagnose(s): Cardiac resynchroniz ation therapy defibrillator (SYSTEM DEVELOPMENT ENGINEER-D) in place ICD REMOTE INTERROGATION REPORT Name: Jared Abraham PCP: Carla Murphy PA-C : 1945 Primary cardiology provider: Poppy Rodriguez Primary electrophysiology provider: Mary Tipton Device principal network architect: Medtronic Device type: Biventricular Battery Longevity: 3.5 [...] data and rhythm strips, please see osmin se/health type technician entry in the notes section and [...] DR | | | | | | [place] [address] | | | | | | [phone] | | | | | | | [...] defibrillator | | | | | | (SYSTEM DEVELOPMENT ENGINEER-D) in place | | + +--------+ + + + | DEVICE | Routin | 11/05/2019 | Cardiac | Results for this | | INTERROGATION- | e | 8:00 AM | resynchronization | procedure are in the | | REMOTE | | PDT | therapy | results section. | | | | | defibrillator | | | | | | (SYSTEM DEVELOPMENT ENGINEER-D) in place | | + +--------+ + + + | DEVICE | Routin | 11/05/2019 | Cardiac | Results for this | | INTERROGATION- | e | 8:00 AM | resynchronization | procedure are in the | | REMOTE | | PDT | therapy | results section. | | | | | defibrillator | | | | | | (SYSTEM DEVELOPMENT ENGINEER-D) in place | | + +--------+ + + + documented in this encounter Results Device Interrogation - Remote (11/05/2019 8:00 AM PDT) + + + | Narrative | Performed At | + + + | Antonio Vu | [facility] | | KEEGAN Burden 11/10/2019 12:01 PMICD REMOTE INTERROGATION REPORT | | | Name: Jared Abraham PCP: Carla Murphy PA-C : | | | 1945MRN: [id number] Primary cardiology provider: Poppy Beltran | | | Jennifer Primary electrophysiology provider: Mary Tipton Device | | | principal network architect: DealBirdtronic Device type: Biventricular Battery Longevity: | | [...] + + | Cardiac resynchronization therapy defibrillator (SYSTEM DEVELOPMENT ENGINEER-D) in place - Primary | + + documented in this encounter"
--- OUTSIDE RECORDS SUMMARY | ~2020-02-19 | XMS | Encounter Summary ---
Demographics + + + | Address | [address] | | | [place] [address] | + + + | Home Phone [...] Team Providers + +------+ + | Care Spot Welder Body Assembly Name | Role | Phone | + +------+ + | Carla Murphy | PCP | | | PA-C | | | + +------+ + Encounter Details +--------+ + + + + | Date | Type | Department | Care Team | Description | +--------+ + + + + | 10/18/ | Hospital | [facility] | Adonisenstein, | Chronic obstructive | | 2016 | Encounter | [facility] | Sailaja Chiang MD | pulmonary disease, | | | | FUNCTION [address] | | unspecified COPD | | | | [place], | | type ([facility]) | | | | [place] [address] | | | | | | [phone] | | | +--------+ + + + [...] | | (ALDACTONE) 25 mg | Daily. / tab daily | | | | 9 [...] documented as of this encounter Procedure Notes Sailaja Nicholson MD - 10/24/2015 3:44 PM PSTAssociated Order(s): PFT PULMONARY FUNCT ION TESTING ORDERSProcedure(s): PFT PULMONARY FUNCTION TESTING ORDERSPre-Procedure Diagnose( s): Chronic obstructive pulmonary disease, unspecified COPD type (HCC) PULMONARY FUNCTION TESTING METHOD: Spirometry was obtained pre and post administration of inhaled bronchodilator. Lung volumes were not obtained due to claustrophobia. Diffusion capacity was obtained by single breath method and was not corrected for a measured hemoglobin. ATS standards were met. SPIROMETRY: Prior to administration of inhaled bronchodilator, FVC was moderately reduced a t 2.34 L or 52% of predicted. FEV1 was moderately reduced at 1.68 L or 48% of predicted. FEV 1/FVC ratio was normal at 72%. After administration of inhaled bronchodilator, FVC increased by 7 % to 2.50 L or 55% of predicted. FEV1 increased by 9 % to 1.82 L or 52% of predicted. FEV1/FVC ratio was normal at 73%. DIFFUSION CAPACITY: Diffusion capacity was mildly reduced at 21.2 mL/mmHg per minute or 65% of predicted and was not corrected for a measured hemoglobin. IMPRESSION: Spirometry is consistent with moderate restrictive physiology. There was not a significant response to inhaled bronchodilator. Diffusion capacity is mildly reduced and is not corrected for measured hemoglobin. Electronically signed by: Sailaja Nicholson MD 10/24/2015 15:44 [facility] CC: Carla Juarez PA-C documented in t his encounter Plan of Treatment +--------+ + + + + | Date | Type | Specialty | Care Team | Description | +--------+ + + + + | 04/28/ | Office | Cardiology | NormajoshNav Anabela, | | | 2019 | Visit | | MD [address] | | | | | | [place] [address] | | | | | | [phone] | | | | | | | [...] PFT PULMONARY FUNCTION TESTING ORDERS Full PFT ([place] w/BD, lung volumes, diffusion)?: Yes (10/24/2015 3:47 [...] | | Sailaja Nicholson MD 10/24/2015 15:44 [facility] | | | [place] [facility] CC: Carla Juarez PA-C | | [...] | | | | Nebulization, RT Once, Polnia 10/19/15 | | PM PST | | | | | at 1500, For 1 dose, RT will | | | | | | | administer., | | | | | | + +--------+ +--------+------+------+ +---+---+ | | | +---+---+ documented in this encounter"
--- OUTSIDE RECORDS SUMMARY | ~2020-02-19 | XMS | Encounter Summary ---
Demographics + + + | Address | [address] | | | [place] [address] | + + + | Home Phone [...] Team Providers + +------+ + | Care Substation Operator Transforming Name | Role | Phone | + [...] Provider Unknown | | | | | [place], [place] | | | | | | [address] | (Fax) | | | | | [...] DR | | | | | | [place] [address] | | | | | | [phone] | | | | | | | [...]
--- OUTSIDE RECORDS SUMMARY | ~2020-02-19 | XMS | Encounter Summary ---
Demographics + + + | Address | [address] | | | [place] [address] | + + + | Home Phone [...] Providers + +------+ + | Care Senior Technical Analyst Name | Role | Phone | [...] | | | | | cardiomyopat | [place], | [place], [place] | | | | | hy (HCC) | [place] [address] | [address] Phone: | | | | | | Phone: | [phone] | | | | | | [phone] | Fax: | | | | | | Fax: | [phone] | | | | | | [phone] | | + + + + + + + Reason for Visit + + + | Reason | Comments | + + + | Follow-up | | + + + Encounter Details +--------+---------+ + + + | Date | Type | Department | Care Team | Description | +--------+---------+ + + + | 10/21/ | Office | [facility] | Nav Foley, | Non-ischemic | | 2020 | Visit | CARDIOLOGY [place] | [address] | cardiomyopathy (HCC) | | | | [address] | [place] [address] | (Primary Dx) | | | | [place], [place] | [phone] | | | | | [address] | | | | | | [phone] | | | +--------+---------+ + + + [...] 12/06/18 1040 Encounter Date: 12/04/2018 Status: Signed Probate Judge: Nav Foley MD (Physician) Related Notes: Original [...] mg by mouth nightly. Cholecalciferol (VITAMIN D3) 75307 UNITS CAPS Take 5,000 Int'l Units by [...] also deals with sleep apnea, perhaps in [place]. We will see him again in 6 [...] DR | | | | | | [place] [address] | | | | | | [phone] | | | | | | | [...] Non-ischemic | Ordered: 10/22/2019 | | to Margot Congestive | Referral | e | cardiomyopathy [...]
--- OUTSIDE RECORDS SUMMARY | ~2020-02-19 | XMS | Encounter Summary ---
Demographics + + + | Address | [address] | | | [place] [address] | + + + | Home Phone [...] Team Providers + +------+ + | Care Oral And Maxillofacial Surgeon Name | Role | Phone | + +------+ + PCP | Unavailable | + +------+ + Encounter Details +--------+ + + + + | Date | Type | Department | Care Team | Description | +--------+ + + + + | 09/15/ | Hospital | [facility] | Conversion | Pain | | 2015 | Encounter | CONVERSION [address] | Transaction, | | | | | [address] | Provider Unknown | | | | | [place], [place] | [phone] | | | | | [address] | | | | | | [phone] | | | +--------+ + + + [...] DR | | | | | | [facility] [place] [address] | | | | | | [phone] | | | | | | | [...] | Procedure Note | + + | MikeDavid johnson - 04/03/2019 11:51 PM PDT This is a non-reportable procedure | | without a radiologist report and isused for image storage only | + + documented in this encounter Visit Diagnoses + + | Diagnosis | + + | Pain Generalized pain | + + documented in this encounter"
--- OUTSIDE RECORDS SUMMARY | ~2020-02-19 | XMS | Encounter Summary ---
Demographics + + + | Address | [address] | | | [place] [address] | + + + | Home Phone [...] Team Providers + +------+ + | Care Historical Archeologist Name | Role | Phone | + [...] [facility]) | | | | [place], | | | | | | [place] [address] | | | | | | [phone] | | | +--------+ + + + [...] DR | | | | | | [place] [address] | | | | | | [phone] | | | | | | | [...]
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
--- OUTSIDE RECORDS SUMMARY | ~2020-02-19 | XMS | Encounter Summary ---
Demographics + + + | Address | [address] | | | [place] [address] | + + + | Home Phone [...] Providers + +------+ + | Care Senior Service Technician Name | Role | Phone | [...] | | | | | nuclear | HOUSEKEEPING WORKER [address] | MD [address] | | | | | stress test | [address] | BL[address] | | | | | Cardiac | [place] | [place] | | | | | resynchroniz | [facility] [place] | [address] Phone: | | | | | ation | [phone] | [phone] | | | | | therapy | Phone: | Fax: | | | | | defibrillato | [phone] | [phone] | | | | | r (SUPERVISOR METAL FABRICATING-D) in | Fax: | | | | | | place | [phone] | | | | | | Non-ischemic [...] | | | | | | | CT CATH PLMT | | | | | [...] + + | 09/17/ | Surgery | [facility] | Kimmie Wills | CV Cor Angio | | 2020 | | CENTER CV INTRA OP | MD Saravanan [address] | | | | | [address] | BLVD [place], [place] | | | | | [place], [place] | [address] | | | | | [address] | | | | | | [phone] | | | +--------+---------+ + + + [...] - 09/17/2019 5:19 PM PSTAbout 1650 contacted physical laboratory assistant regarding pa marti feeling better and when could patient go. Instructed to have patient ambulate and see how he did. Patient able to ambulate in the room with what he says he normal feels when he s tands up too quickly. Resolved quickly. Patient able to dress with assist. Called back to [facility] lab and agreeable to have patient go home. Reviewed discharge instructions with patient. Patient discharged with all belongings to [facility]. aJesús caldwell RN - 09/17/2019 [...] | | | | | [place] [address] | | | | | | [phone] | | | | | | | [...] | | | | | | (SUPERVISOR METAL FABRICATING-D) in place | | | | | [...] | | | | | | (SUPERVISOR METAL FABRICATING-D) in place | | | | | [...] Testing | 65 - 99 mg/dL | [facility] | | | POC | performed at [facility];[address] | | LABORATORY | | | | [address] [facility];[place], [place] | | | | | | [address] | | | | + + + + + + + + | Specimen | + + | | + + + + + + + | Performing | Address | City/State/Zipcode | Phone Number | | Organization | | | | + + + + + | [facility] | [address] | [place] [address] | [phone] | + + + + + CV [...] with left heart | | | cath ([id number]) Procedure Summary Access site: right radial | [...] | | | | | performed at [facility];[address] | | | | | | [address];[place] | | | | | | [address] | | | | + + + + + + + + | Specimen | + + | | + + + + + + + | Performing | Address | City/State/Zipcode | Phone Number | | Organization | | | | + + + + + | [facility] | [address] | [place] [address] | [phone] | + + + + + CBC [...] [facility] | | | | performed at [facility];[address] | | LABORATORY | | | | [address];[place], [place] | | | | | | [address] | | | | + + + + + + + + | Specimen | + + | Blood | + + + + + + + | Performing | Address | City/State/Zipcode | Phone Number | | Organization | | | | + + + + + | [facility] | [address] | [place] [address] | [phone] | + + + + + POC Glucose (09/17/2019 9:38 AM PST) + + + + + + | Component | Value | Ref Range | Performed | Pathologist | | | | | At | Signature | + + + + + + | Glucose, | 127 (H)Comment: Testing | 65 - 99 mg/dL | [place] | | | POC | performed at [facility];[address] | | LABORATORY | | | | [address];[place] | | | | | | [address] | | | | + + + + + + + + | Specimen | + + | | + + + + + + + | Performing | Address | City/State/Zipcode | Phone Number | | Organization | | | | + + + + + | [facility] | [address] | [place] [address] | [phone] | + + + + + documented in this encounter Visit Diagnoses + + | Diagnosis | + + | Abnormal nuclear stress test Other nonspecific abnormal cardiovascular system | | function study | + + | Cardiac resynchronization therapy defibrillator (SUPERVISOR METAL FABRICATING-D) in place | + + | Non-ischemic [...] + + | Cardiac resynchronization therapy defibrillator (SUPERVISOR METAL FABRICATING-D) in place | + + | Non-ischemic [...] | | | injection ONCE PRN, Starting Wed | | 20 11:50 | Units | [...] | | | Administer over 1 Hours, OPTOELECTRONIC TECHNICIAN, | | AM PST | | | [...]
--- OUTSIDE RECORDS SUMMARY | ~2020-02-19 | XMS | Encounter Summary ---
Demographics + + + | Address | [address] | | | [place] [address] | + + + | Home Phone [...] Team Providers + +------+ + | Care Hearing Aid Assistant Name | Role | Phone | [...] Provider Unknown | | | | | [place], [place] | | | | | | [address] | (Fax) | | | | | [...] DR | | | | | | [place] [address] | | | | | | [phone] | | | | | | | [...]
--- OUTSIDE RECORDS SUMMARY | ~2020-02-19 | XMS | Encounter Summary ---
Demographics + + + | Address | [address] | | | [place] [address] | + + + | Home Phone [...] + + | Author | [facility] | | | and [place] | + + + | Organization | [facility] | | | [...] Team Providers + +------+ + | Care Library Services Coordinator Name | Role | Phone | + +------+ + | Carla Murphy | PCP | | | PA-C | | | + +------+ + Encounter Details +--------+ + + + + | Date | Type | Department | Care Team | Description | +--------+ + + + + | 01/20/ | Hospital | [facility] | Therese Sarabia DO | Hypotension due to | | 2017 - | Encounter | [facility] | [address] | drugs; Non-sustained | | | | CLINICAL DECISION | [place] [address] | ventricular | | 01/21/ | | [address] | [phone] | tachycardia (HCC) | | 2017 | | [place], [place] | | | | | | [address] | | | | | | [phone] | | | +--------+ + + + [...] 0856 Date of Service: 01/21/1752 Status: Signed Cloud Engagement Partner: Beau Rudolph MD (Physician) [facility] Service: Hospitalist Physician Discharge Summary Patient ID: Jared Abraham [id number] y.o. 1945 Admit date: 01/20/2017 Discharge [...] Juarez PA-C [address] [place] [address] Nav Foley MD [address] [place] [address] Dictation and loss prevention associate or software, [employer], used which may contain error for similar [...] Enlarged heart COPD (chronic obstructive pulmonary disease) ([facility]) Pacemaker SALAMATOF (hard of hearing) Hypertension Hyperlipidemia AAA (abdominal aortic aneurysm) ([facility]) MOISÉS (obstructive sleep apnea) 01/21/2017 Past Surgical History Procedure Laterality Date Pacemaker insertion 01/22/2014 Appendectomy Hernia repair Tumor removal head and neck Hand surgery tube put in to drain infection. Was put out for it as a child Aortic endograft N/A 09/23/2014 Procedure: AORTIC - ENDOGRAFT; Surgeon: Vincent Fields MD; Location: [facility] OR/CREATIVE ARTS MUSIC THERAPIST; Ser vice: Vascular; Laterality: N/A; Significant Diagnostic [...] Commonly known as: NASACORT AQ Vitamin D3 62648 units Caps Refills: 0 STOP taking these [...] 0949 Date of Service: 01/21/17943 Status: Addendum Cloud Engagement Partner: Kalpana Bell RN (Registered Nurse) Related Notes: [...] 01/21/17337 Date of Service: 01/21/17337 Status: Signed Cloud Engagement Partner: Stanford Camarillo RPH (Pharmacist) Note ccl 103.3ml/min meds reviewed Pharmacy will follow [facility] 0338 docume nted in this encounter H&P Notes Therese Sarabia DO - 01/21/2017 12:51 AM PDTFormatting of this note might be different from t he original. H&P by Therese Sarabia DO at 01/21/17 005 Author: Therese Sarabia DO Service: Hospitalist Author Type: Physician Filed: 01/21/17 0445 Date of Service: 01/21/1750 Status: Signed Cloud Engagement Partner: Therese Sarabia DO (Physician) [facility] Service: Hospitalist Admission History & Physical Date [...] conditions who presents as a transfer from [facility] with Hypotension and Vtach for 6 seconds. Symptoms began a week ago after increasing his lisinopril to 10 mg at the request of his product development actuary, Dr Foley. Last night when he checked [...] COPD (chronic obstructive pulmonary disease) (HCC) Pacemaker SALAMATOF (hard of hearing) Hypertension Hyperlipidemia AAA (abdominal aortic aneurysm) (HCC) MOISÉS (obstructive sleep apnea) 01/21/2017 Past Surgical History Procedure Laterality Date Pacemaker insertion 01/22/2014 Appendectomy Hernia repair Tumor removal head and neck Hand surgery tube put in to drain infection. Was put out for it as a child Aortic endograft N/A 09/23/2014 Procedure: AORTIC - ENDOGRAFT; Surgeon: Vincent Fields MD; Location: [facility] OR/CREATIVE ARTS MUSIC THERAPIST; Ser vice: Vascular; Laterality: N/A; Allergies Allergen [...] daily. Yes Historical Provider Cholecalciferol (VITAMIN D3) 53300 UNITS CAPS Take by mouth. Indications: once [...] from 2322: Paced rhythm at 93 bpm. MT, QRS, QT, and axis are normal. No [...] 01/21/17239 Date of Service: 01/21/17219 Status: Signed Cloud Engagement Partner: Jeny Tolentino RN (Registered Nurse) Pt SBA to restroom. Steady gate noted. Jeny Tolentino RN 01/21/17239 onver chetna Transaction, Provider Unknown - 01/21/2017 2:02 AM PDT ED Notes by Jeny Tolentino RN at 01/21/17201 Author: Jeny Tolentino RN Service: (none) Author Type: Registered Nurse Filed: 01/21/17201 Date of Service: 01/21/17201 Status: Signed Cloud Engagement Partner: Jeny Tolentino RN (Registered Nurse) Dr. Sarabia at bedside. Jeny Tolentino RN 01/21/17201 onver chetna Transaction, Provider Unknown - 01/21/2017 12:27 AM PDT ED Notes by Jeny Tolentino RN at 01/21/1726 Author: Jeny Tolentino RN Service: (none) Author Type: Registered Nurse Filed: 01/21/1726 Date of Service: 01/21/1726 Status: Signed Cloud Engagement Partner: Jeny Tolentino RN (Registered Nurse) Family at bedside. Jeny Tolentino RN 01/21/1726 onver chetna Transaction, Provider Unknown - 01/20/2017 11:18 PM PDT ED Notes by Jeny Tolentino RN at 01/20/17 2318 Author: Jeny Tolentino RN Service: (none) Author Type: Registered Nurse Filed: 01/20/172317 Date of Service: 01/20/172317 Status: Signed Cloud Engagement Partner: Jeny Tolentino RN (Registered Nurse) Pt assisted to bedside commode. Pt on monitor technician. Jeny Tolentino RN 01/20/172317 ziel Michelle MD - 01/20/2017 11:10 PM PDTFormatting of this note might be different from the or iginal. ED Provider Notes by Oziel Carter MD at 01/20/172309 Author: Oziel Carter MD Service: Emergency Department Author Type: Physician Filed: 01/21/17100 Date of Service: 01/20/172309 Status: Signed Cloud Engagement Partner: Oziel Carter MD (Physician) [facility] Department of Emergency Medicine No flowsheet data [...] the patient he was sent to the [facility] department as opposed to being directly admitted. Troponins were negative at the [facility] facility as well as the remainder of his workup. Patient states that he feels fine at this time. He does not notice baseline blood pressure is. He states that he believes is secondar y to the lisinopril that was restarted in November. Last year but it was causing hypotension an d had been discontinued. Primary Care Doctor: Carla Juarez Past Medical History Diagnosis Date Enlarged heart COPD (chronic obstructive pulmonary disease) (HCC) Pacemaker SALAMATOF (hard of hearing) Hypertension Hyperlipidemia AAA (abdominal aortic aneurysm) (HCC) Past Surgical History Procedure Laterality Date Pacemaker insertion 01/22/2014 Appendectomy Hernia repair Tumor removal head and neck Hand surgery tube put in to drain infection. Was put out for it as a child Aortic endograft N/A 09/23/2014 Procedure: AORTIC - ENDOGRAFT; Surgeon: Vincent Fields MD; Location: [facility] OR/CREATIVE ARTS MUSIC THERAPIST; Ser vice: Vascular; Laterality: N/A; Prior to [...] mouth daily. Historical Provider Cholecalciferol (VITAMIN D3) 27891 UNITS CAPS Take by mouth. Historical Provider [...] transferred here for further evaluation as his product development actuary is here. He is clinical ly stable at this time. We will repeat ECG and troponin. I will have the nurses interrogate his pacer to see if there is any recording of his reported arrhythmia. ECG shows ventricular paced rhythm with occasional PVCs.. Report from [facility] [employer] that the patient had a 6 second [...] from 2322: Paced rhythm at 93 bpm. MT, QRS, QT, and axis are normal. No [...] recognition system. The possibility of "sound alike" loss prevention associate errors, addition and/or deletions may occur. If [...] 01/20/172304 Date of Service: 01/20/172304 Status: Signed Cloud Engagement Partner: Ruby Mercado RN (Registered Nurse) Bed: 05 Expected date: Expected time: Means of arrival: Comments: [facility] onver chetna Transaction, Provider Unknown - 01/20/2017 10:13 PM PDT ED Notes by Ruby Mercado RN at 01/20/172212 Author: Ruby Mercado RN Service: (none) Author Type: Registered Nurse Filed: 01/20/172218 Date of Service: 01/20/172212 Status: Signed Cloud Engagement Partner: Ruby Mercado RN (Registered Nurse) Report from [...] | | | | | [place] [address] | | | | | | [phone] | | | | | | | [...] | | | | | | ACUTE MN Testing | | | | | | performed at [facility] | | | | | | [address];[place], [place] | | | | | | [address] | | | | + + + [...] | | | | performed at [facility];[address] | | LAB | | | | [address];[place] | | | | | | [address] | | | | + + + [...] + + | Historically converted procedure from [facility] environment | EXTERNAL LAB | + [...] | | | | | | ACUTE MN Testing | | | | | | performed at [facility];[address] | | | | | | [address];[place], [place] | | | | | | [address] | | | | + + + [...] | | | | performed at [facility] | | | | | | [facility];[place], [place] | | | | | | [address] | | | | + + + [...] | | | | performed at [facility] | | LAB | | | | [facility];[place], [place] | | | | | | [address] | | | | + + + [...] | | | | | | ACUTE MN Testing | | | | | | performed at [facility] | | | | | | [facility];[place], [place] | | | | | | [address] | | | | + + + [...] | | | Basophils | performed at [facility], [address] | [address] | LAB | | | | [address] [place], | | | | | | [place] [address] | | | | + + + [...] | | | | performed at [facility];[address] | | LAB | | | | [place] [facility];[place], [place] | | | | | | [address] | | | | + + + [...] | | | | performed at [facility];[address] | | LAB | | | | [address];[place] | | | | | | [address] | | | | + + + [...] | | | | performed at [facility];[address] | | LAB | | | | [place] [facility];[place], [place] | | | | | | [address] | | | | + + + [...] | | | Calculated | performed at [facility], [address] | | LAB | | | | [address], | | | | | | [place] [address] | | | | + + + [...] | | | | | at [facility] [place] | | | | | [address];[place] [address] | | | | + + + [...] | | | | performed at [facility];[address] | | | | | | [facility];[place], [place] | | | | | | [address] | | | | + + + [...] | | | Basophils | performed at [facility];[address] | [address] | LAB | | | | [address];[place], [place] | | | | | | [address] | | | | + + + [...] | | | | performed at [facility];[address] | | LAB | | | | [address];[place] | | | | | | [address] | | | | + + + [...] | | | | performed at [facility] | | LAB | | | | [facility];[place], [place] | | | | | | [address] | | | | + + + [...] | | | | performed at [facility];[address] | | LAB | | | | [address];[place], [place] | | | | | | [address] | | | | + + + [...] | | | | | at [facility];[address] [place] [address] | | | | | | [facility];[place] [address] | | | | + + + [...] | | | | | ONLY, -COMPUTER ([id number]), | | | | | | magazine editor Desiree Gutierres | | | | | | (18) on 01/23/2017 8:15:00 | | | | | | AM | | | | + + + + + + + + | Specimen | + + | | + + + + + | Narrative | Performed At | + + + | Historically converted procedure from [facility] Epic environment | EXTERNAL LAB | [...]
--- OUTSIDE RECORDS SUMMARY | ~2020-02-19 | XMS | Encounter Summary ---
Demographics + + + | Address | [address] | | | [place] [address] | + + + | Home Phone [...] | + + +---------+ + | Champ Erniquezzo | ECON | Unknown | | + + +---------+ + | Milichiqui Villavicencio | ECON | Unknown | | + + +---------+ + Care Team Providers + +------+ + | Care Barrel And Receiver Aligner Name | Role | Phone | + +------+ + PCP | Unavailable | + +------+ + Encounter Details +--------+ + + + + | Date | Type | Department | Care Team | Description | +--------+ + + + + | 09/17/ | Hospital | [facility] | Conversion | | | 2015 | Encounter | [facility] | Transaction, | | | | | CLINIC [address] | Provider Unknown | | | | | [address] [place], [place] | | | | | | [address] | | | | | | [phone] | | | +--------+ + + + [...] 1216 Date of Service: 09/17/141215 Status: Signed Station Cashier: Beronica Bonilla RN (Registered Nurse) Pt states he is very sensitive to pain medications. They can make his heart stop onver chetna Transaction, Provider Unknown - 09/17/2014 11:44 AM PST Pre-Procedure Instructions by Beronica Bonilla RN at 09/17/14 1144 Author: Beronica Bonilla RN Service: (none) Author Type: Registered Nurse Filed: 09/17/14 1145 Date of Service: 09/17/141143 Status: Signed Station Cashier: Beronica Bonilla RN (Registered Nurse) AHA Guidelines for non emergent, non cardiac surgery followed. METS score greater than 4. D enies any chest pain, SOB or any other cardiac symptoms. Pt sees Dr. Foley and has a yari r. Last pacemaker check on 07/30/14 which is viewable in [employer] along with last chart note. docume nted in this encounter Plan of Treatment +--------+ + + + + | Date | Type | Specialty | Care Team | Description | +--------+ + + + + | 04/28/ | Office | Cardiology | Nav Foley, | | | 2019 | Visit | | MD [address] | | | | | | [place] [address] | | | | | | [phone] | | | | | | | [...] Mike, Rad Conversion - 04/03/2019 11:51 PM [facility] V[facility]QUE[facility] CHEST 2 VIEW | | FRONTAL AND [...] LAB | | Testing performed at [facility] [place] [address];[place] [address] MRSA PCR | | | NEGATIVE Testing performed at | | | [address];[place] [address] | | + + + + +---------+ [...] | | EXTERNAL | | | | [facility];[address] [place] [address] | | LAB | | | | Blvd;[place] [address] | | | | + + + + + + | Antibody | NEGATIVE | | EXTERNAL | | | Screen | | | LAB | | + + + + + + | Antibody | Testing performed at | | EXTERNAL | | | Screen | [facility];[address] | | LAB | | | | Bl[address];[place] [address] | | | | + + + [...] | | | Patient | performed at [facility];[address] | | LAB | | | | [address];[place], [place] | | | | | | [address] | | | | + + + [...] | | | performed at [facility];[address] | | | | | | [address];[place] | | | | | | [address] | | | | + + + [...] EXTERNAL | | | | performed at [facility], [address] | | LAB | | | | [address], | | | | | | [place] [address] | | | | + + + + + + | Red Blood | 5.03Comment: Testing | 4.20 - 5.70 | EXTERNAL | | | Cells | performed at [facility], [address] | M/uL | LAB | | | Counted | [address], | | | | | | [place] [address] | | | | + + + + + + | Hemoglobin | 15.5Comment: Testing | 13.2 - 17.0 | EXTERNAL | | | | performed at [facility], [address] | g/dL | LAB | | | | [address], | | | | | | [place] [address] | | | | + + + + + + | Hematocrit, | 45.4Comment: Testing | 39.0 - 50.0 % | EXTERNAL | | | POC | performed at [facility], [address] | | LAB | | | | [address], | | | | | | [place] [address] | | | | + + + + + + | MCV | 90.1Comment: Testing | 80.0 - 100.0 fl | EXTERNAL | | | | performed at [facility], [address] | | LAB | | | | [address], | | | | | | [place] [address] | | | | + + + + + + | MCH | 30.8Comment: Testing | 27.0 - 34.0 pg | EXTERNAL | | | | performed at [facility], [address] | | LAB | | | | [address], | | | | | | [place] [address] | | | | + + + + + + | MCHC | 34.2Comment: Testing | 32.0 - 35.5 | EXTERNAL | | | | performed at [facility], [address] | g/dL | LAB | | | | [address], | | | | | | [place] [address] | | | | + + + + + + | RDW-CV | 43.3Comment: Testing | 37 - 53 fl | EXTERNAL | | | | performed at [facility], [address] | | LAB | | | | [address], | | | | | | [place] [address] | | | | + + + + + + | Platelet | 227Comment: Testing | 150 - 400 K/uL | EXTERNAL | | | Count | performed at [facility], [address] | | LAB | | | Plasma | [address], | | | | | | [place] [address] | | | | + + + + + + | MPV | 8.6Comment: Testing | fl | EXTERNAL | | | | performed at [facility], [address] | | LAB | | | | [address], | | | | | | [place] [address] | | | | + + + + + + | Differentia | MANUALComment: Testing | | EXTERNAL | | | l Type | performed at [facility], [address] | | LAB | | | | [address], | | | | | | [place] [address] | | | | + + + + + + | Segmented | 83Comment: Testing | % | EXTERNAL | | | Neutrophils | performed at [facility], [address] | | LAB | | | Manual | [address], | | | | | | [place] [address] | | | | + + + + + + | Lymphocytes | 11Comment: Testing | % | EXTERNAL | | | Manual | performed at [facility], [address] | | LAB | | | | [address], | | | | | | [place] [address] | | | | + + + + + + | Monocytes | 5Comment: Testing | % | EXTERNAL | | | Manual | performed at [facility], [address] | | LAB | | | | [address], | | | | | | [place] [address] | | | | + + + + + + | Eosinophils | 1Comment: Testing | % | EXTERNAL | | | Manual | performed at [facility], [address] | | LAB | | | | [address], | | | | | | [place] [address] | | | | + + + + + + | Absolute | 12.2 (H)Comment: Testing | 1.9 - 7.4 K/uL | EXTERNAL | | | Neutrophils | performed at [facility], [address] | | LAB | | | | [address], | | | | | | [place] [address] | | | | + + + + + + | Absolute | 1.6Comment: Testing | 1.0 - 3.9 K/uL | EXTERNAL | | | Lymphocytes | performed at [facility], [address] | | LAB | | | | [address], | | | | | | [place] [address] | | | | + + + + + + | Absolute | 0.7Comment: Testing | 0 - 0.8 K/uL | EXTERNAL | | | Monocytes | performed at [facility], [address] | | LAB | | | | [address], | | | | | | [place] [address] | | | | + + + + + + | Absolute | 0.1Comment: Testing | 0 - 0.5 K/uL | EXTERNAL | | | Eosinophils | performed at [facility], [address] | | LAB | | | | [address], | | | | | | [place] [address] | | | | + + + + + + | RBC | RBC AND PLT MORPHOLOGY | | EXTERNAL | | | Morphology | APPEAR NORMALComment: | | LAB | | | | Testing performed at | | | | | | [facility], [address] | | | | | | [place] | | | | | | [address] | | | | + + + [...] | | | | | [place] [address] | | | | + + + + + + | K | 4.2Comment: Testing | 3.5 - 4.9 | EXTERNAL | | | | performed at [facility], [address] | mmol/L | LAB | | | | [address], | | | | | | [place] [address] | | | | + + + + + + | Cl | 98 (L)Comment: Testing | 99 - 109 mmol/L | EXTERNAL | | | | performed at [facility], [address] | | LAB | | | | [address], | | | | | | [place] [address] | | | | + + + + + + | CO2 | 31Comment: Testing | 23 - 32 mmol/L | EXTERNAL | | | | performed at [facility], [address] | | LAB | | | | [address], | | | | | | [place] [address] | | | | + + + + + + | Anion Gap | 9Comment: Testing | 5 - 20 mmol/L | EXTERNAL | | | | performed at [facility], [address] | | LAB | | | | [address], | | | | | | [place] [address] | | | | + + + + + + | Glucose, | 115 (H)Comment: Testing | 65 - 99 mg/dL | EXTERNAL | | | Fasting | performed at [facility], [address] | | LAB | | | | [address], | | | | | | [place] [address] | | | | + + + + + + | BUN | 16Comment: Testing | 8 - 25 mg/dL | EXTERNAL | | | | performed at [facility], [address] | | LAB | | | | [address], | | | | | | [place] [address] | | | | + + + + + + | Creatinine | 0.98Comment: Testing | 0.70 - 1.30 | EXTERNAL | | | | performed at [facility], [address] | mg/dL | LAB | | | | [address], | | | | | | [place] [address] | | | | + + + + + + | BUN/Creatin | 16Comment: Testing | | EXTERNAL | | | ine Ratio | performed at [facility], [address] | | LAB | | | [address], | | | | | | [place] [address] | | | | + + + + + + | Calcium | 9.9Comment: NOTE NEW | 8.5 - 10.5 | EXTERNAL | | | | REFERENCE RANGETesting | mg/dL | LAB | | | | performed at [facility], [address] | | | | | | [address], | | | | | | [place] [address] | | | | + + + [...] | | | | | | at [facility], [address] | | | | | | [facility], | | | | | | [place] [address] | | | | + + + [...] + + | [facility]ically [facility] | EXTERNAL LAB | + + + + +---------+ + + | Performing | Address | City/State/Zipcode | Phone Number | | Organization | | | | + +---------+ + + | EXTERNAL LAB | | | | + +---------+ + + documented in this encounter Visit Diagnoses Not on filedocumented in this encounter"
--- OUTSIDE RECORDS SUMMARY | ~2020-02-19 | XMS | Encounter Summary ---
Demographics + + + | Address | [address] | | | [place] [address] | + + + | Home Phone [...] Providers + +------+ + | Care Supervisor Title Name | Role | Phone | + [...] + + | 06/18/ | Documentati | [facility] | Sharron Khna, | Other (end of study) | | 2019 | on | [facility] [place] | Technologist | | | | | [address] | | | | | | [place] | | | | | | [address] | | | | | | [phone] | | | +--------+ + + + [...] DR | | | | | | [place] [address] | | | | | | [phone] | | | | | | | [...]
--- OUTSIDE RECORDS SUMMARY | ~2020-02-19 | XMS | Encounter Summary ---
Demographics + + + | Address | [address] | | | [place] [address] | + + + | Home Phone [...] Team Providers + +------+ + | Care Rides Supervisor Name | Role | Phone | + +------+ + | Carla Murphy | PCP | | | PA-C | | | + +------+ + Encounter Details +--------+ + + + + | Date | Type | Department | Care Team | Description | +--------+ + + + + | 08/17/ | Hospital | [facility] | Therese Sarabia DO | Syncope, unspecified | | 2018 - | Encounter | [facility] | [address] | syncope type; | | | | CARE FLOOR [address] | [place] [address] | V-tach ([facility]) | | 08/19/ | | [address] | [phone] | | | 2017 | | [place], [place] | | | | | | [address] | | | | | | [phone] | | | +--------+ + + + [...] Summaries by Poli Christine MD at 08/19/18 5761 Author: Poli Christine MD Service: (none) Author Type: Physician Filed: 08/19/18 3483 Date of Service: 08/19/18 2378 Status: Signed Orange Grower: Poli Christine MD (Physician) [facility] Service: Hospitalist Discharge Summary Date of [...] No discharge procedures on file. Follow up: [facility] Emergency Department [address] [address] Go to If symptoms worsen Carla Murphy PA-C [address] [place] [address] Schedule an appointment [...] 0 Commonly known as: GLUCOPHAGE Vitamin D3 24691 units Caps Refills: 0 You might also [...] (none) Author Type: Registered Nurse Filed: 08/19/18 6932 Date of Service: 08/19/181445 Status: Signed Orange Grower: Milagros Kirkland RN (Registered Nurse) Discharge paperwork [...] driving patient home. Milagros Winters RN onver chtena Transaction, Provider Unknown - 08/19/2018 6:14 AM PST Nurse Progress Note by Naveen Caldwell RN at 08/19/1814 Author: Naveen Caldwell RN Service: (none) Author Type: Registered Nurse Filed: 12614 Date of Service: 08/19/18613 Status: Signed Orange Grower: Naveen Caldwell, RN (Registered Nurse) Pt having [...] 08/18/182054 Date of Service: 08/18/182045 Status: Signed Orange Grower: Poli Christine MD (Physician) [facility] Service: Hospitalist Progress Note Hospital Day: [...] failure with depressed EF, sta tus post ICD/CHUMMER insertion. Had been on digoxin outpatient. Digoxin [...] Note by Milagros Kirkland RN at 08/18/18 0177 Author: Milagros Kirkland RN Service: (none) Author Type: Registered Nurse Filed: 08/18/18 9022 Date of Service: 08/18/18 3203 Status: Addendum Orange Grower: Milagros Kirkland RN (Registered Nurse) Related Notes: [...] Date of Service: 08/18/18 150 Status: Signed Orange Grower: Milagros Kirkland RN (Registered Nurse) Assumed care. Report from KEEGAN Colvin. onver chetna Transaction, Provider Unknown - 08/18/2018 2:28 PM PST Nurse Progress Note by Marii Garza RN at 08/18/18 142 Author: Marii Garza RN Service: (none) Author Type: Registered Nurse Filed: 08/18/18 1428 Date of Service: 08/18/181427 Status: Signed Orange Grower: Marii Garza RN (Registered Nurse) Patients pain [...] Date of Service: 08/18/18 1306 Status: Signed Orange Grower: Malena Ferro RPH (Pharmacist) Renal Dosing Monitoring: [...] 1113 Date of Service: 08/18/181058 Status: Signed Orange Grower: Yoon Michele RN (Registered Nurse) 08/18/18 1000 [...] discussed discharge planning. Pt resides alone in [place] but is indep wi th all his ADL's. No use of home O2, no dme,no HD. Pt on plavix. Plans to return home Patient's PCP is: Nely Murphy Patient's insurance: medicare/[employer] Coverage concerns: Medication coverage/concerns: Rx Bedside [...] Date of Service: 08/18/18 07 Status: Signed Orange Grower: Alize Rosas RN (Registered Nurse) Patient arrived [...] 08/18/18608 Date of Service: 08/18/18608 Status: Signed Orange Grower: Therese Sarabia DO (Physician) Dr. Roldan consulted documented in this enco unter H&P Notes Therese Sarabia DO - 08/17/2018 10:54 PM PSTFormatting of this note might be different from t he original. H&P by Therese Sarabia DO at 08/17/182253 Author: Therese Sarabia DO Service: Hospitalist Author Type: Physician Filed: 08/18/18 044 Date of Service: 08/17/182253 Status: Signed Orange Grower: Therese Sarabia DO (Physician) [facility] Service: Hospitalist Admission History & Physical [...] past medical history of V. 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 tach a nd syncopal episode in the setting of a XT CHUMMER-D, patient in need of fisheries director evaluation . He reported sudden onset LOC at around 1657 while trying to sit on the toilet, no head tra aissatou but found himself on the floor. After passing out and while going to [facility] ER, he h ad chest [...] factors for DVT/PE: none. Previous cardiac testing: CHUMMER-D. Patient reports episodes of chest pain, fatigue, upset stomach since digoxin started and metoprolol increased 2 week s ago. Those medications prescribed by Dr Chavez. Patient was in his usual state health befor e passing out. Medtronic quick look: parameter lower rate 60 bpm, upper track 140 and upper sensor 140 bpm . Assisted >171 bpm and VF ON >188 bpm. Per RN report CHUMMER program to give a shock if VT is sustained for 30 seconds, patient's VT lasted 27 seconds before he passed out. Medications giving at the [facility] room: Aspirin, morphine, IV fluids, REVIEW OF SYSTEMS As above, a total of 12 systems reviewed, o/w unremarkable Past Medical History Diagnosis Date AAA (abdominal aortic aneurysm) (HCC) COPD (chronic obstructive pulmonary disease) (HCC) Diabetes mellitus (HCC) pre diabetic per PCP Enlarged heart ONEIDA (hard of hearing) Hyperlipidemia Hypertension MOISÉS (obstructive sleep apnea) 01/21/2017 Pacemaker Past Surgical History Procedure Laterality Date AORTIC ENDOGRAFT N/A 09/23/2014 Procedure: AORTIC - ENDOGRAFT; Surgeon: Vincent Fields MD; Location: [facility] OR/[facility]; Serv ice: Vascular; Laterality: N/A; APPENDECTOMY HAND [...] daily. Yes Historical Provider Cholecalciferol (VITAMIN D3) 50765 UNITS CAPS Take 5,000 Int'l Units by [...] the last 72 hours. IMAGING Data from [facility] ER: Chest x-ray impression: shallow [...] amanda n 0.01 x 2 EK:08 from [facility] Normal sinus rhythm at 87 bmp suspect unspecified pacemaker failure. Normal NC and LATESHA Atrial sensed ventricular paced rhythm Normal QRS and [place] 158 ms Abnormal EKG Normal QT and QTc Normal ST/T without acute ischemic changes Interpreted by Jose Luis Varela DO ASSESSMENT & PLAN Principal Problem: V tach (HCC): -Hx of NICC -Preschool Director Dr Chavez and Dr Joy -CHUMMER-D setting high threshold versus failure -We will discontinue digoxin which patient report causing problems -Digoxin level -Preschool Director consultation in the morning -Continue metoprolol [...] Date of Service: 08/18/18 0754 Status: Signed Orange Grower: Efraín Roldan MD (Physician) Consult Orders: 1. Inpatient consult to Cardiology [[id number]] ordered by Therese Sarabia DO at 08/18/18 0608 [facility] Service: Cardiology Initial Consult Note Name of Preschool Teacher'S Assistant: Efraín Roldan MD Date of Admission: 08/17/2018 [...] (HCC) pre diabetic per PCP Enlarged heart ONEIDA (hard of hearing) Hyperlipidemia Hypertension MOISÉS (obstructive sleep apnea) 01/21/2017 Pacemaker Past Surgical History Procedure Laterality Date AORTIC ENDOGRAFT N/A 09/23/2014 Procedure: AORTIC - ENDOGRAFT; Surgeon: Vincent Fields MD; Location: [facility] OR/[facility]; Serv ice: Vascular; Laterality: N/A; APPENDECTOMY HAND SURGERY tube put in to drain infection. Was put out for it as a child HERNIA REPAIR PACEMAKER INSERTION 01/22/2014 TUMOR REMOVAL head and neck MEDICATIONS Home Medications Prescriptions Prior to Admission Medication Sig Dispense Refill Last Dose aspirin 81 MG EC tablet Take 81 mg by mouth daily. Taking Cholecalciferol (VITAMIN D3) 79645 UNITS CAPS Take 5,000 Int'l Units by [...] cardiomyopathy. November 05, 2008. Normal coronaries. 5. ICD/CHUMMER insertion. January 27, 2010. Medtronic. May 09, [...] 08/18/1849 Date of Service: 08/18/1848 Status: Signed Orange Grower: Amanda Tejada RN (Registered Nurse) Family member [...] 08/17/182258 Date of Service: 08/17/182258 Status: Signed Orange Grower: Jhonny Street RN (Registered Nurse) Code cart [...] 0404 Date of Service: 08/17/182241 Status: Signed Orange Grower: Jose Luis Varela DO (Physician) [facility] Department of Emergency Medicine Pre-arrival Provider: Another ED Provider Name: [facility] Pertinent History and Concerns: Hx AICD and AAA repair. had a syncopal episode using the ba throom. Since then he has been having stuttering chest pain. Pacer interrogated which showed 18 seconds of subthreshold VT of 177 bpm (threshold of AICD is 180). Patient's fisheries director s are Dr. Joy and Dr. Chavez [...] any other symptoms at this time. Care LEGAL COLLECTOR was reported. PCP: Carla Murphy Past Medical History Diagnosis Date AAA (abdominal aortic aneurysm) (HCC) COPD (chronic obstructive pulmonary disease) (HCC) Diabetes mellitus (HCC) pre diabetic per PCP Enlarged heart ONEIDA (hard of hearing) Hyperlipidemia Hypertension MOISÉS (obstructive sleep apnea) 01/21/2017 Pacemaker Past Surgical History Procedure Laterality Date AORTIC ENDOGRAFT N/A 09/23/2014 Procedure: AORTIC - ENDOGRAFT; Surgeon: Vincent Fields MD; Location: [facility] OR/[facility]; Serv ice: Vascular; Laterality: N/A; APPENDECTOMY HAND SURGERY tube put in to drain infection. Was put out for it as a child HERNIA REPAIR PACEMAKER INSERTION 01/22/2014 TUMOR REMOVAL head and neck Prior to Admission medications Medication Sig Start Date End Date Taking? Authorizing Provider aspirin 81 MG EC tablet Take 81 mg by mouth daily. Yes Historical Provider Cholecalciferol (VITAMIN D3) 67408 UNITS CAPS Take 5,000 Int'l Units by [...] CV/Resp: Positive for chest pain Negative for eytrurtaa-xl-qbtifh, cough GI: Positive for nausea Negative for [...] Evaluation Imaging Results None Imaging done at [facility] 17:17 Impression: Shallow inspirations. Equivocal congestion failure changes. EK:08 Normal sinus rhythm at 87 bmp suspect unspecified pacemaker failure. Normal NC and LATESHA Atrial sensed ventricular paced rhythm Normal QRS and [place] 158 ms Abnormal EKG Normal QT and QTc Normal ST/T without acute ischemic changes EKG dated 12 unchanged in comparison to todays EKG. Interpreted by Jose Luis Varela DO EKG at : 22:32 Atrial- sensed ventricular paced rhythm with occasional premature ventricular complexes at 74 bmp Normal NC and LATESHA Normal QRS and [place] Normal QT and QTc Normal ST/T without acute ischemic changes EKG dated 08/17/18 unchanged in comparison to todays EKG. Interpreted by Jose Luis Varela DO ED Diagnoses Final diagnoses Syncope, unspecified syncope type V-tach (HCC) Disposition: ED Disposition ED Disposition Condition Comment Admit/Observation Bed request special needs: None Diagnosis?: vtach Follow-up Information Follow up With Specialties Details Why Contact Info [facility] Emergency Department Emergency Medicine Go to If symptoms worsen [address] [address] Carla Murphy PA-C Family Medicine Schedule an appointment as soon as possible for a visit in 1 week For follow up in one week [address] [place] [address] Discharge Medications: Discharge [...] 08/17/182228 Date of Service: 08/17/182228 Status: Signed Orange Grower: Ruby Dangelo RN (Registered Nurse) Bed: 03 Expected date: Expected time: Means of arrival: Comments: Marvin[facility] Dangelo RN 08/17/182228 onver chetna Jose, Provider Unknown - 08/17/2018 9:18 PM PST ED Notes by Ruby Dangelo RN at 08/17/182117 Author: Ruby Dangelo RN Service: (none) Author Type: Registered Nurse Filed: 08/17/182125 Date of Service: 08/17/182117 Status: Signed Orange Grower: Ruby Dangelo RN (Registered Nurse) Report from KEEGAN Shaffer at [facility]: pt states he has been feeling "unwell [...] list documented and verified by pharmacist per [facility]. Arrival to our ER by ground ambulance at 2200. Ruby Dangelo RN 08/17/182125 docume nted in this encounter Miscellaneous Notes Plan of Care - Conversion Transaction, Provider Unknown - 08/19/2018 10:45 AM PST Plan of Care by Milagros Kirkland RN at 08/19/181044 Author: Milagros Kirkland RN Service: (none) Author Type: Registered Nurse Filed: 08/19/181044 Date of Service: 08/19/181044 Status: Signed Orange Grower: Milagros Kirkland RN (Registered Nurse) Problem: Safety [...] 08/19/18118 Date of Service: 08/19/18118 Status: Signed Orange Grower: Naveen Caldwell RN (Registered Nurse) Problem: Pain [...] 08/18/181040 Date of Service: 08/18/181040 Status: Signed Orange Grower: Marii Garza RN (Registered Nurse) Problem: Safety [...] 08/18/18142 Date of Service: 08/18/18142 Status: Signed Orange Grower: Alize Rosas RN (Registered Nurse) Problem: Safety [...] DR | | | | | | [place] [address] | | | | | | [phone] | | | | | | | [...] | | | Fingerstick | performed at [facility];[address] | | LAB | | | | [address];[place], [place] | | | | | | [address] | | | | + + + [...] | | | Fingerstick | performed at [facility];[address] | | LAB | | | | [address];[place], [place] | | | | | | [address] | | | | + + + [...] | | | Fingerstick | performed at [facility];[address] | | LAB | | | | [address];[place], [place] | | | | | | [address] | | | | + + + [...] | | | Fingerstick | performed at [facility];[address] | | LAB | | | | [address];[place] | | | | | | [id number] | | | | + + + [...] Mckeon Conversion - 04/02/2019 4:53 AM PDT FRANCI M CARROTHERSUS CAROTID DOPPLER, | | [id number]/30/2018 10:53 AM HISTORY:73 years. Male. Syncope. Ventricular [...] | | | Fingerstick | performed at [facility];[address] | | LAB | | | [address];[place] | | | | | | [address] | | | | + + + [...] | | | | | | ACUTE [place] Testing | | | | | | performed at [facility];[address] | | | | | | [facility];[place], [place] | | | | | | [address] | | | | + + + [...] | | | Basophils | performed at [facility], [address] | K/uL | LAB | | | | [address], | | | | | | [place] [address] | | | | + + + [...] EXTERNAL | | | | performed at [facility], [address] | uIU/mL | LAB | | | | [address], | | | | | | [place] [address] | | | | + + + [...] | | | | | [place] [address] | | | | + + + [...] EXTERNAL | | | | performed at [facility], [address] | | LAB | | | | [address], | | | | | | [place] [address] | | | | + + + [...] + + | Hemoglobin | 5.5Comment: The [place]ian | 4.0 - 6.0 % | EXTERNAL [...] | | | | | performed at [facility], [address] | | | | | | [facility], | | | | | | [place] [address] | | | | + + + [...] EXTERNAL | | | | performed at [facility];[address] | | LAB | | | | [address];[place], [place] | | | | | | [address] | | | | + + + [...] | | | level | performed at [facility];[address] | ng/mL | LAB | | | | [address];[place], [place] | | | | | | [address] | | | | + + + [...] | | | Calculated | performed at [facility], [address] | | LAB | | | | [address], | | | | | | [place], [place] [address] | | | | + + + [...] | | | | | performed at [facility], [address] | | | | | | [address], | | | | | | [place] [address] | | | | + + + [...] + | [facility]ically [facility] Epic environment | EXTERNAL LAB | [...] | | | Fingerstick | performed at [facility];[address] | | LAB | | | | [address];[place] | | | | | | [address] | | | | + + + [...] | | | | | | ACUTE [place] Testing | | | | | | performed at [facility];[address] | | | | | | [facility];[place], [place] | | | | | | [address] | | | | + + + [...] LAB | | | | performed at [facility];[address] | | | | | | [address];[place], [place] | | | | | | [address] | | | | + + + [...] | | | | | ONLY, -COMPUTER (210), | | | | | | fan mail editor Alyson Booth | | | | | | (22) on 08/19/2018 | | | | | | 2:27:53 AM | | | | + + + + + + + + | Specimen | + + | | + + + + + | Narrative | Performed At | + + + | [facility] | EXTERNAL LAB | + [...]
--- OUTSIDE RECORDS SUMMARY | ~2020-02-19 | XMS | Encounter Summary ---
Demographics + + + | Address | [address] | | | [place] [address] | + + + | Home Phone [...] Team Providers + +------+ + | Care Head Gauge Unit Operator Name | Role | Phone | + +------+ + PCP | Unavailable | + +------+ + Encounter Details +--------+ + + + + | Date | Type | Department | Care Team | Description | +--------+ + + + + | 10/16/ | Hospital | [facility] | Conversion | Pain | | 2015 | Encounter | CONVERSION [address] | Transaction, | | | | | [address] | Provider Unknown | | | | | [place], [place] | [phone] | | | | | [address] | | | | | | [phone] | | | +--------+ + + + [...] | | | | | | [facility] [place] [address] | | | | | | [phone] | | | | | | | [...]
--- OUTSIDE RECORDS SUMMARY | ~2020-02-19 | XMS | Encounter Summary ---
Demographics + + + | Address | [address] | | | [place] [address] | + + + | Home Phone [...] Team Providers + +------+ + | Care Construction Electrician Name | Role | Phone | [...] Provider Unknown | | | | | [place], [place] | | | | | | [address] | (Fax) | | | | | [...] DR | | | | | | [place] [address] | | | | | | [phone] | | | | | | | [...]
--- OUTSIDE RECORDS SUMMARY | ~2020-02-19 | XMS | Encounter Summary ---
Demographics + + + | Address | [address] | | | [place] [address] | + + + | Home Phone [...] Team Providers + +------+ + | Care Revenue Inspector Name | Role | Phone | + +------+ + PCP | Unavailable | + +------+ + Encounter Details +--------+ + + + + | Date | Type | Department | Care Team | Description | +--------+ + + + + | 05/11/ | Hospital | [facility] | Conversion | Pain | | 2015 | Encounter | CONVERSION [address] | Transaction, | | | | | [address] | Provider Unknown | | | | | [place], [place] | [phone] | | | | | [address] | | | | | | [phone] | | | +--------+ + + + [...] | | [facility] [place] [place] [address] | | | | | | [phone] | | | | | | | [...]
--- OUTSIDE RECORDS SUMMARY | ~2020-02-19 | XMS | Encounter Summary ---
Demographics + + + | Address | [address] | | | [place] [address] | + + + | Home Phone | | + + + | Preferred Language | Unknown | + + + | Marital Status | | + + + | Evangelical Affiliation | Unknown | + + + | Race | Unknown | + + + | Ethnic Group | Unknown | + + + Author + + + | Author | [facility] | | | and [place] | + + + | Organization | [facility] | | [...] + +------+ + | Care Director Of Aviation Name | Role | Phone | + [...] Chiang MD | | | | | [place], | | | | | | [place] [address] | | | | | | [phone] | | | +--------+ + + + [...] daily. Okay per patient. Prescription sent to [facility] documented in this encounter Plan of Treatment +--------+ + + + + | Date | Type | Specialty | Care Team | Description | +--------+ + + + + | 04/28/ | Office | Cardiology | Nav Foley, | | | 2019 | Visit | | MD [address] | | | | | | [place] [address] | | | | | | [phone] | | | | | | | | +--------+ + + + + | 04/28/ | Procedure | Cardiology | | | 2019 | visit | | | | +--------+ + + + + documented as of this encounter Visit Diagnoses Not on filedocumented in this encounter"
--- OUTSIDE RECORDS SUMMARY | ~2020-02-19 | XMS | Encounter Summary ---
Demographics + + + | Address | [address] | | | [place] [address] | + + + | Home Phone | | + + + | Preferred Language | Unknown | + + + | Marital Status | | + + + | Temple Affiliation | Unknown | + + + [...] Team Providers + +------+ + | Care Surgical Supervisor Name | Role | Phone | [...] + + | 08/07/ | Telephone | [facility] | Mary Tipton ANP | Patient Concerns | | 2018 | | CARDIOLOGY ERIN | [address] | | | | | [address] | [place], [place] | | | | | [place], [place] | [address] | | | | | [address] | | | | | | [phone] | | | +--------+ + + + [...] this encounter Miscellaneous Notes Telephone Encounter - Mray Tipton ANP - 08/07/2019 4:05 PM [address] [...] [address] | | | | | | [place] [address] | | | | | | [phone] | | | | | | | | +--------+ + + + + | 04/28/ | Procedure | Cardiology | | | | 2019 | visit | | | | +--------+ + + + + documented as of this encounter Visit Diagnoses Not on filedocumented in this encounter
--- OUTSIDE RECORDS SUMMARY | ~2020-02-19 | XMS | Encounter Summary ---
Demographics + + + | Address | [address] | | | [place] [address] | + + + | Home Phone [...] Providers + +------+ + | Care Tool Liaison Name | Role | Phone | + [...] + + | 10/21/ | Refill | [facility] | Nva Foley, | Medication Refill | | 2019 | | CARDIOLOGY [place]ANN[place] | [address] | | | | | [address] | [place] [address] | | | | | [place], [place] | [phone] | | | | | [address] | | | | | | [phone] | | | +--------+--------+ + + + [...] DR | | | | | | [place] [address] | | | | | | [phone] | | | | | | | | +--------+ + + + + | 04/28/ | Procedure | Cardiology | | | | 2020 | visit | | | | +--------+ + + + + documented as of this encounter Visit Diagnoses Not on filedocumented in this encounter"
--- OUTSIDE RECORDS SUMMARY | 2020-02-19 13:24 | XMS ---
PreManage Notification: FRANCI VELÁZQUEZ Security Marketing Operations Coordinator Events No recent Security Events currently on file CRITERIA MET - Group Notification - [facility] - Has Care Guidelines CARE PROVIDERS SEN COLINDRES Physician Instrument Adjuster 04/16/2018-Current PHONE: [phone] [place] has no Care Guidelines for this patient. Care History Medical/Surgical 05/27/2019 [facility] - PATIENT HAS A SUPERVISOR ALUM PLANT DR BAZAN AT [facility]. Josie VISIT COUNT (12 MO.) 5 [facility]. TOTAL 5 NOTE: Visits indicate total known visits. ED/UCC VISIT TRACKING (12 MO.) 02/19/2020 13:21 [facility] Miranda TYPE: Emergency COMPLAINT: - FALL, VOMITING 11/16/2019 08:02 [facility] [place] TYPE: Emergency COMPLAINT: - FLU SYMPTOMS DIAGNOSES: - Viral infection, unspecified - Essential (primary) hypertension - Allergy status to other drugs, medicaments and biological sub - Allergy status to penicillin - jail (current) use of aspirin - Presence of automatic (implantable) cardiac defibrillator - Other terminal press operator (current) drug therapy - Allergy status to narcotic agent status - Acquired absence of other specified parts of digestive tract - Acute pharyngitis, unspecified 09/02/2019 14:24 [facility] [place] TYPE: Emergency COMPLAINT: - SOB DIAGNOSES: - Sleep apnea, unspecified - Dependence on other enabling machines and devices - jail (current) use of oral hypoglycemic drugs - Other [facility] (current) drug therapy - Essential (primary) hypertension - Precordial pain - Allergy status to narcotic agent status - meterman (current) use of aspirin - Allergy status to other drugs, medicaments and biological sub - Chondrocostal junction syndrome [Tietze] - Allergy status to penicillin 07/23/2019 15:43 [facility] [place] TYPE: Emergency COMPLAINT: - BLOOD PRESSURE PROBLEM, DIZZINESS 05/26/2019 14:13 [facility] [place] TYPE: Emergency COMPLAINT: - DIABETIC PROBLEM DIAGNOSES: - Allergy status to penicillin - Essential (primary) hypertension - jail (current) use of aspirin - Hypotension, unspecified - Presence of cardiac pacemaker - Weakness - Allergy status to narcotic agent status - Allergy status to analgesic agent status - Other terminal press operator (current) drug therapy INPATIENT VISIT TRACKING (12 MO.) 07/25/2019 12:20 [facility] [place] TYPE: Medical Surgical COMPLAINT: - SYNCOPE DIAGNOSES: - meterman (current) use of antithrombotics/antiplatelets - meterman (current) use of oral hypoglycemic drugs - [...] Type 2 diabetes mellitus without complications - jail (current) use of aspirin - jail (current) use of aspirin - Other abnormalities of heart beat - Hypothyroidism, unspecified - Chronic systolic (congestive) heart failure - Obstructive sleep apnea (adult) (pediatric) - Allergy status to narcotic agent status - Other terminal press operator (current) drug therapy - Hypothyroidism, unspecified - Peripheral vascular angioplasty status with implants and valarie - Atherosclerotic heart disease of [place] coronary artery witho - meterman (current) use of antithrombotics/antiplatelets - Allergy status to narcotic agent status - Other abnormalities of heart beat - jail (current) use of oral hypoglycemic drugs - Hypertensive heart disease with heart failure - Atherosclerotic heart disease of [place] coronary artery witho - Chronic systolic (congestive) heart failure - Allergy status to other drugs, medicaments and biological sub - Other [place] (current) drug therapy - Syncope and collapse [email or web address]
[2020-02-19] MEDS ORDERED: METOPROLOL SUCC25 MG PO (13:35)
[2020-02-19] MEDS ORDERED: AMIODARONE HCL100 MG PO (13:36)
[2020-02-19] MEDS ORDERED: ZOFRAN4 MG PO (16:52)
[2020-02-19] MEDS ORDERED: PRILOSEC OTC20 MG PO (16:52)
--- NOTE | 2020-02-20 15:37 | EKG ---
[facility] [address] [place] [address] Signed Atrial-sensed ventricular-paced rhythm Abnormal ECG When compared with ECG of 02-SEP-2019 14:33, premature supraventricular complexes are no longer present Vent. rate has decreased BY 12 BPM Confirmed by KATRIN DELA CRUZ MD ([id number]) on 02/20/2020 3:36:52 PM Electronically Signed By: KATRIN DELA CRUZ MD 02/20/20 1537 PATIENT NAME: FRANCI VELÁZQUEZ Electrocardiogram DATE OF : 49 PHYSICIAN: KATRIN DELA CRUZ MD REPORT #: [id number] REPORT IS CONFIDENTIAL AND NOT TO BE RELEASED WITHOUT AUTHORIZATION
== END 2020-02-19 17:55 | disposition home or self-care (01) ==
LOC: ED 13:21
DX: R11.10 Vomiting, unspecified (principal); S00.93XA Contusion of unspecified part of head, initial encounter; G47.00 Insomnia, unspecified; I10 Essential (primary) hypertension; I25.10 Atherosclerotic heart disease of native coronary artery without angina pectoris; E11.9 Type 2 diabetes mellitus without complications; Z88.5 Allergy status to narcotic agent; Z88.8 Allergy status to other drugs, medicaments and biological substances; Z88.0 Allergy status to penicillin; Z79.899 Other long term (current) drug therapy; Z79.02 Long term (current) use of antithrombotics/antiplatelets; Z79.84 Long term (current) use of oral hypoglycemic drugs; Z79.82 Long term (current) use of aspirin; W06.XXXA Fall from bed, initial encounter
CPT/HCPCS: 70450; 80053; 81001; 84484; 85025; 93005; 93010; 96361; 96374; 99284-25; J2405; J7030

== ENCOUNTER 2020-02-20 10:31 | Inpatient (IN) | payer MEDICARE, OTHER ==
[~2020-02-20] VITALS: Ht 177.8 cm; Wt 100.7 kg
--- OUTSIDE RECORDS SUMMARY | ~2020-02-20 | XMS | Encounter Summary ---
Demographics + + + | Address | [address] | | | [place] [address] | + + + | Home Phone | | + + + | Preferred Language | Unknown | + + + | Marital Status | | + + + | Amish Affiliation | Unknown | + + + | Race | Unknown | + + + | Ethnic Group | Unknown | + + + Author + + + | Author | [facility] | | | and [place] | + + + | Organization | [facility] | | | [...] Team Providers + +------+ + | Care Recreation Program Specialist Name | Role | Phone | + +------+ + | Carla Murphy | PCP | | | PA-C | | | + +------+ + Encounter Details +--------+ + + + + | Date | Type | Department | Care Team | Description | +--------+ + + + + | 09/04/ | Documentati | [facility] | Mary Tipton ANP | | | 2020 | on | CARDIOLOGY [place] | [address] | | | | | [address] | [place], [place] | | | | | [place], [place] | [address] | | | | | [address] | | | | | | [phone] | | | +--------+ + + + [...] | +--------+ + + + + | 02/24/ | Procedure | Cardiology | | | | 2019 | visit | | | | +--------+ + + + + | 04/28/ | Office | Cardiology | Nav Foley, | | | 2019 | Visit | | MD [address] | | | | | | [place] [address] | | | | | | [phone] | | | | | | | | +--------+ + + + + | 04/28/ | Procedure | Cardiology | | | | 2019 | visit | | | | +--------+ + + + + documented as of this encounter Visit Diagnoses Not on filedocumented in this encounter"
--- OUTSIDE RECORDS SUMMARY | ~2020-02-20 | XMS | Encounter Summary ---
Demographics + + + | Address | [address] | | | [place] [address] | + + + | Home Phone | | + + + | Preferred Language | Unknown | + + + | Marital Status | | + + + | Gnosticism Affiliation | Unknown | + + + | Race | Unknown | + + + | Ethnic Group | Unknown | + + + Author + + + | Author | [facility] | | | and [place] | + + + | Organization | [facility] | | | and [...] Team Providers + +------+ + | Care Ornamental Metal Erector Apprentice Name | Role | Phone | + [...] + + | 06/04/ | Office | [facility] | Nav Foley, | Palpitations | | 2019 | Visit | CARDIOLOGY [place] | MD [address] | (Primary Dx) | | | | [address] | [place] [address] | | | | | [place], [place] | [phone] | | | | | [address] | | | | | | [phone] | | | +--------+---------+ + + + [...] 12/06/18 1040 Encounter Date: 12/04/2018 Status: Signed Pension Manager: Nav Foley MD (Physician) Related Notes: Original [...] mg by mouth nightly. Cholecalciferol (VITAMIN D3) 86134 UNITS CAPS Take 5,000 Int'l Units by [...] DR | | | | | | [place] [address] | | | | | | [phone] | | | | | | | [...]
--- OUTSIDE RECORDS SUMMARY | ~2020-02-20 | XMS | Encounter Summary ---
Demographics + + + | Address | [address] | | | [place] [address] | + + + | Home Phone | | + + + | Preferred Language | Unknown | + + + | Marital Status | | + + + | Hindu Affiliation | Unknown | + + + | Race | Unknown | + + + | Ethnic Group | Unknown | + + + Author + + + | Author | [facility] | | | and [place] | + + + | Organization | [facility] | | | and [place] | + + + | Address | Unknown | + + + | Phone | Unavailable | + + + Support + + +---------+ + | Name | Relationship | Address | Phone | + + +---------+ + | Champ Abraham | ECON | Unknown | | + + +---------+ + | Milichiqui Oquendow | ECON | Unknown | | + + +---------+ + Care Team Providers + +------+ + | Care Appliance Painter And Refinisher Name | Role | Phone | + +------+ + | Carla Murphy | PCP | | | PA-C | | | + +------+ + Reason for Visit + +--------+ + | Reason | Onset | Comments | | | Date | | + +--------+ + | Cardiac Problem | 11/13/ | | | | 2019 | | + +--------+ + Encounter Details +--------+ + + + + | Date | Type | Department | Care Team | Description | +--------+ + + + + | 07/02/ | Telephone | [facility] | Constantin Chavez, | Cardiac Problem | | 2018 | | CARDIOLOGY [place] | [address] | | | | | [address] | [facility], | | | | | [place], [place] | [place] [address] | | | | | [address] | [phone] | | | | | [phone] | | | +--------+ + + + [...] this encounter Miscellaneous Notes Telephone Encounter - Constantin Chavez MD - 07/02/2019 1:21 PM PSTPatient had rapid rates of almost 200 bpm on his device evaluation. He apparently was off of metoprolol for time a nd then it was recently resumed at a low dose. He needs to be on more medication for AV nod e blocking ability. If he cannot tolerate metoprolol, try switching to bisoprolol. He appa rently is "allergic" to digoxin. I left a message on his answering machine to call me back. We will discuss options. P M PSTdocumented in this encounter Plan of Treatment +--------+ + + + + | Date | Type | Specialty | Care Team | Description | +--------+ + + + + | 07/08/ | Procedure | Cardiology | | | | 2019 | visit | | | | +--------+ + + + + | 04/28/ | Office | Cardiology | Nav Foley, | | | 2019 | Visit | | MD [address] | | | | | | [place] [address] | | | | | | [phone] | | | | | | | | +--------+ + + + + | 04/28/ | Procedure | Cardiology | | | | 2019 | visit | | | | +--------+ + + + + documented as of this encounter Visit Diagnoses Not on filedocumented in this encounter
--- OUTSIDE RECORDS SUMMARY | ~2020-02-20 | XMS | Encounter Summary ---
Demographics + + + | Address | [address] | | | [place] [address] | + + + | Home Phone | | + + + | Preferred Language | Unknown | + + + | Marital Status | | + + + | Latter Day Affiliation | Unknown | + + + [...] Team Providers + +------+ + | Care Classified Ad Clerk Name | Role | Phone | + [...] + + | 07/30/ | Office | [facility] | Mary Tipton ANP | Non-ischemic | | 2019 | Visit | CARDIOLOGY [place] | [address] | cardiomyopathy (HCC) | | | | [address] | [place], [place] | (Primary Dx); | | | | [place], [place] | [id number] | Non-sustained | | | | [address] | | ventricular | | | | [phone] | | tachycardia (HCC); | | | | | | Cardiac | | | | | | resynchronization | | | | | | therapy | | | | | | defibrillator | | | | | | (BRICK YARD HAND-D) in place; | | | | | [...] SANTI[place] ONCE WE HAVE THE RECORDS FROM [facility] documented in this encounter Progress Notes Mary Tipton ANP - 07/30/2019 3:15 PM PST ELECTROPHYSIOLOGY OUTPATIENT FOLLOW UP PATIENT NAME: Jared Abraham : 1945: AGE: 73 y.o. (home) : PRIMARY CARE: Carla Murphy PA-C Requesting Physician: No referring provider defined for this encounter. Plan SUMMARY OF EP RECOMMENDATIONS Continue current device settings, as appropriate device function Request records from [facility] for hospital stay 07/23/2019-07/28/2019 and TTE from [...] and interpreted reveals -BiV pacing HR 83, NV 172, QR SD 154, QTC 509 Greater than 45 minutes spent with patient and/or family. Greater than 25 minutes spent in counseling and education on cardiomyopathy, NSVT, amiodarone. EP PROBLEMS ADDRESSED AT TODAY'S VISIT Problem List Cardiac resynchronization therapy defibrillator (BRICK YARD HAND-D) in place Overview History of nonischemic cardiomyopathy, NYHA class II, status post implantation of a MDT C RT-D by Dr. Chiang in January 2010. Generator change by Dr. Delarosa in 2014 viva xt BRICK YARD HAND D MDT number [id number].Patient has a 5076 atrial lead Medtronic. 6947 [...] at the time of his hospitalization at [facility]. Non-ischemic cardiomyopathy Overview EF 35-40%, class 2-3 [...] recent stress testing. Request echo results from [facility]. Will discuss next steps with Dr. Santiago [...] 04/15/2018: Admitted and treated for TIA at [facility] with consult form stroke team at [facility]. noted moderate stenosis of left vertebral artery at V1 and V2 segments, dysarthria, Exposure to secondhand smoke 07/21/2019 Note Last Updated: 07/21/2019 Goes to [facility] almost nightly. Chronic restrictive lung disease 07/21/2019 DM II (diabetes mellitus, type II), controlled (HCC) 08/18/2018 History of ventricular tachycardia 08/17/2018 HTN (hypertension) 08/17/2018 Syncope and collapse 08/17/2018 Morbid obesity (HCC) 07/10/2017 Note Last Updated: 03/12/2019 Weight loss was strongly encouraged. He needs to get involved in an exercise program. 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 Cardiac resynchronization therapy defibrillator (BRICK YARD HAND-D) in place 01/21/2017 Note Last Updated: 07/30/2019 History of nonischemic cardiomyopathy, NYHA class II, status post implantation of a MDT C RT-D by Dr. Chiang in January 2010. Generator change by Dr. Delarosa in 2014 viva xt BRICK YARD HAND D MDT number [id number].Patient has a 5076 atrial lead Medtronic. 6947 [...] at the time of his hospitalization at [facility]. Non-sustained ventricular tachycardia (HCC) 01/21/2017 Note Last [...] recent stress testing. [facility] echo results [facility]. Will discuss next steps with Dr. Santiago [...] IV fluid resuscitation. Will request records from [facility] for further evaluation. He denies [...] Patient says he tolerated morphine at [facility] Meperidine Anaphylaxis and Other (See Comments) Heart stops 08/18/18 Patient says he tolerated morphine at [facility] Orphenadrine Anaphylaxis and Other (See Comments) Heart stops 08/18/18 Patient says he tolerated morphine at [facility] Percodan [Oxycodone] Anaphylaxis Amiodarone Other (See Comments) [...] SANTIAGO ONCE WE HAVE THE RECORDS FROM [facility] Elisha Chakraborty CMA - 07/30/2019 3:15 PM PSTShruthi BUNN Note- Electrophysiology Patient ID: Jared Abraham [...] DR | | | | | | [place] [address] | | | | | | [phone] | | | | | | | [...] | | | | | by [facility] Read Only, | | | | | | [facility] ([id number]), | | | | | | food editor Victorialacey Darwin | | | | | | ([id number]) on 07/30/2019 | | | | | [...] + + | Cardiac resynchronization therapy defibrillator (BRICK YARD HAND-D) in place | + + | Orthostatic hypotension | + + documented in this encounter
--- OUTSIDE RECORDS SUMMARY | ~2020-02-20 | XMS | Encounter Summary ---
Demographics + + + | Address | [address] | | | [place] [address] | + + + | Home Phone | | + + + | Preferred Language | Unknown | + + + | Marital Status | | + + + | Voodoo Affiliation | Unknown | + + + | Race | Unknown | + + + | Ethnic Group | Unknown | + + + Author + + + | Author | [facility] | | | and [place] | + + + | Organization | [facility] | | | [...] Team Providers + +------+ + | Care Care Team Coordinator Scheduler Name | Role | Phone | + [...] | | | | | | [address] [place], [place] | | | | | | [address] | | | | | | [phone] | | | +--------+ + + + [...] f rom the original. Referral Referral # [id number] Referral Information Referral # Creation Date Referral Status Status Update [id number] 01/21/2016 Authorized 01/24/2016:Status History. Status Reason Referral Type Referral Reasons Referral Class No Approval Necessary - Patient Tracking Evaluate & Treat none Outgoing To Specialty To Provider To Location/POS To Department none none [facility] none Vendor Referred By By Location/POS By Department none Sailaja Nicholson none [facility] Priority Start Date Expiration Date Referral Entered By Routine 01/21/2016 07/19/2016 LYNDSAY LYNN Visits Requested Visits Authorized Visits Completed Visits Scheduled 1 1 Procedure Information Procedure Modifiers Provider Requested Approved 53524 (CPT) - [place] OFFICE OUTPATIENT VISIT 25 MINUTES 1 1 [...] To [address] 10/18/2012 BENJA BELCHER [address] Subscriber Name Subscriber Date Member ID FRANCI VELÁZQUEZ 1945 [id number] Guarantor Name (ID) Guarantor Date Guarantor Address Guarantor Type FRANCI VELÁZQUEZ ([id number]) 1945 [address] [place] [address] [employer] LIFE [employer] - [employer] [place] Payor Plan Insurance Group Employer/Plan Group [employer] [place] PLAN G Payor Plan Address Payor Plan Phone Number Effective From Effective To [address] 10/18/2014 GIA Parker [address] Subscriber Name Subscriber Date Member ID FRANCI VELÁZQUEZ 1945 [id number] Guarantor Name (ID) Guarantor Date Guarantor Address Guarantor Type FRANCI VELÁZQUEZ ([id number]) 1945 [address] [place] Personal/[place] [address] Referral Notes Type Date User General 01/31/2016 [...] Date User General 01/24/2016 1035 ASHOK DUARTE Summary ??> APPROVED> [place]> CONTINUITY OF CARE> [facility] Note APPROVED New - Scheduling Minimum Data Set | Provider Notes: | Payer: [facility] SUPP PLAN G | Subscriber Name: Self | & [id number] | Auth ID: Not required by payer | CPT Provided? Yes | Dx Code Provided? | Additional Contact Info: - NO ABN REQUIRED PER MED ASSETS CODE [facility] - NO PA REQUIRED. FOLLOWS GUIDELINES PER CALL TO BRIT[facility]. [phone] Type Date User General 01/21/2016 1645 LYNDSAY LYNN Note Referral to [facility] for continued care documented in [...] | | | | | [place] [address] | | | | | | [phone] | | | | | | | | +--------+ + + + + | 04/28/ | Procedure | Cardiology | | | | 2020 | visit | | | | +--------+ + + + + documented as of this encounter Visit Diagnoses Not on filedocumented in this encounter"
--- OUTSIDE RECORDS SUMMARY | ~2020-02-20 | XMS | Encounter Summary ---
Demographics + + + | Address | [address] | | | [place] [address] | + + + | Home Phone | | + + + | Preferred Language | Unknown | + + + | Marital Status | | + + + | Restorationist Affiliation | Unknown | + + + | Race | Unknown | + + + | Ethnic Group | Unknown | + + + Author + + + | Author | [facility] | | | and [place] | + + + | Organization | [facility] | | | [...] Team Providers + +------+ + | Care Pamphlet Distributor Name | Role | Phone | + [...] + + | 09/30/ | Telephone | [facility] | Mary Tipton ANP | Appointment | | 2020 | | CARDIOLOGY [place] | [address] | | | | | [address] | [place], [place] | | | | | [place], [place] | [address] | | | | | [address] | | | | | | [phone] | | | +--------+ + + + [...] | | | | | [place] [address] | | | | | | [phone] | | | | | | | | +--------+ + + + + | 04/28/ | Procedure | Cardiology | | | | 2019 | visit | | | | +--------+ + + + + documented as of this encounter Visit Diagnoses Not on filedocumented in this encounter"
--- OUTSIDE RECORDS SUMMARY | ~2020-02-20 | XMS | Encounter Summary ---
Demographics + + + | Address | [address] | | | [place] [address] | + + + | Home Phone | | + + + | Preferred Language | Unknown | + + + | Marital Status | | + + + | Voodoo Affiliation | Unknown | + + + | Race | Unknown | + + + | Ethnic Group | Unknown | + + + Author + + + | Author | [facility] | | | and [place] | + + + | Organization | [facility] | | | [...] Providers + +------+ + | Care Desizing Machine Operator Name | Role | Phone | [...] + + + | Authorized | | | Diagnoses | Jennifer | [facility] | | | | | | [facility] | | | | | Non-ischemic | [employer] INST[address] | [address] | | | | | | [address] | [place] | | | | | cardiomyopat | SATINDER F | [place] | | | | | hy (HCC) | [place], [place] | [address] | | | | | Cardiac | [address] | Phone: | | | | | resynchroniz | Phone: | [phone] | | | | | ation | [phone] | Fax: | | | | | therapy | Fax: | [phone] | | | | | defibrillato | [phone] | | | | | | r ([employer]SE [employer]ORER-D) in | | | | | | | place | | | | | | | Non-sustaine | | | | | | | d | | | | | | | ventricular | | | | | | | tachycardia | | | | | | | (HCC) | | | | | | | History of | | | | | | | ventricular | | | | | | | tachycardia | | | | | | | S/P AAA | | | | | | | repair | | | | | | | Procedures | | | | | | | ECHO | | | | | | | Complete | | | + +--------+ + + + + Reason for Visit + + + | Reason | Comments | + + + | Follow-up, Office | Monitor done | | Visit | | + + + Encounter Details +--------+---------+ + + + | Date | Type | Department | Care Team | Description | +--------+---------+ + + + | 07/21/ | Office | [facility] | Poppy Rodriguez | Non-ischemic | | 2019 | Visit | CARDIOLOGY [place] | [address] | cardiomyopathy (HCC) | | | | [address] | [place] | (Primary Dx); | | | | [address] | [place] [address] | Cardiac | | | | [place] | [phone] | resynchronization | | | | [address] | | therapy | | | | [phone] | | defibrillator | | | | | | (GREENHOUSE LABORER-D) in place; | | | | | | Non-sustained | | | | | | ventricular | | | | | | tachycardia (HCC); | | | | | | History of | | | | | | ventricular | | | | | | tachycardia; | | | | | | Essential | | | | | | hypertension; S/P | | | | | | AAA repair; MOISÉS | | | | | | (obstructive sleep | | | | | | apnea); Dyspnea on | | | | | | exertion; Chronic | | | | | | restrictive lung | | | | | | disease; Controlled | | | | | | type 2 diabetes | | | | | | mellitus without | | | | | | complication, | | | | | | without long-term | | | | | | current use of | | | | | | insulin (HCC); | | | | | | Encounter for | | | | | | monitoring diuretic | | | | | | therapy; History of | | | | | | TIA (transient | | | | | | ischemic attack); | | | | | | Exposure to | | | | | | secondhand smoke | +--------+---------+ + + + Social History [...] + + + | Blood Pressure | 98/52 | 07/21/2019 3:24 PM | | | | | PST | | + + + + + | Pulse | 108 | 07/21/2019 3:24 PM | | | | | PST | | + + + + + | Temperature | - | - | | + + + + + | Respiratory Rate | - | - | | + + + + + | Oxygen Saturation | 94% | 07/21/2019 3:24 PM | | | | | PST | | + + + + + | Inhaled Oxygen | - | - | | | Concentration | | | | + + + + + | Weight | 108.5 kg (239 lb 4.8 | 07/21/2019 3:24 PM | | | | oz) | PST | | + + + + + | Height | 177.8 cm (5' 10") | 07/21/2019 3:24 PM | | | | | PST | | + + + + + | Body Mass Index | 34.34 | 07/21/2019 3:24 PM | | | | | PST | | + + + + + documented in this encounter Patient Instructions Patient Instructions Poppy Rodriguez FNP - 07/21/2019 3:30 PM PST I also ordered you an Echo to be performed at [facility] in September I made these changes to medications : stop metoprolol XL 12.5 mg , and then next day start Bisoprolol 2.5 mg just before you go to sleep . Take it for 2 weeks, then increase to 5 mg nightly. Try to take two of magnesium pills daily, but if to much, try at least every other day. See Mary as scheduled on jul [address] Foley in october See me back in August documented in this encounter Progress Notes Poppy Rodriguez FNP - 07/21/2019 3:30 PM PSTFormatting of this note might be differe nt from the original. Date of visit: 07/21/2019 Primary Care Physician: Caral Murphy PA-C CHIEF COMPLAINT: Chief Complaint Patient presents with Follow-up, Office Visit Monitor done HISTORY OF PRESENT ILLNESS: Mr. Jared Abraham , who goes by Lizbeth, is a 73 year old man who is here today to foll ow up on reports from his device of rapid ventricular rate noted by Dr. Chavez on July 02 , and he suggested switching him to bisoprolol, or increased dose of metoprolol for AV minna blocking ability. He noted he was "allergic" to digoxin He has previously been seen by Dr. Reynolds and Dr. Foley and last seen by Dr. Reynolds in A ugust 2018, and was consulted by Dr. Roldan during his hospital admission on August 17, 018. He has now established again with Dr. Foley is his primary unattended ground sensor specialist, and last seen by him 06/04/2019 when he ordered him a 30-day event monitor, and restarted his metoprolol a t 12.5 mg daily, and continued to encourage him to get treatment for his sleep apnea Today, I reviewed all previous documentation available to me in electronic medical [address] and from external sources. He has a history of Ischemic cardiomyopathy with angiogram performed in October 2008 showin g normal coronaries, history of ventricular tachycardia with insertion of GREENHOUSE LABORER-D in January 2010 and most recent generator change in April 2015, hypertension, hyperlipidemia, history o f abdominal aortic aneurysm repair in September 2014, TIA 03/2018, COPD, and obstructive sleep apnea and intolerant of CPAP, and uses nocturnal oxygen. He has previously been intolerant of spironolactone, and lisinopril, and carvedilol, Digo sonja,and amiodarone His current and previous testing and procedures are detailed below He was last admitted to the hospital August 17, 2018 after an episode of syncope, and h is EKG showed frequent PVCs, and his ICD had shown one episode of sustained ventricular tach ycardia lasting for 27 seconds, and no therapy was delivered. Dr. Roldan switched him to m etoprolol succinate 25 mg once daily, stopped his to digoxin, started him on amiodarone 400 mg bid for one week which he then decrease to 400 mg daily and felt there is no need to repe at an echo or stress test. I saw him last on October 28, 2018 to follow-up with him on response to diuretic, as he had several Events noted from his [employer]HOUSE [employer]ER-D device on August 30, September 24 and October 07 of fluid overload , and increased his furosemide to 40 mg daily as he still appeared to be f luid overloaded, reinforced teaching on low-sodium diet, adequate hydration, and ordered a B MP to be performed prior to seeing Dr. Foley in November. He followed up with Dr. Foley on December 04 who stopped his metoprolol and spironolactone, t ried carvedilol 3.125 mg twice daily with lisinopril once a day In between doses Of carvedi lol, and noted he still had uncorrected sleep apnea. He was seen emergency room on May 26 at [facility], and note reviewed and documen patricia symptoms of weakness, nausea, and presyncope. His systolic blood pressure range was 85- 205 in the first 2 hours of his ER admission, and he was discharged with a blood pressure 12 / but note that his O2 sat with higher blood pressure was 90, and his pulse was 75 his la bs overall were fairly normal except for magnesium was only 1.9 his chest x-ray was negative showing no acute pathology and CT of his chest with contrast documented no pulmonary emboli sm, cardiomegaly, mild interstitial pulmonary edema and basilar atelectasis, and they stoppe d his metoprolol. He saw for follow up June 04, when he still had low blood pressure ,and kathy berry restarted metoprolol 12.5 mg twice daily. Today he reports he is only taking metoprolol XL 12.5 mg once daily when he gets up, wh ich is about 1:00 in the afternoon, as he normally goes to bed between 2 and 4 am. He also reports ongoing palpitations, mild pedal edema, dyspnea with exertion, and occasional orthos tatic lightheadedness when he first gets up in the morning. He denies any chest pain or syncope, or any signs or symptoms of stroke or TIA. He has apurva y erratic sleep habits, as he [place] most nights at around midnight, and will stay to 2 or 3 in the morning, and then go to bed. He reports he has been compliant with sodium and fluid restriction and drinking about 30 -40 ounces of fluid daily. He notices that he runs out of energy quickly, and has poor balance, and uses a walke r for ambulation. His sleep apnea continues not to be corrected, and he is not interested in pursuing CPAP a ny further. He reports his last sleep study and attempted CPAP was in 2017, and he did try desensitizing exercises by wearing CPAP in the day to help get over his claustrophobia, but he was never successful. He reports he has had some relief wearing oxygen at night, but sti ll wakes up gasping and short of breath on occasion. he only drinks diet Pepsi very occasionally. He reports he drinks no caffeine, and also denies any history of smoking, and denies any use of alcohol, or recreational or illicit dr nguyen. He was diagnosed with type II diabetes last year 09/2017,, and has made considerable effo rt to improve his diet, lose weight, and his A1c and he has maintained a weight loss of 40 pounds as he previously weighed 269 pounds in August 2017. He brought his medication bottles to the clinic today, and personally reviewed by me. REVIEW OF SYSTEMS: Negative except for pertinent items noted in HPI. Constitutional: Denies fatigue or unexplained weight loss. Appetite is good. Intentional weight loss of over 40 pounds, previously weighed 269 pounds 08/2017 Denies night sweats f heber or chills HENT: Denies nosebleeds. Denies hearing problems. Denies dysphagia Eyes: Denies visual disturbance or double vision. Respiratory/Sleep::Restrictive lung disease .elevated left hemidiaphragm and had a sniff te st which did not show paralysis Denies cough and shortness of breath. Denies hemoptysis or excessive sputum production. Positive for sleep apnea, intolerant to CPAP, uses nocturnal oxygen.Denies orthopnea, occasional PND. Poor sleep habits: Goes to the real trends from midn ight-3 AM, usually goes to [...] or ill icit drug use.Drinking About 30- 4 0 0z of water, seldom drinks soda now, No coffee or tea. Exercises rarely due to poor activity tolerance. Lives in [place]. , lost his fiancee in 2001 when she in a car crash after being hit by distracted vending route driver on a cell phone Outpatient Medications Prior to Visit Medication Sig Dispense Refill aspirin 81 mg EC tablet Take 81 mg by mouth Daily. atorvaSTATin (LIPITOR) 20 mg tablet Take 20 mg by mouth nightly. cholecalciferol (CHOLECALCIFEROL) 5000 units TABS Take 5,000 Int'l Units by mouth daily . clopidogrel (PLAVIX) 75 mg tablet Take 75 mg by mouth daily. furosemide (LASIX) 20 mg tablet Take 20 mg by mouth Daily. levothyroxine (SYNTHROID) 88 mcg tablet Take one tablet daily loratadine (CLARITIN) 10 mg tablet Take 10 mg by mouth daily. MAGNESIUM PO Take 250 mg by mouth daily. metFORMIN (GLUCOPHAGE-XR) 500 mg 24 hr tablet Take 1 tablet by mouth daily. metoprolol succinate (TOPROL-XL) 25 mg 24 hr tablet Take 12.5 mg by mouth Daily. No facility-administered medications prior to visit. PHYSICAL EXAM: Wt Readings from Last 3 Encounters: 07/21/19 108.5 kg (239 lb 4.8 oz) 06/04/19 109.5 kg (241 lb 6.4 oz) 07/10/17 121.5 kg (267 lb 14.4 oz) Temp Readings from Last 3 Encounters: No data found for Temp BP Readings from Last 3 Encounters: 07/21/19 98/52 06/04/19 102/50 07/10/17 108/54 Pulse Readings from Last 3 Encounters: 07/21/19 108 06/04/19 (!) 31 07/10/17 94 Vital signs: 10/28/2018: WT: 239 LB: BP: [...] or wheezing noted, respirations unl abored HEART: GREENHOUSE [employer]ER-D site to CHIKA, stable to palpation, well [...] Component Value Date BNP 113 (H) 01/21/2017 No results found for: TOTEPI CARDIAC PROCEDURES/IMAGING Last angiogram: 11/05/2008: Normal coronaries, consistent with nonischemic cardiomyopathy E F 15-20 percent.. VASCULAR TESTING AND PROCEDURES Carotid ultrasound 08/18/2018: Right ICA: Grade 2,<50%. Intimal common carotid artery thi ckening and plaque in the bulb. Left ICA: Grade 2, l<50%. Intimal common carotid artery thi ckening and minimal plaque at the bulb. Vertebral arteries:normal antegrade flow and veloci ties bilaterally Admitted 820 03/06/2018 TIA with moderate stenosis of left vertebral artery at V1 and V2 seg ments, dysarthria, CTA head and neck contrast 04/15/2018: No intracranial proximal arterial stenosis/occlusion , aneurysm, or AV malformation. Distal left vertebral artery is small and essentially termi nates in left PICA. Distal segment are difficult to evaluate small distal branch high-grade stenosis or occlusion cannot be excluded. No intracranial saccular aneurysms are identifie d GREENHOUSE [employer]ER-D Implant : MDT GREENHOUSE LABORER-D by Dr. Martinez. in January 2010., Generator change by Dr. Delarosa in viva xt GREENHOUSE LABORER D MDT number [id number].Patient has a 5076 atrial lead Medtronic. 6947 Sprin t Quattro Medtronic RV lead and 4195 Starfix Medtronic LV lead. All leads were implanted in January 2010. GREENHOUSE LABORER-D interrogation: 06/02/2019: Battery longevity( 3 yrs, 11 months ) .RETURNED GOODS SORTER 2.73 V RA pac ing 14% , [...] Congestive heart failure parameters and trends stable. GREENHOUSE LABORER-D interrogation: 09/23/2018: Battery longevity( 3.7-5.9y) 4.8 years/2.97V.RETURNED GOODS SORTER 2.73 V R A pacing 30.79 percent, RV pacing 99.04 percent, GREENHOUSE LABORER pacing 98.92 percent. Lead impedance W NL. [...] terminated episode. No shocks. No aborted charges. GREENHOUSE LABORER-D interrogation: 09/04/2018: Battery longevity 4.9 years/2.98 V ( RETURNED GOODS SORTER 2.73V) . Lead impe ndence WNL. Thresholds [...] gained 3 pounds over a 24-hour period [employer]SE [employer]ER-D Quick Look: 08/17/2018: ( [facility] admission for syncope) : Longevity of 5 years. Sett ings 60-140 18/AF burden <0.1 hours/day, <0.1 percent. Patient activity 1.2 hours per day. EGM's. Dr. Roldan noted settings were ventricular fibrillation zone of 188, treated with 35 J shocks 6, VT zone monitored, no therapy. One episode of sustained ventricular tachy cardia lasting for 27 seconds, no therapy delivered. ECHO addendum: Echo: 07/25/2019: [facility]: Mildly dilated LV, mild LVH, EF 40%, basal to mid inferio r and inferior lateral wall hypokinesis. RV normal in size and systolic function. Mild MARIANGEL , normal LA. Sinus of Valsalva through ascending aorta normal caliber. IVC WNL. No peric ardial or pleural effusion. Mitral valve normal without stenosis, physiologic MR aortic vikash ve not well visualized no evidence of stenosis or regurgitation. Tricuspid valve mild TR wi th velocity 2.3 m/s with estimated PASP 22 mmHg. No pulmonary hypertension, RVSP 30 mmHg. Pulmonic valve not well visualized, mild to moderate WY. Echo: 09/25/2017 ([facility] Technically adequate study. EF 30-35 percent. Mild [...] pericardial effusion. NON CARDIAC TESTING: PFT: 10/19/2015:( [facility]'): Spirometry: Prior to administration of inhaled bronchodilator, [...] t o 14 beats in length.. Frequent PVCs. Rare PACs. Triggered events correlate with isolated ventricular ectopy. EK01/21/2017: Dual-chamber atrially sensing pacemaker, PVCs. Rate 87 bpm, QRS 160 ms, QTC 524 ms and tracing personally reviewed by me EK08/18/2018: Sinus rhythm with frequent AV paced complexes him a PVCs. Rate 72 bpm, WY 112 ms, QRS 150 ms, QTC 494 ms tracing personally reviewed by me EK10/10/2018: Atrially paced rhythm, occasional PVC. Rate 84 bpm, WY 178 ms, QRS 174 ms, QTC 531 ms him a tracing personally reviewed by me, and improved rate and less frequent PVC s and EKG performed 07/2018 EK01/28/2019: Atrially sensed by V paced rhythm. Rate 77 bpm, WY 162 ms, QRS 184 ms, QTC 506 ms, tracing personally reviewed by me. 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 Rate 104 bpm, WY 154 ms, QRS 174 ms, QTC 539 mL, Tracing personally reviewed by me LABS labs: 08/17/2018: CMP: Sodium 140, potassium [...] 15, alk phos 72, troponin T <0.010 ASSESSMENT & PLAN: Lizbeth was here today to follow-up on reports from his device of rapid ventricular rate no patricia by Dr. Chavez on July 02, and he suggested switching him to bisoprolol, or increased dose of metoprolol for AV minna blocking ability. He has problems as detailed below. His 30-day event monitor performed in May as detailed above, and showed underlying s inus rhythm with an average rate of 82 bpm and a range of 49-128, at treatment ventricular p acing, as well as periods of wide-complex tach tachycardia up to 175 bpm, and as long as 14 beats in length with frequent PVCs and rare PACs, and triggered events correlated with isola patricia ventricular ectopy His EKG performed in the clinic today shows atrially sensed ventricular paced rhythm PVCs, and appears to have more ventricular ectopy than on previous EKGs, and he is only on metopr olol XL 12.5 mg once daily. I reviewed the results of EKG, and event monitor, and EKG and monitor performed in the e mergency room with him. I discussed with him today the importance of having increased AV minna blocking to help pre vent more ventricular and atrial arrhythmias. I have stopped his metoprolol, and started him on bisoprolol 2.5 mg nightly for 2 weeks, an d then have instructed him to increase it to 5 mg nightly. He often goes to bed at 4:00 in the morning, so I have instructed him to take with alcohol just prior to going to sleep. His ongoing intolerance of many medications may be secondary to his very small left verte bral artery, which had contributed to his TIA in 2018, and why he is so symptomatic and he d ecreased his blood pressure.. He also may again be fluid overloaded, with increased pedal edema, and I have instructed him to take an extra dose of furosemide either today or tomorrow to help with this, though his weight overall seems fairly stable. For his cardiac medications, he should be on furosemide 20 mg daily with an extra 20 mg as needed for increased pedal edema or weight gain, Plavix 75 mg daily, and aspirin 81 mg daily for history of TIA with small vertebral artery and abdominal aortic aneurysm repair, now bi soprolol 2.5 mg nightly, which will likely be suboptimal, and he can increase this to 5 mg n ightly, atorvastatin 20 mg nightly for hyperlipidemia, and I have told him to increase his m agnesium on 250 mg daily to 500, or at least try to take 500 mg every other day alternating with 250, as his magnesium level in the emergency room was only 1.8. He has ongoing dyspnea with exertion, but this may be contributed to by his underlying l bell disease, exacerbated by secondhand exposure as he [place] the [place] almost nightly. He will be getting labs performed in July by his PCP, which I will look for when I s ee him back in August. I have ordered him an updated Echo to evaluate his cardiomyopathy to be performed at [facility] in September. He will follow-up next with electrophysiology nurse practitioner, eliezer Grijalva april updated device interrogation on that visit. He will follow up with Dr. Foley for primar y cardiology in October. 1. Non-ischemic cardiomyopathy (HCC) 2. Cardiac resynchronization therapy defibrillator (GREENHOUSE LABORER-D) in place 3. Non-sustained ventricular tachycardia (HCC) 4. History of ventricular tachycardia 5. Essential hypertension 6. S/P AAA repair 7. MOISÉS (obstructive sleep apnea) 8. Dyspnea on exertion 9. Chronic restrictive lung disease 10. Controlled type 2 diabetes mellitus without complication, without long-term current use of insulin (HCC) 11. Encounter for monitoring diuretic therapy 12. History of TIA (transient ischemic attack) 13. Exposure to secondhand smoke Orders Placed This Encounter Procedures ECG 12 lead ECHO Complete The following portions of the patient's history [...] contain inadvertent rec ognition errors. Chan HOOKER [facility] 07/21/2019 docume nted in this encounter Plan of [...] DR | | | | | | [place] [address] | | | | | | [phone] | | | | | | | [...] | + + +--------+ + + | ECHO Complete | Echocardiog | Routin | Non-ischemic | Expected: | | | pura | e | cardiomyopathy (HCC) | 09/20/2019, Expires: | | | | | Cardiac | 07/21/2020 | | | | | resynchronization | | | | | | therapy | | | | | | defibrillator | | | | | | (GREENHOUSE LABORER-D) in place | | | | | | Non-sustained | | | | | | ventricular | | | | | | tachycardia ([facility]) | | | | | | History of | | | | | | ventricular | | | | | | tachycardia S/P AAA | | | | | | repair | | + + +--------+ + + documented as of this encounter Procedures + +--------+ + + + | Procedure Name | Priori | Date/Time | Associated Diagnosis | Comments | | | ty | | | | + +--------+ + + + | ECG 12 LEAD | Routin | 07/21/2019 | Non-ischemic | Results for this | | | e | 3:35 PM | cardiomyopathy (HCC) | procedure are in the | | | | PST | Cardiac | results section. | | | | | resynchronization | | | | | | therapy | | | | | | defibrillator | | | | | | (GREENHOUSE LABORER-D) in place | | | | | | Non-sustained | | | | | | ventricular | | | | | | tachycardia (HCC) | | | | | | History of | | | | | | ventricular | | | | | | tachycardia | | | | | | Essential | | | | | | hypertension S/P | | | | | | AAA repair MOISÉS | | | | | | (obstructive sleep | | | | | | apnea) Dyspnea on | | | | | | exertion Chronic | | | | | | restrictive lung | | | | | | disease Controlled | | | | | | type 2 diabetes | | | | | | mellitus without | | | | | | complication, | | | | | | without long-term | | | | | | current use of | | | | | | insulin (HCC) | | | | | | Encounter for | | | | | | monitoring diuretic | | | | | | therapy | | + +--------+ + + + documented in this encounter Results ECG 12 lead (07/21/2019 3:35 PM PST) + + + + + + | Component | Value | Ref Range | Performed | Pathologist | | | | | At | Signature | + + + + + + | VENTRICULAR | 104 | BPM | [facility] | | | RATE EKG | | | | | + + + + + + | ATRIAL RATE | 104 | BPM | [facility] | | + + + + + + | P-R | 154 | ms | [facility] | | | INTERVAL | | | | | + + + + + + | QRS | 174 | ms | [facility] | | | DURATION | | | | | + + + + + + | Q-T | 410 | ms | [facility] | | | INTERVAL | | | | | + + + + + + | Q-T | 539 | ms | [facility] | | | INTERVAL | | | | | | (CORRECTED) | | | | | + + + + + + | P WAVE AXIS | 45 | degrees | [facility] | | + + + + + + | QRS AXIS | -112 | degrees | [facility] | | + + + + + + | T AXIS | 53 | degrees | [facility] | | + + + + + + | INTERPRETAT | Please refer to | | [facility] | | | ION TEXT | Providers office visit | | | | | | note for Providers | | | | | | Interpretation.Confirmed | | | | | | by [facility] [place] Read [facility], | | | | | | [facility] Pam ([id number]), | | | | | | web content editor Darwin Bob | | | | | | ([id number]) on 07/21/2019 | | | | | | 4:27:39 PM | | | | + + [...] + + | Cardiac resynchronization therapy defibrillator (GREENHOUSE LABORER-D) in place | + + | Non-sustained ventricular tachycardia (HCC) Paroxysmal ventricular tachycardia | + + | History of ventricular tachycardia Personal history of other diseases of circulatory | | system | + + | Essential hypertension Unspecified essential hypertension | + + | S/P AAA repair Other postprocedural status | + + | MOISÉS (obstructive sleep apnea) Obstructive sleep apnea (adult) (pediatric) | + + | Dyspnea on exertion Other dyspnea and respiratory abnormality | + + | Chronic restrictive lung disease Other diseases of lung, not elsewhere classified | + + | Controlled type 2 diabetes mellitus without complication, without long-term current | | use of insulin (HCC) | + + | Encounter for monitoring diuretic therapy Encounter for therapeutic drug monitoring | + + | History of TIA (transient ischemic attack) Transient ischemic attack (TIA), and | | cerebral infarction without residual deficits | + + | Exposure to secondhand smoke Other specified personal history presenting hazards to | | health | + + documented in this encounter
--- OUTSIDE RECORDS SUMMARY | ~2020-02-20 | XMS | Encounter Summary ---
Demographics + + + | Address | [address] | | | [place] [address] | + + + | Home Phone | | + + + | Preferred Language | Unknown | + + + | Marital Status | | + + + | Spiritism Affiliation | Unknown | + + + | Race | Unknown | + + + | Ethnic Group | Unknown | + + + Author + + + | Author | [facility] | | | and [place] | + + + | Organization | [facility] | | [...] Team Providers + +------+ + | Care Lead Designer Name | Role | Phone | + +------+ + | Carla Murphy | PCP | | | PA-C | | | + +------+ + Encounter Details +--------+ + + + + | Date | Type | Department | Care Team | Description | +--------+ + + + + | 10/18/ | Orders Only | [facility] | [place], | Elevated left | | 2016 | | PULMONARY [address] | Sailaja Chiang MD | diaphragm | | | | [address] [place], | | | | | | [place] [address] | | | | | | [phone] | | | +--------+ + + + [...] DR | | | | | | [place] [address] | | | | | | [phone] | | | | | | | | +--------+ + + + + | 04/28/ | Procedure | Cardiology | | | | 2019 | visit | | | | +--------+ + + + + documented as of this encounter Visit Diagnoses + + | Diagnosis | + + | Elevated left diaphragm Disorders of diaphragm | + + documented in this encounter"
--- OUTSIDE RECORDS SUMMARY | ~2020-02-20 | XMS | Encounter Summary ---
Demographics + + + | Address | [address] | | | [place] [address] | + + + | Home Phone | | + + + | Preferred Language | Unknown | + + + | Marital Status | | + + + | Yarsani Affiliation | Unknown | + + + | Race | Unknown | + + + | Ethnic Group | Unknown | + + + Author + + + | Author | [facility] | | | and [place] | + + + | Organization | [facility] | | | and [...] Team Providers + +------+ + | Care Foreclosure Paralegal Name | Role | Phone | + +------+ + | Carla Murphy | PCP | | | PA-C | | | + +------+ + Encounter Details +--------+ + + + + | Date | Type | Department | Care Team | Description | +--------+ + + + + | 10/19/ | Orders Only | [facility] [place] | Soila Rudd, | Panlobular emphysema | | 2015 | | PULMONARY [address] | RN | ([facility]) | | | | [place], | | | | | | [place] [address] | | | | | | [phone] | | | +--------+ + + + [...] [address] | | | | | | [place] [address] | | | | | | [phone] | | | | | | | [...]
--- OUTSIDE RECORDS SUMMARY | ~2020-02-20 | XMS | Encounter Summary ---
Demographics + + + | Address | [address] | | | [place] [address] | + + + | Home Phone | | + + + | Preferred Language | Unknown | + + + | Marital Status | | + + + | Synagogue Affiliation | Unknown | + + + | Race | Unknown | + + + | Ethnic Group | Unknown | + + + Author + + + | Author | [facility] | | | and [place] | + + + | Organization | [facility] | | | [...] Team Providers + +------+ + | Care Assurance Engineer Name | Role | Phone | + +------+ + | Carla Murphy | PCP | | | PA-C | | | + +------+ + Encounter Details +--------+ + + + + | Date | Type | Department | Care Team | Description | +--------+ + + + + | 08/17/ | Hospital | [facility] | Therese Sarabia DO | Syncope, unspecified | | 2018 - | Encounter | [facility] | [address] | syncope type; | | | | CARE FLOOR [address] | [place] [address] | V-tach ([facility]) | | 08/19/ | | [address] | [phone] | | | 2017 | | [place], [place] | | | | | | [address] | | | | | | [phone] | | | +--------+ + + + [...] + + + | Blood Pressure | 109/60 | 08/19/2018 11:26 AM | | | | | PST | | + + + + + | Pulse | 71 | 08/19/2018 11:26 AM | | | | | PST | | + + + + + | Temperature | 36.5 C (97.7 F) | 08/19/2018 11:26 AM | | | | | PST | | + + + + + | Respiratory Rate | 18 | 08/19/2018 11:26 AM | | | | | PST | | + + + + + | Oxygen Saturation | - | - | | + + + + + | Inhaled Oxygen | - | - | | | Concentration | | | | + + + + + | Weight | 104.4 kg (230 lb 2.6 | 08/19/2018 11:26 AM | | | | oz) | PST | | + + + + + | Height | 175.3 cm (5' 9.02") | 08/19/2018 11:26 AM | | | | | PST | | + + + + + | Body Mass Index | 33.97 | 08/19/2018 11:26 AM | | | | | PST | | + + + + + documented in this encounter Discharge Summaries Poli Christine MD - 08/19/2018 1:06 PM PSTFormatting of this note might be different fro m the original. Discharge Summaries by Poli Christine MD at 08/19/18 7447 Author: Poli Christine MD Service: (none) Author Type: Physician Filed: 08/19/18 7435 Date of Service: 08/19/18 2649 Status: Signed Electrical Engineering Technician: Poli Christine MD (Physician) [facility] Service: Hospitalist Discharge Summary Date of Admission: 08/17/2018 Date of Discharge: 08/19/2018 Discharge Provider: Poli Christine MD Treatment Team: Consulting Physician: Efraín Roldan MD Admitting Provider: Therese Sarabia DO Discharge Diagnoses: Principal Problem: V tach (HCC) Active Problems: Syncope and collapse Hypothyroidism HTN (hypertension) DM II (diabetes mellitus, type II), controlled (HCC) MOISÉS (obstructive sleep apnea) Resolved Problems: * No resolved hospital problems. * Significant Diagnostic Studies: Carotid Doppler showed the following: Impression 1. Right ICA: Grade 2 (<50%). Intimal common carotid artery thickening and minimal plaq ue at the bulb. 2. Left ICA: Grade 2 (<50%). Intimal common carotid artery thickening and minimal plaqu e at the bulb. 3. The vertebral arteries demonstrate normal antegrade flow and velocities bilaterally. Chest X she showed the following: Impression 1. Persistent mild to moderate elevation of the left hemidiaphragm with left basilar atel ectasis. 2. Persistent mild cardiac enlargement with sequential AICD. Echocardiogram from August 2017 showed the following: Impression 1. This was a technically difficult study with suboptimal views. 2. The left ventricle is mildly dilated with moderately impaired systolic function EF 30-35 %. 3. There is paradoxical/dysynergic septal motion consistent with paced rhythm. 4. The right ventricle is normal in size and function. 5. There is no pericardial effusion. HOSPITAL COURSE: This is a 73-year-old male who presented to the Emergency Department with syncopal epi sode thought to be secondary to V. tach. Patient has chronic systolic congestive heart failu re with severely depressed EF. Status post AICD. Cartilage was consulted. He was on telemetr y monitoring. Troponins have been negative. He had been taking digoxin at home with digoxin level noted to be around 0.9. Digoxin was discontinued. He was replaced with oral amiodarone 400 mg bid. He was also started on metoprolol XL 25 mg once daily. He is asymptomatic at th is time. Would be discharged home today with close follow-up with PMD. Vital Signs: BP 109/60 (BP Location: Left upper arm) | Pulse 71 | Temp 97.7 F (36.5 C) (Oral) | R karma 18 | Ht 1.753 m (5' 9.02") | Wt 104.4 kg (230 lb 2.6 oz) | SpO2 94% | BMI 33.97 kg/m Patient is awake, alert, oriented to time, place and person Skin: Warm and supple Neck: No JVD Chest: Normal vesicular breath sounds, good air entry bilaterally CVS: S1S2 audible, no murmurs heard Abdomen: Soft, non tender, normal bowel sounds, no organomegaly Extremities: No pedal edema, clubbing or cyanosis Neurologic examination: No focal sensory or motor deficits Back examination: No CVA tenderness, no spinal tenderness Disposition: Home Condition: Fair No discharge procedures on file. Follow up: [facility] Emergency Department [address] [facility] [address] Go to If symptoms worsen Carla Murphy PA-C [address] [place] [address] Schedule an appointment as soon as possible for a visit in 1 week For follow up in one week Discharge took more than 35 minutes, to include final examination, discussion of admission, and preparation of prescriptions, instructions for on-going care, follow-up and documentati on of discharge summary. Medication List START taking these medications amiodarone 400 MG tablet QTY: 60 tablet Refills: 0 Commonly known as: PACERONE Take 1 tablet by mouth 2 (two) times daily for 30 days. CHANGE how you take these medications metoprolol 25 MG 24 hr tablet QTY: 30 tablet Refills: 0 Commonly known as: TOPROL-XL Take 1 tablet by mouth daily for 30 days. Start taking on: 08/20/2018 What changed: how much to take Another medication with the same name was removed. Continue taking this medication, and follow the directions you see here. CONTINUE taking these medications aspirin 81 MG EC tablet Refills: 0 atorvastatin 20 MG tablet Refills: 0 Commonly known as: LIPITOR clopidogrel 75 MG tablet Refills: 0 Commonly known as: PLAVIX fluticasone 50 MCG/ACT nasal Refills: 0 Commonly known as: FLONASE furosemide 20 MG tablet QTY: 60 tablet Refills: 2 Doctor's comments: Please consider 90 day supplies to promote better adherence Commonly known as: LASIX Take 1 tablet by mouth every other day. levothyroxine 88 MCG tablet Refills: 0 Commonly known as: SYNTHROID loratadine 10 MG tablet Refills: 0 Commonly known as: CLARITIN Magnesium 250 MG Tabs tablet Refills: 0 meloxicam 15 MG tablet Refills: 0 Commonly known as: MOBIC metFORMIN 500 MG tablet Refills: 0 Commonly known as: GLUCOPHAGE Vitamin D3 84201 units Caps Refills: 0 You might also be taking other medications not listed above. If you have questions about an y of your other medications, talk to the person who prescribed them or your Primary Care Pro vider. STOP taking these medications digoxin 0.25 MG tablet Commonly known as: LANOXIN Where to Get Your Medications You can get these medications from any pharmacy Bring a paper prescription for each of these medications amiodarone 400 MG tablet metoprolol 25 MG 24 hr tablet documented in this e ncounter Medications at Time of Discharge + + [...] Progress Notes Conversion Transaction, Provider Unknown - 08/19/2018 2:46 PM PSTFormatting of this note m ight be different from the original. Nurse Progress Note by Milagros Kirkland RN at 08/19/181445 Author: Milagros Kirkland RN Service: (none) Author Type: Registered Nurse Filed: 08/19/18 7809 Date of Service: 08/19/181445 Status: Signed Electrical Engineering Technician: Milagros Kirkland RN (Registered Nurse) Discharge paperwork reviewed with patient in detail. Patient agreed and verbalized understa nding on medications changes and when to take medications. Patient denies any pain at this t garett. IV's removed. Patient tolerated removal with no signs of distress. Personal belongings taken with patient. Patient transported to private vehicle via wheelchair. Patient's son emmanuel eugene be driving patient home. Milagros Winters RN onver chetna Transaction, Provider Unknown - 08/19/2018 6:14 AM PST Nurse Progress Note by Naveen Caldwell RN at 08/19/1814 Author: Naveen Caldwell RN Service: (none) Author Type: Registered Nurse Filed: [id number] Date of Service: 08/19/18613 Status: Signed Electrical Engineering Technician: Naveen Caldwell, RN (Registered Nurse) Pt having gas pains from the lactulose, refused AM dose said he had a BM yesterday. Otherwi se no acute changes. VSS. Chart check complete. Naveen Caldwell RN Poli Todd MD - 08/18/2018 8:46 PM PSTFormatting of this note might be different from the o riginal. Progress Notes by Poli Christine MD at 08/18/182045 Author: Poli Christine MD Service: (none) Author Type: Physician Filed: 08/18/182054 Date of Service: 08/18/182045 Status: Signed Electrical Engineering Technician: Poli Christine MD (Physician) [facility] Service: Hospitalist Progress Note Hospital Day: LOS: 0 days SUBJECTIVE Patient complaining of some musculoskeletal chest pain from the fall at home. Ordered wh en necessary IV morphine. Appreciate recommendations from cardiology. Switched over to ora l amiodarone instead of digoxin. Also started on metoprolol 25 mg XL tablet oral daily. Re lizabeth on telemetry. Vitals remained stable. A chest x-ray has been ordered for tomorrow AM. Scheduled Medications amiodarone 400 mg Oral BID aspirin 81 mg Oral Daily with breakfast atorvastatin 20 mg Oral Nightly clopidogrel 75 mg Oral Daily enoxaparin 40 mg Subcutaneous Q24H famotidine 20 mg Oral BID Or famotidine 20 mg Intravenous BID [START ON 08/19/2018] furosemide 20 mg Oral Q48H insulin lispro (human) 0-3 Units Subcutaneous Nightly insulin lispro (human) 0-6 Units Subcutaneous TID AC lactulose 30 g Oral TID levothyroxine 88 mcg Oral QAM AC Magnesium 250 mg Oral Daily metoprolol 25 mg Oral Daily sodium chloride (PF) 10 mL Intravenous Q8H Continuous Infusions dextrose OBJECTIVE Vital Signs: BP 112/58 (BP Location: Left upper arm) | Pulse 65 | Temp 98.6 F (37 C) (Oral) | Res p 19 | Ht 1.753 m (5' 9.02") | Wt 104.4 kg (230 lb 2.6 oz) | SpO2 95% | BMI 33.97 kg/m Patient is awake, alert, oriented to time, place and person Skin: Warm and supple Neck: No JVD Chest: Normal vesicular breath sounds, good air entry bilaterally CVS: S1S2 audible, no murmurs heard Abdomen: Soft, non tender, normal bowel sounds, no organomegaly Extremities: No pedal edema, clubbing or cyanosis Neurologic examination: No focal sensory or motor deficits Back examination: No CVA tenderness, no spinal tenderness REVIEW OF SYSTEMS: Denies any nausea, vomiting, diarrhea, dysuria, cough, fever. DATA CBC: Lab Results Component Value Date WBC 10.67 08/18/2018 RBC 4.27 08/18/2018 HGB 13.0 (L) 08/18/2018 HCT 38.3 (L) 08/18/2018 MCV 89.6 08/18/2018 MCH 30.3 08/18/2018 MCHC 33.8 08/18/2018 RDW 45.5 08/18/2018 PLT 160 08/18/2018 MPV 8.6 08/18/2018 DIFFTYPE AUTOMATED 08/18/2018 CMP: Lab Results Component Value Date NA 141 08/18/2018 K 3.9 08/18/2018 CL 101 08/18/2018 CO2 31 08/18/2018 ANIONGAP 13 08/18/2018 GLUF 136 (H) 08/18/2018 BUN 16 08/18/2018 CREATININE 0.9 08/18/2018 BCR 18 08/18/2018 CA 8.2 (L) 08/18/2018 PROT 6.1 (L) 01/21/2017 ALB 3.2 (L) 01/21/2017 GLOB 2.9 01/21/2017 BILITOT 0.7 01/21/2017 ALP 57 01/21/2017 AST 14 01/21/2017 ALT 21 01/21/2017 EGFR >60 08/18/2018 Carotid Dopplers shows the following: Impression 1. Right ICA: Grade 2 (<50%). Intimal common carotid artery thickening and minimal plaq ue at the bulb. 2. Left ICA: Grade 2 (<50%). Intimal common carotid artery thickening and minimal plaqu e at the bulb. 3. The vertebral arteries demonstrate normal antegrade flow and velocities bilaterally. PROBLEM LIST Principal Problem: V tach (HCC) Active Problems: Syncope and collapse Hypothyroidism HTN (hypertension) DM II (diabetes mellitus, type II), controlled (HCC) MOISÉS (obstructive sleep apnea) ASSESSMENT & PLAN Principal problem: Syncope: Suspected to be secondary to V. tach cardiac arrhythmia. Patient has chronic david schemic cardiomyopathy with chronic systolic congestive heart failure with depressed EF, sta tus post ICD/NETWORK SUPPORT ENGINEER insertion. Had been on digoxin outpatient. Digoxin level 0.9. TSH normal . Echocardiogram shows EF 30-35%. Cardiology recommended on starting oral amiodarone with changing over to 25 mg of metoprolol XL daily. Remains on telemetry. Vitals remain stable. Also remains on oral Lasix. Secondary diagnoses: Hypothyroidism: TSH normal. Continue Synthroid as per home dose. Questionable history of diabetes: Remains on insulin sliding scale. Advised checking A1c l evel. Metformin remains on hold. Dyslipidemia with low HDL with history of ischemic stroke: Continue statin, baby aspirin an d Plavix. Lactulose for constipation. Pepcid for GERD. Lovenox and SCDs for DVT prophylaxis. Disposition: Yet to be seen how he does with the current management. Code Status: Full Code Poli Christine MD 08/18/2018 onversion Transacti on, Provider Unknown - 08/18/2018 3:54 PM PSTFormatting of this note might be different fro m the original. Nurse Progress Note by Milagros Kirkland RN at 08/18/18 6094 Author: Milagros Kirkland RN Service: (none) Author Type: Registered Nurse Filed: 08/18/18 9090 Date of Service: 08/18/18 3416 Status: Addendum Electrical Engineering Technician: Milagros Kirkland RN (Registered Nurse) Related Notes: Original Note by Milagros Kirkland RN (Registered Nurse) filed at 1600 Patient stable during shift. Monitoring blood pressure due to adjustments in beta-blockers. Patient denies any concerns at this time. Will continue to monitor patient. From time assum ing care, chart check complete. Milagros Winters RN onver chetna Transaction, Provider Unknown - 08/18/2018 3:01 PM PST Nurse Progress Note by Milagros Kirkland RN at 08/18/18 1501 Author: Milagros Kirkland RN Service: (none) Author Type: Registered Nurse Filed: 08/18/18 1501 Date of Service: 08/18/18 150 Status: Signed Electrical Engineering Technician: Milagros Kirkland RN (Registered Nurse) Assumed care. Report from KEEGAN Colvin. onver chetna Transaction, Provider Unknown - 08/18/2018 2:28 PM PST Nurse Progress Note by Marii Garza RN at 08/18/18 142 Author: Marii Garza RN Service: (none) Author Type: Registered Nurse Filed: 08/18/18 1428 Date of Service: 08/18/181427 Status: Signed Electrical Engineering Technician: Marii Garza RN (Registered Nurse) Patients pain went from a 3 to a 1. He does not want morphine at this time. Will continue t o monitor. onver chetna Transaction, Provider Unknown - 08/18/2018 1:06 PM PST Progress Notes by Malena Ferro RPH at 08/18/18 1306 Author: Malena Ferro RPH Service: Pharmacy Author Type: Pharmacist Filed: 08/18/18 1306 Date of Service: 08/18/18 1306 Status: Signed Electrical Engineering Technician: Malena Ferro RPH (Pharmacist) Renal Dosing Monitoring: Franci Velázquez 73 y.o. male Pharmacy dosing for renal function per Dr. Sarabia Crcl~89.7ml/min Plan per protocol: Medication / Dose: no medications need renal adjustments at this time. Pharmacy will continue monitoring patient for appropriate dosing per renal function. 08/18/2018 1:06 PM Pharmacist: Malena Ferro onver chetna Transaction, Provider Unknown - 08/18/2018 10:59 AM PST Case Management by Yoon Michele RN at 08/18/18 105 Author: Yoon Michele RN Service: (none) Author Type: Registered Nurse Filed: 08/18/18 1113 Date of Service: 08/18/181058 Status: Signed Electrical Engineering Technician: Yoon Michele RN (Registered Nurse) 08/18/18 1000 Discharge Planning Evaluation Admitting Diagnosis v tach; Readmission No Living Arrangements Alone Support Systems Children Type of Residence Private residence Independent with ADL's Yes Independent with Mobility Yes Home Care Services No Caregiver after Discharge No Mental Status Oriented Prior functional status indep Resources Financial concerns No Anticipated Disposition Facility Type Home Met with pt and discussed discharge planning. Pt resides alone in [place] but is indep wi th all his ADL's. No use of home O2, no dme,no HD. Pt on plavix. Plans to return home Patient's PCP is: Nely Murphy Patient's insurance: medicare/swab[employer] life Coverage concerns: Medication coverage/concerns: Rx Bedside Delivery: Community resources utilized / needed: Assistance in transportation: family Identification of any specific education / training: Barriers to Discharge / Alternative housing needed: Anticipated DCP: home Sabra Michele RN CM onver chetna Garcia, Provider Unknown - 08/18/2018 7:02 AM PST Nurse Progress Note by Alize Rosas RN at 08/18/18 07 Author: Alize Rosas RN Service: (none) Author Type: Registered Nurse Filed: 08/18/18 07 Date of Service: 08/18/18 07 Status: Signed Electrical Engineering Technician: Alize Rosas RN (Registered Nurse) Patient arrived on the unit at 0109 reported no CP or any other pain. Patient heart rate re mained from 60-90's. Patient uses 3.5L NC of O2 at home while he sleeps. Currently at 2.5L N C and remained at 95%. Patient NPO as soon at pt. Arrived on the unit only sips with meds. O therwise, hourly rounding uneventful. Chart check complete. Alize Rosas RN erclTherese DO - 08/18/2018 6:09 AM PSTFormatting of this note might be different from the orig inal. Progress Notes by Therese Sarabia DO at 08/18/18608 Author: Therese Sarabia DO Service: Hospitalist Author Type: Physician Filed: 08/18/18608 Date of Service: 08/18/18608 Status: Signed Electrical Engineering Technician: Therese Sarabia DO (Physician) Dr. Roldan consulted documented in this enco unter H&P Notes Therese Sarabia DO - 08/17/2018 10:54 PM PSTFormatting of this note might be different from t he original. H&P by Therese Sarabia DO at 08/17/182253 Author: Therese Sarabia DO Service: Hospitalist Author Type: Physician Filed: 08/18/18 044 Date of Service: 08/17/182253 Status: Signed Electrical Engineering Technician: Therese Sarabia DO (Physician) [facility] Service: Hospitalist Admission History & Physical Date of Admission: 08/17/2018 Primary Care Physician: Carla Murphy Reason for Admission: V. tach, syncope and collapse, hypothyroidism and hypertension History Obtained From: patient, chart review CHIEF COMPLAINT: Chief Complaint Patient presents with Irregular Heart Beat pt symptomatic with runs of VTach HISTORY OF PRESENT ILLNESS The patient is a 73 y.o. male with significant past medical history of V. tach, XT NETWORK SUPPORT ENGINEER-D, N ICMP 30-35% abdominal aortic aneurysm, restrictive lung disease, diabetes, hard of hearing, dyslipidemia and hypertension who presents as a transfer from [facility] ER for V. 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 He reported sudden onset LOC at around 1657 while trying to sit on the toilet, no head tra aissatou but found himself on the floor. After passing out and while going to [facility] ER, he h ad chest pain which resolved. The patient describes the chest pain as constant, stabbing krissy n in nature, radiating and a 6/10+ in intensity. Other associated symptoms are near-syncope and nausea. Aggravating factors are none. Alleviating factors are: morphine. Patient's car diac risk factors are diabetes mellitus, dyslipidemia, hypertension and male gender. Patien t's risk factors for DVT/PE: none. Previous cardiac testing: NETWORK SUPPORT ENGINEER-D. Patient reports episodes of chest pain, fatigue, upset stomach since digoxin started and metoprolol increased 2 week s ago. Those medications prescribed by Dr Chavez. Patient was in his usual state health befor e passing out. [employer] quick look: parameter lower rate 60 bpm, upper track 140 and upper sensor 140 bpm . Fpc >171 bpm and VF ON >188 bpm. Per RN report NETWORK SUPPORT ENGINEER program to give a shock if VT is sustained for 30 seconds, patient's VT lasted 27 seconds before he passed out. Medications giving at the [place] emergency room: Aspirin, morphine, IV fluids, REVIEW OF SYSTEMS As above, a total of 12 systems reviewed, o/w unremarkable Past Medical History Diagnosis Date AAA (abdominal aortic aneurysm) (HCC) COPD (chronic obstructive pulmonary disease) (HCC) Diabetes mellitus (HCC) pre diabetic per PCP Enlarged heart [place] (hard of hearing) Hyperlipidemia Hypertension MOISÉS (obstructive sleep apnea) 01/21/2017 Pacemaker Past Surgical History Procedure Laterality Date AORTIC ENDOGRAFT N/A 09/23/2014 Procedure: AORTIC - ENDOGRAFT; Surgeon: Vincent Fields MD; Location: [facility] OR/[facility]; Serv ice: Vascular; Laterality: N/A; APPENDECTOMY HAND SURGERY tube put in to drain infection. Was put out for it as a child HERNIA REPAIR PACEMAKER INSERTION 01/22/2014 TUMOR REMOVAL head and neck Allergies Allergen Reactions Codeine Anaphylaxis and Other (See Comments) Heart stops Demerol [Meperidine] Other (See Comments) and Angioedema Heart stops Norflex [Orphenadrine] Anaphylaxis and Other (See Comments) Heart stops Percodan [Oxycodone-Aspirin] Other (See Comments) Heart Stops Nitroglycerin Other (See Comments) Liquid nitro Heart stops Penicillins Rash Prior to Admission medications Medication Sig Start Date End Date Taking? Authorizing Provider aspirin 81 MG EC tablet Take 81 mg by mouth daily. Yes Historical Provider Cholecalciferol (VITAMIN D3) 23116 UNITS CAPS Take 5,000 Int'l Units by mouth daily. Yes Historical Provider digoxin (LANOXIN) 0.25 MG tablet Take 1 tablet by mouth daily. 07/30/18 07/30/19 Yes Constantin cadena MD furosemide (LASIX) 20 MG tablet Take 1 tablet by mouth every other day. 05/15/18 Yes Juan A Joy MD Magnesium 250 MG TABS tablet Take 250 mg by mouth daily. Yes Historical Provider metFORMIN (GLUCOPHAGE) 500 MG tablet Take 500 mg by mouth daily. Yes Historical Provider atorvastatin (LIPITOR) 20 MG tablet Take 20 mg by mouth nightly. Historical Provider clopidogrel (PLAVIX) 75 MG tablet Take 75 mg by mouth daily. Historical Provider fluticasone (FLONASE) 50 MCG/ACT nasal 1 spray by Each Nare route daily. Historical Prov ider levothyroxine (SYNTHROID) 88 MCG tablet Take 88 mcg by mouth every morning before breakfast . Pt taking 88 mcg daily Historical Provider loratadine (CLARITIN) 10 MG tablet Take 10 mg by mouth daily. Historical Provider meloxicam (MOBIC) 15 MG tablet Take 15 mg by mouth daily. Historical Provider metoprolol (TOPROL-XL) 25 MG 24 hr tablet Take 0.5 tablets by mouth daily. 05/15/18 Juan A Joy MD metoprolol (TOPROL-XL) 25 MG 24 hr tablet Take 1 tablet by mouth 2 (two) times daily. 07/3007/30/19 Constantin Chavez MD Social History Social History Marital status: Spouse name: N/A Number of children: N/A Years of education: N/A Social History Main Topics Smoking status: Never Smoker Smokeless tobacco: Never Used Comment: has second hand smoke exposure Alcohol use No Comment: very rare Drug use: No Sexual activity: Not Asked Other Topics Concern None Social History Narrative None Family History Problem Relation Age of Onset Heart defect Mother Heart disease Mother Gout Father CVA Sister Bowel Disease Sister Leukemia Brother PHYSICAL EXAM BP 120/68 | Pulse 82 | Temp 98.7 F (37.1 C) (Oral) | Resp 17 | Ht 1.753 m (5' 9") | Wt 100.7 kg (222 lb) | SpO2 93% | BMI 32.78 kg/m General Appearance: A & O x 3, no distress, appears stated age. Overweight Head: Normocephalic, without obvious abnormality, atraumatic Eyes: PERRL, conjunctiva/corneas clear, EOM's intact. Ears: Normal external ear canals, no otorrhea Nose: Nares normal, no drainage or sinus tenderness Throat: Lips, mucosa, and tongue normal; gums normal Neck: Supple, symmetrical, trachea; no carotid bruit or JVD Back: Symmetric, no curvature, ROM normal, no CVA tenderness Lungs: Clear to auscultation bilaterally, respirations unlabored Chest Wall: AICD left upper chest Heart: Regular rate and rhythm, S1 and S2 normal, no murmur, rub or gallop Abdomen: Soft, non-tender, bowel sounds active all four quadrants, no masses, no organo megaly Genitalia: Deferred Rectal: Deferred Extremities: Upper extremities no clubbing/ cyanosis/ erythema Lower extremities atraum atic, no cyanosis or edema Pulses: 2+ and symmetric all extremities Skin: Skin warm, texture and turgor normal, no rashes or lesions Lymph nodes: No gross lymphadenopathy. Neurologic: Psychiatric: CNII-XII intact, normal strength, sensation normal Affect/ mood normal, behavior and judgement normal DATA Results No results found for the last 72 hours. Results No results found for the last 72 hours. IMAGING Data from [facility] ER: Chest x-ray impression: shallow inspiration, equivocal congestive heart failure changes WBC 12.5, hemoglobin 14.7, hematocrit 44.1, platelets 176, INR 0.9, glucose 94, BUN 18, cre atinine 0.92, sodium 140, potassium 3.8, chloride 101, carbon dioxide 32, calcium 8.9, album in 3.8, total protein 6.0, total bilirubin 1.6, AST 14, ALT 20, lipase 24, troponin less amanda n 0.01 x 2 EK:08 from [facility] Normal sinus rhythm at 87 bmp suspect unspecified pacemaker failure. Normal WA and LATESHA Atrial sensed ventricular paced rhythm Normal QRS and [place] 158 ms Abnormal EKG Normal QT and QTc Normal ST/T without acute ischemic changes Interpreted by Jose Luis Varela DO ASSESSMENT & PLAN Principal Problem: V tach (HCC): -Hx of NICC -Table And Desk Finisher Dr Chavez and Dr Joy -NETWORK SUPPORT ENGINEER-D setting high threshold versus failure -We will discontinue digoxin which patient report causing problems -Digoxin level -Table And Desk Finisher consultation in the morning -Continue metoprolol at 25 bid Active Problems: Syncope and collapse: -Likely secondary to #1 -No head trauma -We will check carotid ultrasounds and do neuro checks MOISÉS: -Unable to tolerate the CPAP -Uses oxygen at night 3.5 liter -Sees Dr Chambers Hypothyroidism: -Levothyroxine DM II: -ADA diet -Insulin sliding scale -No Metformin for now HTN (hypertension): -Continue BB GI and DVT prophylaxis THERESE SARABIA DO 08/18/2018 12:12 AM documented in this enco unter Consult Notes Efraín Roldan MD - 08/18/2018 7:54 AM PST Consults by Efraín Roldan MD at 08/18/18 0754 Author: Efraín Roldan MD Service: Cardiology Author Type: Physician Filed: 08/18/18 1233 Date of Service: 08/18/18 0754 Status: Signed Electrical Engineering Technician: Efraín Roldan MD (Physician) Consult Orders: 1. Inpatient consult to Cardiology [[id number]] ordered by Therese Sarabia DO at 08/18/18 0608 [facility] Service: Cardiology Initial Consult Note Name of Water Pumper: Efraín Roldan MD Date of Admission: 08/17/2018 Reason for Consultation: Syncope Requesting Physician: Dr. Sarabia, Hospitalist History Obtained From: patient, chart review CHIEF COMPLAINT: Syncope. HISTORY OF PRESENT ILLNESS: Franci Velázquez is 73 y.o. gentleman who presented to the emergency room complaining of an episode of syncope. He was sitting at 4:30 PM. He got up to go to the restroom. He sat down on the toilet and t hen he lost consciousness suddenly. He was not straining. He denied chest pain, palpitations, sweating, dizziness or sweating He did not feel the episode coming. He does not remember hitting the floor. Although he was not able to protect himself, he did not hurt himself. He woke up quickly. He was feeling confused. No similar episodes in the past. He had recent changes of medications of increasing the dose of the metoprolol and starting digoxin. He was feeling chest pain on the way to the emergency room. Chest pain resolved after 2 jose rs. No recurrence of chest pain. REVIEW OF SYSTEMS Negative except for pertinent items noted in HPI. Review of Systems Constitutional: Negative for fatigue. HENT: Negative for nosebleeds. Eyes: Negative for visual disturbance. Respiratory: Negative for cough and shortness of breath. Cardiovascular: Chest pain. No palpitations and leg swelling. Gastrointestinal: Negative for nausea, vomiting, abdominal pain and blood in stool. Genitourinary: Negative for hematuria. Musculoskeletal: Negative for myalgias, back pain and arthralgias. Skin: Negative for color change. Neurological: Negative for dizziness. Syncope. No numbness. Hematological: Does not bruise/bleed easily. Psychiatric/Behavioral: The patient is not nervous/anxious. PAST MEDICAL & SURGICAL HISTORY Past Medical History Diagnosis Date AAA (abdominal aortic aneurysm) (HCC) COPD (chronic obstructive pulmonary disease) (HCC) Diabetes mellitus (HCC) pre diabetic per PCP Enlarged heart [place] (hard of hearing) Hyperlipidemia Hypertension MOISÉS (obstructive sleep apnea) 01/21/2017 Pacemaker Past Surgical History Procedure Laterality Date AORTIC ENDOGRAFT N/A 09/23/2014 Procedure: AORTIC - ENDOGRAFT; Surgeon: Vincent Fields MD; Location: [facility] OR/[facility]; Serv ice: Vascular; Laterality: N/A; APPENDECTOMY HAND SURGERY tube put in to drain infection. Was put out for it as a child HERNIA REPAIR PACEMAKER INSERTION 01/22/2014 TUMOR REMOVAL head and neck MEDICATIONS Home Medications Prescriptions Prior to Admission Medication Sig Dispense Refill Last Dose aspirin 81 MG EC tablet Take 81 mg by mouth daily. Taking Cholecalciferol (VITAMIN D3) 96482 UNITS CAPS Take 5,000 Int'l Units by mouth daily. Taking digoxin (LANOXIN) 0.25 MG tablet Take 1 tablet by mouth daily. 90 tablet 3 furosemide (LASIX) 20 MG tablet Take 1 tablet by mouth every other day. 60 tablet 2 Colin ing Magnesium 250 MG TABS tablet Take 250 mg by mouth daily. Taking metFORMIN (GLUCOPHAGE) 500 MG tablet Take 500 mg by mouth daily. Taking atorvastatin (LIPITOR) 20 MG tablet Take 20 mg by mouth nightly. Taking clopidogrel (PLAVIX) 75 MG tablet Take 75 mg by mouth daily. Taking fluticasone (FLONASE) 50 MCG/ACT nasal 1 spray by Each Nare route daily. Not Taking levothyroxine (SYNTHROID) 88 MCG tablet Take 88 mcg by mouth every morning before break fast. Pt taking 88 mcg daily Taking loratadine (CLARITIN) 10 MG tablet Take 10 mg by mouth daily. Taking meloxicam (MOBIC) 15 MG tablet Take 15 mg by mouth daily. Not Taking metoprolol (TOPROL-XL) 25 MG 24 hr tablet Take 0.5 tablets by mouth daily. 60 tablet 1 Taking metoprolol (TOPROL-XL) 25 MG 24 hr tablet Take 1 tablet by mouth 2 (two) times daily. 1 80 tablet 3 Inhospital Medications aspirin 81 mg Oral Daily with breakfast atorvastatin 20 mg Oral Nightly clopidogrel 75 mg Oral Daily enoxaparin 40 mg Subcutaneous Q24H famotidine 20 mg Oral BID Or famotidine 20 mg Intravenous BID furosemide 20 mg Oral Q48H insulin lispro (human) 0-3 Units Subcutaneous Nightly insulin lispro (human) 0-6 Units Subcutaneous TID AC levothyroxine 88 mcg Oral QAM AC Magnesium 250 mg Oral Daily metoprolol 25 mg Oral BID sodium chloride (PF) 10 mL Intravenous Q8H dextrose Allergies Allergies Allergen Reactions Codeine Anaphylaxis and Other (See Comments) Heart stops Demerol [Meperidine] Other (See Comments) and Angioedema Heart stops Norflex [Orphenadrine] Anaphylaxis and Other (See Comments) Heart stops Percodan [Oxycodone-Aspirin] Other (See Comments) Heart Stops Nitroglycerin Other (See Comments) Liquid nitro Heart stops Penicillins Rash FAMILY HISTORY Family History Problem Relation Age of Onset Heart defect Mother Heart disease Mother Gout Father CVA Sister Bowel Disease Sister Leukemia Brother SOCIAL HISTORY Social History Social History Marital status: Spouse name: N/A Number of children: N/A Years of education: N/A Occupational History Not on file. Social History Main Topics Smoking status: Never Smoker Smokeless tobacco: Never Used Comment: has second hand smoke exposure Alcohol use No Comment: very rare Drug use: No Sexual activity: Not on file Other Topics Concern Not on file Social History Narrative No narrative on file PHYSICAL EXAM Vital Signs: BP 106/77 (BP Location: Left upper arm) | Pulse 68 | Temp 97.9 F (36.6 C) (Oral) | R karma 17 | Ht 1.753 m (5' 9.02") | Wt 104.4 kg (230 lb 2.6 oz) | SpO2 96% | BMI 33.97 kg/m Intake/Output Summary (Last 24 hours) at 08/18/18 0754 Last data filed at 08/18/18 0751 Gross per 24 hour Intake 0 ml Output 500 ml Net -500 ml Vent Settings Last 24hrs: PA Catheter Constitutional: Well-developed. Neck: No JVD present. No thyromegaly present. Cardiovascular: Irregular rhythm, S1 normal and S2 normal. No murmur heard. Pulses: Carotid pulses are 2+ on the right side, and 2+ on the left side. Radial pulses are 2+ on the right side, and 2+ on the left side. Pulmonary/Chest: Effort normal and breath sounds normal. No wheezes. No rales. Abdominal: Soft. No tenderness. Musculoskeletal: +1 edema. Neurological: Alert. No cranial nerve deficit. Skin: Warm and dry. DATA Recent Labs Lab 08/18/18453 NA 141 K 3.9 CO2 31 BUN 16 CREATININE 0.9 MG 2.3 Recent Labs Lab 08/18/1845308/18/18 0118 CKTOTAL 32* 45* CKMB 1.6 1.8 CKMBINDEX 5.0 4.0 TROPONINI 0.021 <0.020 Recent Labs Lab 08/18/18453 WBC 10.67 HGB 13.0* HCT 38.3* MCV 89.6 PLT 160 EKG: August 18, 2018, reviewed personally on August 18, 2018. Atrial paced, ventricular pace d, frequent PVCs, bigeminy. Rate of 72. January 21, 2017, reviewed personally on August 18, 2018. Underlying sinus rhythm, heart rate 87, ventricular paced, occasional PVCs. Last Echo: April 16, 2018. EF 35-40, grade 1 diastolic dysfunction. Moderate biatrial enlargement. No significant valvular disorders. September 25, 2017. EF 30-35. No significant valvular disorders. May 17, 2015. EF 35-40. Last stress test: Last cath: November 05, 2008. Normal coronary arteries, consistent with nonischemic cardiomyopathy. Carotid US: August 18, 2018. <50% bilateral. AAA screening: Lower extremity US: OTHERS: Pulmonary function test. October 24, 2015. Moderate restrictive physiology. ASSESSMENT & PLAN Franci Velázquez is 73 y.o. gentleman with the following medical conditions: 1. Hypertension 2. Hyperlipidemia 3. Prediabetes, on oral hypoglycemic medications 4. Nonischemic cardiomyopathy. November 05, 2008. Normal coronaries. 5. ICD/NETWORK SUPPORT ENGINEER insertion. January 27, 2010. Medtronic. May 09, 2015. Generator change. 6. AAA. History of repair, September 24, 2014. 7. COPD. 8. Obstructive sleep apnea. Admitted on August 17, 2018 after an episode of syncope. Potassium and magnesium are within normal limits. ECG showed frequent PVCs. ICD showed one episode of sustained ventricular tachycardia lasted for 27 seconds. No thera py was delivered. The device settings are ventricular fibrillation zone of 188, treated with 35 J shocks 6. VT zone, monitored, no therapy. Recommendations: Switch metoprolol to metoprolol succinate 25 mg once a day. Stop digoxin. Start amiodarone 400 mg twice a day for one week then decrease to 400 mg once a day. Reevaluate the device settings in the outpatient setting. No indication to repeat an echocardiogram or stress test. Thank you for allowing me to participate in the care of this patient. Code Status: Full Code Primary Care Physician: Carla Roldan MD 08/18/2018 documented in this enc ounter ED Notes Conversion Transaction, Provider Unknown - 08/18/2018 12:49 AM PSTFormatting of this note m ight be different from the original. ED Notes by Amanda Tejada RN at 08/18/1848 Author: Amanda Tejada RN Service: (none) Author Type: Registered Nurse Filed: 08/18/1849 Date of Service: 08/18/1848 Status: Signed Electrical Engineering Technician: Amanda Tejada RN (Registered Nurse) Family member stepped out asked about medication being administer, family member informed w ill notify provider for orders, note left at Dr Later desk requesting orders Amanda Tejada RN 08/18/1849 onver chetna Transaction, Provider Unknown - 08/17/2018 10:59 PM PST ED Notes by Jhonny Street RN at 08/17/182258 Author: Jhonny Street RN Service: (none) Author Type: Registered Nurse Filed: 08/17/182258 Date of Service: 08/17/182258 Status: Signed Electrical Engineering Technician: Jhonny Street RN (Registered Nurse) Code cart at bedside at pads applied to pts chest Jhonny Street RN 08/17/182258 ater, Jose Luis Canas DO - 08/17/2018 10:42 PM PSTFormatting of this note might be different from the or iginal. ED Provider Notes by Jose Luis Varela DO at 08/17/182241 Author: Jose Luis Varela DO Service: -Emergency Author Type: Physician Filed: 08/27/18 0404 Date of Service: 08/17/182241 Status: Signed Electrical Engineering Technician: Jose Luis Varela DO (Physician) [facility] Department of Emergency Medicine Pre-arrival Provider: Another ED Provider Name: [facility] Pertinent History and Concerns: Hx AICD and AAA repair. had a syncopal episode using the ba throom. Since then he has been having stuttering chest pain. Pacer interrogated which showed 18 seconds of subthreshold VT of 177 bpm (threshold of AICD is 180). Patient's aircraft maintenance supervisor s are Dr. Joy and Dr. Chavez Relevant Labs or Studies: Trop nl, CXR nl Current Reported Vital Signs: VSS (08/17/18 195 : Pancho Gonsalves MD) 10:42 PM History of Present Illness Patient Identification Franci Velázquez is a 73 y.o. male. Patient information was obtained from patient. History/Exam limitations: none. Patient presented to the Emergency Department by: Ambulance Chief Complaint Chief Complaint Patient presents with Irregular Heart Beat pt symptomatic with runs of VTach The patient presents to ED with complaints of irregular heart beat. Onset of symptoms was 2 hrs ago, with a consistent course since that time. The symptoms are described to be of mode rate severity. The patient describes the quality and location of the symptoms as the followi ng: Patient reports needing to go to the bathroom. Sat down and then woke up on the floor. Weak and passed out while at home. Once at the hospital he felt terrible. The patient also complains of nausea, chest pain, an d chills. Patient denies diarrhea, dizziness, or any other symptoms at this time. Care PRINCIPAL PROGRAMMER was reported. PCP: Carla Murphy Past Medical History Diagnosis Date AAA (abdominal aortic aneurysm) (HCC) COPD (chronic obstructive pulmonary disease) (HCC) Diabetes mellitus (HCC) pre diabetic per PCP Enlarged heart [place] (hard of hearing) Hyperlipidemia Hypertension MOISÉS (obstructive sleep apnea) 01/21/2017 Pacemaker Past Surgical History Procedure Laterality Date AORTIC ENDOGRAFT N/A 09/23/2014 Procedure: AORTIC - ENDOGRAFT; Surgeon: Vincent Fields MD; Location: [facility] OR/[facility]NA[facility] SECOND[facility]; Serv ice: Vascular; Laterality: N/A; APPENDECTOMY HAND SURGERY tube put in to drain infection. Was put out for it as a child HERNIA REPAIR PACEMAKER INSERTION 01/22/2014 TUMOR REMOVAL head and neck Prior to Admission medications Medication Sig Start Date End Date Taking? Authorizing Provider aspirin 81 MG EC tablet Take 81 mg by mouth daily. Yes Historical Provider Cholecalciferol (VITAMIN D3) 42015 UNITS CAPS Take 5,000 Int'l Units by mouth daily. Yes Historical Provider digoxin (LANOXIN) 0.25 MG tablet Take 1 tablet by mouth daily. 07/30/18 07/30/19 Yes Constantin cadena MD furosemide (LASIX) 20 MG tablet Take 1 tablet by mouth every other day. 05/15/18 Yes Juan A Joy MD Magnesium 250 MG TABS tablet Take 250 mg by mouth daily. Yes Historical Provider metFORMIN (GLUCOPHAGE) 500 MG tablet Take 500 mg by mouth daily. Yes Historical Provider atorvastatin (LIPITOR) 20 MG tablet Take 20 mg by mouth nightly. Historical Provider clopidogrel (PLAVIX) 75 MG tablet Take 75 mg by mouth daily. Historical Provider fluticasone (FLONASE) 50 MCG/ACT nasal 1 spray by Each Nare route daily. Historical Prov ider levothyroxine (SYNTHROID) 88 MCG tablet Take 88 mcg by mouth every morning before breakfast . Pt taking 88 mcg daily Historical Provider loratadine (CLARITIN) 10 MG tablet Take 10 mg by mouth daily. Historical Provider meloxicam (MOBIC) 15 MG tablet Take 15 mg by mouth daily. Historical Provider metoprolol (TOPROL-XL) 25 MG 24 hr tablet Take 0.5 tablets by mouth daily. 05/15/18 Juan A Joy MD metoprolol (TOPROL-XL) 25 MG 24 hr tablet Take 1 tablet by mouth 2 (two) times daily. 07/3007/30/19 Constantin Chavez MD Allergies Allergen Reactions Codeine Anaphylaxis and Other (See Comments) Heart stops 08/18/18 Patient says he tolerated morphine at [facility] Demerol [Meperidine] Other (See Comments) and Angioedema Heart stops 08/18/18 Patient says he tolerated morphine at [facility] Norflex [Orphenadrine] Anaphylaxis and Other (See Comments) Heart stops 08/18/18 Patient says he tolerated morphine at [facility] Percodan [Oxycodone-Aspirin] Other (See Comments) Heart Stops 08/18/18 Patient says he tolerated morphine at [facility] Nitroglycerin Other (See Comments) Liquid nitro Heart stops Penicillins Rash Social History Social History Marital status: Spouse name: N/A Number of children: N/A Years of education: N/A Occupational History Not on file. Social History Main Topics Smoking status: Never Smoker Smokeless tobacco: Never Used Comment: has second hand smoke exposure Alcohol use No Comment: very rare Drug use: No Sexual activity: Not on file Other Topics Concern Not on file Social History Narrative No narrative on file Family History Problem Relation Age of Onset Heart defect Mother Heart disease Mother Gout Father CVA Sister Bowel Disease Sister Leukemia Brother Review of Systems Constitutional: Positive for chills Negative for fever Eyes: Negative for vision changes Nose: Negative for congestion, nosebleeds Throat: Negative for sore throat CV/Resp: Positive for chest pain Negative for rzotauaip-[id number]-nijigq, cough GI: Positive for nausea Negative for abdominal pain, diarrhea, vomiting : Negative for urinary problems Musculoskeletal: Negative for back pain, joint pain Skin: Negative for rash Neuro/Psych: Negative for headache Endo/heme/Lymph: Negative for swollen lymph nodes, easy bruising All other systems reviewed and negative except as noted. Physical Exam BP 128/68 (BP Location: Left upper arm) | Pulse 77 | Temp 98.7 F (37.1 C) (Oral) | R karma 16 | Ht 1.753 m (5' 9") | Wt 100.7 kg (222 lb) | SpO2 92% | BMI 32.78 kg/m Vital signs interpretation: WNL Pulse Oximetry interpretation: Hypoxemic General: Alert, in no apparent distress Eyes: Normal inspection, pupils equal and round, non-icteric ENT: Ears normal Nose normal Pharynx normal Neck: Normal inspection Supple Cardiovascular: Rate and rhythm normal No murmurs Respiratory: Breath sounds normal bilaterally No rales, wheezing or rhonchi Abdomen: Soft, non-tender, non-distended No guarding or rebound Genitourinary: Deferred Rectal exam: Deferred Back: Normal inspection Skin: Mildly pale Warm and dry No rash Neuro: Alert, no AMS No gross motor/sensory deficits Medical Decision Making and Emergency Department Course ED Department Course Patient presents to ED with complaints of irregular heart, syncope, and abd pain. On exam t he patient is mildly pale. My DDx includes, but is not limited to: patient had work up done prior to arrival was found to run a pattern of ventricular tachycardia. Patient does complai n of tiredness, possible due to digoxin. Does not want to continue to take digoxin. Will ord er imaging and reevaluate the patient. 10:[address] Sarabia is going to assess patient. 1:01 AM Care handoff to the floor. Records Reviewed Old medical records. Nursing notes. Previous ED visits for similar and unrelated complaints. Laboratory Evaluation Results None I personally reviewed the lab results and they have been posted to the chart. Pertinent po sitive and negative findings have been addressed appropriately. Radiology and EKG Evaluation Imaging Results None Imaging done at [facility] 17:17 Impression: Shallow inspirations. Equivocal congestion failure changes. EK:08 Normal sinus rhythm at 87 bmp suspect unspecified pacemaker failure. Normal [place] and LAT[place]HA Atrial sensed ventricular paced rhythm Normal QRS and [place] 158 ms Abnormal EKG Normal QT and QTc Normal ST/T without acute ischemic changes EKG dated 12 unchanged in comparison to todays EKG. Interpreted by Jose Luis Varela DO EKG at : 22:32 Atrial- sensed ventricular paced rhythm with occasional premature ventricular complexes at 74 bmp Normal WA and [place] Normal QRS and [place] Normal QT and QTc Normal ST/T without acute ischemic changes EKG dated 08/17/18 unchanged in comparison to todays EKG. Interpreted by Jose Luis Varela DO ED Diagnoses Final diagnoses Syncope, unspecified syncope type V-tach (HCC) Disposition: ED Disposition ED Disposition Condition Comment Admit/Observation Bed request special needs: None Diagnosis?: vtach Follow-up Information Follow up With Specialties Details Why Contact Info [facility] Emergency Department Emergency Medicine Go to If symptoms worsen [address] [facility] [id number] Carla Murphy PA-C Family Medicine Schedule an appointment as soon as possible for a visit in 1 week For follow up in one week [id number] [place] [id number] Discharge Medications: Discharge Medication List as of 08/19/2018 2:01 PM START taking these medications Details amiodarone (PACERONE) 400 MG tablet Take 1 tablet by mouth 2 (two) times daily for 30 days. , Starting Sun08/19/2018, Until Sun09/18/2018, Print Procedures Additional Documentation Procedures Attending Provider Note: IJose Luis DO personally performed the services described i n this documentation, as scribed by Emmie Ortiz in my presence, and it is both accurate and complete. Chart Reviewed and Completed: 08/27/18 4:04 AM Scribe: Terri Sanabria, scribing for and in the presence of Jose Luis Varela DO Signed by: Terri Cota 08/27/18 4:04 AM Jose Luis Varela DO 08/27/18 0404 onversion Transactlacey aparicio, Provider Unknown - 08/17/2018 10:29 PM PST ED Notes by Ruby Dangelo RN at 08/17/182228 Author: Ruby Dangelo RN Service: (none) Author Type: Registered Nurse Filed: 08/17/182228 Date of Service: 08/17/182228 Status: Signed Electrical Engineering Technician: Ruby Dangelo RN (Registered Nurse) Bed: 03 Expected date: Expected time: Means of arrival: Comments: Incheliumzo Dangelo RN 08/17/182228 onver chetna Jose, Provider Unknown - 08/17/2018 9:18 PM PST ED Notes by Ruby Dangelo RN at 08/17/182117 Author: Ruby Dangelo RN Service: (none) Author Type: Registered Nurse Filed: 08/17/182125 Date of Service: 08/17/182117 Status: Signed Electrical Engineering Technician: Ruby Dangelo RN (Registered Nurse) Report from KEEGAN Shaffer at [facility]: pt states he has been feeling "unwell for awhile." pt presented to their ER [facility] and had a syncopal episode in the bathroom wit h crushing CP. All EKG's and lab results came back normal. Pt has a defibrillator/pacer and reports he did not feel a shock, but states he did feel "like my heart is trying to beat out of my chest." [employer] performed an interrogation on pt's pacemaker. They state that at th e time of pt's syncopal episode, he had a 27sec run of VTach and his pacemaker is set to sam ck at 30sec. Pt is a transfer to our facility for further cardiac evaluation. Pt has 18ga IV 's in bilat AC's. Given 324mg ASA and 8mg Morphine. Pt has a current med list documented and verified by pharmacist per [facility]. Arrival to our ER by ground ambulance at 2200. Ruby Dangelo RN 08/17/182125 docume nted in this encounter Miscellaneous Notes Plan of Care - Conversion Transaction, Provider Unknown - 08/19/2018 10:45 AM PST Plan of Care by Milagros Kirkland RN at 08/19/181044 Author: Milagros Kirkland RN Service: (none) Author Type: Registered Nurse Filed: 08/19/181044 Date of Service: 08/19/181044 Status: Signed Electrical Engineering Technician: Milagros Kirkland RN (Registered Nurse) Problem: Safety Goal: Patient will be injury free during hospitalization Assess and monitor vitals signs, neurological status including level of consciousness and o rientation. Assess patient's risk for falls and implement fall prevention plan of care and i nterventions per hospital policy. Ensure arm band on, uncluttered walking paths in room, adequate room lighting, call light a nd overbed table within reach, bed in low position, wheels locked, side rails up per policy, and non-skid footwear provided. Outcome: Progressing Bed locked and in lowest position, call light within reach, side rails up x2, and patients needs are met. lan o f Care - Conversion Transaction, Provider Unknown - 08/19/2018 1:19 AM PSTFormatting of thi s note might be different from the original. Plan of Care by Naveen Caldwell RN at 08/19/18118 Author: Naveen Caldwell RN Service: (none) Author Type: Registered Nurse Filed: 08/19/18118 Date of Service: 08/19/18118 Status: Signed Electrical Engineering Technician: Naveen Caldwell RN (Registered Nurse) Problem: Pain Goal: Patient's pain/discomfort is manageable Assess and monitor patient's pain using appropriate pain scale. Collaborate with interdisci plinary team and initiate plan and interventions as ordered. Re-assess patient's pain level approximately 1-2 hours after pain management intervention. Premedicate as needed. Outcome: Progressing Pt not having pain at this time. lan o f Care - Conversion Transaction, Provider Unknown - 08/18/2018 10:41 AM PSTFormatting of thi s note might be different from the original. Plan of Care by Marii Garza RN at 08/18/181040 Author: Marii Garza RN Service: (none) Author Type: Registered Nurse Filed: 08/18/181040 Date of Service: 08/18/181040 Status: Signed Electrical Engineering Technician: Marii Garza RN (Registered Nurse) Problem: Safety Goal: Patient will be injury free during hospitalization Assess and monitor vitals signs, neurological status including level of consciousness and o rientation. Assess patient's risk for falls and implement fall prevention plan of care and i nterventions per hospital policy. Ensure arm band on, uncluttered walking paths in room, adequate room lighting, call light a nd overbed table within reach, bed in low position, wheels locked, side rails up per policy, and non-skid footwear provided. Outcome: Progressing Pt calls appropriately, non skid socks on, bed in the low and locked position, patient up w ith asst. lan o f Care - Conversion Transaction, Provider Unknown - 08/18/2018 1:43 AM PSTFormatting of thi s note might be different from the original. Plan of Care by Alize Rosas RN at 08/18/18142 Author: Alize Rosas RN Service: (none) Author Type: Registered Nurse Filed: 08/18/18142 Date of Service: 08/18/18142 Status: Signed Electrical Engineering Technician: Alize Rosas RN (Registered Nurse) Problem: Safety Goal: Patient will be injury free during hospitalization Assess and monitor vitals signs, neurological status including level of consciousness and o rientation. Assess patient's risk for falls and implement fall prevention plan of care and i nterventions per hospital policy. Ensure arm band on, uncluttered walking paths in room, adequate room lighting, call light a nd overbed table within reach, bed in low position, wheels locked, side rails up per policy, and non-skid footwear provided. Outcome: Progressing Ensure arm band on, uncluttered walking paths in room, adequate room lighting, call light a nd overbed table within reach, bed in low position, wheels locked, side rails up per policy, and non-skid footwear provided. docume nted in this encounter Plan of [...] DR | | | | | | [facility] [address] | | | | | | [phone] | | | | | | | [...] XR CHEST 2 VIEWS | Routin | 08/19/2018 | | Results for this | | | e | 8:00 AM | | procedure are in the | | | | PST | | results section. | + +--------+ + + + | POC GLUCOSE | Routin | 08/19/2018 | | Results for this | | | e | 5:12 AM | | procedure are in the | | | | PST | | results section. | + +--------+ + + + | POC GLUCOSE | Routin | 08/18/2018 | | Results for this | | | e | 9:21 PM | | procedure are in the | | | | PST | | results section. | + +--------+ + + + | POC GLUCOSE | Routin | 08/18/2018 | | Results for this | | | e | 4:09 PM | | procedure are in the | | | | PST | | results section. | + +--------+ + + + | POC GLUCOSE | Routin | 08/18/2018 | | Results for this | | | e | 11:46 AM | | procedure are in the | | | | PST | | results section. | + +--------+ + + + | VAS CAROTID DUPLEX | Routin | 08/18/2018 | | Results for this | | BILATERAL | e | 10:53 AM | | procedure are in the | | | | PST | | results section. | + +--------+ + + + | POC GLUCOSE | Routin | 08/18/2018 | | Results for this | | | e | 5:48 AM | | procedure are in the | | | | PST | | results section. | + +--------+ + + + | EXTERNAL LAB: CBC | Routin | 08/18/2018 | | Results for this | | | e | 4:54 AM | | procedure are in the | | | | PST | | results section. | + +--------+ + + + | LIPID PANEL | Routin | 08/18/2018 | | Results for this | | | e | 4:54 AM | | procedure are in the | | | | PST | | results section. | + +--------+ + + + | TROPONIN I | Routin | 08/18/2018 | | Results for this | | | e | 4:54 AM | | procedure are in the | | | | PST | | results section. | + +--------+ + + + | CK-MB | Routin | 08/18/2018 | | Results for this | | | e | 4:54 AM | | procedure are in the | | | | PST | | results section. | + +--------+ + + + | TSH | Routin | 08/18/2018 | | Results for this | | | e | 4:54 AM | | procedure are in the | | | | PST | | results section. | + +--------+ + + + | PHOSPHORUS | Routin | 08/18/2018 | | Results for this | | | e | 4:54 AM | | procedure are in the | | | | PST | | results section. | + +--------+ + + + | MAGNESIUM | Routin | 08/18/2018 | | Results for this | | | e | 4:54 AM | | procedure are in the | | | | PST | | results section. | + +--------+ + + + | HEMOGLOBIN A1C | Routin | 08/18/2018 | | Results for this | | | e | 4:54 AM | | procedure are in the | | | | PST | | results section. | + +--------+ + + + | CK TOTAL | Routin | 08/18/2018 | | Results for this | | | e | 4:54 AM | | procedure are in the | | | | PST | | results section. | + +--------+ + + + | DIGOXIN LEVEL | Routin | 08/18/2018 | | Results for this | | | e | 4:54 AM | | procedure are in the | | | | PST | | results section. | + +--------+ + + + | BASIC METABOLIC | Routin | 08/18/2018 | | Results for this | | PANEL | e | 4:54 AM | | procedure are in the | | | | PST | | results section. | + +--------+ + + + | ECG 12 LEAD | Routin | 08/18/2018 | | Results for this | | | e | 4:01 AM | | procedure are in the | | | | PST | | results section. | + +--------+ + + + | POC GLUCOSE | Routin | 08/18/2018 | | Results for this | | | e | 1:21 AM | | procedure are in the | | | | PST | | results section. | + +--------+ + + + | TROPONIN I | Routin | 08/18/2018 | | Results for this | | | e | 1:18 AM | | procedure are in the | | | | PST | | results section. | + +--------+ + + + | CK-MB | Routin | 08/18/2018 | | Results for this | | | e | 1:18 AM | | procedure are in the | | | | PST | | results section. | + +--------+ + + + | CK TOTAL | Routin | 08/18/2018 | | Results for this | | | e | 1:18 AM | | procedure are in the | | | | PST | | results section. | + +--------+ + + + | ECG 12 LEAD | Routin | 08/17/2018 | | Results for this | | | e | 10:32 PM | | procedure are in the | | | | PST | | results section. | + +--------+ + + + documented in this encounter Results XR Chest 2 Vws (08/19/2018 8:00 AM PST) + + | Specimen | + + | | + + + + + | Impressions | Performed At | + + + | 1. Persistent mild to moderate elevation of the left hemidiaphragm | | | with left basilar atelectasis. 2. Persistent mild cardiac | | | enlargement with sequential AICD. | | + + + + + + | Narrative | Performed At | + + + | HISTORY: Chest pain. Ventricular tachycardia. COMPARISON: | | | 11/02/15. TECHNIQUE: PA and lateral films of the chest. | | | FINDINGS: Persistent moderate elevation of the left hemidiaphragm. | | | Persistent mild cardiac enlargement with sequential AICD over the left | | | chest wall. No congestion. Persistent strandy left basilar | | | atelectasis. Mild degenerative changes of the thoracic spine. | | | Abdominal aortic endostent is partially included. | | + + + + + | Procedure Note | + + | Mike, Rad Conversion - 04/02/2019 4:53 AM PDT HISTORY:Chest pain. Ventricular | | tachycardia. COMPARISON:11/02/15. TECHNIQUE:PA and lateral films of the chest. | | FINDINGS:Persistent moderate elevation of the left hemidiaphragm. Persistent mild | | cardiac enlargement with sequential AICD over the left chest wall. No congestion. | | Persistent strandy left basilar atelectasis. Mild degenerative changes of the thoracic | | spine. Abdominal aortic endostent is partially included. IMPRESSION: 1. Persistent mild | | to moderate elevation of the left hemidiaphragm with left basilar atelectasis.2. | | Persistent mild cardiac enlargement with sequential AICD. | |FINDINGS: | |Persistent moderate elevation of the left hemidiaphragm. Persistent mild cardiac enlargemen t with sequential AICD over the left chest wall. No congestion. Persistent strandy left basi lar atelectasis. Mild degenerative changes of the thoracic spine. | |Abdominal aortic endostent is partially included. | | | |IMPRESSION: | |1. Persistent mild to moderate elevation of the left hemidiaphragm with left basilar atele ctasis. | |2. Persistent mild cardiac enlargement with sequential AICD. | | | | | + + POC Glucose (08/19/2018 5:12 AM PST) + + + + + + | Component | Value | Ref Range | Performed | Pathologist | | | | | At | Signature | + + + + + + | Glucose, | 114 (H)Comment: Testing | 65 - 99 mg/dL | EXTERNAL | | | Fingerstick | performed at [facility] [place] | | LAB | | | | [address];[place] | | | | | | [address] | | | | + + + + + + + + | Specimen | + + | | + + + +---------+ + + | Performing | Address | City/State/Zipcode | Phone Number | | Organization | | | | + +---------+ + + | EXTERNAL LAB | | | | + +---------+ + + POC Glucose (08/18/2018 9:21 PM PST) + + + + + + | Component | Value | Ref Range | Performed | Pathologist | | | | | At | Signature | + + + + + + | Glucose, | 113 (H)Comment: Testing | 65 - 99 mg/dL | EXTERNAL | | | Fingerstick | performed at [facility] [place] | | LAB | | | | [address];[place], [place] | | | | | | [address] | | | | + + + + + + + + | Specimen | + + | | + + + +---------+ + + | Performing | Address | City/State/Zipcode | Phone Number | | Organization | | | | + +---------+ + + | EXTERNAL LAB | | | | + +---------+ + + POC Glucose (08/18/2018 4:09 PM PST) + + + + + + | Component | Value | Ref Range | Performed | Pathologist | | | | | At | Signature | + + + + + + | Glucose, | 106 (H)Comment: Testing | 65 - 99 mg/dL | EXTERNAL | | | Fingerstick | performed at [facility] [place] | | LAB | | | | [address];[place] | | | | | | [address] | | | | + + + + + + + + | Specimen | + + | | + + + +---------+ + + | Performing | Address | City/State/Zipcode | Phone Number | | Organization | | | | + +---------+ + + | EXTERNAL LAB | | | | + +---------+ + + POC Glucose (08/18/2018 11:46 AM PST) + + + + + + | Component | Value | Ref Range | Performed | Pathologist | | | | | At | Signature | + + + + + + | Glucose, | 107 (H)Comment: Testing | 65 - 99 mg/dL | EXTERNAL | | | Fingerstick | performed at [facility] [place] | | LAB | | | | [address];[place] | | | | | | [address] | | | | + + + + + + + + | Specimen | + + | | + + + +---------+ + + | Performing | Address | City/State/Zipcode | Phone Number | | Organization | | | | + +---------+ + + | EXTERNAL LAB | | | | + +---------+ + + VAS Carotid Duplex Bilateral (08/18/2018 10:53 AM PST) + + | Specimen | + + | | + + + + + | Impressions | Performed At | + + + | 1. Right ICA: Grade 2 (<50%). Intimal common carotid artery | | | thickening and minimal plaque at the bulb. 2. Left ICA: Grade 2 | | | (<50%). Intimal common carotid artery thickening and minimal plaque | | | at the bulb. 3. The vertebral arteries demonstrate normal antegrade | | | flow and velocities bilaterally. | | + + + + + + | Narrative | Performed At | + + + | FRANCI VELÁZQUEZ US CAROTID DOPPLER, BILATERAL 08/18/2018 10:53 | | | AM HISTORY: 73 years. Male. Syncope. Ventricular | | | tachycardia. TECHNIQUE: Imaging was performed with a linear array | | | transducer. A duplex exam was performed including grayscale, color | | | flow and pulsed wave spectral Doppler techniques. COMPARISON: | | | Partial comparison with a CTA PE chest study 08/13/2015 FINDINGS: | | | RIGHT SIDE: The right common carotid, internal carotid and external | | | carotid arteries are widely patent. No intimal thickening is noted. | | | No soft or calcified plaques are noted. CCA-PROX PSV: 79.3 | | | (cm/s) CCA-DIST PSV: 70.6 (cm/s) ICA-PROX PSV: 76.8 (cm/s) ICA-MID | | | PSV: 73.6 (cm/s) ICA-DIST PSV: 78 (cm/s) ECA-PROX PSV: 79.8 (cm/s) | | | VERTEBRAL PSV: 49 (cm/s) RATIO ICA/CCA (PSV): 1.0 VERTEBRAL FLOW: | | | antegrade flow LEFT SIDE: The left common carotid, internal | | | carotid and external carotid arteries are widely patent. No soft or | | | calcified plaques are noted. CCA-PROX PSV: 109.5 (cm/s) CCA-DIST | | | PSV: 92.7 (cm/s) ICA-PROX PSV: 72 (cm/s) ICA-MID PSV: 115.6 (cm/s) | | | ICA-DIST PSV: 97.8 (cm/s) ECA-PROX PSV: 75.8 (cm/s) VERTEBRAL PSV: | | | 48 (cm/s) RATIO ICA/CCA (PSV): 1.0 VERTEBRAL FLOW: antegrade flow | | | GRADING SYSTEM USED: Validated velocity measurements with | | | angiographic measurements, velocity criteria are extrapolated from | | | diameter data as defined by the Carotid Artery Stenosis: Lozoya-scale | | | and Doppler US Diagnosis--Society of Radiologists in Ultrasound | | | Consensus Conference. Radiology. 2003;229(2):340-346. Grade 1: | | | Normal. 0% stenosis PSV <125 cm/s (No visible plaque or intimal | | | thickening) Grade 2: <50% stenosis PSV <125 cm/s (Visible plaque or | | | intimal thickening) Grade 3: 50-69% stenosis PSV >125 cm/s | | | (Visible plaque) Grade 4: > or =70% stenosis to near occlusion PSV | | | >230 cm/s (Visible plaque) Grade 5: Near Occlusion (Markedly | | | narrowed lumen at color Doppler US) Grade 6: Total Occlusion (No | | | detectable patent lumen at lozoya-scale US and no flow at spectral, | | | power, and color Doppler US) ICA/CCA RATIO If < 2 then Grades 1 | | | or 2. If > 2 and < 4 then Grade 3. If > 4 then Grade 4 or above. | | | Example: If PSV meets criteria for Grade 3 stenosis (>125 cm/sec) but | | | the ICA/CCA ratio is <2, then this would downgrade it to Grade 2 | | | rather than Grade 3. | | + + + + + | Procedure Note | + + | Imke, Rad Conversion - 04/02/2019 4:53 AM PDT FRANCI HOLT CAROTID DOPPLER, | | [id number]/30/2018 10:53 AM HISTORY:73 years. Male. Syncope. Ventricular | | tachycardia. TECHNIQUE:Imaging was performed with a linear array transducer. A duplex | | exam was performed including grayscale, color flow and pulsed wave spectral Doppler | | techniques. COMPARISON:Partial comparison with a CTA PE chest study 08/13/2015 | | FINDINGS:RIGHT SIDE:The right common carotid, internal carotid and external carotid | | arteries are widely patent. No intimal thickening is noted. No soft or calcified | | plaques are noted. CCA-PROX PSV: 79.3 (cm/s)CCA-DIST PSV: 70.6 (cm/s)ICA-PROX PSV: 76.8 | | (cm/s)ICA-MID PSV: 73.6 (cm/s)ICA-DIST PSV: 78 (cm/s)ECA-PROX PSV: 79.8 (cm/s)VERTEBRAL | | PSV: 49 (cm/s)RATIO ICA/CCA (PSV): 1.0VERTEBRAL FLOW: antegrade flow LEFT SIDE:The left | | common carotid, internal carotid and external carotid arteries are widely patent. No | | soft or calcified plaques are noted. CCA-PROX PSV: 109.5 (cm/s)CCA-DIST PSV: 92.7 | | (cm/s)ICA-PROX PSV: 72 (cm/s)ICA-MID PSV: 115.6 (cm/s)ICA-DIST PSV: 97.8 (cm/s)ECA-PROX | | PSV: 75.8 (cm/s)VERTEBRAL PSV: 48 (cm/s)RATIO ICA/CCA (PSV): 1.0VERTEBRAL FLOW: | | antegrade flow GRADING SYSTEM USED:Validated velocity measurements with angiographic | | measurements, velocity criteria are extrapolated from diameter data as defined by the | | Carotid Artery Stenosis: Lozoya-scale and Doppler US Diagnosis--Society of Radiologists in | | Ultrasound Consensus Conference. Radiology. 2003;229(2):340-346. Grade 1: Normal. 0% | | stenosis PSV <125 cm/s (No visible plaque or intimal thickening)Grade 2: <50% stenosis | | PSV <125 cm/s (Visible plaque or intimal thickening)Grade 3: 50-69% stenosis PSV >125 | | cm/s (Visible plaque)Grade 4: > or =70% stenosis to near occlusion PSV >230 cm/s | | (Visible plaque)Grade 5: Near Occlusion (Markedly narrowed lumen at color Doppler | | US)Grade 6: Total Occlusion (No detectable patent lumen at lozoya-scale US and no flow at | | spectral, power, and color Doppler US) ICA/CCA RATIOIf < 2 then Grades 1 or 2.If > 2 and | | < 4 then Grade 3.If > 4 then Grade 4 or above.Example: If PSV meets criteria for Grade | | 3 stenosis (>125 cm/sec) but the ICA/CCA ratio is <2, then this would downgrade it to | | Grade 2 rather than Grade 3. IMPRESSION: 1. Right ICA: Grade 2 (<50%). Intimal common | | carotid artery thickening and minimal plaque at the bulb.2. Left ICA: Grade 2 (<50%). | | Intimal common carotid artery thickening and minimal plaque at the bulb.3. The | | vertebral arteries demonstrate normal antegrade flow and velocities bilaterally. | | | |CCA-DIST PSV: 92.7 (cm/s) | |ICA-PROX PSV: 72 (cm/s) | |ICA-MID PSV: 115.6 (cm/s) | |ICA-DIST PSV: 97.8 (cm/s) | |ECA-PROX PSV: 75.8 (cm/s) | |VERTEBRAL PSV: 48 (cm/s) | |RATIO ICA/CCA (PSV): 1.0 | |VERTEBRAL FLOW: antegrade flow | | | |GRADING SYSTEM USED: | |Validated velocity measurements with angiographic measurements, velocity criteria are extra polated from diameter data as defined by the Carotid Artery Stenosis: Lozoya-scale and Doppler US Diagnosis--Society of Radiologists in Ultrasound Consensus | |Conference. Radiology. 2003;229(2):340-346. | | | |Grade 1: Normal. 0% stenosis PSV <125 cm/s (No visible plaque or intimal thickening) | |Grade 2: <50% stenosis PSV <125 cm/s (Visible plaque or intimal thickening) | |Grade 3: 50-69% stenosis PSV >125 cm/s (Visible plaque) | |Grade 4: > or =70% stenosis to near occlusion PSV >230 cm/s (Visible plaque) | |Grade 5: Near Occlusion (Markedly narrowed lumen at color Doppler US) | |Grade 6: Total Occlusion (No detectable patent lumen at lozoya-scale US and no flow at spectr al, power, and color Doppler US) | | | |ICA/CCA RATIO | |If < 2 then Grades 1 or 2. | |If > 2 and < 4 then Grade 3. | |If > 4 then Grade 4 or above. | |Example: If PSV meets criteria for Grade 3 stenosis (>125 cm/sec) but the ICA/CCA ratio is <2, then this would downgrade it to Grade 2 rather than Grade 3. | | | |IMPRESSION: | |1. Right ICA: Grade 2 (<50%). Intimal common carotid artery thickening and minimal plaque at the bulb. | |2. Left ICA: Grade 2 (<50%). Intimal common carotid artery thickening and minimal plaque at the bulb. | |3. The vertebral arteries demonstrate normal antegrade flow and velocities bilaterally. | | | | | + + POC Glucose (08/18/2018 5:48 AM PST) + + + + + + | Component | Value | Ref Range | Performed | Pathologist | | | | | At | Signature | + + + + + + | Glucose, | 112 (H)Comment: Testing | 65 - 99 mg/dL | EXTERNAL | | | Fingerstick | performed at [facility] [place] | | LAB | | | | [address];[place] | | | | | | [address] | | | | + + + + + + + + | Specimen | + + | | + + + +---------+ + + | Performing | Address | City/State/Zipcode | Phone Number | | Organization | | | | + +---------+ + + | EXTERNAL LAB | | | | + +---------+ + + CK-MB (08/18/2018 4:54 AM PST) + + + + + -+ | Component | Value | Ref Range | Performed | Pathologist | | | | | At | Signature | + + + + + -+ | CK-MB | 1.6 | 0.5 - 3.6 ng/mL | EXTERNAL | | | | | | LAB | | + + + + + -+ | CK-MB Index | 5.0Comment: CK INDEX | | EXTERNAL | | [...] | + +---------+ + + Troponin I (08/18/2018 4:54 AM PST) + + + + + + | Component | Value | Ref Range | Performed | Pathologist | | | | | At | Signature | + + + + + + | Troponin I, | 0.021Comment: 0.00 to | 0.00 - 0.10 | EXTERNAL | | | Qual | 0.10 CONSISTENT WITH | ng/mL | LAB | | | | NORMAL POPULATION0.11 to | | | | | | 0.60 CONSISTENT WITH | | | | | | INCREASED RISK FOR | | | | | | ADVERSE OUTCOMES> 0.60 | | | | | | CONSISTENT | | | | | | WITH WHO CRITERIA FOR | | | | | | ACUTE NH Testing | | | | | | performed at [facility] | | | | | | [facility];[place], [place] | | | | | | [address] | | | | + + + [...] + +---------+ + + External Lab: CBC (08/18/2018 4:54 AM PST) + + + + + + | Component | Value | Ref Range | Performed | Pathologist | | | | | At | Signature | + + + + + + | WBC | 10.67 | 3.80 - 11.00 | EXTERNAL | | | | | K/uL | LAB | | + + + + + + | Red Blood | 4.27 | 4.20 - 5.70 | EXTERNAL | | | Cells | | M/uL | LAB | | | Counted | | | | | + + + + + + | Hemoglobin | 13.0 (L) | 13.2 - 17.0 | EXTERNAL | | | | | g/dL | LAB | | + + + + + + | Hematocrit, | 38.3 (L) | 39.0 - 50.0 % | EXTERNAL | | | POC | | | LAB | | + + + + + + | MCV | 89.6 | 80.0 - 100.0 fl | EXTERNAL | | | | | | LAB | | + + + + + + | MCH | 30.3 | 27.0 - 34.0 pg | EXTERNAL | | | | | | LAB | | + + + + + + | MCHC | 33.8 | 32.0 - 35.5 | EXTERNAL | | | | | g/dL | LAB | | + + + + + + | RDW-CV | 45.5 | 37 - 53 fl | EXTERNAL | | | | | | LAB | | + + + + + + | Platelet | 160 | 150 - 400 K/uL | EXTERNAL | | | Count | | | LAB | | | Plasma | | | | | + + + + + + | MPV | 8.6 | fl | EXTERNAL | | | | | | LAB | | + + + + + + | Differentia | AUTOMATED | | EXTERNAL | | | l Type | | | LAB | | + + + + + + | % Segmented | 75.63 | % | EXTERNAL | | | | | | LAB | | | Neutrophils | | | | | + + + + + + | % | 14.48 | % | EXTERNAL | | | Lymphocytes | | | LAB | | + + + + + + | % Monocytes | 7.00 | % | EXTERNAL | | | | | | LAB | | + + + + + + | % | 2.02 | % | EXTERNAL | | | Eosinophils | | | LAB | | + + + + + + | % Basophils | 0.87 | % | EXTERNAL | | | | | | LAB | | + + + + + + | Absolute | 8.07 (H) | 1.90 - 7.40 | EXTERNAL | | | Segmented | | K/uL | LAB | | | Neutrophils | | | | | + + + + + + | Absolute | 1.55 | 1.00 - 3.90 | EXTERNAL | | | Lymphocytes | | K/uL | LAB | | + + + + + + | Absolute | 0.75 | 0.00 - 0.80 | EXTERNAL | | | Monocytes | | K/uL | LAB | | + + + + + + | Absolute | 0.22 | 0.00 - 0.50 | EXTERNAL | | | Eosinophils | | K/uL | LAB | | + + + + + + | Absolute | 0.09Comment: Testing | 0.00 - 0.10 | EXTERNAL | | | Basophils | performed at [facility], [address] | K/uL | LAB | | | | [address], | | | | | | [place] [address] | | | | + + + + + + + + | Specimen | + + | Blood specimen | | (specimen) | + + + +---------+ + + | Performing | Address | City/State/Zipcode | Phone Number | | Organization | | | | + +---------+ + + | EXTERNAL LAB | | | | + +---------+ + + TSH (08/18/2018 4:54 AM PST) + + + + + + | Component | Value | Ref Range | Performed | Pathologist | | | | | At | Signature | + + + + + + | TSH | 2.040Comment: Testing | 0.450 - 5.100 | EXTERNAL | | | | performed at [facility], [address] | uIU/mL | LAB | | | | [address], | | | | | | [place] [address] | | | | + + + + + + + + | Specimen | + + | Blood specimen | | (specimen) | + + + +---------+ + + | Performing | Address | City/State/Zipcode | Phone Number | | Organization | | | | + +---------+ + + | EXTERNAL LAB | | | | + +---------+ + + Phosphorus (08/18/2018 4:54 AM PST) + + + + + + | Component | Value | Ref Range | Performed | Pathologist | | | | | At | Signature | + + + + + + | PHOSPHORUS | 3.9Comment: Testing | 2.3 - 4.8 mg/dL | EXTERNAL | | | | performed at [facility], [address] | | LAB | | | | [address], | | | | | | [place] [address] | | | | + + + + + + + + | Specimen | + + | Blood specimen | | (specimen) | + + + +---------+ + + | Performing | Address | City/State/Zipcode | Phone Number | | Organization | | | | + +---------+ + + | EXTERNAL LAB | | | | + +---------+ + + Magnesium (08/18/2018 4:54 AM PST) + + + + + + | Component | Value | Ref Range | Performed | Pathologist | | | | | At | Signature | + + + + + + | Magnesium | 2.3Comment: Testing | 1.7 - 2.4 mg/dL | EXTERNAL | | | | performed at [facility], [address] | | LAB | | | | [address], | | | | | | [place] [address] | | | | + + + + + + + + | Specimen | + + | Blood specimen | | (specimen) | + + + +---------+ + + | Performing | Address | City/State/Zipcode | Phone Number | | Organization | | | | + +---------+ + + | EXTERNAL LAB | | | | + +---------+ + + Hemoglobin A1C (08/18/2018 4:54 AM PST) + + + + + + | Component | Value | Ref Range | Performed | Pathologist | | | | | At | [facility] | + + + + + + | Hemoglobin | 5.5Comment: The [place] | 4.0 - 6.0 % | EXTERNAL | | | A1c | Diabetes Association | | LAB | | | | considers a hemoglobin | | | | | | A1c result of <7.0% to | | | | | | be the goal of diabetic | | | | | | therapy. When results | | | | | | are consistently >8.0%, | | | | | | the ADA suggests | | | | | | reevaluation of the | | | | | | treatment regimen. The | | | | | | testing method used is | | | | | | certified traceable to | | | | | | the Diabetes Control and | | | | | | Complications Trial | | | | | | reference method. | | | | + + + + + + | Glycohemogl | 111Comment: The ADA | mg/dL | EXTERNAL | | | obin | considers an eAG result | | LAB | | | (GHb),Total | of LT 154 mg/dL to be | | | | | | the goal of diabetic | | | | | | therapy. Estimated | | | | | | Average Glucose | | | | | | calculated from | | | | | | hemoglobin A1c by use of | | | | | | the ADA recommended | | | | | | formula.Testing | | | | | | performed at [facility], [address] | | | | | [facility], | | | | | | [place] [address] | | | | + + + + + + + + | Specimen | + + | Blood specimen | | (specimen) | + + + +---------+ + + | Performing | Address | City/State/Zipcode | Phone Number | | Organization | | | | + +---------+ + + | EXTERNAL LAB | | | | + +---------+ + + CK Total (08/18/2018 4:54 AM PST) + + + + + + | Component | Value | Ref Range | Performed | Pathologist | | | | | At | [facility] | + + + + + + | CK, Total | 32 (L)Comment: Testing | 55 - 400 U/L | EXTERNAL | | | | performed at [facility] | | LAB | | | | [address];[place] | | | | | | [address] | | | | + + + + + + + + | Specimen | + + | Blood specimen | | (specimen) | + + + +---------+ + + | Performing | Address | City/State/Zipcode | Phone Number | | Organization | | | | + +---------+ + + | EXTERNAL LAB | | | | + +---------+ + + Digoxin Level (08/18/2018 4:54 AM PST) + + + + + + | Component | Value | Ref Range | Performed | Pathologist | | | | | At | [facility] | + + + + + + | Date of | UNKNOWN | | EXTERNAL | | | Last Dose | | | LAB | | + + + + + + | Time of | UNKNOWN | | EXTERNAL | | | Last Dose | | | LAB | | + + + + + + | Digoxin | 0.9Comment: Testing | 0.90 - 2.00 | EXTERNAL | | | level | performed at [facility] | ng/mL | LAB | | | | [address];[place], [place] | | | | | | [address] | | | | + + + + + + + + | Specimen | + + | Blood specimen | | (specimen) | + + + +---------+ + + | Performing | Address | City/State/Zipcode | Phone Number | | Organization | | | | + +---------+ + + | EXTERNAL LAB | | | | + +---------+ + + Lipid Panel (08/18/2018 4:54 AM PST) + + + + + + | Component | Value | Ref Range | Performed | Pathologist | | | | | At | [facility] | + + + + + + | Cholesterol | 76 | mg/dL | EXTERNAL | | | | | | LAB | | + + + + + + | Triglycerid | 102 | mg/dL | EXTERNAL | | | es | | | LAB | | + + + + + + | HDL | 29 (L) | mg/dL | EXTERNAL | | | | | | LAB | | + + + + + + | LDL, | 27Comment: Testing | mg/dL | EXTERNAL | | | Calculated | performed at [facility], [address] | | LAB | | | | [address], | | | | | | [place] [address] | | | | + + + [...] + +---------+ + + Basic Metabolic Panel (08/18/2018 4:54 AM PST) + + + + + + | Component | Value | Ref Range | Performed | Pathologist | | | | | At | [facility] | + + + + + + | Na | 141 | 135 - 145 | EXTERNAL | | | | | mmol/L | LAB | | + + + + + + | K | 3.9 | 3.5 - 4.9 | EXTERNAL | | | | | mmol/L | LAB | | + + + + + + | Cl | 101 | 99 - 109 mmol/L | EXTERNAL | | | | | | LAB | | + + + + + + | CO2 | 31 | 23 - 32 mmol/L | EXTERNAL | | | | | | LAB | | + + + + + + | Anion Gap | 13 | 5 - 20 mmol/L | EXTERNAL | | | | | | LAB | | + + + + + + | Glucose, | 136 (H) | 65 - 99 mg/dL | EXTERNAL | | | Fasting | | | LAB | | + + + + + + | BUN | 16 | 8 - 25 mg/dL | EXTERNAL | | | | | | LAB | | + + + + + + | Creatinine | 0.9 | 0.70 - 1.30 | EXTERNAL | | | | | mg/dL | LAB | | + + + + + + | BUN/Creatin | 18 | | EXTERNAL | | | ine Ratio | | | LAB | | + + + + + + | Calcium | 8.2 (L) | 8.5 - 10.5 | EXTERNAL [...] BY | | | | | | 1.210.This eGFR is | | | | | | calculated using the | | | | | | MDRD IDMS traceable | | | | | | equation.Testing | | | | | | performed at [facility], [address] | | | | | [address], | | | | | | [place] [address] | | | | + + + [...] + +---------+ + + ECG 12 lead (08/18/2018 4:01 AM PST) + + + + + + | Component | Value | Ref Range | Performed | Pathologist | | | | | At | [facility] | + + + + + + | DIAGNOSIS: | Sinus rhythm with | | EXTERNAL | | | | frequent AV dual-paced | | LAB | | | | complexes and Premature | | | | | | supraventricular | | | | | | complexes in a pattern | | | | | | of bigeminyLeft axis | | | | | | deviationNon-specific | | | | | | intra-ventricular | | | | | | conduction blockCannot | | | | | | rule out Lateral infarct | | | | | | , age | | | | | | undeterminedCannot rule | | | | | | out Inferior infarct , | | | | | | age undeterminedAbnormal | | | | | | ECGWhen compared with | | | | | | ECG of 17-AUG-2018 | | | | | | 22:32,Premature | | | | | | supraventricular | | | | | | complexes are now | | | | | | PresentVent. rate has | | | | | | decreased BY 2 | | | | | | BPMConfirmed by SHEILA | | | | | | DRE GALDAMEZ ([id number]) on | | | | | | 08/18/2018 10:27:07 AM | | | | + + + + + + + + | Specimen | + + | | + + + + + | Narrative | Performed At | + + + | Historically converted procedure from [facility] Epic environment | EXTERNAL LAB | + + + + +---------+ + + | Performing | Address | City/State/Zipcode | Phone Number | | Organization | | | | + +---------+ + + | EXTERNAL LAB | | | | + +---------+ + + POC Glucose (08/18/2018 1:21 AM PST) + + + + + + | Component | Value | Ref Range | Performed | Pathologist | | | | | At | [facility] | + + + + + + | Glucose, | 177 (H)Comment: Testing | 65 - 99 mg/dL | EXTERNAL | | | Fingerstick | performed at [facility] | | LAB | | | | [address];[place] | | | | | | [address] | | | | + + + + + + + + | Specimen | + + | | + + + +---------+ + + | Performing | Address | City/State/Zipcode | Phone Number | | Organization | | | | + +---------+ + + | EXTERNAL LAB | | | | + +---------+ + + CK-MB (08/18/2018 1:18 AM PST) + + + + + -+ | Component | Value | Ref Range | Performed | Pathologist | | | | | At | [facility] | + + + + + -+ | CK-MB | 1.8 | 0.5 - 3.6 ng/mL | EXTERNAL | | | | | | LAB | | + + + + + -+ | CK-MB Index | 4.0Comment: CK INDEX | | EXTERNAL | | [...] | + +---------+ + + Troponin I (08/18/2018 1:18 AM PST) + + + + + [...] | | | | | | ACUTE NH Testing | | | | | | performed at [facility] | | | | | | [facility];[place], [place] | | | | | | [address] | | | | + + + + + + + + | Specimen | + + | Blood specimen | | (specimen) | + + + +---------+ + + | Performing | Address | City/State/Zipcode | Phone Number | | Organization | | | | + +---------+ + + | EXTERNAL LAB | | | | + +---------+ + + CK Total (08/18/2018 1:18 AM PST) + + + + + + | Component | Value | Ref Range | Performed | Pathologist | | | | | At | [facility] | + + + + + + | CK, Total | 45 (L)Comment: SLT | 55 - 400 U/L | EXTERNAL | | | | HEMOLYSISTesting | | LAB | | | | performed at [facility] | | | | | [address];[place] | | | | | | [address] | | | | + + + [...] + +---------+ + + ECG 12 lead (08/17/2018 10:32 PM PST) + + + + + + | Component | Value | Ref Range | Performed | Pathologist | | | | | At | [facility] | + + + + + + | DIAGNOSIS: | Atrial-sensed | | EXTERNAL | | | | ventricular-paced rhythm | | LAB | | | | with occasional | | | | | | Premature ventricular | | | | | | complexesAbnormal | | | | | | ECGWhen compared with | | | | | | ECG of 21-JAN-2017 | | | | | | 06:33,Previous ECG has | | | | | | undetermined rhythm, | | | | | | needs reviewThis ECG | | | | | | contains Unconfirmed | | | | | | Interpretation | | | | | | Statements. See ED | | | | | | Record for Physician | | | | | | Interpretation. | | | | | | Confirmed by MUSE READ | | | | | | ONLY, -COMPUTER ([id number]), | | | | | | video effects editor Alyson Booth | | | | | | ([id number]) on 08/19/2018 | | | | | | 2:27:53 AM | | | | + + + + + + + + | Specimen | + + | | + + + + + | Narrative | Performed At | + + + | Historically converted procedure from [employer] Epic environment | EXTERNAL LAB | + + + + +---------+ + + | Performing | Address | City/State/Zipcode | Phone Number | | Organization | | | | + +---------+ + + | EXTERNAL LAB | | | | + +---------+ + + documented in this encounter Visit Diagnoses + + | Diagnosis | + + | Syncope, unspecified syncope type | + + | V-tach (HCC) Paroxysmal ventricular tachycardia | + + documented in this encounter
--- OUTSIDE RECORDS SUMMARY | ~2020-02-20 | XMS | Encounter Summary ---
Demographics + + + | Address | [address] | | | [place] [address] | + + + | Home Phone | | + + + | Preferred Language | Unknown | + + + | Marital Status | | + + + | Anabaptist Affiliation | Unknown | + + + | Race | Unknown | + + + | Ethnic Group | Unknown | + + + Author + + + | Author | [facility] | | | and [place] | + + + | Organization | [facility] | | | [...] Team Providers + +------+ + | Care Ax Survey Worker Name | Role | Phone | + +------+ + | Carla Murphy | PCP | | | PA-C | | | + +------+ + Reason for Visit + + + | Reason | Comments | + + + | Device Check | | | (In-office) | | + + + Encounter Details +--------+ + + + + | Date | Type | Department | Care Team | Description | +--------+ + + + + | 07/30/ | Procedure | [facility] | | Syncope and collapse | | 2019 | visit | [facility] | | (Primary Dx); | | | | [address] | | Cardiac | | | | [place], [place] | | resynchronization | | | | [address] | | therapy | | | | [phone] | | defibrillator | | | | | | (RN ER-D) in place; | | | | | | Non-sustained | | | | | | ventricular | | | | | | tachycardia (HCC); | | | | | | Non-ischemic [...] as of this encounter Procedure Notes Germain Shoemaker, Technologist - 07/30/2019 3:15 PM PSTAssociated Order(s): DEVICE INTE RROGATIONProcedure(s): DEVICE INTERROGATIONPre-Procedure Diagnose(s): Syncope and collapse; Cardiac resynchronization therapy defibrillator (RN ER-D) in place; Non-sustained ventricular tachycardia (HCC); Non-ischemic cardiomyopathy (HCC)Device interrogation done by Mary Tipton Any events or changes listed in office note. See device data attached to scheduled encounter for additional details. insurance loss adjuster: Orin Shoemaker, insurance loss adjuster [facility] Associated attestation - Mary Tipton ANP - 07/30/2019 4:43 PM PST Problem List Cardiac resynchronization therapy defibrillator (RN ER-D) in place Overview History of nonischemic cardiomyopathy, NYHA class II, status post implantation of a MDT C RT-D by Dr. Chiang in January 2010. Generator change by Dr. Delarosa in 2014 viva xt RN ER D MDT number [id number].Patient has a 5076 atrial lead [employer]. 6947 [...] at the time of his hospitalization at [facility]. Non-ischemic cardiomyopathy Overview EF 35-40%, class 2-3 symptoms, s/p AICD 07/30/2019 He did not tolerate PATTY or ARB or Entresto secondary to hypotension. He cannot tolerate Top rol XL, Bisoprolol or Coreg due to hypotension. Off furosemide given hypotension since 2018. No edema or orthopnea. Non-sustained ventricular tachycardia Overview 07/30/2019 Continue beta amgda therapy. He is only able to tolerate metoprolol tartrate 6.25 mg twi ce daily and is still having symptomatic blood pressures in the 80s systolic at times. We c annot advance this further or change to metoprolol succinate given his hypotension with mult iple syncopal and near syncopal events over the last year necessitating ER presentation. Ami odarone taper was recommended by Dr. Chavez 400mg BID x 1 week, 400mg daily x 1 week, then 20 0mg daily for suppression of NSVT. Consideration for Stress MPI. He denies any recent stress testing. Request echo results from [facility]. Will discuss next steps with Dr. Chavez and call the patient back with instructions. He is not to change any medications until he hears back from me. He verbalized understanding. Syncope and collapse Device follow up Device data was personally reviewed by me. Device function is nominal. There is adequate remaining battery life. Any programming changes are outlined in the attached note. Device was adjusted to optimize battery length while maintaining adequate safety margins. For additional details regarding device information, data and rhythm strips, please see osmin se/tablet technician entry in the notes section and device download information in scanned document sERNIE Coleman documented in this encounter Plan of Treatment [...] DR | | | | | | [place] [address] | | | | | | [phone] | | | | | | | [...] | + +--------+ + + + | ECHO-EXTERNAL SCAN | | 08/18/2019 | | Results for this | | | | 12:00 AM | | procedure are in the | | | | PST | | results section. | + +--------+ + + + | DEVICE INTERROGATION | Routin | 07/30/2019 | Syncope and | Results for this | | | e | 3:15 PM | collapse Cardiac | procedure are in the | | | | PST | resynchronization | results section. | | | | | therapy | | | | | | defibrillator | | | | | | (RN ER-D) in place | | | | | | Non-sustained | | | | | | ventricular | | | | | | tachycardia (HCC) | | | | | | Non-ischemic | | | | | | cardiomyopathy (HCC) | | + +--------+ + + + documented in this encounter Results ECHO-EXTERNAL SCAN (08/18/2019 12:00 AM PST) + + + | Narrative | Performed At | + + + | Ordered by an | | | unspecified provider. | | + + + Device Interrogation (07/30/2019 3:15 PM PST) + + + | Narrative | Performed At | + + + | Germain Boyle | [facility] | | Navid Technologist 07/30/2019 3:45 PMDevice interrogation | | | done by Mary Tipton Any events or changes listed in office note. See | | | device data attached to scheduled encounter for additional details. | | | insurance loss adjuster: Orin Shoemaker, insurance loss adjuster [facility] | | |See device data attached to scheduled encounter for additional | | |details. | | | | | |insurance loss adjuster: Orin Shoemaker, insurance loss adjuster [facility] | | | | | | | | + + + + +---------+ + + | Performing | Address | City/State/Zipcode | Phone Number | | Organization | | | | + +---------+ + + | [facility] | | | | + +---------+ + + documented in this encounter Visit Diagnoses + + | Diagnosis | + + | Syncope and collapse - Primary | + + | Cardiac resynchronization therapy defibrillator (RN ER-D) in place | + + | Non-sustained ventricular tachycardia (HCC) Paroxysmal ventricular tachycardia | + + | Non-ischemic cardiomyopathy (HCC) Other primary cardiomyopathies | + + documented in this encounter"
--- OUTSIDE RECORDS SUMMARY | ~2020-02-20 | XMS | Encounter Summary ---
Demographics + + + | Address | [address] | | | [place] [address] | + + + | Home Phone | | + + + | Preferred Language | Unknown | + + + | Marital Status | | + + + | Mandaeism Affiliation | Unknown | + + + | Race | Unknown | + + + | Ethnic Group | Unknown | + + + Author + + + | Author | [facility] | | | and [place] | + + + | Organization | [facility] | | | [...] Team Providers + +------+ + | Care Boot Lace Cutter Machine Name | Role | Phone | + +------+ + | Carla Murphy | PCP | | | PA-C | | | + +------+ + Encounter Details +--------+ + + + + | Date | Type | Department | Care Team | Description | +--------+ + + + + | 09/25/ | Orders Only | [facility] | Graceamara, Elihed, | | | 2018 | | CONVERSION 888 | MD [address] | | | | | [address] | [place], [place] | | | | | [place], [place] | [address] | | | | | [address] | | | | | | [phone] | | | +--------+ + + + [...] | | | | | [place] [address] | | | | | | [phone] | | | | | | | [...] + +--------+ + + + | ECHO INTERPRETATION | Routin | 09/25/2017 | | Results for this | | OF OUTSIDE FILMS | e | 5:11 PM | | procedure are in the | | | | PST | | results section. | + +--------+ + + + documented in this encounter Results ECHO Interpretation of Outside Films (09/25/2017 5:11 PM PST) + + | Specimen | + + | | + + + + + | Impressions | Performed At | + + + | 1. This was a technically difficult study with suboptimal views. 2. | | | The left ventricle is mildly dilated with moderately impaired | | | systolic function EF 30-35%. 3. There is paradoxical/dysynergic | | | septal motion consistent with paced rhythm. 4. The right ventricle is | | | normal in size and function. 5. There is no pericardial effusion. | | + + + + + + | Narrative | Performed At | + + + | Patient Name: FRANCI VELÁZQUEZ Date of : 1945 | | | Performing Physician: Gretchen Joy | | | | | | INDICATIONS cardiomyopathy, aicd, beulah CONCLUSIONS | | | 1. This was a technically difficult study with suboptimal | | | views. 2. The left ventricle is mildly dilated with moderately | | | impaired systolic function EF 30-35%. 3. There is | | | paradoxical/dysynergic septal motion consistent with paced rhythm. 4. | | | The right ventricle is normal in size and function. 5. There is no | | | pericardial effusion. FINDINGS -------- Study: A 2-dimensional | | | transthoracic echocardiogram with m-mode, spectral and color flow | | | Doppler was perfomed. Study: This was a technically difficult study | | | with suboptimal views. Left Ventricle: Overall left ventricular | | | systolic function is moderate-severely impaired with, an EF between 30 | | | - 35 %. Left Ventricle: The left ventricle is mildly dilated. Left | | | Ventricle: Mild septal hypertrophy with septal thickness 13 - 15 mm. | | | Left Ventricle: There is paradoxical/dysynergic septal motion | | | consistent with paced rhythm. Right Ventricle: The right ventricle is | | | normal in size and function. Right Ventricle: Pacer/ICD wire seen. | | | Left Atrium: The left atrium is mildly enlarged. Right Atrium: The | | | right atrium is mildly enlarged. Right Atrium: Pacemaker wire seen in | | | the right atrial cavity. Aortic Valve: Aortic valve is trileaflet. | | | Aortic Valve: Trace amount of aortic regurgitation. Aortic Valve: | | | There is no evidence of aortic stenosis. Mitral Valve: Normal | | | appearing mitral valve. Mitral Valve: There is trace mitral | | | regurgitation. Tricuspid Valve: The tricuspid valve appears | | | structurally normal. Tricuspid Valve: Trace tricuspid regurgitation | | | present. Pulmonic Valve: Pulmonic valve appears structurally normal. | | | Pulmonic Valve: Trace pulmonic regurgitation. Pericardium: There | | | is no pericardial effusion. Pericardium: No pleural effusion seen. | | | IVC/Hepatic Veins: The inferior vena cava is normal in size and | | | collapses > 50 % with sniff, indicating normal central venous | | | pressures. Aorta: The aortic root, ascending aorta and aortic arch | | | are normal in size. MEASUREMENTS Ao sinus: 3.89 | | | cm Ao st junct: 3.01 cm LA Major: 4.46 cm EDV(Teich): | | | 202.37 ml IVSd: 1.38 cm LVIDd: 6.31 cm LVPWd: 1.04 cm | | | LVOT Diam: 2.50 cm %FS: 17.95 % EF(Teich): 36.50 % | | | ESV(Teich): 128.49 ml LVIDs: 5.18 cm SV(Teich): 73.88 ml | | | RVIDd: 3.88 cm LVEF MOD A4C: 35.24 % SV MOD A4C: 107.96 ml | | | LVEDV MOD A4C: 306.32 ml LVLd A4C: 9.75 cm LVESV MOD A4C: | | | 198.35 ml LVLs A4C: 8.55 cm LAESV(A-L): 89.01 ml LAESV Index | | | (A-L): 37.87 ml/m2 LAAs A2C: 22.69 cm2 LAESV A-L A2C: 93.63 | | | ml LALs A2C: 4.66 cm LAAs A4C: 19.88 cm2 LAESV A-L A4C: | | | 77.98 ml LALs A4C: 4.30 cm Teresita: 23.19 cm2 RAEDV A-L: | | | 97.65 ml RAEDV MOD: 89.83 ml RALd: 4.67 cm TAPSE: 2.19 cm | | | AV maxP.27 mmHg AV meanP.41 mmHg AV Vmax: 1.03 m/s | | | AV Vmean: 0.73 m/s AV VTI: 19.23 cm GOPAL Vmax: 4.21 cm2 | | | GOPAL (VTI): 4.42 cm2 AVAI Vmax: 0.00 cm2/m2 AVAI (VTI): 0.00 | | | cm2/m2 LVOT maxP.13 mmHg LVOT meanP.63 mmHg LVSI | | | Dopp: 36.18 ml/m2 LVSV Dopp: 85.04 ml LVOT Vmax: 0.88 m/s | | | LVOT Vmean: 0.61 m/s LVOT VTI: 17.26 cm MV E Frank: 0.83 m/s | | | MV DecT: 110.72 ms Septal e': 0.09 m/s Septal E/e': 8.70 | | | Lateral e': 0.08 m/s Lateral E/e': 9.77 RAP: 3 mmHg | | | Email Marketing Manager: NIGEL Authenticated by: Gretchen Joy Report | | | Date/Time: 09-26-2017 7:40:19 | | + + + + ---+ | Procedure Note | + ---+ | David Mckeon Conversion - 04/10/2019 3:23 PM PDT Patient Name: Silvia VELÁZQUEZ | | of : 1945 Performing Physician: Gretchen | | Rufino INDICATIONS------ | | -----cardiomyopathy, aicd, beulah CONCLUSIONS 1. This was a technically difficult | | study with suboptimal views.2. The left ventricle is mildly dilated with moderately | | impaired systolic function EF 30-35%.3. There is paradoxical/dysynergic septal motion | | consistent with paced rhythm.4. The right ventricle is normal in size and function.5. | | There is no pericardial effusion. FINDINGS--------Study: A 2-dimensional transthoracic | | echocardiogram with m-mode, spectral and color flow Doppler was perfomed.Study: This was | | a technically difficult study with suboptimal views.Left Ventricle: Overall left | | ventricular systolic function is moderate-severely impaired with, an EF between 30 - 35 | | %.Left Ventricle: The left ventricle is mildly dilated.Left Ventricle: Mild septal | | hypertrophy with septal thickness 13 - 15 mm.Left Ventricle: There is | | paradoxical/dysynergic septal motion consistent with paced rhythm.Right Ventricle: The | | right ventricle is normal in size and function.Right Ventricle: Pacer/ICD wire seen.Left | | Atrium: The left atrium is mildly enlarged.Right Atrium: The right atrium is mildly | | enlarged.Right Atrium: Pacemaker wire seen in the right atrial cavity.Aortic Valve: | | Aortic valve is trileaflet.Aortic Valve: Trace amount of aortic regurgitation.Aortic | | Valve: There is no evidence of aortic stenosis.Mitral Valve: Normal appearing mitral | | valve.Mitral Valve: There is trace mitral regurgitation.Tricuspid Valve: The tricuspid | | valve appears structurally normal.Tricuspid Valve: Trace tricuspid regurgitation | | present.Pulmonic Valve: Pulmonic valve appears structurally normal.Pulmonic Valve: Trace | | pulmonic regurgitation.Pericardium: There is no pericardial effusion.Pericardium: No | | pleural effusion seen.IVC/Hepatic Veins: The inferior vena cava is normal in size and | | collapses > 50 % with sniff, indicating normal central venous pressures.Aorta: The | | aortic root, ascending aorta and aortic arch are normal in size. | | MEASUREMENTS Ao sinus: 3.[address] junct: 3.01 cmLA Major: 4.46 | | cmEDV(Teich): 202.37 mlIVSd: 1.38 cmLVIDd: 6.31 cmLVPWd: 1.04 cmLVOT Diam: | | 2.50 cm%FS: 17.95 %EF(Teich): 36.50 %ESV(Teich): 128.49 mlLVIDs: 5.18 | | cmSV(Teich): 73.88 mlRVIDd: 3.88 cmLVEF MOD A4C: 35.24 %SV MOD A4C: 107.96 | | mlLVEDV MOD A4C: 306.32 mlLVLd A4C: 9.75 cmLVESV MOD A4C: 198.35 mlLVLs A4C: | | 8.55 cmLAESV(A-L): 89.01 mlLAESV Index (A-L): 37.87 ml/m2LAAs A2C: 22.69 [id number] | | A-L A2C: 93.63 mlLALs A2C: 4.66 cmLAAs A4C: 19.88 [id number] A-L A4C: 77.98 mlLALs | | A4C: 4.30 cmRAAd: 23.19 [id number] A-L: 97.65 mlRAEDV MOD: 89.83 mlRALd: 4.67 | | cmTAPSE: 2.19 cmAV maxP.27 mmHgAV meanP.41 mmHgAV Vmax: 1.03 m/Fabricio | | Vmean: 0.73 m/Fabricio VTI: 19.23 cmAVA Vmax: 4.21 cm2AVA (VTI): 4.42 [id number] Vmax: | | 0.00 cm2/m2AVAI (VTI): 0.00 cm2/m2LVOT maxP.13 mmHgLVOT meanP.63 mmHgLVSI | | Dopp: 36.18 ml/m2LVSV Dopp: 85.04 mlLVOT Vmax: 0.88 m/sLVOT Vmean: 0.61 m/sLVOT | | VTI: 17.26 cmMV E Frank: 0.83 m/sMV DecT: 110.72 msSeptal e': 0.09 m/sSeptal | | E/e': 8.70Lateral e': 0.08 m/sLateral E/e': 9.77RAP: 3 mmHg Email Marketing Manager: | | DBSAuthenticated by: Gretchen [facility] Date/Time: 09-26-2017 7:40:19 IMPRESSION: 1. | | This was a technically difficult study with suboptimal views.2. The left ventricle is | | mildly dilated with moderately impaired systolic function EF 30-35%.3. There is | | paradoxical/dysynergic septal motion consistent with paced rhythm.4. The right ventricle | | is normal in size and function.5. There is no pericardial effusion. | |Aorta: The aortic root, ascending aorta and aortic arch are normal in size. | | | |MEASUREMENTS | | | |Ao sinus: 3.89 cm | |Ao st junct: 3.01 cm | |LA Major: 4.46 cm | |EDV(Teich): 202.37 ml | |IVSd: 1.38 cm | |LVIDd: 6.31 cm | |LVPWd: 1.04 cm | |LVOT Diam: 2.50 cm | |%FS: 17.95 % | |EF(Teich): 36.50 % | |ESV(Teich): 128.49 ml | |LVIDs: 5.18 cm | |SV(Teich): 73.88 ml | |RVIDd: 3.88 cm | |LVEF MOD A4C: 35.24 % | |SV MOD A4C: 107.96 ml | |LVEDV MOD A4C: 306.32 ml | |LVLd A4C: 9.75 cm | |LVESV MOD A4C: 198.35 ml | |LVLs A4C: 8.55 cm | |LAESV(A-L): 89.01 ml | |LAESV Index (A-L): 37.87 ml/m2 | |LAAs A2C: 22.69 cm2 | |LAESV A-L A2C: 93.63 ml | |LALs A2C: 4.66 cm | |LAAs A4C: 19.88 cm2 | |LAESV A-L A4C: 77.98 ml | |LALs A4C: 4.30 cm | |Teresita: 23.19 cm2 | |RAEDV A-L: 97.65 ml | |RAEDV MOD: 89.83 ml | |RALd: 4.67 cm | |TAPSE: 2.19 cm | |AV maxP.27 mmHg | |AV meanP.41 mmHg | |AV Vmax: 1.03 m/s | |AV Vmean: 0.73 m/s | |AV VTI: 19.23 cm | |GOPAL Vmax: 4.21 cm2 | |GOPAL (VTI): 4.42 cm2 | |AVAI Vmax: 0.00 cm2/m2 | |AVAI (VTI): 0.00 cm2/m2 | |LVOT maxP.13 mmHg | |LVOT meanP.63 mmHg | |LVSI Dopp: 36.18 ml/m2 | |LVSV Dopp: 85.04 ml | |LVOT Vmax: 0.88 m/s | |LVOT Vmean: 0.61 m/s | |LVOT VTI: 17.26 cm | |MV E Frank: 0.83 m/s | |MV DecT: 110.72 ms | |Septal e': 0.09 m/s | |Septal E/e': 8.70 | |Lateral e': 0.08 m/s | |Lateral E/e': 9.77 | |RAP: 3 mmHg | | | |Email Marketing Manager: DBS | |Authenticated by: Gretchen Joy | |Report Date/Time: 09-26-2017 7:40:19 | | | |IMPRESSION: | |1. This was a technically difficult study with suboptimal views. | |2. The left ventricle is mildly dilated with moderately impaired systolic function EF 30-35 %. | |3. There is paradoxical/dysynergic septal motion consistent with paced rhythm. | |4. The right ventricle is normal in size and function. | |5. There is no pericardial effusion. | + ---+ documented in this encounter Visit Diagnoses Not on filedocumented in this encounter"
--- OUTSIDE RECORDS SUMMARY | ~2020-02-20 | XMS | Encounter Summary ---
Demographics + + + | Address | [address] | | | [place] [address] | + + + | Home Phone | | + + + | Preferred Language | Unknown | + + + | Marital Status | | + + + | Sikhism Affiliation | Unknown | + + + | Race | Unknown | + + + | Ethnic Group | Unknown | + + + Author + + + | Author | [facility] | | | and [place] | + + + | Organization | [facility] | | | [...] Team Providers + +------+ + | Care Safety Attendant Name | Role | Phone | + +------+ + | Carla Murphy | PCP | | | PA-C | | | + +------+ + Reason for Visit + +--------+ + | Reason | Onset | Comments | | | Date | | + +--------+ + | Patient Concerns | 08/07/ | | | | 2018 | | + +--------+ + Encounter Details +--------+ + + + + | Date | Type | Department | Care Team | Description | +--------+ + + + + | 08/07/ | Telephone | [facility] | Mary Tipton ANP | Patient Concerns | | 2018 | | CARDIOLOGY [place] | [address] | | | | | [address] | [place], [place] | | | | | [place], [place] | [address] | | | | | [address] | | | | | | [phone] | | | +--------+ + + + [...] this encounter Miscellaneous Notes Telephone Encounter - Mary Tipton ANP - 08/07/2019 4:05 PM PSTPt wants to stop amiodaron e due to severe side effects of "fatigue, sleeping all the time, 16-18 hours per day, no oneal rgy, diaphoresis and sweating", decreased activity tolerance. SBP 100s-110s, HR 75-95 daily Advised increase Metoprolol tartrate to 12.5mg every morning and 6.25mg every evening. Arrange stress test We discussed risk of ICD shock and recurrent VT off amiodarone, and he verbalized kranthi gaines. ERNIE Deal documented in this enco unter Plan of Treatment +--------+ + + + [...] | | | | | [place] [address] | | | | | | [phone] | | | | | | | | +--------+ + + + + | 04/28/ | Procedure | Cardiology | | | | 2019 | visit | | | | +--------+ + + + + documented as of this encounter Visit Diagnoses Not on filedocumented in this encounter
--- OUTSIDE RECORDS SUMMARY | ~2020-02-20 | XMS | Encounter Summary ---
Demographics + + + | Address | [address] | | | [place] [address] | + + + | Home Phone [...] Team Providers + +------+ + | Care Curriculum Developer Name | Role | Phone | + +------+ + | Carla Muprhy | PCP | | | PA-C | | | + +------+ + Reason for Visit +--------+--------+ + | Reason | Onset | Comments | | | Date | | +--------+--------+ + | Other | 10/21/ | Incruse | | | 2016 | | +--------+--------+ + Encounter Details +--------+ + + + + | Date | Type | Department | Care Team | Description | +--------+ + + + + | 10/21/ | Telephone | [facility] [place] | Lyn, | Other (Incruse) | | 2015 | | PULMONARY [address] | Sailaja Chiang MD | | | | | [place], | | | | | | [place] [address] | | | | | | [phone] | | | +--------+ + + + [...] this encounter Miscellaneous Notes Telephone Encounter - Soila Rudd, RN - 10/22/2015 11:48 AM PSTCalled Jared and kyaw sed that his insurance will not cover the Incruse and has recommended that he try either Spi jyoti, Combivent or Symbicort. Advised that Dr Kellogg is recommending that he try Spiriva 18 mcg once daily. Okay per patient. Prescription sent to [facility] documented in this encounter Plan of Treatment [...] | | | | | [place] [address] | | | | | | [phone] | | | | | | | | +--------+ + + + + | 04/28/ | Procedure | Cardiology | | | | 2020 | visit | | | | +--------+ + + + + documented as of this encounter Visit Diagnoses Not on filedocumented in this encounter"
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
--- OUTSIDE RECORDS SUMMARY | ~2020-02-20 | XMS | Encounter Summary ---
Demographics + + + | Address | [address] | | | [place] [address] | + + + | Home Phone | | + + + | Preferred Language | Unknown | + + + | Marital Status | | + + + | Yarsani Affiliation | Unknown | + + + | Race | Unknown | + + + | Ethnic Group | Unknown | + + + Author + + + | Author | [facility] | | | and [place] | + + + | Organization | [facility] | | [...] Team Providers + +------+ + | Care Solar Systems Designer Name | Role | Phone | [...] MD | diaphragm | | | | [place], | | | | | | [place] [address] | | | | | | [phone] | | | +--------+ + + + [...] DR | | | | | | [place] [address] | | | | | | [phone] | | | | | | | [...]
--- OUTSIDE RECORDS SUMMARY | ~2020-02-20 | XMS | Encounter Summary ---
Demographics + + + | Address | [address] | | | [place] [address] | + + + | Home Phone [...] Team Providers + +------+ + | Care Electro Mechanical Solar Technician Name | Role | Phone | + +------+ + | Carla Murphy | PCP | | | PA-C | | | + +------+ + Reason for Visit + +--------+ + | Reason | Onset | Comments | | | Date | | + +--------+ + | Appointment | 08/25/ | | | | 2020 | | + +--------+ + Encounter Details +--------+ + + + + | Date | Type | Department | Care Team | Description | +--------+ + + + + | 08/25/ | Telephone | [facility] | Mary Tipton ANP | Appointment | | 2019 | | CARDIOLOGY [place] | [address] | | | | | [address] | [place], [place] | | | | | [place], [place] | [address] | | | | | [address] | | | | | | [phone] | | | +--------+ + + + [...] this encounter Miscellaneous Notes Telephone Encounter - Ebony Stein, Oracle Adf Consultant - 08/25/2019 2:53 PM PSTPatient called in to cancel his stress test tomorrow as he is worried about having his heart stop wh y doing the test. He is also concern over not being able to eat as he is a pre diabetic I ca lled and talked to Enedina in the nuclear department regarding patient and let her know ney ents concern and why he wanted to cancel his appointment. Enedina asked me to transfer patie nt to her to discuss his concerns again . Patient transferred. documented in this encounter Plan of Treatment +--------+ + + + + | Date | Type | Specialty | Care Team | Description | +--------+ + + + + | 02/24/ | Procedure | Cardiology | | | 2019 | visit | | | | +--------+ + + + + | 04/28/ | Office | Cardiology | Nav Foley, | | | 2019 | Visit | | MD [address] | | | | | | [place] [address] | | | | | | [phone] | | | | | | | | +--------+ + + + + | 04/28/ | Procedure | Cardiology | | | | 2019 | visit | | | | +--------+ + + + + documented as of this encounter Visit Diagnoses Not on filedocumented in this encounter"
--- OUTSIDE RECORDS SUMMARY | ~2020-02-20 | XMS | Encounter Summary ---
Demographics + + + | Address | [address] | | | [place] [address] | + + + | Home Phone | | + + + | Preferred Language | Unknown | + + + | Marital Status | | + + + | Scientology Affiliation | Unknown | + + + | Race | Unknown | + + + | Ethnic Group | Unknown | + + + Author + + + | Author | [facility] | | | and [place] | + + + | Organization | [facility] | | | [...] Team Providers + +------+ + | Care Sale Professional Digital Marketing Name | Role | Phone | + [...] + + + | Closed | | Radiology | Diagnoses | Mary Tipton | Rufus | | | | | Abnormal | C, ANP | Cardiology | | | | | stress test | [address] | [place] [facility] | | | | | Procedures | [address] | [address] | | | | | [place] Nuclear | [place] | [address] | | | | | Stress Test | [place], [place] | [place] | | | | | (Vasodilator | [address] | [address] | | | | | ) | Phone: | Phone: | | | | | | [phone] | [phone] | | | | | | Fax: | Fax: | | | | | | [phone] | [phone] | +--------+--------+ + + + + Encounter Details +--------+ + + + + | Date | Type | Department | Care Team | Description | +--------+ + + + + | 08/05/ | Orders Only | [facility] | Mary Tipton ANP | Abnormal stress test | | 2019 | | CARDIOLOGY [place] | [address] | (Primary Dx) | | | | [address] | [place], [place] | | | | | [place], [place] | [address] | | | | | [address] | | | | | | [phone] | | | +--------+ + + + [...] DR | | | | | | [place] [address] | | | | | | [phone] | | | | | | | [...]
--- OUTSIDE RECORDS SUMMARY | ~2020-02-20 | XMS | Encounter Summary ---
Demographics + + + | Address | [address] | | | [place] [address] | + + + | Home Phone | | + + + | Preferred Language | Unknown | + + + | Marital Status | | + + + | Mosque Affiliation | Unknown | + + + | Race | Unknown | + + + | Ethnic Group | Unknown | + + + Author + + + | Author | [facility] | | | and [place] | + + + | Organization | [facility] | | [...] Team Providers + +------+ + | Care Watch And Clock Repairer Name | Role | Phone | + [...] Provider Unknown | | | | | [place], [place] | | | | | | [address] | (Fax) | | | | | [...] DR | | | | | | [facility] [address] | | | | | | [phone] | | | | | | | [...] +--------+ + + + | CT ANGIOGRAM | Routin | 08/13/2015 | | Results for this | | PULMONARY | e | 1:56 PM | | procedure are in the | | | | PST | | results section. | + +--------+ + + + documented in this encounter Results CT Angiogram Pulmonary w Contrast (08/13/2015 1:56 PM PST) + + | Specimen | + + | | + + + + + | Narrative | Performed At | + + + | This is a non-reportable procedure without a radiologist report and | | | is used for image storage only | | + + + + + | Procedure Note | + + | David Mckeon - 04/03/2019 1:22 PM PDT This is a non-reportable procedure | | without a radiologist report and isused for image storage only | + + documented in this encounter Visit Diagnoses + + | Diagnosis | + + | Unknown cause of injury Unspecified accident | + + documented in this encounter"
--- OUTSIDE RECORDS SUMMARY | ~2020-02-20 | XMS | Encounter Summary ---
Demographics + + + | Address | [address] | | | [place] [address] | + + + | Home Phone | | + + + | Preferred Language | Unknown | + + + | Marital Status | | + + + | Protestant Affiliation | Unknown | + + + | Race | Unknown | + + + | Ethnic Group | Unknown | + + + Author + + + | Author | [facility] | | | and [place] | + + + | Organization | [facility] | | | and [place] | + + + | Address | Unknown | + + + | Phone | Unavailable | + + + Support + + +---------+ + | Name | Relationship | Address | Phone | + + +---------+ + | Champ Abraham | ECON | Unknown | | + + +---------+ + | Milichiqui Ouqendow | ECON | Unknown | | + + +---------+ + Care Team Providers + +------+ + | Care Division Road Supervisor Name | Role | Phone | [...] | | stress test | [address] | [place] [facility] | | | | | Procedures | [address] | [address] | | | | | [place] Nuclear | [place] | [address] | | | | | Stress Test | [place], [place] | [place] | | | | | (Vasodilator | [address] | [address] | | | | | ) | Phone: | Phone: | | | | | | [phone] | [phone] | | | | | | Fax: | Fax: | | | | | | [phone] | [phone] | +--------+--------+ + + + + Reason for Visit Diagnostic/Screening (Routine) +--------+--------+ + + + + [...] | | stress test | [address] | [place] [facility] | | | | | Procedures | [address] | [address] | | | | | [place] Nuclear | [place] | [address] | | | | | Stress Test | [place], [place] | [place] | | | | | (Vasodilator | [address] | [address] | | | | | ) | Phone: | Phone: | | | | | | [phone] | [phone] | | | | | | Fax: | Fax: | | | | | | [phone] | [phone] | +--------+--------+ + + + + Encounter Details +--------+ + + + + | Date | Type | Department | Care Team | Description | +--------+ + + + + | 08/26/ | Hospital | [facility] | Bird, Mary C, ANP | Abnormal stress test | | 2020 | Encounter | CARDIOLOGY [place] | [address] | | | | | NUC MED [address] | [place], [place] | | | | | [address] | [address] | | | | | [place], [place] | | | | | | [address] | | | | | | [phone] | | | +--------+ + + + [...] + + + +---------+ + + | atorvaSTATin | Take 20 mg by mouth | | 0 | | | | (LIPITOR) 20 mg | nightly. | | | | | | tablet | | | | | | + + + +---------+ + + | cholecalciferol | Take 5,000 Int'l | | 0 | | | | (CHOLECALCIFEROL) | Units by mouth | | | | | | 5000 units TABS | daily. | | | | | + + + +---------+ + + | clopidogrel | Take 75 mg by mouth | | 0 | | | | (PLAVIX) 75 mg | daily. | | | | | | tablet | | | | | | + + + +---------+ + + | levothyroxine | Take one tablet | | 0 | 10/04/19 | | | (SYNTHROID) 88 mcg | daily | | | 16 | | | tablet | | | | | | + + + +---------+ + + | loratadine | Take 10 mg by mouth | | 0 | | | | (CLARITIN) 10 mg | daily. | | | | | | tablet | | | | | | + + + +---------+ + + | MAGNESIUM PO | 500 mg every 48 | | 0 | | | | | hours. | | | | | + + + +---------+ + + | metFORMIN | Take 1 tablet by | | 0 | 10/25/19 | | | (GLUCOPHAGE-XR) 500 | mouth daily. | | | 19 | | | mg 24 hr tablet | | | | | | + + + +---------+ + + | amiodarone | Take 200 mg by mouth | | 0 | | | | (PACERONE) 200 mg | Daily. | | | | 0 | | tablet | | | | | | + + + +---------+ + + | metoprolol | Take 25 mg by mouth | | 0 | | | | tartrate (LOPRESSOR) | 2 times daily. Take | | | | 0 | | 25 mg tablet | one half tablet 12.5 | | | | | | | mg and take one | | | | | | | quarter 6.25 mg at | | | | | | | night | | | | | + + [...] DR | | | | | | [place] [address] | | | | | | [phone] | | | | | | | [...] + +--------+ + + + | NM NUCLEAR STRESS | Routin | 08/29/2019 | Abnormal stress | Results for this | | TEST (PHARMACOLOGIC | e | 11:19 AM | test | procedure are in the | | - VASODILATOR) | | PST | | results section. | + +--------+ + + + documented in this encounter Results NM Nuclear Stress Test [...] | + + | Abnormal stress test Other nonspecific abnormal cardiovascular system function study | + + documented in this encounter Administered Medications + +--------+ +-------+------+------+ | Medication Order | MAR | Action | Dose | Rate | Site | | | Action | Date | | | | + +--------+ +-------+------+------+ | aminophylline injection 25 mg | Given | 08/26/19 | 50 mg | | | | 25 mg, Intravenous, ONCE, Tue | | 20 4:05 | | | | | 08/26/19 at 1530, For 1 dose, | | PM PST | | | | | Nuclear Medicine | | | | | | + +--------+ +-------+------+------+ +---+---+ | | | +---+---+ + +-------+ +--------+---+---+ | regadenoson (LEXISCAN) | Given | 08/26/19 | 0.4 mg | | | | injection 0.4 mg 0.4 mg, | | 20 3:50 | | | | | Intravenous, ONCE, 08/26/19 at | | PM PST | | | | | 1530, For 1 dose, Give IV push | | | | | | | over 10 seconds, then follow | | | | | | | immediately with 5 mL saline | | | | | | | flush., Nuclear Medicine | | | | | | + +-------+ +--------+---+---+ +---+---+ | | | +---+---+ + +-------+ + +---+---+ | technetium TC-99M sestamibi | Given | 08/26/19 | 12 | | | | (CARDIOLITE) injection 12 | | 20 3:05 | millicur | | | | millicurie 12 millicurie, | | PM PST | ies | | | | Intravenous, ONCE, 08/26/19 at | | | | | | | 1530, For 1 dose, Nuclear | | | | | | | Medicine | | | | | | + +-------+ + +---+---+ +---+---+ | | | +---+---+ + +-------+ + +---+---+ | technetium TC-99M sestamibi | Given | 08/26/19 | 33.7 | | | | (CARDIOLITE) injection 33.7 | | 20 3:50 | millicur | | | | millicurie 33.7 millicurie, | | PM PST | ies | | | | Intravenous, ONCE, 08/26/19 at | | | | | | | 1530, For 1 dose, Nuclear | | | | | | | Medicine | | | | | | + +-------+ + +---+---+ +---+---+ | | | +---+---+ documented in this encounter"
--- OUTSIDE RECORDS SUMMARY | ~2020-02-20 | XMS | Encounter Summary ---
Demographics + + + | Address | [address] | | | [place] [address] | + + + | Home Phone | | + + + | Preferred Language | Unknown | + + + | Marital Status | | + + + | Mormonism Affiliation | Unknown | + + + | Race | Unknown | + + + | Ethnic Group | Unknown | + + + Author + + + | Author | [facility] | | | and [place] | + + + | Organization | [facility] | | | [...] Providers + +------+ + | Care Service Desk Specialist Name | Role | Phone | + +------+ + | Carla Murphy | PCP | | | PA-C | | | + +------+ + Encounter Details +--------+ + + + + | Date | Type | Department | Care Team | Description | +--------+ + + + + | 10/24/ | Orders Only | [facility] | Soila Rudd, | Panlobular emphysema | | 2015 | | PULMONARY [address] | ([facility]) | | | | [place], | | | | | | [place] [address] | | | | | | [phone] | | | +--------+ + + + [...] DR | | | | | | [place] [address] | | | | | | [phone] | | | | | | | [...]
--- OUTSIDE RECORDS SUMMARY | ~2020-02-20 | XMS | Encounter Summary ---
Demographics + + + | Address | [address] | | | [place] [address] | + + + | Home Phone | | + + + | Preferred Language | Unknown | + + + | Marital Status | | + + + | Gnosticist Affiliation | Unknown | + + + [...] Providers + +------+ + | Care Digital Media Designer Name | Role | Phone | [...] + + | 09/30/ | Telephone | [facility] | Mary Tipton ANP | Appointment | | 2020 | | CARDIOLOGY [place] | [address] | | | | | [address] | [place], [place] | | | | | [place], [place] | [address] | | | | | [address] | | | | | | [phone] | | | +--------+ + + + [...] this encounter Miscellaneous Notes Telephone Encounter - Eilf Aj - 09/30/2019 1:51 PM PSTReturning patients [...] | | | | | [place] [address] | | | | | | [phone] | | | | | | | | +--------+ + + + + | 04/28/ | Procedure | Cardiology | | | | 2019 | visit | | | | +--------+ + + + + documented as of this encounter Visit Diagnoses Not on filedocumented in this encounter"
--- OUTSIDE RECORDS SUMMARY | ~2020-02-20 | XMS | Encounter Summary ---
Demographics + + + | Address | [address] | | | [place] [address] | + + + | Home Phone | | + + + | Preferred Language | Unknown | + + + | Marital Status | | + + + | Lutheran Affiliation | Unknown | + + + | Race | Unknown | + + + | Ethnic Group | Unknown | + + + Author + + + | Author | [facility] | | | and [place] | + + + | Organization | [facility] | | | [...] Team Providers + +------+ + | Care Tank Car Reconditioner Name | Role | Phone | + +------+ + PCP | Unavailable | + +------+ + Encounter Details +--------+ + + + + | Date | Type | Department | Care Team | Description | +--------+ + + + + | 11/05/ | Hospital | [facility] | Elder Suresh MD | Unspecified Chest | | 2008 | Encounter | [facility] | [address] | Pain | | | | CLINICAL DECISION | [place] | | | | | [address] | [place], [place] | | | | | [place], [place] | [address] | | | | | [address] | [phone] | | | | | [phone] | | | +--------+ + + + [...] | | | | | [place] [address] | | | | | | [phone] | | | | | | | [...] Performed At | + + + | [id number] | | | Page 1 CARDIOLOGY | | | [facility] [address]/ | | | [facility] | | | CENTER NAME: [place] | | | [address] | | | | | | DATE OF : 1945 | | | ORDER NUMBER: [id number] EXAM DATE/TIME: 11/05/2008 08:22 A | | | ORDERING PHYSICIAN: ELDER SURESH ORDER DETAIL: 5410 / / HCL | [...] | | | 1% lidocaine solution. A 6-St Helenian arterial sheath was inserted into | | | the right common femoral artery using a modified Seldinger technique. | | | A 6-St Helenian pigtail catheter was advanced over the guidewire [...] was exchanged over the guidewire by a 6-St Helenian JL4 catheter that was | | | [...] a | | | guidewire by a 6-St Helenian right coronary artery (RCA) Waqar catheter | [...] weeks. | | | Read by ELDER SURESH MD 11/05/2008 10:40 A Electronically Signed | | | by ELDER SURESH MD 11/06/2008 01:39 P A | | | P ONI/dolly/[id number]/ cc: ELDER SURESH MD | | | RYAN FREY MD | | + + + + + | Procedure Note | + + | David Mckeon Conversion - 04/14/2019 4:31 AM PDT | | [id number] Page 1 | | CARDIOLOGY [facility] [address]/ | | OPS | | [facility] NAME: [address] [address] | | [place] [address] | | | | DATE OF : 1945 | | | | ORDER NUMBER: [id number] | | EXAM DATE/TIME: 11/05/2008 08:22 A | | ORDERING PHYSICIAN: ELDER SURESH | | ORDER DETAIL: [id number] / / [...] 10 mL of 1% lidocaine solution. A 6-St Helenian arterial | | sheath was inserted into the right common femoral artery using a | | modified Seldinger technique. A 6-St Helenian pigtail catheter was advanced | | over [...] was exchanged over the guidewire by a 6-St Helenian JL4 | | catheter that was advanced over the guidewire under fluoroscopy and | | engaged to the left main artery. Dye was injected into the left coronary | | system, and multiple angiographic pictures of the left coronary system | | were taken in multiple projections. The JL4 catheter was exchanged over | | a guidewire by a 6-St Helenian right coronary artery (RCA) Waqar catheter | [...] | | Read by | | ELDER SURESH MD 11/05/2008 10:40 A | | Electronically Signed by | | ELDER SURESH MD 11/06/2008 01:39 P | | | | A | | P | | ONI/dolly/[id number]/ | | cc: ELDER SURESH MD | | RYAN FREY MD | + + documented in this encounter Visit Diagnoses + + | Diagnosis | + + | Chest pain, unspecified | + + documented in this encounter"
--- OUTSIDE RECORDS SUMMARY | ~2020-02-20 | XMS | Encounter Summary ---
Demographics + + + | Address | [address] | | | [place] [address] | + + + | Home Phone | | + + + | Preferred Language | Unknown | + + + | Marital Status | | + + + | Faith Affiliation | Unknown | + + + | Race | Unknown | + + + | Ethnic Group | Unknown | + + + Author + + + | Author | [facility] | | | and [place] | + + + | Organization | [facility] | | | [...] Team Providers + +------+ + | Care Retail Marketing Specialist Name | Role | Phone | [...] | PULMONARY [address] | ([facility]) | | | | [place], | | | | | | [place] [address] | | | | | | [phone] | | | +--------+ + + + [...] DR | | | | | | [place] [address] | | | | | | [phone] | | | | | | | [...]
--- OUTSIDE RECORDS SUMMARY | ~2020-02-20 | XMS | Clinical Summary ---
Demographics + + + | Address | [address] | | | [place] [address] | + + + | Home Phone | | + + + | Preferred Language | Unknown | + + + | Marital Status | | + + + | Yarsanism Affiliation | Unknown | + + + | Race | Unknown | + + + | Ethnic Group | Unknown | + + + Author + + + | Author | [facility] | | | and [place] | + + + | Organization | [facility] | | | [...] Team Providers + +------+ + | Care Fuel Cell Technician Name | Role | Phone | [...] | 02/1 | | Activ | | (SYNTHROID) 88 mcg | daily | | | 5/20 | | e | | tablet | | | | 16 | | | + + + +---------+------+------+-------+ [...] + + +---------+------+------+-------+ | MAGNESIUM PO | 500 mg every 48 | | 0 | | | Activ | | | hours. | | | | | e | + + + +---------+------+------+-------+ | metFORMIN | Take 1 tablet by | | 0 | 03/0 | | Activ | | (GLUCOPHAGE-XR) 500 | mouth daily. | | | 7/20 | | e | | mg 24 hr tablet | | | | 19 | | | + + + +---------+------+------+-------+ | amiodarone | Take 1 tablet by | 60 | 11 | 02/2 | | Activ | | (PACERONE) 100 MG | mouth 2 times daily. | tablet | | 0/20 | | e | | tablet | | | | 20 | | | + + + +---------+------+------+-------+ | metoprolol | Take 1 tablet by | 90 | 2 | 03/0 | | Activ | | succinate | mouth Daily. | tablet | | 12/07 | | e | | (TOPROL-XL) 25 mg 24 | | | | 20 | | | | hr tablet | | | | | | | + + + +---------+------+------+-------+ Active Problems + + + | Problem | Noted Date | + + + | False positive cardiac stress test | 10/09/2019 | + + + | Abnormal nuclear stress test | 09/01/2019 | + + + | Essential hypertension | 09/01/2019 | + + + + + | Overview: Added automatically from request for surgery | | [id number] | + + + + + | Orthostatic hypotension | 07/30/2019 | + + + + + | Overview: 07/30/2019Increase hydration to at least 80 ounces | | of non-caffeinated fluids per day. Total caffeine and ETOH | | abstinence recommended. Compression stockings recommended. | + + + + + | Encounter for monitoring diuretic therapy | 07/21/2019 | + + + | History of TIA (transient ischemic attack) | 07/21/2019 | + + + + + | Overview: 04/15/2018: Admitted and [facility] with consult form stroke team at [facility]. noted moderate | | stenosis of left vertebral artery at V1 and V2 segments, | | dysarthria, | + + + + + | Exposure to secondhand smoke | 07/21/2019 | + + + + + | Overview: Goes to [facility] almost nightly. 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 Chiang in January | | 2009.Generator change by Dr. Delarosa in 2014 viva xt BRAIDED RUG MAKER D MDT | | number [id number].Patient has a 5076 atrial lead Medtronic. 6947 | | Sprint Quattro Medtronic RV lead and 4195 Starfix Medtronic LV | | lead. All leads were implanted in January 2010.01/28/2019Appropriate | | device function seen. Normal lead thresholds and battery status. | | Device was adjusted to optimize battery length while maintaining | | adequate safety margins. Atrial threshold 1 V at 0.4 ms, P waves | | 2.3 mV impedance of 399 ohms. Right ventricular threshold 0.5 V | | at 0.4 ms with R waves of 4.6 mV impedance of 760 ohms shock | | impedance is 55 ohms. Left ventricular threshold 0.75 V at 0.4 | | ms with impedance of 456 ohms. Julien pacing 32.9%, RV pacing | | 91.2%, LV pacing 92.4%, BSR 1.2%, by V pacing 99.6%. DDDR 60-140 | | bpm with a paced AV delay 150 ms and a sensed AV delay 120 ms | | with LV offset of -30. There were no events however the device | | was cleared on July 23, 2019 at the time of his | | hospitalization at [facility]. | + + + + + | Non-sustained ventricular tachycardia | 01/21/2017 | + + + + + | Overview: 07/30/2019Continue beta magda therapy. He is | | only able to tolerate metoprolol tartrate 6.25 mg twice daily and | | is still having symptomatic blood pressures in the 80s systolic | | at times. We cannot advance this further or change to metoprolol | | succinate given his hypotension with multiple syncopal and near | | syncopal events over the last year necessitating ER presentation. | | Amiodarone taper was recommended by Dr. Chavez 400mg BID x 1 | | week, 400mg daily x 1 week, then 200mg daily for suppression of | | NSVT. Consideration for Stress MPI. He denies any recent stress | | testing. Request echo results from [facility]. Will discuss | | next steps with Dr. Chavez and call the patient back with | | instructions. He is not to change any medications until he hears | | back from me. He verbalized understanding. | + + + + + | [...] Overview: EF 35-40%, class 2-3 symptoms, s/p AICD109/30/2018He | | did not tolerate PATTY or ARB or Entresto secondary to | | hypotension. He cannot tolerate Toprol XL, Bisoprolol or Coreg | | due to hypotension. Off furosemide given hypotension since | | 07/23/2019. No edema or orthopnea. | + + + +---+ | Hypothyroidism | | + +---+ | Inguinal hernia | | + +---+ + + | Overview: now recurrent | + + Immunizations + + + + | Name | Administration Dates | Next Due | + + + [...] | Heart disease | Mother | | valvular | + + +------+ + | Ulcer disease | Mother | | | + + +------+ + | Colon cancer | Sister | | | + + +------+ + | Stroke | Sister | | | + + +------+ + | Other (see comment) | Sister | | CVA | + + +------+ + | Other (see comment) | Sister | | Bowel Disease | + + +------+ + + +------+ [...] | stroke | + +------+ + + | Sister [...] + + + | Blood Pressure | 110/58 | 10/22/2019 3:38 PM | | | | | PST | | + + + + + | Pulse | 75 | 10/22/2019 3:38 PM | | | | | PST | | + + + + + | Temperature | 36.8 C (98.2 F) | 09/17/2019 5:00 PM | | | | | PST | | + + + + + | Respiratory Rate | 16 | 09/17/2019 5:00 PM | | | | | PST | | + + + + + | Oxygen Saturation | 95% | 10/22/2019 3:38 PM | | | | | PST | | + + + + + | Inhaled Oxygen | - | - | | | Concentration | | | | + + + + + | Weight | 108 kg (238 lb) | 10/22/2019 3:38 PM | | | | | PST | | + + + + + | Height | 177.8 cm (5' 10") | 10/22/2019 3:38 PM | | | | | PST | | + + + + + | Body Mass Index | 34.15 | 10/22/2019 3:38 PM | | | | | PST | | + + + + + Plan of Treatment [...] [address] | | | | | | [place] [address] | | | | | | [phone] | | | | | | | | +--------+ + + + + | 04/28/ | Procedure | Cardiology | | | | 2019 | visit | | | | +--------+ + + + + + + + + + | Health Maintenance | Due Date | Last | Comments | | | | Done | | + + + + + [...] + + + | Vaccine: | | 06/13/20 | | | Pneumococcal 65+ (1 | 2 | 06 | | | of 1 - PPSV23) | | | | + + + + + | Hemoglobin A1c | | 08/18/20 | | | Screening | 9 | 18 | | + + + + + | Adult Annual | | | | | Wellness Visit | 9 | | | + + + + + | Microalbumin | | | | | Screening | 9 | | | + + + + + | Vaccine: Influenza | | | | | (#1) | 0 | | | + + + + + Implants + +--------+------+ +--------+--------+--------+ | Implanted | Type | Area | Manufacture | Device | Shelf | Model | | | | | r | | Expira | / | | | | | | Identi | tion | Serial | | | | | | fier | Date | / Lot | + +--------+------+ +--------+--------+--------+ | Implant Id: [id number] - | Cardia | | MEDTRONIC - | | | | | Supervisor Mixing-D-05/17/2015Implanted: | c | | MEDT | | | /[id number] | | 05/17/2015 by Uvaldo Delarosa | Angela | | | | | [id number] | | PhD (Quantity not on | | | | | | / | | file) | Manage | | | | | | | | ment | | | | | | + +--------+------+ +--------+--------+--------+ | Implant Id: [id number] - Endurant | Endogr | | MEDTRONIC - | | | | | EndograftImplanted: | aft | | MEDT | | | /[id number] | | 09/23/2014 by Vincent Fields, | | | | | | [id number] / | | MD (Quantity not on file) | | | | | | | + +--------+------+ +--------+--------+--------+ | Implant Id: [id number] - Endurant | Endogr | | MEDTRONIC - | | | | | EndograftImplanted: | aft | | MEDT | | | /[id number] | | 09/23/2014 by Vincent Fields, | | | | | | [id number] / | | MD (Quantity not on file) | | | | | | | + +--------+------+ +--------+--------+--------+ | Implant Id: [id number] - Endurant | Endogr | | | | | | | EndograftImplanted: | aft | | | | | /[id number] | | 09/23/2014 by Vincent Fields, | | | | | | 3766 / | | MD (Quantity not on file) | | | | | | | + +--------+------+ +--------+--------+--------+ Results Not on [...] +--------+ +---------+--------+ | MEDICARE | MEDICA | [id number] | 10/19/19 | [phone] | | Medica | | | RE | | 13-Pre | 5 | | re | | | PART A | | sent | | | | | | AND B | | | | | | + +--------+ +--------+ +---------+--------+ | MEDICARE | MEDICA | [id number] | 05/31/ | [phone] | | Medica | | | RE | | 2019-P | 5 | | re | | | PART A | | resent | | | | | | AND B | | | | | | + +--------+ +--------+ +---------+--------+ | [employer] | TRANSA | [id number] | 10/19/19 | | | Indemn | | INSURANCE | MERICA | | 15-Pre | | | ity | | | LIFE | | sent | | | | | | MS | | | | | | + +--------+ +--------+ +---------+--------+ | [employer] | TRANSA | [id number] | 10/19/19 | | | Indemn | [...] Person | Self | [birth year] | [address] | | [place] | al/Fam | | 1945 | [phone] | [place], [place] | | | chas | | | 6 (Home) | [phone] | + +--------+ +--------+ + + | Jared Abraham | Person | Self | [birth year] | | [address] | | [place] | al/Fam | | 1945 | [phone] | [place], [place] | | | chas | | | 6 (Home) | [phone] | + +--------+ +--------+ + + Advance Directives + + + + + | Type | Date Recorded | Patient | Explanation | | | | Harvest Supervisor | | + + + + + | Power of | | | | | Fuel House Attendant | | | | + + + + + | Advance | 09/17/2019 8:31 | | | | Directive | AM | | | + + + + +
--- OUTSIDE RECORDS SUMMARY | ~2020-02-20 | XMS | Encounter Summary ---
Demographics + + + | Address | [address] | | | [place] [address] | + + + | Home Phone | | + + + | Preferred Language | Unknown | + + + | Marital Status | | + + + | Adventism Affiliation | Unknown | + + + | Race | Unknown | + + + | Ethnic Group | Unknown | + + + Author + + + | Author | [facility] | | | and [place] | + + + | Organization | [facility] | | | and [...] Team Providers + +------+ + | Care Avionics Technician Name | Role | Phone | + +------+ + | Carla Murphy | PCP | | | PA-C | | | + +------+ + Encounter Details +--------+ + + + + | Date | Type | Department | Care Team | Description | +--------+ + + + + | 01/31/ | Care | [facility] | Adon[place], | | | 2015 | Coordinatio | [facility] | Sailaja Chiang MD | | | | n | INFORMATION | | | | | | MANAGEMENT [address] | | | | | | [address] [place], [place] | | | | | | [address] | | | | | | [phone] | | | +--------+ + + + [...] DR | | | | | | [place] [address] | | | | | | [phone] | | | | | | | | +--------+ + + + + | 04/28/ | Procedure | Cardiology | | | | 2019 | visit | | | | +--------+ + + + + documented as of this encounter Visit Diagnoses Not on filedocumented in this encounter"
--- OUTSIDE RECORDS SUMMARY | ~2020-02-20 | XMS | Encounter Summary ---
Demographics + + + | Address | [address] | | | [place] [address] | + + + | Home Phone | | + + + | Preferred Language | Unknown | + + + | Marital Status | | + + + | Scientology Affiliation | Unknown | + + + | Race | Unknown | + + + | Ethnic Group | Unknown | + + + Author + + + | Author | [facility] | | | and [place] | + + + | Organization | [facility] | | | [...] Team Providers + +------+ + | Care Environmental Adviser Name | Role | Phone | + +------+ + | Carla Murphy | PCP | | | PA-C | | | + +------+ + Reason for Visit +---------+--------+ + | Reason | Onset | Comments | | | Date | | +---------+--------+ + | Results | 10/24/ | nocturnal oximetry | | | 2015 | | +---------+--------+ + Encounter Details +--------+ + + + + | Date | Type | Department | Care Team | Description | +--------+ + + + + | 10/24/ | Telephone | [facility] | [place], | Results (nocturnal | | 2015 | | PULMONARY [address] | Sailaja Chiang MD | oximetry) | | | | [place], | | | | | | [place] [address] | | | | | | [phone] | | | +--------+ + + + [...] Miscellaneous Notes Telephone Encounter - Soila Rudd, KEEGAN - 10/25/2015 1:54 PM PSTCalled Jared and advi sed that Dr Nicholson is recommending that he start nocturnal O2 at 2 l/m and have a repeat nocturnal pulse oximetry as his O2 sat was below 88% for 469.8 minutes on room air. Alla arnold r patient. Orders sent to [facility].Electronically signed by Soila Rudd RN at 0 10/25/2015 2:07 PM PSTdocumented in this encounter Plan of Treatment [...] [address] | | | | | | [place] [address] | | | | | | [phone] | | | | | | | [...]
--- OUTSIDE RECORDS SUMMARY | ~2020-02-20 | XMS | Encounter Summary ---
Demographics + + + | Address | [address] | | | [place] [address] | + + + | Home Phone | | + + + | Preferred Language | Unknown | + + + | Marital Status | | + + + | Caodaism Affiliation | Unknown | + + + | Race | Unknown | + + + | Ethnic Group | Unknown | + + + Author + + + | Author | [facility] | | | and [place] | + + + | Organization | [facility] | | | and [place] | + + + | Address | Unknown | + + + | Phone | Unavailable | + + + Support + + +---------+ + | Name | Relationship | Address | Phone | + + +---------+ + | Champ Enriquezzo | ECON | Unknown | | + + +---------+ + | Milichiqui Villavicencio | ECON | Unknown | | + + +---------+ + Care Team Providers + +------+ + | Care Reinstatement Clerk Name | Role | Phone | + +------+ + PCP | Unavailable | + +------+ + Encounter Details +--------+ + + + + | Date | Type | Department | Care Team | Description | +--------+ + + + + | 10/16/ | Hospital | [facility] | Conversion | Pain | | 2015 | Encounter | CONVERSION [address] | Transaction, | | | | | [address] | Provider Unknown | | | | | [place], [place] | [phone] | | | | | [address] | | | | | | [phone] | | | +--------+ + + + [...] DR | | | | | | [place] [address] | | | | | | [phone] | | | | | | | [...]
--- OUTSIDE RECORDS SUMMARY | ~2020-02-20 | XMS | Encounter Summary ---
Demographics + + + | Address | [address] | | | [place] [address] | + + + | Home Phone | | + + + | Preferred Language | Unknown | + + + | Marital Status | | + + + | Worship Affiliation | Unknown | + + + | Race | Unknown | + + + | Ethnic Group | Unknown | + + + Author + + + | Author | [facility] | | | and [place] | + + + | Organization | [facility] | | | and [place] | + + + | Address | Unknown | + + + | Phone | Unavailable | + + + Support + + +---------+ + | Name | Relationship | Address | Phone | + + +---------+ + | hCamp Enriquezzo | ECON | Unknown | | + + +---------+ + | Milichiqui Villavicencio | ECON | Unknown | | + + +---------+ + Care Team Providers + +------+ + | Care Stevedoring Superintendent Name | Role | Phone | + +------+ + PCP | Unavailable | + +------+ + Encounter Details +--------+ + + + + | Date | Type | Department | Care Team | Description | +--------+ + + + + | 01/27/ | Hospital | [facility] | Raiza Cote, | Cardiac pacemaker in | | 2009 - | Encounter | [facility] | [address] | situ | | | | CLINICAL DECISION | [address] [place], [place] | | | 01/28/ | | [address] | [address] | | | 2009 | | [place], [place] | [phone] | | | | | [address] | | | | | | [phone] | | | +--------+ + + + [...] | | | | | [place] [address] | | | | | | [phone] | | | | | | | [...] Performed At | + + + | [facility] [address] Ph: | | | Patient Name: FRANCI VELÁZQUEZ Date of : | | | 1945 Medical Record: [id number] Account: [id number] | | | Exam Date/Time: 01/27/2010 17:00 [...] - 04/13/2019 7:29 PM PDT | | [facility] | | [facility] [address] | | | | | | Patient Name: FRANCI VELÁZQUEZ | | Date of : 1945 | | Medical Record: [id number] | | Account: [id number] | | | | | | Exam [...] Performed At | + + + | [facility] [address] Ph: | | | Patient Name: FRANCI VELÁZQUEZ Date of : | | | 1945 Medical Record: [id number] Account: [id number] | | | Exam Date/Time: 01/27/2010 14:54 [...] | + + | David Mckeon - 04/13/2019 7:29 PM PDT | | [facility] | | [facility] [address] | | | | | | Patient Name: FRANCI VELÁZQUEZ | | Date of : 1945 | | Medical Record: [id number] | | Account: [id number] | | | | | | Exam [...] Performed At | + + + | [id number] [facility] | | | [facility] [address] | | | , | | | CARDIOLOGY Patient Name: FRANCI VELÁZQUEZ Date of : | | | 1945 Medical Record: [id number] Account: [id number] | | | [place] [address]/ Exam Date/Time: 01/27/2010 | | | 01:00 [...] | | DESCRIPTION OF PROCEDURE Implantation of HEAD NURSE/ICD was recommended. | | | Informed consent [...] cm, serial number | | | is [id number]. We found a suitable position in the [...] Medtronic 4195, serial number | | | [id number]. The right atrial lead is a Medtronic 5076, length | | | is 52 cm, serial number is [id number]. We found a suitable position | | [...] | | | delivery system using the FastCAPtronic universal slitter. | | | Fluoroscopically, lead position remained stable. In MONEGASQUE projection, | | | we adjusted the amount of redundancy on the lead and sutured it in | | | place. We then removed wires and stylets. We irrigated the pocket. | | | We then took the device which is a Skadoosh [id number], serial number | | | [id number]. We connected all 3 leads to the [...] 09:43 A P P | | | EDMUND/mehul/[id number]/cg | | + + + + + | Procedure Note | + + | David Mckeon Conversion - 04/13/2019 7:29 PM PDT | | [id number] | | [facility] | | [facility] [address] | | , | | CARDIOLOGY | | | | Patient Name: FRANCI VELÁZQUEZ | | Date of : 1945 | | Medical Record: [id number] | | Account: [id number] | | OPS/CDU [address]/ | | | | | | Exam [...] DESCRIPTION OF PROCEDURE | | Implantation of HEAD NURSE/ICD was recommended. Informed consent was obtained. | [...] 65 cm, serial | | number is [id number]. We found a suitable position in the [...] lead is a Medtronic 4195, serial number [id number]. | | | | | | The right atrial lead is a Medtronic 5076, length is 52 cm, serial | | number is [id number]. We found a suitable position in the [...] removed the LV delivery system using the FastCAPtronic universal | | slitter. Fluoroscopically, lead position remained stable. In MONEGASQUE | | projection, we adjusted the amount of redundancy on the lead and sutured | | it in place. | | | | We then removed wires and stylets. We irrigated the pocket. We then took | | the device which is a Skadoosh [id number], serial number [id number]. We | | connected all 3 leads [...] | P | | P | | EDMUND/mehul/[id number]/cg | + + documented in this encounter Visit Diagnoses + + | Diagnosis | + + | Cardiac pacemaker in situ | + + documented in this encounter"
--- OUTSIDE RECORDS SUMMARY | ~2020-02-20 | XMS | Encounter Summary ---
Demographics + + + | Address | [address] | | | [place] [address] | + + + | Home Phone [...] Team Providers + +------+ + | Care Process Tech Name | Role | Phone | + +------+ + | Carla Murphy | PCP | | | PA-C | | | + +------+ + Reason for Visit Auth/Cert +--------+--------+ + + + + | Status | Reason | Specialty | Diagnoses / | Referred By | Referred To | | | | | Procedures | Contact | Contact | +--------+--------+ + + + + | | | | Diagnoses | Jennifer, | Elma, | | | | | Abnormal | Poppy Beltran, | Roulazim O, | | | | | nuclear | DROP MAN [address] | MD [address] | | | | | stress test | [address] | [address] | | | | | Cardiac | [place] | [place] | | | | | resynchroniz | [facility] [place] | [address] Phone: | | | | | ation | [phone] | [phone] | | | | | therapy | Phone: | Fax: | | | | | defibrillato | [phone] | [phone] | | | | | r (NEWSPAPER PEDDLER-D) in | Fax: | | | | | | place | [phone] | | | | | | Non-ischemic | | | | | | | | | | | | | | cardiomyopat | | | | | | | hy (HCC) | | | | | | | Non-sustaine | | | | | | | d | | | | | | | ventricular | | | | | | | tachycardia | | | | | | | (HCC) | | | | | | | Orthostatic | | | | | | | hypotension | | | | | | | Essential | | | | | | | hypertension | | | | | | | Dyspnea on | | | | | | | exertion | | | | | | | Procedures | | | | | | | MN CATH PLMT | | | | | | | L HRT & | | | | | | | ARTS W/NJX & | | | | | | | ANGIO IMG | | | | | | | S&I | | | +--------+--------+ + + + + Encounter Details +--------+---------+ + + + | Date | Type | Department | Care Team | Description | +--------+---------+ + + + | 09/17/ | Surgery | [facility] | Kimmie Wills | CV Cor Angio | | 2020 | | CENTER CV INTRA OP | MD Saravanan [address] | | | | | [address] | [place] [place], [place] | | | | | [place], [place] | [address] | | | | | [address] | | | | | | [phone] | | | +--------+---------+ + + + [...] + + + | Blood Pressure | 136/76 | 09/17/2019 8:49 AM | | | | | PST | | + + + + + | Pulse | 57 | 09/17/2019 8:49 AM | | | | | PST | | + + + + + | Temperature | 36.8 C (98.2 F) | 09/17/2019 8:49 AM | | | | | PST | | + + + + + | Respiratory Rate | 18 | 09/17/2019 8:49 AM | | | | | PST | | + + + + + | Oxygen Saturation | 97% | 09/17/2019 8:49 AM | | | | | PST | | + + + + + | Inhaled Oxygen | - | - | | | Concentration | | | | + + + + + | Weight | 108.3 kg (238 lb | 09/17/2019 8:49 AM | | | | 12.1 oz) | PST | | + + + + + | Height | 177.8 cm (5' 10") | 09/17/2019 8:49 AM | | | | | PST | | + + + + + | Body Mass Index | 34.26 | 09/17/2019 8:49 AM | | | | | PST | | + + + + + documented in this encounter Discharge Instructions Instructions Jesús Caballero RN - 09/17/2019TR BAND Discharge Instructions You have had a procedure where the radial artery was used as access. Subsequently you had a TR band applied to stop bleeding. For 24 hours Avoid excessive extension and flexion wrist movement. Do no subject the hand to any foreceful movements (ie. Supporting weight when rising fro m a nikki or bed) Do not drive a car For 48 hours: Avoid heavy lifting (anything greater than 1 pound) with the affected arm for 2 days fol lowing discharge (consider your purse) Do not operate a lawnmower, motorcycle, chainsaw or all-terrain vehicle Avoid excessive extension and flexion wrist movements Do not engage in vigorous exercise (tennis or golf) using the affected arm For 7 days: Do not immerse your arm in water (handwashing, hot tub, bath tub) If bleeding occurs following discharge: Sit down and apply firm pressure to the site with your fingers for 10 minutes. If the blee ding stops, continue to sit quietly, keeping your wrist straight for 2 hours. Gently wipe t he area clean and cover with a bandage. Notify your physician as soon as possible If the bleeding does not stop after 10 minutes, there is a large amount of bleeding or spur ting, call 911 immediately. DO NOT DRIVE your self to the hospital emergency room. Other concerns: The site may be slightly bruised and sore following your procedure. There may be mild ting ling of your hand and tenderness at the site for up to 3 days. If this persists or any of t he following occur, contact your physician immediately. Redness/inflammation, swelling, chills or fever or colored drainage at the procedure site w ithin 3 - 7 days after your procedure, coldness, discoloration, ongoing numbness, severe krissy n or swelling. Follow all other instructions given to you by your physician. documented in this encounter Medications at Time of Discharge [...] documented as of this encounter Progress Notes Elena Torres RN - 09/17/2019 5:19 PM PSTAbout 1650 contacted maintenance shop laborer regarding pa marti feeling better and when could patient go. Instructed to have patient ambulate and see how he did. Patient able to ambulate in the room with what he says he normal feels when he s tands up too quickly. Resolved quickly. Patient able to dress with assist. Called back to [facility] and agreeable to have patient go home. Reviewed discharge instructions with patient. Patient discharged with [facility] belongings to [facility]. aJesús caldwell RN - 09/17/2019 4:12 PM PSTAbout 1545 patient started complaining that he did not feel right, pale. With vital signs stable. No diaphoresis, Denies pain or discomfort. 1600 blood suga r checked 125; less pale, states that he just doesn't feel well. esús Caballero RN - 09/17/2019 1:58 PM PSTDischarged home; instructions given and understanding verbalized/demonstrated; pain within acceptable l evel; ambulated to restroom and urinated; Dressing and arm board to arterial site; IV's DCed intact; WC to lobby. doc umented in this encounter Plan of Treatment +--------+ [...] DR | | | | | | [place] [address] | | | | | | [phone] | | | | | | | [...] +--------+ + + + | POC GLUCOSE (NON | Routin | 09/17/2019 | | Results for this | | ORD) | e | 4:07 PM | | procedure are in the | | | | PST | | results section. | + +--------+ + + + | CV CARDIAC PROCEDURE | Routin | 09/17/2019 | Abnormal nuclear | Results for this | | | e | 11:15 AM | stress test Cardiac | procedure are in the | | | | PST | resynchronization | results section. | | | | | therapy | | | | | | defibrillator | | | | | | (NEWSPAPER PEDDLER-D) in place | | | | | | Non-ischemic [...] hypertension | | | | | | Dyspnea on exertion | | + +--------+ + + + | CV CARDIAC PROCEDURE | Routin | 09/17/2019 | Abnormal nuclear | Results for this | | | e | 11:15 AM | stress test Cardiac | procedure are in the | | | | PST | resynchronization | results section. | | | | | therapy | | | | | | defibrillator | | | | | | (NEWSPAPER PEDDLER-D) in place | | | | | | Non-ischemic [...] hypertension | | | | | | Dyspnea on exertion | | + +--------+ + + + | CBC NO DIFFERENTIAL | STAT | 09/17/2019 | | Results for this | | | | 10:09 AM | | procedure are in the | | | | PST | | results section. | + +--------+ + + + | BASIC METABOLIC | Routin | 09/17/2019 | | Results for this | | PANEL | e | 10:09 AM | | procedure are in the | | | | PST | | results section. | + +--------+ + + + | POC GLUCOSE (NON | Routin | 09/17/2019 | | Results for this | | ORD) | e | 9:38 AM | | procedure are in the | | | | PST | | results section. | + +--------+ + + + documented in this encounter Results POC Glucose (09/17/2019 4:07 PM PST) + + + + + + | Component | Value | Ref Range | Performed | Pathologist | | | | | At | Signature | + + + + + + | Glucose, | 125 (H)Comment: Testing | 65 - 99 mg/dL | [facility] | | | POC | performed at [facility];[address] | | LABORATORY | | | | [address];[place], [place] | | | | | | [address] | | | | + + + + + + + + | Specimen | + + | | + + + + + + + | Performing | Address | City/State/Zipcode | Phone Number | | Organization | | | | + + + + + | [facility] | [address] | [place] [address] | [phone] | + + + + + CV CARDIAC PROCEDURE (09/17/2019 11:15 AM PST) + + | Specimen | + + | | + + + + + | Narrative | Performed At | + + + | Summary No | | | significant coronary artery disease Mildly elevated left ventricular | | | diastolic pressure, 30 mmHg Recommendations Results discussed with | | | the patient Ongoing risk factor modification is appropriate On the | | | basis of the results today, the patient's functional study is falsely | | | positive Procedures Performed Coronary angiography with left heart | | | cath ([id number]) Procedure Summary Access site: right radial | | | artery Anticoagulation: heparin Antiplatelet therapy: None | | | Closure: Radial band/closure device Clinical IndicationsThis is a 74 | | | y.o. year old male with history of nonischemic cardiomyopathy based | | | on coronary angiogram more than 10 years ago, chronic heart failure, | | | and ventricular tachycardia, had by V ICD, has been experiencing | | | worsening shortness of breath, recurrent ventricular tachycardia, | | | nuclear stress test was abnormal and showed further reduction in LVEF | | | from 35 to 40% down to 18% and evidence of infarct. For additional | | | detail as to the procedures performed and the equipment that was | | | utilized, please refer to the Procedure Log. | | | Closure: Radial band/closure device | | | | | |Clinical Indications | | |This is a 74 y.o. year old male with history of nonischemic cardiomyopathy | | |based on coronary angiogram more than 10 years ago, chronic heart failure, | | |and ventricular tachycardia, had by V ICD, has been experiencing worsening | | |shortness of breath, recurrent ventricular tachycardia, nuclear stress | | |test was abnormal and showed further reduction in LVEF from 35 to 40% down | | |to 18% and evidence of infarct. | | | | | | | | | | | | | | |For additional detail as to the procedures performed and the equipment | | |that was utilized, please refer to the Procedure Log. | | | | | + + + Basic Metabolic Panel (09/17/2019 10:09 AM PST) + + + + + + | Component | Value | Ref Range | Performed | Pathologist | | | | | At | Signature | + + + + + + | Na | 141 | 135 - 145 | [facility] | | | | | mmol/L | LABORATORY | | + + + + + + | K | 4.2 | 3.5 - 4.9 | [facility] | | | | | mmol/L | LABORATORY | | + + + + + + | Cl | 103 | 99 - 109 mmol/L | [facility] | | | | | | LABORATORY | | + + + + + + | CO2 | 32 | 23 - 32 mmol/L | [facility] | | | | | | LABORATORY | | + + + + + + | Anion Gap | 10 | 5 - 20 mmol/L | [facility] | | | | | | LABORATORY | | + + + + + + | Glucose | 126 (H) | 65 - 99 mg/dL | [facility] | | | | | | LABORATORY | | + + + + + + | BUN | 12 | 8 - 25 mg/dL | [facility] | | | | | | LABORATORY | | + + + + + + | Creatinine | 0.93 | 0.70 - 1.30 | [facility] | | | | | mg/dL | LABORATORY | | + + + + + + | BUN/Creatin | 13 | | [facility] | | | ine Ratio | | | LABORATORY | | + + + + + + | Calcium | 8.8 | 8.5 - 10.5 | [facility] | | | | | mg/dL | LABORATORY | | + + + + + + | Estimated | >60Comment: GFR <60: | >60 | [facility] | | | GFR | CHRONIC KIDNEY DISEASE, | mL/min/1.73m2 | LABORATORY | | | | IF FOUND OVER [...] | | | | | | MDRD IDPA traceable | | | | | | equation.Testing | | | | | | performed at [facility];[address] | | | | | | [facility];[place], [place] | | | | | | [address] | | | | + + + + + + + + | Specimen | + + | | + + + + + + + | Performing | Address | City/State/Zipcode | Phone Number | | Organization | | | | + + + + + | [facility] | [address] [facility] | [place] [address] | [phone] | + + + + + CBC no Differential (09/17/2019 10:09 AM PST) + + + + + + | Component | Value | Ref Range | Performed | Pathologist | | | | | At | Signature | + + + + + + | WBC | 11.39 (H) | 3.80 - 11.00 | [facility] | | | | | K/uL | LABORATORY | | + + + + + + | RBC | 4.68 | 4.20 - 5.70 | [facility] | | | | | M/uL | LABORATORY | | + + + + + + | Hemoglobin | 14.1 | 13.2 - 17.0 | [facility] | | | | | g/dL | LABORATORY | | + + + + + + | Hematocrit | 41.0 | 39.0 - 50.0 % | [facility] | | | | | | LABORATORY | | + + + + + + | MCV | 87.6 | 80.0 - 100.0 fl | [facility] | | | | | | LABORATORY | | + + + + + + | MCH | 30.2 | 27.0 - 34.0 pg | [facility] | | | | | | LABORATORY | | + + + + + + | MCHC | 34.5 | 32.0 - 35.5 | [facility] | | | | | g/dL | LABORATORY | | + + + + + + | RDW-SD | 48.1 | 37 - 53 fl | [facility] | | | | | | LABORATORY | | + + + + + + | Platelet | 158 | 150 - 400 K/uL | [facility] | | | Count | | | LABORATORY | | + + + + + + | MPV | 8.7Comment: Testing | fl | [facility] | | | | performed at [facility];[address] | | LABORATORY | | | | [address];[place] | | | | | | [address] | | | | + + + + + + + + | Specimen | + + | Blood | + + + + + + + | Performing | Address | City/State/Zipcode | Phone Number | | Organization | | | | + + + + + | [facility] | [address] | [place] [address] | [phone] | + + + + + POC Glucose (09/17/2019 9:38 AM PST) + + + + + + | Component | Value | Ref Range | Performed | Pathologist | | | | | At | Signature | + + + + + + | Glucose, | 127 (H)Comment: Testing | 65 - 99 mg/dL | [facility] | | | POC | performed at [facility];[address] | | LABORATORY | | | | [address];[place], [place] | | | | | | [address] | | | | + + + + + + + + | Specimen | + + | | + + + + + + + | Performing | Address | City/State/Zipcode | Phone Number | | Organization | | | | + + + + + | [facility] | [address] | [place] [address] | [phone] | + + + + + documented in this encounter Visit Diagnoses + + | Diagnosis | + + | Abnormal nuclear stress test Other nonspecific abnormal cardiovascular system | | function study | + + | Cardiac resynchronization therapy defibrillator (NEWSPAPER PEDDLER-D) in place | + + | Non-ischemic cardiomyopathy (HCC) Other primary cardiomyopathies | + + | Non-sustained ventricular tachycardia (HCC) Paroxysmal ventricular tachycardia | + + | Orthostatic hypotension | + + | Essential hypertension Unspecified essential hypertension | + + | Dyspnea on exertion Other dyspnea and respiratory abnormality | + + documented in this encounter Admitting Diagnoses + + | Diagnosis | + + | Abnormal nuclear stress test Other nonspecific abnormal cardiovascular system | | function study | + + | Cardiac resynchronization therapy defibrillator (NEWSPAPER PEDDLER-D) in place | + + | Non-ischemic cardiomyopathy (HCC) Other primary cardiomyopathies | + + | Non-sustained ventricular tachycardia (HCC) Paroxysmal ventricular tachycardia | + + | Orthostatic hypotension | + + | Dyspnea on exertion Other dyspnea and respiratory abnormality | + + | Essential hypertension Unspecified essential hypertension | + + documented in this encounter Administered Medications + +--------+ +-------+------+------+ | Medication Order | MAR | Action | Dose | Rate | Site | | | Action | Date | | | | + +--------+ +-------+------+------+ | diphenhydrAMINE (BENADRYL) | Given | 09/17/19 | 25 mg | | | | capsule 25 mg 25 mg, Oral, ON | | 20 9:40 | | | | | CALL, Starting 09/17/19 at | | AM PST | | | | | 0838, For 1 dose, Pre-op | | | | | | + +--------+ +-------+------+------+ +---+---+ | | | +---+---+ + +-------+ +--------+---+---+ | fentaNYL (PF) injection ONCE | Given | 09/17/19 | 25 mcg | | | | PRN, Starting 09/17/19 at | | 20 11:53 | | | | | 1153, Intra-op | | AM PST | | | | + +-------+ +--------+---+---+ +---+---+ | | | +---+---+ + +-------+ +--------+---+---+ | heparin 1,000 units/mL | Given | 09/17/19 | 5,000 | | | | injection ONCE PRN, Starting Sun | | 20 11:50 | Units | | | | 09/17/19 at 1150, Intra-op | | AM PST | | | | + +-------+ +--------+---+---+ +---+---+ | | | +---+---+ + +-------+ +--------+---+---+ | iohexol (OMNIPAQUE 300) 300 | Given | 09/17/19 | 45 mLs | | | | mg/mL injection ONCE PRN, | | 20 11:59 | | | | | Starting Sun09/17/19 at 1159, | | AM PST | | | | | Intra-op | | | | | | + +-------+ +--------+---+---+ +---+---+ | | | +---+---+ + +-------+ +-------+---+---+ | lidocaine 1% injection ONCE | Given | 09/17/19 | 5 mLs | | | | PRN, Starting Sun09/17/19 at | | 20 11:48 | | | | | 1148, Intra-op | | AM PST | | | | + +-------+ +-------+---+---+ +---+---+ | | | +---+---+ + +-------+ +---------+---+---+ | nitroglycerin injection ONCE | Given | 09/17/19 | 200 mcg | | | | PRN, Starting Sun09/17/19 at | | 20 11:49 | | | | | 1149, Intra-op | | AM PST | | | | + +-------+ +---------+---+---+ +---+---+ | | | +---+---+ + +---------+ +---------+-------+---+ | sodium chloride 0.9% (NS) bolus | New Bag | 09/17/19 | 125 mLs | 125 | | | 125 mL 125 mL, Intravenous, | | 20 9:30 | | mL/hr | | | Administer over 1 Hours, DRAIN CLEANER, | | AM PST | | | | | Starting Sun09/17/19 at 0838, | | | | | | | For 1 dose, Begin 1 hour prior to | | | | | | | procedure., Pre-op | | | | | | + +---------+ +---------+-------+---+ + +---+ | | | + +---+ | sodium chloride 0.9% (NS) | | | infusion at 100 mL/hr, | | | Intravenous, CONTINUOUS, Starting | | | 09/17/19 at 1245 | | + +---+ | | | + +---+ + +-------+ +--------+---+---+ | verapamil injection ONCE PRN, | Given | 09/17/19 | 2.5 mg | | | | Starting 09/17/19 at 1149, | | 20 11:49 | | | | | Intra-op | | AM PST | | | | + +-------+ +--------+---+---+ +---+---+ | | | +---+---+ documented in this encounter
--- OUTSIDE RECORDS SUMMARY | ~2020-02-20 | XMS | Encounter Summary ---
Demographics + + + | Address | [address] | | | [place] [address] | + + + | Home Phone | | + + + | Preferred Language | Unknown | + + + | Marital Status | | + + + | Pentecostal Affiliation | Unknown | + + + [...] | + + +---------+ + | Milichiqui Oqunedow | ECON | Unknown | | + + +---------+ + Care Team Providers + +------+ + | Care Coffee Plantation Worker Name | Role | Phone | + +------+ + | Carla Murphy | PCP | | | PA-C | | | + +------+ + Reason for Visit + +--------+ + | Reason | Onset | Comments | | | Date | | + +--------+ + | Medication Refill | 10/21/ | | | | 2020 | | + +--------+ + Encounter Details +--------+--------+ + + + | Date | Type | Department | Care Team | Description | +--------+--------+ + + + | 10/21/ | Refill | [facility] | Nav Foley, | Medication Refill | | 2019 | | CARDIOLOGY [place] | [address] | | | | | [address] | [place] [address] | | | | | [place], [place] | [phone] | | | | | [address] | | | | | | [phone] | | | +--------+--------+ + + + Social History + +-------+ [...] this encounter Miscellaneous Notes Telephone Encounter - Livia Shook Medical Assistant - 10/22/2019 4:18 PM PSTPatien t in office today documented in this encounter Plan of Treatment [...] DR | | | | | | [place] [address] | | | | | | [phone] | | | | | | | | +--------+ + + + + | 04/28/ | Procedure | Cardiology | | | | 2019 | visit | | | | +--------+ + + + + documented as of this encounter Visit Diagnoses Not on filedocumented in this encounter"
--- OUTSIDE RECORDS SUMMARY | ~2020-02-20 | XMS | Encounter Summary ---
Demographics + + + | Address | [address] | | | [place] [address] | + + + | Home Phone [...] Team Providers + +------+ + | Care Cutter Plastics Rolls Name | Role | Phone | + +------+ + | Carla Murphy | PCP | | | PA-C | | | + +------+ + Reason for Visit + +--------+ + | Reason | Onset | Comments | | | Date | | + +--------+ + | Spoke With Patient | 08/05/ | | | | 2018 | | + +--------+ + Encounter Details +--------+ + + + + | Date | Type | Department | Care Team | Description | +--------+ + + + + | 08/05/ | Telephone | [facility] | Mary Tipton, ANP | Spoke With Patient | 2018 | | CARDIOLOGY [place] | [address] | | | | | [address] | [place], [place] | | | | | [place], [place] | [address] | | | | | [address] | | | | | | [phone] | | | +--------+ + + + [...] Telephone Encounter - Mary Tipton ANP - 08/05/2019 3:36 PM PSTHe called in complaining o f fatigue. Advised to lower Amiodarone to 300mg daily until he sees me in August, at which time, we will plan to lower to 200mg daily. Options are limited. ERNIE Deal documented in this enco unter [...] [address] | | | | | | [facility] [place] [address] | | | | | | [phone] | | | | | | | | +--------+ + + + + | 04/28/ | Procedure | Cardiology | | | | 2019 | visit | | | | +--------+ + + + + documented as of this encounter Visit Diagnoses Not on filedocumented in this encounter"
--- OUTSIDE RECORDS SUMMARY | ~2020-02-20 | XMS | Encounter Summary ---
Demographics + + + | Address | [address] | | | [place] [address] | + + + | Home Phone | | + + + | Preferred Language | Unknown | + + + | Marital Status | | + + + | Shinto Affiliation | Unknown | + + + | Race | Unknown | + + + | Ethnic Group | Unknown | + + + Author + + + | Author | [facility] | | | and [place] | + + + | Organization | [facility] | | | [...] Team Providers + +------+ + | Care Staff Nuclear Medicine Technologist Name | Role | Phone | + +------+ + | Carla Murphy | PCP | | | PA-C | | | + +------+ + Reason for Visit + +--------+ + | Reason | Onset | Comments | | | Date | | + +--------+ + | Intake Questions | 09/15/ | | | | 2020 | | + +--------+ + Encounter Details +--------+ + + + + | Date | Type | Department | Care Team | Description | +--------+ + + + + | 09/15/ | Telephone | [facility] | Janet, | Intake Questions | | 2019 | | [facility] | Nanci Hooks RN | | | | | [address] | | | | | | [place] | | | | | | [address] | | | | | | [phone] | | | +--------+ + + + [...] this encounter Miscellaneous Notes Telephone Encounter - Nanci Gonzales RN - 09/15/2019 4:33 PM PSTPt called with questions in regards to his angiogram on Sunday. Pt would like to speak to Dr. Elam bruno. I have given him the pt's name and number so he can call and address pt concerns. Byron goel, Nanci Gonzales RN.Electronically signed by Nanci Gonzales RN at 4:42 PM PSTdocumented in this encounter Plan of [...] DR | | | | | | [place] [address] | | | | | | [phone] | | | | | | | | +--------+ + + + + | 04/28/ | Procedure | Cardiology | | | | 2019 | visit | | | | +--------+ + + + + documented as of this encounter Visit Diagnoses Not on filedocumented in this encounter"
--- OUTSIDE RECORDS SUMMARY | ~2020-02-20 | XMS | Encounter Summary ---
Demographics + + + | Address | [address] | | | [place] [address] | + + + | Home Phone | | + + + | Preferred Language | Unknown | + + + | Marital Status | | + + + | Congregation Affiliation | Unknown | + + + [...] Team Providers + +------+ + | Care Field Hauler Name | Role | Phone | + [...] Provider Unknown | | | | | [place], [place] | | | | | | [address] | (Fax) | | | | | [...] DR | | | | | | [facility] [address] | | | | | | [phone] | | | | | | | [...]
--- OUTSIDE RECORDS SUMMARY | ~2020-02-20 | XMS | Encounter Summary ---
Demographics + + + | Address | [address] | | | [place] [address] | + + + | Home Phone | | + + + | Preferred Language | Unknown | + + + | Marital Status | | + + + | Restoration Affiliation | Unknown | + + + | Race | Unknown | + + + | Ethnic Group | Unknown | + + + Author + + + | Author | [facility] | | | and [place] | + + + | Organization | [facility] | | [...] Team Providers + +------+ + | Care Twisting Frame Changer Name | Role | Phone | + [...] + + | 06/18/ | Documentati | [facility] | Sharron Khan, | Other (end of study) | | 2019 | on | [facility] [place] | Technologist | | | | | [address] | | | | | | [place] | | | | | | [address] | | | | | | [phone] | | | +--------+ + + + [...] documented as of this encounter Progress Notes Sharron Khan, Technologist - 06/18/2019 11:59 PM PDTTELEMETRY [...] | | | | | [place] [address] | | | | | | [phone] | | | | | | | [...]
--- OUTSIDE RECORDS SUMMARY | ~2020-02-20 | XMS | Encounter Summary ---
Demographics + + + | Address | [address] | | | [place] [address] | + + + | Home Phone | | + + + | Preferred Language | Unknown | + + + | Marital Status | | + + + | Scientologist Affiliation | Unknown | + + + | Race | Unknown | + + + | Ethnic Group | Unknown | + + + Author + + + | Author | [facility] | | | and [place] | + + + | Organization | [facility] | | | [...] Team Providers + +------+ + | Care Mold Press Operator Name | Role | Phone | + +------+ + | Carla Murphy | PCP | | | PA-C | | | + +------+ + Encounter Details +--------+ + + + + | Date | Type | Department | Care Team | Description | +--------+ + + + + | 11/01/ | Orders Only | [facility] | Conversion | | | 2016 | | [facility]ARDIOLOGY [place] | Transaction, | | | | | [address] | Provider Unknown | | | | | [place], [place] | [phone] | | | | | [address] | | | | | | [phone] | | | +--------+ + + + [...] [address] | | | | | | [place] [address] | | | | | | [phone] | | | | | | | [...] | EXTERNAL LAB: CBC | Routin | 11/02/2015 | | Results for this | | | e | 11:48 PM | | procedure are in the | | | | PDT | | results section. | + +--------+ + + + | TROPONIN I | Routin | 11/02/2015 | | Results for this | | | e | 11:48 PM | | procedure are in the | | | | PDT | | results section. | + +--------+ + + + | PTT | Routin | 11/02/2015 | | Results for this | | | e | 11:48 PM | | procedure are in the | | | | PDT | | results section. | + +--------+ + + + | PROTIME INR | Routin | 11/02/2015 | | Results for this | | | e | 11:48 PM | | procedure are in the | | | | PDT | | results section. | + +--------+ + + + | COMPREHENSIVE | Routin | 11/02/2015 | | Results for this | | METABOLIC PANEL | e | 11:48 PM | | procedure are in the | | | | PDT | | results section. | + +--------+ + + + documented in this encounter Results Troponin I (11/02/2015 11:48 PM PDT) + +-------+ + + + | Component | Value | Ref Range | Performed | Pathologist | | | | | At | Signature | + +-------+ + + + | Troponin I, | 0.010 | ng/mL | EXTERNAL | | | Qual | | | LAB | | + +-------+ + + + + + | Specimen | + + | Blood specimen | | (specimen) | + + + +---------+ + + | Performing | Address | City/State/Zipcode | Phone Number | | Organization | | | | + +---------+ + + | EXTERNAL LAB | | | | + +---------+ + + PTT (11/02/2015 11:48 PM PDT) + +-------+ + + + | Component | Value | Ref Range | Performed | Pathologist | | | | | At | Signature | + +-------+ + + + | aPTT, | 26.5 | 22.9 - 41.3 | EXTERNAL | | | Patient | | | LAB | | + [...] | + +---------+ + + Protime INR (11/02/2015 11:48 PM PDT) + +-------+ + + + | Component | Value | Ref Range | Performed | Pathologist | | | | | At | Signature | + +-------+ + + + | Prothrombin | 13.6 | seconds | EXTERNAL | | | Time | | | LAB | | + +-------+ + + + | INR | 1.0 | | EXTERNAL | | | | [...] + +---------+ + + External Lab: CBC (11/02/2015 11:48 PM PDT) + +--------+ + + + | Component | Value | Ref Range | Performed | Pathologist | | | | | At | Signature | + +--------+ + + + | WBC | 10.0 | 4.5 - 11.0 10 | EXTERNAL | | | | | | LAB | | + +--------+ + + + | Red Blood | 5.24 | 4.3 - 5.7 10 | EXTERNAL | | | Cells | | | LAB | | | Counted | | | | | + +--------+ + + + | Hemoglobin | 15.7 | 13.5 - 18.0 | EXTERNAL | | | | | g/dL | LAB | | + +--------+ + + + | Hematocrit, | 47.7 | 41 - 50 % | EXTERNAL | | | POC | | | LAB | | + +--------+ + + + | MCV | 91.1 | 81 - 99 fL | EXTERNAL | | | | | | LAB | | + +--------+ + + + | MCH | 30 | 27 - 33 pg | EXTERNAL | | | | | | LAB | | + +--------+ + + + | MCHC | 33 | 30 - 36 g/dL | EXTERNAL | | | | | | LAB | | + +--------+ + + + | Platelet | 190 | 140 - 440 K/ L | EXTERNAL | | | Count | | | LAB | | | Plasma | | | | | + +--------+ + + + | RDW-CV | 13.4 | 10.5 - 15.0 % | EXTERNAL | | | | | | LAB | | + +--------+ + + + | MPV | | fL | EXTERNAL | | | | | | LAB | | + +--------+ + + + | Differentia | | | EXTERNAL | | | l Type | | | LAB | | + +--------+ + + + | % Segmented | 84 (A) | 39 - 80 % | EXTERNAL | | | | | | LAB | | | Neutrophils | | | | | + +--------+ + + + | % | 8 (A) | 24 - 44 % | EXTERNAL | | | Lymphocytes | | | LAB | | + +--------+ + + + | % Monocytes | 3 | 0 - 12 % | EXTERNAL | | | | | | LAB | | + +--------+ + + + | % | 0 | 0 - 6 % | EXTERNAL | | | Eosinophils | | | LAB | | + +--------+ + + + | % Basophils | 1 | 0 - 2 % | EXTERNAL | | | | | | LAB | | + +--------+ + + + | Absolute | | / L | EXTERNAL | | | Segmented | | | LAB | | | Neutrophils | | | | | + +--------+ + + + | Absolute | | / L | EXTERNAL | | | Lymphocytes | | | LAB | | + +--------+ + + + | Absolute | | / L | EXTERNAL | | | Monocytes | | | LAB | | + +--------+ + + + | Absolute | | / L | EXTERNAL | | | Eosinophils | | | LAB | | + +--------+ + + + | Absolute | | / L | EXTERNAL | | | Basophils | | | LAB | | + [...] + +---------+ + + Comprehensive Metabolic Panel (11/02/2015 11:48 PM PDT) + +---------+ + + + | Component | Value | Ref Range | Performed | Pathologist | | | | | At | Signature | + +---------+ + + + | Glucose, | 118 (A) | 70 - 100 mg/dL | EXTERNAL | | | Fasting | | | LAB | | + +---------+ + + + | BUN | 14 | 6 - 23 mg/dL | EXTERNAL | | | | | | LAB | | + +---------+ + + + | Creatinine | 0.88 | 0.70 - 1.25 | EXTERNAL | | | | | mg/dL | LAB | | + +---------+ + + + | BUN/Creatin | 15.9 | 6.0 - 28.6 | EXTERNAL | | | ine Ratio | | | LAB | | + +---------+ + + + | Calcium | 9.2 | 8.4 - 10.2 | EXTERNAL | | | | | mg/dL | LAB | | + +---------+ + + + | Protein, | 6.4 | 6.0 - 8.0 g/dL | EXTERNAL | | | Total | | | LAB | | + +---------+ + + + | Albumin | 4.0 | 3.5 - 5.0 | EXTERNAL | | | | | | LAB | | + +---------+ + + + | Globulin | 2.4 | 1.8 - 3.5 | EXTERNAL | | | | | | LAB | | + +---------+ + + + | A/G Ratio | 1.7 | 1.1 - 2.4 | EXTERNAL | | | | | | LAB | | + +---------+ + + + | Bilirubin | 1.4 (A) | 0.0 - 1.2 mg/dL | EXTERNAL | | | Total | | | LAB | | + +---------+ + + + | ALP, | 61 | 30 - 128 | EXTERNAL | | | External | | | LAB | | + +---------+ + + + | ALT | 18 | 7 - 52 U/L | EXTERNAL | | | | | | LAB | | + +---------+ + + + | AST | 15 | 13 - 39 U/L | EXTERNAL | | | | | | LAB | | + +---------+ + + + | Na | 135 | 132 - 143 | EXTERNAL | | | | | mmol/L | LAB | | + +---------+ + + + | K | 4.2 | 3.6 - 5.1 | EXTERNAL | | | | | mmol/L | LAB | | + +---------+ + + + | Cl | 98 | 95 - 112 mmol/L | EXTERNAL | | | | | | LAB | | + +---------+ + + + | CO2 | 29 | 19 - 31 mmol/L | EXTERNAL | | | | | | LAB | | + +---------+ + + + | Anion Gap | 12.2 | 7 - 21 mmol/L | EXTERNAL | | | | | | LAB | | + +---------+ + + + | Estimated | 86 | 60 mg/dL | EXTERNAL | | | GFR [...]
--- OUTSIDE RECORDS SUMMARY | ~2020-02-20 | XMS | Encounter Summary ---
Demographics + + + | Address | [address] | | | [place] [address] | + + + | Home Phone [...] Team Providers + +------+ + | Care Cinder Crusher Operator Name | Role | Phone | + +------+ + | Carla Murphy | PCP | | | PA-C | | | + +------+ + Encounter Details +--------+ + + + + | Date | Type | Department | Care Team | Description | +--------+ + + + + | 01/11/ | Orders Only | [facility] | Gretchen Joy, | | | 2018 | | [place] | [address] | | | | | [address] | [place], [place] | | | | | [place], [place] | [address] | | | | | [address] | | | | | | [phone] | | | +--------+ + + + [...] DR | | | | | | [place] [address] | | | | | | [phone] | | | | | | | [...]
--- OUTSIDE RECORDS SUMMARY | ~2020-02-20 | XMS | Encounter Summary ---
Demographics + + + | Address | [address] | | | [place] [address] | + + + | Home Phone [...] Team Providers + +------+ + | Care Hotel Controller Name | Role | Phone | + [...] + + | 08/05/ | Telephone | [facility] | Mary Tipton, ANP | Spoke With Patient | 2018 | | [facility]IOLOGY [place] | [address] | | | | | [address] | [place], [place] | | | | | [place], [place] | [address] | | | | | [address] | | | | | | [phone] | | | +--------+ + + + [...] [address] | | | | | | [facility] [place] [place] [address] | | | | | | [phone] | | | | | | | | +--------+ + + + + | 04/28/ | Procedure | Cardiology | | | | 2019 | visit | | | | +--------+ + + + + documented as of this encounter Visit Diagnoses Not on filedocumented in this encounter"
--- OUTSIDE RECORDS SUMMARY | ~2020-02-20 | XMS | Encounter Summary ---
Demographics + + + | Address | [address] | | | [place] [address] | + + + | Home Phone | | + + + | Preferred Language | Unknown | + + + | Marital Status | | + + + | Christian Affiliation | Unknown | + + + [...] Team Providers + +------+ + | Care Almond Paste Mixer Name | Role | Phone | + +------+ + PCP | Unavailable | + +------+ + Encounter Details +--------+ + + + + | Date | Type | Department | Care Team | Description | +--------+ + + + + | 10/16/ | Hospital | [facility] | Conversion | Pain | | 2015 | Encounter | CONVERSION [address] | Transaction, | | | | | [address] | Provider Unknown | | | | | [place], [place] | [phone] | | | | | [address] | | | | | | [phone] | | | +--------+ + + + [...] DR | | | | | | [place] [address] | | | | | | [phone] | | | | | | | [...]
--- OUTSIDE RECORDS SUMMARY | ~2020-02-20 | XMS | Encounter Summary ---
Demographics + + + | Address | [address] | | | [place] [address] | + + + | Home Phone [...] Team Providers + +------+ + | Care Balance Weigher Name | Role | Phone | + [...] | | | | | | [address] [place], [place] | | | | | | [address] | | | | | | [phone] | | | +--------+ + + + [...] f rom the original. Referral Referral # [id number] Referral Information Referral # Creation Date Referral Status Status Update [id number] 01/21/2016 Authorized 01/24/2016:Status History. Status Reason Referral Type Referral Reasons Referral Class No Approval Necessary - Patient Tracking Evaluate & Treat none Outgoing To Specialty To Provider To Location/POS To Department none none [facility] none Vendor Referred By By Location/POS By Department none Sailaja Nicholson none [facility] Priority Start Date Expiration Date Referral Entered By Routine 01/21/2016 07/19/2016 LYNDSAY LYNN Visits Requested Visits Authorized Visits Completed Visits Scheduled 1 1 Procedure Information Procedure Modifiers Provider Requested Approved 17868 (CPT) - [place] OFFICE OUTPATIENT VISIT 25 MINUTES 1 1 [...] To [address] 10/18/2012 BENJA BELCHER [address] Subscriber Name Subscriber Date Member ID FRANCI VELÁZQUEZ 1945 [id number] Guarantor Name (ID) Guarantor Date Guarantor Address Guarantor Type FRANCI VELÁZQUEZ ([id number]) 1945 [address] Personal/[place] [id number] [employer] Payor Plan Insurance Group Employer/Plan Group [employer] PL[employer] G Payor Plan Address Payor Plan Phone Number Effective From Effective To [address] 10/18/2014 GIA Parker [address] Subscriber Name Subscriber Date Member ID FRANCI VELÁZQUEZ 1945 [id number] Guarantor Name (ID) Guarantor Date Guarantor Address Guarantor Type FRANCI VELÁZQUEZ ([id number]) 1945 [address] [place] Personal/[place] [id number] Referral Notes Type Date User General 01/31/2016 [...] Summary ??> APPROVED> [place]> CONTINUITY OF CARE> [facility] Note APPROVED New - Scheduling Minimum Data Set | Provider Notes: | Payer: [facility] SUPP PLAN G | Subscriber Name: Self | & [id number] | Auth ID: Not required by payer | CPT Provided? Yes | Dx Code Provided? | Additional Contact Info: - NO ABN REQUIRED PER MED ASSETS CODE COMPLIANCE [facility] SUPP - NO PA REQUIRED. FOLLOWS GUIDELINES PER CALL TO [facility]. [phone] Type Date User General 01/21/2016 1645 LYNDSAY LYNN Note Referral to [facility] for continued care documented in [...] | | | | | [place] [address] | | | | | | [phone] | | | | | | | | +--------+ + + + + | 04/28/ | Procedure | Cardiology | | | | 2020 | visit | | | | +--------+ + + + + documented as of this encounter Visit Diagnoses Not on filedocumented in this encounter"
--- OUTSIDE RECORDS SUMMARY | ~2020-02-20 | XMS | Encounter Summary ---
Demographics + + + | Address | [address] | | | [place] [address] | + + + | Home Phone [...] Providers + +------+ + | Care Sales Development Director Name | Role | Phone | [...] Chiang MD | | | | | [place], | | | | | | [place] [address] | | | | | | [phone] | | | +--------+ + + + [...] daily. Okay per patient. Prescription sent to [facility] documented in this encounter Plan of Treatment [...] | | | | | [place] [address] | | | | | | [phone] | | | | | | | | +--------+ + + + + | 04/28/ | Procedure | Cardiology | | | | 2020 | visit | | | | +--------+ + + + + documented as of this encounter Visit Diagnoses Not on filedocumented in this encounter"
--- OUTSIDE RECORDS SUMMARY | ~2020-02-20 | XMS | Encounter Summary ---
Demographics + + + | Address | [address] | | | [place] [address] | + + + | Home Phone [...] Team Providers + +------+ + | Care Brake Lining Finisher Name | Role | Phone | + +------+ + PCP | Unavailable | + +------+ + Encounter Details +--------+ + + + + | Date | Type | Department | Care Team | Description | +--------+ + + + + | 05/17/ | Hospital | [facility] | Conversion | Cardiomyopathy | | 2015 - | Encounter | [facility] | Transaction, | ([facility]); S/P AAA | | | | CLINICAL DECISION | Provider Unknown | repair | | 05/18/ | | [address] [facility] | [phone] | | | 2015 | | [place], [place] | | | | | | [address] | Terrance Martinez MD | | | | | [phone] | PhD [address] [facility] | | | | | | [address] | | | | | | [place] [address] | | | | | | [phone] | | | | | | | [...] 1103 Date of Service: 05/18/15830 Status: Signed Electrical Drafter: MORRO Lin (Nurse Practitioner) [facility] PATIENT NAME: Franci Velázquez : 1945: AGE: [...] Note by Cyndee Warner RN at 05/18/15 7725 Author: Cyndee Warner RN Service: (none) Author Type: Registered Nurse Filed: 05/18/15 4541 Date of Service: 09/29/15 1137 Status: Signed Electrical Drafter: Cyndee Warner RN (Registered Nurse) Patient discharge instructions were reviewed with patient at bedside. Patient states they u nderstand instructions.No concerns or questions voiced at this time. IV removed. Patient emmanuel eugene be discharging home to [place] with a ride from his friend. onver chetna Transaction, Provider Unknown - 05/18/2015 10:29 AM PDT Nurse Progress Note by Cyndee Warner RN at 05/18/15 1029 Author: Cyndee Warner RN Service: (none) Author Type: Registered Nurse Filed: 05/18/15 1030 Date of Service: 05/18/15 1029 Status: Signed Electrical Drafter: Cyndee Warner RN (Registered Nurse) Patient c/o [...] Date of Service: 05/18/15 1018 Status: Signed Electrical Drafter: Mackenzie Caballero RN (Registered Nurse) 05/18/15 1017 [...] y.o., male who lives alone in a [facility] apartment. Pt did not identify financial, [...] home, friend Mili to transport home to [place], [place] MACKENZIE CABALLERO onver chetna Transaction, Provider Unknown - 05/17/2015 10:51 PM PDT Nurse Progress Note by Melva Harper RN at 05/17/152250 Author: Melva Harper RN Service: (none) Author Type: Registered Nurse Filed: 05/17/152252 Date of Service: 05/17/152250 Status: Signed Electrical Drafter: Melva Harper RN (Registered Nurse) Called Dr [...] 05/17/15741 Date of Service: 05/17/15741 Status: Signed Electrical Drafter: Terrance Martinez MD (Physician) [facility] Service: Cardiology Pre-Operative History & Physical There [...] referred to electrophysiology by Nav romano Md [address] [place] [address] [place] [address] REASON FOR CONSULTATION: Chief Complaint Patient presents with Establish Care ICD at [facility] in January- bygonzalez pt ASSESSMENT & PLAN: 69-year-old male with history of nonischemic cardiomyopathy, NYHA class II, status post imp lantation of a MDT SERVICE PORTER-D by Dr. Chiang in January 2010, obesity and strong suspicion for sleep apnea , recent AAA repair (09/2014). Device is now at [facility]. 1. MDT SERVICE PORTER-D: Tripped [facility] on March 15, 2015. BiV pacing 99.6%. Patient has a Medtronic Consu lta SERVICE PORTER-D [id number]. 5076 atrial lead Medtronic. 6947 Sprint Quattro [...] given severe anxiety. 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 He enjoys going to the [employer] where he plays the slot machines. He is very anxious about his generator prescott e. EK04/05/2015 personally reviewed and interpreted reveals BiVpacing HR 91, ID 160 , QRSD 1 60, QTC 523 [...] No results found for: METF, NMETFX, TFNMFX, [id number], VCOQAC22NPT, TOTEPI REVIEW OF SYSTEMS: Constitutional: Negative for [...] 05/18/15101 Date of Service: 05/18/15101 Status: Signed Electrical Drafter: Melva Harper RN (Registered Nurse) Problem: Pain [...] DR | | | | | | [place] [address] | | | | | | [phone] | | | | | | | [...] of | | | | | | -MAR-2015 | | | | | | 15:54,Biventricular [...] + + | Historically converted procedure from [facility] Epic environment | EXTERNAL LAB | [...] PREPROCEDURE DIAGNOSIS | | | Nonischemic cardiomyopathy, SERVICE PORTER-D system at elective replacement | | | indicator. PROCEDURES PERFORMED 1. Periprocedural SERVICE PORTER evaluation, | | | programming and optimization. 2. Removal of a SERVICE PORTER pulse generator. | | | 3. Implantation of a SERVICE PORTER pulse generator. 4. Fluoroscopic lead | | | evaluation without revision or replacement (75394). PHYSICIAN | | | Terrance Martinez MD [...] by echocardiogram April 2015, | | | [place] [employer] functional Class II, status severe sleep | | | apnea, recent triple aneurysm, prepare SERVICE PORTER system presently at [facility] | | | underlying the patient's left bundle branch block with ongoing | | | depressed LV ejection fraction for which ongoing ICD protection and | | | SERVICE PORTER therapy is indicated. The patient is referred [...] ICD, serial number | | | PUD [id number], implanted January 27, 2010. IMPLANTED MATERIALS | | | Medtronic Viva XT SERVICE PORTER-D, serial number [id number]. PREVIOUSLY | | | IMPLANTED LEADS Medtronic right atrial lead, 5076, 52 cm, serial | | | number [id number], implanted January 27, 2010, 4 mV P waves, impedance | | | 399 ohms, threshold 0.5 V at 0.5 msec. RV lead is a Medtronic | | | 6947, 65 cm, serial number [id number], implanted January 27, 2010, 5.5 | | | mV R waves, impedance 988 ohms, threshold 0.5 V at 0.4 msec. LV | | | lead is a Medtronic 4195, 88 cm, serial number [id number], implanted | | | January 27, 2010. We know that this is a Medtronic StarFix lead, | | | impedance 456 ohms, threshold 0.75 V at 0.4 msec. Periprocedure, | | | the patient's ICD was assessed with stored fluoroscopy in both the | | | GREENLAND[place] and V[place] fluoroscopic views demonstrating satisfactory lead | | | positioning and no observable mechanical disruption. Vinh | | | programming is DDD 60 to 120, sleep hysteresis 50 beats per minute. | | | ECG-guided SERVICE PORTER optimization was performed noting the prior LV offset | | | was -20. This was assessed at unpaced, 0, -20, -40. Unpaced there | | | was left bundle branch block, QRS 138, ID 178 msec. At 0 offset, QRS | [...] | the patient's equivocal clinical response to SERVICE PORTER therapies in 2009. | | | IMPRESSION Successful replacement of a SERVICE PORTER-D pulse generator with | | | successful SERVICE PORTER optimization selecting an LV offset of -40 [...] | PREPROCEDURE DIAGNOSIS | | Nonischemic cardiomyopathy, SERVICE PORTER-D system at elective replacement | | indicator. | | | | PROCEDURES PERFORMED | | 1. Periprocedural SERVICE PORTER evaluation, programming and optimization. | | 2. Removal of a SERVICE PORTER pulse generator. | | 3. Implantation of a SERVICE PORTER pulse generator. | | 4. Fluoroscopic lead evaluation without revision or replacement (92775). | | | | PHYSICIAN | | [...] 35% by echocardiogram April | | 2014, [place] [employer] functional Class II, status severe sleep | | apnea, recent triple aneurysm, prepare SERVICE PORTER system presently at [facility] | | underlying the patient's left bundle branch block with ongoing depressed | | LV ejection fraction for which ongoing ICD protection and SERVICE PORTER therapy is | | indicated. The patient [...] | Medtronic Bi-V ICD, serial number PUD [id number], implanted January 27, 2010. | | | | IMPLANTED MATERIALS | | Medtronic Viva XT SERVICE PORTER-D, serial number [id number]. | | | | PREVIOUSLY IMPLANTED LEADS | | Medtronic right atrial lead, 5076, 52 cm, serial number [id number], | | implanted January 27, 2010, 4 mV P waves, impedance 399 ohms, threshold 0.5 V | | at 0.5 msec. | | | | RV lead is a Medtronic 6947, 65 cm, serial number [id number], implanted | | January 27, 2010, 5.5 mV R waves, impedance 988 ohms, threshold 0.5 V at 0.4 | | msec. | | | | LV lead is a Medtronic 4195, 88 cm, serial number [id number], implanted | | January 27, 2010. We know that this is a Medtronic StarFix lead, impedance | | 456 ohms, threshold 0.75 V at 0.4 msec. | | | | Periprocedure, the patient's ICD was assessed with stored fluoroscopy in | | both the GREEN[place] and VILLAL[place]O fluoroscopic views demonstrating satisfactory lead | | positioning and no observable mechanical disruption. | | | | Vinh programming is DDD 60 to 120, sleep hysteresis 50 beats per minute. | | | | ECG-guided SERVICE PORTER optimization was performed noting the prior LV offset was | | -20. This was assessed at unpaced, 0, -20, -40. Unpaced there was left | | bundle branch block, QRS 138, ID 178 msec. At 0 offset, QRS was [...] patient's equivocal clinical | | response to SERVICE PORTER therapies in 2009. | | | | IMPRESSION | | Successful replacement of a SERVICE PORTER-D pulse generator with successful SERVICE PORTER | | optimization selecting an LV offset [...] | | | 0.43 m/s TV Dec Coal: 1.33 m/s2 TV Dec Time: 204.41 ms TV E | | | Frank: 0.27 m/s TV E/A Ratio: 0.62 Tumblers Supervisor: PEDRITO | | | Authenticated by: Terrance [...] 148.95 mlLVLs A4C: 7.54 cmLAAs A4C: 13.83 [id number] A-L | | A4C: 39.99 mlLALs A4C: 4.06 cmAo Diam: 3.85 cmAV Cusp: 2.04 cmLA Diam: 4.15 | | cmLA/Ao: 1.07HR: 81.35 BPMAV maxP.24 mmHgAV meanP.14 mmHgAV Vmax: 0.90 | | m/Fabricio Vmean: 0.71 m/Fabricio VTI: 14.68 cmAVA Vmax: 3.26 cm2AVA (VTI): 3.58 vu8FHCM | | Dopp: 1.79 l/pqbx9GCNX Dopp: 4.25 l/minHR: 80.74 BPMLVOT maxP.51 mmHgLVOT [...] A Frank: 0.43 m/sTV Dec | | Coal: 1.33 m/s2TV Dec Time: 204.41 msTV E Frank: 0.27 m/sTV E/A Ratio: 0.62 | | Tumblers Supervisor: Raquelticated by: Terrance Martinez MDReport Date/Time: 05-30-2015 15:21:28 | | IMPRESSION: 1. [...] A Frank: 0.43 m/s | |TV Dec Coal: 1.33 m/s2 | |TV Dec Time: 204.41 ms | |TV E Frank: 0.27 m/s | |TV E/A Ratio: 0.62 | | | |Tumblers Supervisor: PEDRITO | |Authenticated by: Terrance Martinez MD [...] EXTERNAL LAB | | Testing performed at [facility];[address] [place] [address];[place] [address] MRSA PCR | | | NEGATIVE Testing performed at | | | [facility];[address] [place] [address];[place] [address] | | + + + + +---------+ [...] K/uL | LAB | | | | [facility];[address] | | [address];[place] [address] | | | | + + + + + + | Red Blood | 5.14Comment: Testing | 4.20 - 5.70 | EXTERNAL | | | Cells | performed at [facility];[address] | M/uL | LAB | | | Counted | [address];[place] | | | | | | [address] | | | | + + + + + + | Hemoglobin | 15.7Comment: Testing | 13.2 - 17.0 | EXTERNAL | | | | performed at [facility];[address] | g/dL | LAB | | | | [address];[place] | | | | | | [address] | | | | + + + + + + | Hematocrit, | 47.0Comment: Testing | 39.0 - 50.0 % | EXTERNAL | | | POC | performed at [facility];[address] | | LAB | | | | [address];[place] | | | | | | [address] | | | | + + + + + + | MCV | 91.3Comment: Testing | 80.0 - 100.0 fl | EXTERNAL | | | | performed at [facility];[address] | | LAB | | | [address];[place] | | | | | | [address] | | | | + + + + + + | MCH | 30.5Comment: Testing | 27.0 - 34.0 pg | EXTERNAL | | | | performed at [facility];[address] | | LAB | | | [address];[place] | | | | | | [address] | | | | + + + + + + | MCHC | 33.4Comment: Testing | 32.0 - 35.5 | EXTERNAL | | | | performed at [facility];888 | g/dL | LAB | | | | [address];[place] | | | | | | [address] | | | | + + + + + + | RDW-CV | 45.9Comment: Testing | 37 - 53 fl | EXTERNAL | | | | performed at [facility];[address] | | LAB | | | [address];[place] | | | | | | [address] | | | | + + + + + + | Platelet | 226Comment: Testing | 150 - 400 K/uL | EXTERNAL | | | Count | performed at [facility];[address] | | LAB | | | Plasma [address];[place] | | | | | | [address] | | | | + + + + + + | MPV | 7.9Comment: Testing | fl | EXTERNAL | | | | performed at [facility];[address] | | LAB | | | [address];[place] | | | | | | [address] | | | | + + + + + + | Differentia | MANUALComment: Testing | | EXTERNAL | | | l Type | performed at [facility];[address] | | LAB | | | [address];[place] | | | | | | [address] | | | | + + + + + + | Segmented | 79Comment: Testing | % | EXTERNAL | | | Neutrophils | performed at [facility];[address] | | LAB | | | Manual | [address];[place] | | | | | | [address] | | | | + + + + + + | Lymphocytes | 10Comment: Testing | % | EXTERNAL | | | Manual | performed at [facility];[address] | | LAB | | | [address];[place] | | | | | | [address] | | | | + + + + + + | Monocytes | 11Comment: Testing | % | EXTERNAL | | | Manual | performed at [facility];[address] | | LAB | | | [address];[place] | | | | | | [address] | | | | + + + + + + | Absolute | 10.23 (H)Comment: | 1.90 - 7.40 | EXTERNAL | | | Neutrophils | Testing performed at | K/uL | LAB | | | | [facility];[address];[place] [address] | | | | + + + + + + | Absolute | 1.30Comment: Testing | 1.00 - 3.90 | EXTERNAL | | | Lymphocytes | performed at [facility];[address] | K/uL | LAB | | | | [address];[place] | | | | | | [address] | | | | + + + + + + | Absolute | 1.43 (H)Comment: Testing | 0.00 - 0.80 | EXTERNAL | | | Monocytes | performed at [facility];[address] | K/uL | LAB | | | | [address];[place] | | | | | | [address] | | | | + + + + + + | RBC | RBC AND PLT MORPHOLOGY | | EXTERNAL | | | Morphology | APPEAR NORMALComment: | | LAB | | | | Testing performed at | | | | | | [facility];[address];[place] [address] | | | | + + + [...] EXTERNAL | | | | performed at [facility];888 | mmol/L | LAB | | | | [address];[place] | | | | | | [address] | | | | + + + + + + | K | 4.2Comment: SLT | 3.5 - 4.9 | EXTERNAL | | | | HEMOLYSISTesting | mmol/L | LAB | | | | performed at [facility];[address] | | | | | | [address];[place] | | | | | | [address] | | | | + + + + + + | Cl | 101Comment: Testing | 99 - 109 mmol/L | EXTERNAL | | | | performed at [facility];[address] | | LAB | | | [address];[place] | | | | | | [address] | | | | + + + + + + | CO2 | 30Comment: Testing | 23 - 32 mmol/L | EXTERNAL | | | | performed at [facility];[address] | | LAB | | | [address];[place] | | | | | | [address] | | | | + + + + + + | Anion Gap | 11Comment: Testing | 5 - 20 mmol/L | EXTERNAL | | | | performed at [facility];[address] | | LAB | | | | [address];[place] | | | | | | [address] | | | | + + + + + + | Glucose, | 123 (H)Comment: Testing | 65 - 99 mg/dL | EXTERNAL | | | Fasting | performed at [facility];[address] | | LAB | | | [address];[place] | | | | | | [address] | | | | + + + + + + | BUN | 14Comment: Testing | 8 - 25 mg/dL | EXTERNAL | | | | performed at [facility];[address] | | LAB | | | [address];[place] | | | | | | [address] | | | | + + + + + + | Creatinine | 0.94Comment: Testing | 0.70 - 1.30 | EXTERNAL | | | | performed at [facility];[address] | mg/dL | LAB | | | | [address];[place] | | | | | | [address] | | | | + + + + + + | BUN/Creatin | 15Comment: Testing | | EXTERNAL | | | ine Ratio | performed at [facility];[address] | | LAB | | | | [address];[place] | | | | | | [address] | | | | + + + + + + | Calcium | 8.9Comment: Testing | 8.5 - 10.5 | EXTERNAL | | | | performed at [facility];888 | mg/dL | LAB | | | | [address];[place] | | | | | | [address] | | | | + + + [...] | | | | | | at [facility];[address];[place] [address] | | | | + + + [...]
--- OUTSIDE RECORDS SUMMARY | ~2020-02-20 | XMS | Encounter Summary ---
Demographics + + + | Address | [address] | | | [place] [address] | + + + | Home Phone [...] Team Providers + +------+ + | Care Timber Cruiser Name | Role | Phone | + +------+ + | Carla Murphy | PCP | | | PA-C | | | + +------+ + Encounter Details +--------+ + + + + | Date | Type | Department | Care Team | Description | +--------+ + + + + | 06/18/ | Procedure | [facility] | Nav Foley, | Palpitations | | 2019 | visit | [facility] [place] | [address] | | | | | [address] | [place] [address] | | | | | [place], [place] | [phone] | | | | | [address] | | | | | | [phone] | | | +--------+ + + + [...] Progress Notes Sharron Khan, Technologist - 06/18/2019 3:00 PM PDT30 day telemetry 24509 cardiac monit or placed on patient. EOB/Billing information discussed. Instructions given and understood. Patient instructed to call [employer] for any billing or monitor questions. documented [...] DR | | | | | | [place] [address] | | | | | | [phone] | | | | | | | [...]
--- OUTSIDE RECORDS SUMMARY | ~2020-02-20 | XMS | Encounter Summary ---
Demographics + + + | Address | [address] | | | [place] [address] | + + + | Home Phone | | + + + | Preferred Language | Unknown | + + + | Marital Status | | + + + | [employer] Affiliation | Unknown | + + + [...] Team Providers + +------+ + | Care Superior Court Clerk Name | Role | Phone | [...] | Offenstein, | Chronic obstructive | | 2015 | | PULMONARY [address] | Sailaja Chiang MD | pulmonary disease, | | | | [place], | | unspecified COPD | | | | [place] [address] | | type (HCC) (Primary | | | | [phone] | | Dx) | +--------+ + + [...] | | | | | [place] [address] | | | | | | [phone] | | | | | | | [...] | | Sailaja Nicholson MD 10/24/2015 15:44 [facility] | | | [facility] CC: Carla Juarez PA-C | | + + + documented in this encounter Visit Diagnoses + + | Diagnosis | + + | Chronic obstructive pulmonary disease, unspecified COPD type (HCC) - Primary | + + documented in this encounter"
--- OUTSIDE RECORDS SUMMARY | ~2020-02-20 | XMS | Encounter Summary ---
Demographics + + + | Address | [address] | | | [place] [address] | + + + | Home Phone | | + + + | Preferred Language | Unknown | + + + | Marital Status | | + + + | Episcopalian Affiliation | Unknown | + + + | Race | Unknown | + + + | Ethnic Group | Unknown | + + + Author + + + | Author | [facility] | | | and [place] | + + + | Organization | [facility] | | | [...] Providers + +------+ + | Care Water Service Dispatcher Name | Role | Phone | + [...] + + | 07/30/ | Procedure | [facility] | | Syncope and collapse | | 2019 | visit | [facility] [place] | | (Primary Dx); | | | | [address] | | Cardiac | | | | [place], [place] | | resynchronization | | | | [address] | | therapy | | | | [phone] | | defibrillator | | | | | | (PRICING/SIGNAGE TEAM MEMBER-D) in place; | | | | | [...] Syncope and collapse; Cardiac resynchronization therapy defibrillator (PRICING/SIGNAGE TEAM MEMBER-D) in place; Non-sustained ventricular tachycardia (HCC); Non-ischemic cardiomyopathy (HCC)Device interrogation done by Mary Tipton Any events or changes listed in office note. See device data attached to scheduled encounter for additional details. polisher brass: Orin Shoemaker, polisher brass [facility] Associated attestation - Mary Tipton ANP - 07/30/2019 4:43 PM PST Problem List Cardiac resynchronization therapy defibrillator (PRICING/SIGNAGE TEAM MEMBER-D) in place Overview History of nonischemic cardiomyopathy, NYHA class II, status post implantation of a MDT C RT-D by Dr. Chiang in January 2010. Generator change by Dr. Delarosa in 2014 viva xt PRICING/SIGNAGE TEAM MEMBER D MDT number [id number].Patient has a 5076 atrial lead Medtronic. 6947 [...] at the time of his hospitalization at [facility]. Non-ischemic cardiomyopathy Overview EF 35-40%, class [...] recent stress testing. Request echo results from [facility]. Will discuss next steps with Dr. [...] data and rhythm strips, please see osmin se/wind commissioning technician entry in the notes section and [...] DR | | | | | | [place] [address] | | | | | | [phone] | | | | | | | [...] defibrillator | | | | | | (PRICING/SIGNAGE TEAM MEMBER-D) in place | | | | | [...] encounter for additional details. | | | polisher brass: Orin Shoemaker, polisher brass [facility] | | |See device data attached to scheduled encounter for additional | | |details. | | | | | |polisher brass: Orin Shoemaker, polisher brass [facility] | | | | | | [...] + + | Cardiac resynchronization therapy defibrillator (PRICING/SIGNAGE TEAM MEMBER-D) in place | + + | Non-sustained ventricular tachycardia (HCC) Paroxysmal ventricular tachycardia | + + | Non-ischemic cardiomyopathy (HCC) Other primary cardiomyopathies | + + documented in this encounter"
--- OUTSIDE RECORDS SUMMARY | ~2020-02-20 | XMS | Encounter Summary ---
Demographics + + + | Address | [address] | | | [place] [address] | + + + | Home Phone | | + + + | Preferred Language | Unknown | + + + | Marital Status | | + + + | Buddhist Affiliation | Unknown | + + + | Race | Unknown | + + + | Ethnic Group | Unknown | + + + Author + + + | Author | [facility] | | | and [place] | + + + | Organization | [facility] | | | and [...] + +------+ + | Care Digital Media Director Name | Role | Phone | + +------+ + PCP | Unavailable | + +------+ + Encounter Details +--------+ + + + + | Date | Type | Department | Care Team | Description | +--------+ + + + + | 09/17/ | Hospital | [facility] | Conversion | | | 2015 | Encounter | [facility] | Transaction, | | | | | CLINIC [address] | Provider Unknown | | | | | [address] [place], [place] | | | | | | [address] | | | | | | [phone] | | | +--------+ + + + [...] documented as of this encounter Procedure Notes Conversion Transaction, Provider Unknown - 09/17/2014 12:16 PM PSTFormatting of this note m ight be different from the original. Pre-Procedure Instructions by Beronica Bonilla RN at 09/17/14 1216 Author: Beronica Bonilla RN Service: (none) Author Type: Registered Nurse Filed: 09/17/14 1216 Date of Service: 09/17/141215 Status: Signed Warehouse Pricing And Inventory Clerk: Beronica Bonilla RN (Registered Nurse) Pt states he is very sensitive to pain medications. They can make his heart stop onver chetna Transaction, Provider Unknown - 09/17/2014 11:44 AM PST Pre-Procedure Instructions by Beroniac Bonilla RN at 09/17/14 1144 Author: Beronica Bonilla RN Service: (none) Author Type: Registered Nurse Filed: 09/17/14 1145 Date of Service: 09/17/141143 Status: Signed Warehouse Pricing And Inventory Clerk: Beronica Bonilla RN (Registered Nurse) AHA Guidelines for non emergent, non cardiac surgery followed. METS score greater than 4. D enies any chest pain, SOB or any other cardiac symptoms. Pt sees Dr. Foley and has a yari r. Last pacemaker check on 07/30/14 which is viewable in [employer] along with last chart note. docume nted in this encounter Plan of Treatment +--------+ + + + + | Date | Type | Specialty | Care Team | Description | +--------+ + + + + | 02/24/ | Procedure | Cardiology | | | | 2019 | visit | | | | +--------+ + + + + | 04/28/ | Office | Cardiology | Alaina Nav N, | | | 2019 | Visit | | [address] | | | | | | [place] [address] | | | | | | [phone] | | | | | | | [...] | + + + | FRANCI Hooks [employer] XR CHEST 2 VIEW FRONTAL AND LATERAL [...] Mike, Rad Conversion - 04/03/2019 11:51 PM FRANCISCO WILLAMS CHEST 2 VIEW | | FRONTAL [...] EXTERNAL LAB | | Testing performed at [address];[place] [address] MRSA PCR | | | NEGATIVE Testing performed at | | | [address];[place] [address] | | + + + + +---------+ [...] | | EXTERNAL | | | | KM;[address] | | LAB | | | | Blvd;[place] [address] | | | | + + + + + + | Antibody | NEGATIVE | | EXTERNAL | | | Screen | | | LAB | | + + + + + + | Antibody | Testing performed at | | EXTERNAL | | | Screen | [facility];[address] | | LAB | | | | Blnorm;[place] [address] | | | | + + + [...] | | | Patient | performed at [facility];[address] | | LAB | | | | [facility];[place], [place] | | | | | | [address] | | | | + + + [...] | | | | | performed at [facility];[address] | | | | | | [address];[place] | | | | | | [address] | | | | + + + [...] | | | | | [place] [address] | | | | + + + + + + | Red Blood | 5.03Comment: Testing | 4.20 - 5.70 | EXTERNAL | | | Cells | performed at [facility], [address] | M/uL | LAB | | | Counted | [address], | | | | | | [place] [address] | | | | + + + + + + | Hemoglobin | 15.5Comment: Testing | 13.2 - 17.0 | EXTERNAL | | | | performed at [facility], [address] | g/dL | LAB | | | | [address], | | | | | | [place] [address] | | | | + + + + + + | Hematocrit, | 45.4Comment: Testing | 39.0 - 50.0 % | EXTERNAL | | | POC | performed at [facility], [address] | | LAB | | | | [address], | | | | | | [place] [address] | | | | + + + + + + | MCV | 90.1Comment: Testing | 80.0 - 100.0 fl | EXTERNAL | | | | performed at [facility], [address] | | LAB | | | | [address], | | | | | | [place] [address] | | | | + + + + + + | MCH | 30.8Comment: Testing | 27.0 - 34.0 pg | EXTERNAL | | | | performed at [facility], [address] | | LAB | | | | [address], | | | | | | [place] [address] | | | | + + + + + + | MCHC | 34.2Comment: Testing | 32.0 - 35.5 | EXTERNAL | | | | performed at [facility], [address] | g/dL | LAB | | | | [address], | | | | | | [place] [address] | | | | + + + + + + | RDW-CV | 43.3Comment: Testing | 37 - 53 fl | EXTERNAL | | | | performed at [facility], [address] | | LAB | | | | [address], | | | | | | [place] [address] | | | | + + + + + + | Platelet | 227Comment: Testing | 150 - 400 K/uL | EXTERNAL | | | Count | performed at [facility], [address] | | LAB | | | Plasma | [address], | | | | | | [place] [address] | | | | + + + + + + | MPV | 8.6Comment: Testing | fl | EXTERNAL | | | | performed at [facility], [address] | | LAB | | | | [address], | | | | | | [place] [address] | | | | + + + + + + | Differentia | MANUALComment: Testing | | EXTERNAL | | | l Type | performed at [facility], [address] | | LAB | | | | [address], | | | | | | [place] [address] | | | | + + + + + + | Segmented | 83Comment: Testing | % | EXTERNAL | | | Neutrophils | performed at [facility], [address] | | LAB | | | Manual | [address], | | | | | | [place] [address] | | | | + + + + + + | Lymphocytes | 11Comment: Testing | % | EXTERNAL | | | Manual | performed at [facility], [address] | | LAB | | | | [address], | | | | | | [place] [address] | | | | + + + + + + | Monocytes | 5Comment: Testing | % | EXTERNAL | | | Manual | performed at [facility], [address] | | LAB | | | | [address], | | | | | | [place] [address] | | | | + + + + + + | Eosinophils | 1Comment: Testing | % | EXTERNAL | | | Manual | performed at [facility], [address] | | LAB | | | | [address], | | | | | | [place] [address] | | | | + + + + + + | Absolute | 12.2 (H)Comment: Testing | 1.9 - 7.4 K/uL | EXTERNAL | | | Neutrophils | performed at [facility], [address] | | LAB | | | | [address], | | | | | | [place] [address] | | | | + + + + + + | Absolute | 1.6Comment: Testing | 1.0 - 3.9 K/uL | EXTERNAL | | | Lymphocytes | performed at [facility], [address] | | LAB | | | | [address], | | | | | | [place] [address] | | | | + + + + + + | Absolute | 0.7Comment: Testing | 0 - 0.8 K/uL | EXTERNAL | | | Monocytes | performed at [facility], [address] | | LAB | | | | [address], | | | | | | [place] [address] | | | | + + + + + + | Absolute | 0.1Comment: Testing | 0 - 0.5 K/uL | EXTERNAL | | | Eosinophils | performed at [facility], [address] | | LAB | | | | [address], | | | | | | [place] [address] | | | | + + + + + + | RBC | RBC AND PLT MORPHOLOGY | | EXTERNAL | | | Morphology | APPEAR NORMALComment: | | LAB | | | | Testing performed at | | | | | | [facility], [address] | | | | | | [place] | | | | | | [address] | | | | + + + [...] | | | | | [place] [address] | | | | + + + + + + | K | 4.2Comment: Testing | 3.5 - 4.9 | EXTERNAL | | | | performed at [facility], [address] | mmol/L | LAB | | | | [address], | | | | | | [place] [address] | | | | + + + + + + | Cl | 98 (L)Comment: Testing | 99 - 109 mmol/L | EXTERNAL | | | | performed at [facility], [address] | | LAB | | | | [address], | | | | | | [place] [address] | | | | + + + + + + | CO2 | 31Comment: Testing | 23 - 32 mmol/L | EXTERNAL | | | | performed at [facility], [address] | | LAB | | | | [address], | | | | | | [place] [address] | | | | + + + + + + | Anion Gap | 9Comment: Testing | 5 - 20 mmol/L | EXTERNAL | | | | performed at [facility], [address] | | LAB | | | | [address], | | | | | | [place] [address] | | | | + + + + + + | Glucose, | 115 (H)Comment: Testing | 65 - 99 mg/dL | EXTERNAL | | | Fasting | performed at [facility], [address] | | LAB | | | | [address], | | | | | | [place] [address] | | | | + + + + + + | BUN | 16Comment: Testing | 8 - 25 mg/dL | EXTERNAL | | | | performed at [facility], [address] | | LAB | | | | [address], | | | | | | [place] [address] | | | | + + + + + + | Creatinine | 0.98Comment: Testing | 0.70 - 1.30 | EXTERNAL | | | | performed at [facility], [address] | mg/dL | LAB | | | | [address], | | | | | | [place] [address] | | | | + + + + + + | BUN/Creatin | 16Comment: Testing | | EXTERNAL | | | ine Ratio | performed at [facility], [address] | | LAB | | | | [address], | | | | | | [place] [address] | | | | + + + + + + | Calcium | 9.9Comment: NOTE NEW | 8.5 - 10.5 | EXTERNAL | | | | REFERENCE RANGETesting | mg/dL | LAB | | | | performed at [facility], [address] | | | | | | [facility], | | | | | | [place] [address] | | | | + + + [...] | | | | | | at [facility], [address] | | | | | | [facility], | | | | | | [place] [address] | | | | + + + [...] + + | Historically converted procedure from [facility] Epic environment | EXTERNAL LAB | + + + + +---------+ + + | Performing | Address | City/State/Zipcode | Phone Number | | Organization | | | | + +---------+ + + | EXTERNAL LAB | | | | + +---------+ + + documented in this encounter Visit Diagnoses Not on filedocumented in this encounter"
--- OUTSIDE RECORDS SUMMARY | ~2020-02-20 | XMS | Encounter Summary ---
Demographics + + + | Address | [address] | | | [place] [address] | + + + | Home Phone | | + + + | Preferred Language | Unknown | + + + | Marital Status | | + + + | Jew Affiliation | Unknown | + + + | Race | Unknown | + + + | Ethnic Group | Unknown | + + + Author + + + | Author | [facility] | | | and [place] | + + + | Organization | [facility] [...] Team Providers + +------+ + | Care Informatica Mdm Architect Name | Role | Phone | [...] | | stress test | [address] [facility] | | | | | Procedures | [address] | [address] | | | | | [place] Nuclear | [address] | [address] | | | | | Stress Test | [place], [place] | [place] | | | | | (Vasodilator | [address] | [address] | | | | | ) | Phone: | Phone: | | | | | | [phone] | [phone] | | | | | | Fax: | Fax: | | | | | | [phone] | [phone] | +--------+--------+ + + + + Reason [...] | | stress test | [address] | [facility] | | | | | Procedures | [address] | [address] | | | | | [place] Nuclear | [address] | [address] | | | | | Stress Test | [place], [place] | [place] | | | | | (Vasodilator | [address] | [address] | | | | | ) | Phone: | Phone: | | | | | | [phone] | [phone] | | | | | | Fax: | Fax: | | | | | | [phone] | [phone] | +--------+--------+ + + + + Encounter Details +--------+ + + + + | Date | Type | Department | Care Team | Description | +--------+ + + + + | 08/26/ | Hospital | [facility] | Bird, Mary C, ANP | Abnormal stress test | | 2020 | Encounter | [facility] [place] [place] | [address] | | | | | [address] | [place], [place] | | | | | [address] | [address] | | | | | [place], [place] | | | | | | [address] | | | | | | [phone] | | | +--------+ + + + [...] DR | | | | | | [place] [address] | | | | | | [phone] | | | | | | | [...]
--- OUTSIDE RECORDS SUMMARY | ~2020-02-20 | XMS | Encounter Summary ---
Demographics + + + | Address | [address] | | | [place] [address] | + + + | Home Phone [...] Team Providers + +------+ + | Care Education Manager Name | Role | Phone | [...] | | | [address] | [address] [place], [place] | | | | | [place], [place] | [address] | | | | | [address] | | | | | | [phone] | | | +--------+ + + + [...] DR | | | | | | [place] [address] | | | | | | [phone] | | | | | | | [...] PV maxP.92 mmHg PV Vmax: 0.99 m/s [employer] Pe Teacher: | | | Authenticated by: LIZBET LYNN MD Report Date/Time: -- | | | [id number]:9:34 | | + + + + + | Procedure Note | + + | David Mckeon Conversion - 04/10/2019 3:23 [...] cmLVPWd: 1.13 cmLVOT Area: | | 5.09 [id number] Diam: 2.54 cm%FS: 1.72 %EF(Teich): 3.94 %ESV(Teich): [...] (A-L): 45.03 | | ml/m2LAAs A2C: 31.66 [id number] A-L A2C: 147.72 mlLALs A2C: 5.75 cmLAAs A4C: 21.81 | | [id number] A-L A4C: 68.38 mlLALs A4C: 5.90 cmRAAs: 25.43 [id number] A-L: 100.41 | | mlRAESV MOD: 92.04 mlRALs: 5.46 cmAo Diam: 3.82 cmLA Diam: 4.65 cmLA/Ao: | | 1.21TAPSE: 2.41 cmAV maxP.90 mmHgAV meanP.40 mmHgAV Vmax: 1.21 m/Fabricio | | Vmean: 0.87 m/Fabricio VTI: 23.83 cmAVA Vmax: 3.69 cm2AVA (VTI): 3.60 gv0KNDF Vmax: | | 0.00 cm2/m2AVAI (VTI): 0.00 cm2/m2LVOT maxP.10 mmHgLVOT meanP.59 mmHgLVSI | | Dopp: 37.97 ml/m2LVSV Dopp: 85.81 mlLVOT Vmax: 0.88 m/sLVOT Vmean: 0.59 m/sLVOT | | VTI: 16.83 cmMV A Frank: 0.65 m/sMV DecT: 257.92 msMV E Frank: 0.47 m/sMV E/A | | Ratio: 0.73MV PHT: 74.79 msMVA By PHT: 2.94 da8Fdntjq e': 0.04 m/sSeptal E/e': | | 11.67Lateral e': 0.04 m/sLateral E/e': 10.11PV maxP.92 mmHgPV Vmax: 0.99 | | m/s [employer] Pe Teacher:Authenticated by: Devan LEE Date/Time: -- | | [id number]:9:34 IMPRESSION: 1. Overall left ventricular systolic function [...] |PV Vmax: 0.99 m/s | | | |[employer] School Pe Teacher: | |Authenticated by: LIZBET LYNN MD | |Report Date/Time: [id number]:9:34 | | | |IMPRESSION: | |1. Overall [...]
--- OUTSIDE RECORDS SUMMARY | ~2020-02-20 | XMS | Encounter Summary ---
Demographics + + + | Address | [address] | | | [place] [address] | + + + | Home Phone | | + + + | Preferred Language | Unknown | + + + | Marital Status | | + + + | Anglican Affiliation | Unknown | + + + | Race | Unknown | + + + | Ethnic Group | Unknown | + + + Author + + + | Author | [facility] | | | and [place] | + + + | Organization | [facility] | | | and [place] | + + + | Address | Unknown | + + + | Phone | Unavailable | + + + Support + + +---------+ + | Name | Relationship | Address | Phone | + + +---------+ + | Champ Enriquezzo | ECON | Unknown | | + + +---------+ + | Milichiqiu Villavicencio | ECON | Unknown | | + + +---------+ + Care Team Providers + +------+ + | Care Electric Relay Tester Name | Role | Phone | + +------+ + PCP | Unavailable | + +------+ + Encounter Details +--------+ + + + + | Date | Type | Department | Care Team | Description | +--------+ + + + + | 09/17/ | Hospital | [facility] | Conversion | | | 2015 | Encounter | [facility] XRAY | Transaction, | | | | | [address] | Provider Unknown | | | | | [place], [place] | | | | | | [address] | (Fax) | | | | | [phone] | | | +--------+ + + + [...] DR | | | | | | [place] [address] | | | | | | [phone] | | | | | | | | +--------+ + + + + | 04/28/ | Procedure | Cardiology | | | | 2019 | visit | | | | +--------+ + + + + documented as of this encounter Visit Diagnoses Not on filedocumented in this encounter"
--- OUTSIDE RECORDS SUMMARY | ~2020-02-20 | XMS | Encounter Summary ---
Demographics + + + | Address | [address] | | | [place] [address] | + + + | Home Phone | | + + + | Preferred Language | Unknown | + + + | Marital Status | | + + + | Protestant Affiliation | Unknown | + + + | Race | Unknown | + + + | Ethnic Group | Unknown | + + + Author + + + | Author | [facility] | | | and [place] | + + + | Organization | [facility] | | | and [place] | + + + | Address | Unknown | + + + | Phone | Unavailable | + + + Support + + +---------+ + | Name | Relationship | Address | Phone | + + +---------+ + | Champ Abraham | ECON | Unknown | | + + +---------+ + | Milichiqui Oquenodw | ECON | Unknown | | + + +---------+ + Care Team Providers + +------+ + | Care Crusher Machine Operator Name | Role | Phone [...] + + | 08/07/ | Telephone | [facility] | Mary Tipton ANP | Patient Concerns | | 2018 | | [facility] [place] | [address] | | | | | [address] | [place], [place] | | | | | [place], [place] | [address] | | | | | [address] | | | | | | [phone] | | | +--------+ + + + [...] Encounter - Mary Tipton ANP - 08/07/2019 3:02 PM PSTLeft VM Patient wanted to discuss amiodarone discontinuation siting concerns of fatigue. Options are limited, amiodarone is best choice. ERNIE Deal documented in this enco unter [...] DR | | | | | | [place] [address] | | | | | | [phone] | | | | | | | | +--------+ + + + + | 04/28/ | Procedure | Cardiology | | | | 2019 | visit | | | | +--------+ + + + + documented as of this encounter Visit Diagnoses Not on filedocumented in this encounter"
--- OUTSIDE RECORDS SUMMARY | ~2020-02-20 | XMS | Encounter Summary ---
Demographics + + + | Address | [address] | | | [place] [address] | + + + | Home Phone [...] Team Providers + +------+ + | Care Estate Administrator Name | Role | Phone | + [...] + + | 07/24/ | Procedure | [facility] | | Non-sustained | | 2019 | visit | [facility] [place] | | ventricular | | | | [address] | | tachycardia (HCC) | | | | [place], [place] | | (Primary Dx); | | | | [address] | | Cardiac | | | | [phone] | | resynchronization | | | | | | therapy | | | | | | defibrillator | | | | | | (MEDICAID COLLECTION SPECIALIST-D) in place; | | | | | [...] REMOTEPre-Procedure Diagnose(s): Cardia c resynchronization therapy defibrillator (MEDICAID COLLECTION SPECIALIST-D) in place; Syncope and collapse; Non-ischem ic [...] data and rhythm strips, please see osmin se/safety technician entry in the notes section and [...] DR | | | | | | [place] [address] | | | | | | [phone] | | | | | | | [...] defibrillator | | | | | | (MEDICAID COLLECTION SPECIALIST-D) in place | | | | | [...] + + | Cardiac resynchronization therapy defibrillator (MEDICAID COLLECTION SPECIALIST-D) in place | + + | Syncope and collapse | + + | Non-ischemic cardiomyopathy (HCC) Other primary cardiomyopathies | + + documented in this encounter"
--- OUTSIDE RECORDS SUMMARY | ~2020-02-20 | XMS | Encounter Summary ---
Demographics + + + | Address | [address] | | | [place] [address] | + + + | Home Phone [...] Team Providers + +------+ + | Care V Belt Finisher Name | Role | Phone | [...] [facility]) | | | | [place], | | | | | | [place] [address] | | | | | | [phone] | | | +--------+ + + + [...] DR | | | | | | [place] [address] | | | | | | [phone] | | | | | | | [...]
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
--- OUTSIDE RECORDS SUMMARY | ~2020-02-20 | XMS | Clinical Summary ---
Demographics + + + | Address | [address] | | | [place] [address] | + + + | Home Phone [...] Team Providers + +------+ + | Care Director Of Exhibit Development Name | Role | Phone | + [...] automatically from request for surgery | | [id number] | + + + + + | [...] Danis's with consult form stroke team at [facility]. 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 Chiang in January | | 2009.Generator change by Dr. Delarosa in 2014 viva xt PERINATAL INSTRUCTOR D MDT | | number [id number].Patient has a 5076 atrial lead Medtronic. 6947 [...] time of his | | hospitalization at [facility]. | + + + + + | [...] | | testing. Request echo results from [facility]. Will discuss | | next steps with [...] [address] | | | | | | [place] [address] | | | | | | [phone] | | | | | | | [...] | + +--------+------+ +--------+--------+--------+ | Implant Id: [id number] - | Cardia | | MEDTRONIC - | | | | | Software Project Engineer-D-05/17/2015Implanted: | c | | MEDT | | | /[id number] | | 05/17/2015 by Uvaldo Delarosa | Angela | | | | | [id number] | | PhD (Quantity not on | | | | | | / | | file) | Manage | | | | | | | | ment | | | | | | + +--------+------+ +--------+--------+--------+ | Implant Id: [id number] - Endurant | Endogr | | MEDTRONIC - | | | | | EndograftImplanted: | aft | | MEDT | | | /[id number] | | 09/23/2014 by Vincent Fields, | | | | | | [id number] / | | MD (Quantity not on file) | | | | | | | + +--------+------+ +--------+--------+--------+ | Implant Id: [id number] - Endurant | Endogr | | MEDTRONIC - | | | | | EndograftImplanted: | aft | | MEDT | | | /[id number] | | 09/23/2014 by Vincent Fields, | | | | | | [id number] / | | MD (Quantity not on file) | | | | | | | + +--------+------+ +--------+--------+--------+ | Implant Id: [id number] - Endurant | Endogr | | | [...] +--------+ +---------+--------+ | MEDICARE | MEDICA | [id number] | 10/19/19 | [phone] | | Medica | | | RE | | 13-Pre | 5 | | re | | | PART A | | sent | | | | | | AND B | | | | | | + +--------+ +--------+ +---------+--------+ | MEDICARE | MEDICA | [id number] | 05/31/ | [phone] | | Medica | | | RE | | 2019-P | 5 | | re | | | PART A | | resent | | | | | | AND B | | | | | | + +--------+ +--------+ +---------+--------+ | [employer] | TRANSA | [id number] | 10/19/19 | | | Indemn | | INSURANCE | MERICA | | 15-Pre | | | ity | | | LIFE | | sent | | | | | | MS | | | | | | + +--------+ +--------+ +---------+--------+ | [employer] | TRANSA | [id number] | 10/19/19 | | | Indemn | [...] chas | | | 6 (Home) | [address] | + +--------+ +--------+ + + | Jared Abraham | Person | Self | [birth year] | [address] | | [place] | al/Fam | | 1945 | [phone] | [place], [place] | | | chas | | | 6 (Home) | [address] | + +--------+ +--------+ + + Advance Directives + + + + + | Type | Date Recorded | Patient | Explanation | | | | Senior Logistics Manager | | + + + + + | Power of | | | | | Supervisor Transcribing Operators | | | | + + + + + | Advance | 09/17/2019 8:31 | | | | Directive | AM | | | + + + + +
--- OUTSIDE RECORDS SUMMARY | ~2020-02-20 | XMS | Encounter Summary ---
Demographics + + + | Address | [address] | | | [place] [address] | + + + | Home Phone | | + + + | Preferred Language | Unknown | + + + | Marital Status | | + + + | Jain Affiliation | Unknown | + + + | Race | Unknown | + + + | Ethnic Group | Unknown | + + + Author + + + | Author | [facility] | | | and [place] | + + + | Organization | [facility] | | | [...] Providers + +------+ + | Care Boot And Shoe Repairman Name | Role | Phone | + +------+ + | Carla Murphy | PCP | | | PA-C | | | + +------+ + Reason for Visit + + + | Reason | Comments | + + + | Device Check | | | (Remote) | | + + + Encounter Details +--------+ + + + + | Date | Type | Department | Care Team | Description | +--------+ + + + + | 11/04/ | Procedure | [facility] | | Cardiac | | 2019 | visit | CARDIOLOGY [place] | | resynchronization | | | | [address] | | therapy | | | | [place], [place] | | defibrillator | | | | [address] | | (BRANCH MECHANIC-D) in place | | | | [phone] | | (Primary Dx) | +--------+ + [...] documented as of this encounter Procedure Notes Antonio Burden RN - 11/05/2019 8:00 AM PDTAssociated Order(s): DEVICE INTERROGATION- REM OTEProcedure(s): DEVICE INTERROGATION- REMOTEPre-Procedure Diagnose(s): Cardiac resynchroniz ation therapy defibrillator (BRANCH MECHANIC-D) in place ICD REMOTE INTERROGATION REPORT Name: Jared Abraham PCP: Carla Murphy PA-C : 1945 Primary cardiology provider: Poppy Rodriguez Primary electrophysiology provider: Mary Tipton Device carburetor rebuilder: Medtronic Device type: Biventricular Battery Longevity: 3.5 years RA Pacin.6% RV Pacin.1% BiV Pacin.2% INTERROGATION RESULTS: Please see the full interrogation report attached Known history of atrial flutter or atrial fibrillation: No Current antithrombotic therapy including: clopidogrel Since last in-office on 07/30/19: Mode switches: None. VT/VF Detections: None. Lead function: Lead impedance and threshold value trends have been reviewed and are accepta ble based on most recent evaluation. CHF: Congestive heart failure parameters and trends have been reviewed and are stable Follow up: The next scheduled interrogation will be in 3 months in the cardiac device clini c. Additional comments: None. IMPRESSION: 1. Normal ICD function. 2. No atrial fibrillation/flutter noted. 3. No VT/VF therapies have been given since the last interrogation. Testing reviewed by: Antonio Burden RN Associated attestation - Mary Tipton ANP - 11/10/2019 3:24 PM PDTDevice follow up Device data was personally reviewed by me. Device function is nominal. There is adequate remaining battery life. For additional details regarding device information, data and rhythm strips, please see osmin se/monitor technician entry in the notes section and device download information in scanned document sERNIE Coleman 11/10/2019 documented in this encounter Plan of Treatment [...] | | | | | | [place] [address] | | | | | | [phone] | | | | | | | [...] + + | DEVICE | Routin | 11/05/2019 | Cardiac | Results for this | | INTERROGATION- | e | 8:00 AM | resynchronization | procedure are in the | | REMOTE | | PDT | therapy | results section. | | | | | defibrillator | | | | | | (BRANCH MECHANIC-D) in place | | + +--------+ + + + | DEVICE | Routin | 11/05/2019 | Cardiac | Results for this | | INTERROGATION- | e | 8:00 AM | resynchronization | procedure are in the | | REMOTE | | PDT | therapy | results section. | | | | | defibrillator | | | | | | (BRANCH MECHANIC-D) in place | | + +--------+ + + + | DEVICE | Routin | 11/05/2019 | Cardiac | Results for this | | INTERROGATION- | e | 8:00 AM | resynchronization | procedure are in the | | REMOTE | | PDT | therapy | results section. | | | | | defibrillator | | | | | | (BRANCH MECHANIC-D) in place | | + +--------+ + + + documented in this encounter Results Device Interrogation - Remote (11/05/2019 8:00 AM PDT) + + + | Narrative | Performed At | + + + | Antonio Vu | [facility] | | KEEGAN Burden 11/10/2019 12:01 PMICD REMOTE INTERROGATION REPORT | | | Name: Jaerd Abraham PCP: Carla Murphy PA-C : | | | 1945MRN: [id number] Primary cardiology provider: Poppy Beltran | | | [place] Primary electrophysiology provider: Mary Tipton Device | | | carburetor rebuilder: Medtronic Device type: Biventricular Battery Longevity: | | | 3.5 years RA Pacin.6% RV Pacin.1%BiV Pacin.2% | | | INTERROGATION RESULTS:Please see the full interrogation report | | | attached Known history of atrial flutter or atrial fibrillation: | | | NoCurrent antithrombotic therapy including: clopidogrel Since last | | | in-office on 07/30/19:Mode switches: None. VT/VF Detections: None. | | | Lead function: Lead impedance and threshold value trends have been | | | reviewed and are acceptable based on most recent evaluation. CHF: | | | Congestive heart failure parameters and trends have been reviewed and | | | are stable Follow up: The next scheduled interrogation will be in 3 | | | months in the cardiac device clinic. Additional comments: None. | | | IMPRESSION:1. Normal ICD function.2. No atrial fibrillation/flutter | | | noted.3. No VT/VF therapies have been given since the last | | | interrogation. Testing reviewed by: Antonio Burden RN | | |RV Pacin.1% | | |BiV Pacin.2% | | | | | |INTERROGATION RESULTS: | | |Please see the full interrogation report attached | | | | | |Known history of atrial flutter or atrial fibrillation: No | | |Current antithrombotic therapy including: clopidogrel | | | | | |Since last in-office on 07/30/19: | | |Mode switches: None. | | | | | |VT/VF Detections: None. | | | | | |Lead function: [...] |1. Normal ICD function. | | |2. No atrial fibrillation/flutter noted. | | |3. No VT/VF therapies have been given since the last | | |interrogation. | | | | | |Testing reviewed by: Antonio Burden RN | | + + + + +---------+ + + | Performing | Address | City/State/Zipcode | Phone Number | | Organization | | | | + +---------+ + + | [facility] | | | | + +---------+ + + documented in this encounter Visit Diagnoses + + | Diagnosis | + + | Cardiac resynchronization therapy defibrillator (BRANCH MECHANIC-D) in place - Primary | + + documented in this encounter"
--- OUTSIDE RECORDS SUMMARY | ~2020-02-20 | XMS | Encounter Summary ---
Demographics + + + | Address | [address] | | | [place] [address] | + + + | Home Phone [...] Providers + +------+ + | Care Marketing Project Manager Name | Role | Phone | [...] | | | | | | [place] [address] | | | | | | [phone] | | | +--------+ + + + [...] patient. Order sent to [facility] umented in this encounter Plan of Treatment [...] DR | | | | | | [place] [address] | | | | | | [phone] | | | | | | | [...]
--- OUTSIDE RECORDS SUMMARY | ~2020-02-20 | XMS | Encounter Summary ---
Demographics + + + | Address | [address] | | | [place] [address] | + + + | Home Phone [...] Providers + +------+ + | Care Manager Trading Name | Role | Phone | + [...] + + | 08/07/ | Telephone | [facility] | Mary Tipton ANP | Patient Concerns | | 2018 | | CARDIOLOGY [place] | [address] | | | | | [address] | [place], [place] | | | | | [place], [place] | [address] | | | | | [address] | | | | | | [phone] | | | +--------+ + + + [...] DR | | | | | | [place] [address] | | | | | | [phone] | | | | | | | | +--------+ + + + + | 04/28/ | Procedure | Cardiology | | | | 2019 | visit | | | | +--------+ + + + + documented as of this encounter Visit Diagnoses Not on filedocumented in this encounter"
--- OUTSIDE RECORDS SUMMARY | ~2020-02-20 | XMS | Encounter Summary ---
Demographics + + + | Address | [address] | | | [place] [address] | + + + | Home Phone [...] Team Providers + +------+ + | Care Ice Cream Vault Worker Name | Role | Phone | [...] + + | 10/21/ | Refill | [facility] | Nav Foley, | Medication Refill | | 2019 | | CARDIOLOGY [place] | [address] | | | | | [address] | [place] [address] | | | | | [place], [place] | [phone] | | | | | [address] | | | | | | [phone] | | | +--------+--------+ + + + [...] DR | | | | | | [place] [address] | | | | | | [phone] | | | | | | | | +--------+ + + + + | 04/28/ | Procedure | Cardiology | | | | 2019 | visit | | | | +--------+ + + + + documented as of this encounter Visit Diagnoses Not on filedocumented in this encounter"
--- OUTSIDE RECORDS SUMMARY | ~2020-02-20 | XMS | Encounter Summary ---
Demographics + + + | Address | [address] | | | [place] [address] | + + + | Home Phone [...] Team Providers + +------+ + | Care Bag Printer Name | Role | Phone | + [...] W | RN | ([facility]) | | | | [place], | | | | | | [place] [address] | | | | | | [phone] | | | +--------+ + + + [...] DR | | | | | | [place] [address] | | | | | | [phone] | | | | | | | [...]
--- OUTSIDE RECORDS SUMMARY | ~2020-02-20 | XMS | Encounter Summary ---
Demographics + + + | Address | [address] | | | [place] [address] | + + + | Home Phone [...] Team Providers + +------+ + | Care Automobile Detailer Name | Role | Phone | + +------+ + | Carla Murphy | PCP | | | PA-C | | | + +------+ + Reason for Visit + + + | Reason | Comments | + + + | Device Check | Medtronic BLOW OFF WORKER-D remote | | (Remote) | | + + + Encounter Details +--------+ + + + + | Date | Type | Department | Care Team | Description | +--------+ + + + + | 06/02/ | Procedure | [facility] | | Non-ischemic | | 2019 | visit | CARDIOLOGY [place] | | cardiomyopathy (HCC) | | | | [address] | | (Primary Dx); | | | | [place], [place] | | Non-sustained | | | | [address] | | ventricular | | | | [phone] | | tachycardia (HCC); | | | [...] encounter Procedure Notes Germain Shoemaker, Technologist - 06/02/2019 8:55 AM PDTAssociated Order(s): DEVICE INTE RROGATION- REMOTEProcedure(s): DEVICE INTERROGATION- REMOTEPre-Procedure Diagnose(s): Non-is chemic cardiomyopathy (HCC); Non-sustained ventricular tachycardia (HCC); Syncope and collap se ICD REMOTE INTERROGATION REPORT Name: Jared Abraham PCP: Carla Murphy PA-C : 1945 Primary cardiology provider: Poppy Rodriguez Primary electrophysiology provider: Constantin Chavez Device swiss machinist: Medtronic Device type: Biventricular Battery Longevity: 3yrs 11 mo RA Pacin% RV Pacin.0% BiV Pacin.6% INTERROGATION RESULTS: Please see the full interrogation report attached Known history of atrial flutter or atrial fibrillation: No Current antithrombotic therapy including: N/A Mode switches: AT/AF <0.1%. Episodes appear to be farfield oversensing. AT/AF Durations 1 min to 10 min 1 <1 min 118 VT/VF Detections: 3 VT-NS episodes, 1-3 sec din duration, V rates 199-214 bpm. Lead function: Lead impedance and threshold value trends have been reviewed and are accepta ble based on most recent evaluation. CHF: Congestive heart failure parameters and trends have been reviewed and are stable Follow up: The next scheduled interrogation will be in 3 months in the cardiac device clini c. Additional comments: None. IMPRESSION: 1. Normal ICD function. 2. AT/AF episodes noted as above. 3. No VT/VF therapies have been given since the last interrogation. Testing reviewed by: housing property managerRossy Shoemaker Associated attestation - Constantin Chavez MD - 07/02/2019 12:46 PM PSTI agree with the abo ve interpretation except 2 of the 3 episodes of nonsustained VT appeared to be related to ra pid atrial arrhythmia very good ventricular conduction at up to 200 bpm or more. Scott MDdocumented in this encounter Plan of Treatment +--------+ [...] DR | | | | | | [place] [address] | | | | | | [phone] | | | | | | | [...] | Germain Boyle | [facility] | | Navid Technologist 06/02/2019 9:10ICD REMOTE INTERROGATION | | | REPORT Name: Jared Abraham PCP: Carla Murphy PA-C | | | : 1945MRN: [id number] Primary cardiology provider: Poppy | | | Ruby Rodriguez Primary electrophysiology provider: Constantin Chavez | | | Device swiss machinist: Medtronic Device type: Biventricular Battery | | [...] | the last interrogation. Testing reviewed by: [facility] Fransisca Shoemaker | | | | | [...] | | | | |Testing reviewed by: [facility] Fransisca Shoemaker | | | | | [...]
--- OUTSIDE RECORDS SUMMARY | ~2020-02-20 | XMS | Encounter Summary ---
Demographics + + + | Address | [address] | | | [place] [address] | + + + | Home Phone [...] Team Providers + +------+ + | Care Stretcher Drier Operator Name | Role | Phone | [...] - [place]) | | | | [place], | | | | | | [place] [address] | | | | | | [phone] | | | +--------+ + + + [...] DR | | | | | | [place] [address] | | | | | | [phone] | | | | | | | [...]
--- OUTSIDE RECORDS SUMMARY | ~2020-02-20 | XMS | Encounter Summary ---
Demographics + + + | Address | [address] | | | [place] [address] | + + + | Home Phone [...] Team Providers + +------+ + | Care Cake Tester Name | Role | Phone | + +------+ + PCP | Unavailable | + +------+ + Encounter Details +--------+ + + + + | Date | Type | Department | Care Team | Description | +--------+ + + + + | 05/11/ | Hospital | [facility] | Conversion | Pain | | 2015 | Encounter | CONVERSION [address] | Transaction, | | | | | [address] | Provider Unknown | | | | | [place], [place] | [phone] | | | | | [address] | | | | | | [phone] | | | +--------+ + + + [...] DR | | | | | | [place] [address] | | | | | | [phone] | | | | | | | [...]
--- OUTSIDE RECORDS SUMMARY | ~2020-02-20 | XMS | Encounter Summary ---
Demographics + + + | Address | [address] | | | [place] [address] | + + + | Home Phone [...] Team Providers + +------+ + | Care C Unix Developer Name | Role | Phone | [...] | | | | | nuclear | FRUIT VENDOR [address] | MD [address] | | | | | stress test | [address] | BLVD | | | | | Cardiac | SATINDER F | [place] | | | | | resynchroniz | [facility] [place] | [address] Phone: | | | | | ation | [phone] | [phone] | | | | | therapy | Phone: | Fax: | | | | | defibrillato | [phone] | [phone] | | | | | r (GIZZARD PEELER-D) in | Fax: | | | | | | place | [phone] | | | | | | Non-ischemic [...] | | | | | | | [place] [facility] | | | | | [...] + + | 09/17/ | Hospital | [facility] | Kimmie Wills | Essential | | 2020 | Encounter | CENTER CV INTRA OP | MD Saravanan [address] | hypertension; | | | | [address] | BLVD [place], [place] | Abnormal nuclear | | | | [place], [place] | [address] | stress test; Cardiac | | | | [address] | | resynchronization | | | | [phone] | | therapy | | | | | | defibrillator | | | | | | (GIZZARD PEELER-D) in place; | | | | | [...] hypertension | +--------+ + + + + Social [...] + + + | Blood Pressure | 120/73 | 09/17/2019 5:00 PM | | | | | PST | | + + + + + | Pulse | 75 | 09/17/2019 5:00 PM | | | [...] + | Oxygen Saturation | 93% | 09/17/2019 5:00 PM | | | [...] - 09/17/2019 5:19 PM PSTAbout 1650 contacted lab animal technician regarding mine kidd feeling better and when could patient go. Instructed to have patient ambulate and see how he did. Patient able to ambulate in the room with what he says he normal feels when he s tands up too quickly. Resolved quickly. Patient able to dress with assist. Called back to [facility] lab and agreeable to have patient go home. Reviewed discharge instructions with patient. Patient discharged with all belongings to [facility]. esús Caballero RN - 09/17/2019 4:12 PM PSTAbout 1545 patient started complaining that he did not feel right, pale. With vital signs stable. No diaphoresis, Denies pain or discomfort. 1600 blood suga r checked 125; less pale, states that he just doesn't feel well. Jesús Huang RN - 09/17/2019 1:58 PM PSTDischarged home; [...] DR | | | | | | [place] [address] | | | | | | [phone] | | | | | | | [...] defibrillator | | | | | | (GIZZARD PEELER-D) in place | | | | | [...] defibrillator | | | | | | (GIZZARD PEELER-D) in place | | | | | [...] Testing | 65 - 99 mg/dL | [facility] | | | POC | performed at [facility];[address] | LABORATORY | | | | [address];[place], [place] | | | | | | [address] | | | | + + + + + + + + | Specimen | + + | | + + + + + + + | Performing | Address | City/State/Zipcode | Phone Number | | Organization | | | | + + + + + | [facility] | [address] | [place] [address] | [phone] | + + + + + CV [...] with left heart | | | cath ([id number]) Procedure Summary Access site: right radial | [...] | 8.8 | 8.5 - 10.5 | [facility] | | | | | mg/dL | LABORATORY | | + + + + + + | Estimated | >60Comment: GFR <60: | >60 | [facility] | | | GFR | CHRONIC KIDNEY [...] [facility];[address] | | | | | | [address] [facility];[place], [place] | | | | | | [address] | | | | + + + + + + + + | Specimen | + + | | + + + + + + + | Performing | Address | City/State/Zipcode | Phone Number | | Organization | | | | + + + + + | [facility] | [address] | [place] [address] | [phone] | + + + + + CBC no Differential (09/17/2019 10:09 AM PST) + + + + + + | Component | Value | Ref Range | Performed | Pathologist | | | | | At | Signature | + + + + + + | WBC | 11.39 (H) | 3.80 - 11.00 | [place] | | | | | K/uL | [...] [facility] | | | | performed at [facility];[address] | | LABORATORY | | | | [address];[place] | | | | | | [address] | | | | + + + + + + + + | Specimen | + + | Blood | + + + + + + + | Performing | Address | City/State/Zipcode | Phone Number | | Organization | | | | + + + + + | [facility] | [address] | [place] [address] | [phone] | + + + + + POC [...] at [facility];[address] | | LABORATORY | | | | [address];[place] | | | | | | [address] | | | | + + + + + + + + | Specimen | + + | | + + + + + + + | Performing | Address | City/State/Zipcode | Phone Number | | Organization | | | | + + + + + | [facility] | [address] | [place] [address] | [phone] | + + + + + documented in this encounter Visit Diagnoses + + | Diagnosis | + + | Essential hypertension Unspecified essential hypertension | + + | Abnormal nuclear stress test Other nonspecific abnormal cardiovascular system | | function study | + + | Cardiac resynchronization therapy defibrillator (GIZZARD PEELER-D) in place | + + | Non-ischemic [...] + + | Cardiac resynchronization therapy defibrillator (GIZZARD PEELER-D) in place | + + | Non-ischemic [...] +-------+------+------+ +---+---+ | | | +---+---+ + +---------+ +---------+-------+---+ | sodium chloride 0.9% (NS) bolus | New Bag | 09/17/19 | 125 mLs | 125 | | | 125 mL 125 mL, Intravenous, | | 20 9:30 | | mL/hr | | | Administer over 1 Hours, [employer] ASSEMBLY OFFICER, | | AM PST | | | | | Starting 09/17/19 at 0838, | | | | | [...] + +---+ | | | + +---+ documented in this encounter
--- OUTSIDE RECORDS SUMMARY | ~2020-02-20 | XMS | Encounter Summary ---
Demographics + + + | Address | [address] | | | [place] [address] | + + + | Home Phone [...] Team Providers + +------+ + | Care Intelligence Research Specialist Name | Role | Phone [...] + + | 08/07/ | Telephone | [facility] | Mary Tipton ANP | Patient Concerns | | 2018 | | [facility] [place] | [address] | | | | | [address] | [place], [place] | | | | | [place], [place] | [address] | | | | | [address] | | | | | | [phone] | | | +--------+ + + + [...] | | | | | [place] [address] | | | | | | [phone] | | | | | | | | +--------+ + + + + | 04/28/ | Procedure | Cardiology | | | | 2019 | visit | | | | +--------+ + + + + documented as of this encounter Visit Diagnoses Not on filedocumented in this encounter
--- OUTSIDE RECORDS SUMMARY | ~2020-02-20 | XMS | Encounter Summary ---
Demographics + + + | Address | [address] | | | [place] [address] | + + + | Home Phone | | + + + | Preferred Language | Unknown | + + + | Marital Status | | + + + | Caodaism Affiliation | Unknown | + + + | Race | Unknown | + + + | Ethnic Group | Unknown | + + + Author + + + | Author | [facility] | | | and [place] | + + + | Organization | [facility] | | [...] Team Providers + +------+ + | Care Die Setter Name | Role | Phone | + +------+ + PCP | Unavailable | + +------+ + Encounter Details +--------+ + + + + | Date | Type | Department | Care Team | Description | +--------+ + + + + | 09/23/ | Hospital | [facility] | Vincent Fields MD | AAA (abdominal | | 2015 - | Encounter | [facility] | [address] | aortic aneurysm) | | | | CARE FLOOR [address] | [place] [address] [place], [place] | (FORMERLY [facility]) | | 09/24/ | | [address] | [address] | | | 2015 | | [place], [place] | [phone] | | | | | [address] | | | | | | [phone] | | | +--------+ + + + [...] Vascular Surgery Author Type: Advanced Registered N ryleee Practitioner Filed: 09/24/14 1537 Date of Service: 09/24/14918 Status: Signed Production Trainer: MORRO Arboleda (Advanced Registered Nurse Practitioner) [facility]: Vascular Surgery Discharge Summary Date of Admission: 09/23/2014 Date of Discharge: 09/24/2014 Discharge Provider: MORRO Arboleda Treatment Team: Admitting Provider: Vincetn Fields MD Discharge Diagnoses: Active Problems: AAA [...] 123.9 kg (273 lb 2.4 oz) (09/24 045 6) BMI (Calculated): [37.4] 37.4 (09/23 1122) [...] No discharge procedures on file. 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 You may get the following medications [...] Mirna Donato RN at 09/24/14 1517 Author: Minra Donato RN Service: (none) Author Type: Registered Nurse Filed: 09/24/14 1518 Date of Service: 09/24/14 1517 Status: Signed Production Trainer: Mirna Donato RN (Registered Nurse) Pt and family received dc instruct verbal and written. They stated understanding. onver chetna Transaction, Provider Unknown - 09/24/2014 10:48 AM PST Therapy Progress Note by Waldemar Floyd PT at 09/24/14 1048 Author: Waldemar Floyd PT Service: (none) Author Type: Physical Therapist Filed: 09/24/14 1146 Date of Service: 09/24/14 1048 Status: Signed Production Trainer: Waldemar Floyd PT (Physical Therapist) 09/24/14 1048 PT Last Visit PT Received On 09/24/14 Reason for Treatment Other (comment) (AAA repair) Requires PT Follow Up No Follow up PT Only? No PT Eval/Reassessment Date 09/24/14 Assistance Required 1 person Mingler Operator Needed No Home Environment Type of [...] was employed until recentl y at the [employer] in [place]. States that he has friends and neighbors that can assist if he would need it. Prior Function Level of [place] Independent with functional mobility;Independent with ADLs;Independe nt [...] Eval/Reassessment Date 09/24/14 Assistance Required 1 person Mingler Operator Needed No Other Comments Comments Chart [...] without report of fatigue Nurse Made Aware KEEGAN Mirna Safety Devices Safety Devices in Place [...] likely able to D C home safely. onver chetna Transaction, Provider Unknown - 09/23/2014 7:09 PM PST Progress Notes by Yoon Michele RN at 09/23/141908 Author: Yoon Michele RN Service: (none) Author Type: Registered Nurse Filed: 09/23/141913 Date of Service: 09/23/141908 Status: Signed Production Trainer: Yoon Michele RN (Registered Nurse) Pt still [...] 09/23/141710 Date of Service: 09/23/141710 Status: Signed Production Trainer: Louise Herrera RPH (Pharmacist) Clinical Pharmacy Note: Renal Monitoring Jared Hooks Jarad 69 y.o. male Ht Readings from Last [...] (none) Author Type: Registered Nurse Filed: 09/23/14 1519 Date of Service: 09/23/141699 Status: Signed Production Trainer: Yoon Michele RN (Registered Nurse) Upon arrival to floor, pt was A&O, on 2L 02. Pt complaining of abdominal pain 4/. Pt stat es this pain not radiating [...] (none) Author Type: Registered Nurse Filed: 09/23/14 7348 Date of Service: 09/23/141699 Status: Signed Production Trainer: Juana Hayes Pt transferred to Cardiac Unit and bedside report given to Sabra ALLISON. In PACU repeat ACT was completed by Training Analyst RN prior to transport:. Current result 110. [...] present. Groin sites again checked with Sabra ALLISON and they are unchan ged. SBP low [...] Hayes RN docume nted in this encounter H&P Notes Ingrid Morris ARNP - 09/23/2014 8:11 AM PSTFormatting of this note might be different f rom the original. H&P by MORRO Arboleda at 09/23/14810 Author: MORRO Arboleda Service: Vascular Surgery Author Type: Advanced Registered N urse Practitioner Filed: 09/23/14810 Date of Service: 09/23/14810 Status: Signed Production Trainer: MORRO Arboleda (Advanced Registered Nurse Practitioner) [facility]: Vascular Surgery Pre-Operative History & Physical DIAGNOSIS: AAA INDICATION: SAME PROCEDURE: Endovascular abdominal aortic aneurysm repair CHIEF COMPLAINT: AAA History Obtained From: patient HISTORY OF PRESENT ILLNESS Mr. Abraham is a pleasant 69 y.o. male with PMH of COPD who is referred to me for an AAA . Patient had received a CTA abdomen pelvis on 09/16/2014 which showed an aneurysm measuring 6.8 cm. We have discussed endovascular repair with stent graft and patient would like to pr oceed. REVIEW OF SYSTEMS Review of Systems Comprehensive ROS performed and pertinent items described in the HPI. Past Medical History Diagnosis Date Enlarged heart [...] Percodan [Oxycodone-Aspirin] Other (See Comments) Heart Stops No current facility-administered medications on file prior to encounter. Current Outpatient Prescriptions on File Prior to Encounter Medication Sig Dispense Refill aspirin 81 MG EC tablet Take 81 mg by mouth daily. lisinopril (ZESTRIL) 5 MG tablet Take 1 tablet by mouth daily. 90 tablet 2 metoprolol (TOPROL-XL) 25 MG 24 hr tablet Take 12.5 mg by mouth daily. spironolactone (ALDACTONE) 25 MG tablet Take 1 tablet by mouth daily. 90 tablet 2 No family history on file. History Social History Marital Status: Spouse Name: N/A Number of Children: N/A Years of Education: N/A Occupational History Not on file. Social History Main Topics Smoking status: Never Smoker Smokeless tobacco: Never Used Comment: has second hand smoke exposure Alcohol Use: No Drug Use: No Sexual Activity: Not on file Other Topics Concern Not on file Social History Narrative PHYSICAL EXAM Vital Signs: There were no vitals taken for this visit. Physical Exam Vitals reviewed. Constitutional: Patient appears [...] warm and dry. Vascular: Palp femoral pulses bilat DATA CBC: Lab Results Component Value Date WBC 14.6* 09/17/2014 RBC 5.03 09/17/2014 HGB 15.5 09/17/2014 HCT 45.4 09/17/2014 MCV 90.1 09/17/2014 MCH 30.8 09/17/2014 MCHC 34.2 09/17/2014 RDW 43.3 09/17/2014 PLT 227 09/17/2014 MPV 8.6 09/17/2014 DIFFTYPE MANUAL 09/17/2014 BMP: Lab Results Component Value Date NA 134* 09/17/2014 K 4.2 09/17/2014 CL 98* 09/17/2014 CO2 31 09/17/2014 ANIONGAP 9 09/17/2014 GLUF 115* 09/17/2014 BUN 16 09/17/2014 CREATININE 0.98 09/17/2014 BCR 16 09/17/2014 CA 9.9 09/17/2014 EGFR >60 09/17/2014 PT/INR: Lab Results Component Value Date INR 1.1 09/17/2014 PTT: Lab Results Component Value Date APTT 25 09/17/2014 [APTT} PROBLEM LIST There is no problem list on file for this patient. ASSESSMENT & PLAN 1. Patient is a 69 y.o. male with above specified procedure planned. 2. Procedure options, risks, benefits and alternatives reviewed with patient who express( es) understanding. Any and all questions were answered to their satisfaction. Primary Care Physician: MORRO Desai 09/20/2014 *CORE MEASURES REMINDER: If the patient has a known or suspected infection prior to surger y, please add diagnosis to the problem list (consider: Infection 136.9). documented in this encounter Miscellaneous Notes Op Note - Vincent Fields MD - 09/23/2014 2:22 PM PSTFormatting of this note might be differen t from the original. Brief Op Note by Vincent Fields MD at 09/23/14 1422 Author: Vincent Fields MD Service: Vascular Surgery Author Type: Physician Filed: 09/23/14 142 Date of Service: 09/23/141421 Status: Signed Production Trainer: Vincent Fields MD (Physician) [facility]: Vascular Surgery Brief Op Note Pre-operative Diagnosis: 6.8 cm infrarenal abdominal aortic aneurysm Post-operative Diagnosis: Same Procedure(s): Ultrasound guided access of bilateral common femoral arteries Endovascular aneurysm repair using bifurcated graft with two docking limbs Percutaneous closure of bilateral common femoral arteries using Perclose device Surgeon: Vincent Fields MD Contact Lens Curve Grinder(s): MORRO Arboleda Anesthesia: General endotrachial anesthesia Estimated Blood Loss: Less Than 100 ml Other: IV Fluids: 1500 ml Contrast - 85 ml of isoview 250 Indications: See pre-operative history and physical. Findings: Large infrarenal abdominal aortic aneurysm. Aneurysm excluded using [id number] m m main body, 80s20n191 mm ipsilateral extension, and 34s16t599 mm contralateral limb. After repair, no endoleak was seen. Good filling of bilateral renal arteries and hypogastric art eries. Dopplerable pedal signals at end of case. Complications: None apparent Condition: Stable See dictated operative report for full details. Vincent Fields MD 09/23/2014 documented in this encoun ter Plan of Treatment +--------+ + + + [...] DR | | | | | | [place] [address] | | | | | | [phone] | | | | | | | [...] | | | | | [place] [address] | | | | + + + + + + | Red Blood | 4.36Comment: Testing | 4.20 - 5.70 | EXTERNAL | | | Cells | performed at [facility], [address] | M/uL | LAB | | | Counted | [address], | | | | | | [place] [address] | | | | + + + + + + | Hemoglobin | 13.4Comment: Testing | 13.2 - 17.0 | EXTERNAL | | | | performed at [facility], [address] | g/dL | LAB | | | | [address], | | | | | | [place] [address] | | | | + + + + + + | Hematocrit, | 39.7Comment: Testing | 39.0 - 50.0 % | EXTERNAL | | | POC | performed at [facility], [address] | | LAB | | | | [address], | | | | | | [place] [address] | | | | + + + + + + | MCV | 91.0Comment: Testing | 80.0 - 100.0 fl | EXTERNAL | | | | performed at [facility], [address] | | LAB | | | | [address], | | | | | | [place] [address] | | | | + + + + + + | MCH | 30.8Comment: Testing | 27.0 - 34.0 pg | EXTERNAL | | | | performed at [facility], [address] | | LAB | | | | [address], | | | | | | [place] [address] | | | | + + + + + + | MCHC | 33.9Comment: Testing | 32.0 - 35.5 | EXTERNAL | | | | performed at [facility], [address] | g/dL | LAB | | | | [address], | | | | | | [place] [address] | | | | + + + + + + | RDW-CV | 44.6Comment: Testing | 37 - 53 fl | EXTERNAL | | | | performed at [facility], [address] | | LAB | | | | [address], | | | | | | [place] [address] | | | | + + + + + + | Platelet | 227Comment: Testing | 150 - 400 K/uL | EXTERNAL | | | Count | performed at [facility], [address] | | LAB | | | Plasma | [address], | | | | | | [place] [address] | | | | + + + + + + | MPV | 8.8Comment: Testing | fl | EXTERNAL | | | | performed at [facility], [address] | | LAB | | | | [address], | | | | | | [place], [place] [address] | | | | + + + + + + | Differentia | MANUALComment: Testing | | EXTERNAL | | | l Type | performed at [facility], [address] | | LAB | | | | [address], | | | | | | [place], [place] [address] | | | | + + + + + + | Segmented | 80Comment: Testing | % | EXTERNAL | | | Neutrophils | performed at [facility], [address] | | LAB | | | Manual | [address], | | | | | | [place] [address] | | | | + + + + + + | % Bands | 12Comment: Testing | % | EXTERNAL | | | | performed at [facility], [address] | | LAB | | | | [address], | | | | | | [place] [address] | | | | + + + + + + | Lymphocytes | 6Comment: Testing | % | EXTERNAL | | | Manual | performed at [facility], [address] | | LAB | | | | [address], | | | | | | [place] [address] | | | | + + + + + + | Monocytes | 2Comment: Testing | % | EXTERNAL | | | Manual | performed at [facility], [address] | | LAB | | | | [address], | | | | | | [place] [address] | | | | + + + + + + | Absolute | 18.9 (H)Comment: Testing | 1.9 - 7.4 K/uL | EXTERNAL | | | Neutrophils | performed at [facility], [address] | | LAB | | | | [address], | | | | | | [place] [address] | | | | + + + + + + | Bands | 2.8 (H)Comment: Testing | 0 - 0.2 K/uL | EXTERNAL | | | Manual | performed at [facility], [address] | | LAB | | | | [address], | | | | | | [place] [address] | | | | + + + + + + | Absolute | 1.4Comment: Testing | 1.0 - 3.9 K/uL | EXTERNAL | | | Lymphocytes | performed at [facility], [address] | | LAB | | | | [address], | | | | | | [place] [address] | | | | + + + + + + | Absolute | 0.5Comment: Testing | 0 - 0.8 K/uL | EXTERNAL | | | Monocytes | performed at [facility], [address] | | LAB | | | | [address], | | | | | | [place] [address] | | | | + + + + + + | RBC | RBC AND PLT MORPHOLOGY | | EXTERNAL | | | Morphology | APPEAR NORMALComment: | | LAB | | | | Testing performed at | | | | | | [facility], [address] | | | | | | [place] | | | | | | [address] | | | | + + + [...] | | | | | [place] [address] | | | | + + + + + + | K | 4.2Comment: Testing | 3.5 - 4.9 | EXTERNAL | | | | performed at [facility], [address] | mmol/L | LAB | | | | [address], | | | | | | [place] [address] | | | | + + + + + + | Cl | 101Comment: Testing | 99 - 109 mmol/L | EXTERNAL | | | | performed at [facility], [address] | | LAB | | | | [address], | | | | | | [place] [address] | | | | + + + + + + | CO2 | 28Comment: Testing | 23 - 32 mmol/L | EXTERNAL | | | | performed at [facility], [address] | | LAB | | | | [address], | | | | | | [place] [address] | | | | + + + + + + | Anion Gap | 8Comment: Testing | 5 - 20 mmol/L | EXTERNAL | | | | performed at [facility], [address] | | LAB | | | | [address], | | | | | | [place] [address] | | | | + + + + + + | Glucose, | 183 (H)Comment: Testing | 65 - 99 mg/dL | EXTERNAL | | | Fasting | performed at [facility], [address] | | LAB | | | | [address], | | | | | | [place] [address] | | | | + + + + + + | BUN | 12Comment: Testing | 8 - 25 mg/dL | EXTERNAL | | | | performed at [facility], [address] | | LAB | | | | [address], | | | | | | [place] [address] | | | | + + + + + + | Creatinine | 0.81Comment: Testing | 0.70 - 1.30 | EXTERNAL | | | | performed at [facility], [address] | mg/dL | LAB | | | | [address], | | | | | | [place] [address] | | | | + + + + + + | BUN/Creatin | 15Comment: Testing | | EXTERNAL | | | ine Ratio | performed at [facility], [address] | | LAB | | | | [address], | | | | | | [place] [address] | | | | + + + + + + | Calcium | 8.3 (L)Comment: NOTE NEW | 8.5 - 10.5 | EXTERNAL | | | | REFERENCE RANGETesting | mg/dL | LAB | | | | performed at [facility], [address] | | | | | | [facility], | | | | | | [place] [address] | | | | + + + [...] | | | | | | at [facility], [address] | | | | | | [facility], | | | | | | [place] [address] | | | | + + + [...] | | | Clotting | performed at [facility];888 | seconds | LAB | | | time, POC | [address];[place] | | | | | | [address] | | | | + + + [...] SURGEON: | | | Vincent Fields MD CAR MANAGER: MORRO Arboleda ANESTHESIA: General | | | [...] | properly identified and brought to the Training Analyst. The patient was | | | placed supine on the Training Analyst table and the patient underwent general | [...] | | was upsized to a 7 Portuguese sheath. Next, a perclose device was deployed | | | at the 10:00 and 2:00 position in the right common femoral artery. | | | The 7 Portuguese sheath was then reinserted over the wire. A pigtail | | | catheter was then placed through the right sheath into the mid aorta. | | | Next, a micropuncture needle was used to access the left common | | | femoral artery. A micropuncture sheath was then inserted over wire and | | | this was upsized to a 7 Portuguese sheath. Again, a perclose device was | | | deployed at the 10:00 and 2:00 position in the left common femoral | | | artery. An Amplatz wire was then placed to the left 7 Portuguese sheath | | | with the tip of the wire in the aortic arch. Once the wire was in | | | place, the 7-Portuguese sheath was removed from the left common [...] | | placed into the right 7 qatari sheath with the tip at the aortic arch. | | | The 7 qatari sheath was then removed and upsized to a 16 qatari | | | sheath. Next, a right [...] device was then removed and a 16 qatari sheath was | | | inserted over the wire. A left iliac arteriogram was then performed | | | through the 16 Portuguese sheath and the location of the left [...] the Perclose device SURGEON: Vincent Fields MD CAR MANAGER: Ingrid | | MORRO Morris ANESTHESIA: General [...] identified and | | brought to the Training Analyst. The patient was placed supine on the Training Analyst table and the | | patient underwent general endotracheal anesthesia. The patient's abdomen and bilateral | | groins were then prepped and draped in the usual sterile fashion. First, a micropuncture | | needle was used to access the right common femoral artery. A micropuncture sheath was | | then inserted over wire and this was upsized to a 7 Portuguese sheath. Next, a perclose | | device was deployed at the 10:00 and 2:00 position in the right common femoral artery. | | The 7 Portuguese sheath was then reinserted over the wire. A pigtail catheter was then | | placed through the right sheath into the mid aorta. Next, a micropuncture needle was | | used to access the left common femoral artery. A micropuncture sheath was then inserted | | over wire and this was upsized to a 7 Portuguese sheath. Again, a perclose device was | | deployed at the 10:00 and 2:00 position in the left common femoral artery. An Amplatz | | wire was then placed to the left 7 Portuguese sheath with the tip of the wire in the aortic | | arch. Once the wire was in place, the 7-Portuguese sheath was removed from the left common [...] placed into the right 7 | | qatari sheath with the tip at the aortic arch. The 7 qatari sheath was then removed and | | upsized to a 16 qatari sheath. Next, a right iliac artery arteriogram [...] device was then removed and a 16 qatari sheath was inserted over the wire. A | | left iliac arteriogram was then performed through the 16 Portuguese sheath and the location | | of [...] SURGEON: | | | Vincent Fields MD CAR MANAGER: MORRO Arboleda ANESTHESIA: General | | | [...] | properly identified and brought to the Training Analyst. The patient was | | | placed supine on the Training Analyst table and the patient underwent general | [...] | | was upsized to a 7 Portuguese sheath. Next, a perclose device was deployed | | | at the 10:00 and 2:00 position in the right common femoral artery. | | | The 7 Portuguese sheath was then reinserted over the wire. A pigtail | | | catheter was then placed through the right sheath into the mid aorta. | | | Next, a micropuncture needle was used to access the left common | | | femoral artery. A micropuncture sheath was then inserted over wire and | | | this was upsized to a 7 Portuguese sheath. Again, a perclose device was | | | deployed at the 10:00 and 2:00 position in the left common femoral | | | artery. An Amplatz wire was then placed to the left 7 Portuguese sheath | | | with the tip of the wire in the aortic arch. Once the wire was in | | | place, the 7-Portuguese sheath was removed from the left common [...] | | placed into the right 7 qatari sheath with the tip at the aortic arch. | | | The 7 qatari sheath was then removed and upsized to a 16 qatari | | | sheath. Next, a right [...] device was then removed and a 16 qatari sheath was | | | inserted over the wire. A left iliac arteriogram was then performed | | | through the 16 Portuguese sheath and the location of the left [...] the Perclose device SURGEON: Vincent Fields MD CAR MANAGER: Ingrid | | MORRO Morris ANESTHESIA: General [...] identified and | | brought to the Training Analyst. The patient was placed supine on the Training Analyst table and the | | patient underwent general endotracheal anesthesia. The patient's abdomen and bilateral | | groins were then prepped and draped in the usual sterile fashion. First, a micropuncture | | needle was used to access the right common femoral artery. A micropuncture sheath was | | then inserted over wire and this was upsized to a 7 Portuguese sheath. Next, a perclose | | device was deployed at the 10:00 and 2:00 position in the right common femoral artery. | | The 7 Portuguese sheath was then reinserted over the wire. A pigtail catheter was then | | placed through the right sheath into the mid aorta. Next, a micropuncture needle was | | used to access the left common femoral artery. A micropuncture sheath was then inserted | | over wire and this was upsized to a 7 Portuguese sheath. Again, a perclose device was | | deployed at the 10:00 and 2:00 position in the left common femoral artery. An Amplatz | | wire was then placed to the left 7 Portuguese sheath with the tip of the wire in the aortic | | arch. Once the wire was in place, the 7-Portuguese sheath was removed from the left common [...] placed into the right 7 | | qatari sheath with the tip at the aortic arch. The 7 qatari sheath was then removed and | | upsized to a 16 qatari sheath. Next, a right iliac artery arteriogram [...] device was then removed and a 16 qatari sheath was inserted over the wire. A | | left iliac arteriogram was then performed through the 16 Portuguese sheath and the location | | of [...] | | | Clotting | performed at [facility];[address] | seconds | LAB | | | time, POC | [address];[place] | | | | | | [address] | | | | + + + [...] | | | Clotting | performed at [facility];[address] | seconds | LAB | | | time, POC | [address];[place], [place] | | | | | | [address] | | | | + + + [...] | | | Clotting | performed at [facility];[address] | seconds | LAB | | | time, POC | [address];[place], [place] | | | | | | [address] | | | | + + + [...]
--- OUTSIDE RECORDS SUMMARY | ~2020-02-20 | XMS | Encounter Summary ---
Demographics + + + | Address | [address] | | | [place] [address] | + + + | Home Phone [...] | + + +---------+ + | [facility] | ECON | Unknown | | + + +---------+ + | Mili Villavicencio | ECON | Unknown | | + + +---------+ + Care Team Providers + +------+ + | Care Print Designer Name | Role | Phone | [...] Provider Unknown | | | | | [place], [place] | | | | | | [address] | (Fax) | | | | | [...] [facility] [address] | | | | | | [phone] | | | | | | | [...]
--- OUTSIDE RECORDS SUMMARY | ~2020-02-20 | XMS | Encounter Summary ---
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 He did notice a difference the first day this was done. Per notes "Attem pted MACHINERY RIGGER optimization today; however, any time LV offset was changed, patient became dizzy a nd felt near-syncopal. BP throughout was stable. Ultimately, reverted back to LV offset -40, as this was the only setting he felt well. Even AdaptiveCRT made him profoundly symptomatic . Unfortunately, given these symptoms, patient did not tolerate MACHINERY RIGGER optimization. I did thornton ge him from DDD to DDDR, even though HR histograms showed good distribution of HRs, in hopes that this may give him improved activity tolerance." He is currently on a regimen of Spiriva one capsule inhaled daily. He notes he has run REQQI ss a couple of these that are empty. He contacted the telegraphic typewriter repairer, and he did get 10 capsul es [...] is currently on 3.5 LPM at [facility]. He reports good compliance. He remains [...] Diagnosis Date COPD (chronic obstructive pulmonary disease) ([facility]) Allergic rhinitis seeing Dr. 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 Hobbies: Going to the [employer]. Allergies: Allergies Allergen Reactions Codeine Anaphylaxis Meperidine [...] made to ensure accuracy; however, inadvertent computerized research environmental scientist errors may be pre sent. Electronically signed [...] | | | | | [place] [address] | | | | | | [phone] | | | | | | | [...]
--- OUTSIDE RECORDS SUMMARY | ~2020-02-20 | XMS | Encounter Summary ---
Demographics + + + | Address | [address] | | | [place] [address] | + + + | Home Phone [...] Team Providers + +------+ + | Care Teacher Public Health Name | Role | Phone | + +------+ + PCP | Unavailable | + +------+ + Encounter Details +--------+ + + + + | Date | Type | Department | Care Team | Description | +--------+ + + + + | 09/15/ | Hospital | [facility] IP | Conversion | Pain | | 2015 | Encounter | CONVERSION [address] | Transaction, | | | | | [address] | Provider Unknown | | | | | [place], [place] | [phone] | | | | | [address] | | | | | | [phone] | | | +--------+ + + + [...] DR | | | | | | [place] [address] | | | | | | [phone] | | | | | | | [...]
--- OUTSIDE RECORDS SUMMARY | ~2020-02-20 | XMS | Encounter Summary ---
Demographics + + + | Address | [address] | | | [place] [address] | + + + | Home Phone [...] Team Providers + +------+ + | Care Eight Section Blower Name | Role | Phone | + [...] Chiang MD | | | | | [place], | | | | | | [place] [address] | | | | | | [phone] | | | +--------+ + + + [...] sniff test that he had performed at [facility] on 11/01/15 sam ws no diaphragm paralysis. [...] DR | | | | | | [facility] [address] | | | | | | [phone] | | | | | | | | +--------+ + + + + | 04/28/ | Procedure | Cardiology | | | | 2020 | visit | | | | +--------+ + + + + documented as of this encounter Visit Diagnoses Not on filedocumented in this encounter"
--- OUTSIDE RECORDS SUMMARY | ~2020-02-20 | XMS | Encounter Summary ---
Demographics + + + | Address | [address] | | | [place] [address] | + + + | Home Phone [...] Providers + +------+ + | Care Paint Brush Maker Name | Role | Phone | + +------+ + | Carla Murphy | PCP | | | PA-C | | | + +------+ + Encounter Details +--------+ + + + + | Date | Type | Department | Care Team | Description | +--------+ + + + + | 03/12/ | Orders Only | [facility] | Provider, | Type 2 diabetes | | 2019 | | SYSTEM GENERIC OP | MD [address] | mellitus without | | | | CONVERSION [address] | [address] | complications (HCC); | | | | [address] [place], [place] | [place] [address] | Encounter for | | | | [address] | | therapeutic drug | | | | [phone] | | level monitoring | +--------+ + [...] | | | | | [place] [address] | | | | | | [phone] | | | | | | | [...]
--- OUTSIDE RECORDS SUMMARY | ~2020-02-20 | XMS | Encounter Summary ---
Demographics + + + | Address | [address] | | | [place] [address] | + + + | Home Phone [...] Providers + +------+ + | Care Sales Enablement Specialist Name | Role | Phone | [...] + + | 08/21/ | Telephone | [facility] | Mary Tipton ANP | Testing (schedule | | 2019 | | [facility] | [address] | testing) | | | | [address] | [place], [place] | | | | | [place], [place] | [address] | | | | | [address] | | | | | | [phone] | | | +--------+ + + + [...] | | | | | [place] [address] | | | | | | [phone] | | | | | | | | +--------+ + + + + | 04/28/ | Procedure | Cardiology | | | | 2019 | visit | | | | +--------+ + + + + documented as of this encounter Visit Diagnoses Not on filedocumented in this encounter"
--- OUTSIDE RECORDS SUMMARY | ~2020-02-20 | XMS | Encounter Summary ---
Demographics + + + | Address | [address] | | | [place] [address] | + + + | Home Phone [...] + +------+ + | Care Rug Cleaner Hand Name | Role | Phone | [...] | | | | [place] [address] | [address] | | | | | Test | [place], | [place] | | | | | | [place] [address] | [address] | | | | | | | Phone: | | | | | | | [phone] | | | | | | | Fax: | | | | | | | [phone] | +--------+--------+ + + + + Reason [...] | | pulmonary | PA-C [address] | | | | | disease, | [address] | [place], | | | | | unspecified | Ave | [place] [address] | | | | | (HCC) | [place], | | | | | | Procedures | [place] | | | | | | [place] | [address] | | | | | | CONSULT | Phone: | | | | | | | [phone] | | | | | | | Fax: | | | | | | | [phone] | | +--------+--------+ + + + + Encounter Details +--------+---------+ + + + | Date | Type | Department | Care Team | Description | +--------+---------+ + + + | 10/18/ | Office | [facility] [place] | [place], | Dyspnea on exertion; | | 2015 | Visit | PULMONARY [address] | Sailaaj Chiang MD | Elevated left | | | | [place], | | diaphragm; | | | | [place] [address] | | Panlobular emphysema | | | | [phone] | | ([facility]); Non-ischemic | | | | | | cardiomyopathy | | | | | | ([facility]); MOISÉS | | | | | | [...] see if it works. Schedule this at [facility]. Do an overnight oxygen test through [facility]. Call the [facility] [employer] before yo u pick it up to make sure they have a box available. You will pecan picker a box at the [employer]. Do the test on room air. Wear [...] years ago. He kinsey mbers going to [facility] ER years ago for pneumonia, a COPD [...] mentioned something about being sen [facility]). In the midst [...] at another follow up). He saw the CONSERVATION OR HERITAGE ARCHITECT from cardiology in March 2015, and was [...] was then seen in the ER at [facility] a total of 4 times. In April [...] Diagnosis Date COPD (chronic obstructive pulmonary disease) ([facility]) Allergic rhinitis seeing Dr. 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 Has pets at home: Cat Has ever owned birds: Yes an owl back in the s. Other animal exposures: Rabbits, lots of cats and dogs. Hobbies: Going to the [employer]. Allergies: Allergies Allergen Reactions Codeine Anaphylaxis Meperidine [...] 05, 2008 and results were reviewed in [facility] today. CORONARY ANGIOGRAPHY 1. The left main [...] made to ensure accuracy; however, inadvertent computerized import/export specialist errors may be pre sent. Electronically [...] DR | | | | | | [place] [address] | | | | | | [phone] | | | | | | | [...] air | Care | e | emphysema ([facility]) | 10/19/2015, Expires: | | | | [...]
--- OUTSIDE RECORDS SUMMARY | ~2020-02-20 | XMS | Encounter Summary ---
Demographics + + + | Address | [address] | | | [place] [address] | + + + | Home Phone [...] Providers + +------+ + | Care Furniture Polisher Name | Role | Phone | + [...] | | | | | nuclear | PHARMACY MESSENGER [address] | MD [address] | | | | | stress test | [address] | [address] | | | | | Cardiac | [place] | [place] | | | | | resynchroniz | [facility] [place] | [address] Phone: | | | | | ation | [phone] | [phone] | | | | | therapy | Phone: | Fax: | | | | | defibrillato | [phone] | [phone] | | | | | r (DISBURSING AGENT-D) in | Fax: | | | | | | place | [phone] | | | | | | Non-ischemic [...] | | | | | | | RI CATH PLMT | | | | | [...] + + | 09/17/ | Hospital | [facility] | Kimmie Wills | Essential | | 2020 | Encounter | CENTER CV INTRA OP | MD Saravanan [address] | hypertension; | | | | [address] | BLVD [place], [place] | Abnormal nuclear | | | | [place], [place] | [address] | stress test; Cardiac | | | | [address] | | resynchronization | | | | [phone] | | therapy | | | | | | defibrillator | | | | | | (DISBURSING AGENT-D) in place; | | | | [...] - 09/17/2019 5:19 PM PSTAbout 1650 contacted laborer carpentry dock regarding mine kidd feeling better and when could patient go. Instructed to have patient ambulate and see how he did. Patient able to ambulate in the room with what he says he normal feels when he s tands up too quickly. Resolved quickly. Patient able to dress with assist. Called back to [facility] and agreeable to have patient go home. Reviewed discharge instructions with patient. Patient discharged with all belongings to [facility]. esús Caballero RN - 09/17/2019 4:12 [...] DR | | | | | | [place] [address] | | | | | | [phone] | | | | | | | [...] defibrillator | | | | | | (DISBURSING AGENT-D) in place | | | | | [...] defibrillator | | | | | | (DISBURSING AGENT-D) in place | | | | | [...] Testing | 65 - 99 mg/dL | [facility] | | | POC | performed at [facility];[address] | | LABORATORY | | | | [address];[place], [place] | | | | | | [address] | | | | + + + + + + + + | Specimen | + + | | + + + + + + + | Performing | Address | City/State/Zipcode | Phone Number | | Organization | | | | + + + + + | [facility] | [address] | [place] [address] | [phone] | + + + + + CV [...] with left heart | | | cath ([id number]) Procedure Summary Access site: right radial | [...] | 8.8 | 8.5 - 10.5 | [facility] | | | | | mg/dL | LABORATORY | | + + + + + + | Estimated | >60Comment: GFR <60: | >60 | [facility] | | | GFR | CHRONIC KIDNEY [...] | | | | | performed at [facility];[address] | | | | | | [address] [facility];[place], [place] | | | | | | [address] | | | | + + + + + + + + | Specimen | + + | | + + + + + + + | Performing | Address | City/State/Zipcode | Phone Number | | Organization | | | | + + + + + | [facility] | [address] | [place] [address] | [phone] | + + + + + CBC [...] [facility] | | | | performed at [facility];[address] | | LABORATORY | | | | [address];[place] | | | | | | [address] | | | | + + + + + + + + | Specimen | + + | Blood | + + + + + + + | Performing | Address | City/State/Zipcode | Phone Number | | Organization | | | | + + + + + | [facility] | [address] | [place] [address] | [phone] | + + + + + POC [...] | | | POC | performed at [facility];[address] | | LABORATORY | | | | [address];[place] | | | | | | [address] | | | | + + + + + + + + | Specimen | + + | | + + + + + + + | Performing | Address | City/State/Zipcode | Phone Number | | Organization | | | | + + + + + | [facility] | [address] | [place] [address] | [phone] | + + + + + documented in this encounter Visit Diagnoses + + | Diagnosis | + + | Essential hypertension Unspecified essential hypertension | + + | Abnormal nuclear stress test Other nonspecific abnormal cardiovascular system | | function study | + + | Cardiac resynchronization therapy defibrillator (DISBURSING AGENT-D) in place | + + | Non-ischemic [...] + + | Cardiac resynchronization therapy defibrillator (DISBURSING AGENT-D) in place | + + | Non-ischemic [...] | | | Administer over 1 Hours, OPERATOR RECEPTIONIST, | | AM PST | | | [...]
--- OUTSIDE RECORDS SUMMARY | ~2020-02-20 | XMS | Encounter Summary ---
Demographics + + + | Address | [address] | | | [place] [address] | + + + | Home Phone [...] Team Providers + +------+ + | Care Sqe Name | Role | Phone | + [...] + + | 08/21/ | Telephone | [facility] | Mary Tipton ANP | Testing (schedule | | 2019 | | [facility] | [address] | testing) | | | | [address] | [place], [place] | | | | | [place], [place] | [address] | | | | | [address] | | | | | | [phone] | | | +--------+ + + + [...] | | | | | [place] [address] | | | | | | [phone] | | | | | | | | +--------+ + + + + | 04/28/ | Procedure | Cardiology | | | | 2019 | visit | | | | +--------+ + + + + documented as of this encounter Visit Diagnoses Not on filedocumented in this encounter"
--- OUTSIDE RECORDS SUMMARY | ~2020-02-20 | XMS | Encounter Summary ---
Demographics + + + | Address | [address] | | | [place] [address] | + + + | Home Phone [...] Team Providers + +------+ + | Care Workers Compensation Specialist Name | Role | Phone | [...] + + | 07/24/ | Procedure | [facility] | | Non-sustained | | 2019 | visit | CARDIOLOGY ORIENT | | ventricular | | | | [address] | | tachycardia (HCC) | | | | [place], [place] | | (Primary Dx); | | | | [address] | | Cardiac | | | | [phone] | | resynchronization | | | | | | therapy | | | | | | defibrillator | | | | | | (CEMENT MASON-D) in place; | | | | | [...] REMOTEPre-Procedure Diagnose(s): Cardia c resynchronization therapy defibrillator (CEMENT MASON-D) in place; Syncope and collapse; Non-ischem ic [...] data and rhythm strips, please see osmin se/industrial controls technician entry in the notes section and [...] DR | | | | | | [place] [address] | | | | | | [phone] | | | | | | | [...] defibrillator | | | | | | (CEMENT MASON-D) in place | | | | | [...] + + | Cardiac resynchronization therapy defibrillator (CEMENT MASON-D) in place | + + | Syncope and collapse | + + | Non-ischemic cardiomyopathy (HCC) Other primary cardiomyopathies | + + documented in this encounter"
--- OUTSIDE RECORDS SUMMARY | ~2020-02-20 | XMS | Encounter Summary ---
Demographics + + + | Address | [address] | | | [place] [address] | + + + | Home Phone [...] Team Providers + +------+ + | Care Audio Visual Engineer Name | Role | Phone | + +------+ + | Carla Murphy | PCP | | | PA-C | | | + +------+ + Encounter Details +--------+ + + + + | Date | Type | Department | Care Team | Description | +--------+ + + + + | 03/25/ | Hospital | C GENERIC IP | Conversion | Unknown cause of | | 2016 | Encounter | CONVERSION DEP [address] | Transaction, | injury | | | | [address] | Provider Unknown | | | | | [place], [place] | | | | | | [address] | (Fax) | | | | | [...] DR | | | | | | [facility] [address] | | | | | | [phone] | | | | | | | [...]
--- OUTSIDE RECORDS SUMMARY | ~2020-02-20 | XMS | Encounter Summary ---
Demographics + + + | Address | [address] | | | [place] [address] | + + + | Home Phone [...] Team Providers + +------+ + | Care Glass Cut Off Tender Name | Role | Phone | [...] | | | | | | [place] [address] | | | | | | [phone] | | | +--------+ + + + [...] patient. Order sent to [facility]. [facility] umented in this encounter Plan of Treatment [...] DR | | | | | | [place] [address] | | | | | | [phone] | | | | | | | [...]
--- OUTSIDE RECORDS SUMMARY | ~2020-02-20 | XMS | Encounter Summary ---
Demographics + + + | Address | [address] | | | [place] [address] | + + + | Home Phone [...] Team Providers + +------+ + | Care Surface Plate Inspector Name | Role | Phone | [...] | | stress test | [address] | [place] [facility] | | | | | Procedures | [address] | Med [address] | | | | | [place] Nuclear | [place] [address] | [address] | | | | | Stress Test | [place], [place] | [place], [place] | | | | | (Vasodilator | [address] | [address] | | | | | ) | Phone: | Phone: | | | | | | [phone] | [phone] | | | | | | Fax: | Fax: | | | | | | [phone] | [phone] | +--------+--------+ + + + + Encounter Details +--------+ + + + + | Date | Type | Department | Care Team | Description | +--------+ + + + + | 08/05/ | Orders Only | [facility] | Mary Tipton ANP | Abnormal stress test | | 2019 | | CARDIOLOGY [place] | [address] | (Primary Dx) | | | | [address] | [place], [place] | | | | | [place], [place] | [address] | | | | | [address] | | | | | | [phone] | | | +--------+ + + + [...] DR | | | | | | [place] [address] | | | | | | [phone] | | | | | | | [...]
--- OUTSIDE RECORDS SUMMARY | ~2020-02-20 | XMS | Encounter Summary ---
Demographics + + + | Address | [address] | | | [place] [address] | + + + | Home Phone [...] Team Providers + +------+ + | Care Funeral Service Manager Name | Role | Phone | [...] | | | [address] | [place] [address] | Cardiac | | | | [place] | [phone] | resynchronization | | | | [address] | | therapy | | | | [phone] | | defibrillator | | | | | | (COMBER OPERATOR-D) in place; | | | | [...] drink from Midnight on Either stay in [place] overnight the night before, or start getting [...] artery, [facility] It s normal to find a small [...] Fever over 100.4F (38C) Date Last Reviewed: 01/19/201619999254-7780 [employer]. [address] [place] [address]. [facility]. This information is not [...] of Dr. Foley, who is his primary extracting machine operator,and last seen by him 2018. He has an AICD with COMBER OPERATOR-D for history of ventricular tachycardia, allowed by [...] history of ventricular tachycardia with insertion of COMBER OPERATOR-D in January 2010 and most recent generator [...] from July 23 until July 25 at [facility] for li ghtheadedness and presyncope, with hypotension. He was taken off the bisoprolol for 48 jose rs but then developed significant multiple PVC's, and noted that the paint preparer with heart rate in the 80's when [...] PND. Poor sleep habits: [facility]es [facility] from midn ight-3 AM, usually goes to [...] due to poor activity tolerance. Lives in [place]. , lost his fiancee in 2001 when she in a car crash after being hit by distracted regional [employer] driver on a cell phone Outpatient Medications [...] or wheezing noted, respirations unl abored HEART: COMBER OPERATOR-D site to CHIKA, stable to palpation, well [...] E F 15-20 percent.. Stress test: 08/29/2019 ([facility]): SPECT study showing large fixed apical [...] No intracranial saccular aneurysms are identifie d COMBER OPERATOR-D Implant : MDT COMBER OPERATOR-D by Dr. Martinez. in January 2010., Generator change by Dr. Delarosa in 15 viva xt COMBER OPERATOR D MDT number [id number].Patient has a 5076 atrial lead Medtronic. 6947 Sprin t Quattro Medtronic RV lead and 4195 Starfix Medtronic LV lead. All leads were implanted in January 2010. Last COMBER OPERATOR-D interrogation : 07/30/2019: ( [facility]): Battery longeviity 3.6 yrs. Bi V pace d 99.6%. RA paced 32.9 %. DDR 60-140 Bpm. Events: none but cleared on 07/23/[address] [facility] COMBER OPERATOR-D interrogation: 06/02/2019: Battery longevity( 3 yrs, 11 months ) .FIELD LOGISTICS COORDINATOR 2.73 V RA pac ing 14% , [...] Congestive heart failure parameters and trends stable. COMBER OPERATOR-D interrogation: 09/23/2018: Battery longevity( 3.7-5.9y) 4.8 years/2.97V.FIELD LOGISTICS COORDINATOR 2.73 V R A pacing 30.79 percent, RV pacing 99.04 percent, COMBER OPERATOR pacing 98.92 percent. Lead impedance W NL. [...] terminated episode. No shocks. No aborted charges. COMBER OPERATOR-D interrogation: 09/04/2018: Battery longevity 4.9 years/2.98 V ( FIELD LOGISTICS COORDINATOR 2.73V) . Lead impe ndence WNL. Thresholds [...] gained 3 pounds over a 24-hour period COMBER OPERATOR-D Quick Look: 08/17/2018: ( [facility] admission for syncope) : Longevity [...] lve not well visualized, mild to moderate IN. Echo: 09/25/2017 ([facility]): Technically adequate study. EF 30-35 percent. Mild [...] pericardial effusion. NON CARDIAC TESTING: PFT: 10/19/2015:( [facility]'): Spirometry: Prior to administration of [...] complexes him a PVC's. Rate 72 bpm, IN 112 ms, QRS 150 ms, QTC 494 ms tracing personally reviewed by me EK10/10/2018: Atrially paced rhythm, occasional PVC. Rate 84 bpm, IN 178 ms, QRS 174 ms, QTC 531 ms him a tracing personally reviewed by me, and improved rate and less frequent PVC 's and EKG performed 07/2018 EK01/28/2019: Atrially sensed by V paced rhythm. Rate 77 bpm, IN 162 ms, QRS 184 ms, QTC 506 ms, tracing personally reviewed by me. EKG 07/21/2019:Atrially sensed by V paced rhythm With PVC's, right bundle branch block, old septal infarct. Rate 104 bpm, IN 154 ms, QRS 174 ms, QTC 539 mL, Tracing personally reviewe d by nh EK07/23/2019: ([facility]). Atrially sensed V paced rhythm with frequent PVC's. Rate 87 bpm , IN 166 ms, QRS 178 ms, QTC 555 ms, tracing personally reviewed by nh EK09/01/2019 Atrial sensed V paced rhythm right bundle branch block. Occasional PVC's. Rate 76 bpm, IN 124 ms, QRS 184 ms, QTC 524 [...] creatinine 0.96, GFR 77 Labs: : 05/26/2019: [facility] ER: CBC: WBC 9.5, RBC 4.92, hemoglobin [...] thyroid function His stress test performed at [facility] on August 29 is detailed above and was reported as a high risk study due reduced EF of 18%, though higher on Echo at 40%, and he had a large fixe d inferoapical defect and a small fixed basal lateral defect with mild RV uptake of tracer. His Echo performed July 25 at [facility] is day also detailed above and showed [...] no stenosis or regurgitation mild TR, [facility], with no stenosis to any valves [...] him to either spend the night in [place], or spend a week getting up nicholas [...] cardiomyopathy (HCC) 2. Cardiac resynchronization therapy defibrillator (COMBER OPERATOR-D) in place 3. Non-sustained ventricular tachycardia (HCC) [...] lead Case Request - CV/EP LAB: CV [facility] The following portions of the patient's [...] contain inadvertent rec ognition errors. Chan HOOKER [facility] 09/01/2019 Brandon mullins in this encounter [...] DR | | | | | | [place] [address] | | | | | | [phone] | | | | | | | [...] defibrillator | | | | | | (COMBER OPERATOR-D) in place | | | | [...] | | | | | by [employer] Wray Read Only, | | | | | | [employer] Pam ([id number]), | | | | | | book or script editor Darwin Bob | | | | [...] + + | Cardiac resynchronization therapy defibrillator (COMBER OPERATOR-D) in place | + + | Non-sustained [...]
--- OUTSIDE RECORDS SUMMARY | ~2020-02-20 | XMS | Encounter Summary ---
Demographics + + + | Address | [address] | | | [place] [address] | + + + | Home Phone [...] Providers + +------+ + | Care Enterprise Systems Administrator Name | Role | Phone | + +------+ + | Carla Murphy | PCP | | | PA-C | | | + +------+ + Encounter Details +--------+ + + + + | Date | Type | Department | Care Team | Description | +--------+ + + + + | 09/15/ | Abstract | [facility] [place] | [place], | | | 2015 | | PULMONARY [address] | Sailaja Chiang MD | | | | | [place], | | | | | | [place] [address] | | | | | | [phone] | | | +--------+ + + + [...] [address] | | | | | | [place] [address] | | | | | | [phone] | | | | | | | [...] +--------+ + + + | EXTERNAL LAB: Mariia ASHRAF | Routin | 08/26/2015 | | Results [...] | | Serum | | mmol/L | [facility] | | | | | | MEDICAL [...] + + | [address] | [address] | [place] | [phone] | | [facility] | | [id number] | | | - LABORATORY | | [...] | | | | | | [facility] | | | | | | MEDICAL | | | | | | CENTER - | | | | | | LABORATORY | | + +-------+ + + + | Bun/Creatin | 16.5 | 6.0 - 28.6 | [facility] | | | ine | | | [facility] | | | | | | [facility]ICAL | | | | | | CENTER - | | | | | | LABORATORY | | + +-------+ + + + | Globulin | 2.2 | 1.8 - 3.5 | [facility] | | | | | | [facility] | | | | | | MEDICAL | | | | | | CENTER - | | | | | | LABORATORY | | + +-------+ + + + | Albumin/Jenni | 1.7 | 1.1 - 2.4 | [facility] | | | bulin Ratio | | | [facility] | | | | | | MEDICAL [...] ST. | [address] | [place] | [phone] | | [facility] | | [id number], [facility] | | | - LABORATORY | | [...] | | | QUANTITATIV | | | [facility] | | | E | | | [...] + + | [facility] [facility] | [address] | [place] | [phone] | | [facility] | | [id number] | | | - LABORATORY | | [...] | + +---------+ + + External Lab: JAY (08/13/2015) + +-------+ + + + | Component | Value | Ref Range | Performed | Pathologist | | | | | At | Signature | + +-------+ + + + | JAY, | 15 | 6 - 23 | [...]
--- OUTSIDE RECORDS SUMMARY | ~2020-02-20 | XMS | Encounter Summary ---
Demographics + + + | Address | [address] | | | [place] [address] | + + + | Home Phone [...] Team Providers + +------+ + | Care Desktop Support Manager Name | Role | Phone | [...] + + | 08/25/ | Telephone | [facility] | Mary Tipton ANP | Appointment | | 2019 | | CARDIOLOGY [facility] | [address] | | | | | [address] | [place], [place] | | | | | [place], [place] | [address] | | | | | [address] | | | | | | [phone] | | | +--------+ + + + [...] Miscellaneous Notes Telephone Encounter - Ebony Stein, Civil Engineering Director - 08/25/2019 2:53 PM PSTPatient called in [...] | | | | | [place] [address] | | | | | | [phone] | | | | | | | | +--------+ + + + + | 04/28/ | Procedure | Cardiology | | | | 2019 | visit | | | | +--------+ + + + + documented as of this encounter Visit Diagnoses Not on filedocumented in this encounter"
--- OUTSIDE RECORDS SUMMARY | ~2020-02-20 | XMS | Encounter Summary ---
Demographics + + + | Address | [address] | | | [place] [address] | + + + | Home Phone | | + + + | Preferred Language | Unknown | + + + | Marital Status | | + + + | Taoism Affiliation | Unknown | + + + | Race | Unknown | + + + | Ethnic Group | Unknown | + + + Author + + + | Author | [facility] | | | and [place] | + + + | Organization | [facility] | | | [...] Team Providers + +------+ + | Care Rocket Propellant Plant Supervisor Name | Role | Phone | [...] | pulmonary disease, | | | | [place], | | unspecified COPD | | | | [place] [address] | | type (HCC) (Primary | | | | [phone] | | Dx) | +--------+ + + [...] 2019 | Visit | | MD [address] | | | | | | [place] [address] | | | | | | [phone] | | | | | | | [...] | | Sailaja Nicholson MD 10/24/2015 15:44 [facility] | | | [facility] CC: Carla Juarez PA-C | | + + + documented in this encounter Visit Diagnoses + + | Diagnosis | + + | Chronic obstructive pulmonary disease, unspecified COPD type (HCC) - Primary | + + documented in this encounter"
--- OUTSIDE RECORDS SUMMARY | ~2020-02-20 | XMS | Encounter Summary ---
Demographics + + + | Address | [address] | | | [place] [address] | + + + | Home Phone [...] Providers + +------+ + | Care Recreation Superintendent Name | Role | Phone | + +------+ + PCP | Unavailable | + +------+ + Encounter Details +--------+ + + + + | Date | Type | Department | Care Team | Description | +--------+ + + + + | 09/23/ | Hospital | [facility] | Vincent Fields MD | AAA (abdominal | | 2015 - | Encounter | [facility] | [address] | aortic aneurysm) | | | | CARE FLOOR [address] | [place], [place] | ([facility], [facility]IN [facility]) | | 09/24/ | | [address] | [address] | | | 2015 | | [place], [place] | [phone] | | | | | [address] | | | | | | [phone] | | | +--------+ + + + [...] 1537 Date of Service: 09/24/14918 Status: Signed Orientation And Mobility Instructor: MORRO Arboleda (Advanced Registered Nurse Practitioner) [facility] Service: Vascular Surgery Discharge Summary Date [...] heart COPD (chronic obstructive pulmonary disease) Pacemaker [place] (hard of hearing) Past Surgical History Procedure [...] on file. Follow up: Eloy Diez MD [address] [place] [address] [id number] Vincent Fields MD [address] [facility] [address] In 2 weeks post op appointment and [...] are the prescriptions that you need to mixing picker tender. You may get the following medications from [...] Date of Service: 09/24/14 1517 Status: Signed Orientation And Mobility Instructor: Mirna Donato RN (Registered Nurse) Pt and family received dc instruct verbal and written. They stated understanding. onver chetna Transaction, Provider Unknown - 09/24/2014 10:48 AM PST Therapy Progress Note by Waldemar Floyd PT at 09/24/14 1048 Author: Waldemar Floyd PT Service: (none) Author Type: Physical Therapist Filed: 09/24/14 1146 Date of Service: 09/24/14 1048 Status: Signed Orientation And Mobility Instructor: Waldemar Floyd PT (Physical Therapist) 09/24/14 1048 PT Last Visit PT Received On 09/24/14 Reason for Treatment Other (comment) (AAA repair) Requires PT Follow Up No Follow up PT Only? No PT Eval/Reassessment Date 09/24/14 Assistance Required 1 person Junior Php Developer Needed No Home Environment Type of Home [...] was employed until recentl y at the [employer] in [place]. States that he has friends and neighbors that can assist if he would need it. Prior Function Level of [place] Independent with functional mobility;Independent with ADLs;Independe nt [...] Eval/Reassessment Date 09/24/14 Assistance Required 1 person Junior Php Developer Needed No Other Comments Comments Chart reviewed, [...] 09/23/141913 Date of Service: 09/23/141908 Status: Signed Orientation And Mobility Instructor: Yoon Michele RN (Registered Nurse) Pt still [...] 09/23/141710 Date of Service: 09/23/141710 Status: Signed Orientation And Mobility Instructor: Louise Herrera RPH (Pharmacist) Clinical Pharmacy Note: [...] (none) Author Type: Registered Nurse Filed: 09/23/14 1318 Date of Service: 09/23/141699 Status: Signed Orientation And Mobility Instructor: Yoon Michele RN (Registered Nurse) Upon arrival [...] (none) Author Type: Registered Nurse Filed: 09/23/14 4968 Date of Service: 09/23/141699 Status: Signed Orientation And Mobility Instructor: Juana Hayes Pt transferred to Cardiac Unit and bedside report given to Sabra ALLISON. In PACU repeat ACT was completed by [employer] RN prior to transport:. Current result 110. [...] Unit RN for further assessments, interventions. Juana Hyaes RN docume nted in this encounter H&P Notes Ingrid Morris ARNP - 09/23/2014 8:11 AM PSTFormatting of this note might be different f rom the original. H&P by MORRO Arboleda at 09/23/14810 Author: MORRO Arboleda Service: Vascular Surgery Author Type: Advanced Registered N urse Practitioner Filed: 09/23/14810 Date of Service: 09/23/14810 Status: Signed Orientation And Mobility Instructor: MORRO Arboleda (Advanced Registered Nurse Practitioner) [facility] Service: Vascular Surgery Pre-Operative History & [...] heart COPD (chronic obstructive pulmonary disease) Pacemaker [place] (hard of hearing) Past Surgical History Procedure [...] 142 Date of Service: 09/23/141421 Status: Signed Orientation And Mobility Instructor: Vincent Fields MD (Physician) [facility] Service: Vascular Surgery Brief Op Note Pre-operative Diagnosis: 6.8 cm infrarenal abdominal aortic aneurysm Post-operative Diagnosis: Same Procedure(s): Ultrasound guided access of bilateral common femoral arteries Endovascular aneurysm repair using bifurcated graft with two docking limbs Percutaneous closure of bilateral common femoral arteries using Perclose device Surgeon: Vincent Fields MD Strategic Advisor(s): MORRO Arboleda Anesthesia: General endotrachial anesthesia Estimated Blood Loss: Less Than 100 ml Other: IV Fluids: 1500 ml Contrast - 85 ml of isoview 250 Indications: See pre-operative history and physical. Findings: Large infrarenal abdominal aortic aneurysm. Aneurysm excluded using [id number] m m main body, [id number] mm ipsilateral extension, and [id number] mm contralateral limb. After repair, no endoleak [...] DR | | | | | | [place] [address] | | | | | | [phone] | | | | | | | [...] | | | | | [place] [address] | | | | + + + + + + | Red Blood | 4.36Comment: Testing | 4.20 - 5.70 | EXTERNAL | | | Cells | performed at [facility], [address] | M/uL | LAB | | | Counted | [address], | | | | | | [place] [address] | | | | + + + + + + | Hemoglobin | 13.4Comment: Testing | 13.2 - 17.0 | EXTERNAL | | | | performed at [facility], [address] | g/dL | LAB | | | | [address], | | | | | | [place] [address] | | | | + + + + + + | Hematocrit, | 39.7Comment: Testing | 39.0 - 50.0 % | EXTERNAL | | | POC | performed at [facility], [address] | | LAB | | | | [address], | | | | | | [place] [address] | | | | + + + + + + | MCV | 91.0Comment: Testing | 80.0 - 100.0 fl | EXTERNAL | | | | performed at [facility], [address] | | LAB | | | | [address], | | | | | | [place] [address] | | | | + + + + + + | MCH | 30.8Comment: Testing | 27.0 - 34.0 pg | EXTERNAL | | | | performed at [facility], [address] | | LAB | | | | [address], | | | | | | [place] [address] | | | | + + + + + + | MCHC | 33.9Comment: Testing | 32.0 - 35.5 | EXTERNAL | | | | performed at [facility], [address] | g/dL | LAB | | | | [address], | | | | | | [place] [address] | | | | + + + + + + | RDW-CV | 44.6Comment: Testing | 37 - 53 fl | EXTERNAL | | | | performed at [facility], [address] | | LAB | | | | [address], | | | | | | [place] [address] | | | | + + + + + + | Platelet | 227Comment: Testing | 150 - 400 K/uL | EXTERNAL | | | Count | performed at [facility], [address] | | LAB | | | Plasma | [address], | | | | | | [place] [address] | | | | + + + + + + | MPV | 8.8Comment: Testing | fl | EXTERNAL | | | | performed at [facility], [address] | | LAB | | | | [address], | | | | | | [place], [place] [address] | | | | + + + + + + | Differentia | MANUALComment: Testing | | EXTERNAL | | | l Type | performed at [facility], [address] | | LAB | | | | [address], | | | | | | [place], [place] [address] | | | | + + + + + + | Segmented | 80Comment: Testing | % | EXTERNAL | | | Neutrophils | performed at [facility], [address] | | LAB | | | Manual | [address], | | | | | | [place] [address] | | | | + + + + + + | % Bands | 12Comment: Testing | % | EXTERNAL | | | | performed at [facility], [address] | | LAB | | | | [address], | | | | | | [place] [address] | | | | + + + + + + | Lymphocytes | 6Comment: Testing | % | EXTERNAL | | | Manual | performed at [facility], [address] | | LAB | | | | [address], | | | | | | [place] [address] | | | | + + + + + + | Monocytes | 2Comment: Testing | % | EXTERNAL | | | Manual | performed at [facility], [address] | | LAB | | | | [address], | | | | | | [place] [address] | | | | + + + + + + | Absolute | 18.9 (H)Comment: Testing | 1.9 - 7.4 K/uL | EXTERNAL | | | Neutrophils | performed at [facility], [address] | | LAB | | | | [address], | | | | | | [place] [address] | | | | + + + + + + | Bands | 2.8 (H)Comment: Testing | 0 - 0.2 K/uL | EXTERNAL | | | Manual | performed at [facility], [address] | | LAB | | | | [address], | | | | | | [place] [address] | | | | + + + + + + | Absolute | 1.4Comment: Testing | 1.0 - 3.9 K/uL | EXTERNAL | | | Lymphocytes | performed at [facility], [address] | | LAB | | | | [address], | | | | | | [place] [address] | | | | + + + + + + | Absolute | 0.5Comment: Testing | 0 - 0.8 K/uL | EXTERNAL | | | Monocytes | performed at [facility], [address] | | LAB | | | | [address], | | | | | | [place] [address] | | | | + + + + + + | RBC | RBC AND PLT MORPHOLOGY | | EXTERNAL | | | Morphology | APPEAR NORMALComment: | | LAB | | | | Testing performed at | | | | | | [facility], [address] | | | | | | [place] | | | | | | [address] | | | | + + + [...] | | | | | [place] [address] | | | | + + + + + + | K | 4.2Comment: Testing | 3.5 - 4.9 | EXTERNAL | | | | performed at [facility], [address] | mmol/L | LAB | | | | [address], | | | | | | [place] [address] | | | | + + + + + + | Cl | 101Comment: Testing | 99 - 109 mmol/L | EXTERNAL | | | | performed at [facility], [address] | | LAB | | | | [address], | | | | | | [place] [address] | | | | + + + + + + | CO2 | 28Comment: Testing | 23 - 32 mmol/L | EXTERNAL | | | | performed at [facility], [address] | | LAB | | | | [address], | | | | | | [place] [address] | | | | + + + + + + | Anion Gap | 8Comment: Testing | 5 - 20 mmol/L | EXTERNAL | | | | performed at [facility], [address] | | LAB | | | | [address], | | | | | | [place] [address] | | | | + + + + + + | Glucose, | 183 (H)Comment: Testing | 65 - 99 mg/dL | EXTERNAL | | | Fasting | performed at [facility], [address] | | LAB | | | | [address], | | | | | | [place] [address] | | | | + + + + + + | BUN | 12Comment: Testing | 8 - 25 mg/dL | EXTERNAL | | | | performed at [facility], [address] | | LAB | | | | [address], | | | | | | [place] [address] | | | | + + + + + + | Creatinine | 0.81Comment: Testing | 0.70 - 1.30 | EXTERNAL | | | | performed at [facility], [address] | mg/dL | LAB | | | | [address], | | | | | | [place] [address] | | | | + + + + + + | BUN/Creatin | 15Comment: Testing | | EXTERNAL | | | ine Ratio | performed at [facility], [address] | | LAB | | | | [address], | | | | | | [place] [address] | | | | + + + + + + | Calcium | 8.3 (L)Comment: NOTE NEW | 8.5 - 10.5 | EXTERNAL | | | | REFERENCE RANGETesting | mg/dL | LAB | | | | performed at [facility], [address] | | | | | | [facility], | | | | | | [place] [id number] | | | | + + + [...] | | | | | | at [facility], [address] | | | | | | [facility], | | | | | | [place] [id number] | | | | + + + [...] | | | Clotting | performed at [facility];888 | seconds | LAB | | | time, POC | [address];[place] | | | | | | [address] | | | | + + + [...] SURGEON: | | | Vincent Fields MD MANAGER MARKETING COMMUNICATION: MORRO Arboleda ANESTHESIA: General | | | [...] | properly identified and brought to the [employer]. The patient was | | | placed supine on the [employer] table and the patient underwent general | [...] | | was upsized to a 7 Malawian sheath. Next, a perclose device was deployed | | | at the 10:00 and 2:00 position in the right common femoral artery. | | | The 7 Malawian sheath was then reinserted over the wire. A pigtail | | | catheter was then placed through the right sheath into the mid aorta. | | | Next, a micropuncture needle was used to access the left common | | | femoral artery. A micropuncture sheath was then inserted over wire and | | | this was upsized to a 7 [place]awian sheath. Again, a perclose device was | | | deployed at the 10:00 and 2:00 position in the left common femoral | | | artery. An Amplatz wire was then placed to the left 7 Malawian sheath | | | with the tip of the wire in the aortic arch. Once the wire was in | | | place, the 7-Malawian sheath was removed from the left common [...] | | placed into the right 7 chinese sheath with the tip at the aortic arch. | | | The 7 chinese sheath was then removed and upsized to a 16 chinese | | | sheath. Next, a right [...] device was then removed and a 16 chinese sheath was | | | inserted over the wire. A left iliac arteriogram was then performed | | | through the 16 Malawian sheath and the location of the left [...] the Perclose device SURGEON: Vincent Fields MD MANAGER MARKETING COMMUNICATION: Ingrid | | MORRO Morris ANESTHESIA: General [...] identified and | | brought to the [employer]. The patient was placed supine on the [employer] table and the | | patient underwent general endotracheal anesthesia. The patient's abdomen and bilateral | | groins were then prepped and draped in the usual sterile fashion. First, a micropuncture | | needle was used to access the right common femoral artery. A micropuncture sheath was | | then inserted over wire and this was upsized to a 7 [place]awian sheath. Next, a perclose | | device was deployed at the 10:00 and 2:00 position in the right common femoral artery. | | The 7 Malawian sheath was then reinserted over the wire. A pigtail catheter was then | | placed through the right sheath into the mid aorta. Next, a micropuncture needle was | | used to access the left common femoral artery. A micropuncture sheath was then inserted | | over wire and this was upsized to a 7 Malawian sheath. Again, a perclose device was | | deployed at the 10:00 and 2:00 position in the left common femoral artery. An Amplatz | | wire was then placed to the left 7 Malawian sheath with the tip of the wire in the aortic | | arch. Once the wire was in place, the 7-Malawian sheath was removed from the left common [...] placed into the right 7 | | chinese sheath with the tip at the aortic arch. The 7 chinese sheath was then removed and | | upsized to a 16 chinese sheath. Next, a right iliac artery arteriogram [...] device was then removed and a 16 chinese sheath was inserted over the wire. A | | left iliac arteriogram was then performed through the 16 Malawian sheath and the location | | of [...] SURGEON: | | | Vincent Fields MD MANAGER MARKETING COMMUNICATION: MORRO Arboleda ANESTHESIA: General | | | [...] | properly identified and brought to the [employer]. The patient was | | | placed supine on the [employer] table and the patient underwent general | [...] | | was upsized to a 7 Malawian sheath. Next, a perclose device was deployed | | | at the 10:00 and 2:00 position in the right common femoral artery. | | | The 7 Malawian sheath was then reinserted over the wire. A pigtail | | | catheter was then placed through the right sheath into the mid aorta. | | | Next, a micropuncture needle was used to access the left common | | | femoral artery. A micropuncture sheath was then inserted over wire and | | | this was upsized to a 7 Malawian sheath. Again, a perclose device was | | | deployed at the 10:00 and 2:00 position in the left common femoral | | | artery. An Amplatz wire was then placed to the left 7 Malawian sheath | | | with the tip of the wire in the aortic arch. Once the wire was in | | | place, the 7-Malawian sheath was removed from the left common [...] | | placed into the right 7 chinese sheath with the tip at the aortic arch. | | | The 7 chinese sheath was then removed and upsized to a 16 chinese | | | sheath. Next, a right [...] device was then removed and a 16 chinese sheath was | | | inserted over the wire. A left iliac arteriogram was then performed | | | through the 16 Malawian sheath and the location of the left [...] the Perclose device SURGEON: Vincent Fields MD MANAGER MARKETING COMMUNICATION: Ingrid | | MORRO Morris ANESTHESIA: General [...] identified and | | brought to the [employer]. The patient was placed supine on the [employer] table and the | | patient underwent general endotracheal anesthesia. The patient's abdomen and bilateral | | groins were then prepped and draped in the usual sterile fashion. First, a micropuncture | | needle was used to access the right common femoral artery. A micropuncture sheath was | | then inserted over wire and this was upsized to a 7 Malawian sheath. Next, a perclose | | device was deployed at the 10:00 and 2:00 position in the right common femoral artery. | | The 7 Malawian sheath was then reinserted over the wire. A pigtail catheter was then | | placed through the right sheath into the mid aorta. Next, a micropuncture needle was | | used to access the left common femoral artery. A micropuncture sheath was then inserted | | over wire and this was upsized to a 7 Malawian sheath. Again, a perclose device was | | deployed at the 10:00 and 2:00 position in the left common femoral artery. An Amplatz | | wire was then placed to the left 7 Malawian sheath with the tip of the wire in the aortic | | arch. Once the wire was in place, the 7-Malawian sheath was removed from the left common [...] placed into the right 7 | | chinese sheath with the tip at the aortic arch. The 7 chinese sheath was then removed and | | upsized to a 16 chinese sheath. Next, a right iliac artery arteriogram [...] device was then removed and a 16 chinese sheath was inserted over the wire. A | | left iliac arteriogram was then performed through the 16 Malawian sheath and the location | | of [...] | | | Clotting | performed at [facility];888 | seconds | LAB | | | time, POC | [address];[place] | | | | | | [address] | | | | + + + [...] | | | Clotting | performed at [facility];888 | seconds | LAB | | | time, POC | [address];[place], [place] | | | | | | [address] | | | | + + + [...] | | | Clotting | performed at [facility];888 | seconds | LAB | | | time, POC | [address];[place], [place] | | | | | | [address] | | | | + + + [...]
--- OUTSIDE RECORDS SUMMARY | ~2020-02-20 | XMS | Encounter Summary ---
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, so that when he exerts himself, his hea rt rate increases. He did notice a difference the first day this was done. Per notes "Attem pted HEMSTITCHER optimization today; however, any time LV offset was changed, patient became dizzy a nd felt near-syncopal. BP throughout was stable. Ultimately, reverted back to LV offset -40, as this was the only setting he felt well. Even AdaptiveCRT made him profoundly symptomatic . Unfortunately, given these symptoms, patient did not tolerate HEMSTITCHER optimization. I did thornton ge him from DDD to DDDR, even though HR histograms showed good distribution of HRs, in hopes that this may give him improved activity tolerance." He is currently on a regimen of Spiriva one capsule inhaled daily. He notes he has run That{img} ss a couple of these that are empty. He contacted the mri supervisor, and he did get 10 capsul es [...] is currently on 3.5 LPM at n [facility]. He reports good compliance. He remains [...] COPD (chronic obstructive pulmonary disease) ([facility]) Allergic rhinitis seeing Dr. 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 Hobbies: Going to the [employer]. Allergies: Allergies Allergen Reactions Codeine Anaphylaxis Meperidine [...] made to ensure accuracy; however, inadvertent computerized clutch inspector errors may be pre sent. Electronically signed [...] | | | | | [place] [address] | | | | | | [phone] | | | | | | | [...]
--- OUTSIDE RECORDS SUMMARY | ~2020-02-20 | XMS | Encounter Summary ---
Demographics + + + | Address | [address] | | | [place] [address] | + + + | Home Phone [...] + | Author | [facility] | | | and [place] | + + + | Organization | [facility] | | | [...] Providers + +------+ + | Care Rn Med Surg Name | Role | Phone | + [...] PULMONARY [address] | RN | [facility] | | | | [place], | | | | | | [place] [address] | | | | | | [phone] | | | +--------+ + + + [...] DR | | | | | | [place] [address] | | | | | | [phone] | | | | | | | [...]
--- OUTSIDE RECORDS SUMMARY | ~2020-02-20 | XMS | Encounter Summary ---
Demographics + + + | Address | [address] | | | [place] [address] | + + + | Home Phone [...] Team Providers + +------+ + | Care Naturopathic Doctor Name | Role | Phone | + +------+ + | Carla Murphy | PCP | | | PA-C | | | + +------+ + Reason for Referral Evaluate & Treat (Routine) + + + + + + + | Status | Reason | Specialty | Diagnoses / | Referred By | Referred To | | | | | Procedures | Contact | Contact | + + + + + + + | Authorized | Specialty | Cardiology | Diagnoses | [place], | Jean Marie, | | | Services | | | Nav N, | November, | | | Required | | Non-ischemic | [address] | | | | | | [address] | DR RAJAN F | | | | | cardiomyopat | [place], | [place], [place] | | | | | hy (HCC) | [place] [address] | [address] Phone: | | | | | | Phone: | [phone] | | | | | | [phone] | Fax: | | | | | | Fax: | [phone] | | | | | | [phone] | | + + + + + + + Reason for Visit + + + | Reason | Comments | + + + | Follow-up | | + + + Encounter Details +--------+---------+ + + + | Date | Type | Department | Care Team | Description | +--------+---------+ + + + | 10/21/ | Office | [facility] | Nav Foley, | Non-ischemic | | 2020 | Visit | CARDIOLOGY [place] | [address] | cardiomyopathy (HCC) | | | | [address] | [place] [address] | (Primary Dx) | | | | [place], [place] | [phone] | | | | | [address] | | | | | | [phone] | | | +--------+---------+ + + + [...] encounter Progress Notes Nav Foley MD - 10/22/2019 3:45 PM PSTFormatting of this note might be different fro m the original. Progress Notes by Nav Foley MD at 12/04/18 1500 Author: Nav Foley MD Service: (none) Author Type: Physician Filed: 12/06/18 1040 Encounter Date: 12/04/2018 Status: Signed Pollution Control Engineer: Nav Foley MD (Physician) Related Notes: Original Note by Nav Foley MD (Physician) filed at 12/04/18 1604 FOLLOW UP : 1945 DATE OF SERVICE: 10/22/2019 PROVIDER: NAV FOLEY MD PRIMARY CARE: Carla Murphy CHIEF COMPLAINT: Chief Complaint Patient presents with Follow-up 2 month HPI: He is here for followup. Main complaint is fatigue and daytime somnolence. He has untreated sleep apnea. He cannot tolerate the mask because of claustrophobia. No real shortness of br eath. No chest pain. Since his last visit, he underwent angiography showing essentially norm al coronary arteries with the exception of minimal disease in the RCA. No ICD issues. PMH, SH, FH, and meds were reviewed in the chart. CURRENT MEDICATIONS: Outpatient Encounter Prescriptions as of 12/04/2018 Medication Sig Dispense Refill aspirin 81 MG EC tablet Take 81 mg by mouth daily. atorvastatin (LIPITOR) 20 MG tablet Take 20 mg by mouth nightly. Cholecalciferol (VITAMIN D3) 66375 UNITS CAPS Take 5,000 Int'l Units by [...] HENT: Negative for nosebleeds and trouble swallowing. Positive for sinus congestion. Eyes: Negative for redness and visual disturbance. [...] pallor, no jaundice, no cyanosis. Assessment DATA: Angiogram report reviewed. IMPRESSION: 1. Nonischemic cardiomyopathy with EF estimated at 35% to 40%, class 2 to 3 symptoms. 2. AICD in situ. 3. Normal coronary anatomy. 4. Intolerance to carvedilol and possibly PATTY inhibitors. 5. Untreated sleep apnea. 6. Obesity. 7. Restrictive lung disease with elevated left hemidiaphragm. 8. History of non-sustained VT requiring amiodarone. 9. History of abdominal aortic aneurysm repair. 10. History of TIA. PLAN: Change Lopressor to Toprol XL 25 mg one half pill a day. We will arrange for heart failure management. Continue ICD checks. I have asked him to look into finding an ear, nose, and thr oat specialist that also deals with sleep apnea, perhaps in [place]. We will see him again in 6 months or sooner if problems. Documented by Magdalena. Cardiac Medications: Continue as [...] DR | | | | | | [place] [address] | | | | | | [phone] | | | | | | | [...] | + + +--------+ + + | Ambulatory Referral | Outpatient | Routin | Non-ischemic | Ordered: 10/22/2019 | | to [facility] | Referral | e | cardiomyopathy (HCC) | | | Heart Failure | | | | | | Management | | | | | + + +--------+ + + documented as of this encounter Visit Diagnoses + + | Diagnosis | + + | Non-ischemic cardiomyopathy (HCC) - Primary Other primary cardiomyopathies | + + documented in this encounter
--- OUTSIDE RECORDS SUMMARY | ~2020-02-20 | XMS | Encounter Summary ---
Demographics + + + | Address | [address] | | | [place] [address] | + + + | Home Phone [...] Providers + +------+ + | Care Air Tank Assembler Name | Role | Phone | + +------+ + PCP | Unavailable | + +------+ + Encounter Details +--------+ + + + + | Date | Type | Department | Care Team | Description | +--------+ + + + + | 09/16/ | Hospital | [facility] | Conversion | Pain | | 2015 | Encounter | CONVERSION [address] | Transaction, | | | | | [address] | Provider Unknown | | | | | [place], [place] | [phone] | | | | | [address] | | | | | | [phone] | | | +--------+ + + + [...] DR | | | | | | [place] [address] | | | | | | [phone] | | | | | | | [...]
--- OUTSIDE RECORDS SUMMARY | ~2020-02-20 | XMS | Encounter Summary ---
Demographics + + + | Address | [address] | | | [place] [address] | + + + | Home Phone [...] Phone | + + +---------+ + | Cahmp Abraham | ECON | Unknown | | + + +---------+ + | Mili Villavicencio | ECON | Unknown | | + + +---------+ + Care Team Providers + +------+ + | Care Rn Long Term Care Name | Role | Phone | + [...] Chiang MD | | | | | [place], | | | | | | [place] [address] | | | | | | [phone] | | | +--------+ + + + [...] [address] | | | | | | [place] [address] | | | | | | [phone] | | | | | | | [...] [address] | [place] | [phone] | | [facility] | | [address] | | | - LABORATORY | | [...] ST. | [address] | [place] | [phone] | | [facility] | | [address], [facility] | | | - LABORATORY [...] [address] | [place] | [phone] | | [facility] | | [address] | | | - LABORATORY | [...]
--- OUTSIDE RECORDS SUMMARY | ~2020-02-20 | XMS | Encounter Summary ---
Demographics + + + | Address | [address] | | | [place] [address] | + + + | Home Phone [...] Team Providers + +------+ + | Care Scrubber Machine Tender Name | Role | Phone [...] + + | 10/09/ | Office | [facility] | Poppy Rodriguez | Non-ischemic | | 2020 | Visit | CARDIOLOGY DEANNE | [address] | cardiomyopathy (HCC) | | | | [address] | [address] | (Primary Dx); | | | | [address] | [place] [address] | Cardiac | | | | [place] | [phone] | resynchronization | | | | [address] | | therapy | | | | [phone] | | defibrillator | | | | | | (FEED MANAGER-D) in place; | | | | [...] type | | | | | | ([facility]); Dyspnea on | | | | | [...] of Dr. Foley, who is his primary lab aid,and last seen by him 2018. He has an AICD with FEED MANAGER-D for history of ventricular tachycardia, allowed by [...] history of ventricular tachycardia with insertion of FEED MANAGER-D in January 2010 and most recent [...] daily., which I had asked EP abo nh, and they suggested amiodarone 100 mg twice [...] also seen in the emergency room at [facility] in [place] on September 02 chest pain pressure was [...] habits, as he usually goes to the [facility] at around midnight, and will stay to [...] PND. Poor sleep habits: Goes to the [employer] from midn ight-3 AM, usually goes to [...] due to poor activity tolerance. Lives in [place]. , lost his fiancee in 2001 when she in a car crash after being hit by distracted garbage collector driver on a cell phone Outpatient Medications [...] or wheezing noted, respirations unl abored HEART: FEED MANAGER-D site to CHIKA, stable to palpation, [...] TOTEPI CARDIAC PROCEDURES/IMAGING Last Angiogram: 09/17/2019 ( [facility]) : All coronary arteries angiographically normal except RC A which has minimal luminal irregularities. LVEDP mildly elevated Angiogram: 11/05/2008: Normal coronaries, consistent with nonischemic cardiomyopathy EF 15- 20 percent.. Stress test: 08/29/2019 ([facility]): SPECT study showing large fixed [...] No intracranial saccular aneurysms are identifie d FEED MANAGER-D Implant : MDT FEED MANAGER-D by Dr. Martinez. in January 2010., Generator change by Dr. Delarosa in 15 viva xt FEED MANAGER D MDT number [id number].Patient has a 5076 atrial lead Medtronic. 6947 Sprin t Quattro Medtronic RV lead and 4195 Starfix Medtronic LV lead. All leads were implanted in January 2010. Last FEED MANAGER-D interrogation : 07/30/2019: ( [facility]): Battery longeviity 3.6 yrs. Bi V pace d 99.6%. RA paced 32.9 %. DDR 60-140 Bpm. Events: none but cleared on 07/23/[address] [facility] FEED MANAGER-D interrogation: 06/02/2019: Battery longevity( 3 yrs, 11 months ) .TECHNICAL SOLUTION ARCHITECT 2.73 V RA pac ing 14% , [...] Congestive heart failure parameters and trends stable. FEED MANAGER-D interrogation: 09/23/2018: Battery longevity( 3.7-5.9y) 4.8 years/2.97V.TECHNICAL SOLUTION ARCHITECT 2.73 V R A pacing 30.79 percent, RV pacing 99.04 percent, FEED MANAGER pacing 98.92 percent. Lead impedance W [...] terminated episode. No shocks. No aborted charges. FEED MANAGER-D interrogation: 09/04/2018: Battery longevity 4.9 years/2.98 V ( TECHNICAL SOLUTION ARCHITECT 2.73V) . Lead impe ndence WNL. Thresholds [...] gained 3 pounds over a 24-hour period FEED MANAGER-D Quick Look: 08/17/2018: ( [facility] admission for syncope) : Longevity of [...] lve not well visualized, mild to moderate MI. Echo: 09/25/2017 ([facility]): Technically adequate study. EF 30-35 percent. Mild [...] pericardial effusion. NON CARDIAC TESTING: PFT: 10/19/2015:( [facility]'): Spirometry: Prior to administration of [...] complexes him a PVC's. Rate 72 bpm, MI 112 ms, QRS 150 ms, QTC 494 ms tracing personally reviewed by me EK10/10/2018: Atrially paced rhythm, occasional PVC. Rate 84 bpm, MI 178 ms, QRS 174 ms, QTC 531 ms him a tracing personally reviewed by me, and improved rate and less frequent PVC 's and EKG performed 07/2018 EK01/28/2019: Atrially sensed by V paced rhythm. Rate 77 bpm, MI 162 ms, QRS 184 ms, QTC 506 ms, tracing personally reviewed by me. EKG 07/21/2019:Atrially sensed by V paced rhythm With PVC's, right bundle branch block, old septal infarct. Rate 104 bpm, MI 154 ms, QRS 174 ms, QTC 539 mL, Tracing personally reviewe d by me EK07/23/2019: ([facility]). Atrially sensed V paced rhythm with frequent PVC's. Rate 87 bpm , MI 166 ms, QRS 178 ms, QTC 555 ms, tracing personally reviewed by me EK09/01/2019 Atrial sensed V paced rhythm right bundle branch block. Occasional PVC's. Rate 76 bpm, MI 124 ms, QRS 184 ms, QTC 524 ms tracing personally reviewed by me EK10/09/2019: Atrially sensed V paced rhythm with frequent PVCs and fusion complexes. Ra te 83 bpm, MI 168 ms, QRS 178 ms, QTC 528 [...] creatinine 0.96, GFR 77 Labs: : 05/26/2019: [facility]: CBC: WBC 9.5, RBC 4.92, hemoglobin [...] smoke exposure as he goes to the [employer] almost nightly. He will follow up with Dr. Foley for primary cardiology in October, and Dr. Foley can evaluat e his response to amiodarone. 1. Non-ischemic cardiomyopathy (HCC) 2. Cardiac resynchronization therapy defibrillator (FEED MANAGER-D) in place 3. Non-sustained ventricular tachycardia [...] contain inadvertent rec ognition errors. Chan HOOKER [facility] Cardiology 10/10/2019 Brandon mullins in this encounter [...] | | | | | [place] [address] | | | | | | [phone] | | | | | | | [...] defibrillator | | | | | | (FEED MANAGER-D) in place | | | | [...] + + | Cardiac resynchronization therapy defibrillator (FEED MANAGER-D) in place | + + | [...]
--- OUTSIDE RECORDS SUMMARY | ~2020-02-20 | XMS | Encounter Summary ---
Demographics + + + | Address | [address] | | | [place] [address] | + + + | Home Phone [...] Team Providers + +------+ + | Care Diesel Service Journeyman Name | Role | Phone | + +------+ + | Carla Murphy | PCP | | | PA-C | | | + +------+ + Reason for Visit + + + | Reason | Comments | + + + | Device Check | Medtronic LOOM SETTER FOURDRINIER-D remote | | (Remote) | | + + + Encounter Details +--------+ + + + + | Date | Type | Department | Care Team | Description | +--------+ + + + + | 06/02/ | Procedure | [facility] | | Non-ischemic | | 2019 | visit | CARDIOLOGY [place] | | cardiomyopathy (HCC) | | | | [address] | | (Primary Dx); | | | | [place], [place] | | Non-sustained | | | | [address] | | ventricular | | | | [phone] | | tachycardia (HCC); | | | [...] Rodriguez Primary electrophysiology provider: Constantin Chavez Device model dresser: Medtronic Device type: Biventricular Battery Longevity: 3yrs [...] since the last interrogation. Testing reviewed by: infrastructure developerRossy Shoemaker Associated attestation - Constantin Chavez MD [...] DR | | | | | | [place] [address] | | | | | | [phone] | | | | | | | [...] Murphy PA-C | | | : 1945MRN: [id number] Primary cardiology provider: Poppy | | | Ruby Rodriguez Primary electrophysiology provider: Constantin Chavez | | | Device model dresser: Medtronic Device type: Biventricular Battery | | [...] | the last interrogation. Testing reviewed by: [employer] Fransisca Shoemaker | | | | | [...] | | | | |Testing reviewed by: [employer] Fransisca Shoemaker | | | | | [...]
--- OUTSIDE RECORDS SUMMARY | ~2020-02-20 | XMS | Encounter Summary ---
Demographics + + + | Address | [address] | | | [place] [address] | + + + | Home Phone [...] Team Providers + +------+ + | Care Yoghurt Maker Name | Role | Phone | [...] Provider Unknown | | | | | [place], [place] | | | | | | [address] | (Fax) | | | | | [...] DR | | | | | | [facility] [address] | | | | | | [phone] | | | | | | | [...]
--- OUTSIDE RECORDS SUMMARY | ~2020-02-20 | XMS | Encounter Summary ---
Demographics + + + | Address | [address] | | | [place] [address] | + + + | Home Phone [...] Providers + +------+ + | Care Chief Internal Auditor Name | Role | Phone | + [...] + + | 07/30/ | Office | [facility] EP | Mary Tipton ANP | Non-ischemic | | 2019 | Visit | CARDIOLOGY [place] | [address] | cardiomyopathy (HCC) | | | | [address] | [place], [place] | (Primary Dx); | | | | [place], [place] | [id number] | Non-sustained | | | | [address] | | ventricular | | | | [phone] | | tachycardia (HCC); | | | | | | Cardiac | | | | | | resynchronization | | | | | | therapy | | | | | | defibrillator | | | | | | (CREATIVE SPECIALIST-D) in place; | | | | [...] as appropriate device function Request records from [facility] for hospital stay 07/23/2019-07/28/2019 and TTE [...] and interpreted reveals -BiV pacing HR 83, ID 172, QR SD 154, QTC 509 Greater than 45 minutes spent with patient and/or family. Greater than 25 minutes spent in counseling and education on cardiomyopathy, NSVT, amiodarone. EP PROBLEMS ADDRESSED AT TODAY'S VISIT Problem List Cardiac resynchronization therapy defibrillator (CREATIVE SPECIALIST-D) in place Overview History of nonischemic cardiomyopathy, NYHA class II, status post implantation of a MDT C RT-D by Dr. Chiang in January 2010. Generator change by Dr. Delarosa in 2014 viva xt CREATIVE SPECIALIST D MDT number [id number].Patient has a 5076 atrial lead Medtronic. 6947 [...] at the time of his hospitalization at [facility]. Non-ischemic cardiomyopathy Overview EF 35-40%, class [...] recent stress testing. Request echo results from [facility]. Will discuss next steps with Dr. [...] 04/15/2018: Admitted and treated for TIA at [facility] with consult form stroke team at [facility]. noted moderate stenosis of left vertebral artery at V1 and V2 segments, dysarthria, Exposure to secondhand smoke 07/21/2019 Note Last Updated: 07/21/2019 Goes to [place] almost nightly. Chronic restrictive lung disease 07/21/2019 DM II (diabetes mellitus, type II), controlled (HCC) 08/18/2018 History of ventricular tachycardia 08/17/2018 HTN (hypertension) 08/17/2018 Syncope and collapse 08/17/2018 Morbid obesity (HCC) 07/10/2017 Note Last Updated: 03/12/2019 Weight loss was strongly encouraged. He needs to get involved in an exercise program. 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 Cardiac resynchronization therapy defibrillator (CREATIVE SPECIALIST-D) in place 01/21/2017 Note Last Updated: 07/30/2019 History of nonischemic cardiomyopathy, NYHA class II, status post implantation of a MDT C RT-D by Dr. Chiang in January 2010. Generator change by Dr. Delarosa in 2014 viva xt CREATIVE SPECIALIST D MDT number [id number].Patient has a 5076 atrial lead Medtronic. 6947 [...] at the time of his hospitalization at [facility]. Non-sustained ventricular tachycardia (HCC) 01/21/2017 Note [...] Request echo results [facility]. Will discuss next steps with Dr. [...] IV fluid resuscitation. Will request records from [facility] for further evaluation. He denies any [...] Patient says he tolerated [facility] - bends Meperidine Anaphylaxis and Other (See Comments) Heart stops 08/18/18 Patient says he [facility] - bends Orphenadrine Anaphylaxis and Other (See Comments) Heart stops 08/18/18 Patient says [facility] tolerated [facility] - bends Percodan [Oxycodone] Anaphylaxis Amiodarone Other (See Comments) [...] DR | | | | | | [place] [address] | | | | | | [phone] | | | | | | | [...] | | | | | by [employer] [place] Read Only, | | | | | | [employer] Pam ([id number]), | | | | | | graphic editor Victorialacey Darwin | | | | | | (382) on 07/30/2019 | | | | | [...] + + | Cardiac resynchronization therapy defibrillator (CREATIVE SPECIALIST-D) in place | + + | Orthostatic hypotension | + + documented in this encounter
--- OUTSIDE RECORDS SUMMARY | ~2020-02-20 | XMS | Encounter Summary ---
Demographics + + + | Address | [address] | | | [place] [address] | + + + | Home Phone [...] Team Providers + +------+ + | Care Harp Action Assembler Name | Role | Phone | [...] | | | [address] | [address] [place], [place] | | | | | [place], [place] | [address] | | | | | [address] | | | | | | [phone] | | | +--------+ + + + [...] DR | | | | | | [place] [address] | | | | | | [phone] | | | | | | | [...] PV maxP.92 mmHg PV Vmax: 0.99 m/s Senior Training Specialist: | | | Authenticated by: LIZBET LYNN MD Report Date/Time: -- | | | [id number]:9:34 | | + + + + + [...] cmLVPWd: 1.13 cmLVOT Area: | | 5.09 [id number] Diam: 2.54 cm%FS: 1.72 %EF(Teich): 3.94 %ESV(Teich): [...] (A-L): 45.03 | | ml/m2LAAs A2C: 31.66 [id number] A-L A2C: 147.72 mlLALs A2C: 5.75 cmLAAs A4C: 21.81 | | [id number] A-L A4C: 68.38 mlLALs A4C: 5.90 cmRAAs: 25.43 oh4MRWMW A-L: 100.41 | | mlRAESV MOD: 92.04 mlRALs: 5.46 cmAo Diam: 3.82 cmLA Diam: 4.65 cmLA/Ao: | | 1.21TAPSE: 2.41 cmAV maxP.90 mmHgAV meanP.40 mmHgAV Vmax: 1.21 m/Fabricio | | Vmean: 0.87 m/Fabricio VTI: 23.83 cmAVA Vmax: 3.69 cm2AVA (VTI): 3.60 qr1HDAW Vmax: | | 0.00 cm2/m2AVAI (VTI): 0.00 cm2/m2LVOT maxP.10 mmHgLVOT meanP.59 mmHgLVSI | | Dopp: 37.97 ml/m2LVSV Dopp: 85.81 mlLVOT Vmax: 0.88 m/sLVOT Vmean: 0.59 m/sLVOT | | VTI: 16.83 cmMV A Frank: 0.65 m/sMV DecT: 257.92 msMV E Frank: 0.47 m/sMV E/A | | Ratio: 0.73MV PHT: 74.79 msMVA By PHT: 2.94 xr9Rsuxvr e': 0.04 m/sSeptal E/e': | | 11.67Lateral e': 0.04 m/sLateral E/e': 10.11PV maxP.92 mmHgPV Vmax: 0.99 | | m/s Senior Training Specialist:Authenticated by: Devan LEE Date/Time: -- | | [id number]:9:34 IMPRESSION: 1. Overall left ventricular systolic function [...] |PV Vmax: 0.99 m/s | | | |Senior Training Specialist: | |Authenticated by: LIZBET LYNN MD | |Report Date/Time: [id number]:9:34 | | | |IMPRESSION: | |1. Overall [...]
--- OUTSIDE RECORDS SUMMARY | ~2020-02-20 | XMS | Encounter Summary ---
Demographics + + + | Address | [address] | | | [place] [address] | + + + | Home Phone [...] Providers + +------+ + | Care Orthopedic Tech Name | Role | Phone | + +------+ + | Carla Murphy | PCP | | | PA-C | | | + +------+ + Encounter Details +--------+ + + + + | Date | Type | Department | Care Team | Description | +--------+ + + + + | 09/25/ | Orders Only | [facility] | Graceamara, Elihed, | | | 2018 | | [address] | MD [address] | | | | | [address] | [place], [place] | | | | | [place], [place] | [address] | | | | | [address] | | | | | | [phone] | | | +--------+ + + + [...] | | | | | [place] [address] | | | | | | [phone] | | | | | | | [...] 9.77 RAP: 3 mmHg | | | Apprentice Architect: NIGEL Authenticated by: Gretchen Joy Report | [...] mlLAESV Index (A-L): 37.87 ml/m2LAAs A2C: 22.69 jf4EQROF | | A-L A2C: 93.63 mlLALs A2C: 4.66 cmLAAs A4C: 19.88 ui2ZNMVU A-L A4C: 77.98 mlLALs | | A4C: 4.30 cmRAAd: 23.19 [id number] A-L: 97.65 mlRAEDV MOD: 89.83 mlRALd: 4.67 | | cmTAPSE: 2.19 cmAV maxP.27 mmHgAV meanP.41 mmHgAV Vmax: 1.03 m/Fabricio | | Vmean: 0.73 m/Fabricio VTI: 19.23 cmAVA Vmax: 4.21 cm2AVA (VTI): 4.42 ep0XUHV Vmax: | | 0.00 cm2/m2AVAI (VTI): 0.00 cm2/m2LVOT maxP.13 mmHgLVOT meanP.63 mmHgLVSI | | Dopp: 36.18 ml/m2LVSV Dopp: 85.04 mlLVOT Vmax: 0.88 m/sLVOT Vmean: 0.61 m/sLVOT | | VTI: 17.26 cmMV E Frank: 0.83 m/sMV DecT: 110.72 msSeptal e': 0.09 m/sSeptal | | E/e': 8.70Lateral e': 0.08 m/sLateral E/e': 9.77RAP: 3 mmHg Apprentice Architect: | | DBSAuthenticated by: Gretchen [facility] Date/Time: 09-26-2017 7:40:19 IMPRESSION: 1. | | [...] | |RAP: 3 mmHg | | | |Apprentice Architect: DBS | |Authenticated by: Gretchen Joy | [...]
--- OUTSIDE RECORDS SUMMARY | ~2020-02-20 | XMS | Encounter Summary ---
Demographics + + + | Address | [address] | | | [place] [address] | + + + | Home Phone | | + + + | Preferred Language | Unknown | + + + | Marital Status | | + + + | Hoahaoism Affiliation | Unknown | + + + [...] Providers + +------+ + | Care Bilingual Executive Assistant Name | Role | Phone | + +------+ + PCP | Unavailable | + +------+ + Encounter Details +--------+ + + + + | Date | Type | Department | Care Team | Description | +--------+ + + + + | 09/16/ | Hospital | [facility] | Conversion | Pain | | 2015 | Encounter | CONVERSION [address] | Transaction, | | | | | [address] | Provider Unknown | | | | | [place], [place] | [phone] | | | | | [address] | | | | | | [phone] | | | +--------+ + + + [...] DR | | | | | | [place] [address] | | | | | | [phone] | | | | | | | [...]
--- OUTSIDE RECORDS SUMMARY | ~2020-02-20 | XMS | Encounter Summary ---
Demographics + + + | Address | [address] | | | [place] [address] | + + + | Home Phone [...] Team Providers + +------+ + | Care Plant Tour Guide Name | Role | Phone | + [...] Provider Unknown | | | | | [place], [place] | | | | | | [address] | (Fax) | | | | | [...] | | | [facility] [address] | | | | | | [phone] | | | | | | | [...]
--- OUTSIDE RECORDS SUMMARY | ~2020-02-20 | XMS | Encounter Summary ---
Demographics + + + | Address | [address] | | | [place] [address] | + + + | Home Phone [...] Providers + +------+ + | Care National Accounts Recruiter Name | Role | Phone | + [...] Unknown | | | | | [place], [place] | | | | | | [address] | (Fax) | | | | | [...] | [facility] [address] | | | | | | [phone] | | | | | | | [...]
--- OUTSIDE RECORDS SUMMARY | ~2020-02-20 | XMS | Encounter Summary ---
Demographics + + + | Address | [address] | | | [place] [address] | + + + | Home Phone [...] Team Providers + +------+ + | Care Purchasing Agent Name | Role | Phone | [...] Provider Unknown | | | | | [place], [place] | | | | | | [address] | (Fax) | | | | | [...] | | | | | | [facility] [address] | | | | | | [phone] | | | | | | | [...]
--- OUTSIDE RECORDS SUMMARY | ~2020-02-20 | XMS | Encounter Summary ---
Demographics + + + | Address | [address] | | | [place] [address] | + + + | Home Phone [...] Team Providers + +------+ + | Care Straightedge Man Name | Role | Phone | + +------+ + | Carla Murphy | PCP | | | PA-C | | | + +------+ + Encounter Details +--------+ + + + + | Date | Type | Department | Care Team | Description | +--------+ + + + + | 06/18/ | Procedure | [facility] | Nav Foley, | Palpitations | | 2019 | visit | CARDIOLOGY [facility]AT[facility] | [address] | | | | | [address] | [place] [address] | | | | | [place], [place] | [phone] | | | | | [address] | | | | | | [phone] | | | +--------+ + + + [...] - 06/18/2019 3:00 PM PDT30 day telemetry 20925 cardiac monit or placed on patient. EOB/Billing information discussed. Instructions given and understood. Patient instructed to call [employer] for any billing or monitor questions. documented [...] DR | | | | | | [place] [address] | | | | | | [phone] | | | | | | | [...]
--- OUTSIDE RECORDS SUMMARY | ~2020-02-20 | XMS | Encounter Summary ---
Demographics + + + | Address | [address] | | | [place] [address] | + + + | Home Phone [...] Team Providers + +------+ + | Care Cable Cutter And Swager Name | Role | Phone | + [...] + + | 06/04/ | Office | [facility] | Nav Foley, | Palpitations | | 2019 | Visit | CARDIOLOGY [place] | MD [address] | (Primary Dx) | | | | [address] | [place] [address] | | | | | [place], [place] | [phone] | | | | | [address] | | | | | | [phone] | | | +--------+---------+ + + + [...] 12/06/18 1040 Encounter Date: 12/04/2018 Status: Signed Tactical Air Control Party Manager: Nav Foley MD (Physician) Related Notes: [...] mg by mouth nightly. Cholecalciferol (VITAMIN D3) 81646 UNITS CAPS Take 5,000 Int'l Units by [...] DR | | | | | | [place] [address] | | | | | | [phone] | | | | | | | [...]
--- OUTSIDE RECORDS SUMMARY | ~2020-02-20 | XMS | Encounter Summary ---
Demographics + + + | Address | [address] | | | [place] [address] | + + + | Home Phone [...] Team Providers + +------+ + | Care Truck Hopper Name | Role | Phone | + +------+ + PCP | Unavailable | + +------+ + Encounter Details +--------+ + + + + | Date | Type | Department | Care Team | Description | +--------+ + + + + | 11/05/ | Hospital | [facility] | Elder Suresh MD | Unspecified Chest | | 2008 | Encounter | [facility] | [address] | Pain | | | | CLINICAL DECISION | [address] | | | | | [address] | [place], [place] | | | | | [place], [place] | [address] | | | | | [address] | [phone] | | | | | [phone] | | | +--------+ + + + [...] | | | | | [place] [address] | | | | | | [phone] | | | | | | | [...] Performed At | + + + | [id number] | | | Page 1 CARDIOLOGY | | | [facility] [address]/ | | | [facility]PS [facility] | | | CENTER NAME: [place], [place] | | | [address] | | | | | | DATE OF : 1945 | | | ORDER NUMBER: [id number] EXAM DATE/TIME: 11/05/2008 08:22 A | | [...] | | | 1% lidocaine solution. A 6-Romanian arterial sheath was inserted into | | | the right common femoral artery using a modified Seldinger technique. | | | A 6-Romanian pigtail catheter was advanced over the guidewire [...] was exchanged over the guidewire by a 6-Romanian JL4 catheter that was | | | [...] a | | | guidewire by a 6-Romanian right coronary artery (RCA) Waqar catheter | [...] 01:39 P A | | | P ONI/dolly/[id number]/ cc: ELDER SURESH MD | | | RYAN FREY MD | | + + + + + | Procedure Note | + + | David Mckeon Conversion - 04/14/2019 4:31 AM PDT | | [id number] Page 1 | | CARDIOLOGY [facility] [address]/ | | OPS | | [facility] NAME: FRANCI VEL[address]ZQUEZ | | [place] [address] | | | | DATE OF : 1945 | | | | ORDER NUMBER: [id number] | | EXAM DATE/TIME: 11/05/2008 08:22 A [...] 10 mL of 1% lidocaine solution. A 6-Romanian arterial | | sheath was inserted into the right common femoral artery using a | | modified Seldinger technique. A 6-Romanian pigtail catheter was advanced | | over [...] was exchanged over the guidewire by a 6-Romanian JL4 | | catheter that was advanced over the guidewire under fluoroscopy and | | engaged to the left main artery. Dye was injected into the left coronary | | system, and multiple angiographic pictures of the left coronary system | | were taken in multiple projections. The JL4 catheter was exchanged over | | a guidewire by a 6-Romanian right coronary artery (RCA) Waqar catheter | [...] | A | | P | | ONI/dolly/[id number]/ | | cc: ELDER SURESH MD | | RYAN FREY MD | + + documented in this encounter Visit Diagnoses + + | Diagnosis | + + | Chest pain, unspecified | + + documented in this encounter"
--- OUTSIDE RECORDS SUMMARY | ~2020-02-20 | XMS | Encounter Summary ---
Demographics + + + | Address | [address] | | | [place] [address] | + + + | Home Phone [...] Team Providers + +------+ + | Care Continuity Editor Name | Role | Phone | + [...] Chiang MD | | | | | [place], | | | | | | [place] [address] | | | | | | [phone] | | | +--------+ + + + [...] sniff test that he had performed at [facility] on 11/01/15 sam ws no diaphragm [...] DR | | | | | | [facility] [address] | | | | | | [phone] | | | | | | | | +--------+ + + + + | 04/28/ | Procedure | Cardiology | | | | 2020 | visit | | | | +--------+ + + + + documented as of this encounter Visit Diagnoses Not on filedocumented in this encounter"
--- OUTSIDE RECORDS SUMMARY | ~2020-02-20 | XMS | Encounter Summary ---
Demographics + + + | Address | [address] | | | [place] [address] | + + + | Home Phone [...] Providers + +------+ + | Care Supervisor Warping Department Name | Role | Phone | + [...] | | | | | nuclear | ENTRY LEVEL WEB DEVELOPER [address] | MD [address] | | | | | stress test | [address] | [address] | | | | | Cardiac | [place] | [place] | | | | | resynchroniz | [facility] [place] | [address] Phone: | | | | | ation | [address] | [phone] | | | | | therapy | Phone: | Fax: | | | | | defibrillato | [phone] | [phone] | | | | | r (ACTIVITIES ASSISTANT-D) in | Fax: | | | | | | place | [phone] | | | | | | Non-ischemic [...] | | | | | | | [place] [facility] | | | | | [...] + + | 09/17/ | Surgery | [facility] | Kimmie Wills | CV Cor Angio | | 2020 | | CENTER CV INTRA OP | MD Saravanan [address] | | | | | [address] | [place]VD [place], [place] | | | | | [place], [place] | [address] | | | | | [address] | | | | | | [phone] | | | +--------+---------+ + + + [...] - 09/17/2019 5:19 PM PSTAbout 1650 contacted ear mold laboratory technician regarding pa marti feeling better and when could patient go. Instructed to have patient ambulate and see how he did. Patient able to ambulate in the room with what he says he normal feels when he s tands up too quickly. Resolved quickly. Patient able to dress with assist. Called back to [facility] lab and agreeable to have patient go home. Reviewed discharge instructions with patient. Patient discharged with all belongings to [facility]. aJesús caldwell RN - 09/17/2019 4:12 PM [...] DR | | | | | | [facility] [place] [address] | | | | | | [phone] | | | | | | | [...] defibrillator | | | | | | (ACTIVITIES ASSISTANT-D) in place | | | | | [...] defibrillator | | | | | | (ACTIVITIES ASSISTANT-D) in place | | | | | [...] | | | POC | performed at [facility];[address] | | LABORATORY | | | | [address];[place], [place] | | | | | | [address] | | | | + + + + + + + + | Specimen | + + | | + + + + + + + | Performing | Address | City/State/Zipcode | Phone Number | | Organization | | | | + + + + + | [facility] | [address] | [place] [address] | [phone] | + + + + + CV [...] with left heart | | | cath ([id number]) Procedure Summary Access site: right radial | [...] | | | | | | MDRD IDFL traceable | | | | | | equation.Testing | | | | | | performed at [facility];[address] | | | | | | [facility];[place], [place] | | | | | | [address] | | | | + + + + + + + + | Specimen | + + | | + + + + + + + | Performing | Address | City/State/Zipcode | Phone Number | | Organization | | | | + + + + + | [facility] | [address] | [place] [address] | [phone] | + + + + + CBC [...] [facility] | | | | performed at [facility];[address] | | LABORATORY | | | | [address];[place] | | | | | | [address] | | | | + + + + + + + + | Specimen | + + | Blood | + + + + + + + | Performing | Address | City/State/Zipcode | Phone Number | | Organization | | | | + + + + + | [facility] | [address] | [place] [address] | [phone] | + + + + + POC Glucose (09/17/2019 9:38 AM PST) + + + + + + | Component | Value | Ref Range | Performed | Pathologist | | | | | At | Signature | + + + + + + | Glucose, | 127 (H)Comment: Testing | 65 - 99 mg/dL | [facility] | | | POC | performed at [facility];[address] | | LABORATORY | | | | [address];[place], [place] | | | | | | [address] | | | | + + + + + + + + | Specimen | + + | | + + + + + + + | Performing | Address | City/State/Zipcode | Phone Number | | Organization | | | | + + + + + | [facility] | [address] | [place] [address] | [phone] | + + + + + documented in this encounter Visit Diagnoses + + | Diagnosis | + + | Abnormal nuclear stress test Other nonspecific abnormal cardiovascular system | | function study | + + | Cardiac resynchronization therapy defibrillator (ACTIVITIES ASSISTANT-D) in place | + + | Non-ischemic [...] + + | Cardiac resynchronization therapy defibrillator (ACTIVITIES ASSISTANT-D) in place | + + | Non-ischemic [...] | | | Administer over 1 Hours, MIS SPECIALIST, | | AM PST | | | [...]
--- OUTSIDE RECORDS SUMMARY | ~2020-02-20 | XMS | Encounter Summary ---
Demographics + + + | Address | [address] | | | [place] [address] | + + + | Home Phone [...] Providers + +------+ + | Care Plate Washer Name | Role | Phone | + +------+ + | Carla Murphy | PCP | | | PA-C | | | + +------+ + Encounter Details +--------+ + + + + | Date | Type | Department | Care Team | Description | +--------+ + + + + | 01/20/ | Hospital | [facility] | Therese Sarabia DO | Hypotension due to | | 2017 - | Encounter | [facility] | [address] | drugs; Non-sustained | | | | CLINICAL DECISION | [place] [address] | ventricular | | 01/21/ | | [address] | [phone] | tachycardia (HCC) | | 2017 | | [place], [place] | | | | | | [address] | | | | | | [phone] | | | +--------+ + + + [...] of this note might be different from th e original. Discharge Summaries by Beau Rudolph MD at 01/21/17 0852 Author: Beau Rudolph MD Service: (none) Author Type: Physician Filed: 01/21/17 0856 Date of Service: 01/21/1752 Status: Signed Dining Service Supervisor: Beau Rudolph MD (Physician) [facility] Service: Hospitalist Physician Discharge Summary Patient ID: Jared Abraham [id number] 71 y.o. 1945 Admit date: 01/20/2017 Discharge [...] Disposition: *Home Follow up: Carla Juarez PA-C [address] [place] [address] Nav Foley MD [address] [place] [address] Dictation and hl7 interface developer or software, Valderm, used which may contain error for similar [...] Enlarged heart COPD (chronic obstructive pulmonary disease) ([facility]) Pacemaker SANTO DOMINGO (hard of hearing) Hypertension Hyperlipidemia AAA (abdominal aortic aneurysm) ([facility]) MOISÉS (obstructive sleep apnea) 01/21/2017 Past Surgical History Procedure Laterality Date Pacemaker insertion 01/22/2014 Appendectomy Hernia repair Tumor removal head and neck Hand surgery tube put in to drain infection. Was put out for it as a child Aortic endograft N/A 09/23/2014 Procedure: AORTIC - ENDOGRAFT; Surgeon: Vincent Fields MD; Location: [facility] OR/[facility] [facility] [facility]; Ser vice: Vascular; Laterality: N/A; Significant Diagnostic [...] Commonly known as: NASACORT AQ Vitamin D3 11626 units Caps Refills: 0 STOP taking these [...] Service: (none) Author Type: Registered Nurse Filed: 01/21/17 0949 Date of Service: 01/21/17943 Status: Addendum Dining Service Supervisor: Kalpana Bell RN (Registered Nurse) Related Notes: [...] 01/21/17337 Date of Service: 01/21/17337 Status: Signed Dining Service Supervisor: Stanford Camarillo RPH (Pharmacist) Note ccl 103.3ml/min meds reviewed Pharmacy will follow [facility] 0338 docume nted in this encounter H&P Notes Therese Sarabia DO - 01/21/2017 12:51 AM PDTFormatting of this note might be different from t he original. H&P by Therese Sarabia DO at 01/21/17 005 Author: Therese Sarabia DO Service: Hospitalist Author Type: Physician Filed: 01/21/17 0445 Date of Service: 01/21/1750 Status: Signed Dining Service Supervisor: Therese Sarabia DO (Physician) [facility] Service: Hospitalist Admission History & Physical Date of Admission: 01/20/2017 Reason for Admission: Hypotension and palpitations (V. tach problems 6 seconds) History Obtained From: patient, chart review CHIEF COMPLAINT: Chief Complaint Patient presents with Hypotension Palpitations run of Vtach HISTORY OF PRESENT ILLNESS The patient is a 71 y.o. male with significant past medical history of non ischemic cardiom yopathy, Obstructive sleep apnea, hard of hearing, hypertension, abdominal aortic aneurysm s tatus post repair, AICD and other comorbid conditions who presents as a transfer from [facility] with Hypotension and Vtach for 6 seconds. 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 Last night when he checked BP because of dizziness, systolic was in the 80's. Other associated symptoms lightheadednes s. Patient denies any falls, chest pain, headache, fevers, chills, nausea, vomiting, constip ation, palpitations, diarrhea or cough ED findings: Glucose 118, BNP 116, calcium 7.9. ED treatment: IV fluid REVIEW OF SYSTEMS As above, a total of 12 systems reviewed, o/w unremarkable Past Medical History Diagnosis Date Enlarged heart COPD (chronic obstructive pulmonary disease) (HCC) Pacemaker SANTO DOMINGO (hard of hearing) Hypertension Hyperlipidemia AAA (abdominal aortic aneurysm) (HCC) MOISÉS (obstructive sleep apnea) 01/21/2017 Past Surgical History Procedure Laterality Date Pacemaker insertion 01/22/2014 Appendectomy Hernia repair Tumor removal head and neck Hand surgery tube put in to drain infection. Was put out for it as a child Aortic endograft N/A 09/23/2014 Procedure: AORTIC - ENDOGRAFT; Surgeon: Vincent Fields MD; Location: [facility] OR/[facility]; Ser vice: Vascular; Laterality: N/A; Allergies Allergen Reactions Codeine Anaphylaxis and Other [...] daily. Yes Historical Provider Cholecalciferol (VITAMIN D3) 95169 UNITS CAPS Take by mouth. Indications: once a week Ye s Historical Provider fluticasone (FLONASE) 50 MCG/ACT nasal 1 spray by Each Nare route daily. Yes Historical P rovider levothyroxine (SYNTHROID) 75 MCG tablet Take 75 mcg by mouth every morning before breakfast . Pt taking 88 mcg daily Yes Historical Provider lisinopril (ZESTRIL) 10 MG tablet Take 1 tablet by mouth daily. 12/07/16 12/07/17 Yes Nav Foley MD loratadine (CLARITIN) 10 MG tablet Take 10 mg by mouth daily. Yes Historical Provider metoprolol (LOPRESSOR) 25 MG tablet Take 25 mg by mouth 2 (two) times daily. NO Historica l Provider triamcinolone (NASACORT AQ) 55 MCG/ACT nasal inhaler 2 sprays by Each Nare route daily. Historical Provider Toprol XL 25 daily Social History Social History Marital Status: Spouse Name: N/A Number of Children: N/A Years of Education: N/A Social History Main Topics Smoking status: Never Smoker Smokeless tobacco: Never Used Comment: has second hand smoke exposure Alcohol Use: No Comment: very rare Drug Use: No Sexual Activity: Not Asked Other Topics Concern None Social History Narrative Family History Problem Relation Age of Onset Heart defect Mother Heart disease Mother Gout Father CVA Sister Bowel Disease Sister Leukemia Brother PHYSICAL EXAM BP 112/76 mmHg | Pulse 87 | Temp(Src) 98.2 F (36.8 C) (Oral) | Resp 20 | Ht 1.778 m (5' 10") | Wt 123.378 kg (272 lb) | BMI 39.03 kg/m2 | SpO2 93% General Appearance: A & O x 3, no distress, appears stated age. Morbid obesity Head: Normocephalic, without obvious abnormality, atraumatic Eyes: PERRL, conjunctiva/corneas clear, EOM's intact. Ears: Normal external ear canals, no otorrhea Nose: Nares normal, no drainage or sinus tenderness Throat: Lips, mucosa, and tongue normal; gums normal Neck: Supple, symmetrical, trachea; no carotid bruit or JVD Back: Symmetric, no curvature, ROM normal, no CVA tenderness Lungs: Clear to auscultation bilaterally, respirations unlabored Chest Wall: No tenderness or deformity Heart: Regular rate and rhythm, S1 and [...] normal, behavior and judgement normal DATA Results for orders placed or performed during the hospital encounter of 01/20/17 (from the past 24 hour(s)) ED INFORMATION EXCHANGE Collection Time: 01/20/17 10:40 PM Result Value Ref Range SIMONA PRC SIMONA CARE PLAN Brain natriuretic peptide Collection Time: 01/21/17 12:22 AM Result Value Ref Range BRAIN NATRIURETIC PEPTIDE 113 (H) 0 - 100 pg/mL CBC W/Auto Diff (Reflex to Manual) Collection Time: 01/21/17 12:22 AM Result Value Ref Range WBC 11.31 (H) 3.80 - 11.00 K/uL RBC 4.63 4.20 - 5.70 M/uL HGB 14.1 13.2 - 17.0 g/dL HCT 41.3 39.0 - 50.0 % MCV 89.2 80.0 - 100.0 fl MCH 30.4 27.0 - 34.0 pg MCHC 34.1 32.0 - 35.5 g/dL RDW SD 45.1 37 - 53 fl PLT 179 150 - 400 K/uL MPV 7.8 fl DIFF TYPE AUTOMATED NEUTROPHILS 75.29 % LYMPHOCYTES 16.76 % MONOCYTES 5.91 % EOSINOPHILS 1.25 % BASOPHILS 0.79 % NEUTROPHILS ABS 8.51 (H) 1.90 - 7.40 K/uL LYMPHOCYTES ABS 1.90 1.00 - 3.90 K/uL MONOCYTES ABS 0.67 0.00 - 0.80 K/uL EOSINOPHILS ABS 0.14 0.00 - 0.50 K/uL BASOPHILS ABS 0.09 0.00 - 0.10 K/uL Comprehensive metabolic panel Collection Time: 01/21/17 12:22 AM Result Value Ref Range SODIUM 141 135 - 145 mmol/L POTASSIUM 4.2 3.5 - 4.9 mmol/L CHLORIDE 108 99 - 109 mmol/L CO2 31 23 - 32 mmol/L ANION GAP AGAP 7 5 - 20 mmol/L GLUCOSE 118 (H) 65 - 99 mg/dL BUN 12 8 - 25 mg/dL CREATININE 0.89 0.70 - 1.30 mg/dL BUN/CREAT 13 CALCIUM 7.9 (L) 8.5 - 10.5 mg/dL TOTAL PROTEIN 6.1 (L) 6.3 - 8.2 g/dL Albumin 3.2 (L) 3.3 - 4.8 g/dL GLOBULIN 2.9 1.3 - 4.9 g/dL A/G 1.1 1.0 - 2.4 TBIL 0.7 0.1 - 1.5 mg/dL ALK PHOS 57 35 - 115 U/L AST 14 10 - 45 U/L ALT 21 10 - 65 U/L EGFR >60 >60 mL/min/1.73m2 Protime-INR Collection Time: 01/21/17 12:22 AM Result Value Ref Range INR 1.1 Phosphorus Collection Time: 01/21/17 12:22 AM Result Value Ref Range PHOSPHORUS 3.6 2.3 - 4.8 mg/dL Magnesium Collection Time: 01/21/17 12:22 AM Result Value Ref Range MAGNESIUM 2.0 1.7 - 2.4 mg/dL CBC W/Auto Diff (Reflex to Manual) Collection Time: 01/21/17 3:00 AM Result Value Ref Range WBC 10.73 3.80 - 11.00 K/uL RBC 4.85 4.20 - 5.70 M/uL HGB 14.7 13.2 - 17.0 g/dL HCT 44.4 39.0 - 50.0 % MCV 91.4 80.0 - 100.0 fl MCH 30.3 27.0 - 34.0 pg MCHC 33.2 32.0 - 35.5 g/dL RDW SD 47.7 37 - 53 fl PLT 192 150 - 400 K/uL MPV 8.7 fl DIFF TYPE AUTOMATED NEUTROPHILS 74.62 % LYMPHOCYTES 17.58 % MONOCYTES 6.02 % EOSINOPHILS 1.12 % BASOPHILS 0.66 % NEUTROPHILS ABS 8.01 (H) 1.90 - 7.40 K/uL LYMPHOCYTES ABS 1.89 1.00 - 3.90 K/uL MONOCYTES ABS 0.65 0.00 - 0.80 K/uL EOSINOPHILS ABS 0.12 0.00 - 0.50 K/uL BASOPHILS ABS 0.07 0.00 - 0.10 K/uL Basic metabolic panel Collection Time: 01/21/17 3:00 AM Result Value Ref Range SODIUM 141 135 - 145 mmol/L POTASSIUM 4.0 3.5 - 4.9 mmol/L CHLORIDE 105 99 - 109 mmol/L CO2 29 23 - 32 mmol/L ANION GAP AGAP 10 5 - 20 mmol/L GLUCOSE 144 (H) 65 - 99 mg/dL BUN 11 8 - 25 mg/dL CREATININE 0.85 0.70 - 1.30 mg/dL BUN/CREAT 13 CALCIUM 7.9 (L) 8.5 - 10.5 mg/dL EGFR >60 >60 mL/min/1.73m2 Magnesium Collection Time: 01/21/17 3:00 AM Result Value Ref Range MAGNESIUM 2.3 1.7 - 2.4 mg/dL Phosphorus Collection Time: 01/21/17 3:00 AM Result Value Ref Range PHOSPHORUS 3.4 2.3 - 4.8 mg/dL Troponin I Collection Time: 01/21/17 3:00 AM Result Value Ref Range TROPONIN I <0.020 0.00 - 0.10 ng/mL Lipid panel Collection Time: 01/21/17 3:00 AM Result Value Ref Range CHOLESTEROL 156 <200 mg/dL Triglycerides 161 (H) <150 mg/dL HDL CHOL 34 (L) >40 mg/dL LDL CALC 90 <100 mg/dL CK MB Collection Time: 01/21/17 3:00 AM Result Value Ref Range MMB 1.7 0.5 - 3.6 ng/mL CK-MB Index 3.2 CPK Collection Time: 01/21/17 3:00 AM Result Value Ref Range CPK 53 (L) 55 - 400 U/L Echo 04/2015 1. Undetermined rhythm. 2. A limited 2-dimensional [...] is normal. 12. Trace tricuspid regurgitation present. PER DR CARTER ECG from 2322: Paced rhythm at 93 bpm. MA, QRS, QT, and axis are normal. No ST segment elev ations or depression. No significant Q waves. Good R wave progression through the precordial leads. Meets No STEMI criteria for ischemia. In comparison with an old ECG from 11/30/15 t here are no significant changes. This study has been independently viewed and interpre patricia by me. ASSESSMENT & PLAN Principal Problem: Hypotension: -Likely secondary to Toprol XL 25 mg and lisinopril 10 mg -Blood pressure is stable after fluids -Will continue Toprol XL but hold for now the lisinopril -Patient sees Dr Foley. -Cardiac enzymes Active Problems: AICD (automatic cardioverter/defibrillator) present: -In the setting of non-ischemic cardiomyopathy (HCC): -Non-sustained ventricular tachycardia for 6 second -No shocks so far MOISÉS -Unable to tolerate CPAP -Nocturnal O2NC Hyperglycemia: -No hx of DM II -Monitor Admit for observation GI and DVT prophylaxis Primary Care Physician: Carla SARABIA DO 01/21/2017 4:42 AM documented in this enco unter ED Notes Conversion Transaction, Provider Unknown - 01/21/2017 2:20 AM PDTFormatting of this note m ight be different from the original. ED Notes by Jeny Tolentino RN at 01/21/17219 Author: Jeny Tolentino RN Service: (none) Author Type: Registered Nurse Filed: 01/21/17239 Date of Service: 01/21/17219 Status: Signed Dining Service Supervisor: Jeny Tolentino RN (Registered Nurse) Pt SBA to restroom. Steady gate noted. Jeny Tolentino RN 01/21/17239 onver chetna Transaction, Provider Unknown - 01/21/2017 2:02 AM PDT ED Notes by Jeny Tolentino RN at 01/21/17201 Author: Jeny Tolentino RN Service: (none) Author Type: Registered Nurse Filed: 01/21/17201 Date of Service: 01/21/17201 Status: Signed Dining Service Supervisor: Jeny Tolentino RN (Registered Nurse) Dr. Sarabia at bedside. Jeny Tolentino RN 01/21/17201 onver chetna Transaction, Provider Unknown - 01/21/2017 12:27 AM PDT ED Notes by Jeny Tolentino RN at 01/21/1726 Author: Jeny Tolentino RN Service: (none) Author Type: Registered Nurse Filed: 01/21/1726 Date of Service: 01/21/1726 Status: Signed Dining Service Supervisor: Jeny Tolentino RN (Registered Nurse) Family at bedside. Jeny Tolentino RN 01/21/1726 onver chetna Transaction, Provider Unknown - 01/20/2017 11:18 PM PDT ED Notes by Jeny Tolentino RN at 01/20/17 2318 Author: Jeny Tolentino RN Service: (none) Author Type: Registered Nurse Filed: 01/20/172317 Date of Service: 01/20/172317 Status: Signed Dining Service Supervisor: Jeny Tolentino RN (Registered Nurse) Pt assisted to bedside commode. Pt on radiation monitor. Jeny Tolentino RN 01/20/172317 ziel Michelle MD - 01/20/2017 11:10 PM PDTFormatting of this note might be different from the or iginal. ED Provider Notes by Oziel Carter MD at 01/20/172309 Author: Oziel Carter MD Service: Emergency Department Author Type: Physician Filed: 01/21/17100 Date of Service: 01/20/172309 Status: Signed Dining Service Supervisor: Oziel Carter MD (Physician) [facility] Department of Emergency Medicine No flowsheet data found. History of Present Illness Patient Identification Jared Abraham is a 71 y.o. male. Patient information was obtained from patient and EMS personnel. History/Exam limitations: none. Patient presented to the Emergency Department Ambulance Room:12/22 Chief Complaint Chief Complaint Patient presents with Hypotension Palpitations run of Vtach 71 y.o. male with Low blood pressure, lightheadedness and dizziness. Patient states that th e have been changing his blood pressure medications around because his been feeling unwell. He gets lightheaded and dizzy seems to be worse if he stands up or moves. States his blood p ressure was in the 80s today and he is feeling unwell so he went to another hospital. They n oticed that he was hypotensive and slightly tachycardic. The gave him fluids. While there Th ey report that he had a run of ventricular tachycardia for a few seconds but was not recorde d. They state that he almost passed out during this episode. Since that time he has been wel l with no recurrent arrhythmia. He has remained in a ventricular paced rhythm. He sent here for further care. Because of the potential instability of the patient he was sent to the [facility] department as opposed to being directly admitted. Troponins were negative at the [facility] facility as well as the remainder of his workup. Patient states that he feels fine at this time. He does not notice baseline blood pressure is. He states that he believes is secondar y to the lisinopril that was restarted in November. Last year but it was causing hypotension an d had been discontinued. Primary Care Doctor: Carla Juaerz Past Medical History Diagnosis Date Enlarged heart COPD (chronic obstructive pulmonary disease) (HCC) Pacemaker SANTO DOMINGO (hard of hearing) Hypertension Hyperlipidemia AAA (abdominal aortic aneurysm) (HCC) Past Surgical History Procedure Laterality Date Pacemaker insertion 01/22/2014 Appendectomy Hernia repair Tumor removal head and neck Hand surgery tube put in to drain infection. Was put out for it as a child Aortic endograft N/A 09/23/2014 Procedure: AORTIC - ENDOGRAFT; Surgeon: Vincent Fields MD; Location: [facility] OR/[facility]; Ser vice: Vascular; Laterality: N/A; Prior to Admission medications Medication Sig Start Date End Date Taking? Authorizing Provider aspirin 81 MG EC tablet Take 81 mg by mouth daily. Historical Provider carvedilol (COREG) 3.125 MG tablet Take 1 tablet by mouth 2 (two) times daily. 12/07/1612/07 Nav Foley MD cetirizine (ZYRTEC) 10 MG tablet Take 10 mg by mouth daily. Historical Provider Cholecalciferol (VITAMIN D3) 77810 UNITS CAPS Take by mouth. Historical Provider fluticasone (FLONASE) 50 MCG/ACT nasal 1 spray by Each Nare route daily. Historical Prov ider levothyroxine (SYNTHROID) 75 MCG tablet Take 75 mcg by mouth every morning before breakfast . Pt taking 88 mcg daily Historical Provider lisinopril (ZESTRIL) 10 MG tablet Take 1 tablet by mouth daily. Patient taking differently: Take 10 mg by mouth daily. Pt stated taking 2.5 mg daily. 12/07/17 Nav Foley MD loratadine (CLARITIN) 10 MG tablet Take 10 mg by mouth daily. Historical Provider tiotropium (SPIRIVA) 18 MCG inhalation capsule Inhale 1 capsule into the lungs daily. 6 Khalif Chambers MD triamcinolone (NASACORT AQ) 55 MCG/ACT nasal inhaler 2 sprays by Each Nare route daily. Historical Provider Allergies Allergen Reactions Codeine Anaphylaxis and Other (See Comments) Heart stops Demerol [Meperidine] Other (See Comments) and Angioedema Heart stops Norflex [Orphenadrine] Anaphylaxis and Other (See Comments) Heart stops Percodan [Oxycodone-Aspirin] Other (See Comments) Heart Stops Nitroglycerin Other (See Comments) Liquid nitro Heart stops Penicillins Rash Social History Social History Marital Status: Spouse Name: N/A Number of Children: N/A Years of Education: N/A Occupational History Not on file. Social History Main Topics Smoking status: Never Smoker Smokeless tobacco: Never Used Comment: has second hand smoke exposure Alcohol Use: No Comment: very rare Drug Use: No Sexual Activity: Not on file Other Topics Concern Not on file Social History Narrative Family History Problem Relation Age of Onset Heart defect Mother Heart disease Mother Gout Father CVA Sister Bowel Disease Sister Leukemia Brother Review of Systems Positive for: Hypertension, lightheadedness and dizziness, arrhythmia, near syncope No fever, chills, nausea or vomiting. No vision changes, difficulty breathing. No headache, chest pain, abdominal pain, weakness or rash. No difficulty with urination or bowel movements. No other complaints. See HPI for further relevant details. All systems otherwise negative, except as recorded above and as recorded in the HPI. Physical Exam Filed Vitals: 01/20/17 2305 01/20/17 2354 01/21/17 0026 BP: 108/63 107/58 112/66 Pulse: 98 87 86 Temp: 98.8 F (37.1 C) TempSrc: Oral Resp: 20 20 20 SpO2: 98% 95% 96% INTERPRETATION OF VITALS Pulse Oximetry interpretation: Normal Otherwise normal PHYSICAL EXAM Appearance: Alert. No acute distress. Head: Normal external exam. Eyes: EOMI, PERRL, no scleral icterus. ENT: Normal external ENT inspection. Neck: Supple. FROM. CVS: Normal heart rate and rhythm. Heart sounds normal. Pulses normal. Respiratory: No respiratory distress. No wheezing, rales, or rhonchi. Abdomen: Soft and nontender. No rebound or guarding. Genitourinary: Deferred. Back: Moves without difficulty. Skin: Skin warm and dry. Extremities: No deformity. Neuro: Moves all extremities. No gross deficit. Medical Decision Making and Emergency Department Course ED Department Course: 11:10 PM Jared Abraham is a 71 y.o. male who presents with a chief complaint of Hypotension, n ear-syncope, arrhythmia. Patient's workup there revealed no underlying cause for his symptom s. 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 He is clinical ly stable at this time. We will repeat ECG and troponin. I will have the nurses interrogate his pacer to see if there is any recording of his reported arrhythmia. ECG shows ventricular paced rhythm with occasional PVCs.. Report from [facility] that the patient had a 6 second episode of ventricular tachycardia to day around 8:00. It terminated by itself with no intervention from the device. No other sign ificant events. In reviewing the patient's blood pressure he tends to run around 110 115 systolic so he is not significantly low at this time. 12:00 AM Discussed the case with Dr. Ellsworth who accepts the patient for admission. The patient was not hypertensive in the Emergency Department today. Differential for hype rtension in the emergency department is extensive and not limited to pain, anxiety, establis hed and uncontrolled hypertension, new hypertension, poor medication compliance vs other. Patient will follow up as an outpatient for ongoing concerns and is welcome to return for re -evaluation at any time. . Records Reviewed Old medical records. Previous electrocardiograms. Nursing notes. Ambulance run sheet. Previous radiology studies. Laboratory Evaluation Results None Lab Interpretation I have reviewed lab results from the emergency department workup and abnormal results have been posted to the chart. Pertinent positive and negative findings have been addressed appr opriately. Radiology and ECG Evaluation Imaging Results None ECG from 2322: Paced rhythm at 93 bpm. MA, QRS, QT, and axis are normal. No ST segment elev ations or depression. No significant Q waves. Good R wave progression through the precordial leads. Meets No STEMI criteria for ischemia. In comparison with an old ECG from 11/30/15 t here are no significant changes. This study has been independently viewed and interpreted by me. ED Diagnoses Final diagnoses Hypotension due to drugs Non-sustained ventricular tachycardia (HCC) Disposition: ED Disposition Admit/Observation Bed request special needs: Fall risk Diagnosis?: orthostatic hypotension Follow-up Information None Discharge Medications: New Prescriptions No new medications This document has been prepared with a voice recognition system. The possibility of "sound alike" hl7 interface developer errors, addition and/or deletions may occur. If there is any question p lease contact the author of the document. Procedures Additional Documentation Procedures Oziel Carter MD 01/21/17 0101 onversion Transactio n, Provider Unknown - 01/20/2017 11:05 PM PDT ED Notes by Ruby Mercado RN at 01/20/172304 Author: Ruby Mercado RN Service: (none) Author Type: Registered Nurse Filed: 01/20/172304 Date of Service: 01/20/172304 Status: Signed Dining Service Supervisor: Ruby Mercado RN (Registered Nurse) Bed: 05 Expected date: Expected time: Means of arrival: Comments: [facility] [place] onver chetna Transaction, Provider Unknown - 01/20/2017 10:13 PM PDT ED Notes by Ruby Mercado RN at 01/20/172212 Author: Ruby Mercado RN Service: (none) Author Type: Registered Nurse Filed: 01/20/172218 Date of Service: 01/20/172212 Status: Signed Dining Service Supervisor: Ruby Mercado RN (Registered Nurse) Report from Sue at [facility]: Pt reports 2 day history of feeling "unwell." pt state s he was started on lisinopril 10mg, was taking for 1 week prior to visit. Initial SBP 80. H ospital staff gave 2L NS for hypotension. Pt had short run of Vtach after fluids and became unresponsive for short time during episode. Transfer to our facility for cardiology. No prio r history of VT. Ruby Mercado RN 01/20/172218 docume nted in this encounter Plan of [...] DR | | | | | | [place] [address] | | | | | | [phone] | | | | | | | [...] | | | | | | ACUTE IN Testing | | | | | | performed at [facility];[address] | | | | | [facility];[place], [place] | | | | | | [address] | | | | + + + [...] EXTERNAL | | | | performed at [facility];[address] | [address] | | | [address];[place], [place] | | | | | | [address] | | | | + + + [...] + + | [facility] | EXTERNAL LAB | + + [...] | | | | | | ACUTE IN Testing | | | | | | performed at [facility] | | | | | | [facility];[place] | | | | | | [address] | | | | + + + [...] | performed at [facility];[address] | | | | | | [facility];[place], [place] | | | | | | [address] | | | | + + + [...] EXTERNAL | | | | performed at [facility];[address] | | LAB | | | | [address]an [address];[place] | | | | | | [address] | | | | + + + [...] | | | | | | ACUTE IN Testing | | | | | | performed at [facility];[address] | | | | | | [facility];[place], [place] | | | | | | [address] | | | | + + + [...] + + + | Red Blood | 4.85 | 4.20 - 5.70 | EXTERNAL | | | Cells | | M/uL | LAB | | | Counted | | | | | + + + + + + | Hemoglobin | 14.7 | 13.2 - 17.0 | [...] | | | Basophils | performed at [facility], [address] | K/uL | LAB | | | | [address], | | | | | | [place] [address] | | | | + + + [...] EXTERNAL | | | | performed at [facility];[address] | | LAB | | | | Shannan [address]iera;[place] | | | | | | [address] | | | | + + + [...] EXTERNAL | | | | performed at [facility];[address] | | LAB | | | | [address];[place], [place] | | | | | | [address] | | | | + + + [...] EXTERNAL | | | | performed at [facility];[address] | | LAB | | | | [place]iera;[place] | | | | | | [address] | | | | + + + [...] + + + + | LDL, | 90Comment: Testing | mg/dL | EXTERNAL | | | Calculated | performed at [facility], [address] | | LAB | | | | [address], | | | | | | [place] [address] | | | | + + + [...] | | | | | | at [facility];[address] [place] [address] | | | | | | [facility];[place] [address] | | | | + + + [...] | performed at [facility];[address] | | | | | | [facility];[place], [place] | | | | | | [address] | | | | + + + [...] + + + | Red Blood | 4.63 | 4.20 - 5.70 | [...] | | | Basophils | performed at [facility];[address] | K/uL | LAB | | | | [address];[place], [place] | | | | | | [address] | | | | + + + [...] EXTERNAL | | | | performed at [facility];[address] | | LAB | | | [address];[place], [place] | | | | | | [address] | | | | + + + [...] EXTERNAL | | | | performed at [facility];[address] | | LAB | | | | [address];[place] | | | | | | [address] | | | | + + + [...] EXTERNAL | | | | performed at [facility];[address] | | LAB | | | | [address];[place], [place] | | | | | | [address] | | | | + + + [...] | | | | | | at [facility];[address] [place] [address] | | | | | | [facility];[place] [address] | | | | + + + [...] of | | | | | | 30-NOV-2015 | | | | | | 15:16,Previous [...] (500), | | | | | | senior technical editor Desiree Gutierres | | | | | | (18) on 01/23/2017 8:15:00 | | | | | | AM | | | | + + + + + + + + | Specimen | + + | | + + + + + | Narrative | Performed At | + + + | [facility] | EXTERNAL LAB | [...]
--- OUTSIDE RECORDS SUMMARY | ~2020-02-20 | XMS | Encounter Summary ---
Demographics + + + | Address | [address] | | | [place] [address] | + + + | Home Phone [...] Providers + +------+ + | Care Rn Transfer Name | Role | Phone | + [...] + + | 07/02/ | Telephone | [facility] | Constantin Chavez, | Cardiac Problem | | 2018 | | CARDIOLOGY [place] | [address] | | | | | [address] | [facility], | | | | | [place], [place] | [place] [address] | | | | | [address] | [phone] | | | | | [phone] | | | +--------+ + + + [...] DR | | | | | | [place] [address] | | | | | | [phone] | | | | | | | | +--------+ + + + + | 04/28/ | Procedure | Cardiology | | | | 2019 | visit | | | | +--------+ + + + + documented as of this encounter Visit Diagnoses Not on filedocumented in this encounter
--- OUTSIDE RECORDS SUMMARY | ~2020-02-20 | XMS | Encounter Summary ---
Demographics + + + | Address | [address] | | | [place] [address] | + + + | Home Phone [...] Team Providers + +------+ + | Care Structural Shop Helper Name | Role | Phone | [...] + + | 07/31/ | Telephone | [facility] | Mary Tipton ANP | Patient Education | | 2019 | | CARDIOLOGY INDUSTRY | [address] | | | | | [address] | [place], [place] | | | | | [place], [place] | [address] | | | | | [address] | | | | | | [phone] | | | +--------+ + + + [...] | | | | | [place] [address] | | | | | | [phone] | | | | | | | | +--------+ + + + + | 04/28/ | Procedure | Cardiology | | | | 2019 | visit | | | | +--------+ + + + + documented as of this encounter Visit Diagnoses Not on filedocumented in this encounter"
--- OUTSIDE RECORDS SUMMARY | ~2020-02-20 | XMS | Encounter Summary ---
Demographics + + + | Address | [address] | | | [place] [address] | + + + | Home Phone [...] Team Providers + +------+ + | Care Farebox Repairer Name | Role | Phone | + +------+ + | Carla Murphy | PCP | | | PA-C | | | + +------+ + Encounter Details +--------+ + + + + | Date | Type | Department | Care Team | Description | +--------+ + + + + | 09/16/ | Telephone | [facility] | Kimmie Wills | | | 2020 | | CENTER CV INTRA OP | MD Saravanan [address] | | | | | [address] | [address] [place], [place] | | | | | [place], [place] | [address] | | | | | [address] | | | | | | [phone] | | | +--------+ + + + [...] DR | | | | | | [place] [address] | | | | | | [phone] | | | | | | | | +--------+ + + + + | 04/28/ | Procedure | Cardiology | | | | 2019 | visit | | | | +--------+ + + + + documented as of this encounter Visit Diagnoses Not on filedocumented in this encounter"
--- OUTSIDE RECORDS SUMMARY | ~2020-02-20 | XMS | Encounter Summary ---
Demographics + + + | Address | [address] | | | [place] [address] | + + + | Home Phone [...] Team Providers + +------+ + | Care Communications Associate Name | Role | Phone | + [...] | | | | | cardiomyopat | [place], | [place], [place] | | | | | hy (HCC) | [place] [address] | [address] Phone: | | | | | | Phone: | [phone] | | | | | | [phone] | Fax: | | | | | | Fax: | [phone] | | | | | | [phone] | | + + + + + + + Reason for Visit + + + | Reason | Comments | + + + | Follow-up | | + + + Encounter Details +--------+---------+ + + + | Date | Type | Department | Care Team | Description | +--------+---------+ + + + | 10/21/ | Office | [facility] | Nav Foley, | 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 Cholecalciferol (VITAMIN D3) 95191 UNITS CAPS Take 5,000 Int'l Units by [...] also deals with sleep apnea, perhaps in [place]. We will see him again in 6 [...] DR | | | | | | [place] [address] | | | | | | [phone] | | | | | | | [...] Non-ischemic | Ordered: 10/22/2019 | | to [facility] Congestive | Referral | e | cardiomyopathy [...]
--- OUTSIDE RECORDS SUMMARY | ~2020-02-20 | XMS | Encounter Summary ---
Demographics + + + | Address | [address] | | | [place] [address] | + + + | Home Phone [...] Team Providers + +------+ + | Care Knowledge Manager Name | Role | Phone | [...] | | | | | | [place] [address] | | | | | | [phone] | | | +--------+ + + + [...] DR | | | | | | [place] [address] | | | | | | [phone] | | | | | | | [...]
--- OUTSIDE RECORDS SUMMARY | ~2020-02-20 | XMS | Encounter Summary ---
Demographics + + + | Address | [address] | | | [place] [address] | + + + | Home Phone [...] Team Providers + +------+ + | Care Facility Supervisor Name | Role | Phone | + +------+ + PCP | Unavailable | + +------+ + Encounter Details +--------+ + + + + | Date | Type | Department | Care Team | Description | +--------+ + + + + | 05/11/ | Hospital | [facility] | Conversion | Pain | | 2015 | Encounter | CONVERSION [address] | Transaction, | | | | | [address] | Provider Unknown | | | | | [place], [place] | [phone] | | | | | [address] | | | | | | [phone] | | | +--------+ + + + [...] DR | | | | | | [place] [address] | | | | | | [phone] | | | | | | | [...]
--- OUTSIDE RECORDS SUMMARY | ~2020-02-20 | XMS | Encounter Summary ---
Demographics + + + | Address | [address] | | | [place] [address] | + + + | Home Phone [...] Team Providers + +------+ + | Care Sleeping Car Conductor Name | Role | Phone | + +------+ + | Carla Murphy | PCP | | | PA-C | | | + +------+ + Encounter Details +--------+ + + + + | Date | Type | Department | Care Team | Description | +--------+ + + + + | 08/17/ | Hospital | [facility] | Therese Sarabia DO | Syncope, unspecified | | 2018 - | Encounter | [facility] | [address] | syncope type; | | | | CARE [address]LO[address] | [place] [address] | V-tach ([facility]) | | 08/19/ | | [address] | [phone] | | | 2017 | | [place], [place] | | | | | | [address] | | | | | | [phone] | | | +--------+ + + + [...] Summaries by Poli Christine MD at 08/19/18 1548 Author: Poli Christine MD Service: (none) Author Type: Physician Filed: 08/19/18 1571 Date of Service: 08/19/18 9073 Status: Signed Procedure Rn: Poli Christine MD (Physician) [facility] Service: Hospitalist Discharge Summary Date of [...] discharge procedures on file. Follow up: [facility] Emergency Department [address] [facility] [address] Go to If symptoms worsen Carla Murphy PA-C [address] [place] [address] Schedule an appointment [...] 0 Commonly known as: GLUCOPHAGE Vitamin D3 47988 units Caps Refills: 0 You might also [...] (none) Author Type: Registered Nurse Filed: 08/19/18 3464 Date of Service: 08/19/181445 Status: Signed Procedure Rn: Milagros Kirkland RN (Registered Nurse) Discharge paperwork [...] 12614 Date of Service: 08/19/18613 Status: Signed Procedure Rn: Naveen Caldwell, RN (Registered Nurse) Pt having [...] 08/18/182054 Date of Service: 08/18/182045 Status: Signed Procedure Rn: Poli Christine MD (Physician) [facility] Service: Hospitalist Progress Note Hospital Day: [...] failure with depressed EF, sta tus post ICD/MANAGER PRESENTATION insertion. Had been on digoxin outpatient. Digoxin [...] Note by Milagros Kirkland RN at 08/18/18 5512 Author: Milagros Kirkland RN Service: (none) Author Type: Registered Nurse Filed: 08/18/18 4090 Date of Service: 08/18/18 8678 Status: Addendum Procedure Rn: Milagros Kirkland RN (Registered Nurse) Related Notes: [...] Date of Service: 08/18/18 150 Status: Signed Procedure Rn: Milagros Kirkland RN (Registered Nurse) Assumed care. Report from KEEGAN Clovin. onver chetna Transaction, Provider Unknown - 08/18/2018 2:28 PM PST Nurse Progress Note by Marii Garza RN at 08/18/18 142 Author: Marii Garza RN Service: (none) Author Type: Registered Nurse Filed: 08/18/18 1428 Date of Service: 08/18/181427 Status: Signed Procedure Rn: Marii Garza RN (Registered Nurse) Patients pain went from a 3 to a 1. He does not want morphine at this time. Will continue t o monitor. onver chetna Transaction, Provider Unknown - 08/18/2018 1:06 PM PST Progress Notes by Malena Ferro RPH at 08/18/18 1306 Author: Maelna Ferro RPH Service: Pharmacy Author Type: Pharmacist Filed: 08/18/18 1306 Date of Service: 08/18/18 1306 Status: Signed Procedure Rn: Malena Ferro RPH (Pharmacist) Renal Dosing Monitoring: [...] 1113 Date of Service: 08/18/181058 Status: Signed Procedure Rn: Yoon Michele RN (Registered Nurse) 08/18/18 1000 [...] discussed discharge planning. Pt resides alone in [place] but is indep wi th all his ADL's. No use of home O2, no dme,no HD. Pt on plavix. Plans to return home Patient's PCP is: Nely Murphy Patient's insurance: medicare/[employer] Coverage concerns: Medication coverage/concerns: Rx Bedside [...] Date of Service: 08/18/18 07 Status: Signed Procedure Rn: Alize Rosas RN (Registered Nurse) Patient arrived [...] 08/18/18608 Date of Service: 08/18/18608 Status: Signed Procedure Rn: Therese Sarabia DO (Physician) Dr. Roldan consulted documented in this enco unter H&P Notes Therese Sarabia DO - 08/17/2018 10:54 PM PSTFormatting of this note might be different from t he original. H&P by Therese Sarabia DO at 08/17/182253 Author: Therese Sarabia DO Service: Hospitalist Author Type: Physician Filed: 08/18/18 044 Date of Service: 08/17/182253 Status: Signed Procedure Rn: Therese Sarabia DO (Physician) [facility] Service: Hospitalist Admission History & Physical [...] past medical history of V. 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 tach a nd syncopal episode in the setting of a XT MANAGER PRESENTATION-D, patient in need of breaker tender evaluation . He reported sudden onset LOC at around 1657 while trying to sit on the toilet, no head tra aissatou but found himself on the floor. After passing out and while going to [facility] ER, he h ad chest pain which [...] factors for DVT/PE: none. Previous cardiac testing: MANAGER PRESENTATION-D. Patient reports episodes of chest pain, fatigue, upset stomach since digoxin started and metoprolol increased 2 week s ago. Those medications prescribed by Dr Chavez. Patient was in his usual state health befor e passing out. Medtronic quick look: parameter lower rate 60 bpm, upper track 140 and upper sensor 140 bpm . Long-Term >171 bpm and VF ON >188 bpm. Per RN report MANAGER PRESENTATION program to give a shock if VT is sustained for 30 seconds, patient's VT lasted 27 seconds before he passed out. Medications giving at the [place] emergency room: Aspirin, morphine, IV fluids, REVIEW OF SYSTEMS As above, a total of 12 systems reviewed, o/w unremarkable Past Medical History Diagnosis Date AAA (abdominal aortic aneurysm) (HCC) COPD (chronic obstructive pulmonary disease) (HCC) Diabetes mellitus (HCC) pre diabetic per PCP Enlarged heart [place] (hard of hearing) Hyperlipidemia Hypertension MOISÉS (obstructive sleep apnea) 01/21/2017 Pacemaker Past Surgical History Procedure Laterality Date AORTIC ENDOGRAFT N/A 09/23/2014 Procedure: AORTIC - ENDOGRAFT; Surgeon: Vincent Fields MD; Location: [facility] OR/MACHINE CERAMIC COATER; Serv ice: Vascular; Laterality: N/A; APPENDECTOMY HAND [...] daily. Yes Historical Provider Cholecalciferol (VITAMIN D3) 30973 UNITS CAPS Take 5,000 Int'l Units by [...] the last 72 hours. IMAGING Data from [facility] ER: Chest x-ray impression: shallow inspiration, equivocal congestive heart failure changes WBC 12.5, hemoglobin 14.7, hematocrit 44.1, platelets 176, INR 0.9, glucose 94, BUN 18, cre atinine 0.92, sodium 140, potassium 3.8, chloride 101, carbon dioxide 32, calcium 8.9, album in 3.8, total protein 6.0, total bilirubin 1.6, AST 14, ALT 20, lipase 24, troponin less amanda n 0.01 x 2 EK:08 from [facility] Normal sinus rhythm at 87 bmp suspect unspecified pacemaker failure. Normal IA and LATESHA Atrial sensed ventricular paced rhythm Normal QRS and [place] 158 ms Abnormal EKG Normal QT and QTc Normal ST/T without acute ischemic changes Interpreted by Jose Luis Varela DO ASSESSMENT & PLAN Principal Problem: V tach (HCC): -Hx of NICC -Funds Development Director Dr Chavez and Dr Joy -MANAGER PRESENTATION-D setting high threshold versus failure -We will discontinue digoxin which patient report causing problems -Digoxin level -Funds Development Director consultation in the morning -Continue metoprolol at [...] Date of Service: 08/18/18 0754 Status: Signed Procedure Rn: Efraín Roldan MD (Physician) Consult Orders: 1. Inpatient consult to Cardiology [[id number]] ordered by Therese Sarabia DO at 08/18/[address] [facility] Service: Cardiology Initial Consult Note Name of Warehouse Delivery Manager: Efraín Roldan MD Date of Admission: 08/17/2018 [...] diabetic per PCP Enlarged heart [place] (hard of hearing) Hyperlipidemia Hypertension MOIS[place]S (obstructive sleep apnea) 01/21/2017 Pacemaker Past Surgical History Procedure Laterality Date AORTIC ENDOGRAFT N/A 09/23/2014 Procedure: AORTIC - ENDOGRAFT; Surgeon: Vincent Fields MD; Location: [facility] OR/MACHINE CERAMIC COATER; Serv ice: Vascular; Laterality: N/A; APPENDECTOMY HAND SURGERY tube put in to drain infection. Was put out for it as a child HERNIA REPAIR PACEMAKER INSERTION 01/22/2014 TUMOR REMOVAL head and neck MEDICATIONS Home Medications Prescriptions Prior to Admission Medication Sig Dispense Refill Last Dose aspirin 81 MG EC tablet Take 81 mg by mouth daily. Taking Cholecalciferol (VITAMIN D3) 72119 UNITS CAPS Take 5,000 Int'l Units by [...] cardiomyopathy. November 05, 2008. Normal coronaries. 5. ICD/MANAGER PRESENTATION insertion. January 27, 2010. Medtronic. May 09, [...] 08/18/1849 Date of Service: 08/18/1848 Status: Signed Procedure Rn: Amanda Tejada RN (Registered Nurse) Family member [...] 08/17/182258 Date of Service: 08/17/182258 Status: Signed Procedure Rn: Jhonny Street RN (Registered Nurse) Code cart [...] 0404 Date of Service: 08/17/182241 Status: Signed Procedure Rn: Jose Luis Varela DO (Physician) [facility] Department of Emergency Medicine Pre-arrival Provider: Another ED Provider Name: [facility] Pertinent History and Concerns: Hx AICD and AAA repair. had a syncopal episode using the ba throom. Since then he has been having stuttering chest pain. Pacer interrogated which showed 18 seconds of subthreshold VT of 177 bpm (threshold of AICD is 180). Patient's breaker tender s are Dr. Joy and Dr. Chavez [...] any other symptoms at this time. Care BEVERAGE INSPECTION MACHINE TENDER was reported. PCP: Carla Murphy Past Medical History Diagnosis Date AAA (abdominal aortic aneurysm) (HCC) COPD (chronic obstructive pulmonary disease) (HCC) Diabetes mellitus (HCC) pre diabetic per PCP Enlarged heart [place] (hard of hearing) Hyperlipidemia Hypertension MOIS[place] (obstructive sleep apnea) 01/21/2017 Pacemaker Past Surgical History Procedure Laterality Date AORTIC ENDOGRAFT N/A 09/23/2014 Procedure: AORTIC - ENDOGRAFT; Surgeon: Vincent Fields MD; Location: [facility] OR/MACHINE CERAMIC COATER; Serv ice: Vascular; Laterality: N/A; APPENDECTOMY HAND SURGERY tube put in to drain infection. Was put out for it as a child HERNIA REPAIR PACEMAKER INSERTION 01/22/2014 TUMOR REMOVAL head and neck Prior to Admission medications Medication Sig Start Date End Date Taking? Authorizing Provider aspirin 81 MG EC tablet Take 81 mg by mouth daily. Yes Historical Provider Cholecalciferol (VITAMIN D3) 60414 UNITS CAPS Take 5,000 Int'l Units by [...] CV/Resp: Positive for chest pain Negative for coxjgdbdi-[id number], cough GI: Positive for nausea Negative for [...] Evaluation Imaging Results None Imaging done at [facility] 17:17 Impression: Shallow inspirations. Equivocal congestion failure changes. EK:08 Normal sinus rhythm at 87 bmp suspect unspecified pacemaker failure. Normal IA and [place] Atrial sensed ventricular paced rhythm Normal QRS and [place] 158 ms Abnormal EKG Normal QT and QTc Normal ST/T without acute ischemic changes EKG dated 12 unchanged in comparison to todays EKG. Interpreted by Jose Luis Varela DO EKG at : 22:32 Atrial- sensed ventricular paced rhythm with occasional premature ventricular complexes at 74 bmp Normal IA and [place] Normal QRS and [place] Normal QT and QTc Normal ST/T without acute ischemic changes EKG dated 08/17/18 unchanged in comparison to todays EKG. Interpreted by Jose Luis Varela DO ED Diagnoses Final diagnoses Syncope, unspecified syncope type V-tach (HCC) Disposition: ED Disposition ED Disposition Condition Comment Admit/Observation Bed request special needs: None Diagnosis?: vtach Follow-up Information Follow up With Specialties Details Why Contact Info [facility] Emergency Department Emergency Medicine Go to If symptoms worsen [address] [facility] [address] Carla Murphy PA-C Family Medicine Schedule an appointment as soon as possible for a visit in 1 week For follow up in one week [address] [place] [phone] Discharge Medications: Discharge [...] 08/17/182228 Date of Service: 08/17/182228 Status: Signed Procedure Rn: Ruby Dangelo RN (Registered Nurse) Bed: 03 Expected date: Expected time: Means of arrival: Comments: [place] RN 08/17/182228 onver chetna Jose, Provider Unknown - 08/17/2018 9:18 PM PST ED Notes by Ruby Dangelo RN at 08/17/182117 Author: Ruby Dangelo RN Service: (none) Author Type: Registered Nurse Filed: 08/17/182125 Date of Service: 08/17/182117 Status: Signed Procedure Rn: Ruby Dangelo RN (Registered Nurse) Report from KEEGAN Shaffer at [facility]: pt states he has been feeling [...] list documented and verified by pharmacist per [facility]. Arrival to our ER by ground ambulance at 2200. Ruby Dangelo RN 08/17/182125 docume nted in this encounter Miscellaneous Notes Plan of Care - Conversion Transaction, Provider Unknown - 08/19/2018 10:45 AM PST Plan of Care by Milagros Kirkland RN at 08/19/181044 Author: Milagros Kirkland RN Service: (none) Author Type: Registered Nurse Filed: 08/19/181044 Date of Service: 08/19/181044 Status: Signed Procedure Rn: Milagros Kirkland RN (Registered Nurse) Problem: Safety [...] 08/19/18118 Date of Service: 08/19/18118 Status: Signed Procedure Rn: Naveen Caldwell RN (Registered Nurse) Problem: Pain [...] 08/18/181040 Date of Service: 08/18/181040 Status: Signed Procedure Rn: Marii Garza RN (Registered Nurse) Problem: Safety [...] 08/18/18142 Date of Service: 08/18/18142 Status: Signed Procedure Rn: Alize Rosas RN (Registered Nurse) Problem: Safety [...] DR | | | | | | [place] [address] | | | | | | [phone] | | | | | | | [...] | | | Fingerstick | performed at [facility];[address] | | LAB | | | | [address];[place] | | | | | | [address] | | | | + + + [...] | | | Fingerstick | performed at [facility];[address] | | LAB | | | | [address];[place], [place] | | | | | | [address] | | | | + + + [...] | | | Fingerstick | performed at [facility];[address] | | LAB | | | | [address];[place] | | | | | | [address] | | | | + + + [...] | | | Fingerstick | performed at [facility];[address] | | LAB | | | | [address];[place] | | | | | | [address] | | | | + + + [...] PDT FRANCI HOLT CAROTID DOPPLER, | | [id number]/30/2018 10:53 AM HISTORY:73 years. Male. Syncope. Ventricular [...] | | | Fingerstick | performed at [facility];[address] | | LAB | | | | [address];[place] | | | | | | [address] | | | | + + + [...] | | | | | | ACUTE [place] Testing | | | | | | performed at [facility] | | | | | | [facility];[place], [place] | | | | | | [address] | | | | + + + [...] | | Basophils | performed at [facility], [address] | [address] | LAB | | | | [address], | | | | | | [place] [address] | | | | + + + [...] | | | | | [place] [address] | | | | + + + [...] | | | | performed at [facility], [address] | | LAB | | | | [address], | | | | | | [place] [address] | | | | + + + [...] | | | | performed at [facility], [address] | | LAB | | | | [address], | | | | | | [place] [address] | | | | + + + [...] + + | Hemoglobin | 5.5Comment: [place] | 4.0 - 6.0 % | EXTERNAL [...] | | | | performed at [facility], [address] | | | | | | [facility], | | | | | | [place] [address] | | | | + + + [...] EXTERNAL | | | | performed at [facility];[address] | | LAB | | | | [address];[place] | | | | | | [address] | | | | + + + [...] | | | level | performed at [facility];[address] | ng/mL | LAB | | | | [address];[place], [place] | | | | | | [address] | | | | + + + [...] | | | Calculated | performed at [facility], [address] | | LAB | | | | [address], | | | | | | [place] [address] | | | | + + + [...] | | | | | [place] [address] | | | | + + + [...] + + | Historically converted procedure from [facility] Epic environment | EXTERNAL LAB | + [...] | | | Fingerstick | performed at [facility];[address] | | LAB | | | | [address];[place] | | | | | | [address] | | | | + + + [...] | | | | | | ACUTE [place] Testing | | | | | | performed at [facility];[address] | | | | | | [facility];[place], [place] | | | | | | [address] | | | | + + + [...] LAB | | | | performed at [facility];[address] | | | | | | [address];[place] | | | | | | [address] | | | | + + + [...] | | | | | ONLY, -COMPUTER ([id number]), | | | | | | videotape editor Alyson Booth | | | | | | (79) on 08/19/2018 | | | | | | 2:27:53 AM | | | | + + + + + + + + | Specimen | + + | | + + + + + | Narrative | Performed At | + + + | Historically converted procedure from [employer] Epic environment | EXTERNAL LAB | + [...]
--- OUTSIDE RECORDS SUMMARY | ~2020-02-20 | XMS | Encounter Summary ---
Demographics + + + | Address | [address] | | | [place] [address] | + + + | Home Phone [...] + +------+ + | Care Director Of Orthopedics Name | Role | Phone | + +------+ + PCP | Unavailable | + +------+ + Encounter Details +--------+ + + + + | Date | Type | Department | Care Team | Description | +--------+ + + + + | 05/17/ | Hospital | [facility] | Conversion | Cardiomyopathy | | 2015 - | Encounter | [facility] | Transaction, | ([facility]); S/P AAA | | | | CLINICAL DECISION | Provider Unknown | repair | | 05/18/ | | [address] [facility] | [phone] | | | 2015 | | [place], [place] | | | | | | [address] | Terrance Martinez MD | | | | | [phone] | PhD [address] [facility] | | | | | | [address] | | | | | | [place] [address] | | | | | | [phone] | | | | | | | [...] 1103 Date of Service: 05/18/15830 Status: Signed Appliance Installer: MORRO Lin (Nurse Practitioner) [facility] PATIENT NAME: Franci Velázquez : [...] Note by Cyndee Warner RN at 05/18/15 6257 Author: Cyndee Warner RN Service: (none) Author Type: Registered Nurse Filed: 05/18/15 5404 Date of Service: 09/29/15 1137 Status: Signed Appliance Installer: Cyndee Warner RN (Registered Nurse) Patient discharge instructions were reviewed with patient at bedside. Patient states they u nderstand instructions.No concerns or questions voiced at this time. IV removed. Patient emmanuel eugene be discharging home to [place] with a ride from his friend. onver chetna Transaction, Provider Unknown - 05/18/2015 10:29 AM PDT Nurse Progress Note by Cyndee Warner RN at 05/18/15 1029 Author: Cyndee Warner RN Service: (none) Author Type: Registered Nurse Filed: 05/18/15 1030 Date of Service: 05/18/15 1029 Status: Signed Appliance Installer: Cyndee Warner RN (Registered Nurse) Patient c/o [...] Date of Service: 05/18/15 1018 Status: Signed Appliance Installer: Mackenzie Caballero RN (Registered Nurse) 05/18/15 1017 [...] y.o., male who lives alone in a [facility]. Pt did not identify financial, [...] home, friend Mili to transport home to [place], [place]ACKENZIE CABALLERO onver chetna Transaction, Provider Unknown - 05/17/2015 10:51 PM PDT Nurse Progress Note by Melva Harper RN at 05/17/152250 Author: Melva Harper RN Service: (none) Author Type: Registered Nurse Filed: 05/17/152252 Date of Service: 05/17/152250 Status: Signed Appliance Installer: Melva Harper RN (Registered Nurse) Called Dr [...] 05/17/15741 Date of Service: 05/17/15741 Status: Signed Appliance Installer: Terrance Martinez MD (Physician) [facility] Service: Cardiology Pre-Operative History & [...] referred to electrophysiology by Nav romano Md [address] [place] [address] [place] [address] REASON FOR CONSULTATION: Chief Complaint Patient presents with Establish Care ICD at [facility] in January- bygonzalez pt ASSESSMENT & PLAN: 69-year-old male with history of nonischemic cardiomyopathy, NYHA class II, status post imp lantation of a MDT CARTON FORMING MACHINE ADJUSTER-D by Dr. Chiang in January 2010, obesity and strong suspicion for sleep apnea , recent AAA repair (09/2014). Device is now at [facility]. 1. MDT CARTON FORMING MACHINE ADJUSTER-D: Tripped [facility] on March 15, 2015. BiV pacing 99.6%. Patient has a Medtronic Consu lta CARTON FORMING MACHINE ADJUSTER-D [id number]. 5076 atrial lead Medtronic. 6947 Sprint Quattro [...] given severe anxiety. 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 He enjoys going to the [employer] where he plays the slot machines. He is very anxious about his generator prescott e. EK04/05/2015 personally reviewed and interpreted reveals BiVpacing HR 91, WY 160 , QRSD 1 60, QTC 523 [...] No results found for: METF, NMETFX, TFNMFX, [id number], WYCMFJ66GNP, TOTEPI REVIEW OF SYSTEMS: Constitutional: Negative for [...] 05/18/15101 Date of Service: 05/18/15101 Status: Signed Appliance Installer: Melva Harper RN (Registered Nurse) Problem: Pain [...] DR | | | | | | [place] [address] | | | | | | [phone] | | | | | | | [...] + + | Historically converted procedure from [facility] Epic environment | EXTERNAL LAB | + [...] PREPROCEDURE DIAGNOSIS | | | Nonischemic cardiomyopathy, CARTON FORMING MACHINE ADJUSTER-D system at elective replacement | | | indicator. PROCEDURES PERFORMED 1. Periprocedural CARTON FORMING MACHINE ADJUSTER evaluation, | | | programming and optimization. 2. Removal of a CARTON FORMING MACHINE ADJUSTER pulse generator. | | | 3. Implantation of a CARTON FORMING MACHINE ADJUSTER pulse generator. 4. Fluoroscopic lead | | | evaluation without revision or replacement (39410). PHYSICIAN | | | Terrance Martinez MD [...] by echocardiogram April 2015, | | | [place] [employer] functional Class II, status severe sleep | | | apnea, recent triple aneurysm, prepare CARTON FORMING MACHINE ADJUSTER system presently at [facility] | | | underlying the patient's left bundle branch block with ongoing | | | depressed LV ejection fraction for which ongoing ICD protection and | | | CARTON FORMING MACHINE ADJUSTER therapy is indicated. The patient is referred [...] ICD, serial number | | | PUD [id number], implanted January 27, 2010. IMPLANTED MATERIALS | | | Medtronic Viva XT CARTON FORMING MACHINE ADJUSTER-D, serial number [id number]. PREVIOUSLY | | | IMPLANTED LEADS Medtronic right atrial lead, 5076, 52 cm, serial | | | number [id number], implanted January 27, 2010, 4 mV P waves, impedance | | | 399 ohms, threshold 0.5 V at 0.5 msec. RV lead is a Medtronic | | | 6947, 65 cm, serial number [id number], implanted January 27, 2010, 5.5 | | | mV R waves, impedance 988 ohms, threshold 0.5 V at 0.4 msec. LV | | | lead is a Medtronic 4195, 88 cm, serial number [id number], implanted | | | January 27, 2010. We know that this is a Medtronic StarFix lead, | | | impedance 456 ohms, threshold 0.75 V at 0.4 msec. Periprocedure, | | | the patient's ICD was assessed with stored fluoroscopy in both the | | | BOLIVIAN and VILLALPANDO fluoroscopic views demonstrating satisfactory lead | | | positioning and no observable mechanical disruption. Vinh | | | programming is DDD 60 to 120, sleep hysteresis 50 beats per minute. | | | ECG-guided CARTON FORMING MACHINE ADJUSTER optimization was performed noting the prior LV offset | | | was -20. This was assessed at unpaced, 0, -20, -40. Unpaced there | | | was left bundle branch block, QRS 138, WY 178 msec. At 0 offset, QRS | [...] | the patient's equivocal clinical response to CARTON FORMING MACHINE ADJUSTER therapies in 2009. | | | IMPRESSION Successful replacement of a CARTON FORMING MACHINE ADJUSTER-D pulse generator with | | | successful CARTON FORMING MACHINE ADJUSTER optimization selecting an LV offset of -40 [...] | PREPROCEDURE DIAGNOSIS | | Nonischemic cardiomyopathy, CARTON FORMING MACHINE ADJUSTER-D system at elective replacement | | indicator. | | | | PROCEDURES PERFORMED | | 1. Periprocedural CARTON FORMING MACHINE ADJUSTER evaluation, programming and optimization. | | 2. Removal of a CARTON FORMING MACHINE ADJUSTER pulse generator. | | 3. Implantation of a CARTON FORMING MACHINE ADJUSTER pulse generator. | | 4. Fluoroscopic lead evaluation without revision or replacement (39577). | | | | PHYSICIAN | | [...] 35% by echocardiogram April | | 2014, [place] Heart Association functional Class II, status severe sleep | | apnea, recent triple aneurysm, prepare CARTON FORMING MACHINE ADJUSTER system presently at [facility] | | underlying the patient's left bundle branch block with ongoing depressed | | LV ejection fraction for which ongoing ICD protection and CARTON FORMING MACHINE ADJUSTER therapy is | | indicated. The patient [...] | Medtronic Bi-V ICD, serial number PUD [id number], implanted January 27, 2010. | | | | IMPLANTED MATERIALS | | Medtronic Viva XT CARTON FORMING MACHINE ADJUSTER-D, serial number [id number]. | | | | PREVIOUSLY IMPLANTED LEADS | | Medtronic right atrial lead, 5076, 52 cm, serial number [id number], | | implanted January 27, 2010, 4 mV P waves, impedance 399 ohms, threshold 0.5 V | | at 0.5 msec. | | | | RV lead is a Medtronic 6947, 65 cm, serial number [id number], implanted | | January 27, 2010, 5.5 mV R waves, impedance 988 ohms, threshold 0.5 V at 0.4 | | msec. | | | | LV lead is a Medtronic 4195, 88 cm, serial number [id number], implanted | | January 27, 2010. We know that this is a Medtronic StarFix lead, impedance | | 456 ohms, threshold 0.75 V at 0.4 msec. | | | | Periprocedure, the patient's ICD was assessed with stored fluoroscopy in | | both the BOLIVIAN and VILLALPANDO fluoroscopic views demonstrating satisfactory lead | | positioning and no observable mechanical disruption. | | | | Vinh programming is DDD 60 to 120, sleep hysteresis 50 beats per minute. | | | | ECG-guided CARTON FORMING MACHINE ADJUSTER optimization was performed noting the prior LV offset was | | -20. This was assessed at unpaced, 0, -20, -40. Unpaced there was left | | bundle branch block, QRS 138, WY 178 msec. At 0 offset, QRS was [...] patient's equivocal clinical | | response to CARTON FORMING MACHINE ADJUSTER therapies in 2009. | | | | IMPRESSION | | Successful replacement of a CARTON FORMING MACHINE ADJUSTER-D pulse generator with successful CARTON FORMING MACHINE ADJUSTER | | optimization selecting an LV offset [...] | | | 0.43 m/s TV Dec Ulster: 1.33 m/s2 TV Dec Time: 204.41 ms TV E | | | Frank: 0.27 m/s TV E/A Ratio: 0.62 Video News Editor: PEDRITO | | | Authenticated by: Terrance [...] 148.95 mlLVLs A4C: 7.54 cmLAAs A4C: 13.83 mf6MLBEK A-L | | A4C: 39.99 mlLALs A4C: 4.06 cmAo Diam: 3.85 cmAV Cusp: 2.04 cmLA Diam: 4.15 | | cmLA/Ao: 1.07HR: 81.35 BPMAV maxP.24 mmHgAV meanP.14 mmHgAV Vmax: 0.90 | | m/Fabricio Vmean: 0.71 m/Fabricio VTI: 14.68 cmAVA Vmax: 3.26 cm2AVA (VTI): 3.58 co9VCUN | | Dopp: 1.79 l/pikm3AMIC Dopp: 4.25 l/minHR: 80.74 BPMLVOT maxP.51 mmHgLVOT [...] A Frank: 0.43 m/sTV Dec | | Ulster: 1.33 m/s2TV Dec Time: 204.41 msTV E Frank: 0.27 m/sTV E/A Ratio: 0.62 | | Video News Editor: Raquelticated by: Terrance Martinez MDReport Date/Time: 05-30-2015 [...] A Frank: 0.43 m/s | |TV Dec Ulster: 1.33 m/s2 | |TV Dec Time: 204.41 ms | |TV E Frank: 0.27 m/s | |TV E/A Ratio: 0.62 | | | |Video News Editor: PEDRITO | |Authenticated by: Terrance Martinez MD [...] EXTERNAL LAB | | Testing performed at [facility] [place] [place];[address] [place] [address];[place] [address] MRSA PCR | | | NEGATIVE Testing performed at | | | [facility] [place] [place];[address] [place] [address];[place] [address] | | + + + + +---------+ [...] K/uL | LAB | | | | [facility] [place] [place];[address] | | | [address];[place] [address] | | | | + + + + + + | Red Blood | 5.14Comment: Testing | 4.20 - 5.70 | EXTERNAL | | | Cells | performed at [facility] [place] [place];[address] | M/uL | LAB | | | Counted | [address];[place] | | | | | | [address] | | | | + + + + + + | Hemoglobin | 15.7Comment: Testing | 13.2 - 17.0 | EXTERNAL | | | | performed at [facility] [place] [place];[address] | g/dL | LAB | | | | [address];[place] | | | | | | [address] | | | | + + + + + + | Hematocrit, | 47.0Comment: Testing | 39.0 - 50.0 % | EXTERNAL | | | POC | performed at [facility] [place] [place];[address] | | LAB | | | [address];[place] | | | | | | [address] | | | | + + + + + + | MCV | 91.3Comment: Testing | 80.0 - 100.0 fl | EXTERNAL | | | | performed at [facility] [place] [place];[address] | | LAB | | | [address];[place] | | | | | | [address] | | | | + + + + + + | MCH | 30.5Comment: Testing | 27.0 - 34.0 pg | EXTERNAL | | | | performed at [facility] [place] [place];[address] | | LAB | | | [address];[place] | | | | | | [address] | | | | + + + + + + | MCHC | 33.4Comment: Testing | 32.0 - 35.5 | EXTERNAL | | | | performed at [facility] [place] [place];[address] | g/dL | LAB | | | | [address];[place] | | | | | | [address] | | | | + + + + + + | RDW-CV | 45.9Comment: Testing | 37 - 53 fl | EXTERNAL | | | | performed at [facility] [place] [place];[address] | | LAB | | | [address];[place] | | | | | | [address] | | | | + + + + + + | Platelet | 226Comment: Testing | 150 - 400 K/uL | EXTERNAL | | | Count | performed at [facility] [place] [place];[address] | | LAB | | | Plasma [address];[place] | | | | | | [address] | | | | + + + + + + | MPV | 7.9Comment: Testing | fl | EXTERNAL | | | | performed at [facility] [place] [place];[address] | | LAB | | | [address];[place] | | | | | | [address] | | | | + + + + + + | Differentia | MANUALComment: Testing | | EXTERNAL | | | l Type | performed at [facility] [place] [place];[address] | | LAB | | | [address];[place] | | | | | | [address] | | | | + + + + + + | Segmented | 79Comment: Testing | % | EXTERNAL | | | Neutrophils | performed at [facility] [place] [place];[address] | | LAB | | | Manual | [address];[place] | | | | | | [address] | | | | + + + + + + | Lymphocytes | 10Comment: Testing | % | EXTERNAL | | | Manual | performed at [facility] [place] [place];[address] | | LAB | | | [address];[place] | | | | | | [address] | | | | + + + + + + | Monocytes | 11Comment: Testing | % | EXTERNAL | | | Manual | performed at [facility] [place] [place];[address] | | LAB | | | | [address];[place] | | | | | | [address] | | | | + + + + + + | Absolute | 10.23 (H)Comment: | 1.90 - 7.40 | EXTERNAL | | | Neutrophils | Testing performed at | K/uL | LAB | | | | [facility] [place] [place];[address];[place] [address] | | | | + + + + + + | Absolute | 1.30Comment: Testing | 1.00 - 3.90 | EXTERNAL | | | Lymphocytes | performed at [facility] [place] [place];[address] | K/uL | LAB | | | | [address];[place] | | | | | | [address] | | | | + + + + + + | Absolute | 1.43 (H)Comment: Testing | 0.00 - 0.80 | EXTERNAL | | | Monocytes | performed at [facility] [place] [place];[address] | K/uL | LAB | | | | [address];[place] | | | | | | [address] | | | | + + + + + + | RBC | RBC AND PLT MORPHOLOGY | | EXTERNAL | | | Morphology | APPEAR NORMALComment: | | LAB | | | | Testing performed at | | | | | | [facility] [place] [place];[address];[place] [address] | | | | + + + [...] EXTERNAL | | | | performed at [facility] [place] [place];888 | mmol/L | LAB | | | | [address];[place] | | | | | | [address] | | | | + + + + + + | K | 4.2Comment: SLT | 3.5 - 4.9 | EXTERNAL | | | | HEMOLYSISTesting | mmol/L | LAB | | | | performed at [facility] [place] [place];[address] | | | | | | [address];[place] | | | | | | [address] | | | | + + + + + + | Cl | 101Comment: Testing | 99 - 109 mmol/L | EXTERNAL | | | | performed at [facility] [place] [place];[address] | | LAB | | | | [address];[place] | | | | | | [address] | | | | + + + + + + | CO2 | 30Comment: Testing | 23 - 32 mmol/L | EXTERNAL | | | | performed at [facility] [place] [place];[address] | | LAB | | | [address];[place] | | | | | | [address] | | | | + + + + + + | Anion Gap | 11Comment: Testing | 5 - 20 mmol/L | EXTERNAL | | | | performed at [facility] [place] [place];[address] | | LAB | | | | [address];[place] | | | | | | [address] | | | | + + + + + + | Glucose, | 123 (H)Comment: Testing | 65 - 99 mg/dL | EXTERNAL | | | Fasting | performed at [facility] [place] [place];[address] | | LAB | | | | [address];[place] | | | | | | [address] | | | | + + + + + + | BUN | 14Comment: Testing | 8 - 25 mg/dL | EXTERNAL | | | | performed at [facility] [place] [place];[address] | | LAB | | | | [address];[place] | | | | | | [address] | | | | + + + + + + | Creatinine | 0.94Comment: Testing | 0.70 - 1.30 | EXTERNAL | | | | performed at [facility] [place] [place];888 | mg/dL | LAB | | | | [address];[place] | | | | | | [address] | | | | + + + + + + | BUN/Creatin | 15Comment: Testing | | EXTERNAL | | | ine Ratio | performed at [facility] [place] [place];[address] | | LAB | | | | [address];[place] | | | | | | [address] | | | | + + + + + + | Calcium | 8.9Comment: Testing | 8.5 - 10.5 | EXTERNAL | | | | performed at [facility] [place] [place];888 | mg/dL | LAB | | | | [address];[place] | | | | | | [address] | | | | + + + [...] | | | | | | at [facility] [place] [place];[address] | | | | [address];[place] [address] | | | | + + + [...]
--- OUTSIDE RECORDS SUMMARY | ~2020-02-20 | XMS | Encounter Summary ---
Demographics + + + | Address | [address] | | | [place] [address] | + + + | Home Phone [...] Team Providers + +------+ + | Care Falafel Cart Cook Name | Role | Phone | + [...] + + | 07/31/ | Telephone | [facility] | Mary Tipton ANP | Patient Education | | 2019 | | CARDIOLOGY [place] | [address] | | | | | [address] | [place], [place] | | | | | [place], [place] | [address] | | | | | [address] | | | | | | [phone] | | | +--------+ + + + [...] | | | | | [place] [address] | | | | | | [phone] | | | | | | | | +--------+ + + + + | 04/28/ | Procedure | Cardiology | | | | 2019 | visit | | | | +--------+ + + + + documented as of this encounter Visit Diagnoses Not on filedocumented in this encounter"
--- OUTSIDE RECORDS SUMMARY | ~2020-02-20 | XMS | Encounter Summary ---
Demographics + + + | Address | [address] | | | [place] [address] | + + + | Home Phone [...] Team Providers + +------+ + | Care Vessel Operator Name | Role | Phone | + +------+ + | Carla Murphy | PCP | | | PA-C | | | + +------+ + Encounter Details +--------+ + + + + | Date | Type | Department | Care Team | Description | +--------+ + + + + | 09/04/ | Documentati | [facility] | Mary Tipton ANP | | | 2020 | on | CARDIOLOGY [place] | [address] | | | | | [address] | [place], [place] | | | | | [place], [place] | [address] | | | | | [address] | | | | | | [phone] | | | +--------+ + + + [...] DR | | | | | | [place] [address] | | | | | | [phone] | | | | | | | | +--------+ + + + + | 04/28/ | Procedure | Cardiology | | | | 2019 | visit | | | | +--------+ + + + + documented as of this encounter Visit Diagnoses Not on filedocumented in this encounter"
--- OUTSIDE RECORDS SUMMARY | ~2020-02-20 | XMS | Encounter Summary ---
Demographics + + + | Address | [address] | | | [place] [address] | + + + | Home Phone [...] Providers + +------+ + | Care Coin Collector Name | Role | Phone | [...] Provider Unknown | | | | | [place], [place] | | | | | | [address] | (Fax) | | | | | [...] DR | | | | | | [facility] [address] | | | | | | [phone] | | | | | | | [...]
--- OUTSIDE RECORDS SUMMARY | ~2020-02-20 | XMS | Encounter Summary ---
Demographics + + + | Address | [address] | | | [place] [address] | + + + | Home Phone [...] Team Providers + +------+ + | Care Access Clerk Name | Role | Phone | [...] | | | | | | [place] [address] | | | | | | [phone] | | | +--------+ + + + [...] PDTCalled Jared and advi sed that Dr Nicholson [...] [address] | | | | | | [place] [address] | | | | | | [phone] | | | | | | | [...]
--- OUTSIDE RECORDS SUMMARY | ~2020-02-20 | XMS | Encounter Summary ---
Demographics + + + | Address | [address] | | | [place] [address] | + + + | Home Phone [...] Providers + +------+ + | Care Intelligence Support Officer Name | Role | Phone | + [...] | | | | [place] | [address] | [address]VE | | | | | Test | [place], | [place] | | | | | | [place] [address] | [address] | | | | | | | Phone: | | | | | | | [phone] | | | | | | | Fax: | | | | | | | [phone] | +--------+--------+ + + + + Reason [...] | | pulmonary | PA-C [address] | | | | | disease, | [address] | [place], | | | | | unspecified | Ave | [place] [address] | | | | | (HCC) | [place], | | | | | | Procedures | [place] | | | | | | [place] | [address] | | | | | | CONSULT | Phone: | | | | | | | [phone] | | | | | | | Fax: | | | | | | | [phone] | | +--------+--------+ + + + + Encounter Details +--------+---------+ + + + | Date | Type | Department | Care Team | Description | +--------+---------+ + + + | 10/18/ | Office | [facility] [place] | [place], | Dyspnea on exertion; | | 2015 | Visit | PULMONARY [address] | Sailaja Chiang MD | Elevated left | | | | [address] [place], | | diaphragm; | | | | [place] [address] | | Panlobular emphysema | | | | [phone] | | ([facility]); Non-ischemic | | | | | | cardiomyopathy | | | | | | ([facility]); MOISÉS | | | | | | [...] see if it works. Schedule this at [facility]. Do an overnight oxygen test through [facility]. Call the [employer] before yo u pick it up to make sure they have a box available. You will fruit or nut picker a box at the [employer]. Do the test on room air. Wear [...] years ago. He kinsey mbers going to [facility] ER years ago for pneumonia, a COPD [...] mentioned something about being sen t to [facility] at the time). In the midst [...] at another follow up). He saw the MUNITIONS HANDLER SUPERVISOR from cardiology in March 2015, and was [...] was then seen in the ER at [facility] a total of 4 times. In April [...] Date COPD (chronic obstructive pulmonary disease) ([facility]) Allergic rhinitis seeing Dr. 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 Has pets at home: Cat Has ever owned birds: Yes an owl back in the s. Other animal exposures: Rabbits, lots of cats and dogs. Hobbies: Going to the [employer]. Allergies: Allergies Allergen Reactions Codeine Anaphylaxis Meperidine [...] 05, 2008 and results [facility]. CORONARY ANGIOGRAPHY 1. The left main [...] made to ensure accuracy; however, inadvertent computerized construction superintendent errors may be pre sent. Electronically signed [...] DR | | | | | | [place] [address] | | | | | | [phone] | | | | | | | [...] air | Care | e | emphysema ([facility]) | 10/19/2015, Expires: | | | | [...]
--- OUTSIDE RECORDS SUMMARY | ~2020-02-20 | XMS | Encounter Summary ---
Demographics + + + | Address | [address] | | | [place] [address] | + + + | Home Phone [...] Providers + +------+ + | Care Assistant Auto Center Manager Name | Role | Phone | [...] + + | 09/16/ | Telephone | [facility] | Kimmie Wills | Pre-Op (confirmed | | 2019 | | CENTER CV INTRA OP | MD Saravanan [address] | arrival time for | | | | [address] | BLVD [place], [place] | 09/17 procedure with | | | | [place] | [address] | patient ) | | | | [address] | | | | | | [phone] | | | +--------+ + + + [...] DR | | | | | | [place] [address] | | | | | | [phone] | | | | | | | | +--------+ + + + + | 04/28/ | Procedure | Cardiology | | | 2019 | visit | | | | +--------+ + + + + documented as of this encounter Visit Diagnoses Not on filedocumented in this encounter"
--- OUTSIDE RECORDS SUMMARY | ~2020-02-20 | XMS | Encounter Summary ---
Demographics + + + | Address | [address] | | | [place] [address] | + + + | Home Phone [...] Providers + +------+ + | Care Director Cpg Name | Role | Phone | + [...] | | | | | | [place] [address] | | | | | | [phone] | | | +--------+ + + + [...] [address] | | | | | | [place] [address] | | | | | | [phone] | | | | | | | [...]
--- OUTSIDE RECORDS SUMMARY | ~2020-02-20 | XMS | Encounter Summary ---
Demographics + + + | Address | [address] | | | [place] [address] | + + + | Home Phone [...] Team Providers + +------+ + | Care Gm Mobile Name | Role | Phone | + +------+ + | Carla Murphy | PCP | | | PA-C | | | + +------+ + Encounter Details +--------+ + + + + | Date | Type | Department | Care Team | Description | +--------+ + + + + | 03/12/ | Orders Only | [facility] | Provider, | Type 2 diabetes | | 2019 | | SYSTEM GENERIC OP | MD [address] | mellitus without | | | | CONVERSION [address] | [address] | complications (HCC); | | | | [address] [place], [place] | [place] [address] | Encounter for | | | | [address] | | therapeutic drug | | | | [phone] | | level monitoring | +--------+ + [...] | | | | | [place] [address] | | | | | | [phone] | | | | | | | [...]
--- OUTSIDE RECORDS SUMMARY | ~2020-02-20 | XMS | Encounter Summary ---
Demographics + + + | Address | [address] | | | [place] [address] | + + + | Home Phone [...] Team Providers + +------+ + | Care Finisher Tailor Apprentice Name | Role | Phone | [...] Provider Unknown | | | | | [place], [place] | | | | | | [address] | (Fax) | | | | | [...] DR | | | | | | [facility] [address] | | | | | | [phone] | | | | | | | [...]
--- OUTSIDE RECORDS SUMMARY | ~2020-02-20 | XMS | Encounter Summary ---
Demographics + + + | Address | [address] | | | [place] [address] | + + + | Home Phone [...] Providers + +------+ + | Care Team Foreman Name | Role | Phone | + [...] + + | 09/16/ | Telephone | [facility] | Kimmie Wills | Pre-Op (confirmed | | 2019 | | CENTER CV INTRA OP | MD Saravanan [address] | arrival time for | | | | [address] | BLVD [place], [place] | 09/17 procedure with | | | | [place], [place] | [address] | patient ) | | | | [address] | | | | | | [phone] | | | +--------+ + + + [...] DR | | | | | | [place] [address] | | | | | | [phone] | | | | | | | | +--------+ + + + + | 04/28/ | Procedure | Cardiology | | | 2019 | visit | | | | +--------+ + + + + documented as of this encounter Visit Diagnoses Not on filedocumented in this encounter"
--- OUTSIDE RECORDS SUMMARY | ~2020-02-20 | XMS | Encounter Summary ---
Demographics + + + | Address | [address] | | | [place] [address] | + + + | Home Phone [...] Team Providers + +------+ + | Care Check Weigher Name | Role | Phone | + +------+ + | Carla Murphy | PCP | | | PA-C | | | + +------+ + Encounter Details +--------+ + + + + | Date | Type | Department | Care Team | Description | +--------+ + + + + | 11/01/ | Orders Only | [facility] | Conversion | | | 2016 | | CARDIOLOGY [place] | Transaction, | | | | | [address] | Provider Unknown | | | | | [place], [place] | [phone] | | | | | [address] | | | | | | [phone] | | | +--------+ + + + [...] DR | | | | | | [place] [address] | | | | | | [phone] | | | | | | | [...]
--- OUTSIDE RECORDS SUMMARY | ~2020-02-20 | XMS | Encounter Summary ---
Demographics + + + | Address | [address] | | | [place] [address] | + + + | Home Phone [...] Team Providers + +------+ + | Care Pig Sticker Name | Role | Phone | + +------+ + PCP | Unavailable | + +------+ + Encounter Details +--------+ + + + + | Date | Type | Department | Care Team | Description | +--------+ + + + + | 01/27/ | Hospital | [facility] | Raiza Cote, | Cardiac pacemaker in | | 2009 - | Encounter | MEDICAL CENTER | [address] | situ | | | | CLINICAL DECISION | [address] [place], [place] | | | 01/28/ | | [address] | [address] | | | 2009 | | [place], [place] | [phone] | | | | | [address] | | | | | | [phone] | | | +--------+ + + + [...] | | | | | [place] [address] | | | | | | [phone] | | | | | | | [...] Performed At | + + + | [facility] [address] Ph: | | | Patient Name: FRANCI VELÁZQUEZ Date of : | | | 1945 Medical Record: [id number] Account: [id number] | | | Exam Date/Time: 01/27/2010 17:00 [...] 04/13/2019 7:29 PM PDT | | [facility] | | [facility] [address] | | | | | | Patient Name: FRANCI VELÁZQUEZ | | Date of : 1945 | | Medical Record: [id number] | | Account: [id number] | | | | | | Exam [...] Performed At | + + + | [facility] [address] Ph: | | | Patient Name: FRANCI VELÁZQUEZ Date of : | | | 1945 Medical Record: [id number] Account: [id number] | | | Exam Date/Time: 01/27/2010 14:54 [...] 04/13/2019 7:29 PM PDT | | [facility] | | [facility] [address] | | | | | | Patient Name: FRANCI VELÁZQUEZ | | Date of : 1945 | | Medical Record: [id number] | | Account: [id number] | | | | | | Exam [...] Performed At | + + + | [id number] [facility] | | | [facility] [address] | | | , | | | CARDIOLOGY Patient Name: FRANCI VELÁZQUEZ Date of : | | | 1945 Medical Record: [id number] Account: [id number] | | | [place] [address]/ Exam Date/Time: 01/27/2010 | | | 01:00 [...] | | DESCRIPTION OF PROCEDURE Implantation of GRAIN TRADER/ICD was recommended. | | | Informed consent [...] cm, serial number | | | is [id number]. We found a suitable position in the [...] Medtronic 4195, serial number | | | [id number]. The right atrial lead is a Medtronic 5076, length | | | is 52 cm, serial number is [id number]. We found a suitable position | | [...] | | | delivery system using the Trufatronic universal slitter. | | | Fluoroscopically, lead position remained stable. In UKRAINIAN projection, | | | we adjusted the amount of redundancy on the lead and sutured it in | | | place. We then removed wires and stylets. We irrigated the pocket. | | | We then took the device which is a [place] [id number], serial number | | | [id number]. We connected all 3 leads to the [...] 09:43 A P P | | | EDMUND/mehul/[id number]/cg | | + + + + + | Procedure Note | + + | David Mckeon Conversion - 04/13/2019 7:29 PM PDT | | [id number] | | [facility] | | [facility] [address] | | , | | CARDIOLOGY | | | | Patient Name: FRANCI VELÁZQUEZ | | Date of : 1945 | | Medical Record: [id number] | | Account: [id number] | | OPS/CDU 525[address]/ | | | | | | Exam [...] DESCRIPTION OF PROCEDURE | | Implantation of GRAIN TRADER/ICD was recommended. Informed consent was obtained. | [...] 65 cm, serial | | number is [id number]. We found a suitable position in the [...] lead is a Medtronic 4195, serial number [id number]. | | | | | | The right atrial lead is a Medtronic 5076, length is 52 cm, serial | | number is [id number]. We found a suitable position in the [...] removed the LV delivery system using the Trufatronic universal | | slitter. Fluoroscopically, lead position remained stable. In UKRAINIAN | | projection, we adjusted the amount of redundancy on the lead and sutured | | it in place. | | | | We then removed wires and stylets. We irrigated the pocket. We then took | | the device which is a [place] [id number], serial number [id number]. We | | connected all 3 leads [...] | P | | P | | EDMUND/mehul/[id number]/cg | + + documented in this encounter Visit Diagnoses + + | Diagnosis | + + | Cardiac pacemaker in situ | + + documented in this encounter"
--- OUTSIDE RECORDS SUMMARY | ~2020-02-20 | XMS | Encounter Summary ---
Demographics + + + | Address | [address] | | | [place] [address] | + + + | Home Phone [...] Team Providers + +------+ + | Care Caponizer Name | Role | Phone | + +------+ + PCP | Unavailable | + +------+ + Encounter Details +--------+ + + + + | Date | Type | Department | Care Team | Description | +--------+ + + + + | 09/17/ | Hospital | [facility] | Conversion | | | 2015 | Encounter | [facility] | Transaction, | | | | | [address] | Provider Unknown | | | | | [place], [place] | | | | | | [address] | (Fax) | | | | | [phone] | | | +--------+ + + + [...] DR | | | | | | [place] [address] | | | | | | [phone] | | | | | | | | +--------+ + + + + | 04/28/ | Procedure | Cardiology | | | | 2019 | visit | | | | +--------+ + + + + documented as of this encounter Visit Diagnoses Not on filedocumented in this encounter"
--- OUTSIDE RECORDS SUMMARY | ~2020-02-20 | XMS | Encounter Summary ---
Demographics + + + | Address | [address] | | | [place] [address] | + + + | Home Phone [...] Providers + +------+ + | Care Legal Records Manager Name | Role | Phone | + +------+ + PCP | Unavailable | + +------+ + Encounter Details +--------+ + + + + | Date | Type | Department | Care Team | Description | +--------+ + + + + | 09/15/ | Hospital | [facility] | Conversion | Pain | | 2015 | Encounter | CONVERSION [address] | Transaction, | | | | | [address] | Provider Unknown | | | | | [place], [place] | [phone] | | | | | [address] | | | | | | [phone] | | | +--------+ + + + [...] DR | | | | | | [place] [address] | | | | | | [phone] | | | | | | | [...]
--- OUTSIDE RECORDS SUMMARY | ~2020-02-20 | XMS | Encounter Summary ---
Demographics + + + | Address | [address] | | | [place] [address] | + + + | Home Phone [...] Team Providers + +------+ + | Care Zone Supervisor Firearms Name | Role | Phone | + [...] ([facility]) | | | | [place], | | | | | | [place] [address] | | | | | | [phone] | | | +--------+ + + + [...] DR | | | | | | [place] [address] | | | | | | [phone] | | | | | | | [...]
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
--- OUTSIDE RECORDS SUMMARY | ~2020-02-20 | XMS | Encounter Summary ---
Demographics + + + | Address | [address] | | | [place] [address] | + + + | Home Phone [...] Team Providers + +------+ + | Care Vacuum Worker Name | Role | Phone | [...] + + | 08/06/ | Telephone | [facility] | Mary Tipton, ERNIE | Other (left msg for | | 2018 | | [facility] | [address] | patient to call | | | | [address] | [facility] [place] | back) | | | | [place], [place] | [address] | | | | | [address] | | | | | | [phone] | | | +--------+ + + + [...] DR | | | | | | [place] [address] | | | | | | [phone] | | | | | | | | +--------+ + + + + | 04/28/ | Procedure | Cardiology | | | | 2019 | visit | | | | +--------+ + + + + documented as of this encounter Visit Diagnoses Not on filedocumented in this encounter"
--- OUTSIDE RECORDS SUMMARY | ~2020-02-20 | XMS | Encounter Summary ---
Demographics + + + | Address | [address] | | | [place] [address] | + + + | Home Phone [...] + | 01/11/ | Orders Only | [facility] | Gretchen Joy, | | | 2018 | | [place] | [address] | | | | | [address] | [address] [place], [place] | | | | | [place], [place] | [address] | | | | | [address] | | | | | | [phone] | | | +--------+ + + + [...] DR | | | | | | [place] [address] | | | | | | [phone] | | | | | | | [...]
--- OUTSIDE RECORDS SUMMARY | ~2020-02-20 | XMS | Encounter Summary ---
Demographics + + + | Address | [address] | | | [place] [address] | + + + | Home Phone [...] Team Providers + +------+ + | Care Liquid Floor And Wall Applier Name | Role | Phone | + +------+ + | Carla Murphy | PCP | | | PA-C | | | + +------+ + Encounter Details +--------+ + + + + | Date | Type | Department | Care Team | Description | +--------+ + + + + | 10/18/ | Hospital | [facility] | Adonisenstein, | Chronic obstructive | | 2016 | Encounter | MED CTR PULMONARY | Sailaja Chiang MD | pulmonary disease, | | | | FUNCTION [address] | | unspecified COPD | | | | [place], | | type ([facility]) | | | | [place] [address] | | | | | | [phone] | | | +--------+ + + + [...] signed by: Sailaja Nicholson MD 10/24/2015 15:44 [facility] CC: Carla Juarez PA-C documented in t [...] [address] | | | | | | [place] [address] | | | | | | [phone] | | | | | | | [...] PFT PULMONARY FUNCTION TESTING ORDERS Full PFT ([place] w/BD, lung volumes, diffusion)?: Yes (10/24/2015 3:47 [...] | | Sailaja Nicholson MD 10/24/2015 15:44 [facility] | | [facility] CC: Carla Juarez PA-C | | [...]
--- OUTSIDE RECORDS SUMMARY | ~2020-02-20 | XMS | Encounter Summary ---
Demographics + + + | Address | [address] | | | [place] [address] | + + + | Home Phone [...] Providers + +------+ + | Care Chief Growth Officer Name | Role | Phone | [...] + + | 06/18/ | Documentati | [facility] | Sharron Khan, | Other (end of study) | | 2019 | on | CARDIOLOGY [place] | Technologist | | | | | [address] | | | | | | [place] | | | | | | [address] | | | | | | [phone] | | | +--------+ + + + [...] | | | | | [place] [address] | | | | | | [phone] | | | | | | | [...]
--- OUTSIDE RECORDS SUMMARY | ~2020-02-20 | XMS | Encounter Summary ---
Demographics + + + | Address | [address] | | | [place] [address] | + + + | Home Phone [...] Team Providers + +------+ + | Care Stone Setter Apprentice Name | Role | Phone | + +------+ + | Carla Murphy | PCP | | | PA-C | | | + +------+ + Encounter Details +--------+ + + + + | Date | Type | Department | Care Team | Description | +--------+ + + + + | 09/16/ | Telephone | [facility] | Kimmie Wills | | | 2020 | | CENTER CV INTRA OP | MD [address] | | | | | [address] | [address]VD [place], [place] | | | | | [place], [place] | [address] | | | | | [address] | | | | | | [phone] | | | +--------+ + + + [...] DR | | | | | | [place] [address] | | | | | | [phone] | | | | | | | | +--------+ + + + + | 04/28/ | Procedure | Cardiology | | | | 2019 | visit | | | | +--------+ + + + + documented as of this encounter Visit Diagnoses Not on filedocumented in this encounter"
--- OUTSIDE RECORDS SUMMARY | ~2020-02-20 | XMS | Encounter Summary ---
Demographics + + + | Address | [address] | | | [place] [address] | + + + | Home Phone [...] Team Providers + +------+ + | Care Wire Bound Box Machine Operator Name | Role | Phone | + +------+ + | Carla Murphy | PCP | | | PA-C | | | + +------+ + Encounter Details +--------+ + + + + | Date | Type | Department | Care Team | Description | +--------+ + + + + | 01/20/ | Hospital | [facility] | Therese Sarabia DO | Hypotension due to | | 2017 - | Encounter | [facility] | [address] | drugs; Non-sustained | | | | CLINICAL DECISION | [place] [address] | ventricular | | 01/21/ | | [address] | [phone] | tachycardia (HCC) | | 2017 | | [place], [place] | | | | | | [address] | | | | | | [phone] | | | +--------+ + + + [...] 0856 Date of Service: 01/21/1752 Status: Signed Digital Communications Manager: Beau Rudolph MD (Physician) [facility] Service: Hospitalist Physician Discharge Summary Patient ID: Jared Abraham [id number] y.o. 1945 Admit date: 01/20/2017 Discharge [...] Juarez PA-C [address] [place] [address] Nav Foley MD [address] [place] [address] Dictation and multi operation machine operator or software, [employer], used which may contain error for similar [...] Enlarged heart COPD (chronic obstructive pulmonary disease) ([facility]) Pacemaker INAJA (hard of hearing) Hypertension Hyperlipidemia AAA (abdominal aortic aneurysm) ([facility]) MOISÉS (obstructive sleep apnea) 01/21/2017 Past Surgical History Procedure Laterality Date Pacemaker insertion 01/22/2014 Appendectomy Hernia repair Tumor removal head and neck Hand surgery tube put in to drain infection. Was put out for it as a child Aortic endograft N/A 09/23/2014 Procedure: AORTIC - ENDOGRAFT; Surgeon: Vincent Fields MD; Location: [facility] OR/INTERNATIONAL REPRESENTATIVE; Ser vice: Vascular; Laterality: N/A; Significant Diagnostic [...] Commonly known as: NASACORT AQ Vitamin D3 52458 units Caps Refills: 0 STOP taking these [...] 0949 Date of Service: 01/21/17943 Status: Addendum Digital Communications Manager: Kalpana Bell RN (Registered Nurse) Related Notes: [...] 01/21/17337 Date of Service: 01/21/17337 Status: Signed Digital Communications Manager: Stanford Camarillo RPH (Pharmacist) Note ccl 103.3ml/min meds reviewed Pharmacy will follow [facility] 0338 docume nted in this encounter H&P Notes Therese Sarabia DO - 01/21/2017 12:51 AM PDTFormatting of this note might be different from t he original. H&P by Therese Sarabia DO at 01/21/17 005 Author: Therese Sarabia DO Service: Hospitalist Author Type: Physician Filed: 01/21/17 0445 Date of Service: 01/21/1750 Status: Signed Digital Communications Manager: Therese Sarabia DO (Physician) [facility] [...] conditions who presents as a transfer from [facility] with Hypotension and Vtach for 6 seconds. Symptoms began a week ago after increasing his lisinopril to 10 mg at the request of his material engineer, Dr Foley. Last night when he checked [...] COPD (chronic obstructive pulmonary disease) (HCC) Pacemaker INAJA (hard of hearing) Hypertension Hyperlipidemia AAA (abdominal aortic aneurysm) (HCC) MOISÉS (obstructive sleep apnea) 01/21/2017 Past Surgical History Procedure Laterality Date Pacemaker insertion 01/22/2014 Appendectomy Hernia repair Tumor removal head and neck Hand surgery tube put in to drain infection. Was put out for it as a child Aortic endograft N/A 09/23/2014 Procedure: AORTIC - ENDOGRAFT; Surgeon: Vincent Fields MD; Location: [facility] OR/INTERNATIONAL REPRESENTATIVE; Ser vice: Vascular; Laterality: N/A; Allergies Allergen [...] daily. Yes Historical Provider Cholecalciferol (VITAMIN D3) 83312 UNITS CAPS Take by mouth. Indications: once [...] from 2322: Paced rhythm at 93 bpm. IA, QRS, QT, and axis are normal. No [...] 01/21/17239 Date of Service: 01/21/17219 Status: Signed Digital Communications Manager: Jeny Tolentino RN (Registered Nurse) Pt SBA to restroom. Steady gate noted. Jeny Tolentino RN 01/21/17239 onver chetna Transaction, Provider Unknown - 01/21/2017 2:02 AM PDT ED Notes by Jeny Tolentino RN at 01/21/17201 Author: Jeny Tolentino RN Service: (none) Author Type: Registered Nurse Filed: 01/21/17201 Date of Service: 01/21/17201 Status: Signed Digital Communications Manager: Jeny Tolentino RN (Registered Nurse) Dr. Sarabia at bedside. Jeny Tolentino RN 01/21/17201 onver chetna Transaction, Provider Unknown - 01/21/2017 12:27 AM PDT ED Notes by Jeny Tolentino RN at 01/21/1726 Author: Jeny Tolentino RN Service: (none) Author Type: Registered Nurse Filed: 01/21/1726 Date of Service: 01/21/1726 Status: Signed Digital Communications Manager: Jeny Tolentino RN (Registered Nurse) Family at bedside. Jeny Tolentino RN 01/21/1726 onver chetna Transaction, Provider Unknown - 01/20/2017 11:18 PM PDT ED Notes by Jeny Tolentino RN at 01/20/17 2318 Author: Jeny Tolentino RN Service: (none) Author Type: Registered Nurse Filed: 01/20/172317 Date of Service: 01/20/172317 Status: Signed Digital Communications Manager: Jeny Tolentino RN (Registered Nurse) Pt assisted to bedside commode. Pt on panel monitor. Jeny Tolentino RN 01/20/172317 ziel Michelle MD - 01/20/2017 11:10 PM PDTFormatting of this note might be different from the or iginal. ED Provider Notes by Oziel Carter MD at 01/20/172309 Author: Oziel Carter MD Service: Emergency Department Author Type: Physician Filed: 01/21/17100 Date of Service: 01/20/172309 Status: Signed Digital Communications Manager: Oziel Carter MD (Physician) [facility] Department of Emergency Medicine No flowsheet [...] the patient he was [facility] as opposed to being directly admitted. Troponins were negative at the [facility] facility as well as the remainder [...] COPD (chronic obstructive pulmonary disease) (HCC) Pacemaker INAJA (hard of hearing) Hypertension Hyperlipidemia AAA (abdominal aortic aneurysm) (HCC) Past Surgical History Procedure Laterality Date Pacemaker insertion 01/22/2014 Appendectomy Hernia repair Tumor removal head and neck Hand surgery tube put in to drain infection. Was put out for it as a child Aortic endograft N/A 09/23/2014 Procedure: AORTIC - ENDOGRAFT; Surgeon: Vincent Fields MD; Location: [facility] OR/INTERNATIONAL REPRESENTATIVE; Ser vice: Vascular; Laterality: N/A; Prior to [...] mouth daily. Historical Provider Cholecalciferol (VITAMIN D3) 67059 UNITS CAPS Take by mouth. Historical Provider [...] transferred here for further evaluation as his material engineer is here. He is clinical ly stable at this time. We will repeat ECG and troponin. I will have the nurses interrogate his pacer to see if there is any recording of his reported arrhythmia. ECG shows ventricular paced rhythm with occasional PVCs.. Report from [employer] that the patient had a 6 second [...] from 2322: Paced rhythm at 93 bpm. IA, QRS, QT, and axis are normal. No [...] recognition system. The possibility of "sound alike" multi operation machine operator errors, addition and/or deletions may occur. If [...] 01/20/172304 Date of Service: 01/20/172304 Status: Signed Digital Communications Manager: Ruby Mercado RN (Registered Nurse) Bed: 05 Expected date: Expected time: Means of arrival: Comments: [facility] [place] onver chetna Transaction, Provider Unknown - 01/20/2017 10:13 PM PDT ED Notes by Ruby Mercado RN at 01/20/172212 Author: Ruby Mercado RN Service: (none) Author Type: Registered Nurse Filed: 01/20/172218 Date of Service: 01/20/172212 Status: Signed Digital Communications Manager: Ruby Mercado RN (Registered Nurse) Report from [...] DR | | | | | | [place] [address] | | | | | | [phone] | | | | | | | [...] | | | | performed at [facility];[address] | | | | | | [facility];[place], [place] | | | | | | [address] | | | | + + + [...] EXTERNAL | | | | performed at [facility];[address] | | LAB | | | [address];[place], [place] | | | | | | [address] | | | | + + + [...] + + | Historically converted procedure [facility] environment | EXTERNAL LAB | + [...] | | | | performed at [facility] | | | | | | [address] [facility];[place] | | | | | | [address] | | | | + + + [...] | | | | performed at [facility];[address] | | | | | | [facility];[place], [place] | | | | | | [address] | | | | + + + [...] EXTERNAL | | | | performed at [facility];[address] | | LAB | | | | [address];[place] | | | | | | [address] | | | | + + + [...] | | | | performed at [facility];[address] | | | | | | [facility];[place], [place] | | | | | | [address] | | | | + + + [...] | | | Basophils | performed at [facility], [address] | K/uL | LAB | | | | [address], | | | | | | [place] [address] | | | | + + + [...] EXTERNAL | | | | performed at [facility];[address] | | LAB | | | | [address];[place] | | | | | | [address] | | | | + + + [...] EXTERNAL | | | | performed at [facility];[address] | | LAB | | | | [address];[place], [place] | | | | | | [address] | | | | + + + [...] EXTERNAL | | | | performed at [facility];[address] | | LAB | | | | [address];[place] | | | | | | [address] | | | | + + + [...] | | | Calculated | performed at [facility], [address] | | LAB | | | | [address], | | | | | | [place] [address] | | | | + + + [...] | | | | | | at [facility];[address] [place] [address] | | | | | | [facility];[place] [address] | | | | + + + [...] | | | | performed at [facility];[address] | | | | | | [address] [facility];[place], [place] | | | | | | [address] | | | | + + + [...] | | | Basophils | performed at [facility];[address] | [address] | LAB | | | | [address];[place], [place] | | | | | | [address] | | | | + + + [...] EXTERNAL | | | | performed at [facility];[address] | | LAB | | | [address];[place], [place] | | | | | | [address] | | | | + + + [...] EXTERNAL | | | | performed at [facility];[address] | | LAB | | | | [address];[place] | | | | | | [address] | | | | + + + [...] EXTERNAL | | | | performed at [facility];[address] | | LAB | | | | [address];[place], [place] | | | | | | [address] | | | | + + + [...] | | | | | | at [facility];[address] [place] [address] | | | | | | [facility];[place] [address] | | | | + + + [...] + + | [facility] | EXTERNAL LAB | + [...]
--- OUTSIDE RECORDS SUMMARY | ~2020-02-20 | XMS | Encounter Summary ---
Demographics + + + | Address | [address] | | | [place] [address] | + + + | Home Phone [...] Team Providers + +------+ + | Care Opener Tender Name | Role | Phone | + +------+ + PCP | Unavailable | + +------+ + Encounter Details +--------+ + + + + | Date | Type | Department | Care Team | Description | +--------+ + + + + | 09/17/ | Hospital | [facility] | Conversion | | | 2015 | Encounter | [facility] | Transaction, | | | | | CLINIC [address] | Provider Unknown | | | | | [address] [place], [place] | | | | | | [address] | | | | | | [phone] | | | +--------+ + + + [...] 1216 Date of Service: 09/17/141215 Status: Signed Ctc Operator: Beronica Bonilla RN (Registered Nurse) Pt states he is very sensitive to pain medications. They can make his heart stop onver chetna Transaction, Provider Unknown - 09/17/2014 11:44 AM PST Pre-Procedure Instructions by Beronica Bonilla RN at 09/17/14 1144 Author: Beronica Bonilla RN Service: (none) Author Type: Registered Nurse Filed: 09/17/14 1145 Date of Service: 09/17/141143 Status: Signed Ctc Operator: Beronica Bonilla RN (Registered Nurse) AHA Guidelines for non emergent, non cardiac surgery followed. METS score greater than 4. D enies any chest pain, SOB or any other cardiac symptoms. Pt sees Dr. Foley and has a yari r. Last pacemaker check on 07/30/14 which is viewable in [employer] along with last chart note. docume nted [...] [address] | | | | | | [place] [address] | | | | | | [phone] | | | | | | | [...] | + + + | FRANCI Hooks [employer] XR CHEST 2 VIEW FRONTAL AND LATERAL [...] EXTERNAL LAB | | Testing performed at [address];[place] [address] MRSA PCR | | | NEGATIVE Testing performed at | | | [address];[place] [address] | | + + + + +---------+ [...] LAB | | | | Blvd;[place] [address] | | | | + + + [...] LAB | | | | [address];[place] [address] | | | | + + + [...] | LAB | | | | [address] [facility];[place], [place] | | | | | | [address] | | | | + + + [...] | | | | | | [address];[place] | | | | | | [address] | | | | + + + [...] | | | | | [place] [address] | | | | + + + + + + | Red Blood | 5.03Comment: Testing | 4.20 - 5.70 | EXTERNAL | | | Cells | performed at [facility], [address] | M/uL | LAB | | | Counted | [address], | | | | | | [place] [address] | | | | + + + + + + | Hemoglobin | 15.5Comment: Testing | 13.2 - 17.0 | EXTERNAL | | | | performed at [facility], [address] | g/dL | LAB | | | | [address], | | | | | | [place] [address] | | | | + + + + + + | Hematocrit, | 45.4Comment: Testing | 39.0 - 50.0 % | EXTERNAL | | | POC | performed at [facility], [address] | | LAB | | | | [address], | | | | | | [place] [address] | | | | + + + + + + | MCV | 90.1Comment: Testing | 80.0 - 100.0 fl | EXTERNAL | | | | performed at [facility], [address] | | LAB | | | | [address], | | | | | | [place] [address] | | | | + + + + + + | MCH | 30.8Comment: Testing | 27.0 - 34.0 pg | EXTERNAL | | | | performed at [facility], [address] | | LAB | | | | [address], | | | | | | [place] [address] | | | | + + + + + + | MCHC | 34.2Comment: Testing | 32.0 - 35.5 | EXTERNAL | | | | performed at [facility], [address] | g/dL | LAB | | | | [address], | | | | | | [place] [address] | | | | + + + + + + | RDW-CV | 43.3Comment: Testing | 37 - 53 fl | EXTERNAL | | | | performed at [facility], [address] | | LAB | | | | [address], | | | | | | [place] [address] | | | | + + + + + + | Platelet | 227Comment: Testing | 150 - 400 K/uL | EXTERNAL | | | Count | performed at [facility], [address] | | LAB | | | Plasma | [address], | | | | | | [place] [address] | | | | + + + + + + | MPV | 8.6Comment: Testing | fl | EXTERNAL | | | | performed at [facility], [address] | | LAB | | | | [address], | | | | | | [place] [address] | | | | + + + + + + | Differentia | MANUALComment: Testing | | EXTERNAL | | | l Type | performed at [facility], [address] | | LAB | | | | [address], | | | | | | [place] [address] | | | | + + + + + + | Segmented | 83Comment: Testing | % | EXTERNAL | | | Neutrophils | performed at [facility], [address] | | LAB | | | Manual | [address], | | | | | | [place] [address] | | | | + + + + + + | Lymphocytes | 11Comment: Testing | % | EXTERNAL | | | Manual | performed at [facility], [address] | | LAB | | | | [address], | | | | | | [place] [address] | | | | + + + + + + | Monocytes | 5Comment: Testing | % | EXTERNAL | | | Manual | performed at [facility], [address] | | LAB | | | | [address], | | | | | | [place] [address] | | | | + + + + + + | Eosinophils | 1Comment: Testing | % | EXTERNAL | | | Manual | performed at [facility], [address] | | LAB | | | | [address], | | | | | | [place] [address] | | | | + + + + + + | Absolute | 12.2 (H)Comment: Testing | 1.9 - 7.4 K/uL | EXTERNAL | | | Neutrophils | performed at [facility], [address] | | LAB | | | | [address], | | | | | | [place] [address] | | | | + + + + + + | Absolute | 1.6Comment: Testing | 1.0 - 3.9 K/uL | EXTERNAL | | | Lymphocytes | performed at [facility], [address] | | LAB | | | | [address], | | | | | | [place] [address] | | | | + + + + + + | Absolute | 0.7Comment: Testing | 0 - 0.8 K/uL | EXTERNAL | | | Monocytes | performed at [facility], [address] | | LAB | | | | [address], | | | | | | [place] [address] | | | | + + + + + + | Absolute | 0.1Comment: Testing | 0 - 0.5 K/uL | EXTERNAL | | | Eosinophils | performed at [facility], [address] | | LAB | | | | [address], | | | | | | [place] [address] | | | | + + + + + + | RBC | RBC AND PLT MORPHOLOGY | | EXTERNAL | | | Morphology | APPEAR NORMALComment: | | LAB | | | | Testing performed at | | | | | | [facility], [address] | | | | | | [place] | | | | | | [address] | | | | + + + [...] | | | | | [place] [address] | | | | + + + + + + | K | 4.2Comment: Testing | 3.5 - 4.9 | EXTERNAL | | | | performed at [facility], [address] | mmol/L | LAB | | | | [address], | | | | | | [place] [address] | | | | + + + + + + | Cl | 98 (L)Comment: Testing | 99 - 109 mmol/L | EXTERNAL | | | | performed at [facility], [address] | | LAB | | | | [address], | | | | | | [place] [address] | | | | + + + + + + | CO2 | 31Comment: Testing | 23 - 32 mmol/L | EXTERNAL | | | | performed at [facility], [address] | | LAB | | | | [address], | | | | | | [place] [address] | | | | + + + + + + | Anion Gap | 9Comment: Testing | 5 - 20 mmol/L | EXTERNAL | | | | performed at [facility], [address] | | LAB | | | | [address], | | | | | | [place] [address] | | | | + + + + + + | Glucose, | 115 (H)Comment: Testing | 65 - 99 mg/dL | EXTERNAL | | | Fasting | performed at [facility], [address] | | LAB | | | | [address], | | | | | | [place] [address] | | | | + + + + + + | BUN | 16Comment: Testing | 8 - 25 mg/dL | EXTERNAL | | | | performed at [facility], [address] | | LAB | | | | [address], | | | | | | [place] [address] | | | | + + + + + + | Creatinine | 0.98Comment: Testing | 0.70 - 1.30 | EXTERNAL | | | | performed at [facility], [address] | mg/dL | LAB | | | | [address], | | | | | | [place] [address] | | | | + + + + + + | BUN/Creatin | 16Comment: Testing | | EXTERNAL | | | ine Ratio | performed at [facility], [address] | | LAB | | | | [address], | | | | | | [place] [address] | | | | + + + + + + | Calcium | 9.9Comment: NOTE NEW | 8.5 - 10.5 | EXTERNAL | | | | REFERENCE RANGETesting | mg/dL | LAB | | | | performed at [facility], [address] | | | | | | [facility], | | | | | | [place] [address] | | | | + + + [...] | | | | | | at [facility], [address] | | | | | | [facility], | | | | | | [place] [address] | | | | + + + [...] + + | Historically converted procedure from [facility] environment | EXTERNAL LAB | + + + + +---------+ + + | Performing | Address | City/State/Zipcode | Phone Number | | Organization | | | | + +---------+ + + | EXTERNAL LAB | | | | + +---------+ + + documented in this encounter Visit Diagnoses Not on filedocumented in this encounter"
--- OUTSIDE RECORDS SUMMARY | ~2020-02-20 | XMS | Encounter Summary ---
Demographics + + + | Address | [address] | | | [place] [address] | + + + | Home Phone [...] Providers + +------+ + | Care Semiconductor Lab Technician Name | Role | Phone | [...] Unknown | | | | | [place], [place] | | | | | | [address] | (Fax) | | | | | [...] DR | | | | | | [facility] [address] | | | | | | [phone] | | | | | | | [...]
--- OUTSIDE RECORDS SUMMARY | ~2020-02-20 | XMS | Encounter Summary ---
Demographics + + + | Address | [address] | | | [place] [address] | + + + | Home Phone [...] Team Providers + +------+ + | Care Brush Washer Name | Role | Phone | [...] + + | 08/06/ | Telephone | [facility] | Mary Tipton, ERNIE | Other (left msg for | | 2018 | | [facility] | [address] | patient to call | | | | [address] | [facility] [place] | back) | | | | [place], [place] | [address] | | | | | [address] | | | | | | [phone] | | | +--------+ + + + [...] DR | | | | | | [place] [address] | | | | | | [phone] | | | | | | | | +--------+ + + + + | 04/28/ | Procedure | Cardiology | | | | 2019 | visit | | | | +--------+ + + + + documented as of this encounter Visit Diagnoses Not on filedocumented in this encounter"
--- OUTSIDE RECORDS SUMMARY | ~2020-02-20 | XMS | Encounter Summary ---
Demographics + + + | Address | [address] | | | [place] [address] | + + + | Home Phone [...] Team Providers + +------+ + | Care Bordereau Clerk Name | Role | Phone | [...] + + | 09/15/ | Telephone | [facility] | Janet, | Intake Questions | | 2019 | | [facility] | Nanci Hooks RN | | | | | [address] | | | | | | [place] | | | | | | [address] | | | | | | [phone] | | | +--------+ + + + [...] DR | | | | | | [place] [address] | | | | | | [phone] | | | | | | | | +--------+ + + + + | 04/28/ | Procedure | Cardiology | | | | 2019 | visit | | | | +--------+ + + + + documented as of this encounter Visit Diagnoses Not on filedocumented in this encounter"
--- OUTSIDE RECORDS SUMMARY | ~2020-02-20 | XMS | Encounter Summary ---
Demographics + + + | Address | [address] | | | [place] [address] | + + + | Home Phone [...] Team Providers + +------+ + | Care Cement Sack Breaker Name | Role | Phone | + [...] + + | 11/04/ | Procedure | [facility] | | Cardiac | | 2019 | visit | CARDIOLOGY [place] | | resynchronization | | | | [address] | | therapy | | | | [place], [place] | | defibrillator | | | | [address] | | (BONE PROCESS OPERATOR-D) in place | | | | [phone] | | (Primary Dx) | +--------+ + [...] REMOTEPre-Procedure Diagnose(s): Cardiac resynchroniz ation therapy defibrillator (BONE PROCESS OPERATOR-D) in place ICD REMOTE INTERROGATION REPORT Name: Jared Abraham PCP: Carla Murphy PA-C : 1945 Primary cardiology provider: Poppy Rodriguez Primary electrophysiology provider: Mary Tipton Device junior copywriter: [employer] Device type: Biventricular Battery Longevity: 3.5 [...] data and rhythm strips, please see osmin se/criminal records technician entry in the notes section and [...] | 04/28/ | Office | Cardiology | Nva Foley, | | 2019 | Visit | | MD [address] | | | | | | [place] [address] | | | | | | [phone] | | | | | | | [...] defibrillator | | | | | | (BONE PROCESS OPERATOR-D) in place | | + +--------+ + + + | DEVICE | Routin | 11/05/2019 | Cardiac | Results for this | | INTERROGATION- | e | 8:00 AM | resynchronization | procedure are in the | | REMOTE | | PDT | therapy | results section. | | | | | defibrillator | | | | | | (BONE PROCESS OPERATOR-D) in place | | + +--------+ + + + | DEVICE | Routin | 11/05/2019 | Cardiac | Results for this | | INTERROGATION- | e | 8:00 AM | resynchronization | procedure are in the | | REMOTE | | PDT | therapy | results section. | | | | | defibrillator | | | | | | (BONE PROCESS OPERATOR-D) in place | | + +--------+ + [...] Murphy PA-C : | | | 1945MRN: [id number] Primary cardiology provider: Poppy Beltran | | | [place] Primary electrophysiology provider: Mary T[place] Device | | | junior copywriter: [employer] Device type: Biventricular Battery Longevity: | [...] + + | Cardiac resynchronization therapy defibrillator (BONE PROCESS OPERATOR-D) in place - Primary | + + documented in this encounter"
--- OUTSIDE RECORDS SUMMARY | ~2020-02-20 | XMS | Encounter Summary ---
Demographics + + + | Address | [address] | | | [place] [address] | + + + | Home Phone [...] Providers + +------+ + | Care Windows Administrator Name | Role | Phone | [...] | | | | | | [address], [place] | | | | | | [address] | | | | | | [phone] | | | +--------+ + + + [...] | 2019 | Visit | | MD [address] | | | | | | [place] [address] | | | | | | [phone] | | | | | | | | +--------+ + + + + | 04/28/ | Procedure | Cardiology | | | | 2019 | visit | | | | +--------+ + + + + documented as of this encounter Visit Diagnoses Not on filedocumented in this encounter"
--- OUTSIDE RECORDS SUMMARY | ~2020-02-20 | XMS | Encounter Summary ---
Demographics + + + | Address | [address] | | | [place] [address] | + + + | Home Phone [...] Providers + +------+ + | Care Business Banking Manager Name | Role | Phone | [...] Provider Unknown | | | | | [place], [place] | | | | | | [address] | (Fax) | | | | | [...] | | | [facility] [address] | | | | | | [phone] | | | | | | | [...]
--- OUTSIDE RECORDS SUMMARY | ~2020-02-20 | XMS | Encounter Summary ---
Demographics + + + | Address | [address] | | | [place] [address] | + + + | Home Phone [...] Team Providers + +------+ + | Care Pharmacovigilance Safety Expert Name | Role | Phone | + +------+ + | Carla Murphy | PCP | | | PA-C | | | + +------+ + Encounter Details +--------+ + + + + | Date | Type | Department | Care Team | Description | +--------+ + + + + | 10/18/ | Hospital | [facility] | [place], | Chronic obstructive | | 2016 | Encounter | [facility] | Sailaja Chiang MD | pulmonary disease, | | | | FUNCTION [address] | | unspecified COPD | | | | [place], | | type ([facility]) | | | | [place] [id number] | | | | | | [phone] | | | +--------+ + + + [...] signed by: Sailaja Nicholson MD 10/24/2015 15:44 [facility] CC: Carla Juarez PA-C documented in t [...] FREIRE | | | | | | [place] [address] | | | | | | [phone] | | | | | | | [...] PFT PULMONARY FUNCTION TESTING ORDERS Full PFT ([place] w/BD, lung volumes, diffusion)?: Yes (10/24/2015 3:47 [...] | | Sailaja Nicholson MD 10/24/2015 15:44 [facility] | | [facility] CC: Carla Juarez PA-C | [...]
[~2020-02-20 10:31] MED LIST changes: +AMIODARONE HCL100 MG PO; +PRILOSEC OTC20 MG PO; +ZOFRAN4 MG PO
--- OUTSIDE RECORDS SUMMARY | 2020-02-20 10:34 | XMS ---
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 Josie VISIT COUNT ([address] [facility]. TOTAL 6 NOTE: Visits indicate total known visits. ED/UCC VISIT TRACKING (12 MO.) 02/20/2020 10:32 [facility] [place] TYPE: Emergency COMPLAINT: - WEAKNESS, HEADACHE 02/19/2020 13:21 [facility] [place] TYPE: Emergency COMPLAINT: - VOMITING 11/16/2019 08:02 [facility] [place] TYPE: Emergency COMPLAINT: - FLU SYMPTOMS DIAGNOSES: - Viral infection, unspecified - Essential (primary) hypertension - Allergy status to other drugs, medicaments and biological sub - Allergy status to penicillin - senior care (current) use of aspirin - Presence of automatic (implantable) cardiac defibrillator - Other group home (current) drug therapy - Allergy status to narcotic agent status - Acquired absence of other specified parts of digestive tract - Acute pharyngitis, unspecified 09/02/2019 14:24 [facility] [place] TYPE: Emergency COMPLAINT: - SOB DIAGNOSES: - Sleep apnea, unspecified - Dependence on other enabling machines and devices - senior care (current) use of oral hypoglycemic drugs - Other exterminator helper (current) drug therapy - Essential (primary) hypertension - Precordial pain - Allergy status to narcotic agent status - ocean transportation intermediary (current) use of aspirin - Allergy status to other drugs, medicaments and biological sub - Chondrocostal junction syndrome [Janethtze] - Allergy status to penicillin 07/23/2019 15:43 [facility] [place] TYPE: Emergency COMPLAINT: - BLOOD PRESSURE PROBLEM, DIZZINESS 05/26/2019 14:13 [facility] [place] TYPE: Emergency COMPLAINT: - DIABETIC PROBLEM DIAGNOSES: - Allergy status to penicillin - Essential (primary) hypertension - ocean transportation intermediary (current) use of aspirin - Hypotension, unspecified - Presence of cardiac pacemaker - Weakness - Allergy status to narcotic agent status - Allergy status to analgesic agent status - Other exterminator helper (current) drug therapy INPATIENT VISIT TRACKING (12 MO.) 07/25/2019 12:20 [facility] [place] TYPE: Medical Surgical COMPLAINT: - SYNCOPE DIAGNOSES: - ocean transportation intermediary (current) use of antithrombotics/antiplatelets - ocean transportation intermediary (current) use of oral hypoglycemic drugs - [...] Type 2 diabetes mellitus without complications - senior care (current) use of aspirin - ocean transportation intermediary (current) use of aspirin - Other abnormalities of heart beat - Hypothyroidism, unspecified - Chronic systolic (congestive) heart failure - Obstructive sleep apnea (adult) (pediatric) - Allergy status to narcotic agent status - Other group home (current) drug therapy - Hypothyroidism, unspecified - Peripheral vascular angioplasty status with implants and valarie - Atherosclerotic heart disease of [place] coronary artery witho - senior care (current) use of antithrombotics/antiplatelets - Allergy status to narcotic agent status - Other abnormalities of heart beat - senior care (current) use of oral hypoglycemic drugs - Hypertensive heart disease with heart failure - Atherosclerotic heart disease of [place] coronary artery witho - Chronic systolic (congestive) heart failure - Allergy status to other drugs, medicaments and biological sub - Other group home (current) drug therapy - Syncope and collapse [id number]
--- NOTE | 2020-02-20 13:41 | NUR ---
COVID SWAB COLLECTED NO COMPLICATIONS
--- NOTE | 2020-02-20 18:00 | NUR ---
Patient arrives to unit via stretcher. Patient able to transfer to hospital bed independently. Vital signs taken, assessment complete. Patient voided 200 mls of bridger urine in the urinal. Denies headache and pain. Patient on 3LNC, SpO2 of 97%. Denies SOB. Water at bedside, denies needs at this time. Call light within reach.
--- NOTE | 2020-02-20 20:15 | NUR ---
SHIFT REPORT RECEIVED FROM KEEGAN JENNINGS. ASSESSMENT COMPLETED AT THIS TIME, LIMITED DUE TO PAPR PPE. PT STATES HE IS TIRED, BUT IS ORIENTED. DENIES PAIN. ON 3L O2 VIA NC, DENIES SOB, OCCASIONAL PRODUCTIVE COUGH WITH SMALL AMOUNT OF THIN YELLOW SPUTUM. HR PACED PER MONITOR, DENIES CHEST PAIN. SANDWICH BOX PROVIDED PER REQUEST, DENIES NAUSEA. SKIN GROSSLY INTACT, GENERALIZED EDEMA TO LOWER LEGS NOTED, PEDAL PULSES 1+. PT USES URINAL AT BEDSIDE. IV SITES INTACT AND PATENT, IVF STARTED. PT HAS CALL LIGHT AND BELONGINGS WITHIN REACH, NO FURTHER REQUESTS AT THIS TIME.
--- NOTE | 2020-02-20 21:02 | NUR ---
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
--- NOTE | 2020-02-20 23:48 | NUR ---
PT HAD CALLED TO REQUEST SOMETHING FOR NASAL CONGESTION. CALLED DR. DELA CRUZ AND ORDERS PLACED FOR FLONASE AND AFRIN. ASSESSMENT COMPLETED, NO CHANGES FROM PREVIOUS. PT REMAINS ON 3.5L O2 VIA NC, ATTEMPTED TO SWITCH TO OXYMASK SINCE PT IS HAVING NASAL CONGESTION, BUT PT DID NOT TOLERATE STATING HE WAS CLAUSTROPHOBIC. CONTINUES TO DENIES CHEST PAIN, SOB, AND NAUSEA. IVF INFUSING WNL, IV SITES INTACT. FRESH ICE WATER PROVIDED AND URINAL EMPTIED. NO FURTHER REQUESTS, CALL LIGHT WITHIN REACH.
--- NOTE | 2020-02-21 02:08 | NUR ---
PT RESTING IN BED WITH EYES CLOSED, NO APPARENT DISTRESS. RESPIRATIONS EVEN AND UNLABORED. HR: 69, RR:16, SPO2:97% ON 3.5L. WILL ALLOW FOR REST AND CONTINUE TO MONITOR.
--- NOTE | 2020-02-21 03:55 | NUR ---
PT CALLED TO HAVE URINAL EMPTIED. ASSESSMENT COMPLETED. PT STATES HE HAS BEEN UNABLE TO SLEEP BECAUSE THE BED IS TOO UNCOMFORTABLE. PT STATES WISHES TO GO HOME TODAY, STATING THAT HE COULD AT LEAST REST BETTER THERE. DISCUSSED WITH HIM THAT THIS MAY BE POSSIBLE IF THE DOCTOR BELIEVES HE CAN TREAT HIMSELF AT HOME WITH ORAL ANTIBIOTICS, BUT ULTIMATELY IT WILL NEED TO BE BROUGHT UP WITH THE DOCTOR DURING MORNING ROUNDS; I WILL ALSO PASS ALONG HIS WISHES TO THE DAY SHIFT NURSES. WE ALSO DISCUSSED HIS RIGHT TO LEAVE A.M.A.; WHICH HE IS NOT PURSUING THAT AT THIS TIME. HE CONTINUES TO DENY PAIN, SOB, AND NAUSEA. IVF INFUSING WNL, IV SITES INTACT. CALL LIGHT REMAINS WITHIN REACH, NO FURTHER REQUESTS AT THIS TIME.
--- NOTE | 2020-02-21 06:06 | NUR ---
PT CALLED TO HAVE BLINDS LOWERED. URINAL EMPTIED AT THIS TIME.
--- NOTE | 2020-02-21 07:00 | NUR ---
Report received, orders acknowledged. Patient laying in bed with eyes closed, respirations even and unlabored. SpO2 of 94% on 3.5LNC. Call light within reach.
[2020-02-21] MEDS ORDERED: OMEPRAZOLE20 MG PO (07:18)
--- NOTE | 2020-02-21 08:00 | NUR ---
Patient sitting up at edge of bed with feet on floor. Vitals taken, assessment complete. Patient on 3.5LNC with an SpO2 of 92-94%. Patient instructed to blow nares and cough, SpO2 climbs to 96-99%. Patient reports nausea, prn antiemetic given. Breakfast delivered, patient eats 25% of meal. IV abx hung and infusing at 200 mls/hr. Azithromycin hung after IV abx complete, infusing at 250 mls/hr. Patient reports "burning and stabbing" sensation at IV site. Azithromycin switched to other IV site and now infusing at 125 mls/hr. Patient denies burning and stabbing sensation. Ice pack applied to previous IV site. AM medications given. Patient denies further needs at this time, call light within reach.
--- NOTE | 2020-02-21 12:16 | NUR ---
Patient sitting up at edge of bed with feet on floor. Vital signs taken, assessment complete. Temp of 99.1 noted. Lunch delivered. Patient denies nausea, begins eating lunch. BG accucheck not performed due to clinical judgement. Patient informed of COVID-19 positive test result. Questions answered, patient updates daughter. Denies further needs at this time, call light within reach.
--- NOTE | 2020-02-21 13:07 | NUR ---
Patient laying on right side in bed with eyes closed. Respirations even and unlabored. HR in the 70's, with an SpO2 of 92% on 3.5L NC. Call light within reach.
--- NOTE | 2020-02-21 13:34 | NUR ---
MED REC COMPLETE
--- NOTE | 2020-02-21 13:38 | NUR ---
Patient states "my fingers feel shriveled up, will you look at them?" Upper extremities assessed. CMS intact, cap refill less than 3 seconds, hands warm to touch, radial pulses strong and regular. Patient denies further needs, call light within reach.
--- NOTE | 2020-02-21 14:52 | NUR ---
Patient sleeping in bed, respirations even and unlabored. SpO2 of 95% on 3.5LNC. HR in the 70's. Call light within reach.
--- NOTE | 2020-02-21 15:47 | NUR ---
Dr. Patel in room to assess patient and discuss POC
--- NOTE | 2020-02-21 17:16 | EKG ---
[facility] [address] [place] [address] Signed Atrial-sensed ventricular-paced rhythm Abnormal ECG When compared with ECG of 19-FEB-2020 14:16, (Unconfirmed) Vent. rate has increased BY 9 BPM Confirmed by KATRIN DELA CRUZ MD ([id number]) on 02/21/2020 5:15:57 PM Electronically Signed By: KATRIN DELA CRUZ MD 02/21/20 1716 PATIENT NAME: FRANCI VELÁZQUEZ Electrocardiogram DATE OF : 49 PHYSICIAN: KATRIN DELA CRUZ MD REPORT #: [id number] REPORT IS CONFIDENTIAL AND NOT TO BE RELEASED WITHOUT AUTHORIZATION
--- NOTE | 2020-02-21 18:30 | NUR ---
Patient sitting up at edge of bed with feet on floor. Vital signs taken, assessment complete. IV remdesivir hung and infusing at 500 mls/hr. Dinner delivered. Patient voided 175 mls in urinal. Patient up to toilet with walker and SBA, voided. Returns to bed. Denies further needs, call light within reach.
--- NOTE | 2020-02-21 21:00 | NUR ---
PT SITTING AT EDGE OF BED, NO SOB. PT QUESTIONING ABOUT THE NS BAG HANGING USED TO FLUSH THE REMDESIVER. WAS UPSET AND QUESTIONING THE VOLUME. EXPLAINED IT WAS USED TO FLUSH THE MEDICATION AND MADE IT EASIER FOR THE STAFF TO NOT HAVE TO GO INTO THE ISOLATION ROOM FREQUENTLY AND THAT HE DID NOT GET THE FULL AMT. PT IS HARD OF HEARING AND WITH PPE ON IT IS QUESTIONABLE IF HE UNDERSTOOD THE FULL EXPLANTION. WAS GIVEN MELETONIN FOR SLEEP. HS MEDS GIVEN. BS 161, GIVEN 1 UNIT REG INSULIN SUB Q.
--- NOTE | 2020-02-21 23:54 | NUR ---
GETTING READY FOR SLEEP. VOIDED 200ML ORANGE URINE.
--- NOTE | 2020-02-22 02:16 | NUR ---
PT C/O NICKERSON, GIVEN 650MG TYLENOL PO. PT ASKING IF NICKERSON IS DUE TO VIRUS OR IS A SIDE EFFECT OF REMDESIVER. INFORMED LIKELY DUE TO VIRUS THAT IS A FREQ SYMPTOM. PT STATES HE HAD SLEPT SOME.
--- NOTE | 2020-02-22 04:17 | NUR ---
IS LAYING ON SIDEFACING AWAY FROM DOOR. HR 60'S, SATS ARE HIGH 90'S RR 21.
--- NOTE | 2020-02-22 06:32 | NUR ---
AWAKE, SITTING AT EGDE OF BE HOLDING HEAD IN HANDS, CONT TO HAVE NICKERSON. WILL GIVE TYLENOL WHEN ABLE. LABS DRAWN.
--- NOTE | 2020-02-22 07:30 | NUR ---
REPORT RECIEVED. PATIENT IS LAYING IN BED ON LEFT SIDE. NO DISTRESS NOTED.
--- NOTE | 2020-02-22 08:15 | NUR ---
WOKE FOR ASSESSMENT. C/O HEADACHE AND NAUSEA. DENEIS SHORNTESS OF BREATH. MODIFIED ASSESSMENT DONE DUE TO PPE. ACCUCHECK-90. PATIENT REFUSING BREAKFAST MENTIONED IS NAUSEATED. POOR EYE CONTACT. TALKED WITH PATIENT ABOUT POC FOR DAY.
--- NOTE | 2020-02-22 08:55 | NUR ---
TYLENOL 650 MG PO GIVEN FOR NICKERSON. ZOFRAN 4 MG IV GIVEN FOR NAUSEA.
--- NOTE | 2020-02-22 09:00 | NUR ---
SAT AT BEDSIDE. SPONGE BATH GIVEN, BED LINENS CHANGED. PATIENT STOOD AT BEDSIDE BRIEFLY. IS UNABLE TO TAKE ROUTINE PO MEDICATION AT THIS TIME DUE TO NAUSEA. IV MEDICATIONS GIVEN. SL X 2 PATENT.
--- NOTE | 2020-02-22 09:15 | NUR ---
LAYING DOWN IN BED TRYING TO SLEEP.
--- NOTE | 2020-02-22 10:25 | NUR ---
SLEEPING, NO DISTRESS NOTED. HOB ELEVATED SLIGHTLY.
--- NOTE | 2020-02-22 12:15 | NUR ---
DILAUDID 0.5 MG IV GIVEN FOR HEADACHE PAIN, COMPAZINE 10 MG IV GIVEN FOR NAUSEA. PATIENT SITTING AT BEDSIDE. AFTER THESE MEDICATIONS GIVEN, PATIENT STATES HE FEELS FUZZY, LAID DOWN ON BED.
--- NOTE | 2020-02-22 12:30 | NUR ---
NOW SITTING UP AT BEDSIDE TAKING FEW BITES OF FRUIT.
--- NOTE | 2020-02-22 13:15 | NUR ---
SLEEPING. NO DISTRESS NOTED.
--- NOTE | 2020-02-22 15:45 | NUR ---
ASSESSMENT DONE. C/O HEADACHE AND NAUSEA. TYLENOL 650 MG PO GIVEN AND ZOFRAN 4 MG IV GIVEN. ACCUCHECK 98. FLAT AFFECT.
--- NOTE | 2020-02-22 20:31 | NUR ---
PATIENT CALLED FOR ASSISTANCE, STATES HE HAS SOME QUESTIONS TO ASK HIS NURSE. RN NOTIFIED. PATIENT SITTING UP ON BEDSIDE, BELONGINGS AND CALL LIGHT IN REACH.
--- NOTE | 2020-02-22 21:20 | NUR ---
IN TO ASSESS PT. STATES NICKERSON ISN'T TOO BAD. GIVEN 650MG TYLENOL PO FOR COMFORT. STATES DOESN'T FEEL CAN GET BREATH WELL. SATS 98-100% AND ABLE TO USE IS TO 1500ML. HAD PT USE FLUTECESONE. PT DID NOT REMEMBER RECIEVING REMDESIVER AND IF DR. DELA CRUZ HAD COME IN AND SEEN HIM TODAY. INFORMED HE HAD GOTTEN MEDICATION AND THAT DR DELA CRUZ HAD SEEN HIM. ALSO ASKING IF HIS SON COUGH BRING IN HIS CHECK BOOK TOMORROW, AFFIRMED THIS WAS OK. PT VOIDING OK. HAS POOR APPETITE. BS 122 DID NOT REQUIRE INSULIN.
--- NOTE | 2020-02-22 23:00 | NUR ---
OCC SITS AT EDGE OF BED. NO CHANGE
--- NOTE | 2020-02-22 23:50 | NUR ---
IN TO ASSESS PT. STATES NICKERSON IS OK AND DENIES NAUSEA. GIVEN 1.5MG MELETONIN PER PT REUQEST TO HELP WITH SLEEP. GIVEN BACK RUB PER PT REQUEST.
--- NOTE | 2020-02-23 02:00 | NUR ---
RESTING QUIETLY IN BED.
--- NOTE | 2020-02-23 04:09 | NUR ---
CALL LIGHT ANSWERED, pt STATES "I'M THROWING UP". SITTING UP AT SIDE OF BED, NO EMESIS NOTED. PRN NAUSEA MEDICATION ADMINISTERED. AFEBRILE. ASSESSMENT COMPLETE. 3L OXYGEN BY NC IN PLACE. URINAL EMPTIED. NO ADDITIONAL REQUESTS, CALL LIGHT IN REACH.
--- NOTE | 2020-02-23 06:30 | NUR ---
CALL LIGHT ANSWERED, BLINDS SHUT PER REQUEST. LABS DRAWN AND SENT BY RN. pt STATES NAUSEA IS BETTER, DENIES ANY NEEDS AT THIS TIME. URINAL EMPTIED. CALL LIGHT IN REACH. ICE WATER PROVIDED.
--- NOTE | 2020-02-23 07:05 | NUR ---
CONT TO HAVE URINARY URGENCY AND FREQENCY AND IS OCC INC. URINE CONT TO BE BLOOD TINGED. INC SMEAR STOOL. NOW UP IN CHAIR.
--- NOTE | 2020-02-23 07:30 | NUR ---
Report received, orders acknowledged.
--- NOTE | 2020-02-23 08:30 | NUR ---
Patient laying in bed, awake and alert. Denies nausea, reports pain in lower back. Warm pack applied to lower back. Vital signs taken, assessment complete. AM medications given. Patient sitting up at edge of bed with feet on floor. Breakfast delivered. IV abx infusing at 200 mls/hr. Patient denies further needs at this time, call light within reach.
--- NOTE | 2020-02-23 10:30 | NUR ---
Patient laying in bed watching tv. IV ceftriaxone finished infusing, new IV abx hung. Patient on 3LNC, SpO2 of 95%. Patient up to toilet with SBA, on RA. 1 unmeasured void, SpO2 remains in the mid-90's during ambulation. Patient returned to bed, 3LNC put in place. Denies further needs at this time, call light within reach.
--- NOTE | 2020-02-23 12:00 | NUR ---
Patient sitting up at edge of bed with feet on floor. 3LNC in place, SpO2 of 99%. Vital signs taken, assessment complete. Patient denies needs at this time, call light within reach.
--- NOTE | 2020-02-23 14:15 | NUR ---
Patient sitting up at edge of bed with feet on floor. 3LNC in place, SpO2 of 95%. Patient up to toilet on RA, with walker and SBA. SpO2 remains 91-93% on RA. Patient unable to produce BM, voided. Returned to bed with walker and SBA. 3LNC in place. Denies further needs at this time, call light within reach.
--- NOTE | 2020-02-23 15:30 | NUR ---
Patient laying on right side, respirations even and unlabored. 3LNC in place, SpO2 of 96%. HR in the 60's. Call light within reach.
--- NOTE | 2020-02-23 16:30 | NUR ---
Dr. Patel in room to assess patient and discuss POC. Patient reports nausea, prn antiemetic given. Denies further needs, call light within reach.
--- NOTE | 2020-02-23 19:44 | NUR ---
FEELING HUNGRY, GIVEN CHICKEN SOUP WHICH PT STATES IT TASTES AWFUL AND TOAST. PT TRYING TOAST. NO NAUSEA AT THIS TIME. CONT TO HAVE NICKERSON. REMINDED PT THAT NICKERSON IS SYMPTOM OF COVID AND CAN LAST SOME TIME. WILL TX WITH TYLENOL PRN.
--- NOTE | 2020-02-23 20:36 | NUR ---
UPDATE GIVEN TO DR DELA CRUZ. MAY DC FLUME MAKER TO ALLOW PT TO BE INDEPENDENT IN ROOM
--- NOTE | 2020-02-23 21:42 | NUR ---
IN TO CHECK BS AND GIVE HS MEDS. MATRIX DRIER TENDER OFF AND PT GLAD OF THAT. WALKER PLACED NEAR PT PER HIS INSTRUCTIONS, MAY BE UP AD DANA. MORE TALKATIVE TONIGHT. STATES FOOD DOES NOT TASTE GOOD TO HIM. GIVEN BACK RUB. PT USES IS ON OWN.
--- NOTE | 2020-02-24 00:10 | NUR ---
PT AMB TO BR EARLIER TO VOID AND HAVE BM IN TOILET. STATES FEELS A LITTLE BETTER. READY FOR SLEEP. GIVEN MELATONIN, PT REQUESTS TO TAKE ONLY 1/2 TAB. GIVEN BACK RUB. STATES HAS DIFFICULTY STAYING ASLEEP WILL HAVE UPPER ABD PAIN WITH DEEP BREATH.
--- NOTE | 2020-02-24 02:26 | NUR ---
NOTED TO BE SITTING AT EDGE OF BED. HAS BEEN RESTING.
--- NOTE | 2020-02-24 02:27 | NUR ---
SATS 93% ON 3L NC.
--- NOTE | 2020-02-24 04:43 | NUR ---
SLEEPING. SATS 96%
--- NOTE | 2020-02-24 06:02 | NUR ---
AWAKE TO VOID. LAB DRAWN. CONT TO HAVE NICKERSON. HAS AMB TO BR AND SEBASTIAN WELL.
--- NOTE | 2020-02-24 08:00 | NUR ---
WOKE FOR ASSESSMENT. BREAKFAST ORDERED. HAS SLIGHT HEADACHE. TYLENOL 650 MG WELL ROUTINE MEDICATIONS GIVEN. 22 GA IV STARTED TO RIGHT HAND.
--- NOTE | 2020-02-24 09:00 | NUR ---
SAT AT BEDSIDE TO TAKE BREAKFAST. TOLERATED WELL. C/O SLIGHT NAUSEA. NO TREATMENT GIVEN AT TIHIS TIME. HAS OCC DRY COUGH.
--- NOTE | 2020-02-24 09:30 | NUR ---
SPONGE BATH GIVEN AND BED LINEN CHANGE. SAT UP IN CHAIR APPROX 20 MIN. PATIENT STATES HE DOES FEEL WEAK.
--- NOTE | 2020-02-24 09:50 | NUR ---
C/O FEELING LIKE HE IS GOING TO PASS OUT, ALSO C/O FEELING SHORT OF BREATH. BRANDON PAIN. BP- SITTING UP 110/56. O2 SAT ON 2 L NC-95. O2 INCREASED TO 4 L NC FOR PATIENT COMFORT. PATIENT THEN LAIED LIANA, BP -116/66. PATIENT HAS RECIEVED IV ZITHROMAX AND NOW RECIEVING REMDISIVIR.
--- NOTE | 2020-02-24 10:13 | NUR ---
CONTINUES TO FEEL LIKE HE IS GOING TO PASS OUT, AND STATES HE FEELS LIKE HE CANT'T GET ENOUGH AIR. NO INCREASE IN WORK OF BREATHING NOTED. RR-18. BP-97/53(63). IS SITTING AT BEDSIDE.
--- NOTE | 2020-02-24 10:30 | NUR ---
RESP THERAPY NOTIFIED OF PATIENT FEELING SHORT OF BREATH. Jennifer TURCIOS RT NOTIEFIED AND I DISCUSSED THE PATIENT S/S WITH HER. RT THEN WENT TO TALK WITH DR. DELA CRUZ REGARDING PATIENT. NO FUTHER ORDRES AT THIS TIME.
--- NOTE | 2020-02-24 10:40 | NUR ---
PATIENT AMBULATED TO BR, FEELS LIKE HE HAS GAS. PASSED FLATUS AND VOIDED. THEN BACK TO BED.
--- NOTE | 2020-02-24 10:50 | NUR ---
C/O SLIGHT NAUSEA, COMAPZINE 10 MG IV GIVEN.
--- NOTE | 2020-02-24 11:00 | NUR ---
SLEEPING NOW. WILL NOT AWAKEN TO GIVE SUPPOSITORY AT THIS TIME. WILL TALK WITH PATIENT ABOUT THIS WHEN WAKES. NO DISTRESS NOTED.
--- NOTE | 2020-02-24 12:14 | NUR ---
CONTINUES TO SLEEP. NOT AWAKENED FOR ASSESSMENT AT THIS TIME. NO DISTRESS NOTED.
--- NOTE | 2020-02-24 12:55 | NUR ---
AMBULATED TO BR TO VOID. USED WALKER. NOT ASSISTED TO BR. PATIENT WAS ABLE TO REAPPLY O2 AND OXIMETER W/O ASSIST. ASSESSMENT DONE. STATES HE FEELS BETTER AFTER SLEEPING.
--- NOTE | 2020-02-24 14:05 | NUR ---
SITTING AT BEDSIDE TO TAKE POTATOES AND FRUIT.
--- NOTE | 2020-02-24 16:30 | NUR ---
AWAKE. ASSESSMENT DONE. C/O LOWER ABD DISCOMFORT AND MILD SHORTNESS OF BREATH. SALIMA SUPP GIVEN.
--- NOTE | 2020-02-24 16:45 | NUR ---
Spoke with Rn, pt is resting. Pt on 3 l. Pt is wanting to go home as soon as medication is completed tomorrow. There is concern as pt is somewhat weak and lives alone. Will discuss with pt tomorrow when he is not sleeping.
--- NOTE | 2020-02-24 17:15 | NUR ---
DR. DELA CRUZ HERE TO SEE PATIENT. NO FUTHER ORDERS AT THIS TIME.
--- NOTE | 2020-02-24 19:15 | NUR ---
NO CHANGES, REPORT TO NEXT SHIFT.
--- NOTE | 2020-02-24 20:44 | NUR ---
PT AMB TO BR TO VOID AND HAVE BM IN TOILET THAT HE REPORTS WAS MOSTLY LIQUID. SENNA AND MIRALAX HELD. PT SEBASTIAN BEING UP WELL. STATES HE FEELS SO SO. PT TOLD ME THAT DR DELA CRUZ SPOKE TO HIM ABOUT BEING VENTILATED. EXPLAINED THAT IS A QUESTION THAT IS ASKED OF ALL PATIENTS RE THEIR CHOICES. INFORMED HIM THAT HE WAS IMPROVING AND SHOULD BE DISCHARGED IN A FEW DAYS TO CONT TO GET WELL AT HOME. INDICATED HE UNDERSTOOD.
--- NOTE | 2020-02-24 23:30 | NUR ---
HAS BEEN RESTING OFF AND ON. REPORTS HAD BM IN TOILET. DECLINES NEED FOR TYLENOL OR MELETONIN. GIVEN BACK RUB.
--- NOTE | 2020-02-25 01:30 | NUR ---
LAYING ON SIDE, SATS 94-96%.
--- NOTE | 2020-02-25 03:43 | NUR ---
PT CALLED TO ASK ABOUT SAT MONITOR NUMBERS, PT HAD NOTED SOMETIMES AFTER PUTTING ON OXYMETER AFTER GOING TO IT WOULD BE IN THE 70'S. EXPLAINED THAT IT TOOK A FEW MINUTES FOR IT TO GET FULL READING. PT UNDERSTANDS. SATES IS SLEEPING OFF AND ON. GIVEN BACK RUB.
--- NOTE | 2020-02-25 06:42 | NUR ---
PT C/O NICKERSON, GIVEN 650MG TYLENOL PO. LABS DRAWN. NO SOB.
--- NOTE | 2020-02-25 07:15 | NUR ---
Report received, orders acknowledged. Patient sitting up at edge of bed with feet on floor. Reports "I feel okay." Breakfast order taken, patient denies further needs at this time. Patient on 2LNC with an SpO2 of 94%. Call light within reach.
--- NOTE | 2020-02-25 08:45 | NUR ---
Patient sitting up at edge of bed with feet on floor. Denies pain and nausea. Reports headache improved since prn acetaminophen given. Vital signs taken, assessment complete. 2LNC in place, RR of 16, SpO2 of 94-98%. Patient denies SOB. AM medications given. IV remdesivir infusing at 540 mls/hr, IV site patent. Breakfast delivered, patient ate 100% of meal. Denies further needs at this time, call light within reach.
--- NOTE | 2020-02-25 08:55 | NUR ---
Update received from RN. Pt's status is unchanged from yesterday.
--- NOTE | 2020-02-25 09:52 | NUR ---
Patient laying in bed on right side, denies nausea. Reports feeling "fatigued." Warm pack applied to lower back for pain. IV remdesivir finished infusing, IV abx hung and infusing now. Sp02 of 96% on 2LNC. Denies SOB. Water refreshed, no further needs at this time. Call light within reach.
--- NOTE | 2020-02-25 11:41 | NUR ---
Patient sitting up at edge of bed with feet on floor. IV abx infusing. 2LNC in place, SpO2 of 96%. Patient reports SOB with laying down in bed. No work of breathing noted, HR in the 80's, and sats in the upper 90's. 125 mls of bridger urine in urinal. Denies needs at this time, call light within reach.
--- NOTE | 2020-02-25 12:30 | NUR ---
Patient laying in bed on right side, respirations even and unlabored. Vital signs taken, assessment complete. Crackles auscultated in bases of lungs. 2LNC in place, Sp02 in the upper 90's. Patient up to toilet independently with FWW, voided 200 mls of bridger urine. No BM produced, senna provided per patient request. BG of 135, no insulin needed. Patient returned to laying in bed on right side, denies further needs. Call light within reach.
--- NOTE | 2020-02-25 13:20 | NUR ---
PT in room working with patient
--- NOTE | 2020-02-25 13:50 | NUR ---
Patient reports chest pain of 3/10 after working with PT. Vital signs stable. Patient continuing on 2LNC with an Sp02 in the upper 90's. 1430: Patient reported feeling "fuzzy in the head and icky everywhere." Dr. Patel updated on patient condition. Will continue to monitor.
--- NOTE | 2020-02-25 15:00 | NUR ---
Patient laying in bed on right side. Patient slurring speech, reports "I don't feel good." Patient closes eyes, unable to respond to verbal stimulation. Tactile stimulation used to arouse patient. Reports blurry vision and "feeling fuzzy." Vital signs taken and stable. Patient on 2LNC with an SpO2 of 98%. Patient reports "my heart is aching." Upper left chest is tender to palpation. flat spring assembler shows paced rhythm, HR in the 70's. Patient continues to be difficult to arouse. 1504 - Rapid response called. BG of 98. MD at bedside, orders acknowledged for stat troponin and BNP. Blood draw sent off to lab. Patient becoming more arousable, able to keep eyes open and communicate more clearly to staff. Continues to report feeling fuzzy. Blurry vision is resolved, bilateral strength tested in both upper and lower extremities. BEFAST assessment is negative. Patient states "I think I just pushed myself too hard at physical therapy today." Patient laying in bed on right side, denies needs at this time. Call light within reach.
--- NOTE | 2020-02-25 16:00 | NUR ---
Patient laying in bed on right side, reports "fuzzy feeling is much better." Patient reports blurry vision has resolved, patient arousable to voice. Patient reports nausea, prn antiemetic given. Denies further needs at this time, call light within reach.
--- NOTE | 2020-02-25 17:00 | NUR ---
Patient sleeping in bed, respirations even and unlabored. Sp02 of 99% on 2LNC. HR in the 60's. Call light within reach.
--- NOTE | 2020-02-25 18:30 | NUR ---
Patient reports "I still feel foggy but I feel better than earlier." Patient up to BSC with SBA, voided 200 mls. Returns to bed with SBA. 2LNC in place, SpO2 of 99%. Dinner delivered. Patient denies needs at this time, call light within reach.
--- NOTE | 2020-02-25 21:10 | NUR ---
SHIFT REPORT RECEIVED FROM KEEGAN JENNINGS. ASSESSMENT COMPLETED AT THIS TIME, LIMITED DUE TO PAPR PPE. PT IS SOMEWHAT DROWSY, BUT IS ORIENTED X4 AND NEURO ASSESSMENT IS WNL. PT COMPLAINS OF 5/10 HEADACHE PAIN, PRN TYLENOL GIVEN. PT DENIES SOB, CHEST PAIN, AND NAUSEA. 4L O2 VIA NC IN PLACE, TITRATED TO 3L FOR SATS 97%. SKIN GROSSLY INTACT, 1+ EDEMA IN BLE, FAINT PEDAL PULSES. IV SITE INTACT, PATENT, AND SALINE LOCKED. URINAL EMPTIED. FRESH ICE WATER PROVIDED. PT DENIES FURTHER REQUESTS AT THIS TIME, CALL LIGHT AND BELONGINGS WITHIN REACH.
--- NOTE | 2020-02-25 22:57 | NUR ---
PT LAYING ON RIGHT SIDE, APPEARS TO BE SLEEPING. NO APPARENT DISTRESS. RESPIRATIONS EVEN AND UNLABORED, 3L O2 VIA NC IN PLACE. HR:65, RR:16, SPO2:95%. WILL ALLOW FOR REST AND CONTINUE TO MONITOR.
--- NOTE | 2020-02-26 01:14 | NUR ---
ASSESSMENT COMPLETED. PT WAKES EASILY WHEN SPOKEN TO. DENIES PAIN, INCLUDING CHEST PAIN. DENIES SOB AND NAUSEA. OXYGEN TITRATED TO 2L, SPO2: 95%. HR PACED, RATE 60-70. IV INTACT AND SALINE LOCKED. URINAL EMPTIED. VITAL SIGNS STABLE. NO REQUESTS AT THIS TIME, CALL LIGHT WITHIN REACH.
--- NOTE | 2020-02-26 03:16 | NUR ---
PT RESTING IN BED ON RIGHT SIDE, 2L O2 VIA NC IN PLACE. NO APPARENT DISTRESS, RESPIRATIONS EVEN AND UNLABORED. RR:22, SPO2: 92%, HR:71 AND PACED. WILL ALLOW FOR REST AND CONTINUE TO MONITOR.
--- NOTE | 2020-02-26 04:07 | NUR ---
PT CALLED TO REQUEST TYLENOL FOR HEADACHE PAIN THAT HE RATES 2/10. ASSESSMENT COMPLETED, UNCHANGED FROM PREVIOUS. REMAIN ON 2L O2 VIA NC, DENIES SOB, CHEST PAIN, AND NAUSEA. IV INTACT, PATENT, SALINE LOCKED. URINAL EMPTIED. FRESH ICE WATER PROVIDED. BACK MASSAGE PROVIDED PER PT REQUEST. PT DENIES FURTHER NEEDS AT THIS TIME, CALL LIGHT WITHIN REACH.
--- NOTE | 2020-02-26 06:20 | NUR ---
IN TO DRAW MORNING LABS, PT TOLERATED FAIR. LEVOTHYROID GIVEN. BREAKFAST ORDER OBTAINED AND CALLED TO KITCHEN. URINAL EMPTIED. NO FURTHER REQUESTS AT THIS TIME.
--- NOTE | 2020-02-26 07:40 | NUR ---
Update from Dr. Patel. Conditions is unchanged. Pt required rapid response team yesterday afternoon.
--- NOTE | 2020-02-26 12:36 | NUR ---
PT SITTING UP AT THE SIDE OF THE BED EATING LUNCH. ALERT AND ORIENTED X4, DENIES CHEST PAIN, SOB, AND NAUSEA. PT REPORTS GENERALIZED DISCOMFORT IS 2/10. PT STATES "I WISH I COULD RUN AWAY". CALL LIGHT IS W/N REACH.
--- NOTE | 2020-02-26 19:28 | NUR ---
PT REPORT RECIEVED, CARE OF PT ASSUMED AT THIS TIME.
--- NOTE | 2020-02-26 20:25 | NUR ---
IN ROOM FOR ASSESSMENT. PT UPSET, STATING HE CALLED OVER AN HOUR AND A HALF AGO ABOUT URINATING ON THE FLOOR AND NO ONE CAME TO CLEAN IT OR CHECK ON HIM. THERAPUETIC COMMUNICATION AT THIS TIME. PT STATES HE IS STILL CAN NOT HAVE A BOWEL MOVEMENT AND IS FRUSTRATED. DR COTTON UPDATED. PLAN TO SEE IF EVENING DOSES OF MIRILAX AND SENNA WORK, IF NOT PT WILL RECIEVE A SUPPOSITORY. PT AGREES TO PLAN. PT DENIES PAIN, NAUSEA, OR SHORTNESS OF BREATH.
--- NOTE | 2020-02-26 21:46 | NUR ---
PT GIVEN SUPPOSITORY AT THIS TIME. WELL TOLERATED BY PATIENT. CALL LIGHT WITHIN REACH. NO FURTHER NEEDS AT THIS TIME.
--- NOTE | 2020-02-27 00:10 | NUR ---
IN ROOM TO ASSESSMENT. PT DENIES PAIN, SHORTNESS OF BREATH. PT UP WATCHING TV. STATES "IM A NIGHT OWL" PT HAS STILL BEEN UNABLE TO HAVE A BOWEL MOVEMENT. CALL LIGHT WITHIN REACH. NO FURTHER NEEDS AT THIS TIME.
--- NOTE | 2020-02-27 02:00 | NUR ---
Pt resting with eyes closed. Breathing even and unlabored. Sp02 =97% on 2 L nc. call light within reach.
--- NOTE | 2020-02-27 04:00 | NUR ---
PT AWAKE AT BEDSIDE. DENIES ANY NEEDS AT THIS TIME.
--- NOTE | 2020-02-27 05:53 | NUR ---
ASSESSMENT COMPLETED, PT SLEEPING. NO LABS AT THIS TIME. NO COMPLAINTS OF PAIN, NAUSEA, SHORTNESS OF BREATH, OR ANXIETY.
--- NOTE | 2020-02-27 08:30 | NUR ---
Asked in report by Dr. Penaloza, plan for dc. Pt is wanting to go. feels pt should go to a SNF.
--- NOTE | 2020-02-27 08:57 | NUR ---
PT SITTING UP AT THE SIDE OF THE BED EATING BREAKFAST, ALERT AND ORIENTED X4. PT DOES NOT REPORT NAUSEA, SOB, OR PAIN AT THIS TIME. IV SITE IS INTACT, NO REDNESS OR SWELLING NOTED, FLUSHES EASILY. PT WASHED HANDS WITH HOT SOAPY WASH CLOTH PRIOR TO EATING. PT ABLE TO SEBASTIAN PO MEDS EASILY.
--- NOTE | 2020-02-27 10:40 | NUR ---
Called and spoke with pt by phone. He states he is really wanting to go home. Discussed his ability to stand and cook for self or provide self care. Pt states he is unsure as he feels he was overworked by PT. He is unsure if he can cook or shower self. He adamantly refuses to go the a SNF. Pt states he is claustrophobic and will not stay. States he is antsy here in the small room. Pt's plan is to go home to his house and have friends assist him. He will sit on his porch and friends will clean his home. Discussed this not a good plan, he is to go home ans isolate and not have company. He cont. to suggest ways friends could stay. Informed he will need to discuss with the Health Department, but he should not have friends in his home or be around his downstairs neighbors apartment. Discussed I'll speak with Dr. Penaolza about discharge. Dr. Penaloza updated to conversationa and suggest a Transitional Care Bed.
--- NOTE | 2020-02-27 11:20 | NUR ---
Spoke with Jared and information given for Transitional Care bed for PT/OT. Pt declines and states he will not give up his freedom. Reassured we are not attempting to take his freedom, but only want a safe discharge. Pt plans on dc in next 1-2 days. Asked if I can speak with his daughter and he states yes. Called and spoke with Sheila in [place], [place]. She states concern as she states pt has rickety stair he has to walk up to get to his apartment. Updated to our conversation. She plans on calling him Will follow up on Sunday, if pt is still here.
--- NOTE | 2020-02-27 12:55 | NUR ---
PT REPORTS NAUSEA, 4 MG IV ZOFRAN GIVEN. PT IV SITE IS INTACT, NO REDNESS OR SWELLING NOTED, FLUSHES EASILY. PT ABLE TO TAKE TWO BITES OF LUNCH AND THEN REQUEST TO THROW THE REST AWAY. PT VITALS ARE NOTED TO HAVE SLIGHTLY LOW BP AT 86/43 IN RT ARM, ADDITIONAL ONE TIME DOSE OF PO METOPROLOL 12.5 MG NOT GIVEN. BP TAKEN ON OTHER ARM, BP STILL NOTED TO LOW AT 99/60 IN LEFT ARM. PT LAYING BACK DOWN IN BED, PT REPORTS FEELING SAD AT NOT BEING ABLE TO GO HOME YET.
--- NOTE | 2020-02-27 13:33 | NUR ---
PT CALLED AND STATED HE WAS VOMITTING. HAD NOT VOMITTED YET, ADMINISTERED COMPAZINE. PT STATES HE FEELS LIKE HE HAS A HERNIA IN HIS STOMACH AREA.
--- NOTE | 2020-02-27 15:10 | NUR ---
ASSISTED PT TRANSFER TO MED/SURG ROOM 117, FULL REPORT GIVEN VIA PHONE TO YADIRA ALLISON, ALL QUESTIONS ANSWERED. PT TRANSFERED VIA THE BED, ALL PERSONAL BELONINGS WENT WITH PT TO NEW ROOM.
--- NOTE | 2020-02-27 15:52 | NUR ---
1535: Report received from Beth ALLISON and pt transfered to med surg room 117 in a negative pressure room. Pt asked about pain and he states he just feels tired at this time. Sat 95% on 2l at this time, unable to hear lung, heart or abd sounds due to wearing PAPR. He denies CP and states his breathing is okay. Pt oriented to his room to include the call moore and the use of his urinal so it can continue to be measured. VSS, see assessment.
--- NOTE | 2020-02-27 17:27 | NUR ---
Pt remains fatigued and drowsy and he states he just feels tired. He complained about the temp in the room and he was covered with a blanket and the temp in the room was increased to 75 degrees. He denies pain or sob at this time. His sat remains in the mid 90's on 2l. He was given his dinner but states he is not hungry and just wants to sleep. His dinner was left in case he changes his mind. Call moore within reach.
--- NOTE | 2020-02-27 19:15 | NUR ---
REPORT RECEIVED FROM KEEGAN MAY. pt RESTING IN BED WITH EYES CLOSED, RR 18. 2L OXYGEN BY NC IN PLACE. CALL LIGHT IN REACH.
--- NOTE | 2020-02-27 20:27 | NUR ---
CALL LIGHT ANSWERED, pt REQUESTING PERSONAL SUPPLIES, ELECTRIC SHAVER. PROVIDED REQUESTED. DENIES ANY PAIN. DENIES NAUSEA. pt FLAT, STATES "I THOUGHT I WAS BETTER THIS MORNING, NOW I FEEL LIKE CRAP AGAIN". pt ENCOURAGED TO REST. FRESH ICE WATER PROVIDED WITH SCHEDULED MEDICATIONS. URINAL EMPTIED. VSS. CALL LIGHT IN REACH.
--- NOTE | 2020-02-27 21:19 | NUR ---
CALL LIGHT ANSWERED. pt PROVIDED WITH REMOTE REQUESTED. NO ADDITIONAL REQUESTS, pt RESTING IN BED.
--- NOTE | 2020-02-27 21:31 | NUR ---
CALL LIGHT ANSWERED. pt REQUESTING pt GARBAGE BAG, PROVIDED REQUESTED. CALL LIGHT IN REACH.
--- NOTE | 2020-02-27 23:39 | NUR ---
CALL LIGHT ANSWERED. URINAL EMPTIED. pt PROVIDED WITH FRESH ICE WATER. BACK RUB PROVIDED REQUESTED. pt TALKATIVE AT THIS TIME, CONCERNED WITH DISCHARGE PLAN, QUARANTINING, HOW HE KNOWS WHEN TO BE OFF QUARANTINE. VERBALIZES UNDERSTANDING THAT GUESTS SHOULD NOT BE IN HIS HOUSE, CAN DROP OFF GROCERIES ON PORCH, AGREEABLE TO THIS. pt INFORMED THAT CASE MANAGEMENT WILL BE BY TO PROVIDED FURTHER INFORMATION FOR DISCHARGE. RESTING IN BED, CALL LIGHT IN REACH.
--- NOTE | 2020-02-28 00:51 | NUR ---
pt SITTING ON COUCH IN ROOM, ON CELL PHONE. BREATHING IS UNLABORED.
--- NOTE | 2020-02-28 02:10 | NUR ---
CHECKED ON pt. pt AWAKE, SITTING ON COUCH IN ROOM. APPEARS COMFORTABLE, BREATHING UNLABORED.
--- NOTE | 2020-02-28 04:23 | NUR ---
pt RESTING IN BED ON RIGHT SIDE. 2L OXYGEN BY NC IN PLACE. RR 16. LIGHTS OFF IN ROOM.
--- NOTE | 2020-02-28 06:36 | NUR ---
pt AWAKE, SITTING ON SIDE OF BED WHEN RN ENTERS ROOM. SCHEDULED MEDICATION ADMINISTERED. SPO2 94-96% ON RA. pt DENIES SOB. 2+ EDEMA BLE. NO C/O NAUSEA. BREAKFAST ORDER TAKEN. URINAL EMPTIED. pt CONTINUES TO ASK QUESTIONS ABOUT DISCHARGE PLANNING, UNDERSTANDING OF PLAN TO SPEAK WITH CASE MANAGEMENT AND MD ON SAFE DISCHARGE PLAN. CALL LIGHT IN REACH. ICE WATER PROVIDED.
--- NOTE | 2020-02-28 06:37 | NUR ---
pt WITH MINIMAL SLEEP THIS SHIFT, ANXIOUS REGARDING ADDITIONAL DAYS HOSPITAL STAY. pt REQUESTING TO GO HOME TODAY. EDUCATION PROVIDED THORUGHOUT SHIFT OF PREVENTION OF SPREAD OF COVID-19. pt WISHES TO QUARANTINE AT HOME, PLAN TO DISCUSS SAFE DISCHARGE PLAN TODAY WITH MD SARAN. IV SL. NO PRN MEDICATION FOR PAIN, NAUSEA. 2L OXYGEN BY NC IN PLACE WITH SLEEP, RA WHILE AWAKE. INDPENDENT IN ROOM. pt TOLERATING AMBULATION WELL, DENIES SOB.
--- NOTE | 2020-02-28 07:10 | NUR ---
REPORT RECEIVED. PT IN AIRBORN PRECAUTIONS. AWAKE SITTING AT EDGE OF BED. RESPIRATIONS EQUAL AND NONLABORED. CALL LIGHT IN REACH.
--- NOTE | 2020-02-28 08:37 | NUR ---
IN ROOM FOR MED PASS AND ASSESSMENT. PT INDEPENDENT IN ROOM. DENEIS SOB. REPORTS OCCATIONAL COUGH WITH MINIMAL SPUTUM PRODUCTIONS. 2+ EDEMA BILAT LE. REPORTS NO PAIN. ON RA AT 94%. VITALS TAKE CHRISTIANO WNL. AFEBRILE. ATE 100% OF BREAKFAST. VOIDED 100ML. NO NAUSEA/VOMITTING. PT IS ALERT AND ORIENTED X4. CALL LIGHT IN REACH. DENEIS FURTHER NEEDS.
--- NOTE | 2020-02-28 12:24 | NUR ---
PHYSICAL THERAPY IN TO WORK WITH PT.
--- NOTE | 2020-02-28 12:40 | NUR ---
PT SITTING AT SIDE OF BED EATING LUNCH.
--- NOTE | 2020-02-28 14:35 | NUR ---
PT REPORTING ABDOMINAL PAIN AND BLOATING AFTER EATING. MALOXX ORDERED AND TYLENOL OFFERED. PT REFUSED TYLENOL. ASSESSMENT CFOMPLETED. 91% ON RA. ENCOURAGED IS USE. PT REPORTS SCANT AMOUNT OF WHITE SPUTUM WITH OCCATIONAL COUGH. ABDOMEN MILDLY DISTENDED. PT REPORTS THIS HAPPENS SOMETIMES AFTER EATING TOO MUCH. VOIDED 200ML. 1 SMALL FIRM BM TODAY.
--- NOTE | 2020-02-28 16:32 | NUR ---
DR COTTON IN TO ROUND ON PT.
--- NOTE | 2020-02-28 17:52 | NUR ---
PT HAD GOOD. INDEPENDENT IN ROOM. PRN O2 WHILE SLEEPING. LACTULOSE FOR HARD STOOLS GIVEN. SOEM ABDOMINAL DISCOMFORT. MALOXX GIVEN. NO PAIN. NO SOB. VOIDING WELL. EATING WELL. 2+ EDEMA BILAT LE. WORKED WELL WITH PT TODAY TAKING 7 STEP UPS IN ROOM. ENCOURAGE IS. SALINE LOCKED.
--- NOTE | 2020-02-28 19:00 | NUR ---
SHIFT REPORT RECEIVED FROM DAYSHIFT KEEGAN MIXON IN HALLWAY. PT ON AIRBORNE PRECAUTIONS, PT RESTING IN BED WITH EYES CLOSED. 2LNC IN PLACE, RR EVEN AND UNLABORED. NO DISTRESS NOTED, CALL LIGHT IN REACH.
--- NOTE | 2020-02-28 19:42 | NUR ---
PT CALLING AND REPORTING STOMACH PAIN, PT [place]. THIS RN IN ROOM WITH CHIQUITA ROPER. PT RESTLESS AND MOVING FROM BED TO CHAIR TO SOFA. RN ATTEMPTED TO CLARIFY PAIN VERSES NAUSEA. WILL MONITOR, NO FURTHER NEEDS. CALL LIGHT IN REACH.
--- NOTE | 2020-02-28 20:30 | NUR ---
PT AGAIN CALLING AND REPORTING OF ABD PAIN, ALL SCHEDULED MEDS ALONG WITH PRN TYLENOL GIVEN FOR 9/10 PAIN (SEE EMAR). PT HAS NEGATIVE ATTITUDE TOWARDS BOWEL MEDS, STATING "WELL I TOOK SOME TODAY AND THEY'RE NOT DOING ANYTHING". EDUCATION PROVIDED ON CONSTIPATION AND TIME OF ONSET/ACTION OF MEDS. PT ALSO RELUCANT TO TAKE SCHEDULED MELATONIN, DOSE CUT IN HALF INSTRUCTED DURING SHIFT REPORT. PT STATES, "IT'LL MAKE ME SLEEP". AGAIN, EDUCATION PROVIDED ON USE OF MED AND POSSIBLE RELAXATION/ABILITY TO REST FROM MED. PT AGREES TO TAKE. PT UP TO BATHROOM WITH FWW TO ATTEMPT BM, NO FURTHER NEEDS. CALL LIGHT IN BATHROOM IN REACH.
--- NOTE | 2020-02-28 21:30 | NUR ---
PT CALLED MULTIPLE TIMES CLAIMING HE HAD ABM AND WANTED TO SAVE IT FOR THE NURSE. PT INSTRUCTED VIA CALL LIGHT HE COULD FLUSH THE BM. PT REPORTS HE IS FEELING "BETTER". CURRENTLY RESTING IN BED, WILL MONITOR. CALL LIGHT IN REACH.
--- NOTE | 2020-02-28 22:15 | NUR ---
PT RESTING IN BED WITH EYES CLOSED. 2LNC IN PLACE, RR EVEN AND UNLABORED. NO DISTRESS NOTED, PT APPEARS COMFORTABLE AT THIS TIME. CALL LIGHT IN REACH.
--- NOTE | 2020-02-28 23:22 | NUR ---
PT RESTING IN BED WITH EYES CLOSED. 2LNC IN PLACE, NO DISTRESS NOTED. PT APPEARS COMFORTABLE AND RELAXED AT THIS TIME. CALL LIGHT IN REACH.
--- NOTE | 2020-02-29 01:42 | NUR ---
PT RESTING QUIETLY IN BED, BACK TO DOOR. LAYING ON RIGHT LATERAL, 2LNC REMAIN IN PLACE. RR APPROX 16-18, EVEN AND UNLABORED. NO DISTRESS OR SIGNS OF PAIN NOTED. CALL LIGHT IN EASY REACH. URINAL AND WATER AT BEDSIDE.
--- NOTE | 2020-02-29 04:15 | NUR ---
PT SITTING ON EGE OF BED, RR EVEN AND UNLABORED. NO DISTRESS NOTED. CALL LIGHT IN REACH.
--- NOTE | 2020-02-29 05:41 | NUR ---
PT RESTING IN BED, BACK TOWARDS DOOR. 2LNC IN PLACE, RR EVEN AND UNLABORED. NO DISTRESS NOTED. CALL LIGHT IN REACH.
--- NOTE | 2020-02-29 06:40 | NUR ---
SCHEDULED THYROID MED GIVEN (SEE EMAR). VSS AND I&O'S DONE. PT AWAKE AND RESTING ON COUCH, APPEARS IN GOOD SPIRITS AT THIS TIME, NO DISTRESS NOTED. PT DENIES PAIN, SOB, ABD PAIN, AND NAUSEA. PT STATES, "I FEEL BETTER THAN I DID EARLIER. I POOPED THREE TIMES LAST NIGHT". MODIFIED ASSESSMENT COMPLETE D/T PAPR. FRESH WATER AT BEDSIDE, NO FURTHER NEEDS, CALL LIGHT IN REACH.
--- NOTE | 2020-02-29 06:52 | NUR ---
PT STRUGGLED AT START OF SHIFT DUE TO ABD PAIN RELATED TO CONSTIPATION. PRN ZOFRAN GIVEN X1 ALONG WITH PRN TYLENOL AND SCHEDULED BOWEL MEDS. ISSUE RESOLVED DURING THE NIGHT AND PT REPORTS HAVING 3 BM'S THROUGHOUT THE SHIFT. INDEPENDENT IN ROOM, VOIDING QS. ADA DIET, NO SCHEDULED ACCUCHECKS. VSS, PT DENIED SOB DURING SHIFT.
--- NOTE | 2020-02-29 08:17 | NUR ---
PT SITTING UP IN ROOM, BREAKFAST JUST DELIVERED, STATES HE IS HUNGRY, NO RESP DISTRESS, OCCASIONAL LOOSE PROD COUGH, AFEBRILE, SCHEDULED MEDS GIVEN, DENIES FURTHER NEEDS.
--- NOTE | 2020-02-29 10:00 | NUR ---
PT IS SITTING UP IN RECLINER, UP ABOUT ROOM INDEP, NEWSPAPER BROUGHT TO ROOM, VISITED WITH PATIENT. DENIES ANY NEEDS, LUNCH ORDERED.NO RESP DISTRESS. OCCASIONAL COUGH. CALL LIGHT IN EASY REACH.
--- NOTE | 2020-02-29 13:28 | NUR ---
ATE 100% OF LUNCH, TAKING FLUIDS WELL, DENIES ANY NEEDS.
--- NOTE | 2020-02-29 16:00 | NUR ---
DR COTTON IN TO SEE PT, PT C/O INCREASED GAS PAINS, NO MORE DIARRHEA SINCE THIS MORNING, ORDERED DINNER. DENIES ANY NEEDS.
--- NOTE | 2020-02-29 18:00 | NUR ---
PT HAS HAD A GOOD DAY, HAS BEEN UP ABOUT ROOM INDEP. GOOD APPETITE, TAKING FLUIDS WELL, OCCASIONAL PROD COUGH, CLEARS EASILY, REMAINS AFEBRILE, FEELS HE IS GETTING BETTER. IN GOOD SPIRITS. USES CALL LIGHT APPROPRIATE.
--- NOTE | 2020-02-29 21:30 | NUR ---
ASSESSMENT AND MEDICATION ADMINISTRATION WITH PAPR PPE. PT LAYING IN BED. VSS. PT STATES HE FEELS "IN A FOG". PT STATES HE WAS SLEEPING AND IS FEELING THIS WAY SINCE WAKING UP. BLOOD GLUCOSE 156 BY GLUCOMETER. PT ENCOURAGED TO KEEP NC WITH O2 IN NOSE HE HAS BEEN REMOVING IT. PT IS 93% SPO2 WITH 2L PER NC. PT STOOD UP TO USE URINAL. RT ALSO WAS IN ROOM TO ENCOURAGE ACAPELLA USE. PT CHOOSES TO SIT IN RECLINER AT THIS TIME. NO FURTHER NEEDS AT THIS TIME. THIS NURSE ENCOURAGED PT TO CALL FOR ASSISTANCE AND TO USE FWW WHEN MOVING ABOUT THE ROOM.
--- NOTE | 2020-02-29 23:07 | NUR ---
VIEWED PT THROUGH GLASS DOOR. PT HAS RETURNED TO BED AND IS LAYING RIGHT LATERAL. NO APPARENT SIGNS OF DISTRESS.
--- NOTE | 2020-03-01 00:44 | NUR ---
pt LAYING ON RIGHT SIDE. EVEN UNLABORED BREATHING. NO APPARENT SIGNS OF DISTRESS. LIGHTS ON IN ROOM.
--- NOTE | 2020-03-01 02:00 | NUR ---
pt IN BED. HAD BEEN UP TO USE URINAL. HAS REPOSITIONED AND COVERED HIMSELF UP. NO APPARENT SIGNS OF DISTRESS.
--- NOTE | 2020-03-01 05:09 | NUR ---
ASSESSMENT COMPLETE. PT WAS ON TOILET TO VOID. PT AMBULATED WITH FWW AND HAD REMOVED THE NASAL CANNULA. PT RETURNED TO BED AND IS IN BETTER SPIRITS HE FEELS THE "FOG HAS LIFTED" THAT HE WAS FEELING AT THE BEGINNING OF THIS SHIFT. VSS. FRESH WATER PROVIDED, CALL LIGHT WITHIN REACH.
--- NOTE | 2020-03-01 06:23 | NUR ---
PT REPORTS THAT HE SLEPT FAIRLY WELL THROUGH THE NIGHT. PT SEEMED STRESSED/WORRIED AT BEGINNING OF SHIFT AND REPORTED FEELING LIKE HE WAS " IN A FOG". PT STATES THAT THIS AM HE FEELS BETTER. URINE OUTPUT IS GOOD. PT TAKES OFF NC SOMETIMES BUT SPO2 STAYS ABOVE 90%. PT MOVED INDEPENDENTLY IN ROOM WITH FWW AND ALSO USES THE URINAL BEDSIDE. VSS.
--- NOTE | 2020-03-01 09:40 | NUR ---
Pt sitting eating breakfast at this time. Pt denies sob and pain at this time. Pt reports sob when he is in bed at night. Pt's vital signs are stable at this time. Pt remains on room air, respirations are even and non labored. Pt has no needs. Call light within reach.
--- NOTE | 2020-03-01 12:39 | NUR ---
Pt sitting up in bed at this time, respirations even and non labored on room air. Pt denies pain. Lunch set up for pt. Pt denies sob. No needs at this time. Call light within reach.
--- NOTE | 2020-03-01 13:36 | NUR ---
Sudafed 30mg po admin for congestion.
--- NOTE | 2020-03-01 16:11 | NUR ---
Pt sitting on couch resting, A&ox4. Pt denies sob and pain. Pt on 2L of oxygen, 02 saturation level of 95%. Pt has no needs. Personal supplies and call light within reach.
--- NOTE | 2020-03-01 18:48 | NUR ---
PATIENT SITTING UP ON THE EDGE OF THE BED. VITAL SIGNS AND I&O DONE. SETS UP TABLE FOR DINNER. CALL LIGHT WITHIN REACH. NO OTHER NEEDS AT THIS TIME
--- NOTE | 2020-03-01 19:40 | NUR ---
REPORT RECEIVED FROM NURSE REEDER. pt SITTING ON SOFA COMFORTABLY. NO SIGNS OF DISTRESS.
--- NOTE | 2020-03-01 21:58 | NUR ---
ASSESSMENT COMPLETE. PT IN GOOD SPIRITS, GLAD ABOUT POSSIBLE DISCHARGE TOMORROW. VSS. PT REQUESTS PRN MELATONIN BUT ONLY 1/2 TABLET. pt STATES AT HOME HE DOESNT GO TO BED UNTIL 0300.pt IS INDEPENDENT IN ROOM. NO FURTHER REQUESTS AT THIS TIME.
--- NOTE | 2020-03-01 23:48 | NUR ---
ROUND COMPLETE. PT IN BED SLEEPING, LAYING LEFT LATERAL. NO APPARENT SIGNS OF DISTRESS.
--- NOTE | 2020-03-02 02:33 | NUR ---
PT LAYING IN BED RIGHT LATERAL, APPEARS TO BE SLEEPING. NO APPARENT SIGNS OF DISTRESS.
--- NOTE | 2020-03-02 06:12 | NUR ---
PT REPORTS HE SLEPT WELL TONIGHT. VSS. PT REMAINS INDEPENDENT IN THE ROOM. SPO2 IS 97% WITH 2L NC. PT FEELS COMFORTED BY THE NASAL CANNULA ALTHOUGH DOES OCCASIONALLY REMOVE. PT REPORTS NO PAIN. PT USES URINAL OR TOILET FOR VOIDS. PT AMBULATES WITH FWW.
--- NOTE | 2020-03-02 07:11 | NUR ---
REPORT RECEIVED FROM KEEGAN CASTILLO. PT UP TO COUCH, PT TOLERATING ROOM AIR WITH O2 SATURATION AT 95%. PT ANTICIPATING BREAKFAST. PT DENIES REQUESTS OR COMPLAINTS AT THIS TIME. CALL LIGHT WITHIN REACH.
--- NOTE | 2020-03-02 09:11 | NUR ---
PATIENT SITTING UP ON THE EDGE OF THE BED. VITAL SIGNS AND I&O DONE. CALL LIGHT WITHIN REACH. NO OTHER NEEDS AT THIS TIME
--- NOTE | 2020-03-02 09:18 | NUR ---
MORNING ASSESSMENT AND MEDICATION DUE. PT UP TO CHAIR. PT DENIES PAIN, NAUSEA AND SHORTNESS OF BREATH. ASSESSMENT DONE. LUNG SOUNDS CLEAR. PT DEMONSTRATES USE OF I.S. REACHING 1600ML. O2 AT 93% ON ROOM AIR. MEDICATIONS GIVEN (SEE MAR). PT UPDATED ON PLAN FOR DISCHARGE. PHARMACIST CALLED ON TELEPHONE TO REVIEW MEDICATIONS WITH PT. DISCHARGE INSTRUCTIONS REVIEWED WITH PT. PT VERBALIZES UNDERSTANDING OF INSTRUCTIONS, MEDICATIONS AND FOLLOW UP. PT DRESSES SELF AND CALLS FRIENDS FOR A RIDE HOME. IV DC'D PER PROTOCOL. DALE AND AGNIESZKA APPLIED. PT AWIATING ARRIVAL OF FRIENDS. NO ADDITIONAL REQUESTS OR COMPLAINTS AT THIS TIME.
--- NOTE | 2020-03-02 09:50 | NUR ---
PTS FRIEND ARRIVED FOR TRANSPORT HOME. PT TRANSFERES SELF TO WHEELCHAIR. MASK IN PLACE. PT WHEELED WITH ALL BELONGINGS TO MEET FRIENDS. PT AND FRIENDS ADVISED TO KEEP MASK IN PLACE WHILE IN THE CAR FOR TRANSPORTATION HOME. PT VERBAIZES UNDERSTANDING AND STATES HE WILL REMAIN ISOLOATED PER INSTRUCTIONS. NO ADDITIONAL REQUESTS OR CONCERNS.
== END 2020-03-02 09:50 | disposition home or self-care (01) | DRG 177 ==
LOC: ED 10:31 → CCU 16:31 → MS 02-27 15:52
PROVIDERS: ADMIT Internal Medicine
DX: U07.1 COVID-19 (principal); J12.89 Other viral pneumonia; J96.01 Acute respiratory failure with hypoxia; I50.22 Chronic systolic (congestive) heart failure; E03.9 Hypothyroidism, unspecified; E78.5 Hyperlipidemia, unspecified; K21.9 Gastro-esophageal reflux disease without esophagitis; H91.90 Unspecified hearing loss, unspecified ear; I11.0 Hypertensive heart disease with heart failure; G47.30 Sleep apnea, unspecified; E11.9 Type 2 diabetes mellitus without complications; K76.0 Fatty (change of) liver, not elsewhere classified; K59.00 Constipation, unspecified; Z86.73 Personal history of transient ischemic attack (TIA), and cerebral infarction without residual deficits; Z95.810 Presence of automatic (implantable) cardiac defibrillator; Z88.8 Allergy status to other drugs, medicaments and biological substances; Z88.0 Allergy status to penicillin; Z88.5 Allergy status to narcotic agent; Z79.84 Long term (current) use of oral hypoglycemic drugs; Z79.02 Long term (current) use of antithrombotics/antiplatelets; Z79.82 Long term (current) use of aspirin; Z79.899 Other long term (current) drug therapy
CPT/HCPCS: 71045; 71260; 80048; 80053; 81001; 83605; 83615; 83735; 83880; 84484; 85025; 85379; 86140; 87040; 94668; 96361; 97110; 97116; 97162; 97530; 99285-25; C9803; J0456; J0696; J0780; J1170; J1200; J1650; J1815; J2060; J2405; J7030; J7050; J7060; Q9967; U0002

== ENCOUNTER 2021-07-04 10:52 | Emergency (ER) | payer MEDICARE ==
[~2021-07-04] VITALS: Ht 177.8 cm; Wt 100.7 kg
[~2021-07-04 10:52] MED LIST changes: +OMEPRAZOLE20 MG PO
--- OUTSIDE RECORDS SUMMARY | 2021-07-04 11:00 | XMS ---
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 Care History Medical/Surgical 05/27/2019 [facility] - PATIENT HAS A RESPONDER DR BAZAN AT [facility]. Josie VISIT COUNT (12 MO.) 1 [facility]. TOTAL 1 NOTE: Visits indicate total known visits. ED/UCC VISIT TRACKING (12 MO.) 07/04/2021 10:54 [facility] [place] TYPE: Emergency COMPLAINT: - VOMITING INPATIENT VISIT TRACKING (12 MO.) No inpatient visits to display in this time frame [id number]
== END 2021-07-04 17:02 | disposition home or self-care (01) ==
LOC: ED 10:52
DX: R10.31 Right lower quadrant pain (principal); R11.0 Nausea; I10 Essential (primary) hypertension; Z95.0 Presence of cardiac pacemaker; Z90.89 Acquired absence of other organs; Z88.5 Allergy status to narcotic agent; Z88.0 Allergy status to penicillin; Z88.8 Allergy status to other drugs, medicaments and biological substances; Z79.02 Long term (current) use of antithrombotics/antiplatelets; Z79.899 Other long term (current) drug therapy; Z79.82 Long term (current) use of aspirin
CPT/HCPCS: 74177; 80053; 81001; 83735; 85025; 96375; 99284-25; J1170; J2060; J2405; J7030

== ENCOUNTER 2021-07-07 14:15 | Emergency (ER) | payer MEDICARE ==
[~2021-07-07] VITALS: Ht 177.8 cm; Wt 102.1 kg
--- OUTSIDE RECORDS SUMMARY | 2021-07-07 14:20 | XMS ---
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 Care History Medical/Surgical 05/27/2019 [facility] - PATIENT HAS A PUBLIC HEALTH DIETITIAN DR BAZAN AT [facility]. Josie VISIT COUNT (12 MO.) 2 [facility]. TOTAL 2 NOTE: Visits indicate total known visits. ED/UCC VISIT TRACKING (12 MO.) 07/07/2021 14:16 [facility] [place] TYPE: Emergency COMPLAINT: - ABDOMINAL PAIN, NAUSEA 07/04/2021 10:54 [facility] [place] TYPE: Emergency COMPLAINT: - VOMITING INPATIENT VISIT TRACKING (12 MO.) No inpatient visits to display in this time frame [id number]
== END 2021-07-07 18:46 | disposition home or self-care (01) ==
LOC: ED 14:15
DX: K59.00 Constipation, unspecified (principal); I10 Essential (primary) hypertension; Z95.0 Presence of cardiac pacemaker; Z90.89 Acquired absence of other organs; Z88.5 Allergy status to narcotic agent; Z88.8 Allergy status to other drugs, medicaments and biological substances; Z88.0 Allergy status to penicillin; Z79.02 Long term (current) use of antithrombotics/antiplatelets; Z79.899 Other long term (current) drug therapy
CPT/HCPCS: 74177; 80053; 83690; 85025; 99284-25; J2405; Q9967; U0003

== ENCOUNTER 2021-08-10 11:30 | Emergency (ER) | payer MEDICARE ==
[~2021-08-10] VITALS: Ht 177.8 cm; Wt 102.1 kg
--- NOTE | ~2021-08-10 | EKG ---
[facility] [address] [place], [place] [address] Draft EK completed, results pending confirmation PATIENT NAME: FRANCI VELÁZQUEZ Electrocardiogram DATE OF : 49 PHYSICIAN: PRELIMINARY REPORT #: [id number] REPORT IS CONFIDENTIAL AND NOT TO BE RELEASED WITHOUT AUTHORIZATION
--- OUTSIDE RECORDS SUMMARY | 2021-08-10 11:32 | XMS ---
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 Care History Medical/Surgical 05/27/2019 [facility] - PATIENT HAS A BAKERY HELPER DR BAZAN AT [facility]. Josie VISIT COUNT (12 MO.) 3 [facility]. TOTAL 3 NOTE: Visits indicate total known visits. ED/UCC VISIT TRACKING (12 MO.) 08/10/2021 11:31 [facility] [place] TYPE: Emergency COMPLAINT: - DIZZINESS, LIGHT HEADED, NAUSEA, LOW B/P 07/07/2021 14:16 [facility] [place] TYPE: Emergency COMPLAINT: - ABDOMINAL PAIN, NAUSEA DIAGNOSES: - Allergy status to narcotic agent - Allergy status to penicillin - Constipation, unspecified - Acquired absence of other organs - Right lower quadrant pain - Essential (primary) hypertension - Presence of cardiac pacemaker - Allergy status to other drugs, medicaments and biological substances - Other terminal supervisor (current) drug therapy - meterman (current) use of antithrombotics/antiplatelets 07/04/2021 10:54 [facility] [place] TYPE: Emergency COMPLAINT: - VOMITING DIAGNOSES: - Allergy status to penicillin - Presence of cardiac pacemaker - Right lower quadrant pain - Nausea - Allergy status to other drugs, medicaments and biological substances - meterman (current) use of aspirin - Other terminal supervisor (current) drug therapy - Essential (primary) hypertension - Allergy status to narcotic agent - [facility] (current) use of antithrombotics/antiplatelets - Acquired absence of other organs INPATIENT VISIT TRACKING (12 MO.) No inpatient visits to display in this time frame [email or web address]
[2021-08-10] MEDS ORDERED: ALPRAZOLAM1 MG PO (12:17)
[2021-08-10] MEDS ORDERED: LISINOPRIL5 MG PO (12:18)
[2021-08-10] MEDS ORDERED: AMIODARONE HCL200 MG PO (12:18)
[2021-08-10] MEDS ORDERED: ATORVASTATIN CA20 MG PO (12:18)
[2021-08-10] MEDS ORDERED: CLOPIDOGREL75 MG PO (12:18)
[2021-08-10] MEDS ORDERED: LEVOTHYROXINE100 MCG PO (12:19)
[2021-08-10] MEDS ORDERED: METFORMIN HCL500 MG PO (12:19)
== END 2021-08-10 17:20 | disposition home or self-care (01) ==
LOC: ED 11:30
DX: R55 Syncope and collapse (principal); I10 Essential (primary) hypertension; Z88.8 Allergy status to other drugs, medicaments and biological substances; Z88.5 Allergy status to narcotic agent; Z88.0 Allergy status to penicillin; Z88.1 Allergy status to other antibiotic agents; Z79.899 Other long term (current) drug therapy; Z79.84 Long term (current) use of oral hypoglycemic drugs; Z79.82 Long term (current) use of aspirin; Z20.822 Contact with and (suspected) exposure to COVID-19
CPT/HCPCS: 71045; 76775; 80053; 84484; 85025; 85610; 93005; 93010; 99284-25; J7030; U0003

== ENCOUNTER 2021-08-19 16:31 | Emergency (ER) | payer MEDICARE, OTHER ==
[~2021-08-19] VITALS: Ht 177.8 cm; Wt 102.1 kg
[~2021-08-19 16:31] MED LIST changes: +ALPRAZOLAM1 MG PO; +ATORVASTATIN CA20 MG PO; +CLOPIDOGREL75 MG PO; +LEVOTHYROXINE100 MCG PO; +METFORMIN HCL500 MG PO
--- OUTSIDE RECORDS SUMMARY | 2021-08-19 16:34 | XMS ---
PreManage Notification: FRANCI VELÁZQUEZ Security Medicaid Plan Compliance Director Events No recent Security Events currently on file CRITERIA MET - Group Notification - [facility] - 2 Visits in 30 Days CARE PROVIDERS SEN [place]INDRES Physician Bedspread Cutter 07/05/2021-Current PHONE: [phone] [place] has no Care Guidelines for this patient. Care History Medical/Surgical 05/27/2019 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 Josie VISIT COUNT (12 MO.) 4 [facility]. TOTAL 4 NOTE: Visits indicate total known visits. ED/UCC VISIT TRACKING (12 MO.) 08/19/2021 16:31 [facility] [place] TYPE: Emergency COMPLAINT: - GROIN PAIN 08/10/2021 11:31 [facility] [place] TYPE: Emergency COMPLAINT: - DIZZINESS, LIGHT HEADED, NAUSEA, LOW B/P DIAGNOSES: - Allergy status to penicillin - Other superintendent terminal (current) drug therapy - Syncope and collapse - Dizziness and giddiness - technician terminal and repeater (current) use of aspirin - Allergy status to narcotic agent - Allergy status to other drugs, medicaments and biological substances - Allergy status to other antibiotic agents - care home (current) use of oral hypoglycemic drugs - Essential (primary) hypertension 07/07/2021 14:16 [facility] [place] TYPE: Emergency COMPLAINT: - ABDOMINAL PAIN, NAUSEA DIAGNOSES: - Allergy status to narcotic agent - Allergy status to penicillin - Constipation, unspecified - Acquired absence of other organs - Right lower quadrant pain - Essential (primary) hypertension - Presence of cardiac pacemaker - Allergy status to other drugs, medicaments and biological substances - Other senior care (current) drug therapy - care home (current) use of antithrombotics/antiplatelets [facility] COMPLAINT: - VOMITING DIAGNOSES: - Allergy status to penicillin - Presence of cardiac pacemaker - Right lower quadrant pain - Nausea - Allergy status to other drugs, medicaments and biological substances - technician terminal and repeater (current) use of aspirin - Other superintendent terminal (current) drug therapy - Essential (primary) hypertension - Allergy status to narcotic agent - care home (current) use of antithrombotics/antiplatelets - Acquired absence of other organs INPATIENT VISIT TRACKING (12 MO.) No inpatient visits to display in this time frame [id number]
[2021-08-19] MEDS ORDERED: ULTRAM50 MG PO (19:20)
== END 2021-08-19 19:34 | disposition home or self-care (01) ==
LOC: ED 16:31
DX: R10.31 Right lower quadrant pain (principal); I10 Essential (primary) hypertension; G47.30 Sleep apnea, unspecified; Z88.5 Allergy status to narcotic agent; Z88.8 Allergy status to other drugs, medicaments and biological substances; Z88.0 Allergy status to penicillin; Z88.1 Allergy status to other antibiotic agents; Z79.899 Other long term (current) drug therapy; Z79.82 Long term (current) use of aspirin
CPT/HCPCS: 76857; 85025; 96372; 99284-25; J2270

== ENCOUNTER 2022-01-18 09:01 | Emergency (ER) | payer MEDICARE ==
[~2022-01-18] VITALS: Ht 177.8 cm; Wt 102.7 kg
[~2022-01-18 09:01] MED LIST changes: +FUROSEMIDE20 MG PO; +ULTRAM50 MG PO
--- OUTSIDE RECORDS SUMMARY | 2022-01-18 09:04 | XMS ---
PreManage Notification: FRANCI VELÁZQUEZ Security Psych Np Events No recent Security Events currently on file CRITERIA MET - [facility] - 2 Visits in 30 Days - Group Notification CARE PROVIDERS SEN [place] Physician Senior Erp Consultant 07/05/2021-Current PHONE: [phone] [place] has no Care Guidelines for this patient. Care History Medical/Surgical 05/27/2019 [facility] - PATIENT HAS A INFORMATION TECHNOLOGY INTERN DR BAZAN AT [facility]. Josie VISIT COUNT (12 MO.) 6 [facility]. TOTAL 6 NOTE: Visits indicate total known visits. ED/UCC VISIT TRACKING (12 MO.) 01/18/2022 09:03 [facility] [place] TYPE: Emergency COMPLAINT: - FALL, FOGGY, WEAK, L KNEE INJURY 01/17/2022 18:58 [facility] [place] TYPE: Emergency COMPLAINT: - DIZZINESS 08/19/2021 16:31 [facility] [place] TYPE: Emergency COMPLAINT: - GROIN PAIN DIAGNOSES: - Essential (primary) hypertension - Right lower quadrant pain - Allergy status to other antibiotic agents - Allergy status to penicillin - long-term (current) use of aspirin - Allergy status to other drugs, medicaments and biological substances - Sleep apnea, unspecified - Other watermelon inspector (current) drug therapy - Allergy status to narcotic agent 08/10/2021 11:31 [facility] [place] TYPE: Emergency COMPLAINT: - DIZZINESS, LIGHT HEADED, NAUSEA, LOW B/P DIAGNOSES: - Allergy status to penicillin - Other half-way (current) drug therapy - Syncope and collapse - Dizziness and giddiness - long-term (current) use of aspirin - Allergy status to narcotic agent - Allergy status to other drugs, medicaments and biological substances - Allergy status to other antibiotic agents - vermin exterminator (current) use of oral hypoglycemic drugs - Essential (primary) hypertension - Contact with and (suspected) exposure to COVID-19 07/07/2021 14:16 [facility] [place] TYPE: Emergency COMPLAINT: - ABDOMINAL PAIN, NAUSEA DIAGNOSES: - Allergy status to narcotic agent - Allergy status to penicillin - Constipation, unspecified - Acquired absence of other organs - Right lower quadrant pain - Essential (primary) hypertension - Presence of cardiac pacemaker - Allergy status to other drugs, medicaments and biological substances - Other half-way (current) drug therapy - vermin exterminator (current) use of antithrombotics/antiplatelets 07/04/2021 10:[address] [facility] [place] TYPE: Emergency COMPLAINT: - VOMITING DIAGNOSES: - Allergy status to penicillin - Presence of cardiac pacemaker - Right lower quadrant pain - Nausea - Allergy status to other drugs, medicaments and biological substances - long-term (current) use of aspirin - Other half-way (current) drug therapy - Essential (primary) hypertension - Allergy status to narcotic agent - long-term (current) use of antithrombotics/antiplatelets - Acquired absence of other organs INPATIENT VISIT TRACKING (12 MO.) No inpatient visits to display in this time frame [id number]
[2022-01-18] MEDS ORDERED: ULTRAM50 MG PO (11:22)
== END 2022-01-18 16:24 | disposition home or self-care (01) ==
LOC: ED 09:01
DX: S20.212A Contusion of left front wall of thorax, initial encounter (principal); S80.02XA Contusion of left knee, initial encounter; U07.1 COVID-19; I10 Essential (primary) hypertension; Z95.0 Presence of cardiac pacemaker; Z88.5 Allergy status to narcotic agent; Z88.0 Allergy status to penicillin; Z88.8 Allergy status to other drugs, medicaments and biological substances; Z79.01 Long term (current) use of anticoagulants; Z79.899 Other long term (current) drug therapy; Z79.82 Long term (current) use of aspirin; W18.30XA Fall on same level, unspecified, initial encounter; Y92.9 Unspecified place or not applicable
CPT/HCPCS: 36415; 71101; 73560; 80048; 83880; 85025; 87502; 96374; 99283-25; A9270; C9803; U0003

== ENCOUNTER 2022-03-02 15:12 | Emergency (ER) | payer MEDICARE, OTHER ==
[~2022-03-02] VITALS: Ht 177.8 cm; Wt 102.5 kg
--- OUTSIDE RECORDS SUMMARY | 2022-03-02 15:14 | XMS ---
PreManage Notification: FRANCI VELÁZQUEZ Security Laser Beam Machine Operator Events No recent Security Events currently on file CRITERIA MET - PDMP - Group Notification CARE PROVIDERS [place] Physician Real Estate Subagent 07/05/2021-Current PHONE: [phone] [place] has no Care Guidelines for this patient. Care History Medical/Surgical 05/27/2019 [facility] - PATIENT HAS A SUPERVISORY HISTORIAN DR BAZAN AT [facility]. Josie VISIT COUNT (12 MO.) 7 [facility]. TOTAL 7 NOTE: Visits indicate total known visits. ED/UCC VISIT TRACKING (12 MO.) 03/02/2022 15:12 [facility] [place] TYPE: Emergency COMPLAINT: - CHEST PAIN 01/18/2022 09:03 [facility] [place] TYPE: Emergency COMPLAINT: - FALL, FOGGY, WEAK, L KNEE INJURY DIAGNOSES: - COVID-19 - Pain in left knee - Allergy status to other drugs, medicaments and biological substances - Contusion of left front wall of thorax, initial encounter - Allergy status to penicillin - Other retirement (current) drug therapy - Presence of cardiac pacemaker - special education professor (current) use of aspirin - Essential (primary) hypertension - Allergy status to narcotic agent - Fall on same level, unspecified, initial encounter - Unspecified place or not applicable - Contusion of left knee, initial encounter - [facility] (current) use of anticoagulants 01/17/2022 18:58 [facility] [place] TYPE: Emergency COMPLAINT: - DIZZINESS DIAGNOSES: - Other header up (current) drug therapy - Allergy status to other drugs, medicaments and biological substances - special education professor (current) use of aspirin - Presence of cardiac pacemaker - Hypertensive heart disease with heart failure - Allergy status to penicillin - [facility] (current) use of antithrombotics/antiplatelets - Weakness - Heart failure, unspecified - Allergy status to narcotic agent 08/19/2021 16:31 [facility] [place] TYPE: Emergency COMPLAINT: - GROIN PAIN DIAGNOSES: - Essential (primary) hypertension - Right lower quadrant pain - Allergy status to other antibiotic agents - Allergy status to penicillin - special education professor (current) use of aspirin - Allergy status to other drugs, medicaments and biological substances - Sleep apnea, unspecified - Other retirement (current) drug therapy - Allergy status to narcotic agent 08/10/2021 11:31 [facility] [place] TYPE: Emergency COMPLAINT: - DIZZINESS, LIGHT HEADED, NAUSEA, LOW B/P DIAGNOSES: - Allergy status to penicillin - Other header up (current) drug therapy - Syncope and collapse - Dizziness and giddiness - special education professor (current) use of aspirin - Allergy status to narcotic agent - Allergy status to other drugs, medicaments and biological substances - Allergy status to other antibiotic agents - FPC (current) use of oral hypoglycemic drugs - [...] drugs, medicaments and biological substances - Other header up (current) drug therapy - [facility] (current) use of antithrombotics/antiplatelets 07/04/2021 10:54 [facility] [place] TYPE: Emergency COMPLAINT: - VOMITING DIAGNOSES: - Allergy status to penicillin - Presence of cardiac pacemaker - Right lower quadrant pain - Nausea - Allergy status to other drugs, medicaments and biological substances - special education professor (current) use of aspirin - Other retirement (current) drug therapy - Essential (primary) hypertension - Allergy status to narcotic agent - special education professor (current) use of antithrombotics/antiplatelets - Acquired absence of other organs INPATIENT VISIT TRACKING (12 MO.) No inpatient visits to display in this time frame [id number]
[2022-03-02] MEDS ORDERED: CEPHALEXIN500 M1 PO (17:59)
--- NOTE | 2022-03-03 06:33 | EKG ---
[facility] [address] [place] [address] Signed Atrial-sensed ventricular-paced rhythm Abnormal ECG When compared with ECG of 17-JAN-2022 19:26, Vent. rate has decreased BY 9 BPM Confirmed by KATRIN DELA CRUZ MD ([id number]) on 03/03/2022 6:33:04 AM Electronically Signed By: KATRIN DELA CRUZ MD 03/03/22 0633 PATIENT NAME: NBAKATIEFRANCI MICHAEL Electrocardiogram DATE OF : 49 PHYSICIAN: KATRIN DELA CRUZ MD REPORT #: [id number] REPORT IS CONFIDENTIAL AND NOT TO BE RELEASED WITHOUT AUTHORIZATION
== END 2022-03-02 19:16 | disposition home or self-care (01) ==
LOC: ED 15:12
DX: N39.0 Urinary tract infection, site not specified (principal); I10 Essential (primary) hypertension; Z20.822 Contact with and (suspected) exposure to COVID-19; Z88.5 Allergy status to narcotic agent; Z88.8 Allergy status to other drugs, medicaments and biological substances; Z88.0 Allergy status to penicillin; Z79.899 Other long term (current) drug therapy; Z79.82 Long term (current) use of aspirin
CPT/HCPCS: 36415; 71045; 80053; 81001; 84484; 85025; 87088; 87502; 93005; 93010; 96365; 99285-25; C9803; J0696; U0003

== ENCOUNTER 2022-03-04 10:58 | Emergency (ER) | payer MEDICARE, OTHER ==
[~2022-03-04] VITALS: Ht 177.8 cm; Wt 102.5 kg
[~2022-03-04 10:58] MED LIST changes: +CEPHALEXIN500 M1 PO
--- OUTSIDE RECORDS SUMMARY | 2022-03-04 11:01 | XMS ---
PreManage Notification: FRANCI VELÁZQUEZ Security Lead Application Architect Events No recent Security Events currently on file CRITERIA MET - [facility] - [facility] - 2 Visits in 30 Days - Group Notification CARE PROVIDERS SEN [place] Physician Auto Fleet Manager 07/05/2021-Current PHONE: [phone] [place] has no Care Guidelines for this patient. Care History Medical/Surgical 05/27/2019 [facility] - PATIENT HAS A RN PERITONEAL DIALYSIS DR BAZAN AT [facility]. Josie VISIT COUNT (12 MO.) 8 [facility] TOTAL 8 NOTE: Visits indicate total known visits. ED/UCC VISIT TRACKING (12 MO.) 03/04/2022 10:59 [facility] [place] TYPE: Emergency COMPLAINT: - ABD PAIN 03/02/2022 15:12 [facility] [place] TYPE: Emergency COMPLAINT: - CHEST PAIN 01/18/2022 09:03 [facility] [place] TYPE: Emergency COMPLAINT: - FALL, FOGGY, WEAK, L KNEE INJURY DIAGNOSES: - COVID-19 - Pain in left knee - Allergy status to other drugs, medicaments and biological substances - Contusion of left front wall of thorax, initial encounter - Allergy status to penicillin - Other long wall shear operator (current) drug therapy - Presence of cardiac pacemaker - care home (current) use of aspirin - Essential (primary) hypertension - Allergy status to narcotic agent - Fall on same level, unspecified, initial encounter - Unspecified place or not applicable - Contusion of left knee, initial encounter - computer terminal operator (current) use of anticoagulants 01/17/2022 18:58 [facility] [place] TYPE: Emergency COMPLAINT: - DIZZINESS DIAGNOSES: - Other care home (current) drug therapy - Allergy status to other drugs, medicaments and biological substances - computer terminal operator (current) use of aspirin - Presence of cardiac pacemaker - Hypertensive heart disease with heart failure - Allergy status to penicillin - computer terminal operator (current) use of antithrombotics/antiplatelets - Weakness - Heart failure, unspecified - Allergy status to narcotic agent 08/19/2021 16:31 [facility] [place] TYPE: Emergency COMPLAINT: - GROIN PAIN DIAGNOSES: - Essential (primary) hypertension - Right lower quadrant pain - Allergy status to other antibiotic agents - Allergy status to penicillin - computer terminal operator (current) use of aspirin - Allergy status to other drugs, medicaments and biological substances - Sleep apnea, unspecified - Other long wall shear operator (current) drug therapy - Allergy status to narcotic agent 08/10/2021 11:31 [facility] [place] TYPE: Emergency COMPLAINT: - DIZZINESS, LIGHT HEADED, NAUSEA, LOW B/P DIAGNOSES: - Allergy status to penicillin - Other long wall shear operator (current) drug therapy - Syncope and collapse - Dizziness and giddiness - care home (current) use of aspirin - Allergy status [...] drugs, medicaments and biological substances - Other care home (current) drug therapy - care home (current) use of antithrombotics/antiplatelets 07/04/2021 10:54 [facility] [place] TYPE: Emergency COMPLAINT: - VOMITING DIAGNOSES: - Allergy status to penicillin - Presence of cardiac pacemaker - Right lower quadrant pain - Nausea - Allergy status to other drugs, medicaments and biological substances - computer terminal operator (current) use of aspirin - Other long wall shear operator (current) drug therapy - Essential (primary) hypertension - Allergy status to narcotic agent - computer terminal operator (current) use of antithrombotics/antiplatelets - Acquired absence of other organs INPATIENT VISIT TRACKING (12 MO.) No inpatient visits to display in this time frame [id number]
== END 2022-03-04 16:34 | disposition home or self-care (01) ==
LOC: ED 10:58
DX: R10.31 Right lower quadrant pain (principal); M79.18 Myalgia, other site; I10 Essential (primary) hypertension; G47.30 Sleep apnea, unspecified; Z95.0 Presence of cardiac pacemaker; Z88.5 Allergy status to narcotic agent; Z88.0 Allergy status to penicillin; Z88.8 Allergy status to other drugs, medicaments and biological substances; Z79.899 Other long term (current) drug therapy; Z79.82 Long term (current) use of aspirin
CPT/HCPCS: 36415; 74174; 80053; 85025; J2060; J2270; J7030; Q9967

== ENCOUNTER 2022-03-16 04:51 | Emergency (ER) | payer MEDICARE, OTHER ==
[~2022-03-16] VITALS: Ht 177.8 cm; Wt 101.0 kg
--- OUTSIDE RECORDS SUMMARY | 2022-03-16 04:54 | XMS ---
PreManage Notification: FRANCI VELÁZQUEZ Security Soft Shoe Dancer Events No recent Security Events currently on file CRITERIA MET - [facility] - 2 Visits in 30 Days - Group Notification - PDMP CARE PROVIDERS SEN [place] Physician Tight Rope Walker 07/05/2021-Current PHONE: [phone] [place] has no Care Guidelines for this patient. Care History Medical/Surgical 05/27/2019 [facility] - PATIENT HAS A SLOT KEY PERSON DR BAZAN AT [facility]. Josie VISIT COUNT (12 MO.) 9 [facility] TOTAL 9 NOTE: Visits indicate total known visits. ED/UCC VISIT TRACKING (12 MO.) 03/16/2022 04:52 [facility] [place] TYPE: Emergency COMPLAINT: - VOMITING, DIZZINESS 03/04/2022 10:59 [facility] [place] TYPE: Emergency COMPLAINT: - ABD PAIN DIAGNOSES: - Allergy status to other drugs, medicaments and biological substances - Presence of cardiac pacemaker - Right lower quadrant pain - Essential (primary) hypertension - Sleep apnea, unspecified - Allergy status to narcotic agent - Other termite control representative (current) drug therapy - terminal gauger (current) use of aspirin - Myalgia, other site - Allergy status to penicillin 03/02/2022 15:12 [facility] [place] TYPE: Emergency COMPLAINT: - CHEST PAIN DIAGNOSES: - terminal gauger (current) use of aspirin - Contact with and (suspected) exposure to COVID-19 - Chest pain, unspecified - Other termite control representative (current) drug therapy - Allergy status to other drugs, medicaments and biological substances - Essential (primary) hypertension - Allergy status to penicillin - Urinary tract infection, site not specified - Allergy status to narcotic agent 01/18/2022 09:03 [facility] [place] TYPE: Emergency COMPLAINT: - FALL, FOGGY, WEAK, L KNEE INJURY DIAGNOSES: - COVID-19 - Pain in left knee - Allergy status to other drugs, medicaments and biological substances - Contusion of left front wall of thorax, initial encounter - Allergy status to penicillin - Other termite control representative (current) drug therapy - Presence of cardiac pacemaker - correction (current) use of aspirin - Essential (primary) hypertension - Allergy status to narcotic agent - Fall on same level, unspecified, initial encounter - Unspecified place or not applicable - Contusion of left knee, initial encounter - terminal gauger (current) use of anticoagulants 01/17/2022 18:58 [facility] [place] TYPE: Emergency COMPLAINT: - DIZZINESS DIAGNOSES: - Other termite control representative (current) drug therapy - Allergy status to other drugs, medicaments and biological substances - correction (current) use of aspirin - Presence of cardiac pacemaker - Hypertensive heart disease with heart failure - Allergy status to penicillin - terminal gauger (current) use of antithrombotics/antiplatelets - Weakness - Heart failure, unspecified - Allergy status to narcotic agent 08/19/2021 16:31 [facility] [place] TYPE: Emergency COMPLAINT: - GROIN PAIN DIAGNOSES: - Essential (primary) hypertension - Right lower quadrant pain - Allergy status to other antibiotic agents - Allergy status to penicillin - terminal gauger (current) use of aspirin - Allergy status to other drugs, medicaments and biological substances - Sleep apnea, unspecified - Other care home (current) drug therapy - Allergy status to narcotic agent 08/10/2021 11:31 [facility] [place] TYPE: Emergency COMPLAINT: - DIZZINESS, LIGHT HEADED, NAUSEA, LOW B/P DIAGNOSES: - Allergy status to penicillin - Other termite control representative (current) drug therapy - Syncope and collapse - Dizziness and giddiness - correction (current) use of aspirin - Allergy status to narcotic agent - Allergy status to other drugs, medicaments and biological substances - Allergy status to other antibiotic agents - terminal gauger (current) use of oral hypoglycemic drugs - [...] Other care home (current) drug therapy - terminal gauger (current) use of antithrombotics/antiplatelets 07/04/2021 10:54 [facility] [place] TYPE: Emergency COMPLAINT: - VOMITING DIAGNOSES: - Allergy status to penicillin - Presence of cardiac pacemaker - Right lower quadrant pain - Nausea - Allergy status to other drugs, medicaments and biological substances - terminal gauger (current) use of aspirin - Other termite control representative (current) drug therapy - Essential (primary) hypertension - Allergy status to narcotic agent - correction (current) use of antithrombotics/antiplatelets - Acquired absence of other organs INPATIENT VISIT TRACKING (12 MO.) No inpatient visits to display in this time frame [id number]
[2022-03-16] MEDS ORDERED: ONDANSETRON ODT8 MG PO (08:37)
--- NOTE | 2022-03-16 09:01 | EKG ---
[facility] [address] [place] [address] Signed Atrial-sensed ventricular-paced rhythm Abnormal ECG When compared with ECG of 02-MAR-2022 15:37, Vent. rate has increased BY 3 BPM Confirmed by KATRIN DELA CRUZ MD ([id number]) on 03/16/2022 9:01:28 AM Electronically Signed By: KATRIN DELA CRUZ MD 03/16/22 0901 PATIENT NAME: EBERFRANCI RODRIGUEZ Electrocardiogram DATE OF : 49 PHYSICIAN: KATRIN DELA CRUZ MD REPORT #: [id number] REPORT IS CONFIDENTIAL AND NOT TO BE RELEASED WITHOUT AUTHORIZATION
== END 2022-03-16 09:15 | disposition home or self-care (01) ==
LOC: ED 04:51
DX: T67.5XXA Heat exhaustion, unspecified, initial encounter (principal); R07.9 Chest pain, unspecified; R11.2 Nausea with vomiting, unspecified; X30.XXXA Exposure to excessive natural heat, initial encounter; I10 Essential (primary) hypertension; G47.30 Sleep apnea, unspecified; Z88.5 Allergy status to narcotic agent; Z88.8 Allergy status to other drugs, medicaments and biological substances; Z88.1 Allergy status to other antibiotic agents; Z88.0 Allergy status to penicillin; Z79.899 Other long term (current) drug therapy; Z79.82 Long term (current) use of aspirin
CPT/HCPCS: 36415; 71045; 80053; 81001; 82803; 83735; 83880; 84484; 85025; 93005; 93010; 96374; 99285-25; J2405

== ENCOUNTER 2022-03-17 14:58 | Emergency (ER) | payer MEDICARE, OTHER ==
[~2022-03-17] VITALS: Ht 177.8 cm; Wt 101.0 kg
[~2022-03-17 14:58] MED LIST changes: +ONDANSETRON ODT8 MG PO
--- OUTSIDE RECORDS SUMMARY | 2022-03-17 15:00 | XMS ---
PreManage Notification: FRANCI VELÁZQUEZ Security Black Ash Burner Operator Events No recent Security Events currently on file CRITERIA MET - 6 ED Visits in 6 Months - PDMP - Group Notification - [facility] - 2 Visits in 30 Days CARE PROVIDERS SEN [place]INDR[place] Physician Manpower Development Specialist 07/05/2021-Current PHONE: [phone] [place] has no Care Guidelines for this patient. Care History Medical/Surgical 05/27/2019 [facility] - PATIENT HAS A FOREST ECONOMIST DR BAZAN AT [facility]. Josie VISIT COUNT (12 MO.) 10 [facility] TOTAL 10 NOTE: Visits indicate total known visits. ED/UCC VISIT TRACKING (12 MO.) 03/17/2022 14:59 [facility] [place] TYPE: Emergency COMPLAINT: - BODY ACHES 03/16/2022 04:52 [facility] [place] TYPE: Emergency COMPLAINT: - VOMITING, DIZZINESS 03/04/2022 10:59 [facility] [place] TYPE: Emergency COMPLAINT: - ABD PAIN DIAGNOSES: - Allergy status to other drugs, medicaments and biological substances - Presence of cardiac pacemaker - Right lower quadrant pain - Essential (primary) hypertension - Sleep apnea, unspecified - Allergy status to narcotic agent - Other nursing home (current) drug therapy - extermination supervisor (current) use of aspirin - Myalgia, other site - Allergy status to penicillin 03/02/2022 15:12 [facility] [place] TYPE: Emergency COMPLAINT: - CHEST PAIN DIAGNOSES: - extermination supervisor (current) use of aspirin - Contact with and (suspected) exposure to COVID-19 - Chest pain, unspecified - Other nursing home (current) drug therapy - Allergy status [...] - Allergy status to penicillin - Other nursing home (current) drug therapy - Presence of cardiac pacemaker - extermination supervisor (current) use of aspirin - Essential (primary) hypertension - Allergy status to narcotic agent - Fall on same level, unspecified, initial encounter - Unspecified place or not applicable - Contusion of left knee, initial encounter - shelter (current) use of anticoagulants 01/17/2022 18:58 [facility] [place] TYPE: Emergency COMPLAINT: - DIZZINESS DIAGNOSES: - Other computer terminal operator (current) drug therapy - Allergy status to other drugs, medicaments and biological substances - shelter (current) use of aspirin - Presence of cardiac pacemaker - Hypertensive heart disease with heart failure - Allergy status to penicillin - extermination supervisor (current) use of antithrombotics/antiplatelets - Weakness - Heart failure, unspecified - Allergy status to narcotic agent 08/19/2021 16:31 [facility] [place] TYPE: Emergency COMPLAINT: - GROIN PAIN DIAGNOSES: - Essential (primary) hypertension - Right lower quadrant pain - Allergy status to other antibiotic agents - Allergy status to penicillin - extermination supervisor (current) use of aspirin - Allergy status to other drugs, medicaments and biological substances - Sleep apnea, unspecified - Other nursing home (current) drug therapy - Allergy status to narcotic agent 08/10/2021 11:31 [facility] [place] TYPE: Emergency COMPLAINT: - DIZZINESS, LIGHT HEADED, NAUSEA, LOW B/P DIAGNOSES: - Allergy status to penicillin - Other nursing home (current) drug therapy - Syncope and collapse - Dizziness and giddiness - extermination supervisor (current) use of aspirin - Allergy status to narcotic agent - Allergy status to other drugs, medicaments and biological substances - Allergy status to other antibiotic agents - extermination supervisor (current) use of oral hypoglycemic drugs [...] drugs, medicaments and biological substances - Other computer terminal operator (current) drug therapy - extermination supervisor (current) use of antithrombotics/antiplatelets 07/04/2021 10:54 [facility] [place] TYPE: Emergency COMPLAINT: - VOMITING DIAGNOSES: - Allergy status to penicillin - Presence of cardiac pacemaker - Right lower quadrant pain - Nausea - Allergy status to other drugs, medicaments and biological substances - extermination supervisor (current) use of aspirin - Other nursing home (current) drug therapy - Essential (primary) hypertension - Allergy status to narcotic agent - extermination supervisor (current) use of antithrombotics/antiplatelets - Acquired absence of other organs INPATIENT VISIT TRACKING (12 MO.) No inpatient visits to display in this time frame [email or web address]
== END 2022-03-17 17:57 | disposition home or self-care (01) ==
LOC: ED 14:58
DX: R53.1 Weakness (principal); I10 Essential (primary) hypertension; Z20.822 Contact with and (suspected) exposure to COVID-19; Z95.0 Presence of cardiac pacemaker; Z88.5 Allergy status to narcotic agent; Z88.0 Allergy status to penicillin; Z88.8 Allergy status to other drugs, medicaments and biological substances; Z79.899 Other long term (current) drug therapy; Z79.02 Long term (current) use of antithrombotics/antiplatelets
CPT/HCPCS: 36415; 80053; 81001; 83880; 84484; 85025; 87502; C9803; J7040; U0003

== ENCOUNTER 2022-04-03 10:13 | Emergency (ER) | payer MEDICARE, OTHER ==
[~2022-04-03] VITALS: Ht 177.8 cm; Wt 101.0 kg
--- OUTSIDE RECORDS SUMMARY | 2022-04-03 10:16 | XMS ---
PreManage Notification: FRANCI VELÁZQUEZ Security Lasting Room Supervisor Events No recent Security Events currently on file CRITERIA MET - Group Notification - [facility] - 2 Visits in 30 Days - 6 ED Visits in 6 Months - PDMP CARE PROVIDERS [place]EN [place] Physician Email Manager 07/05/2021-Current PHONE: [phone] [place] has no Care Guidelines for this patient. Care History Medical/Surgical 05/27/2019 [facility] - PATIENT HAS A BULB GROWER DR BAZAN AT [facility]. Josie VISIT COUNT ([address] MO[address] 11 [facility] TOTAL 11 NOTE: Visits indicate total known visits. ED/UCC VISIT TRACKING (12 MO.) 04/03/2022 10:13 [facility] [place] TYPE: Emergency COMPLAINT: - DIZZINESS 03/17/2022 14:59 [facility] [place] TYPE: Emergency COMPLAINT: - BODY ACHES DIAGNOSES: - Contact with and (suspected) exposure to COVID-19 - Allergy status to penicillin - Weakness - Allergy status to other drugs, medicaments and biological substances - Other assisted (current) drug therapy - Essential (primary) hypertension - Presence of cardiac pacemaker - MCC (current) use of antithrombotics/antiplatelets - Other fatigue - Allergy status to narcotic agent 03/16/2022 04:52 [facility] [place] TYPE: Emergency COMPLAINT: - VOMITING, DIZZINESS DIAGNOSES: - 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 - Allergy status to other antibiotic agents - Heat exhaustion, unspecified, initial encounter - terminal gauger (current) use of aspirin - Allergy status to other drugs, medicaments and biological substances - Chest pain, unspecified - Allergy status to penicillin - Essential (primary) hypertension - Sleep apnea, unspecified - Allergy status to narcotic agent - Nausea with vomiting, unspecified - Exposure to excessive natural heat, initial encounter 03/04/2022 10:59 [facility] [place] TYPE: Emergency COMPLAINT: - ABD PAIN DIAGNOSES: - Essential (primary) hypertension - Presence of cardiac pacemaker - Myalgia, other site - 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 - Sleep apnea, unspecified - Right lower quadrant pain - Allergy status to penicillin - Allergy status to other drugs, medicaments and biological substances - MCC (current) use of aspirin - Allergy status to narcotic agent 03/02/2022 15:12 [facility] [place] TYPE: Emergency COMPLAINT: - CHEST PAIN DIAGNOSES: - Other assisted (current) drug therapy - Contact with and (suspected) exposure to COVID-19 - Allergy status to narcotic agent - Allergy status to penicillin - Allergy status to other drugs, medicaments and biological substances - Chest pain, unspecified - terminal gauger (current) use of aspirin - Urinary tract infection, site not specified - Essential (primary) hypertension 01/18/2022 09:03 [facility] [place] TYPE: Emergency COMPLAINT: - FALL, FOGGY, WEAK, L KNEE INJURY DIAGNOSES: - Contusion of left front wall of thorax, initial encounter - Fall on same level, unspecified, initial encounter - Pain in left knee - Essential (primary) hypertension - Presence of cardiac pacemaker - terminal gauger (current) use of anticoagulants - Allergy status to penicillin - Unspecified place or not applicable - Allergy status to other drugs, medicaments and biological substances - Allergy status to narcotic agent - COVID-19 - MCC (current) use of aspirin - 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 - Contusion of left knee, initial encounter 01/17/2022 18:58 [facility] [place] TYPE: Emergency COMPLAINT: - DIZZINESS DIAGNOSES: - Presence of cardiac pacemaker - Allergy status to other drugs, medicaments and biological substances - Heart failure, unspecified - terminal gauger (current) use of antithrombotics/antiplatelets - Hypertensive heart disease with heart failure - terminal gauger (current) use of aspirin - Allergy status to narcotic agent - Other assisted (current) drug therapy - Weakness - Allergy status to penicillin 08/19/2021 16:31 [facility] [place] TYPE: Emergency COMPLAINT: - GROIN PAIN DIAGNOSES: - Allergy status to penicillin - Right lower quadrant pain - Allergy status to narcotic agent - Sleep apnea, unspecified - MCC (current) use of aspirin - Allergy status to other antibiotic agents - Essential (primary) hypertension - Other assisted (current) drug therapy - Allergy status to other drugs, medicaments and biological substances 08/10/2021 11:31 [facility] [place] TYPE: Emergency COMPLAINT: - DIZZINESS, LIGHT HEADED, NAUSEA, LOW B/P DIAGNOSES: - Dizziness and giddiness - Contact with and (suspected) exposure to COVID-19 - Other assisted (current) drug therapy - terminal gauger (current) use of oral hypoglycemic drugs - Allergy status to other drugs, medicaments and biological substances - MCC (current) use of aspirin - Syncope and collapse - Essential (primary) hypertension - Allergy status to penicillin - Allergy status to other antibiotic agents - Allergy status to narcotic agent 07/07/2021 14:16 [facility] [place] TYPE: Emergency COMPLAINT: - ABDOMINAL PAIN, NAUSEA DIAGNOSES: - Acquired absence of other organs - Allergy status to penicillin - 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
[2022-04-03] MEDS ORDERED: TOPROL XL25 MG PO (11:13)
[2022-04-03] MEDS ORDERED: ZESTRIL2.5 MG PO (11:13)
--- NOTE | 2022-04-04 07:29 | EKG ---
[facility] [address] [place] [address] Signed AV dual-paced rhythm Abnormal ECG When compared with ECG of 16-MAR-2022 05:00, Vent. rate has decreased BY 3 BPM Confirmed by KATRIN DELA CRUZ MD ([id number] on 04/04/2022 7:28:57 AM Electronically Signed By: KATRIN DELA CRUZ MD 04/04/22 0729 PATIENT NAME: GARTHChadFRANCI Electrocardiogram DATE OF : 49 PHYSICIAN: KATRIN DELA CRUZ MD REPORT #: [id number] REPORT IS CONFIDENTIAL AND NOT TO BE RELEASED WITHOUT AUTHORIZATION
== END 2022-04-03 12:56 | disposition home or self-care (01) ==
LOC: ED 10:13
DX: I95.2 Hypotension due to drugs (principal); T44.7X5A Adverse effect of beta-adrenoreceptor antagonists, initial encounter; E86.0 Dehydration; I10 Essential (primary) hypertension; G47.30 Sleep apnea, unspecified; Z79.899 Other long term (current) drug therapy; Z88.5 Allergy status to narcotic agent; Z88.8 Allergy status to other drugs, medicaments and biological substances; Z88.0 Allergy status to penicillin; Z79.82 Long term (current) use of aspirin
CPT/HCPCS: 36415; 80053; 81001; 83735; 84484; 85025; 93005; 93010; 96360; 99285-25; J7040

== ENCOUNTER 2022-05-07 18:06 | Emergency (ER) | payer MEDICARE, OTHER ==
[~2022-05-07] VITALS: Ht 177.8 cm; Wt 98.1 kg
--- NOTE | ~2022-05-07 | EKG ---
[facility] [address] [facility] [place], [place] [address] Draft EK completed, results pending confirmation PATIENT NAME: FRANCI VELÁZQUEZ Electrocardiogram DATE OF : 49 PHYSICIAN: PRELIMINARY REPORT #: [id number] REPORT IS CONFIDENTIAL AND NOT TO BE RELEASED WITHOUT AUTHORIZATION
[~2022-05-07 18:06] MED LIST changes: +TOPROL XL25 MG PO
--- OUTSIDE RECORDS SUMMARY | 2022-05-07 18:08 | XMS ---
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. Josie VISIT COUNT (12 MO.) 12 [facility] TOTAL 12 NOTE: Visits indicate total known visits. ED/UCC VISIT TRACKING (12 MO.) 05/07/2022 18:06 [facility] [place] TYPE: Emergency COMPLAINT: - BLOODY STOOL 04/03/2022 10:13 [facility] [place] TYPE: Emergency COMPLAINT: - DIZZINESS DIAGNOSES: - Hypotension due to drugs - Dizziness and giddiness - Adverse effect of beta-adrenoreceptor antagonists, initial encounter - Allergy status to narcotic agent - Dehydration - Essential (primary) hypertension - Other 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 - Allergy status to other drugs, medicaments and biological substances - Sleep apnea, unspecified - snf (current) use of aspirin - Allergy status to penicillin 03/17/2022 14:59 [facility] [place] TYPE: Emergency COMPLAINT: - BODY ACHES DIAGNOSES: - Allergy status to penicillin - Weakness - Allergy status to other drugs, medicaments and biological substances - Other senior living (current) drug therapy - Essential (primary) hypertension - Presence of cardiac pacemaker - snf (current) use of antithrombotics/antiplatelets - Other fatigue - Allergy status to narcotic agent - Contact with and (suspected) exposure to COVID-19 03/16/2022 04:52 [facility] [place] TYPE: Emergency COMPLAINT: - VOMITING, DIZZINESS DIAGNOSES: - Allergy status to other antibiotic agents - Heat exhaustion, unspecified, initial encounter - credit risk associate (current) use of aspirin - Allergy status to other drugs, medicaments and biological substances - Chest pain, unspecified - Allergy status to penicillin - Essential (primary) hypertension - Sleep apnea, unspecified - Allergy status to narcotic agent - Nausea with vomiting, unspecified - Exposure to excessive natural heat, initial encounter - Other senior living (current) drug therapy 03/04/2022 10:59 [facility] [place] TYPE: Emergency COMPLAINT: - ABD PAIN DIAGNOSES: - Presence of cardiac pacemaker - Myalgia, other site - Other 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 - Sleep apnea, unspecified - Right lower quadrant pain - Allergy status to penicillin - Allergy status to other drugs, medicaments and biological substances - snf (current) use of aspirin - Allergy status to narcotic agent - Essential (primary) hypertension 03/02/2022 15:12 [facility] [place] TYPE: Emergency COMPLAINT: - CHEST PAIN DIAGNOSES: - Contact with and (suspected) exposure to COVID-19 - Allergy status to narcotic agent - Allergy status to penicillin - Allergy status to other drugs, medicaments and biological substances - Chest pain, unspecified - credit risk associate (current) use of aspirin - Urinary tract infection, site not specified - Essential (primary) hypertension - Other senior living (current) drug therapy 01/18/2022 09:03 [facility] [place] TYPE: Emergency COMPLAINT: - FALL, FOGGY, WEAK, L KNEE INJURY DIAGNOSES: - Fall on same level, unspecified, initial encounter - Pain in left knee - Essential (primary) hypertension - Presence of cardiac pacemaker - snf (current) use of anticoagulants - Allergy status to penicillin - Unspecified place or not applicable - Allergy status to other drugs, medicaments and biological substances - Allergy status to narcotic agent - COVID-19 - credit risk associate (current) use of aspirin - Other senior living (current) drug therapy - Contusion of left knee, initial encounter - Contusion of left front wall of thorax, initial encounter 01/17/2022 18:58 [facility] [place] TYPE: Emergency COMPLAINT: - DIZZINESS DIAGNOSES: - Allergy status to other drugs, medicaments and biological substances - Heart failure, unspecified - snf (current) use of antithrombotics/antiplatelets - Hypertensive heart disease with heart failure - credit risk associate (current) use of aspirin - Allergy status to narcotic agent - Other senior living (current) drug therapy - Weakness - Allergy status to penicillin - Presence of cardiac pacemaker 08/19/2021 16:31 [facility] [place] TYPE: Emergency COMPLAINT: - GROIN PAIN DIAGNOSES: - Right lower quadrant pain - Allergy status to narcotic agent - Sleep apnea, unspecified - snf (current) use of aspirin - Allergy status to other antibiotic agents - Essential (primary) hypertension - Other senior living (current) drug therapy - Allergy status to other drugs, medicaments and biological substances - Allergy status to penicillin 08/10/2021 11:31 [facility] [place] TYPE: Emergency COMPLAINT: - DIZZINESS, LIGHT HEADED, NAUSEA, LOW B/P DIAGNOSES: - Contact with and (suspected) exposure to COVID-19 - Other senior living (current) drug therapy - snf (current) use of oral hypoglycemic drugs - Allergy status to other drugs, medicaments and biological substances - credit risk associate (current) use of aspirin - Syncope and collapse - Essential (primary) hypertension - Allergy status to penicillin - Allergy status to other antibiotic agents - Allergy status to narcotic agent - Dizziness and giddiness 07/07/2021 14:16 [facility] [place] TYPE: Emergency COMPLAINT: - ABDOMINAL PAIN, NAUSEA DIAGNOSES: - Allergy status to penicillin - Other 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 - Presence of cardiac pacemaker - Right lower quadrant pain - Constipation, unspecified - snf (current) use of antithrombotics/antiplatelets - Allergy status to narcotic agent - Allergy status to other drugs, medicaments and biological substances - Essential (primary) hypertension - Acquired absence of other organs 07/04/2021 10:54 [facility] [place] TYPE: Emergency COMPLAINT: - VOMITING DIAGNOSES: - Acquired absence of other organs - Presence of cardiac pacemaker - Allergy status to narcotic agent - Other senior living (current) drug therapy - Allergy status to other drugs, medicaments and biological substances - Right lower quadrant pain - credit risk associate (current) use of antithrombotics/antiplatelets - Allergy status to penicillin - Essential (primary) hypertension - snf (current) use of aspirin - Nausea INPATIENT VISIT TRACKING (12 MO.) No inpatient visits to display in this time frame [email or web address]
[2022-05-07] MEDS ORDERED: HYDROCODON-ACE1 EA10 PO (22:39)
== END 2022-05-07 23:24 | disposition home or self-care (01) ==
LOC: ED 18:06
DX: R10.31 Right lower quadrant pain (principal); R55 Syncope and collapse; R19.5 Other fecal abnormalities; Z20.822 Contact with and (suspected) exposure to COVID-19; G47.30 Sleep apnea, unspecified; Z88.5 Allergy status to narcotic agent; Z88.8 Allergy status to other drugs, medicaments and biological substances; Z88.1 Allergy status to other antibiotic agents; Z79.899 Other long term (current) drug therapy; Z79.82 Long term (current) use of aspirin
CPT/HCPCS: 36415; 74177; 80053; 85025; 86850; 86900; 86901; 87502; 93005; 93010; 99152; 99153; 99284-25; A9270; C9803; J1170; J2250; Q9967; U0003

== ENCOUNTER 2022-06-07 00:50 | Emergency (ER) | payer MEDICARE, OTHER ==
[~2022-06-07] VITALS: Ht 177.8 cm; Wt 98.1 kg
[~2022-06-07 00:50] MED LIST changes: +HYDROCODON-ACE1 EA10 PO
--- OUTSIDE RECORDS SUMMARY | 2022-06-07 00:53 | XMS ---
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 Josie VISIT COUNT (12 MO.) 13 [facility] TOTAL 13 NOTE: Visits indicate total known visits. ED/UCC VISIT TRACKING (12 MO.) 06/07/2022 00:50 [facility] [place] TYPE: Emergency COMPLAINT: - ABD PAIN 05/07/2022 18:06 [facility] [place] TYPE: Emergency COMPLAINT: - BLOODY STOOL DIAGNOSES: - Other fecal abnormalities - Allergy status to narcotic agent - Right lower quadrant pain - Contact with and (suspected) exposure to COVID-19 - Allergy status to other antibiotic agents - Sleep apnea, unspecified - prison (current) use of aspirin - Syncope and collapse - Other senior living (current) drug therapy - Allergy status to other drugs, medicaments and biological substances 04/03/2022 10:13 [facility] [place] TYPE: Emergency COMPLAINT: - DIZZINESS DIAGNOSES: - Dizziness and giddiness - Adverse effect of beta-adrenoreceptor antagonists, initial encounter - Allergy status to narcotic agent - Dehydration - Essential (primary) hypertension - Other watermelon inspector (current) drug therapy - Allergy status to other drugs, medicaments and biological substances - Sleep apnea, unspecified - prison (current) use of aspirin - Allergy status to penicillin - Hypotension due to drugs 03/17/2022 14:59 [facility] [place] TYPE: Emergency COMPLAINT: - BODY ACHES DIAGNOSES: - Allergy status to penicillin - Weakness - Allergy status to other drugs, medicaments and biological substances - Other senior living (current) drug therapy - Essential (primary) hypertension - Presence of cardiac pacemaker - exterminator (current) use of antithrombotics/antiplatelets - Other fatigue - Allergy status to narcotic agent - Contact with and (suspected) exposure to COVID-19 03/16/2022 04:52 [facility] [place] TYPE: Emergency COMPLAINT: - VOMITING, DIZZINESS DIAGNOSES: - Heat exhaustion, unspecified, initial encounter - prison (current) use of aspirin - Allergy status to other drugs, medicaments and biological substances - Chest pain, unspecified - Allergy status to penicillin - Essential (primary) hypertension - Sleep apnea, unspecified - Allergy status to narcotic agent - Nausea with vomiting, unspecified - Exposure to excessive natural heat, initial encounter - Other watermelon inspector (current) drug therapy - Allergy status to other antibiotic agents 03/04/2022 10:59 [facility] [place] TYPE: Emergency COMPLAINT: - ABD PAIN DIAGNOSES: - Presence of cardiac pacemaker - Myalgia, other site - Other senior living (current) drug therapy - Sleep apnea, unspecified - Right lower quadrant pain - Allergy status to penicillin - Allergy status to other drugs, medicaments and biological substances - exterminator (current) use of aspirin - Allergy status to narcotic agent - Essential (primary) hypertension 03/02/2022 15:12 [facility] [place] TYPE: Emergency COMPLAINT: - CHEST PAIN DIAGNOSES: - Contact with and (suspected) exposure to COVID-19 - Allergy status to narcotic agent - Allergy status to penicillin - Allergy status to other drugs, medicaments and biological substances - Chest pain, unspecified - prison (current) use of aspirin - Urinary tract infection, site not specified - Essential (primary) hypertension - Other watermelon inspector (current) drug therapy 01/18/2022 09:03 [facility] [place] TYPE: Emergency COMPLAINT: - FALL, FOGGY, WEAK, L KNEE INJURY DIAGNOSES: - Pain in left knee - Essential (primary) hypertension - Presence of cardiac pacemaker - exterminator (current) use of anticoagulants - Allergy status to penicillin - Unspecified place or not applicable - Allergy status to other drugs, medicaments and biological substances - Allergy status to narcotic agent - COVID-19 - exterminator (current) use of aspirin - Other senior living (current) drug therapy - Contusion of left knee, initial encounter - Contusion of left front wall of thorax, initial encounter - Fall on same level, unspecified, initial encounter 01/17/2022 18:58 [facility] [place] TYPE: Emergency COMPLAINT: - DIZZINESS DIAGNOSES: - Allergy status to other drugs, medicaments and biological substances - Heart failure, unspecified - prison (current) use of antithrombotics/antiplatelets - Hypertensive heart disease with heart failure - exterminator (current) use of aspirin - Allergy status to narcotic agent - Other senior living (current) drug therapy - Weakness - Allergy status to penicillin - Presence of cardiac pacemaker 08/19/2021 16:31 [facility] [place] TYPE: Emergency COMPLAINT: - GROIN PAIN DIAGNOSES: - Right lower quadrant pain - Allergy status to narcotic agent - Sleep apnea, unspecified - prison (current) use of aspirin - Allergy status to other antibiotic agents - Essential (primary) hypertension - Other watermelon inspector (current) drug therapy - Allergy status to other drugs, medicaments and biological substances - Allergy status to penicillin 08/10/2021 11:31 [facility] [place] TYPE: Emergency COMPLAINT: - DIZZINESS, LIGHT HEADED, NAUSEA, LOW B/P DIAGNOSES: - Other watermelon inspector (current) drug therapy - prison (current) use of oral hypoglycemic drugs - Allergy status to other drugs, medicaments and biological substances - exterminator (current) use of aspirin - Syncope and collapse - Essential (primary) hypertension - Allergy status to penicillin - Allergy status to other antibiotic agents - Allergy status to narcotic agent - Dizziness and giddiness - Contact with and (suspected) exposure to COVID-19 07/07/2021 14:16 [facility] [place] TYPE: Emergency COMPLAINT: - ABDOMINAL PAIN, NAUSEA DIAGNOSES: - Allergy status to penicillin - Other watermelon inspector (current) drug therapy - Presence of cardiac pacemaker - Right lower quadrant pain - Constipation, unspecified - exterminator (current) use of antithrombotics/antiplatelets - Allergy status to narcotic agent - Allergy status to other drugs, medicaments and biological substances - Essential (primary) hypertension - Acquired absence of other organs 07/04/2021 10:54 [facility] [place] TYPE: Emergency COMPLAINT: - VOMITING DIAGNOSES: - Presence of cardiac pacemaker - Allergy status to narcotic agent - Other watermelon inspector (current) drug therapy - Allergy status to other drugs, medicaments and biological substances - Right lower quadrant pain - exterminator (current) use of antithrombotics/antiplatelets - Allergy status to penicillin - Essential (primary) hypertension - exterminator (current) use of aspirin - Nausea - Acquired absence of other organs INPATIENT VISIT TRACKING (12 MO.) No inpatient visits to display in this time frame [email or web address]
[2022-06-07] MEDS ORDERED: CONSTULOSE10 GM/15 M PO (01:52)
--- NOTE | 2022-06-08 12:46 | EKG ---
[facility] [address] [facility] [place] [address] Signed Ventricular-paced rhythm Abnormal ECG When compared with ECG of 07-MAY-2022 18:27, Vent. rate has increased BY 4 BPM Confirmed by HAYDEN COTTON MD ([id number]) on 06/08/2022 12:46:41 PM Electronically Signed By: HAYDEN COTTON MD 06/08/22 1246 PATIENT NAME: FRANCI VELÁZQUEZ Electrocardiogram DATE OF : 49 PHYSICIAN: HAYDEN COTTON MD REPORT #: [id number] REPORT IS CONFIDENTIAL AND NOT TO BE RELEASED WITHOUT AUTHORIZATION
== END 2022-06-07 02:35 | disposition home or self-care (01) ==
LOC: ED 00:50
DX: K59.00 Constipation, unspecified (principal); I10 Essential (primary) hypertension; R73.03 Prediabetes; G47.30 Sleep apnea, unspecified; Z88.0 Allergy status to penicillin; Z88.8 Allergy status to other drugs, medicaments and biological substances; Z88.5 Allergy status to narcotic agent; Z79.899 Other long term (current) drug therapy; Z20.822 Contact with and (suspected) exposure to COVID-19
CPT/HCPCS: 36415; 74018; 80053; 81001; 83690; 85025; 87502; 93005; 93010; U0003

== ENCOUNTER 2022-12-30 20:30 | Emergency (ER) | payer MEDICARE, OTHER ==
[~2022-12-30] VITALS: Ht 177.8 cm; Wt 99.0 kg
[~2022-12-30 20:30] MED LIST changes: +CONSTULOSE10 GM/15 M PO
--- OUTSIDE RECORDS SUMMARY | 2022-12-30 20:34 | XMS ---
PreManage Notification: FRANCI VELÁZQUEZ Security Deputy Jailer Events No recent Security Events currently on file CRITERIA MET - Group Notification - [facility] - 2 Visits in 30 Days CARE PROVIDERS SEN [place] Physician Assembler [place] 07/05/2021-Current PHONE: Unknown [place] has no Care Guidelines for this patient. 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 Josie VISIT COUNT ([address] MO[address] [facility]. TOTAL 12 NOTE: Visits indicate total known visits. ED/UCC VISIT TRACKING (12 MO.) 12/30/2022 20:31 [facility] [place] TYPE: Emergency COMPLAINT: - HIP AND GROIN PAIN 12/29/2022 14:34 [facility] [place] TYPE: Emergency COMPLAINT: - GROIN PAIN 08/18/2022 17:25 [facility] [place] TYPE: Emergency COMPLAINT: - COUGH, LIGHT HEADED, NAUSEA, HEADACHE DIAGNOSES: - Acute bronchitis, unspecified - Allergy status to narcotic agent - Allergy status to other drugs, medicaments and biological substances - Bronchitis, not specified as acute or chronic - Contact with and (suspected) exposure to COVID-19 - Dizziness and giddiness - Essential (primary) hypertension - bed bug exterminator (current) use of antithrombotics/antiplatelets - bed bug exterminator (current) use of aspirin - Orthostatic hypotension - Other senior living (current) drug therapy - Sleep apnea, unspecified 06/07/2022 00:50 [facility] [place] TYPE: Emergency COMPLAINT: - ABD PAIN DIAGNOSES: - Allergy status to narcotic agent - Allergy status to other drugs, medicaments and biological substances - Allergy status to penicillin - Constipation, unspecified - Contact with and (suspected) exposure to COVID-19 - Essential (primary) hypertension - Other exterminator helper termite (current) drug therapy - Prediabetes - Right lower quadrant pain - Sleep apnea, unspecified 05/07/2022 18:06 [facility] [place] TYPE: Emergency COMPLAINT: - BLOODY STOOL DIAGNOSES: - Allergy status to narcotic agent - Allergy status to other antibiotic agents - Allergy status to other drugs, medicaments and biological substances - Contact with and (suspected) exposure to COVID-19 - FDC (current) use of aspirin - Other fecal abnormalities - Other senior living (current) drug therapy - Right lower quadrant pain - Sleep apnea, unspecified - Syncope and collapse 04/03/2022 10:13 [facility] [place] TYPE: Emergency COMPLAINT: - DIZZINESS DIAGNOSES: - Adverse effect of beta-adrenoreceptor antagonists, initial encounter - Allergy status to narcotic agent - Allergy status to other drugs, medicaments and biological substances - Allergy status to penicillin - Dehydration - Dizziness and giddiness - Essential (primary) hypertension - Hypotension due to drugs - bed bug exterminator (current) use of aspirin - Other exterminator helper termite (current) drug therapy - Sleep apnea, unspecified 03/17/2022 14:59 [facility] TYPE: Emergency COMPLAINT: - BODY ACHES DIAGNOSES: - Allergy status to narcotic agent - Allergy status to other drugs, medicaments and biological substances - Allergy status to penicillin - Contact with and (suspected) exposure to COVID-19 - Essential (primary) hypertension - FDC (current) use of antithrombotics/antiplatelets - Other fatigue - Other exterminator helper termite (current) drug therapy - Presence of cardiac pacemaker - Weakness 03/16/2022 04:52 [facility] TYPE: Emergency COMPLAINT: - VOMITING, DIZZINESS DIAGNOSES: - Allergy status to narcotic agent - Allergy status to other antibiotic agents - Allergy status to other drugs, medicaments and biological substances - Allergy status to penicillin - Chest pain, unspecified - Essential (primary) hypertension - Exposure to excessive natural heat, initial encounter - Heat exhaustion, unspecified, initial encounter - FDC (current) use of aspirin - Nausea with vomiting, unspecified - Other senior living (current) drug therapy - Sleep apnea, unspecified 03/04/2022 10:59 [facility] TYPE: Emergency COMPLAINT: - ABD PAIN DIAGNOSES: - Allergy status to narcotic agent - Allergy status to other drugs, medicaments and biological substances - Allergy status to penicillin - Essential (primary) hypertension - bed bug exterminator (current) use of aspirin - Myalgia, other site - Other senior living (current) drug therapy - Presence of cardiac pacemaker - Right lower quadrant pain - Sleep apnea, unspecified 03/02/2022 15:12 [facility] TYPE: Emergency COMPLAINT: - CHEST PAIN DIAGNOSES: - Allergy status to narcotic agent - Allergy status to other drugs, medicaments and biological substances - Allergy status to penicillin - Chest pain, unspecified - Contact with and (suspected) exposure to COVID-19 - Essential (primary) hypertension - FDC (current) use of aspirin - Other exterminator helper termite (current) drug therapy - Urinary tract infection, site not specified 01/18/2022 09:03 [facility] TYPE: Emergency COMPLAINT: - FALL, FOGGY, WEAK, L KNEE INJURY DIAGNOSES: - Allergy status to narcotic agent - Allergy status to other drugs, medicaments and biological substances - Allergy status to penicillin - Contusion of left front wall of thorax, initial encounter - Contusion of left knee, initial encounter - COVID-19 - Essential (primary) hypertension - Fall on same level, unspecified, initial encounter - FDC (current) use of anticoagulants - FDC (current) use of aspirin - Other exterminator helper termite (current) drug therapy - Pain in left knee - Presence of cardiac pacemaker - Unspecified place or not applicable 01/17/2022 18:[address] [facility] [place] TYPE: Emergency COMPLAINT: - DIZZINESS DIAGNOSES: - Allergy status to narcotic agent - Allergy status to other drugs, medicaments and biological substances - Allergy status to penicillin - Heart failure, unspecified - Hypertensive heart disease with heart failure - FDC (current) use of antithrombotics/antiplatelets - FDC (current) use of aspirin - Other exterminator helper termite (current) drug therapy - Presence of cardiac pacemaker - Weakness INPATIENT VISIT TRACKING (12 MO.) No inpatient visits to display in this time frame [email or web address]
[2022-12-30] MEDS ORDERED: PREDNISONE20 MG PO (22:27)
[2022-12-30] MEDS ORDERED: CYCLOBENZAPRINE10 MG PO (22:27)
[2022-12-30] MEDS ORDERED: LIDODERM1 EACH TOP (22:28)
[2022-12-30 22:40] VITALS: BP 112/68
== END 2022-12-30 22:40 | disposition home or self-care (01) ==
LOC: ED 20:30
DX: M54.41 Lumbago with sciatica, right side (principal); I10 Essential (primary) hypertension; Z95.0 Presence of cardiac pacemaker; Z88.5 Allergy status to narcotic agent; Z88.8 Allergy status to other drugs, medicaments and biological substances; Z88.0 Allergy status to penicillin; Z79.890 Hormone replacement therapy; Z79.82 Long term (current) use of aspirin; Z79.899 Other long term (current) drug therapy
CPT/HCPCS: J7512

== ENCOUNTER 2023-02-22 16:26 | Emergency (ER) | payer MEDICARE, OTHER ==
[~2023-02-22] VITALS: Ht 177.8 cm; Wt 98.9 kg
--- OUTSIDE RECORDS SUMMARY | ~2023-02-22 | XMS | Continuity of Care Document ---
Demographics + + + | Address | [address] | | | [place] [address] | + + + | Preferred Language | Unknown | + + + | Marital Status | | + + + | Sikhism Affiliation | Unknown | + + + | Race | White | + + + | Ethnic Group | Not or | + + + Author + + + | Author | [facility] | + + + | Organization | [facility] | + + + | Address | [address] | | | [place] [address] | + + + | Phone | | + + + Care Team Providers + + + + | Care Baffle Mounter Name | Role | Phone | + + + + Unavailable | Unavailable | + + + + Unavailable | Unavailable | + + + + Allergies and Intolerances + + + + + | date | description | facility | type | + + + + + | (no date) | Valsartan | [facility] | | + + + + + | (no date) | Codeine | [facility] ([facility] | | + + + + + | (no date) | codeine | [facility] | | + + + + + | (no date) | Rash | [facility] ([facility] | | + + + + + | (no date) | Penicillin g | [facility] ([facility] | | + + + + + | (no date) | Digoxin | [facility] ([facility] | | + + + + + | (no date) | digoxin | [facility] ([facility] | | + + + + + | (no date) | Meperidine | [facility] ([facility] | | + + + + + | (no date) | Nitroglycerin | [facility] ([facility] | | + + + + + | (no date) | Digoxin | [facility] ([facility] | | + + + + + | (no date) | Codeine | [facility] ([facility] | | + + + + + | (no date) | Oxycodone | [facility] ([facility] | | + + + + + | (no date) | Nitroglycerin | [facility] | | + + + + + | (no date) | nitroglycerin | [facility] ([facility] | | + + + + + | (no date) | Meperidine | [facility] ([facility] | | + + + + + | (no date) | meperidine | [facility] ([facility] | | + + + + + | (no date) | Valsartan | [facility] ([facility] | | + + + + + | (no date) | valsartan | [facility] ([facility] | | + + + + + | (no date) | Digoxin | [facility] ([facility] | | + + + + + | (no date) | Oxycodone | [facility] ([facility] | | + + + + + | (no date) | oxycodone | [facility] ([facility] | | + + + + + | (no date) | Penicillin g | [facility] ([facility] | | + + + + + | (no date) | penicillin G | [facility] ([facility] | | + + + + + | (no date) | Valsartan | [facility] ([facility] | | + + + + + | (no date) | Meperidine | [facility] ([facility] | | + + + + + | (no date) | Oxycodone | [facility] ([facility] | | + + + + + | (no date) | Nitroglycerin | [facility] ([facility] | | + + + + + | (no date) | Penicillin g | [facility] ([facility] | | + + + + + | (no date) | Codeine | [facility] (unknown) | | | | [facility] | | + + + + + Encounters No information. Functional Status No information. Immunizations No information. Medications + + + + | date | description | facility | + + + + | 2022-12-30 00:00 [facility] | + + + + | 2022-03-04 00:00 | LISINOPRIL | [facility] | + + + + | 2022-03-05 00:00 | LISINOPRIL | [facility] | + + + + | 2022-03-16 00:00 | LISINOPRIL | [facility] | + + + + | 2022-03-17 00:00 | LISINOPRIL | [facility] | + + + + | 2022-04-10 00:00 | LISINOPRIL | [facility] | + + + + | 2022-05-07 00:00 | LISINOPRIL | [facility] | + + + + | 2022-06-07 00:00 | LISINOPRIL | [facility] | + + + + | 2022-08-19 00:00 | LISINOPRIL | [facility] | + + + + | 2022-12-29 00:00 | LISINOPRIL | [facility] | + + + + | 2022-12-30 00:00 | LISINOPRIL | [facility] | + + + + | 2020-02-19 00:00 | ONDANSETRON HCL | [facility] | + + + + | 2022-03-04 00:00 | FLUTICASONE PROPIONATE | [facility] | + + + + | 2022-03-05 00:00 | FLUTICASONE PROPIONATE | [facility] | + + + + | 2022-03-16 00:00 | FLUTICASONE PROPIONATE | [facility] | + + + + | 2022-03-17 00:00 | FLUTICASONE PROPIONATE | [facility] | + + + + | 2022-04-10 00:00 | FLUTICASONE PROPIONATE | [facility] | + + + + | 2022-05-07 00:00 | FLUTICASONE PROPIONATE | [facility] | + + + + | 2022-06-07 00:00 | FLUTICASONE PROPIONATE | [facility] | + + + + | 2022-08-19 00:00 | FLUTICASONE PROPIONATE | [facility] | + + + + | 2022-12-29 00:00 | FLUTICASONE PROPIONATE | [facility] | + + + + | 2022-12-30 00:00 | FLUTICASONE PROPIONATE | [facility] | + + + + | 2022-03-02 00:00 | CEPHALEXIN | [facility] | + + + + | 2022-03-04 00:00 | OMEPRAZOLE | [facility] | + + + + | 2022-03-05 00:00 | OMEPRAZOLE | [facility] | + + + + | 2022-03-16 00:00 | OMEPRAZOLE | [facility] | + + + + | 2022-03-17 00:00 | OMEPRAZOLE | [facility] | + + + + | 2022-04-10 00:00 | OMEPRAZOLE | [facility] | + + + + | 2022-05-07 00:00 | OMEPRAZOLE | [facility] | + + + + | 2022-06-07 00:00 | OMEPRAZOLE | [facility] | + + + + | 2022-08-19 00:00 | OMEPRAZOLE | [facility] | + + + + | 2022-12-29 00:00 | OMEPRAZOLE | [facility] | + + + + | 2022-12-30 00:00 | OMEPRAZOLE | [facility] | + + + + | 2022-03-04 00:00 | FUROSEMIDE | [facility] | + + + + | 2022-03-05 00:00 | FUROSEMIDE | [facility] | + + + + | 2022-03-16 00:00 | FUROSEMIDE | [facility] | + + + + | 2022-03-17 00:00 | FUROSEMIDE | [facility] | + + + + | 2022-04-10 00:00 | FUROSEMIDE | [facility] | + + + + | 2022-05-07 00:00 | FUROSEMIDE | [facility] | + + + + | 2022-06-07 00:00 | FUROSEMIDE | [facility] | + + + + | 2022-08-19 00:00 | FUROSEMIDE | [facility] | + + + + | 2022-12-29 00:00 | FUROSEMIDE | [facility] | + + + + | 2022-12-30 00:00 | FUROSEMIDE | [facility] | + + + + | 2022-03-04 00:00 | SPIRONOLACTONE | [facility] | + + + + | 2022-03-05 00:00 | SPIRONOLACTONE | [facility] | + + + + | 2022-03-16 00:00 | SPIRONOLACTONE | [facility] | + + + + | 2022-03-17 00:00 | SPIRONOLACTONE | [facility] | + + + + | 2022-04-10 00:00 | SPIRONOLACTONE | [facility] | + + + + | 2022-05-07 00:00 | SPIRONOLACTONE | [facility] | + + + + | 2022-06-07 00:00 | SPIRONOLACTONE | [facility] | + + + + | 2022-08-19 00:00 | SPIRONOLACTONE | [facility] | + + + + | 2022-12-29 00:00 | SPIRONOLACTONE | [facility] | + + + + | 2022-12-30 00:00 | SPIRONOLACTONE | [facility] | + + + + | 2022-03-04 00:00 | LEVOFLOXACIN | [facility] | + + + + | 2022-03-05 00:00 | LEVOFLOXACIN | [facility] | + + + + | 2022-03-16 00:00 | LEVOFLOXACIN | [facility] | + + + + | 2022-03-17 00:00 | LEVOFLOXACIN | [facility] | + + + + | 2022-04-10 00:00 | LEVOFLOXACIN | [facility] | + + + + | 2022-05-07 00:00 | LEVOFLOXACIN | [facility] | + + + + | 2022-06-07 00:00 | LEVOFLOXACIN | [facility] | + + + + | 2022-08-19 00:00 | LEVOFLOXACIN | [facility] | + + + + | 2022-12-29 00:00 | LEVOFLOXACIN | [facility] | + + + + | 2022-12-30 00:00 | LEVOFLOXACIN | [facility] | + + + + | 2018-04-16 00:00 | CLOPIDOGREL BISULFATE | [facility] | + + + + | 2015-08-26 00:00 | AZITHROMYCIN | [facility] | + + + + | 2022-03-04 00:00 | DIGOXIN | [facility] | + + + + | 2022-03-05 00:00 | DIGOXIN | [facility] | + + + + | 2022-03-16 00:00 | DIGOXIN | [facility] | + + + + | 2022-03-17 00:00 | DIGOXIN | [facility] | + + + + | 2022-04-10 00:00 | DIGOXIN | [facility] | + + + + | 2022-05-07 00:00 | DIGOXIN | [facility] | + + + + | 2022-06-07 00:00 | DIGOXIN | [facility] | + + + + | 2022-08-19 00:00 | DIGOXIN | [facility] | + + + + | 2022-12-29 00:00 | DIGOXIN | [facility] | + + + + | 2022-12-30 00:00 | DIGOXIN | [facility] | + + + + | 2015-05-19 00:00 | CLINDAMYCIN HCL | [facility] | + + + + | 2022-03-04 00:00 | CLOPIDOGREL BISULFATE | [facility] | + + + + | 2022-03-05 00:00 | CLOPIDOGREL BISULFATE | [facility] | + + + + | 2022-03-16 00:00 | CLOPIDOGREL BISULFATE | [facility] | + + + + | 2022-03-17 00:00 | CLOPIDOGREL BISULFATE | [facility] | + + + + | 2022-04-10 00:00 | CLOPIDOGREL BISULFATE | [facility] | + + + + | 2022-05-07 00:00 | CLOPIDOGREL BISULFATE | [facility] | + + + + | 2022-06-07 00:00 | CLOPIDOGREL BISULFATE | [facility] | + + + + | 2022-08-19 00:00 | CLOPIDOGREL BISULFATE | [facility] | + + + + | 2022-12-29 00:00 | CLOPIDOGREL BISULFATE | [facility] | + + + + | 2022-12-30 00:00 | CLOPIDOGREL BISULFATE | [facility] | + + + + | 2022-03-04 00:00 | LISINOPRIL | [facility] | + + + + | 2022-03-05 00:00 | LISINOPRIL | [facility] | + + + + | 2022-03-16 00:00 | LISINOPRIL | [facility] | + + + + | 2022-03-17 00:00 | LISINOPRIL | [facility] | + + + + | 2022-04-10 00:00 | LISINOPRIL | [facility] | + + + + | 2022-05-07 00:00 | LISINOPRIL | [facility] | + + + + | 2022-06-07 00:00 | LISINOPRIL | [facility] | + + + + | 2022-08-19 00:00 | LISINOPRIL | [facility] | + + + + | 2022-12-29 00:00 | LISINOPRIL | [facility] | + + + + | 2022-12-30 00:00 | LISINOPRIL | [facility] | + + + + | 2022-03-04 00:00 | LORATADINE | [facility] | + + + + | 2022-03-05 00:00 | LORATADINE | [facility] | + + + + | 2022-03-16 00:00 | LORATADINE | [facility] | + + + + | 2022-03-17 00:00 | LORATADINE | [facility] | + + + + | 2022-04-10 00:00 | LORATADINE | [facility] | + + + + | 2022-05-07 00:00 | LORATADINE | [facility] | + + + + | 2022-06-07 00:00 | LORATADINE | [facility] | + + + + | 2022-08-19 00:00 | LORATADINE | [facility] | + + + + | 2022-12-29 00:00 | LORATADINE | [facility] | + + + + | 2022-03-16 00:00 | ONDANSETRON | [facility] | + + + + | 2013-01-10 00:00 | predniSONE | [facility] | + + + + | 2022-12-30 00:00 | predniSONE | [facility] | + + + + | 2022-03-04 00:00 | LISINOPRIL | [facility] | + + + + | 2022-03-05 00:00 | LISINOPRIL | [facility] | + + + + | 2022-03-16 00:00 | LISINOPRIL | [facility] | + + + + | 2022-03-17 00:00 | LISINOPRIL | [facility] | + + + + | 2022-04-10 00:00 | LISINOPRIL | [facility] | + + + + | 2022-05-07 00:00 | LISINOPRIL | [facility] | + + + + | 2022-06-07 00:00 | LISINOPRIL | [facility] | + + + + | 2022-08-19 00:00 | LISINOPRIL | [facility] | + + + + | 2022-12-29 00:00 | LISINOPRIL | [facility] | + + + + | 2022-12-30 00:00 | LISINOPRIL | [facility] | + + + + | 2022-06-07 00:00 | LACTULOSE | [facility] | + + + + | 2022-03-04 00:00 | TIOTROPIUM BROMIDE | [facility] | + + + + | 2022-03-05 00:00 | TIOTROPIUM BROMIDE | [facility] | + + + + | 2022-03-16 00:00 | TIOTROPIUM BROMIDE | [facility] | + + + + | 2022-03-17 00:00 | TIOTROPIUM BROMIDE | [facility] | + + + + | 2022-04-10 00:00 | TIOTROPIUM BROMIDE | [facility] | + + + + | 2022-05-07 00:00 | TIOTROPIUM BROMIDE | [facility] | + + + + | 2022-06-07 00:00 | TIOTROPIUM BROMIDE | [facility] | + + + + | 2022-08-19 00:00 | TIOTROPIUM BROMIDE | [facility] | + + + + | 2022-12-29 00:00 | TIOTROPIUM BROMIDE | [facility] | + + + + | 2022-12-30 00:00 | TIOTROPIUM BROMIDE | [facility] | + + + + | 2022-03-04 00:00 | ATORVASTATIN CALCIUM | [facility] | + + + + | 2022-03-05 00:00 | ATORVASTATIN CALCIUM | [facility] | + + + + | 2022-03-16 00:00 | ATORVASTATIN CALCIUM | [facility] | + + + + | 2022-03-17 00:00 | ATORVASTATIN CALCIUM | [facility] | + + + + | 2022-04-10 00:00 | ATORVASTATIN CALCIUM | [facility] | + + + + | 2022-05-07 00:00 | ATORVASTATIN CALCIUM | [facility] | + + + + | 2022-06-07 00:00 | ATORVASTATIN CALCIUM | [facility] | + + + + | 2022-08-19 00:00 | ATORVASTATIN CALCIUM | [facility] | + + + + | 2022-12-29 00:00 | ATORVASTATIN CALCIUM | [facility] | + + + + | 2022-12-30 00:00 | ATORVASTATIN CALCIUM | [facility] | + + + + | 2018-04-16 00:00 | ATORVASTATIN | [facility] | + + + + | 2022-03-04 00:00 | ALBUTEROL SULFATE MDI | [facility] | | | (HFA) | | + + + + | 2022-03-05 00:00 | ALBUTEROL SULFATE MDI | [facility] | | | (HFA) | | + + + + | 2022-03-16 00:00 | ALBUTEROL SULFATE MDI | [facility] | | | (HFA) | | + + + + | 2022-03-17 00:00 | ALBUTEROL SULFATE MDI | [facility] | | | (HFA) | | + + + + | 2022-04-10 00:00 | ALBUTEROL SULFATE MDI | [facility] | | | (HFA) | | + + + + | 2022-05-07 00:00 | ALBUTEROL SULFATE MDI | [facility] | | | (HFA) | | + + + + | 2022-06-07 00:00 | ALBUTEROL SULFATE MDI | [facility] | | | (HFA) | | + + + + | 2022-08-19 00:00 | ALBUTEROL SULFATE MDI | [facility] | | | (HFA) | | + + + + | 2022-12-29 00:00 | ALBUTEROL SULFATE MDI | [facility] | | | (HFA) | | + + + + | 2022-12-30 00:00 | ALBUTEROL SULFATE MDI | [facility] | | | (HFA) | | + + + + | 2015-08-25 00:00 | CYCLOBENZAPRINE HCL | [facility] | + + + + | 2022-12-30 00:00 | CYCLOBENZAPRINE HCL | [facility] | + + + + | 2019-07-27 00:00 | AMIODARONE HCL | [facility] | + + + + | 2022-03-04 00:00 | AMIODARONE HCL | [facility] | + + + + | 2022-03-05 00:00 | AMIODARONE HCL | [facility] | + + + + | 2022-03-16 00:00 | AMIODARONE HCL | [facility] | + + + + | 2022-03-17 00:00 | AMIODARONE HCL | [facility] | + + + + | 2022-04-10 00:00 | AMIODARONE HCL | [facility] | + + + + | 2022-05-07 00:00 | AMIODARONE HCL | [facility] | + + + + | 2022-06-07 00:00 | AMIODARONE HCL | [facility] | + + + + | 2022-08-19 00:00 | AMIODARONE HCL | [facility] | + + + + | 2022-12-29 00:00 | AMIODARONE HCL | [facility] | + + + + | 2022-12-30 00:00 | AMIODARONE HCL | [facility] | + + + + | 2022-03-04 00:00 | AMIODARONE HCL | [facility] | + + + + | 2022-03-05 00:00 | AMIODARONE HCL | [facility] | + + + + | 2022-03-16 00:00 | AMIODARONE HCL | [facility] | + + + + | 2022-03-17 00:00 | AMIODARONE HCL | [facility] | + + + + | 2022-04-10 00:00 | AMIODARONE HCL | [facility] | + + + + | 2022-05-07 00:00 | AMIODARONE HCL | [facility] | + + + + | 2022-06-07 00:00 | AMIODARONE HCL | [facility] | + + + + | 2022-08-19 00:00 | AMIODARONE HCL | [facility] | + + + + | 2022-12-29 00:00 | AMIODARONE HCL | [facility] | + + + + | 2022-12-30 00:00 | AMIODARONE HCL | [facility] | + + + + | 2022-03-04 00:00 | BISOPROLOL FUMARATE | [facility] | + + + + | 2022-03-05 00:00 | BISOPROLOL FUMARATE | [facility] | + + + + | 2022-03-16 00:00 | BISOPROLOL FUMARATE | [facility] | + + + + | 2022-03-17 00:00 | BISOPROLOL FUMARATE | [facility] | + + + + | 2022-04-10 00:00 | BISOPROLOL FUMARATE | [facility] | + + + + | 2022-05-07 00:00 | BISOPROLOL FUMARATE | [facility] | + + + + | 2022-06-07 00:00 | BISOPROLOL FUMARATE | [facility] | + + + + | 2022-08-19 00:00 | BISOPROLOL FUMARATE | [facility] | + + + + | 2022-12-29 00:00 | BISOPROLOL FUMARATE | [facility] | + + + + | 2022-12-30 00:00 | BISOPROLOL FUMARATE | [facility] | + + + + | 2022-05-07 00:00 | HYDROCODONE | [facility] | | | BIT/ACETAMINOPHEN | | + + + + | 2013-01-10 00:00 | HYDROCODONE | [facility] | | | BIT/ACETAMINOPHEN | | + + + + | 2015-08-25 00:00 | HYDROCODONE | [facility] | | | BIT/ACETAMINOPHEN | | + + + + | 2022-03-04 00:00 | CHOLECALCIFEROL (VITAMIN | [facility] | | | D3) | | + + + + | 2022-03-05 00:00 | CHOLECALCIFEROL (VITAMIN | [facility] | | | D3) | | + + + + | 2022-03-16 00:00 | CHOLECALCIFEROL (VITAMIN | [facility] | | | D3) | | + + + + | 2022-03-17 00:00 | CHOLECALCIFEROL (VITAMIN | [facility] | | | D3) | | + + + + | 2022-04-10 00:00 | CHOLECALCIFEROL (VITAMIN | [facility] | | | D3) | | + + + + | 2022-05-07 00:00 | CHOLECALCIFEROL (VITAMIN | [facility] | | | D3) | | + + + + | 2022-06-07 00:00 | CHOLECALCIFEROL (VITAMIN | [facility] | | | D3) | | + + + + | 2022-08-19 00:00 | CHOLECALCIFEROL (VITAMIN | [facility] | | | D3) | | + + + + | 2022-12-29 00:00 | CHOLECALCIFEROL (VITAMIN | [facility] | | | D3) | | + + + + | 2022-12-30 00:00 | CHOLECALCIFEROL (VITAMIN | [facility] | | | D3) | | + + + + | 2022-03-04 00:00 | METFORMIN HCL | [facility] | + + + + | 2022-03-05 00:00 | METFORMIN HCL | [facility] | + + + + | 2022-03-16 00:00 | METFORMIN HCL | [facility] | + + + + | 2022-03-17 00:00 | METFORMIN HCL | [facility] | + + + + | 2022-04-10 00:00 | METFORMIN HCL | [facility] | + + + + | 2022-05-07 00:00 | METFORMIN HCL | [facility] | + + + + | 2022-06-07 00:00 | METFORMIN HCL | [facility] | + + + + | 2022-08-19 00:00 | METFORMIN HCL | [facility] | + + + + | 2022-12-29 00:00 | METFORMIN HCL | [facility] | + + + + | 2022-12-30 00:00 | METFORMIN HCL | [facility] | + + + + | 2022-03-04 00:00 | metFORMIN HCL | [facility] | + + + + | 2022-03-05 00:00 | metFORMIN HCL | [facility] | + + + + | 2022-03-16 00:00 | metFORMIN HCL | [facility] | + + + + | 2022-03-17 00:00 | metFORMIN HCL | [facility] | + + + + | 2022-04-10 00:00 | metFORMIN HCL | [facility] | + + + + | 2022-05-07 00:00 | metFORMIN HCL | [facility] | + + + + | 2022-06-07 00:00 | metFORMIN HCL | [facility] | + + + + | 2022-08-19 00:00 | metFORMIN HCL | [facility] | + + + + | 2022-12-29 00:00 | metFORMIN HCL | [facility] | + + + + | 2022-12-30 00:00 | metFORMIN HCL | [facility] | + + + + | 2022-03-04 00:00 | METOPROLOL SUCCINATE | [facility] | + + + + | 2022-03-05 00:00 | METOPROLOL SUCCINATE | [facility] | + + + + | 2022-03-16 00:00 | METOPROLOL SUCCINATE | [facility] | + + + + | 2022-03-17 00:00 | METOPROLOL SUCCINATE | [facility] | + + + + | 2022-04-10 00:00 | METOPROLOL SUCCINATE | [facility] | + + + + | 2022-05-07 00:00 | METOPROLOL SUCCINATE | [facility] | + + + + | 2022-06-07 00:00 | METOPROLOL SUCCINATE | [facility] | + + + + | 2022-08-19 00:00 | METOPROLOL SUCCINATE | [facility] | + + + + | 2022-12-29 00:00 | METOPROLOL SUCCINATE | [facility] | + + + + | 2022-12-30 00:00 | METOPROLOL SUCCINATE | [facility] | + + + + | 2019-07-27 00:00 | METOPROLOL TARTRATE | [facility] | + + + + | 2022-03-04 00:00 | LEVOTHYROXINE SODIUM | [facility] | + + + + | 2022-03-05 00:00 | LEVOTHYROXINE SODIUM | [facility] | + + + + | 2022-03-16 00:00 | LEVOTHYROXINE SODIUM | [facility] | + + + + | 2022-03-17 00:00 | LEVOTHYROXINE SODIUM | [facility] | + + + + | 2022-04-10 00:00 | LEVOTHYROXINE SODIUM | [facility] | + + + + | 2022-05-07 00:00 | LEVOTHYROXINE SODIUM | [facility] | + + + + | 2022-06-07 00:00 | LEVOTHYROXINE SODIUM | [facility] | + + + + | 2022-08-19 00:00 | LEVOTHYROXINE SODIUM | [facility] | + + + + | 2022-12-29 00:00 | LEVOTHYROXINE SODIUM | [facility] | + + + + | 2022-12-30 00:00 | LEVOTHYROXINE SODIUM | [facility] | + + + + | 2022-03-04 00:00 | FLUTICASONE PROPIONATE | [facility] | + + + + | 2022-03-05 00:00 | FLUTICASONE PROPIONATE | [facility] | + + + + | 2022-03-16 00:00 | FLUTICASONE PROPIONATE | [facility] | + + + + | 2022-03-17 00:00 | FLUTICASONE PROPIONATE | [facility] | + + + + | 2022-04-10 00:00 | FLUTICASONE PROPIONATE | [facility] | + + + + | 2022-05-07 00:00 | FLUTICASONE PROPIONATE | [facility] | + + + + | 2022-06-07 00:00 | FLUTICASONE PROPIONATE | [facility] | + + + + | 2022-08-19 00:00 | FLUTICASONE PROPIONATE | [facility] | + + + + | 2022-12-29 00:00 | FLUTICASONE PROPIONATE | [facility] | + + + + | 2022-12-30 00:00 | FLUTICASONE PROPIONATE | [facility] | + + + + | 2022-03-04 00:00 | LEVOTHYROXINE SODIUM | [facility] | + + + + | 2022-03-05 00:00 | LEVOTHYROXINE SODIUM | [facility] | + + + + | 2022-03-16 00:00 | LEVOTHYROXINE SODIUM | [facility] | + + + + | 2022-03-17 00:00 | LEVOTHYROXINE SODIUM | [facility] | + + + + | 2022-04-10 00:00 | LEVOTHYROXINE SODIUM | [facility] | + + + + | 2022-05-07 00:00 | LEVOTHYROXINE SODIUM | [facility] | + + + + | 2022-06-07 00:00 | LEVOTHYROXINE SODIUM | [facility] | + + + + | 2022-08-19 00:00 | LEVOTHYROXINE SODIUM | [facility] | + + + + | 2022-12-29 00:00 | LEVOTHYROXINE SODIUM | [facility] | + + + + | 2022-12-30 00:00 | LEVOTHYROXINE SODIUM | [facility] | + + + + | 2022-03-04 00:00 | LEVOTHYROXINE SODIUM | [facility] | + + + + | 2022-03-05 00:00 | LEVOTHYROXINE SODIUM | [facility] | + + + + | 2022-03-16 00:00 | LEVOTHYROXINE SODIUM | [facility] | + + + + | 2022-03-17 00:00 | LEVOTHYROXINE SODIUM | [facility] | + + + + | 2022-04-10 00:00 | LEVOTHYROXINE SODIUM | [facility] | + + + + | 2022-05-07 00:00 | LEVOTHYROXINE SODIUM | [facility] | + + + + | 2022-06-07 00:00 | LEVOTHYROXINE SODIUM | [facility] | + + + + | 2022-08-19 00:00 | LEVOTHYROXINE SODIUM | [facility] | + + + + | 2022-12-29 00:00 | LEVOTHYROXINE SODIUM | [facility] | + + + + | 2022-12-30 00:00 | LEVOTHYROXINE SODIUM | [facility] | + + + + Problems + + + + | date | description | facility | + + + + | 2015-04-04 00:00 | Chest pain | [facility] | + + + + | 2015-05-19 00:00 | Hematoma following | [facility] | | | procedure | | + + + + | 2015-07-12 00:00 | Malaise and fatigue | [facility] | + + + + | 2015-08-13 00:00 | Obstructive chronic | [facility] | | | bronchitis with | | | | exacerbation | | + + + + | 2015-08-25 00:00 | Contusion of left thigh | [facility] | + + + + | 2015-08-26 00:00 | Pneumonia | [facility] | + + + + | 2015-11-03 00:00 | Sinusitis, acute | [facility] | + + + + | 2015-11-03 00:00 | Chest wall pain | [facility] | + + + + | 2016-06-26 00:00 | Weakness | [facility] | + + + + | 2016-10-03 00:00 | Dizziness | [facility] | + + + + | 2016-10-20 00:00 | Dyspnea | [facility] | + + + + | 2017-01-20 00:00 | Ventricular tachycardia | [facility] | + + + + | 2017-01-20 00:00 | Hypotension | [facility] | + + + + | 2018-04-15 00:00 | Transient ischemic attack | [facility] | + + + + | 2019-01-20 00:00 | Otitis media of right ear | [facility] | | | with spontaneous rupture of | | | | tympanic membrane | | + + + + | 2019-07-23 00:00 | Syncope | [facility] | + + + + | 2019-09-02 00:00 | Costochondritis | [facility] | + + + + | 2021-07-07 00:00 | Constipation | [facility] | + + + + | 2021-07-07 00:00 | Abdominal pain | [facility] | + + + + | 2021-08-10 00:00 | Pre-syncope | [facility] | + + + + | 2021-08-19 00:00 | Right inguinal pain | [facility] | + + + + | 2022-01-17 00:00 | Acute on chronic | [facility] | | | congestive heart failure | | + + + + | 2022-01-18 00:00 | Congestive heart failure | [facility] | + + + + | 2022-01-18 00:00 | Contusion of rib on left | [facility] | | | side | | + + + + | 2022-01-18 00:00 | Contusion of left knee | [facility] | + + + + | 2022-03-02 00:00 | Urinary tract infection | [facility] | + + + + | 2022-03-16 00:00 | Nausea and vomiting | [facility] | + + + + | 2022-03-16 00:00 | Heat exhaustion | [facility] | + + + + | 2022-05-07 00:00 | Melena | [facility] | + + + + | 2022-05-07 00:00 | Right lower quadrant | [facility] | | | abdominal pain | | + + + + | 2022-08-18 00:00 | Bronchitis | [facility] | + + + + | 2022-12-28 15:13 | UNILATERAL PRIMARY | [facility] | | | OSTEOARTHRITIS, RIGHT HIP | | + + + + | 2022-12-28 15:13 | PAIN IN RIGHT HIP | [facility] | + + + + | 2022-12-29 00:00 | Abdominal aortic aneurysm | [facility] | | | (AAA) | | + + + + | 2022-12-29 00:00 | Pain of right hip | [facility] | + + + + | 2022-12-30 00:00 | Sciatica | [facility] | + + + + Procedures No information. Results/Labs +--------+--------+ + +---------+--------+ + | test | date | author | facility | value | unit | | | | | | | | | interpreta | | | | | | | | tion | +--------+--------+ + +---------+--------+ + + + | Result panel 1 | + + + + + + +---------+ + + | (unknown) | (no date) | (unknown) | [facility] | (no | (units | (unknown) | | | | [facility] | value) | unknown) | | | | | [facility] | | | | + + + + +---------+ + + + + | Result panel 2 | + + + + + + +---------+ + + | (unknown) | (no date) | (unknown) | [facility] | (no | (units | (unknown) | | | | [facility] value[facility] | unknown) | | | [facility] | | | | + + + + +---------+ + + + + | Result panel 3 | + + + + + + +---------+ + + | (unknown) | (no date) | (unknown) | [facility] | (no | (units | (unknown) | | | | [facility] | value) | unknown) | | | [facility] | | | | + + + + +---------+ + + + + | Result panel 4 | + + + + + + +---------+ + + | (unknown) | (no date) | (unknown) | [facility] | (no | (units | (unknown) | | | | | [facility] | value) | unknown) | | | [facility] | | | | + + + + +---------+ + + + + | Result panel 5 | + + + + + + +---------+ + + | (unknown) | (no date) | (unknown) | [facility] | (no | (units | (unknown) | | | | | [facility] | value) | unknown) | | | [facility] | | | | + + + + +---------+ + + + + | Result panel 6 | + + + + + + +---------+ + + | (unknown) | (no date) | (unknown) | [facility] | (no | (units | (unknown) | | | | | [facility] | value) | unknown) | | [facility] | | | | + + + + +---------+ + + + + | Result panel 7 | + + + + + + +---------+ + + | (unknown) | (no date) | (unknown) | [facility] | (no | (units | (unknown) | | | | | [facility] | value) | unknown) | | | [facility] | | | | + + + + +---------+ + + + + | Result panel 8 | + + + + + + +---------+ + + | (unknown) | (no date) | (unknown) | [facility] | (no | (units | (unknown) | | | | | [facility] | value) | unknown) | [facility] | | | | + + + + +---------+ + + + + | Result panel 9 | + + + + + + +---------+ + + | (unknown) | (no date) | (unknown) | [facility] | (no | (units | (unknown) | | | | | [facility] | value) | unknown) | | [facility] | | | | + + + + +---------+ + + + + | Result panel 10 | + + + + + + +---------+ + + | (unknown) | (no date) | (unknown) | [facility] | (no | (units | (unknown) | | | | | [facility] | value) | unknown) | | [facility] | | | | + + + + +---------+ + + + + | Result panel 11 | + + + + + + +---------+ + + | (unknown) | (no date) | (unknown) | [facility] | (no | (units | (unknown) | | | | | [facility] | value) | unknown) | | [facility] | | | | + + + + +---------+ + + + + | Result panel 12 | + + + + + + +---------+ + + | (unknown) | (no date) | (unknown) | [facility] | (no | (units | (unknown) | | | | [facility] value) | unknown) | [facility] | | [facility] | | | | + + + + +---------+ + + + + | Result panel 13 | + + + + + + +---------+ + + | (unknown) | (no date) | (unknown) | [facility] | (no | (units | (unknown) | | | | [facility] | value) | unknown) | | | [facility] | | | | + + + + +---------+ + + + + | Result panel 14 | + + + + + + +---------+ + + | (unknown) | (no date) | (unknown) | [facility] | (no | (units | (unknown) | | | | | [facility] | value) | unknown) | [facility] | [facility] | | | | + + + + +---------+ + + + + | Result panel 15 | + + + + + + +---------+ + + | (unknown) | (no date) | (unknown) | [facility] | (no | (units | (unknown) | | | | | [facility] | value) | unknown) | | [facility] | | | | + + + + +---------+ + + + + | Result panel 16 | + + + + + + +---------+ + + | (unknown) | (no date) | (unknown) | [facility] | (no | (units | (unknown) | | | | | [facility] | value) | unknown) | | [facility] | | | | + + + + +---------+ + + + + | Result panel 17 | + + + + + + +---------+ + + | (unknown) | (no date) | (unknown) | [facility] | (no | (units | (unknown) | | | | | [facility] | value) | unknown) | | | | [facility] | | | | + + + + +---------+ + + + + | Result panel 18 | + + + + + + +---------+ + + | (unknown) | (no date) | (unknown) | [facility] | (no | (units | (unknown) | | | | | [facility] | value) | unknown) | | [facility] | | | | + + + + +---------+ + + + + | Result panel 19 | + + + + + + +---------+ + + | (unknown) | (no date) | (unknown) | [facility] | (no | (units | (unknown) | | | | | [facility] | value) | unknown) | | | | [facility] | | | | + + + + +---------+ + + + + | Result panel 20 | + + + + + + +---------+ + + | (unknown) | (no date) | (unknown) | [facility] | (no | (units | (unknown) | | | | | [facility] | value) | unknown) | | | [facility] | | | | + + + + +---------+ + + + + | Result panel 21 | + + + + + + +---------+ + + | (unknown) | (no date) | (unknown) | [facility] | (no | (units | (unknown) | | | | | [facility] | value) | unknown) | | | | [facility] | | | | + + + + +---------+ + + + + | Result panel 22 | + + + + + + +---------+ + + | (unknown) | (no date) | (unknown) | [facility] | (no | (units | (unknown) | | | | | [facility] | value) | unknown) | | | | [facility] | | | | + + + + +---------+ + + + + | Result panel 23 | + + + + + + +---------+ + + | (unknown) | (no date) | (unknown) | [facility] | (no | (units | (unknown) | | | | | [facility] | value) | unknown) | | | | [facility] | | | | + + + + +---------+ + + + + | Result panel 24 | + + + + + + +---------+ + + | (unknown) | (no date) | (unknown) | [facility] | (no | (units | (unknown) | | | | | [facility] | value) | unknown) | | | | [facility] | | | | + + + + +---------+ + + + + | Result panel 25 | + + + + + + +---------+ + + | (unknown) | (no date) | (unknown) | [facility] | (no | (units | (unknown) | | | | | [facility] | value) | unknown) | | | | [facility] | | | | + + + + +---------+ + + + + | Result panel 26 | + + + + + + +---------+ + + | (unknown) | (no date) | (unknown) | [facility] | (no | (units | (unknown) | | | | | [facility] | value) | unknown) | | | | [facility] | | | | + + + + +---------+ + + + + | Result panel 27 | + + + + + + +---------+ + + | (unknown) | (no date) | (unknown) | [facility] | (no | (units | (unknown) | | | | | [facility] | value) | unknown) | | | | [facility] | | | | + + + + +---------+ + + + + | Result panel 28 | + + + + + + +---------+ + + | (unknown) | (no date) | (unknown) | [facility] | (no | (units | (unknown) | | | | | [facility] | value) | unknown) | [facility] | [facility] | | | | + + + + +---------+ + + + + | Result panel 29 | + + + + + + +---------+ + + | (unknown) | (no date) | (unknown) | [facility] | (no | (units | (unknown) | | | | | [facility] | value) | unknown) | | | | [facility] | | | | + + + + +---------+ + + + + | Result panel 30 | + + + + + + +---------+ + + | (unknown) | (no date) | (unknown) | [facility] | (no | (units | (unknown) | | | | | [facility] | value) | unknown) | [facility] | [facility] | | | | + + + + +---------+ + + + + | Result panel 31 | + + + + + + +---------+ + + | (unknown) | (no date) | (unknown) | [facility] | (no | (units | (unknown) | | | | | [facility] | value) | unknown) | | | | [facility] | | | | + + + + +---------+ + + + + | Result panel 32 | + + + + + + +---------+ + + | (unknown) | (no date) | (unknown) | [facility] | (no | (units | (unknown) | | | | | [facility] | value) | unknown) | | | | [facility] | | | | + + + + +---------+ + + + + | Result panel 33 | + + + + + + +---------+ + + | (unknown) | (no date) | (unknown) | [facility] | (no | (units | (unknown) | | | | | [facility] | value) | unknown) | [facility] | | [facility] | | | | + + + + +---------+ + + + + | Result panel 34 | + + + + + + +---------+ + + | (unknown) | (no date) | (unknown) | [facility] | (no | (units | (unknown) | | | | | [facility] | value) | unknown) | [facility] | | [facility] | | | | + + + + +---------+ + + + + | Result panel 35 | + + + + + + +---------+ + + | (unknown) | (no date) | (unknown) | [facility] | (no | (units | (unknown) | | | | | [facility] | value) | unknown) | [facility] | | [facility] | | | | + + + + +---------+ + + + + | Result panel 36 | + + + + + + +---------+ + + | (unknown) | (no date) | (unknown) | [facility] | (no | (units | (unknown) | | | | | [facility] | value) | unknown) | | | | [facility] | | | | + + + + +---------+ + + + + | Result panel 37 | + + + + + + +---------+ + + | (unknown) | (no date) | (unknown) | [facility] | (no | (units | (unknown) | | | | | [facility] | value) | unknown) | | [facility] | [facility] | | | | + + + + +---------+ + + + + | Result panel 38 | + + + + + + +---------+ + + | (unknown) | (no date) | (unknown) | [facility] | (no | (units | (unknown) | | | | | [facility] | value) | unknown) | [facility] | | [facility] | | | | + + + + +---------+ + + + + | Result panel 39 | + + + + + + +---------+ + + | (unknown) | (no date) | (unknown) | [facility] | (no | (units | (unknown) | | | | | [facility] | value) | unknown) | | | | [facility] | | | | + + + + +---------+ + + + + | Result panel 40 | + + + + + + +---------+ + + | (unknown) | (no date) | (unknown) | [facility] | (no | (units | (unknown) | | | | | [facility] | value) | unknown) | | | | [facility] | | | | + + + + +---------+ + + + + | Result panel 41 | + + + + + + +---------+ + + | (unknown) | (no date) | (unknown) | [facility] | (no | (units | (unknown) | | | | | [facility] | value) | unknown) | | | | [facility] | | | | + + + + +---------+ + + + + | Result panel 42 | + + + + + + +---------+ + + | (unknown) | (no date) | (unknown) | [facility] | (no | (units | (unknown) | | | | | [facility] | value) | unknown) | | | | [facility] | | | | + + + + +---------+ + + + + | Result panel 43 | + + + + + + +---------+ + + | (unknown) | (no date) | (unknown) | [facility] | (no | (units | (unknown) | | | | | [facility] | value) | unknown) | | | | [facility] | | | | + + + + +---------+ + + + + | Result panel 44 | + + + + + + +---------+ + + | (unknown) | (no date) | (unknown) | [facility] | (no | (units | (unknown) | | | | | [facility] | value) | unknown) | | | | [facility] | | | | + + + + +---------+ + + + + | Result panel 45 | + + + + + + +---------+ + + | (unknown) | (no date) | (unknown) | [facility] | (no | (units | (unknown) | | | | | [facility] | value) | unknown) | | | | [facility] | | | | + + + + +---------+ + + + + | Result panel 46 | + + + + + + +---------+ + + | (unknown) | (no date) | (unknown) | [facility] | (no | (units | (unknown) | | | | | [facility] | value) | unknown) | | | | [facility] | | | | + + + + +---------+ + + + + | Result panel 47 | + + + + + + +---------+ + + | (unknown) | (no date) | (unknown) | [facility] | (no | (units | (unknown) | | | | | [facility] | value) | unknown) | | | | [facility] | | | | + + + + +---------+ + + + + | Result panel 48 | + + + + + + +---------+ + + | (unknown) | (no date) | (unknown) | [facility] | (no | (units | (unknown) | | | | | [facility] | value) | unknown) | [facility] | | [facility] | | | | + + + + +---------+ + + + + | Result panel 49 | + + + + + + +---------+ + + | (unknown) | (no date) | (unknown) | [facility] | (no | (units | (unknown) | | | | | [facility] | value) | unknown) | [facility] | | [facility] | | | | + + + + +---------+ + + + + | Result panel 50 | + + + + + + +---------+ + + | (unknown) | (no date) | (unknown) | [facility] | (no | (units | (unknown) | | | | | [facility] | value) | unknown) | | | | [facility] | | | | + + + + +---------+ + + + + | Result panel 51 | + + + + + + +---------+ + + | (unknown) | (no date) | (unknown) | [facility] | (no | (units | (unknown) | | | | | [facility] | value) | unknown) | | | | [facility] | | | | + + + + +---------+ + + + + | Result panel 52 | + + + + + + +---------+ + + | (unknown) | (no date) | (unknown) | [facility] | (no | (units | (unknown) | | | | | [facility] | value) | unknown) | | | | [facility] | | | | + + + + +---------+ + + + + | Result panel 53 | + + + + + + +---------+ + + | (unknown) | (no date) | (unknown) | [facility] | (no | (units | (unknown) | | | | | [facility] | value) | unknown) | | | | [facility] | | | | + + + + +---------+ + + + + | Result panel 54 | + + + + + + +---------+ + + | (unknown) | (no date) | (unknown) | [facility] | (no | (units | (unknown) | | | | | [facility] | value) | unknown) | | | | [facility] | | | | + + + + +---------+ + + + + | Result panel 55 | + + + + + + +---------+ + + | (unknown) | (no date) | (unknown) | [facility] | (no | (units | (unknown) | | | | | [facility] | value) | unknown) | | | | [facility] | | | | + + + + +---------+ + + + + | Result panel 56 | + + + + + + +---------+ + + | (unknown) | (no date) | (unknown) | [facility] | (no | (units | (unknown) | | | | | [facility] | value) | unknown) | | | | [facility] | | | | + + + + +---------+ + + + + | Result panel 57 | + + + + + + +---------+ + + | (unknown) | (no date) | (unknown) | [facility] | (no | (units | (unknown) | | | | | [facility] | value) | unknown) | | | | [facility] | | | | + + + + +---------+ + + + + | Result panel 58 | + + + + + + +---------+ + + | (unknown) | (no date) | (unknown) | [facility] | (no | (units | (unknown) | | | | [facility] | value) | unknown) | | | | [facility] | | | | + + + + +---------+ + + + + | Result panel 59 | + + + + + + +---------+ + + | (unknown) | (no date) | (unknown) | [facility] | (no | (units | (unknown) | | | | [facility] | value) | unknown) | | | | [facility] | | | | + + + + +---------+ + + + + | Result panel 60 | + + + + + + +---------+ + + | (unknown) | (no date) | (unknown) | [facility] | (no | (units | (unknown) | | | | [facility] | value) | unknown) | | | | [facility] | | | | + + + + +---------+ + + + + | Result panel 61 | + + + + + + +---------+ + + | (unknown) | (no date) | (unknown) | [facility] | (no | (units | (unknown) | | | | [facility] | value) | unknown) | | | | [facility] | | | | + + + + +---------+ + + + + | Result panel 62 | + + + + + + +---------+ + + | (unknown) | (no date) | (unknown) | [facility] | (no | (units | (unknown) | | | | [facility] | value) | unknown) | | | | [facility] | | | | + + + + +---------+ + + + + | Result panel 63 | + + + + + + +---------+ + + | (unknown) | (no date) | (unknown) | [facility] | (no | (units | (unknown) | | [facility] | [facility] | value) | unknown) | | | | [facility] | | | | + + + + +---------+ + + + + | Result panel 64 | + + + + + + +---------+ + + | (unknown) | (no date) | (unknown) | [facility] | (no | (units | (unknown) | | [facility] | [facility] | value) | unknown) | [facility] | | [facility] | | | | + + + + +---------+ + + + + | Result panel 65 | + + + + + + +---------+ + + | (unknown) | (no date) | (unknown) | [facility] | (no | (units | (unknown) | | | | [facility] | value) | unknown) | | | | [facility] | | | | + + + + +---------+ + + + + | Result panel 66 | + + + + + + +---------+ + + | (unknown) | (no date) | (unknown) | [facility] | (no | (units | (unknown) | | | | | [facility] | value) | unknown) | | | | [facility] | | | | + + + + +---------+ + + + + | Result panel 67 | + + + + + + +---------+ + + | (unknown) | (no date) | (unknown) | [facility] | (no | (units | (unknown) | | | | | [facility] | value) | unknown) | | | | | [facility] | | | | + + + + +---------+ + + + + | Result panel 68 | + + + + + + +---------+ + + | (unknown) | (no date) | (unknown) | [facility] | (no | (units | (unknown) | | | | [facility] | value) | unknown) | | | | [facility] | | | | + + + + +---------+ + + + + | Result panel 69 | + + + + + + +---------+ + + | (unknown) | (no date) | (unknown) | [facility] | (no | (units | (unknown) | | | | [facility] | value) | unknown) | | | | [facility] | | | | + + + + +---------+ + + + + | Result panel 70 | + + + + + + +---------+ + + | (unknown) | (no date) | (unknown) | [facility] | (no | (units | (unknown) | | | | [facility] | value) | unknown) | | | | [facility] | | | | + + + + +---------+ + + + + | Result panel 71 | + + + + + + +---------+ + + | (unknown) | (no date) | (unknown) | [facility] | (no | (units | (unknown) | | | | [facility] | value) | unknown) | | | | [facility] | | | | + + + + +---------+ + + + + | Result panel 72 | + + + + + + +---------+ + + | (unknown) | (no date) | (unknown) | [facility] | (no | (units | (unknown) | | | | [facility] value) | unknown) | | | | [facility] | | | | + + + + +---------+ + + + + | Result panel 73 | + + + + + + +---------+ + + | (unknown) | (no date) | (unknown) | [facility] | (no | (units | (unknown) | | | | [facility] | value) | unknown) | | | | [facility] | | | | + + + + +---------+ + + + + | Result panel 74 | + + + + + + +---------+ + + | (unknown) | (no date) | (unknown) | [facility] | (no | (units | (unknown) | | | | [facility] | value) | unknown) | | | | [facility] | | | | + + + + +---------+ + + + + | Result panel 75 | + + + + + + +---------+ + + | (unknown) | (no date) | (unknown) | [facility] | (no | (units | (unknown) | | | | [facility] value) | unknown) | [facility] | | [facility] | | | | + + + + +---------+ + + + + | Result panel 76 | + + + + + + +---------+ + + | (unknown) | (no date) | (unknown) | [facility] | (no | (units | (unknown) | | | | [facility] | value) | unknown) | [facility] | | [facility] | | | | + + + + +---------+ + + + + | Result panel 77 | + + + + + + +---------+ + + | (unknown) | (no date) | (unknown) | [facility] | (no | (units | (unknown) | | | | [facility] | value) | unknown) | | | | [facility] | | | | + + + + +---------+ + + + + | Result panel 78 | + + + + + + +---------+ + + | (unknown) | (no date) | (unknown) | [facility] | (no | (units | (unknown) | | | | [facility] | value) | unknown) | | | | [facility] | | | | + + + + +---------+ + + + + | Result panel 79 | + + + + + + +---------+ + + | (unknown) | (no date) | (unknown) | [facility] | (no | (units | (unknown) | | | | [facility] | value) | unknown) | | | | [facility] | | | | + + + + +---------+ + + + + | Result panel 80 | + + + + + + +---------+ + + | (unknown) | (no date) | (unknown) | [facility] | (no | (units | (unknown) | | | | [facility] | value) | unknown) | | | | [facility] | | | | + + + + +---------+ + + + + | Result panel 81 | + + + + + + +---------+ + + | (unknown) | (no date) | (unknown) | [facility] | (no | (units | (unknown) | | | | [facility] | value) | unknown) | | | | [facility] | | | | + + + + +---------+ + + + + | Result panel 82 | + + + + + + +---------+ + + | (unknown) | (no date) | (unknown) | [facility] | (no | (units | (unknown) | | | | [facility] | value) | unknown) | | | | [facility] | | | | + + + + +---------+ + + + + | Result panel 83 | + + + + + + +---------+ + + | (unknown) | (no date) | (unknown) | [facility] | (no | (units | (unknown) | | | | [facility] | value) | unknown) | | | | [facility] | | | | + + + + +---------+ + + + + | Result panel 84 | + + + + + + +---------+ + + | (unknown) | (no date) | (unknown) | [facility] | (no | (units | (unknown) | | | | [facility] | value) | unknown) | | | | [facility] | | | | + + + + +---------+ + + + + | Result panel 85 | + + + + + + +---------+ + + | (unknown) | (no date) | (unknown) | [facility] | (no | (units | (unknown) | | | | [facility] | value) | unknown) | | | | [facility] | | | | + + + + +---------+ + + + + | Result panel 86 | + + + + + + +---------+ + + | (unknown) | (no date) | (unknown) | [facility] | (no | (units | (unknown) | | | | [facility] | value) | unknown) | | | | [facility] | | | | + + + + +---------+ + + + + | Result panel 87 | + + + + + + +---------+ + + | (unknown) | (no date) | (unknown) | [facility] | (no | (units | (unknown) | | | | [facility] | value) | unknown) | | | | | [facility] | | | | + + + + +---------+ + + + + | Result panel 88 | + + + + + + +---------+ + + | (unknown) | (no date) | (unknown) | [facility] | (no | (units | (unknown) | | [facility] | [facility] | value) | unknown) | | | | [facility] | | | | + + + + +---------+ + + + + | Result panel 89 | + + + + + + +---------+ + + | (unknown) | (no date) | (unknown) | [facility] | (no | (units | (unknown) | | | | [facility] | value) | unknown) | | | | | [facility] | | | | + + + + +---------+ + + + + | Result panel 90 | + + + + + + +---------+ + + | (unknown) | (no date) | (unknown) | [facility] | (no | (units | (unknown) | | | | [facility] | value) | unknown) | | | | | [facility] | | | | + + + + +---------+ + + + + | Result panel 91 | + + + + + + +---------+ + + | (unknown) | (no date) | (unknown) | [facility] | (no | (units | (unknown) | | | | [facility] | value) | unknown) | | | | | [facility] | | | | + + + + +---------+ + + + + | Result panel 92 | + + + + + + +---------+ + + | (unknown) | (no date) | (unknown) | [facility] | (no | (units | (unknown) | | [facility] | [facility] | value) | unknown) | | | | | [facility] | | | | + + + + +---------+ + + + + | Result panel 93 | + + + + + + +---------+ + + | (unknown) | (no date) | (unknown) | [facility] | (no | (units | (unknown) | | | | [facility] | value) | unknown) | | | | [facility] | | | | + + + + +---------+ + + + + | Result panel 94 | + + + + + + +---------+ + + | (unknown) | (no date) | (unknown) | [facility] | (no | (units | (unknown) | | | | [facility] | value) | unknown) | [facility] | | [facility] | | | | + + + + +---------+ + + + + | Result panel 95 | + + + + + + +---------+ + + | (unknown) | (no date) | (unknown) | [facility] | (no | (units | (unknown) | | | | [facility] | value) | unknown) | | | | [facility] | | | | + + + + +---------+ + + + + | Result panel 96 | + + + + + + +---------+ + + | (unknown) | (no date) | (unknown) | [facility] | (no | (units | (unknown) | | | | [facility] | value) | unknown) | | | | [facility] | | | | + + + + +---------+ + + + + | Result panel 97 | + + + + + + +---------+ + + | (unknown) | (no date) | (unknown) | [facility] | (no | (units | (unknown) | | | | [facility] | value) | unknown) | | | | [facility] | | | | + + + + +---------+ + + + + | Result panel 98 | + + + + + + +---------+ + + | (unknown) | (no date) | (unknown) | [facility] | (no | (units | (unknown) | | | | [facility] | value) | unknown) | | | | [facility] | | | | + + + + +---------+ + + + + | Result panel 99 | + + + + + + +---------+ + + | (unknown) | (no date) | (unknown) | [facility] | (no | (units | (unknown) | | | | [facility] | value) | unknown) | | | | [facility] | | | | + + + + +---------+ + + + + | Result panel 100 | + + + + + + +---------+ + + | (unknown) | (no date) | (unknown) | [facility] | (no | (units | (unknown) | | | | [facility] | value) | unknown) | | | | [facility] | | | | + + + + +---------+ + + + + | Result panel 101 | + + + + + + +---------+ + + | (unknown) | (no date) | (unknown) | [facility] | (no | (units | (unknown) | | | | [facility] | value) | unknown) | | | | [facility] | | | | + + + + +---------+ + + + + | Result panel 102 | + + + + + + +---------+ + + | (unknown) | (no date) | (unknown) | [facility] | (no | (units | (unknown) | | | | [facility] | value) | unknown) | | | | [facility] | | | | + + + + +---------+ + + + + | Result panel 103 | + + + + + + +---------+ + + | (unknown) | (no date) | (unknown) | [facility] | (no | (units | (unknown) | | | | [facility] | value) | unknown) | | | | | [facility] | | | | + + + + +---------+ + + + + | Result panel 104 | + + + + + + +---------+ + + | (unknown) | (no date) | (unknown) | [facility] | (no | (units | (unknown) | | | | | [facility] | value) | unknown) | | | | | [facility] | | | | + + + + +---------+ + + + + | Result panel 105 | + + + + + + +---------+ + + | (unknown) | (no date) | (unknown) | [facility] | (no | (units | (unknown) | | | | | [facility] | value) | unknown) | | | | | [facility] | | | | + + + + +---------+ + + + + | Result panel 106 | + + + + + + +---------+ + + | (unknown) | (no date) | (unknown) | [facility] | (no | (units | (unknown) | | | | | [facility] | value) | unknown) | | | | | [facility] | | | | + + + + +---------+ + + + + | Result panel 107 | + + + + + + +---------+ + + | (unknown) | (no date) | (unknown) | [facility] | (no | (units | (unknown) | | | | | [facility] | value) | unknown) | | | | | [facility] | | | | + + + + +---------+ + + + + | Result panel 108 | + + + + + + +---------+ + + | (unknown) | (no date) | (unknown) | [facility] | (no | (units | (unknown) | | | | | [facility] | value) | unknown) | | | | | | [facility] | | | | + + + + +---------+ + + + + | Result panel 109 | + + + + + + +---------+ + + | (unknown) | (no date) | (unknown) | [facility] | (no | (units | (unknown) | | | | | [facility] | value) | unknown) | | | | | | [facility] | | | | + + + + +---------+ + + + + | Result panel 110 | + + + + + + +---------+ + + | (unknown) | (no date) | (unknown) | [facility] | (no | (units | (unknown) | | | | | [facility] | value) | unknown) | | | | | | [facility] | | | | + + + + +---------+ + + + + | Result panel 111 | + + + + + + +---------+ + + | (unknown) | (no date) | (unknown) | [facility] | (no | (units | (unknown) | | | | | [facility] | value) | unknown) | | | | | [facility] | | | | + + + + +---------+ + + + + | Result panel 112 | + + + + + + +---------+ + + | (unknown) | (no date) | (unknown) | [facility] | (no | (units | (unknown) | | | | | [facility] | value) | unknown) | | | | | [facility] | | | | + + + + +---------+ + + + + | Result panel 113 | + + + + + + +---------+ + + | (unknown) | (no date) | (unknown) | [facility] | (no | (units | (unknown) | | | | | [facility] | value) | unknown) | | | [facility] | | [facility] | | | | + + + + +---------+ + + + + | Result panel 114 | + + + + + + +---------+ + + | (unknown) | (no date) | (unknown) | [facility] | (no | (units | (unknown) | | | | [facility] value[facility] | unknown) | | | [facility] | | | | + + + + +---------+ + + + + | Result panel 115 | + + + + + + +---------+ + + | (unknown) | (no date) | (unknown) | [facility] | (no | (units | (unknown) | | | | [facility] | value) | unknown) | | | [facility] | | | | + + + + +---------+ + + + + | Result panel 116 | + + + + + + +---------+ + + | (unknown) | (no date) | (unknown) | [facility] | (no | (units | (unknown) | | | | [facility] value) | unknown) | | | [facility] | | | | + + + + +---------+ + + + + | Result panel 117 | + + + + + + +---------+ + + | (unknown) | (no date) | (unknown) | [facility] | (no | (units | (unknown) | | | | [facility] | value) | unknown) | | | [facility] | | | | + + + + +---------+ + + + + | Result panel 118 | + + + + + + +---------+ + + | (unknown) | (no date) | (unknown) | [facility] | (no | (units | (unknown) | | | | [facility] | value) | unknown) | | | [facility] | | | | + + + + +---------+ + + + + | Result panel 119 | + + + + + + +---------+ + + | (unknown) | (no date) | (unknown) | [facility] | (no | (units | (unknown) | | | | [facility] | value) | unknown) | | | [facility] | | | | + + + + +---------+ + + + + | Result panel 120 | + + + + + + +---------+ + + | (unknown) | (no date) | (unknown) | [facility] | (no | (units | (unknown) | | | | [facility] | value) | unknown) | | | [facility] | | | | + + + + +---------+ + + + + | Result panel 121 | + + + + + + +---------+ + + | (unknown) | (no date) | (unknown) | [facility] | (no | (units | (unknown) | | | | [facility] | value) | unknown) | | | [facility] | | | | + + + + +---------+ + + + + | Result panel 122 | + + + + + + +---------+ + + | (unknown) | (no date) | (unknown) | [facility] | (no | (units | (unknown) | | | | [facility] | value) | unknown) | | [facility] | | | | + + + + +---------+ + + + + | Result panel 123 | + + + + + + +---------+ + + | (unknown) | (no date) | (unknown) | [facility] | (no | (units | (unknown) | | | | [facility] value) | unknown) | | | [facility] | | | | + + + + +---------+ + + + + | Result panel 124 | + + + + + + +---------+ + + | (unknown) | (no date) | (unknown) | [facility] | (no | (units | (unknown) | | | | [facility] value) | unknown) | | | [facility] | | | | + + + + +---------+ + + + + | Result panel 125 | + + + + + + +---------+ + + | (unknown) | (no date) | (unknown) | [facility] | (no | (units | (unknown) | | | | [facility] value) | unknown) | | | | [facility] | | | | + + + + +---------+ + + + + | Result panel 126 | + + + + + + +---------+ + + | (unknown) | (no date) | (unknown) | [facility] | (no | (units | (unknown) | | | | [facility] value) | unknown) | | | [facility] | | | | + + + + +---------+ + + + + | Result panel 127 | + + + + + + +---------+ + + | (unknown) | (no date) | (unknown) | [facility] | (no | (units | (unknown) | | | | [facility] value) | unknown) | | [facility] | | | | + + + + +---------+ + + + + | Result panel 128 | + + + + + + +---------+ + + | (unknown) | (no date) | (unknown) | [facility] | (no | (units | (unknown) | | | | [facility] | value) | unknown) | | | [facility] | | | | + + + + +---------+ + + + + | Result panel 129 | + + + + + + +---------+ + + | (unknown) | (no date) | (unknown) | [facility] | (no | (units | (unknown) | | | | | [facility] | value) | unknown) | [facility] | [facility] | | | | + + + + +---------+ + + + + | Result panel 130 | + + + + + + +---------+ + + | (unknown) | (no date) | (unknown) | [facility] | (no | (units | (unknown) | | | | [facility] | value) | unknown) | [facility] | | [facility] | | | | + + + + +---------+ + + + + | Result panel 131 | + + + + + + +---------+ + + | (unknown) | (no date) | (unknown) | [facility] | (no | (units | (unknown) | | | | [facility] | value) | unknown) | | | [facility] | | | | + + + + +---------+ + + + + | Result panel 132 | + + + + + + +---------+ + + | (unknown) | (no date) | (unknown) | [facility] | (no | (units | (unknown) | | [facility] | [facility] value) | unknown) | | | [facility] | | | | + + + + +---------+ + + + + | Result panel 133 | + + + + + + +---------+ + + | (unknown) | (no date) | (unknown) | [facility] | (no | (units | (unknown) | | | | [facility] value) | unknown) | | | [facility] | | | | + + + + +---------+ + + + + | Result panel 134 | + + + + + + +---------+ + + | (unknown) | (no date) | (unknown) | [facility] | (no | (units | (unknown) | | | | [facility] | value) | unknown) | | | | [facility] | | | | + + + + +---------+ + + + + | Result panel 135 | + + + + + + +---------+ + + | (unknown) | (no date) | (unknown) | [facility] | (no | (units | (unknown) | | | | [facility] | value) | unknown) | | | | [facility] | | | | + + + + +---------+ + + + + | Result panel 136 | + + + + + + +---------+ + + | (unknown) | (no date) | (unknown) | [facility] | (no | (units | (unknown) | | | | [facility] | value) | unknown) | [facility] | | [facility] | | | | + + + + +---------+ + + + + | Result panel 137 | + + + + + + +---------+ + + | (unknown) | (no date) | (unknown) | [facility] | (no | (units | (unknown) | | | | [facility] | value) | unknown) | | | | [facility] | | | | + + + + +---------+ + + + + | Result panel 138 | + + + + + + +---------+ + + | (unknown) | (no date) | (unknown) | [facility] | (no | (units | (unknown) | | | | | [facility] | value) | unknown) | | | | [facility] | | | | + + + + +---------+ + + + + | Result panel 139 | + + + + + + +---------+ + + | (unknown) | (no date) | (unknown) | [facility] | (no | (units | (unknown) | | | | [facility] | value) | unknown) | | | | [facility] | | | | + + + + +---------+ + + + + | Result panel 140 | + + + + + + +---------+ + + | (unknown) | (no date) | (unknown) | [facility] | (no | (units | (unknown) | | | | [facility] value) | unknown) | | | | [facility] | | | | + + + + +---------+ + + + + | Result panel 141 | + + + + + + +---------+ + + | (unknown) | (no date) | (unknown) | [facility] | (no | (units | (unknown) | | | | [facility] value) | unknown) | | | | [facility] | | | | + + + + +---------+ + + + + | Result panel 142 | + + + + + + +---------+ + + | (unknown) | (no date) | (unknown) | [facility] | (no | (units | (unknown) | | | | [facility] value) | unknown) | | | | [facility] | | | | + + + + +---------+ + + + + | Result panel 143 | + + + + + + +---------+ + + | (unknown) | (no date) | (unknown) | [facility] | (no | (units | (unknown) | | | | [facility] value) | unknown) | | | | [facility] | | | | + + + + +---------+ + + + + | Result panel 144 | + + + + + + +---------+ + + | (unknown) | (no date) | (unknown) | [facility] | (no | (units | (unknown) | | [facility] | [facility] | value) | unknown) | | | | [facility] | | | | + + + + +---------+ + + + + | Result panel 145 | + + + + + + +---------+ + + | (unknown) | (no date) | (unknown) | [facility] | (no | (units | (unknown) | | | | | [facility] | value) | unknown) | | | | [facility] | | | | + + + + +---------+ + + + + | Result panel 146 | + + + + + + +---------+ + + | (unknown) | (no date) | (unknown) | [facility] | (no | (units | (unknown) | | | | [facility] | value) | unknown) | [facility] | | [facility] | | | | + + + + +---------+ + + + + | Result panel 147 | + + + + + + +---------+ + + | (unknown) | (no date) | (unknown) | [facility] | (no | (units | (unknown) | | | | [facility] | value) | unknown) | | | | [facility] | | | | + + + + +---------+ + + + + | Result panel 148 | + + + + + + +---------+ + + | (unknown) | (no date) | (unknown) | [facility] | (no | (units | (unknown) | | | | | [facility] | value) | unknown) | | | | [facility] | | | | + + + + +---------+ + + + + | Result panel 149 | + + + + + + +---------+ + + | (unknown) | (no date) | (unknown) | [facility] | (no | (units | (unknown) | | | | [facility] | value) | unknown) | [facility] | | [facility] | | | | + + + + +---------+ + + + + | Result panel 150 | + + + + + + +---------+ + + | (unknown) | (no date) | (unknown) | [facility] | (no | (units | (unknown) | | | | [facility] | value) | unknown) | [facility] | | [facility] | | | | + + + + +---------+ + + + + | Result panel 151 | + + + + + + +---------+ + + | (unknown) | (no date) | (unknown) | [facility] | (no | (units | (unknown) | | | | [facility] | value) | unknown) | [facility] | | [facility] | | | | + + + + +---------+ + + + + | Result panel 152 | + + + + + + +---------+ + + | (unknown) | (no date) | (unknown) | [facility] | (no | (units | (unknown) | | | | [facility] | value) | unknown) | | | | [facility] | | | | + + + + +---------+ + + + + | Result panel 153 | + + + + + + +---------+ + + | (unknown) | (no date) | (unknown) | [facility] | (no | (units | (unknown) | | | | [facility] | value) | unknown) | | | | [facility] | | | | + + + + +---------+ + + + + | Result panel 154 | + + + + + + +---------+ + + | (unknown) | (no date) | (unknown) | [facility] | (no | (units | (unknown) | | | | [facility] | value) | unknown) | | | | [facility] | | | | + + + + +---------+ + + + + | Result panel 155 | + + + + + + +---------+ + + | (unknown) | (no date) | (unknown) | [facility] | (no | (units | (unknown) | | [facility] | [facility] | value) | unknown) | | | | [facility] | | | | + + + + +---------+ + + + + | Result panel 156 | + + + + + + +---------+ + + | (unknown) | (no date) | (unknown) | [facility] | (no | (units | (unknown) | | | | [facility] | value) | unknown) | | | | [facility] | | | | + + + + +---------+ + + + + | Result panel 157 | + + + + + + +---------+ + + | (unknown) | (no date) | (unknown) | [facility] | (no | (units | (unknown) | | | | [facility] | value) | unknown) | | | | [facility] | | | | + + + + +---------+ + + + + | Result panel 158 | + + + + + + +---------+ + + | (unknown) | (no date) | (unknown) | [facility] | (no | (units | (unknown) | | | | | [facility] | value) | unknown) | | | | [facility] | | | | + + + + +---------+ + + + + | Result panel 159 | + + + + + + +---------+ + + | (unknown) | (no date) | (unknown) | [facility] | (no | (units | (unknown) | | | | | [facility] | value) | unknown) | | | | [facility] | | | | + + + + +---------+ + + + + | Result panel 160 | + + + + + + +---------+ + + | (unknown) | (no date) | (unknown) | [facility] | (no | (units | (unknown) | | | | [facility] | value) | unknown) | | | | [facility] | | | | + + + + +---------+ + + + + | Result panel 161 | + + + + + + +---------+ + + | (unknown) | (no date) | (unknown) | [facility] | (no | (units | (unknown) | | | | [facility] | value) | unknown) | | | | [facility] | | | | + + + + +---------+ + + + + | Result panel 162 | + + + + + + +---------+ + + | (unknown) | (no date) | (unknown) | [facility] | (no | (units | (unknown) | | | | [facility] | value) | unknown) | | | | [facility] | | | | + + + + +---------+ + + + + | Result panel 163 | + + + + + + +---------+ + + | (unknown) | (no date) | (unknown) | [facility] | (no | (units | (unknown) | | | | [facility] | value) | unknown) | | | | [facility] | | | | + + + + +---------+ + + + + | Result panel 164 | + + + + + + +---------+ + + | (unknown) | (no date) | (unknown) | [facility] | (no | (units | (unknown) | | | | [facility] | value) | unknown) | [facility] | | [facility] | | | | + + + + +---------+ + + + + | Result panel 165 | + + + + + + +---------+ + + | (unknown) | (no date) | (unknown) | [facility] | (no | (units | (unknown) | | | | [facility] | value) | unknown) | [facility] | | [facility] | | | | + + + + +---------+ + + + + | Result panel 166 | + + + + + + +---------+ + + | (unknown) | (no date) | (unknown) | [facility] | (no | (units | (unknown) | | | | [facility] | value) | unknown) | | | | [facility] | | | | + + + + +---------+ + + + + | Result panel 167 | + + + + + + +---------+ + + | (unknown) | (no date) | (unknown) | [facility] | (no | (units | (unknown) | | | | [facility] | value) | unknown) | | | | [facility] | | | | + + + + +---------+ + + + + | Result panel 168 | + + + + + + +---------+ + + | (unknown) | (no date) | (unknown) | [facility] | (no | (units | (unknown) | | | | [facility] value) | unknown) | | | | [facility] | | | | + + + + +---------+ + + + + | Result panel 169 | + + + + + + +---------+ + + | (unknown) | (no date) | (unknown) | [facility] | (no | (units | (unknown) | | | | [facility] value) | unknown) | | | | [facility] | | | | + + + + +---------+ + + + + | Result panel 170 | + + + + + + +---------+ + + | (unknown) | (no date) | (unknown) | [facility] | (no | (units | (unknown) | | | | [facility] value) | unknown) | | | | [facility] | | | | + + + + +---------+ + + + + | Result panel 171 | + + + + + + +---------+ + + | (unknown) | (no date) | (unknown) | [facility] | (no | (units | (unknown) | | | | [facility] value) | unknown) | | | | [facility] | | | | + + + + +---------+ + + + + | Result panel 172 | + + + + + + +---------+ + + | (unknown) | (no date) | (unknown) | [facility] | (no | (units | (unknown) | | | | [facility] value) | unknown) | | | | [facility] | | | | + + + + +---------+ + + + + | Result panel 173 | + + + + + + +---------+ + + | (unknown) | (no date) | (unknown) | [facility] | (no | (units | (unknown) | | | | [facility] value) | unknown) | | [facility] | [facility] | | | | + + + + +---------+ + + + + | Result panel 174 | + + + + + + +---------+ + + | (unknown) | (no date) | (unknown) | [facility] | (no | (units | (unknown) | | | | [facility] value) | unknown) | | | [facility] | | | | + + + + +---------+ + + + + | Result panel 175 | + + + + + + +---------+ + + | (unknown) | (no date) | (unknown) | [facility] | (no | (units | (unknown) | | | | [facility] value) | unknown) | | | | [facility] | | | | + + + + +---------+ + + + + | Result panel 176 | + + + + + + +---------+ + + | (unknown) | (no date) | (unknown) | [facility] | (no | (units | (unknown) | | [facility] | [facility] value) | unknown) | | | | [facility] | | | | + + + + +---------+ + + + + | Result panel 177 | + + + + + + +---------+ + + | (unknown) | (no date) | (unknown) | [facility] | (no | (units | (unknown) | | | | [facility] value) | unknown) | | | | [facility] | | | | + + + + +---------+ + + + + | Result panel 178 | + + + + + + +---------+ + + | (unknown) | (no date) | (unknown) | [facility] | (no | (units | (unknown) | | | | [facility] | value) | unknown) | | | | [facility] | | | | + + + + +---------+ + + + + | Result panel 179 | + + + + + + +---------+ + + | (unknown) | (no date) | (unknown) | [facility] | (no | (units | (unknown) | | | | [facility] | value) | unknown) | | | | [facility] | | | | + + + + +---------+ + + + + | Result panel 180 | + + + + + + +---------+ + + | (unknown) | (no date) | (unknown) | [facility] | (no | (units | (unknown) | | | | [facility] | value) | unknown) | | | | [facility] | | | | + + + + +---------+ + + + + | Result panel 181 | + + + + + + +---------+ + + | (unknown) | (no date) | (unknown) | [facility] | (no | (units | (unknown) | | | | [facility] | value) | unknown) | | | | [facility] | | | | + + + + +---------+ + + + + | Result panel 182 | + + + + + + +---------+ + + | (unknown) | (no date) | (unknown) | [facility] | (no | (units | (unknown) | | | | [facility] | value) | unknown) | | | | [facility] | | | | + + + + +---------+ + + + + | Result panel 183 | + + + + + + +---------+ + + | (unknown) | (no date) | (unknown) | [facility] | (no | (units | (unknown) | | | | [facility] | value) | unknown) | | | | [facility] | | | | + + + + +---------+ + + + + | Result panel 184 | + + + + + + +---------+ + + | (unknown) | (no date) | (unknown) | [facility] | (no | (units | (unknown) | | | | [facility] value) | unknown) | | | | [facility] | | | | + + + + +---------+ + + + + | Result panel 185 | + + + + + + +---------+ + + | (unknown) | (no date) | (unknown) | [facility] | (no | (units | (unknown) | | | | [facility] | value) | unknown) | | | | [facility] | | | | + + + + +---------+ + + + + | Result panel 186 | + + + + + + +---------+ + + | (unknown) | (no date) | (unknown) | [facility] | (no | (units | (unknown) | | | | [facility] value) | unknown) | | | | [facility] | | | | + + + + +---------+ + + + + | Result panel 187 | + + + + + + +---------+ + + | (unknown) | (no date) | (unknown) | [facility] | (no | (units | (unknown) | | | | [facility] value) | unknown) | | | | [facility] | | | | + + + + +---------+ + + + + | Result panel 188 | + + + + + + +---------+ + + | (unknown) | (no date) | (unknown) | [facility] | (no | (units | (unknown) | | | | [facility] | value) | unknown) | | | | [facility] | | | | + + + + +---------+ + + + + | Result panel 189 | + + + + + + +---------+ + + | (unknown) | (no date) | (unknown) | [facility] | (no | (units | (unknown) | | | | [facility] value) | unknown) | | | | [facility] | | | | + + + + +---------+ + + + + | Result panel 190 | + + + + + + +---------+ + + | (unknown) | (no date) | (unknown) | [facility] | (no | (units | (unknown) | | | | [facility] | value) | unknown) | | | | [facility] | | | | + + + + +---------+ + + + + | Result panel 191 | + + + + + + +---------+ + + | (unknown) | (no date) | (unknown) | [facility] | (no | (units | (unknown) | | | | [facility] | value) | unknown) | | | | [facility] | | | | + + + + +---------+ + + + + | Result panel 192 | + + + + + + +---------+ + + | (unknown) | (no date) | (unknown) | [facility] | (no | (units | (unknown) | | | | [facility] | value) | unknown) | | | | [facility] | | | | + + + + +---------+ + + + + | Result panel 193 | + + + + + + +---------+ + + | (unknown) | (no date) | (unknown) | [facility] | (no | (units | (unknown) | | | | [facility] | value) | unknown) | | | | [facility] | | | | + + + + +---------+ + + + + | Result panel 194 | + + + + + + +---------+ + + | (unknown) | (no date) | (unknown) | [facility] | (no | (units | (unknown) | | | | [facility] | value) | unknown) | | | | [facility] | | | | + + + + +---------+ + + + + | Result panel 195 | + + + + + + +---------+ + + | (unknown) | (no date) | (unknown) | [facility] | (no | (units | (unknown) | | | | [facility] | value) | unknown) | | | | [facility] | | | | + + + + +---------+ + + + + | Result panel 196 | + + + + + + +---------+ + + | (unknown) | (no date) | (unknown) | [facility] | (no | (units | (unknown) | | [facility] | [facility] | value) | unknown) | | | | [facility] | | | | + + + + +---------+ + + + + | Result panel 197 | + + + + + + +---------+ + + | (unknown) | (no date) | (unknown) | [facility] | (no | (units | (unknown) | | [facility] | [facility] | value) | unknown) | | | | [facility] | | | | + + + + +---------+ + + + + | Result panel 198 | + + + + + + +---------+ + + | (unknown) | (no date) | (unknown) | [facility] | (no | (units | (unknown) | | | | [facility] | value) | unknown) | | | | [facility] | | | | + + + + +---------+ + + + + | Result panel 199 | + + + + + + +---------+ + + | (unknown) | (no date) | (unknown) | [facility] | (no | (units | (unknown) | | | | [facility] | value) | unknown) | | | | | [facility] | | | | + + + + +---------+ + + + + | Result panel 200 | + + + + + + +---------+ + + | (unknown) | (no date) | (unknown) | [facility] | (no | (units | (unknown) | | | | [facility] | value) | unknown) | | | | [facility] | | | | + + + + +---------+ + + + + | Result panel 201 | + + + + + + +---------+ + + | (unknown) | (no date) | (unknown) | [facility] | (no | (units | (unknown) | | [facility] | [facility] value) | unknown) | [facility] | | [facility] | | | | + + + + +---------+ + + + + | Result panel 202 | + + + + + + +---------+ + + | (unknown) | (no date) | (unknown) | [facility] | (no | (units | (unknown) | | | | [facility] | value) | unknown) | | | | [facility] | | | | + + + + +---------+ + + + + | Result panel 203 | + + + + + + +---------+ + + | (unknown) | (no date) | (unknown) | [facility] | (no | (units | (unknown) | | | | [facility] | value) | unknown) | | | | [facility] | | | | + + + + +---------+ + + + + | Result panel 204 | + + + + + + +---------+ + + | (unknown) | (no date) | (unknown) | [facility] | (no | (units | (unknown) | | [facility] | [facility] value) | unknown) | | | | [facility] | | | | + + + + +---------+ + + + + | Result panel 205 | + + + + + + +---------+ + + | (unknown) | (no date) | (unknown) | [facility] | (no | (units | (unknown) | | | | [facility] value) | unknown) | | | | [facility] | | | | + + + + +---------+ + + + + | Result panel 206 | + + + + + + +---------+ + + | (unknown) | (no date) | (unknown) | [facility] | (no | (units | (unknown) | | | | [facility] value) | unknown) | | | | [facility] | | | | + + + + +---------+ + + + + | Result panel 207 | + + + + + + +---------+ + + | (unknown) | (no date) | (unknown) | [facility] | (no | (units | (unknown) | | | | [facility] | value) | unknown) | | | | [facility] | | | | + + + + +---------+ + + + + | Result panel 208 | + + + + + + +---------+ + + | (unknown) | (no date) | (unknown) | [facility] | (no | (units | (unknown) | | | | [facility] value) | unknown) | | | | [facility] | | | | + + + + +---------+ + + + + | Result panel 209 | + + + + + + +---------+ + + | (unknown) | (no date) | (unknown) | [facility] | (no | (units | (unknown) | | | | [facility] | value) | unknown) | | | | [facility] | | | | + + + + +---------+ + + + + | Result panel 210 | + + + + + + +---------+ + + | (unknown) | (no date) | (unknown) | [facility] | (no | (units | (unknown) | | | | [facility] value) | unknown) | | | | [facility] | | | | + + + + +---------+ + + + + | Result panel 211 | + + + + + + +---------+ + + | (unknown) | (no date) | (unknown) | [facility] | (no | (units | (unknown) | | | | [facility] value) | unknown) | | | | [facility] | | | | + + + + +---------+ + + + + | Result panel 212 | + + + + + + +---------+ + + | (unknown) | (no date) | (unknown) | [facility] | (no | (units | (unknown) | | | | [facility] value) | unknown) | | | | [facility] | | | | + + + + +---------+ + + + + | Result panel 213 | + + + + + + +---------+ + + | (unknown) | (no date) | (unknown) | [facility] | (no | (units | (unknown) | | | [facility] value) | unknown) | | [facility] | [facility] | | | | + + + + +---------+ + + + + | Result panel 214 | + + + + + + +---------+ + + | (unknown) | (no date) | (unknown) | [facility] | (no | (units | (unknown) | | [facility] value) | unknown) | | | | [facility] | | | | + + + + +---------+ + + + + | Result panel 215 | + + + + + + +---------+ + + | (unknown) | (no date) | (unknown) | [facility] | (no | (units | (unknown) | | | [facility] value) | unknown) | | | | [facility] | | | | + + + + +---------+ + + + + | Result panel 216 | + + + + + + +---------+ + + | (unknown) | (no date) | (unknown) | [facility] | (no | (units | (unknown) | | | | | [facility] | value) | unknown) | | | | | [facility] | | | | + + + + +---------+ + + + + | Result panel 217 | + + + + + + +---------+ + + | (unknown) | (no date) | (unknown) | [facility] | (no | (units | (unknown) | | | | | [facility] | value) | unknown) | | | | | [facility] | | | | + + + + +---------+ + + + + | Result panel 218 | + + + + + + +---------+ + + | (unknown) | (no date) | (unknown) | [facility] | (no | (units | (unknown) | | | | | [facility] | value) | unknown) | | | | | [facility] | | | | + + + + +---------+ + + + + | Result panel 219 | + + + + + + +---------+ + + | (unknown) | (no date) | (unknown) | [facility] | (no | (units | (unknown) | | | | | [facility] | value) | unknown) | | | | | [facility] | | | | + + + + +---------+ + + + + | Result panel 220 | + + + + + + +---------+ + + | (unknown) | (no date) | (unknown) | [facility] | (no | (units | (unknown) | | | | | [facility] | value) | unknown) | | | | | [facility] | | | | + + + + +---------+ + + + + | Result panel 221 | + + + + + + +---------+ + + | (unknown) | (no date) | (unknown) | [facility] | (no | (units | (unknown) | | | | | [facility] | value) | unknown) | | | | | [facility] | | | | + + + + +---------+ + + + + | Result panel 222 | + + + + + + +---------+ + + | (unknown) | (no date) | (unknown) | [facility] | (no | (units | (unknown) | | | | | [facility] | value) | unknown) | | | | | [facility] | | | | + + + + +---------+ + + + + | Result panel 223 | + + + + + + +---------+ + + | (unknown) | (no date) | (unknown) | [facility] | (no | (units | (unknown) | | | | | [facility] | value) | unknown) | | | | | [facility] | | | | + + + + +---------+ + + + + | Result panel 224 | + + + + + + +---------+ + + | (unknown) | (no date) | (unknown) | [facility] | (no | (units | (unknown) | | | | | [facility] | value) | unknown) | | | | | [facility] | | | | + + + + +---------+ + + + + | Result panel 225 | + + + + + + +---------+ + + | (unknown) | (no date) | (unknown) | [facility] | (no | (units | (unknown) | | | | | [facility] | value) | unknown) | | [facility] | | | | + + + + +---------+ + + + + | Result panel 226 | + + + + + + +---------+ + + | (unknown) | (no date) | (unknown) | [facility] | (no | (units | (unknown) | | | [facility] value) | unknown) | | | | [facility] | | | | + + + + +---------+ + + + + | Result panel 227 | + + + + + + +---------+ + + | (unknown) | (no date) | (unknown) | [facility] | (no | (units | (unknown) | | | | [facility] | value) | unknown) | | [facility] | | | | + + + + +---------+ + + + + | Result panel 228 | + + + + + + +---------+ + + | (unknown) | (no date) | (unknown) | [facility] | (no | (units | (unknown) | | | | [facility] | value) | unknown) | [facility] | | | | + + + + +---------+ + + + + | Result panel 229 | + + + + + + +---------+ + + | (unknown) | (no date) | (unknown) | [facility] | (no | (units | (unknown) | | | | [facility] | value) | unknown) | | [facility] | | | | + + + + +---------+ + + + + | Result panel 230 | + + + + + + +---------+ + + | (unknown) | (no date) | (unknown) | [facility] | (no | (units | (unknown) | | | | [facility] | value) | unknown) | | | [facility] | | | | + + + + +---------+ + + + + | Result panel 231 | + + + + + + +---------+ + + | (unknown) | (no date) | (unknown) | [facility] | (no | (units | (unknown) | | | | [facility] | value) | unknown) | | | [facility] | | | | + + + + +---------+ + + + + | Result panel 232 | + + + + + + +---------+ + + | (unknown) | (no date) | (unknown) | [facility] | (no | (units | (unknown) | | | | [facility] | value) | unknown) | | [facility] | | | | + + + + +---------+ + + + + | Result panel 233 | + + + + + + +---------+ + + | (unknown) | (no date) | (unknown) | [facility] | (no | (units | (unknown) | | | | [facility] | value) | unknown) | | | [facility] | | | | + + + + +---------+ + + + + | Result panel 234 | + + + + + + +---------+ + + | (unknown) | (no date) | (unknown) | [facility] | (no | (units | (unknown) | | | | [facility] | value) | unknown) | | [facility] | | | | + + + + +---------+ + + + + | Result panel 235 | + + + + + + +---------+ + + | (unknown) | (no date) | (unknown) | [facility] | (no | (units | (unknown) | | | | [facility] | value) | unknown) | | | [facility] | | | | + + + + +---------+ + + + + | Result panel 236 | + + + + + + +---------+ + + | (unknown) | (no date) | (unknown) | [facility] | (no | (units | (unknown) | | | | [facility] | value) | unknown) | | | [facility] | | | | + + + + +---------+ + + + + | Result panel 237 | + + + + + + +---------+ + + | (unknown) | (no date) | (unknown) | [facility] | (no | (units | (unknown) | | | | [facility] | value) | unknown) | | | [facility] | | | | + + + + +---------+ + + + + | Result panel 238 | + + + + + + +---------+ + + | (unknown) | (no date) | (unknown) | [facility] | (no | (units | (unknown) | | | | [facility] | value) | unknown) | | | [facility] | | | | + + + + +---------+ + + + + | Result panel 239 | + + + + + + +---------+ + + | (unknown) | (no date) | (unknown) | [facility] | (no | (units | (unknown) | | | | [facility] | value) | unknown) | [facility] | [facility] | | | | + + + + +---------+ + + + + | Result panel 240 | + + + + + + +---------+ + + | (unknown) | (no date) | (unknown) | [facility] | (no | (units | (unknown) | | | | [facility] | value) | unknown) | [facility] | | [facility] | | | | + + + + +---------+ + + + + | Result panel 241 | + + + + + + +---------+ + + | (unknown) | (no date) | (unknown) | [facility] | (no | (units | (unknown) | | | | [facility] | value) | unknown) | [facility] | [facility] | | | | + + + + +---------+ + + + + | Result panel 242 | + + + + + + +---------+ + + | (unknown) | (no date) | (unknown) | [facility] | (no | (units | (unknown) | | | | [facility] | value) | unknown) | [facility] | | [facility] | | | | + + + + +---------+ + + + + | Result panel 243 | + + + + + + +---------+ + + | (unknown) | (no date) | (unknown) | [facility] | (no | (units | (unknown) | | | | [facility] | value) | unknown) | | | | [facility] | | | | + + + + +---------+ + + + + | Result panel 244 | + + + + + + +---------+ + + | (unknown) | (no date) | (unknown) | [facility] | (no | (units | (unknown) | | | | [facility] | value) | unknown) | [facility] | [facility] | | | | + + + + +---------+ + + + + | Result panel 245 | + + + + + + +---------+ + + | (unknown) | (no date) | (unknown) | [facility] | (no | (units | (unknown) | | | | [facility] | value) | unknown) | | | [facility] | | | | + + + + +---------+ + + + + | Result panel 246 | + + + + + + +---------+ + + | (unknown) | (no date) | (unknown) | [facility] | (no | (units | (unknown) | | | | [facility] value) | [facility]) | | | [facility] | | | | + + + + +---------+ + + + + | Result panel 247 | + + + + + + +---------+ + + | (unknown) | (no date) | (unknown) | [facility] | (no | (units | (unknown) | | | | [facility] | value) | unknown) | | | | [facility] | | | | + + + + +---------+ + + + + | Result panel 248 | + + + + + + +---------+ + + | (unknown) | (no date) | (unknown) | [facility] | (no | (units | (unknown) | | | | [facility] | value) | unknown) | | | | [facility] | | | | + + + + +---------+ + + + + | Result panel 249 | + + + + + + +---------+ + + | (unknown) | (no date) | (unknown) | [facility] | (no | (units | (unknown) | | | | [facility] | value) | unknown) | | | | [facility] | | | | + + + + +---------+ + + + + | Result panel 250 | + + + + + + +---------+ + + | (unknown) | (no date) | (unknown) | [facility] | (no | (units | (unknown) | | | | [facility] | value) | unknown) | | | | [facility] | | | | + + + + +---------+ + + + + | Result panel 251 | + + + + + + +---------+ + + | (unknown) | (no date) | (unknown) | [facility] | (no | (units | (unknown) | | | | [facility] | value) | unknown) | [facility] | | [facility] | | | | + + + + +---------+ + + + + | Result panel 252 | + + + + + + +---------+ + + | (unknown) | (no date) | (unknown) | [facility] | (no | (units | (unknown) | | | | [facility] | value) | unknown) | | | | [facility] | | | | + + + + +---------+ + + + + | Result panel 253 | + + + + + + +---------+ + + | (unknown) | (no date) | (unknown) | [facility] | (no | (units | (unknown) | | | | [facility] | value) | unknown) | | [facility] | | | | + + + + +---------+ + + + + | Result panel 254 | + + + + + + +---------+ + + | (unknown) | (no date) | (unknown) | [facility] | (no | (units | (unknown) | | | | [facility] | value) | unknown) | | [facility] | [facility] | | | | + + + + +---------+ + + + + | Result panel 255 | + + + + + + +---------+ + + | (unknown) | (no date) | (unknown) | [facility] | (no | (units | (unknown) | | | | [facility] | value) | unknown) | [facility] | | | | + + + + +---------+ + + + + | Result panel 256 | + + + + + + +---------+ + + | (unknown) | (no date) | (unknown) | [facility] | (no | (units | (unknown) | | | | [facility] | value) | unknown) | [facility] | | [facility] | | | | + + + + +---------+ + + + + | Result panel 257 | + + + + + + +---------+ + + | (unknown) | (no date) | (unknown) | [facility] | (no | (units | (unknown) | | | | [facility] | value) | unknown) | | | | [facility] | | | | + + + + +---------+ + + + + | Result panel 258 | + + + + + + +---------+ + + | (unknown) | (no date) | (unknown) | [facility] | (no | (units | (unknown) | | | | [facility] | value) | unknown) | | [facility] | [facility] | | | | + + + + +---------+ + + + + | Result panel 259 | + + + + + + +---------+ + + | (unknown) | (no date) | (unknown) | [facility] | (no | (units | (unknown) | | | | [facility] | value) | unknown) | | | | [facility] | | | | + + + + +---------+ + + + + | Result panel 260 | + + + + + + +---------+ + + | (unknown) | (no date) | (unknown) | [facility] | (no | (units | (unknown) | | | | [facility] | value) | unknown) | | | | [facility] | | | | + + + + +---------+ + + + + | Result panel 261 | + + + + + + +---------+ + + | (unknown) | (no date) | (unknown) | [facility] | (no | (units | (unknown) | | | | [facility] | value) | unknown) | [facility] | | [facility] | | | | + + + + +---------+ + + + + | Result panel 262 | + + + + + + +---------+ + + | (unknown) | (no date) | (unknown) | [facility] | (no | (units | (unknown) | | | | [facility] | value) | unknown) | | | | [facility] | | | | + + + + +---------+ + + + + | Result panel 263 | + + + + + + +---------+ + + | (unknown) | (no date) | (unknown) | [facility] | (no | (units | (unknown) | | | | [facility] | value) | unknown) | | | | [facility] | | | | + + + + +---------+ + + + + | Result panel 264 | + + + + + + +---------+ + + | (unknown) | (no date) | (unknown) | [facility] | (no | (units | (unknown) | | | | [facility] | value) | unknown) | | | | [facility] | | | | + + + + +---------+ + + + + | Result panel 265 | + + + + + + +---------+ + + | (unknown) | (no date) | (unknown) | [facility] | (no | (units | (unknown) | | | | [facility] | value) | unknown) | | | | [facility] | | | | + + + + +---------+ + + + + | Result panel 266 | + + + + + + +---------+ + + | (unknown) | (no date) | (unknown) | [facility] | (no | (units | (unknown) | | | | [facility] | value) | unknown) | | | | [facility] | | | | + + + + +---------+ + + + + | Result panel 267 | + + + + + + +---------+ + + | (unknown) | (no date) | (unknown) | [facility] | (no | (units | (unknown) | | | | [facility] | value) | unknown) | | | | [facility] | | | | + + + + +---------+ + + + + | Result panel 268 | + + + + + + +---------+ + + | (unknown) | (no date) | (unknown) | [facility] | (no | (units | (unknown) | | | | [facility] | value) | unknown) | | | | [facility] | | | | + + + + +---------+ + + + + | Result panel 269 | + + + + + + +---------+ + + | (unknown) | (no date) | (unknown) | [facility] | (no | (units | (unknown) | | | | [facility] | value) | unknown) | | [facility] | | | | + + + + +---------+ + + + + | Result panel 270 | + + + + + + +---------+ + + | (unknown) | (no date) | (unknown) | [facility] | (no | (units | (unknown) | | | | [facility] | value) | unknown) | | [facility] | [facility] | | | | + + + + +---------+ + + + + | Result panel 271 | + + + + + + +---------+ + + | (unknown) | (no date) | (unknown) | [facility] | (no | (units | (unknown) | | | | [facility] | value) | unknown) | | | | [facility] | | | | + + + + +---------+ + + + + | Result panel 272 | + + + + + + +---------+ + + | (unknown) | (no date) | (unknown) | [facility] | (no | (units | (unknown) | | | | [facility] | value) | unknown) | [facility] | | [facility] | | | | + + + + +---------+ + + + + | Result panel 273 | + + + + + + +---------+ + + | (unknown) | (no date) | (unknown) | [facility] | (no | (units | (unknown) | | | | [facility] | value) | unknown) | | | | [facility] | | | | + + + + +---------+ + + + + | Result panel 274 | + + + + + + +---------+ + + | (unknown) | (no date) | (unknown) | [facility] | (no | (units | (unknown) | | | | [facility] | value) | unknown) | | | | [facility] | | | | + + + + +---------+ + + + + | Result panel 275 | + + + + + + +---------+ + + | (unknown) | (no date) | (unknown) | [facility] | (no | (units | (unknown) | | | | [facility] | value) | unknown) | | [facility] | [facility] | | | | + + + + +---------+ + + + + | Result panel 276 | + + + + + + +---------+ + + | (unknown) | (no date) | (unknown) | [facility] | (no | (units | (unknown) | | | | [facility] | value) | unknown) | | | | [facility] | | | | + + + + +---------+ + + + + | Result panel 277 | + + + + + + +---------+ + + | (unknown) | (no date) | (unknown) | [facility] | (no | (units | (unknown) | | | | [facility] | value) | unknown) | [facility] | | [facility] | | | | + + + + +---------+ + + + + | Result panel 278 | + + + + + + +---------+ + + | (unknown) | (no date) | (unknown) | [facility] | (no | (units | (unknown) | | | | [facility] | value) | unknown) | | | | [facility] | | | | + + + + +---------+ + + + + | Result panel 279 | + + + + + + +---------+ + + | (unknown) | (no date) | (unknown) | [facility] | (no | (units | (unknown) | | | | [facility] | value) | unknown) | | | | [facility] | | | | + + + + +---------+ + + + + | Result panel 280 | + + + + + + +---------+ + + | (unknown) | (no date) | (unknown) | [facility] | (no | (units | (unknown) | | | | [facility] | value) | unknown) | | | | [facility] | | | | + + + + +---------+ + + + + | Result panel 281 | + + + + + + +---------+ + + | (unknown) | (no date) | (unknown) | [facility] | (no | (units | (unknown) | | | | [facility] | value) | unknown) | | | | [facility] | | | | + + + + +---------+ + + + + | Result panel 282 | + + + + + + +---------+ + + | (unknown) | (no date) | (unknown) | [facility] | (no | (units | (unknown) | | | | [facility] | value) | unknown) | | | | [facility] | | | | + + + + +---------+ + + + + | Result panel 283 | + + + + + + +---------+ + + | (unknown) | (no date) | (unknown) | [facility] | (no | (units | (unknown) | | [facility] | [facility] value) | unknown) | | [facility] | | | | + + + + +---------+ + + + + | Result panel 284 | + + + + + + +---------+ + + | (unknown) | (no date) | (unknown) | [facility] | (no | (units | (unknown) | | | | [facility] value) | unknown) | | | | [facility] | | | | + + + + +---------+ + + + + | Result panel 285 | + + + + + + +---------+ + + | (unknown) | (no date) | (unknown) | [facility] | (no | (units | (unknown) | | | | [facility] value) | unknown) | | | [facility] | | | | + + + + +---------+ + + + + | Result panel 286 | + + + + + + +---------+ + + | (unknown) | (no date) | (unknown) | [facility] | (no | (units | (unknown) | | | | [facility] value) | unknown) | | | | [facility] | | | | + + + + +---------+ + + + + | Result panel 287 | + + + + + + +---------+ + + | (unknown) | (no date) | (unknown) | [facility] | (no | (units | (unknown) | | | | [facility] | value) | unknown) | | | | [facility] | | | | + + + + +---------+ + + + + | Result panel 288 | + + + + + + +---------+ + + | (unknown) | (no date) | (unknown) | [facility] | (no | (units | (unknown) | | | | [facility] | value) | unknown) | | | | [facility] | | | | + + + + +---------+ + + + + | Result panel 289 | + + + + + + +---------+ + + | (unknown) | (no date) | (unknown) | [facility] | (no | (units | (unknown) | | | | [facility] | value) | unknown) | | | | [facility] | | | | + + + + +---------+ + + + + | Result panel 290 | + + + + + + +---------+ + + | (unknown) | (no date) | (unknown) | [facility] | (no | (units | (unknown) | | | | [facility] | value) | unknown) | | | | [facility] | | | | + + + + +---------+ + + + + | Result panel 291 | + + + + + + +---------+ + + | (unknown) | (no date) | (unknown) | [facility] | (no | (units | (unknown) | | | | [facility] | value) | unknown) | | | | [facility] | | | | + + + + +---------+ + + + + | Result panel 292 | + + + + + + +---------+ + + | (unknown) | (no date) | (unknown) | [facility] | (no | (units | (unknown) | | | | [facility] | value) | unknown) | | | | [facility] | | | | + + + + +---------+ + + + + | Result panel 293 | + + + + + + +---------+ + + | (unknown) | (no date) | (unknown) | [facility] | (no | (units | (unknown) | | | | [facility] | value) | unknown) | | | | [facility] | | | | + + + + +---------+ + + + + | Result panel 294 | + + + + + + +---------+ + + | (unknown) | (no date) | (unknown) | [facility] | (no | (units | (unknown) | | | | [facility] | value) | unknown) | | | | [facility] | | | | + + + + +---------+ + + + + | Result panel 295 | + + + + + + +---------+ + + | (unknown) | (no date) | (unknown) | [facility] | (no | (units | (unknown) | | | | [facility] | value) | unknown) | | | | [facility] | | | | + + + + +---------+ + + + + | Result panel 296 | + + + + + + +---------+ + + | (unknown) | (no date) | (unknown) | [facility] | (no | (units | (unknown) | | | | [facility] value) | unknown) | | | | [facility] | | | | + + + + +---------+ + + + + | Result panel 297 | + + + + + + +---------+ + + | (unknown) | (no date) | (unknown) | [facility] | (no | (units | (unknown) | | | | [facility] | value) | unknown) | | | | [facility] | | | | + + + + +---------+ + + + + | Result panel 298 | + + + + + + +---------+ + + | (unknown) | (no date) | (unknown) | [facility] | (no | (units | (unknown) | | | | [facility] | value) | unknown) | | | | [facility] | | | | + + + + +---------+ + + + + | Result panel 299 | + + + + + + +---------+ + + | (unknown) | (no date) | (unknown) | [facility] | (no | (units | (unknown) | | | | [facility] value) | unknown) | [facility] | [facility] | | | | + + + + +---------+ + + + + | Result panel 300 | + + + + + + +---------+ + + | (unknown) | (no date) | (unknown) | [facility] | (no | (units | (unknown) | | | | [facility] | value) | unknown) | | | | [facility] | | | | + + + + +---------+ + + + + | Result panel 301 | + + + + + + +---------+ + + | (unknown) | (no date) | (unknown) | [facility] | (no | (units | (unknown) | | | | [facility] | value) | unknown) | [facility] | | [facility] | | | | + + + + +---------+ + + + + | Result panel 302 | + + + + + + +---------+ + + | (unknown) | (no date) | (unknown) | [facility] | (no | (units | (unknown) | | | | [facility] | value) | unknown) | | [facility] | [facility] | | | | + + + + +---------+ + + + + | Result panel 303 | + + + + + + +---------+ + + | (unknown) | (no date) | (unknown) | [facility] | (no | (units | (unknown) | | | | [facility] | value) | unknown) | | | | [facility] | | | | + + + + +---------+ + + + + | Result panel 304 | + + + + + + +---------+ + + | (unknown) | (no date) | (unknown) | [facility] | (no | (units | (unknown) | | [facility] | [facility] | value) | unknown) | [facility] | [facility] | | | | + + + + +---------+ + + + + | Result panel 305 | + + + + + + +---------+ + + | (unknown) | (no date) | (unknown) | [facility] | (no | (units | (unknown) | | | | [facility] | value) | unknown) | [facility] | [facility] | | | | + + + + +---------+ + + + + | Result panel 306 | + + + + + + +---------+ + + | (unknown) | (no date) | (unknown) | [facility] | (no | (units | (unknown) | | | | [facility] | value) | unknown) | | | | [facility] | | | | + + + + +---------+ + + + + | Result panel 307 | + + + + + + +---------+ + + | (unknown) | (no date) | (unknown) | [facility] | (no | (units | (unknown) | | | | [facility] | value) | unknown) | | | | [facility] | | | | + + + + +---------+ + + + + | Result panel 308 | + + + + + + +---------+ + + | (unknown) | (no date) | (unknown) | [facility] | (no | (units | (unknown) | | | | [facility] | value) | unknown) | | [facility] | [facility] | | | | + + + + +---------+ + + + + | Result panel 309 | + + + + + + +---------+ + + | (unknown) | (no date) | (unknown) | [facility] | (no | (units | (unknown) | | | | [facility] | value) | unknown) | | | | [facility] | | | | + + + + +---------+ + + + + | Result panel 310 | + + + + + + +---------+ + + | (unknown) | (no date) | (unknown) | [facility] | (no | (units | (unknown) | | | | [facility] | value) | unknown) | | | | [facility] | | | | + + + + +---------+ + + + + | Result panel 311 | + + + + + + +---------+ + + | (unknown) | (no date) | (unknown) | [facility] | (no | (units | (unknown) | | | | [facility] | value) | unknown) | [facility] | | | | + + + + +---------+ + + + + | Result panel 312 | + + + + + + +---------+ + + | (unknown) | (no date) | (unknown) | [facility] | (no | (units | (unknown) | | | [facility] value) | unknown) | | | [facility] | | | | + + + + +---------+ + + Social History No information. Vital Signs + + + +---------+ | date | measurement | value | units | + + + +---------+ | 2022-01-17 00:00 | BMI | 32.3 | kg/m2 | + + + +---------+ | 2022-01-17 00:00 | BP_diastolic | 72 | mmHg | + + + +---------+ | 2022-01-17 00:00 | BP_systolic | 104 | mmHg | + + + +---------+ | 2022-01-17 00:00 | heart_rate | 69 | /min | + + + +---------+ | 2022-01-17 00:00 | height_metric | 177.8 | cm | + + + +---------+ | 2022-01-17 00:00 | height_standard | 70 | in | + + + +---------+ | 2022-01-17 00:00 | o2_saturation | 95 | % | + + + +---------+ | 2022-01-17 00:00 | respiration_rate | 20 | /min | + + + +---------+ | 2022-01-17 00:00 | temperature_metric | 37.11 | C | | | | | | + + + +---------+ | 2022-01-17 00:00 | | 98.8 | F | | | temperature_standar | | | | | d | | | + + + +---------+ | 2022-01-17 00:00 | weight_metric | 102.06 | kg | + + + +---------+ | 2022-01-17 00:00 | weight_standard | 225 | lb | + + + +---------+ | 2022-01-18 00:00 | BMI | 32.5 | kg/m2 | + + + +---------+ | 2022-01-18 00:00 | BP_diastolic | 57 | mmHg | + + + +---------+ | 2022-01-18 00:00 | BP_systolic | 116 | mmHg | + + + +---------+ | 2022-01-18 00:00 | heart_rate | 60 | /min | + + + +---------+ | 2022-01-18 00:00 | height_metric | 177.8 | cm | + + + +---------+ | 2022-01-18 00:00 | height_standard | 70 | in | + + + +---------+ | 2022-01-18 00:00 | o2_saturation | 99 | % | + + + +---------+ | 2022-01-18 00:00 | respiration_rate | 14 | /min | + + + +---------+ | 2022-01-18 00:00 | temperature_metric | 36.72 | C | | | | | | + + + +---------+ | 2022-01-18 00:00 | | 98.1 | F | | | temperature_standar | | | | | d | | | + + + +---------+ | 2022-01-18 00:00 | weight_metric | 102.7 | kg | + + + +---------+ | 2022-01-18 00:00 | weight_standard | 226.41 | lb | + + + +---------+ | 2022-03-02 00:00 | BMI | 32.4 | kg/m2 | + + + +---------+ | 2022-03-02 00:00 | BP_diastolic | 63 | mmHg | + + + +---------+ | 2022-03-02 00:00 | BP_systolic | 103 | mmHg | + + + +---------+ | 2022-03-02 00:00 | heart_rate | 60 | /min | + + + +---------+ | 2022-03-02 00:00 | height_metric | 177.8 | cm | + + + +---------+ | 2022-03-02 00:00 | height_standard | 70 | in | + + + +---------+ | 2022-03-02 00:00 | o2_saturation | 96 | % | + + + +---------+ | 2022-03-02 00:00 | respiration_rate | 17 | /min | + + + +---------+ | 2022-03-02 00:00 | temperature_metric | 36.94 | C | | | | | | + + + +---------+ | 2022-03-02 00:00 | | 98.5 | F | | | temperature_standar | | | | | d | | | + + + +---------+ | 2022-03-02 00:00 | weight_metric | 102.51 | kg | + + + +---------+ | 2022-03-02 00:00 | weight_standard | 226 | lb | + + + +---------+ | 2022-03-04 00:00 | BMI | 32.4 | kg/m2 | + + + +---------+ | 2022-03-04 00:00 | BP_diastolic | 66 | mmHg | + + + +---------+ | 2022-03-04 00:00 | BP_diastolic | 74 | mmHg | + + + +---------+ | 2022-03-04 00:00 | BP_systolic | 106 | mmHg | + + + +---------+ | 2022-03-04 00:00 | BP_systolic | 127 | mmHg | + + + +---------+ | 2022-03-04 00:00 | heart_rate | 60 | /min | + + + +---------+ | 2022-03-04 00:00 | heart_rate | 63 | /min | + + + +---------+ | 2022-03-04 00:00 | height_metric | 177.8 | cm | + + + +---------+ | 2022-03-04 00:00 | height_standard | 70 | in | + + + +---------+ | 2022-03-04 00:00 | o2_saturation | 94 | % | + + + +---------+ | 2022-03-04 00:00 | o2_saturation | 98 | % | + + + +---------+ | 2022-03-04 00:00 | respiration_rate | 18 | /min | + + + +---------+ | 2022-03-04 00:00 | respiration_rate | 19 | /min | + + + +---------+ | 2022-03-04 00:00 | temperature_metric | 36.89 | C | | | | | | + + + +---------+ | 2022-03-04 00:00 | temperature_metric | 36.94 | C | | | | | | + + + +---------+ | 2022-03-04 00:00 | | 98.4 | F | | | temperature_standar | | | | | d | | | + + + +---------+ | 2022-03-04 00:00 | | 98.5 | F | | | temperature_standar | | | | | d | | | + + + +---------+ | 2022-03-04 00:00 | weight_metric | 102.51 | kg | + + + +---------+ | 2022-03-04 00:00 | weight_standard | 226 | lb | + + + +---------+ | 2022-03-16 00:00 | BMI | 31.9 | kg/m2 | + + + +---------+ | 2022-03-16 00:00 | BP_diastolic | 67 | mmHg | + + + +---------+ | 2022-03-16 00:00 | BP_systolic | 129 | mmHg | + + + +---------+ | 2022-03-16 00:00 | heart_rate | 61 | /min | + + + +---------+ | 2022-03-16 00:00 | height_metric | 177.8 | cm | + + + +---------+ | 2022-03-16 00:00 | height_standard | 70 | in | + + + +---------+ | 2022-03-16 00:00 | o2_saturation | 99 | % | + + + +---------+ | 2022-03-16 00:00 | respiration_rate | 16 | /min | + + + +---------+ | 2022-03-16 00:00 | temperature_metric | 36.83 | C | | | | | | + + + +---------+ | 2022-03-16 00:00 | | 98.3 | F | | | temperature_standar | | | | | d | | | + + + +---------+ | 2022-03-16 00:00 | weight_metric | 101 | kg | + + + +---------+ | 2022-03-16 00:00 | weight_standard | 222.67 | lb | + + + +---------+ | 2022-03-17 00:00 | BMI | 31.9 | kg/m2 | + + + +---------+ | 2022-03-17 00:00 | BP_diastolic | 50 | mmHg | + + + +---------+ | 2022-03-17 00:00 | BP_systolic | 110 | mmHg | + + + +---------+ | 2022-03-17 00:00 | heart_rate | 61 | /min | + + + +---------+ | 2022-03-17 00:00 | height_metric | 177.8 | cm | + + + +---------+ | 2022-03-17 00:00 | height_standard | 70 | in | + + + +---------+ | 2022-03-17 00:00 | o2_saturation | 98 | % | + + + +---------+ | 2022-03-17 00:00 | respiration_rate | 18 | /min | + + + +---------+ | 2022-03-17 00:00 | temperature_metric | 36.89 | C | | | | | | + + + +---------+ | 2022-03-17 00:00 | | 98.4 | F | | | temperature_standar | | | | | d | | | + + + +---------+ | 2022-03-17 00:00 | weight_metric | 100.98 | kg | + + + +---------+ | 2022-03-17 00:00 | weight_standard | 222.62 | lb | + + + +---------+ | 2022-03-17 00:00 | weight_standard | 222.63 | lb | + + + +---------+ | 2022-04-03 00:00 | BMI | 31.9 | kg/m2 | + + + +---------+ | 2022-04-03 00:00 | BP_diastolic | 69 | mmHg | + + + +---------+ | 2022-04-03 00:00 | BP_systolic | 125 | mmHg | + + + +---------+ | 2022-04-03 00:00 | heart_rate | 63 | /min | + + + +---------+ | 2022-04-03 00:00 | height_metric | 177.8 | cm | + + + +---------+ | 2022-04-03 00:00 | height_standard | 70 | in | + + + +---------+ | 2022-04-03 00:00 | o2_saturation | 96 | % | + + + +---------+ | 2022-04-03 00:00 | respiration_rate | 16 | /min | + + + +---------+ | 2022-04-03 00:00 | temperature_metric | 36.44 | C | | | | | | + + + +---------+ | 2022-04-03 00:00 | | 97.6 | F | | | temperature_standar | | | | | d | | | + + + +---------+ | 2022-04-03 00:00 | weight_metric | 100.98 | kg | + + + +---------+ | 2022-04-03 00:00 | weight_standard | 222.62 | lb | + + + +---------+ | 2022-04-03 00:00 | weight_standard | 222.63 | lb | + + + +---------+ | 2022-05-07 00:00 | BMI | 31.0 | kg/m2 | + + + +---------+ | 2022-05-07 00:00 | BP_diastolic | 60 | mmHg | + + + +---------+ | 2022-05-07 00:00 | BP_systolic | 118 | mmHg | + + + +---------+ | 2022-05-07 00:00 | heart_rate | 89 | /min | + + + +---------+ | 2022-05-07 00:00 | height_metric | 177.8 | cm | + + + +---------+ | 2022-05-07 00:00 | height_standard | 70 | in | + + + +---------+ | 2022-05-07 00:00 | o2_saturation | 98 | % | + + + +---------+ | 2022-05-07 00:00 | respiration_rate | 16 | /min | + + + +---------+ | 2022-05-07 00:00 | temperature_metric | 36.72 | C | | | | | | + + + +---------+ | 2022-05-07 00:00 | | 98.1 | F | | | temperature_standar | | | | | d | | | + + + +---------+ | 2022-05-07 00:00 | weight_metric | 98.1 | kg | + + + +---------+ | 2022-05-07 00:00 | weight_standard | 216.27 | lb | + + + +---------+ | 2022-05-07 00:00 | weight_standard | 216.28 | lb | + + + +---------+ | 2022-06-07 00:00 | BMI | 31.0 | kg/m2 | + + + +---------+ | 2022-06-07 00:00 | BP_diastolic | 73 | mmHg | + + + +---------+ | 2022-06-07 00:00 | BP_systolic | 126 | mmHg | + + + +---------+ | 2022-06-07 00:00 | heart_rate | 72 | /min | + + + +---------+ | 2022-06-07 00:00 | height_metric | 177.8 | cm | + + + +---------+ | 2022-06-07 00:00 | height_standard | 70 | in | + + + +---------+ | 2022-06-07 00:00 | o2_saturation | 98 | % | + + + +---------+ | 2022-06-07 00:00 | respiration_rate | 16 | /min | + + + +---------+ | 2022-06-07 00:00 | temperature_metric | 36.72 | C | | | | | | + + + +---------+ | 2022-06-07 00:00 | | 98.1 | F | | | temperature_standar | | | | | d | | | + + + +---------+ | 2022-06-07 00:00 | weight_metric | 98.09 | kg | + + + +---------+ | 2022-06-07 00:00 | weight_standard | 216.25 | lb | + + + +---------+ | 2022-08-18 00:00 | BMI | 31.0 | kg/m2 | + + + +---------+ | 2022-08-18 00:00 | BP_diastolic | 62 | mmHg | + + + +---------+ | 2022-08-18 00:00 | BP_systolic | 110 | mmHg | + + + +---------+ | 2022-08-18 00:00 | heart_rate | 63 | /min | + + + +---------+ | 2022-08-18 00:00 | height_metric | 177.8 | cm | + + + +---------+ | 2022-08-18 00:00 | height_standard | 70 | in | + + + +---------+ | 2022-08-18 00:00 | o2_saturation | 98 | % | + + + +---------+ | 2022-08-18 00:00 | respiration_rate | 12 | /min | + + + +---------+ | 2022-08-18 00:00 | temperature_metric | 36.94 | C | | | | | | + + + +---------+ | 2022-08-18 00:00 | | 98.5 | F | | | temperature_standar | | | | | d | | | + + + +---------+ | 2022-08-18 00:00 | weight_metric | 98.09 | kg | + + + +---------+ | 2022-08-18 00:00 | weight_standard | 216.25 | lb | + + + +---------+ | 2022-12-29 00:00 | BMI | 31.3 | kg/m2 | + + + +---------+ | 2022-12-29 00:00 | BP_diastolic | 85 | mmHg | + + + +---------+ | 2022-12-29 00:00 | BP_systolic | 120 | mmHg | + + + +---------+ | 2022-12-29 00:00 | heart_rate | 68 | /min | + + + +---------+ | 2022-12-29 00:00 | height_metric | 177.8 | cm | + + + +---------+ | 2022-12-29 00:00 | height_standard | 70 | in | + + + +---------+ | 2022-12-29 00:00 | o2_saturation | 100 | % | + + + +---------+ | 2022-12-29 00:00 | respiration_rate | 18 | /min | + + + +---------+ | 2022-12-29 00:00 | temperature_metric | 37.06 | C | | | | | | + + + +---------+ | 2022-12-29 00:00 | | 98.7 | F | | | temperature_standar | | | | | d | | | + + + +---------+ | 2022-12-29 00:00 | weight_metric | 99 | kg | + + + +---------+ | 2022-12-29 00:00 | weight_standard | 218.25 | lb | + + + +---------+ | 2022-12-29 00:00 | weight_standard | 218.26 | lb | + + + +---------+ | 2022-12-30 00:00 | BMI | 31.3 | kg/m2 | + + + +---------+ | 2022-12-30 00:00 | BP_diastolic | 68 | mmHg | + + + +---------+ | 2022-12-30 00:00 | BP_systolic | 112 | mmHg | + + + +---------+ | 2022-12-30 00:00 | heart_rate | 65 | /min | + + + +---------+ | 2022-12-30 00:00 | height_metric | 177.8 | cm | + + + +---------+ | 2022-12-30 00:00 | height_standard | 70 | in | + + + +---------+ | 2022-12-30 00:00 | o2_saturation | 97 | % | + + + +---------+ | 2022-12-30 00:00 | respiration_rate | 16 | /min | + + + +---------+ | 2022-12-30 00:00 | temperature_metric | 36.78 | C | | | | | | + + + +---------+ | 2022-12-30 00:00 | | 98.2 | F | | | temperature_standar | | | | | d | | | + + + +---------+ | 2022-12-30 00:00 | weight_metric | 99 | kg | + + + +---------+ | 2022-12-30 00:00 | weight_standard | 218.25 | lb | + + + +---------+ | 2022-12-30 00:00 | weight_standard | 218.26 | lb | + + + +---------+"
--- OUTSIDE RECORDS SUMMARY | ~2023-02-22 | XMS | Continuity of Care Document ---
Demographics + + + | Address | [address] | | | [place] [address] | + + + | Preferred Language | Unknown | + + + | Marital Status | | + + + | Sikh Affiliation | Unknown | + + + | Race | White | + + + | Ethnic Group | Not or | + + + Author + + + | Author | [facility] | + + + | Organization | [facility] | + + + | Address | [address] | | | [place] [address] | + + + | Phone | | + + + Care Team Providers + + + + | Care Electronics Tester Name | Role | Phone | + + + + Unavailable | Unavailable | + + + + Unavailable | Unavailable | + + + + Allergies and Intolerances + + + + + | date | description | facility | type | + + + + + | (no date) | Valsartan | [facility] (unknown[facility] | | + + + + + | (no date) | Codeine | [facility] | (unknown) [facility] | [facility] | | + + + + + | (no date) | codeine | [facility] | (unknown) | | | | [facility] | | + + + + + | (no date) | Rash | [facility] | (unknown) | [facility] | | + + + + + | (no date) | Penicillin g | [facility] | (unknown) | | | [facility] Hospital | | + + + + + | (no date) | Digoxin | [facility] | (unknown) | | | [facility] Hospital | | + + + + + | (no date) | digoxin | [facility] | (unknown) | | | [facility] | | + + + + + | (no date) | Meperidine | [facility] | (unknown) | | | [facility] | | + + + + + | (no date) | Nitroglycerin | [facility] | (unknown) | | | [facility] Hospital | | + + + + + | (no date) | Digoxin | [facility] (unknown) | | [facility] | | + + + + + | (no date) | Codeine | [facility] | (unknown) | | | [facility] | | + + + + + | (no date) | Oxycodone | [facility] | (unknown) | | | | Hospital | | + + + + + | (no date) | Nitroglycerin | [facility] | (unknown) | | | [facility] | | + + + + + | (no date) | nitroglycerin | [facility] | (unknown) | | | [facility] Hospital | | + + + + + | (no date) | Meperidine | [facility] | (unknown) | | | [facility] Hospital | | + + + + + | (no date) | meperidine | [facility] | (unknown) | | | [facility] Hospital | | + + + + + | (no date) | Valsartan | [facility] | (unknown) | | | [facility] | | + + + + + | (no date) | valsartan | [facility] | (unknown) | | | [facility] | | + + + + + | (no date) | Digoxin | [facility] | (unknown) | | [facility] | | + + + + + | (no date) | Oxycodone | [facility] | (unknown) | | | [facility] | | + + + + + | (no date) | oxycodone | [facility] | (unknown) | | | [facility] | | + + + + + | (no date) | Penicillin g | [facility] | (unknown) | | [facility] | | + + + + + | (no date) | penicillin G | [facility] | (unknown) | | | [facility] | | + + + + + | (no date) | Valsartan | [facility] | (unknown) | | | [facility] | | + + + + + | (no date) | Meperidine | [facility] | (unknown) | | | [facility] | | + + + + + | (no date) | Oxycodone | [facility] | (unknown) | | | [facility] Hospital | | + + + + + | (no date) | Nitroglycerin | [facility] | (unknown) | | | | Hospital | | + + + + + | (no date) | Penicillin g | [facility] | (unknown) | | | | [facility] | | + + + + + | (no date) | Codeine | [facility] | (unknown) | | | | Hospital | | + + + + + Encounters No information. Functional Status No information. Immunizations No information. Medications + + + + | date | description | facility | + + + + | 2022-12-30 00:00 | [facility] | + + + + | 2022-03-04 00:00 | LISINOPRIL | [facility] | + + + + | 2022-03-05 00:00 | LISINOPRIL | [facility] | + + + + | 2022-03-16 00:00 | LISINOPRIL | [facility] | + + + + | 2022-03-17 00:00 | LISINOPRIL | [facility] | + + + + | 2022-04-10 00:00 | LISINOPRIL | [facility] | + + + + | 2022-05-07 00:00 | LISINOPRIL | [facility] | + + + + | 2022-06-07 00:00 | LISINOPRIL | [facility] | + + + + | 2022-08-19 00:00 | LISINOPRIL | [facility] | + + + + | 2022-12-29 00:00 | LISINOPRIL | [facility] | + + + + | 2022-12-30 00:00 | LISINOPRIL | [facility] | + + + + | 2020-02-19 00:00 | ONDANSETRON HCL | [facility] | + + + + | 2022-03-04 00:00 | FLUTICASONE PROPIONATE | [facility] | + + + + | 2022-03-05 00:00 | FLUTICASONE PROPIONATE | [facility] | + + + + | 2022-03-16 00:00 | FLUTICASONE PROPIONATE | [facility] | + + + + | 2022-03-17 00:00 | FLUTICASONE PROPIONATE | [facility] | + + + + | 2022-04-10 00:00 | FLUTICASONE PROPIONATE | [facility] | + + + + | 2022-05-07 00:00 | FLUTICASONE PROPIONATE | [facility] | + + + + | 2022-06-07 00:00 | FLUTICASONE PROPIONATE | [facility] | + + + + | 2022-08-19 00:00 | FLUTICASONE PROPIONATE | [facility] | + + + + | 2022-12-29 00:00 | FLUTICASONE PROPIONATE | [facility] | + + + + | 2022-12-30 00:00 | FLUTICASONE PROPIONATE | [facility] | + + + + | 2022-03-02 00:00 | CEPHALEXIN | [facility] | + + + + | 2022-03-04 00:00 | OMEPRAZOLE | [facility] | + + + + | 2022-03-05 00:00 | OMEPRAZOLE | [facility] | + + + + | 2022-03-16 00:00 | OMEPRAZOLE | [facility] | + + + + | 2022-03-17 00:00 | OMEPRAZOLE | [facility] | + + + + | 2022-04-10 00:00 | OMEPRAZOLE | [facility] | + + + + | 2022-05-07 00:00 | OMEPRAZOLE | [facility] | + + + + | 2022-06-07 00:00 | OMEPRAZOLE | [facility] | + + + + | 2022-08-19 00:00 | OMEPRAZOLE | [facility] | + + + + | 2022-12-29 00:00 | OMEPRAZOLE | [facility] | + + + + | 2022-12-30 00:00 | OMEPRAZOLE | [facility] | + + + + | 2022-03-04 00:00 | FUROSEMIDE | [facility] | + + + + | 2022-03-05 00:00 | FUROSEMIDE | [facility] | + + + + | 2022-03-16 00:00 | FUROSEMIDE | [facility] | + + + + | 2022-03-17 00:00 | FUROSEMIDE | [facility] | + + + + | 2022-04-10 00:00 | FUROSEMIDE | [facility] | + + + + | 2022-05-07 00:00 | FUROSEMIDE | [facility] | + + + + | 2022-06-07 00:00 | FUROSEMIDE | [facility] | + + + + | 2022-08-19 00:00 | FUROSEMIDE | [facility] | + + + + | 2022-12-29 00:00 | FUROSEMIDE | [facility] | + + + + | 2022-12-30 00:00 | FUROSEMIDE | [facility] | + + + + | 2022-03-04 00:00 | SPIRONOLACTONE | [facility] | + + + + | 2022-03-05 00:00 | SPIRONOLACTONE | [facility] | + + + + | 2022-03-16 00:00 | SPIRONOLACTONE | [facility] | + + + + | 2022-03-17 00:00 | SPIRONOLACTONE | [facility] | + + + + | 2022-04-10 00:00 | SPIRONOLACTONE | [facility] | + + + + | 2022-05-07 00:00 | SPIRONOLACTONE | [facility] | + + + + | 2022-06-07 00:00 | SPIRONOLACTONE | [facility] | + + + + | 2022-08-19 00:00 | SPIRONOLACTONE | [facility] | + + + + | 2022-12-29 00:00 | SPIRONOLACTONE | [facility] | + + + + | 2022-12-30 00:00 | SPIRONOLACTONE | [facility] | + + + + | 2022-03-04 00:00 | LEVOFLOXACIN | [facility] | + + + + | 2022-03-05 00:00 | LEVOFLOXACIN | [facility] | + + + + | 2022-03-16 00:00 | LEVOFLOXACIN | [facility] | + + + + | 2022-03-17 00:00 | LEVOFLOXACIN | [facility] | + + + + | 2022-04-10 00:00 | LEVOFLOXACIN | [facility] | + + + + | 2022-05-07 00:00 | LEVOFLOXACIN | [facility] | + + + + | 2022-06-07 00:00 | LEVOFLOXACIN | [facility] | + + + + | 2022-08-19 00:00 | LEVOFLOXACIN | [facility] | + + + + | 2022-12-29 00:00 | LEVOFLOXACIN | [facility] | + + + + | 2022-12-30 00:00 | LEVOFLOXACIN | [facility] | + + + + | 2018-04-16 00:00 | CLOPIDOGREL BISULFATE | [facility] | + + + + | 2015-08-26 00:00 | AZITHROMYCIN | [facility] | + + + + | 2022-03-04 00:00 | DIGOXIN | [facility] | + + + + | 2022-03-05 00:00 | DIGOXIN | [facility] | + + + + | 2022-03-16 00:00 | DIGOXIN | [facility] | + + + + | 2022-03-17 00:00 | DIGOXIN | [facility] | + + + + | 2022-04-10 00:00 | DIGOXIN | [facility] | + + + + | 2022-05-07 00:00 | DIGOXIN | [facility] | + + + + | 2022-06-07 00:00 | DIGOXIN | [facility] | + + + + | 2022-08-19 00:00 | DIGOXIN | [facility] | + + + + | 2022-12-29 00:00 | DIGOXIN | [facility] | + + + + | 2022-12-30 00:00 | DIGOXIN | [facility] | + + + + | 2015-05-19 00:00 | CLINDAMYCIN HCL | [facility] | + + + + | 2022-03-04 00:00 | CLOPIDOGREL BISULFATE | [facility] | + + + + | 2022-03-05 00:00 | CLOPIDOGREL BISULFATE | [facility] | + + + + | 2022-03-16 00:00 | CLOPIDOGREL BISULFATE | [facility] | + + + + | 2022-03-17 00:00 | CLOPIDOGREL BISULFATE | [facility] | + + + + | 2022-04-10 00:00 | CLOPIDOGREL BISULFATE | [facility] | + + + + | 2022-05-07 00:00 | CLOPIDOGREL BISULFATE | [facility] | + + + + | 2022-06-07 00:00 | CLOPIDOGREL BISULFATE | [facility] | + + + + | 2022-08-19 00:00 | CLOPIDOGREL BISULFATE | [facility] | + + + + | 2022-12-29 00:00 | CLOPIDOGREL BISULFATE | [facility] | + + + + | 2022-12-30 00:00 | CLOPIDOGREL BISULFATE | [facility] | + + + + | 2022-03-04 00:00 | LISINOPRIL | [facility] | + + + + | 2022-03-05 00:00 | LISINOPRIL | [facility] | + + + + | 2022-03-16 00:00 | LISINOPRIL | [facility] | + + + + | 2022-03-17 00:00 | LISINOPRIL | [facility] | + + + + | 2022-04-10 00:00 | LISINOPRIL | [facility] | + + + + | 2022-05-07 00:00 | LISINOPRIL | [facility] | + + + + | 2022-06-07 00:00 | LISINOPRIL | [facility] | + + + + | 2022-08-19 00:00 | LISINOPRIL | [facility] | + + + + | 2022-12-29 00:00 | LISINOPRIL | [facility] | + + + + | 2022-12-30 00:00 | LISINOPRIL | [facility] | + + + + | 2022-03-04 00:00 | LORATADINE | [facility] | + + + + | 2022-03-05 00:00 | LORATADINE | [facility] | + + + + | 2022-03-16 00:00 | LORATADINE | [facility] | + + + + | 2022-03-17 00:00 | LORATADINE | [facility] | + + + + | 2022-04-10 00:00 | LORATADINE | [facility] | + + + + | 2022-05-07 00:00 | LORATADINE | [facility] | + + + + | 2022-06-07 00:00 | LORATADINE | [facility] | + + + + | 2022-08-19 00:00 | LORATADINE | [facility] | + + + + | 2022-12-29 00:00 | LORATADINE | [facility] | + + + + | 2022-03-16 00:00 | ONDANSETRON | [facility] | + + + + | 2013-01-10 00:00 | predniSONE | [facility] | + + + + | 2022-12-30 00:00 | predniSONE | [facility] | + + + + | 2022-03-04 00:00 | LISINOPRIL | [facility] | + + + + | 2022-03-05 00:00 | LISINOPRIL | [facility] | + + + + | 2022-03-16 00:00 | LISINOPRIL | [facility] | + + + + | 2022-03-17 00:00 | LISINOPRIL | [facility] | + + + + | 2022-04-10 00:00 | LISINOPRIL | [facility] | + + + + | 2022-05-07 00:00 | LISINOPRIL | [facility] | + + + + | 2022-06-07 00:00 | LISINOPRIL | [facility] | + + + + | 2022-08-19 00:00 | LISINOPRIL | [facility] | + + + + | 2022-12-29 00:00 | LISINOPRIL | [facility] | + + + + | 2022-12-30 00:00 | LISINOPRIL | [facility] | + + + + | 2022-06-07 00:00 | LACTULOSE | [facility] | + + + + | 2022-03-04 00:00 | TIOTROPIUM BROMIDE | [facility] | + + + + | 2022-03-05 00:00 | TIOTROPIUM BROMIDE | [facility] | + + + + | 2022-03-16 00:00 | TIOTROPIUM BROMIDE | [facility] | + + + + | 2022-03-17 00:00 | TIOTROPIUM BROMIDE | [facility] | + + + + | 2022-04-10 00:00 | TIOTROPIUM BROMIDE | [facility] | + + + + | 2022-05-07 00:00 | TIOTROPIUM BROMIDE | [facility] | + + + + | 2022-06-07 00:00 | TIOTROPIUM BROMIDE | [facility] | + + + + | 2022-08-19 00:00 | TIOTROPIUM BROMIDE | [facility] | + + + + | 2022-12-29 00:00 | TIOTROPIUM BROMIDE | [facility] | + + + + | 2022-12-30 00:00 | TIOTROPIUM BROMIDE | [facility] | + + + + | 2022-03-04 00:00 | ATORVASTATIN CALCIUM | [facility] | + + + + | 2022-03-05 00:00 | ATORVASTATIN CALCIUM | [facility] | + + + + | 2022-03-16 00:00 | ATORVASTATIN CALCIUM | [facility] | + + + + | 2022-03-17 00:00 | ATORVASTATIN CALCIUM | [facility] | + + + + | 2022-04-10 00:00 | ATORVASTATIN CALCIUM | [facility] | + + + + | 2022-05-07 00:00 | ATORVASTATIN CALCIUM | [facility] | + + + + | 2022-06-07 00:00 | ATORVASTATIN CALCIUM | [facility] | + + + + | 2022-08-19 00:00 | ATORVASTATIN CALCIUM | [facility] | + + + + | 2022-12-29 00:00 | ATORVASTATIN CALCIUM | [facility] | + + + + | 2022-12-30 00:00 | ATORVASTATIN CALCIUM | [facility] | + + + + | 2018-04-16 00:00 | ATORVASTATIN | [facility] | + + + + | 2022-03-04 00:00 | ALBUTEROL SULFATE MDI | [facility] | | | (HFA) | | + + + + | 2022-03-05 00:00 | ALBUTEROL SULFATE MDI | [facility] | | | (HFA) | | + + + + | 2022-03-16 00:00 | ALBUTEROL SULFATE MDI | [facility] | | | (HFA) | | + + + + | 2022-03-17 00:00 | ALBUTEROL SULFATE MDI | [facility] | | | (HFA) | | + + + + | 2022-04-10 00:00 | ALBUTEROL SULFATE MDI | [facility] | | | (HFA) | | + + + + | 2022-05-07 00:00 | ALBUTEROL SULFATE MDI | [facility] | | | (HFA) | | + + + + | 2022-06-07 00:00 | ALBUTEROL SULFATE MDI | [facility] | | | (HFA) | | + + + + | 2022-08-19 00:00 | ALBUTEROL SULFATE MDI | [facility] | | | (HFA) | | + + + + | 2022-12-29 00:00 | ALBUTEROL SULFATE MDI | [facility] | | | (HFA) | | + + + + | 2022-12-30 00:00 | ALBUTEROL SULFATE MDI | [facility] | | | (HFA) | | + + + + | 2015-08-25 00:00 | CYCLOBENZAPRINE HCL | [facility] | + + + + | 2022-12-30 00:00 | CYCLOBENZAPRINE HCL | [facility] | + + + + | 2019-07-27 00:00 | AMIODARONE HCL | [facility] | + + + + | 2022-03-04 00:00 | AMIODARONE HCL | [facility] | + + + + | 2022-03-05 00:00 | AMIODARONE HCL | [facility] | + + + + | 2022-03-16 00:00 | AMIODARONE HCL | [facility] | + + + + | 2022-03-17 00:00 | AMIODARONE HCL | [facility] | + + + + | 2022-04-10 00:00 | AMIODARONE HCL | [facility] | + + + + | 2022-05-07 00:00 | AMIODARONE HCL | [facility] | + + + + | 2022-06-07 00:00 | AMIODARONE HCL | [facility] | + + + + | 2022-08-19 00:00 | AMIODARONE HCL | [facility] | + + + + | 2022-12-29 00:00 | AMIODARONE HCL | [facility] | + + + + | 2022-12-30 00:00 | AMIODARONE HCL | [facility] | + + + + | 2022-03-04 00:00 | AMIODARONE HCL | [facility] | + + + + | 2022-03-05 00:00 | AMIODARONE HCL | [facility] | + + + + | 2022-03-16 00:00 | AMIODARONE HCL | [facility] | + + + + | 2022-03-17 00:00 | AMIODARONE HCL | [facility] | + + + + | 2022-04-10 00:00 | AMIODARONE HCL | [facility] | + + + + | 2022-05-07 00:00 | AMIODARONE HCL | [facility] | + + + + | 2022-06-07 00:00 | AMIODARONE HCL | [facility] | + + + + | 2022-08-19 00:00 | AMIODARONE HCL | [facility] | + + + + | 2022-12-29 00:00 | AMIODARONE HCL | [facility] | + + + + | 2022-12-30 00:00 | AMIODARONE HCL | [facility] | + + + + | 2022-03-04 00:00 | BISOPROLOL FUMARATE | [facility] | + + + + | 2022-03-05 00:00 | BISOPROLOL FUMARATE | [facility] | + + + + | 2022-03-16 00:00 | BISOPROLOL FUMARATE | [facility] | + + + + | 2022-03-17 00:00 | BISOPROLOL FUMARATE | [facility] | + + + + | 2022-04-10 00:00 | BISOPROLOL FUMARATE | [facility] | + + + + | 2022-05-07 00:00 | BISOPROLOL FUMARATE | [facility] | + + + + | 2022-06-07 00:00 | BISOPROLOL FUMARATE | [facility] | + + + + | 2022-08-19 00:00 | BISOPROLOL FUMARATE | [facility] | + + + + | 2022-12-29 00:00 | BISOPROLOL FUMARATE | [facility] | + + + + | 2022-12-30 00:00 | BISOPROLOL FUMARATE | [facility] | + + + + | 2022-05-07 00:00 | HYDROCODONE | [facility] | | | BIT/ACETAMINOPHEN | | + + + + | 2013-01-10 00:00 | HYDROCODONE | [facility] | | | BIT/ACETAMINOPHEN | | + + + + | 2015-08-25 00:00 | HYDROCODONE | [facility] | | | BIT/ACETAMINOPHEN | | + + + + | 2022-03-04 00:00 | CHOLECALCIFEROL (VITAMIN | [facility] | | | D3) | | + + + + | 2022-03-05 00:00 | CHOLECALCIFEROL (VITAMIN | [facility] | | | D3) | | + + + + | 2022-03-16 00:00 | CHOLECALCIFEROL (VITAMIN | [facility] | | | D3) | | + + + + | 2022-03-17 00:00 | CHOLECALCIFEROL (VITAMIN | [facility] | | | D3) | | + + + + | 2022-04-10 00:00 | CHOLECALCIFEROL (VITAMIN | [facility] | | | D3) | | + + + + | 2022-05-07 00:00 | CHOLECALCIFEROL (VITAMIN | [facility] | | | D3) | | + + + + | 2022-06-07 00:00 | CHOLECALCIFEROL (VITAMIN | [facility] | | | D3) | | + + + + | 2022-08-19 00:00 | CHOLECALCIFEROL (VITAMIN | [facility] | | | D3) | | + + + + | 2022-12-29 00:00 | CHOLECALCIFEROL (VITAMIN | [facility] | | | D3) | | + + + + | 2022-12-30 00:00 | CHOLECALCIFEROL (VITAMIN | [facility] | | | D3) | | + + + + | 2022-03-04 00:00 | METFORMIN HCL | [facility] | + + + + | 2022-03-05 00:00 | METFORMIN HCL | [facility] | + + + + | 2022-03-16 00:00 | METFORMIN HCL | [facility] | + + + + | 2022-03-17 00:00 | METFORMIN HCL | [facility] | + + + + | 2022-04-10 00:00 | METFORMIN HCL | [facility] | + + + + | 2022-05-07 00:00 | METFORMIN HCL | [facility] | + + + + | 2022-06-07 00:00 | METFORMIN HCL | [facility] | + + + + | 2022-08-19 00:00 | METFORMIN HCL | [facility] | + + + + | 2022-12-29 00:00 | METFORMIN HCL | [facility] | + + + + | 2022-12-30 00:00 | METFORMIN HCL | [facility] | + + + + | 2022-03-04 00:00 | metFORMIN HCL | [facility] | + + + + | 2022-03-05 00:00 | metFORMIN HCL | [facility] | + + + + | 2022-03-16 00:00 | metFORMIN HCL | [facility] | + + + + | 2022-03-17 00:00 | metFORMIN HCL | [facility] | + + + + | 2022-04-10 00:00 | metFORMIN HCL | [facility] | + + + + | 2022-05-07 00:00 | metFORMIN HCL | [facility] | + + + + | 2022-06-07 00:00 | metFORMIN HCL | [facility] | + + + + | 2022-08-19 00:00 | metFORMIN HCL | [facility] | + + + + | 2022-12-29 00:00 | metFORMIN HCL | [facility] | + + + + | 2022-12-30 00:00 | metFORMIN HCL | [facility] | + + + + | 2022-03-04 00:00 | METOPROLOL SUCCINATE | [facility] | + + + + | 2022-03-05 00:00 | METOPROLOL SUCCINATE | [facility] | + + + + | 2022-03-16 00:00 | METOPROLOL SUCCINATE | [facility] | + + + + | 2022-03-17 00:00 | METOPROLOL SUCCINATE | [facility] | + + + + | 2022-04-10 00:00 | METOPROLOL SUCCINATE | [facility] | + + + + | 2022-05-07 00:00 | METOPROLOL SUCCINATE | [facility] | + + + + | 2022-06-07 00:00 | METOPROLOL SUCCINATE | [facility] | + + + + | 2022-08-19 00:00 | METOPROLOL SUCCINATE | [facility] | + + + + | 2022-12-29 00:00 | METOPROLOL SUCCINATE | [facility] | + + + + | 2022-12-30 00:00 | METOPROLOL SUCCINATE | [facility] | + + + + | 2019-07-27 00:00 | METOPROLOL TARTRATE | [facility] | + + + + | 2022-03-04 00:00 | LEVOTHYROXINE SODIUM | [facility] | + + + + | 2022-03-05 00:00 | LEVOTHYROXINE SODIUM | [facility] | + + + + | 2022-03-16 00:00 | LEVOTHYROXINE SODIUM | [facility] | + + + + | 2022-03-17 00:00 | LEVOTHYROXINE SODIUM | [facility] | + + + + | 2022-04-10 00:00 | LEVOTHYROXINE SODIUM | [facility] | + + + + | 2022-05-07 00:00 | LEVOTHYROXINE SODIUM | [facility] | + + + + | 2022-06-07 00:00 | LEVOTHYROXINE SODIUM | [facility] | + + + + | 2022-08-19 00:00 | LEVOTHYROXINE SODIUM | [facility] | + + + + | 2022-12-29 00:00 | LEVOTHYROXINE SODIUM | [facility] | + + + + | 2022-12-30 00:00 | LEVOTHYROXINE SODIUM | [facility] | + + + + | 2022-03-04 00:00 | FLUTICASONE PROPIONATE | [facility] | + + + + | 2022-03-05 00:00 | FLUTICASONE PROPIONATE | [facility] | + + + + | 2022-03-16 00:00 | FLUTICASONE PROPIONATE | [facility] | + + + + | 2022-03-17 00:00 | FLUTICASONE PROPIONATE | [facility] | + + + + | 2022-04-10 00:00 | FLUTICASONE PROPIONATE | [facility] | + + + + | 2022-05-07 00:00 | FLUTICASONE PROPIONATE | [facility] | + + + + | 2022-06-07 00:00 | FLUTICASONE PROPIONATE | [facility] | + + + + | 2022-08-19 00:00 | FLUTICASONE PROPIONATE | [facility] | + + + + | 2022-12-29 00:00 | FLUTICASONE PROPIONATE | [facility] | + + + + | 2022-12-30 00:00 | FLUTICASONE PROPIONATE | [facility] | + + + + | 2022-03-04 00:00 | LEVOTHYROXINE SODIUM | [facility] | + + + + | 2022-03-05 00:00 | LEVOTHYROXINE SODIUM | [facility] | + + + + | 2022-03-16 00:00 | LEVOTHYROXINE SODIUM | [facility] | + + + + | 2022-03-17 00:00 | LEVOTHYROXINE SODIUM | [facility] | + + + + | 2022-04-10 00:00 | LEVOTHYROXINE SODIUM | [facility] | + + + + | 2022-05-07 00:00 | LEVOTHYROXINE SODIUM | [facility] | + + + + | 2022-06-07 00:00 | LEVOTHYROXINE SODIUM | [facility] | + + + + | 2022-08-19 00:00 | LEVOTHYROXINE SODIUM | [facility] | + + + + | 2022-12-29 00:00 | LEVOTHYROXINE SODIUM | [facility] | + + + + | 2022-12-30 00:00 | LEVOTHYROXINE SODIUM | [facility] | + + + + | 2022-03-04 00:00 | LEVOTHYROXINE SODIUM | [facility] | + + + + | 2022-03-05 00:00 | LEVOTHYROXINE SODIUM | [facility] | + + + + | 2022-03-16 00:00 | LEVOTHYROXINE SODIUM | [facility] | + + + + | 2022-03-17 00:00 | LEVOTHYROXINE SODIUM | [facility] | + + + + | 2022-04-10 00:00 | LEVOTHYROXINE SODIUM | [facility] | + + + + | 2022-05-07 00:00 | LEVOTHYROXINE SODIUM | [facility] | + + + + | 2022-06-07 00:00 | LEVOTHYROXINE SODIUM | [facility] | + + + + | 2022-08-19 00:00 | LEVOTHYROXINE SODIUM | [facility] | + + + + | 2022-12-29 00:00 | LEVOTHYROXINE SODIUM | [facility] | + + + + | 2022-12-30 00:00 | LEVOTHYROXINE SODIUM | [facility] | + + + + Problems + + + + | date | description | facility | + + + + | 2015-04-04 00:00 | Chest pain | [facility] | + + + + | 2015-05-19 00:00 | Hematoma following | [facility] | | | procedure | | + + + + | 2015-07-12 00:00 | Malaise and fatigue | [facility] | + + + + | 2015-08-13 00:00 | Obstructive chronic | [facility] | | | bronchitis with | | | | exacerbation | | + + + + | 2015-08-25 00:00 | Contusion of left thigh | [facility] | + + + + | 2015-08-26 00:00 | Pneumonia | [facility] | + + + + | 2015-11-03 00:00 | Sinusitis, acute | [facility] | + + + + | 2015-11-03 00:00 | Chest wall pain | [facility] | + + + + | 2016-06-26 00:00 | Weakness | [facility] | + + + + | 2016-10-03 00:00 | Dizziness | [facility] | + + + + | 2016-10-20 00:00 | Dyspnea | [facility] | + + + + | 2017-01-20 00:00 | Ventricular tachycardia | [facility] | + + + + | 2017-01-20 00:00 | Hypotension | [facility] | + + + + | 2018-04-15 00:00 | Transient ischemic attack | [facility] | + + + + | 2019-01-20 00:00 | Otitis media of right ear | [facility] | | | with spontaneous rupture of | | | | tympanic membrane | | + + + + | 2019-07-23 00:00 | Syncope | [facility] | + + + + | 2019-09-02 00:00 | Costochondritis | [facility] | + + + + | 2021-07-07 00:00 | Constipation | [facility] | + + + + | 2021-07-07 00:00 | Abdominal pain | [facility] | + + + + | 2021-08-10 00:00 | Pre-syncope | [facility] | + + + + | 2021-08-19 00:00 | Right inguinal pain | [facility] | + + + + | 2022-01-17 00:00 | Acute on chronic | [facility] | | | congestive heart failure | | + + + + | 2022-01-18 00:00 | Congestive heart failure | [facility] | + + + + | 2022-01-18 00:00 | Contusion of rib on left | [facility] | | | side | | + + + + | 2022-01-18 00:00 | Contusion of left knee | [facility] | + + + + | 2022-03-02 00:00 | Urinary tract infection | [facility] [facility] | + + + + | 2022-03-16 00:00 | Nausea and vomiting | [facility] | + + + + | 2022-03-16 00:00 | Heat exhaustion | [facility] | + + + + | 2022-05-07 00:00 | Melena | [facility] | + + + + | 2022-05-07 00:00 | Right lower quadrant | [facility] | | | abdominal pain | | + + + + | 2022-08-18 00:00 | Bronchitis | [facility] | + + + + | 2022-12-28 15:13 | UNILATERAL PRIMARY | [facility] | | | OSTEOARTHRITIS, RIGHT HIP | | + + + + | 2022-12-28 15:13 | PAIN IN RIGHT HIP | [facility] | + + + + | 2022-12-29 00:00 | Abdominal aortic aneurysm | [facility] | | | (AAA) | | + + + + | 2022-12-29 00:00 | Pain of right hip | [facility] | + + + + | 2022-12-30 00:00 | Sciatica | [facility] | + + + + Procedures [...] | (unknown) | | | | | Adnis | value) | unknown) | | | [...]
[~2023-02-22 16:26] MED LIST changes: +LIDODERM1 EACH TOP
--- OUTSIDE RECORDS SUMMARY | 2023-02-22 16:32 | XMS ---
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 Care History Medical/Surgical 05/27/2019 [facility] - PATIENT HAS A FRONT END ARCHITECT DR BAZAN AT [facility]. Josie VISIT COUNT (12 MO.) [address] [place] [address]. TOTAL 11 NOTE: Visits indicate total known visits. ED/UCC VISIT TRACKING (12 MO.) 02/22/2023 16:26 [facility] TYPE: Emergency COMPLAINT: - WEAKNESS 12/30/2022 20:31 [facility] TYPE: Emergency COMPLAINT: - HIP AND GROIN PAIN DIAGNOSES: - Allergy status to narcotic agent - Allergy status to other drugs, medicaments and biological substances - Allergy status to penicillin - Essential (primary) hypertension - Hormone replacement therapy - custodial (current) use of aspirin - Low back pain, unspecified - Lumbago with sciatica, right side - Other superintendent marine oil terminal (current) drug therapy - Presence of cardiac pacemaker 12/29/2022 14:34 [facility] TYPE: Emergency COMPLAINT: - GROIN PAIN DIAGNOSES: - Abdominal aortic aneurysm, without rupture, unspecified - Allergy status to narcotic agent - Allergy status to other drugs, medicaments and biological substances - Allergy status to penicillin - Essential (primary) hypertension - Hormone replacement therapy - custodial (current) use of aspirin - Other superintendent marine oil terminal (current) drug therapy - Pain in right hip - Presence of cardiac pacemaker - Right lower quadrant pain 08/18/2022 17:25 [facility] TYPE: Emergency COMPLAINT: - COUGH, LIGHT HEADED, NAUSEA, HEADACHE DIAGNOSES: - Acute bronchitis, unspecified - Allergy status to narcotic agent - Allergy status to other drugs, medicaments and biological substances - Bronchitis, not specified as acute or chronic - Contact with and (suspected) exposure to COVID-19 - Dizziness and giddiness - Essential (primary) hypertension - assistant terminal manager (current) use of antithrombotics/antiplatelets - custodial (current) use of aspirin - Orthostatic hypotension - Other longterm (current) drug therapy - Sleep apnea, unspecified 06/07/2022 00:50 [facility] TYPE: Emergency COMPLAINT: - ABD PAIN DIAGNOSES: - Allergy status to narcotic agent - Allergy status to other drugs, medicaments and biological substances - Allergy status to penicillin - Constipation, unspecified - Contact with and (suspected) exposure to COVID-19 - Essential (primary) hypertension - Other superintendent marine oil terminal (current) drug therapy - Prediabetes - Right lower quadrant pain - Sleep apnea, unspecified 05/07/2022 18:06 [facility] TYPE: Emergency COMPLAINT: - BLOODY STOOL DIAGNOSES: - Allergy status to narcotic agent - Allergy status to other antibiotic agents - Allergy status to other drugs, medicaments and biological substances - Contact with and (suspected) exposure to COVID-19 - assistant terminal manager (current) use of aspirin - Other fecal abnormalities - Other superintendent marine oil terminal (current) drug therapy - Right lower quadrant [...] hypertension - Hypotension due to drugs - custodial (current) use of aspirin - Other longterm (current) drug therapy - Sleep apnea, unspecified 03/17/2022 14:59 [facility] TYPE: Emergency COMPLAINT: - BODY ACHES DIAGNOSES: - Allergy status to narcotic agent - Allergy status to other drugs, medicaments and biological substances - Allergy status to penicillin - Contact with and (suspected) exposure to COVID-19 - Essential (primary) hypertension - assistant terminal manager (current) use of antithrombotics/antiplatelets - Other fatigue - Other superintendent marine oil terminal (current) drug therapy - Presence of cardiac [...] - Heat exhaustion, unspecified, initial encounter - assistant terminal manager (current) use of aspirin - Nausea with vomiting, unspecified - Other longterm (current) drug therapy - Sleep apnea, unspecified 03/04/2022 10:59 [facility] TYPE: Emergency COMPLAINT: - ABD PAIN DIAGNOSES: - Allergy status to narcotic agent - Allergy status to other drugs, medicaments and biological substances - Allergy status to penicillin - Essential (primary) hypertension - custodial (current) use of aspirin - Myalgia, other site - Other superintendent marine oil terminal (current) drug therapy - Presence of cardiac pacemaker - Right lower quadrant pain - Sleep apnea, unspecified 03/02/2022 15:[address] [facility] [place] TYPE: Emergency COMPLAINT: - CHEST PAIN DIAGNOSES: - Allergy status to narcotic agent - Allergy status to other drugs, medicaments and biological substances - Allergy status to penicillin - Chest pain, unspecified - Contact with and (suspected) exposure to COVID-19 - Essential (primary) hypertension - assistant terminal manager (current) use of aspirin - Other longterm (current) drug therapy - Urinary tract infection, site not specified INPATIENT VISIT TRACKING (12 MO.) No inpatient visits to display in this time frame [email or web address]
[2023-02-22 18:58] VITALS: BP 108/84
== END 2023-02-22 18:58 | disposition home or self-care (01) ==
LOC: ED 16:26
DX: I95.9 Hypotension, unspecified (principal); R53.83 Other fatigue; I10 Essential (primary) hypertension; Z99.81 Dependence on supplemental oxygen; Z88.5 Allergy status to narcotic agent; Z88.8 Allergy status to other drugs, medicaments and biological substances; Z88.0 Allergy status to penicillin; Z79.899 Other long term (current) drug therapy; Z79.82 Long term (current) use of aspirin
CPT/HCPCS: 36415; 71045; 80053; 81001; 84484; 85025; 87088; 99285 25; J7030

== ENCOUNTER 2023-08-03 15:13 | Emergency (ER) | payer MEDICARE, OTHER ==
[~2023-08-03] VITALS: Ht 177.8 cm; Wt 99.5 kg
--- OUTSIDE RECORDS SUMMARY | 2023-08-03 15:23 | XMS ---
PreManage Notification: FRANCI VELÁZQUEZ Security Last Repairer Events No recent Security Events currently on file CRITERIA MET - Group Notification - [facility] - 2 Visits in 30 Days CARE PROVIDERS There are no care providers on record at this time. [place] has no Care Guidelines for this patient. Care History Medical/Surgical 05/27/2019 [facility] \R\- PATIENT HAS A MEAT GRADING MACHINE OPERATOR DR BAZAN AT [facility]. ETina VISIT COUNT (12 MO.) [address] [place] [address] TOTAL 7 NOTE: Visits indicate total known visits. ED/C VISIT TRACKING (12 MO.) 08/03/2023 15:15 [facility] [place] TYPE: Emergency COMPLAINT: - LT ANKLE PAIN 07/31/2023 14:49 [facility] TYPE: Emergency DIAGNOSES: - Orthostatic hypotension - Syncope and collapse - Dizziness 06/10/2023 03:23 [facility] [place] TYPE: Emergency COMPLAINT: - CP DIAGNOSES: - Allergy status to narcotic agent - Allergy status to other drugs, medicaments and biological substances - Allergy status to penicillin - Encounter for adjustment and management of automatic implantable cardiac defibrillator - Essential (primary) hypertension - predatory animal exterminator (current) use of antithrombotics/antiplatelets - Other chest pain - Other long-term (current) drug therapy - Prediabetes - Sleep apnea, unspecified 02/22/2023 16:26 [facility] [place] TYPE: Emergency COMPLAINT: - WEAKNESS DIAGNOSES: - Allergy status to narcotic agent - Allergy status to other drugs, medicaments and biological substances - Allergy status to penicillin - Dependence on supplemental oxygen - Essential (primary) hypertension - Hypotension, unspecified - predatory animal exterminator (current) use of aspirin - Other fatigue - Other predatory animal exterminator (current) drug therapy - Weakness 12/30/2022 20:[address] [facility] [place] TYPE: Emergency COMPLAINT: - HIP AND GROIN PAIN DIAGNOSES: - Allergy status to narcotic agent - Allergy status to other drugs, medicaments and biological substances - Allergy status to penicillin - Essential (primary) hypertension - Hormone replacement therapy - predatory animal exterminator (current) use of aspirin - Low back pain, unspecified - Lumbago with sciatica, right side - Other long-term (current) drug therapy - Presence of cardiac pacemaker 12/29/2022 14:[address] [facility] [place] TYPE: Emergency COMPLAINT: - GROIN PAIN DIAGNOSES: - Abdominal aortic aneurysm, without rupture, unspecified - Allergy status to narcotic agent - Allergy status to other drugs, medicaments and biological substances - Allergy status to penicillin - Essential (primary) hypertension - Hormone replacement therapy - predatory animal exterminator (current) use of aspirin - Other long-term (current) drug therapy - Pain in right hip - Presence of cardiac pacemaker - Right lower quadrant pain 08/18/2022 17:[address] [facility] [place] TYPE: Emergency COMPLAINT: - COUGH, LIGHT HEADED, NAUSEA, HEADACHE DIAGNOSES: - Acute bronchitis, unspecified - Allergy status to narcotic agent - Allergy status to other drugs, medicaments and biological substances - Bronchitis, not specified as acute or chronic - Contact with and (suspected) exposure to COVID-19 - Dizziness and giddiness - Essential (primary) hypertension - predatory animal exterminator (current) use of antithrombotics/antiplatelets - detention (current) use of aspirin - Orthostatic hypotension - Other long-term (current) drug therapy - Sleep apnea, unspecified INPATIENT VISIT TRACKING (12 MO.) No inpatient visits to display in this time frame [id number]
[2023-08-03 19:50] VITALS: BP 130/69
== END 2023-08-03 19:50 | disposition home or self-care (01) ==
LOC: ED 15:13
DX: M25.572 Pain in left ankle and joints of left foot (principal); M25.561 Pain in right knee; I12.9 Hypertensive chronic kidney disease with stage 1 through stage 4 chronic kidney disease, or unspecified chronic kidney disease; I50.9 Heart failure, unspecified; R73.03 Prediabetes; G47.30 Sleep apnea, unspecified; Z95.0 Presence of cardiac pacemaker; Z99.81 Dependence on supplemental oxygen; Z88.5 Allergy status to narcotic agent; Z88.8 Allergy status to other drugs, medicaments and biological substances; Z88.0 Allergy status to penicillin; Z79.899 Other long term (current) drug therapy; Z79.82 Long term (current) use of aspirin
CPT/HCPCS: 73560; 73610; 99283-25

== ENCOUNTER 2023-08-12 07:10 | Emergency (ER) | payer MEDICARE, OTHER ==
[~2023-08-12] VITALS: Ht 177.8 cm; Wt 98.5 kg
--- OUTSIDE RECORDS SUMMARY | 2023-08-12 07:20 | XMS ---
PreManage Notification: FRANCI VELÁZQUEZ Security Ambulatory Service Representative Events No recent Security Events currently on file CRITERIA MET - Group Notification - [facility] - 2 Visits in 30 Days CARE PROVIDERS There are no care providers on record at this time. [place] has no Care Guidelines for this patient. Care History Medical/Surgical 05/27/2019 [facility] \R\- PATIENT HAS A MASTER MERCHANDISER DR BAZAN AT [facility]. ETina VISIT COUNT (12 MO.) [address] [place] [address] TOTAL 8 NOTE: Visits indicate total known visits. ED/C VISIT TRACKING (12 MO.) 08/12/2023 07:11 [facility] [place] TYPE: Emergency COMPLAINT: - PACEMAKER BEEPING 08/03/2023 15:15 [facility] [place] TYPE: Emergency COMPLAINT: - LT ANKLE PAIN/ NO INJURY DIAGNOSES: - Allergy status to narcotic agent - Allergy status to other drugs, medicaments and biological substances - Allergy status to penicillin - Dependence on supplemental oxygen - Heart failure, unspecified - Hypertensive chronic kidney disease with stage 1 through stage 4 chronic kidney disease, or unspecified chronic kidney disease - medical terminologist (current) use of aspirin - Other middle or intermediate school principal (current) drug therapy - Pain in left ankle and joints of left foot - Pain in right knee - Prediabetes - Presence of cardiac pacemaker - Sleep apnea, unspecified 07/31/2023 14:49 [facility] TYPE: Emergency DIAGNOSES: - Orthostatic hypotension - Syncope and collapse - Dizziness 06/10/2023 03:23 [facility] [place] TYPE: Emergency COMPLAINT: - CP DIAGNOSES: - Allergy status to narcotic agent - Allergy status to other drugs, medicaments and biological substances - Allergy status to penicillin - Encounter for adjustment and management of automatic implantable cardiac defibrillator - Essential (primary) hypertension - medical terminologist (current) use of antithrombotics/antiplatelets - Other chest pain - Other jail (current) drug therapy - Prediabetes - Sleep apnea, unspecified 02/22/2023 16:26 [facility] TYPE: Emergency COMPLAINT: - WEAKNESS DIAGNOSES: - Allergy status to narcotic agent - Allergy status to other drugs, medicaments and biological substances - Allergy status to penicillin - Dependence on supplemental oxygen - Essential (primary) hypertension - Hypotension, unspecified - medical terminologist (current) use of aspirin - Other fatigue - Other jail (current) drug therapy - Weakness 12/30/2022 20:31 [facility] [place] TYPE: Emergency COMPLAINT: - HIP AND GROIN PAIN DIAGNOSES: - Allergy status to narcotic agent - Allergy status to other drugs, medicaments and biological substances - Allergy status to penicillin - Essential (primary) hypertension - Hormone replacement therapy - medical terminologist (current) use of aspirin - Low back pain, unspecified - Lumbago with sciatica, right side - Other middle or intermediate school principal (current) drug therapy - Presence of cardiac pacemaker 12/29/2022 14:34 [facility] TYPE: Emergency COMPLAINT: - GROIN PAIN DIAGNOSES: - Abdominal aortic aneurysm, without rupture, unspecified - Allergy status to narcotic agent - Allergy status to other drugs, medicaments and biological substances - Allergy status to penicillin - Essential (primary) hypertension - Hormone replacement therapy - detention (current) use of aspirin - Other jail (current) drug therapy - Pain in right [...] and giddiness - Essential (primary) hypertension - detention (current) use of antithrombotics/antiplatelets - medical terminologist (current) use of aspirin - Orthostatic hypotension - Other middle or intermediate school principal (current) drug therapy - Sleep apnea, unspecified INPATIENT VISIT TRACKING (12 MO.) No inpatient visits to display in this time frame [id number]
[2023-08-12] MEDS ORDERED: METOPROLOL SUCC25 MG PO (07:44)
[2023-08-12] MEDS ORDERED: ALL DAY ALLERGY10 M4 PO (07:45)
[2023-08-12 09:12] VITALS: BP 123/83
== END 2023-08-12 09:12 | disposition home or self-care (01) ==
LOC: ED 07:10
DX: Z45.018 Encounter for adjustment and management of other part of cardiac pacemaker (principal); Z88.5 Allergy status to narcotic agent; Z88.8 Allergy status to other drugs, medicaments and biological substances; Z88.0 Allergy status to penicillin; Z79.899 Other long term (current) drug therapy; Z79.890 Hormone replacement therapy
CPT/HCPCS: 99283

== ENCOUNTER 2023-09-14 16:01 | Emergency (ER) | payer MEDICARE, OTHER ==
[~2023-09-14] VITALS: Ht 177.8 cm; Wt 96.1 kg
[~2023-09-14 16:01] MED LIST changes: +ALL DAY ALLERGY10 M4 PO
--- OUTSIDE RECORDS SUMMARY | 2023-09-14 16:08 | XMS ---
PreManage Notification: FRANCI VELÁZQUEZ Security Change Analyst Events No recent Security Events currently on file CRITERIA MET - 6 ED Visits in 6 Months - Group Notification - [facility] - 2 Visits in 30 Days CARE PROVIDERS There are no care providers on record at this time. [place] has no Care Guidelines for this patient. Care History Medical/Surgical 05/27/2019 [facility] \R\- PATIENT HAS A SEROLOGY TEACHER DR BAZAN AT [facility]. E.DIdris VISIT COUNT (12 MO.) [address] TOTAL 10 NOTE: Visits indicate total known visits. ED/C VISIT TRACKING (12 MO.) 09/14/2023 16:01 [facility] [place] TYPE: Emergency COMPLAINT: - PACE MAKER ISSUE 09/13/2023 08:05 [facility] TYPE: Emergency DIAGNOSES: - Breakdown (mechanical) of cardiac electrode, initial encounter - Pacemaker Problem 09/13/2023 03:43 [facility] [place] TYPE: Emergency COMPLAINT: - POST OP PROBLEM 08/12/2023 07:11 [facility] [place] TYPE: Emergency COMPLAINT: - PACEMAKER BEEPING DIAGNOSES: - Allergy status to narcotic agent - Allergy status to other drugs, medicaments and biological substances - Allergy status to penicillin - Encounter for adjustment and management of other part of cardiac pacemaker - Hormone replacement therapy - Other ocean transportation intermediary (current) drug therapy 08/03/2023 15:15 [facility] [place] TYPE: Emergency [...] disease, or unspecified chronic kidney disease - MCFP (current) use of aspirin - Other fpc (current) drug therapy - Pain in left ankle and joints of left foot - Pain in right knee - Prediabetes - Presence of cardiac pacemaker - Sleep apnea, unspecified 07/31/2023 14:49 [facility] TYPE: Emergency DIAGNOSES: - Orthostatic hypotension - Syncope and collapse - Dizziness 06/10/2023 03:23 [facility] [place] TYPE: Emergency COMPLAINT: - CP DIAGNOSES: - Allergy status to narcotic agent - Allergy status to other drugs, medicaments and biological substances - Allergy status to penicillin - Encounter for adjustment and management of automatic implantable cardiac defibrillator - Essential (primary) hypertension - MCFP (current) use of antithrombotics/antiplatelets - Other chest pain - Other ocean transportation intermediary (current) drug therapy - Prediabetes - Sleep apnea, unspecified 02/22/2023 16:26 [facility] TYPE: Emergency COMPLAINT: - WEAKNESS DIAGNOSES: - Allergy status to narcotic agent - Allergy status to other drugs, medicaments and biological substances - Allergy status to penicillin - Dependence on supplemental oxygen - Essential (primary) hypertension - Hypotension, unspecified - MCFP (current) use of aspirin - Other fatigue - Other ocean transportation intermediary (current) drug therapy - Weakness 12/30/2022 20:31 [facility] TYPE: Emergency COMPLAINT: - HIP AND GROIN PAIN DIAGNOSES: - Allergy status to narcotic agent - Allergy status to other drugs, medicaments and biological substances - Allergy status to penicillin - Essential (primary) hypertension - Hormone replacement therapy - MCFP (current) use of aspirin - Low back pain, unspecified - Lumbago with sciatica, right side - Other ocean transportation intermediary (current) drug therapy - Presence of cardiac pacemaker 12/29/2022 14:34 [facility] TYPE: Emergency COMPLAINT: - GROIN PAIN DIAGNOSES: - Abdominal aortic aneurysm, without rupture, unspecified - Allergy status to narcotic agent - Allergy status to other drugs, medicaments and biological substances - Allergy status to penicillin - Essential (primary) hypertension - Hormone replacement therapy - MCFP (current) use of aspirin - Other fpc (current) drug therapy - Pain in right hip - Presence of cardiac pacemaker - Right lower quadrant pain INPATIENT VISIT TRACKING (12 MO.) 09/13/2023 08:05 [facility] TYPE: Internal Medicine DIAGNOSES: - Breakdown (mechanical) of cardiac electrode, initial encounter [id number]
[2023-09-14 17:11] LABS: RDW 16.2 (10.5-15.0)
[2023-09-14 17:13] LABS: BASOPHILS 0.7 % (0-2); EOSINOPHILS 1.3 % (0-6); HEMATOCRIT 39.6 % (35.0-50.0); HEMOGLOBIN 13.3 g/dL (12.0-18.0); LYMPHOCYTES 6.7 % (24-44); MCH 29.8 (27-36); MCHC 33.7 g/dl (30-36); MCV 88.6 fl (81-99); MONOCYTES 7.6 % (0-12); NEUTROPHILS 83.7 % (39-80); PLATELET COUNT 155 K/uL (140-440); RBC 4.46 M/ul (4.3-5.7)
[2023-09-14 17:26] LABS: ALBUMIN 3.1 g/dL (3.4-5.0); ALBUMIN/GLOBULIN RATIO 1.24 (1.1-2.4); ANION GAP 9.5 (7-21); BILIRUBIN, TOTAL 2.6 ng/dL (0.2-1.0); BUN/CREATININE RATIO 15.04 (6.0-28.6); CALCIUM 8.4 mg/dL (8.5-10.1); CREATININE, SERUM 1.13 mg/dL (0.70-1.30); POTASSIUM 4.5 mmol/L (3.5-5.1); PROTEIN, TOTAL 5.6 g/dL (6.4-8.2)
[2023-09-14 18:53] VITALS: BP 118/70
== END 2023-09-14 18:53 | disposition home or self-care (01) ==
LOC: ED 16:01
PROVIDERS: Emergency Medicine
DX: R53.1 Weakness (principal); I10 Essential (primary) hypertension; G47.30 Sleep apnea, unspecified; R73.03 Prediabetes; Z95.810 Presence of automatic (implantable) cardiac defibrillator; Z88.5 Allergy status to narcotic agent; Z88.0 Allergy status to penicillin; Z88.8 Allergy status to other drugs, medicaments and biological substances; Z99.81 Dependence on supplemental oxygen; Z79.899 Other long term (current) drug therapy; Z79.82 Long term (current) use of aspirin; Z79.890 Hormone replacement therapy
CPT/HCPCS: 80053; 82140; 85025; 99283

== ENCOUNTER 2024-02-14 17:19 | Emergency (ER) | payer MEDICARE, OTHER ==
[~2024-02-14] VITALS: Ht 177.8 cm; Wt 93.1 kg
[~2024-02-14 17:19] MED LIST changes: +JARDIANCE10 MG PO; +LEVOFLOXACIN750 MG PO; +MACROBID 100 M100 MG PO
--- OUTSIDE RECORDS SUMMARY | 2024-02-14 17:24 | XMS ---
PreManage Notification: FRANCI VELÁZQUEZ Security Property Consultant Events No recent Security Events currently on file CRITERIA MET - 6 ED Visits in 6 Months - Group Notification - [facility] - 2 Visits in 30 Days CARE PROVIDERS There are no care providers on record at this time. [place] has no Care Guidelines for this patient. Care History Medical/Surgical 05/27/2019 [facility] \R\- PATIENT HAS A CLAY MINE CUTTING MACHINE OPERATOR DR BAZAN AT [facility]. E.DIdris VISIT COUNT (12 MO.) [address] TOTAL 16 NOTE: Visits indicate total known visits. ED/C VISIT TRACKING (12 MO.) 02/14/2024 17:20 [facility] [place] TYPE: Emergency COMPLAINT: - TRAUMA ADULT 02/03/2024 13:49 [facility] TYPE: Emergency COMPLAINT: - URINE PROBLEM DIAGNOSES: - Allergy status to narcotic agent - Allergy status to other drugs, medicaments and biological substances - Allergy status to penicillin - Anxiety disorder, unspecified - Dysuria - Essential (primary) hypertension - Exposure to other specified factors, initial encounter - Hormone replacement therapy - equipment operator intermodal yard (current) use of aspirin - Other nursing home (current) drug therapy - Prediabetes - Presence of automatic (implantable) cardiac defibrillator - Unspecified fracture of sacrum, initial encounter for closed fracture - Urinary tract infection, site not specified 01/22/2024 02:44 [facility] TYPE: Emergency COMPLAINT: - ALLERGIC REACTION DIAGNOSES: - Adverse effect of alpha-adrenoreceptor antagonists, initial encounter - Adverse effect of tetracyclines, initial encounter - Allergy status to narcotic agent - Allergy status to other drugs, medicaments and biological substances - Allergy status to penicillin - Dependence on supplemental oxygen - Essential (primary) hypertension - Hormone replacement therapy - nursing home (current) use of aspirin - Other termite exterminator helper (current) drug therapy - Prediabetes - Presence of automatic (implantable) cardiac defibrillator - Shortness of breath - Sleep apnea, unspecified - Urinary tract infection, site not specified 12/29/2023 21:43 [facility] TYPE: Emergency COMPLAINT: - VOMITING DIAGNOSES: - Allergy status to narcotic agent - Allergy status to other drugs, medicaments and biological substances - Dehydration - Essential (primary) hypertension - Hormone replacement therapy - nursing home (current) use of aspirin - Nausea - Presence of cardiac pacemaker - Urinary tract infection, site not specified 11/18/2023 21:01 [facility] TYPE: Emergency COMPLAINT: - ABD PAIN DIAGNOSES: - Abdominal aortic aneurysm, without rupture, unspecified - Allergy status to narcotic agent - Allergy status to other drugs, medicaments and biological substances - Allergy status to penicillin - Essential (primary) hypertension - Leakage of femoral arterial graft (bypass), initial encounter - Leakage of other cardiac and vascular devices and implants, initial encounter - equipment operator intermodal yard (current) use of aspirin - Other nursing home (current) drug therapy - Right lower quadrant pain - Surgical operation with anastomosis, bypass or graft as the cause of abnormal reaction of the patient, or of later complication, without mention of misadventure at the time of the procedure 11/13/2023 13:12 [facility] TYPE: Emergency COMPLAINT: - ABD PAIN DIAGNOSES: - Allergy status to narcotic agent - Allergy status to other drugs, medicaments and biological substances - Allergy status to penicillin - Essential (primary) hypertension - Hormone replacement therapy - Leakage of aortic (bifurcation) graft (replacement), initial encounter - equipment operator intermodal yard (current) use of aspirin - Other nursing home (current) drug therapy - Presence of cardiac pacemaker - Right lower quadrant pain 10/18/2023 20:01 [facility] TYPE: Emergency COMPLAINT: - HIP PAIN/INJ DIAGNOSES: - Abdominal aortic aneurysm, without rupture, unspecified - Allergy status to narcotic agent - Allergy status to other drugs, medicaments and biological substances - Allergy status to penicillin - Dependence on supplemental oxygen - Essential (primary) hypertension - Hormone replacement therapy - equipment operator intermodal yard (current) use of antithrombotics/antiplatelets - nursing home (current) use of aspirin - Other termite exterminator helper (current) drug therapy - Pain in right hip - Sleep apnea, unspecified 09/22/2023 16:55 [facility] TYPE: Emergency COMPLAINT: - WEAKNESS DIAGNOSES: - Allergy status to narcotic agent - Allergy status to other drugs, medicaments and biological substances - Allergy status to penicillin - Hormone replacement therapy - Hypertensive heart disease without heart failure - equipment operator intermodal yard (current) use of aspirin - Other nursing home (current) drug therapy - Other specified abnormal findings of blood chemistry - Sleep apnea, unspecified - Weakness 09/14/2023 16:01 [facility] TYPE: Emergency COMPLAINT: - PACE MAKER ISSUE DIAGNOSES: - Allergy status to narcotic agent - Allergy status to other drugs, medicaments and biological substances - Allergy status to penicillin - Dependence on supplemental oxygen - Essential (primary) hypertension - Hormone replacement therapy - equipment operator intermodal yard (current) use of aspirin - Other nursing home (current) drug therapy - Prediabetes - Presence of automatic (implantable) cardiac defibrillator - Sleep apnea, unspecified - Weakness 09/13/2023 08:05 [facility] TYPE: Emergency DIAGNOSES: - Breakdown (mechanical) of cardiac electrode, initial encounter - Pacemaker Problem 09/13/2023 03:43 [facility] [place] TYPE: Emergency COMPLAINT: - POST OP PROBLEM DIAGNOSES: - Allergy status to narcotic agent - Allergy status to other drugs, medicaments and biological substances - Allergy status to penicillin - Chest pain, unspecified - Essential (primary) hypertension - Exposure to other specified factors, initial encounter - Hormone replacement therapy - equipment operator intermodal yard (current) use of antithrombotics/antiplatelets - nursing home (current) use of aspirin - Other termite exterminator helper (current) drug therapy - Other specified complication of cardiac prosthetic devices, implants and grafts, initial encounter - Prediabetes - Sleep apnea, unspecified 08/12/2023 07:11 [facility] TYPE: Emergency COMPLAINT: - PACEMAKER BEEPING DIAGNOSES: - Allergy status to narcotic agent - Allergy status to other drugs, medicaments and biological substances - Allergy status to penicillin - Encounter for adjustment and management of other part of cardiac pacemaker - Hormone replacement therapy - Other nursing home (current) drug therapy 08/03/2023 15:15 [facility] [...] disease, or unspecified chronic kidney disease - nursing home (current) use of aspirin - Other nursing home (current) drug therapy - Pain in left [...] cardiac defibrillator - Essential (primary) hypertension - nursing home (current) use of antithrombotics/antiplatelets - Other chest pain - Other nursing home (current) drug therapy - Prediabetes - Sleep apnea, unspecified 02/22/2023 16:26 [facility] TYPE: Emergency COMPLAINT: - WEAKNESS DIAGNOSES: - Allergy status to narcotic agent - Allergy status to other drugs, medicaments and biological substances - Allergy status to penicillin - Dependence on supplemental oxygen - Essential (primary) hypertension - Hypotension, unspecified - nursing home (current) use of aspirin - Other fatigue - Other termite exterminator helper (current) drug therapy - Weakness INPATIENT VISIT TRACKING (12 MO.) 09/13/2023 08:05 [facility] TYPE: Internal Medicine DIAGNOSES: - Breakdown (mechanical) of cardiac electrode, initial encounter [id number]
[2024-02-14] MEDS ORDERED: SODIUM CHLORIDE 0.9% 1,000 ML IV ONE (17:30)
[2024-02-14] MEDS ORDERED: fentaNYL citrate 100 MCG/2 ML VIAL ONE (17:33)
[2024-02-14 17:38] LABS: HEMATOCRIT 41.5 % (35.0-50.0); HEMOGLOBIN 13.9 g/dL (12.0-18.0); MCH 30.7 (27-36); MCHC 33.6 g/dl (30-36); MCV 91.2 fl (81-99); PLATELET COUNT 162 K/uL (140-440); RBC 4.54 M/ul (4.3-5.7); RDW 16.9 (10.5-15.0)
[2024-02-14 17:51] LABS: ALBUMIN/GLOBULIN RATIO 1.25 (1.1-2.4); ALCOHOL, MEDICAL <3 ng/dL (<3); ALKALINE PHOSPHATASE 81 U/L (46-116); ALT (SGPT) 30 U/L (14-59); ANION GAP 8.4 (7-21); AST (SGOT) 18 U/L (15-37); BILIRUBIN, TOTAL 1.4 ng/dL (0.2-1.0); BUN/CREATININE RATIO 15.09 (6.0-28.6); CALCIUM 7.9 mg/dL (8.5-10.1); CARBON DIOXIDE 31 mmol/L (21-32); CHLORIDE 101 mmol/L (98-107); CREATINE KINASE 20 U/L (39-308); CREATININE, SERUM 1.06 mg/dL (0.70-1.30); GLOMERULAR FILTRATION RATE,EST 73 mL/min (>60); POTASSIUM 4.4 mmol/L (3.5-5.1); PROTEIN, TOTAL 5.4 g/dL (6.4-8.2); UREA NITROGEN 16 mg/dL (7-18)
[2024-02-14 17:58] LABS: BASOPHILS, MANUAL DIFF 1; EOSINOPHILS, MANUAL DIFF 1; LYMPHOCYTES, MANUAL DIFF 14; MONOCYTES, MANUAL DIFF 3; NEUTROPHILS, MANUAL DIFF 81
[2024-02-14 18:11] LABS: ABO O; ANTIBODY SCREEN NEGATIVE; RH POSITIVE
[2024-02-14 18:20] LABS: BILIRUBIN, URINE NEGATIVE (negative); BLOOD/HGB, URINE NEGATIVE (Negative); KETONE, URINE NEGATIVE (Negative); LEUK ESTERASE, URINE NEGATIVE (negative); NITRITE, URINE NEGATIVE (negative); PH, URINE 7.5 (5-7)
[2024-02-14] MEDS ORDERED: HYDROMORPHONE HC2 MG PO (20:26)
[2024-02-14] MEDS ORDERED: ACETAMINOPHEN 500 MG TAB PO ONE (20:30)
[2024-02-14] MEDS ORDERED: KETOROLAC TROMETHAMINE 15 MG/ML VIAL IV ONE (20:30)
[2024-02-14] MEDS ORDERED: HYDROmorphone HCL 2 MG TAB PO ONE (20:30)
[2024-02-15 00:52] VITALS: BP 95/62
[2024-02-15] MEDS ORDERED: fentaNYL citrate 100 MCG/2 ML VIAL IV ONE (15:30)
== END 2024-02-15 00:52 | disposition home or self-care (01) ==
LOC: ED 17:19
PROVIDERS: Emergency Medicine
DX: S20.221A Contusion of right back wall of thorax, initial encounter (principal); I10 Essential (primary) hypertension; G47.30 Sleep apnea, unspecified; W07.XXXA Fall from chair, initial encounter; Z79.899 Other long term (current) drug therapy; Z79.02 Long term (current) use of antithrombotics/antiplatelets; Z88.0 Allergy status to penicillin; Z88.5 Allergy status to narcotic agent; Z88.8 Allergy status to other drugs, medicaments and biological substances
CPT/HCPCS: 36415; 71045; 72070; 72100; 73630; 80053; 81003; 82553; 83690; 84484; 85025; 86850; 86900; 86901; A9270; G0480; J1885; J3010; J7030

== ENCOUNTER 2024-05-25 22:08 | Emergency (ER) | payer MEDICARE, OTHER ==
[~2024-05-25] VITALS: Ht 177.8 cm; Wt 98.7 kg
[~2024-05-25 22:08] MED LIST changes: +HYDROMORPHONE HC2 MG PO
--- OUTSIDE RECORDS SUMMARY | 2024-05-25 22:12 | XMS ---
PreManage Notification: FRANCI VELÁZQUEZ Security Talent Assistant Events No recent Security Events currently on file CRITERIA MET - 6 ED Visits in 6 Months - Group Notification CARE PROVIDERS There are no care providers on record at this time. [place] has no Care Guidelines for this patient. Care History Medical/Surgical 05/27/2019 [facility] \R\- PATIENT HAS A STORE RECEIVER DR BAZAN AT [facility]. E.D. VISIT COUNT (12 MO.) [address] TOTAL 17 NOTE: Visits indicate total known visits. ED/C VISIT TRACKING (12 MO.) 05/25/2024:08 [facility] [place] [facility] [place] TYPE: Emergency COMPLAINT: - SHORT OF BREATH 03/04/2024 16:15 [facility] [place] [facility] [place] TYPE: Emergency COMPLAINT: - LOW BLOOD PRESSURE DIAGNOSES: - Allergy status to narcotic agent - Allergy status to other drugs, medicaments and biological substances - Allergy status to penicillin - Essential (primary) hypertension - Hormone replacement therapy - Hypotension, unspecified - truck terminal manager (current) use of aspirin - Other terminologist (current) drug therapy - Prediabetes - Sleep apnea, unspecified 02/14/2024 17:20 [facility] [facility] [place] TYPE: Emergency COMPLAINT: - TRAUMA ADULT DIAGNOSES: - Allergy status to narcotic agent - Allergy status to other drugs, medicaments and biological substances - Allergy status to penicillin - Contusion of right back wall of thorax, initial encounter - Essential (primary) hypertension - Fall from chair, initial encounter - senior living (current) use of antithrombotics/antiplatelets - Other longterm (current) drug therapy - Pain in thoracic spine - Sleep apnea, unspecified 02/03/2024 13:49 [facility] [place] TYPE: Emergency COMPLAINT: - URINE PROBLEM DIAGNOSES: - Allergy status to narcotic agent - Allergy status to other drugs, medicaments and biological substances - Allergy status to penicillin - Anxiety disorder, unspecified - Dysuria - Essential (primary) hypertension - Exposure to other specified factors, initial encounter - Hormone replacement therapy - senior living (current) use of aspirin - Other longterm (current) drug therapy - Prediabetes - Presence [...] (primary) hypertension - Hormone replacement therapy - truck terminal manager (current) use of aspirin - Other terminologist (current) drug therapy - Prediabetes - Presence [...] (primary) hypertension - Hormone replacement therapy - senior living (current) use of aspirin - Nausea - [...] vascular devices and implants, initial encounter - truck terminal manager (current) use of aspirin - Other longterm (current) drug therapy - Right lower quadrant [...] aortic (bifurcation) graft (replacement), initial encounter - senior living (current) use of aspirin - Other longterm (current) drug therapy - Presence of cardiac [...] (primary) hypertension - Hormone replacement therapy - truck terminal manager (current) use of antithrombotics/antiplatelets - truck terminal manager (current) use of aspirin - Other terminologist (current) drug therapy - Pain in right hip - Sleep apnea, unspecified 09/22/2023 16:55 [facility] [place] TYPE: Emergency COMPLAINT: - WEAKNESS DIAGNOSES: - Allergy status to narcotic agent - Allergy status to other drugs, medicaments and biological substances - Allergy status to penicillin - Hormone replacement therapy - Hypertensive heart disease without heart failure - truck terminal manager (current) use of aspirin - Other terminologist (current) drug therapy - Other specified abnormal [...] (primary) hypertension - Hormone replacement therapy - senior living (current) use of aspirin - Other terminologist (current) drug therapy - Prediabetes - Presence of automatic (implantable) cardiac defibrillator - Sleep apnea, unspecified - Weakness 09/13/2023 08:05 [facility] TYPE: Emergency DIAGNOSES: - Breakdown (mechanical) [...] initial encounter - Hormone replacement therapy - senior living (current) use of antithrombotics/antiplatelets - truck terminal manager (current) use of aspirin - Other longterm (current) drug therapy - Other specified complication [...] pacemaker - Hormone replacement therapy - Other terminologist (current) drug therapy 08/03/2023 15:15 RANJAN Alfredo [...] disease, or unspecified chronic kidney disease - senior living (current) use of aspirin - Other longterm (current) drug therapy - Pain in left ankle and joints of left foot - Pain in right knee - Prediabetes - Presence of cardiac pacemaker - Sleep apnea, unspecified 07/31/2023 14:49 [facility] [...] cardiac defibrillator - Essential (primary) hypertension - senior living (current) use of antithrombotics/antiplatelets - Other chest pain - Other longterm (current) drug therapy - Prediabetes - Sleep apnea, unspecified INPATIENT VISIT TRACKING (12 MO.) 09/13/2023 08:05 [facility] TYPE: Internal Medicine DIAGNOSES: - Breakdown (mechanical) of cardiac electrode, initial encounter [id number]
[2024-05-25] MEDS ORDERED: TAMSULOSIN HCL0.4 MG PO (22:22)
[2024-05-25] MEDS ORDERED: AMIODARONE HCL200 MG PO (22:22)
[2024-05-25 23:39] LABS: RBC 4.06 M/ul (4.3-5.7)
[2024-05-25 23:43] LABS: EOSINOPHILS 1.8 % (0-6); HEMATOCRIT 36.9 % (35.0-50.0); HEMOGLOBIN 12.6 g/dL (12.0-18.0); LYMPHOCYTES 10.2 % (24-44); MCH 31.1 (27-36); MCHC 34.2 g/dl (30-36); MCV 90.9 fl (81-99); MONOCYTES 7.3 % (0-12); NEUTROPHILS 79.7 % (39-80); PLATELET COUNT 155 K/uL (140-440)
[2024-05-25] MEDS ORDERED: LORazepam 1 MG TAB PO ONE (23:45)
[2024-05-26 00:01] LABS: ALBUMIN 3.2 g/dL (3.4-5.0); ALBUMIN/GLOBULIN RATIO 1.45 (1.1-2.4); ANION GAP 6.2 (7-21); BILIRUBIN, TOTAL 1.9 ng/dL (0.2-1.0); BUN/CREATININE RATIO 14.28 (6.0-28.6); CALCIUM 8.6 mg/dL (8.5-10.1); CREATININE, SERUM 1.19 mg/dL (0.70-1.30); POTASSIUM 4.2 mmol/L (3.5-5.1); PROTEIN, TOTAL 5.4 g/dL (6.4-8.2)
[2024-05-26 00:30] VITALS: BP 125/73
--- NOTE | 2024-05-28 15:37 | EKG ---
[facility] [address] [place] [address] Signed AV dual-paced rhythm Biventricular pacemaker detected Abnormal ECG When compared with ECG of 29-DEC-2023 21:43, Vent. rate has decreased BY 12 BPM Confirmed by Yung Garcia MD ([id number]) on 05/28/2024 3:37:28 PM Electronically Signed By: YUNG GARCIA MD 05/28/24 1537 PATIENT NAME: NBAKATIEFRANCIED RODRIGUEZ Electrocardiogram DATE OF : 49 PHYSICIAN: YUNG GARCIA MD REPORT #: [id number] REPORT IS CONFIDENTIAL AND NOT TO BE RELEASED WITHOUT AUTHORIZATION
== END 2024-05-26 00:32 | disposition home or self-care (01) ==
LOC: ED 22:08
PROVIDERS: Emergency Medicine
DX: R06.09 Other forms of dyspnea (principal); I10 Essential (primary) hypertension; Z95.0 Presence of cardiac pacemaker; Z88.5 Allergy status to narcotic agent; Z88.0 Allergy status to penicillin; Z88.8 Allergy status to other drugs, medicaments and biological substances; Z79.890 Hormone replacement therapy; Z79.899 Other long term (current) drug therapy; Z79.82 Long term (current) use of aspirin
CPT/HCPCS: 36415; 71045; 80053; 83880; 84484; 85025; 93005; 93010; 99285-25; A9270-GY

== ENCOUNTER 2024-10-09 14:59 | Emergency (ER) | payer MEDICARE, OTHER ==
[~2024-10-09] VITALS: Ht 177.8 cm; Wt 105.7 kg
[~2024-10-09 14:59] MED LIST changes: +CEFDINIR300 MG PO; +TAMSULOSIN HCL0.4 MG PO
--- OUTSIDE RECORDS SUMMARY | 2024-10-09 15:06 | XMS ---
PreManage Notification: FRANCI VELÁZQUEZ Security Cloth Sander Events No recent Security Events currently on file CRITERIA MET - Group Notification - [facility] - 2 Visits in 30 Days CARE PROVIDERS KALEIGH ANDREWS Internal Medicine Current PHONE: Unknown [place] has no Care Guidelines for this patient. Care History Medical/Surgical 05/27/2019 [facility] \R\- PATIENT HAS A INK JET OPERATOR DR BAZAN AT [facility]. Josie VISIT COUNT (12 MO.) 11 [facility] 2 [facility] Don (Benny Zapata) TOTAL 13 NOTE: Visits indicate total known visits. ED/UCC VISIT TRACKING (12 MO.) 10/09/2024 14:[address] [facility] TYPE: Emergency COMPLAINT: - CHEST PAIN [facility] DIAGNOSES: - Hypotension, unspecified - Weakness - Weakness 08/17/2024 22:26 [facility]: Emergency DIAGNOSES: - Contusion of left upper arm, initial encounter - Strain of muscle, fascia and tendon of other parts of biceps, left arm, initial encounter - Arm Injury 06/25/2024 07:22 [facility] [place] TYPE: Emergency COMPLAINT: - HIP PAIN 05/25/2024 22:08 [facility] [place] TYPE: Emergency COMPLAINT: - SHORT OF BREATH DIAGNOSES: - Allergy status to narcotic agent - Allergy status to other drugs, medicaments and biological substances - Allergy status to penicillin - Essential (primary) hypertension - Hormone replacement therapy - joint terminal attack controller (current) use of aspirin - Other forms of dyspnea - Other terminal gauger (current) drug therapy - Presence of cardiac pacemaker - Shortness of breath 03/04/2024 16:15 [facility] [place] TYPE: Emergency COMPLAINT: - LOW BLOOD PRESSURE DIAGNOSES: - Allergy status to narcotic agent - Allergy status to other drugs, medicaments and biological substances - Allergy status to penicillin - Essential (primary) hypertension - Hormone replacement therapy - Hypotension, unspecified - shelter (current) use of aspirin - Other half-way (current) drug therapy - Prediabetes - Sleep apnea, unspecified 02/14/2024 17:20 [facility] [place] TYPE: Emergency COMPLAINT: - TRAUMA ADULT DIAGNOSES: - Allergy status to narcotic agent - Allergy status to other drugs, medicaments and biological substances - Allergy status to penicillin - Contusion of right back wall of thorax, initial encounter - Essential (primary) hypertension - Fall from chair, initial encounter - joint terminal attack controller (current) use of antithrombotics/antiplatelets - Other terminal gauger (current) drug therapy - Pain in thoracic [...] initial encounter - Hormone replacement therapy - joint terminal attack controller (current) use of aspirin - Other half-way (current) drug therapy - Prediabetes - Presence [...] (primary) hypertension - Hormone replacement therapy - shelter (current) use of aspirin - Other terminal gauger (current) drug therapy - Prediabetes - Presence [...] (primary) hypertension - Hormone replacement therapy - shelter (current) use of aspirin - Nausea - [...] vascular devices and implants, initial encounter - shelter (current) use of aspirin - Other half-way (current) drug therapy - Right lower quadrant [...] aortic (bifurcation) graft (replacement), initial encounter - joint terminal attack controller (current) use of aspirin - Other terminal gauger (current) drug therapy - Presence of cardiac [...] (primary) hypertension - Hormone replacement therapy - shelter (current) use of antithrombotics/antiplatelets - shelter (current) use of aspirin - Other terminal gauger (current) drug therapy - Pain in right hip - Sleep apnea, unspecified INPATIENT VISIT TRACKING (12 MO.) 06/25/2024 13:[address] [facility] [place] TYPE: Medical Surgical COMPLAINT: - LEFT HIP FRACTURE DIAGNOSES: - Abdominal aortic aneurysm, without rupture, unspecified - Acute and chronic respiratory failure with hypoxia - Adverse effect of other opioids, initial encounter - Allergy status to narcotic agent - Allergy status to other drugs, medicaments and biological substances - Allergy status to penicillin - Atherosclerotic heart disease of [place] coronary artery without angina pectoris - Benign prostatic hyperplasia without lower urinary tract symptoms - Cardiac arrhythmia, unspecified - Chronic systolic (congestive) heart failure - Dependence on supplemental oxygen - Fall on same level from slipping, tripping and stumbling without subsequent striking against object, initial encounter - Fracture of unspecified part of neck of left femur, initial encounter for closed fracture - Hormone replacement therapy - Hypertensive heart disease with heart failure - Hypotension, unspecified - Hypothyroidism, unspecified - shelter (current) use of antithrombotics/antiplatelets - shelter (current) use of aspirin - Obstructive sleep apnea (adult) (pediatric) - Other specified disorders of urethra - Other toxic encephalopathy - Personal history of transient ischemic attack (TIA), and cerebral infarction without residual deficits - Pneumonia, unspecified organism - Presence of cardiac pacemaker - Presence of other vascular implants and grafts [id number]
[2024-10-09 15:26] LABS: BASOPHILS 0.9 % (0-2); EOSINOPHILS 1.3 % (0-6); HEMATOCRIT 38.3 % (35.0-50.0); HEMOGLOBIN 12.9 g/dL (12.0-18.0); LYMPHOCYTES 7.5 % (24-44); MCH 30.7 (27-36); MCHC 33.7 g/dl (30-36); MCV 91.2 fl (81-99); NEUTROPHILS 83.3 % (39-80); PLATELET COUNT 143 K/uL (140-440); RDW 17.9 (10.5-15.0)
[2024-10-09 15:57] LABS: ALBUMIN 3.7 g/dL (3.4-5.0); ALBUMIN/GLOBULIN RATIO 1.37 (1.1-2.4); ANION GAP 6.8 (7-21); BILIRUBIN, TOTAL 2.7 mg/dL (0.2-1.0); BUN/CREATININE RATIO 17.46 (6.0-28.6); CALCIUM 8.9 mg/dL (8.5-10.1); CREATININE, SERUM 1.26 mg/dL (0.70-1.30); MAGNESIUM 2.2 mg/dL (1.8-2.4); POTASSIUM 3.8 mmol/L (3.5-5.1); PROTEIN, TOTAL 6.4 g/dL (6.4-8.2)
[2024-10-09 18:50] VITALS: BP 103/55
--- NOTE | 2024-10-09 19:14 | EKG ---
[facility] [address] [place] [address] Signed AV dual-paced rhythm Biventricular pacemaker detected Abnormal ECG When compared with ECG of 28-JUN-2024 14:37, Vent. rate has decreased BY 5 BPM Confirmed by Yung Garcia MD ([id number]) on 10/09/2024 7:14:12 PM Electronically Signed By: YUNG GARCIA MD 10/09/241913 PATIENT NAME: EBERFRANCI MICHAEL Electrocardiogram DATE OF : 49 PHYSICIAN: YUNG GARCIA MD REPORT #: [id number] REPORT IS CONFIDENTIAL AND NOT TO BE RELEASED WITHOUT AUTHORIZATION
== END 2024-10-09 18:50 | disposition home or self-care (01) ==
LOC: ED 14:59
PROVIDERS: Emergency Medicine
DX: R07.89 Other chest pain (principal); S61.412A Laceration without foreign body of left hand, initial encounter; J96.10 Chronic respiratory failure, unspecified whether with hypoxia or hypercapnia; J44.9 Chronic obstructive pulmonary disease, unspecified; I11.0 Hypertensive heart disease with heart failure; I50.9 Heart failure, unspecified; G47.30 Sleep apnea, unspecified; E11.9 Type 2 diabetes mellitus without complications; E03.9 Hypothyroidism, unspecified; N40.0 Benign prostatic hyperplasia without lower urinary tract symptoms; K21.9 Gastro-esophageal reflux disease without esophagitis; K76.0 Fatty (change of) liver, not elsewhere classified; Z99.81 Dependence on supplemental oxygen; Z86.73 Personal history of transient ischemic attack (TIA), and cerebral infarction without residual deficits; Z95.810 Presence of automatic (implantable) cardiac defibrillator; Z95.5 Presence of coronary angioplasty implant and graft; Z88.5 Allergy status to narcotic agent; Z88.0 Allergy status to penicillin; Z88.8 Allergy status to other drugs, medicaments and biological substances; Z79.01 Long term (current) use of anticoagulants; Z79.890 Hormone replacement therapy; Z79.899 Other long term (current) drug therapy; W45.8XXA Other foreign body or object entering through skin, initial encounter
CPT/HCPCS: 36415; 71045; 80053; 83735; 84484; 85025; 93005; 93010; 99285-25

== ENCOUNTER 2024-11-02 05:02 | Emergency (ER) | payer MEDICARE, OTHER ==
[~2024-11-02] VITALS: Ht 177.8 cm; Wt 78.0 kg
--- OUTSIDE RECORDS SUMMARY | 2024-11-02 05:10 | XMS ---
PreManage Notification: FRANCI VELÁZQUEZ Security Stumper Feller Events No recent Security Events currently on file CRITERIA MET - 6 ED Visits in 6 Months - Group Notification - [facility] - 2 Visits in 30 Days CARE PROVIDERS KALEIGH ANDREWS Internal Medicine Current PHONE: Unknown [place] has no Care Guidelines for this patient. Care History Medical/Surgical 05/27/2019 [facility] \R\- PATIENT HAS A SUPERVISOR PIPE JOINTS DR BAZAN AT [facility]. Josie VISIT COUNT (12 MO.) 11 [facility] TOTAL 13 NOTE: Visits indicate total known visits. ED/UCC VISIT TRACKING (12 MO.) 11/02/2024 05:04 [facility] [place] TYPE: Emergency COMPLAINT: - HIP/SLEEP/BREATHING ISSUES 10/09/2024 14:59 [facility] [place] TYPE: Emergency COMPLAINT: - CHEST PAIN DIAGNOSES: - Allergy status to narcotic agent - Allergy status to other drugs, medicaments and biological substances - Allergy status to penicillin - Benign prostatic hyperplasia without lower urinary tract symptoms - Chest pain, unspecified - Chronic obstructive pulmonary disease, unspecified - Chronic respiratory failure, unspecified whether with hypoxia or hypercapnia - Dependence on supplemental oxygen - Fatty (change of) liver, not elsewhere classified - Gastro-esophageal reflux disease without esophagitis - Heart failure, unspecified - Hormone replacement therapy - Hypertensive heart disease with heart failure - Hypothyroidism, unspecified - Laceration without foreign body of left hand, initial encounter - intermodal truck driver (current) use of anticoagulants - Other chest pain - Other foreign body or object entering through skin, initial encounter - Other senior living (current) drug therapy - Personal history of transient ischemic attack (TIA), and cerebral infarction without residual deficits - Presence of automatic (implantable) cardiac defibrillator - Presence of coronary angioplasty implant and graft - Sleep apnea, unspecified - Type 2 diabetes mellitus without complications 09/16/2024 22:21 [facility] Benny BATES ([place]) TYPE: Emergency DIAGNOSES: - Hypotension, unspecified - Weakness - Weakness 08/17/2024 22:26 [facility] Benny BATES ([place]) TYPE: Emergency DIAGNOSES: - Contusion of left upper arm, initial encounter - Strain of muscle, fascia and tendon of other parts of biceps, left arm, initial encounter - Arm Injury 06/25/2024 07:22 [facility] [place] TYPE: Emergency COMPLAINT: - HIP PAIN 05/25/2024 22:08 [facility] [place] TYPE: Emergency COMPLAINT: - SHORT OF BREATH DIAGNOSES: - Allergy status to narcotic agent - Allergy status to other drugs, medicaments and biological substances - Allergy status to penicillin - Essential (primary) hypertension - Hormone replacement therapy - intermodal truck driver (current) use of aspirin - Other forms of dyspnea - Other senior living (current) drug therapy - Presence of cardiac pacemaker - Shortness of breath 03/04/2024 16:15 [facility] [place] TYPE: Emergency COMPLAINT: - LOW BLOOD PRESSURE DIAGNOSES: - Allergy status to narcotic agent - Allergy status to other drugs, medicaments and biological substances - Allergy status to penicillin - Essential (primary) hypertension - Hormone replacement therapy - Hypotension, unspecified - intermodal truck driver (current) use of aspirin - Other senior living (current) drug therapy - Prediabetes - Sleep apnea, unspecified 02/14/2024 17:20 [facility] [place] TYPE: Emergency COMPLAINT: - TRAUMA ADULT DIAGNOSES: - Allergy status to narcotic agent - Allergy status to other drugs, medicaments and biological substances - Allergy status to penicillin - Contusion of right back wall of thorax, initial encounter - Essential (primary) hypertension - Fall from chair, initial encounter - half-way (current) use of antithrombotics/antiplatelets - Other senior living (current) drug therapy - Pain in thoracic [...] initial encounter - Hormone replacement therapy - half-way (current) use of aspirin - Other rodent exterminator (current) drug therapy - Prediabetes - Presence [...] (primary) hypertension - Hormone replacement therapy - intermodal truck driver (current) use of aspirin - Other senior living (current) drug therapy - Prediabetes - Presence [...] (primary) hypertension - Hormone replacement therapy - intermodal truck driver (current) use of aspirin - Nausea - [...] vascular devices and implants, initial encounter - half-way (current) use of aspirin - Other rodent exterminator (current) drug therapy - Right lower quadrant [...] aortic (bifurcation) graft (replacement), initial encounter - intermodal truck driver (current) use of aspirin - Other senior living (current) drug therapy - Presence of cardiac pacemaker - Right lower quadrant pain INPATIENT VISIT TRACKING (12 MO.) 06/25/2024 13:13 [...] to penicillin - Atherosclerotic heart disease of [place] coronary artery without angina pectoris - Benign [...] - Hypotension, unspecified - Hypothyroidism, unspecified - half-way (current) use of antithrombotics/antiplatelets - half-way (current) use of aspirin - Obstructive sleep apnea (adult) (pediatric) - Other specified disorders of urethra - Other toxic encephalopathy - Personal history of transient ischemic attack (TIA), and cerebral infarction without residual deficits - Pneumonia, unspecified organism - Presence of cardiac pacemaker - Presence of other vascular implants and grafts [id number]
[2024-11-02] MEDS ORDERED: SPIRONOLACTONE25 MG PO (05:26)
[2024-11-02] MEDS ORDERED: FUROSEMIDE40 MG PO (05:26)
[2024-11-02] MEDS ORDERED: LASIX20 MG PO (05:46)
[2024-11-02] MEDS ORDERED: VENTOLIN HFA18 GM INH (05:46)
[2024-11-02 05:53] VITALS: BP 138/87
== END 2024-11-02 05:54 | disposition home or self-care (01) ==
LOC: ED 05:02
DX: I11.0 Hypertensive heart disease with heart failure (principal); I50.9 Heart failure, unspecified; G47.30 Sleep apnea, unspecified; Z79.82 Long term (current) use of aspirin; Z79.899 Other long term (current) drug therapy; Z79.01 Long term (current) use of anticoagulants; Z88.5 Allergy status to narcotic agent; Z88.8 Allergy status to other drugs, medicaments and biological substances; Z88.0 Allergy status to penicillin
CPT/HCPCS: 71045; 99284-25

== ENCOUNTER 2024-11-05 19:31 | Inpatient (IN) | payer MEDICARE, OTHER ==
[~2024-11-05] VITALS: Ht 177.8 cm; Wt 79.0 kg
[~2024-11-05 19:31] MED LIST changes: +FUROSEMIDE40 MG PO; +SPIRONOLACTONE25 MG PO; +VENTOLIN HFA18 GM INH
--- OUTSIDE RECORDS SUMMARY | 2024-11-05 19:38 | XMS ---
PreManage Notification: FRANCI VELÁZQUEZ Security Account Support Associate Events No recent Security Events currently on file CRITERIA MET - 6 ED Visits in 6 Months - Group Notification - [facility] - 2 Visits in 30 Days CARE PROVIDERS KALEIGH ANDREWS Internal Medicine Current PHONE: Unknown [place] has no Care Guidelines for this patient. Care History Medical/Surgical 05/27/2019 [facility] \R\- PATIENT HAS A ACQUISITION CONSULTANT DR BAZAN AT [facility]. Josie VISIT COUNT (12 MO.) 12 [facility] 2 [facility] Don (Benny Zapata) TOTAL 14 NOTE: Visits indicate total known visits. ED/UCC VISIT TRACKING (12 MO.) 11/05/2024 19:32 [facility] [place] TYPE: Emergency COMPLAINT: - BACK PAIN 11/02/2024 05:04 [facility] [place] TYPE: Emergency COMPLAINT: - HIP/SLEEP/BREATHING ISSUES DIAGNOSES: - Allergy status to narcotic agent - Allergy status to other drugs, medicaments and biological substances - Allergy status to penicillin - Heart failure, unspecified - Hypertensive heart disease with heart failure - intermediate teacher (current) use of anticoagulants - USP (current) use of aspirin - Other equipment operator intermodal yard (current) drug therapy - Shortness of breath - Sleep apnea, unspecified 10/09/2024 14:[address] [facility] [place] TYPE: Emergency [...] body of left hand, initial encounter - USP (current) use of anticoagulants - Other chest pain - Other foreign body or object entering through skin, initial encounter - Other fdc (current) drug therapy - Personal history of transient ischemic attack (TIA), and cerebral infarction without residual deficits - Presence of automatic (implantable) cardiac defibrillator - Presence of coronary angioplasty implant and graft - Sleep apnea, unspecified - Type 2 diabetes mellitus without complications 09/16/2024 22:21 [facility] Benny BATES ([place]) TYPE: Emergency DIAGNOSES: - Hypotension, unspecified - Weakness - Weakness 08/17/2024 22:26 [facility] Benny BATES (Benny Zapata) TYPE: Emergency DIAGNOSES: - [...] (primary) hypertension - Hormone replacement therapy - USP (current) use of aspirin - Other forms of dyspnea - Other fdc (current) drug therapy - Presence of cardiac pacemaker - Shortness of breath 03/04/2024 16:15 [facility] [place] TYPE: Emergency COMPLAINT: - LOW BLOOD PRESSURE DIAGNOSES: - Allergy status to narcotic agent - Allergy status to other drugs, medicaments and biological substances - Allergy status to penicillin - Essential (primary) hypertension - Hormone replacement therapy - Hypotension, unspecified - intermediate teacher (current) use of aspirin - Other fdc (current) drug therapy - Prediabetes - Sleep apnea, unspecified 02/14/2024 17:20 [facility] [place] TYPE: Emergency COMPLAINT: - TRAUMA ADULT DIAGNOSES: - Allergy status to narcotic agent - Allergy status to other drugs, medicaments and biological substances - Allergy status to penicillin - Contusion of right back wall of thorax, initial encounter - Essential (primary) hypertension - Fall from chair, initial encounter - USP (current) use of antithrombotics/antiplatelets - Other equipment operator intermodal yard (current) drug therapy - Pain in thoracic [...] initial encounter - Hormone replacement therapy - USP (current) use of aspirin - Other equipment operator intermodal yard (current) drug therapy - Prediabetes - Presence [...] (primary) hypertension - Hormone replacement therapy - intermediate teacher (current) use of aspirin - Other equipment operator intermodal yard (current) drug therapy - Prediabetes - Presence [...] (primary) hypertension - Hormone replacement therapy - USP (current) use of aspirin - Nausea - [...] vascular devices and implants, initial encounter - USP (current) use of aspirin - Other equipment operator intermodal yard (current) drug therapy - Right lower quadrant [...] aortic (bifurcation) graft (replacement), initial encounter - USP (current) use of aspirin - Other equipment operator intermodal yard (current) drug therapy - Presence of cardiac pacemaker - Right lower quadrant pain INPATIENT VISIT TRACKING (12 MO.) 06/25/2024 13:13 [facility] [place] TYPE: Medical Surgical COMPLAINT: - LEFT HIP FRACTURE DIAGNOSES: - Abdominal aortic aneurysm, without rupture, unspecified - Acute and chronic respiratory failure with hypoxia - Adverse effect of other opioids, initial encounter - Allergy status to narcotic agent - Allergy status to other drugs, medicaments and biological substances - Allergy status to penicillin - Atherosclerotic heart disease of [place] coronary artery without angina pectoris - Benign [...] - Hypotension, unspecified - Hypothyroidism, unspecified - intermediate teacher (current) use of antithrombotics/antiplatelets - intermediate teacher (current) use of aspirin - Obstructive sleep apnea (adult) (pediatric) - Other specified disorders of urethra - Other toxic encephalopathy - Personal history of transient ischemic attack (TIA), and cerebral infarction without residual deficits - Pneumonia, unspecified organism - Presence of cardiac pacemaker - Presence of other vascular implants and grafts [email or web address]
[2024-11-05 21:13] LABS: BILIRUBIN, URINE NEGATIVE (negative); BLOOD/HGB, URINE NEGATIVE (Negative); KETONE, URINE NEGATIVE (Negative); LEUK ESTERASE, URINE NEGATIVE (negative); NITRITE, URINE NEGATIVE (negative)
[2024-11-05] MEDS ORDERED: ondansetron HCL 4 MG/2 ML VIAL IV ONE (21:45)
[2024-11-05 22:23] LABS: EOSINOPHILS 1.4 % (0-6); HEMATOCRIT 37.3 % (35.0-50.0); HEMOGLOBIN 12.8 g/dL (12.0-18.0); LYMPHOCYTES 11.7 % (24-44); MCH 30.9 (27-36); MCHC 34.4 g/dl (30-36); MCV 89.8 fl (81-99); MONOCYTES 8.6 % (0-12); NEUTROPHILS 77.3 % (39-80); PLATELET COUNT 174 K/uL (140-440); RBC 4.16 M/ul (4.3-5.7); RDW 17.5 (10.5-15.0)
[2024-11-05] MEDS ORDERED: KETOROLAC TROMETHAMINE 15 MG/ML VIAL IM ONE (22:30)
[2024-11-05 22:33] LABS: ALBUMIN 3.4 g/dL (3.4-5.0); ALBUMIN/GLOBULIN RATIO 1.42 (1.1-2.4); ANION GAP 5.7 (7-21); BILIRUBIN, TOTAL 2.2 mg/dL (0.2-1.0); CALCIUM 8.4 mg/dL (8.5-10.1); CREATININE, SERUM 1.4 mg/dL (0.70-1.30); POTASSIUM 3.7 mmol/L (3.5-5.1); PROTEIN, TOTAL 5.8 g/dL (6.4-8.2)
[2024-11-05 22:40] LABS: AMPHETAMINES, URINE NEGATIVE (NEGATIVE); BARBITURATES, URINE NEGATIVE (NEGATIVE); BENZODIAZEPINE, URINE NEGATIVE (NEGATIVE); BUPRENORPHINE, URINE NEGATIVE (NEGATIVE); CANNABINOID, URINE NEGATIVE (NEGATIVE); COCAINE, URINE NEGATIVE (NEGATIVE); ECSTASY, URINE NEGATIVE (NEGATIVE); FENTANYL, URINE NEGATIVE (NEGATIVE); METHADONE, URINE NEGATIVE (NEGATIVE); OPIATES, URINE NEGATIVE (NEGATIVE); OXYCODONE, URINE NEGATIVE (NEGATIVE); PHENCYCLIDINE, URINE NEGATIVE (NEGATIVE)
[2024-11-05] MEDS ORDERED: KETOROLAC TROMETHAMINE 15 MG/ML VIAL IV ONE (22:45)
[2024-11-06] VITALS (18 sets, daily range): BP systolic 78–109; BP diastolic 44–59
[2024-11-06] MEDS ORDERED: ACETAMINOPHEN 325 MG TAB PO PRN ×2 (02:45→10:00)
[2024-11-06] MEDS ORDERED: FUROSEMIDE 40 MG/4 ML VIAL IV ONE (02:45)
[2024-11-06] MEDS ORDERED: ondansetron HCL 4 MG/2 ML VIAL IV PRN ×2 (02:45→10:00)
[2024-11-06] MEDS ORDERED: FUROSEMIDE 20 MG/2 ML VIAL IV ONE (03:00)
--- NOTE | 2024-11-06 03:30 | NUR ---
pt ARRIVED TO THE FLOOR VIA STRETCHER. pt ABLE TO TRANSFER TO THE BED VIA SBA. VITAL SIGN AND ASSESSMENT DONE. pt ON 2LNC DUE TO pt DESATTING WHILE HE SLEEPS. pt HAS O2 AT HOME FOR DESATTING AT NIGHT. WATER REFRESHED. pt DENIES ANY OTHER NEEDS AT THIS TIME. CALL LIGHT WITHIN REACH.
--- NOTE | 2024-11-06 04:10 | NUR ---
pt C/O 12/27 PAIN. PRN PAIN MED ADMINISTERED. ICE PACK GIVEN. WARM BLANKET GIVEN. pt DENIES ANY OTHER NEEDS AT THIS TIME. CALL LIGHT WITHIN REACH.
[2024-11-06 05:39] LABS: BASOPHILS 1.4 % (0-2); EOSINOPHILS 1.5 % (0-6); HEMATOCRIT 37.7 % (35.0-50.0); HEMOGLOBIN 13.1 g/dL (12.0-18.0); MCH 31.1 (27-36); MCHC 34.7 g/dl (30-36); MCV 89.6 fl (81-99); MONOCYTES 7.5 % (0-12); NEUTROPHILS 78.6 % (39-80); PLATELET COUNT 147 K/uL (140-440); RBC 4.21 M/ul (4.3-5.7); RDW 17.3 (10.5-15.0)
--- NOTE | 2024-11-06 05:55 | NUR ---
APPLICATION CHEMIST OBTAINED VITALS AND I&O. PT STATES NO NEEDS AT THIS TIME. CALL LIGHT WITHIN REACH.
[2024-11-06 06:00] LABS: ALBUMIN 3.3 g/dL (3.4-5.0); ALBUMIN/GLOBULIN RATIO 1.38 (1.1-2.4); ANION GAP 6.9 (7-21); BUN/CREATININE RATIO 15.5 (6.0-28.6); CALCIUM 8.4 mg/dL (8.5-10.1); CREATININE, SERUM 1.29 mg/dL (0.70-1.30); POTASSIUM 3.9 mmol/L (3.5-5.1); PROTEIN, TOTAL 5.7 g/dL (6.4-8.2)
--- NOTE | 2024-11-06 07:43 | NUR ---
REPORT RECEIVED FROM CASINO OPERATIONS SUPERVISOR RN. PATIENT RESTING IN BED. DENEIS ANY NEEDS AT THIS TIME. PATIENT REPORTS IT IS OKAY TO GIVE UPDATE TO PATIENT'S NIECE. CALL LIGHT WITHIN REACH.
--- NOTE | 2024-11-06 08:20 | NUR ---
IN TO ROUND ON PATIENT. RESTING IN BED. OXYGEN IN PLACE. CPOX READINGS WNL. RESPIRATIONS EVEN AND UNLABORED. NO NEEDS AT THIS TIME. CALL LIGHT WITHIN REACH.
--- NOTE | 2024-11-06 09:25 | NUR ---
IN ROOM TO ASSESS PATIENT. URINAL EMPTIED. PATIENT REPORTS PAIN IS "MUCH BETTER" AT THIS TIME. LUNGS CTA, BOWEL TONES ACTIVE X 4. HEART SOUNDS REGULAR. NOTED BLLE EDEMA +3. PATIENT ASSISTED WITH BREAKFAST SET UP AND REPOSITIONED IN BED. DENIES ANY FURTHER NEEDS. CALL LIGHT WITHIN REACH.
--- NOTE | 2024-11-06 09:35 | NUR ---
MD IN ROOM WITH PATIENT AT THIS TIME.
[2024-11-06] MEDS ORDERED: ASPIRIN 81 MG CHEW PO SCH (09:52)
[2024-11-06] MEDS ORDERED: LEVOTHYROXINE SODIUM 100 MCG TAB PO SCH (09:54)
[2024-11-06] MEDS ORDERED: METOPROLOL SUCCINATE 25 MG TABCR PO SCH (09:54)
[2024-11-06] MEDS ORDERED: TAMSULOSIN HCL 0.4 MG CAP PO SCH (09:55)
[2024-11-06] MEDS ORDERED: IBUPROFEN 400 MG TAB PO PRN (10:00)
[2024-11-06] MEDS ORDERED: FUROSEMIDE 40 MG/4 ML VIAL IV SCH (10:03)
--- NOTE | 2024-11-06 10:05 | EKG ---
[facility] [address] [facility] [place] [address] Signed AV dual-paced rhythm Biventricular pacemaker detected Abnormal ECG When compared with ECG of 09-OCT-2024 15:02, No significant change was found Confirmed by Yung Garcia MD ([id number]) on 11/06/2024 10:05:17 AM Electronically Signed By: YUNG GARCIA MD 11/06/24 1005 PATIENT NAME: GARTHChadFRANCI Electrocardiogram DATE OF : 49 PHYSICIAN: YUNG GARCIA MD REPORT #: [id number] REPORT IS CONFIDENTIAL AND NOT TO BE RELEASED WITHOUT AUTHORIZATION
[2024-11-06] MEDS ORDERED: NYSTATIN15 G2 TOP (10:09)
[2024-11-06] MEDS ORDERED: POTASSIUM CHLORIDE 10 MEQ TABCR PO ONE (10:15)
[2024-11-06] MEDS ORDERED: LIDOCAINE HCL 4% 1 EACH PATCH TD SCH (10:37)
--- NOTE | 2024-11-06 10:40 | NUR ---
PT IN WITH PATIENT AT THIS TIME. PATIENT SITTING ON EDGE OF BED. NOTED BPS'S TO BE LOW, ORTHOSTATIC BP'S LOWER. PATIENT IN INCREASED AMOUNT OF PAIN. REPORTS FEELING DIZZY WHILE SITTING UP. RN DISCUSSED AM MEDICATIONS WITH MD. MD GAVE VERBAL ORDERS TO HOLD AM MEDICATIONS. SEE MAR.
[2024-11-06] MEDS ORDERED: SODIUM CHLORIDE 0.9% 500 ML IV PRN (10:45)
--- NOTE | 2024-11-06 10:55 | NUR ---
PATIENT REQUESTS FOR ME TO COMEBACK AT A LATER TIME. PATIENT PAINFUL FROM PT. WILL CHECK IN AT A LATER TIME.
--- NOTE | 2024-11-06 11:17 | NUR ---
MD IN TO SEE PATIENT. PATIENT PAIN LEVEL CONTINUES TO INCREASE. GIVEN PRN FOR PAIN AND LIDOCAINE PATCH PLACED TO LUMBAR BACK. BP IMPROVING. NO FURTHER NEEDS. CALL LIGHT WITHIN REACH. BED ALARM ON.
[2024-11-06] MEDS ORDERED: GABAPENTIN 300 MG CAP PO SCH (11:30)
[2024-11-06] MEDS ORDERED: PHARMACY RENAL DOSE ADJUSTMENT 1 DOSE MISC PO SCH (12:00)
--- NOTE | 2024-11-06 12:20 | NUR ---
IN TO ROUND ON PATIENT. RESTING IN BED WITH NO NEEDS AT THIS TIME. CALL LIGHT WITHIN REACH.
--- NOTE | 2024-11-06 14:00 | NUR ---
INTO SEE PATIENT. PERSONAL INFORMATION REVIEWED AND UPDATED. PATIENT LIVES IN AN APARTMENT THAT HIS FRIEND RENTS TO HIM. HE PAYS WHAT HE CAN AND GIVES HIM 375 MONTHLY. THE APARTMENT HAS 15 STEPS TO GET INTO. PATIENT STATES HE IS ABLE TO DO IT WITH HIS CANE AND HE ALSO HAS A WALKER. HE HAS OXYGEN HE WEARS AT NIGHT 4 LITERS. HE BOUGHT HIS OWN CONCENTRATOR. HE LIVES ALONE. HAS TWO CHILDERN BUT THEY DO NOT LIVE IN TOWN. HE HAS A NIECE THAT SEES HIM OCCASIONALLY. TALKED WITH HIM ABOUT STARTING THE PROCESS OF [employer] MEDICAID. PATIENT IS AWARE OF [employer]ICA[employer] AND HAS TALKED TO [place]IN RIVERA AT [facility] BUT STATES HE MAKES TO MUCH AND HE DOES NOT WANT TO END UP IN AN ASSISTED LIVING AND HAVE THE STATE TAKE ALL OF HIS MONEY. HE STILL LIKES TO GO TO [place] THREE DAYS A WEEK FOR ENTERTAINMENT. 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 GAVE PATIENT CAREGIVERS PHAMPLET AND LET HIM KNOW HE WOULD HAVE TO PAY FOR THEM. AT THIS TIME THE PATIENT WOULD LIKE TO GO HOME AT DISCHARGE.
--- NOTE | 2024-11-06 14:05 | NUR ---
RN NOTIFIED OF PATIENT " SHAKING" BY VP SITE STAFF. UPON ASSESSMENT PATIENT NOTED TO BE SLIGHTLY SHAKING ON AND OFF. PATIENT C/O HAVING LEFT CHEST "DULLNESS." VSS, BP NOTED TO BE LOWER. PATIENT DENIES ANY SOB DENIES FEELINGS OF SHARP CHEST PAIN. NEURO ASSESSMENT WNL. BLOOD SUGAR CHECK AND WNL. MD NOTIFIED.
--- NOTE | 2024-11-06 14:12 | NUR ---
MD IN ROOM WITH PATIENT AT THIS TIME. ORDERS FOR EKG.
--- NOTE | 2024-11-06 14:49 | NUR ---
INCREASED O2 TO 2 LPM. 89% ON 1 LPM.
--- NOTE | 2024-11-06 15:34 | NUR ---
PATIENT RESTING IN BED AT THIS TIME. DENIES ANY NEEDS. CALL LIGHT WITHIN REACH.
--- NOTE | 2024-11-06 15:42 | NUR ---
WALKED BY PATIENT'S ROOM. PATIENT IS SLEEPING.
--- NOTE | 2024-11-06 18:11 | NUR ---
PATIENT VOIDED IN URINAL DARK NILS URINE. PATIENT REPOSITIONED IN BED. REPORTS INCREASED PAIN. PRNS ADMINSTERED. NO FURTHER NEEDS. SITTING UP IN BED EATING DINNER. CALL LIGHT WITHIN REACH.
--- NOTE | 2024-11-06 19:10 | NUR ---
REPORT RECEIVED FROM ADRIANNA ALLISON. pt RESTING IN THE BED. BOARD UPDATED. pt DENIES ANY OTHER NEEDS AT THIS TIME. CALL LIGHT WITHIN REACH.
--- NOTE | 2024-11-06 20:24 | NUR ---
ARYAN IS ASLEEP ON A 2L NC. HOB IS AT 30 DEGREES
[2024-11-06] MEDS ORDERED: CEFTRIAXONE SODIUM 1 GM VIAL IV ONE (20:46)
--- NOTE | 2024-11-06 20:46 | NUR ---
TINSEL MACHINE OPERATOR OBTAINED VITALS AND I&O. PT STATES NO NEEDS AT THIS TIME. CALL LIGHT WITHIN REACH.
[2024-11-06] MEDS ORDERED: LACTATED RINGER'S 1,000 ML IV SCH (21:00)
[2024-11-06] MEDS ORDERED: AZITHROMYCIN 250 MG TAB PO SCH (21:00)
[2024-11-06] MEDS ORDERED: CEFTRIAXONE SODIUM 1 GM in SODIUM CHLORIDE 0.9% 100 ML IV SCH (21:00)
[2024-11-06] MEDS ORDERED: AMIODARONE HCL 200 MG TAB PO SCH (21:00)
[2024-11-06] MEDS ORDERED: LACTULOSE 20 GM/30 ML CUP PO SCH (21:00)
[2024-11-06] MEDS ORDERED: CLOPIDOGREL BISULFATE 75 MG TAB PO SCH (21:00)
[2024-11-06] MEDS ORDERED: LIDOCAINE PATCH REMOVAL 1 EA TD SCH (21:00)
--- NOTE | 2024-11-06 21:10 | NUR ---
ASSESSMENT AND VITAL SIGNS DONE. pt BP 86/45. MD AWARE AND CAME TO . BP RECHECKED WITH SIMILAR RESULTS. MD ORDERED BOLUS AND OK HOLDING pt'S AMIODARONE. pt LETHARTHIG AT THIS TIME. pt WAKES TO VOICE AND STATES THAT HE IS TIRED. pt HAS PITTING EDEMA IN HIS BILAT LE. SCHEDULED MEDS ADMINISTERED. pt DENIES REPOSITIONING. pt ABLE TO STAY AWAKE AFTER A STERNAL RUB TO TAKE HIS MEDICATIONS. pt DENIES ANY OTHER NEEDS AT THIS TIME. CALL LIGHT WITHIN REACH.
[2024-11-06] MEDS ORDERED: NOREPINEPHRINE BITARTRATE 250 ML IV SCH (23:45)
--- NOTE | 2024-11-06 23:45 | NUR ---
MD CALLED ABOUT pt BP BEING 87/44 (54). MD PUT IN ORDERS FOR TRANSFER TO CCU. pt STILL WAKES TO VOICE AND TOUCH. pt DENIES AND OTHER NEEDS OTHER NEEDS AT THIS TIME. NO CRACKLES IN THE LUNGS. BILAT LE 1-2+ PITTING EDEMA. CALL LIGHT WITHIN REACH. pt TRANSFERED TO CCU AND REPORT GIVEN TO TATY ALLISON.
[2024-11-07] VITALS (40 sets, daily range): BP systolic 87–120; BP diastolic 44–97
[2024-11-07] MEDS ORDERED: ALBUTEROL SULFATE 0.083% 3 ML VIAL INH PRN (00:15)
--- NOTE | 2024-11-07 00:30 | NUR ---
GCS 15, A&O X4. PT LUNGS CLEAR IN ALL LOBES AND DIM IN LOWER LOBES. CMS INTACT. ABD SOFT, NONTENDER, BOWEL TONES ACTIVE. HEART RATE PACED AT 60. SKIN IS DRY WITH SCALING ON BLE. IV WNL. NEW IV PLACED IN LFA. PT IS ANXIOUS. PT APPEARS TO BE SHAKING AND GROANING BUT STOPS WHEN THE RN IS NOT IN THE ROOM THEN STARTS AGAIN WHEN RN IS IN THE ROOM. BLE HAVE 2+ PITTING EDEMA. PT DECLINES TO WEAR SCDs AT THIS TIME, EDUCATION PROVIDED. PT DENIES LIGHTHEADEDNESS OR NAUSEA. SNACK AND ICE WATER PROVIDED. PT REPOSITIONED. PT STATES NO OTHER NEEDSA TH TIME. CALL LIGHT IN REACH.
--- NOTE | 2024-11-07 01:00 | NUR ---
PT STATES HE HAS 8/10 BACK PAIN, PRN PAIN MED PROVIDED. PT OFFERED URINAL AT THIS TIME, DECLINES. CALL LIGHT IN REACH.
--- NOTE | 2024-11-07 02:03 | NUR ---
PT BP BELOW 65 MAP GOAL, NOREPI STARTED AT 1 MCG/MIN. PT RESTING WITH EYES CLOSED. RR EVEN, UNLABORED. CALL LIGHT IN REACH.
--- NOTE | 2024-11-07 03:29 | NUR ---
PT RESTING IN BED, EYES CLOSED. RR EVEN, UNLABORED. IV MEDS INFUSING . CALL LIGHT IN REACH.
--- NOTE | 2024-11-07 03:35 | NUR ---
PT MAP LESS THAN 65, NOREPI TITRATED TO 3 MCG/MIN. CALL LIGHT IN REACH.
--- NOTE | 2024-11-07 04:20 | NUR ---
VS COMPLETED. PT USED URINAL, FRESH WATER PROVIDED. PT STATES BACK PAIN IS 6/10, PRN PAIN MED PROVIDED. PT KEEPS ASKING WHY HE IS SHAKING SO MUCH. RN EXPLAINED THAT HE ONLY SHAKES WHEN HE IS AWAKE AND OFFERS HIM A WARM BLANKET AND SNACK. PT NO LONGER SHAKES WHEN DISTRACTED WITH SNACK. GCS 15, A & O X4. IVs WNL. NOREPI TITRATED DOWN TO 2MCG/MIN FOR A MAP OF 78. PT GOWN AND UNDERWEAR CHANGED, PT REPOSITIONED. LUNGS CLEAR IN ALL LOBES BUT DIM IN LOWER LOBES. SACRUM HAS A STAGE 2 PRESSURE WOUND, CLEANED AND COVERED WITH FOAM DRESSING AND PT EDUCATED THAT WE NEED TO MOVE HIM OFF HIS BACK AT TIMES AND TO START GETTING UP IN TO THE CHAIR IF POSSIBLE. PT VERBALIZES UNDERSTANDING. ABD SOFT, NONTENDER, BOWEL TONES ACTIVE. HR PACED AT 63. CMS INTACT. PT ABLE TO ASSIST IN MOVING HIMSELF SIDE TO SIDE BUT OFTEN MOVES HIMSELF BACK TO HIS BACK WITH HEAD ELEVATED. PILLOWS USED TO KEEP HIM ON THE RIGHT SIDE AT THIS TIME. PT STATES NO OTHER NEEDS. CALL LIGHT IN REACH.
[2024-11-07 05:21] LABS: BASOPHILS 0.8 % (0-2); EOSINOPHILS 1.2 % (0-6); HEMATOCRIT 36.6 % (35.0-50.0); HEMOGLOBIN 12.4 g/dL (12.0-18.0); LYMPHOCYTES 10.6 % (24-44); MCH 30.9 (27-36); MONOCYTES 7.5 % (0-12); NEUTROPHILS 79.9 % (39-80); PLATELET COUNT 153 K/uL (140-440); RBC 4.02 M/ul (4.3-5.7)
[2024-11-07 05:31] LABS: ANION GAP 3.5 (7-21); BUN/CREATININE RATIO 19.04 (6.0-28.6); CALCIUM 8.2 mg/dL (8.5-10.1); CREATININE, SERUM 1.05 mg/dL (0.70-1.30); MAGNESIUM 2.1 mg/dL (1.8-2.4); POTASSIUM 4.5 mmol/L (3.5-5.1)
--- NOTE | 2024-11-07 06:10 | NUR ---
PT RESTING IN BED, EYES CLOSED. NO SHAKING NOTED. CALL LIGHT IN REACH.
--- NOTE | 2024-11-07 06:50 | NUR ---
PT RESTING IN BED, EYES CLOSED. RR EVEN, UNLABORED. NOREPI REMAINS @ 2MCG/MIN TO MAINTAIN MAP OVER 65. CALL LIGHT IN REACH.
--- NOTE | 2024-11-07 07:45 | NUR ---
RN IN ROOM TO RESPOND TO CALL LIGHT - PT REQUESTS TO SIT ON EDGE OF BED TO URINATE USING URINAL. PT IMPULSIVE TO SIT ON EDGE OF BED WITHOUT HELP FROM RN, MOVING ALL EXTREMETIES IN CHAOTIC MOVEMENT NEGLECTING AWARENESS OF CORDS/LINES. PT RATES PAIN 5/10 IN BACK AFTER THIS, DENIES NEED FOR PAIN MEDICATION AT THIS TIME. NOREPI INFUSING INTO LEFT WRIST IV SITE, WNL, CURRENTLY AT 2MCG/MIN TO SUSTAIN MAP >65. 2L O2 VIA NC IN PLACE. PT ABLE TO URINATE 20ML URINE. AT BEDSIDE TO ROUND. CURRENT POC DISCUSSED, ALL QUESTIONS ANSWERED.
[2024-11-07] MEDS ORDERED: LACTATED RINGER'S 1,000 ML IV ONE (08:15)
--- NOTE | 2024-11-07 08:16 | NUR ---
echo study in progress
[2024-11-07] MEDS ORDERED: ENOXAPARIN SODIUM 40 MG/0.4 ML SYR SUB-Q SCH (09:00)
--- NOTE | 2024-11-07 09:00 | NUR ---
PT/OT SESSION IN PROGRESS
--- NOTE | 2024-11-07 09:48 | NUR ---
INTO SEE PATIENT. PATIENT SITTING IN CHAIR EATING BREAKFAST. HE DENIES ANY CM NEEDS AT THIS TIME.
--- NOTE | 2024-11-07 09:57 | NUR ---
PT UP TO CHAIR AFTER PT/OT SESSION - ABLE TO STAND USING WALKER AND TRANSFER TO CHAIR, GAIT BELT AND CGA. PT DEMONSTRATING TRANSIENT JERKS THAT INTERFERE WITH TRANSFER AND SITTING ON EDGE OF BED BUT RESOLVE SPONTANEOUS AND WHEN PT IS PREOCCUPIED WITH URINAL OR EATING. CHAIR WAFFLE AND ALARM UNDER PT. VOID IN URINAL OF 150ML. IV FLUID BOLUS INFUSING - NOREPI ON STANDBY AT THIS TIME. CONTINUING TO MONITOR BP CLOSELY ON MONITOR. 02 NOT NEEDED WHILE IN UPRIGHT AWAKE POSITION. 100% BREAKFAST EATEN. CALL LIGHT IN REACH.
--- NOTE | 2024-11-07 10:14 | NUR ---
MED REC COMPLETE
--- NOTE | 2024-11-07 10:17 | NUR ---
BOLUS COMPLETE - NOREPI REMAINS ON STANDBY. PT SITTING IN CHAIR LOOKING AT CELL PHONE. CALL LIGHT IN LAP.
--- NOTE | 2024-11-07 11:04 | NUR ---
PT ASSISTED BACK TO BED PER REQUEST - PT STANDS AND USES WALKER TO PIVOT TRANSFER TO BED FROM CHAIR. CONTACT GAURD AND VERBAL CUING ONLY. PT LIFTS OWN LEGS INTO BED AND REPOSISTIONS SELF. BP REMAINS STABLE, NOREPI REMAINS IN STANDBY. SCD'S IN PLACE. CALL LIGHT IN LAP AND BED ALARM ON.
--- NOTE | 2024-11-07 11:16 | NUR ---
VISITED DURING SPIRITUAL CARE ROUNDS. PT APPEARED TO BE SLEEPING. DID NOT DISTURB. PROVIDED PRAYER.
--- NOTE | 2024-11-07 11:48 | EKG ---
[facility] [address] [facility] [place], [place] [address] Signed AV dual-paced rhythm Biventricular pacemaker detected Abnormal ECG When compared with ECG of 05-NOV-2024 23:29, No significant change was found Confirmed by Elenita Garcia MD ([id number]) on 11/07/2024 11:48:40 AM Electronically Signed By: ELENITA GARCIA MD 11/07/24 1148 PATIENT NAME: FRANCI VELÁZQUEZ Electrocardiogram DATE OF : 49 PHYSICIAN: ELENITA GARCIA MD REPORT #: [id number] REPORT IS CONFIDENTIAL AND NOT TO BE RELEASED WITHOUT AUTHORIZATION
--- NOTE | 2024-11-07 11:59 | NUR ---
PT RESTING IN BED WITH EYES CLOSED, HOB ELEVATED. BP STABLE WITHOUT NOREPI AT THIS TIME. CALL LIGHT IN REACH.
--- NOTE | 2024-11-07 12:42 | NUR ---
PT WAKES EASILY TO TOUCH/SOUND. REPOSISTIONED IN BED TO EAT LUNCH. PT REFUSES TO GET UP TO CHAIR TO EAT WHEN ASKED. CALL LIGHT AT SIDE, TABLE IN FRONT OF PT. BED ALARM ON.
--- NOTE | 2024-11-07 13:33 | NUR ---
100% LUNCH EATEN, PT REQUESTS TO GO BACK TO SLEEP. RATES PAIN 4 OR 5/10 AND DENIES PAIN MEDICATION AT THIS TIME. VS STABLE. CONCENTRATED URINE VOIDED IN URINAL. LUNGS SOUNDS CLEAR POST BOLUS. CALL LIGHT IN REACH. TABLE AT SIDE, BED ALARM ON.
--- NOTE | 2024-11-07 14:56 | NUR ---
RN IN ROOM TO ADDRESS BED ALARM - PT ATTEMPTING TO SIT ON EDGE OF BED. PT NOT WANTING TO GET TO CHAIR TO SIT UP AND ULTIMATLEY DECIDES TO LAY BACK DOWN. PILLOWS PLACED ON RIGHT SIDE TO SUPPORT PT TO LAYING ON LEFT SIDE. CALL LIGHT IN REACH. REMAINS SALINE LOCKED.
--- NOTE | 2024-11-07 16:09 | NUR ---
PT USING CALL LIGHT HEAVILY TO ASK FOR SMALL REQUESTS THAT THE PATIENT IS ABLE TO DO OR REACH IN ROOM INDEPENDITLY. PT'S MOOD PRESENTS LABILE AND DEFEATED STATING THINGS LIKE "MIGHT WELL JUST PUT ME DOWN". WHEN DISCUSSING POTENTIAL COPING MECHANISMS PT STATES THE ONLY THINGS THAT CALM HIM DOWN ARE DRIVING AND GOING TO [place]. PT IS UNMOTIVATED TO ATTEMPT ANYTHING ELSE.
--- NOTE | 2024-11-07 16:27 | NUR ---
PT ASSISTED UP TO CHAIR USING FWW AND GAIT BELT. PT PRIOR TO THAT COMPLAINING OF "SHAKES" THAT ARE JERKING MOVEMENTS OF HIS BODY AND UNABLE TO ASSIST IN BOOSTING HIMSELF UP IN BED. PT WALKS USING FWW WITHOUT THESE JERKING MOVEMENTS AND WITHOUT LIFT ASSISTANCE. CALL LIGHT AND TABLE IN FRONT OF PT.
--- NOTE | 2024-11-07 17:11 | NUR ---
DINNER DELIVERED TO ROOM AND SET UP ON TABLE IN FRONT OF PT - NO NOTABLE "SHAKING" WHILE RN IN ROOM. PT'S NEICE IN ROOM VISITING. BP ON MONITOR LOWER THAN PREVIOUS READINGS BUT PT IS ASYMPTOMATIC AND DOES NOT ENDORSE FEELING DIFFERENT.
--- NOTE | 2024-11-07 18:05 | NUR ---
PT COMPLETE WITH DINNER AND USES CALL LIGHT TO REQUEST TRAY BE REMOVED. RESTING COMFORTABLY IN RECLINER WATCHING BASKETBALL ON TV. PT DENIES COMPLAINTS AT THIS TIME. BP STABLE.
--- NOTE | 2024-11-07 18:24 | NUR ---
PT ASSISTED BACK TO BED USING FWW AND GAIT BELT. SCD'S ON AND TABLE PLACED AT SIDE. PT ABLE TO REPOSISTION SELF UP IN BED. BED ALARM ON.
--- NOTE | 2024-11-07 19:44 | NUR ---
handoff report received from day shift RN. patient sitting up awake in bed, watching tv. patient has no needs at this time. call light in reach.
--- NOTE | 2024-11-07 20:01 | NUR ---
ARYAN WEARS 2L NC AT NIGHT. HE SHOULD BE ON ROOM AIR DURING THE DAY. ARYAN IS SITTING UP IN BED WATCHING TV. HOB IS AT 29 DEGREES.
--- NOTE | 2024-11-07 20:15 | NUR ---
patient uses call light stating he needs to void. urinal provided. patient sits up at edge of bed without assistance. patient remains on 2L NC, tolerating well. patient BP stable at this time. IV site WNL and saline locked. patient remains sitting up at side of bed. bed alarm on. patient has call light in reach.
[2024-11-07] MEDS ORDERED: CEFTRIAXONE SODIUM 1 GM VIAL IV ONE (20:35)
--- NOTE | 2024-11-07 20:45 | NUR ---
patient states he has 5/10 back pain, PRN Motrin given per EMAR. ice pack provided per request. patient repositioned in bed. no further needs at this time. call light in reach.
--- NOTE | 2024-11-07 23:09 | NUR ---
PATIENT REQUESTED WARM PACK FOR SCIATICA AREA PAIN.
--- NOTE | 2024-11-07 23:20 | NUR ---
patient sitting up in bed, watching tv. patient provided with warm blanket. SCD'S in place. patient BP stable. patient urinal emptied of 75cc of urine. no further needs at this time. call light in reach.
--- NOTE | 2024-11-07 23:48 | NUR ---
PATIENT COMPLAINS OF FEELING NAUSEOUS AND REQUEST NAUSEA MEDICATION. PRN NAUSEA MEDICATION GIVEN PER EMAR. PATIENT SITTING UP AT BEDSIDE AT THIS TIME. PATIENT HAS NO FURTHER NEEDS. CALL LIGHT IN REACH.
[2024-11-08] VITALS (17 sets, daily range): BP systolic 95–123; BP diastolic 50–90
--- NOTE | 2024-11-08 00:54 | NUR ---
PATIENT REPOSITIONED IN BED. SCD'S TAKEN OFF PER PATIENT REQUEST. PATIENT REMAINS ON 2L NC, SPO2 93%. PATIENT HAS NO FURTHER NEEDS AT THIS TIME. CALL LIGHT IN REACH, BED ALARM ON.
--- NOTE | 2024-11-08 02:15 | NUR ---
PATIENT RESTING IN BED WITH EYES CLOSED, RR 16. PATIENT REMAINS ON 2L NC, TOLERATING WELL. NO ACUTE DISTRESS NOTED. PATIENT HAS CALL LIGHT IN REACH.
--- NOTE | 2024-11-08 03:42 | NUR ---
patient awake, sitting at bedside to use urinal. patient voids and lays back down. patient has no further needs at this time. call light in reach. bed alarm remains on for patient safety.
[2024-11-08 05:13] LABS: BASOPHILS 1.2 % (0-2); EOSINOPHILS 1.5 % (0-6); HEMATOCRIT 36.1 % (35.0-50.0); HEMOGLOBIN 12.2 g/dL (12.0-18.0); LYMPHOCYTES 12.1 % (24-44); MCH 30.7 (27-36); MCHC 33.9 g/dl (30-36); MCV 90.8 fl (81-99); MONOCYTES 7.4 % (0-12); NEUTROPHILS 77.8 % (39-80); PLATELET COUNT 144 K/uL (140-440); RBC 3.98 M/ul (4.3-5.7); RDW 17.4 (10.5-15.0)
--- NOTE | 2024-11-08 05:20 | NUR ---
PATIENT RESTING IN BED WITH EYES CLOSED, RR 15. PATIENT REMAINS ON 2L NC, SPO2 98%. VITAL SIGNS STABLE. PATIENT HAS NO NEEDS AT THIS TIME. CALL LIGHT IN REACH.
[2024-11-08 05:25] LABS: ANION GAP 2.5 (7-21); BUN/CREATININE RATIO 20.98 (6.0-28.6); CALCIUM 8.5 mg/dL (8.5-10.1); CREATININE, SERUM 0.81 mg/dL (0.70-1.30); MAGNESIUM 2.2 mg/dL (1.8-2.4); POTASSIUM 4.5 mmol/L (3.5-5.1)
--- NOTE | 2024-11-08 06:01 | NUR ---
PATIENT GOWN CHANGED AND NEW BRIEF PLACED. PATIENT REPOSITIONED IN BED. NO FURTHER NEEDS AT THIS TIME. CALL LIGHT IN REACH, BED ALARM ON FOR PATIENT SAFETY.
[2024-11-08] MEDS ORDERED: POLYETHYLENE GLYCOL 3350 1 PACKET PO SCH (09:21)
[2024-11-08] MEDS ORDERED: SENNOSIDES/DOCUSATE 1 EA TAB PO SCH (09:21)
--- NOTE | 2024-11-08 09:31 | NUR ---
PT RESTING IN CHAIR EATING BREAKFAST TEXTING ON HIS PHONE - PT REPORTS NAUSEA AND HAS BEEN WITHOUT BM FOR SEVERAL DAYS, ENCOURAGED TO START BOWEL CARE - PT AGREES, NIO ORDER ENTERED. PT REPORTS PAIN IN LOWER BACK AT 5/10. CRACKLES NOTED IN LOWER LOBES BILATERALLY. EDEMA IN LOWER LEGS +2, UNCHANGED FROM YESTERDAY. CALL LIGHT AND TABLE IN FRONT OF PT.
--- NOTE | 2024-11-08 10:16 | NUR ---
PT ASSISTED BACK TO BED FROM CHAIR BY HVAC SERVICE TECHNICIAN USING FWW CGA. RT IN ROOM FOR ASSESSMENT. PO MEDS ADMINISTERED. SCD'S IN PLACE, BED ALARM ON.
--- NOTE | 2024-11-08 10:19 | NUR ---
PATIENT WAS A 1PA WITH FWW AND GAIT BELT TO THE CHAIR AT 0815. THEY SAT UP TO EAT BREAKFAST. THEIR URINAL WAS USED, DOCUMENTED, AND RINSED. CALL LIGHT AND PERSONAL ITEMS WERE WITHIN REACH. PATIENT RETURNED TO BED AT 1000.
--- NOTE | 2024-11-08 12:10 | NUR ---
REPORT RECEIVED FROM KEEGAN GONSALEZ IN CCU.
--- NOTE | 2024-11-08 12:41 | NUR ---
PATIENT JUST ARRIVED TO THE FLOOR. VITAL SIGNS TAKEN AND DOCUMENTED IN THE CHART. PATIENT IS ON 2 L NC WHICH IS CHORINC FOR THE PATIENT. PATIENT IS SITTING IN THE CHAIR WITH HIS LUNCH SET UP IN FRONT OF HIM. PATIENT STATED NO FURTHER NEEDS AT THIS TIME. CALL LIGHT AND PERSONAL BELONGINGS ARE WITHIN REACH.
--- NOTE | 2024-11-08 13:41 | NUR ---
PATIENT IS ON THE COMMODE AT THIS TIME. TOO PITTMAN REMAINS IN THE ROOM.
--- NOTE | 2024-11-08 14:20 | NUR ---
TOO PITTMAN IS IN THE ROOM AT THIS TIME AND GETTING 1400 VITAL SIGNS. FULL ASSESSMENT COMPLETE AND DOCUMENTED IN THE CHART. PATIENT IS ALERT AND ORIENTED TIMES FOUR. PATIENT WORKS WITH PT/OT. PATIENT IS A SBA WITH A FWW AND GAIT BELT. BED AND CHAIR ALARMS IN USE. BRIEF IN PLACE. IV SITE FLUSHED WITH 10 ML NORMAL SALINE AND IS SALINE LOCKED. IV DRESSING IS CLEAN, DRY, AND INTACT. PATIENT IS ON A 2 G SODIUM DIET AND BOWEL TONES ARE ACTIVE IN ALL FOUR QUADRANTS. LAST BM 11/07/24. PATIENT IS CURRENTLY ON 1 L AND LUNG SOUNDS ARE CLEAR THROUGHOUT. PATIENT IS ON 2L NC AT NIGHT. CPOX AT BEDSIDE. CARDIAC WITH A PACER. 2+ PITTING EDEMA NOTED TO THE BLE. RADIAL AND PEDAL PULSES ARE STRONG BILATERALLY. CAPILLARY REFILL IN THE UPPER AND LOWER EXTREMITIES IS LESS THAN 3 SECONDS BILATERALLY. SENSATION INTACT WITH NO COMPLAINTS OF NUMBNESS OR TINGLING. PATIENT WITH NO COMPLAINTS OF PAIN. SKIN WITH SCATTERED BRUISING. PATIENT STATED NO FURTHER NEEDS AT THIS TIME. CALL LIGHT AND PERSONAL BELONGINGS ARE WITHIN REACH.
--- NOTE | 2024-11-08 15:13 | NUR ---
ANSWERED PATIENT CALL LIGHT. PAATIENT WANTED TO GO BACK TO BED. PUT GAIT BELT ON HIM AND HE USED HIS WALKER GOT HIM SITTING UP ON THE SIDE OF HIS BED. PATIENT SAID HE NEEDED TO USE THE COMMODE GOT HIM BACK UP GAIT BELT STILL ON AND HE NEEDED TO USE THE BEDSIDE COMMODE. WAITED UNTIL HE WAS DONE THAN WENT WE WALKED BACK TO HIS BED. WHEN PATIENT WAS LAYING DOWN AND COMFORTABLE PUT BED ALARM ON. ALSO PUT THE STICKY FINGER PROBE ON A DIFFERENT FINGER UPON PATIENT'S REQUEST.
--- NOTE | 2024-11-08 15:30 | NUR ---
PATIENT IS LYING IN BED WITH HOB ELEVATED. PATIENT WITH EYES OPEN AND RESPIRATIONS ARE EVEN AND UNLABORED. PATIENT WITH NC IN PLACE AND THE CPOX AT BEDSIDE. PATIENT IS WATCHING TV. CALL LIGHT AND PERSONAL BELONGINGS ARE WITHIN REACH.
--- NOTE | 2024-11-08 16:15 | NUR ---
PATIENT ASSISTED TO STAND WITH TOO PITTMAN AND RICARDO. KEEGAN BRICENO IN THE ROOM. WOUND ON THE COCCYX WITH BLANCHABLE REDNESS. PIN POINT OPEN AREA OBSERVED WITH NO DRAINAGE NOTED. NEW DRESSING IN PLACE. AFTER DRESSING PLACED, PATIENT TRANSFERRED TO THE COMMODE. PATIENT TOLERATED WELL. TOO PITTMAN REMAINS AT BEDSIDE.
--- NOTE | 2024-11-08 16:23 | NUR ---
NOTIFIED OF HOME MEDICATION OF FLOMAX NOT BEING GIVEN WHILE HERE. STATED TO NOT ORDER AT THIS TIME. WITH NO FURTHER ORDERS AT THIS TIME. CALL ENDED.
--- NOTE | 2024-11-08 17:35 | NUR ---
VITAL SIGNS AND INTAKE AND OUTPUT TAKEN AND DOCUMENTED IN THE CHART. PATIENT ASSISTED TO THE COMMODE TO HAVE SMALL LIQUID STOOL. PATIENT THEN TRANSFERRED BACK TO BED WITH NC AT [address] WITH THE CPOX AT BEDSIDE. PATIENT STATED NO FURTHER NEEDS AT THIS TIME. CALL LIGHT WITHIN REACH. BED ALARM IN PLACE. DINNER TRAY REMOVED PER PATIENT REQUEST.
--- NOTE | 2024-11-08 18:04 | NUR ---
PATIENT IS LYING IN BED WITH THE HOB ELEVATED. TV IS ON. NC IN PLACE WITH THE CPOX AT BEDSIDE. CALL LIGHT AND PERSONAL BELONGINGS ARE WITHIN REACH.
--- NOTE | 2024-11-08 19:21 | NUR ---
RECEIVED REPORT FROM DAY SHIFT RN. PATIENT IS RESTING IN BED VISITING WITH FAMILY. PATIENT DENIES ANY NEEDS. CALL LIGHT IN REACH.
[2024-11-08] MEDS ORDERED: CEFTRIAXONE SODIUM 1 GM VIAL IV ONE (20:24)
--- NOTE | 2024-11-08 20:40 | NUR ---
PATIENTS VITALS TAKEN AND RECORDED. URINAL EMPTIED. INTAKE AND OUTPUT RECORDED. PATIENT IS ON 2L VIA NC. PATIENT HAS CPOX IN USE. PATIENTS PM MEDS GIVEN PER ORDER. PATIENT RATES PAIN IN HIS BACK AT A 3/10, AND DENIES THE NEED FOR INTERVENTION AT THIS TIME. PATIENTS IV ABX IN FUSING PER ORDER. PATIENT DENIES ANY FURTHER NEEDS. CALL LIGHT IN REACH. BED ALARM ON FOR SAFETY.
[2024-11-08] MEDS ORDERED: GABAPENTIN 100 MG CAP PO SCH (21:00)
--- NOTE | 2024-11-08 22:00 | NUR ---
PATIENTS URINAL EMPTIED. PATIENT IS BACK IN BED RESTING. PATIENT DENIES ANY PAIN OR SOB. PATIENT REMAINS ON 2L VIA NC. PATIENT DENIES ANY FURTHER NEEDS. CALL LIGHT IN REACH. BED ALARM ON FOR SAFETY.
[2024-11-09] VITALS (11 sets, daily range): BP systolic 98–119; BP diastolic 50–85
--- NOTE | 2024-11-09 00:33 | NUR ---
PATIENTS CPOX ALARMING 84%. PATIENT IS RESTING IN BED WITH MOUTH OPEN. PATIENTS OXYGEN PLACED BACK IN HIS NOSE. PATIENTS OXYGEN SATURATION DID NOT IMPROVE. PATIENT TITRATED TO 4L VIA NC. PATIENTS OXYGEN SATURATION NOW 95%. NAD NOTED. CALL LIGHT IN REACH. BED ALARM ON FOR SAFETY.
--- NOTE | 2024-11-09 01:38 | NUR ---
ME IS ASLEEP ON A 3L NC. RN WAS TOLD BY ARYAN THAT HE WEARS 2L TO 4L HE FEELS.
--- NOTE | 2024-11-09 02:20 | NUR ---
PATIENT IS RESTING IN BED WITH EYES CLOSED, CPOX READINGS ARE WNL. NAD NOTED. CALL LIGHT IN REACH. BED ALARM ON FOR SAFETY.
--- NOTE | 2024-11-09 03:24 | NUR ---
Patient's pulse ox alarm was going off, his oxygen was not in his nose and his O2 was at 82%. Repositioned his oxygen to his nose and helped him with his urinal. He had an output of 200ml. He is back in bed, O2 is at 95%, bed alarm is on, and call light within reach.
--- NOTE | 2024-11-09 03:52 | NUR ---
PATIENT IS RESTING IN BED WITH EYES CLOSED, CPOX READINGS ARE WNL. NAD NOTED. CALL LIGHT IN REACH.
[2024-11-09 05:36] LABS: BASOPHILS 1.1 % (0-2); EOSINOPHILS 1.6 % (0-6); HEMATOCRIT 35.5 % (35.0-50.0); HEMOGLOBIN 12.3 g/dL (12.0-18.0); LYMPHOCYTES 10.8 % (24-44); MCH 31.1 (27-36); MCHC 34.5 g/dl (30-36); MCV 89.9 fl (81-99); MONOCYTES 7.1 % (0-12); NEUTROPHILS 79.4 % (39-80); PLATELET COUNT 157 K/uL (140-440); RBC 3.95 M/ul (4.3-5.7); RDW 17.2 (10.5-15.0)
--- NOTE | 2024-11-09 05:36 | NUR ---
PATIENT IS RESTING IN BED. SPECIAL EFFECTS TECHNICIAN TOOK VITALS. PATIENT IS ON 3L VIA NC. PATIENT DENIES ANY SOB OR PAIN. PATIENT DENIES ANY FURTHER NEEDS. CALL LIGHT IN REACH. BED ALARM ON FOR SAFETY.
[2024-11-09 05:38] LABS: ANION GAP 4.7 (7-21); BUN/CREATININE RATIO 16.66 (6.0-28.6); CALCIUM 8.7 mg/dL (8.5-10.1); CREATININE, SERUM 0.84 mg/dL (0.70-1.30); MAGNESIUM 2.2 mg/dL (1.8-2.4); POTASSIUM 4.7 mmol/L (3.5-5.1)
--- NOTE | 2024-11-09 07:09 | NUR ---
REPORT RECEIVED FROM KEEGAN SIMON. PATIENT RESTING IN BED WITH EYES CLOSED. EVEN AND UNLABORED RESPIRATIONS NOTED. CALL LIGHT AND PERSONAL BELONGINGS WITHIN REACH. CPOX AT BEDSIDE.
--- NOTE | 2024-11-09 08:15 | NUR ---
PATIENT SITTING UP IN BED EATING BREAKFAST. PATIENT WITHOUT ANY NEEDS AT THIS TIME. CALL LIGHT AND PERSONAL BELONGINGS WITHIN REACH.
--- NOTE | 2024-11-09 09:20 | NUR ---
PATIENT UP TO BEDSIDE COMMODE. CALL LIGHT AND PERSONAL BELONGINGS WITHIN REACH.
--- NOTE | 2024-11-09 10:15 | NUR ---
PT IS WORKING WITH THE PATIENT AT THIS TIME.
--- NOTE | 2024-11-09 11:48 | NUR ---
PATIENT ASSISTED TO THE COMMODE AND BACK TO THE CHAIR WITH SBA AND FWW. PATIENT TOLERATED WELL. PATIENT WITH NC IN PLACE. CPOX AT BEDSIDE. PATIENT STATED NO FURTHER NEEDS AT THIS TIME. CALL LIGHT AND PERSONAL BELONGINGS ARE WITHIN REACH.
--- NOTE | 2024-11-09 11:58 | NUR ---
Hourly rounding. Patient was a stand by assist to the cammode. Encouraging patient to do ADL such as wiping and pulling his pants down.
--- NOTE | 2024-11-09 12:48 | NUR ---
PATIENT SITTING UP IN BED WATCHING TV. PATIENT DENIES ANY NEEDS AT THIS TIME. CALL LIGHT AND PERSONAL BELONGINGS WITHIN REACH.
--- NOTE | 2024-11-09 13:24 | NUR ---
PATIENT SITTING UP IN BED WATCHING TV. PATIENT IS WITHOUT ANY NEEDS AT THIS TIME. CALL LIGHT AND PERSONAL BELONGINGS WITHIN REACH. BED ALARM ACTIVATED.
--- NOTE | 2024-11-09 13:39 | NUR ---
PATIENT IS SITTING ON THE COMMODE WITH TOO JIMENEZ IN THE ROOM AT THIS TIME. CALL LIGHT AND PERSONAL BELONGINGS WITHIN REACH.
--- NOTE | 2024-11-09 13:52 | NUR ---
PATIENT CALLED SAYING HE WAS IN PAIN. RN AWARE. I ASSISTED PT TO THE COMMODE AND TO THE CHAIR FOR REPOSITIONING. PILLOWS IN USE. CALL LIGHT IN REACH.
--- NOTE | 2024-11-09 14:23 | NUR ---
PATIENT IS GETTING RE-SITUATED IN THE CHAIR WITH TOO JIMENEZ IN THE ROOM. CPOX AT BEDSIDE. CALL LIGHT AND PERSONAL BELONGINGS ARE WITHIN REACH.
--- NOTE | 2024-11-09 14:28 | NUR ---
ASSISTED PATIENT BACK TO BED FROM THE CHAIR. CALL LIGHT IN REACH.
--- NOTE | 2024-11-09 15:50 | NUR ---
PATIENT FOCUS ASSESSMENT COMPLETED. PATIENT IS 91% ON 1L NC AT THIS TIME. LUNG LOUNDS ARE CLEAR IN BILATERAL UPPER LOBES, CRACKLES IN RIGHT LOWER LOBE, AND DIMINSHED IN THE LEFT LOWER LOBE. IV FLUSHED WITH 10ML OF NS, DRESSING INTACT. PATIENT REPORTS PAIN, BUT STATES IT IS TOLERABLE AT THIS TIME. FRESH ICE WATER PROVIDED. CALL LIGHT AND PERSONAL BELONGINGS WITHIN REACH.
--- NOTE | 2024-11-09 16:01 | NUR ---
PATIENT SITTING UP IN BED WATCHING TV. PATIENT DENIES ANY NEEDS AT THIS TIME. CALL LIGHT AND PERSONAL BELONINGS WITHIN REACH. CPOX AT BEDSIDE.
--- NOTE | 2024-11-09 17:55 | NUR ---
PATIENT IS LYING IN BED WITH HOB ELEVATED. PATIENT IS WATCHING TV. PATIENT IS ON NC WITH THE CPOX AT BEDSIDE. PATIENT STATED NO NEEDS AT THIS TIME. CALL LIGHT AND PERSONAL BELONGINGS ARE WITHIN REACH.
--- NOTE | 2024-11-09 18:22 | NUR ---
PATIENT UP TO BED SIDE COMMODE. NEW ALLEVYN PLACED ON PATIENT COCCYX BY KEEGAN WATTERS. PATIENT UP TO CHAIR AFTER COMMODE. KEEGAN WATTERS CHANGED PATIENT BEDDING AND PLACED WAFFLE MATTRESS. PATIENT SITTING UP IN CHAIR WITH WITH NC ON, CPOX AT BEDSIDE. PATIENT WATCHING TV AND DENIES ANY FURTHER NEEDS AT THIS TIME. CALL LIGHT AND PERSONAL BELONGINGS WITHIN REACH.
--- NOTE | 2024-11-09 18:40 | NUR ---
PATIENT REQUESTED TO USE THE BATHROOM AND THEN GO BACK TO BED. I ASSISTED HIM WITH THESE TASKS AND HE HAS NO OTHER NEEDS AT THIS TIME. CALL LIGHT IN REACH.
--- NOTE | 2024-11-09 19:10 | NUR ---
RECEIVED REPORT FROM DAY SHIFT RN. PATIENT IS RESTING IN BED. NO NEEDS NOTED AT THIS TIME. CALL LIGHT IN REACH.
--- NOTE | 2024-11-09 20:17 | NUR ---
pt utilizes call light, reports 9/10 pain to back. prn provided, see emar. warm compress provided. pt denies further needs at this time. call light in reach.
[2024-11-09] MEDS ORDERED: CEFTRIAXONE SODIUM 1 GM VIAL IV ONE (20:55)
[2024-11-09] MEDS ORDERED: GABAPENTIN 300 MG CAP PO SCH (21:00)
--- NOTE | 2024-11-09 21:17 | NUR ---
PATIENT UP TO BR A 1PA W/FWW. PATIENT UNABLE TO FOLLOW DIRECTIONS TO CORRECT POSTURE. PATIENT ABLE TO VOID AND DID NOT HAVE BM. PATIENT IS BACK IN BED RESTING. VITALS TAKEN AND RECORDED. INTAKE AND OUTPUT RECORDED. PATIENTS PMS MED GIVEN PER ORDER. WARM PACK APPLIED TO PATIENTS LOW BACK. PATIENTS IV ABX INFUSING PER ORDER. PATIENT REMAINS ON 1L VIA NC. CPOX IN USE. PATIENT DENIES ANY SOB. PATIENT DENIES ANY FURTHER NEEDS. UPDATED PLAN OF CARE AND ANSWERED ALL QUESTIONS. CALL LIGHT IN REACH.
--- NOTE | 2024-11-09 22:04 | NUR ---
ARYAN IS ASLEEP ON A 2L NC W/ HOB ELEVATED TO 49 DEGREES.
--- NOTE | 2024-11-09 22:12 | NUR ---
PATIENT IS RESTING IN BED WITH EYES CLOSED, CPOX READINGS ARE WNL. NAD NOTED. CALL LIGHT IN REACH.
--- NOTE | 2024-11-09 22:58 | NUR ---
PATIENT REPORTS SOB. PATIENTS OXYGEN SATURATION IS NOTED TO BE 96% ON 2L VIA NC. PATIENT STATED "I JUST CANT GET BREATH". PATIENTS VITALS TAKEN AND RECORDED. PATIENTS LUNG SOUNDS ASSESED AND ARE UNCHANGED FROM LAST ASSES. PATIENT CONTIUES TO POINT AT OXYGEN. PATIENT HAS HX OF CLAUSTROPHOBIA. PATIENTS OXYGEN REMOVED FROM FACE AND BEDSIDE FAN PROVIDED. PATIENT BRONSON ANY IMPROVEMENT IN SYMPTOMS. PATIENT PLACED BACK ON 2L VIA NC. PATIENTS OXYGEN SATURATION NOTED TO BE 92% ON RA. RT CALLED TO ADMIN PRN NEB, RT UNAVAILBLE AT THIS TIME. PRN NEB TX GIVEN BY THIS RN. PATIENTS OXUGEN SATURATION REMAINS AT 96% ON 2L VIA NC. PATIENT REPORTS "MY NOSE IS STUFFY". PATIENT ASSISTED TO BLOW NOSE. PATIENT REPORTS "I FEEL A LITTLE BETTER". PATIENT ASSISTED TO REPOSITION IN BED. PATIENT DENIES ANY FURTHER NEEDS. CALL LIGHT IN REACH.
--- NOTE | 2024-11-10 00:07 | NUR ---
PATIENT IS RESTING IN BED WITH EYES CLOSED, CPOX READINGS ARE WNL. NAD NOTED. CALL LIGHT IN REACH.
--- NOTE | 2024-11-10 02:16 | NUR ---
PATIENT IS RESTING IN BED WITH EYES CLOSED, CPOX READINGS ARE WNL. NAD NOTED. CALL LIGHT IN REACH. URINAL EMPTIED.
--- NOTE | 2024-11-10 02:22 | NUR ---
ARYAN IS ASLEEP ON A SL NC W/HOB ELEVATED.
--- NOTE | 2024-11-10 04:06 | NUR ---
PATIENT IS RESTING IN BED WITH EYES CLOSED, CPOX READINGS ARE WNL. NAD NOTED. CALL LIGHT IN REACH. URINAL EMPTIED.
[2024-11-10 05:27] LABS: BASOPHILS 0.9 % (0-2); EOSINOPHILS 1.7 % (0-6); HEMATOCRIT 36.8 % (35.0-50.0); HEMOGLOBIN 12.6 g/dL (12.0-18.0); LYMPHOCYTES 9.2 % (24-44); MCHC 34.3 g/dl (30-36); MCV 90.3 fl (81-99); MONOCYTES 7.3 % (0-12); NEUTROPHILS 80.9 % (39-80); PLATELET COUNT 151 K/uL (140-440); RBC 4.07 M/ul (4.3-5.7); RDW 17.6 (10.5-15.0)
[2024-11-10 05:41] LABS: ANION GAP 3.6 (7-21); BUN/CREATININE RATIO 20.73 (6.0-28.6); CALCIUM 8.8 mg/dL (8.5-10.1); CREATININE, SERUM 0.82 mg/dL (0.70-1.30); MAGNESIUM 2.1 mg/dL (1.8-2.4); POTASSIUM 4.6 mmol/L (3.5-5.1)
[2024-11-10 06:13] VITALS: BP 109/59
--- NOTE | 2024-11-10 06:20 | NUR ---
PATIENTS VITALS TAKEN AND RECORDED. PATIENTS INTAKE AND OUTPUT RECORDED. PATIENT RATES PAIN IN HIS LOWERE BACK AT A 6/10, PRN PAIN MEDICATION GIVEN PER ORDER. PATIENT PROVIDED FRESH ICE WATER. PATIENT DENIES ANY FURTHER NEEDS. CALL LIGHT IN REACH. PATIENT REMAINS ON 2L VIA NC. CPOX IN USE.
--- NOTE | 2024-11-10 06:38 | NUR ---
MASONRY INSTALLER TOOK PT TO BATHROOM FOR BM. HOWEVER, PT ONLY HAD GAS. MASONRY INSTALLER HELPED PT BACK TO BED AND LEFT PT WITH CALL LIGHT WITHIN REACH.
--- NOTE | 2024-11-10 07:12 | NUR ---
REPORT RECEIVED FROM MANAGER OF SALES KEEGAN SIMON. PATIENT IS LYING IN BED WITH HOB ELEVATED. CPOX AT BEDSIDE. KEEGAN SIMON INCREASEDN NC TO 4 L NC. PATIENT IS RESTING IN BED WITH EYES CLOSED AND RESPIRATIONS ARE EVEN AND UNLABORED. CALL LIGHT AND PERSONAL BELONGINGS ARE WITHIN REACH.
--- NOTE | 2024-11-10 08:37 | NUR ---
PATIENT IS SITTING ON THE EDGE OF BED AND EATING BREAKFAST. PATIENT WITH NC IN PLACE WITH THE CPOX AT BEDSIDE. CALL LIGHT AND PERSONAL BELONGINGS ARE WITHIN REACH.
--- NOTE | 2024-11-10 08:40 | NUR ---
ANSWERED PATIENT'S CALL LIGHT. PATIENT SAID NEEDED HELP. ASKED HIM IF HE WOULD LIKE TO GET UP IN HIS CHAIR FOR BREAKFAST AND HE REFUSED. HE IS SITTING ON THE SIDE OF HIS BED EATING HIS BREAKFAST. BED ALARM IS ON. EMPTIED HIS URINAL.
[2024-11-10] MEDS ORDERED: POLYETHYLENE GLYCOL 3350 1 PACKET PO SCH (09:00)
--- NOTE | 2024-11-10 09:21 | NUR ---
PATIENT IS LYING IN BED WITH HOB ELEVATED. NC INPLACE WITH THE CPOX AT BEDSIDE. PATIENT WITH EYES OPEN AND RESPIRATIONS ARE EVEN AND UNLABORED. CALL LIGHT AND PERSONAL BELONGINGS ARE WITHIN REACH.
[2024-11-10 09:28] VITALS: BP 120/54
[2024-11-10 09:55] VITALS: BP 120/54
--- NOTE | 2024-11-10 09:57 | NUR ---
PATIENT IS WORKING WITH PHYSICAL THERAPY AT THIS TIME. KEEGAN DAO WITH WHEELCHAIR FOLLOW. KEEGAN DAO STATED NO NEED FOR MORE HELP AT THIS TIME.
--- NOTE | 2024-11-10 10:30 | NUR ---
PATIENT IS SITTING IN THE CHAIR WITH BILATERAL LOWER EXTREMITIES ELEVATED. PATIENT IS ON NC WITH THE CPOX AT BEDSIDE. FULL ASSESSMENT COMPLETE AND DOCUMENTED IN THE CHART. PATIENT IS ALERT AND ORIENTED TIMES FOUR. PATIENT LAST BM WAS 11/09/24. PATIENT WORKS WITH PT/OT. URINAL AND BRIEF IN PLACE. PATIENT HAS URGENCY AND RETENTION. PATIENT DOES TAKE FLOMAX AT HOME. PATIENT IS A SBA WITH A FWW. BED AND CHAIR ALARMS IN USE. WAFFLE OVERLAY NOTED ON THE BED. PATIENT WITH SCATTERED BRUISING AND DRY SKIN TO THE BILATERAL FEET. IV FLUSHED WITH 10 ML NORMAL SALINE AND IS SALINE LOCKED. IV DRESSING IS CLEAN, DRY, AND INTACT. PATIENT IS ON A 2 GRAM SODIUM DIET WITH ACTIVE BOWEL TONES TIMES FOUR. PATIENT IS ON NC WITH CPOX IN PLACE. LUNG SOUNDS ARE CLEAR IN THE UPPER LOBES AND DIMINISHED IN THE BASES BILATERALLY. CARDIAC WITH APACER. RADIAL PULSES ARE STRONG BILATERALLY. PEDAL PULSES ARE FAINT BILATERALLY. CAPILLARY REFILL IN THE UPPER AND LOWER EXTRMEITIES IS LESS THAN 3 SECONDS BILATERALLY. SENSATION INTACT WITH NO COMPLAINTS OF NUMBNESS OR TINGLING. PATIENT WITH NO COMPLAINTS OF PAIN. PATIENT WITH A HISTORY OF ALEVYN ON THE COCCYX. THIS RN DID NOT VISULAIZE DRESSING AT THIS TIME. ROUNDED ON THE PATIENT AT THIS TIME. PATIENT STATED NO FURTHER NEEDS AT THIS TIME. CALL LIGHT AND PERSONAL BELONGINGS ARE WITHIN REACH.
--- NOTE | 2024-11-10 10:45 | NUR ---
SPOKE WITH CHANDATINO AKILAHCINDY. SHE IS PLANNING TO PICK PATIENT UP AT 1 TODAY. ANDREINA IS FRUSTRATED THAT THE PATIENT HAS USED UP HIS [facility] DAYS. STATES SHE BELIEVES THE FACILITY COMITTED FRAUD BY HAVING HIM STAY THAT LONG. [facility]. LET HER KNOW WE WOULD BE SETTING UP HOME HEALTH FOR PATIENT. WHEN HE IS DISCHARGED.
--- NOTE | 2024-11-10 11:05 | NUR ---
INTO TO TALK WITH PATIENT. GAVE HIM PATIENT CHOICE LETTER. [facility] WAS CHOOSEN FOR HOME HEALTH. TALKED WITH PATIENT ABOUT [employer]ICA[employer]. HE SAID HE WOULD START THINKING ABOUT IT. BUT HE DOES NOT LIKE THE FACT THEY WILL TAKE HIS MONEY AND HE WILL HAVE TO LIVE IN AN ASSISTED LIVING. PATIENT NOT READY TO TAKE THIS STEP AT THIS TIME. NO FUTHER NEEDS FROM AT THIS TIME.
--- NOTE | 2024-11-10 11:05 | NUR ---
PATIENT IS SITTING IN THE CHAIR WITH BILATERAL LOWER EXTREMITIES ELEVATED. NC IN PLACE WITH CPOX AT BEDSIDE. PATIENT IS ON THEIR PHONE. TV IS ON. CALL LIGHT AND PERSONAL BELONGINGS ARE WITHIN REACH.
--- NOTE | 2024-11-10 12:13 | NUR ---
PATIENT IS SITTING IN THE CHAIR WITH BILATERAL LOWER EXTREMITIES ELEVATED. NC IN PLACE WITH THE CPOX AT BEDSIDE. PATIENT IS LOOKING ON HIS PHONE. TV ON. PATIENT RESPIRATIONS ARE EVEN AND UNLABORED. CALL LIGHT AND PERSONAL BELONGINGS ARE WITHIN REACH.
--- NOTE | 2024-11-10 13:03 | NUR ---
PATIENT IS SITTING ON THE EDGE OF BED AND LOOKING AT A PAPER. PATIENT WITH EYES OPEN AND RESPIRATIONS ARE EVEN AND UNLABORED. NC IN PLACE WITH THE CPOX AT BEDSIDE. TV IS ON. CALL LIGHT AND PERSONAL BELONGINGS ARE WITHIN REACH. PATIENT NIECE JUST WALKED INTO THE ROOM.
[2024-11-10 13:28] VITALS: BP 102/58
--- NOTE | 2024-11-10 13:50 | NUR ---
IN WITH DR. WOODALL. DISCUSSED DISCHARGE PLAN WITH PATIENT AND STEVE ARMASECE. GAVE THEM PAID CAREGIVERS PHAMPLET. PATIENT COMPLETED IMM LETTER. O2 QUALIFER TO BE COMPLETED.
--- NOTE | 2024-11-10 13:53 | NUR ---
PATIENT CHOOSE [facility] FOR PROVIDER
[2024-11-10 14:07] VITALS: BP 102/58
--- NOTE | 2024-11-10 14:45 | NUR ---
PATIENT IS LYING IN BED WITH NC IN PLACE AND THE CPOX AT BEDSIDE. PATIENT RATED PAIN 6/10 IN THE LOWER BACK AND HEADACHE. PATIENT REFUSED PAIN MEDICATION WHEN OFFERED BY THIS RN. IV SITE FLUSHED WITH 10 ML NORMAL SALINE AND IS SALINE LOCKED. IV DRESSING IS CLEAN, DRY, AND INTACT. DRESSING ON THE COCCYX REMOVED WITH KEEGAN ANDRADE. SKIN WITH REDNESS THAT IS BLANCHABLE NOTED. PIN POINT SIZE AREA OF SKIN IS OPEN. NO DRAINAGE NOTED. THIS RN STARTED TO PLACE NEW DRESSING WHEN PATIENT REFUSED THE DRESSING AND STATED, "IT IS TOO HARD FOR ME TO TAKE OFF AT HOME BY MYSELF". PATIENT EDUCATED ON WANTING TO PREVENT SKIN BREAKDOWN. PATIENT CONTINUED TO REFUSE COCCYX DRESSING. PATIENT VERBALIZED CONCERNS REARDING DISCHARGE TO AT THIS TIME. PATIENT STATED NO FURTHER NEEDS AT THIS TIME. CALL LIGHT AND PERSONAL BELONGINGS ARE WITHIN REACH.
--- NOTE | 2024-11-10 14:53 | NUR ---
STEVE GIVEN NON EMERGENT NUMBER FOR [facility] IF THEY NEED ASSISTANCE UP THE STAIRS TO APARTMENT.
--- NOTE | 2024-11-10 15:05 | NUR ---
[facility] TO LET [facility] KNOW.
--- NOTE | 2024-11-10 15:25 | NUR ---
PATIENT CALLED STATING "HELP". THIS RN CHECKED ON HIM AND HE STATED SHE HAD TO USE THE RESTROOM. THIS RN DELEGATED TO TOO [place] TO HELP GET PATIENT TO THE BATHROOM. SITE PROMOTION AGENT EXPRESSED UNDERSTANDING AND HELPED PATIENT TO THE BATHROOM.
[2024-11-10] MEDS ORDERED: CEFDINIR300 MG PO (15:36)
[2024-11-10] MEDS ORDERED: GABAPENTIN300 MG PO (15:37)
--- NOTE | 2024-11-10 15:55 | NUR ---
HOME HEALTH ORDER FAXED TO [facility].
== END 2024-11-10 16:40 | disposition home health service (06) | DRG 542 ==
LOC: ED 19:31 → MS 19:33 → CCU 11-06 09:50 → MS 11-06 09:50 → CCU 11-06 23:32 → MS 11-08 12:34
PROVIDERS: Internal Medicine; ADMIT Student in an Organized Health Care Education/Training Program; ATTEND Student in an Organized Health Care Education/Training Program
DX: M48.56XA Collapsed vertebra, not elsewhere classified, lumbar region, initial encounter for fracture (principal); I50.23 Acute on chronic systolic (congestive) heart failure; J18.9 Pneumonia, unspecified organism; J96.01 Acute respiratory failure with hypoxia; I25.10 Atherosclerotic heart disease of native coronary artery without angina pectoris; N40.0 Benign prostatic hyperplasia without lower urinary tract symptoms; E03.9 Hypothyroidism, unspecified; K59.00 Constipation, unspecified; I27.20 Pulmonary hypertension, unspecified; E11.9 Type 2 diabetes mellitus without complications; K21.9 Gastro-esophageal reflux disease without esophagitis; G47.33 Obstructive sleep apnea (adult) (pediatric); F40.240 Claustrophobia; Z86.73 Personal history of transient ischemic attack (TIA), and cerebral infarction without residual deficits; Z95.0 Presence of cardiac pacemaker; Z88.0 Allergy status to penicillin; Z88.5 Allergy status to narcotic agent; Z88.8 Allergy status to other drugs, medicaments and biological substances; Z79.82 Long term (current) use of aspirin; Z79.02 Long term (current) use of antithrombotics/antiplatelets; Z79.899 Other long term (current) drug therapy; Z90.49 Acquired absence of other specified parts of digestive tract; Z98.890 Other specified postprocedural states
CPT/HCPCS: 36415; 71045; 71046; 72100; 80048; 80053; 80307; 81003; 83735; 83880; 84484; 85025; 93005; 93010; 93306; 94640; 94667; 94668; 94761; 94762; 96374; 96375; 97162; 97164; 97166; 97168; 97530; 99285-25; A9270; G0378; J0696; J1650; J1885; J1940; J2405; J7040; J7121

== ENCOUNTER 2024-12-01 11:46 | Emergency (ER) | payer MEDICARE, OTHER ==
[~2024-12-01] VITALS: Ht 177.8 cm; Wt 93.0 kg
[~2024-12-01 11:46] MED LIST changes: +GABAPENTIN300 MG PO; +NYSTATIN15 G2 TOP
--- OUTSIDE RECORDS SUMMARY | 2024-12-01 11:53 | XMS ---
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 Josie VISIT COUNT (12 MO.) 11 [facility] 2 [facility] Don (Benny Zapata) TOTAL 13 NOTE: Visits indicate total known visits. ED/UCC VISIT TRACKING (12 MO.) 12/01/2024 11:47 [facility] [place] TYPE: Emergency COMPLAINT: - BACK PAIN 11/05/2024 19:32 [facility] [place] TYPE: Emergency COMPLAINT: - BACK PAIN 11/02/2024 05:04 [facility] [place] TYPE: Emergency COMPLAINT: - HIP/SLEEP/BREATHING ISSUES DIAGNOSES: - Allergy status to narcotic agent - Allergy status to other drugs, medicaments and biological substances - Allergy status to penicillin - Heart failure, unspecified - Hypertensive heart disease with heart failure - snf (current) use of anticoagulants - terminal computer operator (current) use of aspirin - Other continuous churn buttermaker (current) drug therapy - Shortness of breath - Sleep apnea, unspecified 10/09/2024 14:59 [facility] [place] TYPE: Emergency [...] body of left hand, initial encounter - snf (current) use of anticoagulants - Other chest [...] 2 diabetes mellitus without complications 09/16/2024 22:21 [facility] Poppy BATES (Benny Zapata) TYPE: Emergency DIAGNOSES: - Hypotension, unspecified - Weakness - Weakness [facility] DIAGNOSES: - Contusion of left upper arm, initial encounter - Strain of muscle, fascia and tendon of other parts of biceps, left arm, initial encounter - Arm Injury 06/25/2024 07:22 [facility] TYPE: Emergency COMPLAINT: - HIP PAIN 05/25/2024 22:08 [facility] [place] TYPE: Emergency COMPLAINT: - SHORT OF BREATH DIAGNOSES: - Allergy status to narcotic agent - Allergy status to other drugs, medicaments and biological substances - Allergy status to penicillin - Essential (primary) hypertension - Hormone replacement therapy - terminal computer operator (current) use of aspirin - Other forms of dyspnea - Other continuous churn buttermaker (current) drug therapy - Presence of cardiac pacemaker - Shortness of breath 03/04/2024 16:15 [facility] [place] TYPE: Emergency COMPLAINT: - LOW BLOOD PRESSURE DIAGNOSES: - Allergy status to narcotic agent - Allergy status to other drugs, medicaments and biological substances - Allergy status to penicillin - Essential (primary) hypertension - Hormone replacement therapy - Hypotension, unspecified - snf (current) use of aspirin - Other continuous churn buttermaker (current) drug therapy - Prediabetes - Sleep apnea, unspecified 02/14/2024 17:20 [facility] [place] TYPE: Emergency COMPLAINT: - TRAUMA ADULT DIAGNOSES: - Allergy status to narcotic agent - Allergy status to other drugs, medicaments and biological substances - Allergy status to penicillin - Contusion of right back wall of thorax, initial encounter - Essential (primary) hypertension - Fall from chair, initial encounter - snf (current) use of antithrombotics/antiplatelets - Other continuous churn buttermaker (current) drug therapy - Pain in thoracic [...] initial encounter - Hormone replacement therapy - terminal computer operator (current) use of aspirin - Other fdc (current) drug therapy - Prediabetes - Presence [...] (primary) hypertension - Hormone replacement therapy - terminal computer operator (current) use of aspirin - Other fdc (current) drug therapy - Prediabetes - Presence [...] (primary) hypertension - Hormone replacement therapy - terminal computer operator (current) use of aspirin - Nausea - Presence of cardiac pacemaker - Urinary tract infection, site not specified INPATIENT VISIT TRACKING (12 MO.) 11/06/2024 09:[address] [facility] [place] TYPE: Medical Surgical COMPLAINT: - VERTEBRAL COMPRESSION FX CHF EXACERBATION DIAGNOSES: - Acquired absence of other specified parts of digestive tract - Acquired absence of other specified parts of digestive tract - Acute on chronic systolic (congestive) heart failure - Acute on chronic systolic (congestive) heart failure - Acute respiratory failure with hypoxia - Acute respiratory failure with hypoxia - Allergy status to narcotic agent - Allergy status to narcotic agent - Allergy status to other drugs, medicaments and biological substances - Allergy status to other drugs, medicaments and biological substances - Allergy status to penicillin - Allergy status to penicillin - Atherosclerotic heart disease of [place] coronary artery without angina pectoris - Atherosclerotic heart disease of [place] coronary artery without angina pectoris - Benign prostatic hyperplasia without lower urinary tract symptoms - Benign prostatic hyperplasia without lower urinary tract symptoms - Claustrophobia - Claustrophobia - Collapsed vertebra, not elsewhere classified, lumbar region, initial encounter for fracture - Constipation, unspecified - Constipation, unspecified - Gastro-esophageal reflux disease without esophagitis - Gastro-esophageal reflux disease without esophagitis - Hypothyroidism, unspecified - Hypothyroidism, unspecified - snf (current) use of antithrombotics/antiplatelets - terminal computer operator (current) use of antithrombotics/antiplatelets - terminal computer operator (current) use of aspirin - terminal computer operator (current) use of aspirin - Obstructive sleep apnea (adult) (pediatric) - Obstructive sleep apnea (adult) (pediatric) - Other continuous churn buttermaker (current) drug therapy - Other continuous churn buttermaker (current) drug therapy - Other specified postprocedural states - Other specified postprocedural states - Personal history of transient ischemic attack (TIA), and cerebral infarction without residual deficits - Personal history of transient ischemic attack (TIA), and cerebral infarction without residual deficits - Pneumonia, unspecified organism - Pneumonia, unspecified organism - Presence of cardiac pacemaker - Presence of cardiac pacemaker - Pulmonary hypertension, unspecified - Pulmonary hypertension, unspecified - Type 2 diabetes mellitus without complications - Type 2 diabetes mellitus without complications 06/25/2024 13:[address] [facility] [place] [...] to penicillin - Atherosclerotic heart disease of [place] coronary artery without angina pectoris - Benign [...] - Hypotension, unspecified - Hypothyroidism, unspecified - terminal computer operator (current) use of antithrombotics/antiplatelets - terminal computer operator (current) use of aspirin - Obstructive sleep apnea (adult) (pediatric) - Other specified disorders of urethra - Other toxic encephalopathy - Personal history of transient ischemic attack (TIA), and cerebral infarction without residual deficits - Pneumonia, unspecified organism - Presence of cardiac pacemaker - Presence of other vascular implants and grafts [email or web address]
[2024-12-01] MEDS ORDERED: TRAMADOL HCL50 MG PO (12:00)
[2024-12-01] MEDS ORDERED: SODIUM CHLORIDE 0.9% 1,000 ML IV ONE (13:30)
[2024-12-01] MEDS ORDERED: ondansetron HCL 4 MG/2 ML VIAL IV ONE (14:00)
[2024-12-01 14:07] LABS: BASOPHILS 1.1 % (0-2); EOSINOPHILS 1.2 % (0-6); HEMATOCRIT 35.9 % (35.0-50.0); HEMOGLOBIN 12.3 g/dL (12.0-18.0); LYMPHOCYTES 11.3 % (24-44); MCH 30.4 (27-36); MCHC 34.1 g/dl (30-36); MCV 89.2 fl (81-99); MONOCYTES 6.6 % (0-12); NEUTROPHILS 79.8 % (39-80); PLATELET COUNT 179 K/uL (140-440); RBC 4.03 M/ul (4.3-5.7); RDW 17.2 (10.5-15.0)
[2024-12-01 14:22] LABS: ALBUMIN 3.3 g/dL (3.4-5.0); ALBUMIN/GLOBULIN RATIO 1.27 (1.1-2.4); ANION GAP -0.1 (7-21); BILIRUBIN, TOTAL 1.9 mg/dL (0.2-1.0); BUN/CREATININE RATIO 18.8 (6.0-28.6); CALCIUM 8.5 mg/dL (8.5-10.1); CREATININE, SERUM 1.17 mg/dL (0.70-1.30); POTASSIUM 3.9 mmol/L (3.5-5.1); PROTEIN, TOTAL 5.9 g/dL (6.4-8.2)
[2024-12-01 15:34] VITALS: BP 107/57
--- NOTE | 2024-12-01 17:51 | EKG ---
[facility] [address] [place] [address] Signed AV dual-paced rhythm Biventricular pacemaker detected Abnormal ECG When compared with ECG of 06-NOV-2024 13:16, Vent. rate has decreased BY 2 BPM Confirmed by Sanjiv Sharma DO ([id number]) on 12/01/2024 5:51:10 PM Electronically Signed By: SANJIV SHARMA DO 12/01/24 175 PATIENT NAME: GARTHChadFRANCI Electrocardiogram DATE OF : 49 PHYSICIAN: SANJIV SHARMA DO REPORT #: [id number] REPORT IS CONFIDENTIAL AND NOT TO BE RELEASED WITHOUT AUTHORIZATION
== END 2024-12-01 15:34 | disposition home or self-care (01) ==
LOC: ED 11:46
PROVIDERS: Emergency Medicine
DX: L89.151 Pressure ulcer of sacral region, stage 1 (principal); I11.0 Hypertensive heart disease with heart failure; I50.9 Heart failure, unspecified; G47.30 Sleep apnea, unspecified; R73.03 Prediabetes; Z99.81 Dependence on supplemental oxygen; Z88.0 Allergy status to penicillin; Z88.5 Allergy status to narcotic agent; Z88.8 Allergy status to other drugs, medicaments and biological substances; Z79.01 Long term (current) use of anticoagulants; Z79.82 Long term (current) use of aspirin; Z79.890 Hormone replacement therapy; Z79.899 Other long term (current) drug therapy
CPT/HCPCS: 36415; 80053; 84484; 85025; 93005; 93010; 96374; 99284-25; J2405; J7030

== ENCOUNTER 2024-12-15 15:48 | Emergency (ER) | payer MEDICARE, OTHER ==
[~2024-12-15] VITALS: Ht 177.8 cm; Wt 91.4 kg
[~2024-12-15 15:48] MED LIST changes: +TRAMADOL HCL50 MG PO
--- OUTSIDE RECORDS SUMMARY | 2024-12-15 15:55 | XMS ---
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 Care History Medical/Surgical 05/27/2019 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 Josie VISIT COUNT (12 MO.) 12 [facility] 2 [facility] Don (Benny Zapata) TOTAL 14 NOTE: Visits indicate total known visits. ED/UCC VISIT TRACKING (12 MO.) 12/15/2024 15:49 [facility] [place] TYPE: Emergency COMPLAINT: - SHORTNESS OF BREATH/CHEST PAIN 12/01/2024 11:47 [facility] [place] TYPE: Emergency COMPLAINT: - BACK PAIN DIAGNOSES: - Allergy status to narcotic agent - Allergy status to other drugs, medicaments and biological substances - Allergy status to penicillin - Dependence on supplemental oxygen - Heart failure, unspecified - Hormone replacement therapy - Hypertensive heart disease with heart failure - athletics teacher (current) use of anticoagulants - [facility] (current) use of aspirin - Other fdc (current) drug therapy - Prediabetes - Pressure ulcer of sacral region, stage 1 - Sleep apnea, unspecified 11/05/2024 19:32 [facility] [place] TYPE: Emergency COMPLAINT: - BACK PAIN 11/02/2024 05:04 [facility] [place] TYPE: Emergency COMPLAINT: - HIP/SLEEP/BREATHING ISSUES DIAGNOSES: - Allergy status to narcotic agent - Allergy status to other drugs, medicaments and biological substances - Allergy status to penicillin - Heart failure, unspecified - Hypertensive heart disease with heart failure - [facility] (current) use of anticoagulants - [facility] (current) use of aspirin - Other motor runner (current) drug therapy - Shortness of breath [...] body of left hand, initial encounter - [facility] (current) use of anticoagulants - Other chest [...] 2 diabetes mellitus without complications [facility] DIAGNOSES: - Hypotension, unspecified - Weakness - Weakness 08/17/2024 22:26 [facility] Benny BATES ([place]) TYPE: Emergency DIAGNOSES: - Contusion of left [...] (primary) hypertension - Hormone replacement therapy - [facility] (current) use of aspirin - Other forms [...] Hormone replacement therapy - Hypotension, unspecified - [facility] (current) use of aspirin - Other fdc [...] - Fall from chair, initial encounter - [facility] (current) use of antithrombotics/antiplatelets - Other motor runner (current) drug therapy - Pain in thoracic [...] initial encounter - Hormone replacement therapy - athletics teacher (current) use of aspirin - Other motor runner (current) drug therapy - Prediabetes - Presence [...] (primary) hypertension - Hormone replacement therapy - athletics teacher (current) use of aspirin - Other [...] (primary) hypertension - Hormone replacement therapy - athletics teacher (current) use of aspirin - Nausea - Presence of cardiac pacemaker - Urinary tract infection, site not specified INPATIENT VISIT TRACKING (12 MO.) 11/06/2024 09:50 [facility] [place] TYPE: Medical Surgical COMPLAINT: - VERTEBRAL [...] to penicillin - Atherosclerotic heart disease of [place] coronary artery without angina pectoris - Atherosclerotic heart disease of [place] coronary artery without angina pectoris - Benign [...] - Hypothyroidism, unspecified - Hypothyroidism, unspecified - athletics teacher (current) use of antithrombotics/antiplatelets - [facility] (current) use of antithrombotics/antiplatelets - athletics teacher (current) use of aspirin - athletics teacher (current) use of aspirin - Obstructive sleep apnea (adult) (pediatric) - Obstructive sleep apnea (adult) (pediatric) - Other motor runner (current) drug therapy - Other fdc (current) drug therapy - Other specified postprocedural [...] to penicillin - Atherosclerotic heart disease of [place] coronary artery without angina pectoris - Benign [...] - Hypotension, unspecified - Hypothyroidism, unspecified - athletics teacher (current) use of antithrombotics/antiplatelets - athletics teacher (current) use of aspirin - Obstructive sleep apnea (adult) (pediatric) - Other specified disorders of urethra - Other toxic encephalopathy - Personal history of transient ischemic attack (TIA), and cerebral infarction without residual deficits - Pneumonia, unspecified organism - Presence of cardiac pacemaker - Presence of other vascular implants and grafts [email or web address]
[2024-12-15 16:09] LABS: BASOPHILS 0.8 % (0-2); EOSINOPHILS 0.8 % (0-6); HEMOGLOBIN 12.1 g/dL (12.0-18.0); LYMPHOCYTES 10.7 % (24-44); MCH 30.8 (27-36); MCHC 34.7 g/dl (30-36); MONOCYTES 7.1 % (0-12); NEUTROPHILS 80.6 % (39-80); PLATELET COUNT 173 K/uL (140-440); RBC 3.93 M/ul (4.3-5.7); RDW 17.8 (10.5-15.0)
[2024-12-15 16:26] LABS: ALBUMIN 3.4 g/dL (3.4-5.0); ALBUMIN/GLOBULIN RATIO 1.31 (1.1-2.4); ANION GAP 3.8 (7-21); BILIRUBIN, TOTAL 2.7 mg/dL (0.2-1.0); BUN/CREATININE RATIO 15.12 (6.0-28.6); CALCIUM 8.3 mg/dL (8.5-10.1); CREATININE, SERUM 1.19 mg/dL (0.70-1.30); MAGNESIUM 2.3 mg/dL (1.8-2.4); POTASSIUM 3.8 mmol/L (3.5-5.1)
--- NOTE | 2024-12-15 17:59 | EKG ---
[facility] [address] [place], [place] [address] Signed AV dual-paced rhythm Biventricular pacemaker detected Abnormal ECG No previous ECGs available Confirmed by Suze Sharam DO ([id number]) on 12/15/2024 5:59:32 PM Electronically Signed By: SUZE SHARMA DO 12/15/24 1759 PATIENT NAME: FRANCI VELÁZQUEZ Electrocardiogram DATE OF : 49 PHYSICIAN: SUZE SHARMA DO REPORT #: [id number] REPORT IS CONFIDENTIAL AND NOT TO BE RELEASED WITHOUT AUTHORIZATION
[2024-12-15 18:20] VITALS: BP 129/82
== END 2024-12-15 18:20 | disposition home or self-care (01) ==
LOC: ED 15:48
PROVIDERS: Emergency Medicine
DX: R07.89 Other chest pain (principal); I10 Essential (primary) hypertension; I50.9 Heart failure, unspecified; Z88.0 Allergy status to penicillin; Z88.5 Allergy status to narcotic agent; Z88.8 Allergy status to other drugs, medicaments and biological substances
CPT/HCPCS: 36415; 71045; 80053; 83735; 84484; 85025; 93005; 93010; 99285-25

== ENCOUNTER 2025-07-12 10:31 | Emergency (ER) | payer MEDICARE, OTHER ==
[~2025-07-12] VITALS: Ht 177.8 cm; Wt 85.0 kg
--- OUTSIDE RECORDS SUMMARY | ~2025-07-12 | XMS | Continuity of Care Document ---
Demographics + + + | Address | [address] | | | [place] [address] | + + + | Preferred Language | Unknown | + + + | Marital Status | | + + + | Uatsdin Affiliation | Unknown | + + + | Race | White | + + + | Ethnic Group | Not or | + + + Author + + + | Author | [facility] | + + + | Organization | [facility] | + + + | Address | [address] | | | [place] [address] | + + + | Phone | | + + + Care Team Providers + + + + | Care Tooth Grinder Name | Role | Phone | + + + + Unavailable | Unavailable | + + + + Allergies No information. Encounters No information. Functional Status No information. Immunizations No information. Medications + + + + | date | description | facility | + + + + | (no date) | LISINOPRIL | [facility] | | | | [facility] | + + + + | (no date) | EMPAGLIFLOZIN | [facility] | | | | [facility] | + + + + | (no date) | FLUTICASONE PROPIONATE | [facility] | | | | [facility] | + + + + | (no date) | OMEPRAZOLE | [facility] | | | | [facility] | + + + + | (no date) | FUROSEMIDE | [facility] | | | | [facility] | + + + + | (no date) | SPIRONOLACTONE | [facility] | | | | [facility] | + + + + | (no date) | DIGOXIN | [facility] | | | | [facility] | + + + + | (no date) | CLOPIDOGREL BISULFATE | [facility] | | | | [facility] | + + + + | (no date) | LISINOPRIL | [facility] | | | | [facility] | + + + + | (no date) | Loratadine | [facility] | | | | [facility] | + + + + | (no date) | SPIRONOLACTONE | [facility] | | | | [facility] | + + + + | (no date) | FUROSEMIDE | [facility] | | | | [facility] | + + + + | (no date) | LISINOPRIL | [facility] | | | | [facility] | + + + + | (no date) | LACTULOSE | [facility] | | | | [facility] | + + + + | (no date) | TIOTROPIUM BROMIDE | [facility] | | | | [facility] | + + + + | (no date) | ATORVASTATIN CALCIUM | [facility] | | | | [facility] | + + + + | (no date) | NYSTATIN | [facility] | | | | [facility] | + + + + | (no date) | ALBUTEROL SULFATE MDI | [facility] | | | (HFA) | [facility] | + + + + | (no date) | AMIODARONE HCL | [facility] | | | | [facility] | + + + + | (no date) | TRAMADOL HCL | [facility] | | | | [facility] | + + + + | (no date) | AMIODARONE HCL | [facility] | | | | [facility] | + + + + | (no date) | BISOPROLOL FUMARATE | [facility] | | | | [facility] | + + + + | (no date) | CHOLECALCIFEROL (VITAMIN | [facility] | | | D3) | [facility] | + + + + | (no date) | METFORMIN HCL | [facility] | | | | [facility] | + + + + | (no date) | metFORMIN HCL | [facility] | | | | [facility] | + + + + | (no date) | TAMSULOSIN HCL | [facility] | | | | [facility] | + + + + | (no date) | METOPROLOL SUCCINATE | [facility] | | | | [facility] | + + + + | (no date) | METOPROLOL SUCCINATE | [facility] | | | | [facility] | + + + + | (no date) | LEVOTHYROXINE SODIUM | [facility] | | | | [facility] | + + + + | (no ) | FLUTICASONE PROPIONATE | [facility] | | | | [facility] | + + + + | (no ) | LEVOTHYROXINE SODIUM | [facility] | | | | [facility] | + + + + | (no ) | LEVOTHYROXINE SODIUM | [facility] | | | | [facility] | + + + + Problems No information. Procedures No information. Results/Labs No information. Social History +--------+ + + | date | description | facility | +--------+ + + Vital Signs No information."
--- OUTSIDE RECORDS SUMMARY | 2025-07-12 10:32 | XMS ---
PreManage Notification: FRANCI VELÁZQUEZ Security Field Marketing Lead Events No recent Security Events currently on file CRITERIA MET - Group Notification - PDMP CARE PROVIDERS KALEIGH ANDREWS Internal Medicine Current PHONE: Unknown [place] has no Care Guidelines for this patient. Care History Medical/Surgical 05/27/2019 [facility] \R\- PATIENT HAS A MANAGER APPOINTMENT DR BAZAN AT [facility]. Josie VISIT COUNT (12 MO.) [address] ([place] [address]) TOTAL 8 NOTE: Visits indicate total known visits. ED/UCC VISIT TRACKING (12 MO.) 07/12/2025 10:31 [facility] [place] TYPE: Emergency COMPLAINT: - WOUND CHECK 12/15/2024 15:49 [facility] [place] TYPE: Emergency COMPLAINT: - SHORTNESS OF BREATH/CHEST PAIN DIAGNOSES: - Allergy status to narcotic agent - Allergy status to other drugs, medicaments and biological substances - Allergy status to penicillin - Chest pain, unspecified - Essential (primary) hypertension - Heart failure, unspecified - Other chest pain 12/01/2024 11:47 [facility] [place] TYPE: Emergency COMPLAINT: - BACK PAIN DIAGNOSES: - Allergy status to narcotic agent - Allergy status to other drugs, medicaments and biological substances - Allergy status to penicillin - Dependence on supplemental oxygen - Heart failure, unspecified - Hormone replacement therapy - Hypertensive heart disease with heart failure - remote computer terminal operator (current) use of anticoagulants - remote computer terminal operator (current) use of aspirin - Other predatory animal exterminator (current) drug therapy - Prediabetes - Pressure [...] Hypertensive heart disease with heart failure - group home (current) use of anticoagulants - group home (current) use of aspirin - Other predatory animal exterminator (current) drug therapy - Shortness of breath [...] body of left hand, initial encounter - group home (current) use of anticoagulants - Other chest pain - Other foreign body or object entering through skin, initial encounter - Other long-term (current) drug therapy - Personal history of transient ischemic attack (TIA), and cerebral infarction without residual deficits - Presence of automatic (implantable) cardiac defibrillator - Presence of coronary angioplasty implant and graft - Sleep apnea, unspecified - Type 2 diabetes mellitus without complications 09/16/2024 22:21 [facility] Benny BATES ([place]) TYPE: Emergency DIAGNOSES: - Hypotension, unspecified - Weakness - Weakness 08/17/2024 22:26 [facility] Benny BATES (Benny Zapata) TYPE: Emergency DIAGNOSES: - Contusion of left upper arm, initial encounter - Strain of muscle, fascia and tendon of other parts of biceps, left arm, initial encounter - Arm Injury INPATIENT VISIT TRACKING (12 MO.) 11/06/2024 09:50 [...] to penicillin - Atherosclerotic heart disease of [place] coronary artery without angina pectoris - Atherosclerotic heart disease of [place] coronary artery without angina pectoris - Benign [...] - Hypothyroidism, unspecified - Hypothyroidism, unspecified - remote computer terminal operator (current) use of antithrombotics/antiplatelets - remote computer terminal operator (current) use of antithrombotics/antiplatelets - group home (current) use of aspirin - remote computer terminal operator (current) use of aspirin - Obstructive sleep apnea (adult) (pediatric) - Obstructive sleep apnea (adult) (pediatric) - Other predatory animal exterminator (current) drug therapy - Other long-term (current) drug therapy - Other specified postprocedural [...] - Type 2 diabetes mellitus without complications [email or web address]
[2025-07-12 12:27] VITALS: BP 112/66
== END 2025-07-12 12:20 | disposition home or self-care (01) ==
LOC: ED 10:31
DX: L89.159 Pressure ulcer of sacral region, unspecified stage (principal); I11.0 Hypertensive heart disease with heart failure; I50.9 Heart failure, unspecified; Z79.82 Long term (current) use of aspirin; Z79.899 Other long term (current) drug therapy; Z79.02 Long term (current) use of antithrombotics/antiplatelets; Z88.0 Allergy status to penicillin; Z88.5 Allergy status to narcotic agent; Z88.8 Allergy status to other drugs, medicaments and biological substances
CPT/HCPCS: 99283